=== PATIENT | male | born 1955 | race Caucasian/White ===

== ENCOUNTER 2017-10-19 22:30 | Inpatient (IN) | payer MEDICARE ==
[~2017-10-19] VITALS: Ht 170.2 cm; Wt 63.3 kg
[~2017-10-19 22:30] MED LIST: ACETAMINOPHEN 650 MG SUPP RECTAL PRN; DULO20 PO; FAMO1TAB37 PO; FOSA70TA PO; GABA100C4 PO; HYDR-2374 PO; LORTA5 PO; NALOXONE HCL 0.4 MG/ML AMP IV PUSH PRN; OMEP20TA OR; PREG25 PO; PROCHLORPERAZINE 25 MG SUPP RECTAL PRN; PROM25TA5 PO; SYMB80AE INH; WARF-60 PO; WARF4TAB52 PO; ZOFR4TAB3 SL
[2017-10-19 23:00] VITALS: BP 122/86; PULSE 100; RESP 20; TEMP 96.9; O2SAT 95
[2017-10-19] MEDS: SODIUM CHLOR 0.9% 1000 ML INJ 1,000 ML IV SCH (23:15)
[2017-10-19] MEDS: MORPHINE SULFATE 2 MG/ML SYRINGE IV PUSH PRN (23:24)
[2017-10-19] MEDS: SODIUM CHLORIDE 0.9% FLUSH 10 ML FLUSH IV FLUSH SCH (23:30)
[2017-10-20] MEDS: SODIUM CHLOR 0.9% 1000 ML INJ 1,000 ML IV SCH ×3 (07:00→19:46)
[2017-10-20] MEDS: MORPHINE SULFATE 2 MG/ML SYRINGE IV PUSH PRN ×4 (07:49→22:47)
[2017-10-20 08:00] VITALS: BP 142/61; PULSE 74; RESP 15; TEMP 97.8; O2SAT 93
[2017-10-20 08:52] LABS: AUTOMATED NEUTROPHIL # 2.8 TH/MM3 (1.8-7.7); BASOPHIL % 0.7 % (0.0-2.0); EOSINOPHIL # 0.3 TH/MM3 (0-0.4); EOSINOPHIL % 6.7 % (0.0-4.0); HEMATOCRIT 36.6 % (39.0-51.0); HEMOGLOBIN 11.7 GM/DL (13.0-17.0); LYMPH % 19.8 % (9.0-44.0); LYMPHOCYTE # 0.9 TH/MM3 (1.0-4.8); MEAN CELL VOLUME 92.6 FL (80.0-100.0); MEAN CORPUSCULAR HEMOGLOBIN 29.5 PG (27.0-34.0); MEAN CORPUSCULAR HGB CONC 31.9 % (32.0-36.0); MEAN PLATELET VOLUME 6.6 FL (7.0-11.0); MONO % 9.2 % (0.0-8.0); MONOCYTE # 0.4 TH/MM3 (0-0.9); NEUT % 63.6 % (16.0-70.0); PLATELET COUNT 179 TH/MM3 (150-450); RED BLOOD COUNT 3.95 MIL/MM3 (4.50-5.90); RED CELL DISTRIBUTION WIDTH 16.8 % (11.6-17.2); WHITE BLOOD COUNT 4.4 TH/MM3 (4.0-11.0)
[2017-10-20] MEDS: SODIUM CHLORIDE 0.9% FLUSH 10 ML FLUSH IV FLUSH SCH ×2 (09:00→22:45)
[2017-10-20 09:01] LABS: CHLORIDE 109 MEQ/L (98-107); SODIUM (NA) 139 MEQ/L (136-145)
[2017-10-20 09:04] LABS: CALCIUM 8.1 MG/DL (8.5-10.1); INTERNATIONAL NORMALIZED RATIO 4.6 RATIO; PROTHROMBIN TIME - PATIENT 45.8 SEC (9.8-11.6)
[2017-10-20 09:05] LABS: ALBUMIN 3.2 GM/DL (3.4-5.0); BICARBONATE 21.4 MEQ/L (21.0-32.0); BLOOD UREA NITROGEN 10 MG/DL (7-18); GLUCOSE,RANDOM 84 MG/DL (74-106)
[2017-10-20 09:08] LABS: ALT (GPT) 28 U/L (12-78); AST (GOT) 36 U/L (15-37); CREATININE 0.53 MG/DL (0.60-1.30); GLOMERULAR FILTRATION RATE 157 ML/MIN (>89)
[2017-10-20 09:10] LABS: TOTAL BILIRUBIN ADULT 0.6 MG/DL (0.2-1.0); TOTAL PROTEIN 6.4 GM/DL (6.4-8.2)
[2017-10-20 09:11] LABS: ALKALINE PHOSPHATASE 65 U/L (45-117)
[2017-10-20] MEDS ORDERED: POTASSIUM CHLORIDE 25 MEQ EFFERVESCENT TAB PO ONE (10:00)
[2017-10-20] MEDS ORDERED: PHYTONADIONE 5 MG TAB PO ONE (10:00)
--- NOTE | 2017-10-20 10:05 | PD.CONS ---
HPI History of Present Illness This is a 62 year old admitted on 10/19/17. Patient was in his usual state of health up until 1-2 weeks ago when he noted dysphagia complete with nausea and vomiting. Patient states that he cut his food up into very small pieces and chew a lot but would have some projectile vomiting of food and liquid while trying to eat. Patient is currently on warfarin therapy secondary to aortic valve replacement surgery and is monitored very closely per his PCP. He had a normal INR but when was rechecked in 1 month INR was 8. Patient was being treated per his PCP but was advised to come to the emergency room for further treatment regimen. Patient's last hemoglobin was noted to be 10.9 hematocrit 32.3 on outpatient basis now hemoglobin is 11.7. Previous recent labs show AST at 46 ALT at 34, today on 10/20/17 bilirubin and LFTs are normal. Patient notes alcohol usage approximately 20 years ago now a rare occasional 1 drink on a monthly basis. Patient does note increased Tylenol usage throughout his years. Patient currently denies any diarrhea or constipation, and no rectal bleeding. Patient denies any abdominal pain. Patient has significant history of osteoporosis, degenerative disc disease, COPD , falls, and aortic valvular replacement. Patient does note some mild cuts , with some mild bleeding over the past few days. (Charlotte Sawyer) PFSH Past Medical History DD D Osteoporosis Falls COPD Aortic valve disease Right brain, probable CVA Right groin bleed Inguinal hernias X 2. Currently on long-term Coumadin therapy Past Surgical History Aortic valve replacement Hernias 2 (Charlotte Sawyer) Coded Allergies: No Known Allergies (Unverified Allergy, Unknown, 10/19/17) Medications Administered Medications Medications (Trade) Dose Ordered Sig/Denae Route PRN Reason Start Time Stop Time Status Last Admin Dose Admin Sodium Chloride 1,000 ml @ 100 mls/hr Q10H IV 10/19/17 21:00 10/20/17 07:00 Sodium Chloride (NS Flush) 2 ml BID IV FLUSH 10/19/17 21:00 10/19/17 23:30 Morphine Sulfate (Morphine Inj) 2 mg Q3H PRN IV PUSH pain > 4 10/19/17 23:30 10/20/17 07:49 Family History Valvular heart disease Social History Nonsmoker, non-alcohol for 20 years, no illicit drugs (Charlotte Sawyer) Review of Systems Gastrointestinal: COMPLAINS OF: Difficulty Swallowing Hematologic/lymphatic: COMPLAINS OF: Bruising (Charlotte Sawyer) GI Exam Vitals I&O Vital Signs Date Time Temp Pulse Resp B/P (MAP) Pulse Ox O2 Delivery O2 Flow Rate FiO2 10/19/17 23:00 96.9 100 20 122/86 (98) 95 I/O 10/19/17 10/19/17 10/19/17 10/20/17 10/20/17 10/20/17 07:00 15:00 23:00 07:00 15:00 23:00 Intake Total 0 ml Balance 0 ml Intake Oral 0 ml # Voids 2 # Bowel Movements 0 Laboratory Test 10/20/17 08:44 White Blood Count 4.4 TH/MM3 Red Blood Count 3.95 MIL/MM3 Hemoglobin 11.7 GM/DL Hematocrit 36.6 % Mean Corpuscular Volume 92.6 FL Mean Corpuscular Hemoglobin 29.5 PG Mean Corpuscular Hemoglobin Concent 31.9 % Red Cell Distribution Width 16.8 % Platelet Count 179 TH/MM3 Mean Platelet Volume 6.6 FL Neutrophils (%) (Auto) 63.6 % Lymphocytes (%) (Auto) 19.8 % Monocytes (%) (Auto) 9.2 % Eosinophils (%) (Auto) 6.7 % Basophils (%) (Auto) 0.7 % Neutrophils # (Auto) 2.8 TH/MM3 Lymphocytes # (Auto) 0.9 TH/MM3 Monocytes # (Auto) 0.4 TH/MM3 Eosinophils # (Auto) 0.3 TH/MM3 Basophils # (Auto) 0.0 TH/MM3 CBC Comment DIFF FINAL Differential Comment Prothrombin Time 45.8 SEC Prothromb Time International Ratio 4.6 RATIO Blood Urea Nitrogen 10 MG/DL Creatinine 0.53 MG/DL Random Glucose 84 MG/DL Total Protein 6.4 GM/DL Albumin 3.2 GM/DL Calcium Level 8.1 MG/DL Alkaline Phosphatase 65 U/L Aspartate Amino Transf (AST/SGOT) 36 U/L Alanine Aminotransferase (ALT/SGPT) 28 U/L Total Bilirubin 0.6 MG/DL Sodium Level 139 MEQ/L Potassium Level 3.4 MEQ/L Chloride Level 109 MEQ/L Carbon Dioxide Level 21.4 MEQ/L Anion Gap 9 MEQ/L Estimat Glomerular Filtration Rate 157 ML/MIN Physical Examination HEENT: Pupils round and reactive to light; normocephalic; atraumatic, taking few ice chip without cough NECK: Neck is supple, no JVD CHEST: Mild diminished BS CARDIAC: Regular rate and rhythm ABDOMEN: Soft, flat,nondistended, nontender; no hepatosplenomegaly; bowel sounds are present in all four quadrants. EXTREMITIES: No LE edema. SKIN: Normal; no rash; no jaundice. LIEN SEARCHER: No focal deficits; alert and oriented times three. (Charlotte Sawyer) Assessment and Plan Plan Dysphasia with nausea and vomiting and intolerance of food for the past 1-[address] GI [address] Benjamin and [place] Anemia probable secondary to his chronic disease, current hemoglobin today 11.7 Coagulopathy, patient has been on Coumadin up until yesterday PT INR is now 4.6. Recent AST level noted to be 46 now normalized during this hospital stay Plan Consent for EGD hopefully tomorrow as long as patient's INR is 1.5 or less. Discussed plan of care with patient's attending, receiving vitamin K Nothing by mouth at midnight until PT/INR is evaluated IV hydration continue IV fluids at 100 cc an hour Monitor labs, monitor for any acute bleeding and transfuse as needed IV PPI Anti-emetics Supportive care Patient has been evaluated per myself and Dr. Main, note was done on his behalf (Charlotte Sawyer) Physician Comments Patient seen and examined Agree with above Continue with current supportive care Monitor labs We will need to correct his coagulopathy we will be proceeding with an upper endoscopy with possible dilation tomorrow (Peter Main MD) Charlotte Sawyer Oct 20, 2017 10:05 Peter Main MD Oct 20, 2017 20:23
[2017-10-20] MEDS: GABAPENTIN 100 MG CAP PO SCH ×2 (10:06→22:46)
[2017-10-20] MEDS: DULoxetine HCl DR 20 MG CAP PO SCH (10:06)
[2017-10-20] MEDS: BUDESONIDE-FORMOTEROL 80/4.5 MCG INHALER INH SCH ×2 (10:06→22:48)
[2017-10-20] MEDS: PREGABALIN 25 MG CAP PO SCH ×2 (10:07→22:46)
[2017-10-20] MEDS ORDERED: PANTOPRAZOLE SODIUM 40 MG VIAL IV PUSH SCH (11:00)
--- NOTE | 2017-10-20 11:20 | HHI.HP ---
[facility] Regan Rogers MD Admission Diagnosis Diagnoses: Chief Complaint: Trouble swallowing Travel History International Travel<30 Days: No Contact w/Intl Traveler <30 Da: No Traveled to Known Affected Are: No History of Present Illness This patient is a 62-year-old gentleman with a history of COPD and mechanical aortic valve replacement who came to the emergency room because of progressive dysphagia over the last 2 weeks. He had associated nausea and vomiting and noted some increased vomiting to the point of projectile vomiting of food and liquid. He normally takes warfarin because of an aortic valve replacement which was done in 2012. He had noticed increased bleeding in the gums and the bruising in the skin and had some bleeding on his pillow. He called his primary care doctor and was found to have elevated INR over 8. He still had some bleeding and was not able to take the vitamin K that was prescribed because was unavailable at the pharmacy. His primary care provider urged to come to the hospital for further evaluation. Here his INR is 4.6. Patient's bleeding has subsided somewhat. He has trouble clearing his own secretions and trouble swallowing even now. He notes no chest pain or shortness of breath. He is quite frail and notes that he has lost quite a bit of weight over the last several months. His baseline weight was 172 and he had gotten down to 114 with some improvement of recent weight of 125. Patient is admitted to observation unit for further evaluation. There is no intestinal bleeding and the patient does not endorse any diarrhea or constipation. His pain is minimal at this point. Review of Systems Constitutional: COMPLAINS OF: Fatigue, Weight loss, DENIES: Diaphoretic episodes, Fever, Weight gain, Chills, Dizziness, Change in appetite, Night Sweats Endocrine: DENIES: Heat/cold intolerance, Polydipsia, Polyuria, Polyphagia Eyes: DENIES: Blurred vision, Diplopia, Eye inflammation, Eye pain, Vision loss , Photosensitivity, Double Vision Ears, nose, mouth, throat: COMPLAINS OF: Epistaxis, DENIES: Tinnitus, Hearing loss, Vertigo, Nasal discharge, Oral lesions, Throat pain, Hoarseness, Ear Pain , Running Nose, Sinus Pain, Toothache, Odynophagia Respiratory: DENIES: Apneas, Cough, Snoring, Wheezing, Hemoptysis, Sputum production, Shortness of breath Cardiovascular: DENIES: Chest pain, Palpitations, Syncope, Dyspnea on Exertion , PND, Lower Extremity Edema, Orthopnea, Claudication Gastrointestinal: DENIES: Abdominal pain, Black stools, Bloody stools, Constipation, Diarrhea, Nausea, Vomiting, Difficulty Swallowing, Anorexia Genitourinary: DENIES: Sexual dysfunction, Urinary frequency, Urinary incontinence, Urgency, Hematuria, Dysuria, Nocturia, Penile Discharge, Testicular Pain, Testicular Swelling Musculoskeletal: COMPLAINS OF: Joint pain, Back pain, DENIES: Muscle aches, Stiffness, Joint Swelling, Neck pain Integumentary: DENIES: Abnormal pigmentation, Nail changes, Pruritus, Rash Hematologic/lymphatic: COMPLAINS OF: Bruising, DENIES: Lymphadenopathy Immunologic/allergic: DENIES: Eczema, Urticaria Neurologic: DENIES: Abnormal gait, Headache, Localized weakness, Paresthesias, Seizures, Speech Problems, Tremor, Poor Balance Psychiatric: DENIES: Anxiety, Confusion, Mood changes, Depression, Hallucinations, Agitation, Suicidal Ideation, Homicidal Ideation, Delusions Except as stated in HPI: all other systems reviewed are Neg Past Family Social History Past Medical History COPD Back pain Mechanical aortic valve replaced 2012 History of intracranial bleed in 2014 while on Coumadin Chronic numbness of the left side Osteoporosis and neuropathy Past Surgical History Aortic valve replacement Hernias 2 Reported Medications Reviewed in the EMR Allergies: Coded Allergies: No Known Allergies (Unverified Allergy, Unknown, 10/19/17) Active Ordered Medications Reviewed in the EMR Family History mother had diabetes and from coronary disease at 84, father from cardiac issues at a 3 needed cardiac valve replacement Social History No tobacco or alcohol dependency Lives with his Physical Exam Vital Signs Vital Signs Date Time Temp Pulse Resp B/P (MAP) Pulse Ox O2 Delivery O2 Flow Rate FiO2 10/20/17 08:00 97.8 74 15 142/61 (88) 93 10/19/17 23:00 96.9 100 20 122/86 (98) 95 Physical Exam GENERAL: This is a well-nourished, well-developed patient, in no apparent distress. SKIN: No rashes, ecchymoses or lesions. Cool and dry. HEAD: Atraumatic. Normocephalic. No temporal or scalp tenderness. EYES: Pupils equal round and reactive. Extraocular motions intact. No scleral icterus. No injection or drainage. ENT: Nose without bleeding, purulent drainage or septal hematoma. Throat without erythema, tonsillar hypertrophy or exudate. Uvula midline. Airway patent. NECK: Trachea midline. No JVD or lymphadenopathy. Supple, nontender, no meningeal signs. CARDIOVASCULAR: Regular rate and rhythm without murmurs, gallops, or rubs. RESPIRATORY: Clear to auscultation. Breath sounds equal bilaterally. No wheezes , rales, or rhonchi. GASTROINTESTINAL: Abdomen soft, non-tender, nondistended. No hepato-splenomegaly , or palpable masses. No guarding. MUSCULOSKELETAL: Extremities without clubbing, cyanosis, or edema. No joint tenderness, effusion, or edema noted. No calf tenderness. Negative Homans sign bilaterally. NEUROLOGICAL: Awake and alert. Cranial nerves II through XII intact. Motor and sensory grossly within normal limits. Five out of 5 muscle strength in all muscle groups. Normal speech. Laboratory Laboratory Tests Test 10/20/17 08:44 White Blood Count 4.4 Red Blood Count 3.95 Hemoglobin 11.7 Hematocrit 36.6 Mean Corpuscular Volume 92.6 Mean Corpuscular Hemoglobin 29.5 Mean Corpuscular Hemoglobin Concent 31.9 Red Cell Distribution Width 16.8 Platelet Count 179 Mean Platelet Volume 6.6 Neutrophils (%) (Auto) 63.6 Lymphocytes (%) (Auto) 19.8 Monocytes (%) (Auto) 9.2 Eosinophils (%) (Auto) 6.7 Basophils (%) (Auto) 0.7 Neutrophils # (Auto) 2.8 Lymphocytes # (Auto) 0.9 Monocytes # (Auto) 0.4 Eosinophils # (Auto) 0.3 Basophils # (Auto) 0.0 CBC Comment DIFF FINAL Differential Comment Prothrombin Time 45.8 Prothromb Time International Ratio 4.6 Blood Urea Nitrogen 10 Creatinine 0.53 Random Glucose 84 Total Protein 6.4 Albumin 3.2 Calcium Level 8.1 Alkaline Phosphatase 65 Aspartate Amino Transf (AST/SGOT) 36 Alanine Aminotransferase (ALT/SGPT) 28 Total Bilirubin 0.6 Sodium Level 139 Potassium Level 3.4 Chloride Level 109 Carbon Dioxide Level 21.4 Anion Gap 9 Estimat Glomerular Filtration Rate 157 Result Diagram: 10/20/1744 10/20/1744 Caprini VTE Risk Assessment Caprini VTE Risk Assessment: Mod/High Risk (score >= 2) VTE Pharm Contraindication: Coagulopathy,INR elevated Caprini Risk Assessment Model Point Value = 1 Point Value = 2 Point Value = 3 Point Value = 5 Age 41-60 Minor surgery BMI > 25 kg/m2 Swollen legs Varicose veins or History of unexplained or recurrent spontaneous Oral contraceptives or hormone replacement Sepsis (< 1 month) Serious lung disease, including pneumonia (< 1 month) Abnormal pulmonary function Acute myocardial infarction Congestive heart failure (< 1 month) History of inflammatory bowel disease Medical patient at bed rest Age 61-74 Arthroscopic surgery Major open surgery (> 45 min) Laparoscopic surgery (> 45 min) Malignancy Confined to bed (> 72 hours) Immobilizing plaster cast Central venous access Age >= 75 History of VTE Family history of VTE Factor V Leiden Prothrombin [id number] Lupus anticoagulant Anticardiolipin antibodies Elevated serum homocysteine Heparin-induced thrombocytopenia Other congenital or acquired thrombophilia Stroke (< 1 month) Elective arthroplasty Hip, pelvis, or leg fracture Acute spinal cord injury (< 1 month) Prophylaxis Regimen Total Risk Factor Score Risk Level Prophylaxis Regimen 0-1 Low Early ambulation 2 Moderate Order ONE of the following: *Sequential Compression Device (SCD) *Heparin 5000 units SQ BID 3-4 Higher Order ONE of the following medications: *Heparin 5000 units SQ TID *Enoxaparin/Lovenox 40 mg SQ daily (WT < 150 kg, CrCl > 30 mL/min) *Enoxaparin/Lovenox 30 mg SQ daily (WT < 150 kg, CrCl > 10-29 mL/min) *Enoxaparin/Lovenox 30 mg SQ BID (WT < 150 kg, CrCl > 30 mL/min) AND/OR *Sequential Compression Device (SCD) 5 or more Highest Order ONE of the following medications: *Heparin 5000 units SQ TID (Preferred with Epidurals) *Enoxaparin/Lovenox 40 mg SQ daily (WT < 150 kg, CrCl > 30 mL/min) *Enoxaparin/Lovenox 30 mg SQ daily (WT < 150 kg, CrCl > 10-29 mL/min) *Enoxaparin/Lovenox 30 mg SQ BID (WT < 150 kg, CrCl > 30 mL/min) AND *Sequential Compression Device (SCD) Assessment and Plan Problem List: (1) Dysphagia ICD Code: R13.10 - Dysphagia, unspecified Plan: Gastroenterology workup pending for endoscopy Continue Protonix Follow-up CT chest/abdomen (2) Weight loss ICD Code: R63.4 - Abnormal weight loss Plan: Likely due to poor oral intake rule out malignancy (3) Aortic valve replaced ICD Code: Z95.2 - Presence of prosthetic heart valve Plan: We will add p.o. vitamin K and follow closely We will use heparin as needed for this patient with mechanical valve (4) Warfarin toxicity ICD Code: T45.511A - Poisoning by anticoagulants, accidental (unintentional), initial encounter Plan: With bleeding in the skin, nose and gums INR 4.6 We will follow after vitamin K and use heparin as needed (5) Hypokalemia ICD Code: E87.6 - Hypokalemia Plan: Replace and follow trend Code Status full code Discussed Condition With Patient, GI team Kiana Patel RN, MD Oct 20, 2017 11:20
[2017-10-20] MEDS ORDERED: DIATRIZOATE MEGLUM/DIATRIZOATE SOD 9 ML CUP PO ONE (11:45)
[2017-10-20] MEDS ORDERED: IOHEXOL 350 MG/ML 10 ML VIAL (for RAD DIAG) IVCONTRAST ONE (13:01)
--- NOTE | 2017-10-20 14:31 | RADRPT ---
EXAM DATE/TIME: 10/20/2017 12:48 [facility] COMPARISON: No previous studies available for comparison. INDICATIONS : Possible mass, Dysphagia with nausea and vomiting for 2 weeks IV CONTRAST: 9 cc Omnipaque 350 (iohexol) IV ORAL CONTRAST: Prescribed oral contrast ingested. RADIATION DOSE: 10.91 CTDIvol (mGy) ; Combined studies - Thorax/Abdomen/Pelvis MEDICAL HISTORY : Chronic obstructive pulmonary disease. Hepatitis C. SURGICAL HISTORY : CABG Aortic valve replacement, inguinal hernial ENCOUNTER: Subsequent ACUITY: 2 weeks PAIN SCALE: 0/10 LOCATION: Abdominal TECHNIQUE: Volumetric scanning of the chest was performed. Using automated exposure control and adjustment of t he mA and/or kV according to patient size, radiation dose was kept as low as reasonably achievable to obtain optimal diagnostic quality images. DICOM format image data is available electronically for review and comparison. Follow-up recommendations for detected pulmonary nodules are based at a minimum on nodule size and pa tient risk factors according to Fleischner Society Guidelines. FINDINGS: LUNGS: The lungs are symmetrically aerated. There are bilateral linear areas of infiltrate or scarring in t he costophrenic angles bilaterally which contains some air bronchograms. The mid and upper lungs are clear. PLEURA: There is no pleural thickening or pleural effusion. MEDIASTINUM: The heart and great vessels demonstrate no acute abnormality. There is no mediastinal or hilar lymph adenopathy. AXILLAE: Within normal limits. No lymphadenopathy. SKELETAL: Mild curvature of the thoracic spine towards the right and multiple diffuse compression deformities t hroughout the thoracic spine. MISCELLANEOUS: Evidence of medial sternotomy and aortic valve surgery. CONCLUSION: 1. No evidence of mediastinal adenopathy. 2. Mild upper right thoracic curvature and multiple compression deformities throughout the thoracic s pine. 3. Bilateral lower lung linear areas of infiltrate or atelectasis. Isidro Mcclure MD on October 20, 2017 at 14:26 Board Certified Radiologist. This report was verified electronically.
[2017-10-20 16:00] VITALS: BP 133/60; PULSE 92; RESP 18; TEMP 98.1; O2SAT 94
--- NOTE | 2017-10-20 16:39 | RADRPT ---
EXAM DATE/TIME: 10/20/2017 12:48 [facility] COMPARISON: CT THORAX W CONTRAST, October 20, 2017, 12:48. CT ABDOMEN & PELVIS W CONTRAST, February 13, 2014, 0:06. INDICATIONS : Possible mass, Dysphagia with nausea and vomitng for 2 weeks IV CONTRAST: 90 cc Omnipaque 350 (iohexol) IV ; Cumulative dose for multiple exams. ORAL CONTRAST: Prescribed oral contrast ingested. RADIATION DOSE: 10.91 CTDIvol (mGy) ; Combined studies - Thorax/Abdomen/Pelvis MEDICAL HISTORY : Chronic obstructive pulmonary disease. Hepatitis C. SURGICAL HISTORY : CABG Aortic valve replacement. Inguinal hernia repair. ENCOUNTER: Initial ACUITY: 2 weeks PAIN SCALE: 5/10 LOCATION: Abdomen. TECHNIQUE: Volumetric scanning of the abdomen and pelvis was performed. Using automated exposure control and ad justment of the mA and/or kV according to patient size, radiation dose was kept as low as reasonably achievable to obtain optimal diagnostic quality images. DICOM format image data is available electro nically for review and comparison. FINDINGS: LIVER: Homogeneous density without lesion. There is no dilation of the biliary tree. A gallbladder is prom inently distended. No calcified gallstones. SPLEEN: Normal size without lesion. PANCREAS: Of the pancreas is prominent with normal dimension of the pancreatic duct. There are several hemocli ps present superior to the head of the pancreas which are from an unknown surgical procedure. There appears to be some narrowing of the duodenal C-loop as it courses about the pancreas and the lumen of the C-loop is not well seen. The stomach is not distended. There is a cystic structure which the l ateral and posterior to the duodenal C-loop measuring 3.5 cm which could possibly arise from the head of the pancreas. The margins are smooth and mean CT density is 38 Hounsfield units. KIDNEYS: Normal in size and shape. There is no mass, stone or hydronephrosis. The 3 cm simple cyst exophytic from the midpole of the right kidney is stable from prior. ADRENAL GLANDS: Within normal limits. VASCULAR: There is no aortic aneurysm. BOWEL/MESENTERY: Oral contrast passes through to the distal small bowel. No dilated loops of jejunum or ileum. Moder ate amount of stool throughout the colon and there appears to be a redundant loop of sigmoid colon in the presacral region. ABDOMINAL WALL: Within normal limits. RETROPERITONEUM: There is no lymphadenopathy. BLADDER: No wall thickening or mass. REPRODUCTIVE: Within normal limits. INGUINAL: There is no lymphadenopathy or hernia. MUSCULOSKELETAL: Diffuse osteopenia. Advanced degenerative changes in the posterior elements of the lower lumbar spin e. CONCLUSION: 1. There is hemoclips in the periportal region from unknown surgical procedure. The head of the panc reas appears enlarged and there is a cystic structure posterior to the head of the pancreas which is of uncertain significance and organ of origin. The duodenal C-loop is not well seen as it courses ab out the pancreas and cannot clear the duodenal C-loop on the basis of CT. 2. The gallbladder is distended, but no gallstones are seen. The visualized portion of the common bi le duct is normal dimension. 3. Constipation. No dilated loops of jejunum or ileum. Oral contrast does pass through two th[address] o [address] through the small bowel. Isidro Mcclure MD on October 20, 2017 at 16:26 Board Certified Radiologist. This report was verified electronically.
[2017-10-20 20:00] VITALS: BP 111/59; PULSE 69; RESP 20; TEMP 96.7; O2SAT 95
[2017-10-21] VITALS (10 sets, daily range): BP systolic 111–154; BP diastolic 59–82; PULSE 56–86; RESP 14–18; TEMP 95.3–99.2; O2SAT 76–97
[2017-10-21] MEDS: MORPHINE SULFATE 2 MG/ML SYRINGE IV PUSH PRN ×5 (02:21→20:44)
[2017-10-21] MEDS: SODIUM CHLOR 0.9% 1000 ML INJ 1,000 ML IV SCH (06:51)
[2017-10-21 07:13] LABS: INTERNATIONAL NORMALIZED RATIO 1.3 RATIO; PROTHROMBIN TIME - PATIENT 12.7 SEC (9.8-11.6)
[2017-10-21] MEDS ORDERED: PROMETHAZINE HCL 25 MG TAB PO PRN (08:15)
--- NOTE | 2017-10-21 08:16 | PD.PROCEDR ---
GI Procedure PROCEDURE PERFORMED EGD with biopsy INDICATION FOR PROCEDURE Dysphagia, nausea and vomiting PROCEDURE: The procedure, risks and benefits were discussed with Patient/POA and informed consent was obtained. Anesthesia sedated Patient with Diprivan. Patient was placed in the left lateral decubitus position. EGD: The Pentax videoscope was introduced through the oropharynx and advanced to the second portion of the duodenum under direct visualization. Retroflexion was performed in the stomach. FINDINGS: The esophagus this appeared to be unremarkable and within normal limits biopsies were taken for further evaluation The stomach this to appear to be unremarkable and within normal limits The duodenum this to appear to be unremarkable with normal limits ESTIMATED BLOOD LOSS: None SPECIMENS REMOVED: Esophageal biopsy COMPLICATIONS: None IMPRESSION: Normal EGD PLAN: Await biopsies Anti-emetics Regarding his pancreatic abnormality noted on CT and the possible pancreatic head cyst the patient will require endoscopic ultrasound this can be done on outpatient basis Patient may resume his anticoagulation We will check barium swallow to further evaluate dysphagia/nausea and vomiting Peter Main MD Oct 21, 2017 08:16
[2017-10-21] MEDS: BUDESONIDE-FORMOTEROL 80/4.5 MCG INHALER INH SCH ×2 (09:00→20:08)
[2017-10-21] MEDS: PREGABALIN 25 MG CAP PO SCH ×2 (09:06→20:09)
[2017-10-21] MEDS: DULoxetine HCl DR 20 MG CAP PO SCH (09:06)
[2017-10-21] MEDS: SODIUM CHLORIDE 0.9% FLUSH 10 ML FLUSH IV FLUSH SCH ×2 (09:06→20:09)
[2017-10-21] MEDS: GABAPENTIN 100 MG CAP PO SCH ×2 (09:06→20:09)
[2017-10-21] MEDS ORDERED: HEPARIN-D5W 25,000 U/250 ML 250 ML IV SCH (10:00)
[2017-10-21 10:11] LABS: HEMATOCRIT 32.3 % (39.0-51.0); MEAN CELL VOLUME 92.3 FL (80.0-100.0); MEAN CORPUSCULAR HEMOGLOBIN 31.5 PG (27.0-34.0); MEAN CORPUSCULAR HGB CONC 34.2 % (32.0-36.0); MEAN PLATELET VOLUME 6.9 FL (7.0-11.0); PLATELET COUNT 172 TH/MM3 (150-450); RED BLOOD COUNT 3.51 MIL/MM3 (4.50-5.90); RED CELL DISTRIBUTION WIDTH 17.3 % (11.6-17.2); WHITE BLOOD COUNT 4.2 TH/MM3 (4.0-11.0)
[2017-10-21 10:23] LABS: INTERNATIONAL NORMALIZED RATIO 1.2 RATIO; PROTHROMBIN TIME - PATIENT 12.2 SEC (9.8-11.6)
--- NOTE | 2017-10-21 11:00 | RADRPT ---
EXAM DATE/TIME: 10/21/2017 08:18 [facility] COMPARISON: No previous studies available for comparison. INDICATIONS : Dysphagia. FLUORO TIME: 1.0 minutes IMAGE COUNT: 18 CONTRAST: 1. E-Z HD Barium Sulfate (98% w/w) 2. Liquid E-Z Paque Barium Sulfate (60% w/v, 41% w.w) MEDICAL HISTORY : Chronic obstructive pulmonary disease. Hepatitis C. SURGICAL HISTORY : CABG Aortic valve replacement, inguinal hernial ENCOUNTER: Subsequent ACUITY: 2 weeks PAIN SCORE: 0/10 LOCATION: esophagus FINDINGS: There is a moderate nonspecific esophageal motility disorder. Mild stricture noted in the distal esop hagus. No definite ulceration. Previous sternotomy and valve replacement. CONCLUSION: 1. Mild stricture of the distal esophagus of unknown etiology. 2. Moderate nonspecific esophageal motility disorder. Clifton Bacon MD on October 21, 2017 at 10:57 Board Certified Radiologist. This report was verified electronically.
--- NOTE | 2017-10-21 11:05 | HHI.PR ---
Subjective Remarks Patient seen and evaluated today for severe malnourishment and dysphasia. No findings on endoscopy CT of the abdomen and chest are within normal limits. Barium swallow pending. Patient has an INR 1.3 today and heparin has been started. Objective Vitals Vital Signs Date Time Temp Pulse Resp B/P (MAP) Pulse Ox O2 Delivery O2 Flow Rate FiO2 10/21/17 10:20 18 10/21/17 08:51 63 16 134/66 (88) 94 Room Air 10/21/17 08:38 72 16 135/75 (95) 94 10/21/17 08:23 99.1 83 16 146/82 (103) 94 Room Air 10/21/17 08:00 96.2 56 18 153/68 (96) 96 10/21/17 05:30 96.8 62 16 116/63 96 10/21/17 05:11 97.7 70 17 116/59 97 10/21/17 04:45 96.8 66 16 111/62 96 10/21/17 04:13 96.2 65 17 124/67 97 10/21/17 03:57 97.2 66 117/64 94 10/21/17 00:00 96.1 73 18 124/62 (82) 95 10/20/17 20:00 96.7 69 20 111/59 (76) 95 10/20/17 16:00 98.1 92 18 133/60 (84) 94 I/O 10/20/17 10/20/17 10/20/17 10/21/17 10/21/17 10/21/17 07:00 15:00 23:00 07:00 15:00 23:00 Intake Total 0 ml 1000 ml 2204 ml 300 ml Output Total 450 ml Balance 0 ml 550 ml 2204 ml 300 ml Intake Oral 0 ml IV Total 1000 ml 1000 ml FFP 1164 ml Blood Product IV Normal Saline Flush 40 ml Other 300 ml Output Urine Total 450 ml # Voids 2 # Bowel Movements 0 0 Result Diagram: 10/21/17 0945 10/20/17 0844 Imaging Last Impressions Chest CT 10/20/17 0000 Signed Impressions: Service Date/Time: October 12:48 - CONCLUSION: 1. No evidence of mediastinal adenopathy. 2. Mild upper right thoracic curvature and multiple compression deformities throughout the thoracic spine. 3. Bilateral lower lung linear areas of infiltrate or atelectasis. Isidro Mcclure MD Abdomen/Pelvis CT 10/20/17 0000 Signed Impressions: Service Date/Time: October 12:48 - CONCLUSION: 1. There is hemoclips in the periportal region from unknown surgical procedure. The head of the pancreas appears enlarged and there is a cystic structure posterior to the head of the pancreas which is of uncertain significance and organ of origin. The duodenal C-loop is not well seen as it courses about the pancreas and cannot clear the duodenal C-loop on the basis of CT. 2. The gallbladder is distended, but no gallstones are seen. The visualized portion of the common bile duct is normal dimension. 3. Constipation. No dilated loops of jejunum or ileum. Oral contrast does pass through two thirds of the way through the small bowel. Isidro Mcclure MD Objective Remarks GENERAL: This is a well-developed patient, very wasted and cachectic male CARDIOVASCULAR: Regular rate and rhythm without gallops, or rubs. There is a midsystolic click RESPIRATORY: Clear to auscultation. Breath sounds equal bilaterally. No wheezes , rales, or rhonchi. GASTROINTESTINAL: Abdomen soft, non-tender, nondistended. Normal active bowel sounds MUSCULOSKELETAL: Extremities without clubbing, cyanosis, or edema. NEURO: Alert & Oriented x4 to person, place, time, situation. Moves all ext x4 Procedures Upper and lower endoscopy: Normal A/P Problem List: (1) Dysphagia ICD Code: R13.10 - Dysphagia, unspecified Plan: Etiology unclear Follow-up barium swallow DC proton pump inhibitor (2) Weight loss ICD Code: R63.4 - Abnormal weight loss Plan: No evidence of malignancy at this time Follow-up as an outpatient for pancreatic abnormalities per GI team We will consult dietitian for severe malnourishment (3) Aortic valve replaced ICD Code: Z95.2 - Presence of prosthetic heart valve (4) Warfarin toxicity ICD Code: T45.511A - Poisoning by anticoagulants, accidental (unintentional), initial encounter Plan: Appears resolved after correction INR 1.3 today Heparin drip plus warfarin (5) Hypokalemia ICD Code: E87.6 - Hypokalemia Plan: Replace and follow trend Discharge Planning dc home 1-2 days Kiana Ashley MD Oct 21, 2017 11:05
[2017-10-21 11:56] LABS: BICARBONATE 28.6 MEQ/L (21.0-32.0); CALCIUM 8.6 MG/DL (8.5-10.1)
[2017-10-21 12:00] LABS: CREATININE 0.55 MG/DL (0.60-1.30)
[2017-10-21] MEDS ORDERED: HEPARIN SODIUM - IV 10,000 UNITS/10 ML VIAL IV PRN ×2 (15:15)
--- NOTE | 2017-10-21 16:09 | EKG ---
Date Performed: 10/21/2017 Time Performed: 07:55:49 PTAGE: 62 years EKG: Sinus rhythm WITH FREQUENT SUPRAVENTRICULAR PREMATURE COMPLEXES SEPTAL MYOCARDIAL INFARCTION ABNORMAL ECG PREVIOUS TRACING : 02/04/2015 11.27 No significant change from previous tracing noted. DOCTOR: Jonatan Simpson Interpretating Date/Time 10/21/2017 16:08:42
[2017-10-21] MEDS: WARFARIN SOD 2 MG TAB PO SCH (16:29)
[2017-10-21] MEDS: SODIUM CHLORIDE 0.9% FLUSH 10 ML FLUSH IV FLUSH PRN (20:44)
[2017-10-22 00:31] VITALS: BP 118/64; PULSE 75; RESP 16; TEMP 97.8; O2SAT 92
[2017-10-22] MEDS: MORPHINE SULFATE 2 MG/ML SYRINGE IV PUSH PRN ×6 (02:03→21:37)
[2017-10-22] MEDS: SODIUM CHLORIDE 0.9% FLUSH 10 ML FLUSH IV FLUSH PRN (06:11)
[2017-10-22 06:53] LABS: HEMATOCRIT 32.3 % (39.0-51.0); HEMOGLOBIN 10.7 GM/DL (13.0-17.0); MEAN CORPUSCULAR HEMOGLOBIN 30.7 PG (27.0-34.0); MEAN PLATELET VOLUME 7.5 FL (7.0-11.0); PLATELET COUNT 170 TH/MM3 (150-450); RED BLOOD COUNT 3.47 MIL/MM3 (4.50-5.90); WHITE BLOOD COUNT 5.2 TH/MM3 (4.0-11.0)
[2017-10-22 07:50] VITALS: BP 122/70; PULSE 68; RESP 20; TEMP 96.2; O2SAT 92
[2017-10-22] MEDS: SODIUM CHLORIDE 0.9% FLUSH 10 ML FLUSH IV FLUSH SCH ×2 (09:53→20:05)
[2017-10-22] MEDS: DULoxetine HCl DR 20 MG CAP PO SCH (09:53)
[2017-10-22] MEDS: BUDESONIDE-FORMOTEROL 80/4.5 MCG INHALER INH SCH ×2 (09:53→20:04)
[2017-10-22] MEDS: GABAPENTIN 100 MG CAP PO SCH ×2 (09:53→20:05)
[2017-10-22] MEDS: PREGABALIN 25 MG CAP PO SCH ×2 (09:53→20:05)
--- NOTE | 2017-10-22 10:08 | HHI.GIFU ---
Subjective Remarks Pt is resting in bed, doing good today denies dysphagia, nausea, vomiting or abd pain this morning. (Kathe Ahn) Objective Vitals I&O Vital Signs Date Time Temp Pulse Resp B/P (MAP) Pulse Ox O2 Delivery O2 Flow Rate FiO2 10/22/17 07:11 20 10/22/17 04:11 10/22/17 00:31 97.8 75 16 118/64 (82) 92 10/21/17 21:09 18 10/21/17 20:30 98.1 84 18 116/69 (85) 95 10/21/17 16:52 95.3 76 14 154/73 (100) 76 10/21/17 12:00 99.2 86 14 152/82 (105) 95 I/O 10/21/17 10/21/17 10/21/17 10/22/17 10/22/17 10/22/17 07:00 15:00 23:00 07:00 15:00 23:00 Intake Total 2204 ml 600 ml 717 ml Balance 2204 ml 600 ml 717 ml Intake Oral 300 ml 717 ml IV Total 1000 ml FFP 1164 ml Blood Product IV Normal Saline Flush 40 ml Other 300 ml # Voids 10 2 # Bowel Movements 1 Laboratory Laboratory Tests Test 10/21/17 17:48 10/21/17 23:30 10/22/17 05:25 Activated Partial Thromboplast Time 46.5 44.6 48.3 White Blood Count 5.2 Red Blood Count 3.47 Hemoglobin 10.7 Hematocrit 32.3 Mean Corpuscular Volume 93.0 Mean Corpuscular Hemoglobin 30.7 Mean Corpuscular Hemoglobin Concent 33.0 Red Cell Distribution Width 17.0 Platelet Count 170 Mean Platelet Volume 7.5 Imaging Last Impressions Barium Swallow X-Ray 10/21/17 0000 Signed Impressions: Service Date/Time: Saturday, October 21, 2017 08:18 - CONCLUSION: 1. Mild stricture of the distal esophagus of unknown etiology. 2. Moderate nonspecific esophageal motility disorder. Clifton Bacon MD Chest CT 10/20/17 0000 Signed Impressions: Service Date/Time: October 12:48 - CONCLUSION: 1. No evidence of mediastinal adenopathy. 2. Mild upper right thoracic curvature and multiple compression deformities throughout the thoracic spine. 3. Bilateral lower lung linear areas of infiltrate or atelectasis. Isidro Mcclure MD Abdomen/Pelvis CT 10/20/17 0000 Signed Impressions: Service Date/Time: October 12:48 - CONCLUSION: 1. There is hemoclips in the periportal region from unknown surgical procedure. The head of the pancreas appears enlarged and there is a cystic structure posterior to the head of the pancreas which is of uncertain significance and organ of origin. The duodenal C-loop is not well seen as it courses about the pancreas and cannot clear the duodenal C-loop on the basis of CT. 2. The gallbladder is distended, but no gallstones are seen. The visualized portion of the common bile duct is normal dimension. 3. Constipation. No dilated loops of jejunum or ileum. Oral contrast does pass through two thirds of the way through the small bowel. Isidro Mcclure MD Physical Exam HEENT: Pupils round and reactive to light; normocephalic; atraumatic; CHEST: Chest is clear to auscultation and percussion. CARDIAC: Regular rate and rhythm with no murmur gallop or rubs. ABDOMEN: Soft, nondistended, nontender; no hepatosplenomegaly; bowel sounds are present in all four quadrants. EXTREMITIES: No clubbing, cyanosis, or edema. SKIN: Normal; no rash; no jaundice. ARMATURE BALANCER: No focal deficits; alert and oriented times three. (Kathe Ahn) Assessment and Plan Plan Dysphasia with nausea and vomiting and intolerance of food for the past 1-[address] GI doctor [address]. Benjamin and [place] Anemia probable secondary to his chronic disease, current hemoglobin today 11.7 Coagulopathy, patient has been on Coumadin up until yesterday PT INR is now 4.6. Recent AST level noted to be 46 now normalized during this hospital stay 10/22/17 S/p Normal EGD on 10/21/17, bx pending , BS 10/21/17 showed mild stricture of the distal esophagus of unknown etiology, moderate nonspecific esophageal dysmotility disorder Seen by ST who recommended [facility] soft and thin liquids CT on 10/20/17 abnormal finding in the head of the pancreas. Plan Diet per ST recommendations Await bx Will need EUS as an OP Gi will sign off Patient has been evaluated per myself and note was done on his behalf (Kathe Ahn) Physician Comments Seen and examined with ANDRES, doing well. Advised to fu with GI for pancreatic EUS. Given pt. number to call. Will sign off, fu as outpt. Thank you (Mason Rondon MD) Kathe Ahn Oct 22, 2017 10:08 Mason Rondon MD Oct 22, 2017 17:44
[2017-10-22 10:33] LABS: INTERNATIONAL NORMALIZED RATIO 1.2 RATIO; PROTHROMBIN TIME - PATIENT 12.1 SEC (9.8-11.6)
--- NOTE | 2017-10-22 11:12 | HHI.PR ---
Subjective Remarks Patient seen and evaluated in follow-up for dysphasia and weight loss with malnutrition. Doing well. Discussed with GI team who recommended continued medical management. INR still subtherapeutic. Patient will do well with Lovenox and Coumadin Objective Vitals Vital Signs Date Time Temp Pulse Resp B/P (MAP) Pulse Ox O2 Delivery O2 Flow Rate FiO2 10/22/17 07:50 96.2 68 20 122/70 (87) 92 10/22/17 07:11 20 10/22/17 04:11 10/22/17 00:31 97.8 75 16 118/64 (82) 92 10/21/17 21:09 18 10/21/17 20:30 98.1 84 18 116/69 (85) 95 10/21/17 16:52 95.3 76 14 154/73 (100) 76 10/21/17 12:00 99.2 86 14 152/82 (105) 95 I/O 10/21/17 10/21/17 10/21/17 10/22/17 10/22/17 10/22/17 07:00 15:00 23:00 07:00 15:00 23:00 Intake Total 2204 ml 600 ml 717 ml Balance 2204 ml 600 ml 717 ml Intake Oral 300 ml 717 ml IV Total 1000 ml FFP 1164 ml Blood Product IV Normal Saline Flush 40 ml Other 300 ml # Voids 10 2 # Bowel Movements 1 Result Diagram: 10/22/17 0525 10/21/17 0945 Objective Remarks GENERAL: This is a well-developed patient, very wasted and cachectic male CARDIOVASCULAR: Regular rate and rhythm without gallops, or rubs. There is a midsystolic click RESPIRATORY: Clear to auscultation. Breath sounds equal bilaterally. No wheezes , rales, or rhonchi. GASTROINTESTINAL: Abdomen soft, non-tender, nondistended. Normal active bowel sounds MUSCULOSKELETAL: Extremities without clubbing, cyanosis, or edema. NEURO: Alert & Oriented x4 to person, place, time, situation. Moves all ext x4 Procedures Upper and lower endoscopy: Normal A/P Problem List: (1) Dysphagia ICD Code: R13.10 - Dysphagia, unspecified Plan: Barium swallow does show some stricture Mechanical diet tolerated Supplementation appreciated and nutritional consult obtained (2) Weight loss ICD Code: R63.4 - Abnormal weight loss Plan: No evidence of malignancy at this time Follow-up as an outpatient for pancreatic abnormalities per GI team Dietitian consult appreciated (3) Aortic valve replaced ICD Code: Z95.2 - Presence of prosthetic heart valve Plan: Continue with Lovenox/warfarin goal INR greater than 2-1/2 (4) Warfarin toxicity ICD Code: T45.511A - Poisoning by anticoagulants, accidental (unintentional), initial encounter Plan: Appears resolved after correction INR 1.2 Discharge Planning DC home when INR therapeutic for mechanical aortic valve Kiana Ashley MD Oct 22, 2017 11:12
[2017-10-22 11:50] VITALS: BP 104/64; PULSE 76; RESP 20; TEMP 96.6; O2SAT 94
[2017-10-22] MEDS: ENOXAPARIN SODIUM 60 MG/0.6 ML SYRINGE SQ SCH ×2 (12:10→23:47)
[2017-10-22 15:50] VITALS: BP 107/67; PULSE 67; RESP 20; TEMP 96.5; O2SAT 94
[2017-10-22] MEDS: WARFARIN SOD 2 MG TAB PO SCH (16:40)
[2017-10-22 21:11] VITALS: BP 114/62; PULSE 69; RESP 16; TEMP 97.8; O2SAT 94
[2017-10-23] MEDS: MORPHINE SULFATE 2 MG/ML SYRINGE IV PUSH PRN ×7 (00:30→22:01)
[2017-10-23 00:57] VITALS: BP 120/57; PULSE 55; RESP 18; TEMP 97.9; O2SAT 94
[2017-10-23 07:50] VITALS: BP 102/64; PULSE 71; RESP 20; TEMP 96; O2SAT 92
[2017-10-23 08:09] LABS: INTERNATIONAL NORMALIZED RATIO 1.1 RATIO; PROTHROMBIN TIME - PATIENT 10.9 SEC (9.8-11.6)
[2017-10-23] MEDS: PREGABALIN 25 MG CAP PO SCH ×2 (08:57→22:02)
[2017-10-23] MEDS: DULoxetine HCl DR 20 MG CAP PO SCH (08:57)
[2017-10-23] MEDS: GABAPENTIN 100 MG CAP PO SCH ×2 (08:57→22:02)
[2017-10-23] MEDS: SODIUM CHLORIDE 0.9% FLUSH 10 ML FLUSH IV FLUSH SCH ×2 (08:58→22:02)
[2017-10-23] MEDS: BUDESONIDE-FORMOTEROL 80/4.5 MCG INHALER INH SCH ×2 (08:58→22:02)
[2017-10-23 11:50] VITALS: BP 135/83; PULSE 80; RESP 20; TEMP 97.3; O2SAT 94
[2017-10-23] MEDS: ENOXAPARIN SODIUM 60 MG/0.6 ML SYRINGE SQ SCH (12:15)
--- NOTE | 2017-10-23 12:44 | HHI.PR ---
Subjective Remarks Patient states he has a little bit of pain where he got the Lovenox injection. He also complains of his chronic back pain. Otherwise he feels okay. Able to tolerate p.o. He states that he sees Dr. Rogers at [facility] in [place]. He will try to call them early tomorrow morning to find out if they can monitor his INR while he is transitioning with the Lovenox/Coumadin. He denies any nausea or vomiting. Otherwise he feels okay. Objective Vitals Vital Signs Date Time Temp Pulse Resp B/P (MAP) Pulse Ox O2 Delivery O2 Flow Rate FiO2 10/23/17 07:50 96.0 71 20 102/64 (77) 92 10/23/17 04:00 10/23/17 00:57 97.9 55 18 120/57 (78) 94 10/22/17 21:11 97.8 69 16 114/62 (79) 94 10/22/17 15:50 96.5 67 20 107/67 (80) 94 I/O 10/22/17 10/22/17 10/22/17 10/23/17 10/23/17 10/23/17 07:00 15:00 23:00 07:00 15:00 23:00 Intake Total 38.5 ml 919 ml Balance 38.5 ml 919 ml Intake Oral 919 ml IV Total 38.5 ml # Voids 2 3 2 # Bowel Movements 1 0 Result Diagram: 10/22/17 0525 10/21/17 0945 Imaging Last Impressions Barium Swallow X-Ray 10/21/17 0000 Signed Impressions: Service Date/Time: Saturday, October 21, 2017 08:18 - CONCLUSION: 1. Mild stricture of the distal esophagus of unknown etiology. 2. Moderate nonspecific esophageal motility disorder. Clifton Bacon MD Chest CT 10/20/17 0000 Signed Impressions: Service Date/Time: October 12:48 - CONCLUSION: 1. No evidence of mediastinal adenopathy. 2. Mild upper right thoracic curvature and multiple compression deformities throughout the thoracic spine. 3. Bilateral lower lung linear areas of infiltrate or atelectasis. Isidro Mcclure MD Abdomen/Pelvis CT 10/20/17 0000 Signed Impressions: Service Date/Time: October 12:48 - CONCLUSION: 1. There is hemoclips in the periportal region from unknown surgical procedure. The head of the pancreas appears enlarged and there is a cystic structure posterior to the head of the pancreas which is of uncertain significance and organ of origin. The duodenal C-loop is not well seen as it courses about the pancreas and cannot clear the duodenal C-loop on the basis of CT. 2. The gallbladder is distended, but no gallstones are seen. The visualized portion of the common bile duct is normal dimension. 3. Constipation. No dilated loops of jejunum or ileum. Oral contrast does pass through two thirds of the way through the small bowel. Isidro Mcclure MD Objective Remarks GENERAL: This is a well-developed patient, very wasted and cachectic male CARDIOVASCULAR: Regular rate and rhythm RESPIRATORY: Clear to auscultation. Breath sounds equal bilaterally. No wheezes GASTROINTESTINAL: Abdomen soft, non-tender, nondistended. Normal active bowel sounds MUSCULOSKELETAL: Extremities without edema. NEURO: Alert & Oriented. Normal speech Procedures Upper and lower endoscopy: Normal A/P Problem List: (1) Dysphagia ICD Code: R13.10 - Dysphagia, unspecified (2) Weight loss ICD Code: R63.4 - Abnormal weight loss (3) Aortic valve replaced ICD Code: Z95.2 - Presence of prosthetic heart valve (4) Warfarin toxicity ICD Code: T45.511A - Poisoning by anticoagulants, accidental (unintentional), initial encounter Assessment and Plan (1) Dysphagia Barium swallow does show some stricture Mechanical diet tolerated Supplementation appreciated and nutritional consult obtained GI did sign off and recommends outpatient f/u for pancreatic EUS (2) Weight loss No evidence of malignancy at this time Follow-up as an outpatient per GI team Dietitian consult appreciated (3) Aortic valve replaced Continue with Lovenox/warfarin goal INR greater than 2.5. I did discuss this pt , he states that he can call his PCP tomorrow morning and see if they can have him come in daily for INR check. Continue bridge for now. Have RN show pt how to give himself Lovenox. If PCP is able to monitor pt closely during the week then will consider d/c pt tomorrow morning w daily INR and script for lovenox/ coumadin. If not, then pt will have to remain in hospital until therapeutic. I have increased coumadin to 4mg po daily. check INR in AM. pharmacy consult Pt tells me that he was on 6mg po daily. (4) Warfarin toxicity Appears resolved after correction INR 1.1 Discharge Planning Pt to call his PCP tomorrow morning and see if they can have him come in daily for INR check. Continue bridge for now. Have RN show pt how to give himself Lovenox. If PCP is able to monitor pt closely during the week then will consider d/c pt tomorrow morning w daily INR and script for lovenox/coumadin. If not, then pt will have to remain in hospital until therapeutic. Miranda Carpio MD Oct 23, 2017 12:44
[2017-10-23 15:50] VITALS: BP 122/71; PULSE 67; RESP 20; TEMP 96.2; O2SAT 92
[2017-10-23] MEDS ORDERED: WARFARIN SOD 4 MG TAB PO SCH (16:00)
[2017-10-23 20:00] VITALS: BP 143/76; PULSE 64; RESP 16; TEMP 96.7; O2SAT 94
[2017-10-24] VITALS: BP 141/73; PULSE 71; RESP 18; TEMP 96.6; O2SAT 96
[2017-10-24] MEDS: ENOXAPARIN SODIUM 60 MG/0.6 ML SYRINGE SQ SCH ×2 (00:19→12:11)
[2017-10-24] MEDS: MORPHINE SULFATE 2 MG/ML SYRINGE IV PUSH PRN ×4 (01:20→12:13)
[2017-10-24 07:16] LABS: INTERNATIONAL NORMALIZED RATIO 1.1 RATIO; PROTHROMBIN TIME - PATIENT 11.4 SEC (9.8-11.6)
[2017-10-24 08:00] VITALS: BP 108/70; PULSE 79; RESP 15; TEMP 97.6; O2SAT 79
[2017-10-24] MEDS: PREGABALIN 25 MG CAP PO SCH (08:50)
[2017-10-24] MEDS: DULoxetine HCl DR 20 MG CAP PO SCH (08:50)
[2017-10-24] MEDS: SODIUM CHLORIDE 0.9% FLUSH 10 ML FLUSH IV FLUSH SCH (08:50)
[2017-10-24] MEDS: GABAPENTIN 100 MG CAP PO SCH (08:50)
[2017-10-24] MEDS: BUDESONIDE-FORMOTEROL 80/4.5 MCG INHALER INH SCH (08:50)
[2017-10-24 12:53] VITALS: BP 105/62; PULSE 67; RESP 18; TEMP 96.6; O2SAT 94
[2017-10-24] MEDS ORDERED: COUM4TAB PO (14:05)
[2017-10-24] MEDS ORDERED: ENOX60P SQ (14:05)
--- NOTE | 2017-10-24 14:08 | HHI.DS ---
Discharge Summary Admission Date Oct 20, 2017 at 11:21 Discharge Date: Oct 24, 2017 Admitting Diagnosis (1) Dysphagia ICD Code: R13.10 - Dysphagia, unspecified (2) Weight loss ICD Code: R63.4 - Abnormal weight loss (3) Aortic valve replaced ICD Code: Z95.2 - Presence of prosthetic heart valve (4) Warfarin toxicity ICD Code: T45.511A - Poisoning by anticoagulants, accidental (unintentional), initial encounter Procedures Upper and lower endoscopy: Normal Brief History - From Admission This patient is a 62-year-old gentleman with a history of COPD and mechanical aortic valve replacement who came to the emergency room because of progressive dysphagia over the last 2 weeks. He had associated nausea and vomiting and noted some increased vomiting to the point of projectile vomiting of food and liquid. He normally takes warfarin because of an aortic valve replacement which was done in 2012. He had noticed increased bleeding in the gums and the bruising in the skin and had some bleeding on his pillow. He called his primary care doctor and was found to have elevated INR over 8. He still had some bleeding and was not able to take the vitamin K that was prescribed because was unavailable at the pharmacy. His primary care provider urged to come to the hospital for further evaluation. Here his INR is 4.6. Patient's bleeding has subsided somewhat. He has trouble clearing his own secretions and trouble swallowing even now. He notes no chest pain or shortness of breath. He is quite frail and notes that he has lost quite a bit of weight over the last several months. His baseline weight was 172 and he had gotten down to 114 with some improvement of recent weight of 125. Patient is admitted to observation unit for further evaluation. There is no intestinal bleeding and the patient does not endorse any diarrhea or constipation. His pain is minimal at this point. CBC/BMP: 10/22/17 0525 10/21/17 0945 Significant Findings Laboratory Tests Test 10/21/17 17:48 10/21/17 23:30 10/22/17 05:25 10/23/17 06:50 Activated Partial Thromboplast Time 46.5 SEC (24.3-30.1) 44.6 SEC (24.3-30.1) 48.3 SEC (24.3-30.1) Red Blood Count 3.47 MIL/MM3 (4.50-5.90) Hemoglobin 10.7 GM/DL (13.0-17.0) Hematocrit 32.3 % (39.0-51.0) Prothrombin Time 12.1 SEC (9.8-11.6) Test 10/24/17 05:12 Activated Partial Thromboplast Time 37.5 SEC (24.3-30.1) Imaging Last Impressions Barium Swallow X-Ray 10/21/17 0000 Signed Impressions: Service Date/Time: Saturday, October 21, 2017 08:18 - CONCLUSION: 1. Mild stricture of the distal esophagus of unknown etiology. 2. Moderate nonspecific esophageal motility disorder. Clifton Bacon MD Chest CT 10/20/17 0000 Signed Impressions: Service Date/Time: October 12:48 - CONCLUSION: 1. No evidence of mediastinal adenopathy. 2. Mild upper right thoracic curvature and multiple compression deformities throughout the thoracic spine. 3. Bilateral lower lung linear areas of infiltrate or atelectasis. Isidro Mcclure MD Abdomen/Pelvis CT 10/20/17 0000 Signed Impressions: Service Date/Time: October 12:48 - CONCLUSION: 1. There is hemoclips in the periportal region from unknown surgical procedure. The head of the pancreas appears enlarged and there is a cystic structure posterior to the head of the pancreas which is of uncertain significance and organ of origin. The duodenal C-loop is not well seen as it courses about the pancreas and cannot clear the duodenal C-loop on the basis of CT. 2. The gallbladder is distended, but no gallstones are seen. The visualized portion of the common bile duct is normal dimension. 3. Constipation. No dilated loops of jejunum or ileum. Oral contrast does pass through two thirds of the way through the small bowel. Isidro Mcclure MD PE at Discharge GENERAL: This is a well-developed patient, very wasted and cachectic male CARDIOVASCULAR: Regular rate and rhythm RESPIRATORY: Clear to auscultation. Breath sounds equal bilaterally. No wheezes GASTROINTESTINAL: Abdomen soft, non-tender, nondistended. Normal active bowel sounds MUSCULOSKELETAL: Extremities without edema. NEURO: Alert & Oriented. Normal speech Pt update on day of discharge Pt feeling much better. Denies any CP/SOB/N/V Confirmed that PCP can see him tomorrow for INR monitoring and management. called office while I was in the room. Hospital Course (1) Dysphagia Barium swallow does show some stricture Mechanical diet tolerated Supplementation appreciated and nutritional consult obtained GI did sign off and recommends outpatient f/u for pancreatic EUS (2) Weight loss No evidence of malignancy at this time Follow-up as an outpatient per GI team Dietitian consult appreciated (3) Aortic valve replaced Continue with Lovenox/warfarin goal INR greater than 2.5. I did discuss this w pt, his called PCP office and confirmed that he is able to go in tomorrow for INR monitoring on a daily basis. Continue bridge for now. Have RN show pt how to give himself Lovenox. I have increased coumadin to 4mg po daily. check INR in AM. Pt tells me that he was on 6mg po daily, dose to be adjusted by pt's PCP. (4) Warfarin toxicity resolved post treatment, now pt is subtherapeutic INR 1.1 Pt Condition on Discharge: Stable Discharge Disposition: Discharge Home Discharge Time: > 30 minutes Discharge Instructions DIET: Follow Instructions for: Heart Healthy Diet Activities you can perform: Regular-No Restrictions Follow up Referrals: Gastroenterology - 2 Weeks PCP Follow-up - Daily New Orders: PT/INR - Daily New Medications: Enoxaparin Inj (Lovenox Inj) 60 Mg/0.6 Ml Syr 60 MG SQ Q12H, #6 ML Warfarin (Coumadin) 4 Mg Tab 4 MG PO DAILY@16, #30 TAB Continued Medications: Alendronate (Fosamax) 70 Mg Tab 70 MG PO Q7D for Osteoporosis Treatment, #4 TAB 0 Refills Budesonide-Formoterol Inh (Symbicort Inh) 80-4.5 Mcg/Act Aero 1 PUFF INH Q12HR for Asthma Management, #1 INHALER [address] (Cymbalta DR) 20 Mg Capdr 20 MG PO DAILY, #30 CAP 0 Refills Gabapentin (Gabapentin) 100 Mg Cap 100 MG PO BID, #60 CAP 0 Refills Hydrocodone-Acetaminophen (Hydrocodone-Acetaminophen) 10-300 Tab 1 TAB PO Q4H PRN for PAIN, TAB 0 Refills Pregabalin (Lyrica) 25 Mg Cap 25 MG PO BID, #60 CAP 0 Refills Miranda Carpio MD Oct 24, 2017 14:08
[2017-10-24] MEDS ORDERED: WARFARIN SOD 2 MG TAB PO ONE (16:00)
== END 2017-10-24 15:12 | disposition home or self-care (01) | DRG 392 ==
LOC: PHEDDLT 22:30 → PH3A 22:31 → OBSVTOIN 10-20 11:21
PROVIDERS: ADMIT Hospitalist; ATTEND Hospitalist
PROC: 30233K1 Transfusion of Nonautologous Frozen Plasma into Peripheral Vein, Percutaneous Approach (ICD-10-PCS; 2017-10-20)
PROC: 0DB58ZX Excision of Esophagus, Via Natural or Artificial Opening Endoscopic, Diagnostic (ICD-10-PCS; principal; 2017-10-21 08:00)
DX: K22.2 Esophageal obstruction (principal); E46 Unspecified protein-calorie malnutrition; R13.10 Dysphagia, unspecified; G62.9 Polyneuropathy, unspecified; J44.9 Chronic obstructive pulmonary disease, unspecified; R11.2 Nausea with vomiting, unspecified; R11.12 Projectile vomiting; M54.9 Dorsalgia, unspecified; M81.0 Age-related osteoporosis without current pathological fracture; D63.8 Anemia in other chronic diseases classified elsewhere; Z83.3 Family history of diabetes mellitus; Z82.49 Family history of ischemic heart disease and other diseases of the circulatory system; E87.6 Hypokalemia; Z86.73 Personal history of transient ischemic attack (TIA), and cerebral infarction without residual deficits; Z95.2 Presence of prosthetic heart valve; Z79.01 Long term (current) use of anticoagulants; G89.29 Other chronic pain
CPT/HCPCS: 36430; 71260; 74177; 74230; 80048; 80053; 83735; 84443; 85025; 85027; 85610; 85730; 86927; 88305; 93005; 96361; 96374; C9113; G0378; J1644; J1650; J2270; J7030; J7040; P9017; Q9963; Q9967

== ENCOUNTER 2018-01-23 01:02 | Inpatient (IN) ==
[2018-01-23] MEDS ORDERED: Dextrose 50% in Water 50 ML Vial IV.PUSH PRN ×2 (02:48→03:10)
[2018-01-23] MEDS ORDERED: Bisacodyl 10 MG Supp RECTAL PRN ×2 (04:35→04:36)
[2018-01-23] MEDS ORDERED: Warfarin Consult Pharmacy 1 EACH OTHER SCH (04:42)
[2018-01-23] MEDS: Acetaminophen 325 MG Tablet PO PRN ×2 (05:04→14:47)
[2018-01-23 05:58] LABS: Baso % (Auto) 0.1 % (0.0-2.0); Eos % (Auto) 0.1 % (0.0-4.0); Hematocrit 37.9 % (39.0-51.0); Hemoglobin 12.6 gm/dL (13.0-17.0); Lymph # (Auto) 0.4 th/mm3 (1.0-4.8); Lymph % (Auto) 3.3 % (9.0-44.0); Mean Corpuscular HGB Conc 33.3 % (32.0-36.0); Mean Corpuscular Hemoglobin 31.7 pg (27.0-34.0); Mean Corpuscular Volume 95.2 fL (80.0-100.0); Mean Platelet Volume 7.7 fL (7.0-11.0); Mono % (Auto) 8.8 % (0.0-8.0); Neut # (Auto) 10.5 th/mm3 (1.8-7.7); Neut % (Auto) 87.7 % (16.0-70.0); Platelet Count 120 th/mm3 (150-450); Red Blood Count 3.98 mil/mm3 (4.50-5.90); Red Cell Distribution Width 14.7 % (11.6-17.2); White Blood Count 11.9 th/mm3 (4.0-11.0)
[2018-01-23] MEDS: Piperacil/Tazo 3.375 GM Premix 50 ML IV.SIG SCH ×3 (06:11→18:42)
[2018-01-23 06:13] LABS: Alanine Aminotransferase 43 U/L (12-78); Alkaline Phosphatase 47 U/L (45-117); Anion Gap 11 meq/L (5-15); Aspartate Aminotransferase 90 U/L (15-37); Blood Urea Nitrogen 22 mg/dL (7-18); Calcium 7.5 mg/dL (8.5-10.1); Carbon Dioxide 20.2 meq/L (21.0-32.0); Chloride 112 meq/L (98-107); Glomerular Filtration Rate 67 mL/min (>89); Glucose,Random 85 mg/dL (74-106); Sodium 143 meq/L (136-145); Total Protein 6.5 g/dL (6.4-8.2)
[2018-01-23 06:15] LABS: Potassium 2.7 meq/L (3.5-5.1)
--- NOTE | 2018-01-23 07:03 | P.HPCC ---
History of Present Illness Primary Care Physician: Regan Rogers History of Present Illness: HPI Narrative: Patient is a 62-year-old male who presented to [facility] ER stating that about 5 and a half hours ago he noticed that his left arm and left foot were weak. He also had slurred speech. Patient statesd he does not feel well. Patient has previous history of a hemorrhagic stroke on 2014. This left him with some mild residual sensory deficits in his left hand. Patient also has mechanical heart valve and is on Coumadin. His stated his INR has been elevated in the 4 range for the past week and his Coumadin has been held. 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 After patient arrived in the emergency department he began complaining of severe lower abdominal pain. His mental status appears to be diminishing as well. Last Observed Normal: 15:00 Timing confirmed by: spouse Location: speech, dysarthria, left arm and left leg History of same: Yes Severity: moderate Quality: weak and tingling Relieving factors: none Exacerbating factors: none On Anticoagulants: Yes Associated symptoms: chest pain CT head and CTA neck were normal. Dr. Person neurology was contacted by ER physician and as patient was not felt to be a candidate for thrombolysis due to the fact that he was on Coumadin with an elevated INR stroke alert was not called. Patient was accepted for admission by hospitalist service to [place]. Subsequently patient developed a fever with hypotension. He received 3 L normal saline bolus and was started on Levophed for pressor support and empiric antibiotic coverage at the [facility]. Patient had started complaining of abdominal pain in the ER and a UA suggested UTI. CT of the abdomen and pelvis revealed the following:Abdomen/Pelvis CT 01/22/18 20:36 CONCLUSION: 1. Overall no significant change compared with October. 2. There is periportal edema in the liver. Stable cystic lesion in right upper quadrant as above. Mild ileus. Mild constipation. Numerous compression deformities in the lower thoracic and lumbar spine, stable with extensive osteopenia. Patient was transferred to the ICU at [place] under the hospitalist service initially however subsequently critical care consult was requested following his arrival to the ICU due to hypotension requiring pressors. Critical care was not contacted by [facility] after initiation of pressors for hypotension. Patient remained with an altered mental status. When I evaluated the patient he was laying in the ICU bed on Levophed 6 mics per minute with systolic blood pressure 110 with a map of 75. Levophed was decreased to 2 mics per minute with which she was maintaining a map of 71. Patient was drowsy though arousable. He was disoriented and not following commands. Not following commands. He was moving both upper and lower extremities with painful stimuli. He was on 2 L nasal cannula and maintaining his O2 sats. History was obtained by reviewing records and discussion with nursing staff. Inpatient Certification: I certify that the inpatient services were ordered in accordance with Medicare regulations governing the order. This includes certification that hospital inpatient services are reasonable and necessary and in the case of services not specified as inpatient-only under 42 CFR 419.22(n), that they are appropriately provided as inpatient services in accordance to with the 2-midnight benchmark under 43 CFR 412.3(e) Estimated Total Length of Stay (Days): 5 Plans for Post Hospital Care: Home Review of Systems unobtainable due to mental status PMFSH - History History Provided By: Patient, Family Member - Medical History Medical History: Medical History (Last Updated 01/22/18 @ 20:29 by Queenie Alfonso) COPD (chronic obstructive pulmonary disease) CVA (cerebral vascular accident) Neuropathy Osteoporosis - Surgical History Surgical History: Surgical History (Last Updated 01/22/18 @ 20:29 by Queenie Alfonso) Heart valve replaced by other means - Tobacco History Smoking Status: Cognitive impairment - Alcohol History How Often Do You Have a Drink Containing Alcohol: Unable to Obtain - Substance Use History Substance History: Unable to Obtain Medications and Allergies Active Medications: Active Medications Acetaminophen (Tylenol) 650 mg PO Q6H PRN PRN Reason: PAIN 1-10 AND/OR FEVER >101F Last Admin: 01/23/18 05:04 Dose: 650 mg Al Hydroxide/Mg Hydroxide (Milk Of Magnesia Liq) 30 ml PO Q12H PRN PRN Reason: Mild Constipation Albuterol (Albuterol Neb (Prn)) 2.5 mg NEB Q2HR NEB PRN PRN Reason: SHORTNESS OF BREATH/WHEEZING Aspirin (Aspirin) 325 mg PO DAILY ADRIEN Bisacodyl (Dulcolax Supp) 10 mg RECTAL DAILY PRN PRN Reason: SEVERE CONSITIPATION Chlorhexidine Gluconate (Chlorhexidine 2% Cloth) 3 pack TOPICAL DAILY@0400 [facility] Stop: 01/29/18 03:59 Chlorhexidine Gluconate (Chlorhexidine 2% Cloth) 3 pack TOPICAL DAILY@0400 PRN PRN Reason: Extra cloth needed Stop: 01/29/18 03:59 Dextrose (D50w Vial) 50 ml IV.PUSH UNSCH PRN PRN Reason: PER HYPOGLYCEMIA PROTOCOL Famotidine (Pepcid Pf Inj) 20 mg IV.PUSH Q12HR ADRIEN Famotidine (Pepcid) 20 mg PO BID ADRIEN Glucagon (Glucagon Inj) 1 mg OTHER UNSCH PRN PRN Reason: per Hypoglycemic Protocol Potassium Chloride/Sodium Chloride (Ns + Kcl 20 Meq Inj) 1,000 mls @ 120 mls/ hr IV.CONT .Q8H20M [facility] Last Admin: 01/23/18 05:04 Dose: 120 mls/hr Pharmacy Profile Note (Coumadin Consult Pharmacy) 0 mls @ 0 mls/hr OTHER UNSCH [facility] Piperacillin/Tazobactam/Dextrose (Zosyn 3.375 Gm Premix) 50 mls @ 100 mls/hr IV.SIG Q6H [facility] Last Admin: 01/23/18 06:11 Dose: 100 mls/hr Insulin Aspart (Novolog Insulin Suppl Scale Inj) 0 unit SQ ACHS [facility]; Protocol Lactulose (Lactulose Liq) 30 ml PO DAILY PRN PRN Reason: SEVERE CONSITIPATION Senna/Docusate Sodium (Linda-Colace) 1 tab PO BID [facility] Senna/Docusate Sodium (Linda-Colace) 1 tab PO BID [facility] Sennosides (Senokot) 17.2 mg PO Q12H PRN PRN Reason: Moderate Constipation Sodium Chloride (Ns Flush) 2 ml IV.FLUSH BID [facility] Sodium Chloride (Ns Flush) 2 ml IV.FLUSH PRN PRN PRN Reason: FLUSH AFTER USING IV ACCESS Allergies Allergy/AdvReac Type Severity Reaction Status Date / Time No Known Allergies Allergy Unverified 01/22/18 20:19 Home Medications Medication Instructions Recorded Confirmed Type Iron (ferrous sulfate) 01/22/18 History ascorbic acid (vitamin C) [Vitamin 01/22/18 History C] duloxetine [Cymbalta] 90 mg PO DAILY 01/22/18 01/22/18 History hydrocodone-acetaminophen 1 tab PO Q6H 01/22/18 01/22/18 History multivitamin 01/22/18 History pregabalin [Lyrica] 200 mg PO BID 01/22/18 01/22/18 History tamsulosin HS 01/22/18 History warfarin 6 mg PO DAILY 01/22/18 01/22/18 History Results - Labs CBC & Chem 7: 01/23/18 05:26 01/23/18 05:26 Labs: Short CBC 01/23/18 Range/Units 05:26 WBC 11.9 H D (4.0-11.0) th/mm3 Hgb 12.6 L (13.0-17.0) gm/dL Hct 37.9 L (39.0-51.0) % Plt Count 120 L (150-450) th/mm3 BMP 01/23/18 05:26 Sodium 143 Potassium 2.7 L* Chloride 112 H Carbon Dioxide 20.2 L BUN 22 H Creatinine 1.10 Calcium 7.5 L D Liver Function 01/23/18 Range/Units 05:26 Total Bilirubin 0.7 (0.2-1.0) mg/dL AST 90 H (15-37) U/L ALT 43 (12-78) U/L Alkaline Phosphatase 47 (45-117) U/L Albumin 3.0 L D (3.4-5.0) g/dL - Imaging 01/[address] negative for bleed 01/22 CTA head and neck unremarkable 01/22 CT abdomen pelvis Chest x-ray done on 01/22: Bibasilar airspace disease. Exam Vital signs: Vital Signs 01/23/18 04:06 01/23/18 04:11 01/23/18 04:30 Temperature 100.0 F H Pulse Rate 90 88 88 Respiratory Rate 18 20 26 H Blood Pressure 87/52 L 99/60 L 108/61 Pulse Oximetry 96 96 94 L Intake & Output 01/22/18 01/23/18 01/23/18 18:59 06:59 18:59 Weight 56 kg Other: Weight On Admission 56 kg Narrative: HEENT/Neuro: No pallor or icterus, tongue moist, PETER, drowsy, arousable, not following commands., nonfocal grossly, localizing/moving all 4 extremities with painful stimuli Neck: No JVD Chest/pulmonary: CTA bilaterally Cardiovascular: S1-S2 regular no gallop or murmur GI/abdomen: Soft, nontender, bowel sounds present Extremities: Warm bilaterally, no edema Caprini VTE Risk Assessment Caprini VTE Risk Assessment: Moderate/High Risk (score >= 2) Caprini Risk Assessment Model: Point Value = 1 Point Value = 2 Point Value = 3 Point Value = 5 Age 41-60 Minor surgery BMI > 25 kg/m2 Swollen legs Varicose veins or History of unexplained or recurrent spontaneous Oral contraceptives or hormone replacement Sepsis (< 1 month) Serious lung disease, including pneumonia (< 1 month) Abnormal pulmonary function Acute myocardial infarction Congestive heart failure (< 1 month) History of inflammatory bowel disease Medical patient at bed rest Age 61-74 Arthroscopic surgery Major open surgery (> 45 min) Laparoscopic surgery (> 45 min) Malignancy Confined to bed (> 72 hours) Immobilizing plaster cast Central venous access Age >= 75 History of VTE Family history of VTE Factor V Leiden Prothrombin [id number] Lupus anticoagulant Anticardiolipin antibodies Elevated serum homocysteine Heparin-induced thrombocytopenia Other congenital or acquired thrombophilia Stroke (< 1 month) Elective arthroplasty Hip, pelvis, or leg fracture Acute spinal cord injury (< 1 month) Prophylaxis Regimen: Total Risk Factor Score Risk Level Prophylaxis Regimen 0-1 Low Early ambulation 2 Moderate Order ONE of the following: *Sequential Compression Device (SCD) *Heparin 5000 units SQ BID 3-4 Higher Order ONE of the following medications: *Heparin 5000 units SQ TID *Enoxaparin/Lovenox 40 mg SQ daily (WT < 150 kg, CrCl > 30 mL/min) *Enoxaparin/Lovenox 30 mg SQ daily (WT < 150 kg, CrCl > 10-29 mL/min) *Enoxaparin/Lovenox 30 mg SQ BID (WT < 150 kg, CrCl > 30 mL/min) AND/OR *Sequential Compression Device (SCD) 5 or more Highest Order ONE of the following medications: *Heparin 5000 units SQ TID (Preferred with Epidurals) *Enoxaparin/Lovenox 40 mg SQ daily (WT < 150 kg, CrCl > 30 mL/min) *Enoxaparin/Lovenox 30 mg SQ daily (WT < 150 kg, CrCl > 10-29 mL/min) *Enoxaparin/Lovenox 30 mg SQ BID (WT < 150 kg, CrCl > 30 mL/min) AND *Sequential Compression Device (SCD) Assessment and Plan - Assessment and Plan Plan: 62-year-old male with: Encephalopathy Transient left-sided weakness which is now resolved: Suspect TIA Possible delirium Septic shock UTI History of mechanical heart valve Hypokalemia Plan: Neuro: Follow neuro status. Neurology consult with Dr. Person for further evaluation of transient left-sided weakness. Patient is on Coumadin. Follow INR. Was initiated on aspirin. Further stroke workup per neurology Cardiovascular: Status post 3 L normal saline bolus. Continue IV fluids. Levophed for pressor support. Will add low-dose vasopressin 0.04 U/min to attempt to titrate off levo fed. Albumin 5% every 6 hourly 24 hours. Pulmonary: Continue supplemental O2, bronchodilators as needed. GI/liver: N.p.o. for now till improvement in neurologic status. Will obtain speech swallow eval once neurologic status improves. Renal/: IV hydration, strict intake output, monitor and replete electrodes, follow BUN/creatinine. Cano catheterization. ID: Continue empiric antibiotic coverage with IV Zosyn. Suspected UTI. Abnormal UA done at [facility] ER. Follow-up cultures. Will obtain ID consult for further evaluation. Follow-up transthoracic echo to evaluate heart valves. Endocrine: Watch for hyperglycemia, SSI for glycemic control if needed. Heme: On anticoagulation with Coumadin for mechanical heart valve. Continue Coumadin with pharmacy consult to adjust Coumadin dosing. Prophylaxis: Pepcid/SCDs. On full anticoagulation with Coumadin. Further recommendations per neurology/ID. Condition critical Time spent on critical care excluding procedures 60 minutes: H&P: Quality - VTE Deep Vein Thrombosis/Pulmonary Embolism Present on Admission: No
[2018-01-23] MEDS ORDERED: Magnesium Sulfate Inj 2 GM in Sodium Chlor 0.9% Inj 96 ML IV.SIG PRN (07:36)
[2018-01-23] MEDS ORDERED: Magnesium Oxide 400 MG Tablet PO PRN (07:36)
[2018-01-23] MEDS ORDERED: Sodium Phosphate Inj 30 MMOL in Sodium Chlor 0.9% Inj 250 ML IV.SIG PRN (07:36)
[2018-01-23] MEDS ORDERED: Potassium Chlor 20 mEq Premix 20 MEQ/100 ML PIGGYBACK IV.SIG PRN (07:36)
[2018-01-23] MEDS ORDERED: Magnesium Sulfate Inj 4 GM in Sodium Chlor 0.9% Inj 92 ML IV.SIG PRN (07:36)
[2018-01-23] MEDS ORDERED: Potassium Phosphate Inj 30 MMOL in Sodium Chlor 0.9% Inj 250 ML IV.SIG PRN (07:36)
[2018-01-23] MEDS ORDERED: Potassium Chloride 25 MEQ Effervescent Tablet PO PRN (07:36)
[2018-01-23] MEDS ORDERED: Potassium Phosphate 500 MG Soluble Tablet PO PRN ×2 (07:36)
[2018-01-23] MEDS ORDERED: Potassium Chlor 40 mEq Premix 40 MEQ/100 ML PIGGYBACK IV.SIG PRN ×2 (07:36)
[2018-01-23] MEDS ORDERED: Vasopressin Inj 40 UNIT in Dextrose 5% in Water Inj 98 ML IV.CONT SCH ×2 (08:00)
[2018-01-23] MEDS: Potassium Chlor 20 mEq Premix 20 MEQ/100 ML PIGGYBACK IV.SIG PRN ×4 (08:00→15:20)
[2018-01-23] MEDS ORDERED: Senna/Docusate Sodium 8.6/50 MG Tablet PO SCH (09:00)
[2018-01-23] MEDS ORDERED: Calcium Gluconate Inj 2 GM in Sodium Chlor 0.9% Inj 100 ML IV.SIG ONE (09:00)
[2018-01-23] MEDS ORDERED: Famotidine 20 MG Tablet PO SCH (09:00)
--- NOTE | 2018-01-23 09:00 | MB ---
cc: Ajay Person MD, PhD DATE: 01/23/2018 REASON FOR CONSULTATION: Stroke. HISTORY OF PRESENT ILLNESS: Mr. Tolentino is a 62-year-old man who states he had a hemorrhagic stroke in 2014, resulting in left-sided weakness from which he recovered for the most part with some residual numbness on that side. He also has a mechanical aortic valve, he states and is on Coumadin because of that. Yesterday, he presented to the emergency room in [place] after experiencing acute onset of left-sided weakness involving the arm and leg. He presented to the ER about 5-1/2 hours after the onset of the symptoms. He states that his INR was elevated a week or so ago about 8.1 and his Coumadin was on hold. I spoke with the physician in the ER last night. The patient was not a candidate for TPA for a number of reasons, namely the fact that he was out of the 4-1/2 hour window upon presentation, but also with a history of hemorrhagic stroke in the past and also his INR was greater than 2. We elected to proceed with a CT angiogram to see if there is any evidence of large vessel occlusion, although he was at the outer limits of that window, but the CTA was negative with no sign of large vessel occlusion. CTA of the neck was also negative. The CT of the brain was also unremarkable. He is transferred here for further evaluation. In the interim, he notices improvement in his left-sided symptoms, although not completely back to his baseline. He still has some residual weakness in the left arm and the left leg. He had no headache, no speech difficulties at the time. PAST MEDICAL HISTORY: He has a history of a prosthetic aortic valve. He has a history of lumbar spondylosis. History of COPD. CURRENT MEDICATIONS: 1. Aspirin 325 mg daily. 2. Tylenol p.r.n. 3. Albuterol p.r.n. 4. Pepcid 20 mg IV b.i.d. 5. Potassium chloride supplement. 6. Piperacillin. 7. Lactulose as needed. NEUROLOGICAL EXAMINATION: VITAL SIGNS: His blood pressure is 99/60, pulse is 88, regular. He is in normal sinus rhythm, respirations are 20, temperature 100 degrees axillary. HIGHER CORTICAL FUNCTION: He is alert. He is oriented x3. His speech is normal. No sign of aphasia or dysarthria. There is no neglect. Cranial nerves 2-12 are normal. There is no facial asymmetry. The pupils are measuring about 2 mm, symmetric, reactive to light. The extraocular movements are intact. Visual crews are normal to confrontation. Tongue protrudes midline. Palate elevates symmetrically. Sternocleidomastoid strength is normal. On motor: He has got trace weakness in the left arm, rated at about 4+/5 proximally and distally. Left leg is stronger 5-/5 proximal and distal. He has got normal strength in the right arm and right leg, rated at 5/5. He has got slightly diminished fine motor skills in the left hand. There is a slight left upper extremity pronator drift. Sensory exam is diminished to soft touch left arm and left leg. Deep tendon reflexes are 1+, biceps symmetric 2+, brachioradialis symmetric 2+, triceps symmetric 2+, patella symmetric. Ankle reflexes are absent. Babinski's are absent bilaterally. LABORATORY DATA: White count is 11,900, hemoglobin 12.6, hematocrit 37.9%, platelets 120,000. Sodium 143, potassium 2.7, chloride 112, CO2 is 20. The BUN is 22, creatinine 1.1, GFR 67, AST 90, ALT is 43, total bilirubin 0.7, calcium 7.5, total protein 6.5, albumin is 3.0, alkaline phosphatase 47. Lipid panel is pending. His INR yesterday in the emergency room was 2.6 with a PT of 26.9, APTT 36.1. His EKG is normal sinus rhythm. IMPRESSION: Probable recurrent right hemisphere stroke versus transient ischemic attack. His symptoms are improving. RECOMMENDATIONS: As noted above, the patient was not a candidate for IV TPA. There was no evidence of large vessel occlusion to warrant endovascular therapy either. At the present time, would continue the patient on his Coumadin to maintain an INR between 2 and 3. We would like to obtain further evaluation with an echocardiogram. I asked the patient to bring in literature regarding his aortic valve, as to whether or not we could proceed with an MRI of the brain. I will followup the lipid panel as well. I would like to obtain an EEG, as well, to be sure this was not a focal seizure with a resultant Tu's paralysis. Thank you for asking me to see this patient in consult. Ajay Person MD, PhD MICHAEL/THERESA , 08:37 AM , 08:59 AM
[2018-01-23] MEDS: Insulin NovoLOG Aspart Correctional Sugar Inj SQ SCH ×4 (09:13→21:36)
[2018-01-23] MEDS: Potassium Chlor 10 mEq Premix 10 MEQ/100 ML PIGGYBACK IV.SIG SCH ×4 (09:15→14:40)
[2018-01-23] MEDS: Senna/Docusate Sodium 8.6/50 MG Tablet PO SCH ×2 (09:19→20:06)
[2018-01-23] MEDS: Aspirin 325 MG Tablet PO SCH (09:30)
[2018-01-23] MEDS: Famotidine PF Inj 20 MG/2 ML Vial IV.PUSH SCH ×2 (09:30→20:06)
[2018-01-23] MEDS: Famotidine 20 MG Tablet PO SCH ×2 (10:31→20:06)
[2018-01-23] MEDS: Albumin Human 5% Inj 250 ML IV.SIG SCH ×3 (10:43→19:22)
[2018-01-23 11:02] LABS: INR 2.2 Ratio; Prothrombin Time 22.4 sec (9.8-11.6)
[2018-01-23 11:06] LABS: Chol/HDL Ratio 1.57 Ratio; HDL Cholesterol 43.7 mg/dL (40.0-60.0)
[2018-01-23 15:15] LABS: Albumin 2.9 g/dL (3.4-5.0); Anion Gap 9 meq/L (5-15); Calcium 7.9 mg/dL (8.5-10.1); Carbon Dioxide 19.9 meq/L (21.0-32.0); Chloride 115 meq/L (98-107); Glucose,Random 104 mg/dL (74-106); Potassium 3.9 meq/L (3.5-5.1); Sodium 144 meq/L (136-145)
[2018-01-23 15:16] LABS: Alanine Aminotransferase 47 U/L (12-78); Aspartate Aminotransferase 106 U/L (15-37); Blood Urea Nitrogen 22 mg/dL (7-18); Glomerular Filtration Rate 88 mL/min (>89)
[2018-01-23 15:21] LABS: Alkaline Phosphatase 45 U/L (45-117); Total Protein 6.1 g/dL (6.4-8.2)
[2018-01-23 17:26] LABS: Hemoglobin A1c 5.3 % (4.3-6.0)
--- NOTE | 2018-01-23 18:31 | ECHRPT ---
Indication: CVA CONCLUSIONS The left ventricular systolic function is ihrowzyd-yr-ipkggyh reduced with an estimated ejection fra ction in the range of 35-40%. There is global left ventricular dysfunction. Yhjj-of-xmcoacks mitral valve regurgitation. Aortic valve prosthesis, probably mechanical, with normal gradients (peak 13, mean 6, CHASE 1.54). There is mild tricuspid valve regurgitation. Trivial pulmonary valve regurgitation. BP: / HR: Rhythm: Sinus MEASUREMENTS (Male / Female) Normal Values Technical Quality:Fair 2D ECHO LV Diastolic Diameter PLAX 4.9 cm 4.2 - 5.9 / 3.9 - 5.3 cm LV Systolic Diameter PLAX 3.4 cm IVS Diastolic Thickness 0.7 cm 0.6 - 1.0 / 0.6 - 0.9 cm LVPW Diastolic Thickness 0.7 cm 0.6 - 1.0 / 0.6 - 0.9 cm LV Relative Wall Thickness 0.3 RV Internal Dim ED PLAX 2.8 cm LVOT Diameter 2.7 cm Aortic Root Diameter 3.8 cm LA Systolic Diameter LX 4.2 cm 3.0 - 4.0 / 2.7 - 3.8 cm DOPPLER AV Peak Velocity 189.0 cm/s AV Peak Gradient 14.3 mmHg AV Mean Gradient 8.0 mmHg AV Velocity Time Integral 35.4 cm LVOT Peak Velocity 48.9 cm/s LVOT Peak Gradient 1.0 mmHg LVOT Velocity Time Integral 9.3 cm AV Area Cont Eq vti 1.5 cm AV Area Cont Eq pk 1.5 cm Mitral E Point Velocity 78.5 cm/s Mitral A Point Velocity 68.6 cm/s Mitral E to A Ratio 1.1 LV E' Lateral Velocity 14.8 cm/s Mitral E to LV E' Lateral Ratio 5.3 LV E' Septal Velocity 7.3 cm/s Mitral E to LV E' Septal Ratio 10.7 TR Peak Velocity 214.0 cm/s TR Peak Gradient 18.3 mmHg Right Atrial Pressure 10.0 mmHg Pulmonary Artery Systolic Pressu 28.3 mmHg Right Ventricular Systolic Press 28.3 mmHg PV Peak Velocity 58.7 cm/s PV Peak Gradient 1.4 mmHg FINDINGS LEFT VENTRICLE Normal left ventricular size. Wall thickness is normal. The left ventricular systolic function is cevtschp-xr-xaquttj reduced with an estimated ejection fra ction in the range of 35-40%. There is global left ventricular dysfunction. RIGHT VENTRICLE Grossly normal LEFT ATRIUM The left atrial size is heyt-wj-smisxruepv dilated. RIGHT ATRIUM The right atrial size is inof-lo-lngvjtmzgk dilated. ATRIAL SEPTUM No atrial level shunt is demonstrated by color flow Doppler interrogation. AORTA The aortic root and proximal ascending aorta are normal in size on limited imaging. MITRAL VALVE Structurally normal mitral valve. Pdvr-gr-pgdhrpat mitral valve regurgitation. No mitral valve stenosis. AORTIC VALVE Aortic valve prosthesis, probably mechanical, with normal gradients (peak 13, mean 6, CHASE 1.54) TRICUSPID VALVE There is mild tricuspid valve regurgitation. The estimated pulmonary arterial pressure is 28.3 mmHg. PULMONARY VALVE Trivial pulmonary valve regurgitation. VESSELS There is less than 50% respiratory change in dimension of the inferior vena cava (abnormal). PERICARDIUM No pericardial effusion. Manohar Johnson DO (Electronically Signed) Final Date:23 January 2018 18:30
[2018-01-23] MEDS ORDERED: Gadodiamide PF Inj 287 MG/ML 5 ML Syringe (for RAD MRI) IV.PUSH ONE (19:23)
--- NOTE | 2018-01-23 20:59 | MR ---
EXAM DATE: 01/23/2018 6:40 PM EDT AGE/SEX: 62 years / Male INDICATIONS: Altered mental status. Slurred speech. CLINICAL DATA: This is the patient's initial encounter. Patient reports that signs and symptoms have been present for 2 days and indicates a pain score of 0/10. MEDICAL/SURGICAL HISTORY: Stroke. Inguinal hernia repair. Aortic valve replacement. COMPARISON: [facility], CTA HEAD W CONTRAST W 3D, 01/22/2018. [facility], CT HEAD W/O CONTRAST, 01/22/2018. . TECHNIQUE: Multiplanar, multisequence examination of the brain was performed without and with 13 ml O mniscan (gadodiamide) contrast as a single exam dose. FINDINGS: Cerebrum: The ventricles are normal for age. There is an area of increased signal seen adjacent to the posterior horn of the right lateral ventricle likely related to encephalomalacia and the sequela of prior infarct. On the gradient echo sequences, there appears to be low signal in the medial right temporal region extending to the area adjacent to the posterior aspect of the right lateral ventricle likely from prior hemorrhage. An acute hemorrhage is not seen. There is a similar linear area of low signal seen on the gradient sequences in the medial left temporal region in the posterior external c apsule region likely from prior hemorrhage. No evidence of midline shift, mass lesion, hemorrhage or acute infarction. No extraaxial fluid collections are seen. The pituitary gland and suprasellar cis tern are normal in configuration. White Matter: No significant signal abnormalities are seen in the white matter. Posterior Fossa: The cerebellum and brainstem are intact. The 4th ventricle is midline. The cerebel lopontine angle is unremarkable. The cerebellar tonsils are normal in position. Diffusion Imaging: No focal areas of restricted diffusion are seen. No evidence of acute infarction . Extracranial: The visualized portions of the orbits and paranasal sinuses are unremarkable. Post Contrast: No abnormal areas of parenchymal or dural enhancement. No evidence of blood-brain ba rrier breakdown. CONCLUSION: 1. No acute intracranial abnormality is seen. 2. Suspected prior hemorrhage and an area of encephalomalacia at the medial right temporal region ex tending to the white matter adjacent to the posterior horn of the right lateral ventricle. 3. Focal linear low signal seen in the posterior external capsule region on the left likely from marsha or hemorrhage. Electronically signed by: Regan Chang MD 01/23/2018 8:58 PM EDT
[2018-01-24] MEDS: Albumin Human 5% Inj 250 ML IV.SIG SCH ×5 (00:21→23:10)
[2018-01-24] MEDS: Piperacil/Tazo 3.375 GM Premix 50 ML IV.SIG SCH ×5 (00:22→23:10)
[2018-01-24] MEDS ORDERED: Chlorhexidine Gluconate 2% 1 Pack (2 Cloths) TOPICAL SCH (04:00)
[2018-01-24] MEDS ORDERED: Chlorhexidine Gluconate 2% 1 Pack (2 Cloths) TOPICAL PRN ×2 (04:00)
[2018-01-24 05:00] LABS: Baso % (Auto) 0.3 % (0.0-2.0); Eos # (Auto) 0.1 th/mm3 (0.0-0.4); Hemoglobin 10.3 gm/dL (13.0-17.0); Lymph # (Auto) 0.5 th/mm3 (1.0-4.8); Lymph % (Auto) 9.9 % (9.0-44.0); Mean Corpuscular HGB Conc 32.1 % (32.0-36.0); Mean Corpuscular Hemoglobin 31.5 pg (27.0-34.0); Mean Corpuscular Volume 98.2 fL (80.0-100.0); Mean Platelet Volume 7.9 fL (7.0-11.0); Mono # (Auto) 0.5 th/mm3 (0.0-0.9); Mono % (Auto) 8.9 % (0.0-8.0); Neut # (Auto) 4.3 th/mm3 (1.8-7.7); Neut % (Auto) 79.9 % (16.0-70.0); Platelet Count 73 th/mm3 (150-450); Red Blood Count 3.26 mil/mm3 (4.50-5.90); White Blood Count 5.4 th/mm3 (4.0-11.0)
[2018-01-24 05:09] LABS: Chloride 117 meq/L (98-107); Potassium 3.5 meq/L (3.5-5.1); Sodium 144 meq/L (136-145)
[2018-01-24 05:10] LABS: INR 2.1 Ratio; Prothrombin Time 21.6 sec (9.8-11.6)
[2018-01-24 05:13] LABS: Albumin 2.8 g/dL (3.4-5.0); Anion Gap 11 meq/L (5-15); Blood Urea Nitrogen 18 mg/dL (7-18); Calcium 7.7 mg/dL (8.5-10.1); Glucose,Random 120 mg/dL (74-106)
[2018-01-24 05:16] LABS: Alanine Aminotransferase 43 U/L (12-78); Aspartate Aminotransferase 82 U/L (15-37)
[2018-01-24 05:17] LABS: Glomerular Filtration Rate Greater Than 89 mL/min (>89)
[2018-01-24 05:18] LABS: Total Protein 5.7 g/dL (6.4-8.2)
[2018-01-24 05:19] LABS: Alkaline Phosphatase 33 U/L (45-117); Creatine Kinase 641 U/L (39-308)
[2018-01-24 05:35] LABS: CKMB Percent 1.2 % (0.0-4.0); Creatine Kinase MB 7.8 ng/mL (0.5-3.6)
--- NOTE | 2018-01-24 06:28 | XR ---
EXAM DATE: 01/24/2018 6:14 AM EDT AGE/SEX: 62 years / Male INDICATIONS: Shortness of breath. CLINICAL DATA: This is the patient's subsequent encounter. Patient reports that signs and symptoms h ave been present for 3 days and indicates a pain score of Nonresponsive. MEDICAL/SURGICAL HISTORY: Hypertension. . Heart valve replacement. COMPARISON: [facility], CHEST 1V SINGLE AP, 01/22/2018. . FINDINGS: Mild diffuse interstitial prominence. Minimal bibasilar, right greater than left, airspace disease un changed from prior exam. Cardiomegaly mediastinal contours are stable. Remainder of the exam is uncha nged. CONCLUSION: 1. No significant interval change. 2. Minimal bibasilar, right greater than left, airspace disease. Electronically signed by: Danilo Perry MD 01/24/2018 6:26 AM EDT
--- NOTE | 2018-01-24 07:44 | P.PNCC ---
Subjective Subjective Remarks/Hospital Course: 01/23: HPI Narrative: Patient is a 62-year-old male who presented to [facility] ER stating that about 5 and a half hours ago he noticed that his left arm and left foot were weak. He also had slurred speech. Patient statesd he does not feel well. Patient has previous history of a hemorrhagic stroke on 2014. This left him with some mild residual sensory deficits in his left hand. Patient also has mechanical heart valve and is on Coumadin. His stated his INR has been elevated in the 4 range for the past week and his Coumadin has been held. 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 After patient arrived in the emergency department he began complaining of severe lower abdominal pain. His mental status appears to be diminishing as well. Last Observed Normal: 15:00 Timing confirmed by: spouse Location: speech, dysarthria, left arm and left leg History of same: Yes Severity: moderate Quality: weak and tingling Relieving factors: none Exacerbating factors: none On Anticoagulants: Yes Associated symptoms: chest pain CT head and CTA neck were normal. Dr. Person neurology was contacted by ER physician and as patient was not felt to be a candidate for thrombolysis due to the fact that he was on Coumadin with an elevated INR stroke alert was not called. Patient was accepted for admission by hospitalist service to [facility]. Subsequently patient developed a fever with hypotension. He received 3 L normal saline bolus and was started on Levophed for pressor support and empiric antibiotic coverage at the [facility]. Patient had started complaining of abdominal pain in the ER and a UA suggested UTI. CT of the abdomen and pelvis revealed the following:Abdomen/Pelvis CT 01/22/18 20:36 CONCLUSION: 1. Overall no significant change compared with October. 2. There is periportal edema in the liver. Stable cystic lesion in right upper quadrant as above. Mild ileus. Mild constipation. Numerous compression deformities in the lower thoracic and lumbar spine, stable with extensive osteopenia. Patient was transferred to the ICU at [facility] under the hospitalist service initially however subsequently critical care consult was requested following his arrival to the ICU due to hypotension requiring pressors. Critical care was not contacted by [facility] after initiation of pressors for hypotension. Patient remained with an altered mental status. When I evaluated the patient he was laying in the ICU bed on Levophed 6 mics per minute with systolic blood pressure 110 with a map of 75. Levophed was decreased to 2 mics per minute with which she was maintaining a map of 71. Patient was drowsy though arousable. He was disoriented and not following commands. Not following commands. He was moving both upper and lower extremities with painful stimuli. He was on 2 L nasal cannula and maintaining his O2 sats. History was obtained by reviewing records and discussion with nursing staff. 01/24: Off pressors. Has been having diarrhea since yesterday. Much more awake and alert. Moving all 4 extremities. Denies any chest pain or shortness of breath. Objective Vital Signs / I&O: Vital Signs 01/23/18 07:45 01/23/18 08:00 01/23/18 08:15 Temperature Pulse Rate 80 76 72 Respiratory Rate 19 18 18 Blood Pressure 102/65 102/66 98/64 L Pulse Oximetry 98 98 98 01/23/18 08:30 01/23/18 08:45 01/23/18 09:00 Temperature 97.4 F L Pulse Rate 72 68 74 Respiratory Rate 19 18 18 Blood Pressure 106/70 117/70 110/69 Pulse Oximetry 99 100 99 01/23/18 09:10 01/23/18 09:15 01/23/18 09:20 Temperature Pulse Rate 74 72 72 Respiratory Rate 20 18 18 Blood Pressure 117/72 117/71 116/66 Pulse Oximetry 99 98 98 01/23/18 09:25 01/23/18 09:30 01/23/18 09:35 Temperature Pulse Rate 72 74 72 Respiratory Rate 19 19 20 Blood Pressure 116/67 122/75 120/69 Pulse Oximetry 98 96 99 01/23/18 09:40 01/23/18 10:25 01/23/18 10:30 Temperature Pulse Rate 76 68 72 Respiratory Rate 21 21 26 H Blood Pressure 129/69 132/80 Pulse Oximetry 95 01/23/18 11:00 01/23/18 12:00 01/23/18 13:00 Temperature Pulse Rate 66 70 78 Respiratory Rate 19 17 26 H Blood Pressure Pulse Oximetry 99 98 98 01/23/18 14:00 01/23/18 14:38 01/23/18 15:00 Temperature Pulse Rate 76 76 74 Respiratory Rate 20 22 21 Blood Pressure 134/74 Pulse Oximetry 98 98 98 01/23/18 15:45 01/23/18 16:00 01/23/18 17:00 Temperature 97.9 F Pulse Rate 72 68 72 Respiratory Rate 22 21 23 Blood Pressure 135/69 Pulse Oximetry 98 98 97 01/23/18 17:42 01/23/18 18:29 01/23/18 18:37 Temperature Pulse Rate 70 80 Respiratory Rate 21 22 Blood Pressure 120/64 103/62 126/64 Pulse Oximetry 97 98 01/23/18 18:49 01/23/18 20:00 01/23/18 20:04 Temperature Pulse Rate 74 Respiratory Rate 18 20 Blood Pressure Pulse Oximetry 01/23/18 20:08 01/23/18 21:30 01/23/18 21:36 Temperature 98.9 F Pulse Rate 72 70 Respiratory Rate 26 H 20 14 Blood Pressure 112/57 L 118/58 L Pulse Oximetry 98 98 01/23/18 22:00 01/23/18 22:30 01/23/18 23:30 Temperature Pulse Rate 70 74 74 Respiratory Rate 22 23 23 Blood Pressure 117/64 110/57 L 111/61 Pulse Oximetry 97 98 98 01/24/18 00:00 01/24/18 00:30 01/24/18 01:30 Temperature 98.3 F Pulse Rate 70 76 72 Respiratory Rate 29 H 23 25 H Blood Pressure 113/62 107/64 114/77 Pulse Oximetry 97 97 97 01/24/18 02:56 01/24/18 05:00 01/24/18 06:00 Temperature Pulse Rate 62 50 L Respiratory Rate 22 20 17 Blood Pressure 113/68 118/67 Pulse Oximetry 97 97 Intake & Output 01/23/18 01/24/18 01/24/18 18:59 06:59 18:59 Intake Total 2370 / 2370 1850 / 1850 Balance 2370 / 2370 1850 / 1850 Intake: IV 1650 / 1650 1850 / 1850 NS + KCl 20 mEq Inj 1,000 ML @ 1000 / 1000 1000 / 1000 120 mls/hr IV.CONT .Q8H20M [facility] Rx#:[id number] Buminate 5% Inj 250 ML @ 250 250 / 250 750 / 750 mls/hr IV.SIG Q6HR [facility] Rx#: [id number] Zosyn 3.375 GM Premix 50 ML @ 100 / 100 100 / 100 100 mls/hr IV.SIG Q6H [facility] Rx#: [id number] KCl 20 mEq Premix Inj 20 meq In 300 / 300 100 ml @ 50 mls/hr IV.SIG Q2H PRN Rx#:[id number] Oral 720 / 720 Other: Bladder Irrigation Fluid - Amount Instilled Indwelling Urethral Catheter 2,000 Date of Last Bowel Movement 01/23/18 01/23/18 # Bowel Movements 4 # Incontinent Bowel Movements 3 Result Diagrams: 01/24/18 04:15 01/24/18 04:15 Objective Remarks: HEENT/Neuro: No pallor or icterus, tongue moist, PETER, drowsy, arousable, not following commands., nonfocal grossly, localizing/moving all 4 extremities with painful stimuli Neck: No JVD Chest/pulmonary: CTA bilaterally Cardiovascular: S1-S2 regular no gallop or murmur GI/abdomen: Soft, nontender, bowel sounds present Extremities: Warm bilaterally, no edema Assessment and Plan - Assessment and Plan Plan: 62-year-old male with: Encephalopathy (resolved) Transient left-sided weakness which is now resolved: Suspect TIA Possible delirium Septic shock UTI Diarrhea History of mechanical aortic valve Hypokalemia Plan: Neuro: Follow neuro status. Neurology consult with Dr. Person for further evaluation of transient left-sided weakness. Patient is on Coumadin. Follow INR. Was initiated on aspirin. Further stroke workup per neurology. MRI brain did not show any acute CVA. Cardiovascular: Status post 3 L normal saline bolus. Continue IV fluids. Off levo fed and vasopressin gtt. this morning. Albumin 5% every 6 hourly 24 hours. Pulmonary: Continue supplemental O2, bronchodilators as needed. GI/liver: N.p.o. for now till improvement in neurologic status. Will obtain speech swallow eval once neurologic status improves. Renal/: IV hydration, strict intake output, monitor and replete electrodes, follow BUN/creatinine. Cano catheterization. Changed IV fluid to D5 LR in view of hyperchloremia. ID: Continue empiric antibiotic coverage with IV Zosyn. Suspected UTI. Abnormal UA done at [facility]. Follow-up cultures. Will obtain ID consult for further evaluation. Follow-up transthoracic echo to evaluate heart valves. Endocrine: Watch for hyperglycemia, SSI for glycemic control if needed. Heme: On anticoagulation with Coumadin for mechanical heart valve. Continue Coumadin with pharmacy consult to adjust Coumadin dosing. Prophylaxis: Pepcid/SCDs. On full anticoagulation with Coumadin. Further recommendations per neurology/ID. Consult and transfer to hospitalist service for further medical management as patient is off pressors now. Critical care will be signing off, please reconsult if needed.
[2018-01-24] MEDS: Dextrose 5%/Lactated Ringer's 1,000 ML IV.CONT SCH (08:39)
[2018-01-24] MEDS: Insulin NovoLOG Aspart Correctional Sugar Inj SQ SCH ×5 (10:36→20:49)
[2018-01-24] MEDS: Aspirin 325 MG Tablet PO SCH (10:40)
[2018-01-24] MEDS: Famotidine 20 MG Tablet PO SCH ×2 (10:42→20:42)
[2018-01-24] MEDS: Famotidine PF Inj 20 MG/2 ML Vial IV.PUSH SCH ×2 (10:42→20:43)
[2018-01-24] MEDS: Senna/Docusate Sodium 8.6/50 MG Tablet PO SCH ×2 (10:42→20:43)
[2018-01-24] MEDS: Chlorhexidine Gluconate 2% 1 Pack (2 Cloths) TOPICAL SCH (12:38)
--- NOTE | 2018-01-24 20:22 | P.CON ---
History of Present Illness Service: INFECTIOUS DISEASE DR MARI Consult date: 01/24/18 Requesting Physician: Eder Brock Reason for Consult: BACTEREMIA Primary Care Provider: Regan Rogers Family Provider: eRgan Rogers Chief Complaint: AMS FEVER History of Present Illness: 62 YR OLD MALE ADMITTED TUESDAY WITH ADVISEMENT OF HIS UROLOGIST FOR AMS , FEVER , CHILLS. HE HAS A HISTORY OF UTIS , 4 THIS YEAR. HE DENIES ANY DYSURIA, FREQUENCY. HE HAS A HISTORY OF RIGHT ICH IN 2015 AND CAUSED NEUROPATHY AND LEFT SIDED WEAKNESS. 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 PT WAS HAVING FEVER 104 ON TUESDAY WITH AMS. HE IS FEELING BETTER. BLOOD CULTURES ARE GROWING STAPH AUREUS IN ALL 4 BOTTLES. 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 HE DENIES ANY SOB OR COUGH , NO N/V HE IS HAVING A LOT OF DIARRHEA. Review of Systems Constitutional: Reports body ache(s), Reports chills, Reports fever(s), Reports headache(s), Reports weakness Eyes: Reports double vision, Denies bulging eyes Ears, Nose, Mouth, and Throat: Denies bleeding gums, Denies bad breath, Denies hearing loss, Denies nasal congestion, Denies neck lump, Denies post nasal drip Cardiovascular: Denies chest pain at rest Respiratory: Denies change in phlegm color Gastrointestinal: Denies belching Genitourinary: Denies blood in urine, Denies side pain, Denies scrotal swelling , Denies urinary hesitancy Musculoskeletal: Reports back pain (CHRONIC) Skin/Breast: Denies boil, Denies change in breast shape, Denies changing lesions , Denies nail changes, Denies sensitivity to light Neurologic: Reports confusion, Reports loss of vision, Reports numbness, Denies abnormal speech, Denies abnormal walking, Denies headache(s), Denies memory loss Psychiatric: Denies abnormal sleep pattern, Denies hopelessness, Denies panic attacks, Denies sensing things others do not sense Endocrine: Reports excessive sweating Hematologic/Lymphatic: Denies easy bruising PMFSH - History History Provided By: Patient - Medical History Medical History: Medical History (Last Reviewed 01/24/18 @ 07:57 by Geno Costa) COPD (chronic obstructive pulmonary disease) CVA (cerebral vascular accident) Neuropathy Osteoporosis - Surgical History Surgical History: Surgical History (Last Reviewed 01/23/18 @ 09:37 by Zaira Rolon) Heart valve replaced by other means - Tobacco History Second Hand Smoke Exposure: No Tobacco Use In Past 30 Days: No Smoking Status: Former smoker Tobacco Type: Cigarettes - Alcohol History How Often Do You Have a Drink Containing Alcohol: Never - Substance Use History Substance History: No History of Abuse - Immunization History Tetanus Immunization: Unsure Hx Influenza Vaccine This Season: No Medications and Allergies Allergies Allergy/AdvReac Type Severity Reaction Status Date / Time No Known Allergies Allergy Unverified 01/22/18 20:19 Home Medications Medication Instructions Recorded Confirmed Type ascorbic acid (vitamin C) [Vitamin See Label Instructions .ROUTE 01/22/18 History C] .COMPLEX duloxetine [Cymbalta] 90 mg PO DAILY 01/22/18 01/24/18 History ferrous sulfate [Iron (ferrous See Label Instructions .ROUTE 01/22/18 01/24/18 History sulfate)] .COMPLEX hydrocodone-acetaminophen 1 tab PO Q6H 01/22/18 01/24/18 History multivitamin 1 cap PO QAM 01/22/18 01/24/18 History pregabalin [Lyrica] 200 mg PO BID 01/22/18 01/24/18 History tamsulosin 0.4 mg PO DAILY 01/22/18 01/24/18 History warfarin 6 mg PO DAILY 01/22/18 01/24/18 History Active Medications: Active Medications Acetaminophen (Tylenol) 650 mg PO Q6H PRN PRN Reason: PAIN 1-10 AND/OR FEVER >101F Last Admin: 01/23/18 14:47 Dose: 650 mg Hydrocodone Bitart/Acetaminophen (Union 10/325) 1 tab PO Q4H PRN PRN Reason: PAIN SCALE 1 TO 5 OR COUGHING Last Admin: 01/24/18 16:22 Dose: 1 tab Hydrocodone Bitart/Acetaminophen (Union 5/325) 1 tab PO Q4H PRN PRN Reason: PAIN SCALE 6 TO 10 OR COUGHING Al Hydroxide/Mg Hydroxide (Milk Of Magnesia Liq) 30 ml PO Q12H PRN PRN Reason: Mild Constipation Albuterol (Albuterol Neb (Prn)) 2.5 mg NEB Q2HR NEB PRN PRN Reason: SHORTNESS OF BREATH/WHEEZING Aspirin (Aspirin) 325 mg PO DAILY [facility] [place] Last Admin: 01/24/18 10:40 Dose: 325 mg Bisacodyl (Dulcolax Supp) 10 mg RECTAL DAILY PRN PRN Reason: SEVERE CONSITIPATION Chlorhexidine Gluconate (Chlorhexidine 2% Cloth) 3 pack TOPICAL DAILY@0400 [facility] [place] Stop: 01/29/18 03:59 Last Admin: 01/24/18 12:38 Dose: Not Given Chlorhexidine Gluconate (Chlorhexidine 2% Cloth) 3 pack TOPICAL DAILY@0400 PRN PRN Reason: Extra cloth needed Stop: 01/29/18 03:59 Dextrose (D50w Vial) 50 ml IV.PUSH UNSCH PRN PRN Reason: PER HYPOGLYCEMIA PROTOCOL Famotidine (Pepcid Pf Inj) 20 mg IV.PUSH Q12HR [facility] [place] Last Admin: 01/24/18 10:42 Dose: Not Given Famotidine (Pepcid) 20 mg PO BID [facility] [place] Last Admin: 01/24/18 10:42 Dose: 20 mg Glucagon (Glucagon Inj) 1 mg OTHER UNSCH PRN PRN Reason: per Hypoglycemic Protocol Pharmacy Profile Note (Coumadin Consult Pharmacy) 0 mls @ 0 mls/hr OTHER UNSCH [facility] [place] Piperacillin/Tazobactam/Dextrose (Zosyn 3.375 Gm Premix) 50 mls @ 100 mls/hr IV.SIG Q6H [facility] [place] Last Admin: 01/24/18 17:55 Dose: 100 mls/hr Magnesium Sulfate Inj 4 gm/ (Sodium Chloride) 100 mls @ 50 mls/hr IV.SIG UNSCH PRN PRN Reason: For Magnesium 0.9 - 1.1 mg/dL Magnesium Sulfate Inj 2 gm/ (Sodium Chloride) 100 mls @ 50 mls/hr IV.SIG UNSCH PRN PRN Reason: For Magnesium 1.2 - 1.6 mg/dL Potassium Chloride (Kcl 40 Meq Premix Inj) 40 meq in 100 mls @ 25 mls/hr IV.SIG Q2H PRN PRN Reason: For Potassium 2.8 - 3.2 mEq/L Potassium Chloride (Kcl 20 Meq Premix Inj) 20 meq in 100 mls @ 50 mls/hr IV.SIG Q2H PRN PRN Reason: For Potassium 3.3 - 3.5 mEq/L Potassium Chloride (Kcl 40 Meq Premix Inj) 40 meq in 100 mls @ 25 mls/hr IV.SIG UNSCH PRN PRN Reason: For Potassium 3.3 - 3.5 mEq/L Potassium Phosphate 30 mmol/ (Sodium Chloride) 260 mls @ 42 mls/hr IV.SIG UNSCH PRN PRN Reason: SEE LABEL COMMENTS Sodium Phosphate 30 mmol/ (Sodium Chloride) 260 mls @ 42 mls/hr IV.SIG UNSCH PRN PRN Reason: For Phosphorus < 2.5 mg/dL Vasopressin 40 unit/ Dextrose 100 mls @ 6 mls/hr IV.CONT CONT [facility] [place]; Protocol Last Admin: 01/23/18 08:47 Dose: 0.04 units/min, 6 mls/hr Albumin Human (Buminate 5% Inj) 250 mls @ 250 mls/hr IV.SIG Q6HR [facility] Last Admin: 01/24/18 17:59 Dose: 250 mls/hr Dextrose/Lactated Ringer's (D5w/Lr Inj) 1,000 mls @ 125 mls/hr IV.CONT .Q8H [facility] [place] Last Infusion: 01/24/18 17:54 Dose: Infused Insulin Aspart (Novolog Insulin Suppl Scale Inj) 0 unit SQ ACHS [facility] [place]; Protocol Last Admin: 01/24/18 18:00 Dose: Not Given Lactulose (Lactulose Liq) 30 ml PO DAILY PRN PRN Reason: SEVERE CONSITIPATION Magnesium Oxide (Mag-Ox) 800 mg PO UNSCH PRN PRN Reason: For Magnesium 1.2 - 1.6 mg/dL Potassium Bicarb/Potassium Chloride (K-Lyte Cl Eff) 50 meq PO UNSCH PRN PRN Reason: For Potassium 3.3 - 3.5 mEq/L Potassium Phosphate (K-Phos Original) 2,000 mg PO Q4H PRN PRN Reason: Phosphorus Less Than 2.5 mg/dL Potassium Phosphate (K-Phos Original) 2,000 mg PO UNSCH PRN PRN Reason: SEE LABEL COMMENTS Senna/Docusate Sodium (Linda-Colace) 1 tab PO BID [facility] [place] Last Admin: 01/24/18 10:42 Dose: Not Given Sennosides (Senokot) 17.2 mg PO Q12H PRN PRN Reason: Moderate Constipation Sodium Chloride (Ns Flush) 2 ml IV.FLUSH BID [facility] [place] Last Admin: 01/24/18 10:41 Dose: 2 ml Sodium Chloride (Ns Flush) 2 ml IV.FLUSH PRN PRN PRN Reason: FLUSH AFTER USING IV ACCESS Warfarin Sodium (Coumadin) 5 mg PO DAILY@1600 [facility] Last Admin: 01/24/18 16:22 Dose: 5 mg Physical Exam Vital signs: Vital Signs 01/23/18 21:30 01/23/18 21:36 01/23/18 22:00 Temperature Pulse Rate 70 70 Respiratory Rate 20 14 22 Blood Pressure 118/58 L 117/64 Pulse Oximetry 98 97 01/23/18 22:30 01/23/18 23:30 01/24/18 00:00 Temperature 98.3 F Pulse Rate 74 74 70 Respiratory Rate 23 23 29 H Blood Pressure 110/57 L 111/61 113/62 Pulse Oximetry 98 98 97 01/24/18 00:30 01/24/18 01:30 01/24/18 02:56 Temperature Pulse Rate 76 72 Respiratory Rate 23 25 H 22 Blood Pressure 107/64 114/77 Pulse Oximetry 97 97 01/24/18 05:00 01/24/18 06:00 01/24/18 07:00 Temperature Pulse Rate 62 50 L 48 L Respiratory Rate 20 17 20 Blood Pressure 113/68 118/67 107/57 L Pulse Oximetry 97 97 01/24/18 07:30 01/24/18 08:00 01/24/18 08:01 Temperature 97.6 F Pulse Rate 56 L 50 L 58 L Respiratory Rate 19 14 24 Blood Pressure 107/62 119/72 Pulse Oximetry 01/24/18 08:30 01/24/18 09:00 01/24/18 09:30 Temperature Pulse Rate 60 52 L 60 Respiratory Rate 20 14 13 Blood Pressure 108/59 L 131/71 138/84 Pulse Oximetry 01/24/18 10:00 01/24/18 10:30 01/24/18 11:00 Temperature Pulse Rate 70 56 L 54 L Respiratory Rate 21 18 18 Blood Pressure 138/80 143/75 H 119/76 Pulse Oximetry 01/24/18 11:30 01/24/18 12:00 01/24/18 12:30 Temperature 98.1 F Pulse Rate 70 70 68 Respiratory Rate 20 22 19 Blood Pressure 140/80 140/86 117/70 Pulse Oximetry 01/24/18 13:00 01/24/18 13:30 01/24/18 14:00 Temperature Pulse Rate 74 66 64 Respiratory Rate 14 18 26 H Blood Pressure 118/76 120/74 Pulse Oximetry 01/24/18 14:15 01/24/18 15:00 01/24/18 16:00 Temperature 98.4 F Pulse Rate 66 68 70 Respiratory Rate 18 22 18 Blood Pressure 126/77 Pulse Oximetry 01/24/18 16:21 01/24/18 16:22 01/24/18 17:00 Temperature Pulse Rate 70 72 Respiratory Rate 20 27 H 25 H Blood Pressure 116/78 115/68 Pulse Oximetry 01/24/18 18:00 01/24/18 19:00 01/24/18 20:00 Temperature Pulse Rate 88 82 70 Respiratory Rate 21 23 20 Blood Pressure 96/66 L 101/57 L 100/70 Pulse Oximetry Intake & Output 01/24/18 01/24/18 01/25/18 06:59 18:59 06:59 Intake Total 2150 / 2150 1300 / 1300 Balance 2150 / 2150 1300 / 1300 Intake: IV 2150 / 2150 1300 / 1300 D5W/LR Inj 1,000 ML @ 125 mls/ 1000 / 1000 hr IV.CONT .Q8H [facility] Rx#: [id number] NS + KCl 20 mEq Inj 1,000 ML @ 1000 / 1000 120 mls/hr IV.CONT .Q8H20M [facility] Rx#:[id number] Buminate 5% Inj 250 ML @ 250 1000 / 1000 250 / 250 mls/hr IV.SIG Q6HR [facility] Rx#: [id number] Zosyn 3.375 GM Premix 50 ML @ 150 / 150 50 / 50 100 mls/hr IV.SIG Q6H [facility] Rx#: [id number] Other: Date of Last Bowel Movement 01/23/18 01/23/18 - Constitutional no acute distress - Routine HEENT Exam Head: Present: normocephalic Eye: Present: PERRL ENT: Present: mucous membranes dry - Routine Respiratory Exam Absent: accessory muscle use, patient mechanically ventilated - Routine Cardiovascular Exam Present: RRR, S1, S2, murmur - Routine Abdominal Exam Present: soft, normoactive bowel sounds - Routine Extremities Exam Absent: cyanosis, clubbing, edema, full ROM, pallor (LOTS OF CUTS AND BRUISES ) - Routine Skin Exam Present: intact - Routine Neurological Exam Present: alert, oriented X3, normal reflexes - Routine Psychiatric Exam Present: normal affect, normal thought process - Urinary Catheter Management Indwelling Urethral Catheter Cath placed during this visit: yes Reason for continuing: Hourly intake/output Insertion date: 01/23/18 Insertion time: 06:30 Assessment and Plan - Assessment (1) Staph aureus infection Code(s): A49.01 - Methicillin susceptible Staphylococcus aureus infection, unspecified site Status: Acute (2) H/O aortic valve replacement Code(s): Z95.2 - Presence of prosthetic heart valve Status: Acute (3) Bacteremia Code(s): R78.81 - Bacteremia Status: Acute - Plan PT WILL NEED CAMERON DOUBT THIS BACTERIA IS FROM A UTI HIS ECHO WAS NEGATIVE FOR ENDOCARDITIS BUT WITH H/O VALVE HE NEEDS A CAMERON TO ASSURE WILL STOP CLECIN WITH ZOSYN START ANCEF WITH VANCOMYCIN ADD PROBIOTIC WILL CONSULT CARDIOLOGY FOR CAMERON PTS CUT OUT AND 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 ASSESSMENT/PLAN: 1 . Sepsis 2. Staph aureus bacteremia 3. h/o Aortic valve replacement Plan: 1. Follow blood cultures 2. IV Vancomycin 3. IV Cefazolin 4. Patient will need a CAMERON
[2018-01-25 05:05] LABS: Baso % (Auto) 0.4 % (0.0-2.0); Eos % (Auto) 0.6 % (0.0-4.0); Hematocrit 34.7 % (39.0-51.0); Hemoglobin 11.2 gm/dL (13.0-17.0); Lymph # (Auto) 0.9 th/mm3 (1.0-4.8); Lymph % (Auto) 15.5 % (9.0-44.0); Mean Corpuscular HGB Conc 32.3 % (32.0-36.0); Mean Corpuscular Hemoglobin 31.4 pg (27.0-34.0); Mean Corpuscular Volume 97.2 fL (80.0-100.0); Mean Platelet Volume 8.5 fL (7.0-11.0); Mono # (Auto) 0.5 th/mm3 (0.0-0.9); Mono % (Auto) 8.2 % (0.0-8.0); Neut # (Auto) 4.6 th/mm3 (1.8-7.7); Neut % (Auto) 75.3 % (16.0-70.0); Platelet Count 78 th/mm3 (150-450); Red Blood Count 3.57 mil/mm3 (4.50-5.90); Red Cell Distribution Width 14.9 % (11.6-17.2)
[2018-01-25 05:14] LABS: Chloride 113 meq/L (98-107); Potassium 3.4 meq/L (3.5-5.1); Sodium 143 meq/L (136-145)
[2018-01-25] MEDS: Dextrose 5%/Lactated Ringer's 1,000 ML IV.CONT SCH ×2 (05:15→13:45)
[2018-01-25] MEDS: Piperacil/Tazo 3.375 GM Premix 50 ML IV.SIG SCH (05:15)
[2018-01-25] MEDS: Albumin Human 5% Inj 250 ML IV.SIG SCH (05:16)
[2018-01-25 05:19] LABS: Albumin 2.9 g/dL (3.4-5.0); Anion Gap 8 meq/L (5-15); Calcium 7.5 mg/dL (8.5-10.1); Carbon Dioxide 21.7 meq/L (21.0-32.0); Glucose,Random 142 mg/dL (74-106)
[2018-01-25 05:20] LABS: Blood Urea Nitrogen 10 mg/dL (7-18)
[2018-01-25 05:22] LABS: Alanine Aminotransferase 38 U/L (12-78)
[2018-01-25 05:23] LABS: Aspartate Aminotransferase 49 U/L (15-37); Glomerular Filtration Rate Greater Than 89 mL/min (>89)
[2018-01-25 05:24] LABS: Total Protein 5.8 g/dL (6.4-8.2)
[2018-01-25 05:25] LABS: Alkaline Phosphatase 30 U/L (45-117)
[2018-01-25 05:27] LABS: Platelet Morphology Normal (Normal)
[2018-01-25] MEDS ORDERED: ceFAZolin Inj 2,000 MG in Sodium Chlor 0.9% Inj 80 ML IV.SIG SCH (06:10)
[2018-01-25] MEDS: ceFAZolin 2 GM Premix Inj 2 GM/50 ML PIGGYBACK IV.SIG SCH ×2 (08:45→16:55)
[2018-01-25] MEDS: Famotidine 20 MG Tablet PO SCH (08:53)
[2018-01-25] MEDS: Aspirin 325 MG Tablet PO SCH (08:53)
[2018-01-25] MEDS: Senna/Docusate Sodium 8.6/50 MG Tablet PO SCH (08:54)
--- NOTE | 2018-01-25 10:32 | P.PN ---
Subjective Interval history: in no acute distress. complaining of generalized body ache. diarrhea seems to be improving. afebrile. at the bedside. Physical Exam Vital signs: Vital Signs 01/24/18 10:30 01/24/18 11:00 01/24/18 11:30 Temperature Pulse Rate 56 L 54 L 70 Respiratory Rate 18 18 20 Blood Pressure 143/75 H 119/76 140/80 01/24/18 12:00 01/24/18 12:30 01/24/18 13:00 Temperature 98.1 F Pulse Rate 70 68 74 Respiratory Rate 22 19 14 Blood Pressure 140/86 117/70 118/76 01/24/18 13:30 01/24/18 14:00 01/24/18 14:15 Temperature Pulse Rate 66 64 66 Respiratory Rate 18 26 H 18 Blood Pressure 120/74 126/77 01/24/18 15:00 01/24/18 16:00 01/24/18 16:21 Temperature 98.4 F Pulse Rate 68 70 70 Respiratory Rate 22 18 20 Blood Pressure 116/78 01/24/18 16:22 01/24/18 17:00 01/24/18 18:00 Temperature Pulse Rate 72 88 Respiratory Rate 27 H 25 H 21 Blood Pressure 115/68 96/66 L 01/24/18 19:00 01/24/18 20:00 01/25/18 00:00 Temperature 98.3 F Pulse Rate 82 70 84 Respiratory Rate 23 20 20 Blood Pressure 101/57 L 100/70 98/59 L 01/25/18 04:00 01/25/18 04:22 01/25/18 07:00 Temperature 98.0 F Pulse Rate 56 L 68 Respiratory Rate 20 14 27 H Blood Pressure 93/63 L 120/67 01/25/18 08:00 01/25/18 09:00 01/25/18 10:00 Temperature Pulse Rate 66 62 64 Respiratory Rate 15 14 18 Blood Pressure 113/65 120/69 103/66 01/25/18 10:13 Temperature 98.4 F Pulse Rate Respiratory Rate Blood Pressure Intake & Output 01/24/18 01/25/18 01/25/18 18:59 06:59 18:59 Intake Total 2200 / 2200 660 / 660 Output Total 1200 / 1200 800 / 800 Balance 1000 / 1000 -140 / -140 Weight 62.5 kg Intake: IV 1600 / 1600 300 / 300 D5W/LR Inj 1,000 ML @ 125 mls/ 1000 / 1000 hr IV.CONT .Q8H [facility] Rx#: [id number] Buminate 5% Inj 250 ML @ 250 500 / 500 250 / 250 mls/hr IV.SIG Q6HR [facility] Rx#: [id number] Zosyn 3.375 GM Premix 50 ML @ 100 / 100 50 / 50 100 mls/hr IV.SIG Q6H [facility] Rx#: [id number] Oral 600 / 600 360 / 360 Output: Stool 1200 / 1200 200 / 200 Urine Amount (Catheter) 600 / 600 Indwelling Urethral Catheter 600 / 600 Other: Bladder Irrigation Fluid - Amount Instilled Indwelling Urethral Catheter 1,000 Date of Last Bowel Movement 01/23/18 01/25/18 01/25/18 - Constitutional no acute distress - Routine Respiratory Exam Present: CTA bilaterally - Routine Cardiovascular Exam Present: RRR - Routine Abdominal Exam Present: soft - Routine Neurological Exam Present: alert - Urinary Catheter Management Indwelling Urethral Catheter Cath placed during this visit: yes Reason for continuing: Hourly intake/output Insertion date: 01/23/18 Insertion time: 06:30 Results - Labs CBC & Chem 7: 01/25/18 04:40 01/25/18 04:40 Laboratory Results - last 24 hr 01/24/18 01/24/18 01/24/18 12:21 17:06 20:23 CBC w Diff WBC RBC Hgb Hct MCV MCH MCHC RDW Plt Count MPV Neut % (Auto) Lymph % (Auto) [place] % (Auto) Eos % (Auto) Baso % (Auto) Neut # (Auto) Lymph # (Auto) [place] # (Auto) Eos # (Auto) Baso # (Auto) WBC Differential Diff Scan Differential Comment Platelet Estimate Platelet Morphology Sodium Potassium Chloride Carbon Dioxide Anion Gap BUN Creatinine Estimated GFR POC Glucose 181 H 114 H 97 Random Glucose Calcium Total Bilirubin AST ALT Alkaline Phosphatase Total Protein Albumin 01/25/18 01/25/18 01/25/18 04:40 04:40 08:05 CBC w Diff Slide review pending WBC 6.0 RBC 3.57 L Hgb 11.2 L Hct 34.7 L MCV 97.2 MCH 31.4 MCHC 32.3 RDW 14.9 Plt Count 78 L MPV 8.5 Neut % (Auto) 75.3 H Lymph % (Auto) 15.5 [place] % (Auto) 8.2 H Eos % (Auto) 0.6 Baso % (Auto) 0.4 Neut # (Auto) 4.6 Lymph # (Auto) 0.9 L [place] # (Auto) 0.5 Eos # (Auto) 0.0 Baso # (Auto) 0.0 WBC Differential . Diff Scan Auto diff confirmed Differential Comment . Platelet Estimate Low L Platelet Morphology Normal Sodium 143 Potassium 3.4 L Chloride 113 H Carbon Dioxide 21.7 Anion Gap 8 BUN 10 Creatinine 0.69 Estimated GFR Greater than 89 POC Glucose 122 H Random Glucose 142 H Calcium 7.5 L Total Bilirubin 0.6 AST 49 H ALT 38 Alkaline Phosphatase 30 L Total Protein 5.8 L Albumin 2.9 L Microbiology 01/24/18 08:52 Stool Stool for WBCs - Final No WBC's seen 01/24/18 08:52 Stool Enteric Pathogens (PCR) - Final No enteric pathogens detected by PCR (No Salmonella sp., Shigella sp., Campylobacter sp., Yersinia enterocolitica, Vibrio sp., Norovirus, or EHEC (Shiga Toxin 1 or Shiga Toxin 2) detected. 01/23/18 05:26 Blood - Peripheral Aerobic Blood Culture - Preliminary Staphylococcus aureus 01/23/18 05:26 Blood - Peripheral Anaerobic Blood Culture - Preliminary gram positive cocci 01/23/18 05:41 Blood - Peripheral Aerobic Blood Culture - Preliminary gram positive cocci 01/23/18 05:41 Blood - Peripheral Anaerobic Blood Culture - Preliminary gram positive cocci Assessment and Plan - Assessment (1) Bacteremia Code(s): R78.81 - Bacteremia Status: Acute Plan: with Staph Aureus/ history of aortic valve replacement.- TTE with no vegetation - continue Ancef- cardiology consult for CAMERON. ID following. (2) Septic shock Code(s): A41.9 - Sepsis, unspecified organism; R65.21 - Severe sepsis with septic shock Status: Acute Plan: resolved- off the pressors- continue antibiotic and w/u per ID. (3) TIA (transient ischemic attack) Code(s): G45.9 - Transient cerebral ischemic attack, unspecified Status: Acute Plan: with left sided weakness-with history of cerebral bleed- MRI brain as noted above- on aspirin and Coumadin- will consult neurology- PT/ST following. - Plan Discharge Planning: patient will be transferred to the main campus for CAMERON.
[2018-01-25] MEDS: Insulin NovoLOG Aspart Correctional Sugar Inj SQ SCH (11:10)
--- NOTE | 2018-01-25 12:31 | P.DIET ---
Nutritional Evaluation Type of nutrition evaluation: initial Nutrition screening: Poor PO Intake Subjective Subjective Comments: Pt visited family member at bedside. Pt waiting to be transferred to the Main hospital for CAMERON. Pt had his first "real" meal here, per Nursing, last night for dinner, after ST Rec Mech Soft. Pt receptive to receiving Ensure supplement when diet is re-started. Objective - Diagnosis UTI, AMS, Rhabdomyolysis - Objective % IBW: 77 Body Weight Used for Calculations: IBW Energy Needs - Lower Range (kCal/kg): 35 Energy Needs - Upper Range (kCal/kg): 40 Lower Limit kCal/kg (kCals): 1,960 Upper Limit kCal/kg (kCals): 2,240 Lower Limit Protein Factor (Grams per Kg): 1.3 Upper Limit Protein Factor (Grams per Kg): 1.6 Lower Protein Needs (Protein): 73 Upper Protein Needs (Protein): 90 Fluid Factor (ml/kg): 35 Estimated Fluid Needs (ml): 1,960 Dietitian Reviewed in Medical Record: Current diet, Curent medications, Intake & Output, Labs, Medical history Diet Order: NPO Speech Therapy Recommendations: Yes (Mech Soft) Objective Comments: PMH: COPD, CVA s/o hemorrhagic stroke 2015, mechanical heart valve, neuropathy, osteoarthritis Accucheck 122 Diarhhea; c-diff negative Assessment Assessment: Pt is at nutritional risk r/t diagnosis, poor po intake and low BMI. Monitor NPO status. Send Ensure Enlive supplement tid(350 kcal and 20g Protein per serving), when diet has been advanced full liquid or greater. Dietitian following. Recommendations: 1.Monitor NPO status 2.Send Ensure Enlive supplement tid when diet has been advanced full liquid or greater 3.Dietitian following Dietitian to Monitor: Lab values, Intake & Output, Diet advancement, Medical course
--- NOTE | 2018-01-25 15:15 | P.PNNEU ---
Subjective Subjective Comments: No acute events reported left sided strength improved Active Medications: Active Medications Acetaminophen (Tylenol) 650 mg PO Q6H PRN PRN Reason: PAIN 1-10 AND/OR FEVER >101F Last Admin: 01/23/18 14:47 Dose: 650 mg Hydrocodone Bitart/Acetaminophen ([place] 10/325) 1 tab PO Q4H PRN PRN Reason: PAIN SCALE 1 TO 5 OR COUGHING Last Admin: 01/25/18 13:40 Dose: 1 tab Hydrocodone Bitart/Acetaminophen ([place] 5/325) 1 tab PO Q4H PRN PRN Reason: PAIN SCALE 6 TO 10 OR COUGHING Al Hydroxide/Mg Hydroxide (Milk Of Magnesia Liq) 30 ml PO Q12H PRN PRN Reason: Mild Constipation Albuterol (Albuterol Neb (Prn)) 2.5 mg NEB Q2HR NEB PRN PRN Reason: SHORTNESS OF BREATH/WHEEZING Aspirin (Aspirin) 325 mg PO DAILY [facility] Last Admin: 01/25/18 08:53 Dose: 325 mg Bisacodyl (Dulcolax Supp) 10 mg RECTAL DAILY PRN PRN Reason: SEVERE CONSITIPATION Chlorhexidine Gluconate (Chlorhexidine 2% Cloth) 3 pack TOPICAL DAILY@0400 [facility] Stop: 01/29/18 03:59 Last Admin: 01/24/18 12:38 Dose: Not Given Chlorhexidine Gluconate (Chlorhexidine 2% Cloth) 3 pack TOPICAL DAILY@0400 PRN PRN Reason: Extra cloth needed Stop: 01/29/18 03:59 Dextrose (D50w Vial) 50 ml IV.PUSH UNSCH PRN PRN Reason: PER HYPOGLYCEMIA PROTOCOL Famotidine (Pepcid Pf Inj) 20 mg IV.PUSH Q12HR [facility] Last Admin: 01/24/18 20:43 Dose: Not Given Famotidine (Pepcid) 20 mg PO BID [facility] Last Admin: 01/25/18 08:53 Dose: 20 mg Glucagon (Glucagon Inj) 1 mg OTHER UNSCH PRN PRN Reason: per Hypoglycemic Protocol Pharmacy Profile Note (Coumadin Consult Pharmacy) 0 mls @ 0 mls/hr OTHER UNSCH [facility] Magnesium Sulfate Inj 4 gm/ (Sodium Chloride) 100 mls @ 50 mls/hr IV.SIG UNSCH PRN PRN Reason: For Magnesium 0.9 - 1.1 mg/dL Magnesium Sulfate Inj 2 gm/ (Sodium Chloride) 100 mls @ 50 mls/hr IV.SIG UNSCH PRN PRN Reason: For Magnesium 1.2 - 1.6 mg/dL Potassium Chloride (Kcl 40 Meq Premix Inj) 40 meq in 100 mls @ 25 mls/hr IV.SIG Q2H PRN PRN Reason: For Potassium 2.8 - 3.2 mEq/L Potassium Chloride (Kcl 20 Meq Premix Inj) 20 meq in 100 mls @ 50 mls/hr IV.SIG Q2H PRN PRN Reason: For Potassium 3.3 - 3.5 mEq/L Potassium Chloride (Kcl 40 Meq Premix Inj) 40 meq in 100 mls @ 25 mls/hr IV.SIG UNSCH PRN PRN Reason: For Potassium 3.3 - 3.5 mEq/L Potassium Phosphate 30 mmol/ (Sodium Chloride) 260 mls @ 42 mls/hr IV.SIG UNSCH PRN PRN Reason: SEE LABEL COMMENTS Sodium Phosphate 30 mmol/ (Sodium Chloride) 260 mls @ 42 mls/hr IV.SIG UNSCH PRN PRN Reason: For Phosphorus < 2.5 mg/dL Vasopressin 40 unit/ Dextrose 100 mls @ 6 mls/hr IV.CONT CONT [facility]; Protocol Last Admin: 01/23/18 08:47 Dose: 0.04 units/min, 6 mls/hr Dextrose/Lactated Ringer's (D5w/Lr Inj) 1,000 mls @ 125 mls/hr IV.CONT .Q8H [facility] Last Admin: 01/25/18 13:45 Dose: 125 mls/hr Cefazolin Sodium/Dextrose (Ancef 2 Gm Premix Inj) 2 gm in 50 mls @ 100 mls/hr IV.SIG Q8H [facility] Last Admin: 01/25/18 08:45 Dose: 100 mls/hr Insulin Aspart (Novolog Insulin Suppl Scale Inj) 0 unit SQ ACHS [facility]; Protocol Last Admin: 01/25/18 11:10 Dose: Not Given Lactulose (Lactulose Liq) 30 ml PO DAILY PRN PRN Reason: SEVERE CONSITIPATION Magnesium Oxide (Mag-Ox) 800 mg PO UNSCH PRN PRN Reason: For Magnesium 1.2 - 1.6 mg/dL Potassium Bicarb/Potassium Chloride (K-Lyte Cl Eff) 50 meq PO UNSCH PRN PRN Reason: For Potassium 3.3 - 3.5 mEq/L Potassium Phosphate (K-Phos Original) 2,000 mg PO Q4H PRN PRN Reason: Phosphorus Less Than 2.5 mg/dL Potassium Phosphate (K-Phos Original) 2,000 mg PO UNSCH PRN PRN Reason: SEE LABEL COMMENTS Senna/Docusate Sodium (Linda-Colace) 1 tab PO BID [facility] Last Admin: 01/25/18 08:54 Dose: Not Given Sennosides (Senokot) 17.2 mg PO Q12H PRN PRN Reason: Moderate Constipation Sodium Chloride (Ns Flush) 2 ml IV.FLUSH BID [facility] Last Admin: 01/24/18 20:43 Dose: 2 ml Sodium Chloride (Ns Flush) 2 ml IV.FLUSH PRN PRN PRN Reason: FLUSH AFTER USING IV ACCESS Warfarin Sodium (Coumadin) 5 mg PO DAILY@1600 [facility] Last Admin: 01/24/18 16:22 Dose: 5 mg Allergies/Adverse Reactions: Allergies Allergy/AdvReac Type Severity Reaction Status Date / Time No Known Allergies Allergy Unverified 01/22/18 20:19 Physical Exam Vital signs: Vital Signs 01/24/18 16:00 01/24/18 16:21 01/24/18 16:22 Temperature 98.4 F Pulse Rate 70 70 Respiratory Rate 18 20 27 H Blood Pressure 116/78 Pulse Oximetry 01/24/18 17:00 01/24/18 18:00 01/24/18 19:00 Temperature Pulse Rate 72 88 82 Respiratory Rate 25 H 21 23 Blood Pressure 115/68 96/66 L 101/57 L Pulse Oximetry 01/24/18 20:00 01/25/18 00:00 01/25/18 04:00 Temperature 98.3 F 98.0 F Pulse Rate 70 84 56 L Respiratory Rate 20 20 20 Blood Pressure 100/70 98/59 L 93/63 L Pulse Oximetry 01/25/18 04:22 01/25/18 07:00 01/25/18 08:00 Temperature Pulse Rate 68 66 Respiratory Rate 14 27 H 15 Blood Pressure 120/67 113/65 Pulse Oximetry 01/25/18 09:00 01/25/18 10:00 01/25/18 10:13 Temperature 98.4 F Pulse Rate 62 64 Respiratory Rate 14 18 Blood Pressure 120/69 103/66 Pulse Oximetry 01/25/18 11:00 01/25/18 12:00 01/25/18 12:02 Temperature 98.5 F Pulse Rate 70 74 64 Respiratory Rate 18 26 H 18 Blood Pressure 100/63 123/69 Pulse Oximetry 01/25/18 13:00 01/25/18 13:06 01/25/18 13:40 Temperature Pulse Rate 68 Respiratory Rate 22 27 H Blood Pressure Pulse Oximetry 98 01/25/18 14:00 Temperature Pulse Rate 76 Respiratory Rate 18 Blood Pressure 118/70 Pulse Oximetry 98 Intake & Output 01/24/18 01/25/18 01/25/18 18:59 06:59 18:59 Intake Total 2200 / 2200 660 / 660 1000 / 1000 Output Total 1200 / 1200 800 / 800 400 / 400 Balance 1000 / 1000 -140 / -140 600 / 600 Weight 62.5 kg Intake: IV 1600 / 1600 300 / 300 1000 / 1000 D5W/LR Inj 1,000 ML @ 125 mls/ 1000 / 1000 1000 / 1000 hr IV.CONT .Q8H [facility] Rx#: [id number] Buminate 5% Inj 250 ML @ 250 500 / 500 250 / 250 mls/hr IV.SIG Q6HR [facility] Rx#: [id number] Zosyn 3.375 GM Premix 50 ML @ 100 / 100 50 / 50 100 mls/hr IV.SIG Q6H [facility] Rx#: [id number] Oral 600 / 600 360 / 360 Output: Stool 1200 / 1200 200 / 200 Urine Amount (Catheter) 600 / 600 400 / 400 Indwelling Urethral Catheter 600 / 600 400 / 400 Other: Bladder Irrigation Fluid - Amount Instilled Indwelling Urethral Catheter 1,000 Date of Last Bowel Movement 01/23/18 01/25/18 01/25/18 - Routine Neurological Exam alert, speech normal CN intact MOTOR--5/5 BUE and BLE - Urinary Catheter Management Indwelling Urethral Catheter Cath placed during this visit: yes Reason for continuing: Hourly intake/output Insertion date: 01/23/18 Insertion time: 06:30 Objective Radiology Results: MRI brain--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 No acute change Laboratory Results - last 24 hr 01/24/18 01/24/18 01/25/18 17:06 20:23 04:40 CBC w Diff Slide review pending WBC 6.0 RBC 3.57 L Hgb 11.2 L Hct 34.7 L MCV 97.2 MCH 31.4 MCHC 32.3 RDW 14.9 Plt Count 78 L MPV 8.5 Neut % (Auto) 75.3 H Lymph % (Auto) 15.5 [place] % (Auto) 8.2 H Eos % (Auto) 0.6 Baso % (Auto) 0.4 Neut # (Auto) 4.6 Lymph # (Auto) 0.9 L [place] # (Auto) 0.5 Eos # (Auto) 0.0 Baso # (Auto) 0.0 WBC Differential . Diff Scan Auto diff confirmed Differential Comment . Platelet Estimate Low L Platelet Morphology Normal Sodium Potassium Chloride Carbon Dioxide Anion Gap BUN Creatinine Estimated GFR POC Glucose 114 H 97 Random Glucose Calcium Total Bilirubin AST ALT Alkaline Phosphatase Total Protein Albumin 01/25/18 01/25/18 01/25/18 04:40 08:05 13:03 CBC w Diff WBC RBC Hgb Hct MCV MCH MCHC RDW Plt Count MPV Neut % (Auto) Lymph % (Auto) [place] % (Auto) Eos % (Auto) Baso % (Auto) Neut # (Auto) Lymph # (Auto) [place] # (Auto) Eos # (Auto) Baso # (Auto) WBC Differential Diff Scan Differential Comment Platelet Estimate Platelet Morphology Sodium 143 Potassium 3.4 L Chloride 113 H Carbon Dioxide 21.7 Anion Gap 8 BUN 10 Creatinine 0.69 Estimated GFR Greater than 89 POC Glucose 122 H 106 Random Glucose 142 H Calcium 7.5 L Total Bilirubin 0.6 AST 49 H ALT 38 Alkaline Phosphatase 30 L Total Protein 5.8 L Albumin 2.9 L Microbiology 01/23/18 05:41 Aerobic Blood Culture - Preliminary Blood - Peripheral Staphylococcus aureus Anaerobic Blood Culture - Preliminary Staphylococcus aureus 01/23/18 05:26 Aerobic Blood Culture - Preliminary Blood - Peripheral Staphylococcus aureus Anaerobic Blood Culture - Preliminary Staphylococcus aureus 01/24/18 08:52 Stool for WBCs - Final Stool No WBC's seen 01/24/18 08:52 Enteric Pathogens (PCR) - Final Stool No enteric pathogens detected by PCR (No Salmonella sp., Shigella sp., Campylobacter sp., Yersinia enterocolitica, Vibrio sp., Norovirus, or EHEC (Shiga Toxin 1 or Shiga Toxin 2) detected. Diagnostic Tests: ECHo--mechanical Aortiv valve. no vegetation seen on transthoracic echo Review/Management - Diagnosis (1) TIA (transient ischemic attack) Code(s): G45.9 - Transient cerebral ischemic attack, unspecified Status: Acute Current Visit: Yes - Review/Management Plan: agree with CAMERON to r/o valve vegetation given positive blood cultures
--- NOTE | 2018-01-25 15:49 | MB ---
cc: Florian Escalante MD DATE: 01/25/2018 REASON FOR CARDIOLOGY CONSULTATION: Bacteremia in a patient with aortic prosthetic valve. HISTORY OF PRESENT ILLNESS: This is a middle-aged white male who had change of mental status 4 days prior to admission after cutting the lawn. He went back to the truck and became disoriented. He fell asleep. When he woke up, he drove to another subdivision and later on he drove home. Upon arrival, the found him disoriented and he was admitted to rule out CVA. On admission, his temperature was markedly elevated. Blood culture grew out Staph aureus. He has been started on IV antibiotic. Dr. Londono from infectious disease has seen the patient and recommended a CAMERON. On 01/23/2018, patient had a transthoracic echo, which showed ejection fraction between 35% and 40%. There was global left ventricular hypokinesis. The aortic valve seems to be functioning normally with normal gradient. There was no mentioning of endocarditis. The patient had the aortic valve replacement using mechanical valve in 2012. Two years later, the patient had right temporal hemorrhage, extending into the right lateral horn. Since then, the patient has had a difficult time walking with weakness of the left side, as well as numbness of the left hand and left leg. He quit smoking in 2012. He used to be a moderate drinker of beer. Now, he drinks occasionally. At the moment, the patient is completely lucid. He denies any chest pain or shortness of breath. CT scan of the head showed no acute disease. MEDICATIONS: At the moment: Potassium chloride supplement, hydrocodone p.r.n. for chronic back pain, albuterol inhaler, 5 grains of aspirin a day, cefazolin 2 grams IV every 8 hours. REVIEW OF SYSTEMS: As stated in the chart. PAST MEDICAL HISTORY: CVA 03/06/2015, neuropathy, chronic obstructive pulmonary disease, aortic valve replacement in 2012 with tricuspid valvuloplasty. FAMILY HISTORY: Noncontributory. SOCIAL HISTORY: , disabled. PHYSICAL EXAMINATION: VITAL SIGNS: On the day of consultation showed blood pressure 118/70, pulse is 76 per minute, afebrile. HEAD AND NECK: Showed normal oral exam. NECK: Supple. LUNGS: Decreased air entry with no bronchospasm. CARDIOVASCULAR: Showed normal neck vein. HEART: S1, S2 decreased with clean click. No gross murmur. ABDOMEN: Revealed liver and spleen are not palpable. Bowel sounds normal and nontender abdomen. CENTRAL NERVOUS SYSTEM: Showed the patient is oriented to time, place, and person, moving all 4 limbs. ASSESSMENT: 1. Bacteremia with Staphylococcus aureus sensitive to cefazolin. 2. Aortic valve replacement in 2012 with tricuspid valvuloplasty and no bypass. 3. Chronic obstructive pulmonary disease. 4. Cerebrovascular accident in 2014. PLAN: I would agree with transesophageal echocardiography. The risks and benefits of the procedure have been explained to the patient. Risks include, but are not limited to esophageal rupture, aspiration pneumonia, cardiac arrest and sore throat, as well as arrhythmia, the patient was given the consent. The patient will be transferred back to the main campus, and we will do it tomorrow. MD REJI Merrill/THERESA , 03:05 PM , 03:48 PM JINA
[2018-01-25 18:10] LABS: INR 3.1 Ratio; Prothrombin Time 30.9 sec (9.8-11.6)
--- NOTE | 2018-01-25 18:59 | P.PNID ---
Subjective Remarks: Feels better Being transferred to Main for CAMERON Antibiotics: Cefazolin Lines: Peripheral IV Line Past Medical History: AVR Chronic back pain CVA Allergies/Adverse Reactions: Allergies No Known Allergies Allergy (Unverified 01/22/18 20:19) Objective Vital Signs 01/24/18 19:00 01/24/18 20:00 01/25/18 00:00 Temperature 98.3 F Pulse Rate 82 70 84 Respiratory Rate 23 20 20 Blood Pressure 101/57 L 100/70 98/59 L Pulse Oximetry 01/25/18 04:00 01/25/18 04:22 01/25/18 07:00 Temperature 98.0 F Pulse Rate 56 L 68 Respiratory Rate 20 14 27 H Blood Pressure 93/63 L 120/67 Pulse Oximetry 01/25/18 08:00 01/25/18 09:00 01/25/18 10:00 Temperature Pulse Rate 66 62 64 Respiratory Rate 15 14 18 Blood Pressure 113/65 120/69 103/66 Pulse Oximetry 01/25/18 10:13 01/25/18 11:00 01/25/18 12:00 Temperature 98.4 F 98.5 F Pulse Rate 70 74 Respiratory Rate 18 26 H Blood Pressure 100/63 Pulse Oximetry 01/25/18 12:02 01/25/18 13:00 01/25/18 13:06 Temperature Pulse Rate 64 68 Respiratory Rate 18 22 Blood Pressure 123/69 Pulse Oximetry 98 01/25/18 13:40 01/25/18 14:00 01/25/18 15:00 Temperature 98.6 F Pulse Rate 76 74 Respiratory Rate 27 H 18 18 Blood Pressure 118/70 100/68 Pulse Oximetry 98 19 L 01/25/18 15:41 01/25/18 16:00 01/25/18 17:00 Temperature Pulse Rate 78 78 76 Respiratory Rate 20 20 23 Blood Pressure 100/68 Pulse Oximetry 01/25/18 17:34 01/25/18 17:40 01/25/18 18:48 Temperature 98.2 F Pulse Rate Respiratory Rate 22 Blood Pressure 106/71 Pulse Oximetry Intake & Output 01/24/18 01/25/18 01/25/18 18:59 06:59 18:59 Intake Total 2200 / 2200 660 / 660 1410 / 1410 Output Total 1200 / 1200 800 / 800 1000 / 1000 Balance 1000 / 1000 -140 / -140 410 / 410 Weight 62.5 kg Intake: IV 1600 / 1600 300 / 300 1050 / 1050 D5W/LR Inj 1,000 ML @ 125 mls/ 1000 / 1000 1000 / 1000 hr IV.CONT .Q8H [facility] Rx#: [id number] Buminate 5% Inj 250 ML @ 250 500 / 500 250 / 250 mls/hr IV.SIG Q6HR [facility] Rx#: [id number] Zosyn 3.375 GM Premix 50 ML @ 100 / 100 50 / 50 100 mls/hr IV.SIG Q6H [facility] Rx#: [id number] Ancef 2 GM Premix Inj 2 gm In 50 / 50 50 ml @ 100 mls/hr IV.SIG Q8H [facility] Rx#:[id number] Oral 600 / 600 360 / 360 360 / 360 Output: Stool 1200 / 1200 200 / 200 200 / 200 Urine Amount (Catheter) 600 / 600 800 / 800 Indwelling Urethral Catheter 600 / 600 800 / 800 Other: Bladder Irrigation Fluid - Amount Instilled Indwelling Urethral Catheter 1,000 Date of Last Bowel Movement 01/23/18 01/25/18 01/25/18 # Bowel Movements 4 # Incontinent Bowel Movements 3 01/23/18 05:41 Blood - Peripheral Aerobic Blood Culture - Preliminary Staphylococcus aureus 01/23/18 05:41 Blood - Peripheral Anaerobic Blood Culture - Preliminary Staphylococcus aureus 01/23/18 05:26 Blood - Peripheral Aerobic Blood Culture - Preliminary Staphylococcus aureus 01/23/18 05:26 Blood - Peripheral Anaerobic Blood Culture - Preliminary Staphylococcus aureus 01/24/18 08:52 Stool Stool for WBCs - Final No WBC's seen 01/24/18 08:52 Stool Enteric Pathogens (PCR) - Final No enteric pathogens detected by PCR (No Salmonella sp., Shigella sp., Campylobacter sp., Yersinia enterocolitica, Vibrio sp., Norovirus, or EHEC (Shiga Toxin 1 or Shiga Toxin 2) detected. Lab - Hematology Results 01/24/18 01/25/18 04:15 04:40 CBC w Diff Slide review pending Slide review pending WBC 5.4 D 6.0 RBC 3.26 L 3.57 L Hgb 10.3 L D 11.2 L Hct 32.0 L 34.7 L MCV 98.2 97.2 MCH 31.5 31.4 MCHC 32.1 32.3 RDW 15.0 14.9 Plt Count 73 L D 78 L MPV 7.9 8.5 Neut % (Auto) 79.9 H 75.3 H Lymph % (Auto) 9.[address] [facility] % (Auto) 8.9 H 8.2 H Eos % (Auto) 1.0 0.6 Baso % (Auto) 0.3 0.4 Neut # (Auto) 4.3 4.6 Lymph # (Auto) 0.[address] [facility] # (Auto) 0.5 0.5 Eos # (Auto) 0.1 0.0 Baso # (Auto) 0.0 0.0 WBC Differential . . Diff Scan Auto diff confirmed Auto diff confirmed Differential Comment . . Platelet Estimate Low L Platelet Morphology Normal Lab - Chemistry Results 01/23/18 01/23/18 01/23/18 05:26 19:20 20:10 Sodium Potassium 3.8 Chloride Carbon Dioxide Anion Gap BUN Creatinine Estimated GFR POC Glucose 215 H Random Glucose Hemoglobin A1c 5.3 Calcium Total Bilirubin AST ALT Alkaline Phosphatase Total Creatine Kinase CK-MB (CK-2) CK-MB (CK-2) % Total Protein Albumin 01/24/18 01/24/18 01/24/18 04:15 08:31 12:21 Sodium 144 Potassium 3.5 Chloride 117 H Carbon Dioxide 16.0 L Anion Gap 11 BUN 18 Creatinine 0.72 Estimated GFR Greater than 89 POC Glucose 112 H 181 H Random Glucose 120 H Hemoglobin A1c Calcium 7.7 L Total Bilirubin 0.6 AST 82 H ALT 43 Alkaline Phosphatase 33 L Total Creatine Kinase 641 H CK-MB (CK-2) 7.8 H CK-MB (CK-2) % 1.2 Total Protein 5.7 L Albumin 2.8 L 01/24/18 01/24/18 01/25/18 17:06 20:23 04:40 Sodium 143 Potassium 3.4 L Chloride 113 H Carbon Dioxide 21.7 Anion Gap 8 BUN 10 Creatinine 0.69 Estimated GFR Greater than 89 POC Glucose 114 H 97 Random Glucose 142 H Hemoglobin A1c Calcium 7.5 L Total Bilirubin 0.6 AST 49 H ALT 38 Alkaline Phosphatase 30 L Total Creatine Kinase CK-MB (CK-2) CK-MB (CK-2) % Total Protein 5.8 L Albumin 2.9 L 01/25/18 01/25/18 01/25/18 08:05 13:03 17:04 Sodium Potassium Chloride Carbon Dioxide Anion Gap BUN Creatinine Estimated GFR POC Glucose 122 H 106 92 Random Glucose Hemoglobin A1c Calcium Total Bilirubin AST ALT Alkaline Phosphatase Total Creatine Kinase CK-MB (CK-2) CK-MB (CK-2) % Total Protein Albumin Imaging: ITS Impressions Head MRI 01/23/18 00:00 CONCLUSION: 1. No acute intracranial abnormality is seen. 2. Suspected prior hemorrhage and an area of encephalomalacia at the medial right temporal region extending to the white matter adjacent to the posterior horn of the right lateral ventricle. 3. Focal linear low signal seen in the posterior external capsule region on the left likely from prior hemorrhage. Chest X-Ray 01/24/18 05:00 CONCLUSION: 1. No significant interval change. 2. Minimal bibasilar, right greater than left, airspace disease. Physical Exam: Alert , Oriented x 3 Pallor No icterus Chest : Clear Heart SM Abdomen: Soft non tender bowel sounds present Left sided weakness Assessment and Plan (1) Staph aureus infection Status: Acute Code(s): A49.01 - Methicillin susceptible Staphylococcus aureus infection, unspecified site (2) H/O aortic valve replacement Status: Acute Code(s): Z95.2 - Presence of prosthetic heart valve (3) Bacteremia Status: Acute Code(s): R78.81 - Bacteremia - Plan 1. Blood cultures with 4/4 with Staph aureus- MSSA 2. Continue Cefazolin 3. Patient to have CAMERON
[2018-01-25] MEDS: Famotidine PF Inj 20 MG/2 ML Vial IV.PUSH SCH (22:31)
[2018-01-26] MEDS: Chlorhexidine Gluconate 2% 1 Pack (2 Cloths) TOPICAL SCH (04:08)
[2018-01-26] MEDS ORDERED: Gentamicin Consult Pharmacy 1 EACH OTHER SCH (08:00)
[2018-01-26] MEDS: ceFAZolin 2 GM Premix Inj 2 GM/50 ML PIGGYBACK IV.SIG SCH ×2 (08:00→15:22)
--- NOTE | 2018-01-26 08:07 | P.PN ---
Subjective Interval history: in no acute distress. no new complaints. T max 100. awaiting CAMERON. Physical Exam Vital signs: Vital Signs 01/25/18 09:00 01/25/18 10:00 01/25/18 10:13 Temperature 98.4 F Pulse Rate 62 64 Respiratory Rate 14 18 Blood Pressure 120/69 103/66 Pulse Oximetry 01/25/18 11:00 01/25/18 12:00 01/25/18 12:02 Temperature 98.5 F Pulse Rate 70 74 64 Respiratory Rate 18 26 H 18 Blood Pressure 100/63 123/69 Pulse Oximetry 01/25/18 13:00 01/25/18 13:06 01/25/18 13:40 Temperature Pulse Rate 68 Respiratory Rate 22 27 H Blood Pressure Pulse Oximetry 98 01/25/18 14:00 01/25/18 15:00 01/25/18 15:41 Temperature 98.6 F Pulse Rate 76 74 78 Respiratory Rate 18 18 20 Blood Pressure 118/70 100/68 100/68 Pulse Oximetry 98 19 L 01/25/18 16:00 01/25/18 17:00 01/25/18 17:34 Temperature 98.2 F Pulse Rate 78 76 Respiratory Rate 20 23 Blood Pressure Pulse Oximetry 01/25/18 17:40 01/25/18 18:48 01/25/18 19:00 Temperature Pulse Rate 84 Respiratory Rate 22 Blood Pressure 106/71 94/60 L Pulse Oximetry 96 01/25/18 20:00 01/25/18 21:15 01/25/18 21:25 Temperature 100.0 F H 98.3 F 98.2 F Pulse Rate 88 97 H 97 H Respiratory Rate 22 20 20 Blood Pressure 84/64 L 118/73 118/73 Pulse Oximetry 98 95 97 01/25/18 22:00 01/25/18 22:30 01/26/18 00:00 Temperature 98.2 F Pulse Rate 88 91 H Respiratory Rate 20 20 Blood Pressure 147/80 H Pulse Oximetry 96 01/26/18 04:00 Temperature Pulse Rate 63 Respiratory Rate Blood Pressure Pulse Oximetry Intake & Output 01/25/18 01/26/18 01/26/18 18:59 06:59 18:59 Intake Total 1410 / 1410 240 / 240 Output Total 1000 / 1000 1999 / 1999 Balance 410 / 410 -1760 / -1760 Weight 67.7 kg Intake: IV 1050 / 1050 D5W/LR Inj 1,000 ML @ 125 mls/ 1000 / 1000 hr IV.CONT .Q8H [facility] Rx#: [id number] Ancef 2 GM Premix Inj 2 gm In 50 / 50 50 ml @ 100 mls/hr IV.SIG Q8H [facility] Rx#:[id number] Oral 360 / 360 240 / 240 Output: Stool 200 / 200 1000 / 1000 Urine Amount (Catheter) 800 / 800 1000 / 1000 Indwelling Urethral Catheter 800 / 800 1000 / 1000 Other: Date of Last Bowel Movement 01/25/18 01/25/18 # Bowel Movements 4 # Incontinent Bowel Movements 3 - Constitutional no acute distress - Routine Respiratory Exam Present: CTA bilaterally - Routine Cardiovascular Exam Present: RRR - Routine Abdominal Exam Present: soft - Routine Extremities Exam Comments: no pedal edema. - Routine Neurological Exam Present: alert - Urinary Catheter Management Indwelling Urethral Catheter Cath placed during this visit: yes Reason for continuing: Hourly intake/output Insertion date: 01/23/18 Insertion time: 06:30 Results - Labs CBC & Chem 7: 01/25/18 04:40 01/25/18 04:40 Laboratory Results - last 24 hr 01/25/18 01/25/18 01/25/18 08:05 13:03 17:04 PT INR POC Glucose 122 H 106 92 01/25/18 01/25/18 17:25 20:32 PT 30.9 H INR 3.1 POC Glucose 122 H Microbiology 01/23/18 05:41 Blood - Peripheral Aerobic Blood Culture - Preliminary Staphylococcus aureus 01/23/18 05:41 Blood - Peripheral Anaerobic Blood Culture - Preliminary Staphylococcus aureus 01/23/18 05:26 Blood - Peripheral Aerobic Blood Culture - Preliminary Staphylococcus aureus 01/23/18 05:26 Blood - Peripheral Anaerobic Blood Culture - Preliminary Staphylococcus aureus 01/24/18 08:52 Stool Stool for WBCs - Final No WBC's seen Assessment and Plan - Assessment (1) Bacteremia Code(s): R78.81 - Bacteremia Status: Acute Plan: with MSSA/ history of aortic valve replacement.- TTE with no vegetation- continue Ancef- cardiology consulted for CAMERON. will repeat the blood cultures today-ID following. (2) Septic shock Code(s): A41.9 - Sepsis, unspecified organism; R65.21 - Severe sepsis with septic shock Status: Acute Plan: resolved- continue antibiotic and w/u per ID. (3) TIA (transient ischemic attack) Code(s): G45.9 - Transient cerebral ischemic attack, unspecified Status: Acute Plan: with left sided weakness-with history of cerebral bleed- MRI brain as noted above- on aspirin and Coumadin- neurology following- PT/ST following. - Plan Discharge Planning: patient with bacteremia- w/u in progress per ID- awaiting CAMERON.
[2018-01-26] MEDS: Gentamicin Inj 70 MG in Sodium Chlor 0.9% Inj 100 ML IV.SIG SCH ×2 (09:52→16:49)
[2018-01-26] MEDS: Aspirin 325 MG Tablet PO SCH (09:53)
[2018-01-26] MEDS: Famotidine PF Inj 20 MG/2 ML Vial IV.PUSH SCH ×2 (09:53→21:48)
[2018-01-26] MEDS: Dextrose 5%/Lactated Ringer's 1,000 ML IV.CONT SCH ×3 (09:54→16:54)
[2018-01-26] MEDS: Insulin NovoLOG Aspart Correctional Sugar Inj SQ SCH ×3 (09:55→17:00)
[2018-01-26] MEDS: Senna/Docusate Sodium 8.6/50 MG Tablet PO SCH ×2 (09:55→21:49)
[2018-01-26] MEDS: Famotidine 20 MG Tablet PO SCH ×2 (09:55→21:49)
--- NOTE | 2018-01-26 13:58 | P.PCNCA ---
- Cardiology Procedure Note Procedure: Transesophageal echocardiography [employer] Agent: Florian Escalante MD Indication: Bacteremia and the patient with mechanical aortic valve Procedures in detail: Patient was sedated by anesthesiologist using moderate sedation. The 5 MHz probe passed down the distal esophagus with no difficulty. The aortic, tricuspid, mitral and pulmonic valves were interrogated as well as the atrial septum. Patient tolerated procedure well. Left ventricle: Mild degree of generalized hypokineses Left atrium: Moderately dilated. Left atrial appendage was ligated Right atrium: Normal Right ventricle: Normal Atrial septum: Intact by color flow interrogation and bubble study Ventricular septum: Intact by color flow interrogation and bubble study Aortic valve: Mechanical aortic valve was seen. No obvious vegetation seen. There was trivial aortic insufficiency. Mitral valve: Mild to moderate mitral regurgitation seen. Central jet. Tricuspid valve: Tricuspid annuloplasty ring present with no tricuspid insufficiency Pulmonic valve, normal Aorta: Ascending aorta was normal, aortic root was normal, upper thoracic aorta was normal Conclusion: 1. No evidence of intracardiac vegetation or thrombus 2. Normal functioning aortic mechanical valve with trivial aortic insufficiency 3. Tricuspid annuloplasty with no significant tricuspid regurgitation seen 4. Mild to moderate degree of generalized hypokinesis of the left ventricle 5. Atrial septum was intact by color flow interrogation and bubble study
--- NOTE | 2018-01-26 14:02 | P.PNCA ---
Subjective Interval history: Subjective: This is a 62-year-old white male was admitted for change of mental status and found to have fever and bacteremia. CAMERON was performed and showed no evidence of intracardiac thrombus or endocarditis. Patient tolerated the procedure well. Objective: Chest exam: Clear Cardiovascular exam: S1 and S2 showed clean clinic no gross murmur Abdomen examination: Soft and nontender Assessment: 1. Normal functioning aortic prosthetic valve with no evidence of valvular dysfunction or any evidence of endocarditis 2. Mild to moderate degree of generalized hypokinesis of the left ventricle Plan: No recommendation from cardiac standpoint Physical Exam Vital signs: Vital Signs 01/25/18 14:00 01/25/18 15:00 01/25/18 15:41 Temperature 98.6 F Pulse Rate 76 74 78 Respiratory Rate 18 18 20 Blood Pressure 118/70 100/68 100/68 Pulse Oximetry 98 19 L 01/25/18 16:00 01/25/18 17:00 01/25/18 17:34 Temperature 98.2 F Pulse Rate 78 76 Respiratory Rate 20 23 Blood Pressure Pulse Oximetry 01/25/18 17:40 01/25/18 18:48 01/25/18 19:00 Temperature Pulse Rate 84 Respiratory Rate 22 Blood Pressure 106/71 94/60 L Pulse Oximetry 96 01/25/18 20:00 01/25/18 21:15 01/25/18 21:25 Temperature 100.0 F H 98.3 F 98.2 F Pulse Rate 88 97 H 97 H Respiratory Rate 22 20 20 Blood Pressure 84/64 L 118/73 118/73 Pulse Oximetry 98 95 97 01/25/18 22:00 01/25/18 22:30 01/26/18 00:00 Temperature 98.2 F Pulse Rate 88 91 H Respiratory Rate 20 20 Blood Pressure 147/80 H Pulse Oximetry 96 01/26/18 04:00 01/26/18 07:00 01/26/18 09:50 Temperature 98.1 F 100.2 F H Pulse Rate 88 77 Respiratory Rate 18 20 20 Blood Pressure 140/76 131/77 Pulse Oximetry 97 96 Intake & Output 01/25/18 01/26/18 01/26/18 18:59 06:59 18:59 Intake Total 1460 / 1460 1240 / 1240 Output Total 1000 / 1000 1999 / 1999 Balance 460 / 460 -760 / -760 Weight 67.7 kg Intake: IV 1100 / 1100 1000 / 1000 D5W/LR Inj 1,000 ML @ 125 mls/ 1000 / 1000 1000 / 1000 hr IV.CONT .Q8H [facility] Rx#: [id number] Ancef 2 GM Premix Inj 2 gm In 100 / 100 50 ml @ 100 mls/hr IV.SIG Q8H [facility] Rx#:[id number] Oral 360 / 360 240 / 240 Output: Stool 200 / 200 1000 / 1000 Urine Amount (Catheter) 800 / 800 1000 / 1000 Indwelling Urethral Catheter 800 / 800 1000 / 1000 Other: Date of Last Bowel Movement 01/25/18 01/25/18 # Bowel Movements 4 # Incontinent Bowel Movements 3 - Urinary Catheter Management Indwelling Urethral Catheter Cath placed during this visit: yes Reason for continuing: Hourly intake/output Insertion date: 01/23/18 Insertion time: 06:30
[2018-01-26 21:01] LABS: Baso % (Auto) 0.2 % (0.0-2.0); Eos # (Auto) 0.1 th/mm3 (0.0-0.4); Hematocrit 36.9 % (39.0-51.0); Hemoglobin 12.3 gm/dL (13.0-17.0); Lymph % (Auto) 15.1 % (9.0-44.0); Mean Corpuscular HGB Conc 33.3 % (32.0-36.0); Mean Corpuscular Hemoglobin 31.4 pg (27.0-34.0); Mean Corpuscular Volume 94.3 fL (80.0-100.0); Mean Platelet Volume 9.6 fL (7.0-11.0); Mono # (Auto) 0.8 th/mm3 (0.0-0.9); Mono % (Auto) 12.7 % (0.0-8.0); Neut # (Auto) 4.5 th/mm3 (1.8-7.7); Platelet Count 91 th/mm3 (150-450); Red Blood Count 3.92 mil/mm3 (4.50-5.90); Red Cell Distribution Width 15.1 % (11.6-17.2); White Blood Count 6.3 th/mm3 (4.0-11.0)
[2018-01-26 21:17] LABS: INR 2.8 Ratio; Prothrombin Time 28.4 sec (9.8-11.6)
[2018-01-26 21:26] LABS: Alanine Aminotransferase 27 U/L (12-78); Albumin 2.7 g/dL (3.4-5.0); Alkaline Phosphatase 42 U/L (45-117); Anion Gap 11 meq/L (5-15); Aspartate Aminotransferase 33 U/L (15-37); Blood Urea Nitrogen 5 mg/dL (7-18); Calcium 8.5 mg/dL (8.5-10.1); Carbon Dioxide 25.9 meq/L (21.0-32.0); Chloride 107 meq/L (98-107); Glomerular Filtration Rate Greater Than 89 mL/min (>89); Glucose,Random 96 mg/dL (74-106); Sodium 144 meq/L (136-145); Total Protein 6.1 g/dL (6.4-8.2)
[2018-01-26 22:05] LABS: Potassium 2.7 meq/L (3.5-5.1)
[2018-01-26 22:08] LABS: Platelet Morphology Normal (Normal)
[2018-01-27] MEDS: ceFAZolin 2 GM Premix Inj 2 GM/50 ML PIGGYBACK IV.SIG SCH ×4 (00:20→15:37)
[2018-01-27] MEDS: Gentamicin Inj 70 MG in Sodium Chlor 0.9% Inj 100 ML IV.SIG SCH ×3 (00:21→17:11)
[2018-01-27 05:29] LABS: Hematocrit 30.8 % (39.0-51.0); Hemoglobin 10.6 gm/dL (13.0-17.0); Mean Corpuscular HGB Conc 34.5 % (32.0-36.0); Mean Corpuscular Hemoglobin 32.1 pg (27.0-34.0); Mean Corpuscular Volume 93.2 fL (80.0-100.0); Mean Platelet Volume 9.2 fL (7.0-11.0); Platelet Count 88 th/mm3 (150-450); Red Cell Distribution Width 14.8 % (11.6-17.2); White Blood Count 7.2 th/mm3 (4.0-11.0)
[2018-01-27 05:43] LABS: Albumin 2.3 g/dL (3.4-5.0); Anion Gap 9 meq/L (5-15); Aspartate Aminotransferase 28 U/L (15-37); Blood Urea Nitrogen 6 mg/dL (7-18); Calcium 7.9 mg/dL (8.5-10.1); Carbon Dioxide 25.2 meq/L (21.0-32.0); Chloride 108 meq/L (98-107); Glomerular Filtration Rate Greater Than 89 mL/min (>89); Glucose,Random 112 mg/dL (74-106); Sodium 142 meq/L (136-145)
[2018-01-27 05:49] LABS: Alanine Aminotransferase 21 U/L (12-78); Alkaline Phosphatase 39 U/L (45-117); Total Protein 5.4 g/dL (6.4-8.2)
[2018-01-27 05:55] LABS: INR 2.2 Ratio; Prothrombin Time 22.2 sec (9.8-11.6)
[2018-01-27] MEDS: Insulin NovoLOG Aspart Correctional Sugar Inj SQ SCH ×5 (07:47→21:11)
--- NOTE | 2018-01-27 08:02 | P.PNIM ---
Subjective Interval history: f/u; MSSA bacteremia in no acute distress. afebrile this morning- complaining of back pain. d/w the RN and no acute issues over night. Physical Exam Vital signs: Vital Signs 01/26/18 08:00 01/26/18 09:00 01/26/18 09:50 Temperature 100.2 F H Pulse Rate 77 82 Respiratory Rate 20 20 Blood Pressure 131/77 Pulse Oximetry 96 01/26/18 10:00 01/26/18 11:00 01/26/18 15:00 Temperature 99.2 F Pulse Rate 80 82 76 Respiratory Rate 18 Blood Pressure 112/66 Pulse Oximetry 98 01/26/18 15:21 01/26/18 15:24 01/26/18 16:00 Temperature Pulse Rate 80 Respiratory Rate 22 20 Blood Pressure Pulse Oximetry 01/26/18 16:09 01/26/18 17:00 01/26/18 18:00 Temperature Pulse Rate 72 76 Respiratory Rate 20 Blood Pressure Pulse Oximetry 01/26/18 19:00 01/26/18 19:50 01/26/18 20:00 Temperature 98.1 F Pulse Rate 84 84 84 Respiratory Rate 16 Blood Pressure 112/67 Pulse Oximetry 97 01/26/18 21:49 01/26/18 23:00 01/27/18 00:00 Temperature 98.1 F Pulse Rate 93 H 93 H Respiratory Rate 16 16 18 Blood Pressure 89/61 L Pulse Oximetry 92 L 01/27/18 02:00 01/27/18 03:00 01/27/18 04:00 Temperature 98.1 F Pulse Rate 74 76 76 Respiratory Rate 16 16 Blood Pressure 95/66 L Pulse Oximetry 93 L 01/27/18 05:00 01/27/18 07:35 Temperature Pulse Rate 80 Respiratory Rate 14 Blood Pressure Pulse Oximetry Intake & Output 01/26/18 01/27/18 01/27/18 18:59 06:59 18:59 Intake Total 3103.50 / 3103.50 Output Total 2475 / 2475 Balance 628.50 / 628.50 Intake: IV 2303.50 / 2303.50 D5W/LR Inj 1,000 ML @ 125 mls/ 2000 / 2000 hr IV.CONT .Q8H [facility] Rx#: [id number] Gentamicin Inj 70 MG In NS Inj 203.50 / 203.50 100 ML @ 203.5 mls/hr IV.SIG Q8H [facility] Rx#:[id number] Ancef 2 GM Premix Inj 2 gm In 100 / 100 50 ml @ 100 mls/hr IV.SIG Q8H [facility] Rx#:[id number] Oral 800 / 800 Output: Stool 75 / 75 Urine Amount (Catheter) 2400 / 2400 Indwelling Urethral Catheter 2400 / 2400 Other: Date of Last Bowel Movement 01/26/18 01/26/18 - Constitutional no acute distress - Routine Respiratory Exam Present: CTA bilaterally - Routine Cardiovascular Exam Present: RRR - Routine Abdominal Exam Present: soft - Routine Extremities Exam Comments: no pedal edema. - Routine Neurological Exam Present: alert, oriented X3 - Urinary Catheter Management Indwelling Urethral Catheter Cath placed during this visit: yes Reason for continuing: Hourly intake/output Insertion date: 01/23/18 Insertion time: 06:30 Results - Labs CBC & Chem 7: 01/27/18 03:23 01/27/18 03:23 Laboratory Results - last 24 hr 01/26/18 01/26/18 01/26/18 09:03 14:40 16:59 WBC RBC Hgb Hct MCV MCH MCHC RDW Plt Count MPV Prelim Diff (Auto) Neut % (Auto) Lymph % (Auto) [place] % (Auto) Eos % (Auto) Baso % (Auto) Neut # (Auto) Lymph # (Auto) [place] # (Auto) Eos # (Auto) Baso # (Auto) WBC Differential Diff Scan Differential Comment Platelet Estimate Platelet Morphology PT INR Sodium Potassium Chloride Carbon Dioxide Anion Gap BUN Creatinine Estimated GFR POC Glucose 95 72 105 Random Glucose Calcium Total Bilirubin AST ALT Alkaline Phosphatase Total Protein Albumin 01/26/18 01/26/18 01/26/18 19:58 20:25 20:25 WBC 6.3 RBC 3.92 L Hgb 12.3 L Hct 36.9 L MCV 94.3 MCH 31.4 MCHC 33.3 RDW 15.1 Plt Count 91 L MPV 9.6 Prelim Diff (Auto) Slide review pending Neut % (Auto) 71.0 H Lymph % (Auto) 15.1 [place] % (Auto) 12.7 H Eos % (Auto) 1.0 Baso % (Auto) 0.2 Neut # (Auto) 4.5 Lymph # (Auto) 1.0 [place] # (Auto) 0.8 Eos # (Auto) 0.1 Baso # (Auto) 0.0 WBC Differential . Diff Scan Auto diff confirmed Differential Comment . Platelet Estimate Low L Platelet Morphology Normal PT INR Sodium 144 Potassium 2.7 L* Chloride 107 Carbon Dioxide 25.9 Anion Gap 11 BUN 5 L Creatinine 0.76 Estimated GFR Greater than 89 POC Glucose 101 Random Glucose 96 Calcium 8.5 D Total Bilirubin 0.6 AST 33 ALT 27 Alkaline Phosphatase 42 L Total Protein 6.1 L Albumin 2.7 L 01/26/18 01/27/18 01/27/18 20:25 03:23 03:23 WBC RBC Hgb Hct MCV MCH MCHC RDW Plt Count MPV Prelim Diff (Auto) Neut % (Auto) Lymph % (Auto) [place] % (Auto) Eos % (Auto) Baso % (Auto) Neut # (Auto) Lymph # (Auto) [place] # (Auto) Eos # (Auto) Baso # (Auto) WBC Differential Diff Scan Differential Comment Platelet Estimate Platelet Morphology PT 28.4 H 22.2 H INR 2.8 2.2 Sodium 142 Potassium 3.0 L Chloride 108 H Carbon Dioxide 25.2 Anion Gap 9 BUN 6 L Creatinine 0.75 Estimated GFR Greater than 89 POC Glucose Random Glucose 112 H Calcium 7.9 L Total Bilirubin 0.5 AST 28 ALT 21 Alkaline Phosphatase 39 L Total Protein 5.4 L D Albumin 2.3 L 01/27/18 03:23 WBC 7.2 RBC 3.30 L Hgb 10.6 L Hct 30.8 L MCV 93.2 MCH 32.1 MCHC 34.5 RDW 14.8 Plt Count 88 L MPV 9.2 Prelim Diff (Auto) Neut % (Auto) Lymph % (Auto) [place] % (Auto) Eos % (Auto) Baso % (Auto) Neut # (Auto) Lymph # (Auto) [place] # (Auto) Eos # (Auto) Baso # (Auto) WBC Differential Diff Scan Differential Comment Platelet Estimate Platelet Morphology PT INR Sodium Potassium Chloride Carbon Dioxide Anion Gap BUN Creatinine Estimated GFR POC Glucose Random Glucose Calcium Total Bilirubin AST ALT Alkaline Phosphatase Total Protein Albumin Microbiology 01/23/18 05:41 Blood - Peripheral Aerobic Blood Culture - Final Staphylococcus aureus 01/23/18 05:41 Blood - Peripheral Anaerobic Blood Culture - Final Staphylococcus aureus 01/23/18 05:26 Blood - Peripheral Aerobic Blood Culture - Final Staphylococcus aureus 01/23/18 05:26 Blood - Peripheral Anaerobic Blood Culture - Final Staphylococcus aureus Assessment and Plan - Assessment (1) Bacteremia Code(s): R78.81 - Bacteremia Status: Acute Plan: with MSSA/ history of aortic valve replacement.- TTE and CAMERON with no vegetation - continue Ancef- will follow the repeated blood cultures- ID following. (2) Septic shock Code(s): A41.9 - Sepsis, unspecified organism; R65.21 - Severe sepsis with septic shock Status: Acute Plan: resolved- continue antibiotic and w/u per ID. (3) TIA (transient ischemic attack) Code(s): G45.9 - Transient cerebral ischemic attack, unspecified Status: Acute Plan: with left sided weakness-with history of cerebral bleed- MRI brain as noted above- on aspirin and Coumadin- neurology following- PT/ST following. (4) Hypokalemia Code(s): E87.6 - Hypokalemia Status: Acute Plan: will replace and monitor. - Plan Discharge Planning: patient with bacteremia- repeated blood cultures pending-awaiting ID f/u and recommendations.
[2018-01-27] MEDS: Chlorhexidine Gluconate 2% 1 Pack (2 Cloths) TOPICAL SCH ×2 (09:50→09:56)
[2018-01-27] MEDS: Dextrose 5%/Lactated Ringer's 1,000 ML IV.CONT SCH ×5 (09:51→15:39)
[2018-01-27] MEDS: Pregabalin 75 MG Capsule PO SCH ×2 (09:53→21:10)
[2018-01-27] MEDS: Aspirin 325 MG Tablet PO SCH (09:53)
[2018-01-27] MEDS: Famotidine 20 MG Tablet PO SCH ×3 (09:54→21:10)
[2018-01-27] MEDS: Senna/Docusate Sodium 8.6/50 MG Tablet PO SCH ×3 (09:54→21:10)
[2018-01-27] MEDS: Famotidine PF Inj 20 MG/2 ML Vial IV.PUSH SCH ×2 (09:54→09:57)
--- NOTE | 2018-01-27 16:52 | P.PNID ---
Subjective Remarks: EMMIE Brandt for Dr.Reba Londono. Patient is a 62-year-old male who presented to [facility] ER stating that about 5 and a half hours ago he noticed that his left arm and left foot were weak. He also had slurred speech. Patient stated he does not feel well. Patient has previous history of a hemorrhagic stroke on 2014. This left him with some mild residual sensory deficits in his left hand. Patient also has mechanical heart valve and is on Coumadin. His stated his INR has been elevated in the 4 range for the past week and his Coumadin has been held. 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 After patient arrived in the emergency department he began complaining of severe lower abdominal pain. His mental status appears to be diminishing as well. CT head and CTA neck were normal.Dr. Person neurology was contacted by ER physician and as patient was not felt to be a candidate for thrombolysis due to the fact that he was on Coumadin with an elevated INR stroke alert was not called. Patient was accepted for admission by hospitalist service to [place]. Subsequently patient developed a fever with hypotension. He received 3 L normal saline bolus and was started on Levophed for pressor support and empiric antibiotic coverage at the [place] ER. CT of the abdomen and pelvis revealed the following:Abdomen/Pelvis CT 01/22/18 20:36 CONCLUSION: 1. Overall no significant change compared with October. 2. There is periportal edema in the liver. Stable cystic lesion in right upper quadrant as above. Mild ileus. Mild constipation. Numerous compression deformities in the lower thoracic and lumbar spine, stable with extensive osteopenia. Patient was transferred to the ICU at [facility] for severe sepsis. Patient was then transferred to [facility] for CAMERON as patient was found to have MSSA bacteremia and there was concern for endocarditis given patient has a mechanical prosthetic aortic valve. Overnight events reviewed No fevers No rash No diarrhea CAMERON negative. No CP. Antibiotics: Cefazolin Genta IV Lines: Peripheral IV Line Past Medical History: AVR Chronic back pain CVA Allergies/Adverse Reactions: Allergies No Known Allergies Allergy (Unverified 01/22/18 20:19) Objective Vital Signs 01/26/18 17:00 01/26/18 18:00 01/26/18 19:00 Temperature 98.1 F Pulse Rate 72 76 84 Respiratory Rate 16 Blood Pressure 112/67 Pulse Oximetry 97 01/26/18 19:50 01/26/18 20:00 01/26/18 21:49 Temperature Pulse Rate 84 84 Respiratory Rate 16 Blood Pressure Pulse Oximetry 01/26/18 23:00 01/27/18 00:00 01/27/18 02:00 Temperature 98.1 F Pulse Rate 93 H 93 H 74 Respiratory Rate 16 18 Blood Pressure 89/61 L Pulse Oximetry 92 L 01/27/18 03:00 01/27/18 04:00 01/27/18 05:00 Temperature 98.1 F Pulse Rate 76 76 80 Respiratory Rate 16 16 Blood Pressure 95/66 L Pulse Oximetry 93 L 01/27/18 07:00 01/27/18 07:35 01/27/18 08:00 Temperature Pulse Rate 86 92 H Respiratory Rate 14 Blood Pressure Pulse Oximetry 01/27/18 09:00 01/27/18 10:00 01/27/18 11:00 Temperature Pulse Rate 86 92 H 87 Respiratory Rate Blood Pressure Pulse Oximetry 01/27/18 11:52 01/27/18 12:00 01/27/18 13:00 Temperature 98.6 F Pulse Rate 87 84 Respiratory Rate 16 19 Blood Pressure 103/61 Pulse Oximetry 92 L 01/27/18 14:00 01/27/18 15:00 01/27/18 15:37 Temperature Pulse Rate 87 83 Respiratory Rate 20 Blood Pressure Pulse Oximetry 01/27/18 16:00 Temperature 98.2 F Pulse Rate 80 Respiratory Rate 18 Blood Pressure 131/71 Pulse Oximetry 95 Intake & Output 01/26/18 01/27/18 01/27/18 18:59 06:59 18:59 Intake Total 3103.50 / 3103.50 1050 / 1050 4697.75 / 4697.75 Output Total 2475 / 2475 Balance 628.50 / 628.50 1050 / 1050 4697.75 / 4697.75 Weight 56 kg Intake: IV 2303.50 / 2303.50 1050 / 1050 4697.75 / 4697.75 D5W/LR Inj 1,000 ML @ 125 mls/ 2000 / 2000 1000 / 1000 4000 / 4000 hr IV.CONT .Q8H [facility] Rx#: [id number] Pitressin Inj 40 UNIT In D5W 196 / 196 Inj 98 ML @ 0.04 UNITS/MIN 6 mls/hr IV.CONT CONT [facility] Rx#: [id number] Gentamicin Inj 70 MG In NS Inj 203.50 / 203.50 301.75 / 301.75 100 ML @ 203.5 mls/hr IV.SIG Q8H [facility] Rx#:[id number] KCl 20 mEq Premix Inj 20 meq In 100 / 100 100 ml @ 50 mls/hr IV.SIG Q2H PRN Rx#:[id number] Ancef 2 GM Premix Inj 2 gm In 100 / 100 50 / 50 100 / 100 50 ml @ 100 mls/hr IV.SIG Q8H [facility] Rx#:[id number] Oral 800 / 800 Output: Stool 75 / 75 Urine Amount (Catheter) 2400 / 2400 Indwelling Urethral Catheter 2400 / 2400 Other: Date of Last Bowel Movement 01/26/18 01/26/18 01/27/18 01/26/18 20:20 Blood - Peripheral Aerobic Blood Culture - Preliminary No growth in 1 day 01/26/18 20:20 Blood - Peripheral Anaerobic Blood Culture - Preliminary No growth in 1 day 01/26/18 20:25 Blood - Peripheral Aerobic Blood Culture - Preliminary No growth in 1 day 01/26/18 20:25 Blood - Peripheral Anaerobic Blood Culture - Preliminary No growth in 1 day 01/23/18 05:41 Blood - Peripheral Aerobic Blood Culture - Final Staphylococcus aureus 01/23/18 05:41 Blood - Peripheral Anaerobic Blood Culture - Final Staphylococcus aureus 01/23/18 05:26 Blood - Peripheral Aerobic Blood Culture - Final Staphylococcus aureus 01/23/18 05:26 Blood - Peripheral Anaerobic Blood Culture - Final Staphylococcus aureus 01/24/18 08:52 Stool Stool for WBCs - Final No WBC's seen 01/24/18 08:52 Stool Enteric Pathogens (PCR) - Final No enteric pathogens detected by PCR (No Salmonella sp., Shigella sp., Campylobacter sp., Yersinia enterocolitica, Vibrio sp., Norovirus, or EHEC (Shiga Toxin 1 or Shiga Toxin 2) detected. Lab - Hematology Results 01/26/18 01/27/18 20:25 03:23 WBC 6.3 7.2 RBC 3.92 L 3.30 L Hgb 12.3 L 10.6 L Hct 36.9 L 30.8 L MCV 94.3 93.2 MCH 31.4 32.1 MCHC 33.3 34.5 RDW 15.1 14.8 Plt Count 91 L 88 L MPV 9.6 9.2 Prelim Diff (Auto) Slide review pending Neut % (Auto) 71.0 H Lymph % (Auto) 15.1 [place] % (Auto) 12.7 H Eos % (Auto) 1.0 Baso % (Auto) 0.2 Neut # (Auto) 4.5 Lymph # (Auto) 1.0 [place] # (Auto) 0.8 Eos # (Auto) 0.1 Baso # (Auto) 0.0 WBC Differential . Diff Scan Auto diff confirmed Differential Comment . Platelet Estimate Low L Platelet Morphology Normal Lab - Chemistry Results 01/25/18 01/25/18 01/26/18 17:04 20:32 09:03 Sodium Potassium Chloride Carbon Dioxide Anion Gap BUN Creatinine Estimated GFR POC Glucose 92 122 H 95 Random Glucose Calcium Total Bilirubin AST ALT Alkaline Phosphatase Total Protein Albumin 01/26/18 01/26/18 01/26/18 14:40 16:59 19:58 Sodium Potassium Chloride Carbon Dioxide Anion Gap BUN Creatinine Estimated GFR POC Glucose 72 105 101 Random Glucose Calcium Total Bilirubin AST ALT Alkaline Phosphatase Total Protein Albumin 01/26/18 01/27/18 01/27/18 20:25 03:23 09:39 Sodium 144 142 Potassium 2.7 L* 3.0 L Chloride 107 108 H Carbon Dioxide 25.9 25.2 Anion Gap 11 9 BUN 5 L 6 L Creatinine 0.76 0.75 Estimated GFR Greater than 89 Greater than 89 POC Glucose 137 H Random Glucose 96 112 H Calcium 8.5 D 7.9 L Total Bilirubin 0.6 0.5 AST 33 28 ALT 27 21 Alkaline Phosphatase 42 L 39 L Total Protein 6.1 L 5.4 L D Albumin 2.7 L 2.3 L 01/27/18 01/27/18 11:50 16:09 Sodium Potassium Chloride Carbon Dioxide Anion Gap BUN Creatinine Estimated GFR POC Glucose 112 H 121 H Random Glucose Calcium Total Bilirubin AST ALT Alkaline Phosphatase Total Protein Albumin Imaging: ITS Impressions Head MRI 01/23/18 00:00 CONCLUSION: 1. No acute intracranial abnormality is seen. 2. Suspected prior hemorrhage and an area of encephalomalacia at the medial right temporal region extending to the white matter adjacent to the posterior horn of the right lateral ventricle. 3. Focal linear low signal seen in the posterior external capsule region on the left likely from prior hemorrhage. Chest X-Ray 01/24/18 05:00 CONCLUSION: 1. No significant interval change. 2. Minimal bibasilar, right greater than left, airspace disease. Physical Exam: Alert , Oriented x 3 Pallor No icterus Chest : Clear Heart SM Abdomen: Soft non tender bowel sounds present Left sided weakness Assessment and Plan (1) Staph aureus infection Status: Acute Code(s): A49.01 - Methicillin susceptible Staphylococcus aureus infection, unspecified site (2) H/O aortic valve replacement Status: Acute Code(s): Z95.2 - Presence of prosthetic heart valve (3) Bacteremia Status: Acute Code(s): R78.81 - Bacteremia - Plan Severe Sepsis MSSA bacteremia in setting of AVR mechanical. CAMERON negative but would still treat as MSSA endocarditis. Recs: Continue Cefazolin IV DC Genta IV Rifampin and Warfarin drug interaction will hold off on starting for now. Will check with Pharmacist and decide. dw Dr.Reba Londono agrees to be treated as endocarditis in view of prosthetic valve. Follow cultures Follow clinically. CT Chest abd pelvis to look for evidence of dissemination. Please call with CT C/A/P results if any abnormal findings s/o infectious process like septic emboli or abscesses etc. I will be OOT from 01/28/2018. Other ID MDs to cover for .
--- NOTE | 2018-01-27 17:23 | P.PNNEU ---
Subjective Subjective Comments: No acute events reported No headache states left sided strength normal Active Medications: Active Medications Acetaminophen (Tylenol) 650 mg PO Q6H PRN PRN Reason: PAIN 1-10 AND/OR FEVER >101F Last Admin: 01/23/18 14:47 Dose: 650 mg Hydrocodone Bitart/Acetaminophen ([place] 10/325) 1 tab PO Q4H PRN PRN Reason: PAIN SCALE 1 TO 5 OR COUGHING Last Admin: 01/27/18 15:37 Dose: 1 tab Hydrocodone Bitart/Acetaminophen ([place] 5/325) 1 tab PO Q4H PRN PRN Reason: PAIN SCALE 6 TO 10 OR COUGHING Al Hydroxide/Mg Hydroxide (Milk Of Magnesia Liq) 30 ml PO Q12H PRN PRN Reason: Mild Constipation Albuterol (Albuterol Neb (Prn)) 2.5 mg NEB Q2HR NEB PRN PRN Reason: SHORTNESS OF BREATH/WHEEZING Aspirin (Aspirin Chew) 81 mg PO DAILY [facility] Bisacodyl (Dulcolax Supp) 10 mg RECTAL DAILY PRN PRN Reason: SEVERE CONSITIPATION Chlorhexidine Gluconate (Chlorhexidine 2% Cloth) 3 pack TOPICAL DAILY@0400 [facility] Stop: 01/29/18 03:59 Last Admin: 01/27/18 09:56 Dose: Not Given Chlorhexidine Gluconate (Chlorhexidine 2% Cloth) 3 pack TOPICAL DAILY@0400 PRN PRN Reason: Extra cloth needed Stop: 01/29/18 03:59 Dextrose (D50w Vial) 50 ml IV.PUSH UNSCH PRN PRN Reason: PER HYPOGLYCEMIA PROTOCOL Duloxetine HCl (Cymbalta) 90 mg PO DAILY [facility] Last Admin: 01/27/18 09:54 Dose: 90 mg Famotidine (Pepcid) 20 mg PO BID [facility] Last Admin: 01/27/18 09:56 Dose: Not Given Glucagon (Glucagon Inj) 1 mg OTHER UNSCH PRN PRN Reason: per Hypoglycemic Protocol Pharmacy Profile Note (Coumadin Consult Pharmacy) 0 mls @ 0 mls/hr OTHER UNSCH [facility] Vasopressin 40 unit/ Dextrose 100 mls @ 6 mls/hr IV.CONT CONT [facility]; Protocol Last Infusion: 01/27/18 14:35 Dose: Infused Dextrose/Lactated Ringer's (D5w/Lr Inj) 1,000 mls @ 125 mls/hr IV.CONT .Q8H [facility] Last Infusion: 01/27/18 15:39 Dose: Infused Cefazolin Sodium/Dextrose (Ancef 2 Gm Premix Inj) 2 gm in 50 mls @ 100 mls/hr IV.SIG Q8H [facility] Last Admin: 01/27/18 15:37 Dose: 50 mls/hr Gentamicin Sulfate 70 mg/ (Sodium Chloride) 101.75 mls @ 203.5 mls/hr IV.SIG Q8H [facility] Last Admin: 01/27/18 17:11 Dose: 200 mls/hr Pharmacy Profile Note (Gentamicin Consult Pharmacy) 0 mls @ 0 mls/hr OTHER UNSCH [facility] Insulin Aspart (Novolog Insulin Suppl Scale Inj) 0 unit SQ ACHS [facility]; Protocol Last Admin: 01/27/18 11:51 Dose: Not Given Lactulose (Lactulose Liq) 30 ml PO DAILY PRN PRN Reason: SEVERE CONSITIPATION Pregabalin (Lyrica) 75 mg PO BID [facility] Last Admin: 01/27/18 09:53 Dose: 75 mg Senna/Docusate Sodium (Linda-Colace) 1 tab PO BID [facility] Last Admin: 01/27/18 09:54 Dose: 1 tab Sennosides (Senokot) 17.2 mg PO Q12H PRN PRN Reason: Moderate Constipation Sodium Chloride (Ns Flush) 2 ml IV.FLUSH BID [facility] Last Admin: 01/27/18 09:56 Dose: Not Given Sodium Chloride (Ns Flush) 2 ml IV.FLUSH PRN PRN PRN Reason: FLUSH AFTER USING IV ACCESS Last Admin: 01/25/18 22:31 Dose: 2 ml Warfarin Sodium (Coumadin) 4 mg PO DAILY@1600 [facility] Last Admin: 01/27/18 15:37 Dose: 4 mg Allergies/Adverse Reactions: Allergies Allergy/AdvReac Type Severity Reaction Status Date / Time No Known Allergies Allergy Unverified 01/22/18 20:19 Physical Exam Vital signs: Vital Signs 01/26/18 18:00 01/26/18 19:00 01/26/18 19:50 Temperature 98.1 F Pulse Rate 76 84 84 Respiratory Rate 16 Blood Pressure 112/67 Pulse Oximetry 97 01/26/18 20:00 01/26/18 21:49 01/26/18 23:00 Temperature 98.1 F Pulse Rate 84 93 H Respiratory Rate 16 16 Blood Pressure 89/61 L Pulse Oximetry 92 L 01/27/18 00:00 01/27/18 02:00 01/27/18 03:00 Temperature 98.1 F Pulse Rate 93 H 74 76 Respiratory Rate 18 16 Blood Pressure 95/66 L Pulse Oximetry 93 L 01/27/18 04:00 01/27/18 05:00 01/27/18 07:00 Temperature Pulse Rate 76 80 86 Respiratory Rate 16 Blood Pressure Pulse Oximetry 01/27/18 07:35 01/27/18 08:00 01/27/18 09:00 Temperature Pulse Rate 92 H 86 Respiratory Rate 14 Blood Pressure Pulse Oximetry 01/27/18 10:00 01/27/18 11:00 01/27/18 11:52 Temperature Pulse Rate 92 H 87 Respiratory Rate 16 Blood Pressure Pulse Oximetry 01/27/18 12:00 01/27/18 13:00 01/27/18 14:00 Temperature 98.6 F Pulse Rate 87 84 87 Respiratory Rate 19 Blood Pressure 103/61 Pulse Oximetry 92 L 01/27/18 15:00 01/27/18 15:37 01/27/18 16:00 Temperature 98.2 F Pulse Rate 83 80 Respiratory Rate 20 18 Blood Pressure 131/71 Pulse Oximetry 95 Intake & Output 01/26/18 01/27/18 01/27/18 18:59 06:59 18:59 Intake Total 3103.50 / 3103.50 1050 / 1050 4697.75 / 4697.75 Output Total 2475 / 2475 Balance 628.50 / 628.50 1050 / 1050 4697.75 / 4697.75 Weight 56 kg Intake: IV 2303.50 / 2303.50 1050 / 1050 4697.75 / 4697.75 D5W/LR Inj 1,000 ML @ 125 mls/ 2000 / 2000 1000 / 1000 4000 / 4000 hr IV.CONT .Q8H [facility] Rx#: [id number] Pitressin Inj 40 UNIT In D5W 196 / 196 Inj 98 ML @ 0.04 UNITS/MIN 6 mls/hr IV.CONT CONT [facility] Rx#: [id number] Gentamicin Inj 70 MG In NS Inj 203.50 / 203.50 301.75 / 301.75 100 ML @ 203.5 mls/hr IV.SIG Q8H [facility] Rx#:[id number] KCl 20 mEq Premix Inj 20 meq In 100 / 100 100 ml @ 50 mls/hr IV.SIG Q2H PRN Rx#:[id number] Ancef 2 GM Premix Inj 2 gm In 100 / 100 50 / 50 100 / 100 50 ml @ 100 mls/hr IV.SIG Q8H [facility] Rx#:[id number] Oral 800 / 800 Output: Stool 75 / 75 Urine Amount (Catheter) 2400 / 2400 Indwelling Urethral Catheter 2400 / 2400 Other: Date of Last Bowel Movement 01/26/18 01/26/18 01/27/18 - Routine Neurological Exam alert, speech normal CN intact MOTOR- 5/5 BUE and BLE - Urinary Catheter Management Indwelling Urethral Catheter Cath placed during this visit: yes Reason for continuing: Hourly intake/output Insertion date: 01/23/18 Insertion time: 06:30 Objective Laboratory Results - last 24 hr 01/26/18 01/26/18 01/26/18 16:59 19:58 20:25 WBC 6.3 RBC 3.92 L Hgb 12.3 L Hct 36.9 L MCV 94.3 MCH 31.4 MCHC 33.3 RDW 15.1 Plt Count 91 L MPV 9.6 Prelim Diff (Auto) Slide review pending Neut % (Auto) 71.0 H Lymph % (Auto) 15.1 [place] % (Auto) 12.7 H Eos % (Auto) 1.0 Baso % (Auto) 0.2 Neut # (Auto) 4.5 Lymph # (Auto) 1.0 [place] # (Auto) 0.8 Eos # (Auto) 0.1 Baso # (Auto) 0.0 WBC Differential . Diff Scan Auto diff confirmed Differential Comment . Platelet Estimate Low L Platelet Morphology Normal PT INR Sodium Potassium Chloride Carbon Dioxide Anion Gap BUN Creatinine Estimated GFR POC Glucose 105 101 Random Glucose Calcium Total Bilirubin AST ALT Alkaline Phosphatase Total Protein Albumin 01/26/18 01/26/18 01/27/18 20:25 20:25 03:23 WBC RBC Hgb Hct MCV MCH MCHC RDW Plt Count MPV Prelim Diff (Auto) Neut % (Auto) Lymph % (Auto) [place] % (Auto) Eos % (Auto) Baso % (Auto) Neut # (Auto) Lymph # (Auto) [place] # (Auto) Eos # (Auto) Baso # (Auto) WBC Differential Diff Scan Differential Comment Platelet Estimate Platelet Morphology PT 28.4 H 22.2 H INR 2.8 2.2 Sodium 144 Potassium 2.7 L* Chloride 107 Carbon Dioxide 25.9 Anion Gap 11 BUN 5 L Creatinine 0.76 Estimated GFR Greater than 89 POC Glucose Random Glucose 96 Calcium 8.5 D Total Bilirubin 0.6 AST 33 ALT 27 Alkaline Phosphatase 42 L Total Protein 6.1 L Albumin 2.7 L 01/27/18 01/27/18 01/27/18 03:23 03:23 09:39 WBC 7.2 RBC 3.30 L Hgb 10.6 L Hct 30.8 L MCV 93.2 MCH 32.1 MCHC 34.5 RDW 14.8 Plt Count 88 L MPV 9.2 Prelim Diff (Auto) Neut % (Auto) Lymph % (Auto) [place] % (Auto) Eos % (Auto) Baso % (Auto) Neut # (Auto) Lymph # (Auto) [place] # (Auto) Eos # (Auto) Baso # (Auto) WBC Differential Diff Scan Differential Comment Platelet Estimate Platelet Morphology PT INR Sodium 142 Potassium 3.0 L Chloride 108 H Carbon Dioxide 25.2 Anion Gap 9 BUN 6 L Creatinine 0.75 Estimated GFR Greater than 89 POC Glucose 137 H Random Glucose 112 H Calcium 7.9 L Total Bilirubin 0.5 AST 28 ALT 21 Alkaline Phosphatase 39 L Total Protein 5.4 L D Albumin 2.3 L 01/27/18 01/27/18 11:50 16:09 WBC RBC Hgb Hct MCV MCH MCHC RDW Plt Count MPV Prelim Diff (Auto) Neut % (Auto) Lymph % (Auto) [place] % (Auto) Eos % (Auto) Baso % (Auto) Neut # (Auto) Lymph # (Auto) [place] # (Auto) Eos # (Auto) Baso # (Auto) WBC Differential Diff Scan Differential Comment Platelet Estimate Platelet Morphology PT INR Sodium Potassium Chloride Carbon Dioxide Anion Gap BUN Creatinine Estimated GFR POC Glucose 112 H 121 H Random Glucose Calcium Total Bilirubin AST ALT Alkaline Phosphatase Total Protein Albumin Microbiology 01/26/18 20:20 Aerobic Blood Culture - Preliminary Blood - Peripheral No growth in 1 day Anaerobic Blood Culture - Preliminary No growth in 1 day 01/26/18 20:25 Aerobic Blood Culture - Preliminary Blood - Peripheral No growth in 1 day Anaerobic Blood Culture - Preliminary No growth in 1 day Review/Management - Diagnosis (1) TIA (transient ischemic attack) Code(s): G45.9 - Transient cerebral ischemic attack, unspecified Status: Acute Current Visit: Yes - Review/Management Plan: Continue coumadin and asa Ok from neurology standpoint to dc when ok with infectious disease.
[2018-01-28] MEDS: ceFAZolin 2 GM Premix Inj 2 GM/50 ML PIGGYBACK IV.SIG SCH ×3 (00:49→15:19)
[2018-01-28] MEDS: Dextrose 5%/Lactated Ringer's 1,000 ML IV.CONT SCH ×3 (01:23→15:20)
[2018-01-28] MEDS: Chlorhexidine Gluconate 2% 1 Pack (2 Cloths) TOPICAL SCH (04:48)
[2018-01-28 06:46] LABS: INR 1.4 Ratio
[2018-01-28] MEDS: Insulin NovoLOG Aspart Correctional Sugar Inj SQ SCH ×4 (07:55→16:48)
[2018-01-28 08:17] LABS: Alanine Aminotransferase 20 U/L (12-78); Albumin 2.6 g/dL (3.4-5.0); Anion Gap 12 meq/L (5-15); Aspartate Aminotransferase 24 U/L (15-37); Blood Urea Nitrogen 5 mg/dL (7-18); Calcium 8.4 mg/dL (8.5-10.1); Carbon Dioxide 25.1 meq/L (21.0-32.0); Chloride 103 meq/L (98-107); Glomerular Filtration Rate Greater Than 89 mL/min (>89); Glucose,Random 108 mg/dL (74-106); Potassium 3.2 meq/L (3.5-5.1); Sodium 140 meq/L (136-145)
[2018-01-28 08:18] LABS: Alkaline Phosphatase 48 U/L (45-117); Total Protein 6.1 g/dL (6.4-8.2)
[2018-01-28] MEDS: Famotidine 20 MG Tablet PO SCH ×2 (08:18→21:48)
[2018-01-28] MEDS: Pregabalin 75 MG Capsule PO SCH ×2 (08:18→21:49)
[2018-01-28] MEDS: Senna/Docusate Sodium 8.6/50 MG Tablet PO SCH ×2 (08:19→21:49)
--- NOTE | 2018-01-28 12:16 | CT ---
EXAM DATE: 01/28/2018 12:02 PM EDT AGE/SEX: 62 years / Male INDICATIONS: Left sided chest pain and diffuse abdomen pain. CLINICAL DATA: This is the patient's initial encounter. Patient reports that signs and symptoms have been present for 2 days and indicates a pain score of 5/10. MEDICAL/SURGICAL HISTORY: Chronic obstructive pulmonary disease. Stroke. rhabdomyolysis None. RADIATION DOSE: 5.13 CTDI (mGy) ; Combined studies COMPARISON: [facility], CHEST 1V SINGLE AP, 01/24/2018. [facility], CHEST 1V SINGLE AP, 01/22/2018. [facility], CT T HORAX W CONTRAST, 10/20/2017. . TECHNIQUE: Multiple contiguous axial images were obtained through the chest during bolus infusion of 96 ml Omnipaque 350 (iohexol) nonionic water-soluble contrast as a cumulative dose for multiple exa ms. Images were obtained in suspended respiration using multiple row detector helical technique. U sing automated exposure control and adjustment of the mA and/or kV according to patient size, radiati on dose was kept as low as reasonably achievable to obtain optimal diagnostic quality images. DICOM format image data is available electronically for review and comparison. FINDINGS: Lungs: The lungs are significant for new areas of groundglass opacity with adjacent interstitial thi ckening identified throughout the right upper and left upper lobes with relative sparing of the right middle lobe and bilateral lower lobes. There is new bilateral small pleural effusions with adjacent compressive atelectasis. Mediastinum: There is good visualization of the great vessels of the middle mediastinum. No evidenc e of mediastinal or hilar adenopathy/mass. Pleurae: Bilateral pleural effusions, small. Axillae: Unremarkable. Bony Structures: Extensive degenerative changes. No lytic or blastic lesion seen. Miscellaneous: The examination was extended to include the upper abdomen, and both adrenal glands ar e normal in size and configuration. CONCLUSION: 1. New bilateral small pleural effusions with adjacent compressive atelectasis. New areas of groundg lass opacity with adjacent interstitial thickening. Given the interval development from the prior exa m this likely reflects an infectious process. Electronically signed by: Jeannette Ricci MD 01/28/2018 12:15 PM EDT
--- NOTE | 2018-01-28 12:17 | CT ---
EXAM DATE: 01/28/2018 12:02 PM EDT AGE/SEX: 62 years / Male INDICATIONS: Left sided chest pain and diffuse abdomen pain. CLINICAL DATA: This is the patient's initial encounter. Patient reports that signs and symptoms have been present for 2 days and indicates a pain score of 5/10. MEDICAL/SURGICAL HISTORY: Chronic obstructive pulmonary disease. Stroke. rhabdomyolysis None. ORAL CONTRAST: No oral contrast ingested. RADIATION DOSE: 5.13 CTDI (mGy) COMPARISON: [facility], CT ABDOMEN & PELVIS W CONTRAST, 01/22/2018. . TECHNIQUE: Multiple contiguous axial images were obtained through the abdomen and pelvis following b olus infusion of 96 ml Omnipaque 350 (iohexol) nonionic water-soluble contrast as a cumulative dose for multiple exams. No oral contrast ingested. Using automated exposure control and adjustment of t he mA and/or kV according to patient size, radiation dose was kept as low as reasonably achievable to obtain optimal diagnostic quality images. DICOM format image data is available electronically for r eview and comparison. FINDINGS: Moderate size bilateral pleural effusions are identified. There is subsegmental atelectasis in the jimmie th bases. Coronary artery calcifications are present. There is decreased density of the liver with re spect to the spleen compatible with fatty infiltration. The spleen is unremarkable. There continues t o be periportal edema with a small contracted gallbladder and a small amount of fluid. There is previ ous embolization of the gastroduodenal artery. The pancreas demonstrates no evidence of mass and ther e is no dilatation of the pancreatic duct. The adrenal glands are unremarkable. There is a single si mple cyst in the right kidney measuring 3 cm. There is no evidence of abscess. There is diffuse edema in the subcutaneous tissues consistent with anasarca. Examination of the pelvis demonstrates no evidence of free fluid or pelvic mass. No abnormally enlarg ed inguinal or retroperitoneal lymph nodes are present. A Cano catheter is present within the bladde r which does not allow for evaluation. A rectal tube is present small amount of free fluid is presen t within the pelvis. CONCLUSION: No evidence of acute abdominal or pelvic process. No masses are identified. Bilateral effusions and bibasilar atelectasis Anasarca Electronically signed by: Dejon Mcclure MD 01/28/2018 12:16 PM EDT
--- NOTE | 2018-01-28 17:37 | P.PNFP ---
Subjective Interval history: LATE ENTRY NOTE, PATIENT SEEN EARLIER TODAY Pt seen and examined for f/u of staph bacteremia. AFVSS. No acute events overnight. 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 Denies CP, SOB, abdominal pain, N/V, cough. Results - Labs Result diagrams: 01/27/18 03:23 01/28/18 04:58 Abnormal lab results 01/27/18 01/28/18 01/28/18 Range/Units 20:34 04:58 04:58 PT 14.0 H (9.8-11.6) sec Potassium 3.2 L (3.5-5.1) meq/L BUN 5 L (7-18) mg/dL Creatinine 0.55 L (0.60-1.30) mg/dL POC Glucose 162 H (68-110) mg/dl Random Glucose 108 H (74-106) mg/dL Calcium 8.4 L (8.5-10.1) mg/dL Total Protein 6.1 L D (6.4-8.2) g/dL Albumin 2.6 L (3.4-5.0) g/dL 01/28/18 Range/Units 11:23 PT (9.8-11.6) sec Potassium (3.5-5.1) meq/L BUN (7-18) mg/dL Creatinine (0.60-1.30) mg/dL POC Glucose 140 H (68-110) mg/dl Random Glucose (74-106) mg/dL Calcium (8.5-10.1) mg/dL Total Protein (6.4-8.2) g/dL Albumin (3.4-5.0) g/dL BMP 01/28/18 04:58 Sodium 140 Potassium 3.2 L Chloride 103 Carbon Dioxide 25.1 BUN 5 L Creatinine 0.55 L Calcium 8.4 L Liver Function 01/28/18 Range/Units 04:58 Total Bilirubin 0.6 (0.2-1.0) mg/dL AST 24 (15-37) U/L ALT 20 (12-78) U/L Alkaline Phosphatase 48 (45-117) U/L Albumin 2.6 L (3.4-5.0) g/dL - Imaging Impressions Abdomen/Pelvis CT 01/28/18 00:00 CONCLUSION: No evidence of acute abdominal or pelvic process. No masses are identified. Bilateral effusions and bibasilar atelectasis Anasarca Chest CT 01/28/18 00:00 CONCLUSION: 1. New bilateral small pleural effusions with adjacent compressive atelectasis. New areas of groundglass opacity with adjacent interstitial thickening. Given the interval development from the prior exam this likely reflects an infectious process. Physical Exam Vital signs: Vital Signs 01/27/18 18:00 01/27/18 19:00 01/27/18 20:00 Temperature 98 F Pulse Rate 92 H 94 H 88 Respiratory Rate 16 Blood Pressure 117/84 Pulse Oximetry 92 L 01/27/18 21:00 01/27/18 21:10 01/27/18 22:00 Temperature Pulse Rate 88 86 Respiratory Rate 16 Blood Pressure Pulse Oximetry 01/27/18 23:00 01/28/18 00:00 01/28/18 01:00 Temperature 98 F Pulse Rate 97 H 86 90 Respiratory Rate 16 Blood Pressure 116/66 Pulse Oximetry 92 L 01/28/18 01:22 01/28/18 02:00 01/28/18 03:00 Temperature Pulse Rate 82 83 Respiratory Rate 16 Blood Pressure Pulse Oximetry 01/28/18 04:00 01/28/18 05:00 01/28/18 06:00 Temperature 98 F Pulse Rate 77 73 78 Respiratory Rate 16 Blood Pressure 123/68 Pulse Oximetry 96 01/28/18 07:00 01/28/18 07:54 01/28/18 08:00 Temperature 98.2 F Pulse Rate 86 88 Respiratory Rate 20 18 Blood Pressure 125/73 Pulse Oximetry 95 01/28/18 09:00 01/28/18 10:00 01/28/18 11:00 Temperature Pulse Rate 82 104 H 82 Respiratory Rate Blood Pressure Pulse Oximetry 01/28/18 11:28 01/28/18 12:00 01/28/18 13:00 Temperature 98.0 F Pulse Rate 84 82 Respiratory Rate 20 18 Blood Pressure 111/70 Pulse Oximetry 95 01/28/18 14:00 01/28/18 15:00 01/28/18 15:19 Temperature Pulse Rate 95 H 86 Respiratory Rate 20 Blood Pressure Pulse Oximetry 01/28/18 16:00 01/28/18 17:00 Temperature 98.9 F Pulse Rate 91 H 98 H Respiratory Rate 19 Blood Pressure 124/73 Pulse Oximetry 94 L Intake & Output 01/27/18 01/28/18 01/28/18 18:59 06:59 18:59 Intake Total 6047.75 / 6047.75 580 / 580 2170 / 2170 Output Total 4200 / 4200 1650 / 1650 2049 / 2049 Balance 1847.75 / 1847.75 -1070 / -1070 120 / 120 Weight 66 kg Intake: IV 4847.75 / 4847.75 100 / 100 1150 / 1150 D5W/LR Inj 1,000 ML @ 125 mls/ 4000 / 4000 100 / 100 1000 / 1000 hr IV.CONT .Q8H [facility] Rx#: [id number] Pitressin Inj 40 UNIT In D5W 196 / 196 Inj 98 ML @ 0.04 UNITS/MIN 6 mls/hr IV.CONT CONT [facility] Rx#: [id number] Gentamicin Inj 70 MG In NS Inj 401.75 / 401.75 100 ML @ 203.5 mls/hr IV.SIG Q8H [facility] Rx#:[id number] KCl 20 mEq Premix Inj 20 meq In 100 / 100 100 ml @ 50 mls/hr IV.SIG Q2H PRN Rx#:[id number] Ancef 2 GM Premix Inj 2 gm In 150 / 150 150 / 150 50 ml @ 100 mls/hr IV.SIG Q8H [facility] Rx#:[id number] Oral 1200 / 1200 480 / 480 1020 / 1020 Output: Urine 1750 / 1750 Stool 300 / 300 Urine Amount (Catheter) 4200 / 4200 1650 / 1650 Indwelling Urethral Catheter 4200 / 4200 1650 / 1650 Other: Date of Last Bowel Movement 01/27/18 01/28/18 01/28/18 Narrative: GENERAL: WN, WD male resting in bed in [place]. SKIN: Warm and dry. HEENT: AT/NC. Pupils equal and round. MMM. NECK: Supple no tender LAD or JVD. HEART: RRR no m/r/g. LUNGS: Diffuse inspiratory wheezing. ABDOMEN: +BS, soft, NT, ND. EXTREMITIES: No LE edema. NEURO: Awake and alert. Nonfocal. PSYCH: Appropriate mood and affect. Hyperverbal. - Urinary Catheter Management Indwelling Urethral Catheter Cath placed during this visit: yes Reason for continuing: Hourly intake/output Insertion date: 01/23/18 Insertion time: 06:30 Assessment and Plan - Assessment (1) Bacteremia Code(s): R78.81 - Bacteremia Status: Acute (2) Septic shock Code(s): A41.9 - Sepsis, unspecified organism; R65.21 - Severe sepsis with septic shock Status: Resolved (3) TIA (transient ischemic attack) Code(s): G45.9 - Transient cerebral ischemic attack, unspecified Status: Acute (4) Hypokalemia Code(s): E87.6 - Hypokalemia Status: Acute - Assessment and Plan 62 YOWM with history of aortic valve replacement, prior CVA, COPD, chronic pain , and BPH admitted on 01/23 for left sided weakness, slurred speech, and confusion and found to be in septic shock with staph aureus bacteremia. 1. Staph aureus bacteremia/sepsis - WBC 11.9 on admission, now normalized - Afebrile overnight - All vials growing Staph aureus from 01/23 - Repeat blood cultures 01/26 NG x 2 days - ID following, TTE done given history of aortic valve but no vegetation seen. However, in the clinical setting with bacteremia he is being treated for suspected endocarditis - Continue cefazolin - CT chest shows new bilateral small pleural effusions with adjacent compressive atelectasis as well as new areas of ground glass opacity with adjacent interstitial thickening likely reflecting an infectious process. ? septic emboli 2. TIA - Pt presented with transient left-sided weakness, slurred speech, and confusion - Symptoms have resolved - MRI brain with suspected prior hemorrhage in an area of encephalomalacia at the medial right temporal region but otherwise no acute intracranial abnormality - Neuro following, no further neurologic work-up 3. COPD - Supplemental O2 - Bronchodilators PRN 4. Aortic valve replacement - Continue Coumadin - INR subtherapeutic at 1.4 - Pharmacy consult to dose DVT prophylaxis: On Coumadin
[2018-01-29] MEDS: Dextrose 5%/Lactated Ringer's 1,000 ML IV.CONT SCH ×3 (00:05→15:39)
[2018-01-29] MEDS: Insulin NovoLOG Aspart Correctional Sugar Inj SQ SCH ×5 (00:56→21:15)
[2018-01-29] MEDS: ceFAZolin 2 GM Premix Inj 2 GM/50 ML PIGGYBACK IV.SIG SCH ×3 (00:58→15:42)
[2018-01-29 05:26] LABS: Hematocrit 30.8 % (39.0-51.0); Hemoglobin 10.4 gm/dL (13.0-17.0); Mean Corpuscular HGB Conc 33.8 % (32.0-36.0); Mean Corpuscular Hemoglobin 31.5 pg (27.0-34.0); Mean Corpuscular Volume 93.4 fL (80.0-100.0); Mean Platelet Volume 9.4 fL (7.0-11.0); Platelet Count 160 th/mm3 (150-450); White Blood Count 6.1 th/mm3 (4.0-11.0)
[2018-01-29 05:38] LABS: INR 1.5 Ratio; Prothrombin Time 15.4 sec (9.8-11.6)
[2018-01-29 05:52] LABS: Alanine Aminotransferase 19 U/L (12-78); Albumin 2.5 g/dL (3.4-5.0); Anion Gap 11 meq/L (5-15); Aspartate Aminotransferase 29 U/L (15-37); Blood Urea Nitrogen 6 mg/dL (7-18); Calcium 8.5 mg/dL (8.5-10.1); Carbon Dioxide 26.3 meq/L (21.0-32.0); Chloride 98 meq/L (98-107); Glomerular Filtration Rate Greater Than 89 mL/min (>89); Glucose,Random 115 mg/dL (74-106); Potassium 3.3 meq/L (3.5-5.1); Sodium 135 meq/L (136-145)
[2018-01-29 05:54] LABS: Alkaline Phosphatase 62 U/L (45-117); Total Protein 6.3 g/dL (6.4-8.2)
[2018-01-29] MEDS: Famotidine 20 MG Tablet PO SCH ×2 (08:09→21:15)
[2018-01-29] MEDS: Pregabalin 75 MG Capsule PO SCH ×2 (08:09→21:14)
[2018-01-29] MEDS: Senna/Docusate Sodium 8.6/50 MG Tablet PO SCH ×2 (08:11→21:15)
--- NOTE | 2018-01-29 12:09 | P.PNFP ---
Subjective Interval history: Pt seen and examined for f/u of Staph bacteremia and presumed endocarditis. In good spirits. Reports he is feeling well. Hopes to be able to go home with oxygen as he states it makes his breathing better. Denies CP, SOB, abdominal pain, N/V. Endorses a dry cough. Results - Labs Result diagrams: 01/29/18 04:49 01/29/18 04:49 Abnormal lab results 01/28/18 01/29/18 01/29/18 Range/Units 23:10 04:49 04:49 RBC (4.50-5.90) mil/mm3 Hgb (13.0-17.0) gm/dL Hct (39.0-51.0) % PT 15.4 H (9.8-11.6) sec Sodium 135 L (136-145) meq/L Potassium 3.3 L (3.5-5.1) meq/L BUN 6 L (7-18) mg/dL POC Glucose 129 H (68-110) mg/dl Random Glucose 115 H (74-106) mg/dL Total Protein 6.3 L (6.4-8.2) g/dL Albumin 2.5 L (3.4-5.0) g/dL 01/29/18 Range/Units 04:49 RBC 3.30 L (4.50-5.90) mil/mm3 Hgb 10.4 L (13.0-17.0) gm/dL Hct 30.8 L (39.0-51.0) % PT (9.8-11.6) sec Sodium (136-145) meq/L Potassium (3.5-5.1) meq/L BUN (7-18) mg/dL POC Glucose (68-110) mg/dl Random Glucose (74-106) mg/dL Total Protein (6.4-8.2) g/dL Albumin (3.4-5.0) g/dL Short CBC 01/29/18 Range/Units 04:49 WBC 6.1 (4.0-11.0) th/mm3 Hgb 10.4 L (13.0-17.0) gm/dL Hct 30.8 L (39.0-51.0) % Plt Count 160 D (150-450) th/mm3 BMP 01/29/18 04:49 Sodium 135 L Potassium 3.3 L Chloride 98 Carbon Dioxide 26.3 BUN 6 L Creatinine 0.67 Calcium 8.5 Liver Function 01/29/18 Range/Units 04:49 Total Bilirubin 0.7 (0.2-1.0) mg/dL AST 29 (15-37) U/L ALT 19 (12-78) U/L Alkaline Phosphatase 62 (45-117) U/L Albumin 2.5 L (3.4-5.0) g/dL - Imaging Impressions Abdomen/Pelvis CT 01/28/18 00:00 CONCLUSION: No evidence of acute abdominal or pelvic process. No masses are identified. Bilateral effusions and bibasilar atelectasis Anasarca Chest CT 01/28/18 00:00 CONCLUSION: 1. New bilateral small pleural effusions with adjacent compressive atelectasis. New areas of groundglass opacity with adjacent interstitial thickening. Given the interval development from the prior exam this likely reflects an infectious process. Physical Exam Vital signs: Vital Signs 01/28/18 13:00 01/28/18 14:00 01/28/18 15:00 Temperature Pulse Rate 82 95 H 86 Respiratory Rate Blood Pressure Pulse Oximetry 01/28/18 15:19 01/28/18 16:00 01/28/18 17:00 Temperature 98.9 F Pulse Rate 91 H 98 H Respiratory Rate 20 19 Blood Pressure 124/73 Pulse Oximetry 94 L 01/28/18 18:00 01/28/18 19:00 01/28/18 20:00 Temperature 98.7 F Pulse Rate 100 H 90 72 Respiratory Rate 16 Blood Pressure 114/73 Pulse Oximetry 90 L 01/28/18 21:00 01/28/18 21:48 01/28/18 22:00 Temperature Pulse Rate 78 82 Respiratory Rate 16 Blood Pressure Pulse Oximetry 01/28/18 23:00 01/29/18 00:00 01/29/18 00:57 Temperature 98.2 F Pulse Rate 90 100 H Respiratory Rate 16 16 Blood Pressure 134/83 Pulse Oximetry 95 01/29/18 01:00 01/29/18 02:00 01/29/18 03:00 Temperature Pulse Rate 98 H 96 H 92 H Respiratory Rate Blood Pressure Pulse Oximetry 01/29/18 04:00 01/29/18 05:00 01/29/18 06:00 Temperature 99.4 F Pulse Rate 92 H 88 84 Respiratory Rate 16 Blood Pressure 107/65 Pulse Oximetry 90 L 01/29/18 07:00 01/29/18 08:00 01/29/18 08:10 Temperature 97.7 F Pulse Rate 78 87 Respiratory Rate 16 20 Blood Pressure 112/69 Pulse Oximetry 93 L 01/29/18 08:59 01/29/18 09:00 01/29/18 10:00 Temperature Pulse Rate 84 89 Respiratory Rate 20 Blood Pressure Pulse Oximetry 01/29/18 11:00 01/29/18 11:40 Temperature Pulse Rate 78 Respiratory Rate 16 Blood Pressure Pulse Oximetry Intake & Output 01/28/18 01/29/18 01/29/18 18:59 06:59 18:59 Intake Total 2170 / 2170 3010 / 3010 50 / 50 Output Total 2049 825 / 825 Balance 120 / 120 2185 / 2185 50 / 50 Weight 66 kg Intake: IV 1150 / 1150 2049 50 / 50 D5W/LR Inj 1,000 ML @ 125 mls/ 1000 / 1000 2000 / 2000 hr IV.CONT .Q8H [facility] Rx#: [id number] Ancef 2 GM Premix Inj 2 gm In 150 / 150 50 / 50 50 / 50 50 ml @ 100 mls/hr IV.SIG Q8H [facility] Rx#:[id number] Oral 1020 / 1020 960 / 960 Output: Urine 1750 / 1750 825 / 825 Stool 300 / 300 Other: # Voids 2 Date of Last Bowel Movement 01/28/18 01/28/18 01/28/18 # Bowel Movements 2 Narrative: GENERAL: WN, WD male resting in bed in [facility]. SKIN: Warm and dry. HEENT: AT/NC. Pupils equal and round. MMM. NECK: Supple no tender LAD or JVD. HEART: RRR no m/r/g. LUNGS: Diminished breath sounds but otherwise CTAB and improved aeration from yesterday's exam. ABDOMEN: +BS, soft, NT, ND. EXTREMITIES: No LE edema. NEURO: Awake and alert. Nonfocal. PSYCH: Appropriate mood and affect. Hyperverbal. - Urinary Catheter Management Indwelling Urethral Catheter Cath placed during this visit: yes Reason for continuing: Hourly intake/output Insertion date: 01/23/18 Insertion time: 06:30 Assessment and Plan - Assessment (1) Bacteremia Code(s): R78.81 - Bacteremia Status: Acute (2) Septic shock Code(s): A41.9 - Sepsis, unspecified organism; R65.21 - Severe sepsis with septic shock Status: Resolved (3) TIA (transient ischemic attack) Code(s): G45.9 - Transient cerebral ischemic attack, unspecified Status: Acute (4) Hypokalemia Code(s): E87.6 - Hypokalemia Status: Acute - Assessment and Plan 62 YOWM with history of aortic valve replacement, prior CVA, COPD, chronic pain , and BPH admitted on 01/23 for left sided weakness, slurred speech, and confusion and found to be in septic shock with staph aureus bacteremia. 1. Staph aureus bacteremia/sepsis - WBC 11.9 on admission, now normalized - Afebrile overnight - All vials growing Staph aureus from 01/23 - Repeat blood cultures 01/26 NG x 3 days - ID following, TTE done given history of aortic valve but no vegetation seen. However, in the clinical setting with bacteremia he is being treated for suspected endocarditis - Continue cefazolin - CT chest shows new bilateral small pleural effusions with adjacent compressive atelectasis as well as new areas of ground glass opacity with adjacent interstitial thickening likely reflecting an infectious process. ? septic emboli 2. TIA - Pt presented with transient left-sided weakness, slurred speech, and confusion - Symptoms have resolved - MRI brain with suspected prior hemorrhage in an area of encephalomalacia at the medial right temporal region but otherwise no acute intracranial abnormality - Neuro following, no further neurologic work-up 3. COPD - Supplemental O2 - Bronchodilators PRN - O2 walk test prior to discharge 4. Aortic valve replacement - Continue Coumadin - INR subtherapeutic at 1.5 - Pharmacy consult to dose - Increased Coumadin to 5 mg 5. Hypokalemia - Potassium mildly low at 3.3 - Repleted with PO DVT prophylaxis: On Coumadin Discharge Planning: Anticipate D/C tomorrow if outpatient IV antibiotics can be arranged
[2018-01-30] MEDS: Dextrose 5%/Lactated Ringer's 1,000 ML IV.CONT SCH ×4 (00:46→22:46)
[2018-01-30 06:37] LABS: INR 1.5 Ratio; Prothrombin Time 14.9 sec (9.8-11.6)
[2018-01-30] MEDS: Famotidine 20 MG Tablet PO SCH ×2 (09:14→20:16)
[2018-01-30] MEDS: Senna/Docusate Sodium 8.6/50 MG Tablet PO SCH ×2 (09:14→20:15)
[2018-01-30] MEDS: Pregabalin 75 MG Capsule PO SCH ×2 (09:15→20:16)
[2018-01-30] MEDS: ceFAZolin 2 GM Premix Inj 2 GM/50 ML PIGGYBACK IV.SIG SCH ×3 (09:16→16:25)
--- NOTE | 2018-01-30 10:16 | P.PNFP ---
Subjective Interval history: Pt seen and examined for f/u of staph bacteremia and presumed endocarditis given artificial aortic valve. Denies any acute concerns other than chronic back pain. Denies CP, SOB, abdominal pain, N/V. Tolerating PO. Hoping to be discharged today. Results - Labs Result diagrams: 01/29/18 04:49 01/29/18 04:49 Abnormal lab results 01/29/18 01/30/18 Range/Units 21:14 05:05 PT 14.9 H (9.8-11.6) sec POC Glucose 131 H (68-110) mg/dl Physical Exam Vital signs: Vital Signs 01/29/18 11:00 01/29/18 11:40 01/29/18 12:00 Temperature 98.4 F Pulse Rate 78 89 Respiratory Rate 16 14 Blood Pressure 92/51 L Pulse Oximetry 91 L 01/29/18 13:00 01/29/18 14:00 01/29/18 15:00 Temperature Pulse Rate 90 98 H 97 H Respiratory Rate Blood Pressure Pulse Oximetry 01/29/18 15:41 01/29/18 16:00 01/29/18 17:00 Temperature 99.0 F Pulse Rate 97 H 93 H Respiratory Rate 24 18 Blood Pressure 117/72 Pulse Oximetry 93 L 01/29/18 18:00 01/29/18 19:00 01/29/18 20:00 Temperature 97.6 F Pulse Rate 101 H 90 86 Respiratory Rate 20 Blood Pressure 85/69 L Pulse Oximetry 92 L 01/29/18 21:00 01/29/18 21:14 01/29/18 22:00 Temperature Pulse Rate 90 84 Respiratory Rate 16 Blood Pressure Pulse Oximetry 01/29/18 23:00 01/30/18 00:00 01/30/18 00:47 Temperature 98.5 F Pulse Rate 79 80 Respiratory Rate 20 18 Blood Pressure 95/50 L Pulse Oximetry 92 L 01/30/18 01:00 01/30/18 02:00 01/30/18 03:00 Temperature Pulse Rate 76 74 79 Respiratory Rate 22 Blood Pressure Pulse Oximetry 01/30/18 04:00 01/30/18 04:18 01/30/18 05:00 Temperature 98.9 F Pulse Rate 76 88 Respiratory Rate 22 20 Blood Pressure 107/74 Pulse Oximetry 90 L 01/30/18 06:00 01/30/18 07:00 01/30/18 08:00 Temperature 98.4 F Pulse Rate 90 82 78 Respiratory Rate 18 Blood Pressure 97/67 L Pulse Oximetry 92 L 01/30/18 09:00 01/30/18 09:14 01/30/18 09:27 Temperature Pulse Rate 88 88 Respiratory Rate 18 Blood Pressure Pulse Oximetry Intake & Output 01/29/18 01/30/18 01/30/18 18:59 06:59 18:59 Intake Total 2120 / 2120 2009 Output Total 1350 / 1350 1225 / 1225 Balance 770 / 770 785 / 785 Weight 66.2 kg Intake: IV 1100 / 1100 1050 / 1050 D5W/LR Inj 1,000 ML @ 125 mls/ 1000 / 1000 1000 / 1000 hr IV.CONT .Q8H [facility] Rx#: [id number] Ancef 2 GM Premix Inj 2 gm In 100 / 100 50 / 50 50 ml @ 100 mls/hr IV.SIG Q8H [facility]RIEN Rx#:[id number] Oral 1020 / 1020 960 / 960 Output: Urine 1350 / 1350 1225 / 1225 Other: # Urine Diapers 2 Date of Last Bowel Movement 01/29/18 01/29/18 # Bowel Movements 1 Narrative: GENERAL: WN, WD male resting in bed in [facility]. SKIN: Warm and dry. HEENT: AT/NC. Pupils equal and round. MMM. NECK: Supple no tender LAD or JVD. HEART: RRR no m/r/g. LUNGS: Diminished breath sounds but otherwise CTAB. ABDOMEN: +BS, soft, NT, ND. EXTREMITIES: No LE edema. NEURO: Awake and alert. Nonfocal. PSYCH: Appropriate mood and affect. Hyperverbal. - Urinary Catheter Management Indwelling Urethral Catheter Cath placed during this visit: yes Reason for continuing: Hourly intake/output Insertion date: 01/23/18 Insertion time: 06:30 Assessment and Plan - Assessment (1) Bacteremia Code(s): R78.81 - Bacteremia Status: Acute (2) Septic shock Code(s): A41.9 - Sepsis, unspecified organism; R65.21 - Severe sepsis with septic shock Status: Resolved (3) TIA (transient ischemic attack) Code(s): G45.9 - Transient cerebral ischemic attack, unspecified Status: Resolved - Assessment and Plan 62 YOWM with history of aortic valve replacement, prior CVA, COPD, chronic pain , and BPH admitted on 01/23 for left sided weakness, slurred speech, and confusion and found to be in septic shock with staph aureus bacteremia. 1. Staph aureus bacteremia/sepsis - WBC 11.9 on admission, now normalized - Afebrile overnight - All vials growing Staph aureus from 01/23 - Repeat blood cultures 01/26 NG - ID following, TTE done given history of aortic valve but no vegetation seen. However, in the clinical setting with bacteremia he is being treated for suspected endocarditis - Continue cefazolin - CT chest shows new bilateral small pleural effusions with adjacent compressive atelectasis as well as new areas of ground glass opacity with adjacent interstitial thickening likely reflecting an infectious process. ? septic emboli 2. TIA - Pt presented with transient left-sided weakness, slurred speech, and confusion - Symptoms have resolved - MRI brain with suspected prior hemorrhage in an area of encephalomalacia at the medial right temporal region but otherwise no acute intracranial abnormality - Neuro following, no further neurologic work-up 3. COPD - Supplemental O2 - Bronchodilators PRN - O2 walk test prior to discharge 4. Aortic valve replacement - Continue Coumadin - INR subtherapeutic at 1.5 - Pharmacy consult to dose DVT prophylaxis: On Coumadin Discharge Planning: D/C once cleared by ID and IV abx arranged, hopefully today
[2018-01-30] MEDS: Insulin NovoLOG Aspart Correctional Sugar Inj SQ SCH ×4 (12:48→22:48)
--- NOTE | 2018-01-30 15:42 | P.PNID ---
Subjective Remarks: ID [id number] for Background info: Patient is a 62-year-old male who presented to [facility] stating that about 5 and a half hours ago he noticed that his left arm and left foot were weak. He also had slurred speech. Patient stated he does not feel well. Patient has previous history of a hemorrhagic stroke on 2014. This left him with some mild residual sensory deficits in his left hand. Patient also has mechanical heart valve and is on Coumadin. His stated his INR has been elevated in the 4 range for the past week and his Coumadin has been held. 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 After patient arrived in the emergency department he began complaining of severe lower abdominal pain. His mental status appears to be diminishing as well. CT head and CTA neck were normal.Dr. Person neurology was contacted by ER physician and as patient was not felt to be a candidate for thrombolysis due to the fact that he was on Coumadin with an elevated INR stroke alert was not called. Patient was accepted for admission by hospitalist service to [place]. Subsequently patient developed a fever with hypotension. He received 3 L normal saline bolus and was started on Levophed for pressor support and empiric antibiotic coverage at the [facility]. CT of the abdomen and pelvis revealed the following:Abdomen/Pelvis CT 01/22/18 20:36 CONCLUSION: 1. Overall no significant change compared with October. 2. There is periportal edema in the liver. Stable cystic lesion in right upper quadrant as above. Mild ileus. Mild constipation. Numerous compression deformities in the lower thoracic and lumbar spine, stable with extensive osteopenia. Patient was transferred to the ICU at [facility] for severe sepsis. Patient was then transferred to [facility] for CAMERON as patient was found to have MSSA bacteremia and there was concern for endocarditis given patient has a mechanical prosthetic aortic valve. Patient is awake and alert. No complaints. No fevers. No shortness of breath. Currently wearing oxygen via nasal cannula. No rash No diarrhea CAMERON negative. Antibiotics: Cefazolin Lines: Peripheral IV Line Past Medical History: AVR Chronic back pain CVA Allergies/Adverse Reactions: Allergies No Known Allergies Allergy (Unverified 01/22/18 20:19) Objective Vital Signs 01/29/18 15:41 01/29/18 16:00 01/29/18 17:00 Temperature 99.0 F Pulse Rate 97 H 93 H Respiratory Rate 24 18 Blood Pressure 117/72 Pulse Oximetry 93 L 01/29/18 18:00 01/29/18 19:00 01/29/18 20:00 Temperature 97.6 F Pulse Rate 101 H 90 86 Respiratory Rate 20 Blood Pressure 85/69 L Pulse Oximetry 92 L 01/29/18 21:00 01/29/18 21:14 01/29/18 22:00 Temperature Pulse Rate 90 84 Respiratory Rate 16 Blood Pressure Pulse Oximetry 01/29/18 23:00 01/30/18 00:00 01/30/18 00:47 Temperature 98.5 F Pulse Rate 79 80 Respiratory Rate 20 18 Blood Pressure 95/50 L Pulse Oximetry 92 L 01/30/18 01:00 01/30/18 02:00 01/30/18 03:00 Temperature Pulse Rate 76 74 79 Respiratory Rate 22 Blood Pressure Pulse Oximetry 01/30/18 04:00 01/30/18 04:18 01/30/18 05:00 Temperature 98.9 F Pulse Rate 76 88 Respiratory Rate 22 20 Blood Pressure 107/74 Pulse Oximetry 90 L 01/30/18 06:00 01/30/18 07:00 01/30/18 08:00 Temperature 98.4 F Pulse Rate 90 82 78 Respiratory Rate 18 Blood Pressure 97/67 L Pulse Oximetry 92 L 01/30/18 09:00 01/30/18 09:14 01/30/18 09:27 Temperature Pulse Rate 88 88 Respiratory Rate 18 Blood Pressure Pulse Oximetry 01/30/18 10:00 01/30/18 11:00 01/30/18 12:00 Temperature 98.6 F Pulse Rate 96 H 87 89 Respiratory Rate 20 Blood Pressure 102/67 Pulse Oximetry 01/30/18 12:46 01/30/18 13:00 01/30/18 14:00 Temperature Pulse Rate 85 86 Respiratory Rate 18 Blood Pressure Pulse Oximetry 01/30/18 14:47 Temperature Pulse Rate Respiratory Rate 16 Blood Pressure Pulse Oximetry Intake & Output 01/29/18 01/30/18 01/30/18 18:59 06:59 18:59 Intake Total 2120 / 2120 2009 50 / 50 Output Total 1350 / 1350 1225 / 1225 Balance 770 / 770 785 / 785 50 / 50 Weight 66.2 kg Intake: IV 1100 / 1100 1050 / 1050 50 / 50 D5W/LR Inj 1,000 ML @ 125 mls/ 1000 / 1000 1000 / 1000 hr IV.CONT .Q8H ADRIEN Rx#: [id number] Ancef 2 GM Premix Inj 2 gm In 100 / 100 50 / 50 50 / 50 50 ml @ 100 mls/hr IV.SIG Q8H ADRIEN Rx#:[id number] Oral 1020 / 1020 960 / 960 Output: Urine 1350 / 1350 1225 / 1225 Other: # Urine Diapers 2 Date of Last Bowel Movement 01/29/18 01/29/18 # Bowel Movements 1 01/26/18 20:20 Blood - Peripheral Aerobic Blood Culture - Preliminary No growth in 4 days 01/26/18 20:20 Blood - Peripheral Anaerobic Blood Culture - Preliminary No growth in 4 days 01/26/18 20:25 Blood - Peripheral Aerobic Blood Culture - Preliminary No growth in 4 days 01/26/18 20:25 Blood - Peripheral Anaerobic Blood Culture - Preliminary No growth in 4 days Lab - Hematology Results 01/29/18 04:49 WBC 6.1 RBC 3.30 L Hgb 10.4 L Hct 30.8 L MCV 93.4 MCH 31.5 MCHC 33.8 RDW 15.0 Plt Count 160 D MPV 9.4 Lab - Chemistry Results 01/28/18 01/28/18 01/29/18 16:47 23:10 04:49 Sodium 135 L Potassium 3.3 L Chloride 98 Carbon Dioxide 26.3 Anion Gap 11 BUN 6 L Creatinine 0.67 Estimated GFR Greater than 89 POC Glucose 108 129 H Random Glucose 115 H Calcium 8.5 Total Bilirubin 0.7 AST 29 ALT 19 Alkaline Phosphatase 62 Total Protein 6.3 L Albumin 2.5 L 01/29/18 01/30/18 01/30/18 21:14 08:32 11:58 Sodium Potassium Chloride Carbon Dioxide Anion Gap BUN Creatinine Estimated GFR POC Glucose 131 H 101 120 H Random Glucose Calcium Total Bilirubin AST ALT Alkaline Phosphatase Total Protein Albumin Imaging: ITS Impressions Head MRI 01/23/18 00:00 CONCLUSION: 1. No acute intracranial abnormality is seen. 2. Suspected prior hemorrhage and an area of encephalomalacia at the medial right temporal region extending to the white matter adjacent to the posterior horn of the right lateral ventricle. 3. Focal linear low signal seen in the posterior external capsule region on the left likely from prior hemorrhage. Chest X-Ray 01/24/18 05:00 CONCLUSION: 1. No significant interval change. 2. Minimal bibasilar, right greater than left, airspace disease. Abdomen/Pelvis CT 01/28/18 00:00 CONCLUSION: No evidence of acute abdominal or pelvic process. No masses are identified. Bilateral effusions and bibasilar atelectasis Anasarca Chest CT 01/28/18 00:00 CONCLUSION: 1. New bilateral small pleural effusions with adjacent compressive atelectasis. New areas of groundglass opacity with adjacent interstitial thickening. Given the interval development from the prior exam this likely reflects an infectious process. Physical Exam: GENERAL: Alert and oriented, no acute distress. HEENT: Pupils reactive to light. Extraocular movements intact. No icterus. No conjunctival erythema. Moist mucosa. NECK: Supple without adenopathy. No swelling. LUNGS: Clear to auscultation. HEART: Irregular S1 and S2. No murmurs heard. ABDOMEN: Positive bowel sounds, soft, nontender. EXTREMITIES: No clubbing cyanosis or edema. SKIN: No diffuse rash. NEUROLOGIC: Awake and alert and oriented. Nonfocal. PSYCH: Calm and cooperative. Assessment and Plan (1) Staph aureus infection Status: Acute Code(s): A49.01 - Methicillin susceptible Staphylococcus aureus infection, unspecified site (2) H/O aortic valve replacement Status: Acute Code(s): Z95.2 - Presence of prosthetic heart valve (3) Bacteremia Status: Acute Code(s): R78.81 - Bacteremia - Plan Severe Sepsis MSSA bacteremia in setting of AVR mechanical. CAMERON negative but would still treat as MSSA endocarditis. CT Chest has ground glass opacities and interstitial infiltrates. ? septic emboli. Repeat blood cultures negative. Recs: Continue Cefazolin 2grams Q8H IV x 6 weeks in light of prosthetic valve. Gentamycin 70 mg IV Q8H x 2 weeks. PICC placement. Follow clinically. Follow up with Dr. Londono on discharge. Case management to arrange antibiotics.
--- NOTE | 2018-01-30 15:52 | P.DCO ---
Post Hospital Infusion Therapy Location of Infusion Therapy: Home Health Care IV Infusion Order Patient Weight: 66.2 kg - Diagnosis (1) Aortic valve defect Code(s): I35.9 - Nonrheumatic aortic valve disorder, unspecified (2) Bacteremia Code(s): R78.81 - Bacteremia (3) H/O aortic valve replacement Code(s): Z95.2 - Presence of prosthetic heart valve (4) Staph aureus infection Code(s): A49.01 - Methicillin susceptible Staphylococcus aureus infection, unspecified site - Administer Medication Cefazolin Dose: 2 grams IV Directions: q 8 hours Stop Treatment: 03/06/18 Gentamicin Additional Dosing Instructions: 210mg IV Q24 hours Stop Treatment: 02/08/18 - Additional Information Venous Access: PICC Line Additional Instructions: [x] Peripheral flush and dressing changes per protocol [x] 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 [] May leave port accessed during therapy. [] May leave peripheral site accessed for duration of therapy. [x] If patient has SOB or respiratory distress, check oxygen saturation. If less than 90% or clinical signs of respiratory distress, administer oxygen at 2 L/min. via nasal cannula and notify physician. [x] Anaphylaxis/Reaction orders: * Stop infusion. * Keep IV line open with saline flush. * Notify physician. * Monitor vital signs every 15 minutes until symptoms resolve. * Check Oxygen saturation; Oxygen at 2 L/min. via nasal cannula if less than 90% or clinical signs of respiratory distress. * Administer diphenhydramine (Benadryl) 25 mg IV STAT, (unless patient has received as pre-med). May repeat once, if necessary. * Solu-Cortef 250 mg IVP over 30-60 seconds, use 100 mg vials for each dissolution. * Epinephrine (1mg/1 ml) 0.3 mg subcutaneously or IVP now with any signs of respiratory distress. * Check with physician for new additional pre-med orders if patient is re- challenged or re-treated. [x] May remove PICC line when treatment complete, after confirming with Physician. [x] If the patient is admitted to the hospital, the ED, or transferred via [facility] , complete transfer form including medication reconciliation order sheet. Weekly Labs: BMP, CBC w/diff Case Management Consult: Yes Additional Information: Follow up with DR. Augustine Londono 1 week after discharge. BMP every 2 days while on Gentamycin. Call with creatinine greater than 2.0 Hold Gentamycin if creatinine greater than 1.6. Phone number Dr. Vargas . Fax number [phone]. Allergies No Known Allergies Allergy (Unverified 01/22/18 20:19)
[2018-01-30] MEDS ORDERED: Gentamicin Consult Pharmacy 1 EACH OTHER SCH (16:00)
--- NOTE | 2018-01-30 16:29 | P.DCO ---
- Physical Therapy Order: Evaluate and treat, Improve ambulation, Strength and gait training - Home Health Nursing Order: Signs/symptoms of disease process, Nursing assessment with vital signs, IV medication administration - Certification I have seen patient Adam Tolentino on 01/30/18. My clinical findings support the need for the requested home health care services because: Deconditioned with increased weakness, High risk of falls, Injectable medication education/administration I certify that my clinical findings support that this patient is homebound because: Unsteady gait/balance
[2018-01-30] MEDS: Gentamicin Inj 70 MG in Sodium Chlor 0.9% Inj 100 ML IV.SIG SCH (17:02)
[2018-01-31] MEDS: Dextrose 5%/Lactated Ringer's 1,000 ML IV.CONT SCH (00:25)
[2018-01-31] MEDS: Gentamicin Inj 70 MG in Sodium Chlor 0.9% Inj 100 ML IV.SIG SCH ×3 (01:31→14:16)
[2018-01-31] MEDS: ceFAZolin 2 GM Premix Inj 2 GM/50 ML PIGGYBACK IV.SIG SCH ×3 (01:35→15:13)
[2018-01-31 06:30] LABS: INR 1.6 Ratio
--- NOTE | 2018-01-31 08:12 | P.DCO ---
- Physical Therapy Order: Evaluate and treat - Occupational Therapy Order: Evaluate and treat - Home Health Nursing Order: Medical education, Signs/symptoms of disease process, Oxygen administration education, Medication education-adverse effect, Nursing assessment with vital signs - Certification I have seen patient Adam Tolentino on 01/31/18. My clinical findings support the need for the requested home health care services because: Limited mobility due to disease progression, Patient has SOB, Deconditioned with increased weakness I certify that my clinical findings support that this patient is homebound because: Post-op weakness, Hx COPD - exertion dyspnea/weakness
--- NOTE | 2018-01-31 08:12 | P.DS ---
Date of admission: 01/23/18 01:32 Primary care physician: Regan Rogers Brief History from admission: [facility] Narrative: Patient is a 62-year-old male who presented to [facility] stating that about 5 and a half hours ago he noticed that his left arm and left foot were weak. He also had slurred speech. Patient statesd he does not feel well. Patient has previous history of a hemorrhagic stroke on 2014. This left him with some mild residual sensory deficits in his left hand. Patient also has mechanical heart valve and is on Coumadin. His stated his INR has been elevated in the 4 range for the past week and his Coumadin has been held. 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 After patient arrived in the emergency department he began complaining of severe lower abdominal pain. His mental status appears to be diminishing as well. Last Observed Normal: 15:00 Timing confirmed by: spouse Location: speech, dysarthria, left arm and left leg History of same: Yes Severity: moderate Quality: weak and tingling Relieving factors: none Exacerbating factors: none On Anticoagulants: Yes Associated symptoms: chest pain CT head and CTA neck were normal. Dr. Person neurology was contacted by ER physician and as patient was not felt to be a candidate for thrombolysis due to the fact that he was on Coumadin with an elevated INR stroke alert was not called. Patient was accepted for admission by hospitalist service to [facility]. Subsequently patient developed a fever with hypotension. He received 3 L normal saline bolus and was started on Levophed for pressor support and empiric antibiotic coverage at the [facility]. Patient had started complaining of abdominal pain in the ER and a UA suggested UTI. CT of the abdomen and pelvis revealed the following:Abdomen/Pelvis CT 01/22/18 20:36 CONCLUSION: 1. Overall no significant change compared with October. 2. There is periportal edema in the liver. Stable cystic lesion in right upper quadrant as above. Mild ileus. Mild constipation. Numerous compression deformities in the lower thoracic and lumbar spine, stable with extensive osteopenia. Patient was transferred to the ICU at [facility] under the hospitalist service initially however subsequently critical care consult was requested following his arrival to the ICU due to hypotension requiring pressors. Critical care was not contacted by [facility] after initiation of pressors for hypotension. Patient remained with an altered mental status. When I evaluated the patient he was laying in the ICU bed on Levophed 6 mics per minute with systolic blood pressure 110 with a map of 75. Levophed was decreased to 2 mics per minute with which she was maintaining a map of 71. Patient was drowsy though arousable. He was disoriented and not following commands. Not following commands. He was moving both upper and lower extremities with painful stimuli. He was on 2 L nasal cannula and maintaining his O2 sats. History was obtained by reviewing records and discussion with nursing staff. DS: Diagnosis - Discharge Diagnosis (1) Aortic valve defect Status: Acute (2) Bacteremia Status: Acute (3) Chronic back pain Status: Acute (4) H/O aortic valve replacement Status: Acute (5) Hypokalemia Status: Acute (6) Physical deconditioning Status: Acute (7) Staph aureus infection Status: Acute DS: Medications - Discharge Medications Prescriptions: cefazolin 2 g IV Q8H 35 Days each gentamicin in NaCl (iso-osm) 210 mg IV DAILY #7 ml DS: Summary Hospital Course: Clinical update at DC: Pt seen and examined for f/u of staph bacteremia and presumed endocarditis given artificial aortic valve. NO fever or chills. Eating well. NO n/v/d/c. Feels better awaiting arrangements to go home. 62 YOWM with history of aortic valve replacement, prior CVA, COPD, chronic pain , and BPH admitted on 01/23 for left sided weakness, slurred speech, and confusion and found to be in septic shock with staph aureus bacteremia. 1. Staph aureus bacteremia/sepsis - WBC 11.9 on admission, now normalized - Afebrile overnight - All vials growing Staph aureus from 01/23 - Repeat blood cultures 01/26 NG - ID following, TTE done given history of aortic valve but no vegetation seen. However, in the clinical setting with bacteremia he is being treated for suspected endocarditis - Continue cefazolin - CT chest shows new bilateral small pleural effusions with adjacent compressive atelectasis as well as new areas of ground glass opacity with adjacent interstitial thickening likely reflecting an infectious process. ? septic emboli 2. TIA - Pt presented with transient left-sided weakness, slurred speech, and confusion - Symptoms have resolved - MRI brain with suspected prior hemorrhage in an area of encephalomalacia at the medial right temporal region but otherwise no acute intracranial abnormality - Neuro following, no further neurologic work-up 3. COPD - Supplemental O2 - Bronchodilators PRN - O2 walk test prior to discharge 4. Aortic valve replacement - Continue Coumadin - INR subtherapeutic at 1.5 - Pharmacy consult to dose DVT prophylaxis: On Coumadin Discharge Planning: Cleared by ID, antibiotics per ID infusion IV abx arranged. DC home with home health to follow up as oP with pCP and constants - Time Spent with Patient Total time spent providing and/or coordinating discharge services: Greater than 30 minutes - Quality: VTE Deep Vein Thrombosis/Pulmonary Embolism Present on Admission: No Exam Vital signs: Vital Signs 01/30/18 09:00 01/30/18 09:14 01/30/18 09:27 Temperature Pulse Rate 88 88 Respiratory Rate 18 Blood Pressure Pulse Oximetry Pulse Oximetry [Resting on Room Air] Pulse Oximetry [Resting with Oxygen] 01/30/18 10:00 01/30/18 11:00 01/30/18 12:00 Temperature 98.6 F Pulse Rate 96 H 87 89 Respiratory Rate 20 Blood Pressure 102/67 Pulse Oximetry Pulse Oximetry [Resting on Room Air] Pulse Oximetry [Resting with Oxygen] 01/30/18 12:46 01/30/18 13:00 01/30/18 14:00 Temperature Pulse Rate 85 86 Respiratory Rate 18 Blood Pressure Pulse Oximetry Pulse Oximetry [Resting on Room Air] Pulse Oximetry [Resting with Oxygen] 01/30/18 14:47 01/30/18 15:00 01/30/18 16:00 Temperature 98.7 F Pulse Rate 85 88 Respiratory Rate 16 18 Blood Pressure Pulse Oximetry 91 L Pulse Oximetry [Resting on Room Air] Pulse Oximetry [Resting with Oxygen] 01/30/18 16:07 01/30/18 16:16 01/30/18 17:00 Temperature Pulse Rate 101 H Respiratory Rate 16 Blood Pressure Pulse Oximetry Pulse Oximetry [Resting on Room Air] 86 L Pulse Oximetry [Resting with Oxygen] 96 01/30/18 18:00 01/30/18 19:00 01/30/18 20:00 Temperature Pulse Rate 88 104 H 97 H Respiratory Rate 18 Blood Pressure 136/73 Pulse Oximetry 90 L Pulse Oximetry [Resting on Room Air] Pulse Oximetry [Resting with Oxygen] 01/30/18 20:13 07/16/18 21:00 01/30/18 22:00 Temperature Pulse Rate 98 H 96 H Respiratory Rate 16 Blood Pressure Pulse Oximetry Pulse Oximetry [Resting on Room Air] Pulse Oximetry [Resting with Oxygen] 01/30/18 22:39 01/30/18 23:00 01/31/18 00:00 Temperature 98.0 F Pulse Rate 104 H 91 H Respiratory Rate 16 16 Blood Pressure 127/69 Pulse Oximetry 93 L Pulse Oximetry [Resting on Room Air] Pulse Oximetry [Resting with Oxygen] 01/31/18 01:00 01/31/18 01:33 01/31/18 02:00 Temperature Pulse Rate 94 H 96 H Respiratory Rate 16 Blood Pressure Pulse Oximetry Pulse Oximetry [Resting on Room Air] Pulse Oximetry [Resting with Oxygen] 01/31/18 03:00 01/31/18 04:00 01/31/18 05:00 Temperature Pulse Rate 96 H 59 L 106 H Respiratory Rate 18 Blood Pressure 119/76 Pulse Oximetry 96 Pulse Oximetry [Resting on Room Air] Pulse Oximetry [Resting with Oxygen] 01/31/18 06:00 01/31/18 06:44 01/31/18 07:00 Temperature Pulse Rate 104 H 88 Respiratory Rate 18 Blood Pressure Pulse Oximetry Pulse Oximetry [Resting on Room Air] Pulse Oximetry [Resting with Oxygen] Intake & Output 01/30/18 01/31/18 01/31/18 18:59 06:59 18:59 Intake Total 2402 / 2402 692 / 692 Output Total 1600 / 1600 3875 / 3875 Balance 802 / 802 -3183 / -3183 Weight 66.2 kg 62.9 kg Intake: IV 1202 / 1202 452 / 452 D5W/LR Inj 1,000 ML @ 125 mls/ 1000 / 1000 300 / 300 hr IV.CONT .Q8H ADRIEN Rx#: [id number] Gentamicin Inj 70 MG In NS Inj 102 / 102 102 / 102 100 ML @ 203.5 mls/hr IV.SIG Q8H ADRIEN Rx#:[id number] Ancef 2 GM Premix Inj 2 gm In 100 / 100 50 / 50 50 ml @ 100 mls/hr IV.SIG Q8H ADRIEN Rx#:[id number] Oral 1200 / 1200 240 / 240 Output: Urine 1600 / 1600 3875 / 3875 Other: Date of Last Bowel Movement 01/29/18 01/29/18 Narrative: GENERAL: WN, WD male resting in bed in NAD. HEART: RRR no m/r/g. LUNGS: Diminished breath sounds but otherwise CTAB. ABDOMEN: +BS, soft, NT, ND. EXTREMITIES: No LE edema. NEURO: Awake and alert. Nonfocal. Results Procedures completed during hospitalization: none Labs on day of discharge: Labs from last 24 hours 01/31/18 01/30/18 01/30/18 04:45 20:09 16:37 PT 16.0 H INR 1.6 POC Glucose 119 H 110 01/30/18 01/30/18 11:58 08:32 PT INR POC Glucose 120 H 101 Preliminary micro results at discharge 01/26/18 20:20 Aerobic Blood Culture - Preliminary Blood - Peripheral No growth in 4 days Anaerobic Blood Culture - Preliminary No growth in 4 days 01/26/18 20:25 Aerobic Blood Culture - Preliminary Blood - Peripheral No growth in 4 days Anaerobic Blood Culture - Preliminary No growth in 4 days - Impressions ITS Impressions Head MRI 01/23/18 00:00 CONCLUSION: 1. No acute intracranial abnormality is seen. 2. Suspected prior hemorrhage and an area of encephalomalacia at the medial right temporal region extending to the white matter adjacent to the posterior horn of the right lateral ventricle. 3. Focal linear low signal seen in the posterior external capsule region on the left likely from prior hemorrhage. Chest X-Ray 01/24/18 05:00 CONCLUSION: 1. No significant interval change. 2. Minimal bibasilar, right greater than left, airspace disease. Abdomen/Pelvis CT 01/28/18 00:00 CONCLUSION: No evidence of acute abdominal or pelvic process. No masses are identified. Bilateral effusions and bibasilar atelectasis Anasarca Chest CT 01/28/18 00:00 CONCLUSION: 1. New bilateral small pleural effusions with adjacent compressive atelectasis. New areas of groundglass opacity with adjacent interstitial thickening. Given the interval development from the prior exam this likely reflects an infectious process. Discharge Plan - Discharge Disposition Patient Disposition: W/Home Health Service - Discharge Condition Condition: Stable - Discharge Order Discharge Orders: Discharge Order (Routine); Ordered 01/31/18 Ordered By: Mercedes Holt - Discharge Details Anticipated Discharge Date: 01/31/18 - Physicians Team Primary Care Provider: Regan Rogers Attending Provider: Mercedes Holt Other Providers: Janelle Londono MD ; Camacho Ambriz MD ; Ajay Person MD, PhD ; Geeta Brock MD - Rxs /Orders / Referrals /Forms Prescriptions: New cefazolin 1 gram Recon Soln 2 g IV Q8H 35 Days RF: 0 gentamicin in NaCl (iso-osm) 70 mg/50 mL Piggyback 210 mg IV DAILY Qty: 7 RF: 0 Continue ascorbic acid (vitamin C) [Vitamin C] 500 mg Tablet See Label Instructions .ROUTE .COMPLEX duloxetine [Cymbalta] 60 mg Capsule,Delayed Release(Dr/Ec) 90 mg PO DAILY ferrous sulfate [Iron (ferrous sulfate)] 325 mg (65 mg iron) Tablet See Label Instructions .ROUTE .COMPLEX hydrocodone-acetaminophen 10-325 mg Tablet 1 tab PO Q6H multivitamin Capsule 1 cap PO QAM pregabalin [Lyrica] 200 mg Capsule 200 mg PO BID tamsulosin 0.4 mg Capsule,Extended Release 24hr 0.4 mg PO DAILY warfarin 6 mg Tablet 6 mg PO DAILY Ambulatory Orders / Order Sets / DME: Oxygen Tank (2 liter) (Routine) Location: Determined by Patient Ordered By: Mercedes Holt Walker With Front Wheels (1 each) (Routine) Location: Determined by Patient Ordered By: Janice Morillo Prothrombin Time INR (Routine) Location: Determined by Patient Ordered By: Janice Morillo Referrals: Regan Rogers MD [Primary Care Provider] - See Instructions (Follow-up in 1 week) Janelle Londono MD [Physician] - See Instructions (Follow-up in 1 week) - Discharge Instructions Additional Instructions: Follow up with DR. Augustine Londono 1 week after discharge. BMP every 2 days while on Gentamycin. Call with creatinine greater than 2.0 Hold Gentamycin if creatinine greater than 1.6. Phone number Dr[address] Vargas . Fax number [phone].
[2018-01-31] MEDS: Senna/Docusate Sodium 8.6/50 MG Tablet PO SCH (08:43)
[2018-01-31] MEDS: Pregabalin 75 MG Capsule PO SCH (08:44)
[2018-01-31] MEDS: Famotidine 20 MG Tablet PO SCH (08:44)
[2018-01-31] MEDS: Insulin NovoLOG Aspart Correctional Sugar Inj SQ SCH ×2 (08:46→14:17)
[2018-01-31] MEDS ORDERED: Heparin Central Flush 100 UNIT/ML 5 ML Vial IV.FLUSH PRN (12:35)
[2018-01-31] MEDS ORDERED: Heparin Central Flush 100 UNIT/ML 5 ML Vial IV.FLUSH SCH (12:45)
[2018-01-31] MEDS ORDERED: Pharmacy Ordered Lab Info OTHER ONE ×2 (15:30→17:00)
== END 2018-01-31 15:59 | disposition home health service (06) ==
LOC: PHEDDLT 01:02 → PHEDA 01:32 → PHICU 03:46 → HCIS 01-25 21:27
PROVIDERS: ADMIT Hospitalist; ATTEND Hospitalist

== ENCOUNTER 2018-02-04 17:43 | Inpatient (IN) ==
--- NOTE | 2018-02-04 22:52 | P.HPCC ---
History of Present Illness Service: Critical care medicine Primary Care Physician: Regan Rogers Chief Complaint: Fever, septic shock History of Present Illness: 62-year-old male with past medical history of [place] mechanical aortic valve (09/21/12 Dr. Gonzalez), on chronic anticoagulation with warfarin, atrial fibrillation postop from AVR , COPD on 2.5 L home O2, stroke in 2014 resulting in left-sided sensory deficits and neuropathy, osteoporosis with chronic low back pain. He was recently admitted to [facility] from 01/23 through 01/31/18 for MSSA bacteremia. It is believed that the original source of infection was a wound on his right index finger when electric drill slipped and created a puncture wound. He was discharged with right upper extremity PICC line receiving cefazolin 2 g IV every 8 hours and gentamicin 210 mg IV daily. He states that home health administered antibiotics at 17:00 and shortly thereafter he began having chills and rigors and sought medical attention at [facility]. He had no rash. Upon arrival, he was hypotensive in the low 80s. He was given 2 L S bolus but remained hypotensive so was started on Levophed. He then developed heart rate in the 140s, reportedly atrial flutter so he was started on Amiodarone drip in [place] and converted to sinus rhythm. He was transfused 2 units PRBC due to Hgb 9.3. His stool was nonbloody nonmelena but was Hemoccult positive. He was given zosyn and vancomycin. Critical care medicine was then contacted and accepted patient for transfer to [facility]. He denies tenderness/redness/drainage at PICC site. Aside from mechanical aortic valve, he has no other hardware or indwelling devices. He denies headache, cough, dysuria. He has had a few loose stools at home, but stools have sometimes been formed. He denies chest pain, does report some SOB. EKG at [place] had marked inferolateral ischemic changes. Obtained EKG upon arrival to [facility] which is improved. - Diagnosis (1) Septic shock (2) Staph aureus infection (3) NSTEMI (non-ST elevated myocardial infarction) (4) Status post mechanical aortic valve replacement (5) Chronic anticoagulation (6) Chronic back pain (7) H/O aortic valve replacement (8) Physical deconditioning (9) BPH (benign prostatic hyperplasia) (10) COPD with hypoxia Inpatient Certification: I certify that the inpatient services were ordered in accordance with Medicare regulations governing the order. This includes certification that hospital inpatient services are reasonable and necessary and in the case of services not specified as inpatient-only under 42 CFR 419.22(n), that they are appropriately provided as inpatient services in accordance to with the 2-midnight benchmark under 43 CFR 412.3(e) PMF - History History Provided By: Patient - Medical History Medical History: Medical History (Last Updated 02/05/18 @ 08:13 by Lori Aldridge MD) HLD (hyperlipidemia) MSSA bacteremia Normal endoscopy COPD (chronic obstructive pulmonary disease) CVA (cerebral vascular accident) Neuropathy Osteoporosis - Surgical History Surgical History: Surgical History (Last Updated 02/05/18 @ 08:14 by Lori Aldridge MD) H/O mechanical aortic valve replacement History of inguinal hernia repair, bilateral - Family History Family History: Family History (Last Updated 02/05/18 @ 08:15 by Lori Aldridge MD) Mother CAD (coronary artery disease) Father Valvular heart disease - Tobacco History Second Hand Smoke Exposure: No (On disability. 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 ) Smoking Status: Former smoker Tobacco Type: Cigarettes - Alcohol History How Often Do You Have a Drink Containing Alcohol: Monthly or less - Substance Use History Substance History: No History of Abuse Medications and Allergies Allergies Allergy/AdvReac Type Severity Reaction Status Date / Time No Known Allergies Allergy Verified 02/04/18 18:10 Home Medications Medication Instructions Recorded Confirmed Type ascorbic acid (vitamin C) [Vitamin See Label Instructions .ROUTE 01/22/18 History C] .COMPLEX duloxetine [Cymbalta] 90 mg PO DAILY 01/22/18 01/24/18 History ferrous sulfate [Iron (ferrous See Label Instructions .ROUTE 01/22/18 01/24/18 History sulfate)] .COMPLEX hydrocodone-acetaminophen 1 tab PO Q6H 01/22/18 01/24/18 History multivitamin 1 cap PO QAM 01/22/18 01/24/18 History pregabalin [Lyrica] 200 mg PO BID 01/22/18 01/24/18 History tamsulosin 0.4 mg PO DAILY 07/08/18 07/10/18 History warfarin 6 mg PO DAILY 01/22/18 01/24/18 History Results - Labs CBC & Chem 7: 02/05/18 06:27 Exam Narrative: GENERAL: Ill-appearing thin male with temporal wasting who is sitting up in ISC bed. SKIN: Warm and dry. HEAD: Atraumatic. Normocephalic. EYES: Pupils equal and round, 2 mm and reactive. No scleral icterus. No injection or drainage. ENT: No nasal bleeding or discharge. Mucous membranes pink and moist. NECK: Trachea midline. No JVD. CARDIOVASCULAR: Regular rate and rhythm, currently sinus rhythm on the monitor with rate in the 80s. No murmurs rubs or gallops. RESPIRATORY: Mildly tachypneic with no accessory muscle use. Clear to auscultation bilaterally, prolonged expiratory phase. No wheezes rales or rhonchi. GASTROINTESTINAL: Abdomen soft, non-tender, nondistended. Bowel sounds present VASC: Right radial art line in place with distal perfusion intact. There is a PICC in place right upper extremity. Dressing is intact. There is no erythema , tenderness, drainage. MUSCULOSKELETAL: Extremities without clubbing, cyanosis, or edema. No obvious deformities. NEUROLOGICAL: Awake and alert oriented 3 but at times seems a little confused. No obvious cranial nerve deficits. Strength is 5 out of 5 in all extremities. He reports decreased sensation in the left arm and left leg (chronic). Septic Shock Reassessment Septic shock perfusion: reassessment completed Caprini VTE Risk Assessment Caprini VTE Risk Assessment: Moderate/High Risk (score >= 2) Caprini Risk Assessment Model: Point Value = 1 Point Value = 2 Point Value = 3 Point Value = 5 Age 41-60 Minor surgery BMI > 25 kg/m2 Swollen legs Varicose veins or History of unexplained or recurrent spontaneous Oral contraceptives or hormone replacement Sepsis (< 1 month) Serious lung disease, including pneumonia (< 1 month) Abnormal pulmonary function Acute myocardial infarction Congestive heart failure (< 1 month) History of inflammatory bowel disease Medical patient at bed rest Age 61-74 Arthroscopic surgery Major open surgery (> 45 min) Laparoscopic surgery (> 45 min) Malignancy Confined to bed (> 72 hours) Immobilizing plaster cast Central venous access Age >= 75 History of VTE Family history of VTE Factor V Leiden Prothrombin [id number] Lupus anticoagulant Anticardiolipin antibodies Elevated serum homocysteine Heparin-induced thrombocytopenia Other congenital or acquired thrombophilia Stroke (< 1 month) Elective arthroplasty Hip, pelvis, or leg fracture Acute spinal cord injury (< 1 month) Prophylaxis Regimen: Total Risk Factor Score Risk Level Prophylaxis Regimen 0-1 Low Early ambulation 2 Moderate Order ONE of the following: *Sequential Compression Device (SCD) *Heparin 5000 units SQ BID 3-4 Higher Order ONE of the following medications: *Heparin 5000 units SQ TID *Enoxaparin/Lovenox 40 mg SQ daily (WT < 150 kg, CrCl > 30 mL/min) *Enoxaparin/Lovenox 30 mg SQ daily (WT < 150 kg, CrCl > 10-29 mL/min) *Enoxaparin/Lovenox 30 mg SQ BID (WT < 150 kg, CrCl > 30 mL/min) AND/OR *Sequential Compression Device (SCD) 5 or more Highest Order ONE of the following medications: *Heparin 5000 units SQ TID (Preferred with Epidurals) *Enoxaparin/Lovenox 40 mg SQ daily (WT < 150 kg, CrCl > 30 mL/min) *Enoxaparin/Lovenox 30 mg SQ daily (WT < 150 kg, CrCl > 10-29 mL/min) *Enoxaparin/Lovenox 30 mg SQ BID (WT < 150 kg, CrCl > 30 mL/min) AND *Sequential Compression Device (SCD) Assessment and Plan - Problem List (1) Septic shock Code(s): A41.9 - Sepsis, unspecified organism; R65.21 - Severe sepsis with septic shock Status: Acute (2) Staph aureus infection Code(s): A49.01 - Methicillin susceptible Staphylococcus aureus infection, unspecified site Status: Acute (3) NSTEMI (non-ST elevated myocardial infarction) Code(s): I21.4 - Non-ST elevation (NSTEMI) myocardial infarction Status: Acute (4) Status post mechanical aortic valve replacement Code(s): Z95.2 - Presence of prosthetic heart valve Status: Chronic (5) Chronic anticoagulation Code(s): Z79.01 - longterm (current) use of anticoagulants Status: Chronic (6) Chronic back pain Code(s): M54.9 - Dorsalgia, unspecified; G89.29 - Other chronic pain Status: Chronic (7) H/O aortic valve replacement Code(s): Z95.2 - Presence of prosthetic heart valve Status: Acute (8) Physical deconditioning Code(s): R53.81 - Other malaise Status: Chronic (9) BPH (benign prostatic hyperplasia) Code(s): N40.0 - Benign prostatic hyperplasia without lower urinary tract symptoms Status: Chronic (10) COPD with hypoxia Code(s): J44.9 - Chronic obstructive pulmonary disease, unspecified; R09.02 - Hypoxemia Status: Chronic - Assessment and Plan Plan: NEURO: History of stroke in 2015 Neuropathy left upper and lower extremity Chronic low back pain Osteopenia Lortab 10/325 every 4 hours as needed for pain Morphine as needed for breakthrough pain Continue Lyrica 150 mg p.o. twice daily (patient states this is the correct dose ) Cymbalta 90 mg p.o. daily RESP: COPD on 2.5 L home O2 Prior tobacco abuse Albuterol every 2 hours as needed for wheezing Continue nasal cannula and titrate as needed to maintain sats greater than 92% CV: NSTEMI Septic shock [place] mechanical aortic valve (09/21/12 Lisa) s/p Tricuspid annuloplasty EKG from emergency department demonstrated atrial flutter with rate in the 130s with ST depression in II/III/ F, V4 through V6 Troponin up trending to 10.9 Given aspirin. Started heparin drip. INR is 1.5 Not a candidate for beta-rasheed or ARETHA inhibitor due to hypotension Will continue amiodarone for now for rhythm maintenance as AF-RVR contributing to ischemia, further management per cardiology. Obtain 2D echo Cardiology consult [place] 01/23/18no evidence of vegetation or thrombus. Normal functioning aortic mechanical valve with trivial aortic insufficiency. Tricuspid annuloplasty. Mild to moderate LV generalized hypokinesis Lactic acid normal. Continue Levophed to maintain map greater than 65. LR 100 ml/hr. Had recent LDLs and cholesterol checked in January which were very low His chief radiologic technologist is Romana Bartlett in [place]. Patient denies any recent ischemic workup GI: NPO Protonix for stress ulcer prophylactic Had normal EGD on 10/21/17 FEN/RENAL: BPH Normal renal function. Check magnesium and phosphorus. Renal ultrasound to evaluate for evidence of obstruction given ?UTI Hold tamsulosin for now Continue multivitamin. ID: MSSA bacteremia ?UTI PICC in place Has been on Ancef but was given Zosyn in the emergency department. We will continue Zosyn for now to provide some gram-negative coverage in view of possible UTI. Continue vancomycin. Gentamicin trough is 1. Will continue gentamicin for synergy. Infectious disease consult and will defer further antibiotic management to them. Follow-up urine and blood cultures. The 2 sets of blood cultures that were obtained in [place] were reportedly drawn from the PICC line. Two peripheral blood cultures were drawn at [facility]. (one I puja myself during CVL placement). HEME: Chronic anemia Iron deficiency Continue ferrous sulfate 325 mill grams p.o. daily Received 2 units packed red cells in [place] ER due to anemia and shock. Hgb increased from 9.3 to 12. He does not appear to be actively bleeding, will monitor hgb and consult GI if showing signs of blood loss. ENDO: Euglycemic. Check TSH. PROPH: Heparin drip will afford DVT prophylaxis. Protonix for stress ulcer prophylaxis ACCESS: Right radial art line placed in the emergency department 02/04 #2. Left IJ central line placed 02/05/18 #1. Removed right upper extremity PICC. FULL CODE Patient is critically ill with fever, septic shock, NSTEMI all life threatening without treatment. Discussed with Dr. Cormier, bedside RN. Discussed with charge nurse to facilitate transfer CCT 60 minutes exclusive of separately billable procedures.
[2018-02-04] MEDS ORDERED: fentaNYL Citrate Inj 100 MCG/2 ML Ampul IV.PUSH ONE (23:42)
[2018-02-05] MEDS ORDERED: Acetaminophen 325 MG Tablet PO PRN
[2018-02-05] MEDS ORDERED: Bisacodyl 10 MG Supp RECTAL PRN
[2018-02-05] MEDS ORDERED: Sodium Phosphate Inj 30 MMOL in Sodium Chlor 0.9% Inj 250 ML IV.SIG PRN (00:19)
[2018-02-05] MEDS ORDERED: Potassium Chlor 40 mEq Premix 40 MEQ/100 ML PIGGYBACK IV.SIG PRN (00:19)
[2018-02-05] MEDS ORDERED: Potassium Phosphate 500 MG Soluble Tablet PO PRN ×2 (00:19)
[2018-02-05] MEDS ORDERED: Potassium Phosphate Inj 30 MMOL in Sodium Chlor 0.9% Inj 250 ML IV.SIG PRN (00:19)
[2018-02-05] MEDS ORDERED: Magnesium Sulfate Inj 2 GM in Sodium Chlor 0.9% Inj 96 ML IV.SIG PRN (00:19)
[2018-02-05] MEDS ORDERED: Magnesium Sulfate Inj 4 GM in Sodium Chlor 0.9% Inj 92 ML IV.SIG PRN (00:19)
[2018-02-05] MEDS ORDERED: Magnesium Oxide 400 MG Tablet PO PRN (00:19)
[2018-02-05] MEDS: Pregabalin 75 MG Capsule PO SCH ×2 (00:30→08:34)
[2018-02-05 01:10] LABS: Magnesium 2.1 mg/dL (1.5-2.5); Phosphorus 3.2 mg/dL (2.5-4.9)
--- NOTE | 2018-02-05 01:23 | P.PCN ---
Date of procedure: 02/05/18 Procedure: DATE: 02/05/18 CENTRAL LINE PLACEMENT: Left internal jugular vein. Ultrasound-guided INDICATION: Central venous access CONSENT Informed consent for procedure was obtained from patient after discussion of risks, benefits, alternatives. DESCRIPTION OF THE PROCEDURE The patient was placed in supine position, mild Trendelenburg. The skin was cleansed with Chloraprep 4. Additional barrier precautions included large sterile drape, sterile gloves, sterile gown, face mask, and hat. 1 % lidocaine was used for local anesthesia. Under direct ultrasound guidance and on single attempt, the vein was accessed with an introducer needle. The guide wire was advanced and the tract was dilated. Using Seldinger technique a 7 Egyptian 20 cm antimicrobial coated triple-lumen catheter was advanced to a depth of 19.5 centimeters. The guide wire was removed. All ports had good return of dark venous blood and flushed easily with saline. The central line was secured with 2.0 silk after failure of StatLock to adhere x2 attempts. A sterile dressing with antibiotic disc was applied. ESTIMATED BLOOD LOSS: Minimal COMPLICATIONS: No apparent complications. STAT chest x-ray demonstrated satisfactory central venous line position without apparent complication. No pneumothorax.
[2018-02-05 01:35] LABS: Hematocrit 34.8 % (39.0-51.0); Mean Corpuscular HGB Conc 34.3 % (32.0-36.0); Mean Corpuscular Hemoglobin 30.4 pg (27.0-34.0); Mean Corpuscular Volume 88.7 fL (80.0-100.0); Mean Platelet Volume 8.4 fL (7.0-11.0); Platelet Count 463 th/mm3 (150-450); Red Blood Count 3.93 mil/mm3 (4.50-5.90); Red Cell Distribution Width 16.7 % (11.6-17.2); White Blood Count 15.8 th/mm3 (4.0-11.0)
[2018-02-05] MEDS: Piperacil/Tazo 3.375 GM Premix 50 ML IV.SIG SCH ×4 (01:50→23:59)
--- NOTE | 2018-02-05 01:51 | XR ---
EXAM DATE: 02/05/2018 1:47 AM EDT AGE/SEX: 62 years / Male INDICATIONS: Central line placement. CLINICAL DATA: This is the patient's initial encounter. Patient reports that signs and symptoms have been present for 1 day and indicates a pain score of 0/10. MEDICAL/SURGICAL HISTORY: . Chronic obstructive pulmonary disease. Cerebrovascular disease. C ABG. COMPARISON: [facility], CHEST 1V SINGLE AP, 02/04/2018. . FINDINGS: Single AP view of the chest. Right-sided PICC line remains in place. Left IJ central venous catheter is now in place with the tip at the cavoatrial junction. No evidence of pneumothorax. Mild bilateral interstitial opacity more prominent than on the comparison study. No evidence of pleural effusion. Ca rdiomediastinal silhouette within normal limits. Median sternotomy wires are noted. CONCLUSION: 1. Left IJ central venous catheter now in place with tip at the cavoatrial junction. No evidence of pneumothorax. 2. Mild bilateral interstitial pulmonary opacity. Electronically signed by: Fabiano Boggs MD 02/05/2018 1:50 AM EDT
[2018-02-05] MEDS ORDERED: Vancomycin Consult Pharmacy 1 EACH OTHER SCH (02:00)
[2018-02-05] MEDS ORDERED: Heparin Drip 25,000 UNIT/250 ML BAG IV.CONT PRN (02:35)
[2018-02-05 02:57] LABS: Activated Partial Thrombo Time 39.6 sec (24.3-30.1); INR 1.5 Ratio; Prothrombin Time 14.8 sec (9.8-11.6)
[2018-02-05] MEDS: Chlorhexidine Gluconate 2% 1 Pack (2 Cloths) TOPICAL SCH (03:21)
[2018-02-05] MEDS ORDERED: Chlorhexidine Gluconate 2% 1 Pack (2 Cloths) TOPICAL PRN (04:00)
[2018-02-05] MEDS ORDERED: Vancomycin Inj 1,250 MG in Sodium Chlor 0.9% Inj 250 ML IV.SIG ONE (04:00)
[2018-02-05] MEDS: Morphine Inj 4 MG/ML Vial IV.PUSH PRN ×5 (06:19→13:56)
[2018-02-05 06:35] LABS: Hematocrit 36.9 % (39.0-51.0); Hemoglobin 12.4 gm/dL (13.0-17.0); Mean Corpuscular HGB Conc 33.4 % (32.0-36.0); Mean Corpuscular Hemoglobin 29.9 pg (27.0-34.0); Mean Corpuscular Volume 89.3 fL (80.0-100.0); Platelet Count 494 th/mm3 (150-450); Red Blood Count 4.14 mil/mm3 (4.50-5.90); Red Cell Distribution Width 16.7 % (11.6-17.2); White Blood Count 16.2 th/mm3 (4.0-11.0)
[2018-02-05] MEDS: Senna/Docusate Sodium 8.6/50 MG Tablet PO SCH (08:34)
[2018-02-05] MEDS: Ferrous Sulfate 325 MG Tablet PO SCH (08:34)
--- NOTE | 2018-02-05 08:58 | US ---
EXAM DATE: 02/05/2018 8:51 AM EDT AGE/SEX: 62 years / Male INDICATIONS: Abnormal renal function. CLINICAL DATA: This is the patient's initial encounter. Patient reports that signs and symptoms have been present for 2 days and indicates a pain score of 9/10. MEDICAL/SURGICAL HISTORY: Chronic obstructive pulmonary disease. Osteoporosis. CVA. Neuropathy . . Heart valve replacement. COMPARISON: [facility] [place], CT ABDOMEN & PELVIS W CONTRAST, 01/28/2018. . MEASUREMENTS: Right Kidney:__11.2 x 6.2 x 5.2 cm Left Kidney:__9.6 x 4.8 x 4.5 cm FINDINGS: Mildly suboptimal study secondary to the patient's body habitus with suboptimal visualizati on of the left kidney. Right Kidney: Normal in size and shape. The echogenicity is equal to that of adjacent liver. There is no solid mass or hydronephrosis. There is a simple cyst in the upper pole measuring 3.5 x 3.1 x 3.2 cm. Left Kidney: Visualization was suboptimal. The echogenicity is mildly increased. No mass or hydroneph rosis. Bladder: Within normal limits given the degree of distension. Other: A small amount of free fluid is noted along the spleen. CONCLUSION: 1. No evidence of hydronephrosis. 2. The echogenicity of the kidneys is equal to that of the liver which can be seen with medical taryn l disease. 3. Simple cyst in right kidney. 4. Suboptimal visualization of the left kidney. 5. Small amount of free fluid along the spleen. This could represent an adjacent pleural effusion. Electronically signed by: Charles Chun MD 02/05/2018 8:57 AM EDT
[2018-02-05] MEDS ORDERED: GENTAMICIN IV.SIG SCH (09:00)
[2018-02-05] MEDS ORDERED: Famotidine 20 MG Tablet PO SCH (09:00)
[2018-02-05] MEDS ORDERED: SODIUM CHLOR 0.9% IV.SIG SCH (09:00)
[2018-02-05] MEDS ORDERED: Iohexol 350 MG/ML 50 ML Vial (for Cath Lab) IVCONTRAST ONE (10:19)
[2018-02-05] MEDS ORDERED: Iohexol 350 MG/ML 100 ML Vial (for Cath Lab) IVCONTRAST ONE (10:19)
--- NOTE | 2018-02-05 12:19 | P.PNCC ---
Subjective Subjective Remarks/Hospital Course: 62-year-old male with past medical history of [place] mechanical aortic valve (09/21/12 Dr. Gonzalez), on chronic anticoagulation with warfarin, atrial fibrillation postop from AVR , COPD on 2.5 L home O2, stroke in 2015 resulting in left-sided sensory deficits and neuropathy, osteoporosis with chronic low back pain. He was recently admitted to [facility] from 01/23 through 01/31/18 for MSSA bacteremia. It is believed that the original source of infection was a wound on his right index finger when electric drill slipped and created a puncture wound. He was discharged with right upper extremity PICC line receiving cefazolin 2 g IV every 8 hours and gentamicin 210 mg IV daily. He states that home health administered antibiotics at 17:00 and shortly thereafter he began having chills and rigors and sought medical attention at [facility]. He had no rash. Upon arrival, he was hypotensive in the low 80s. He was given 2 L S bolus but remained hypotensive so was started on Levophed. He then developed heart rate in the 140s, reportedly atrial flutter so he was started on Amiodarone drip in [place] and converted to sinus rhythm. He was transfused 2 units PRBC due to Hgb 9.3. His stool was nonbloody nonmelena but was Hemoccult positive. He was given zosyn and vancomycin. Critical care medicine was then contacted and accepted patient for transfer to [facility]. He denies tenderness/redness/drainage at PICC site. Aside from mechanical aortic valve, he has no other hardware or indwelling devices. He denies headache, cough, dysuria. He has had a few loose stools at home, but stools have sometimes been formed. He denies chest pain, does report some SOB. EKG at [place] had marked inferolateral ischemic changes. Obtained EKG upon arrival to [facility] which is improved. SUBJ 02/05: Patient remains critical ill appearing, complaints of chest tightness but denies pain. Remains on 8 mcg/min of Levophed to maintain map about 65. However increasing shortness of breath. Chest x-ray shows increasing pulmonary edema. Troponin was 27.5 currently on IV heparin therapeutic. Cardiology consult is pending at this time. I will stop on maintenance fluids give 40 mg IV Lasix and IV albumin 25 g 1. Patient is very critical patient and updated at the bedside Objective Vital Signs / I&O: Vital Signs 02/04/18 23:00 02/05/18 00:00 02/05/18 01:00 Temperature 98.7 F 98.7 F 98.7 F Pulse Rate 88 82 140 H Respiratory Rate 21 24 20 Blood Pressure 110/48 L 110/44 L 120/52 L Pulse Oximetry 97 97 97 02/05/18 02:00 02/05/18 03:00 02/05/18 04:00 Temperature 98.7 F 98.4 F Pulse Rate 92 H 100 H 102 H Respiratory Rate 22 30 H 31 H Blood Pressure 116/54 L 104/48 L 102/48 L Pulse Oximetry 97 92 L 91 L 02/05/18 04:12 02/05/18 04:41 02/05/18 04:46 Temperature Pulse Rate 91 H Respiratory Rate 25 H Blood Pressure Pulse Oximetry 92 L 95 02/05/18 05:00 02/05/18 05:56 02/05/18 06:00 Temperature Pulse Rate 102 H 106 H Respiratory Rate 24 31 H 27 H Blood Pressure 110/50 L 116/52 L Pulse Oximetry 97 89 L 02/05/18 06:39 02/05/18 08:00 02/05/18 08:39 Temperature 99.1 F Pulse Rate 111 H Respiratory Rate 28 H 16 Blood Pressure 110/65 Pulse Oximetry 94 L 92 L 02/05/18 10:22 02/05/18 12:00 Temperature 98.9 F Pulse Rate 111 H Respiratory Rate 28 H 20 Blood Pressure 106/56 L Pulse Oximetry 100 Intake & Output 02/04/18 02/05/18 02/05/18 18:59 06:59 18:59 Intake Total 750 / 750 Output Total 600 / 600 Balance 150 / 150 Weight 59.6 kg Intake: IV 550 / 550 Cordarone Inj 450 MG In D5W Inj 250 / 250 241 ML @ 1 MG/MIN 33.33 mls/hr IV.CONT TITRATE PRN Rx#: [id number] Levophed-Dextrose 4 mg/250 ml 250 / 250 Drip 4 mg In 250 ml @ 2 MCG/MIN 7.5 mls/hr IV.SIG TITRATE PRN Rx#:[id number] Zosyn 3.375 GM Premix 50 ML @ 50 / 50 100 mls/hr IV.SIG Q6H ADRIEN Rx#: [id number] Oral 200 / 200 Output: Urine 600 / 600 Other: # Voids 3 Date of Last Bowel Movement 02/04/18 02/04/18 # Bowel Movements 0 Result Diagrams: 02/05/18 06:27 Imaging: Chest x-ray shows bilateral infiltrates/pulmonary edema Objective Remarks: GENERAL: Ill-appearing thin male with temporal wasting who is sitting up in ISC bed, appears critically ill short of breath. SKIN: Warm and dry. HEAD: Atraumatic. Normocephalic. EYES: Pupils equal and round, 2 mm and reactive. No scleral icterus. No injection or drainage. ENT: No nasal bleeding or discharge. Mucous membranes pink and moist. NECK: Trachea midline. +ve JVD. CARDIOVASCULAR: Regular rate and rhythm, currently sinus rhythm on the monitor with rate in the 80s. No murmurs rubs or gallops. Remains on 8 mcg/min of Levophed RESPIRATORY: Tachypneic using some accessory muscles, prolonged expiratory phase , few basilar wheezes and crackles posteriorly. GASTROINTESTINAL: Abdomen soft, non-tender, nondistended. Bowel sounds present VASC: Right radial art line in place with distal perfusion intact. MUSCULOSKELETAL: Extremities without clubbing, cyanosis, or edema. No obvious deformities. NEUROLOGICAL: Awake and alert oriented 3. No obvious cranial nerve deficits. Strength is 5 out of 5 in right side, 4 out of 5 in the left Assessment and Plan - Problem List (1) Septic shock Code(s): A41.9 - Sepsis, unspecified organism; R65.21 - Severe sepsis with septic shock Status: Acute (2) Staph aureus infection Code(s): A49.01 - Methicillin susceptible Staphylococcus aureus infection, unspecified site Status: Acute (3) NSTEMI (non-ST elevated myocardial infarction) Code(s): I21.4 - Non-ST elevation (NSTEMI) myocardial infarction Status: Acute (4) Status post mechanical aortic valve replacement Code(s): Z95.2 - Presence of prosthetic heart valve Status: Chronic (5) Chronic anticoagulation Code(s): Z79.01 - alf (current) use of anticoagulants Status: Chronic (6) Chronic back pain Code(s): M54.9 - Dorsalgia, unspecified; G89.29 - Other chronic pain Status: Chronic (7) H/O aortic valve replacement Code(s): Z95.2 - Presence of prosthetic heart valve Status: Acute (8) Physical deconditioning Code(s): R53.81 - Other malaise Status: Chronic (9) BPH (benign prostatic hyperplasia) Code(s): N40.0 - Benign prostatic hyperplasia without lower urinary tract symptoms Status: Chronic (10) COPD with hypoxia Code(s): J44.9 - Chronic obstructive pulmonary disease, unspecified; R09.02 - Hypoxemia Status: Chronic - Assessment and Plan Plan: NEURO: History of stroke in 2015 Neuropathy left upper and lower extremity Chronic low back pain Osteopenia Lortab 10/325 every 4 hours as needed for pain Morphine as needed for breakthrough pain Continue Lyrica 150 mg p.o. twice daily Cymbalta 90 mg p.o. daily RESP: Pulmonary edema Respiratory insufficiency COPD on 2.5 L home O2 Prior tobacco abuse Albuterol every 2 hours as needed for wheezing Continue nasal cannula and titrate as needed to maintain sats greater than 92% CV: NSTEMI Septic shock Pulmonary edema [place] mechanical aortic valve (09/21/12 Dr. Gonzalez) s/p Tricuspid annuloplasty Continue Levophed to maintain map greater than 65, currently on 8 mcg/min. DC LR 100 ml/hr. IV Lasix 40 mg 1 with IV albumin 25 g due to increasing pulmonary EKG from emergency department demonstrated atrial flutter with rate in the 130s with ST depression in II/III/ F, V4 through V6 Troponin up trending to 10.9, now 27,5 Continue aspirin, heparin drip. PTT therapeutic Not a candidate for beta-rasheed or ARETHA inhibitor due to hypotension Will continue amiodarone for now for rhythm maintenance as AF-RVR contributing to ischemia, further management per cardiology. Obtain 2D echo, Cardiology consult [place] 01/23/18no evidence of vegetation or thrombus. Normal functioning aortic mechanical valve with trivial aortic insufficiency. Tricuspid annuloplasty. Mild to moderate LV generalized hypokinesis Had recent LDLs and cholesterol checked in January which were very low, still indicated to be on statins. Start Lipitor 40 mg nightly His knot bumper is Romana Bartlett in [place]. Patient denies any recent ischemic workup GI: NPO until clinically more improved Protonix for stress ulcer prophylactic Had normal EGD on 10/21/17 FEN/RENAL: BPH Normal renal function. Renal ultrasound to evaluate for evidence of obstruction -did not show any obstruction Hold tamsulosin for now Continue multivitamin. ID: MSSA bacteremia ?UTI PICC removed Has been on Ancef but was given Zosyn in the emergency department. Continue Zosyn and vancomycin, continue gentamicin for synergy Infectious disease consult and will defer further antibiotic management to them. Follow-up urine and blood cultures. The 2 sets of blood cultures that were obtained in [place] were reportedly drawn from the PICC line. Two peripheral blood cultures were drawn at [facility] . HEME: Chronic anemia Iron deficiency Continue ferrous sulfate 325 mill grams p.o. daily Received 2 units packed red cells in [place] ER due to anemia and shock. Hgb increased from 9.3 to 12. He does not appear to be actively bleeding, will monitor hgb and consult GI if showing signs of blood loss. ENDO: Euglycemic. PROPH: Heparin drip. Protonix for stress ulcer prophylaxis ACCESS: Right radial art line placed in the emergency department 02/04 #2. Left IJ central line placed 02/05/18 #1. Removed right upper extremity PICC. FULL CODE Patient is critically ill with fever, septic shock, NSTEMI all life threatening without treatment. Discussed with Dr. Cormier, bedside RN. Discussed with charge nurse to facilitate transfer CCT 40 minutes exclusive of separately billable procedures. Code Status: Full
--- NOTE | 2018-02-05 13:10 | XR ---
EXAM DATE: 02/05/2018 1:00 PM EDT AGE/SEX: 62 years / Male INDICATIONS: Shortness of breath. CLINICAL DATA: This is the patient's subsequent encounter. Patient reports that signs and symptoms h ave been present for 2 days and indicates a pain score of 0/10. MEDICAL/SURGICAL HISTORY: . Suspected pulmonary edema, COPD . 2013 bypass COMPARISON: [facility], CHEST 1V SINGLE AP, 02/05/2018. . FINDINGS: A single AP erect portable view of the chest was obtained and again demonstrates bilateral alveolar o pacities. This appears mildly increased especially in the right lung base. The patient is again noted be status post median sternotomy and there is mild cardiomegaly. The left-sided central venous line remains in place. Atherosclerotic changes are present in the aorta. The costophrenic angles appear sl ightly blunted. An artificial valve prosthesis is again noted. CONCLUSION: 1. Mild apparent increase in bilateral pulmonary infiltrates most characteristic of pulmonary edema. 2. Mild blunting of the costophrenic angles which could indicate small effusions. There is mild card iomegaly again noted. Electronically signed by: Charles Chun MD 02/05/2018 1:09 PM EDT
[2018-02-05] MEDS ORDERED: Albumin Human 25% Inj 100 ML IV.SIG ONE (13:20)
[2018-02-05 14:11] LABS: Albumin 2.4 g/dL (3.4-5.0); Anion Gap 14 meq/L (5-15); Aspartate Aminotransferase 475 U/L (15-37); Blood Urea Nitrogen 17 mg/dL (7-18); Carbon Dioxide 16.4 meq/L (21.0-32.0); Chloride 105 meq/L (98-107); Glomerular Filtration Rate 80 mL/min (>89); Glucose,Random 181 mg/dL (74-106); Potassium 4.3 meq/L (3.5-5.1); Sodium 135 meq/L (136-145)
[2018-02-05 14:12] LABS: Alanine Aminotransferase 107 U/L (12-78)
[2018-02-05 14:16] LABS: Alkaline Phosphatase 74 U/L (45-117)
--- NOTE | 2018-02-05 15:01 | ECG ---
Date Performed: 02/05/2018 Time Performed: 00:22:18 PTAGE: 62 years EKG: Sinus rhythm . Possible septal infarct - age undetermined Inferior/lateral ST-T changes are nonspecific Abnormal E CG Compared to PREVIOUS TRACING , rhythm has changed from atrial fibrillation to sinus rhythm. The marke d ST-T changes seen on prior tracings has for the most part resolved. PREVIOUS TRACIN02/04/2018 19. 39.04 DOCTOR: Luis Todd Interpretating Date/Time 02/05/2018 14:59:36
[2018-02-05 15:16] LABS: ABG Base Excess -7.5 mmol/L (-2-2); ABG PCO2 24 mmHg (38-42); ABG PO2 52 mmHg (61-120)
--- NOTE | 2018-02-05 15:47 | ECHRPT ---
Indication: SHORTNESS OF BREATH CONCLUSIONS The left ventricular systolic function is severely reduced with an estimated ejection fraction less than 20%. Only the basal inferior wall moves Normal left ventricular size. Wall thickness is normal. There is diffuse global hypokinesis with distinct regional wall motion abnormalities. The left atrial size is [id number] dilated. The right atrial size is mildly dilated. No atrial level shunt is demonstrated by color flow Doppler interrogation. [id number]-[id number] mitral valve regurgitation. No aortic valve stenosis. Bioprosthesis present There is mild tricuspid valve regurgitation. The estimated pulmonary arterial pressure is 42.7 mmHg. Trivial pulmonary valve regurgitation. The right ventricular systoilc function is moderately decreased. BP: / HR: Rhythm: Sinus MEASUREMENTS (Male / Female) Normal Values Technical Quality:Fair 2D ECHO LV Diastolic Diameter PLAX 5.0 cm 4.2 - 5.9 / 3.9 - 5.3 cm LV Systolic Diameter PLAX 3.8 cm IVS Diastolic Thickness 0.9 cm 0.6 - 1.0 / 0.6 - 0.9 cm LVPW Diastolic Thickness 0.7 cm 0.6 - 1.0 / 0.6 - 0.9 cm LV Relative Wall Thickness 0.3 RV Internal Dim ED PLAX 3.8 cm LVOT Diameter 2.3 cm Aortic Root Diameter 3.3 cm LA Systolic Diameter LX 4.5 cm 3.0 - 4.0 / 2.7 - 3.8 cm DOPPLER AV Peak Velocity 138.0 cm/s AV Peak Gradient 7.6 mmHg AV Mean Gradient 5.0 mmHg AV Velocity Time Integral 14.7 cm LVOT Peak Velocity 55.6 cm/s LVOT Peak Gradient 1.2 mmHg LVOT Velocity Time Integral 6.7 cm AV Area Cont Eq vti 1.9 cm AV Area Cont Eq pk 1.7 cm Mitral E Point Velocity 69.1 cm/s Mitral A Point Velocity 75.5 cm/s Mitral E to A Ratio 0.9 LV E' Lateral Velocity 9.0 cm/s Mitral E to LV E' Lateral Ratio 7.7 LV E' Septal Velocity 4.7 cm/s Mitral E to LV E' Septal Ratio 14.8 TR Peak Velocity 286.0 cm/s TR Peak Gradient 32.7 mmHg Right Atrial Pressure 10.0 mmHg Pulmonary Artery Systolic Pressu 42.7 mmHg Right Ventricular Systolic Press 42.7 mmHg PV Peak Velocity 44.4 cm/s PV Peak Gradient 0.8 mmHg FINDINGS LEFT VENTRICLE Normal left ventricular size. Wall thickness is normal. There is diffuse global hypokinesis with distinct regional wall motion abnormalities. The left ventricular systolic function is severely reduced with an estimated ejection fraction less than 20%. Only the basal inferior wall moves RIGHT VENTRICLE The right ventricular systoilc function is moderately decreased. LEFT ATRIUM The left atrial size is [id number] dilated. RIGHT ATRIUM The right atrial size is mildly dilated. ATRIAL SEPTUM No atrial level shunt is demonstrated by color flow Doppler interrogation. AORTA The aortic root and proximal ascending aorta are normal in size on limited imaging. MITRAL VALVE Fggr-oy-iarbyinm mitral valve regurgitation. AORTIC VALVE Aortic valve appears prosthetic No aortic valve stenosis. TRICUSPID VALVE There is mild tricuspid valve regurgitation. The estimated pulmonary arterial pressure is 42.7 mmHg. PULMONARY VALVE Trivial pulmonary valve regurgitation. VESSELS The inferior vena cava is normal in size. PERICARDIUM No pericardial effusion. Ernst Shankar MD (Electronically Signed) Final Date:05 February 2018 15:45
[2018-02-05] MEDS ORDERED: Sodium Bicarbonate 8.4% Inj 50 MEQ/50 ML Syringe IV.PUSH ONE (16:00)
[2018-02-05] MEDS ORDERED: Sodium Bicarbonate 8.4% Inj 50 MEQ/50 ML Syringe ONE (16:09)
[2018-02-05 16:51] LABS: VBG Base Excess 0.7 mmol/L (-2-2); VBG Blood Gas Oxygen Content 7.3 Vol % (9.0-17.0); VBG PCO2 34 mmHG (44-48); VBG PH 7.46 (7.360-7.400); VBG PO2 28 mmHG (35-40)
[2018-02-05] MEDS: Vancomycin Inj 1,250 MG in Sodium Chlor 0.9% Inj 250 ML IV.SIG SCH (16:54)
[2018-02-05] MEDS: Milrinone Inj 20 MG in Sodium Chlor 0.9% Inj 80 ML IV.CONT SCH (17:11)
--- NOTE | 2018-02-05 17:57 | P.CONID ---
History of Present Illness Service: ID Consult date: 02/05/18 Requesting Physician: Annika Spears Reason for Consult: sepsis Primary Care Provider: Regan Rogers Family Provider: Regan Rogers Chief Complaint: Fever, septic shock History of Present Illness: 62 yo male with muultiple med problems and sp AVR was recentluy admitted gor MSSA sepsis and discharged on IV abx with PICC he presented with 1 day of high spiking fevers and chills denies urinary smptoms; UA with borderline elevated WBC, negative urine clx @ 1 day Reports 4 UTIs Blood cultures negative @ 1 day Line was removed + progressive SOB Not expectorating not much cough either Pt was started on zosyn, gentamycin and vanco On low dose of pressors Review of Systems All other systems reviewed negative except as stated in HPI Ears, Nose, Mouth, and Throat: Reports abnormal hearing PMFSH - History History Provided By: Patient - Medical History Medical History: Medical History (Last Reviewed 04/04/18 @ 10:06 by Criselda Gaspar MD) COPD (chronic obstructive pulmonary disease) CVA (cerebral vascular accident) HLD (hyperlipidemia) MSSA bacteremia Neuropathy Normal endoscopy Osteoporosis - Surgical History Surgical History: Surgical History (Last Reviewed 04/04/18 @ 10:06 by Criselda Gaspar MD) H/O mechanical aortic valve replacement History of inguinal hernia repair, bilateral - Family History Family History: Family History (Last Reviewed 04/04/18 @ 10:06 by Criselda Gaspar MD) Mother CAD (coronary artery disease) Father Valvular heart disease Brother Lung cancer - Social History I have reviewed the patient's Social History: Yes - Tobacco History Second Hand Smoke Exposure: No (On disability. 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 ) Smoking Status: Former smoker Tobacco Type: Cigarettes - Alcohol History How Often Do You Have a Drink Containing Alcohol: Monthly or less - Substance Use History Substance History: No History of Abuse Medications and Allergies Active Medications: Active Medications Acetaminophen (Tylenol) 650 mg PO Q6H PRN PRN Reason: fever >101 Hydrocodone Bitart/Acetaminophen (Acme 10/325) 1 tab PO Q4H PRN PRN Reason: PAIN 1-10 Last Admin: 02/05/18 13:56 Dose: 1 tab Al Hydroxide/Mg Hydroxide (Milk Of [place] Liq) 30 ml PO Q12H PRN PRN Reason: Mild Constipation Albuterol (Albuterol Neb (Prn)) 2.5 mg NEB Q2HR NEB PRN PRN Reason: SHORTNESS OF BREATH/WHEEZING Last Admin: 02/05/18 04:41 Dose: 2.5 mg Aspirin (Aspirin Chew) 81 mg PO DAILY [facility] Atorvastatin Calcium (Lipitor) 40 mg PO HS [facility] Bisacodyl (Dulcolax Supp) 10 mg RECTAL DAILY PRN PRN Reason: SEVERE CONSITIPATION Chlorhexidine Gluconate (Chlorhexidine 2% Cloth) 3 pack TOPICAL DAILY@0400 ADRIEN Stop: 02/10/18 03:59 Last Admin: 02/05/18 03:21 Dose: 3 pack Chlorhexidine Gluconate (Chlorhexidine 2% Cloth) 3 pack TOPICAL DAILY@0400 PRN PRN Reason: Extra cloth needed Stop: 02/10/18 03:59 Duloxetine HCl (Cymbalta) 90 mg PO DAILY [facility] Last Admin: 02/05/18 08:49 Dose: 90 mg Ferrous Sulfate (Ferosul) 325 mg PO DAILY [facility] Last Admin: 02/05/18 08:34 Dose: 325 mg Furosemide (Lasix Inj) 40 mg IV.PUSH BID@0900,1800 [facility] Norepinephrine Bitartrate (Levophed-Dextrose 4 Mg/250 Ml Drip) 4 mg in 250 mls @ 7.5 mls/hr IV.SIG TITRATE PRN; Protocol PRN Reason: Per Protocol Last Admin: 02/05/18 13:10 Dose: 8 mcg/min, 30 mls/hr Amiodarone HCl 450 mg/ (Dextrose) 250 mls @ 33.33 mls/hr IV.CONT TITRATE PRN; Protocol PRN Reason: Per Protocol Last Admin: 02/05/18 12:29 Dose: 1 mg/min, 33.33 mls/hr Magnesium Sulfate Inj 4 gm/ (Sodium Chloride) 100 mls @ 50 mls/hr IV.SIG UNSCH PRN PRN Reason: For Magnesium 0.9 - 1.1 mg/dL Magnesium Sulfate Inj 2 gm/ (Sodium Chloride) 100 mls @ 50 mls/hr IV.SIG UNSCH PRN PRN Reason: For Magnesium 1.2 - 1.6 mg/dL Potassium Chloride (Kcl 40 Meq Premix Inj) 40 meq in 100 mls @ 25 mls/hr IV.SIG Q2H PRN PRN Reason: For Potassium 2.8 - 3.2 mEq/L Potassium Chloride (Kcl 20 Meq Premix Inj) 20 meq in 100 mls @ 50 mls/hr IV.SIG Q2H PRN PRN Reason: For Potassium 3.3 - 3.5 mEq/L Potassium Chloride (Kcl 40 Meq Premix Inj) 40 meq in 100 mls @ 25 mls/hr IV.SIG UNSCH PRN PRN Reason: For Potassium 3.3 - 3.5 mEq/L Potassium Chloride (Kcl 20 Meq Premix Inj) 20 meq in 100 mls @ 50 mls/hr IV.SIG Q2H PRN PRN Reason: For Potassium 2.8 - 3.2 mEq/L Potassium Phosphate 30 mmol/ (Sodium Chloride) 260 mls @ 42 mls/hr IV.SIG UNSCH PRN PRN Reason: SEE LABEL COMMENTS Sodium Phosphate 30 mmol/ (Sodium Chloride) 260 mls @ 42 mls/hr IV.SIG UNSCH PRN PRN Reason: For Phosphorus < 2.5 mg/dL Piperacillin/Tazobactam/Dextrose (Zosyn 3.375 Gm Premix) 50 mls @ 100 mls/hr IV.SIG Q6H [facility] Last Infusion: 02/05/18 15:12 Dose: Infused Pharmacy Profile Note (Vancomycin Consult Pharmacy) 0 mls @ 0 mls/hr OTHER UNSCH [facility] Heparin Sodium/Dextrose (Heparin/D5w 25,000 U/250 Ml) 25,000 unit in 250 mls @ 0 mls/hr IV.CONT TITRATE PRN; Protocol PRN Reason: Per Protocol Last Titration: 02/05/18 16:52 Dose: 1,000 units/hr, 10 mls/hr Gentamicin Sulfate 210 mg/ (Sodium Chloride) 105.25 mls @ 100 mls/hr IV.SIG Q24H [facility] Last Admin: 02/05/18 08:49 Dose: 100 mls/hr Vancomycin HCl 1,250 mg/ (Sodium Chloride) 262.5 mls @ 250 mls/hr IV.SIG Q12H [facility] Last Admin: 02/05/18 16:54 Dose: 250 mls/hr Milrinone Lactate 20 mg/ (Sodium Chloride) 100 mls @ 0 mls/hr IV.CONT .Q0M ADRIEN ; Protocol Last Admin: 02/05/18 17:11 Dose: 0.375 mcg/kg/min, 6.7 mls/hr Lactulose (Lactulose Liq) 30 ml PO DAILY PRN PRN Reason: SEVERE CONSITIPATION Last Admin: 02/05/18 08:38 Dose: 30 ml Magnesium Oxide (Mag-Ox) 800 mg PO UNSCH PRN PRN Reason: For Magnesium 1.2 - 1.6 mg/dL Miscellaneous Information ([facility] [place] [facility] Ordered Lab Info) 0 each OTHER ONCE ONE Stop: 02/06/18 14:46 Morphine Sulfate (Morphine Inj) 2 mg IV.PUSH Q3H PRN PRN Reason: breakthrough pain 1-5 Last Admin: 02/05/18 12:00 Dose: 2 mg Morphine Sulfate (Morphine Inj) 4 mg IV.PUSH Q4H PRN PRN Reason: breakthrough pain 6-10 Last Admin: 02/05/18 13:56 Dose: 4 mg Multivitamins (Theragran) 1 tab PO DAILY [facility] Last Admin: 02/05/18 08:34 Dose: 1 tab Pantoprazole Sodium (Protonix) 40 mg PO DAILY [facility] Last Admin: 02/05/18 08:34 Dose: 40 mg Potassium Bicarb/Potassium Chloride (K-Lyte Cl Eff) 50 meq PO UNSCH PRN PRN Reason: For Potassium 3.3 - 3.5 mEq/L Potassium Phosphate (K-Phos Original) 2,000 mg PO Q4H PRN PRN Reason: Phosphorus Less Than 2.5 mg/dL Potassium Phosphate (K-Phos Original) 2,000 mg PO UNSCH PRN PRN Reason: SEE LABEL COMMENTS Pregabalin (Lyrica) 150 mg PO BID [facility] Last Admin: 02/05/18 08:34 Dose: 150 mg Senna/Docusate Sodium (Linda-Colace) 1 tab PO BID [facility] Last Admin: 02/05/18 08:34 Dose: 1 tab Sennosides (Senokot) 17.2 mg PO Q12H PRN PRN Reason: Moderate Constipation Sodium Chloride (Ns Flush) 2 ml IV.FLUSH BID [facility] Last Admin: 02/05/18 08:35 Dose: 2 ml Sodium Chloride (Ns Flush) 2 ml IV.FLUSH PRN PRN PRN Reason: FLUSH AFTER USING IV ACCESS Terbutaline Sulfate (Brethine Inj) 1 mg SQ UNSCH PRN PRN Reason: For Extravasation Allergies Allergy/AdvReac Type Severity Reaction Status Date / Time No Known Allergies Allergy Verified 02/04/18 18:10 Home Medications Medication Instructions Recorded Confirmed Type ascorbic acid (vitamin C) [Vitamin See Label Instructions .ROUTE 01/22/18 History C] .COMPLEX duloxetine [Cymbalta] 90 mg PO DAILY 01/22/18 02/06/18 History ferrous sulfate [Iron (ferrous 1 tab PO DAILY 01/22/18 02/06/18 History sulfate)] hydrocodone-acetaminophen [Acme] 1 tab PO Q6H 01/22/18 02/06/18 History multivitamin 1 cap PO QAM 01/22/18 02/06/18 History pregabalin [Lyrica] 200 mg PO BID 01/22/18 02/06/18 History tamsulosin [Flomax] 0.4 mg PO DAILY 01/22/18 02/06/18 History warfarin [Coumadin] 6 mg PO DAILY 01/22/18 02/06/18 History Exam Vital signs: Vital Signs 02/04/18 23:00 02/05/18 00:00 02/05/18 01:00 Temperature 98.7 F 98.7 F 98.7 F Pulse Rate 88 82 140 H Respiratory Rate 21 24 20 Blood Pressure 110/48 L 110/44 L 120/52 L Pulse Oximetry 97 97 97 02/05/18 02:00 02/05/18 03:00 02/05/18 04:00 Temperature 98.7 F 98.4 F Pulse Rate 92 H 100 H 102 H Respiratory Rate 22 30 H 31 H Blood Pressure 116/54 L 104/48 L 102/48 L Pulse Oximetry 97 92 L 91 L 02/05/18 04:12 02/05/18 04:41 02/05/18 04:46 Temperature Pulse Rate 91 H Respiratory Rate 25 H Blood Pressure Pulse Oximetry 92 L 95 02/05/18 05:00 02/05/18 05:56 02/05/18 06:00 Temperature Pulse Rate 102 H 106 H Respiratory Rate 24 31 H 27 H Blood Pressure 110/50 L 116/52 L Pulse Oximetry 97 89 L 02/05/18 06:39 02/05/18 08:00 02/05/18 08:39 Temperature 99.1 F Pulse Rate 111 H Respiratory Rate 28 H 16 Blood Pressure 110/65 Pulse Oximetry 94 L 92 L 02/05/18 10:22 02/05/18 12:00 02/05/18 14:05 Temperature 98.9 F Pulse Rate 111 H Respiratory Rate 28 H 20 25 H Blood Pressure 106/56 L Pulse Oximetry 100 02/05/18 14:26 Temperature Pulse Rate Respiratory Rate 25 H Blood Pressure Pulse Oximetry Intake & Output 02/04/18 02/05/18 02/05/18 18:59 06:59 18:59 Intake Total 750 / 750 700 / 700 Output Total 600 / 600 Balance 150 / 150 700 / 700 Weight 59.6 kg Intake: IV 550 / 550 700 / 700 Cordarone Inj 450 MG In D5W Inj 250 / 250 250 / 250 241 ML @ 1 MG/MIN 33.33 mls/hr IV.CONT TITRATE PRN Rx#: [id number] Flexbumin 25% Inj 100 ML @ 60 100 / 100 mls/hr IV.SIG ONCE ONE Rx#: [id number] Levophed-Dextrose 4 mg/250 ml 250 / 250 250 / 250 Drip 4 mg In 250 ml @ 2 MCG/MIN 7.5 mls/hr IV.SIG TITRATE PRN Rx#:[id number] Zosyn 3.375 GM Premix 50 ML @ 50 / 50 100 / 100 100 mls/hr IV.SIG Q6H ADRIEN Rx#: [id number] Oral 200 / 200 Output: Urine 600 / 600 Other: # Voids 3 Date of Last Bowel Movement 02/04/18 02/04/18 # Bowel Movements 0 - Constitutional moderate distress (resp ) - Routine HEENT Exam Head: Present: normocephalic, atraumatic Eye: Present: EOMI, PERRL, conjunctivae pink ENT: Present: mucous membranes moist, oropharynx clear - Routine Neck Exam Present: supple, full ROM - Routine Respiratory Exam Present: accessory muscle use, decreased breath sounds, crackles (R side, extensive, L side some @ base ) - Routine Cardiovascular Exam Present: RRR, S1, S2 Comments: well healed median sternotomy scar cw PMH - Routine Abdominal Exam Present: soft, normoactive bowel sounds Comments: no organomegaly, no masses - Routine Extremities Exam Comments: no cyanosis clubbing edema loss of skin appendages - Routine Skin Exam Present: intact, dry, cracked - Routine Neurological Exam Present: alert, oriented X3, CN II-XII intact (ecept for VIII - decreased hearing), normal speech decreased hearing - Routine Psychiatric Exam Present: normal affect, normal thought process, cooperative Results - Labs CBC & Chem 7: 03/16/18 03:42 03/17/18 09:33 Labs: Laboratory Results - last 24 hr 02/04/18 02/04/18 02/04/18 23:00 23:45 23:45 WBC RBC Hgb Hct MCV MCH MCHC RDW Plt Count MPV PT INR APTT Puncture Site Patient Temperature O2 Saturation ABG pH ABG pCO2 ABG pO2 ABG HCO3 ABG O2 Content ABG Base Excess ABG Methemoglobin VBG pH VBG pCO2 VBG pO2 VBG HCO3 VBG O2 Saturation VBG O2 Content VBG Base Excess VBG Carboxyhemoglobin VBG Methemoglobin Hemoglobin Carboxyhemoglobin O2 Delivery Device Liter Flow Inspired O2 Critical Value Sodium Potassium Chloride Carbon Dioxide Anion Gap BUN Creatinine Estimated GFR Random Glucose Lactic Acid Calcium Phosphorus 3.2 Magnesium 2.1 Total Bilirubin AST ALT Alkaline Phosphatase Troponin I 10.90 H* Total Protein Albumin TSH Nasal Screen MRSA (PCR) Not detected Gentamicin Trough 02/05/18 02/05/18 02/05/18 01:15 01:28 01:28 WBC 15.8 H RBC 3.93 L Hgb 12.0 L D Hct 34.8 L MCV 88.7 MCH 30.4 MCHC 34.3 RDW 16.7 Plt Count 463 H MPV 8.4 PT 14.8 H INR 1.5 APTT 39.6 H Puncture Site Patient Temperature O2 Saturation ABG pH ABG pCO2 ABG pO2 ABG HCO3 ABG O2 Content ABG Base Excess ABG Methemoglobin VBG pH VBG pCO2 VBG pO2 VBG HCO3 VBG O2 Saturation VBG O2 Content VBG Base Excess VBG Carboxyhemoglobin VBG Methemoglobin Hemoglobin Carboxyhemoglobin O2 Delivery Device Liter Flow Inspired O2 Critical Value Sodium Potassium Chloride Carbon Dioxide Anion Gap BUN Creatinine Estimated GFR Random Glucose Lactic Acid Calcium Phosphorus Magnesium Total Bilirubin AST ALT Alkaline Phosphatase Troponin I Total Protein Albumin TSH Nasal Screen MRSA (PCR) Gentamicin Trough 1.0 02/05/18 02/05/18 02/05/18 06:27 06:27 06:27 WBC 16.2 H RBC 4.14 L Hgb 12.4 L Hct 36.9 L MCV 89.3 MCH 29.9 MCHC 33.4 RDW 16.7 Plt Count 494 H MPV 8.0 PT INR APTT Puncture Site Patient Temperature O2 Saturation ABG pH ABG pCO2 ABG pO2 ABG HCO3 ABG O2 Content ABG Base Excess ABG Methemoglobin VBG pH VBG pCO2 VBG pO2 VBG HCO3 VBG O2 Saturation VBG O2 Content VBG Base Excess VBG Carboxyhemoglobin VBG Methemoglobin Hemoglobin Carboxyhemoglobin O2 Delivery Device Liter Flow Inspired O2 Critical Value Sodium Potassium Chloride Carbon Dioxide Anion Gap BUN Creatinine Estimated GFR Random Glucose Lactic Acid Calcium Phosphorus Magnesium Total Bilirubin AST ALT Alkaline Phosphatase Troponin I 27.50 H* Total Protein Albumin TSH 3.470 Nasal Screen MRSA (PCR) Gentamicin Trough 02/05/18 02/05/18 02/05/18 08:47 13:32 13:32 WBC RBC Hgb Hct MCV MCH MCHC RDW Plt Count MPV PT INR APTT 70.6 H D Puncture Site Patient Temperature O2 Saturation ABG pH ABG pCO2 ABG pO2 ABG HCO3 ABG O2 Content ABG Base Excess ABG Methemoglobin VBG pH VBG pCO2 VBG pO2 VBG HCO3 VBG O2 Saturation VBG O2 Content VBG Base Excess VBG Carboxyhemoglobin VBG Methemoglobin Hemoglobin Carboxyhemoglobin O2 Delivery Device Liter Flow Inspired O2 Critical Value Sodium 135 L Potassium 4.3 Chloride 105 Carbon Dioxide 16.4 L Anion Gap 14 BUN 17 Creatinine 0.95 Estimated GFR 80 L Random Glucose 181 H Lactic Acid Calcium 8.0 L Phosphorus Magnesium Total Bilirubin 1.0 AST 475 H ALT 107 H Alkaline Phosphatase 74 Troponin I Cancelled 32.90 H* Total Protein 7.0 Albumin 2.4 L TSH Nasal Screen MRSA (PCR) Gentamicin Trough 02/05/18 02/05/18 02/05/18 15:01 15:05 16:30 WBC RBC Hgb Hct MCV MCH MCHC RDW Plt Count MPV PT INR APTT 81.2 H Puncture Site Art line Patient Temperature 98.6 O2 Saturation 82 L* ABG pH 7.43 H ABG pCO2 24 L* ABG pO2 52 L* ABG HCO3 16 L* ABG O2 Content 12.8 ABG Base Excess -7.5 L ABG Methemoglobin 0.9 VBG pH VBG pCO2 VBG pO2 VBG HCO3 VBG O2 Saturation VBG O2 Content VBG Base Excess VBG Carboxyhemoglobin VBG Methemoglobin Hemoglobin 11.1 L Carboxyhemoglobin 1.3 O2 Delivery Device Nasal cannula Liter Flow 4.00 Inspired O2 21 Critical Value Yes Sodium Potassium Chloride Carbon Dioxide Anion Gap BUN Creatinine Estimated GFR Random Glucose Lactic Acid 3.7 H Calcium Phosphorus Magnesium Total Bilirubin AST ALT Alkaline Phosphatase Troponin I Total Protein Albumin TSH Nasal Screen MRSA (PCR) Gentamicin Trough 02/05/18 16:38 WBC RBC Hgb Hct MCV MCH MCHC RDW Plt Count MPV PT INR APTT Puncture Site Line Patient Temperature 98.6 O2 Saturation ABG pH ABG pCO2 ABG pO2 ABG HCO3 ABG O2 Content ABG Base Excess ABG Methemoglobin VBG pH 7.46 H VBG pCO2 34 L VBG pO2 28 L* VBG HCO3 24 VBG O2 Saturation 45 L VBG O2 Content 7.3 L VBG Base Excess 0.7 VBG Carboxyhemoglobin 1.2 VBG Methemoglobin 1.1 Hemoglobin 11.5 L Carboxyhemoglobin O2 Delivery Device Nasal cannula Liter Flow 4.00 Inspired O2 21 Critical Value Yes Sodium Potassium Chloride Carbon Dioxide Anion Gap BUN Creatinine Estimated GFR Random Glucose Lactic Acid Calcium Phosphorus Magnesium Total Bilirubin AST ALT Alkaline Phosphatase Troponin I Total Protein Albumin TSH Nasal Screen MRSA (PCR) Gentamicin Trough - Imaging Impressions Abdomen/Bladder Ultrasound 02/05/18 00:00 CONCLUSION: 1. No evidence of hydronephrosis. 2. The echogenicity of the kidneys is equal to that of the liver which can be seen with medical renal disease. 3. Simple cyst in right kidney. 4. Suboptimal visualization of the left kidney. 5. Small amount of free fluid along the spleen. This could represent an adjacent pleural effusion. Chest X-Ray 02/05/18 01:14 CONCLUSION: 1. Left IJ central venous catheter now in place with tip at the cavoatrial junction. No evidence of pneumothorax. 2. Mild bilateral interstitial pulmonary opacity. Chest X-Ray 02/05/18 12:32 CONCLUSION: 1. Mild apparent increase in bilateral pulmonary infiltrates most characteristic of pulmonary edema. 2. Mild blunting of the costophrenic angles which could indicate small effusions. There is mild cardiomegaly again noted. Assessment and Plan - Plan Sepsis ? PICC line - removed Previous MSSA sepsis DOubt UTI Resp insufficiency, PNA vs failure cont vanco cont zosyn hold gentamycin' azithro monitor blood clx monitor urine clx obtain sputum clx
--- NOTE | 2018-02-05 18:32 | P.CONCA ---
History of Present Illness Service: Cardiology Consult date: 02/05/18 Reason for Consult: NSTEMI Primary Care Provider: Regan Rogres [facility] Provider: Regan Rogers Chief Complaint: Fever, septic shock History of Present Illness: 62-year-old man, known to me, was transferred from [place] to [place] due to sepsis. He was recently admitted to [facility] from 01/23 through 01/31/18 for MSSA bacteremia. It is believed that the original source of infection was a wound on his right index finger when electric drill slipped and created a puncture wound. He was discharged with right upper extremity PICC line receiving cefazolin 2 g IV every 8 hours and gentamicin 210 mg IV daily. He states that home health administered antibiotics at 17:00 and shortly thereafter he began having chills and rigors and sought medical attention at [facility]. He had no rash. Upon arrival, he was hypotensive in the low 80s. He was given 2 L S bolus but remained hypotensive so was started on Levophed. He then developed heart rate in the 140s, reportedly atrial flutter so he was started on Amiodarone drip in [place] and converted to sinus rhythm. He was transfused 2 units PRBC due to Hgb 9.3. His stool was nonbloody nonmelena but was Hemoccult positive. He was given zosyn and vancomycin. Critical care medicine was then contacted and accepted patient for transfer to [facility]. He denies chest pain, does report some SOB. EKG at [place] had marked inferolateral ischemic changes. Obtained EKG upon arrival to [facility] which is improved. Troponin was initially elevated, and continue to trend up. Echo today showed LVEF 20% which was significantly declined as compared to prior study. He has no hx of CAD. He has hx of AVR with [facility] [place] mechanical aortic valve (09/21 Dr. Gonzalez), on chronic anticoagulation with warfarin, atrial fibrillation postop from AVR , COPD on 2.5 L home O2, stroke in 2014 resulting in left-sided sensory deficits and neuropathy, osteoporosis with chronic low back pain. Today, his condition declined, required IV Levophed and Milrinone. Review of Systems Constitutional: Reports chills, Reports excessive sweating, Reports fatigue, Reports fever(s), Reports headache(s), Reports lack of energy, Reports malaise, Reports weakness Eyes: Denies blurry vision, Denies dry eyes, Denies pain Cardiovascular: Reports fast heart rate, Denies chest pain, Denies fainting, Denies leg swelling Respiratory: Reports cough, Reports shortness of breath with activity, Denies pain on inspiration Gastrointestinal: Denies abdominal pain, Denies bright, red blood in stools, Denies change in bowel habits Musculoskeletal: Reports back pain, Reports joint pain, Reports muscle weakness Neurologic: Reports dizziness, Denies abnormal hearing Psychiatric: Reports anxiety Endocrine: Denies cold intolerance, Denies excessive sweating Hematologic/Lymphatic: Denies easy bleeding PMFSH - History History Provided By: Patient - Medical History Medical History: Medical History (Last Updated 02/05/18 @ 08:13 by Lori Aldridge MD) HLD (hyperlipidemia) MSSA bacteremia Normal endoscopy COPD (chronic obstructive pulmonary disease) CVA (cerebral vascular accident) Neuropathy Osteoporosis - Surgical History Surgical History: Surgical History (Last Updated 02/05/18 @ 08:14 by Lori Aldridge MD) H/O mechanical aortic valve replacement History of inguinal hernia repair, bilateral - Family History Family History: Family History (Last Updated 02/05/18 @ 08:15 by Lori Aldridge MD) Mother CAD (coronary artery disease) Father Valvular heart disease - Tobacco History Second Hand Smoke Exposure: No (On disability. 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 ) Smoking Status: Former smoker Tobacco Type: Cigarettes - Alcohol History How Often Do You Have a Drink Containing Alcohol: Monthly or less - Substance Use History Substance History: No History of Abuse Medications and Allergies Active Medications: Active Medications Acetaminophen (Tylenol) 650 mg PO Q6H PRN PRN Reason: fever >101 Hydrocodone Bitart/Acetaminophen ([place] 10/325) 1 tab PO Q4H PRN PRN Reason: PAIN 1-10 Last Admin: 02/05/18 13:56 Dose: 1 tab Al Hydroxide/Mg Hydroxide (Milk Of [place] Liq) 30 ml PO Q12H PRN PRN Reason: Mild Constipation Albuterol (Albuterol Neb (Prn)) 2.5 mg NEB Q2HR NEB PRN PRN Reason: SHORTNESS OF BREATH/WHEEZING Last Admin: 02/05/18 04:41 Dose: 2.5 mg Aspirin (Aspirin Chew) 81 mg PO DAILY [facility] Atorvastatin Calcium (Lipitor) [address] [facility] Bisacodyl (Dulcolax Supp) 10 mg RECTAL DAILY PRN PRN Reason: SEVERE CONSITIPATION Chlorhexidine Gluconate (Chlorhexidine 2% Cloth) 3 pack TOPICAL DAILY@0400 [facility] Stop: 02/10/18 03:59 Last Admin: 02/05/18 03:21 Dose: 3 pack Chlorhexidine Gluconate (Chlorhexidine 2% Cloth) 3 pack TOPICAL DAILY@0400 PRN PRN Reason: Extra cloth needed Stop: 02/10/18 03:59 Duloxetine HCl (Cymbalta) [address] [facility] Last Admin: 02/05/18 08:49 Dose: 90 mg Ferrous Sulfate (Ferosul) [address] [facility] Last Admin: 02/05/18 08:34 Dose: 325 mg Furosemide (Lasix Inj) 40 mg IV.PUSH BID@0900,1800 [facility] Norepinephrine Bitartrate (Levophed-Dextrose 4 Mg/250 Ml Drip) 4 mg in 250 mls @ 7.5 mls/hr IV.SIG TITRATE PRN; Protocol PRN Reason: Per Protocol Last Admin: 02/05/18 13:10 Dose: 8 mcg/min, 30 mls/hr Amiodarone HCl 450 mg/ (Dextrose) 250 mls @ 33.33 mls/hr IV.CONT TITRATE PRN; Protocol PRN Reason: Per Protocol Last Admin: 02/05/18 12:29 Dose: 1 mg/min, 33.33 mls/hr Magnesium Sulfate Inj 4 gm/ (Sodium Chloride) 100 mls @ 50 mls/hr IV.SIG UNSCH PRN PRN Reason: For Magnesium 0.9 - 1.1 mg/dL Magnesium Sulfate Inj 2 gm/ (Sodium Chloride) 100 mls @ 50 mls/hr IV.SIG UNSCH PRN PRN Reason: For Magnesium 1.2 - 1.6 mg/dL Potassium Chloride (Kcl 40 Meq Premix Inj) 40 meq in 100 mls @ 25 mls/hr IV.SIG Q2H PRN PRN Reason: For Potassium 2.8 - 3.2 mEq/L Potassium Chloride (Kcl 20 Meq Premix Inj) 20 meq in 100 mls @ 50 mls/hr IV.SIG Q2H PRN PRN Reason: For Potassium 3.3 - 3.5 mEq/L Potassium Chloride (Kcl 40 Meq Premix Inj) 40 meq in 100 mls @ 25 mls/hr IV.SIG UNSCH PRN PRN Reason: For Potassium 3.3 - 3.5 mEq/L Potassium Chloride (Kcl 20 Meq Premix Inj) 20 meq in 100 mls @ 50 mls/hr IV.SIG Q2H PRN PRN Reason: For Potassium 2.8 - 3.2 mEq/L Potassium Phosphate 30 mmol/ (Sodium Chloride) 260 mls @ 42 mls/hr IV.SIG UNSCH PRN PRN Reason: SEE LABEL COMMENTS Sodium Phosphate 30 mmol/ (Sodium Chloride) 260 mls @ 42 mls/hr IV.SIG UNSCH PRN PRN Reason: For Phosphorus < 2.5 mg/dL Piperacillin/Tazobactam/Dextrose (Zosyn 3.375 Gm Premix) 50 mls @ 100 mls/hr IV.SIG Q6H [facility] Last Infusion: 02/05/18 15:12 Dose: Infused Pharmacy Profile Note (Vancomycin Consult Pharmacy) 0 mls @ 0 mls/hr OTHER UNSCH [facility] Heparin Sodium/Dextrose (Heparin/D5w 25,000 U/250 Ml) 25,000 unit in 250 mls @ 0 mls/hr IV.CONT TITRATE PRN; Protocol PRN Reason: Per Protocol Last Titration: 02/05/18 16:52 Dose: 1,000 units/hr, 10 mls/hr Vancomycin HCl 1,250 mg/ (Sodium Chloride) 262.5 mls @ 250 mls/hr IV.SIG Q12H [facility] Last Admin: 02/05/18 16:54 Dose: 250 mls/hr Milrinone Lactate 20 mg/ (Sodium Chloride) 100 mls @ 0 mls/hr IV.CONT .Q0M [facility] ; Protocol Last Admin: 02/05/18 17:11 Dose: 0.375 mcg/kg/min, 6.7 mls/hr Azithromycin 500 mg/ Sodium (Chloride) 250 mls @ 250 mls/hr IV.SIG Q24H [facility] Lactulose (Lactulose Liq) 30 ml PO DAILY PRN PRN Reason: SEVERE CONSITIPATION Last Admin: 02/05/18 08:38 Dose: 30 ml Magnesium Oxide (Mag-Ox) 800 mg PO UNSCH PRN PRN Reason: For Magnesium 1.2 - 1.6 mg/dL Miscellaneous Information ([facility] Ordered Lab Info) 0 each OTHER ONCE ONE Stop: 02/06/18 14:46 Morphine Sulfate (Morphine Inj) 2 mg IV.PUSH Q3H PRN PRN Reason: breakthrough pain 1-5 Last Admin: 02/05/18 12:00 Dose: 2 mg Morphine Sulfate (Morphine Inj) 4 mg IV.PUSH Q4H PRN PRN Reason: breakthrough pain 6-10 Last Admin: 02/05/18 13:56 Dose: 4 mg Multivitamins (Theragran) [address] [facility] Last Admin: 02/05/18 08:34 Dose: 1 tab Pantoprazole Sodium (Protonix) [address] [facility] Last Admin: 02/05/18 08:34 Dose: 40 mg Potassium Bicarb/Potassium Chloride (K-Lyte Cl Eff) 50 meq PO UNSCH PRN PRN Reason: For Potassium 3.3 - 3.5 mEq/L Potassium Phosphate (K-Phos Original) 2,000 mg PO Q4H PRN PRN Reason: Phosphorus Less Than 2.5 mg/dL Potassium Phosphate (K-Phos Original) 2,000 mg PO UNSCH PRN PRN Reason: SEE LABEL COMMENTS Pregabalin (Lyrica) [address] [facility] Last Admin: 02/05/18 08:34 Dose: 150 mg Senna/Docusate Sodium (Linda-Colace) [address] [facility] Last Admin: 02/05/18 08:34 Dose: 1 tab Sennosides (Senokot) 17.2 mg PO Q12H PRN PRN Reason: Moderate Constipation Sodium Chloride (Ns Flush) [address] [facility] Last Admin: 02/05/18 08:35 Dose: 2 ml Sodium Chloride (Ns Flush) 2 ml IV.FLUSH PRN PRN PRN Reason: FLUSH AFTER USING IV ACCESS Terbutaline Sulfate (Brethine Inj) 1 mg SQ UNSCH PRN PRN Reason: For Extravasation Allergies Allergy/AdvReac Type Severity Reaction Status Date / Time No Known Allergies Allergy Verified 02/04/18 18:10 Home Medications Medication Instructions Recorded Confirmed Type ascorbic acid (vitamin C) [Vitamin See Label Instructions .ROUTE 01/22/18 History C] .COMPLEX duloxetine [Cymbalta] 90 mg PO DAILY 01/22/18 01/24/18 History ferrous sulfate [Iron (ferrous See Label Instructions .ROUTE 01/22/18 01/24/18 History sulfate)] .COMPLEX hydrocodone-acetaminophen 1 tab PO Q6H 01/22/18 01/24/18 History multivitamin 1 cap PO QAM 01/22/18 01/24/18 History pregabalin [Lyrica] 200 mg PO BID 01/22/18 01/24/18 History tamsulosin 0.4 mg PO DAILY 01/22/18 01/24/18 History warfarin 6 mg PO DAILY 01/22/18 01/24/18 History Exam Vital signs: Vital Signs 02/04/18 23:00 02/05/18 00:00 02/05/18 01:00 Temperature 98.7 F 98.7 F 98.7 F Pulse Rate 88 82 140 H Respiratory Rate 21 24 20 Blood Pressure 110/48 L 110/44 L 120/52 L Pulse Oximetry 97 97 97 02/05/18 02:00 02/05/18 03:00 02/05/18 04:00 Temperature 98.7 F 98.4 F Pulse Rate 92 H 100 H 102 H Respiratory Rate 22 30 H 31 H Blood Pressure 116/54 L 104/48 L 102/48 L Pulse Oximetry 97 92 L 91 L 02/05/18 04:12 02/05/18 04:41 02/05/18 04:46 Temperature Pulse Rate 91 H Respiratory Rate 25 H Blood Pressure Pulse Oximetry 92 L 95 02/05/18 05:00 02/05/18 05:56 02/05/18 06:00 Temperature Pulse Rate 102 H 106 H Respiratory Rate 24 31 H 27 H Blood Pressure 110/50 L 116/52 L Pulse Oximetry 97 89 L 02/05/18 06:39 02/05/18 08:00 02/05/18 08:39 Temperature 99.1 F Pulse Rate 111 H Respiratory Rate 28 H 16 Blood Pressure 110/65 Pulse Oximetry 94 L 92 L 02/05/18 10:22 02/05/18 12:00 02/05/18 14:05 Temperature 98.9 F Pulse Rate 111 H Respiratory Rate 28 H 20 25 H Blood Pressure 106/56 L Pulse Oximetry 100 02/05/18 14:26 02/05/18 15:30 02/05/18 16:00 Temperature 99.1 F Pulse Rate 103 H Respiratory Rate 25 H 19 Blood Pressure 108/61 Pulse Oximetry 94 L 100 Intake & Output 02/04/18 02/05/18 02/05/18 18:59 06:59 18:59 Intake Total 750 / 750 700 / 700 Output Total 600 / 600 Balance 150 / 150 700 / 700 Weight 59.6 kg Intake: IV 550 / 550 700 / 700 Cordarone Inj 450 MG In D5W Inj 250 / 250 250 / 250 241 ML @ 1 MG/MIN 33.33 mls/hr IV.CONT TITRATE PRN Rx#: [id number] Flexbumin 25% Inj 100 ML @ 60 100 / 100 mls/hr IV.SIG ONCE ONE Rx#: [id number] Levophed-Dextrose 4 mg/250 ml 250 / 250 250 / 250 Drip 4 mg In 250 ml @ 2 MCG/MIN 7.5 mls/hr IV.SIG TITRATE PRN Rx#:[id number] Zosyn 3.375 GM Premix 50 ML @ 50 / 50 100 / 100 100 mls/hr IV.SIG Q6H [facility] Rx#: [id number] Oral 200 / 200 Output: Urine 600 / 600 Other: # Voids 3 Date of Last Bowel Movement 02/04/18 02/04/18 # Bowel Movements 0 - Constitutional moderate distress - Routine HEENT Exam Head: Present: normocephalic, atraumatic - Routine Neck Exam Present: supple, full ROM, JVD - Routine Chest/Breast/Axilla Exam Chest wall: Absent: tenderness, mass - Routine Respiratory Exam Present: accessory muscle use, decreased breath sounds, rales, respiratory distress - Routine Cardiovascular Exam Present: S1, S2, tachycardia, irregular rhythm - Routine Abdominal Exam Present: soft, normoactive bowel sounds. Absent: tenderness - Routine Extremities Exam Present: full ROM. Absent: edema - Routine Skin Exam Present: intact - Routine Neurological Exam Present: alert, oriented X3, CN II-XII intact Results 02/05/18 06:27 02/05/18 13:32 Cardiac Enzymes 02/04/18 02/05/18 02/05/18 Range/Units 23:45 06:27 13:32 AST (15-37) U/L Troponin I 10.90 H* 27.50 H* Cancelled (0.02-0.05) ng/mL 02/05/18 Range/Units 13:32 AST 475 H (15-37) U/L Troponin I 32.90 H* (0.02-0.05) ng/mL Coagulation 02/05/18 02/05/18 02/05/18 Range/Units 01:28 08:47 15:05 PT 14.8 H (9.8-11.6) sec APTT 39.6 H 70.6 H D 81.2 H (24.3-30.1) sec CBC 02/05/18 02/05/18 Range/Units 01:15 06:27 WBC 15.8 H 16.2 H (4.0-11.0) th/mm3 RBC 3.93 L 4.14 L (4.50-5.90) mil/mm3 Hgb 12.0 L D 12.4 L (13.0-17.0) gm/dL Hct 34.8 L 36.9 L (39.0-51.0) % Plt Count 463 H 494 H (150-450) th/mm3 Comprehensive Metabolic Panel 02/05/18 Range/Units 13:32 Sodium 135 L (136-145) meq/L Potassium 4.3 (3.5-5.1) meq/L Chloride 105 (98-107) meq/L Carbon Dioxide 16.4 L (21.0-32.0) meq/L BUN 17 (7-18) mg/dL Creatinine 0.95 (0.60-1.30) mg/dL Calcium 8.0 L (8.5-10.1) mg/dL AST 475 H (15-37) U/L ALT 107 H (12-78) U/L Alkaline Phosphatase 74 (45-117) U/L Total Protein 7.0 (6.4-8.2) g/dL Albumin 2.4 L (3.4-5.0) g/dL Intake and Output 02/05/18 02/05/18 02/05/18 06:59 14:59 22:59 Intake Total 750 / 750 550 / 550 150 / 150 Output Total 600 / 600 Balance 150 / 150 550 / 550 150 / 150 Intake: IV 550 / 550 550 / 550 150 / 150 Cordarone Inj 450 MG In D5W Inj 250 / 250 250 / 250 241 ML @ 1 MG/MIN 33.33 mls/hr IV.CONT TITRATE PRN Rx#: [id number] Flexbumin 25% Inj 100 ML @ 60 100 / 100 mls/hr IV.SIG ONCE ONE Rx#: [id number] Levophed-Dextrose 4 mg/250 ml 250 / 250 250 / 250 Drip 4 mg In 250 ml @ 2 MCG/MIN 7.5 mls/hr IV.SIG TITRATE PRN Rx#:[id number] Zosyn 3.375 GM Premix 50 ML @ 50 / 50 50 / 50 50 / 50 100 mls/hr IV.SIG Q6H [facility] Rx#: [id number] Oral 200 / 200 Output: Urine 600 / 600 Other: # Voids 3 Date of Last Bowel Movement 02/04/18 02/04/18 02/04/18 # Bowel Movements 0 Weight 59.6 kg - Imaging and Cardiology Echo: report reviewed EKG interpretations - Blocks, axis, hypertrophy, ST abn Repolarization changes or abnormalities: ST or T wave suggestive of ischemia Assessment and Plan - Assessment (1) Cardiogenic shock Code(s): R57.0 - Cardiogenic shock Status: Acute (2) Bacteremia Code(s): R78.81 - Bacteremia Status: Acute (3) NSTEMI (non-ST elevated myocardial infarction) Code(s): I21.4 - Non-ST elevation (NSTEMI) myocardial infarction Status: Acute (4) Status post mechanical aortic valve replacement Code(s): Z95.2 - Presence of prosthetic heart valve Status: Chronic (5) COPD with hypoxia Code(s): J44.9 - Chronic obstructive pulmonary disease, unspecified; R09.02 - Hypoxemia Status: Chronic - Plan 1. Cardiogenic shock, NSTEMI, abnormal ECG. LVEF 20% by today Echo. IV Heparin initiated. Condition deteriorated in spite of support with pressor and Milrinone. Hypoxia, tachycardia, Troponin continue to trend up I think he needs urgent coronary angiogram, possible IABP for hemodynamic support. 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 2. Anemia, stable after transfusion 3. Sepsis, on Abx 4. hx of AVR on AC. CAMERON last week showed normal prosthesis function, trace AR. 5.
[2018-02-05] MEDS ORDERED: Heparin/NS PF Inj 1,000 ML ONE (19:33)
[2018-02-05] MEDS ORDERED: fentaNYL Citrate Inj 100 MCG/2 ML Ampul ONE (19:33)
[2018-02-05] MEDS ORDERED: Heparin 10,000 UNITS/10 ML Vial (for IV use) ONE (19:33)
--- NOTE | 2018-02-05 21:33 | P.PCNCA ---
- Post Op Diagnosis (1) CAD (coronary artery disease) - Required Elements Procedure Date: 02/05/18 Procedure: Retrograde Left Heart Cath, Stent, IABP Procedure:: 1. Coronary angiogram 2. Proximal LAD stenting with a BMS 3x30 mm which extend to proximal Diagonal 3. Proximal diagonal Stenting with BMS 2.75x15, overlap with LAD stent 4. IABP placement. Description:: to CVICU Cardiac Cath Procedure Type: Urgent CAD Presentation: N STEMI Anginal Classification (2 weeks): CCS II Stress Test Performed: No Risk: Intermediate Heart Failure within 2 weeks: Yes - Class IV Cardiomyopathy: Yes LV Systolic Dysfunction: Yes Dominance: Right EF %: 20 Warehouse Manager: Wing Altagracia Bartlett MD - Coronary Anatomy L Main %: 0 Prox LAD %: 90 Mid LAD %: 50 Distal LAD %: 0 Diag %: 90 CX %: 10 OM %: 10 RCA %: 40 - PCI PCI #1 Vessel: Proximal LAD and Diagonal Pre Toan: 2 Post Toan: 3 Post Stenosis: 0 - Additional Information Additional Information:: Mid LAD spasm or plaque shift post stenting. We were able to wire mid LAD via stent strut, but not able to cross with a small balloon 1.5x12, even with support by guideliner support catheter. No flow limit of LAD noted. Will continue monitor. IABP placed for cardiogenic shock and enhance coronary flow. - Optional Items Anesthesia: Conscious Sedation (total time 90 minutes.) Drain(s): None Patient to: Other (CVICU) Patient condition: Critical (1) CAD (coronary artery disease) Qualifiers: Coronary Disease-Associated Artery/Lesion type: [place] artery Associated angina: with unstable angina Qualified Code(s): I25.110 - Atherosclerotic heart disease of [place] coronary artery with unstable angina pectoris
--- NOTE | 2018-02-05 21:52 | CATHPROC ---
[facility] HIS Report Study Information Study Number Admission Scheduled Start Study Start [id number] Feb 04 2018 10:35PM 02/05/2018 Feb 05 2018 7:04PM [place] [facility] Cardiac Catheterization Admit Source Facility Department Emergency department [facility] - Video News Editor Physician and Clinical Staff Initial Wing Shahana Dash Metal Fabricator Mohit Ray RN Metal Fabricator Génesis Daniels,RT(R) Recorder Raquel Hanson BSN Scrub Bree Engel ,RT(R) Procedures Performed Procedure Location (Site) Vessel Name Coronary Angiograms LCA Left Coronary Coronary Angiograms RCA Right Coronary IABP Fem Art (right) Femoral Art L Heart Cath PTCA DIAG1 Prox Left Coronary PTCA LAD Prox Left Coronary Stent DIAG1 Prox Left Coronary Stent LAD Prox Left Coronary Wire insertion Fem Art (right) Femoral Art Equipment Time Animal Stunner Description Size Mfg Part Number Used/Scraped COPILOT VALVE, BLEEDBACK [id number] 19:57 [employer] Used CONTROL *[id number] 19:55 [employer] WIRE, ASAHI PROWATER 180CM 180CM Used *[id number] WIRE, WHISPER W/HYDROCOAT [id number] 20:19 [employer] 190CM Used 190CM *[id number] TRANSDUCER, TRUWAVE [id number] 19:43 [employer] * Used W/STOCKCOCK *[id number] INTRODUCER SET, 19:43 [employer] FR 5 [id number] *[id number] Used MICROPUNCTURE STIFF [phone] *[id number] [id number] *[id number] [phone] *[id number] BALLOON, FR7.5 40CC [id number] 21:01 MAQUET FR 7.5 40CC Used SENSATION PLUS 01U *[id number] 19:43 [employer] BLANKET,WARM AIR CCL * Used *[id number] 19:43 [employer] PACK, CCL CUSTOM * Used *[id number] BALLOON, 1.25 X 12MM [id number] 20:39 [employer] 12MM Used SPRINTER LEGEND RX *[id number] BALLOON, 1.25 X 15MM [id number] 20:39 [employer] 15MM Used SPRINTER LEGEND OTW *[id number] [id number] 20:33 [employer] BALLOON, 1.5 X 12MM EUPHORA 12MM Used *[id number] 20:31 [employer] BALLOON, 2.0 X 12MM EUPHORA 12MM Used *[id number] [id number] 20:28 [employer] BALLOON, 2.5 X 12MM EUPHORA 12MM Used *[id number] 20:25 [employer] BALLOON, 2.5 X 15MM EUPHORA 15MM Used *8019415 [id number] 20:09 [employer] BALLOON, 2.5 X 15MM EUPHORA 15MM Used *2677090 [id number] 20:00 [employer] BALLOON, 2.5 X 20MM EUPHORA 20MM Used *6942527 [id number] 20:10 [employer] STENT, 2.75 14 INTEGRITY 2.75 14 Used *8139107 [id number] 20:05 [employer] STENT, 3.0 30 INTEGRITY 3.0 30 Used *[id number] [id number] 19:54 [employer] MEDICAL 30 RASHAD INDEFLATOR Used *9894482 [id number] 19:45 [employer] MEDICAL SHEATH, FR6.5 PRELUDE 11CM FR 6.5 038ACT Used *[id number] [id number] 19:43 [employer] MEDICAL WIRE, 3MMJ .035 180CM 180CM Used *[id number] [id number] 19:43 NAMIC MANIFOLD, 4 PORT * Used *[id number] 19:43 [employer] OMNIPAQUE, 350 MG, 150ML 150ML [id number] Used 19:55 [employer] OMNIPAQUE, 350 MG, 50ML 50ML [id number] Used 20:48 [employer] CATHETER, FR6 GUIDELINER FR 6 5598 *[id number] Used Equipment Model, Serial, Lot Number and Expiration Data Description Model Number Serial Number Lot Number Expiration Date BALLOON, 2.5 X 20MM EUPHORA [id number] 04-14-2019 STENT, 2.75 14 INTEGRITY [id number] 11-03-2019 STENT, 3.0 30 INTEGRITY [id number] 11-10-2019 History: Current Medications Medication Dosage/Unit Route Frequency Last Date/Time Taken ASA Statins (any) LASIX History: Allergies Allergy Reaction No Known Allergies History: Risk Factors Family History of Hypertension Dyslipidemia Previous MO Previous Heart Failure Premature CAD No No Yes No No Prior Valve Prior PCI Prior CABG Surgery No No No Cerebrovascular Peripheral Artery Chronic Lung On Dialysis Diabetes Disease Disease Disease No Yes No Yes No History: Symptoms/Diagnosis Selection Items Chest pain History: Stress Tests Stress or Imaging Studies Performed No History: Other Current Smoker No Labs Hgb (g/dl) Hct (%) WBC (l/cumm) Platelets (thousands) 11.60-17.00 35.00-51.00 4.00-11.00 150.00-450.00 12.4 36.9 16.2 491 Glucose (mg/dl) BUN (mg/dl) Creatinine (mg/dl) BUN:Creatinine (1:x) 74.00-106.00 7.00-18.00 0.50-1.30 10.00-20.00 181 17 0.9 18.9 Na (meq/l) K (meq/l) 136.00-145.00 3.50-5.10 135 4.3 INR (PTT:PT) 0.90-1.10 1.5 Troponin I (ng/ml) CPK-MB (ng/ML) 0.02-0.05 0.50-3.60 32.9 Not Drawn Medication Medication Total Dose (Bolus/Oral) Medication Total Dosage/Unit 1% XYLOCAINE 20 mL ANGIOMAX BOLUS 9 mL FENTANYL 50 mcg LASIX 20 mg NTG (IC) 100 mcg PLAVIX 600 mg VERSED 2 mg Medications (Bolus/Oral) Medication Time Given Dosage/Unit Administered By Reason VERSED 02/05/2018 7:40:04 PM 1 mg Cory, Mohit 1 mg VERSED given in lab by Mohit Ray RN via Peripheral IV. Ordered by Wing Shahana Bartlett. 1% XYLOCAINE 02/05/2018 7:40:42 PM 20 mL Cory, Mohit 20 mL 1% XYLOCAINE given in lab by Mohit Ray RN in Right Groin via Subcutaneous. Ordered by Wing Shahana Bartlett. ANGIOMAX BOLUS 02/05/2018 7:55:55 PM 9 mL Cory, Mohit 9 mL ANGIOMAX BOLUS given by Mohit Ray RN via Peripheral IV. Ordered by Wing Shahana Bartlett. VERSED 02/05/2018 8:09:51 PM 1 mg Cory, Mohit 1 mg VERSED given by Mohit Ray RN via Peripheral IV. Ordered by Wing Shahana Bartlett. NTG (IC) 02/05/2018 8:21:09 PM 100 mcg Mohit Ray 100 mcg NTG (IC) given by Mohit Ray RN via Intra-coronary. Ordered by Wing Shahana Bartlett. FENTANYL 02/05/2018 8:28:45 PM 50 mcg Cory, Mohit 50 mcg FENTANYL given in lab by Mohit Ray RN via Peripheral IV. Ordered by Wing Shahana Bartlett. LASIX 02/05/2018 8:37:00 PM 20 mg Cory, Mohit 20 mg LASIX given in lab by Mohit Ray RN via Peripheral IV. Ordered by Wing Shahana Bartlett. PLAVIX 02/05/2018 9:31:15 PM 600 mg Cory, Mohit 600 mg PLAVIX given in lab by Mohit Ray RN via Oral. Ordered by Wing Shahana Bartlett. Medication (Drip) Medication Time Given Dosage/Unit Concentration/Unit Diluent (ml) Solution Amiodarone Drip 02/05/2018 7:28:32 PM 1 mg/min 450 mg 250 D5W Patient arrived on 1 mg/min Amiodarone Drip. Pump/Drip Flow = 33.33 ml/hr using D5W with a concentrat ion of 450 mg in 250 ml. ANGIOMAX DRIP 02/05/2018 7:58:32 PM 1.745 mg/kg/hr 250 mg 50 NaCl .9 1.745 mg/kg/hr ANGIOMAX DRIP given by Mohit Ray RN via Peripheral IV. Pump/Drip Flow = 20.8 ml/hr using NaCl .9 with a concentration of 250 mg in 50 ml. Ordered by Wing Shahana Bartlett. IV Solutions 02/05/2018 7:37:46 PM 50 mL (IV) NaCl .9 IV Solutions given in lab by Mohit Ray RN via Peripheral IV. Pump/Drip Flow using NaCl .9. Ordere d by Wing Shahana Bartlett. at [facility] LEVOPHED 02/05/2018 7:28:31 PM 7 mcg/min 4 mg 250 D5W Patient arrived on 7 mcg/min LEVOPHED via Central IV. Pump/Drip Flow = 26.25 ml/hr using D5W with a c oncentration of 4 mg in 250 ml. Initial Case Assessment Cardiovascular HR Rhythm NIBP Chest Pain 109 st 97/68 6 Edema Present Skin color Skin None Normal Warm Dry Circulatory - Right Pulses Dorsalis Pedis Femoral 2 2 Scale (0,1,2,3,4,d) Circulatory - Left Pulses Dorsalis Pedis Femoral 2 2 Scale (0,1,2,3,4,d) Circulatory - Lower Extremities Color Lower Right Color Lower Left Normal Normal Respiration - General Respiration Rate SpO2 (%) O2 (lpm) (B/min) 24 94 15 Chronological Log Time Study Chronological Log 19::35 Patient arrived via Bed. 19::36 Patient Name, D.O.B, / Armband Verified By R.N. Vitals capture started with the following parameters, Patient=Adult, Interval=5 min, Initial Kmcuexag=929 mmHg, 19:26:32 Deflation Rate=5 mmHg, Cuff placed on Left Arm 19::44 Pre-op and post- op instructions given; patient acknowledges understanding of instruction s. 19:26:45 Consent signed by the physician and the patient and verified by the Video News Editor staff. 19:27:15 MT=450 bpm, NIBP=90/33 mmhg, SpO2=68.0 %, Resp=24 B/min, Pain=6, Dany=10, Fisher=2 19:28:19 Patient arrived on Milrinone infusion 19:28:27 Patient has been NPO for More than 6Hrs. 19:28:27 Skin Breakdown- none per patient 19:28:28 Patient Warmer Placed on the Table. 19:28:29 Disposable Defibrillator Pads Placed On Patient. 19:28:30 Jaron Prominences Protected 19:28:30 A CVL IV was noted in the Jugular Vein (left). Patient arrived on 7 mcg/min LEVOPHED via Central IV. Pump/Drip Flow = 26.25 ml/hr using D5W wi th a concentration 19:28:31 of 4 mg in 250 ml. Patient arrived on 1 mg/min Amiodarone Drip. Pump/Drip Flow = 33.33 ml/hr using D5W with a conc entration of 450 19:28:32 mg in 250 ml. 19:28:33 History and physical on the chart or being dictated. Assessment: Initial Case, QI=987 BPM, Rhythm=st, NIBP=97/68 mmhg, Chest Pain=6, Edema=None, Col or=Normal, Skin = Warm, Dry Right Pulses: Jose Ped=2, Femoral=2 19:28:34 Left Pulses: Jose Ped=2, Femoral=2 Lower Right Extremities: Color=Normal Lower Left Extremities: Color=Normal Respiration: Resp=24 B/min, SpO2=94 %, O2=15 lpm 19:31:58 KM=215 bpm, NIBP=94/68 mmhg, SpO2=93 %, Resp=23 B/min, Pain=6, Dany=10, Fisher=2 19:36:59 QS=693 bpm, NIBP=97/68 mmhg, SpO2=93.0 %, Resp=23 B/min IV Solutions given in lab by Mohit Ray RN via Peripheral IV. Pump/Drip Flow using NaCl .9. Ordered by Wing Shahana Bartlett. 19:37:46 at [facility] Time Out. Correct patient, correct procedure, correct physician, labs, allergies, and equipment verified with tender labor 19:38:32 team present. Fire risk assesment completed (see hard stop sheet for coding). Time Out Conc urred by MD and individual staff in procedure. 19:39:12 Pressure channel 1 zeroed. 19:39:36 Case Start 19:40:04 1 mg VERSED given in lab by Mohit Ray RN via Peripheral IV. Ordered by Wing Shahana Bartlett. 19:40:32 A # 20 IV was noted in the Forearm (left). Grade = 0 19:40:42 20 mL 1% XYLOCAINE given in lab by Mohit Ray RN in Right Groin via Subcutaneous. Ordere d by Wing Shahana Bartlett. 19:42:00 NN=160 bpm, JCSX=764/72 mmhg, SpO2=93.0 %, Resp=26 B/min, Pain=6, Dany=10, Fisher=2 19:44:35 Access site was Right Femoral Artery via ultrasound A INTRODUCER SET, MICROPUNCTURE STIFF FR 5 was advanced into the Fem Art (right) using the Perc utaneous 19:44:47 technique. A SHEATH, FR6.5 PRELUDE 11CM FR 6.5 was exchanged in the Fem Art (right). This was necessary in order to 19:45:13 accomodate a larger catheter. A JL 4.0 INFINITI CATHETER FR 6 was advanced over a wire. OMNIPAQUE, 350 MG, 150ML 150ML was us ed for 19:45:39 injections. 19:47:21 Reference ECG taken 19:47:30 YD=257 bpm, NIBP=91/78 mmhg, SpO2=95 %, Resp=21 B/min Recorded Pressure: Ao, PV=690, Condition=Condition 1 19:48:25 (Aorta) Ao 97/66/78 19:48:47 The LCA was injected and visualized at various angles. OMNIPAQUE, 350 MG, 150ML 150ML used . After removing the current catheter a 3DRC INFINITI CATHETER FR 6 was advanced over a WIRE, 3MM J .035 180CM 19:49:55 180CM. 19:51:58 LH=355 bpm, NIBP=94/70 mmhg, SpO2=94.0 %, Resp=31 B/min 19:52:33 The RCA was injected and visualized at various angles. OMNIPAQUE, 350 MG, 150ML 150ML used . 19:54:19 Catheter was removed 19:55:55 9 mL ANGIOMAX BOLUS given by Mohit Ray RN via Peripheral IV. Ordered by Wing Shahana Bartlett. 19:57:01 PO=384 bpm, NIBP=87/69 mmhg, Resp=24 B/min A XBLAD 3.5 GUIDE CATHETER FR 6 was advanced over a wire. OMNIPAQUE, 350 MG, 150ML 150ML was us ed for 19:57:45 injections. 1.745 mg/kg/hr ANGIOMAX DRIP given by Mohit Ray RN via Peripheral IV. Pump/Drip Flow = 20.8 ml/hr using NaCl 19:58:32 .9 with a concentration of 250 mg in 50 ml. Ordered by Wing Shahana Bartlett. 20:00:27 A WIRE, ASAHI PROWATER 180CM 180CM was inserted via Fem Art (right). 20:01:35 Interventional wire has crossed the lesion 20:02:00 MS=998 bpm, NIBP=95/66 mmhg, SpO2=91.0 %, Resp=25 B/min A BALLOON, 2.5 X 20MM EUPHORA 20MM was inserted over WIRE, ASAHI PROWATER 180CM 180CM via the F em Art 20:02:29 (right). A BALLOON, 2.5 X 20MM EUPHORA 20MM over a WIRE, ASAHI PROWATER 180CM 180CM in the DIAG1 Prox wa s 20:03:28 inflated using a 30 RASHAD INDEFLATOR at 5 rashad for 8 sec. A BALLOON, 2.5 X 20MM EUPHORA 20MM over a WIRE, ASAHI PROWATER 180CM 180CM in the LAD Prox was inflated 20:04:04 using a 30 RASHAD INDEFLATOR at 10 rashad for 10 sec. 20:06:06 Balloon Removed. 20:07:01 ET=270 bpm, NIBP=99/72 mmhg, SpO2=93.0 %, Resp=26 B/min An STENT, 3.0 30 INTEGRITY 3.0 30 Bare Metal Stent was inserted through a XBLAD 3.[address] FR 6 over 20:07:07 a WIRE, ASAHI PROWATER 180CM 180CM. 20:07:26 Stent not deployed. Stent removed and intact. A BALLOON, 2.5 X 15MM EUPHORA 15MM was inserted over WIRE, ASAHI PROWATER 180CM 180CM via the F em Art 20:09:05 (right). A BALLOON, 2.5 X 15MM EUPHORA 15MM over a WIRE, ASAHI PROWATER 180CM 180CM in the DIAG1 Prox wa s 20:09:29 inflated using a 30 RASHAD INDEFLATOR at 10 rashad for 8 sec. 20:09:51 1 mg VERSED given by Mohit Ray RN via Peripheral IV. Ordered by Wing Shahana Bartlett. 20:10:16 Balloon Removed. An STENT, 2.75 14 INTEGRITY 2.75 14 Bare Metal Stent was inserted through a XBLAD 3.5 GUIDE CAT HETER FR 6 20:11:31 over a WIRE, ASAHI PROWATER 180CM 180CM. 20:12:07 XM=492 bpm, NIBP=96/61 mmhg, SpO2=92.0 %, Resp=23 B/min A STENT, 2.75 14 INTEGRITY 2.75 14 was deployed using a 30 RASHAD INDEFLATOR at 8 atmospheres for 8 seconds in 20:12:30 the DIAG1 Prox. 20:13:24 Re-inflated the stent balloon in the DIAG1 Prox to 8 RASHAD for 10 seconds. 20:14:45 Delivery device removed An STENT, 3.0 30 INTEGRITY 3.0 30 Bare Metal Stent was inserted through a XBLAD 3.[address] FR 6 over 20:15:44 a WIRE, ASAHI PROWATER 180CM 180CM. A STENT, 3.0 30 INTEGRITY 3.0 30 was deployed using a 30 RASHAD INDEFLATOR at 10 atmospheres for 1 1 seconds in 20:16:53 the LAD Prox. 20:17:08 ZS=080 bpm, NIBP=95/53 mmhg, SpO2=95.0 %, Resp=41 B/min 20:17:41 Delivery device removed 20:21:09 100 mcg NTG (IC) given by Mohit Ray RN via Intra-coronary. Ordered by Wing Shahana Bartlett. 20:22:05 BV=297 bpm, NIBP=85/59 mmhg, SpO2=97 %, Resp=34 B/min 20:23:20 A WIRE, WHISPER W/HYDROCOAT 190CM 190CM was inserted via Fem Art (right). 20:23:50 Interventional wire has crossed the lesion A BALLOON, 2.5 X 15MM EUPHORA 15MM was inserted over WIRE, WHISPER W/HYDROCOAT 190CM 190CM via the 20:25:36 Fem Art (right). 20:26:34 NIBP STAT measurement started. 20:27:06 JP=037 bpm, NIBP=96/46 mmhg, SpO2=97 %, Resp=29 B/min 20:28:04 Balloon Removed. 20:28:45 50 mcg FENTANYL given in lab by Mohit Ray RN via Peripheral IV. Ordered by Wing Shahana Bartlett . A BALLOON, 2.0 X 12MM EUPHORA 12MM was inserted over WIRE, WHISPER W/HYDROCOAT 190CM 190CM via the 20:30:46 Fem Art (right). 20:32:07 PV=831 bpm, NIBP=96/59 mmhg, SpO2=88.0 %, Resp=46 B/min The previous balloon catheter was replaced by a BALLOON, 1.5 X 12MM EUPHORA 12MM over a WIRE, W HISPER 20:32:25 W/HYDROCOAT 190CM 190CM. 20:34:40 Balloon Removed. 20:37:00 20 mg LASIX given in lab by Mohit Ray RN via Peripheral IV. Ordered by Wing Shahana Bartlett. 20:37:06 UK=436 bpm, NIBP=95/67 mmhg, SpO2=92.0 %, Resp=34 B/min 20:40:22 Whisper Wire removed 20:41:25 Prowater redirected into LAD 20:42:07 KD=687 bpm, NIBP=85/65 mmhg, SpO2=94.0 %, Resp=28 B/min A BALLOON, 1.5 X 12MM EUPHORA 12MM was inserted over WIRE, ASAHI PROWATER 180CM 180CM via the F em Art 20:45:15 (right). 20:46:51 Balloon Removed. 20:47:04 IN=579 bpm, NIBP=87/63 mmhg, SpO2=90.0 %, Resp=35 B/min A CATHETER, FR6 GUIDELINER FR 6 was advanced over a wire. OMNIPAQUE, 350 MG, 150ML 150ML was us ed for 20:48:02 injections. 20:48:35 Levophed increased to 8 mcg/min A BALLOON, 1.5 X 12MM EUPHORA 12MM was inserted over WIRE, ASAHI PROWATER 180CM 180CM via the F em Art 20:49:19 (right). 20:50:11 Balloon Removed. 20:50:28 Guideliner removed 20:52:05 YP=919 bpm, NIBP=87/69 mmhg, SpO2=90.0 %, Resp=32 B/min 20:54:10 Wire and catheter removed 20:56:16 Sheath exchanged for intra-aortic balloon insertion. 20:57:08 MN=377 bpm, NIBP=85/65 mmhg, SpO2=86.0 %, Resp=28 B/min An BALLOON, FR7.5 40CC SENSATION PLUS FR 7.5 40CC was advanced to the descending aorta. Proper placement 20:57:11 was confired under fluoroscopy and the balloon was sutured in place. Ratio = 1. Augmented BP 21:02:46 XV=774 bpm, WBYH=588/63 mmhg, SpO2=91 %, Resp=31 B/min 21:07:16 TM=944 bpm, FYGN=497/60 mmhg, SpO2=84.0 %, Resp=34 B/min 21:10:41 Case End (Physician broke scrub) 21:10:49 Statlock and sterile dressing applied to site 21:10:50 No case complications noted. 21:10:52 Cine recording checked. 21:11:23 Bedside Report will be given. 21:11:26 Implantable Device card placed in patient's chart. 21:11:34 A Left Heart Cath was performed. 21:12:56 LN=162 bpm, VQOC=238/60 mmhg, SpO2=74.0 %, Resp=33 B/min 21:17:10 VU=604 bpm, ZVZE=369/98 mmhg, SpO2=85 %, Resp=29 B/min 21:22:17 ZZ=085 bpm, LBGE=224/67 mmhg, SpO2=90.0 %, Resp=26 B/min 21:25:58 Vitals capture stopped. 21:26:07 Patient moved to [facility] 21:31:15 600 mg PLAVIX given in lab by Mohit Ray RN via Oral. Ordered by Wing Shahana Bartlett. End Study - Contrast Media Used In Study Contrast Total Opened (mL) Total Used (mL) Total Wasted (mL) Omnipaque 130 130 0 End Study - Maximum Contrast Load Max Contrast Load (mL) 331.1 End Study - Radiation Exposure Fluoro Time (minutes) 22.7 End Study - Patient Disposition Complications Transferred To Interventional Outcome No Critical Care Bed successful
--- NOTE | 2018-02-05 22:56 | XR ---
EXAM DATE: 02/05/2018 10:52 PM EDT AGE/SEX: 62 years / Male INDICATIONS: Respiratory distress CLINICAL DATA: This is the patient's subsequent encounter. Patient reports that signs and symptoms h ave been present for 4 - 6 days and indicates a pain score of Nonresponsive. MEDICAL/SURGICAL HISTORY: . Suspected pulmonary edema, COPD . COPD [place] [facility] [place]. . FINDINGS: There is increasing mixed interstitial airspace opacity in the central lungs now extending to the per ipheral one third. There is also increasing consolidation in the left lower lung, now with complete l oss of delineation of the left hemidiaphragm. The heart is enlarged. Left central line catheter tip a t the cavoatrial junction. No evidence of pneumothorax. Prior median sternotomy and valve replacement . CONCLUSION: Increasing bilateral pulmonary infiltrates characteristic of pulmonary edema and increasing consolida tion in the left lower lobe. Electronically signed by: Isidro Mcclure MD 02/05/2018 10:55 PM EDT
[2018-02-05] MEDS: Azithromycin Inj 500 MG in Sodium Chlor 0.9% Inj 250 ML IV.SIG SCH (23:00)
[2018-02-05] MEDS ORDERED: Etomidate Inj 20 MG/10 ML Ampul IV.PUSH ONE (23:01)
[2018-02-05] MEDS ORDERED: Etomidate Inj 40 MG/20 ML Vial IV.PUSH ONE (23:05)
[2018-02-05 23:15] LABS: Hematocrit 32.5 % (39.0-51.0); Hemoglobin 11.2 gm/dL (13.0-17.0); Mean Corpuscular HGB Conc 34.5 % (32.0-36.0); Mean Corpuscular Hemoglobin 30.7 pg (27.0-34.0); Mean Corpuscular Volume 88.9 fL (80.0-100.0); Mean Platelet Volume 8.7 fL (7.0-11.0); Platelet Count 419 th/mm3 (150-450); Red Blood Count 3.66 mil/mm3 (4.50-5.90); Red Cell Distribution Width 16.3 % (11.6-17.2); White Blood Count 13.4 th/mm3 (4.0-11.0)
[2018-02-05 23:26] LABS: Calcium 7.8 mg/dL (8.5-10.1); Carbon Dioxide 21.5 meq/L (21.0-32.0); Potassium 3.8 meq/L (3.5-5.1)
--- NOTE | 2018-02-05 23:50 | P.PCN ---
Date of procedure: 02/05/18 Procedure: PROCEDURE NOTE PROCEDURE: Endotracheal intubation INDICATION: Acute hypoxemic respiratory failure, cardiogenic shock DETAILS OF PROCEDURE: The patient was placed in optimal position and preoxygenated with 100% FiO2 via [id number]. Oximeter oxygen saturation of 98% was obtained prior to direct laryngoscopy. The patient was administered etomidate 20 mg IV for sedation, Rocuronium 50 mg IV. Direct laryngoscopy was performed with a 2 Calzada laryngoscope blade and a grade 1 Cormack-Lehane view was obtained. On single attempt a size 8.0 endotracheal tube was visualized passing through the cords. Correct placement was confirmed with colorimetric CO2 detector. Breath sounds were equal bilaterally. No sounds auscultated over the stomach. The endotracheal tube was secured with a commercial tube parikh at a depth of 24 cm at the lips. The patient was connected to the ventilator. The patient tolerated the procedure well without any apparent complication. Oxygen saturations were maintained greater than 94 at all times. Stat chest x-ray was ordered and demonstrates satisfactory endotracheal tube position.
[2018-02-06 00:34] LABS: ABG Base Excess -3.2 mmol/L (-2-2); ABG PCO2 44 mmHg (38-42); ABG PO2 91 mmHg (61-120)
--- NOTE | 2018-02-06 01:44 | XR ---
EXAM DATE: 02/06/2018 12:37 AM EDT AGE/SEX: 62 years / Male INDICATIONS: Shortness of breath. CLINICAL DATA: This is the patient's subsequent encounter. Patient reports that signs and symptoms h ave been present for 4 - 6 days and indicates a pain score of Nonresponsive. MEDICAL/SURGICAL HISTORY: Chronic obstructive pulmonary disease. Sepsis. CABG. COMPARISON: [facility], CHEST 1V SINGLE AP, 02/05/2018. . FINDINGS: A single AP view of the chest demonstrates persistent increased perihilar densities characteristic of some degree of pulmonary edema. Persistent consolidation/effusion in the left base. Interval placeme nt of an endotracheal tube which is appropriately positioned above the renny. Left IJ central venous catheter projects over the central venous system. Heart size is borderline prominent. Findings of ao rtic valvular replacement. Dextroscoliosis of the dorsal spine with associated degenerative changes. CONCLUSION: 1. Persistent bihilar mixed interstitial and airspace process suggesting some degree of vascular con gestion or volume overload. No change. 2. Persistent left basilar consolidation/effusion. No change. 3. Interval placement of an endotracheal tube with the tip appropriately positioned above the renny Electronically signed by: Raza Ty MD 02/06/2018 1:43 AM EDT
[2018-02-06] MEDS: Bumetanide Inj 25 MG/100 ML BAG IV.CONT SCH (02:15)
[2018-02-06] MEDS: Piperacil/Tazo 3.375 GM Premix 50 ML IV.SIG SCH ×4 (02:50→22:34)
[2018-02-06] MEDS: Vancomycin Inj 1,250 MG in Sodium Chlor 0.9% Inj 250 ML IV.SIG SCH ×2 (03:15→15:00)
[2018-02-06] MEDS: Oral Hygiene Kit OROPHARYNG SCH ×4 (03:53→16:23)
[2018-02-06 04:24] LABS: Baso # (Auto) 0.1 th/mm3 (0.0-0.2); Baso % (Auto) 0.6 % (0.0-2.0); Hematocrit 33.3 % (39.0-51.0); Hemoglobin 11.1 gm/dL (13.0-17.0); Lymph % (Auto) 7.4 % (9.0-44.0); Mean Corpuscular HGB Conc 33.3 % (32.0-36.0); Mean Corpuscular Hemoglobin 30.2 pg (27.0-34.0); Mean Corpuscular Volume 90.6 fL (80.0-100.0); Mean Platelet Volume 8.4 fL (7.0-11.0); Mono % (Auto) 8.1 % (0.0-8.0); Neut # (Auto) 10.9 th/mm3 (1.8-7.7); Neut % (Auto) 83.9 % (16.0-70.0); Platelet Count 439 th/mm3 (150-450); Red Blood Count 3.67 mil/mm3 (4.50-5.90); Red Cell Distribution Width 16.7 % (11.6-17.2)
[2018-02-06 04:42] LABS: Calcium 7.8 mg/dL (8.5-10.1); Carbon Dioxide 24.7 meq/L (21.0-32.0); Potassium 3.9 meq/L (3.5-5.1)
[2018-02-06 04:46] LABS: INR 1.9 Ratio; Prothrombin Time 19.7 sec (9.8-11.6)
[2018-02-06] MEDS: Chlorhexidine Gluconate 2% 1 Pack (2 Cloths) TOPICAL SCH (05:05)
[2018-02-06] MEDS ORDERED: Digoxin Inj 500 MCG/2 ML Ampul IV.PUSH ONE ×2 (05:15→22:15)
--- NOTE | 2018-02-06 06:54 | XR ---
EXAM DATE: 02/06/2018 5:31 AM EDT AGE/SEX: 62 years / Male INDICATIONS: Shortness of breath, possible pulmonary disease. CLINICAL DATA: This is the patient's subsequent encounter. Patient reports that signs and symptoms h ave been present for 4 - 6 days and indicates a pain score of Nonresponsive. MEDICAL/SURGICAL HISTORY: Chronic obstructive pulmonary disease. Sepsis. CABG. COMPARISON: [facility], CHEST 1V SINGLE AP, 02/06/2018. . FINDINGS: A single AP view of the chest demonstrates persistent bilateral/ perihilar airspace disease suggestin g some degree of vascular congestion or volume overload. Persistent left basilar consolidation/effusi on. Possible small right-sided effusion. Life-support tubes including the endotracheal tube are stable in position. Heart size is borderline p rominent with findings of a prior valvular prosthesis CONCLUSION: 1. Persistent bilateral, predominantly perihilar mixed interstitial and airspace process suggesting some degree of vascular congestion or volume overload. 2. Persistent left basilar consolidation/effusion. 3. Stable position of life-support tubes. Electronically signed by: Raza Ty MD 02/06/2018 6:53 AM EDT
[2018-02-06] MEDS: Chlorhexidine 0.12% Oral Kit 15 ML UDC OROPHARYNG SCH ×2 (08:28→22:36)
[2018-02-06] MEDS: Ferrous Sulfate 325 MG Tablet PO SCH (09:21)
[2018-02-06] MEDS: Senna/Docusate Sodium 8.6/50 MG Tablet PO SCH ×3 (09:21→22:34)
[2018-02-06] MEDS: Pregabalin 75 MG Capsule PO SCH ×3 (09:23→22:34)
[2018-02-06 10:20] LABS: Calcium 7.8 mg/dL (8.5-10.1); Carbon Dioxide 25.5 meq/L (21.0-32.0); Potassium 3.7 meq/L (3.5-5.1)
[2018-02-06] MEDS: fentaNYL 10 mcg/mL Premix Drip 2,500 MCG/250 ML BAG IV.SIG PRN ×2 (10:41→20:37)
--- NOTE | 2018-02-06 13:38 | P.PNID ---
Subjective Remarks: events noted overnight intubated, placed on baloone pump + fever overnight no fever today Antibiotics: azithro zosyn vanco Allergies/Adverse Reactions: Allergies No Known Allergies Allergy (Verified 02/04/18 18:10) Objective Vital Signs 02/05/18 14:05 02/05/18 14:26 02/05/18 15:30 Temperature Pulse Rate Respiratory Rate 25 H 25 H Blood Pressure Pulse Oximetry 94 L 02/05/18 16:00 02/05/18 21:50 02/05/18 21:55 Temperature 99.1 F 100 F H Pulse Rate 103 H 109 H Respiratory Rate 19 22 Blood Pressure 108/61 111/80 Pulse Oximetry 100 82 L 97 02/05/18 23:00 02/05/18 23:20 02/06/18 00:00 Temperature 100.2 F H Pulse Rate 110 H Respiratory Rate 24 16 16 Blood Pressure 105/63 Pulse Oximetry 90 L 95 02/06/18 03:00 02/06/18 04:00 02/06/18 04:02 Temperature 98.6 F Pulse Rate 136 H 136 H Respiratory Rate 16 16 Blood Pressure 96/72 L Pulse Oximetry 96 99 02/06/18 04:42 02/06/18 07:00 02/06/18 07:59 Temperature 98.6 F 97.5 F L Pulse Rate 86 89 Respiratory Rate 16 Blood Pressure 108/80 128/60 Pulse Oximetry 99 02/06/18 08:04 02/06/18 08:41 02/06/18 11:00 Temperature 98.4 F Pulse Rate 84 Respiratory Rate 16 16 Blood Pressure 93/54 L Pulse Oximetry 99 99 99 02/06/18 11:38 Temperature Pulse Rate Respiratory Rate 16 Blood Pressure Pulse Oximetry Intake & Output 02/05/18 02/06/18 02/06/18 18:59 06:59 18:59 Intake Total 1542.5 / 1542.5 50 / 50 920.45 / 920.45 Output Total 850 / 850 1700 / 1700 Balance 692.5 / 692.5 -1650 / -1650 920.45 / 920.45 Weight 64 kg Intake: IV 962.5 / 962.5 50 / 50 920.45 / 920.45 Cordarone Inj 450 MG In D5W Inj 250 / 250 241 ML @ 1 MG/MIN 33.33 mls/hr IV.CONT TITRATE PRN Rx#: [id number] Heparin/D5W 25,000 U/250 mL 25, 250 / 250 000 unit In 250 ml @ Per Protocol IV.CONT TITRATE PRN Rx #:[id number] Flexbumin 25% Inj 100 ML @ 60 100 / 100 mls/hr IV.SIG ONCE ONE Rx#: [id number] Azithromycin Inj 500 MG In NS 250 / 250 Inj 250 ML @ 250 mls/hr IV.SIG Q24H [facility] Rx#:[id number] Levophed-Dextrose 4 mg/250 ml 250 / 250 Drip 4 mg In 250 ml @ 2 MCG/MIN 7.5 mls/hr IV.SIG TITRATE PRN Rx#:[id number] Zosyn 3.375 GM Premix 50 ML @ 100 / 100 50 / 50 50 / 50 100 mls/hr IV.SIG Q6H [facility] Rx#: [id number] Vancomycin Inj 1,250 MG In NS 262.5 / 262.5 265.2 / 265.2 Inj 250 ML @ 250 mls/hr IV.SIG Q12H [facility] Rx#:[id number] Oral 580 / 580 Output: Stool 0 / 0 Urine Amount (Catheter) 850 / 850 1700 / 1700 Indwelling Temp Sensing 850 / 850 1700 / 1700 Catheter Other: Date of Last Bowel Movement 02/04/18 02/04/18 02/05/18 00:42 Blood - Peripheral Aerobic Blood Culture - Preliminary No growth in 1 day 02/05/18 00:42 Blood - Peripheral Anaerobic Blood Culture - Preliminary No growth in 1 day 02/05/18 00:12 Blood - Peripheral Aerobic Blood Culture - Preliminary No growth in 1 day 02/05/18 00:12 Blood - Peripheral Anaerobic Blood Culture - Preliminary No growth in 1 day Lab - Hematology Results 02/05/18 02/05/18 02/05/18 01:15 06:27 22:45 WBC 15.8 H 16.2 H 13.4 H RBC 3.93 L 4.14 L 3.66 L Hgb 12.0 L D 12.4 L 11.2 L Hct 34.8 L 36.9 L 32.5 L MCV 88.7 89.3 88.9 MCH 30.4 29.9 30.7 MCHC 34.3 33.4 34.5 RDW 16.7 16.7 16.3 Plt Count 463 H 494 H 419 MPV 8.4 8.0 8.7 Neut % (Auto) Lymph % (Auto) Nye % (Auto) Eos % (Auto) Baso % (Auto) Neut # (Auto) Lymph # (Auto) Nye # (Auto) Eos # (Auto) Baso # (Auto) WBC Differential Differential Comment 02/06/18 03:30 WBC 13.0 H RBC 3.67 L Hgb 11.1 L Hct 33.3 L MCV 90.6 MCH 30.2 MCHC 33.3 RDW 16.7 Plt Count 439 MPV 8.4 Neut % (Auto) 83.9 H Lymph % (Auto) 7.4 L Nye % (Auto) 8.1 H Eos % (Auto) 0.0 Baso % (Auto) 0.6 Neut # (Auto) 10.9 H Lymph # (Auto) 1.0 Nye # (Auto) 1.0 H Eos # (Auto) 0.0 Baso # (Auto) 0.1 WBC Differential . Differential Comment Auto diff final Lab - Chemistry Results 02/04/18 02/04/18 02/05/18 23:45 23:45 06:27 Sodium Potassium Chloride Carbon Dioxide Anion Gap BUN Creatinine Estimated GFR POC Glucose Random Glucose Lactic Acid Calcium Phosphorus 3.2 Magnesium 2.1 Total Bilirubin AST ALT Alkaline Phosphatase Troponin I 10.90 H* 27.50 H* Total Protein Albumin [facility] 02/05/18 02/05/18 02/05/18 06:27 13:32 13:32 Sodium 135 L Potassium 4.3 Chloride 105 Carbon Dioxide 16.4 L Anion Gap 14 BUN 17 Creatinine 0.95 Estimated GFR 80 L POC Glucose Random Glucose 181 H Lactic Acid Calcium 8.0 L Phosphorus Magnesium Total Bilirubin 1.0 AST 475 H ALT 107 H Alkaline Phosphatase 74 Troponin I Cancelled 32.90 H* Total Protein 7.0 Albumin 2.4 L TSH 3.470 02/05/18 02/05/18 02/05/18 16:30 22:45 22:45 Sodium 136 Potassium 3.8 Chloride 102 Carbon Dioxide 21.5 Anion Gap 13 BUN 19 H Creatinine 1.21 Estimated GFR 60 L POC Glucose Random Glucose 153 H Lactic Acid 3.7 H 2.8 H Calcium 7.8 L Phosphorus Magnesium Total Bilirubin AST ALT Alkaline Phosphatase Troponin I Total Protein Albumin TSH 02/06/18 02/06/18 02/06/18 01:18 02:10 03:30 Sodium 138 Potassium 3.9 Chloride 104 Carbon Dioxide 24.7 Anion Gap 9 BUN 23 H Creatinine 1.41 H Estimated GFR 51 L POC Glucose 183 H Random Glucose 193 H Lactic Acid 2.8 H Calcium 7.8 L Phosphorus Magnesium 2.0 Total Bilirubin AST ALT Alkaline Phosphatase Troponin I Total Protein Albumin TSH 02/06/18 02/06/18 02/06/18 03:30 09:44 09:44 Sodium 139 Potassium 3.7 Chloride 106 Carbon Dioxide 25.5 Anion Gap 8 BUN 23 H Creatinine 1.36 H Estimated GFR 53 L POC Glucose Random Glucose 144 H Lactic Acid 2.2 H 1.3 Calcium 7.8 L Phosphorus Magnesium Total Bilirubin AST ALT Alkaline Phosphatase Troponin I Total Protein Albumin TSH Imaging: ITS Impressions Abdomen/Bladder Ultrasound 02/05/18 00:00 CONCLUSION: 1. No evidence of hydronephrosis. 2. The echogenicity of the kidneys is equal to that of the liver which can be seen with medical renal disease. 3. Simple cyst in right kidney. 4. Suboptimal visualization of the left kidney. 5. Small amount of free fluid along the spleen. This could represent an adjacent pleural effusion. Chest X-Ray 02/06/18 06:00 CONCLUSION: 1. Persistent bilateral, predominantly perihilar mixed interstitial and airspace process suggesting some degree of vascular congestion or volume overload. 2. Persistent left basilar consolidation/effusion. 3. Stable position of life-support tubes. Physical Exam: GENERAL: sedated intubasted on vent and baloon pump SKIN: Warm and dry. HEAD: Atraumatic. Normocephalic. EYES: Pupils equal and round. No scleral icterus. No injection or drainage. ENT: No nasal bleeding or discharge. Mucous membranes pink and moist. NECK: Trachea midline. No JVD. CARDIOVASCULAR: Regular rate and rhythm. Mecahnical ballon pump sounds RESPIRATORY: No accessory muscle use. b/l rales to auscultation. Breath sounds equal bilaterally. GASTROINTESTINAL: Abdomen soft, non-tender, nondistended. Hepatic and splenic margins not palpable. MUSCULOSKELETAL: Extremities without clubbing, cyanosis, or edema. No obvious deformities. cool to cold to touch feet NEUROLOGICAL: sedated, but arousable easily and moves around eyes closed not following commands PSYCHIATRIC:unable to assess Assessment and Plan - Plan Sepsis ? PICC line - removed Previous MSSA sepsis with presumed PVE of aortic valve prosthesis, on treatment - tx included vanco+ gent w/o rifampin DOubt UTI Resp insufficiency, CHF EF < 20 % sp WI troponin peaked @ 32 cont vanco cont zosyn resume gentamycin' add rifampin despite warfarin interactions INR can be closelty monitored during and after tx to ensure values stay within therapeutic targets however will dw olive knocker regarding interaction with amiodarone cont azithro monitor blood clx monitor urine clx obtain sputum clx pat RN
[2018-02-06] MEDS ORDERED: Gentamicin Consult Pharmacy 1 EACH OTHER SCH (14:00)
[2018-02-06] MEDS ORDERED: Pharmacy Ordered Lab Info OTHER ONE (14:45)
[2018-02-06 16:32] LABS: Calcium 7.7 mg/dL (8.5-10.1); Carbon Dioxide 25.1 meq/L (21.0-32.0); Potassium 3.6 meq/L (3.5-5.1)
[2018-02-06] MEDS: SODIUM CHLOR 0.9% IV.SIG SCH (18:18)
[2018-02-06] MEDS: GENTAMICIN IV.SIG SCH (18:18)
--- NOTE | 2018-02-06 18:44 | P.PNCC ---
Subjective Subjective Remarks/Hospital Course: 62-year-old male with past medical history of [place] mechanical aortic valve (09/21/12 Dr. Gonzalez), on chronic anticoagulation with warfarin, atrial fibrillation postop from AVR , COPD on 2.5 L home O2, stroke in 2015 resulting in left-sided sensory deficits and neuropathy, osteoporosis with chronic low back pain. He was recently admitted to [facility] from 01/23 through 01/31/18 for MSSA bacteremia. It is believed that the original source of infection was a wound on his right index finger when electric drill slipped and created a puncture wound. He was discharged with right upper extremity PICC line receiving cefazolin 2 g IV every 8 hours and gentamicin 210 mg IV daily. He states that home health administered antibiotics at 17:00 and shortly thereafter he began having chills and rigors and sought medical attention at [facility]. He had no rash. Upon arrival, he was hypotensive in the low 80s. He was given 2 L S bolus but remained hypotensive so was started on Levophed. He then developed heart rate in the 140s, reportedly atrial flutter so he was started on Amiodarone drip in [place] and converted to sinus rhythm. He was transfused 2 units PRBC due to Hgb 9.3. His stool was nonbloody nonmelena but was Hemoccult positive. He was given zosyn and vancomycin. Critical care medicine was then contacted and accepted patient for transfer to [facility]. He denies tenderness/redness/drainage at PICC site. Aside from mechanical aortic valve, he has no other hardware or indwelling devices. He denies headache, cough, dysuria. He has had a few loose stools at home, but stools have sometimes been formed. He denies chest pain, does report some SOB. EKG at [place] had marked inferolateral ischemic changes. Obtained EKG upon arrival to [facility] which is improved. SUBJ 02/05: Patient remains critical ill appearing, complaints of chest tightness but denies pain. Remains on 8 mcg/min of Levophed to maintain map about 65. However increasing shortness of breath. Chest x-ray shows increasing pulmonary edema. Troponin was 27.5 currently on IV heparin therapeutic. Cardiology consult is pending at this time. I will stop on maintenance fluids give 40 mg IV Lasix and IV albumin 25 g 1. Patient is very critical patient and updated at the bedside 02/06: to label maker last night for [facility] with LAD stent complicated by vasospasm of the LAD. IABP placed. patient emergently intubated for acute hypoxic respiratory failure secondary to cardiogenic shock and pulmonary edema. started on milrinone at 0.375 mcg/kg/min and levophed. bumex drip started. remains critically ill. Objective Vital Signs / I&O: Vital Signs 02/05/18 21:50 02/05/18 21:55 02/05/18 23:00 Temperature 37.7 C H 37.9 C H Pulse Rate 109 H 110 H Respiratory Rate 22 24 Blood Pressure 111/80 105/63 Pulse Oximetry 82 L 97 90 L 02/05/18 23:20 02/06/18 00:00 02/06/18 03:00 Temperature 37.0 C Pulse Rate 136 H Respiratory Rate 16 16 16 Blood Pressure 96/72 L Pulse Oximetry 95 96 02/06/18 04:00 02/06/18 04:02 02/06/18 04:42 Temperature 37.0 C Pulse Rate 136 H Respiratory Rate 16 Blood Pressure Pulse Oximetry 99 02/06/18 07:00 02/06/18 07:59 02/06/18 08:04 Temperature 36.4 C L Pulse Rate 86 89 Respiratory Rate 16 16 Blood Pressure 108/80 128/60 Pulse Oximetry 99 99 02/06/18 08:41 02/06/18 11:00 02/06/18 11:28 Temperature 36.9 C Pulse Rate 84 Respiratory Rate 16 16 Blood Pressure 93/54 L Pulse Oximetry 99 99 99 02/06/18 11:38 02/06/18 14:04 02/06/18 15:18 Temperature 38.6 C H Pulse Rate 84 Respiratory Rate 16 17 21 Blood Pressure 93/54 L Pulse Oximetry 99 98 Intake & Output 02/05/18 02/06/18 02/06/18 18:59 06:59 18:59 Intake Total 1542.5 / 1542.5 50 / 50 1953.95 / 195.95 Output Total 850 / 850 1700 / 1700 1900 / 1900 Balance 692.5 / 692.5 -1650 / -1650 53.95 / 53.95 Weight 64 kg Intake: IV 962.5 / 962.5 50 / 50 1953.95 / 1953.95 Cordarone Inj 450 MG In D5W Inj 250 / 250 29 / 29 241 ML @ 1 MG/MIN 33.33 mls/hr IV.CONT TITRATE PRN Rx#: [id number] Bumex Inj 25 mg In 100 ml @ 0.5 20 / 20 MG/HR 2 mls/hr IV.CONT .Q24H [facility] Rx#:[id number] Heparin/D5W 25,000 U/250 mL 25, 250 / 250 000 unit In 250 ml @ Per Protocol IV.CONT TITRATE PRN Rx #:[id number] Primacor Inj 20 MG In NS Inj 80 66 / 66 ML @ Per Protocol IV.CONT .Q0M [facility] Rx#:[id number] Flexbumin 25% Inj 100 ML @ 60 100 / 100 mls/hr IV.SIG ONCE ONE Rx#: [id number] Azithromycin Inj 500 MG In NS 250 / 250 Inj 250 ML @ 250 mls/hr IV.SIG Q24H [facility] Rx#:[id number] Levophed-Dextrose 4 mg/250 ml 250 / 250 360 / 360 Drip 4 mg In 250 ml @ 2 MCG/MIN 7.5 mls/hr IV.SIG TITRATE PRN Rx#:[id number] Zosyn 3.375 GM Premix 50 ML @ 100 / 100 50 / 50 100 / 100 100 mls/hr IV.SIG Q6H [facility] Rx#: [id number] Vancomycin Inj 1,250 MG In NS 262.5 / 262.5 265.2 / 265.2 Inj 250 ML @ 250 mls/hr IV.SIG Q12H [facility] Rx#:[id number] fentaNYL 10 mcg/mL Premix Drip 246 / 246 2,500 mcg In 250 ml @ 50 MCG/HR 5 mls/hr IV.SIG TITRATE PRN Rx #:[id number] Oral 580 / 580 Output: Stool 0 / 0 Urine Amount (Catheter) 850 / 850 1700 / 1700 1700 / 1700 Indwelling Temp Sensing 850 / 850 1700 / 1700 1700 / 1700 Catheter Gastric Drainage 200 / 200 Oral 200 / 200 Other: Date of Last Bowel Movement 02/04/18 02/04/18 # Bowel Movements 0 Result Diagrams: 02/06/18 03:30 02/06/18 16:01 Objective Remarks: GENERAL: Ill-appearing thin male with temporal wasting, lying in bed, intubated, sedated. SKIN: cool and poorly perfused. HEAD: Atraumatic. Normocephalic. EYES: Pupils equal and round, 2 mm and reactive. No scleral icterus. No injection or drainage. ENT: No nasal bleeding or discharge. Mucous membranes pink and moist. NECK: Trachea midline. +ve JVD. left SC TLC clean dry and dressing intact. CARDIOVASCULAR: Regular rate and rhythm, currently sinus rhythm on the monitor with rate in the 80s. No murmurs rubs or gallops. on milrinone and dobutamine. IABP 1:[address] augmented mean 91 mmHg. RESPIRATORY: intubated. fio2 50%. equal chest rise. GASTROINTESTINAL: Abdomen soft, non-tender, nondistended. no guarding. VASC: Right radial art line in place with distal perfusion intact. right femoral IABP in place, site c/d/i. no evidence of hematoma. distal pulses dopplerable. MUSCULOSKELETAL: Extremities without clubbing, cyanosis, or edema. No obvious deformities. NEUROLOGICAL: RASS -2. moves all extremities. no focal deficits. Assessment and Plan - Problem List (1) Septic shock Code(s): A41.9 - Sepsis, unspecified organism; R65.21 - Severe sepsis with septic shock Status: Acute (2) Staph aureus infection Code(s): A49.01 - Methicillin susceptible Staphylococcus aureus infection, unspecified site Status: Acute (3) NSTEMI (non-ST elevated myocardial infarction) Code(s): I21.4 - Non-ST elevation (NSTEMI) myocardial infarction Status: Acute (4) Status post mechanical aortic valve replacement Code(s): Z95.2 - Presence of prosthetic heart valve Status: Chronic (5) Chronic anticoagulation Code(s): Z79.01 - skilled nursing (current) use of anticoagulants Status: Chronic (6) Chronic back pain Code(s): M54.9 - Dorsalgia, unspecified; G89.29 - Other chronic pain Status: Chronic (7) H/O aortic valve replacement Code(s): Z95.2 - Presence of prosthetic heart valve Status: Acute (8) Physical deconditioning Code(s): R53.81 - Other malaise Status: Chronic (9) BPH (benign prostatic hyperplasia) Code(s): N40.0 - Benign prostatic hyperplasia without lower urinary tract symptoms Status: Chronic (10) COPD with hypoxia Code(s): J44.9 - Chronic obstructive pulmonary disease, unspecified; R09.02 - Hypoxemia Status: Chronic - Assessment and Plan Plan: NEURO: History of stroke in 2015 Neuropathy left upper and lower extremity Chronic low back pain Osteopenia Lortab 10/325 every 4 hours as needed for pain Morphine as needed for breakthrough pain Continue Lyrica 150 mg p.o. twice daily Cymbalta 90 mg p.o. daily goal RASS -2. RESP: Acute severe Pulmonary edema Acute hypoxic respiratory failure COPD on 2.5 L home O2 Prior tobacco abuse Albuterol every 2 hours as needed for wheezing wean fio2 for goal spo2 > 90% bumex drip vent bundle, hob elevated. no SBT while in shock. CV: NSTEMI Cardiogenic shock Septic shock Pulmonary edema [place] mechanical aortic valve (09/21/12 Dr. Gonzalez) s/p Tricuspid annuloplasty Continue Levophed to maintain map greater than 65 bumex drip EKG from emergency department demonstrated atrial flutter with rate in the 130s with ST depression in II/III/ F, V4 through V6 Troponin up trending Continue aspirin, heparin drip. PTT therapeutic Not a candidate for beta-rasheed or ARETHA inhibitor due to hypotension Will continue amiodarone for now for rhythm maintenance as AF-RVR contributing to ischemia, further management per cardiology. Obtain 2D echo, Cardiology consult CAMERON 01/23/18no evidence of vegetation or thrombus. Normal functioning aortic mechanical valve with trivial aortic insufficiency. Tricuspid annuloplasty. Mild to moderate LV generalized hypokinesis Had recent LDLs and cholesterol checked in January which were very low, still indicated to be on statins. Start Lipitor 40 mg nightly His day light relief operator is Romana Bartlett in [place]. Patient denies any recent ischemic workup [facility] 02/06 with PCI to LAD complicated by cardiogenic shock requiring IABP placement continue milrinone at 0.375 mcg/kg/min trend lactates:downtrending continue levophed watch uop closely trend CVP GI: NPO until clinically more improved. still in shock. Protonix for stress ulcer prophylactic Had normal EGD on 10/21/17 FEN/RENAL: BPH Acute kidney injury roberson close monitoring of uop SHARON likely secondary to cardiogenic shock Renal ultrasound to evaluate for evidence of obstruction -did not show any obstruction Hold tamsulosin for now Continue multivitamin. ID: MSSA bacteremia ?UTI PICC removed Has been on Ancef but was given Zosyn in the emergency department. Continue Zosyn and vancomycin, continue gentamicin for synergy Infectious disease consult and will defer further antibiotic management to them. Follow-up urine and blood cultures. The 2 sets of blood cultures that were obtained in [place] were reportedly drawn from the PICC line. Two peripheral blood cultures were drawn at [facility]. . HEME: Chronic anemia Iron deficiency Continue ferrous sulfate 325 mill grams p.o. daily Received 2 units packed red cells in [place] ER due to anemia and shock. Hgb increased from 9.3 to 12. He does not appear to be actively bleeding, will monitor hgb and consult GI if showing signs of blood loss. ENDO: Euglycemic. PROPH: Heparin drip. Protonix for stress ulcer prophylaxis ACCESS: Right radial art line placed in the emergency department 02/04 #3. Left IJ central line placed 02/05/18 #2. Removed right upper extremity PICC. FULL CODE Patient is critically ill with fever, septic shock, NSTEMI, cardiogenic shock all life threatening without treatment. CCT 39 minutes exclusive of separately billable procedures.
[2018-02-06] MEDS: Azithromycin Inj 500 MG in Sodium Chlor 0.9% Inj 250 ML IV.SIG SCH (20:42)
[2018-02-06] MEDS: Milrinone Inj 20 MG in Sodium Chlor 0.9% Inj 80 ML IV.CONT SCH (21:03)
--- NOTE | 2018-02-06 21:25 | P.PNCA ---
Subjective Interval history: patient emergently intubated 02/05/18 for acute hypoxic respiratory failure secondary to cardiogenic shock and pulmonary edema. started on milrinone at 0.375 mcg/kg/min and Levophed. Bumex drip started. remains critically ill. Physical Exam Vital signs: Vital Signs 02/05/18 21:50 02/05/18 21:55 02/05/18 23:00 Temperature 100 F H 100.2 F H Pulse Rate 109 H 110 H Respiratory Rate 22 24 Blood Pressure 111/80 105/63 Pulse Oximetry 82 L 97 90 L 02/05/18 23:20 02/06/18 00:00 02/06/18 03:00 Temperature 98.6 F Pulse Rate 136 H Respiratory Rate 16 16 16 Blood Pressure 96/72 L Pulse Oximetry 95 96 02/06/18 04:00 02/06/18 04:02 02/06/18 04:42 Temperature 98.6 F Pulse Rate 136 H Respiratory Rate 16 Blood Pressure Pulse Oximetry 99 02/06/18 07:00 02/06/18 07:59 02/06/18 08:04 Temperature 97.5 F L Pulse Rate 86 89 Respiratory Rate 16 16 Blood Pressure 108/80 128/60 Pulse Oximetry 99 99 02/06/18 08:41 02/06/18 11:00 02/06/18 11:28 Temperature 98.4 F Pulse Rate 84 Respiratory Rate 16 16 Blood Pressure 93/54 L Pulse Oximetry 99 99 99 02/06/18 11:38 02/06/18 14:04 02/06/18 15:18 Temperature 101.4 F H Pulse Rate 84 Respiratory Rate 16 17 21 Blood Pressure 93/54 L Pulse Oximetry 99 98 Intake & Output 02/06/18 02/06/18 02/07/18 06:59 18:59 06:59 Intake Total 50 / 50 2305.575 / 2305.575 284 / 284 Output Total 1700 / 1700 1900 / 1900 Balance -1650 / -1650 405.575 / 405.575 284 / 284 Weight 64 kg Intake: IV 50 / 50 2305.575 / 2305.575 284 / 284 Cordarone Inj 450 MG In D5W Inj 241 ML @ 1 MG/MIN 33.33 mls/hr IV.CONT TITRATE PRN Rx#: [id number] Bumex Inj 25 mg In 100 ml @ 0.5 20 / 20 MG/HR 2 mls/hr IV.CONT .Q24H [facility] Rx#:[id number] Heparin/D5W 25,000 U/250 mL 25, 250 / 250 000 unit In 250 ml @ Per Protocol IV.CONT TITRATE PRN Rx #:[id number] Primacor Inj 20 MG In NS Inj 80 66 / 66 34 / 34 ML @ Per Protocol IV.CONT .Q0M [facility] Rx#:[id number] Azithromycin Inj 500 MG In NS 250 / 250 Inj 250 ML @ 250 mls/hr IV.SIG Q24H [facility] Rx#:[id number] Gentamicin Inj 65 MG In NS Inj 101.625 / 101.625 100 ML @ 203 mls/hr IV.SIG Q12H [facility] Rx#:[id number] Levophed-Dextrose 4 mg/250 ml 360 / 360 250 / 250 Drip 4 mg In 250 ml @ 2 MCG/MIN 7.5 mls/hr IV.SIG TITRATE PRN Rx#:[id number] Zosyn 3.375 GM Premix 50 ML @ 50 / 50 100 / 100 100 mls/hr IV.SIG Q6H [facility] Rx#: [id number] Vancomycin Inj 1,250 MG In NS 265.2 / 265.2 Inj 250 ML @ 250 mls/hr IV.SIG Q12H [facility] Rx#:[id number] fentaNYL 10 mcg/mL Premix Drip 496 / 496 2,500 mcg In 250 ml @ 50 MCG/HR 5 mls/hr IV.SIG TITRATE PRN Rx #:[id number] Output: Urine Amount (Catheter) 1700 / 1700 1700 / 1700 Indwelling Temp Sensing 1700 / 1700 1700 / 1700 Catheter Gastric Drainage 200 / 200 Oral 200 / 200 Other: Date of Last Bowel Movement 02/04/18 # Bowel Movements 0 - Constitutional Comments: Sedated on ventilator - Routine Cardiovascular Exam Present: tachycardia, irregular rhythm - Routine Abdominal Exam Present: soft - Routine Extremities Exam Absent: edema - Routine Neurological Exam sedated - Urinary Catheter Management Indwelling Temp Sensing Catheter Cath placed during this visit: yes Reason for continuing: Hourly intake/output Insertion date: 02/05/18 Insertion time: 17:35 Assessment and Plan - Assessment (1) Cardiogenic shock Code(s): R57.0 - Cardiogenic shock Status: Acute (2) Bacteremia Code(s): R78.81 - Bacteremia Status: Acute (3) NSTEMI (non-ST elevated myocardial infarction) Code(s): I21.4 - Non-ST elevation (NSTEMI) myocardial infarction Status: Acute (4) Status post mechanical aortic valve replacement Code(s): Z95.2 - Presence of prosthetic heart valve Status: Chronic (5) COPD with hypoxia Code(s): J44.9 - Chronic obstructive pulmonary disease, unspecified; R09.02 - Hypoxemia Status: Chronic - Plan 1. Cardiogenic shock, LVEF 20% by 02/05/18 Echo. IABP placed 02/05/18, on Milrinone drip. Bumix drip. 2. CAD. NSTEMI, Proximal LAD and large diagonal 90% stenosis, stented with 2 BMS stent 02/05/18, mid LAD vasospasm post PCI 3. Respiratory failure due to pulmonary edema, intubated 02/05/18 4. Afib RVR, ON IV amiodarone. will add Digoxin. 5. Anemia, stable after transfusion 7. Sepsis, on Abx 8. hx of AVR on AC. CAMERON last week showed normal prosthesis function, trace AR. IV Heparin. Family was updated of his critical condition.
--- NOTE | 2018-02-06 22:29 | XR ---
EXAM DATE: 02/06/2018 10:11 PM EDT AGE/SEX: 62 years / Male INDICATIONS: Septic Shock. Ballonpump placement. CLINICAL DATA: This is the patient's subsequent encounter. Patient reports that signs and symptoms h ave been present for 4 - 6 days and indicates a pain score of Nonresponsive. MEDICAL/SURGICAL HISTORY: . Chronic obstructive pulmonary disease. Sepsis CABG. COMPARISON: C, CHEST 1V SINGLE AP, 02/06/2018. . FINDINGS: There is a small metallic density projecting over the proximal descending thoracic aorta/aortic arch region thought to represent the aortic balloon pump marker. The patient is status post sternotomy. Th ere is a prosthetic aortic valve present. The ET tube tip is approximately 3 cm from the renny. The NG tube tip is directed into the stomach. There is a left internal jugular central line in place with the tip overlying the superior cavoatrial junction. There is diffuse mixed interstitial and alveolar consolidation. There is silhouetting of the hemidiaphragms. CONCLUSION: 1. Tip of balloon pump projecting over the junction of the aortic arch and the descending thoracic a regina. This is in good position. 2. Diffuse mixed interstitial and alveolar consolidation likely related to edema. 3. Suspected bilateral effusions. Electronically signed by: Regan Chang MD 02/06/2018 10:28 PM EDT
[2018-02-06 23:17] LABS: Carbon Dioxide 22.8 meq/L (21.0-32.0); Potassium 3.8 meq/L (3.5-5.1)
[2018-02-06] MEDS: Midazolam 50 MG/50 ML Inj 50 MG/50 ML BAG IV.CONT PRN (23:19)
--- NOTE | 2018-02-07 00:26 | ECG ---
Date Performed: 02/05/2018 Time Performed: 14:31:30 PTAGE: 62 years EKG: Sinus tachycardia with PVC(s). Indeterminate axis Possible anterior infarct - age undetermi bert Inferior/lateral ST-T changes may be due to myocardial ischemia Abnormal ECG PREVIOUS TRACING : 02/05/2018 07.15 Since the previous tracing, no significant change noted DOCTOR: Manohar Johnson Interpretating Date/Time 02/07/2018 00:25:58
--- NOTE | 2018-02-07 00:33 | ECG ---
Date Performed: 02/05/2018 Time Performed: 07:15:40 PTAGE: 62 years EKG: Sinus tachycardia. Indeterminate axis Possible anteroseptal infarct - age undetermined Infe rior T wave changes are nonspecific Abnormal ECG Since the PREVIOUS TRACING , no significant change noted DOCTOR: Manohar Johnson Interpretating Date/Time 02/07/2018 00:31:35
[2018-02-07] MEDS: Oral Hygiene Kit OROPHARYNG SCH ×4 (01:27→15:49)
[2018-02-07 04:15] LABS: Baso # (Auto) 0.1 th/mm3 (0.0-0.2); Baso % (Auto) 0.8 % (0.0-2.0); Eos # (Auto) 0.1 th/mm3 (0.0-0.4); Eos % (Auto) 0.6 % (0.0-4.0); Hematocrit 31.2 % (39.0-51.0); Hemoglobin 10.4 gm/dL (13.0-17.0); Lymph # (Auto) 0.6 th/mm3 (1.0-4.8); Lymph % (Auto) 5.5 % (9.0-44.0); Mean Corpuscular HGB Conc 33.3 % (32.0-36.0); Mean Corpuscular Volume 90.2 fL (80.0-100.0); Mean Platelet Volume 8.3 fL (7.0-11.0); Mono # (Auto) 0.9 th/mm3 (0.0-0.9); Mono % (Auto) 8.3 % (0.0-8.0); Neut # (Auto) 9.1 th/mm3 (1.8-7.7); Neut % (Auto) 84.8 % (16.0-70.0); Platelet Count 378 th/mm3 (150-450); Red Blood Count 3.46 mil/mm3 (4.50-5.90); Red Cell Distribution Width 17.2 % (11.6-17.2); White Blood Count 10.7 th/mm3 (4.0-11.0)
[2018-02-07 04:39] LABS: Calcium 7.9 mg/dL (8.5-10.1); Carbon Dioxide 27.4 meq/L (21.0-32.0); Potassium 3.3 meq/L (3.5-5.1)
[2018-02-07 04:40] LABS: Activated Partial Thrombo Time 42.6 sec (24.3-30.1); INR 1.8 Ratio; Prothrombin Time 18.7 sec (9.8-11.6); Vancomycin,Random 27.2 Comment
[2018-02-07] MEDS: Piperacil/Tazo 3.375 GM Premix 50 ML IV.SIG SCH ×4 (04:52→20:11)
[2018-02-07] MEDS: Heparin Drip 25,000 UNIT/250 ML BAG IV.CONT PRN (04:59)
[2018-02-07] MEDS: SODIUM CHLOR 0.9% IV.SIG SCH ×2 (05:50→17:25)
[2018-02-07] MEDS: GENTAMICIN IV.SIG SCH ×2 (05:50→17:25)
[2018-02-07] MEDS: Chlorhexidine Gluconate 2% 1 Pack (2 Cloths) TOPICAL SCH (05:51)
[2018-02-07] MEDS: fentaNYL 10 mcg/mL Premix Drip 2,500 MCG/250 ML BAG IV.SIG PRN ×2 (06:42→18:40)
[2018-02-07] MEDS: Potassium Chlor 20 mEq Premix 20 MEQ/100 ML PIGGYBACK IV.SIG PRN ×2 (07:12→11:58)
[2018-02-07] MEDS: Chlorhexidine 0.12% Oral Kit 15 ML UDC OROPHARYNG SCH ×2 (07:17→20:13)
[2018-02-07] MEDS ORDERED: Heparin 10,000 UNITS/10 ML Vial (for IV use) IV.PUSH PRN ×2 (08:23→08:25)
[2018-02-07] MEDS: Pregabalin 75 MG Capsule PO SCH ×2 (08:25→20:11)
[2018-02-07] MEDS: Ferrous Sulfate 325 MG Tablet PO SCH (08:25)
[2018-02-07] MEDS: Senna/Docusate Sodium 8.6/50 MG Tablet PO SCH ×2 (08:26→20:12)
[2018-02-07] MEDS: Digoxin Inj 500 MCG/2 ML Ampul IV.PUSH SCH (08:26)
[2018-02-07 11:02] LABS: Carbon Dioxide 29.1 meq/L (21.0-32.0); Potassium 3.3 meq/L (3.5-5.1)
[2018-02-07 11:03] LABS: Calcium 8.2 mg/dL (8.5-10.1)
--- NOTE | 2018-02-07 12:29 | P.PNID ---
Subjective Remarks: events noted remains intubated and on baloone pump no fever + good UOP secretions are moderate Antibiotics: azithro zosyn vanco gent Allergies/Adverse Reactions: Allergies No Known Allergies Allergy (Verified 02/04/18 18:10) Objective Vital Signs 02/06/18 14:04 02/06/18 15:18 02/06/18 19:00 Temperature 101.4 F H 100.5 F H Pulse Rate 84 120 H Respiratory Rate 17 21 19 Blood Pressure 93/54 L 95/59 L Pulse Oximetry 99 98 95 02/06/18 20:00 02/06/18 21:15 02/06/18 22:35 Temperature Pulse Rate Respiratory Rate 17 16 Blood Pressure Pulse Oximetry 95 98 02/06/18 23:00 02/07/18 01:22 02/07/18 03:00 Temperature 99.6 F 99.5 F Pulse Rate 93 H 84 Respiratory Rate 16 16 16 Blood Pressure 114/48 L 114/57 L Pulse Oximetry 97 99 99 02/07/18 03:10 02/07/18 07:26 02/07/18 07:32 Temperature 98.8 F Pulse Rate 71 71 Respiratory Rate 16 16 Blood Pressure 131/55 L Pulse Oximetry 99 98 02/07/18 07:33 02/07/18 08:08 02/07/18 08:11 Temperature Pulse Rate Respiratory Rate 16 16 Blood Pressure Pulse Oximetry 98 98 02/07/18 11:01 02/07/18 11:03 Temperature 99.3 F Pulse Rate 77 77 Respiratory Rate 16 Blood Pressure 114/38 L Pulse Oximetry 97 Intake & Output 02/06/18 02/07/18 02/07/18 18:59 06:59 18:59 Intake Total 2305.575 / 2305.575 1184 / 1184 251.625 / 251.625 Output Total 1900 / 1900 3815 / 3815 Balance 405.575 / 405.575 -2631 / -2631 251.625 / 251.625 Weight 60.5 kg Intake: IV 2305.575 / 2305.575 1134 / 1134 251.625 / 251.625 Cordarone Inj 450 MG In D5W Inj 241 ML @ 1 MG/MIN 33.33 mls/hr IV.CONT TITRATE PRN Rx#: [id number] Bumex Inj 25 mg In 100 ml @ 0.5 20 / 20 MG/HR 2 mls/hr IV.CONT .Q24H [facility] Rx#:[id number] Heparin/D5W 25,000 U/250 mL 25, 250 / 250 000 unit In 250 ml @ Per Protocol IV.CONT TITRATE PRN Rx #:[id number] Primacor Inj 20 MG In NS Inj 80 66 / 66 34 / 34 ML @ Per Protocol IV.CONT .Q0M [facility] Rx#:[id number] Azithromycin Inj 500 MG In NS 250 / 250 Inj 250 ML @ 250 mls/hr IV.SIG Q24H [facility] Rx#:[id number] Gentamicin Inj 65 MG In NS Inj 101.625 / 101.625 101.625 / 101.625 100 ML @ 203 mls/hr IV.SIG Q12H [facility] Rx#:[id number] Levophed-Dextrose 4 mg/250 ml 360 / 360 750 / 750 Drip 4 mg In 250 ml @ 2 MCG/MIN 7.5 mls/hr IV.SIG TITRATE PRN Rx#:[id number] Zosyn 3.375 GM Premix 50 ML @ 100 / 100 100 / 100 50 / 50 100 mls/hr IV.SIG Q6H [facility] Rx#: [id number] KCl 20 mEq Premix Inj 20 meq In 100 / 100 100 ml @ 50 mls/hr IV.SIG Q2H [facility] Rx#:[id number] Vancomycin Inj 1,250 MG In NS 265.2 / 265.2 Inj 250 ML @ 250 mls/hr IV.SIG Q12H [facility] Rx#:[id number] fentaNYL 10 mcg/mL Premix Drip 496 / 496 250 / 250 2,500 mcg In 250 ml @ 50 MCG/HR 5 mls/hr IV.SIG TITRATE PRN Rx #:[id number] Water Bolus Amount 50 / 50 Output: Urine Amount (Catheter) 1700 / 1700 3765 / 3765 Indwelling Temp Sensing 1700 / 1700 3765 / 3765 Catheter Gastric Drainage 200 / 200 50 / 50 Oral 200 / 200 50 / 50 Other: Date of Last Bowel Movement 02/04/18 02/04/18 # Bowel Movements 0 02/05/18 00:42 Blood - Peripheral Aerobic Blood Culture - Preliminary No growth in 2 days 02/05/18 00:42 Blood - Peripheral Anaerobic Blood Culture - Preliminary No growth in 2 days 02/05/18 00:12 Blood - Peripheral Aerobic Blood Culture - Preliminary No growth in 2 days 02/05/18 00:12 Blood - Peripheral Anaerobic Blood Culture - Preliminary No growth in 2 days 02/06/18 14:00 Sputum - Endotracheal Gram Stain - Final 02/06/18 14:00 Sputum - Endotracheal Sputum Culture - Pending Lab - Hematology Results 02/05/18 02/06/18 02/07/18 22:45 03:30 03:55 WBC 13.4 H 13.0 H 10.7 RBC 3.66 L 3.67 L 3.46 L Hgb 11.2 L 11.1 L 10.4 L Hct 32.5 L 33.3 L 31.2 L MCV 88.9 90.6 90.2 MCH 30.7 30.2 30.0 MCHC 34.5 33.3 33.3 RDW 16.3 16.7 17.2 Plt Count 419 439 378 MPV 8.7 8.4 8.3 Neut % (Auto) 83.9 H 84.8 H Lymph % (Auto) 7.4 L 5.5 L [place] % (Auto) 8.1 H 8.3 H Eos % (Auto) 0.0 0.6 Baso % (Auto) 0.6 0.8 Neut # (Auto) 10.9 H 9.1 H Lymph # (Auto) 1.0 0.6 L [place] # (Auto) 1.0 H 0.9 Eos # (Auto) 0.0 0.1 Baso # (Auto) 0.1 0.1 WBC Differential . . Differential Comment Auto diff final Auto diff final Lab - Chemistry Results 02/05/18 02/05/18 02/05/18 13:32 13:32 16:30 Sodium 135 L Potassium 4.3 Chloride 105 Carbon Dioxide 16.4 L Anion Gap 14 BUN 17 Creatinine 0.95 Estimated GFR 80 L POC Glucose Random Glucose 181 H Lactic Acid 3.7 H Calcium 8.0 L Magnesium Total Bilirubin 1.0 AST 475 H ALT 107 H Alkaline Phosphatase 74 Troponin I Cancelled 32.90 H* Total Protein 7.0 Albumin 2.4 L 02/05/18 02/05/18 02/06/18 22:45 22:45 01:18 Sodium 136 Potassium 3.8 Chloride 102 Carbon Dioxide 21.5 Anion Gap 13 BUN 19 H Creatinine 1.21 Estimated GFR 60 L POC Glucose 183 H Random Glucose 153 H Lactic Acid 2.8 H Calcium 7.8 L Magnesium Total Bilirubin AST ALT Alkaline Phosphatase Troponin I Total Protein Albumin 02/06/18 02/06/18 02/06/18 02:10 03:30 03:30 Sodium 138 Potassium 3.9 Chloride 104 Carbon Dioxide 24.7 Anion Gap 9 BUN 23 H Creatinine 1.41 H Estimated GFR 51 L POC Glucose Random Glucose 193 H Lactic Acid 2.8 H 2.2 H Calcium 7.8 L Magnesium 2.0 Total Bilirubin AST ALT Alkaline Phosphatase Troponin I Total Protein Albumin 02/06/18 02/06/18 02/06/18 09:44 09:44 16:01 Sodium 139 140 Potassium 3.7 3.6 Chloride 106 106 Carbon Dioxide 25.5 25.1 Anion Gap 8 9 BUN 23 H 24 H Creatinine 1.36 H 1.46 H Estimated GFR 53 L 49 L POC Glucose Random Glucose 144 H 133 H Lactic Acid 1.3 Calcium 7.8 L 7.7 L Magnesium Total Bilirubin AST ALT Alkaline Phosphatase Troponin I Total Protein Albumin 02/06/18 02/06/18 02/06/18 16:01 22:15 22:15 Sodium 139 Potassium 3.8 Chloride 105 Carbon Dioxide 22.8 Anion Gap 11 BUN 24 H Creatinine 1.64 H Estimated GFR 43 L POC Glucose Random Glucose 185 H Lactic Acid 1.3 3.6 H Calcium 8.0 L Magnesium Total Bilirubin AST ALT Alkaline Phosphatase Troponin I Total Protein Albumin 02/07/18 02/07/18 02/07/18 03:55 03:55 10:00 Sodium 141 139 Potassium 3.3 L 3.3 L Chloride 106 102 Carbon Dioxide 27.4 29.1 Anion Gap 8 8 BUN 22 H 20 H Creatinine 1.46 H 1.40 H Estimated GFR 49 L 51 L POC Glucose Random Glucose 156 H 135 H Lactic Acid 1.0 Calcium 7.9 L 8.2 L Magnesium Total Bilirubin AST ALT Alkaline Phosphatase Troponin I Total Protein Albumin 02/07/18 10:00 Sodium Potassium Chloride Carbon Dioxide Anion Gap BUN Creatinine Estimated GFR POC Glucose Random Glucose Lactic Acid 1.1 Calcium Magnesium Total Bilirubin AST ALT Alkaline Phosphatase Troponin I Total Protein Albumin Imaging: ITS Impressions Abdomen/Bladder Ultrasound 02/05/18 00:00 CONCLUSION: 1. No evidence of hydronephrosis. 2. The echogenicity of the kidneys is equal to that of the liver which can be seen with medical renal disease. 3. Simple cyst in right kidney. 4. Suboptimal visualization of the left kidney. 5. Small amount of free fluid along the spleen. This could represent an adjacent pleural effusion. Chest X-Ray 02/06/18 21:40 CONCLUSION: 1. Tip of balloon pump projecting over the junction of the aortic arch and the descending thoracic aorta. This is in good position. 2. Diffuse mixed interstitial and alveolar consolidation likely related to edema. 3. Suspected bilateral effusions. Physical Exam: GENERAL: sedated intubasted on vent and baloon pump SKIN: Warm and dry. HEAD: Atraumatic. Normocephalic. EYES: Pupils equal and round. No scleral icterus. No injection or drainage. ENT: No nasal bleeding or discharge. Mucous membranes pink and moist. NECK: Trachea midline. No JVD. CARDIOVASCULAR: Regular rate and rhythm. Mecahnical ballon pump sounds + diastolic blowing murmur on aortic valve point RESPIRATORY: No accessory muscle use. b/l rales to auscultation. Breath sounds equal bilaterally. GASTROINTESTINAL: Abdomen soft, non-tender, nondistended. Hepatic and splenic margins not palpable. : roberson in place with good amount of urine MUSCULOSKELETAL: Extremities without clubbing, cyanosis, or edema. No obvious deformities. cool to cold to touch feet NEUROLOGICAL: sedated, but arousable easily and moves around eyes closed not following commands PSYCHIATRIC:unable to assess Assessment and Plan - Plan Sepsis ? PICC line - removed Previous MSSA sepsis with presumed PVE of aortic valve prosthesis, on treatment - tx included vanco+ gent w/o rifampin DOubt UTI Resp insufficiency, CHF EF < 20 % sp DC troponin peaked @ 32 change vanco to cefaZOline as a part of PVE Rx dc vanco cont zosyn cont gentamycin' add rifampin despite warfarin interactions INR can be closelty monitored during and after tx to ensure values stay within therapeutic targets however will dw front desk monitor regarding interaction with amiodarone cont azithro for now monitor blood clx monitor urine clx obtain sputum clx will dc zosyn if cultures remain negative pat Spears
--- NOTE | 2018-02-07 12:35 | P.PNCC ---
Subjective Subjective Remarks/Hospital Course: 62-year-old male with past medical history of [place] mechanical aortic valve (09/21/12 Dr. Gonzalez), on chronic anticoagulation with warfarin, atrial fibrillation postop from AVR , COPD on 2.5 L home O2, stroke in 2015 resulting in left-sided sensory deficits and neuropathy, osteoporosis with chronic low back pain. He was recently admitted to [facility] from 01/23 through 01/31/18 for MSSA bacteremia. It is believed that the original source of infection was a wound on his right index finger when electric drill slipped and created a puncture wound. He was discharged with right upper extremity PICC line receiving cefazolin 2 g IV every 8 hours and gentamicin 210 mg IV daily. He states that home health administered antibiotics at 17:00 and shortly thereafter he began having chills and rigors and sought medical attention at [facility]. He had no rash. Upon arrival, he was hypotensive in the low 80s. He was given 2 L S bolus but remained hypotensive so was started on Levophed. He then developed heart rate in the 140s, reportedly atrial flutter so he was started on Amiodarone drip in [place] and converted to sinus rhythm. He was transfused 2 units PRBC due to Hgb 9.3. His stool was nonbloody nonmelena but was Hemoccult positive. He was given zosyn and vancomycin. Critical care medicine was then contacted and accepted patient for transfer to [facility]. He denies tenderness/redness/drainage at PICC site. Aside from mechanical aortic valve, he has no other hardware or indwelling devices. He denies headache, cough, dysuria. He has had a few loose stools at home, but stools have sometimes been formed. He denies chest pain, does report some SOB. EKG at [place] had marked inferolateral ischemic changes. Obtained EKG upon arrival to [facility] which is improved. SUBJ 02/05: Patient remains critical ill appearing, complaints of chest tightness but denies pain. Remains on 8 mcg/min of Levophed to maintain map about 65. However increasing shortness of breath. Chest x-ray shows increasing pulmonary edema. Troponin was 27.5 currently on IV heparin therapeutic. Cardiology consult is pending at this time. I will stop on maintenance fluids give 40 mg IV Lasix and IV albumin 25 g 1. Patient is very critical patient and updated at the bedside 02/06: to clinical laboratory scientist last night for [facility] with LAD stent complicated by vasospasm of the LAD. IABP placed. patient emergently intubated for acute hypoxic respiratory failure secondary to cardiogenic shock and pulmonary edema. started on milrinone at 0.375 mcg/kg/min and levophed. bumex drip started. remains critically ill. 02/07: Remains critically ill remains on Levophed and milrinone. Currently diuresing well with Bumex drip. IABP in place management per cardiology-good waveform and augmentation. Chest x-ray shows adequate positioning of IABP, diffuse bilateral pulmonary edema Objective Vital Signs / I&O: Vital Signs 02/06/18 14:04 02/06/18 15:18 02/06/18 19:00 Temperature 101.4 F H 100.5 F H Pulse Rate 84 120 H Respiratory Rate 17 21 19 Blood Pressure 93/54 L 95/59 L Pulse Oximetry 99 98 95 02/06/18 20:00 02/06/18 21:15 02/06/18 22:35 Temperature Pulse Rate Respiratory Rate 17 16 Blood Pressure Pulse Oximetry 95 98 02/06/18 23:00 02/07/18 01:22 02/07/18 03:00 Temperature 99.6 F 99.5 F Pulse Rate 93 H 84 Respiratory Rate 16 16 16 Blood Pressure 114/48 L 114/57 L Pulse Oximetry 97 99 99 02/07/18 03:10 02/07/18 07:26 02/07/18 07:32 Temperature 98.8 F Pulse Rate 71 71 Respiratory Rate 16 16 Blood Pressure 131/55 L Pulse Oximetry 99 98 02/07/18 07:33 02/07/18 08:08 02/07/18 08:11 Temperature Pulse Rate Respiratory Rate 16 16 Blood Pressure Pulse Oximetry 98 98 02/07/18 11:01 02/07/18 11:03 Temperature 99.3 F Pulse Rate 77 77 Respiratory Rate 16 Blood Pressure 114/38 L Pulse Oximetry 97 Intake & Output 02/06/18 02/07/18 02/07/18 18:59 06:59 18:59 Intake Total 2305.575 / 2305.575 1184 / 1184 251.625 / 251.625 Output Total 1900 / 1900 3815 / 3815 Balance 405.575 / 405.575 -2631 / -2631 251.625 / 251.625 Weight 60.5 kg Intake: IV 2305.575 / 2305.575 1134 / 1134 251.625 / 251.625 Cordarone Inj 450 MG In D5W Inj / 241 ML @ 1 MG/MIN 33.33 mls/hr IV.CONT TITRATE PRN Rx#: [id number] Bumex Inj 25 mg In 100 ml @ 0.5 20 / 20 MG/HR 2 mls/hr IV.CONT .Q24H [facility] Rx#:[id number] Heparin/D5W 25,000 U/250 mL 25, 250 / 250 000 unit In 250 ml @ Per Protocol IV.CONT TITRATE PRN Rx #:[id number] Primacor Inj 20 MG In NS Inj 80 66 / 66 34 / 34 ML @ Per Protocol IV.CONT .Q0M [facility] Rx#:[id number] Azithromycin Inj 500 MG In NS 250 / 250 Inj 250 ML @ 250 mls/hr IV.SIG Q24H [facility] Rx#:[id number] Gentamicin Inj 65 MG In NS Inj 101.625 / 101.625 101.625 / 101.625 100 ML @ 203 mls/hr IV.SIG Q12H [facility] Rx#:[id number] Levophed-Dextrose 4 mg/250 ml 360 / 360 750 / 750 Drip 4 mg In 250 ml @ 2 MCG/MIN 7.5 mls/hr IV.SIG TITRATE PRN Rx#:[id number] Zosyn 3.375 GM Premix 50 ML @ 100 / 100 100 / 100 50 / 50 100 mls/hr IV.SIG Q6H [facility] Rx#: [id number] KCl 20 mEq Premix Inj 20 meq In 100 / 100 100 ml @ 50 mls/hr IV.SIG Q2H [facility] Rx#:[id number] Vancomycin Inj 1,250 MG In NS 265.2 / 265.2 Inj 250 ML @ 250 mls/hr IV.SIG Q12H [facility] Rx#:[id number] fentaNYL 10 mcg/mL Premix Drip 496 / 496 250 / 250 2,500 mcg In 250 ml @ 50 MCG/HR 5 mls/hr IV.SIG TITRATE PRN Rx #:[id number] Water Bolus Amount 50 / 50 Output: Urine Amount (Catheter) 1700 / 1700 3765 / 3765 Indwelling Temp Sensing 1700 / 1700 3765 / 3765 Catheter Gastric Drainage 200 / 200 50 / 50 Oral 200 / 200 50 / 50 Other: Date of Last Bowel Movement 02/04/18 02/04/18 # Bowel Movements 0 Result Diagrams: 02/07/18 03:55 02/07/18 10:00 Objective Remarks: GENERAL: Ill-appearing thin male with temporal wasting, lying in bed, intubated, sedated. SKIN: cool and poorly perfused. HEAD: Atraumatic. Normocephalic. EYES: Pupils equal and round, 2 mm and reactive. No scleral icterus. No injection or drainage. ENT: No nasal bleeding or discharge. Mucous membranes pink and moist. NECK: Trachea midline. +ve JVD. left SC TLC clean dry and dressing intact. CARDIOVASCULAR: Regular rate and rhythm, currently sinus rhythm on the monitor with rate in the 80s. No murmurs rubs or gallops. on milrinone and dobutamine. IABP 1:[address] augmented mean 90 mmHg. RESPIRATORY: intubated. fio2 50%. equal chest rise. Bilateral coarse rhonchi and and rails GASTROINTESTINAL: Abdomen soft, non-tender, nondistended. no guarding. VASC: Right radial art line in place with distal perfusion intact. right femoral IABP in place, site c/d/i. no evidence of hematoma. distal pulses dopplerable. MUSCULOSKELETAL: Extremities without clubbing, cyanosis, or edema. No obvious deformities. NEUROLOGICAL: RASS -2. moves all extremities. no focal deficits. On sedation hold follows commands Assessment and Plan - Problem List (1) Septic shock Code(s): A41.9 - Sepsis, unspecified organism; R65.21 - Severe sepsis with septic shock Status: Acute (2) Staph aureus infection Code(s): A49.01 - Methicillin susceptible Staphylococcus aureus infection, unspecified site Status: Acute (3) NSTEMI (non-ST elevated myocardial infarction) Code(s): I21.4 - Non-ST elevation (NSTEMI) myocardial infarction Status: Acute (4) Status post mechanical aortic valve replacement Code(s): Z95.2 - Presence of prosthetic heart valve Status: Chronic (5) Chronic anticoagulation Code(s): Z79.01 - penitentiary (current) use of anticoagulants Status: Chronic (6) Chronic back pain Code(s): M54.9 - Dorsalgia, unspecified; G89.29 - Other chronic pain Status: Chronic (7) H/O aortic valve replacement Code(s): Z95.2 - Presence of prosthetic heart valve Status: Acute (8) Physical deconditioning Code(s): R53.81 - Other malaise Status: Chronic (9) BPH (benign prostatic hyperplasia) Code(s): N40.0 - Benign prostatic hyperplasia without lower urinary tract symptoms Status: Chronic (10) COPD with hypoxia Code(s): J44.9 - Chronic obstructive pulmonary disease, unspecified; R09.02 - Hypoxemia Status: Chronic - Assessment and Plan Plan: NEURO: History of stroke in 2015 Neuropathy left upper and lower extremity Chronic low back pain Osteopenia Keep heavily sedated for ventilator synchrony and patient comfort Lortab 10/325 every 4 hours as needed for pain Morphine as needed for breakthrough pain Continue Lyrica 150 mg p.o. twice daily Hold Cymbalta 90 mg p.o. daily goal RASS -2. RESP: Acute severe Pulmonary edema Acute hypoxic respiratory failure COPD on 2.5 L home O2 Prior tobacco abuse Albuterol every 2 hours as needed for wheezing. DuoNeb scheduled every 4-6 hours wean fio2 for goal spo2 > 90% bumex drip vent bundle, hob elevated. no SBT while in shock. CV: NSTEMI Cardiogenic shock Atrial fibrillation with RVR Septic and cardiogenic shock Pulmonary edema [facility] [place] mechanical aortic valve (09/21/12 Dr. Gonzalez) s/p Tricuspid annuloplasty Continue Levophed to maintain map greater than 65 bumex drip, continue milrinone infusion EKG from emergency department demonstrated atrial flutter with rate in the 130s with ST depression in II/III/ F, V4 through V6 s/p cath And PCI -proximal LAD and large diagonal 90% stenosis, 2 BMS stent 02/05, mid LAD vasospasm post PCI Continue aspirin, heparin drip. PTT therapeutic Not a candidate for beta-rasheed or ARETHA inhibitor due to hypotension Will continue amiodarone for now for rhythm maintenance as AF-RVR contributing to ischemia, further management per cardiology. CAMERON 01/23/18no evidence of vegetation or thrombus. Normal functioning aortic mechanical valve with trivial aortic insufficiency. Tricuspid annuloplasty. Mild to moderate LV generalized hypokinesis Lipitor 40 mg nightly His bpm analyst is Romana Bartlett in [place]. Patient denies any recent ischemic workup GI: NPO until clinically more improved. still in shock. Protonix for stress ulcer prophylactic Had normal EGD on 10/21/17 FEN/RENAL: BPH Acute kidney injury roberson close monitoring of uop SHARON likely secondary to cardiogenic shock Renal ultrasound to evaluate for evidence of obstruction -did not show any obstruction Hold tamsulosin for now Continue multivitamin. Continue Bumex drip ID: [id number] bacteremia ?UTI PICC removed Has been on Ancef but was given Zosyn in the emergency department. Continue Zosyn and vancomycin, continue gentamicin for synergy Infectious disease following and will defer further antibiotic management to them. Follow-up urine and blood cultures The 2 sets of blood cultures that were obtained in [place] were reportedly drawn from the PICC line. Two peripheral blood cultures were drawn at [facility]. . HEME: Chronic anemia Iron deficiency Continue ferrous sulfate 325 mill grams p.o. daily Received 2 units packed red cells in [place] ER due to anemia and shock. Hgb increased from 9.3 to 12. He does not appear to be actively bleeding, will monitor hgb and consult GI if showing signs of blood loss. ENDO: Euglycemic. PROPH: Heparin drip. Protonix for stress ulcer prophylaxis ACCESS: Right radial art line placed in the emergency department 02/04 #4. Left IJ central line placed 02/05/18 #3. Removed right upper extremity PICC. FULL CODE Patient is critically ill with fever, septic shock, NSTEMI, cardiogenic shock all life threatening without treatment. CCT 35 minutes exclusive of separately billable procedures.
[2018-02-07] MEDS: Midazolam 50 MG/50 ML Inj 50 MG/50 ML BAG IV.CONT PRN (12:46)
[2018-02-07] MEDS ORDERED: ceFAZolin Inj 2,000 MG in Sodium Chlor 0.9% Inj 80 ML IV.SIG SCH (12:52)
[2018-02-07] MEDS: Bumetanide Inj 25 MG/100 ML BAG IV.CONT SCH (14:00)
[2018-02-07] MEDS: Milrinone Inj 20 MG in Sodium Chlor 0.9% Inj 80 ML IV.CONT SCH (14:01)
[2018-02-07] MEDS: ceFAZolin 2 GM Premix Inj 2 GM/50 ML PIGGYBACK IV.SIG SCH ×2 (14:28→22:15)
[2018-02-07 16:35] LABS: Calcium 8.2 mg/dL (8.5-10.1); Carbon Dioxide 31.8 meq/L (21.0-32.0); Potassium 3.3 meq/L (3.5-5.1)
[2018-02-07] MEDS: Azithromycin Inj 500 MG in Sodium Chlor 0.9% Inj 250 ML IV.SIG SCH (20:11)
--- NOTE | 2018-02-07 21:24 | P.PNCA ---
Subjective Interval history: Remains critically ill remains sedated on ventilator, IV Amiodarone, Bumex drip , and IV milrinone. Currently diuresing well with Bumex drip. IABP in place management-good waveform and augmentation. Chest x-ray shows diffuse bilateral pulmonary edema Physical Exam Vital signs: Vital Signs 02/06/18 22:35 02/06/18 23:00 02/07/18 01:22 Temperature 99.6 F Pulse Rate 93 H Respiratory Rate 16 16 16 Blood Pressure 114/48 L Pulse Oximetry 97 99 02/07/18 03:00 02/07/18 03:10 02/07/18 07:26 Temperature 99.5 F Pulse Rate 84 71 Respiratory Rate 16 16 Blood Pressure 114/57 L Pulse Oximetry 99 99 02/07/18 07:32 02/07/18 07:33 02/07/18 08:08 Temperature 98.8 F Pulse Rate 71 Respiratory Rate 16 16 Blood Pressure 131/55 L Pulse Oximetry 98 98 02/07/18 08:11 02/07/18 11:01 02/07/18 11:03 Temperature 99.3 F Pulse Rate 77 77 Respiratory Rate 16 16 Blood Pressure 114/38 L Pulse Oximetry 98 97 02/07/18 11:32 02/07/18 14:21 02/07/18 14:59 Temperature Pulse Rate 83 Respiratory Rate 16 16 Blood Pressure Pulse Oximetry 97 97 02/07/18 15:00 02/07/18 15:01 02/07/18 19:00 Temperature 99.6 F Pulse Rate 83 83 Respiratory Rate 16 16 Blood Pressure 110/47 L Pulse Oximetry 97 97 02/07/18 19:15 Temperature Pulse Rate Respiratory Rate 16 Blood Pressure Pulse Oximetry Intake & Output 02/07/18 02/07/18 02/08/18 06:59 18:59 06:59 Intake Total 1434 / 1434 853.250 / 853.250 Output Total 3815 / 3815 4250 / 4250 Balance -2381 / -2381 -3396.750 / -3396.750 Weight 60.5 kg Intake: IV 1384 / 1384 853.250 / 853.250 Versed Inj 50 mg In 50 ml @ 2 50 / 50 MG/HR 2 mls/hr IV.CONT TITRATE PRN Rx#:[id number] Primacor Inj 20 MG In NS Inj 80 34 / 34 100 / 100 ML @ Per Protocol IV.CONT .Q0M ADRIEN Rx#:[id number] Azithromycin Inj 500 MG In NS 250 / 250 Inj 250 ML @ 250 mls/hr IV.SIG Q24H ADRIEN Rx#:[id number] Gentamicin Inj 65 MG In NS Inj 203.250 / 203.250 100 ML @ 203 mls/hr IV.SIG Q12H ADRIEN Rx#:[id number] Levophed-Dextrose 4 mg/250 ml 750 / 750 250 / 250 Drip 4 mg In 250 ml @ 2 MCG/MIN 7.5 mls/hr IV.SIG TITRATE PRN Rx#:[id number] Zosyn 3.375 GM Premix 50 ML @ 100 / 100 100 / 100 100 mls/hr IV.SIG Q6H ADRIEN Rx#: [id number] KCl 20 mEq Premix Inj 20 meq In 100 / 100 100 ml @ 50 mls/hr IV.SIG Q2H PRN Rx#:[id number] Ancef 2 GM Premix Inj 2 gm In 50 / 50 50 ml @ 100 mls/hr IV.SIG Q8H ADRIEN Rx#:[id number] fentaNYL 10 mcg/mL Premix Drip 250 / 250 2,500 mcg In 250 ml @ 50 MCG/HR 5 mls/hr IV.SIG TITRATE PRN Rx #:[id number] Water Bolus Amount 50 / 50 Output: Urine Amount (Catheter) 3765 / 3765 4150 / 4150 Indwelling Temp Sensing 3765 / 3765 4150 / 4150 Catheter Gastric Drainage 50 / 50 100 / 100 Oral 50 / 50 100 / 100 Other: Date of Last Bowel Movement 02/04/18 # Bowel Movements 0 - Constitutional chronically ill appearing (sedated on ventilator) - Routine Neck Exam Present: JVD - Routine Respiratory Exam Present: patient mechanically ventilated, decreased breath sounds - Routine Cardiovascular Exam Present: RRR, S1, S2 - Routine Abdominal Exam Present: soft - Routine Skin Exam Present: intact - Urinary Catheter Management Indwelling Temp Sensing Catheter Cath placed during this visit: yes Reason for continuing: Hourly intake/output Insertion date: 02/05/18 Insertion time: 17:35 Assessment and Plan - Assessment (1) Cardiogenic shock Code(s): R57.0 - Cardiogenic shock Status: Acute (2) Bacteremia Code(s): R78.81 - Bacteremia Status: Acute (3) NSTEMI (non-ST elevated myocardial infarction) Code(s): I21.4 - Non-ST elevation (NSTEMI) myocardial infarction Status: Acute (4) Status post mechanical aortic valve replacement Code(s): Z95.2 - Presence of prosthetic heart valve Status: Chronic (5) COPD with hypoxia Code(s): J44.9 - Chronic obstructive pulmonary disease, unspecified; R09.02 - Hypoxemia Status: Chronic - Plan 1. Cardiogenic shock, LVEF 20% by 02/05/18 Echo. IABP placed 02/05/18, on Milrinone drip. Bumix drip. 2. CAD. NSTEMI, Proximal LAD and large diagonal 90% stenosis, stented with 2 BMS stent 02/05/18, mid LAD vasospasm post PCI 3. Respiratory failure due to pulmonary edema, intubated 02/05/18 4. Afib RVR, ON IV amiodarone. ON IV Digoxin. HR in 80s. 5. Anemia, stable after transfusion 7. Sepsis, on Abx 8. hx of AVR on AC. CAMERON last week showed normal prosthesis function, trace AR. IV Heparin. Family was updated of his critical condition. I did talk to his on phone, updated current condition to her.
[2018-02-08 00:18] LABS: Carbon Dioxide 30.5 meq/L (21.0-32.0)
[2018-02-08 00:19] LABS: Calcium 8.2 mg/dL (8.5-10.1)
[2018-02-08 00:22] LABS: Potassium 2.9 meq/L (3.5-5.1)
[2018-02-08] MEDS: Potassium Chlor 20 mEq Premix 20 MEQ/100 ML PIGGYBACK IV.SIG PRN ×4 (00:35→06:24)
[2018-02-08] MEDS: Oral Hygiene Kit OROPHARYNG SCH ×4 (00:50→16:24)
[2018-02-08] MEDS: Piperacil/Tazo 3.375 GM Premix 50 ML IV.SIG SCH ×4 (01:56→19:51)
[2018-02-08] MEDS: Bumetanide Inj 25 MG/100 ML BAG IV.CONT SCH (02:27)
[2018-02-08] MEDS: Chlorhexidine Gluconate 2% 1 Pack (2 Cloths) TOPICAL SCH (04:31)
[2018-02-08 04:58] LABS: INR 1.8 Ratio
[2018-02-08 05:20] LABS: Albumin 2.4 g/dL (3.4-5.0); Anion Gap 10 meq/L (5-15); Aspartate Aminotransferase 317 U/L (15-37); Blood Urea Nitrogen 16 mg/dL (7-18); Calcium 8.7 mg/dL (8.5-10.1); Carbon Dioxide 31.2 meq/L (21.0-32.0); Chloride 96 meq/L (98-107); Glomerular Filtration Rate 53 mL/min (>89); Glucose,Random 131 mg/dL (74-106); Potassium 3.6 meq/L (3.5-5.1); Sodium 137 meq/L (136-145)
[2018-02-08 05:21] LABS: Baso # (Auto) 0.1 th/mm3 (0.0-0.2); Eos # (Auto) 0.2 th/mm3 (0.0-0.4); Eos % (Auto) 1.6 % (0.0-4.0); Hematocrit 34.2 % (39.0-51.0); Hemoglobin 11.3 gm/dL (13.0-17.0); Lymph # (Auto) 0.7 th/mm3 (1.0-4.8); Lymph % (Auto) 7.1 % (9.0-44.0); Mean Corpuscular HGB Conc 33.1 % (32.0-36.0); Mean Corpuscular Hemoglobin 29.9 pg (27.0-34.0); Mean Corpuscular Volume 90.4 fL (80.0-100.0); Mean Platelet Volume 8.6 fL (7.0-11.0); Mono % (Auto) 9.4 % (0.0-8.0); Neut # (Auto) 8.2 th/mm3 (1.8-7.7); Neut % (Auto) 80.9 % (16.0-70.0); Platelet Count 414 th/mm3 (150-450); Red Blood Count 3.79 mil/mm3 (4.50-5.90); Red Cell Distribution Width 16.8 % (11.6-17.2); White Blood Count 10.2 th/mm3 (4.0-11.0)
[2018-02-08 05:28] LABS: Alanine Aminotransferase 187 U/L (12-78); Alkaline Phosphatase 131 U/L (45-117); Total Protein 7.5 g/dL (6.4-8.2); Vancomycin,Random 17.3 Comment
[2018-02-08] MEDS ORDERED: Pharmacy Ordered Lab Info OTHER ONE ×2 (05:30→06:30)
[2018-02-08] MEDS: ceFAZolin 2 GM Premix Inj 2 GM/50 ML PIGGYBACK IV.SIG SCH ×3 (06:15→22:01)
[2018-02-08] MEDS: GENTAMICIN IV.SIG SCH ×2 (06:15→19:55)
[2018-02-08] MEDS: Milrinone Inj 20 MG in Sodium Chlor 0.9% Inj 80 ML IV.CONT SCH ×2 (06:15→22:02)
[2018-02-08] MEDS: SODIUM CHLOR 0.9% IV.SIG SCH ×2 (06:15→19:55)
--- NOTE | 2018-02-08 06:48 | XR ---
EXAM DATE: 02/08/2018 6:39 AM EDT AGE/SEX: 62 years / Male INDICATIONS: Shortness of breath. CLINICAL DATA: This is the patient's subsequent encounter. Patient reports that signs and symptoms h ave been present for 3 days and indicates a pain score of Nonresponsive. MEDICAL/SURGICAL HISTORY: Non-responsive. Non-responsive. COMPARISON: [facility], CHEST 1V SINGLE AP, 02/06/2018. . FINDINGS: A single AP view of the chest demonstrates stable position of life-support tubes. Improving pulmonary edema but there are still bibasilar areas of consolidation with probable associated left-sided effus ion. Heart size is normal. Findings of prior aortic valvular replacement. Intact median sternotomy wi res CONCLUSION: 1. Improving radiographic appearance of the chest with resolving pulmonary edema. 2. Persistent bibasilar airspace disease with probable associated left-sided effusion. 3. Stable position of life-support tubes. Electronically signed by: Raza Ty MD 02/08/2018 6:47 AM EDT
[2018-02-08] MEDS: fentaNYL 10 mcg/mL Premix Drip 2,500 MCG/250 ML BAG IV.SIG PRN (07:40)
[2018-02-08] MEDS: Midazolam 50 MG/50 ML Inj 50 MG/50 ML BAG IV.CONT PRN (07:43)
--- NOTE | 2018-02-08 08:33 | P.PNCC ---
Subjective Subjective Remarks/Hospital Course: 62-year-old male with past medical history of [place] mechanical aortic valve (09/21/12 Dr. Gonzalez), on chronic anticoagulation with warfarin, atrial fibrillation postop from AVR , COPD on 2.5 L home O2, stroke in 2015 resulting in left-sided sensory deficits and neuropathy, osteoporosis with chronic low back pain. He was recently admitted to [facility] from 01/23 through 01/31/18 for MSSA bacteremia. It is believed that the original source of infection was a wound on his right index finger when electric drill slipped and created a puncture wound. He was discharged with right upper extremity PICC line receiving cefazolin 2 g IV every 8 hours and gentamicin 210 mg IV daily. He states that home health administered antibiotics at 17:00 and shortly thereafter he began having chills and rigors and sought medical attention at [facility]. He had no rash. Upon arrival, he was hypotensive in the low 80s. He was given 2 L S bolus but remained hypotensive so was started on Levophed. He then developed heart rate in the 140s, reportedly atrial flutter so he was started on Amiodarone drip in [place] and converted to sinus rhythm. He was transfused 2 units PRBC due to Hgb 9.3. His stool was nonbloody nonmelena but was Hemoccult positive. He was given zosyn and vancomycin. Critical care medicine was then contacted and accepted patient for transfer to [facility]. He denies tenderness/redness/drainage at PICC site. Aside from mechanical aortic valve, he has no other hardware or indwelling devices. He denies headache, cough, dysuria. He has had a few loose stools at home, but stools have sometimes been formed. He denies chest pain, does report some SOB. EKG at [place] had marked inferolateral ischemic changes. Obtained EKG upon arrival to [facility] which is improved. SUBJ 02/05: Patient remains critical ill appearing, complaints of chest tightness but denies pain. Remains on 8 mcg/min of Levophed to maintain map about 65. However increasing shortness of breath. Chest x-ray shows increasing pulmonary edema. Troponin was 27.5 currently on IV heparin therapeutic. Cardiology consult is pending at this time. I will stop on maintenance fluids give 40 mg IV Lasix and IV albumin 25 g 1. Patient is very critical patient and updated at the bedside 02/06: [facility] [employer] last night for [facility] with LAD stent complicated by vasospasm of the LAD. IABP placed. patient emergently intubated for acute hypoxic respiratory failure secondary to cardiogenic shock and pulmonary edema. started on milrinone at 0.375 mcg/kg/min and levophed. bumex drip started. remains critically ill. 02/07: Remains critically ill remains on Levophed and milrinone. Currently diuresing well with Bumex drip. IABP in place management per cardiology-good waveform and augmentation. Chest x-ray shows adequate positioning of IABP, diffuse bilateral pulmonary edema 02/08: Remains critical but showing some signs of improvement. Diuresing very well on Bumex infusion. Remains on Levophed and milrinone. IABP one-to-one with good augmentation management per cardiology. Chest x-ray shows improving edema but with persistent bilateral effusions. Will initiate weaning trials if tolerated Objective Vital Signs / I&O: Vital Signs 02/07/18 11:01 02/07/18 11:03 02/07/18 11:32 Temperature 99.3 F Pulse Rate 77 77 Respiratory Rate 16 16 Blood Pressure 114/38 L Pulse Oximetry 97 97 02/07/18 14:21 02/07/18 14:59 02/07/18 15:00 Temperature Pulse Rate 83 83 Respiratory Rate 16 Blood Pressure Pulse Oximetry 97 02/07/18 15:01 02/07/18 19:00 02/07/18 19:15 Temperature 99.6 F Pulse Rate 83 84 Respiratory Rate 16 16 16 Blood Pressure 110/47 L Pulse Oximetry 97 97 02/07/18 19:30 02/07/18 20:00 02/07/18 23:00 Temperature 99.7 F H 99.2 F Pulse Rate 84 84 Respiratory Rate 16 16 Blood Pressure 109/40 L 116/35 L Pulse Oximetry 97 98 98 02/07/18 23:03 02/08/18 00:46 02/08/18 03:00 Temperature 99.1 F Pulse Rate 88 Respiratory Rate 17 16 16 Blood Pressure 133/37 L Pulse Oximetry 98 98 02/08/18 03:37 Temperature Pulse Rate Respiratory Rate 16 Blood Pressure Pulse Oximetry 97 Intake & Output 02/07/18 02/08/1802/08/18 18:59 06:59 18:59 Intake Total 853.250 / 074.294 6647.9 / 1026.9 300 / 300 Output Total 4250 / 4250 4330 / 4330 Balance -3396.750 / -3396.750 -3303.1 / -3303.1 300 / 300 Weight 59 kg Intake: IV 853.250 / 490.684 9331.9 / 1026.9 300 / 300 Cordarone Inj 450 MG In D5W Inj 271 / 271 241 ML @ 1 MG/MIN 33.33 mls/hr IV.CONT TITRATE PRN Rx#: [id number] Versed Inj 50 mg In 50 ml @ 2 50 / 50 50 / 50 MG/HR 2 mls/hr IV.CONT TITRATE PRN Rx#:[id number] Primacor Inj 20 MG In NS Inj 80 100 / 100 100 / 100 ML @ Per Protocol IV.CONT .Q0M ADRIEN Rx#:[id number] Azithromycin Inj 500 MG In NS 244 / 244 Inj 250 ML @ 250 mls/hr IV.SIG Q24H ADRIEN Rx#:[id number] Gentamicin Inj 65 MG In NS Inj 203.250 / 203.250 100 ML @ 203 mls/hr IV.SIG Q12H ADRIEN Rx#:[id number] Levophed-Dextrose 4 mg/250 ml 250 / 250 Drip 4 mg In 250 ml @ 2 MCG/MIN 7.5 mls/hr IV.SIG TITRATE PRN Rx#:[id number] Zosyn 3.375 GM Premix 50 ML @ 100 / 100 84.8 / 84.8 100 mls/hr IV.SIG Q6H ADRIEN Rx#: [id number] KCl 20 mEq Premix Inj 20 meq In 100 / 100 287.1 / 287.1 100 ml @ 50 mls/hr IV.SIG Q2H PRN Rx#:[id number] Ancef 2 GM Premix Inj 2 gm In 50 / 50 40 / 40 50 ml @ 100 mls/hr IV.SIG Q8H ADRIEN Rx#:[id number] fentaNYL 10 mcg/mL Premix Drip 250 / 250 2,500 mcg In 250 ml @ 50 MCG/HR 5 mls/hr IV.SIG TITRATE PRN Rx #:[id number] Output: Urine Amount (Catheter) 4150 / 4150 4305 / 4305 Indwelling Temp Sensing 4150 / 4150 4305 / 4305 Catheter Gastric Drainage 100 / 100 / Oral 100 / 100 Other: Date of Last Bowel Movement 02/04/18 # Bowel Movements 0 0 Result Diagrams: 02/08/18 04:12 02/08/18 04:12 Objective Remarks: GENERAL: Ill-appearing thin male with temporal wasting, lying in bed, intubated, sedated. SKIN: cool and poorly perfused. HEAD: Atraumatic. Normocephalic. EYES: Pupils equal and round, 2 mm and reactive. No scleral icterus. No injection or drainage. ENT: No nasal bleeding or discharge. Mucous membranes pink and moist. NECK: Trachea midline. +ve JVD. left SC TLC clean dry and dressing intact. CARDIOVASCULAR: Regular rate and rhythm, currently sinus rhythm on the monitor with rate in the 80s. No murmurs rubs or gallops. on milrinone and dobutamine. IABP 1:[address] augmented mean 90-92 mmHg. RESPIRATORY: intubated. fio2 50%. equal chest rise. Bilateral coarse rhonchi and and rails GASTROINTESTINAL: Abdomen soft, non-tender, nondistended. no guarding. VASC: Right radial art line in place with distal perfusion intact. right femoral IABP in place, site c/d/i. no evidence of hematoma. distal pulses dopplerable. MUSCULOSKELETAL: Extremities without clubbing, cyanosis, or edema. No obvious deformities. NEUROLOGICAL: RASS -2. moves all extremities. no focal deficits. On sedation hold follows commands Assessment and Plan - Problem List (1) Septic shock Code(s): A41.9 - Sepsis, unspecified organism; R65.21 - Severe sepsis with septic shock Status: Acute (2) Staph aureus infection Code(s): A49.01 - Methicillin susceptible Staphylococcus aureus infection, unspecified site Status: Acute (3) NSTEMI (non-ST elevated myocardial infarction) Code(s): I21.4 - Non-ST elevation (NSTEMI) myocardial infarction Status: Acute (4) Status post mechanical aortic valve replacement Code(s): Z95.2 - Presence of prosthetic heart valve Status: Chronic (5) Chronic anticoagulation 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 Status: Chronic (6) Chronic back pain Code(s): M54.9 - Dorsalgia, unspecified; G89.29 - Other chronic pain Status: Chronic (7) H/O aortic valve replacement Code(s): Z95.2 - Presence of prosthetic heart valve Status: Acute (8) Physical deconditioning Code(s): R53.81 - Other malaise Status: Chronic (9) BPH (benign prostatic hyperplasia) Code(s): N40.0 - Benign prostatic hyperplasia without lower urinary tract symptoms Status: Chronic (10) COPD with hypoxia Code(s): J44.9 - Chronic obstructive pulmonary disease, unspecified; R09.02 - Hypoxemia Status: Chronic - Assessment and Plan Plan: NEURO: History of stroke in 2015 Neuropathy left upper and lower extremity Chronic low back pain Osteopenia Keep heavily sedated for ventilator synchrony and patient comfort, continue Versed gtt, Fentanyl gtt Goal RASS -2. Start daily sedation medication Lortab 10/325 every 4 hours as needed for pain, Morphine as needed for breakthrough pain Continue Lyrica 150 mg p.o. twice daily Hold Cymbalta 90 mg p.o. daily RESP: Acute severe Pulmonary edema Acute hypoxic respiratory failure COPD on 2.5 L home O2 Prior tobacco abuse Albuterol every 2 hours as needed for wheezing. DuoNeb scheduled every 4 hours wean fio2 for goal spo2 > 90% bumex drip vent bundle, hob elevated. no SBT while in shock. CV: NSTEMI Cardiogenic shock Atrial fibrillation with RVR Pulmonary edema Acute systolic heart failure [place] mechanical aortic valve (09/21/12 Dr. Gonzalez) s/p Tricuspid annuloplasty Continue Levophed to maintain map greater than 65. bumex drip, continue milrinone infusion s/p cath And PCI -proximal LAD and large diagonal 90% stenosis, 2 BMS stent 02/05, mid LAD vasospasm post PCI Continue aspirin, heparin drip. PTT therapeutic. Continue Lipitor 40 mg nightly Not a candidate for beta-rasheed or ARETHA inhibitor due to hypotension Will continue amiodarone for now for rhythm maintenance as AF-RVR contributing to ischemia, further management per cardiology. Wean to DC IABP hopefully today, deferred to cardiology CAMERON 01/23/18no evidence of vegetation or thrombus. Normal functioning aortic mechanical valve with trivial aortic insufficiency. Tricuspid annuloplasty. Mild to moderate LV generalized hypokinesis EKG from emergency department demonstrated atrial flutter with rate in the 130s with ST depression in II/III/ F, V4 through V6 His tow feeder is Romana Bartlett in [place]. GI: NPO. Start trickle feeds with Jevity Protonix for stress ulcer prophylactic Had normal EGD on 10/21/17 FEN/RENAL: BPH Acute kidney injury roberson close monitoring of uop SHARON likely secondary to cardiogenic shock Renal ultrasound to evaluate for evidence of obstruction -did not show any obstruction Hold tamsulosin for now Continue multivitamin. 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 Rifampin added 02/07/2018 by ID after cleared by cardiology Infectious disease following and will defer further antibiotic management to them. Follow-up urine and blood cultures The 2 sets of blood cultures that were obtained in [place] were reportedly drawn from the PICC line. Two peripheral blood cultures were drawn at [facility]. . HEME: Chronic anemia Iron deficiency Continue ferrous sulfate 325 mill grams p.o. daily Received 2 units packed red cells in [place] ER due to anemia and shock. Hgb increased from 9.3 to 12. He does not appear to be actively bleeding, will monitor hgb and consult GI if showing signs of blood loss. ENDO: Euglycemic. PROPH: Heparin drip. Protonix for stress ulcer prophylaxis ACCESS: Right radial art line placed in the emergency department 02/04 #5. Left IJ central line placed 02/05/18 #4. Removed right upper extremity PICC. FULL CODE Patient is critically ill with fever, septic shock, NSTEMI, cardiogenic shock all life threatening without treatment. CCT 35 minutes exclusive of separately billable procedures. Code Status: Full
[2018-02-08] MEDS: Digoxin Inj 500 MCG/2 ML Ampul IV.PUSH SCH (09:00)
[2018-02-08] MEDS: Ferrous Sulfate 325 MG Tablet PO SCH (09:24)
[2018-02-08] MEDS: Pregabalin 75 MG Capsule PO SCH (09:24)
[2018-02-08] MEDS: Senna/Docusate Sodium 8.6/50 MG Tablet PO SCH (09:24)
[2018-02-08] MEDS: Chlorhexidine 0.12% Oral Kit 15 ML UDC OROPHARYNG SCH ×2 (09:32→19:50)
[2018-02-08] MEDS: Heparin Drip 25,000 UNIT/250 ML BAG IV.CONT PRN (09:58)
--- NOTE | 2018-02-08 13:20 | P.DIET ---
Nutritional Evaluation Type of nutrition evaluation: initial Nutrition consult regarding: Tube Feeding Subjective Subjective Comments: Recent admission from 01/23-01/31 for MSSA bacteremia. Objective - Diagnosis Septic Shock - Objective % IBW: 88 (IBW = 148#) Body Weight Used for Calculations: Actual (59 kg) Energy Needs - Lower Range (kCal/kg): 28 Energy Needs - Upper Range (kCal/kg): 32 Lower Limit kCal/kg (kCals): 1,652 Upper Limit kCal/kg (kCals): 1,888 Lower Limit Protein Factor (Grams per Kg): 1.2 Upper Limit Protein Factor (Grams per Kg): 1.6 Lower Protein Needs (Protein): 71 Upper Protein Needs (Protein): 94 Dietitian Reviewed in Medical Record: Curent medications, Intake & Output, Labs , Medical history, Tube feeding Objective Comments: LBM 02/04 Assessment Assessment: Pt was emergently intubated for acute hypoxic respiratory failure 2' to cardiogenic shock. TFing of Jevity 1.5 @ 20 mls/hr with Beneprotein 1 pack tid ordered. To meet needs with Jevity 1.5, recommend goal rate of 50 mls/hr to provide 1800 kcals, 77 gms protein and 912 mls of free water. Beneprotein as ordered will provide an additional 75 kcals and 18 gms of protein. Recommendations: Jevity 1.5 @ 50 mls/hr goal as tolerated Beneprotein as ordered
--- NOTE | 2018-02-08 16:25 | P.PNID ---
Subjective Remarks: events noted remains intubated and on baloone pump no fever + good UOP secretions are moderate Antibiotics: zosyn cefazolin gent Allergies/Adverse Reactions: Allergies No Known Allergies Allergy (Verified 02/04/18 18:10) Objective Vital Signs 02/07/18 19:00 02/07/18 19:15 02/07/18 19:30 Temperature 99.7 F H Pulse Rate 84 84 Respiratory Rate 16 16 16 Blood Pressure 109/40 L Pulse Oximetry 97 97 02/07/18 20:00 02/07/18 23:00 02/07/18 23:03 Temperature 99.2 F Pulse Rate 84 Respiratory Rate 16 17 Blood Pressure 116/35 L Pulse Oximetry 98 98 98 02/08/18 00:46 02/08/18 03:00 02/08/18 03:37 Temperature 99.1 F Pulse Rate 88 Respiratory Rate 16 16 16 Blood Pressure 133/37 L Pulse Oximetry 98 97 02/08/18 07:00 02/08/18 08:00 02/08/18 09:45 Temperature 98.4 F Pulse Rate 85 Respiratory Rate 16 16 Blood Pressure 131/36 L Pulse Oximetry 98 99 99 02/08/18 11:00 02/08/18 12:41 02/08/18 15:00 Temperature 98.7 F 98.6 F Pulse Rate 88 85 Respiratory Rate 17 16 16 Blood Pressure 113/31 L 110/40 L Pulse Oximetry 96 97 94 L 02/08/18 15:36 Temperature Pulse Rate Respiratory Rate 16 Blood Pressure Pulse Oximetry 94 L Intake & Output 02/07/18 02/08/18 02/08/18 18:59 06:59 18:59 Intake Total 853.250 / 280.826 9452.9 / 1076.9 350 / 350 Output Total 4250 / 4250 4330 / 4330 Balance -3396.750 / -3396.750 -3253.1 / -3253.1 350 / 350 Weight 59 kg Intake: IV 853.250 / 576.507 7746.9 / 1076.9 350 / 350 Cordarone Inj 450 MG In D5W Inj 271 / 271 241 ML @ 1 MG/MIN 33.33 mls/hr IV.CONT TITRATE PRN Rx#: [id number] Versed Inj 50 mg In 50 ml @ 2 50 / 50 50 / 50 MG/HR 2 mls/hr IV.CONT TITRATE PRN Rx#:[id number] Primacor Inj 20 MG In NS Inj 80 100 / 100 100 / 100 ML @ Per Protocol IV.CONT .Q0M [facility] Rx#:[id number] Azithromycin Inj 500 MG In NS 244 / 244 Inj 250 ML @ 250 mls/hr IV.SIG Q24H [facility] Rx#:[id number] Gentamicin Inj 65 MG In NS Inj 203.250 / 203.250 100 ML @ 203 mls/hr IV.SIG Q12H [facility] Rx#:[id number] Levophed-Dextrose 4 mg/250 ml 250 / 250 Drip 4 mg In 250 ml @ 2 MCG/MIN 7.5 mls/hr IV.SIG TITRATE PRN Rx#:[id number] Zosyn 3.375 GM Premix 50 ML @ 100 / 100 84.8 / 84.8 50 / 50 100 mls/hr IV.SIG Q6H [facility] Rx#: [id number] KCl 20 mEq Premix Inj 20 meq In 100 / 100 287.1 / 287.1 100 ml @ 50 mls/hr IV.SIG Q2H [facility]N Rx#:[id number] Ancef 2 GM Premix Inj 2 gm In 50 / 50 90 / 90 50 ml @ 100 mls/hr IV.SIG Q8H [facility] Rx#:[id number] fentaNYL 10 mcg/mL Premix Drip 250 / 250 2,500 mcg In 250 ml @ 50 MCG/HR 5 mls/hr IV.SIG TITRATE PRN Rx #:[id number] Output: Urine Amount (Catheter) 4150 / 4150 4305 / 4305 Indwelling Temp Sensing 4150 / 4150 4305 / 4305 Catheter Gastric Drainage 100 / 100 25 / 25 Oral 100 / 100 25 / 25 Other: Date of Last Bowel Movement 02/04/18 02/04/18 # Bowel Movements 0 0 02/05/18 00:42 Blood - Peripheral Aerobic Blood Culture - Preliminary No growth in 3 days 02/05/18 00:42 Blood - Peripheral Anaerobic Blood Culture - Preliminary No growth in 3 days 02/05/18 00:12 Blood - Peripheral Aerobic Blood Culture - Preliminary No growth in 3 days 02/05/18 00:12 Blood - Peripheral Anaerobic Blood Culture - Preliminary No growth in 3 days 02/06/18 14:00 Sputum - Endotracheal Gram Stain - Final 02/06/18 14:00 Sputum - Endotracheal Sputum Culture - Final Moderate growth normal respiratory ursula Lab - Hematology Results 02/07/18 02/08/18 03:55 04:12 WBC 10.7 10.2 RBC 3.46 L 3.79 L Hgb 10.4 L 11.3 L Hct 31.2 L 34.2 L MCV 90.2 90.4 MCH 30.0 29.9 MCHC 33.3 33.1 RDW 17.2 16.8 Plt Count 378 414 MPV 8.3 8.6 Neut % (Auto) 84.8 H 80.9 H Lymph % (Auto) 5.5 L 7.1 L Bell % (Auto) 8.3 H 9.4 H Eos % (Auto) 0.6 1.6 Baso % (Auto) 0.8 1.0 Neut # (Auto) 9.1 H 8.2 H Lymph # (Auto) 0.6 L 0.7 L Bell # (Auto) 0.9 1.0 H Eos # (Auto) 0.1 0.2 Baso # (Auto) 0.1 0.1 WBC Differential . . Differential Comment Auto diff final Auto diff final Lab - Chemistry Results 02/06/18 02/06/18 02/06/18 16:01 16:01 22:15 Sodium 140 139 Potassium 3.6 3.8 Chloride 106 105 Carbon Dioxide 25.1 22.8 Anion Gap 9 11 BUN 24 H 24 H Creatinine 1.46 H 1.64 H Estimated GFR 49 L 43 L Random Glucose 133 H 185 H Lactic Acid 1.3 Calcium 7.7 L 8.0 L Total Bilirubin AST ALT Alkaline Phosphatase Total Protein Albumin 02/06/18 02/07/18 02/07/18 22:15 03:55 03:55 Sodium 141 Potassium 3.3 L Chloride 106 Carbon Dioxide 27.4 Anion Gap 8 BUN 22 H Creatinine 1.46 H Estimated GFR 49 L Random Glucose 156 H Lactic Acid 3.6 H 1.0 Calcium 7.9 L Total Bilirubin AST ALT Alkaline Phosphatase Total Protein Albumin 02/07/18 02/07/18 02/07/18 10:00 10:00 15:59 Sodium 139 140 Potassium 3.3 L 3.3 L Chloride 102 101 Carbon Dioxide 29.1 31.8 Anion Gap 8 7 BUN 20 H 19 H Creatinine 1.40 H 1.43 H Estimated GFR 51 L 50 L Random Glucose 135 H 140 H Lactic Acid 1.1 Calcium 8.2 L 8.2 L Total Bilirubin AST ALT Alkaline Phosphatase Total Protein Albumin 02/07/18 02/08/18 23:32 04:12 Sodium 138 137 Potassium 2.9 L* 3.6 Chloride 97 L 96 L Carbon Dioxide 30.5 31.2 Anion Gap 11 10 BUN 16 16 Creatinine 1.37 H 1.35 H Estimated GFR 52 L 53 L Random Glucose 142 H 131 H Lactic Acid Calcium 8.2 L 8.7 Total Bilirubin 0.9 AST 317 H ALT 187 H Alkaline Phosphatase 131 H Total Protein 7.5 Albumin 2.4 L Imaging: ITS Impressions Abdomen/Bladder Ultrasound 02/05/18 00:00 CONCLUSION: 1. No evidence of hydronephrosis. 2. The echogenicity of the kidneys is equal to that of the liver which can be seen with medical renal disease. 3. Simple cyst in right kidney. 4. Suboptimal visualization of the left kidney. 5. Small amount of free fluid along the spleen. This could represent an adjacent pleural effusion. Chest X-Ray 02/08/18 06:00 CONCLUSION: 1. Improving radiographic appearance of the chest with resolving pulmonary edema. 2. Persistent bibasilar airspace disease with probable associated left-sided effusion. 3. Stable position of life-support tubes. Physical Exam: GENERAL: sedated intubasted on vent and baloon pump SKIN: Warm and dry. HEAD: Atraumatic. Normocephalic. EYES: Pupils equal and round. No scleral icterus. No injection or drainage. ENT: No nasal bleeding or discharge. Mucous membranes pink and moist. NECK: Trachea midline. No JVD. CARDIOVASCULAR: Regular rate and rhythm. Mecahnical ballon pump sounds + diastolic blowing murmur on aortic valve point 1-2/6 today RESPIRATORY: No accessory muscle use. b/l rales to auscultation. Breath sounds equal bilaterally. GASTROINTESTINAL: Abdomen soft, non-tender, nondistended. Hepatic and splenic margins not palpable. : roberson in place with good amount of urine MUSCULOSKELETAL: Extremities without clubbing, cyanosis, or edema. No obvious deformities. warmt o cool to touch feet NEUROLOGICAL: sedated, eyes closed not following commands PSYCHIATRIC:unable to assess Assessment and Plan - Plan Sepsis ? PICC line - removed Previous MSSA sepsis with presumed PVE of aortic valve prosthesis, on treatment - tx included vanco+ gent w/o rifampin DOubt UTI Resp insufficiency, CHF EF < 20 % sp GA troponin peaked @ 32 change vanco to cefaZOline as a part of PVE Rx dc vanco cont zosyn cont gentamycin' add rifampin despite warfarin interactions INR can be closelty monitored during and after tx to ensure values stay within therapeutic targets however will pat salon/spa manager regarding interaction with amiodarone dc azithro after tomorrow dose monitor blood clx monitor urine clx obtain sputum clx will dc zosyn if cultures remain negative pat Spears
--- NOTE | 2018-02-08 19:21 | P.PNCA ---
Subjective Interval history: Still critically ill, but improving. Cxr showed improvement. BP stable with IABP 1:2 augmentation. Physical Exam Vital signs: Vital Signs 02/07/18 19:30 02/07/18 20:00 02/07/18 23:00 Temperature 99.7 F H 99.2 F Pulse Rate 84 84 Respiratory Rate 16 16 Blood Pressure 109/40 L 116/35 L Pulse Oximetry 97 98 98 02/07/18 23:03 02/08/18 00:46 02/08/18 03:00 Temperature 99.1 F Pulse Rate 88 Respiratory Rate 17 16 16 Blood Pressure 133/37 L Pulse Oximetry 98 98 02/08/18 03:37 02/08/18 07:00 02/08/18 08:00 Temperature 98.4 F Pulse Rate 85 Respiratory Rate 16 16 Blood Pressure 131/36 L Pulse Oximetry 97 98 99 02/08/18 09:45 02/08/18 11:00 02/08/18 12:41 Temperature 98.7 F Pulse Rate 88 Respiratory Rate 16 17 16 Blood Pressure 113/31 L Pulse Oximetry 99 96 97 02/08/18 15:00 02/08/18 15:36 Temperature 98.6 F Pulse Rate 85 Respiratory Rate 16 16 Blood Pressure 110/40 L Pulse Oximetry 94 L 94 L Intake & Output 02/08/18 02/08/18 02/09/18 06:59 18:59 06:59 Intake Total 1326.9 / 1326.9 600 / 600 Output Total 4330 / 4330 Balance -3003.1 / -3003.1 600 / 600 Weight 59 kg Intake: IV 1326.9 / 1326.9 600 / 600 Cordarone Inj 450 MG In D5W Inj 271 / 271 250 / 250 241 ML @ 1 MG/MIN 33.33 mls/hr IV.CONT TITRATE PRN Rx#: [id number] Versed Inj 50 mg In 50 ml @ 2 50 / 50 MG/HR 2 mls/hr IV.CONT TITRATE PRN Rx#:[id number] Primacor Inj 20 MG In NS Inj 80 100 / 100 ML @ Per Protocol IV.CONT .Q0M [facility] Rx#:[id number] Azithromycin Inj 500 MG In NS 244 / 244 Inj 250 ML @ 250 mls/hr IV.SIG Q24H [facility] Rx#:[id number] Levophed-Dextrose 4 mg/250 ml 250 / 250 Drip 4 mg In 250 ml @ 2 MCG/MIN 7.5 mls/hr IV.SIG TITRATE PRN Rx#:[id number] Zosyn 3.375 GM Premix 50 ML @ 84.8 / 84.8 50 / 50 100 mls/hr IV.SIG Q6H [facility] Rx#: [id number] KCl 20 mEq Premix Inj 20 meq In 287.1 / 287.1 100 ml @ 50 mls/hr IV.SIG Q2H [facility] Rx#:[id number] Ancef 2 GM Premix Inj 2 gm In 90 / 90 50 ml @ 100 mls/hr IV.SIG Q8H [facility] Rx#:[id number] fentaNYL 10 mcg/mL Premix Drip 250 / 250 2,500 mcg In 250 ml @ 50 MCG/HR 5 mls/hr IV.SIG TITRATE PRN Rx #:[id number] Output: Urine Amount (Catheter) 4305 / 4305 Indwelling Temp Sensing 4305 / 4305 Catheter Gastric Drainage / Oral Other: Date of Last Bowel Movement 02/04/18 # Bowel Movements 0 - Constitutional Comments: sedated on ventilator - Routine Neck Exam Absent: carotid bruit - Routine Respiratory Exam Present: patient mechanically ventilated - Routine Cardiovascular Exam Present: RRR, S1, S2. Absent: rubs - Routine Abdominal Exam Present: soft, normoactive bowel sounds - Routine Skin Exam Present: intact - Routine Neurological Exam sedated on ventilator - Routine Psychiatric Exam Present: unable to assess - Urinary Catheter Management Indwelling Temp Sensing Catheter Cath placed during this visit: yes Reason for continuing: Hourly intake/output Insertion date: 02/05/18 Insertion time: 17:35 Assessment and Plan - Assessment (1) Cardiogenic shock Code(s): R57.0 - Cardiogenic shock Status: Acute (2) Bacteremia Code(s): R78.81 - Bacteremia Status: Acute (3) NSTEMI (non-ST elevated myocardial infarction) Code(s): I21.4 - Non-ST elevation (NSTEMI) myocardial infarction Status: Acute (4) Status post mechanical aortic valve replacement Code(s): Z95.2 - Presence of prosthetic heart valve Status: Chronic (5) COPD with hypoxia Code(s): J44.9 - Chronic obstructive pulmonary disease, unspecified; R09.02 - Hypoxemia Status: Chronic - Plan 1. Cardiogenic shock, LVEF 20% by 02/05/18 Echo. IABP placed 02/05/18, on Milrinone drip. Bumix drip. Clinically improving. IABP removed today. 2. CAD. NSTEMI, Proximal LAD and large diagonal 90% stenosis, stented with 2 BMS stent 02/05/18. 3. Respiratory failure due to pulmonary edema, intubated 02/05/18 4. Afib RVR, ON IV amiodarone. ON IV Digoxin. HR in 80s. 5. Anemia, stable after transfusion 7. Sepsis, on Abx 8. hx of AVR on AC. CAMERON last week showed normal prosthesis function, trace AR. IV Heparin. Family was updated of his critical condition. I did talk to his on phone, updated current condition to her.
[2018-02-08] MEDS: Azithromycin Inj 500 MG in Sodium Chlor 0.9% Inj 250 ML IV.SIG SCH (19:49)
[2018-02-08] MEDS: Beneprotein Powder Packet G-TUBE SCH (19:50)
[2018-02-09] MEDS: Pregabalin 75 MG Capsule PO SCH ×3 (01:22→22:00)
[2018-02-09] MEDS: Senna/Docusate Sodium 8.6/50 MG Tablet PO SCH ×3 (01:23→21:55)
[2018-02-09] MEDS: Oral Hygiene Kit OROPHARYNG SCH ×4 (01:23→16:56)
[2018-02-09] MEDS: Piperacil/Tazo 3.375 GM Premix 50 ML IV.SIG SCH ×2 (01:23→08:17)
[2018-02-09 05:30] LABS: Baso # (Auto) 0.1 th/mm3 (0.0-0.2); Baso % (Auto) 0.9 % (0.0-2.0); Eos # (Auto) 0.1 th/mm3 (0.0-0.4); Eos % (Auto) 1.3 % (0.0-4.0); Hematocrit 34.3 % (39.0-51.0); Hemoglobin 11.4 gm/dL (13.0-17.0); Lymph # (Auto) 0.6 th/mm3 (1.0-4.8); Lymph % (Auto) 6.6 % (9.0-44.0); Mean Corpuscular HGB Conc 33.2 % (32.0-36.0); Mean Corpuscular Volume 90.2 fL (80.0-100.0); Mean Platelet Volume 8.1 fL (7.0-11.0); Mono % (Auto) 10.7 % (0.0-8.0); Neut # (Auto) 7.6 th/mm3 (1.8-7.7); Neut % (Auto) 80.5 % (16.0-70.0); Platelet Count 366 th/mm3 (150-450); Red Cell Distribution Width 16.3 % (11.6-17.2); White Blood Count 9.4 th/mm3 (4.0-11.0)
[2018-02-09] MEDS: GENTAMICIN IV.SIG SCH ×2 (05:33→17:16)
[2018-02-09] MEDS: SODIUM CHLOR 0.9% IV.SIG SCH ×2 (05:33→17:16)
[2018-02-09] MEDS: Chlorhexidine Gluconate 2% 1 Pack (2 Cloths) TOPICAL SCH (05:34)
[2018-02-09] MEDS: ceFAZolin 2 GM Premix Inj 2 GM/50 ML PIGGYBACK IV.SIG SCH ×3 (05:34→21:55)
[2018-02-09 05:41] LABS: Activated Partial Thrombo Time 47.8 sec (24.3-30.1); INR 1.5 Ratio; Prothrombin Time 14.7 sec (9.8-11.6)
--- NOTE | 2018-02-09 07:16 | P.PNCC ---
Subjective Subjective Remarks/Hospital Course: 62-year-old male with past medical history of [place] mechanical aortic valve (09/21/12 Dr. Gonzalez), on chronic anticoagulation with warfarin, atrial fibrillation postop from AVR , COPD on 2.5 L home O2, stroke in 2015 resulting in left-sided sensory deficits and neuropathy, osteoporosis with chronic low back pain. He was recently admitted to [facility] from 01/23 through 01/31/18 for MSSA bacteremia. It is believed that the original source of infection was a wound on his right index finger when electric drill slipped and created a puncture wound. He was discharged with right upper extremity PICC line receiving cefazolin 2 g IV every 8 hours and gentamicin 210 mg IV daily. He states that home health administered antibiotics at 17:00 and shortly thereafter he began having chills and rigors and sought medical attention at [facility]. He had no rash. Upon arrival, he was hypotensive in the low 80s. He was given 2 L S bolus but remained hypotensive so was started on Levophed. He then developed heart rate in the 140s, reportedly atrial flutter so he was started on Amiodarone drip in [place] and converted to sinus rhythm. He was transfused 2 units PRBC due to Hgb 9.3. His stool was nonbloody nonmelena but was Hemoccult positive. He was given zosyn and vancomycin. Critical care medicine was then contacted and accepted patient for transfer to [facility]. He denies tenderness/redness/drainage at PICC site. Aside from mechanical aortic valve, he has no other hardware or indwelling devices. He denies headache, cough, dysuria. He has had a few loose stools at home, but stools have sometimes been formed. He denies chest pain, does report some SOB. EKG at [place] had marked inferolateral ischemic changes. Obtained EKG upon arrival to [facility] which is improved. SUBJ 02/05: Patient remains critical ill appearing, complaints of chest tightness but denies pain. Remains on 8 mcg/min of Levophed to maintain map about 65. However increasing shortness of breath. Chest x-ray shows increasing pulmonary edema. Troponin was 27.5 currently on IV heparin therapeutic. Cardiology consult is pending at this time. I will stop on maintenance fluids give 40 mg IV Lasix and IV albumin 25 g 1. Patient is very critical patient and updated at the bedside 02/06: to blood and plasma laboratory assistant last night for [facility] with LAD stent complicated by vasospasm of the LAD. IABP placed. patient emergently intubated for acute hypoxic respiratory failure secondary to cardiogenic shock and pulmonary edema. started on milrinone at 0.375 mcg/kg/min and levophed. bumex drip started. remains critically ill. 02/07: Remains critically ill remains on Levophed and milrinone. Currently diuresing well with Bumex drip. IABP in place management per cardiology-good waveform and augmentation. Chest x-ray shows adequate positioning of IABP, diffuse bilateral pulmonary edema 02/08: Remains critical but showing some signs of improvement. Diuresing very well on Bumex infusion. Remains on Levophed and milrinone. IABP one-to-one with good augmentation management per cardiology. Chest x-ray shows improving edema but with persistent bilateral effusions. Will initiate weaning trials if tolerated 02/09: Still remains on pressors, unable to wean Levophed below 2 mcg/min. Milrinone currently on 0.375 mcg/kg/min. IABP removed yesterday. On sedation hold patient wakes up but remains lethargic. Weakly squeezes hand. Urine output excellent on Bumex, 4 L output in 24 hours. Will attempt CPAP today Objective Vital Signs / I&O: Vital Signs 02/08/18 08:00 02/08/18 09:45 02/08/18 11:00 Temperature 98.7 F Pulse Rate 88 Respiratory Rate 16 17 Blood Pressure 113/31 L Pulse Oximetry 99 99 96 02/08/18 12:41 02/08/18 15:00 02/08/18 15:36 Temperature 98.6 F Pulse Rate 85 Respiratory Rate 16 16 16 Blood Pressure 110/40 L Pulse Oximetry 97 94 L 94 L 02/08/18 19:00 02/08/18 19:46 02/08/18 20:00 Temperature 98.1 F Pulse Rate 82 Respiratory Rate 16 16 Blood Pressure 109/60 Pulse Oximetry 99 95 99 02/08/18 23:00 02/09/18 00:27 02/09/18 03:00 Temperature 99 F 100 F H Pulse Rate 77 93 H Respiratory Rate 16 16 16 Blood Pressure 130/59 L 97/56 L Pulse Oximetry 99 96 02/09/18 04:20 Temperature Pulse Rate Respiratory Rate 16 Blood Pressure Pulse Oximetry 97 Intake & Output 02/08/18 02/09/18 02/09/18 18:59 06:59 18:59 Intake Total 700 / 700 2910.625 / 2910.625 Output Total 1999 Balance -1300 / -1300 810.625 / 810.625 Weight 55.5 kg Intake: IV 700 / 700 301.625 / 301.625 Cordarone Inj 450 MG In D5W Inj 250 / 250 241 ML @ 1 MG/MIN 33.33 mls/hr IV.CONT TITRATE PRN Rx#: [id number] Versed Inj 50 mg In 50 ml @ 2 50 / 50 MG/HR 2 mls/hr IV.CONT TITRATE PRN Rx#:[id number] Primacor Inj 20 MG In NS Inj 80 100 / 100 ML @ Per Protocol IV.CONT .Q0M [facility] Rx#:[id number] Gentamicin Inj 65 MG In NS Inj 101.625 / 101.625 100 ML @ 203 mls/hr IV.SIG Q12H [facility] Rx#:[id number] Zosyn 3.375 GM Premix 50 ML @ 100 / 100 50 / 50 100 mls/hr IV.SIG Q6H [facility] Rx#: [id number] Ancef 2 GM Premix Inj 2 gm In 50 / 50 50 / 50 50 ml @ 100 mls/hr IV.SIG Q8H [facility] Rx#:[id number] fentaNYL 10 mcg/mL Premix Drip 250 / 250 2,500 mcg In 250 ml @ 50 MCG/HR 5 mls/hr IV.SIG TITRATE PRN Rx #:[id number] Tube Feeding 136 / 136 Tube Irrigant 120 / 120 Other 2353 / 2353 Output: Urine Amount (Catheter) 1999 Indwelling Temp Sensing 1999 Catheter Other: Date of Last Bowel Movement 02/04/18 02/09/18 # Bowel Movements 2 Result Diagrams: 02/09/18 05:00 02/08/18 04:12 Objective Remarks: GENERAL: Ill-appearing thin male with temporal wasting, lying in bed, intubated, sedation is held SKIN: cool and poorly perfused. HEAD: Atraumatic. Normocephalic. EYES: Pupils equal and round, 2 mm and reactive. No scleral icterus. No injection or drainage. ENT: No nasal bleeding or discharge. Mucous membranes pink and moist. NECK: Trachea midline. +ve JVD. left SC TLC clean dry and dressing intact. CARDIOVASCULAR: Regular rate and rhythm, currently sinus rhythm on the monitor with rate in the 80s. No murmurs rubs or gallops. on milrinone and Levophed. RESPIRATORY: intubated. fio2 45%. equal chest rise. Bilateral coarse rhonchi and and rales, improved GASTROINTESTINAL: Abdomen soft, non-tender, nondistended. no guarding. VASC: Right radial art line in place with distal perfusion intact. right femoral IABP removed. no evidence of hematoma. distal pulses dopplerable. MUSCULOSKELETAL: Extremities without clubbing, cyanosis. No obvious deformities. NEUROLOGICAL: RASS -2. moves all extremities. no focal deficits. On sedation hold follows commands but weakly Assessment and Plan - Problem List (1) Septic shock Code(s): A41.9 - Sepsis, unspecified organism; R65.21 - Severe sepsis with septic shock Status: Acute (2) Staph aureus infection Code(s): A49.01 - Methicillin susceptible Staphylococcus aureus infection, unspecified site Status: Acute (3) NSTEMI (non-ST elevated myocardial infarction) Code(s): I21.4 - Non-ST elevation (NSTEMI) myocardial infarction Status: Acute (4) Status post mechanical aortic valve replacement Code(s): Z95.2 - Presence of prosthetic heart valve Status: Chronic (5) Chronic anticoagulation Code(s): Z79.01 - roasterman (current) use of anticoagulants Status: Chronic (6) Chronic back pain Code(s): M54.9 - Dorsalgia, unspecified; G89.29 - Other chronic pain Status: Chronic (7) H/O aortic valve replacement Code(s): Z95.2 - Presence of prosthetic heart valve Status: Acute (8) Physical deconditioning Code(s): R53.81 - Other malaise Status: Chronic (9) BPH (benign prostatic hyperplasia) Code(s): N40.0 - Benign prostatic hyperplasia without lower urinary tract symptoms Status: Chronic (10) COPD with hypoxia Code(s): J44.9 - Chronic obstructive pulmonary disease, unspecified; R09.02 - Hypoxemia Status: Chronic - Assessment and Plan Plan: NEURO: History of stroke in 2015 Neuropathy left upper and lower extremity Chronic low back pain Osteopenia Hold all sedation to initiate weaning trials Goal RASS -1 Lortab 10/325 every 4 hours as needed for pain, Morphine as needed for breakthrough pain Continue Lyrica 150 mg p.o. twice daily Hold Cymbalta 90 mg p.o. daily RESP: Acute severe Pulmonary edema Acute hypoxic respiratory failure COPD on 2.5 L home O2 Prior tobacco abuse Albuterol every 2 hours as needed for wheezing. DuoNeb scheduled every 4 hours wean fio2 for goal spo2 > 90% bumex drip, oxygenation slowly improved vent bundle, hob elevated. Start daily spontaneous breathing trials CV: NSTEMI Cardiogenic shock Atrial fibrillation with RVR Acute systolic heart failure [place] mechanical aortic valve (09/21/12 Dr. Gonzalez) s/p Tricuspid annuloplasty Continue Levophed to maintain map greater than 65. bumex drip, continue milrinone infusion 0.375 mcg/kg/min s/p cath And PCI -proximal LAD and large diagonal 90% stenosis, 2 BMS stent 02/05, mid LAD vasospasm post PCI Continue aspirin, heparin drip. PTT therapeutic. Continue Lipitor 40 mg nightly Not a candidate for beta-rasheed or ARETHA inhibitor due to shock Will continue amiodarone for now for rhythm maintenance as AF-RVR contributing to ischemia, further management per cardiology. D/C d IABP 02/08/18 by cardiology CAMERON 01/23/18no evidence of vegetation or thrombus. Normal functioning aortic mechanical valve with trivial aortic insufficiency. Tricuspid annuloplasty. Mild to moderate LV generalized hypokinesis EKG from emergency department demonstrated atrial flutter with rate in the 130s with ST depression in II/III/ F, V4 through V6 Direct Support Professional Home Health is Romana Bartlett in [place]. GI: Trickle feeds with Jevity, hold for weaning trials Protonix for stress ulcer prophylactic Had normal EGD on 10/21/17 FEN/RENAL: BPH Acute kidney injury roberson due to aggressive diuresis. 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 Rifampin added 02/07/2018 by ID after cleared by cardiology Infectious disease following and will defer further antibiotic management to them. Follow-up urine and blood cultures The 2 sets of blood cultures that were obtained in [place] were reportedly drawn from the PICC line. Two peripheral blood cultures were drawn at [facility]-remains negative HEME: Chronic anemia Iron deficiency Continue ferrous sulfate 325 mill grams p.o. daily Received 2 units packed red cells in [place] ER due to anemia and shock. Hgb increased from 9.3 to 12. He does not appear to be actively bleeding, will monitor hgb and consult GI if showing signs of blood loss. ENDO: Euglycemic. PROPH: Heparin drip. Protonix for stress ulcer prophylaxis ACCESS: Right radial art line placed in the emergency department 02/04. Left IJ central line placed 02/05/18. Removed right upper extremity PICC. FULL CODE Patient is critically ill with fever, septic shock, NSTEMI, cardiogenic shock all life threatening without treatment. CCT 35 minutes exclusive of separately billable procedures.
--- NOTE | 2018-02-09 07:28 | XR ---
EXAM DATE: 02/09/2018 7:25 AM EDT AGE/SEX: 62 years / Male INDICATIONS: Respiratory disease CLINICAL DATA: This is the patient's subsequent encounter. Patient reports that signs and symptoms h ave been present for 4 - 6 days and indicates a pain score of Nonresponsive. MEDICAL/SURGICAL HISTORY: Chronic obstructive pulmonary disease. None. COMPARISON: [facility], CHEST 1V SINGLE AP, 02/08/2018. . FINDINGS: Left lung base opacity is present may be due to a combination of consolidation and or pleural effusio n. ET tube is present with tip overlapping approximately 2-3 above the renny. NG tube is present wit h tip in the distal esophagus. Slight right perihilar atelectasis is seen. CONCLUSION: 1. Left lung base opacity is present may be due to a combination of consolidation and or pleural eff usion. 2. The tip of the NG tube is in distal esophagus and is to be advanced. Electronically signed by: Sumit Paniagua MD 02/09/2018 7:27 AM EDT
[2018-02-09 08:08] LABS: Alanine Aminotransferase 64 U/L (12-78); Albumin 2.7 g/dL (3.4-5.0); Anion Gap 10 meq/L (5-15); Aspartate Aminotransferase 279 U/L (15-37); Blood Urea Nitrogen 18 mg/dL (7-18); Calcium 8.4 mg/dL (8.5-10.1); Carbon Dioxide 32.9 meq/L (21.0-32.0); Chloride 93 meq/L (98-107); Glomerular Filtration Rate 40 mL/min (>89); Glucose,Random 109 mg/dL (74-106); Potassium 3.2 meq/L (3.5-5.1); Sodium 136 meq/L (136-145)
[2018-02-09 08:10] LABS: Alkaline Phosphatase 149 U/L (45-117); Total Protein 7.7 g/dL (6.4-8.2)
[2018-02-09] MEDS: Digoxin Inj 500 MCG/2 ML Ampul IV.PUSH SCH (08:16)
[2018-02-09] MEDS: Ferrous Sulfate 325 MG Tablet PO SCH (08:18)
[2018-02-09] MEDS: Chlorhexidine 0.12% Oral Kit 15 ML UDC OROPHARYNG SCH ×2 (08:19→21:59)
[2018-02-09] MEDS: Beneprotein Powder Packet G-TUBE SCH ×3 (09:09→18:25)
[2018-02-09] MEDS: Potassium Chlor 20 mEq Premix 20 MEQ/100 ML PIGGYBACK IV.SIG PRN ×4 (09:41→16:56)
[2018-02-09] MEDS ORDERED: Midazolam Inj 5 MG/ML 1 ML Vial ONE ×2 (11:14→11:33)
[2018-02-09 11:25] LABS: ABG Base Excess 9.3 mmol/L (-2-2); ABG PCO2 49 mmHg (38-42); ABG PO2 150 mmHG (61-120)
--- NOTE | 2018-02-09 11:52 | P.PCN ---
Date of procedure: 02/09/18 Pre-op diagnosis: Cardiac arrest/ Vifb Post-op diagnosis: same Procedure: CPR Note: I responded to code blue or V Fib arrest. Chest compressions started, patient shocked with 200 J DCCV. There was ROSC, amiodarone 150 mg IV bolus given and gtt was continued. Patient developed VTAC with loss of pulse appeared Torsade, 2 GM of IV Magnesium given followed another 150 mg IV Amiodarone and amiodarone increased to 1mg/min. Milrinone reduced to 0.25 mcg/kg/min, Levophed increased to 3 mcg/min to maintain MAP>65. There was ROSC, but had to be shocked a third time for V TAC. Patient also received 0.5 mg Epi IV, 1 amp of bicarb. Placed back on PRVC after ROSC. Became hypoxemic. Vent adjustments made, CXR pending. Prognosis poor. Surgeon: Annika Spears Estimated blood loss (mL): 0 Pathology: none sent Condition: critical Disposition: ICU
--- NOTE | 2018-02-09 12:24 | XR ---
EXAM DATE: 02/09/2018 12:09 PM EDT AGE/SEX: 62 years / Male INDICATIONS: Shortness of breath. CLINICAL DATA: This is the patient's subsequent encounter. Patient reports that signs and symptoms h ave been present for 4 - 6 days and indicates a pain score of Nonresponsive. MEDICAL/SURGICAL HISTORY: . Chronic obstructive pulmonary disease. CABG. COMPARISON: [facility] [place], CHEST 1V SINGLE AP, 02/09/2018. . FINDINGS: Mild but fairly diffuse patchy parenchymal opacities seen of both lungs and with small bilateral pleu ral effusions, all not significantly changed. Don't see a pneumothorax. Heart size stable, within normal limits. Median sternotomy and valve replacement changes are again no adelaida. Endotracheal tube tip is approximately 4 cm above the renny. Nasogastric tube has been advanced, now in the stomach. There is a left internal jugular central venous catheter with tip in the atriocaval junction again seen. CONCLUSION: Nasogastric tube has been advanced into the stomach. Otherwise no significant change; bilateral airsp venu opacities and small effusions persist. Electronically signed by: Regan Hill MD 02/09/2018 12:23 PM EDT
--- NOTE | 2018-02-09 12:43 | P.PNID ---
Subjective Remarks: coded today Runs of Vtach, followed by Vfib No fever NO secretions Weaned down to 1.5 mcgs of Levaphed Antibiotics: zosyn cefazolin gent Allergies/Adverse Reactions: Allergies No Known Allergies Allergy (Verified 02/04/18 18:10) Objective Vital Signs 02/08/18 12:41 02/08/18 15:00 02/08/18 15:36 Temperature 98.6 F Pulse Rate 85 Respiratory Rate 16 16 16 Blood Pressure 110/40 L Pulse Oximetry 97 94 L 94 L 02/08/18 19:00 02/08/18 19:46 02/08/18 20:00 Temperature 98.1 F Pulse Rate 82 Respiratory Rate 16 16 Blood Pressure 109/60 Pulse Oximetry 99 95 99 02/08/18 23:00 02/09/18 00:27 02/09/18 03:00 Temperature 99 F 100 F H Pulse Rate 77 93 H Respiratory Rate 16 16 16 Blood Pressure 130/59 L 97/56 L Pulse Oximetry 99 96 02/09/18 04:20 02/09/18 08:39 02/09/18 09:30 Temperature Pulse Rate Respiratory Rate 16 10 L 9 L Blood Pressure Pulse Oximetry 97 92 L 96 02/09/18 11:15 02/09/18 11:50 02/09/18 11:56 Temperature Pulse Rate 105 H Respiratory Rate 18 14 14 Blood Pressure Pulse Oximetry 100 88 L Intake & Output 02/08/18 02/09/18 02/09/18 18:59 06:59 18:59 Intake Total 800 / 800 3100.625 / 3100.625 250 / 250 Output Total 1999 / 1999 2100 / 2100 Balance -1200 / -1200 1000.625 / 1000.625 250 / 250 Weight 55.5 kg Intake: IV 800 / 800 491.625 / 491.625 250 / 250 Cordarone Inj 450 MG In D5W Inj 250 / 250 250 / 250 241 ML @ 1 MG/MIN 33.33 mls/hr IV.CONT TITRATE PRN Rx#: [id number] Versed Inj 50 mg In 50 ml @ 2 50 / 50 MG/HR 2 mls/hr IV.CONT TITRATE PRN Rx#:[id number] Primacor Inj 20 MG In NS Inj 80 100 / 100 ML @ Per Protocol IV.CONT .Q0M COUNTS INCLUDE 234 BEDS AT THE [facility] Rx#:[id number] Gentamicin Inj 65 MG In NS Inj 101.625 / 101.625 100 ML @ 203 mls/hr IV.SIG Q12H COUNTS INCLUDE 234 BEDS AT THE [facility] Rx#:[id number] Levophed-Dextrose 4 mg/250 ml 140 / 140 Drip 4 mg In 250 ml @ 2 MCG/MIN 7.5 mls/hr IV.SIG TITRATE PRN Rx#:[id number] Zosyn 3.375 GM Premix 50 ML @ 100 / 100 100 / 100 100 mls/hr IV.SIG Q6H COUNTS INCLUDE 234 BEDS AT THE [facility] Rx#: [id number] KCl 20 mEq Premix Inj 20 meq In 100 / 100 100 ml @ 50 mls/hr IV.SIG Q2H PRN Rx#:[id number] Ancef 2 GM Premix Inj 2 gm In 50 / 50 50 / 50 50 ml @ 100 mls/hr IV.SIG Q8H COUNTS INCLUDE 234 BEDS AT THE [facility] Rx#:[id number] fentaNYL 10 mcg/mL Premix Drip 250 / 250 2,500 mcg In 250 ml @ 50 MCG/HR 5 mls/hr IV.SIG TITRATE PRN Rx #:[id number] Tube Feeding 136 / 136 Tube Irrigant 120 / 120 Other 2353 / 2353 Output: Urine Amount (Catheter) 1999 Indwelling Temp Sensing 1999 Catheter Other: Date of Last Bowel Movement 02/04/18 02/09/18 # Bowel Movements 2 02/05/18 00:42 Blood - Peripheral Aerobic Blood Culture - Preliminary No growth in 4 days 02/05/18 00:42 Blood - Peripheral Anaerobic Blood Culture - Preliminary No growth in 4 days 02/05/18 00:12 Blood - Peripheral Aerobic Blood Culture - Preliminary No growth in 4 days 02/05/18 00:12 Blood - Peripheral Anaerobic Blood Culture - Preliminary No growth in 4 days 02/06/18 14:00 Sputum - Endotracheal Gram Stain - Final 02/06/18 14:00 Sputum - Endotracheal Sputum Culture - Final Moderate growth normal respiratory ursula Lab - Hematology Results 02/08/18 02/09/18 04:12 05:00 WBC 10.2 9.4 RBC 3.79 L 3.80 L Hgb 11.3 L 11.4 L Hct 34.2 L 34.3 L MCV 90.4 90.2 MCH 29.9 30.0 MCHC 33.1 33.2 RDW 16.8 16.3 Plt Count 414 366 MPV 8.6 8.1 Neut % (Auto) 80.9 H 80.5 H Lymph % (Auto) 7.1 L 6.6 L [place] % (Auto) 9.4 H 10.7 H Eos % (Auto) 1.6 1.3 Baso % (Auto) 1.0 0.9 Neut # (Auto) 8.2 H 7.6 Lymph # (Auto) 0.7 L 0.6 L [place] # (Auto) 1.0 H 1.0 H Eos # (Auto) 0.2 0.1 Baso # (Auto) 0.1 0.1 WBC Differential . . Differential Comment Auto diff final Auto diff final Lab - Chemistry Results 02/07/18 02/07/18 02/08/18 15:59 23:32 04:12 Sodium 140 138 137 Potassium 3.3 L 2.9 L* 3.6 Chloride 101 97 L 96 L Carbon Dioxide 31.8 30.5 31.2 Anion Gap 7 11 10 BUN 19 H 16 16 Creatinine 1.43 H 1.37 H 1.35 H Estimated GFR 50 L 52 L 53 L Random Glucose 140 H 142 H 131 H Calcium 8.2 L 8.2 L 8.7 Total Bilirubin 0.9 AST 317 H ALT 187 H Alkaline Phosphatase 131 H Total Protein 7.5 Albumin 2.4 L 02/09/18 07:37 Sodium 136 Potassium 3.2 L Chloride 93 L Carbon Dioxide 32.9 H Anion Gap 10 BUN 18 Creatinine 1.72 H Estimated GFR 40 L Random Glucose 109 H Calcium 8.4 L Total Bilirubin 0.7 AST 279 H ALT 64 Alkaline Phosphatase 149 H Total Protein 7.7 Albumin 2.7 L Imaging: ITS Impressions Abdomen/Bladder Ultrasound 02/05/18 00:00 CONCLUSION: 1. No evidence of hydronephrosis. 2. The echogenicity of the kidneys is equal to that of the liver which can be seen with medical renal disease. 3. Simple cyst in right kidney. 4. Suboptimal visualization of the left kidney. 5. Small amount of free fluid along the spleen. This could represent an adjacent pleural effusion. Chest X-Ray 02/09/18 07:06 CONCLUSION: Physical Exam: GENERAL: sedated intubated on vent and baloon pump; seen tight after the code SKIN: Warm and dry. HEAD: Atraumatic. Normocephalic. EYES: Pupils equal and round. No scleral icterus. No injection or drainage. ENT: No nasal bleeding or discharge. Mucous membranes pink and moist. NECK: Trachea midline. No JVD. CARDIOVASCULAR: Regular rate and rhythm. Mecahnical ballon pump sounds + diastolic blowing murmur on aortic valve point 1-2/6 today RESPIRATORY: No accessory muscle use. b/l rales to auscultation. Breath sounds equal bilaterally. GASTROINTESTINAL: Abdomen soft, non-tender, nondistended. Hepatic and splenic margins not palpable. : roberson in place with good amount of urine MUSCULOSKELETAL: Extremities without clubbing, cyanosis, or edema. No obvious deformities. warmt o cool to touch feet NEUROLOGICAL: sedated, eyes closed not following commands PSYCHIATRIC:unable to assess Assessment and Plan - Plan Sepsis ? PICC line - removed Previous MSSA sepsis with presumed PVE of aortic valve prosthesis, on treatment - tx included vanco+ gent w/o rifampin DOubt UTI Resp insufficiency, CHF EF < 20 % sp MN troponin peaked @ 32 change vanco to cefaZOline as a part of PVE Rx dc vanco cont zosyn cont gentamycin' will not add rifampin while on amio 2/2 interaction with amiodarone dc azithro monitor blood clx monitor urine clx obtain sputum clx dc zosyzahida stewart RN pat Spears
[2018-02-09] MEDS: Midazolam 50 MG/50 ML Inj 50 MG/50 ML BAG IV.CONT PRN ×2 (12:51→21:56)
[2018-02-09] MEDS: Milrinone Inj 20 MG in Sodium Chlor 0.9% Inj 80 ML IV.CONT SCH (13:51)
--- NOTE | 2018-02-09 16:03 | XR ---
EXAM DATE: 02/09/2018 3:59 PM EDT AGE/SEX: 62 years / Male INDICATIONS: F/u shadow in the left lung. CLINICAL DATA: This is the patient's initial encounter. Patient reports that signs and symptoms have been present for 2 days and indicates a pain score of Nonresponsive. MEDICAL/SURGICAL HISTORY: Chronic obstructive pulmonary disease. CABG. COMPARISON: [facility], CHEST 1V SINGLE AP, 02/09/2018. . FINDINGS: Support lines and tubes are in satisfactory position. There is elevation of the right hemidiaphragm. There is bilateral lower lobe atelectasis versus pneumonia. There has been no significant change whe n compared to the prior exam. CONCLUSION: Bilateral lower lobe atelectasis versus pneumonia. There has been no significant change when compared to the prior exam. Electronically signed by: Dejon Mcclure MD 02/09/2018 4:02 PM EDT
[2018-02-09 16:58] LABS: Alanine Aminotransferase 48 U/L (12-78); Albumin 2.4 g/dL (3.4-5.0); Anion Gap 9 meq/L (5-15); Aspartate Aminotransferase 281 U/L (15-37); Blood Urea Nitrogen 21 mg/dL (7-18); Calcium 8.1 mg/dL (8.5-10.1); Chloride 92 meq/L (98-107); Glomerular Filtration Rate 36 mL/min (>89); Glucose,Random 153 mg/dL (74-106); Magnesium 1.7 mg/dL (1.5-2.5); Potassium 4.1 meq/L (3.5-5.1); Sodium 135 meq/L (136-145)
[2018-02-09 17:00] LABS: Alkaline Phosphatase 149 U/L (45-117); Total Protein 7.6 g/dL (6.4-8.2)
[2018-02-09] MEDS: fentaNYL 10 mcg/mL Premix Drip 2,500 MCG/250 ML BAG IV.SIG PRN (17:17)
[2018-02-09] MEDS ORDERED: Magnesium Sulfate Inj 4 GM in Sodium Chlor 0.9% Inj 92 ML IV.SIG ONE ×2 (18:01→19:00)
--- NOTE | 2018-02-09 21:37 | P.PNCA ---
Subjective Interval history: Vfib arrest this morning, K level 2.9 prior. Successful resuscitated, back to sinus rhythm. NO further event since Physical Exam Vital signs: Vital Signs 02/08/18 23:00 02/09/18 00:27 02/09/18 03:00 Temperature 99 F 100 F H Pulse Rate 77 93 H Respiratory Rate 16 16 16 Blood Pressure 130/59 L 97/56 L Pulse Oximetry 99 96 02/09/18 04:20 02/09/18 07:00 02/09/18 08:39 Temperature 98.5 F Pulse Rate 89 Respiratory Rate 16 16 10 L Blood Pressure 98/51 L Pulse Oximetry 97 96 92 L 02/09/18 09:30 02/09/18 11:00 02/09/18 11:15 Temperature 98.4 F Pulse Rate 70 Respiratory Rate 9 L 12 18 Blood Pressure 110/50 L Pulse Oximetry 96 95 100 02/09/18 11:50 02/09/18 11:56 02/09/18 15:00 Temperature 98.9 F Pulse Rate 105 H 70 Respiratory Rate 14 14 14 Blood Pressure 108/55 L Pulse Oximetry 88 L 97 02/09/18 18:25 02/09/18 21:20 Temperature Pulse Rate 76 Respiratory Rate 14 15 Blood Pressure Pulse Oximetry 97 Intake & Output 02/09/18 02/09/18 02/10/18 06:59 18:59 06:59 Intake Total 3500.625 / 3500.625 700 / 700 Output Total 2100 / 2100 850 / 850 Balance 1400.625 / 1400.625 -150 / -150 Weight 55.5 kg Intake: IV 891.625 / 891.625 700 / 700 Cordarone Inj 450 MG In D5W Inj 250 / 250 241 ML @ 1 MG/MIN 33.33 mls/hr IV.CONT TITRATE PRN Rx#: [id number] Versed Inj 50 mg In 50 ml @ 2 50 / 50 MG/HR 2 mls/hr IV.CONT TITRATE PRN Rx#:[id number] Primacor Inj 20 MG In NS Inj 80 100 / 100 100 / 100 ML @ Per Protocol IV.CONT .Q0M [facility] Rx#:[id number] Gentamicin Inj 65 MG In NS Inj 201.625 / 201.625 100 ML @ 203 mls/hr IV.SIG Q12H [facility] Rx#:[id number] Levophed-Dextrose 4 mg/250 ml 140 / 140 Drip 4 mg In 250 ml @ 2 MCG/MIN 7.5 mls/hr IV.SIG TITRATE PRN Rx#:[id number] Zosyn 3.375 GM Premix 50 ML @ 100 / 100 100 mls/hr IV.SIG Q6H [facility] Rx#: [id number] KCl 20 mEq Premix Inj 20 meq In 300 / 300 100 ml @ 50 mls/hr IV.SIG Q2H PRN Rx#:[id number] Ancef 2 GM Premix Inj 2 gm In 100 / 100 50 ml @ 100 mls/hr IV.SIG Q8H [facility] Rx#:[id number] fentaNYL 10 mcg/mL Premix Drip 250 / 250 2,500 mcg In 250 ml @ 50 MCG/HR 5 mls/hr IV.SIG TITRATE PRN Rx #:[id number] Tube Feeding 136 / 136 Tube Irrigant 120 / 120 Other 2353 / 2353 Output: Urine Amount (Catheter) 2099 650 / 650 Indwelling Temp Sensing 2099 / 2099 650 / 650 Catheter Gastric Drainage 200 / 200 Oral 200 / 200 Other: Date of Last Bowel Movement 02/09/18 02/09/18 # Bowel Movements 2 - Constitutional Comments: Sedated on ventilator - Routine Neck Exam Present: JVD - Routine Respiratory Exam Present: patient mechanically ventilated - Routine Cardiovascular Exam Present: RRR, S1, S2 - Routine Abdominal Exam Present: soft, normoactive bowel sounds Comments: OGT feeding - Routine Extremities Exam Absent: edema Comments: right groin soft, no hematoma - Routine Skin Exam Present: intact - Routine Neurological Exam sedated on ventilator - Urinary Catheter Management Indwelling Temp Sensing Catheter Cath placed during this visit: yes Reason for continuing: Hourly intake/output Insertion date: 02/05/18 Insertion time: 17:35 Assessment and Plan - Assessment (1) Cardiogenic shock Code(s): R57.0 - Cardiogenic shock Status: Acute (2) Bacteremia Code(s): R78.81 - Bacteremia Status: Acute (3) NSTEMI (non-ST elevated myocardial infarction) Code(s): I21.4 - Non-ST elevation (NSTEMI) myocardial infarction Status: Acute (4) Status post mechanical aortic valve replacement Code(s): Z95.2 - Presence of prosthetic heart valve Status: Chronic (5) COPD with hypoxia Code(s): J44.9 - Chronic obstructive pulmonary disease, unspecified; R09.02 - Hypoxemia Status: Chronic (6) Ventricular fibrillation Code(s): I49.01 - Ventricular fibrillation Status: Acute - Plan 1. Cardiogenic shock, LVEF 20% by 02/05/18 Echo. IABP placed 02/05/18, removed . on Milrinone drip. Bumix drip. Clinically improving. CxR showed improving pulmonary edema Vfib Arrest 02/09/2018, likely due to severe CMP and severe hypokalemia. daily mg and K level. Keep K level >4 and Mg level > 2 if possible. Initiate BBK if BP can tolerate. Continue Amiodarone. 2. CAD. NSTEMI, Proximal LAD and large diagonal 90% stenosis, stented with 2 BMS stent 02/05/18. 3. Respiratory failure due to pulmonary edema, intubated 02/05/18 4. Afib RVR, ON IV amiodarone. ON IV Digoxin. HR in 80s. 5. Anemia, stable after transfusion 7. Sepsis, on Abx 8. hx of AVR on AC. CAMERON last week showed normal prosthesis function, trace AR. IV Heparin. I did talk to his on phone, updated current condition to her.
[2018-02-09 23:59] LABS: Calcium 8.4 mg/dL (8.5-10.1); Carbon Dioxide 30.7 meq/L (21.0-32.0); Potassium 3.7 meq/L (3.5-5.1)
[2018-02-10 00:47] LABS: ABG Base Excess 10.5 mmol/L (-2-2); ABG PCO2 37 mmHg (38-42); ABG PO2 54 mmHg (61-120)
[2018-02-10] MEDS: Midazolam 50 MG/50 ML Inj 50 MG/50 ML BAG IV.CONT PRN ×3 (03:25→22:07)
[2018-02-10] MEDS: Oral Hygiene Kit OROPHARYNG SCH ×4 (03:27→18:29)
[2018-02-10] MEDS: Milrinone Inj 20 MG in Sodium Chlor 0.9% Inj 80 ML IV.CONT SCH ×2 (04:43→17:54)
[2018-02-10] MEDS ORDERED: Magnesium Sulfate Inj 40 MEQ/10 ML Vial IV.SIG ONE (05:00)
[2018-02-10] MEDS ORDERED: Sodium Bicarbonate 8.4% Inj 50 MEQ/50 ML Syringe IV.CONT ONE (05:00)
[2018-02-10] MEDS ORDERED: Pharmacy Ordered Lab Info OTHER ONE (05:45)
[2018-02-10] MEDS: GENTAMICIN IV.SIG SCH (05:47)
[2018-02-10] MEDS: SODIUM CHLOR 0.9% IV.SIG SCH (05:47)
[2018-02-10] MEDS: ceFAZolin 2 GM Premix Inj 2 GM/50 ML PIGGYBACK IV.SIG SCH ×2 (05:48→14:31)
[2018-02-10] MEDS: Heparin Drip 25,000 UNIT/250 ML BAG IV.CONT PRN (05:49)
--- NOTE | 2018-02-10 05:58 | XR ---
EXAM DATE: 02/10/2018 5:54 AM EDT AGE/SEX: 62 years / Male INDICATIONS: Shortness of breath. Possible pulmonary disease. CLINICAL DATA: This is the patient's subsequent encounter. Patient reports that signs and symptoms h ave been present for 4 - 6 days and indicates a pain score of Nonresponsive. MEDICAL/SURGICAL HISTORY: Chronic obstructive pulmonary disease. CABG. COMPARISON: [facility], CHEST 1V SINGLE AP, 02/09/2018. . FINDINGS: Stable ETT and NGT coursing beyond the GE junction with tip omitted from the image. Persistent bilate ral lower lobe airspace disease and likely trace pleural fluid. Cardiomediastinal contours are stable . Remainder of the exam is unchanged. CONCLUSION: 1. No significant interval change. 2. Stable bilateral lower lobe airspace disease with trace pleural effusions. Electronically signed by: Danilo Perry MD 02/10/2018 5:56 AM EDT
[2018-02-10 06:13] LABS: Activated Partial Thrombo Time 49.2 sec (24.3-30.1); INR 1.4 Ratio; Prothrombin Time 13.8 sec (9.8-11.6)
[2018-02-10 06:18] LABS: Baso % (Auto) 0.3 % (0.0-2.0); Eos % (Auto) 0.2 % (0.0-4.0); Hematocrit 33.2 % (39.0-51.0); Hemoglobin 11.2 gm/dL (13.0-17.0); Lymph # (Auto) 0.7 th/mm3 (1.0-4.8); Lymph % (Auto) 6.6 % (9.0-44.0); Mean Corpuscular HGB Conc 33.8 % (32.0-36.0); Mean Corpuscular Hemoglobin 30.4 pg (27.0-34.0); Mean Corpuscular Volume 89.9 fL (80.0-100.0); Mean Platelet Volume 8.5 fL (7.0-11.0); Mono # (Auto) 1.1 th/mm3 (0.0-0.9); Mono % (Auto) 10.7 % (0.0-8.0); Neut # (Auto) 8.6 th/mm3 (1.8-7.7); Neut % (Auto) 82.2 % (16.0-70.0); Platelet Count 341 th/mm3 (150-450); Red Cell Distribution Width 16.2 % (11.6-17.2); White Blood Count 10.5 th/mm3 (4.0-11.0)
[2018-02-10 06:31] LABS: Albumin 2.2 g/dL (3.4-5.0); Anion Gap 12 meq/L (5-15); Aspartate Aminotransferase 157 U/L (15-37); Blood Urea Nitrogen 23 mg/dL (7-18); Calcium 8.3 mg/dL (8.5-10.1); Carbon Dioxide 31.2 meq/L (21.0-32.0); Chloride 92 meq/L (98-107); Glomerular Filtration Rate 36 mL/min (>89); Glucose,Random 128 mg/dL (74-106); Magnesium 2.7 mg/dL (1.5-2.5); Potassium 3.3 meq/L (3.5-5.1); Sodium 135 meq/L (136-145)
[2018-02-10 06:32] LABS: Alanine Aminotransferase 24 U/L (12-78)
[2018-02-10 06:35] LABS: Alkaline Phosphatase 126 U/L (45-117); Gentamicin,Trough 2.1 mcg/mL (0.0-2.0); Total Protein 7.6 g/dL (6.4-8.2)
--- NOTE | 2018-02-10 08:00 | P.PNCC ---
Subjective Subjective Remarks/Hospital Course: 62-year-old male with past medical history of [place] mechanical aortic valve (09/21/12 Dr. Gonzalez), on chronic anticoagulation with warfarin, atrial fibrillation postop from AVR , COPD on 2.5 L home O2, stroke in 2015 resulting in left-sided sensory deficits and neuropathy, osteoporosis with chronic low back pain. He was recently admitted to [facility] from 01/23 through 01/31/18 for MSSA bacteremia. It is believed that the original source of infection was a wound on his right index finger when electric drill slipped and created a puncture wound. He was discharged with right upper extremity PICC line receiving cefazolin 2 g IV every 8 hours and gentamicin 210 mg IV daily. He states that home health administered antibiotics at 17:00 and shortly thereafter he began having chills and rigors and sought medical attention at [facility]. He had no rash. Upon arrival, he was hypotensive in the low 80s. He was given 2 L S bolus but remained hypotensive so was started on Levophed. He then developed heart rate in the 140s, reportedly atrial flutter so he was started on Amiodarone drip in [place] and converted to sinus rhythm. He was transfused 2 units PRBC due to Hgb 9.3. His stool was nonbloody nonmelena but was Hemoccult positive. He was given zosyn and vancomycin. Critical care medicine was then contacted and accepted patient for transfer to [facility]. He denies tenderness/redness/drainage at PICC site. Aside from mechanical aortic valve, he has no other hardware or indwelling devices. He denies headache, cough, dysuria. He has had a few loose stools at home, but stools have sometimes been formed. He denies chest pain, does report some SOB. EKG at [place] had marked inferolateral ischemic changes. Obtained EKG upon arrival to [facility] which is improved. SUBJ 02/05: Patient remains critical ill appearing, complaints of chest tightness but denies pain. Remains on 8 mcg/min of Levophed to maintain map about 65. However increasing shortness of breath. Chest x-ray shows increasing pulmonary edema. Troponin was 27.5 currently on IV heparin therapeutic. Cardiology consult is pending at this time. I will stop on maintenance fluids give 40 mg IV Lasix and IV albumin 25 g 1. 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 IABP placed. patient emergently intubated for acute hypoxic respiratory failure secondary to cardiogenic shock and pulmonary edema. started on milrinone at 0.375 mcg/kg/min and levophed. bumex drip started. remains critically ill. 02/07: Remains critically ill remains on Levophed and milrinone. Currently diuresing well with Bumex drip. IABP in place management per cardiology-good waveform and augmentation. Chest x-ray shows adequate positioning of IABP, diffuse bilateral pulmonary edema 02/08: Remains critical but showing some signs of improvement. Diuresing very well on Bumex infusion. Remains on Levophed and milrinone. IABP one-to-one with good augmentation management per cardiology. Chest x-ray shows improving edema but with persistent bilateral effusions. Will initiate weaning trials if tolerated 02/09: Still remains on pressors, unable to wean Levophed below 2 mcg/min. Milrinone currently on 0.375 mcg/kg/min. IABP removed yesterday. On sedation hold patient wakes up but remains lethargic. Weakly squeezes hand. Urine output excellent on Bumex, 4 L output in 24 hours. Will attempt CPAP today 02/10: Multiple episodes of V. fib V. tach arrest yesterday morning. Successfully resuscitated. Yesterday night had two-minute V. fib arrest return of spontaneous circulation in sinus rhythm after DC cardioversion 1. Currently remains on milrinone and low-dose Levophed. I will try to wean off Levophed introduce low-dose beta-rasheed due to recurrent arrhythmia. Keep potassium more than 4 magnesium more than 2 Objective Vital Signs / I&O: Vital Signs 02/09/18 08:39 02/09/18 09:30 02/09/18 11:00 Temperature 98.4 F Pulse Rate 70 Respiratory Rate 10 L 9 L 12 Blood Pressure 110/50 L Pulse Oximetry 92 L 96 95 02/09/18 11:15 02/09/18 11:50 02/09/18 11:56 Temperature Pulse Rate 105 H Respiratory Rate 18 14 14 Blood Pressure Pulse Oximetry 100 88 L 02/09/18 15:00 02/09/18 18:25 02/09/18 19:00 Temperature 98.9 F 99.8 F H Pulse Rate 70 82 Respiratory Rate 14 14 14 Blood Pressure 108/55 L 126/60 Pulse Oximetry 97 93 L 02/09/18 21:20 02/09/18 23:00 02/09/18 23:50 Temperature 98.5 F Pulse Rate 76 75 74 Respiratory Rate 15 14 Blood Pressure 137/51 L Pulse Oximetry 97 91 L 02/10/18 00:10 02/10/18 00:57 02/10/18 03:00 Temperature 99.3 F Pulse Rate 75 Respiratory Rate 14 14 Blood Pressure 136/55 L Pulse Oximetry 89 L 92 L 92 L 02/10/18 03:45 02/10/18 03:50 02/10/18 05:05 Temperature Pulse Rate 73 74 Respiratory Rate 18 Blood Pressure Pulse Oximetry 94 L Intake & Output 02/09/18 02/10/18 02/10/18 18:59 06:59 18:59 Intake Total 1000 / 1000 800 / 800 Output Total 850 / 850 Balance 150 / 150 800 / 800 Weight 55.5 kg Intake: IV 1000 / 1000 800 / 800 Cordarone Inj 450 MG In D5W Inj 250 / 250 500 / 500 241 ML @ 1 MG/MIN 33.33 mls/hr IV.CONT TITRATE PRN Rx#: [id number] Heparin/D5W 25,000 U/250 mL 25, 250 / 250 000 unit In 250 ml @ 800 UNITS/ HR 8 mls/hr IV.CONT TITRATE PRN Rx#:[id number] Versed Inj 50 mg In 50 ml @ 2 50 / 50 100 / 100 MG/HR 2 mls/hr IV.CONT TITRATE PRN Rx#:[id number] Primacor Inj 20 MG In NS Inj 80 100 / 100 100 / 100 ML @ Per Protocol IV.CONT .Q0M ADRIEN Rx#:[id number] Gentamicin Inj 65 MG In NS Inj 100 / 100 100 ML @ 203 mls/hr IV.SIG Q12H ADRIEN Rx#:[id number] KCl 20 mEq Premix Inj 20 meq In 300 / 300 100 ml @ 50 mls/hr IV.SIG Q2H PRN Rx#:[id number] Ancef 2 GM Premix Inj 2 gm In 50 / 50 0 / 0 50 ml @ 100 mls/hr IV.SIG Q8H ADRIEN Rx#:[id number] Output: Urine Amount (Catheter) 650 / 650 Indwelling Temp Sensing 650 / 650 Catheter Gastric Drainage 200 / 200 Oral 200 / 200 Other: Date of Last Bowel Movement 02/09/18 02/09/18 Result Diagrams: 02/10/18 05:35 02/10/18 05:35 Objective Remarks: GENERAL: Ill-appearing thin male with temporal wasting, lying in bed, intubated, sedated with Versed SKIN: cool and poorly perfused. HEAD: Atraumatic. Normocephalic. EYES: Pupils equal and round, 2 mm and reactive. No scleral icterus. No injection or drainage. ENT: No nasal bleeding or discharge. Mucous membranes pink and moist. NECK: Trachea midline. +ve JVD. left SC TLC clean dry and dressing intact. CARDIOVASCULAR: Regular rate and rhythm, currently sinus rhythm on the monitor with rate in the 80s. No murmurs rubs or gallops. on milrinone and Levophed. RESPIRATORY: intubated. fio2 100%. equal chest rise. Bilateral coarse rhonchi and and rales, at bases GASTROINTESTINAL: Abdomen soft, non-tender, nondistended. no guarding. VASC: Right radial art line in place with distal perfusion intact. right femoral IABP removed. no evidence of hematoma. distal pulses dopplerable. MUSCULOSKELETAL: Extremities without clubbing, cyanosis. No obvious deformities. NEUROLOGICAL: RASS -2. moves all extremities. no focal deficits. Heavy sedation limits exam Assessment and Plan - Problem List (1) Septic shock Code(s): A41.9 - Sepsis, unspecified organism; R65.21 - Severe sepsis with septic shock Status: Acute (2) Staph aureus infection Code(s): A49.01 - Methicillin susceptible Staphylococcus aureus infection, unspecified site Status: Acute (3) NSTEMI (non-ST elevated myocardial infarction) Code(s): I21.4 - Non-ST elevation (NSTEMI) myocardial infarction Status: Acute (4) Status post mechanical aortic valve replacement Code(s): Z95.2 - Presence of prosthetic heart valve Status: Chronic (5) Chronic anticoagulation Code(s): Z79.01 - detention (current) use of anticoagulants Status: Chronic (6) Chronic back pain Code(s): M54.9 - Dorsalgia, unspecified; G89.29 - Other chronic pain Status: Chronic (7) H/O aortic valve replacement Code(s): Z95.2 - Presence of prosthetic heart valve Status: Acute (8) Physical deconditioning Code(s): R53.81 - Other malaise Status: Chronic (9) BPH (benign prostatic hyperplasia) Code(s): N40.0 - Benign prostatic hyperplasia without lower urinary tract symptoms Status: Chronic (10) COPD with hypoxia Code(s): J44.9 - Chronic obstructive pulmonary disease, unspecified; R09.02 - Hypoxemia Status: Chronic - Assessment and Plan Plan: NEURO: History of stroke in 2015 Neuropathy left upper and lower extremity Chronic low back pain Osteopenia Keep heavily sedated with Versed and fentanyl for vent synchrony due to severe hypoxemia Goal RASS -3 Lortab 10/325 every 4 hours as needed for pain, Morphine as needed for breakthrough pain Continue Lyrica 150 mg p.o. twice daily. Hold Cymbalta 90 mg p.o. daily RESP: Acute severe Pulmonary edema Acute hypoxic respiratory failure COPD on 2.5 L home O2 Prior tobacco abuse Severely hypoxemic now with 100% FiO2 PEEP of [address] of the chest Albuterol every 2 hours as needed for wheezing. DuoNeb scheduled every 4 hours Add steroids for probable COPD exacerbation wean fio2 for goal spo2 > 90% vent bundle, hob elevated. No spontaneous breathing trials due to severe hypoxemia CV: V. tach/V. fib arrest NSTEMI Cardiogenic shock Atrial fibrillation with RVR Acute systolic heart failure [facility] [place] mechanical aortic valve (09/21/12 Dr. Gonzalez) s/p Tricuspid annuloplasty Continue Levophed to maintain map greater than 65. continue milrinone infusion 0.25 mcg/kg/min Continue amiodarone infusion, and low-dose beta blockers for antiarrhythmic effect despite being on pressors, attempt wean to DC Levophed s/p cath And PCI -proximal LAD and large diagonal 90% stenosis, 2 BMS stent 02/05, mid LAD vasospasm post PCI Continue aspirin, heparin drip. PTT therapeutic. Continue Lipitor 40 mg nightly D/Cd IABP 02/08/18 by cardiology [place] 01/23/18no vegetation. Normal aortic mechanical valve with trivial aortic insufficiency. Tricuspid annuloplasty. Mild to moderate LV generalized hypokinesis EKG from emergency department demonstrated atrial flutter with rate in the 130s with ST depression in II/III/ F, V4 through V6 Regulatory Compliance Officer is Romana Bartlett in [facility]. Continue Bumex 1 mg every 8 hours GI: Trickle feeds with Jevity, hold for weaning trials Protonix for stress ulcer prophylactic Had normal EGD on 10/21/17 FEN/RENAL: BPH Acute kidney injury roberson due to aggressive diuresis. 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 Infectious disease following and will defer further antibiotic management to them. Follow-up urine and blood cultures The 2 sets of blood cultures that were obtained in [place] were reportedly drawn from the PICC line. Two peripheral blood cultures were drawn at [facility]-remains negative HEME: Chronic anemia Iron deficiency Continue ferrous sulfate 325 mill grams p.o. daily Received 2 units packed red cells in [place] ER due to anemia and shock. He does not appear to be actively bleeding, will monitor hgb and consult GI if showing signs of blood loss. ENDO: Euglycemic. PROPH: Heparin drip. Protonix for stress ulcer prophylaxis ACCESS: Right radial art line placed in the emergency department 02/04. Left IJ central line placed 02/05/18. Removed right upper extremity PICC. FULL CODE Patient is critically ill with fever, septic shock, NSTEMI, cardiogenic shock all life threatening without treatment. Now he is having recurrent V. fib/V. tach cardiac arrest. 4 times ventricular arrhythmia and cardiac arrest the last 24 hours. Prognosis appears very poor. I have updated yesterday about high risk of mortality. Will consult palliative care CCT 45 minutes exclusive of separately billable procedures.
[2018-02-10] MEDS: Potassium Chlor 20 mEq Premix 20 MEQ/100 ML PIGGYBACK IV.SIG PRN ×2 (08:10→13:06)
[2018-02-10] MEDS: Digoxin Inj 500 MCG/2 ML Ampul IV.PUSH SCH (08:15)
[2018-02-10] MEDS: Ferrous Sulfate 325 MG Tablet PO SCH (08:16)
[2018-02-10] MEDS: Pregabalin 75 MG Capsule PO SCH ×2 (08:17→21:18)
[2018-02-10] MEDS: Senna/Docusate Sodium 8.6/50 MG Tablet PO SCH (08:18)
[2018-02-10] MEDS: MethylPREDNISolone Sod Succinate Inj 125 MG/2 ML Vial IV.PUSH SCH ×2 (09:09→17:53)
[2018-02-10] MEDS: Chlorhexidine 0.12% Oral Kit 15 ML UDC OROPHARYNG SCH ×2 (09:09→20:37)
--- NOTE | 2018-02-10 11:13 | P.CONPAL ---
Consult Service: Palliative Care Requesting Physician: Annika Spears Reason for Consult: a. To assist with evaluation and management of symptoms including: pain, dyspnea b. To assist medical decision maker(s) with: better understanding of current medical conditions; weighing benefits/burdens of medical treatment options; making medical treatment decisions. Primary Care Provider: Regan Rogers History of Present Illness History of Present Illness: This is a 62 yo male with PMH chronic back pain, COPD on 2L O2 at home, OA, aortic valve replacement 2012 on warfarin, AF, hemorrhagic stroke 2014 with left side deficit, who presented to [facility] ER with AMS on 02/04. He was transferred to [facility]. On presentation to [facility] he was hypotensive with temp 102. Hgb was 9.2 and 2 x PRBC transfused. He was given fluid and levophed and then developed A Flutter, was started on amiodarone and then converted to sinus rhythm. He was found to have NSTEMI, sepsis, shock. In the last month he has been needing his inhaler more. For the last year he has had to take frequent breaks while mowing lawns. * Echo 02/05 indicated EF < 20%, diffuse global hypokinesis, mild to moderate MV regurg, pulmonary artery pressure 42.7, moderately decreased right bentricular systolic function; elevated troponins 10.9 to 27.5 * CXR showing mild increasing bilat pulmonary infiltrates suggestive pulmonary edema, poss small effusions * ID consulted 02/05, poss PNA; cardiology consulted * 02/05 retrograde left heart cath, stent placement, IABP placement; had vasospasm during procedure * 02/05 intubated for hypoxic respiratory failure 2/2 cardiogenic shock, pulmonary edema * 02/06 CXR showing pulmonary edema, suspect bilat effusions * 02/08 CXR shows improving pulmonary edema; IABP removed * 02/09 multiple episodes v fib and v tach arrest, successfully resuscitated; episode 2 minute v fib arrest at night successfully cardioverted; hypokalemic This is his 3rd hospital admission this year. He had recent admission for MSSA sepsis & TIA from 01/23 to 01/31 after which he was d/c with PICC line for continued abx. During that admission CAMERON was negative, questionable septic emboli lungs, CXR with ground glass appearance. He was treated for suspected endocarditis. He was admitted 4 - 10/24 for dysphagia, weight loss, supratherapeutic INR. Ba swallow showed a stricture, he had a normal EGD, GI recommended outpt EUS. reports he has been in pain management for low back pain. He takes hydrocodone PRN and has taken the same amount for 6 years. Dual visit with ANDRES Bell. Pt appears frail, cachectic. On 100% FiO2. On milrinone, levophed. Function/Cognitive Trajectory: Was living at home with spouse and independent with ADLs. Ambulating with cane. reports in the last year he had to take more breaks to rest in the car while mowing lawns. In the last month he has been using his inhaler more frequently. Review of Systems unobtainable due to endotracheal tube (completed to best of my ability from chart, family, RN) Constitutional: Reports fever(s), Reports malaise, Reports weight loss Ears, Nose, Mouth, and Throat: Reports difficulty swallowing Cardiovascular: Reports chest pain, Reports shortness of breath with activity Respiratory: Reports shortness of breath Gastrointestinal: Reports difficulty swallowing Musculoskeletal: Reports back pain, Reports joint pain, Reports neck pain Neurologic: Reports abnormal walking, Reports tingling/numbness/burning sensations, Reports weakness Hematologic/Lymphatic: Reports easy bleeding, Reports easy bruising PMFSH - History History Provided By: Patient - Medical History Medical History: Medical History (Last Reviewed 02/07/18 @ 08:35 by Kiana Walton) HLD (hyperlipidemia) MSSA bacteremia Normal endoscopy COPD (chronic obstructive pulmonary disease) CVA (cerebral vascular accident) Neuropathy Osteoporosis - Surgical History Surgical History: Surgical History (Last Reviewed 02/07/18 @ 08:35 by Kiana Walton) H/O mechanical aortic valve replacement History of inguinal hernia repair, bilateral - Family History Family History: Family History (Last Updated 02/10/18 @ 15:05 by ANDRES Clement) Mother CAD (coronary artery disease) Father Valvular heart disease Brother Lung cancer - Tobacco History Second Hand Smoke Exposure: No (On disability. 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 ) Smoking Status: Former smoker Tobacco Type: Cigarettes - Alcohol History How Often Do You Have a Drink Containing Alcohol: Monthly or less - Substance Use History Substance History: No History of Abuse Medications and Allergies Active Medications: Active Medications Acetaminophen (Tylenol) 650 mg PO Q6H PRN PRN Reason: fever >101 Hydrocodone Bitart/Acetaminophen ([place] 10/325) 1 tab PO Q4H PRN PRN Reason: PAIN 1-10 Last Admin: 02/05/18 13:56 Dose: 1 tab Al Hydroxide/Mg Hydroxide (Milk Of [place] Liq) 30 ml PO Q12H PRN PRN Reason: Mild Constipation Albuterol (Albuterol Neb (Prn)) 2.5 mg NEB Q2HR NEB PRN PRN Reason: SHORTNESS OF BREATH/WHEEZING Last Admin: 02/09/18 21:20 Dose: 2.5 mg Aspirin (Aspirin Chew) 81 mg PO DAILY [facility] Last Admin: 02/10/18 08:16 Dose: 81 mg Atorvastatin Calcium (Lipitor) 40 mg PO HS [facility] Last Admin: 02/09/18 21:54 Dose: 40 mg Bisacodyl (Dulcolax Supp) 10 mg RECTAL DAILY PRN PRN Reason: SEVERE CONSITIPATION Bumetanide (Bumex Inj) 1 mg IV.PUSH BID@0900,1800 [facility] Last Admin: 02/09/18 18:31 Dose: 1 mg Carvedilol (Coreg) 3.125 mg PO BID [facility] Chlorhexidine Gluconate (Peridex 0.12% Oral Kit) 15 ml OROPHARYNG BID@0800, 2000 [facility] Last Admin: 02/10/18 09:09 Dose: 15 ml Clopidogrel Bisulfate (Plavix) 75 mg PO DAILY [facility] Last Admin: 02/10/18 08:17 Dose: 75 mg Digoxin (Lanoxin Inj) 250 mcg IV.PUSH DAILY [facility] Last Admin: 02/10/18 08:15 Dose: 250 mcg Duloxetine HCl (Cymbalta) 90 mg PO DAILY [facility] Last Admin: 02/10/18 08:17 Dose: 30 mg Ferrous Sulfate (Ferosul) 325 mg PO DAILY [facility] Last Admin: 02/10/18 08:16 Dose: 325 mg Heparin Sodium (Porcine) (Heparin Inj) 2,500 units IV.PUSH UNSCH PRN PRN Reason: aPTT 25-39 Heparin Sodium (Porcine) (Heparin Inj) 5,000 units IV.PUSH UNSCH PRN PRN Reason: aPTT < 25 Pharmacy Profile Note (Gentamicin Consult Pharmacy) 0 mls @ 0 mls/hr OTHER UNSCH [facility] Gentamicin Sulfate 65 mg/ (Sodium Chloride) 101.625 mls @ 203 mls/hr IV.SIG Q12H [facility] Last Admin: 02/10/18 05:47 Dose: 203 mls/hr Midazolam HCl (Versed Inj) 50 mg in 50 mls @ 2 mls/hr IV.CONT TITRATE PRN; Protocol PRN Reason: Per Protocol Last Admin: 02/10/18 09:05 Dose: 8 mg/hr, 8 mls/hr Heparin Sodium/Dextrose (Heparin/D5w 25,000 U/250 Ml) 25,000 unit in 250 mls @ 8 mls/hr IV.CONT TITRATE PRN; Protocol PRN Reason: Per Protocol Last Admin: 02/10/18 05:49 Dose: 800 units/hr, 8 mls/hr Cefazolin Sodium/Dextrose (Ancef 2 Gm Premix Inj) 2 gm in 50 mls @ 100 mls/hr IV.SIG Q8H [facility] Last Admin: 02/10/18 05:48 Dose: 100 mls/hr Epinephrine HCl 2 mg/ Dextrose 250 mls @ 22.5 mls/hr IV.CONT TITRATE PRN; Protocol PRN Reason: Per Protocol Last Admin: 02/09/18 11:43 Dose: 1 mcg/min, 7.5 mls/hr Norepinephrine Bitartrate (Levophed-Dextrose 4 Mg/250 Ml Drip) 4 mg in 250 mls @ 7.5 mls/hr IV.SIG TITRATE PRN; Protocol PRN Reason: Per Protocol Last Admin: 02/09/18 08:17 Dose: 5 mcg/min, 18.75 mls/hr Amiodarone HCl 450 mg/ (Dextrose) 250 mls @ 33.33 mls/hr IV.CONT TITRATE PRN; Protocol PRN Reason: Per Protocol Last Admin: 02/10/18 05:46 Dose: 0.5 mg/min, 16.66 mls/hr Magnesium Sulfate Inj 4 gm/ (Sodium Chloride) 100 mls @ 50 mls/hr IV.SIG UNSCH PRN PRN Reason: For Magnesium 0.9 - 1.1 mg/dL Magnesium Sulfate Inj 2 gm/ (Sodium Chloride) 100 mls @ 50 mls/hr IV.SIG UNSCH PRN PRN Reason: For Magnesium 1.2 - 1.6 mg/dL Potassium Chloride (Kcl 40 Meq Premix Inj) 40 meq in 100 mls @ 25 mls/hr IV.SIG Q2H PRN PRN Reason: For Potassium 2.8 - 3.2 mEq/L Potassium Chloride (Kcl 20 Meq Premix Inj) 20 meq in 100 mls @ 50 mls/hr IV.SIG Q2H PRN PRN Reason: For Potassium 3.3 - 3.5 mEq/L Last Admin: 02/10/18 08:10 Dose: 50 mls/hr Potassium Chloride (Kcl 40 Meq Premix Inj) 40 meq in 100 mls @ 25 mls/hr IV.SIG UNSCH PRN PRN Reason: For Potassium 3.3 - 3.5 mEq/L Potassium Chloride (Kcl 20 Meq Premix Inj) 20 meq in 100 mls @ 50 mls/hr IV.SIG Q2H PRN PRN Reason: For Potassium 2.8 - 3.2 mEq/L Last Admin: 02/09/18 16:56 Dose: 50 mls/hr Potassium Phosphate 30 mmol/ (Sodium Chloride) 260 mls @ 42 mls/hr IV.SIG UNSCH PRN PRN Reason: SEE LABEL COMMENTS Sodium Phosphate 30 mmol/ (Sodium Chloride) 260 mls @ 42 mls/hr IV.SIG UNSCH PRN PRN Reason: For Phosphorus < 2.5 mg/dL Milrinone Lactate 20 mg/ (Sodium Chloride) 100 mls @ 0 mls/hr IV.CONT .Q0M [facility] ; Protocol Last Admin: 02/10/18 04:43 Dose: 0.5 mcg/kg/min, 8.94 mls/hr Fentanyl (Fentanyl 10 Mcg/Ml Premix Drip) 2,500 mcg in 250 mls @ 5 mls/hr IV.SIG TITRATE PRN; Protocol PRN Reason: Per Protocol Last Admin: 02/09/18 17:17 Dose: 50 mcg/hr, 5 mls/hr Lactulose (Lactulose Liq) 30 ml PO DAILY PRN PRN Reason: SEVERE CONSITIPATION Last Admin: 02/05/18 08:38 Dose: 30 ml Magnesium Oxide (Mag-Ox) 800 mg PO UNSCH PRN PRN Reason: For Magnesium 1.2 - 1.6 mg/dL Methylprednisolone Sodium Succinate (Solumedrol Inj) 60 mg IV.PUSH Q8H [facility] Last Admin: 02/10/18 09:09 Dose: 60 mg Morphine Sulfate (Morphine Inj) 2 mg IV.PUSH Q3H PRN PRN Reason: breakthrough pain 1-5 Last Admin: 02/05/18 12:00 Dose: 2 mg Morphine Sulfate (Morphine Inj) 4 mg IV.PUSH Q4H PRN PRN Reason: breakthrough pain 6-10 Last Admin: 02/05/18 13:56 Dose: 4 mg Multivitamins (Theragran) 1 tab PO DAILY [facility] Last Admin: 02/10/18 08:16 Dose: 1 tab Pantoprazole Sodium (Protonix) 40 mg PO DAILY [facility] Last Admin: 02/10/18 08:16 Dose: 40 mg Potassium Bicarb/Potassium Chloride (K-Lyte Cl Eff) 50 meq PO UNSCH PRN PRN Reason: For Potassium 3.3 - 3.5 mEq/L Potassium Phosphate (K-Phos Original) 2,000 mg PO Q4H PRN PRN Reason: Phosphorus Less Than 2.5 mg/dL Potassium Phosphate (K-Phos Original) 2,000 mg PO UNSCH PRN PRN Reason: SEE LABEL COMMENTS Pregabalin (Lyrica) 150 mg PO BID [facility] Last Admin: 02/10/18 08:17 Dose: 150 mg Senna/Docusate Sodium (Linda-Colace) 1 tab PO BID [facility] Last Admin: 02/10/18 08:18 Dose: Not Given Sennosides (Senokot) 17.2 mg PO Q12H PRN PRN Reason: Moderate Constipation Sodium Chloride (Ns Flush) 2 ml IV.FLUSH BID [facility] Last Admin: 02/10/18 08:17 Dose: 2 ml Sodium Chloride (Ns Flush) 2 ml IV.FLUSH PRN PRN PRN Reason: FLUSH AFTER USING IV ACCESS Terbutaline Sulfate (Brethine Inj) 1 mg SQ UNSCH PRN PRN Reason: For Extravasation Whey (Beneprotein Powder) 1 packet G-TUBE TID [facility] Last Admin: 02/09/18 18:25 Dose: Not Given Allergies Allergy/AdvReac Type Severity Reaction Status Date / Time No Known Allergies Allergy Verified 02/04/18 18:10 Home Medications Medication Instructions Recorded Confirmed Type ascorbic acid (vitamin C) [Vitamin See Label Instructions .ROUTE 01/22/18 History C] .COMPLEX duloxetine [Cymbalta] 90 mg PO DAILY 01/22/18 02/06/18 History ferrous sulfate [Iron (ferrous 1 tab PO DAILY 01/22/18 02/06/18 History sulfate)] hydrocodone-acetaminophen [[place]] 1 tab PO Q6H 01/22/18 02/06/18 History multivitamin 1 cap PO QAM 01/22/18 02/06/18 History pregabalin [Lyrica] 200 mg PO BID 01/22/18 02/06/18 History tamsulosin [Flomax] 0.4 mg PO DAILY 01/22/18 02/06/18 History warfarin [Coumadin] 6 mg PO DAILY 01/22/18 02/06/18 History Advance Directives Living Will: No Healthcare Surrogate: No Power of Contact Centre Supervisor: No Ethical and Legal Issues: Pt not capacitated to make medical decisions. Unclear if he will regain capacity. Per [place] statutes decision making would fall to as proxy. Physical Exam Vital Signs: Vital Signs - 24 hr 02/09/18 11:00 02/09/18 11:15 02/09/18 11:50 Temperature 98.4 F Pulse Rate 70 Respiratory Rate 12 18 14 Blood Pressure 110/50 L Pulse Oximetry 95 100 88 L 02/09/18 11:56 02/09/18 15:00 02/09/18 18:25 Temperature 98.9 F Pulse Rate 105 H 70 Respiratory Rate 14 14 14 Blood Pressure 108/55 L Pulse Oximetry 97 02/09/18 19:00 02/09/18 21:20 02/09/18 23:00 Temperature 99.8 F H 98.5 F Pulse Rate 82 76 75 Respiratory Rate 14 15 14 Blood Pressure 126/60 137/51 L Pulse Oximetry 93 L 97 91 L 02/09/18 23:50 02/10/18 00:10 02/10/18 00:57 Temperature Pulse Rate 74 Respiratory Rate 14 Blood Pressure Pulse Oximetry 89 L 92 L 02/10/18 03:00 02/10/18 03:45 02/10/18 03:50 Temperature 99.3 F Pulse Rate 75 73 74 Respiratory Rate 14 Blood Pressure 136/55 L Pulse Oximetry 92 L 02/10/18 05:05 02/10/18 08:05 02/10/18 08:36 Temperature Pulse Rate 73 Respiratory Rate 18 Blood Pressure Pulse Oximetry 94 L 95 02/10/18 08:45 02/10/18 08:54 02/10/18 08:58 Temperature 98.0 F 98.0 F Pulse Rate Respiratory Rate 18 18 Blood Pressure 132/50 L Pulse Oximetry 96 96 I&O: Intake & Output 02/08/18 02/09/18 02/10/18 02/11/18 06:59 06:59 06:59 06:59 Intake Total 2381.775 / 2381.775 4300.625 / 4300.625 1800 / 1800 50 / 50 Output Total 8580 / 8580 4100 / 4100 850 / 850 875 / 875 Balance -6198.225 / -6198.225 200.625 / 200.625 950 / 950 -825 / -825 Weight 59 kg 55.5 kg 55.5 kg Physical Exam: CONSTITUTIONAL/GENERAL: frail appearing, cachectic male TUBES/LINES/DRAINS: roberson, ET tube, OGT, Left IJ, right arterial line SKIN: No jaundice, rashes, or lesions. No wounds seen anteriorly. Skin temperature appropriate. Not diaphoretic. HEAD: Atraumatic. Normocephalic. + temporal wasting EYES: pupils constricted. No scleral icterus. No injection or drainage. Fundi not examined. ENT: Hearing grossly normal. Nose without bleeding or purulent drainage. Throat exam inhibited by presence ET tube NECK: Trachea midline. Supple, nontender. No palpable thyroid enlargement or nodularity. CARDIOVASCULAR: RRR without murmurs, gallops, or rubs. + click. No JVD. Peripheral pulses symmetric. RESPIRATORY/CHEST: Symmetric, unlabored respirations. Clear to auscultation. Breath sounds equal bilaterally. No wheezes, rales, or rhonchi. diminished bases. GASTROINTESTINAL: Abdomen soft, nondistended. No hepato-splenomegaly, or palpable masses. Bowel sounds present. GENITOURINARY: Without palpable bladder distension. Roberson catheter in place. MUSCULOSKELETAL: Extremities without clubbing, cyanosis, or edema. No joint tenderness or effusion noted. No calf tenderness. No mottling or clubbing. LYMPHATICS: No palpable cervical or supraclavicular adenopathy. NEUROLOGICAL: sedated on vent PSYCHIATRIC: unable to assess 2/2 sedated on vent Diagnostic Tests Laboratory: Laboratory Results - last 72 hr 02/07/18 02/07/18 02/07/18 10:00 10:00 10:00 WBC RBC Hgb Hct MCV MCH MCHC RDW Plt Count MPV Neut % (Auto) Lymph % (Auto) [place] % (Auto) Eos % (Auto) Baso % (Auto) Neut # (Auto) Lymph # (Auto) [place] # (Auto) Eos # (Auto) Baso # (Auto) WBC Differential Differential Comment PT INR APTT 54.1 H D Puncture Site Patient Temperature O2 Saturation ABG pH ABG pCO2 ABG pO2 ABG HCO3 ABG O2 Content ABG Base Excess ABG Methemoglobin Hemoglobin Carboxyhemoglobin O2 Delivery Device Vent Setting Inspired O2 Critical Value Sodium 139 Potassium 3.3 L Chloride 102 Carbon Dioxide 29.1 Anion Gap 8 BUN 20 H Creatinine 1.40 H Estimated GFR 51 L Random Glucose 135 H Lactic Acid 1.1 Calcium 8.2 L Magnesium Total Bilirubin AST ALT Alkaline Phosphatase Troponin I Total Protein Albumin Gentamicin Peak Gentamicin Trough Random Vancomycin 02/07/18 02/07/18 02/07/18 15:59 20:04 23:32 WBC RBC Hgb Hct MCV MCH MCHC RDW Plt Count MPV Neut % (Auto) Lymph % (Auto) [place] % (Auto) Eos % (Auto) Baso % (Auto) Neut # (Auto) Lymph # (Auto) [place] # (Auto) Eos # (Auto) Baso # (Auto) WBC Differential Differential Comment PT INR APTT 52.0 H Puncture Site Patient Temperature O2 Saturation ABG pH ABG pCO2 ABG pO2 ABG HCO3 ABG O2 Content ABG Base Excess ABG Methemoglobin Hemoglobin Carboxyhemoglobin O2 Delivery Device Vent Setting Inspired O2 Critical Value Sodium 140 138 Potassium 3.3 L 2.9 L* Chloride 101 97 L Carbon Dioxide 31.8 30.5 Anion Gap 7 11 BUN 19 H 16 Creatinine 1.43 H 1.37 H Estimated GFR 50 L 52 L Random Glucose 140 H 142 H Lactic Acid Calcium 8.2 L 8.2 L Magnesium Total Bilirubin AST ALT Alkaline Phosphatase Troponin I Total Protein Albumin Gentamicin Peak Gentamicin Trough Random Vancomycin 02/08/18 02/08/18 02/08/18 04:12 04:12 04:12 WBC 10.2 RBC 3.79 L Hgb 11.3 L Hct 34.2 L MCV 90.4 MCH 29.9 MCHC 33.1 RDW 16.8 Plt Count 414 MPV 8.6 Neut % (Auto) 80.9 H Lymph % (Auto) 7.1 L Stan[place] % (Auto) 9.4 H Eos % (Auto) 1.6 Baso % (Auto) 1.0 Neut # (Auto) 8.2 H Lymph # (Auto) 0.7 L [place] # (Auto) 1.0 H Eos # (Auto) 0.2 Baso # (Auto) 0.1 WBC Differential . Differential Comment Auto diff final PT 18.0 H INR 1.8 APTT Puncture Site Patient Temperature O2 Saturation ABG pH ABG pCO2 ABG pO2 ABG HCO3 ABG O2 Content ABG Base Excess ABG Methemoglobin Hemoglobin Carboxyhemoglobin O2 Delivery Device Vent Setting Inspired O2 Critical Value Sodium 137 Potassium 3.6 Chloride 96 L Carbon Dioxide 31.2 Anion Gap 10 BUN 16 Creatinine 1.35 H Estimated GFR 53 L Random Glucose 131 H Lactic Acid Calcium 8.7 Magnesium Total Bilirubin 0.9 AST 317 H ALT 187 H Alkaline Phosphatase 131 H Troponin I Total Protein 7.5 Albumin 2.4 L Gentamicin Peak Gentamicin Trough Random Vancomycin 17.3 02/08/18 02/08/18 02/08/18 04:12 06:00 07:11 WBC RBC Hgb Hct MCV MCH MCHC RDW Plt Count MPV Neut % (Auto) Lymph % (Auto) [place] % (Auto) Eos % (Auto) Baso % (Auto) Neut # (Auto) Lymph # (Auto) [place] # (Auto) Eos # (Auto) Baso # (Auto) WBC Differential Differential Comment PT INR APTT 44.3 H Puncture Site Patient Temperature O2 Saturation ABG pH ABG pCO2 ABG pO2 ABG HCO3 ABG O2 Content ABG Base Excess ABG Methemoglobin Hemoglobin Carboxyhemoglobin O2 Delivery Device Vent Setting Inspired O2 Critical Value Sodium Potassium Chloride Carbon Dioxide Anion Gap BUN Creatinine Estimated GFR Random Glucose Lactic Acid Calcium Magnesium Total Bilirubin AST ALT Alkaline Phosphatase Troponin I Total Protein Albumin Gentamicin Peak 5.3 Gentamicin Trough 0.9 Random Vancomycin 02/09/18 02/09/18 02/09/18 05:00 05:00 07:37 WBC 9.4 RBC 3.80 L Hgb 11.4 L Hct 34.3 L MCV 90.2 MCH 30.0 MCHC 33.2 RDW 16.3 Plt Count 366 MPV 8.1 Neut % (Auto) 80.5 H Lymph % (Auto) 6.6 L Stan[place] % (Auto) 10.7 H Eos % (Auto) 1.3 Baso % (Auto) 0.9 Neut # (Auto) 7.6 Lymph # (Auto) 0.6 L Stan[place] # (Auto) 1.0 H Eos # (Auto) 0.1 Baso # (Auto) 0.1 WBC Differential . Differential Comment Auto diff final PT 14.7 H INR 1.5 APTT 47.8 H Puncture Site Patient Temperature O2 Saturation ABG pH ABG pCO2 ABG pO2 ABG HCO3 ABG O2 Content ABG Base Excess ABG Methemoglobin Hemoglobin Carboxyhemoglobin O2 Delivery Device Vent Setting Inspired O2 Critical Value Sodium 136 Potassium 3.2 L Chloride 93 L Carbon Dioxide 32.9 H Anion Gap 10 BUN 18 Creatinine 1.72 H Estimated GFR 40 L Random Glucose 109 H Lactic Acid Calcium 8.4 L Magnesium Total Bilirubin 0.7 AST 279 H ALT 64 Alkaline Phosphatase 149 H Troponin I Total Protein 7.7 Albumin 2.7 L Gentamicin Peak Gentamicin Trough Random Vancomycin 02/09/18 02/09/18 02/09/18 11:15 14:00 15:52 WBC RBC Hgb Hct MCV MCH MCHC RDW Plt Count MPV Neut % (Auto) Lymph % (Auto) [place] % (Auto) Eos % (Auto) Baso % (Auto) Neut # (Auto) Lymph # (Auto) [place] # (Auto) Eos # (Auto) Baso # (Auto) WBC Differential Differential Comment PT INR APTT 45.4 H Puncture Site Art line Patient Temperature 98.6 O2 Saturation 97 ABG pH 7.45 H ABG pCO2 49 H ABG pO2 150 H ABG HCO3 34 H ABG O2 Content 16.4 ABG Base Excess 9.3 H ABG Methemoglobin 1.4 Hemoglobin 11.9 L Carboxyhemoglobin 0.7 O2 Delivery Device Ventilator Vent Setting [id number] Inspired O2 100 Critical Value No Sodium 135 L Potassium 4.1 D Chloride 92 L Carbon Dioxide 34.0 H Anion Gap 9 BUN 21 H Creatinine 1.88 H Estimated GFR 36 L Random Glucose 153 H Lactic Acid Calcium 8.1 L Magnesium 1.7 Total Bilirubin 0.7 AST 281 H ALT 48 Alkaline Phosphatase 149 H Troponin I Total Protein 7.6 Albumin 2.4 L Gentamicin Peak Gentamicin Trough Random Vancomycin 02/09/18 02/09/18 02/09/18 15:52 23:00 23:00 WBC RBC Hgb Hct MCV MCH MCHC RDW Plt Count MPV Neut % (Auto) Lymph % (Auto) [place] % (Auto) Eos % (Auto) Baso % (Auto) Neut # (Auto) Lymph # (Auto) [place] # (Auto) Eos # (Auto) Baso # (Auto) WBC Differential Differential Comment PT INR APTT Puncture Site Patient Temperature O2 Saturation ABG pH ABG pCO2 ABG pO2 ABG HCO3 ABG O2 Content ABG Base Excess ABG Methemoglobin Hemoglobin Carboxyhemoglobin O2 Delivery Device Vent Setting Inspired O2 Critical Value Sodium 135 L Potassium 3.7 Cancelled Chloride 92 L Carbon Dioxide 30.7 Anion Gap 12 BUN 22 H Creatinine 1.90 H Estimated GFR 36 L Random Glucose 141 H Lactic Acid Calcium 8.4 L Magnesium 3.0 H D Total Bilirubin AST ALT Alkaline Phosphatase Troponin I 6.74 H* Total Protein Albumin Gentamicin Peak Gentamicin Trough Random Vancomycin 02/10/18 02/10/18 02/10/18 00:25 05:35 05:35 WBC 10.5 RBC 3.70 L Hgb 11.2 L Hct 33.2 L MCV 89.9 MCH 30.4 MCHC 33.8 RDW 16.2 Plt Count 341 MPV 8.5 Neut % (Auto) 82.2 H Lymph % (Auto) 6.6 L [place] % (Auto) 10.7 H Eos % (Auto) 0.2 Baso % (Auto) 0.3 Neut # (Auto) 8.6 H Lymph # (Auto) 0.7 L [place] # (Auto) 1.1 H Eos # (Auto) 0.0 Baso # (Auto) 0.0 WBC Differential . Differential Comment Auto diff final PT 13.8 H INR 1.4 APTT 49.2 H Puncture Site Art line Patient Temperature 98.6 O2 Saturation 87 L* ABG pH 7.56 H* ABG pCO2 37 L ABG pO2 54 L* ABG HCO3 34 H ABG O2 Content 14.2 ABG Base Excess 10.5 H ABG Methemoglobin 0.5 Hemoglobin 11.6 L Carboxyhemoglobin 1.0 O2 Delivery Device Ventilator Vent Setting Prvc/ac Inspired O2 100 Critical Value Yes Sodium Potassium Chloride Carbon Dioxide Anion Gap BUN Creatinine Estimated GFR Random Glucose Lactic Acid Calcium Magnesium Total Bilirubin AST ALT Alkaline Phosphatase Troponin I Total Protein Albumin Gentamicin Peak Gentamicin Trough Random Vancomycin 02/10/18 05:35 WBC RBC Hgb Hct MCV MCH MCHC RDW Plt Count MPV Neut % (Auto) Lymph % (Auto) [place] % (Auto) Eos % (Auto) Baso % (Auto) Neut # (Auto) Lymph # (Auto) [place] # (Auto) Eos # (Auto) Baso # (Auto) WBC Differential Differential Comment PT INR APTT Puncture Site Patient Temperature O2 Saturation ABG pH ABG pCO2 ABG pO2 ABG HCO3 ABG O2 Content ABG Base Excess ABG Methemoglobin Hemoglobin Carboxyhemoglobin O2 Delivery Device Vent Setting Inspired O2 Critical Value Sodium 135 L Potassium 3.3 L Chloride 92 L Carbon Dioxide 31.2 Anion Gap 12 BUN 23 H Creatinine 1.89 H Estimated GFR 36 L Random Glucose 128 H Lactic Acid Calcium 8.3 L Magnesium 2.7 H Total Bilirubin 0.6 AST 157 H ALT 24 Alkaline Phosphatase 126 H Troponin I Total Protein 7.6 Albumin 2.2 L Gentamicin Peak Gentamicin Trough 2.1 H Random Vancomycin Result Diagrams: 02/10/18 05:35 02/10/18 13:10 Microbiology: Microbiology 02/05/18 00:42 Aerobic Blood Culture - Preliminary Blood - Peripheral No growth in 4 days Anaerobic Blood Culture - Preliminary No growth in 4 days 02/05/18 00:12 Aerobic Blood Culture - Preliminary Blood - Peripheral No growth in 4 days Anaerobic Blood Culture - Preliminary No growth in 4 days 02/06/18 14:00 Gram Stain - Final Sputum - Endotracheal Sputum Culture - Final Moderate growth normal respiratory ursula Imaging: ITS Impressions Abdomen/Bladder Ultrasound 02/05/18 00:00 CONCLUSION: 1. No evidence of hydronephrosis. 2. The echogenicity of the kidneys is equal to that of the liver which can be seen with medical renal disease. 3. Simple cyst in right kidney. 4. Suboptimal visualization of the left kidney. 5. Small amount of free fluid along the spleen. This could represent an adjacent pleural effusion. Chest X-Ray 02/10/18 06:00 CONCLUSION: 1. No significant interval change. 2. Stable bilateral lower lobe airspace disease with trace pleural effusions. Procedures: 02/05 left IJ placement 02/05 retrograde left heart cath, stent placement, IABP placement 02/05 intubated Patient/Family Conference Present at Family Conference: pt's sister Yvonne, Pt's Maria Isabel, 's sister Lima (who is a critical care nurse) Family Conference Location: Consult Room Issues Discussed: * Palliative care role, purpose, approach * Additional medical, psychosocial, and spiritual history * Patients general health, functional status, and cognitive changes in the months leading up to the current hospitalization * family understanding of the current medical problems - they seem to have good insight, understand it could take 6wks to 3 months to see if cardiac status improves, asking about rehab * family understanding of prognosis * Patients goals of care as best understood conversation - said she had brought it up in the past but he did not offer guidance * Current medical treatment options and benefits/burdens of those options - discussed tracheostomy, feeding tube, continued CPR and shocks * Likely scenarios comparing ongoing aggressive care * discussed code status - they would like to wait before making a decision * Questions answered to the best of my ability * Palliative care contact information provided Family working together to make decisions, seem to have reasonable insight. They want to "wait and see." Proxy initially says she is "willing to wait " and "hoping for God to heal him and I know it will be a long recovery" yet alluded to not wanting him to be "stuck on machines for a long time." For the time being goals are aggressive. They are receptive to palliative care visits. Assessment and Plan - Disease Oriented Problem List (1) Cardiogenic shock (2) Septic shock (3) Ventricular fibrillation (4) Hypokalemia (5) COPD with hypoxia (6) CAD (coronary artery disease) (7) Chronic back pain (8) Chronic anticoagulation (9) Status post mechanical aortic valve replacement - Symptom Scale (1) Dyspnea 0-10 Scale: Unable to quantify (2) Pain 0-10 Scale: Unable to quantify Pertinent Non-Medical Issues: Psychosocial: On disability. 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 Spiritual: Christianity, non-church. Employment Evaluator/Case Manager has visited, they also have nondenominational psychodramatist visiting. Legal: Pt not capacitated to make medical decisions. Unclear if he will regain capacity. Per [place] statutes decision making would fall to as proxy. Ethical issues impacting care: none identified Important Contacts: Maria Isabel Tolentino [phone] sister Yvonne Shea [phone] Prognosis: 62 yo male s/p aortic valve replacement 2012 who suffered significant NSTEMI, EF <20% on presentation, troponins up to 32. Echo also showed global hypokinesis. Not clear how much of heart failure was present prior to NSTEMI. s /p heart cath, LAD stenting complicated by vasospasm, placement and subsequent removal of IABP. 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 He has had several runs of v fib and v tach requiring chest compressions, shocks. He has underlying COPD and was having activity intolerance prior to this event. His prognosis for recovery is poor; chances of returning to baseline quite poor. He is at serious risk for continued complications including but not limited to recurrent arrhythmias, multi-organ injury; and at risk for further decline. Code Status: Full Code Plan: - LEGAL DECISON MAKER - Pt not capacitated to make medical decisions. [place] statutes decision making would fall to as proxy. Family working together to make decisions - , wifes RN sister, and pt's sister. - CODE STATUS- full code - GOALS - Family working together to make decisions, seem to have reasonable insight. They want to "wait and see." Proxy initially says she is "willing to wait," "hoping for God to heal him and I know it will be a long recovery," and asking about rehab, yet alluded to not wanting him to be "stuck on machines for a long time." For the time being goals are aggressive. They are receptive to palliative care visits. - SYMPTOMS - * dyspnea - multifactorial - pulmonary edema on CXR(possibly improving), hx COPD , EF < 20%, class 4 heart failure. now on vent. PT noted after admission that pt desatted with activity, had increasing SOB. FiO2 100%, sat 92%, blood o2 sat 87%. Has PRN duonebs, bumex 1mg BID, versed 8ml/hr. * pain - multifactorial, lines, ET tube, catheters, hx chronic back pain 2/2 "chronic fractures." sees pain mgmt, been on hydrocodone 10/, reportedly same dosage and frequency for 6 years. Also on duloxetine at home. currently on fentanyl gtt 5ml/hr. - eforsce verified - Palliative care will continue to follow during hospital course as condition evolves, to assist patient/decision-maker with understanding of medical conditions, weighing benefits/burdens of treatment options, for clarification of goals of treatment. Additionally will assist with any symptoms of palliative concern Appreciation Thank you for the opportunity to participate in the care of Adam Tolentino. Attestation Attestation: To help prompt me to consider important information that might be impacting today's encounter and assessment, information from prior notes written by myself or my colleagues may have been "brought forward" into today's note. My signature on this note, however, is an attestation that I personally performed the exam, history, and/or decision-making noted today, and, unless otherwise indicated, the interactions with patient, family, and staff as well as the review of records all occurred today. I also attest that the listed assessment and stated plan reflect my best clinical judgment today based on the combination of historical information, prior notes, and today's exam/ interactions. When time spent is documented, it refers only to time spent today by the signer, or if indicated, combined time spent today by collaborating physician/nurse practitioner.
[2018-02-10] MEDS: Beneprotein Powder Packet G-TUBE SCH ×2 (11:34→18:45)
[2018-02-10 14:03] LABS: Albumin 2.2 g/dL (3.4-5.0); Anion Gap 11 meq/L (5-15); Aspartate Aminotransferase 118 U/L (15-37); Blood Urea Nitrogen 25 mg/dL (7-18); Calcium 8.3 mg/dL (8.5-10.1); Carbon Dioxide 32.3 meq/L (21.0-32.0); Chloride 92 meq/L (98-107); Glomerular Filtration Rate 37 mL/min (>89); Glucose,Random 131 mg/dL (74-106); Sodium 135 meq/L (136-145)
[2018-02-10 14:04] LABS: Alanine Aminotransferase 20 U/L (12-78)
[2018-02-10 14:06] LABS: Alkaline Phosphatase 119 U/L (45-117); Total Protein 7.4 g/dL (6.4-8.2)
[2018-02-10] MEDS ORDERED: Vancomycin Consult Pharmacy 1 EACH OTHER SCH (19:00)
[2018-02-10] MEDS ORDERED: Vancomycin Inj 1,500 MG in Sodium Chlor 0.9% Inj 500 ML IV.SIG ONE (20:00)
[2018-02-10] MEDS: Potassium Chlor 10 mEq Premix 10 MEQ/100 ML PIGGYBACK IV.SIG SCH ×2 (21:17→22:07)
[2018-02-11] MEDS: Oral Hygiene Kit OROPHARYNG SCH ×5 (01:58→23:13)
[2018-02-11] MEDS: MethylPREDNISolone Sod Succinate Inj 125 MG/2 ML Vial IV.PUSH SCH ×4 (01:59→23:11)
[2018-02-11 04:15] LABS: Hematocrit 33.2 % (39.0-51.0); Hemoglobin 11.1 gm/dL (13.0-17.0); Mean Corpuscular HGB Conc 33.6 % (32.0-36.0); Mean Corpuscular Hemoglobin 30.2 pg (27.0-34.0); Platelet Count 305 th/mm3 (150-450); Red Blood Count 3.68 mil/mm3 (4.50-5.90); Red Cell Distribution Width 16.3 % (11.6-17.2)
[2018-02-11 04:22] LABS: INR 1.3 Ratio; Prothrombin Time 13.4 sec (9.8-11.6)
[2018-02-11] MEDS: Senna/Docusate Sodium 8.6/50 MG Tablet PO SCH ×3 (04:37→20:38)
[2018-02-11] MEDS: Midazolam 50 MG/50 ML Inj 50 MG/50 ML BAG IV.CONT PRN ×4 (04:38→18:19)
[2018-02-11 04:45] LABS: Albumin 2.4 g/dL (3.4-5.0); Anion Gap 9 meq/L (5-15); Aspartate Aminotransferase 74 U/L (15-37); Blood Urea Nitrogen 33 mg/dL (7-18); Calcium 8.3 mg/dL (8.5-10.1); Carbon Dioxide 32.6 meq/L (21.0-32.0); Chloride 94 meq/L (98-107); Glomerular Filtration Rate 36 mL/min (>89); Glucose,Random 151 mg/dL (74-106); Magnesium 2.3 mg/dL (1.5-2.5); Potassium 3.3 meq/L (3.5-5.1); Sodium 136 meq/L (136-145)
[2018-02-11 04:49] LABS: Alanine Aminotransferase 20 U/L (12-78); Alkaline Phosphatase 110 U/L (45-117); Gentamicin,Random 1.2 mcg/mL; Total Protein 7.5 g/dL (6.4-8.2)
--- NOTE | 2018-02-11 06:12 | XR ---
EXAM DATE: 02/11/2018 5:38 AM EDT AGE/SEX: 62 years / Male INDICATIONS: Shortness of breath, possible pulmonary disease. CLINICAL DATA: This is the patient's subsequent encounter. Patient reports that signs and symptoms h ave been present for 1 week and indicates a pain score of Nonresponsive. MEDICAL/SURGICAL HISTORY: Chronic obstructive pulmonary disease. CABG. COMPARISON: [facility], CHEST 1V SINGLE AP, 02/10/2018. . FINDINGS: Stable ETT, NGT and left IJ central line. Improved aeration in the right lower lung zone. Persistent left lower lung zone airspace disease and likely trace pleural fluid. Cardiomediastinal contours are stable. Remainder of the exam is unchanged. CONCLUSION: 1. Stable tubes and lines. 2. Improved aeration in the right lower lung zone. 3. Persistent left lower lung zone airspace disease and likely trace pleural effusion. Electronically signed by: Danilo Perry MD 02/11/2018 6:10 AM EDT
--- NOTE | 2018-02-11 07:22 | P.PNCC ---
Subjective Subjective Remarks/Hospital Course: 62-year-old male with past medical history of [facility] mechanical aortic valve (09/21/12 Dr. Gonzalez), on chronic anticoagulation with warfarin, atrial fibrillation postop from AVR , COPD on 2.5 L home O2, stroke in 2015 resulting in left-sided sensory deficits and neuropathy, osteoporosis with chronic low back pain. He was recently admitted to [facility] from 01/23 through 01/31/18 for MSSA bacteremia. It is believed that the original source of infection was a wound on his right index finger when electric drill slipped and created a puncture wound. He was discharged with right upper extremity PICC line receiving cefazolin 2 g IV every 8 hours and gentamicin 210 mg IV daily. He states that home health administered antibiotics at 17:00 and shortly thereafter he began having chills and rigors and sought medical attention at [facility]. He had no rash. Upon arrival, he was hypotensive in the low 80s. He was given 2 L S bolus but remained hypotensive so was started on Levophed. He then developed heart rate in the 140s, reportedly atrial flutter so he was started on Amiodarone drip in [facility] and converted to sinus rhythm. He was transfused 2 units PRBC due to Hgb 9.3. His stool was nonbloody nonmelena but was Hemoccult positive. He was given zosyn and vancomycin. Critical care medicine was then contacted and accepted patient for transfer to [facility]. He denies tenderness/redness/drainage at PICC site. Aside from mechanical aortic valve, he has no other hardware or indwelling devices. He denies headache, cough, dysuria. He has had a few loose stools at home, but stools have sometimes been formed. He denies chest pain, does report some SOB. EKG at [facility] had marked inferolateral ischemic changes. Obtained EKG upon arrival to [facility] which is improved. SUBJ 02/05: Patient remains critical ill appearing, complaints of chest tightness but denies pain. Remains on 8 mcg/min of Levophed to maintain map about 65. However increasing shortness of breath. Chest x-ray shows increasing pulmonary edema. Troponin was 27.5 currently on IV heparin therapeutic. Cardiology consult is pending at this time. I will stop on maintenance fluids give 40 mg IV Lasix and IV albumin 25 g 1. Patient is very critical patient and updated at the bedside 02/06: to pathology laboratory aides teacher last night for [facility] with LAD stent complicated by vasospasm of the LAD. IABP placed. patient emergently intubated for acute hypoxic respiratory failure secondary to cardiogenic shock and pulmonary edema. started on milrinone at 0.375 mcg/kg/min and levophed. bumex drip started. remains critically ill. 02/07: Remains critically ill remains on Levophed and milrinone. Currently diuresing well with Bumex drip. IABP in place management per cardiology-good waveform and augmentation. Chest x-ray shows adequate positioning of IABP, diffuse bilateral pulmonary edema 02/08: Remains critical but showing some signs of improvement. Diuresing very well on Bumex infusion. Remains on Levophed and milrinone. IABP one-to-one with good augmentation management per cardiology. Chest x-ray shows improving edema but with persistent bilateral effusions. Will initiate weaning trials if tolerated 02/09: Still remains on pressors, unable to wean Levophed below 2 mcg/min. Milrinone currently on 0.375 mcg/kg/min. IABP removed yesterday. On sedation hold patient wakes up but remains lethargic. Weakly squeezes hand. Urine output excellent on Bumex, 4 L output in 24 hours. Will attempt CPAP today 02/10: Multiple episodes of V. fib V. tach arrest yesterday morning. Successfully resuscitated. Yesterday night had two-minute V. fib arrest return of spontaneous circulation in sinus rhythm after DC cardioversion 1. Currently remains on milrinone and low-dose Levophed. I will try to wean off Levophed introduce low-dose beta-rasheed due to recurrent arrhythmia. Keep potassium more than 4 magnesium more than 2 02/11: Patient still critical and cardiogenic shock requiring Levophed and milrinone. Urine output improved with adding Diamox. Approximately 2 L urine output in 24 hours, creatinine remained stable. Oxygenation slightly improved FiO2 reduced to 70% now. Overall prognosis remains poor family wants to continue aggressive care Objective Vital Signs / I&O: Vital Signs 02/10/18 08:05 02/10/18 08:36 02/10/18 08:45 Temperature Pulse Rate 73 Respiratory Rate 18 Blood Pressure Pulse Oximetry 95 96 02/10/18 08:54 02/10/18 08:58 02/10/18 11:00 Temperature 98.0 F 98.0 F 98.4 F Pulse Rate 69 Respiratory Rate 18 17 Blood Pressure 132/50 L 113/49 L Pulse Oximetry 96 93 L 02/10/18 13:16 02/10/18 13:45 02/10/18 13:54 Temperature 97.6 F Pulse Rate Respiratory Rate 17 18 Blood Pressure Pulse Oximetry 95 92 L 02/10/18 15:00 02/10/18 18:25 02/10/18 19:00 Temperature 97.1 F L 98.1 F Pulse Rate 63 64 62 Respiratory Rate 16 16 Blood Pressure 108/47 L 132/51 L Pulse Oximetry 91 L 02/10/18 20:00 02/10/18 21:04 02/10/18 23:00 Temperature 98.4 F Pulse Rate 64 Respiratory Rate 18 21 17 Blood Pressure 126/56 L Pulse Oximetry 93 L 97 02/11/18 00:00 02/11/18 00:55 02/11/18 03:00 Temperature 97.9 F Pulse Rate 62 Respiratory Rate 17 16 14 Blood Pressure 122/51 L Pulse Oximetry 95 97 02/11/18 03:57 02/11/18 04:00 Temperature Pulse Rate Respiratory Rate 17 14 Blood Pressure Pulse Oximetry 99 Intake & Output 02/10/18 02/11/18 02/11/18 18:59 06:59 18:59 Intake Total 1178 / 1178 2853 / 2853 Output Total 1374 / 1374 1500 / 1500 Balance -196 / -196 1353 / 1353 Weight 55 kg Intake: IV 1178 / 1178 50 / 50 Cordarone Inj 450 MG In D5W Inj 214 / 214 241 ML @ 1 MG/MIN 33.33 mls/hr IV.CONT TITRATE PRN Rx#: [id number] Heparin/D5W 25,000 U/250 mL 25, 182 / 182 000 unit In 250 ml @ 800 UNITS/ HR 8 mls/hr IV.CONT TITRATE PRN Rx#:[id number] Versed Inj 50 mg In 50 ml @ 2 231 / 231 50 / 50 MG/HR 2 mls/hr IV.CONT TITRATE PRN Rx#:[id number] Primacor Inj 20 MG In NS Inj 80 204 / 204 ML @ Per Protocol IV.CONT .Q0M [facility] Rx#:[id number] Levophed-Dextrose 4 mg/250 ml 133 / 133 Drip 4 mg In 250 ml @ 2 MCG/MIN 7.5 mls/hr IV.SIG TITRATE PRN Rx#:[id number] KCl 10 mEq Premix Inj 10 meq In 0 / 0 100 ml @ 100 mls/hr IV.SIG Q1H [facility] Rx#:[id number] KCl 20 mEq Premix Inj 20 meq In 100 / 100 100 ml @ 50 mls/hr IV.SIG Q2H PRN Rx#:[id number] fentaNYL 10 mcg/mL Premix Drip 114 / 114 2,500 mcg In 250 ml @ 50 MCG/HR 5 mls/hr IV.SIG TITRATE PRN Rx #:[id number] Oral 220 / 220 Tube Feeding 170 / 170 Tube Irrigant 60 / 60 Other 2353 / 2353 Output: Urine 600 / 600 Stool 100 / 100 Urine Amount (Catheter) 1174 / 1174 800 / 800 Indwelling Temp Sensing 1174 / 1174 800 / 800 Catheter Gastric Drainage 100 / 100 100 / 100 Oral 100 / 100 100 / 100 Other: # Voids 3 Date of Last Bowel Movement 02/10/18 02/11/18 # Bowel Movements 1 1 Result Diagrams: 02/11/18 03:45 02/11/18 03:45 Objective Remarks: GENERAL: Ill-appearing thin male with temporal wasting, lying in bed, intubated, sedated with Versed, fentanyl SKIN: cool and poorly perfused. HEAD: Atraumatic. Normocephalic. EYES: Pupils equal and round, 2 mm and reactive. No scleral icterus. No injection or drainage. ENT: No nasal bleeding or discharge. Orotracheally intubated NECK: Trachea midline. +ve JVD. left SC TLC clean dry and dressing intact. CARDIOVASCULAR: Regular rate and rhythm, currently sinus rhythm on the monitor with rate in the 80s. No murmurs rubs or gallops. on milrinone and Levophed. RESPIRATORY: intubated. fio2 80%, now reduce to 70%, PEEP 10. equal chest rise. Bilateral coarse rhonchi and and rales, at bases GASTROINTESTINAL: Abdomen soft, non-tender, nondistended. no guarding. VASC: Right radial art line in place with distal perfusion intact. right femoral IABP removed. no evidence of hematoma. distal pulses dopplerable. MUSCULOSKELETAL: Extremities without clubbing, cyanosis. No obvious deformities. NEUROLOGICAL: RASS -2. moves all extremities. no focal deficits. Heavy sedation limits exam Assessment and Plan - Problem List (1) Septic shock Code(s): A41.9 - Sepsis, unspecified organism; R65.21 - Severe sepsis with septic shock Status: Acute (2) Staph aureus infection Code(s): A49.01 - Methicillin susceptible Staphylococcus aureus infection, unspecified site Status: Acute (3) NSTEMI (non-ST elevated myocardial infarction) Code(s): I21.4 - Non-ST elevation (NSTEMI) myocardial infarction Status: Acute (4) Status post mechanical aortic valve replacement Code(s): Z95.2 - Presence of prosthetic heart valve Status: Chronic (5) Chronic anticoagulation Code(s): Z79.01 - websphere commerce architect (current) use of anticoagulants Status: Chronic (6) Chronic back pain Code(s): M54.9 - Dorsalgia, unspecified; G89.29 - Other chronic pain Status: Chronic (7) H/O aortic valve replacement Code(s): Z95.2 - Presence of prosthetic heart valve Status: Acute (8) Physical deconditioning Code(s): R53.81 - Other malaise Status: Chronic (9) BPH (benign prostatic hyperplasia) Code(s): N40.0 - Benign prostatic hyperplasia without lower urinary tract symptoms Status: Chronic (10) COPD with hypoxia Code(s): J44.9 - Chronic obstructive pulmonary disease, unspecified; R09.02 - Hypoxemia Status: Chronic - Assessment and Plan Plan: NEURO: History of stroke in 2015 Neuropathy left upper and lower extremity Chronic low back pain Keep heavily sedated with Versed and fentanyl for vent synchrony due to severe hypoxemia Goal RASS -3 until clinically improved Lortab 10/325 every 4 hours as needed for pain, Morphine as needed for breakthrough pain Continue Lyrica 150 mg p.o. twice daily. Hold Cymbalta 90 mg p.o. daily RESP: Severe Pulmonary edema Acute hypoxic respiratory failure COPD on 2.5 L home O2 Prior tobacco abuse Severely hypoxemic now with 70% FiO2 PEEP of [address] of the chest Albuterol every 2 hours as needed for wheezing. DuoNeb scheduled every 4 hours IV Steroids for COPD exacerbation wean fio2 for goal spo2 > 90% vent bundle, hob elevated. No spontaneous breathing trials due to severe hypoxemia CV: V. tach/V. fib arrest NSTEMI Cardiogenic shock Atrial fibrillation with RVR Acute systolic heart failure [facility] mechanical aortic valve (09/21/12 Dr. Gonzalez) s/p Tricuspid annuloplasty Continue Levophed to maintain map greater than 65-attempt wean to DC. continue milrinone infusion 0.25 mcg/kg/min Continue amiodarone infusion, and low-dose beta blockers for antiarrhythmic effect despite being on pressors s/p cath And PCI -proximal LAD and large diagonal 90% stenosis, 2 BMS stent 02/05, mid LAD vasospasm post PCI Continue aspirin, heparin drip. PTT therapeutic. Continue Lipitor 40 mg nightly Off IABP 02/08/18 by cardiology CAMERON 01/23/18no vegetation. Normal aortic mechanical valve with trivial aortic insufficiency. Tricuspid annuloplasty. Mild to moderate LV generalized hypokinesis EKG from emergency department demonstrated atrial flutter with rate in the 130s with ST depression in II/III/ F, V4 through V6 Gas Leak Inspector Helper is Romana Bartlett in NSB. Continue Bumex 1 mg every 8 hours, Diamox 500 mg IV for 3 days starting 2017 GI: Trickle feeds with Jevity Protonix for stress ulcer prophylactic Had normal EGD on 10/21/17 FEN/RENAL: BPH Acute kidney injury roberson due to aggressive diuresis. 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 Infectious disease following and will defer further antibiotic management to them. Follow-up urine and blood cultures The 2 sets of blood cultures that were obtained in [place] [facility] were reportedly drawn from the PICC line. Two peripheral blood cultures were drawn at [facility]-remains negative HEME: Chronic anemia Iron deficiency Continue ferrous sulfate 325 mill grams p.o. daily Received 2 units packed red cells in [place] [facility] ER due to anemia and shock. He does not appear to be actively bleeding, will monitor hgb and consult GI if showing signs of blood loss. ENDO: Euglycemic. PROPH: Heparin drip. Protonix for stress ulcer prophylaxis ACCESS: Right radial art line placed in the emergency department 02/04. Left IJ central line placed 02/05/18. Removed right upper extremity PICC. FULL CODE Patient is critically ill with fever, septic shock, NSTEMI, cardiogenic shock all life threatening without treatment. Now he is having recurrent V. fib/V. tach cardiac arrest. 4 times ventricular arrhythmia and cardiac arrest. Prognosis appears very poor. I have updated yesterday about high risk of mortality. Palliative care following, full code at this time CCT 45 minutes exclusive of separately billable procedures. Code Status: Full
[2018-02-11] MEDS: Milrinone Inj 20 MG in Sodium Chlor 0.9% Inj 80 ML IV.CONT SCH (08:42)
[2018-02-11] MEDS: Ferrous Sulfate 325 MG Tablet PO SCH (08:45)
[2018-02-11] MEDS: Pregabalin 75 MG Capsule PO SCH ×2 (08:45→20:38)
[2018-02-11] MEDS: Beneprotein Powder Packet G-TUBE SCH ×3 (08:48→17:29)
[2018-02-11] MEDS: Chlorhexidine 0.12% Oral Kit 15 ML UDC OROPHARYNG SCH ×2 (08:48→20:39)
[2018-02-11] MEDS: Potassium Chloride 25 MEQ Effervescent Tablet PO PRN (08:53)
[2018-02-11] MEDS: Digoxin Inj 500 MCG/2 ML Ampul IV.PUSH SCH ×2 (10:26→15:41)
--- NOTE | 2018-02-11 10:52 | P.PNADD ---
Addendum to Inpatient Note Additional information: Pt was seen and examined Full note to follow
[2018-02-11] MEDS: Amiodarone 200 MG Tablet G-TUBE SCH ×2 (12:02→20:38)
[2018-02-11] MEDS: Pantoprazole Inj 40 MG Vial IV.PUSH SCH (12:02)
[2018-02-11] MEDS: Heparin Drip 25,000 UNIT/250 ML BAG IV.CONT PRN (13:30)
[2018-02-11] MEDS: GENTAMICIN IV.SIG SCH (14:51)
[2018-02-11] MEDS: SODIUM CHLOR 0.9% IV.SIG SCH (14:51)
--- NOTE | 2018-02-11 16:47 | P.PNID ---
Subjective Remarks: off baloon pump, on pressors , doses increasing stool positive for C.diff Also heavy secretions yday. I started him on Meropenm Y sp Vfib codes Antibiotics: vanco gent meropenem Allergies/Adverse Reactions: Allergies No Known Allergies Allergy (Verified 02/04/18 18:10) Objective Vital Signs 02/10/18 18:25 02/10/18 19:00 02/10/18 20:00 Temperature 98.1 F Pulse Rate 64 62 Respiratory Rate 16 18 Blood Pressure 132/51 L Pulse Oximetry 91 L 02/10/18 21:04 02/10/18 23:00 02/11/18 00:00 Temperature 98.4 F Pulse Rate 64 Respiratory Rate 21 17 17 Blood Pressure 126/56 L Pulse Oximetry 93 L 97 02/11/18 00:55 02/11/18 03:00 02/11/18 03:57 Temperature 97.9 F Pulse Rate 62 Respiratory Rate 16 14 17 Blood Pressure 122/51 L Pulse Oximetry 95 97 99 02/11/18 04:00 02/11/18 07:00 02/11/18 07:30 Temperature 96.9 F L Pulse Rate 59 L Respiratory Rate 14 16 17 Blood Pressure 127/55 L Pulse Oximetry 95 97 02/11/18 10:00 02/11/18 11:00 02/11/18 13:11 Temperature 96.9 F L Pulse Rate 61 Respiratory Rate 18 15 14 Blood Pressure 109/68 Pulse Oximetry 98 99 99 02/11/18 15:00 Temperature 97.6 F Pulse Rate 62 Respiratory Rate 15 Blood Pressure 126/48 L Pulse Oximetry 95 Intake & Output 02/10/18 02/11/18 02/11/18 18:59 06:59 18:59 Intake Total 1178 / 1178 3153 / 3153 340 / 340 Output Total 1374 / 1374 1500 / 1500 Balance -196 / -196 1653 / 1653 340 / 340 Weight 55 kg Intake: IV 1178 / 1178 350 / 350 340 / 340 Cordarone Inj 450 MG In D5W Inj 214 / 214 241 ML @ 1 MG/MIN 33.33 mls/hr IV.CONT TITRATE PRN Rx#: [id number] Heparin/D5W 25,000 U/250 mL 25, 182 / 182 68 / 68 000 unit In 250 ml @ 800 UNITS/ HR 8 mls/hr IV.CONT TITRATE PRN Rx#:[id number] Versed Inj 50 mg In 50 ml @ 2 231 / 231 50 / 50 166 / 166 MG/HR 2 mls/hr IV.CONT TITRATE PRN Rx#:[id number] Primacor Inj 20 MG In NS Inj 80 204 / 204 132 / 132 ML @ Per Protocol IV.CONT .Q0M [facility] Rx#:[id number] Merrem Inj 2,000 MG In NS Inj 100 / 100 100 / 100 100 ML @ 200 mls/hr IV.SIG Q12H [facility] Rx#:[id number] Levophed-Dextrose 4 mg/250 ml 133 / 133 74 / 74 Drip 4 mg In 250 ml @ 2 MCG/MIN 7.5 mls/hr IV.SIG TITRATE PRN Rx#:[id number] KCl 10 mEq Premix Inj 10 meq In 0 / 0 100 ml @ 100 mls/hr IV.SIG Q1H [facility] Rx#:[id number] KCl 20 mEq Premix Inj 20 meq In 100 / 100 100 ml @ 50 mls/hr IV.SIG Q2H PRN Rx#:[id number] fentaNYL 10 mcg/mL Premix Drip 114 / 114 2,500 mcg In 250 ml @ 50 MCG/HR 5 mls/hr IV.SIG TITRATE PRN Rx #:[id number] Oral 220 / 220 Tube Feeding 170 / 170 Tube Irrigant 60 / 60 Other 2353 / 2353 Output: Urine 600 / 600 Stool 100 / 100 Urine Amount (Catheter) 1174 / 1174 800 / 800 Indwelling Temp Sensing 1174 / 1174 800 / 800 Catheter Gastric Drainage 100 / 100 100 / 100 Oral 100 / 100 100 / 100 Other: # Voids 3 Date of Last Bowel Movement 02/10/18 02/11/18 02/11/18 # Bowel Movements 1 1 02/11/18 03:40 Sputum - Endotracheal Gram Stain - Final 02/11/18 03:40 Sputum - Endotracheal Sputum Culture - Pending 02/11/18 03:54 Blood - Peripheral Aerobic Blood Culture - Pending 02/11/18 03:54 Blood - Peripheral Anaerobic Blood Culture - Pending 02/11/18 03:49 Blood - Peripheral Aerobic Blood Culture - Pending 02/11/18 03:49 Blood - Peripheral Anaerobic Blood Culture - Pending 02/05/18 00:42 Blood - Peripheral Aerobic Blood Culture - Final No growth in 5 days 02/05/18 00:42 Blood - Peripheral Anaerobic Blood Culture - Final No growth in 5 days 02/05/18 00:12 Blood - Peripheral Aerobic Blood Culture - Final No growth in 5 days 02/05/18 00:12 Blood - Peripheral Anaerobic Blood Culture - Final No growth in 5 days Lab - Hematology Results 02/10/18 02/11/18 05:35 03:45 WBC 10.5 9.0 RBC 3.70 L 3.68 L Hgb 11.2 L 11.1 L Hct 33.2 L 33.2 L MCV 89.9 90.0 MCH 30.4 30.2 MCHC 33.8 33.6 RDW 16.2 16.3 Plt Count 341 305 MPV 8.5 9.0 Neut % (Auto) 82.2 H Lymph % (Auto) 6.6 L [place] % (Auto) 10.7 H Eos % (Auto) 0.2 Baso % (Auto) 0.3 Neut # (Auto) 8.6 H Lymph # (Auto) 0.7 L [place] # (Auto) 1.1 H Eos # (Auto) 0.0 Baso # (Auto) 0.0 WBC Differential . Differential Comment Auto diff final Lab - Chemistry Results 02/09/18 02/09/18 02/09/18 15:52 15:52 23:00 Sodium 135 L 135 L Potassium 4.1 D 3.7 Chloride 92 L 92 L Carbon Dioxide 34.0 H 30.7 Anion Gap 9 12 BUN 21 H 22 H Creatinine 1.88 H 1.90 H Estimated GFR 36 L 36 L Random Glucose 153 H 141 H Calcium 8.1 L 8.4 L Magnesium 1.7 3.0 H D Total Bilirubin 0.7 AST 281 H ALT 48 Alkaline Phosphatase 149 H Troponin I 6.74 H* Total Protein 7.6 Albumin 2.4 L 02/09/18 02/10/18 02/10/18 23:00 05:35 13:10 Sodium 135 L 135 L Potassium Cancelled 3.3 L 4.0 Chloride 92 L 92 L Carbon Dioxide 31.2 32.3 H Anion Gap 12 11 BUN 23 H 25 H Creatinine 1.89 H 1.84 H Estimated GFR 36 L 37 L Random Glucose 128 H 131 H Calcium 8.3 L 8.3 L Magnesium 2.7 H Total Bilirubin 0.6 0.6 AST 157 H 118 H ALT 24 20 Alkaline Phosphatase 126 H 119 H Troponin I Total Protein 7.6 7.4 Albumin 2.2 L 2.2 L 02/11/18 03:45 Sodium 136 Potassium 3.3 L Chloride 94 L Carbon Dioxide 32.6 H Anion Gap 9 BUN 33 H Creatinine 1.89 H Estimated GFR 36 L Random Glucose 151 H Calcium 8.3 L Magnesium 2.3 Total Bilirubin 0.5 AST 74 H ALT 20 Alkaline Phosphatase 110 Troponin I Total Protein 7.5 Albumin 2.4 L Imaging: ITS Impressions Abdomen/Bladder Ultrasound 02/05/18 00:00 CONCLUSION: 1. No evidence of hydronephrosis. 2. The echogenicity of the kidneys is equal to that of the liver which can be seen with medical renal disease. 3. Simple cyst in right kidney. 4. Suboptimal visualization of the left kidney. 5. Small amount of free fluid along the spleen. This could represent an adjacent pleural effusion. Chest X-Ray 02/11/18 06:00 CONCLUSION: 1. Stable tubes and lines. 2. Improved aeration in the right lower lung zone. 3. Persistent left lower lung zone airspace disease and likely trace pleural effusion. Physical Exam: GENERAL: sedated intubated on vent and baloon pump; seen tight after the code SKIN: Warm and dry. HEAD: Atraumatic. Normocephalic. EYES: Pupils equal and round. No scleral icterus. No injection or drainage. ENT: No nasal bleeding or discharge. Mucous membranes pink and moist. NECK: Trachea midline. No JVD. CARDIOVASCULAR: Regular rate and rhythm. Mecahnical ballon pump sounds + diastolic blowing murmur on aortic valve point 1-2/6 today RESPIRATORY: No accessory muscle use. b/l rales to auscultation. Breath sounds equal bilaterally. GASTROINTESTINAL: Abdomen soft, non-tender, distended. Hepatic and splenic margins not palpable. : roberson in place with good amount of urine MUSCULOSKELETAL: Extremities without clubbing, cyanosis, or edema. No obvious deformities. warmt o cool to touch feet NEUROLOGICAL: sedated, eyes closed not following commands PSYCHIATRIC:unable to assess Assessment and Plan - Plan Sepsis C.diff ? VAP Previous MSSA sepsis with presumed PVE of aortic valve prosthesis, on treatment - tx included vanco+ gent w/o rifampin DOubt UTI Resp insufficiency, CHF EF < 20 % sp W[place] troponin peaked @ 32 cont vanco + gent as a part of PVE Rx will not add rifampin while on amio 2/2 interaction with amiodarone cont meropnem start C.diff tx: po vanco + IV flagyl pat Spears
--- NOTE | 2018-02-11 16:53 | ECG ---
Date Performed: 02/09/2018 Time Performed: 11:24:44 PTAGE: 62 years EKG: Sinus rhythm Indeterminate axis Possible septal infarct - age undetermined Inferior/lateral ST-T changes are nons pecific Consider inferior ischemia Abnormal ECG PREVIOUS TRACING : 02/05/2018 14.31 DOCTOR: Raudel Gaspar Interpretating Date/Time 02/11/2018 16:51:39
[2018-02-11 17:00] LABS: ABG Base Excess 4.8 mmol/L (-2-2); ABG PCO2 45 mmHg (38-42); ABG PO2 91 mmHG (61-120)
[2018-02-11] MEDS: fentaNYL 10 mcg/mL Premix Drip 2,500 MCG/250 ML BAG IV.SIG PRN (17:26)
[2018-02-11] MEDS: Potassium Chloride 20 MEQ Pwd Pkt G-TUBE SCH (20:39)
[2018-02-12] MEDS: Midazolam 50 MG/50 ML Inj 50 MG/50 ML BAG IV.CONT PRN ×4 (00:57→21:06)
[2018-02-12] MEDS: SODIUM CHLOR 0.9% IV.SIG SCH ×2 (02:11→15:04)
[2018-02-12] MEDS: GENTAMICIN IV.SIG SCH ×2 (02:11→15:04)
[2018-02-12] MEDS: Oral Hygiene Kit OROPHARYNG SCH ×4 (04:45→23:20)
[2018-02-12 04:48] LABS: Hematocrit 29.5 % (39.0-51.0); Hemoglobin 9.8 gm/dL (13.0-17.0); Mean Corpuscular HGB Conc 33.2 % (32.0-36.0); Mean Corpuscular Hemoglobin 30.1 pg (27.0-34.0); Mean Corpuscular Volume 90.8 fL (80.0-100.0); Mean Platelet Volume 9.1 fL (7.0-11.0); Platelet Count 345 th/mm3 (150-450); Red Blood Count 3.25 mil/mm3 (4.50-5.90); Red Cell Distribution Width 16.4 % (11.6-17.2); White Blood Count 11.3 th/mm3 (4.0-11.0)
--- NOTE | 2018-02-12 04:53 | XR ---
EXAM DATE: 02/12/2018 4:34 AM EDT AGE/SEX: 62 years / Male INDICATIONS: Shortness of breath, possible pulmonary disease. CLINICAL DATA: This is the patient's subsequent encounter. Patient reports that signs and symptoms h ave been present for 1 week and indicates a pain score of Nonresponsive. MEDICAL/SURGICAL HISTORY: Chronic obstructive pulmonary disease. CABG. COMPARISON: [facility], CHEST 1V SINGLE AP, 02/11/2018. . FINDINGS: Stable ETT and NGT. Persistent mild airspace disease and likely trace left pleural effusion. Cardiac mediastinal contours are stable. Remainder of the exam is unchanged. CONCLUSION: 1. No significant interval change. 2. Stable ETT and NGT. 3. Stable mild left lower lung zone airspace disease and likely trace pleural effusion. Electronically signed by: Danilo Perry MD 02/12/2018 4:52 AM EDT
[2018-02-12 04:57] LABS: Activated Partial Thrombo Time 45.2 sec (24.3-30.1); INR 1.4 Ratio; Prothrombin Time 13.7 sec (9.8-11.6)
[2018-02-12 05:18] LABS: Alanine Aminotransferase 16 U/L (12-78); Albumin 2.3 g/dL (3.4-5.0); Alkaline Phosphatase 87 U/L (45-117); Anion Gap 8 meq/L (5-15); Aspartate Aminotransferase 39 U/L (15-37); Blood Urea Nitrogen 47 mg/dL (7-18); Chloride 100 meq/L (98-107); Glomerular Filtration Rate 42 mL/min (>89); Glucose,Random 134 mg/dL (74-106); Magnesium 2.2 mg/dL (1.5-2.5); Sodium 138 meq/L (136-145); Vancomycin,Random 20.9 Comment
[2018-02-12] MEDS: Milrinone Inj 20 MG in Sodium Chlor 0.9% Inj 80 ML IV.CONT SCH ×2 (05:31→16:50)
[2018-02-12 05:37] LABS: Potassium 2.9 meq/L (3.5-5.1)
[2018-02-12] MEDS: Potassium Chloride 25 MEQ Effervescent Tablet PO PRN ×2 (05:44→22:15)
[2018-02-12] MEDS: Potassium Chlor 20 mEq Premix 20 MEQ/100 ML PIGGYBACK IV.SIG PRN ×2 (05:45→08:29)
--- NOTE | 2018-02-12 07:26 | P.PNCC ---
Subjective Subjective Remarks/Hospital Course: 62-year-old male with past medical history of [place] mechanical aortic valve (09/21/12 Dr. Gonzalez), on chronic anticoagulation with warfarin, atrial fibrillation postop from AVR , COPD on 2.5 L home O2, stroke in 2015 resulting in left-sided sensory deficits and neuropathy, osteoporosis with chronic low back pain. He was recently admitted to [facility] from 01/23 through 01/31/18 for MSSA bacteremia. It is believed that the original source of infection was a wound on his right index finger when electric drill slipped and created a puncture wound. He was discharged with right upper extremity PICC line receiving cefazolin 2 g IV every 8 hours and gentamicin 210 mg IV daily. He states that home health administered antibiotics at 17:00 and shortly thereafter he began having chills and rigors and sought medical attention at [facility]. He had no rash. Upon arrival, he was hypotensive in the low 80s. He was given 2 L S bolus but remained hypotensive so was started on Levophed. He then developed heart rate in the 140s, reportedly atrial flutter so he was started on Amiodarone drip in [place] and converted to sinus rhythm. He was transfused 2 units PRBC due to Hgb 9.3. His stool was nonbloody nonmelena but was Hemoccult positive. He was given zosyn and vancomycin. Critical care medicine was then contacted and accepted patient for transfer to [facility]. He denies tenderness/redness/drainage at PICC site. Aside from mechanical aortic valve, he has no other hardware or indwelling devices. He denies headache, cough, dysuria. He has had a few loose stools at home, but stools have sometimes been formed. He denies chest pain, does report some SOB. EKG at [place] had marked inferolateral ischemic changes. Obtained EKG upon arrival to [facility] which is improved. SUBJ 02/05: Patient remains critical ill appearing, complaints of chest tightness but denies pain. Remains on 8 mcg/min of Levophed to maintain map about 65. However increasing shortness of breath. Chest x-ray shows increasing pulmonary edema. Troponin was 27.5 currently on IV heparin therapeutic. Cardiology consult is pending at this time. I will stop on maintenance fluids give 40 mg IV Lasix and IV albumin 25 g 1. Patient is very critical patient and updated at the bedside 02/06: to optical lab technician last night for [facility] [place] with LAD stent complicated by vasospasm of the LAD. IABP placed. patient emergently intubated for acute hypoxic respiratory failure secondary to cardiogenic shock and pulmonary edema. started on milrinone at 0.375 mcg/kg/min and levophed. bumex drip started. remains critically ill. 02/07: Remains critically ill remains on Levophed and milrinone. Currently diuresing well with Bumex drip. IABP in place management per cardiology-good waveform and augmentation. Chest x-ray shows adequate positioning of IABP, diffuse bilateral pulmonary edema 02/08: Remains critical but showing some signs of improvement. Diuresing very well on Bumex infusion. Remains on Levophed and milrinone. IABP one-to-one with good augmentation management per cardiology. Chest x-ray shows improving edema but with persistent bilateral effusions. Will initiate weaning trials if tolerated 02/09: Still remains on pressors, unable to wean Levophed below 2 mcg/min. Milrinone currently on 0.375 mcg/kg/min. IABP removed yesterday. On sedation hold patient wakes up but remains lethargic. Weakly squeezes hand. Urine output excellent on Bumex, 4 L output in 24 hours. Will attempt CPAP today 02/10: Multiple episodes of V. fib V. tach arrest yesterday morning. Successfully resuscitated. Yesterday night had two-minute V. fib arrest return of spontaneous circulation in sinus rhythm after DC cardioversion 1. Currently remains on milrinone and low-dose Levophed. I will try to wean off Levophed introduce low-dose beta-rasheed due to recurrent arrhythmia. Keep potassium more than 4 magnesium more than 2 02/11: Patient still critical and cardiogenic shock requiring Levophed and milrinone. Urine output improved with adding Diamox. Approximately 2 L urine output in 24 hours, creatinine remained stable. Oxygenation slightly improved FiO2 reduced to 70% now. Overall prognosis remains poor family wants to continue aggressive care 02/12: Remains critical but slight improvement in oxygenation. But continues to require Levophed and milrinone the low-dose. Urine output remains adequate. Chest x-ray shows interval improvement. Creatinine remains stable to slightly improved. Add IV albumin to improve blood pressure and to promote diuresis. Objective Vital Signs / I&O: Vital Signs 02/11/18 07:30 02/11/18 10:00 02/11/18 11:00 Temperature 96.9 F L Pulse Rate 61 Respiratory Rate 17 18 15 Blood Pressure 109/68 Pulse Oximetry 97 98 99 02/11/18 13:11 02/11/18 15:00 02/11/18 16:40 Temperature 97.6 F Pulse Rate 62 Respiratory Rate 14 15 15 Blood Pressure 126/48 L Pulse Oximetry 99 95 97 02/11/18 18:43 02/11/18 19:00 02/11/18 20:00 Temperature 97.4 F L Pulse Rate 61 64 Respiratory Rate 16 16 Blood Pressure 112/66 Pulse Oximetry 94 L 02/11/18 20:45 02/11/18 22:35 02/11/18 23:00 Temperature 97.6 F Pulse Rate 63 Respiratory Rate 16 15 14 Blood Pressure 95/57 L Pulse Oximetry 95 95 94 L 02/11/18 23:52 02/12/18 03:00 02/12/18 03:12 Temperature 97.7 F Pulse Rate 62 63 63 Respiratory Rate 15 Blood Pressure 109/62 Pulse Oximetry 96 02/12/18 03:40 Temperature Pulse Rate Respiratory Rate 15 Blood Pressure Pulse Oximetry 96 Intake & Output 02/11/18 02/12/18 02/12/18 18:59 06:59 18:59 Intake Total 1026.375 / 1026.375 410 / 410 Output Total 480 / 480 1010 / 1010 Balance 546.375 / 546.375 -600 / -600 Weight 55.5 kg Intake: IV 751.375 / 751.375 300 / 300 Versed Inj 50 mg In 50 ml @ 2 256 / 256 100 / 100 MG/HR 2 mls/hr IV.CONT TITRATE PRN Rx#:[id number] Primacor Inj 20 MG In NS Inj 80 100 / 100 ML @ Per Protocol IV.CONT .Q0M [facility] Rx#:[id number] Gentamicin Inj 55 MG In NS Inj 101.375 / 101.375 100 ML @ 203 mls/hr IV.SIG Q12H [facility] Rx#:[id number] Merrem Inj 2,000 MG In NS Inj 100 / 100 100 ML @ 200 mls/hr IV.SIG Q12H [facility] Rx#:[id number] Levophed-Dextrose 4 mg/250 ml 74 / 74 Drip 4 mg In 250 ml @ 2 MCG/MIN 7.5 mls/hr IV.SIG TITRATE PRN Rx#:[id number] fentaNYL 10 mcg/mL Premix Drip 120 / 120 2,500 mcg In 250 ml @ 50 MCG/HR 5 mls/hr IV.SIG TITRATE PRN Rx #:[id number] Flagyl 500 MG Inj 100 ML @ 100 100 / 100 100 / 100 mls/hr IV.SIG Q8H [facility] Rx#: [id number] Oral Supplement 170 / 170 Tube Feeding 105 / 105 10 / 10 Tube Irrigant 100 / 100 Output: Urine 480 / 480 Urine Amount (Catheter) 1010 / 1010 Indwelling Temp Sensing 1010 / 1010 Catheter Other: Date of Last Bowel Movement 02/11/18 02/10/18 Result Diagrams: 02/12/18 03:55 02/12/18 03:55 Objective Remarks: GENERAL: Ill-appearing thin male with temporal wasting, intubated, sedated with Versed, fentanyl SKIN: cool and poorly perfused. HEAD: Atraumatic. Normocephalic. EYES: Pupils equal and round, 2 mm and reactive. No scleral icterus. No injection or drainage. ENT: No nasal bleeding or discharge. Orotracheally intubated NECK: Trachea midline. +ve JVD. left IJ TLC clean dry and dressing intact. CARDIOVASCULAR: Regular rate and rhythm, currently sinus rhythm. No murmurs rubs or gallops. on milrinone and Levophed. RESPIRATORY: intubated. fio2 55%, now reduce to 45%, PEEP 10. equal chest rise. Bilateral coarse rhonchi and and rales, at bases improved GASTROINTESTINAL: Abdomen soft, non-tender, nondistended. no guarding. VASC: Right radial art line in place with distal perfusion intact. right femoral IABP removed. no evidence of hematoma. distal pulses dopplerable. MUSCULOSKELETAL: Extremities without clubbing, cyanosis. No obvious deformities. NEUROLOGICAL: RASS -2. moves all extremities. no focal deficits. Heavy sedation limits neuro exam Assessment and Plan - Problem List (1) Septic shock Code(s): A41.9 - Sepsis, unspecified organism; R65.21 - Severe sepsis with septic shock Status: Acute (2) Staph aureus infection Code(s): A49.01 - Methicillin susceptible Staphylococcus aureus infection, unspecified site Status: Acute (3) NSTEMI (non-ST elevated myocardial infarction) Code(s): I21.4 - Non-ST elevation (NSTEMI) myocardial infarction Status: Acute (4) Status post mechanical aortic valve replacement Code(s): Z95.2 - Presence of prosthetic heart valve Status: Chronic (5) Chronic anticoagulation Code(s): Z79.01 - penitentiary (current) use of anticoagulants Status: Chronic (6) Chronic back pain Code(s): M54.9 - Dorsalgia, unspecified; G89.29 - Other chronic pain Status: Chronic (7) H/O aortic valve replacement Code(s): Z95.2 - Presence of prosthetic heart valve Status: Acute (8) Physical deconditioning Code(s): R53.81 - Other malaise Status: Chronic (9) BPH (benign prostatic hyperplasia) Code(s): N40.0 - Benign prostatic hyperplasia without lower urinary tract symptoms Status: Chronic (10) COPD with hypoxia Code(s): J44.9 - Chronic obstructive pulmonary disease, unspecified; R09.02 - Hypoxemia Status: Chronic - Assessment and Plan Plan: NEURO: History of stroke in 2015 Neuropathy left upper and lower extremity Chronic low back pain Keep heavily sedated with Versed and fentanyl for vent synchrony due to severe hypoxemia Goal RASS -2 until clinically improved Lortab 10/325 every 4 hours as needed for pain, Morphine as needed for breakthrough pain Continue Lyrica 150 mg p.o. twice daily. Hold Cymbalta 90 mg p.o. daily RESP: Severe Pulmonary edema Acute hypoxic respiratory failure COPD on 2.5 L home O2 Prior tobacco abuse Severely hypoxemic now showing some signs of improvement with 55% FiO2 PEEP of 10 Chest x-ray today shows interval improvement Albuterol every 2 hours as needed for wheezing. DuoNeb scheduled every 4 hours IV Steroids for COPD exacerbation wean fio2 for goal spo2 > 88% vent bundle, hob elevated. Start spontaneous breathing trials if PEEP can be reduced to less than 8 CV: V. tach/V. fib arrest NSTEMI Cardiogenic shock Acute systolic heart failure Atrial fibrillation with RVR [place] mechanical aortic valve (09/21/12 Dr. Gonzalez) s/p Tricuspid annuloplasty Continue Levophed to maintain map greater than 65, continue milrinone infusion 0.25 mcg/kg/min Continue amiodarone infusion, and low-dose beta blockers for antiarrhythmic effect despite being on pressors s/p cath And PCI -proximal LAD and large diagonal 90% stenosis, 2 BMS stent 02/05, mid LAD vasospasm post PCI Continue aspirin, heparin drip. PTT therapeutic. Continue Lipitor 40 mg nightly. Off IABP 02/08/18 [place] 01/23/18no vegetation. Normal aortic mechanical valve with trivial aortic insufficiency. Tricuspid annuloplasty. Mild to moderate LV generalized hypokinesis EKG from emergency department demonstrated atrial flutter with rate in the 130s with ST depression in II/III/ F, V4 through V6 Quarter Inspector is Romana Bartlett in [facility]. Continue Bumex 1 mg every 8 hours, Diamox 500 mg IV for 3 days starting 2017 GI: Trickle feeds with Jevity, not tolerating. Protonix for stress ulcer prophylactic Had normal EGD on 10/21/17 FEN/RENAL: BPH Acute kidney injury roberson due to aggressive diuresis. 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 difficile colitis PICC removed Continue cont vanco, gent and meropenem started C.diff tx: po vanco + IV flagyl 02/11/18 Infectious disease following and will defer further antibiotic management to them. The 2 sets of blood cultures that were obtained in [place] were reportedly drawn from the PICC line. Two peripheral blood cultures were drawn at [facility]-remains negative HEME: Chronic anemia Iron deficiency Continue ferrous sulfate 325 mill grams p.o. daily Received 2 units packed red cells in [place] ER due to anemia and shock. He does not appear to be actively bleeding, will monitor hgb and consult GI if showing signs of blood loss. ENDO: Euglycemic. PROPH: Heparin drip. Protonix for stress ulcer prophylaxis ACCESS: Right radial art line placed in the emergency department 02/04. Left IJ central line placed 02/05/18. Removed right upper extremity PICC. FULL CODE Patient is critically ill with fever, septic shock, NSTEMI, cardiogenic shock all life threatening without treatment. Now he is having recurrent V. fib/V. tach cardiac arrest. 4 times ventricular arrhythmia and cardiac arrest. Prognosis appears very poor. I have updated yesterday about high risk of mortality. Palliative care following, full code at this time CCT 35 minutes exclusive of separately billable procedures. Code Status: Full
[2018-02-12] MEDS: Pregabalin 75 MG Capsule PO SCH ×2 (08:25→20:21)
[2018-02-12] MEDS: Amiodarone 200 MG Tablet G-TUBE SCH ×2 (08:25→20:21)
[2018-02-12] MEDS: Spironolactone 50 MG Tablet PO SCH ×2 (08:26→17:07)
[2018-02-12] MEDS: Ferrous Sulfate 325 MG Tablet PO SCH (08:26)
[2018-02-12] MEDS: Senna/Docusate Sodium 8.6/50 MG Tablet PO SCH ×2 (08:26→20:21)
[2018-02-12] MEDS: Beneprotein Powder Packet G-TUBE SCH ×3 (08:26→17:07)
[2018-02-12] MEDS: MethylPREDNISolone Sod Succinate Inj 125 MG/2 ML Vial IV.PUSH SCH ×3 (08:27→23:19)
[2018-02-12] MEDS: Chlorhexidine 0.12% Oral Kit 15 ML UDC OROPHARYNG SCH ×2 (08:27→20:22)
[2018-02-12] MEDS: Albumin Human 25% Inj 100 ML IV.SIG SCH ×2 (08:27→20:20)
[2018-02-12] MEDS: Pantoprazole Inj 40 MG Vial IV.PUSH SCH (08:29)
[2018-02-12] MEDS: Potassium Chloride 20 MEQ Pwd Pkt G-TUBE SCH ×2 (09:56→23:19)
[2018-02-12] MEDS: Potassium Chlor 40 mEq Premix 40 MEQ/100 ML PIGGYBACK IV.SIG PRN ×2 (10:50→22:14)
[2018-02-12] MEDS ORDERED: Metoclopramide Inj 10 MG in Sodium Chlor 0.9% Inj 50 ML IV.SIG ONE (13:49)
[2018-02-12] MEDS ORDERED: Pharmacy Ordered Lab Info OTHER ONE (14:45)
[2018-02-12] MEDS ORDERED: Vancomycin Inj 1,000 MG in Sodium Chlor 0.9% Inj 250 ML IV.SIG ONE (16:00)
[2018-02-12] MEDS: Heparin Drip 25,000 UNIT/250 ML BAG IV.CONT PRN (23:20)
[2018-02-13] MEDS: Potassium Chlor 40 mEq Premix 40 MEQ/100 ML PIGGYBACK IV.SIG PRN (02:02)
[2018-02-13] MEDS: SODIUM CHLOR 0.9% IV.SIG SCH ×2 (02:03→14:58)
[2018-02-13] MEDS: GENTAMICIN IV.SIG SCH ×2 (02:03→14:58)
[2018-02-13] MEDS: Milrinone Inj 20 MG in Sodium Chlor 0.9% Inj 80 ML IV.CONT SCH ×2 (02:29→16:19)
[2018-02-13] MEDS: Midazolam 50 MG/50 ML Inj 50 MG/50 ML BAG IV.CONT PRN ×2 (04:27→22:33)
[2018-02-13] MEDS: Oral Hygiene Kit OROPHARYNG SCH ×3 (04:27→16:19)
[2018-02-13 04:33] LABS: Hematocrit 27.1 % (39.0-51.0); Hemoglobin 8.9 gm/dL (13.0-17.0); Mean Corpuscular HGB Conc 32.9 % (32.0-36.0); Mean Corpuscular Hemoglobin 29.8 pg (27.0-34.0); Mean Corpuscular Volume 90.6 fL (80.0-100.0); Mean Platelet Volume 8.9 fL (7.0-11.0); Platelet Count 271 th/mm3 (150-450); Red Blood Count 2.99 mil/mm3 (4.50-5.90); Red Cell Distribution Width 16.6 % (11.6-17.2); White Blood Count 7.2 th/mm3 (4.0-11.0)
[2018-02-13 04:41] LABS: Activated Partial Thrombo Time 67.9 sec (24.3-30.1); INR 1.3 Ratio; Prothrombin Time 13.4 sec (9.8-11.6)
--- NOTE | 2018-02-13 05:14 | XR ---
EXAM DATE: 02/13/2018 4:49 AM EDT AGE/SEX: 62 years / Male INDICATIONS: Respiratory disease. CLINICAL DATA: This is the patient's subsequent encounter. Patient reports that signs and symptoms h ave been present for 1 week and indicates a pain score of Nonresponsive. MEDICAL/SURGICAL HISTORY: Chronic obstructive pulmonary disease. CABG. COMPARISON: [facility], CHEST 1V SINGLE AP, 02/12/2018. . FINDINGS: 2 AP semierect portable views of the chest were obtained and again demonstrate that the patient is st atus post median sternotomy. An artificial heart valve is again noted. The endotracheal tube remains in place with the tip 3 cm above the renny. The nasogastric tube is again seen coursing through the esophagus and into the stomach. There is increased opacity now noted at the left lung base with parti al obscuration of the hemidiaphragm. The heart size remains at the upper limits of normal. The right lung is clear. CONCLUSION: Increased opacification now noted in the left lung base which could indicate infiltrate and/or effusi on. Electronically signed by: Charles Chun MD 02/13/2018 5:12 AM EDT
[2018-02-13 05:19] LABS: Alanine Aminotransferase 15 U/L (12-78); Albumin 2.8 g/dL (3.4-5.0); Alkaline Phosphatase 67 U/L (45-117); Anion Gap 7 meq/L (5-15); Aspartate Aminotransferase 26 U/L (15-37); Blood Urea Nitrogen 49 mg/dL (7-18); Calcium 8.2 mg/dL (8.5-10.1); Carbon Dioxide 27.2 meq/L (21.0-32.0); Chloride 110 meq/L (98-107); Glomerular Filtration Rate 54 mL/min (>89); Glucose,Random 122 mg/dL (74-106); Potassium 3.8 meq/L (3.5-5.1); Sodium 144 meq/L (136-145); Total Protein 6.7 g/dL (6.4-8.2)
[2018-02-13] MEDS: Albumin Human 25% Inj 100 ML IV.SIG SCH ×2 (09:25→22:28)
[2018-02-13] MEDS: Pregabalin 75 MG Capsule PO SCH ×2 (09:26→22:31)
[2018-02-13] MEDS: Ferrous Sulfate 325 MG Tablet PO SCH (09:26)
[2018-02-13] MEDS: Pantoprazole Inj 40 MG Vial IV.PUSH SCH (09:26)
[2018-02-13] MEDS: MethylPREDNISolone Sod Succinate Inj 125 MG/2 ML Vial IV.PUSH SCH ×2 (09:26→16:20)
[2018-02-13] MEDS ORDERED: Dextrose 50% in Water 50 ML Vial IV.PUSH PRN (09:27)
[2018-02-13] MEDS: Amiodarone 200 MG Tablet G-TUBE SCH ×2 (09:27→22:29)
[2018-02-13] MEDS: Potassium Chloride 25 MEQ Effervescent Tablet PO PRN (09:27)
--- NOTE | 2018-02-13 09:27 | P.PNCC ---
Subjective Subjective Remarks/Hospital Course: 62-year-old male with past medical history of [place] mechanical aortic valve (09/21/12 Dr. Gonzalez), on chronic anticoagulation with warfarin, atrial fibrillation postop from AVR , COPD on 2.5 L home O2, stroke in 2015 resulting in left-sided sensory deficits and neuropathy, osteoporosis with chronic low back pain. He was recently admitted to [facility] from 01/23 through 01/31/18 for MSSA bacteremia. It is believed that the original source of infection was a wound on his right index finger when electric drill slipped and created a puncture wound. He was discharged with right upper extremity PICC line receiving cefazolin 2 g IV every 8 hours and gentamicin 210 mg IV daily. He states that home health administered antibiotics at 17:00 and shortly thereafter he began having chills and rigors and sought medical attention at [facility]. He had no rash. Upon arrival, he was hypotensive in the low 80s. He was given 2 L S bolus but remained hypotensive so was started on Levophed. He then developed heart rate in the 140s, reportedly atrial flutter so he was started on Amiodarone drip in [place] and converted to sinus rhythm. He was transfused 2 units PRBC due to Hgb 9.3. His stool was nonbloody nonmelena but was Hemoccult positive. He was given zosyn and vancomycin. Critical care medicine was then contacted and accepted patient for transfer to [facility]. He denies tenderness/redness/drainage at PICC site. Aside from mechanical aortic valve, he has no other hardware or indwelling devices. He denies headache, cough, dysuria. He has had a few loose stools at home, but stools have sometimes been formed. He denies chest pain, does report some SOB. EKG at [place] had marked inferolateral ischemic changes. Obtained EKG upon arrival to [facility] which is improved. SUBJ 02/05: Patient remains critical ill appearing, complaints of chest tightness but denies pain. Remains on 8 mcg/min of Levophed to maintain map about 65. However increasing shortness of breath. Chest x-ray shows increasing pulmonary edema. Troponin was 27.5 currently on IV heparin therapeutic. Cardiology consult is pending at this time. I will stop on maintenance fluids give 40 mg IV Lasix and IV albumin 25 g 1. Patient is very critical patient and updated at the bedside 02/06: to clinical laboratory scientist last night for [facility] with LAD stent complicated by vasospasm of the LAD. IABP placed. patient emergently intubated for acute hypoxic respiratory failure secondary to cardiogenic shock and pulmonary edema. started on milrinone at 0.375 mcg/kg/min and levophed. bumex drip started. remains critically ill. 02/07: Remains critically ill remains on Levophed and milrinone. Currently diuresing well with Bumex drip. IABP in place management per cardiology-good waveform and augmentation. Chest x-ray shows adequate positioning of IABP, diffuse bilateral pulmonary edema 02/08: Remains critical but showing some signs of improvement. Diuresing very well on Bumex infusion. Remains on Levophed and milrinone. IABP one-to-one with good augmentation management per cardiology. Chest x-ray shows improving edema but with persistent bilateral effusions. Will initiate weaning trials if tolerated 02/09: Still remains on pressors, unable to wean Levophed below 2 mcg/min. Milrinone currently on 0.375 mcg/kg/min. IABP removed yesterday. On sedation hold patient wakes up but remains lethargic. Weakly squeezes hand. Urine output excellent on Bumex, 4 L output in 24 hours. Will attempt CPAP today 02/10: Multiple episodes of V. fib V. tach arrest yesterday morning. Successfully resuscitated. Yesterday night had two-minute V. fib arrest return of spontaneous circulation in sinus rhythm after DC cardioversion 1. Currently remains on milrinone and low-dose Levophed. I will try to wean off Levophed introduce low-dose beta-rasheed due to recurrent arrhythmia. Keep potassium more than 4 magnesium more than 2 02/11: Patient still critical and cardiogenic shock requiring Levophed and milrinone. Urine output improved with adding Diamox. Approximately 2 L urine output in 24 hours, creatinine remained stable. Oxygenation slightly improved FiO2 reduced to 70% now. Overall prognosis remains poor family wants to continue aggressive care 02/12: Remains critical but slight improvement in oxygenation. But continues to require Levophed and milrinone the low-dose. Urine output remains adequate. Chest x-ray shows interval improvement. Creatinine remains stable to slightly improved. Add IV albumin to improve blood pressure and to promote diuresis. 02/13 Patient remains intubated and sedated with Versed and fentanyl. Afebrile, off Levophed remains on Milrinone and Heparin drip. Objective Vital Signs / I&O: Vital Signs 02/12/18 09:30 02/12/18 09:50 02/12/18 11:00 Temperature 97.9 F Pulse Rate 58 L Respiratory Rate 18 16 18 Blood Pressure 122/55 L Pulse Oximetry 97 95 02/12/18 12:00 02/12/18 13:30 02/12/18 15:00 Temperature 97.4 F L Pulse Rate 60 Respiratory Rate 18 15 18 Blood Pressure 133/58 L Pulse Oximetry 94 L 94 L 02/12/18 17:15 02/12/18 19:00 02/12/18 20:45 Temperature 96.7 F L Pulse Rate 59 L Respiratory Rate 18 16 19 Blood Pressure 110/64 Pulse Oximetry 93 L 94 L 92 L 02/12/18 22:50 02/12/18 23:00 02/13/18 03:00 Temperature 96.9 F L 97.3 F L Pulse Rate 58 L 54 L Respiratory Rate 18 14 18 Blood Pressure 118/69 94/54 L Pulse Oximetry 97 97 02/13/18 03:12 02/13/18 07:00 Temperature 97.8 F Pulse Rate 56 L Respiratory Rate 17 18 Blood Pressure 105/59 L Pulse Oximetry 95 98 Intake & Output 02/12/18 02/13/18 02/13/18 18:59 06:59 18:59 Intake Total 1234.375 / 1234.375 668 / 668 Output Total 1000 / 1000 1220 / 1220 Balance 234.375 / 234.375 -552 / -552 Weight 56 kg Intake: IV 1201.375 / 1201.375 468 / 468 Heparin/D5W 25,000 U/250 mL 25, 68 / 68 000 unit In 250 ml @ 800 UNITS/ HR 8 mls/hr IV.CONT TITRATE PRN Rx#:[id number] Versed Inj 50 mg In 50 ml @ 2 50 / 50 100 / 100 MG/HR 2 mls/hr IV.CONT TITRATE PRN Rx#:[id number] Primacor Inj 20 MG In NS Inj 80 100 / 100 100 / 100 ML @ Per Protocol IV.CONT .Q0M [facility] Rx#:[id number] Flexbumin 25% Inj 100 ML @ 60 100 / 100 mls/hr IV.SIG Q12H [facility] Rx#: [id number] Gentamicin Inj 55 MG In NS Inj 101.375 / 101.375 100 ML @ 203 mls/hr IV.SIG Q12H [facility] Rx#:[id number] Merrem Inj 2,000 MG In NS Inj 100 / 100 100 ML @ 200 mls/hr IV.SIG Q12H [facility] Rx#:[id number] KCl 20 mEq Premix Inj 20 meq In 200 / 200 100 ml @ 50 mls/hr IV.SIG Q2H [facility] Rx#:[id number] KCl 40 mEq Premix Inj 40 meq In 100 / 100 100 / 100 100 ml @ 25 mls/hr IV.SIG Q2H [facility] Rx#:[id number] Vancomycin Inj 1,000 MG In NS 250 / 250 Inj 250 ML @ 250 mls/hr IV.SIG ONCE ONE Rx#:[id number] Flagyl 500 MG Inj 100 ML @ 100 200 / 200 100 / 100 mls/hr IV.SIG Q8H [facility] Rx#: [id number] Tube Feeding 33 / 33 50 / 50 Tube Irrigant 150 / 150 Output: Urine 1000 / 1000 Urine Amount (Catheter) 1220 / 1220 Indwelling Temp Sensing 1220 / 1220 Catheter Other: Date of Last Bowel Movement 02/12/18 02/12/18 # Bowel Movements 1 Result Diagrams: 02/13/18 03:45 02/13/18 03:45 Other Results: Laboratory Results - last 12 hr 02/10/18 02/12/18 02/13/18 16:40 20:35 03:45 WBC RBC Hgb Hct MCV MCH MCHC RDW Plt Count MPV PT 13.4 H INR 1.3 APTT 67.9 H D Puncture Site Cancelled Patient Temperature Cancelled O2 Saturation Cancelled ABG pH Cancelled ABG pCO2 Cancelled ABG pO2 Cancelled ABG HCO3 Cancelled ABG O2 Content Cancelled ABG Base Excess Cancelled ABG Methemoglobin Cancelled Frankie Test Cancelled Hemoglobin Cancelled Carboxyhemoglobin Cancelled O2 Delivery Device Cancelled Liter Flow Cancelled Vent Setting Cancelled Inspired O2 Cancelled Critical Value Cancelled Sodium Potassium 2.8 L* Chloride Carbon Dioxide Anion Gap BUN Creatinine Estimated GFR Random Glucose Calcium Magnesium Total Bilirubin AST ALT Alkaline Phosphatase Total Protein Albumin 02/13/18 02/13/18 03:45 03:45 WBC 7.2 RBC 2.99 L Hgb 8.9 L Hct 27.1 L MCV 90.6 MCH 29.8 MCHC 32.9 RDW 16.6 Plt Count 271 MPV 8.9 PT INR APTT Puncture Site Patient Temperature O2 Saturation ABG pH ABG pCO2 ABG pO2 ABG HCO3 ABG O2 Content ABG Base Excess ABG Methemoglobin Frankie Test Hemoglobin Carboxyhemoglobin O2 Delivery Device Liter Flow Vent Setting Inspired O2 Critical Value Sodium 144 Potassium 3.8 D Chloride 110 H D Carbon Dioxide 27.2 Anion Gap 7 BUN 49 H Creatinine 1.34 H Estimated GFR 54 L Random Glucose 122 H Calcium 8.2 L Magnesium 2.0 Total Bilirubin 0.4 AST 26 ALT 15 Alkaline Phosphatase 67 Total Protein 6.7 Albumin 2.8 L Imaging: Abdomen/Bladder Ultrasound 02/05/18 00:00 CONCLUSION: 1. No evidence of hydronephrosis. 2. The echogenicity of the kidneys is equal to that of the liver which can be seen with medical renal disease. 3. Simple cyst in right kidney. 4. Suboptimal visualization of the left kidney. 5. Small amount of free fluid along the spleen. This could represent an adjacent pleural effusion. Chest X-Ray 02/13/18 06:00 CONCLUSION: Increased opacification now noted in the left lung base which could indicate infiltrate and/or effusion. Objective Remarks: GENERAL: Ill-appearing thin male with temporal wasting, intubated, sedated with Versed, fentanyl SKIN: cool and poorly perfused. HEAD: Atraumatic. Normocephalic. EYES: Pupils equal and round, 2 mm and reactive. No scleral icterus. No injection or drainage. ENT: No nasal bleeding or discharge. Orotracheally intubated NECK: Trachea midline. +ve JVD. left IJ TLC clean dry and dressing intact. CARDIOVASCULAR: Regular rate and rhythm, currently sinus rhythm. No murmurs rubs or gallops. on milrinone and Levophed. RESPIRATORY: intubated. fio2 55%, now reduce to 45%, PEEP 10. equal chest rise. Bilateral coarse rhonchi and and rales, at bases improved GASTROINTESTINAL: Abdomen soft, non-tender, nondistended. no guarding. VASC: Right radial art line in place with distal perfusion intact. right femoral IABP removed. no evidence of hematoma. distal pulses dopplerable. MUSCULOSKELETAL: Extremities without clubbing, cyanosis. No obvious deformities. NEUROLOGICAL: RASS -2. moves all extremities. no focal deficits. Heavy sedation limits neuro exam Assessment and Plan - Problem List (1) Septic shock Code(s): A41.9 - Sepsis, unspecified organism; R65.21 - Severe sepsis with septic shock Status: Acute (2) Staph aureus infection Code(s): A49.01 - Methicillin susceptible Staphylococcus aureus infection, unspecified site Status: Acute (3) NSTEMI (non-ST elevated myocardial infarction) Code(s): I21.4 - Non-ST elevation (NSTEMI) myocardial infarction Status: Acute (4) Status post mechanical aortic valve replacement Code(s): Z95.2 - Presence of prosthetic heart valve Status: Chronic (5) Chronic anticoagulation Code(s): Z79.01 - exterminator (current) use of anticoagulants Status: Chronic (6) Chronic back pain Code(s): M54.9 - Dorsalgia, unspecified; G89.29 - Other chronic pain Status: Chronic (7) H/O aortic valve replacement Code(s): Z95.2 - Presence of prosthetic heart valve Status: Acute (8) Physical deconditioning Code(s): R53.81 - Other malaise Status: Chronic (9) BPH (benign prostatic hyperplasia) Code(s): N40.0 - Benign prostatic hyperplasia without lower urinary tract symptoms Status: Chronic (10) COPD with hypoxia Code(s): J44.9 - Chronic obstructive pulmonary disease, unspecified; R09.02 - Hypoxemia Status: Chronic - Assessment and Plan Plan: NEURO: History of stroke in 2015 Neuropathy left upper and lower extremity Chronic low back pain On Fentanyl and Versed infusion for sedation. Daily sedation vacation. Monitor neuro status Lortab 10/325 every 4 hours as needed for pain, Morphine as needed for breakthrough pain Continue Lyrica 150 mg p.o. twice daily. Hold Cymbalta 90 mg p.o. daily RESP: Severe Pulmonary edema Acute hypoxic respiratory failure COPD on 2.5 L home O2 Prior tobacco abuse Continue with vent support keep sats >92% On PRVC RR 10, TV 400, IT: 1.0, PEEP:10 FIO2: 45%. Decrease PEEP:5 SBT daily as garrett Albuterol every 2 hours as needed for wheezing. DuoNeb scheduled every 4 hours vent bundle, hob elevated. On Solumederol 60mg IV Q8 CV: V. tach/V. fib arrest NSTEMI Cardiogenic shock Acute systolic heart failure Atrial fibrillation with RVR [place] mechanical aortic valve (09/21/12 Dr. Gonzalez) s/p Tricuspid annuloplasty Off Levophed, continue milrinone infusion 0.25 mcg/kg/min Monitor HR and BP keep MAP>65mmHg s/p cath And PCI -proximal LAD and large diagonal 90% stenosis, 2 BMS stent 02/05, mid LAD vasospasm post PCI Continue aspirin,Plavix Amiodarone 400mg BID, Coreg 3.125mg BID, Bumex 1mg BID heparin drip. PTT therapeutic. Continue Lipitor 40 mg nightly. Off IABP [place] 01/23/18no vegetation. Normal aortic mechanical valve with trivial aortic insufficiency. Tricuspid annuloplasty. Mild to moderate LV generalized hypokinesis EKG from emergency department demonstrated atrial flutter with rate in the 130s with ST depression in II/III/ F, V4 through V6 Internet Marketing Intern is Romana Bartlett Continue Bumex 1 mg every 8 hours, Diamox 500 mg IV for 3 days starting 2017 GI: Trickle feeds with Jevity, not tolerating. Protonix for stress ulcer prophylactic Had normal EGD on 10/21/17 FEN/RENAL: BPH Acute kidney injury-improving roberson due to aggressive diuresis. 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 difficile colitis PICC removed Continue vanco, gent and meropenem C.diff tx: po vanco + IV flagyl 02/11/18 Infectious disease following 02/11 Sputum cx: Pseudomonas, GNR BC 02/11, 02/06: NGTD HEME: Chronic anemia Iron deficiency Continue ferrous sulfate 325 mill grams p.o. daily Received 2 units packed red cells in [place] ER due to anemia and shock. Monitor CBC ENDO: Euglycemic. PROPH: Heparin drip. Protonix for stress ulcer prophylaxis ACCESS: Right radial art line placed in the emergency department 02/04. Left IJ central line placed 02/05/18. Removed right upper extremity PICC. FULL CODE Patient is critically ill with fever, septic shock, NSTEMI, cardiogenic shock all life threatening without treatment. Now he is having recurrent V. fib/V. tach cardiac arrest. 4 times ventricular arrhythmia and cardiac arrest. Prognosis appears very poor. Palliative care following, full code at this time CCT 30 minutes exclusive of separately billable procedures.
[2018-02-13] MEDS: Chlorhexidine 0.12% Oral Kit 15 ML UDC OROPHARYNG SCH ×2 (10:12→22:29)
[2018-02-13] MEDS: Beneprotein Powder Packet G-TUBE SCH ×3 (10:12→17:37)
[2018-02-13] MEDS: Spironolactone 50 MG Tablet PO SCH ×2 (10:12→17:37)
[2018-02-13] MEDS: Potassium Chloride 20 MEQ Pwd Pkt G-TUBE SCH (10:13)
[2018-02-13] MEDS: Senna/Docusate Sodium 8.6/50 MG Tablet PO SCH ×2 (10:13→22:31)
--- NOTE | 2018-02-13 10:39 | P.PNADD ---
Addendum to Inpatient Note Additional information: Pt seen and examined Full note to follow
[2018-02-13] MEDS: Insulin NovoLOG Aspart Correctional Sugar Inj SQ SCH ×2 (12:04→17:04)
--- NOTE | 2018-02-13 14:13 | P.PNID ---
Subjective Remarks: improved clincally and tolerates CPAP cont to have large amounts of liquid stool afebrile Improved clinically sputum positive for Kleb and PSAE Antibiotics: vanco gent meropenem oral vanco iv flagyl Allergies/Adverse Reactions: Allergies No Known Allergies Allergy (Verified 02/04/18 18:10) Objective Vital Signs 02/12/18 15:00 02/12/18 17:15 02/12/18 19:00 Temperature 97.4 F L 96.7 F L Pulse Rate 60 59 L Respiratory Rate 18 18 16 Blood Pressure 133/58 L 110/64 Pulse Oximetry 94 L 93 L 94 L 02/12/18 20:45 02/12/18 22:50 02/12/18 23:00 Temperature 96.9 F L Pulse Rate 58 L Respiratory Rate 19 18 14 Blood Pressure 118/69 Pulse Oximetry 92 L 97 02/13/18 03:00 02/13/18 03:12 02/13/18 07:00 Temperature 97.3 F L 97.8 F Pulse Rate 54 L 56 L Respiratory Rate 18 17 18 Blood Pressure 94/54 L 105/59 L Pulse Oximetry 97 95 98 02/13/18 11:00 02/13/18 13:16 Temperature 97.9 F Pulse Rate 64 Respiratory Rate 18 19 Blood Pressure 122/62 Pulse Oximetry 96 99 Intake & Output 02/12/18 02/13/18 02/13/18 18:59 06:59 18:59 Intake Total 1234.375 / 1234.375 868 / 868 Output Total 1000 / 1000 1220 / 1220 Balance 234.375 / 234.375 -352 / -352 Weight 56 kg Intake: IV 1201.375 / 1201.375 668 / 668 Heparin/D5W 25,000 U/250 mL 25, 68 / 68 000 unit In 250 ml @ 800 UNITS/ HR 8 mls/hr IV.CONT TITRATE PRN Rx#:[id number] Versed Inj 50 mg In 50 ml @ 2 50 / 50 100 / 100 MG/HR 2 mls/hr IV.CONT TITRATE PRN Rx#:[id number] Primacor Inj 20 MG In NS Inj 80 100 / 100 100 / 100 ML @ Per Protocol IV.CONT .Q0M [facility] Rx#:[id number] Flexbumin 25% Inj 100 ML @ 60 100 / 100 100 / 100 mls/hr IV.SIG Q12H [facility] Rx#: [id number] Gentamicin Inj 55 MG In NS Inj 101.375 / 101.375 100 ML @ 203 mls/hr IV.SIG Q12H [facility] Rx#:[id number] Merrem Inj 2,000 MG In NS Inj 100 / 100 100 / 100 100 ML @ 200 mls/hr IV.SIG Q12H [facility] Rx#:[id number] KCl 20 mEq Premix Inj 20 meq In 200 / 200 100 ml @ 50 mls/hr IV.SIG Q2H [facility]N Rx#:[id number] KCl 40 mEq Premix Inj 40 meq In 100 / 100 100 / 100 100 ml @ 25 mls/hr IV.SIG Q2H [facility] Rx#:[id number] Vancomycin Inj 1,000 MG In NS 250 / 250 Inj 250 ML @ 250 mls/hr IV.SIG ONCE ONE Rx#:[id number] Flagyl 500 MG Inj 100 ML @ 100 200 / 200 100 / 100 mls/hr IV.SIG Q8H [facility] Rx#: [id number] Tube Feeding 33 / 33 50 / 50 Tube Irrigant 150 / 150 Output: Urine 1000 / 1000 Urine Amount (Catheter) 1220 / 1220 Indwelling Temp Sensing 1220 / 1220 Catheter Other: Date of Last Bowel Movement 02/12/18 02/12/18 # Bowel Movements 1 02/11/18 03:40 Sputum - Endotracheal Gram Stain - Final 02/11/18 03:40 Sputum - Endotracheal Sputum Culture - Preliminary Pseudomonas aeruginosa Klebsiella pneumoniae 02/11/18 03:54 Blood - Peripheral Aerobic Blood Culture - Preliminary No growth in 2 days 02/11/18 03:54 Blood - Peripheral Anaerobic Blood Culture - Preliminary No growth in 2 days 02/11/18 03:49 Blood - Peripheral Aerobic Blood Culture - Preliminary No growth in 2 days 02/11/18 03:49 Blood - Peripheral Anaerobic Blood Culture - Preliminary No growth in 2 days 02/05/18 00:42 Blood - Peripheral Aerobic Blood Culture - Final No growth in 5 days 02/05/18 00:42 Blood - Peripheral Anaerobic Blood Culture - Final No growth in 5 days 02/05/18 00:12 Blood - Peripheral Aerobic Blood Culture - Final No growth in 5 days 02/05/18 00:12 Blood - Peripheral Anaerobic Blood Culture - Final No growth in 5 days Lab - Hematology Results 02/12/18 02/13/18 03:55 03:45 WBC 11.3 H 7.2 RBC 3.25 L 2.99 L Hgb 9.8 L 8.9 L Hct 29.5 L 27.1 L MCV 90.8 90.6 MCH 30.1 29.8 MCHC 33.2 32.9 RDW 16.4 16.6 Plt Count 345 271 MPV 9.1 8.9 Lab - Chemistry Results 02/12/18 02/12/18 02/13/18 03:55 20:35 03:45 Sodium 138 144 Potassium 2.9 L* 2.8 L* 3.8 D Chloride 100 110 H D Carbon Dioxide 30.0 27.2 Anion Gap 8 7 BUN 47 H 49 H Creatinine 1.65 H 1.34 H Estimated GFR 42 L 54 L POC Glucose Random Glucose 134 H 122 H Calcium 8.0 L 8.2 L Magnesium 2.2 2.0 Total Bilirubin 0.4 0.4 AST 39 H 26 ALT 16 15 Alkaline Phosphatase 87 67 Total Protein 7.0 6.7 Albumin 2.3 L 2.8 L 02/13/18 12:03 Sodium Potassium Chloride Carbon Dioxide Anion Gap BUN Creatinine Estimated GFR POC Glucose 117 H Random Glucose Calcium Magnesium Total Bilirubin AST ALT Alkaline Phosphatase Total Protein Albumin Imaging: ITS Impressions Abdomen/Bladder Ultrasound 02/05/18 00:00 CONCLUSION: 1. No evidence of hydronephrosis. 2. The echogenicity of the kidneys is equal to that of the liver which can be seen with medical renal disease. 3. Simple cyst in right kidney. 4. Suboptimal visualization of the left kidney. 5. Small amount of free fluid along the spleen. This could represent an adjacent pleural effusion. Chest X-Ray 02/13/18 06:00 CONCLUSION: Increased opacification now noted in the left lung base which could indicate infiltrate and/or effusion. Physical Exam: GENERAL: sedated intubated on vent and baloon pump; seen tight after the code SKIN: Warm and dry. HEAD: Atraumatic. Normocephalic. EYES: Pupils equal and round. No scleral icterus. No injection or drainage. ENT: No nasal bleeding or discharge. Mucous membranes pink and moist. NECK: Trachea midline. No JVD. CARDIOVASCULAR: Regular rate and rhythm. Mecahnical ballon pump sounds + diastolic blowing murmur on aortic valve point 1-2/6 today RESPIRATORY: No accessory muscle use. b/l rales to auscultation. Breath sounds equal bilaterally. GASTROINTESTINAL: Abdomen soft, non-tender, not distended. Hepatic and splenic margins not palpable. : roberson in place with good amount of urine MUSCULOSKELETAL: Extremities without clubbing, cyanosis, or edema. No obvious deformities. warmt o cool to touch feet NEUROLOGICAL: sedated, eyes closed follows commands PSYCHIATRIC:unable to assess Assessment and Plan - Plan Sepsis C.diff ? VAP Previous MSSA sepsis with presumed PVE of aortic valve prosthesis, on treatment - tx included vanco+ gent w/o rifampin DOubt UTI Resp insufficiency, CHF EF < 20 % sp MD troponin peaked @ 32 cont vanco + gent as a part of PVE Rx will not add rifampin while on amio 2/2 interaction with amiodarone Rifampin can be added if amiodarone is discontinued change meropnem to cefepime and complete 7-14 days of PNA treatment will switch to cefazoline + gent + rif (if no amio) once complleted tx cont C.diff tx: po vanco + IV flagfroy stewart RN
[2018-02-14] MEDS: MethylPREDNISolone Sod Succinate Inj 125 MG/2 ML Vial IV.PUSH SCH ×4 (00:13→23:43)
[2018-02-14] MEDS: Insulin NovoLOG Aspart Correctional Sugar Inj SQ SCH ×5 (00:13→23:44)
[2018-02-14] MEDS: Oral Hygiene Kit OROPHARYNG SCH ×5 (00:13→23:44)
[2018-02-14] MEDS: SODIUM CHLOR 0.9% IV.SIG SCH ×2 (03:32→14:24)
[2018-02-14] MEDS: Chlorhexidine Gluconate 2% 1 Pack (2 Cloths) TOPICAL SCH (03:32)
[2018-02-14] MEDS: GENTAMICIN IV.SIG SCH ×2 (03:32→14:24)
[2018-02-14] MEDS ORDERED: Chlorhexidine Gluconate 2% 1 Pack (2 Cloths) TOPICAL PRN (04:00)
[2018-02-14] MEDS: Milrinone Inj 20 MG in Sodium Chlor 0.9% Inj 80 ML IV.CONT SCH (04:52)
[2018-02-14] MEDS: Midazolam 50 MG/50 ML Inj 50 MG/50 ML BAG IV.CONT PRN ×3 (04:53→19:10)
[2018-02-14] MEDS: Heparin Drip 25,000 UNIT/250 ML BAG IV.CONT PRN (07:02)
[2018-02-14 08:09] LABS: Baso % (Auto) 0.1 % (0.0-2.0); Hematocrit 25.7 % (39.0-51.0); Hemoglobin 8.5 gm/dL (13.0-17.0); Lymph # (Auto) 0.3 th/mm3 (1.0-4.8); Mean Corpuscular HGB Conc 32.9 % (32.0-36.0); Mean Corpuscular Hemoglobin 30.1 pg (27.0-34.0); Mean Corpuscular Volume 91.5 fL (80.0-100.0); Mono # (Auto) 0.3 th/mm3 (0.0-0.9); Mono % (Auto) 5.4 % (0.0-8.0); Neut # (Auto) 5.3 th/mm3 (1.8-7.7); Neut % (Auto) 89.5 % (16.0-70.0); Platelet Count 261 th/mm3 (150-450); Red Blood Count 2.81 mil/mm3 (4.50-5.90); Red Cell Distribution Width 16.8 % (11.6-17.2); White Blood Count 5.9 th/mm3 (4.0-11.0)
[2018-02-14 08:35] LABS: Albumin 3.1 g/dL (3.4-5.0); Anion Gap 8 meq/L (5-15); Aspartate Aminotransferase 25 U/L (15-37); Blood Urea Nitrogen 48 mg/dL (7-18); Calcium 8.6 mg/dL (8.5-10.1); Carbon Dioxide 25.8 meq/L (21.0-32.0); Chloride 112 meq/L (98-107); Glomerular Filtration Rate 59 mL/min (>89); Glucose,Random 141 mg/dL (74-106); Magnesium 2.2 mg/dL (1.5-2.5); Potassium 3.2 meq/L (3.5-5.1); Sodium 146 meq/L (136-145)
[2018-02-14 08:39] LABS: Alanine Aminotransferase 33 U/L (12-78); Alkaline Phosphatase 56 U/L (45-117); Phosphorus 2.7 mg/dL (2.5-4.9); Total Protein 6.7 g/dL (6.4-8.2); Vancomycin,Random 15.3 Comment
[2018-02-14 08:56] LABS: Lymphocytes 8 % (9-44); Metamyelocytes 1 % (0-1); Monocytes 4 % (0-8)
[2018-02-14 08:57] LABS: Platelet Estimate Normal (Normal); Platelet Morphology Normal (Normal)
[2018-02-14] MEDS: Albumin Human 25% Inj 100 ML IV.SIG SCH (09:14)
[2018-02-14] MEDS: Pregabalin 75 MG Capsule PO SCH ×2 (09:15→20:32)
[2018-02-14] MEDS: Amiodarone 200 MG Tablet G-TUBE SCH ×2 (09:15→23:37)
[2018-02-14] MEDS: Pantoprazole Inj 40 MG Vial IV.PUSH SCH (09:15)
[2018-02-14] MEDS: Senna/Docusate Sodium 8.6/50 MG Tablet PO SCH ×2 (09:15→20:30)
[2018-02-14] MEDS: Beneprotein Powder Packet G-TUBE SCH ×3 (09:16→17:44)
[2018-02-14] MEDS: Chlorhexidine 0.12% Oral Kit 15 ML UDC OROPHARYNG SCH ×2 (09:16→20:32)
[2018-02-14 09:32] LABS: ABG Base Excess 0.2 mmol/L (-2-2); ABG PCO2 36 mmHg (38-42); ABG PO2 75 mmHG (61-120)
--- NOTE | 2018-02-14 09:37 | P.PNCC ---
Subjective Subjective Remarks/Hospital Course: 62-year-old male with past medical history of [place] mechanical aortic valve (09/21/12 Dr. Gonzalez), on chronic anticoagulation with warfarin, atrial fibrillation postop from AVR , COPD on 2.5 L home O2, stroke in 2015 resulting in left-sided sensory deficits and neuropathy, osteoporosis with chronic low back pain. He was recently admitted to [facility] from 01/23 through 01/31/18 for MSSA bacteremia. It is believed that the original source of infection was a wound on his right index finger when electric drill slipped and created a puncture wound. He was discharged with right upper extremity PICC line receiving cefazolin 2 g IV every 8 hours and gentamicin 210 mg IV daily. He states that home health administered antibiotics at 17:00 and shortly thereafter he began having chills and rigors and sought medical attention at [facility]. He had no rash. Upon arrival, he was hypotensive in the low 80s. He was given 2 L S bolus but remained hypotensive so was started on Levophed. He then developed heart rate in the 140s, reportedly atrial flutter so he was started on Amiodarone drip in [place] and converted to sinus rhythm. He was transfused 2 units PRBC due to Hgb 9.3. His stool was nonbloody nonmelena but was Hemoccult positive. He was given zosyn and vancomycin. Critical care medicine was then contacted and accepted patient for transfer to [facility]. He denies tenderness/redness/drainage at PICC site. Aside from mechanical aortic valve, he has no other hardware or indwelling devices. He denies headache, cough, dysuria. He has had a few loose stools at home, but stools have sometimes been formed. He denies chest pain, does report some SOB. EKG at [place] had marked inferolateral ischemic changes. Obtained EKG upon arrival to [facility] which is improved. SUBJ 02/05: Patient remains critical ill appearing, complaints of chest tightness but denies pain. Remains on 8 mcg/min of Levophed to maintain map about 65. However increasing shortness of breath. Chest x-ray shows increasing pulmonary edema. Troponin was 27.5 currently on IV heparin therapeutic. Cardiology consult is pending at this time. I will stop on maintenance fluids give 40 mg IV Lasix and IV albumin 25 g 1. 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 IABP placed. patient emergently intubated for acute hypoxic respiratory failure secondary to cardiogenic shock and pulmonary edema. started on milrinone at 0.375 mcg/kg/min and levophed. bumex drip started. remains critically ill. 02/07: Remains critically ill remains on Levophed and milrinone. Currently diuresing well with Bumex drip. IABP in place management per cardiology-good waveform and augmentation. Chest x-ray shows adequate positioning of IABP, diffuse bilateral pulmonary edema 02/08: Remains critical but showing some signs of improvement. Diuresing very well on Bumex infusion. Remains on Levophed and milrinone. IABP one-to-one with good augmentation management per cardiology. Chest x-ray shows improving edema but with persistent bilateral effusions. Will initiate weaning trials if tolerated 02/09: Still remains on pressors, unable to wean Levophed below 2 mcg/min. Milrinone currently on 0.375 mcg/kg/min. IABP removed yesterday. On sedation hold patient wakes up but remains lethargic. Weakly squeezes hand. Urine output excellent on Bumex, 4 L output in 24 hours. Will attempt CPAP today 02/10: Multiple episodes of V. fib V. tach arrest yesterday morning. Successfully resuscitated. Yesterday night had two-minute V. fib arrest return of spontaneous circulation in sinus rhythm after DC cardioversion 1. Currently remains on milrinone and low-dose Levophed. I will try to wean off Levophed introduce low-dose beta-rasheed due to recurrent arrhythmia. Keep potassium more than 4 magnesium more than 2 02/11: Patient still critical and cardiogenic shock requiring Levophed and milrinone. Urine output improved with adding Diamox. Approximately 2 L urine output in 24 hours, creatinine remained stable. Oxygenation slightly improved FiO2 reduced to 70% now. Overall prognosis remains poor family wants to continue aggressive care 02/12: Remains critical but slight improvement in oxygenation. But continues to require Levophed and milrinone the low-dose. Urine output remains adequate. Chest x-ray shows interval improvement. Creatinine remains stable to slightly improved. Add IV albumin to improve blood pressure and to promote diuresis. 02/13 Patient remains intubated and sedated with Versed and fentanyl. Afebrile, off Levophed remains on Milrinone and Heparin drip. SUBJECTIVE: 02/14: Hypothermic overnight. Remains on milrinone and heparin drips. Tolerating tube feeds at 20 cc now. Positive BM. No changes neurologically Objective Vital Signs / I&O: Vital Signs 02/13/18 11:00 02/13/18 11:05 02/13/18 13:16 Temperature 97.9 F Pulse Rate 64 Respiratory Rate 18 22 19 Blood Pressure 122/62 Pulse Oximetry 96 98 99 02/13/18 15:00 02/13/18 18:29 02/13/18 20:15 Temperature 98.0 F Pulse Rate 77 Respiratory Rate 18 20 Blood Pressure 116/52 L Pulse Oximetry 92 L 92 L 90 L 02/13/18 20:30 02/13/18 23:00 02/14/18 01:32 Temperature 96.4 F L Pulse Rate 60 Respiratory Rate 14 14 Blood Pressure 107/62 Pulse Oximetry 95 92 L 97 02/14/18 03:00 02/14/18 04:12 02/14/18 07:50 Temperature 97.5 F L Pulse Rate 55 L Respiratory Rate 15 14 14 Blood Pressure 107/62 Pulse Oximetry 93 L 93 L 98 Intake & Output 02/13/18 02/14/18 02/14/18 18:59 06:59 18:59 Intake Total 871.375 / 871.375 834 / 834 Output Total 940 / 940 2100 / 2100 Balance -68.625 / -68.625 -1266 / -1266 Weight 59 kg Intake: IV 651.375 / 651.375 600 / 600 Heparin/D5W 25,000 U/250 mL 25, 250 / 250 000 unit In 250 ml @ 800 UNITS/ HR 8 mls/hr IV.CONT TITRATE PRN Rx#:[id number] Versed Inj 50 mg In 50 ml @ 2 50 / 50 50 / 50 MG/HR 2 mls/hr IV.CONT TITRATE PRN Rx#:[id number] Primacor Inj 20 MG In NS Inj 80 100 / 100 100 / 100 ML @ Per Protocol IV.CONT .Q0M [facility] Rx#:[id number] Flexbumin 25% Inj 100 ML @ 60 100 / 100 100 / 100 mls/hr IV.SIG Q12H [facility] Rx#: [id number] Maxipime Inj 2,000 MG In NS Inj 100 / 100 100 ML @ 200 mls/hr IV.SIG Q12H [facility] Rx#:[id number] Gentamicin Inj 55 MG In NS Inj 101.375 / 101.375 100 ML @ 203 mls/hr IV.SIG Q12H [facility] Rx#:[id number] Flagyl 500 MG Inj 100 ML @ 100 200 / 200 100 / 100 mls/hr IV.SIG Q8H [facility] Rx#: [id number] Tube Feeding 120 / 120 114 / 114 Tube Irrigant 100 / 100 Water Bolus Amount 120 / 120 Output: Urine 940 / 940 Stool 200 / 200 Urine Amount (Catheter) 1900 / 1900 Indwelling Temp Sensing 1900 / 1900 Catheter Other: Date of Last Bowel Movement 02/14/18 Result Diagrams: 02/14/18 05:17 02/14/18 05:17 Other Results: Microbiology 02/11/18 03:40 Sputum - Endotracheal Gram Stain - Final 02/11/18 03:40 Sputum - Endotracheal Sputum Culture - Preliminary Pseudomonas aeruginosa Klebsiella pneumoniae 02/11/18 03:54 Blood - Peripheral Aerobic Blood Culture - Preliminary No growth in 2 days 02/11/18 03:54 Blood - Peripheral Anaerobic Blood Culture - Preliminary No growth in 2 days 02/11/18 03:49 Blood - Peripheral Aerobic Blood Culture - Preliminary No growth in 2 days 02/11/18 03:49 Blood - Peripheral Anaerobic Blood Culture - Preliminary No growth in 2 days 02/05/18 00:42 Blood - Peripheral Aerobic Blood Culture - Final No growth in 5 days 02/05/18 00:42 Blood - Peripheral Anaerobic Blood Culture - Final No growth in 5 days 02/05/18 00:12 Blood - Peripheral Aerobic Blood Culture - Final No growth in 5 days 02/05/18 00:12 Blood - Peripheral Anaerobic Blood Culture - Final No growth in 5 days 02/06/18 14:00 Sputum - Endotracheal Gram Stain - Final 02/06/18 14:00 Sputum - Endotracheal Sputum Culture - Final Moderate growth normal respiratory ursula Imaging: Abdomen/Bladder Ultrasound 02/05/18 00:00 CONCLUSION: 1. No evidence of hydronephrosis. 2. The echogenicity of the kidneys is equal to that of the liver which can be seen with medical renal disease. 3. Simple cyst in right kidney. 4. Suboptimal visualization of the left kidney. 5. Small amount of free fluid along the spleen. This could represent an adjacent pleural effusion. Chest X-Ray 02/05/18 01:14 CONCLUSION: 1. Left IJ central venous catheter now in place with tip at the cavoatrial junction. No evidence of pneumothorax. 2. Mild bilateral interstitial pulmonary opacity. Chest X-Ray 02/05/18 12:32 CONCLUSION: 1. Mild apparent increase in bilateral pulmonary infiltrates most characteristic of pulmonary edema. 2. Mild blunting of the costophrenic angles which could indicate small effusions. There is mild cardiomegaly again noted. Chest X-Ray 02/05/18 22:35 CONCLUSION: Increasing bilateral pulmonary infiltrates characteristic of pulmonary edema and increasing consolidation in the left lower lobe. Chest X-Ray 02/05/18 23:48 CONCLUSION: 1. Persistent bihilar mixed interstitial and airspace process suggesting some degree of vascular congestion or volume overload. No change. 2. Persistent left basilar consolidation/effusion. No change. 3. Interval placement of an endotracheal tube with the tip appropriately positioned above the renny Chest X-Ray 02/06/18 06:00 CONCLUSION: 1. Persistent bilateral, predominantly perihilar mixed interstitial and airspace process suggesting some degree of vascular congestion or volume overload. 2. Persistent left basilar consolidation/effusion. 3. Stable position of life-support tubes. Chest X-Ray 02/06/18 21:40 CONCLUSION: 1. Tip of balloon pump projecting over the junction of the aortic arch and the descending thoracic aorta. This is in good position. 2. Diffuse mixed interstitial and alveolar consolidation likely related to edema. 3. Suspected bilateral effusions. Chest X-Ray 02/08/18 06:00 CONCLUSION: 1. Improving radiographic appearance of the chest with resolving pulmonary edema. 2. Persistent bibasilar airspace disease with probable associated left-sided effusion. 3. Stable position of life-support tubes. Chest X-Ray 02/09/18 00:00 CONCLUSION: Nasogastric tube has been advanced into the stomach. Otherwise no significant change; bilateral airspace opacities and small effusions persist. Chest X-Ray 02/09/18 07:06 CONCLUSION: 1. Left lung base opacity is present may be due to a combination of consolidation and or pleural effusion. 2. The tip of the NG tube is in distal esophagus and is to be advanced. Chest X-Ray 02/09/18 15:00 CONCLUSION: Bilateral lower lobe atelectasis versus pneumonia. There has been no significant change when compared to the prior exam. Chest X-Ray 02/10/18 06:00 CONCLUSION: 1. No significant interval change. 2. Stable bilateral lower lobe airspace disease with trace pleural effusions. Chest X-Ray 02/11/18 06:00 CONCLUSION: 1. Stable tubes and lines. 2. Improved aeration in the right lower lung zone. 3. Persistent left lower lung zone airspace disease and likely trace pleural effusion. Chest X-Ray 02/12/18 06:00 CONCLUSION: 1. No significant interval change. 2. Stable ETT and NGT. 3. Stable mild left lower lung zone airspace disease and likely trace pleural effusion. Chest X-Ray 02/13/18 06:00 CONCLUSION: Increased opacification now noted in the left lung base which could indicate infiltrate and/or effusion. Objective Remarks: GENERAL: 62-year-old male currently orotracheally intubated SKIN: cool and poorly perfused. No rash or skin breakdown HEAD: Atraumatic. Normocephalic. EYES: Pupils equal and round, 2 mm and reactive. No scleral icterus. No injection or drainage. ENT: No nasal bleeding or discharge. Orotracheally intubated NECK: Trachea midline. + JVD. left IJ TLC clean dry and dressing intact. CARDIOVASCULAR: RRR. S1, S2. No S4. No murmurs rubs or gallops. RESPIRATORY: Bilateral coarse rhonchi and and rales, at bases improved GASTROINTESTINAL: Abdomen soft, non-tender, nondistended. no guarding. VASC: Right radial art line in place with distal perfusion intact. right femoral IABP removed. no evidence of hematoma. distal pulses dopplerable. MUSCULOSKELETAL: Extremities with trace bilateral lower extremity edema NEUROLOGICAL: RASS -2. moves all extremities. no focal deficits. Heavy sedation limits neuro exam Assessment and Plan - Assessment and Plan Plan: NEURO/PSYCH: History of stroke in 2015 Neuropathy left upper and lower extremity Chronic low back pain On Fentanyl drip at 150 micrograms per hour and midazolam drip at 9 mg an hour for sedation/analgesia while intubated Goal of RA SS -2 Daily sedation vacation Monitor neuro status Continue pregabalin 150 mg p.o. twice daily. Hold duloxetine 90 mg p.o. daily RESP: Acute hypoxic respiratory failure COPD on 2.5 L home O2 Prior tobacco abuse Continue with vent support keep sats >92% On PRVC RR 10, TV 400, IT: 1.0, PEEP:5 FIO2: 45%. Albuterol/ipratropium aerosols every 4 hours with albuterol aerosols every 2 hours as needed for dyspnea SBT daily as garrett vent bundle, hob elevated. On methylprednisolone succinate 60mg IV Q8 CV: V. tach/V. fib arrest NSTEMI Cardiogenic shock Acute systolic heart failure Atrial fibrillation with RVR [place] mechanical aortic valve (09/21/12 Dr. Gonzalez) s/p Tricuspid annuloplasty Off Levophed, continue milrinone infusion 0.5 mcg/kg/min Monitor HR and BP keep MAP>65mmHg s/p cath And PCI -proximal LAD and large diagonal 90% stenosis, 2 BMS stent 02/05, mid LAD vasospasm post PCI Continue aspirin 81 mg daily, clopidogrel 75 mg daily, amiodarone 400mg TID, carvedilol 3.125mg BID, Bumetanide 1mg IV BID and Spironolactone 50 mg twice daily heparin drip currently at 800 units an hour. PTT therapeutic. Continue atorvastatin 40 mg nightly. Off IABP 02/08/18 [place] 01/23/18no vegetation. Normal aortic mechanical valve with trivial aortic insufficiency. Tricuspid annuloplasty. Mild to moderate LV generalized hypokinesis EKG from emergency department demonstrated atrial flutter with rate in the 130s with ST depression in II/III/ F, V4 through V6 Conical Mixer is Romana Bartlett GI: Trickle feeds with Jevity 1.5 currently at 20 cc an hour. Advance to 50 cc an hour per nutrition recommendation. Lansoprazole for stress ulcer prophylactic Had normal EGD on 10/21/17 FEN/RENAL: BPH Acute kidney injury-improving roberson due to aggressive diuresis. close monitoring of uop Monitor renal function, I/O's Creatinine slowly normalizing. Recheck BMP in a.m. 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 difficile colitis PICC removed Continue IV vancomycin, IV gentamicin and IV cefepime C.diff tx: po vanco + IV flagyl 02/11/18 Infectious disease following 02/11 Sputum cx: Pseudomonas, GNR BC 02/11, 02/06: NGTD HEME: Chronic anemia Iron deficiency Continue ferrous sulfate 300 milligrams liquid daily. Received 2 units packed red cells in [place] ER due to anemia and shock. Monitor CBC ENDO: Pain scale insulin to maintain euglycemia PROPH: Heparin drip. Protonix for stress ulcer prophylaxis ACCESS: Right radial art line placed in the emergency department 02/04. Left IJ central line placed 02/05/18. Removed right upper extremity PICC. CCT 30 minutes exclusive of separately billable procedures.
[2018-02-14] MEDS: Potassium Chloride 10 MEQ ER Capsule G-TUBE SCH ×2 (09:45→20:31)
[2018-02-14] MEDS: Spironolactone 50 MG Tablet PO SCH ×2 (10:35→17:44)
[2018-02-14] MEDS: Potassium Chlor 40 mEq Premix 40 MEQ/100 ML PIGGYBACK IV.SIG PRN (10:35)
--- NOTE | 2018-02-14 12:27 | P.PNID ---
Subjective Remarks: failed CPAP afebrile off pressors + moderate amount of stool remains on vent , large amount of secrteitons Antibiotics: vanco gent cefepime oral vanco iv flagyl Allergies/Adverse Reactions: Allergies No Known Allergies Allergy (Verified 02/04/18 18:10) Objective Vital Signs 02/13/18 13:16 02/13/18 15:00 02/13/18 18:29 Temperature 98.0 F Pulse Rate 77 Respiratory Rate 19 18 Blood Pressure 116/52 L Pulse Oximetry 99 92 L 92 L 02/13/18 20:15 02/13/18 20:30 02/13/18 23:00 Temperature 96.4 F L Pulse Rate 60 Respiratory Rate 20 14 Blood Pressure 107/62 Pulse Oximetry 90 L 95 92 L 02/14/18 01:32 02/14/18 03:00 02/14/18 04:12 Temperature 97.5 F L Pulse Rate 55 L Respiratory Rate 14 15 14 Blood Pressure 107/62 Pulse Oximetry 97 93 L 93 L 02/14/18 07:00 02/14/18 07:50 02/14/18 11:32 Temperature 97.9 F Pulse Rate 72 62 Respiratory Rate 21 14 14 Blood Pressure 121/63 Pulse Oximetry 98 100 Intake & Output 02/13/18 02/14/18 02/14/18 18:59 06:59 18:59 Intake Total 871.375 / 871.375 834 / 834 Output Total 940 / 940 2100 / 2100 Balance -68.625 / -68.625 -1266 / -1266 Weight 59 kg Intake: IV 651.375 / 651.375 600 / 600 Heparin/D5W 25,000 U/250 mL 25, 250 / 250 000 unit In 250 ml @ 800 UNITS/ HR 8 mls/hr IV.CONT TITRATE PRN Rx#:[id number] Versed Inj 50 mg In 50 ml @ 2 50 / 50 50 / 50 MG/HR 2 mls/hr IV.CONT TITRATE PRN Rx#:[id number] Primacor Inj 20 MG In NS Inj 80 100 / 100 100 / 100 ML @ Per Protocol IV.CONT .Q0M [facility] Rx#:[id number] Flexbumin 25% Inj 100 ML @ 60 100 / 100 100 / 100 mls/hr IV.SIG Q12H [facility] Rx#: [id number] Maxipime Inj 2,000 MG In NS Inj 100 / 100 100 ML @ 200 mls/hr IV.SIG Q12H [facility] Rx#:[id number] Gentamicin Inj 55 MG In NS Inj 101.375 / 101.375 100 ML @ 203 mls/hr IV.SIG Q12H [facility] Rx#:[id number] Flagyl 500 MG Inj 100 ML @ 100 200 / 200 100 / 100 mls/hr IV.SIG Q8H [facility] Rx#: [id number] Tube Feeding 120 / 120 114 / 114 Tube Irrigant 100 / 100 Water Bolus Amount 120 / 120 Output: Urine 940 / 940 Stool 200 / 200 Urine Amount (Catheter) 1900 / 1900 Indwelling Temp Sensing 1900 / 1900 Catheter Other: Date of Last Bowel Movement 02/14/18 02/11/18 03:54 Blood - Peripheral Aerobic Blood Culture - Preliminary No growth in 3 days 02/11/18 03:54 Blood - Peripheral Anaerobic Blood Culture - Preliminary No growth in 3 days 02/11/18 03:49 Blood - Peripheral Aerobic Blood Culture - Preliminary No growth in 3 days 02/11/18 03:49 Blood - Peripheral Anaerobic Blood Culture - Preliminary No growth in 3 days 02/11/18 03:40 Sputum - Endotracheal Gram Stain - Final 02/11/18 03:40 Sputum - Endotracheal Sputum Culture - Preliminary Pseudomonas aeruginosa Klebsiella pneumoniae Lab - Hematology Results 02/13/18 02/14/18 03:45 05:17 WBC 7.2 5.9 RBC 2.99 L 2.81 L Hgb 8.9 L 8.5 L Hct 27.1 L 25.7 L MCV 90.6 91.5 MCH 29.8 30.1 MCHC 32.9 32.9 RDW 16.6 16.8 Plt Count 271 261 MPV 8.9 9.0 Prelim Diff (Auto) Slide review pending Neut % (Auto) 89.5 H Lymph % (Auto) 5.0 L Morris % (Auto) 5.4 Eos % (Auto) 0.0 Baso % (Auto) 0.1 Neut # (Auto) 5.3 Lymph # (Auto) 0.3 L Morris # (Auto) 0.3 Eos # (Auto) 0.0 Baso # (Auto) 0.0 WBC Differential Manual diff final Seg Neuts % (Manual) 86 H Band Neuts % (Manual) 1 Lymphocytes % (Manual) 8 L Monocytes % (Manual) 4 Metamyelocytes % (Man) 1 Abs Neuts (Manual) 5.2 Differential Comment . Platelet Estimate Normal Platelet Morphology Normal Lab - Chemistry Results 02/12/18 02/13/18 02/13/18 20:35 03:45 12:03 Sodium 144 Potassium 2.8 L* 3.8 D Chloride 110 H D Carbon Dioxide 27.2 Anion Gap 7 BUN 49 H Creatinine 1.34 H Estimated GFR 54 L POC Glucose 117 H Random Glucose 122 H Calcium 8.2 L Phosphorus Magnesium 2.0 Total Bilirubin 0.4 AST 26 ALT 15 Alkaline Phosphatase 67 Total Protein 6.7 Albumin 2.8 L 02/13/18 02/13/18 02/14/18 16:56 23:49 05:13 Sodium Potassium Chloride Carbon Dioxide Anion Gap BUN Creatinine Estimated GFR POC Glucose 133 H 152 H 156 H Random Glucose Calcium Phosphorus Magnesium Total Bilirubin AST ALT Alkaline Phosphatase Total Protein Albumin 02/14/18 05:17 Sodium 146 H Potassium 3.2 L Chloride 112 H Carbon Dioxide 25.8 Anion Gap 8 BUN 48 H Creatinine 1.23 Estimated GFR 59 L POC Glucose Random Glucose 141 H Calcium 8.6 Phosphorus 2.7 Magnesium 2.2 Total Bilirubin 0.4 AST 25 ALT 33 Alkaline Phosphatase 56 Total Protein 6.7 Albumin 3.1 L Imaging: ITS Impressions Abdomen/Bladder Ultrasound 02/05/18 00:00 CONCLUSION: 1. No evidence of hydronephrosis. 2. The echogenicity of the kidneys is equal to that of the liver which can be seen with medical renal disease. 3. Simple cyst in right kidney. 4. Suboptimal visualization of the left kidney. 5. Small amount of free fluid along the spleen. This could represent an adjacent pleural effusion. Chest X-Ray 02/13/18 06:00 CONCLUSION: Increased opacification now noted in the left lung base which could indicate infiltrate and/or effusion. Physical Exam: GENERAL: sedated intubated on vent SKIN: Warm and dry. HEAD: Atraumatic. Normocephalic. EYES: Pupils equal and round. No scleral icterus. No injection or drainage. ENT: No nasal bleeding or discharge. Mucous membranes pink and moist. NECK: Trachea midline. No JVD. CARDIOVASCULAR: Regular rate and rhythm. Mecahnical ballon pump sounds + diastolic blowing murmur on aortic valve point 1-2/6 today RESPIRATORY: No accessory muscle use. b/l rales to auscultation. Breath sounds equal bilaterally. GASTROINTESTINAL: Abdomen soft, non-tender, not distended. Hepatic and splenic margins not palpable. : roberson in place with good amount of urine MUSCULOSKELETAL: Extremities without clubbing, cyanosis, or edema. No obvious deformities. warmt o cool to touch feet NEUROLOGICAL: sedated, eyes closed PSYCHIATRIC:unable to assess Assessment and Plan - Plan Sepsis C.diff ? VAP ; PSAE, KLEb - new infiltrates and difficultynweaninfg Previous MSSA sepsis with presumed PVE of aortic valve prosthesis, on treatment - tx included vanco+ gent w/o rifampin DOubt UTI Resp insufficiency, CHF EF < 20 % sp LA troponin peaked @ 32 cont vanco + gent as a part of PVE Rx will not add rifampin while on amio 2/2 interaction with amiodarone Rifampin can be added if amiodarone is discontinued ccont cefepime and complete 7-14 days of PNA treatment will chk sputum clx will switch to cefazoline + gent + rif (if no amio) once complleted tx cont C.diff tx: po vanco + IV hugo stewart RN
--- NOTE | 2018-02-14 12:42 | P.PNPAL ---
Reason for Visit Reason for visit: a. To assist with evaluation and management of symptoms including: pain, dyspnea, weakness b. To assist medical decision maker(s) with: better understanding of current medical conditions; weighing benefits/burdens of medical treatment options; making medical treatment decisions. Subjective Subjective/Interval History: Pt lying in bed, intubated on vent. RN has held fentanyl, versed for neuro exam. On my exam he is minimally responsive. He did turn head and open eyes to name being called initially but this could not be repeated. RN reported foot drop on her exam. PT has evaluated, pt does nto follow commands, restless without sedation. Does not appear to be painful. Has fentanyl 10ml/hr, versed 9 ml /hr. Per RN HR and BP dropping. On milrinone 8.94ml/hr. Failing CPAP trials. Pt with hypothermia intermittently. Temp last night 96.4, 97.9 currently. CXR showed worsening left lobe infiltrate and/or effusion. Sputum + klebsiella, pseudomonas. 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 -Likely scenarios comparing ongoing aggressive care - he will soon need trach & PEG -Questions answered to the best of my ability - Palliative care contact information provided Proxy decision maker Maria Isabel wants to discuss topic of trach & PEG and likely need for retirement mech ventilation with her sister and her 's sister. Maria Isabel said "I know it doesn't look good but I don't want hope to be taken away." Sister Yvonne seems more inclined toward comfort oriented goals. Maria Isabel requests a meeting with palliative 02/16. Objective Vital Signs: Vital Signs 02/13/18 13:16 02/13/18 15:00 02/13/18 18:29 Temperature 98.0 F Pulse Rate 77 Respiratory Rate 19 18 Blood Pressure 116/52 L Pulse Oximetry 99 92 L 92 L 02/13/18 20:15 02/13/18 20:30 02/13/18 23:00 Temperature 96.4 F L Pulse Rate 60 Respiratory Rate 20 14 Blood Pressure 107/62 Pulse Oximetry 90 L 95 92 L 02/14/18 01:32 02/14/18 03:00 02/14/18 04:12 Temperature 97.5 F L Pulse Rate 55 L Respiratory Rate 14 15 14 Blood Pressure 107/62 Pulse Oximetry 97 93 L 93 L 02/14/18 07:00 02/14/18 07:50 02/14/18 11:32 Temperature 97.9 F Pulse Rate 72 62 Respiratory Rate 21 14 14 Blood Pressure 121/63 Pulse Oximetry 98 100 Intake & Output 02/13/18 02/14/18 02/14/18 18:59 06:59 18:59 Intake Total 871.375 / 871.375 834 / 834 Output Total 940 / 940 2100 / 2100 Balance -68.625 / -68.625 -1266 / -1266 Weight 59 kg Intake: IV 651.375 / 651.375 600 / 600 Heparin/D5W 25,000 U/250 mL 25, 250 / 250 000 unit In 250 ml @ 800 UNITS/ HR 8 mls/hr IV.CONT TITRATE PRN Rx#:[id number] Versed Inj 50 mg In 50 ml @ 2 50 / 50 50 / 50 MG/HR 2 mls/hr IV.CONT TITRATE PRN Rx#:[id number] Primacor Inj 20 MG In NS Inj 80 100 / 100 100 / 100 ML @ Per Protocol IV.CONT .Q0M ADRIEN Rx#:[id number] Flexbumin 25% Inj 100 ML @ 60 100 / 100 100 / 100 mls/hr IV.SIG Q12H ADRIEN Rx#: [id number] Maxipime Inj 2,000 MG In NS Inj 100 / 100 100 ML @ 200 mls/hr IV.SIG Q12H ADRIEN Rx#:[id number] Gentamicin Inj 55 MG In NS Inj 101.375 / 101.375 100 ML @ 203 mls/hr IV.SIG Q12H ADRIEN Rx#:[id number] Flagyl 500 MG Inj 100 ML @ 100 200 / 200 100 / 100 mls/hr IV.SIG Q8H ADRIEN Rx#: [id number] Tube Feeding 120 / 120 114 / 114 Tube Irrigant 100 / 100 Water Bolus Amount 120 / 120 Output: Urine 940 / 940 Stool 200 / 200 Urine Amount (Catheter) 1900 / 1900 Indwelling Temp Sensing 1900 / 1900 Catheter Other: Date of Last Bowel Movement 02/14/18 Physical Exam: CONSTITUTIONAL/GENERAL: frail and cachectic male TUBES/LINES/DRAINS: roberson, ET tube, OGT, Left IJ, right arterial line, rectal bag SKIN: Sallow. No jaundice, rashes, or lesions. No wounds seen anteriorly. Not diaphoretic. HEAD: Atraumatic. Normocephalic. + temporal wasting EYES: pupils constricted. No scleral icterus. No injection or drainage. Fundi not examined. ENT: Hearing grossly normal. Nose without bleeding or purulent drainage. Throat exam inhibited by presence ET tube CARDIOVASCULAR: RRR without murmurs, gallops, or rubs. + click. No JVD. Peripheral radial and pedal pulses symmetric. RESPIRATORY/CHEST: Symmetric, unlabored respirations. Clear to auscultation. Breath sounds equal bilaterally. No wheezes, rales, or rhonchi. diminished bases. GASTROINTESTINAL: Abdomen soft, nondistended. No hepato-splenomegaly, or palpable masses. Bowel sounds present. +rectal bag with liquid blackish green stool GENITOURINARY: Without palpable bladder distension. Roberson catheter in place. MUSCULOSKELETAL: Trace BUE and BLE edema. Extremities without clubbing, cyanosis. No joint tenderness or effusion noted. No calf tenderness. No mottling or clubbing. NEUROLOGICAL: sedation briefly held, minimally responsive Diagnostic Tests Laboratory: Laboratory Results - last 72 hr 02/10/18 02/11/18 02/11/18 16:40 09:00 11:00 WBC RBC Hgb Hct MCV MCH MCHC RDW Plt Count MPV Prelim Diff (Auto) Neut % (Auto) Lymph % (Auto) Motley % (Auto) Eos % (Auto) Baso % (Auto) Neut # (Auto) Lymph # (Auto) Motley # (Auto) Eos # (Auto) Baso # (Auto) WBC Differential Seg Neuts % (Manual) Band Neuts % (Manual) Lymphocytes % (Manual) Monocytes % (Manual) Metamyelocytes % (Man) Abs Neuts (Manual) Differential Comment Platelet Estimate Platelet Morphology PT INR APTT Puncture Site Cancelled Patient Temperature Cancelled O2 Saturation Cancelled ABG pH Cancelled ABG pCO2 Cancelled ABG pO2 Cancelled ABG HCO3 Cancelled ABG O2 Content Cancelled ABG Base Excess Cancelled ABG Methemoglobin Cancelled Frankie Test Cancelled Hemoglobin Cancelled Carboxyhemoglobin Cancelled O2 Delivery Device Cancelled Liter Flow Cancelled Vent Setting Cancelled Inspired O2 Cancelled Critical Value Cancelled Sodium Potassium Chloride Carbon Dioxide Anion Gap BUN Creatinine Estimated GFR POC Glucose Random Glucose Calcium Phosphorus Magnesium Total Bilirubin AST ALT Alkaline Phosphatase Total Protein Albumin Nasal Screen MRSA (PCR) Stl C.difficile Tox PCR Positive H St C. diff Tox Epid 027 Negative Gentamicin Trough Random Vancomycin Digoxin 2.4 H 02/11/18 02/12/18 02/12/18 16:40 03:55 03:55 WBC 11.3 H RBC 3.25 L Hgb 9.8 L Hct 29.5 L MCV 90.8 MCH 30.1 MCHC 33.2 RDW 16.4 Plt Count 345 MPV 9.1 Prelim Diff (Auto) Neut % (Auto) Lymph % (Auto) Motley % (Auto) Eos % (Auto) Baso % (Auto) Neut # (Auto) Lymph # (Auto) Motley # (Auto) Eos # (Auto) Baso # (Auto) WBC Differential Seg Neuts % (Manual) Band Neuts % (Manual) Lymphocytes % (Manual) Monocytes % (Manual) Metamyelocytes % (Man) Abs Neuts (Manual) Differential Comment Platelet Estimate Platelet Morphology PT INR APTT Puncture Site Art line Patient Temperature 98.6 O2 Saturation 94 ABG pH 7.43 H ABG pCO2 45 H ABG pO2 91 ABG HCO3 29 H ABG O2 Content 13.4 ABG Base Excess 4.8 H ABG Methemoglobin 1.4 Frankie Test Hemoglobin 10.0 L Carboxyhemoglobin 0.7 O2 Delivery Device Ventilator Liter Flow Vent Setting Comment Inspired O2 60 Critical Value No Sodium 138 Potassium 2.9 L* Chloride 100 Carbon Dioxide 30.0 Anion Gap 8 BUN 47 H Creatinine 1.65 H Estimated GFR 42 L POC Glucose Random Glucose 134 H Calcium 8.0 L Phosphorus Magnesium 2.2 Total Bilirubin 0.4 AST 39 H ALT 16 Alkaline Phosphatase 87 Total Protein 7.0 Albumin 2.3 L Nasal Screen MRSA (PCR) Stl C.difficile Tox PCR St C. diff Tox Epid 027 Gentamicin Trough Random Vancomycin 20.9 Digoxin 02/12/18 02/12/18 02/12/18 03:55 03:55 14:55 WBC RBC Hgb Hct MCV MCH MCHC RDW Plt Count MPV Prelim Diff (Auto) Neut % (Auto) Lymph % (Auto) Motley % (Auto) Eos % (Auto) Baso % (Auto) Neut # (Auto) Lymph # (Auto) Motley # (Auto) Eos # (Auto) Baso # (Auto) WBC Differential Seg Neuts % (Manual) Band Neuts % (Manual) Lymphocytes % (Manual) Monocytes % (Manual) Metamyelocytes % (Man) Abs Neuts (Manual) Differential Comment Platelet Estimate Platelet Morphology PT 13.7 H INR 1.4 APTT 45.2 H Puncture Site Patient Temperature O2 Saturation ABG pH ABG pCO2 ABG pO2 ABG HCO3 ABG O2 Content ABG Base Excess ABG Methemoglobin Frankie Test Hemoglobin Carboxyhemoglobin O2 Delivery Device Liter Flow Vent Setting Inspired O2 Critical Value Sodium Potassium Chloride Carbon Dioxide Anion Gap BUN Creatinine Estimated GFR POC Glucose Random Glucose Calcium Phosphorus Magnesium Total Bilirubin AST ALT Alkaline Phosphatase Total Protein Albumin Nasal Screen MRSA (PCR) Stl C.difficile Tox PCR St C. diff Tox Epid 027 Gentamicin Trough 1.4 Random Vancomycin Digoxin 1.9 02/12/18 02/13/18 02/13/18 20:35 03:45 03:45 WBC 7.2 RBC 2.99 L Hgb 8.9 L Hct 27.1 L MCV 90.6 MCH 29.8 MCHC 32.9 RDW 16.6 Plt Count 271 MPV 8.9 Prelim Diff (Auto) Neut % (Auto) Lymph % (Auto) Motley % (Auto) Eos % (Auto) Baso % (Auto) Neut # (Auto) Lymph # (Auto) Motley # (Auto) Eos # (Auto) Baso # (Auto) WBC Differential Seg Neuts % (Manual) Band Neuts % (Manual) Lymphocytes % (Manual) Monocytes % (Manual) Metamyelocytes % (Man) Abs Neuts (Manual) Differential Comment Platelet Estimate Platelet Morphology PT 13.4 H INR 1.3 APTT 67.9 H D Puncture Site Patient Temperature O2 Saturation ABG pH ABG pCO2 ABG pO2 ABG HCO3 ABG O2 Content ABG Base Excess ABG Methemoglobin Frankie Test Hemoglobin Carboxyhemoglobin O2 Delivery Device Liter Flow Vent Setting Inspired O2 Critical Value Sodium Potassium 2.8 L* Chloride Carbon Dioxide Anion Gap BUN Creatinine Estimated GFR POC Glucose Random Glucose Calcium Phosphorus Magnesium Total Bilirubin AST ALT Alkaline Phosphatase Total Protein Albumin Nasal Screen MRSA (PCR) Stl C.difficile Tox PCR St C. diff Tox Epid 027 Gentamicin Trough Random Vancomycin Digoxin 02/13/18 02/13/18 02/13/18 03:45 12:03 16:56 WBC RBC Hgb Hct MCV MCH MCHC RDW Plt Count MPV Prelim Diff (Auto) Neut % (Auto) Lymph % (Auto) Motley % (Auto) Eos % (Auto) Baso % (Auto) Neut # (Auto) Lymph # (Auto) Motley # (Auto) Eos # (Auto) Baso # (Auto) WBC Differential Seg Neuts % (Manual) Band Neuts % (Manual) Lymphocytes % (Manual) Monocytes % (Manual) Metamyelocytes % (Man) Abs Neuts (Manual) Differential Comment Platelet Estimate Platelet Morphology PT INR APTT Puncture Site Patient Temperature O2 Saturation ABG pH ABG pCO2 ABG pO2 ABG HCO3 ABG O2 Content ABG Base Excess ABG Methemoglobin Frankie Test Hemoglobin Carboxyhemoglobin O2 Delivery Device Liter Flow Vent Setting Inspired O2 Critical Value Sodium 144 Potassium 3.8 D Chloride 110 H D Carbon Dioxide 27.2 Anion Gap 7 BUN 49 H Creatinine 1.34 H Estimated GFR 54 L POC Glucose 117 H 133 H Random Glucose 122 H Calcium 8.2 L Phosphorus Magnesium 2.0 Total Bilirubin 0.4 AST 26 ALT 15 Alkaline Phosphatase 67 Total Protein 6.7 Albumin 2.8 L Nasal Screen MRSA (PCR) Stl C.difficile Tox PCR St C. diff Tox Epid 027 Gentamicin Trough Random Vancomycin Digoxin 02/13/18 02/13/18 02/14/18 21:00 23:49 05:13 WBC RBC Hgb Hct MCV MCH MCHC RDW Plt Count MPV Prelim Diff (Auto) Neut % (Auto) Lymph % (Auto) Motley % (Auto) Eos % (Auto) Baso % (Auto) Neut # (Auto) Lymph # (Auto) Motley # (Auto) Eos # (Auto) Baso # (Auto) WBC Differential Seg Neuts % (Manual) Band Neuts % (Manual) Lymphocytes % (Manual) Monocytes % (Manual) Metamyelocytes % (Man) Abs Neuts (Manual) Differential Comment Platelet Estimate Platelet Morphology PT INR APTT Puncture Site Patient Temperature O2 Saturation ABG pH ABG pCO2 ABG pO2 ABG HCO3 ABG O2 Content ABG Base Excess ABG Methemoglobin Frankie Test Hemoglobin Carboxyhemoglobin O2 Delivery Device Liter Flow Vent Setting Inspired O2 Critical Value Sodium Potassium Chloride Carbon Dioxide Anion Gap BUN Creatinine Estimated GFR POC Glucose 152 H 156 H Random Glucose Calcium Phosphorus Magnesium Total Bilirubin AST ALT Alkaline Phosphatase Total Protein Albumin Nasal Screen MRSA (PCR) Not detected Stl C.difficile Tox PCR St C. diff Tox Epid 027 Gentamicin Trough Random Vancomycin Digoxin 02/14/18 02/14/18 02/14/18 05:17 05:17 05:17 WBC 5.9 RBC 2.81 L Hgb 8.5 L Hct 25.7 L MCV 91.5 MCH 30.1 MCHC 32.9 RDW 16.8 Plt Count 261 MPV 9.0 Prelim Diff (Auto) Slide review pending Neut % (Auto) 89.5 H Lymph % (Auto) 5.0 L Motley % (Auto) 5.4 Eos % (Auto) 0.0 Baso % (Auto) 0.1 Neut # (Auto) 5.3 Lymph # (Auto) 0.3 L Motley # (Auto) 0.3 Eos # (Auto) 0.0 Baso # (Auto) 0.0 WBC Differential Manual diff final Seg Neuts % (Manual) 86 H Band Neuts % (Manual) 1 Lymphocytes % (Manual) 8 L Monocytes % (Manual) 4 Metamyelocytes % (Man) 1 Abs Neuts (Manual) 5.2 Differential Comment . Platelet Estimate Normal Platelet Morphology Normal PT INR APTT 70.3 H Puncture Site Patient Temperature O2 Saturation ABG pH ABG pCO2 ABG pO2 ABG HCO3 ABG O2 Content ABG Base Excess ABG Methemoglobin Frankie Test Hemoglobin Carboxyhemoglobin O2 Delivery Device Liter Flow Vent Setting Inspired O2 Critical Value Sodium 146 H Potassium 3.2 L Chloride 112 H Carbon Dioxide 25.8 Anion Gap 8 BUN 48 H Creatinine 1.23 Estimated GFR 59 L POC Glucose Random Glucose 141 H Calcium 8.6 Phosphorus 2.7 Magnesium 2.2 Total Bilirubin 0.4 AST 25 ALT 33 Alkaline Phosphatase 56 Total Protein 6.7 Albumin 3.1 L Nasal Screen MRSA (PCR) Stl C.difficile Tox PCR St C. diff Tox Epid 027 Gentamicin Trough Random Vancomycin 15.3 Digoxin 02/14/18 09:20 WBC RBC Hgb Hct MCV MCH MCHC RDW Plt Count MPV Prelim Diff (Auto) Neut % (Auto) Lymph % (Auto) Motley % (Auto) Eos % (Auto) Baso % (Auto) Neut # (Auto) Lymph # (Auto) Motley # (Auto) Eos # (Auto) Baso # (Auto) WBC Differential Seg Neuts % (Manual) Band Neuts % (Manual) Lymphocytes % (Manual) Monocytes % (Manual) Metamyelocytes % (Man) Abs Neuts (Manual) Differential Comment Platelet Estimate Platelet Morphology PT INR APTT Puncture Site Art line Patient Temperature 98.6 O2 Saturation 93 ABG pH 7.44 H ABG pCO2 36 L ABG pO2 75 ABG HCO3 24 ABG O2 Content 12.8 ABG Base Excess 0.2 ABG Methemoglobin 1.2 Frankie Test Hemoglobin 9.7 L Carboxyhemoglobin 0.9 O2 Delivery Device Ventilator Liter Flow Vent Setting Prvc 10/400/1.0/+5 Inspired O2 45 Critical Value No Sodium Potassium Chloride Carbon Dioxide Anion Gap BUN Creatinine Estimated GFR POC Glucose Random Glucose Calcium Phosphorus Magnesium Total Bilirubin AST ALT Alkaline Phosphatase Total Protein Albumin Nasal Screen MRSA (PCR) Stl C.difficile Tox PCR St C. diff Tox Epid 027 Gentamicin Trough Random Vancomycin Digoxin Result Diagrams: 02/14/18 05:17 02/14/18 05:17 Microbiology: Microbiology 02/11/18 03:54 Aerobic Blood Culture - Preliminary Blood - Peripheral No growth in 3 days Anaerobic Blood Culture - Preliminary No growth in 3 days 02/11/18 03:49 Aerobic Blood Culture - Preliminary Blood - Peripheral No growth in 3 days Anaerobic Blood Culture - Preliminary No growth in 3 days 02/11/18 03:40 Gram Stain - Final Sputum - Endotracheal Sputum Culture - Preliminary Pseudomonas aeruginosa Klebsiella pneumoniae Procedures: 02/05 left IJ placement 02/05 retrograde left heart cath, stent placement, IABP placement 02/05 intubated Assessment and Plan - Disease Oriented Problem List (1) Cardiogenic shock (2) Ventricular fibrillation (3) Hypokalemia (4) CAD (coronary artery disease) Pertinent Non-Medical Issues: Psychosocial: On disability. 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 Spiritual: Hindu, non-worship. [employer] has visited, they also have [employer] imaging services director visiting. Legal: Pt not capacitated to make medical decisions. Unclear if he will regain capacity. Per [place] statutes decision making would fall to as proxy. Ethical issues impacting care: none identified Important Contacts: Maria Isabel Tolentino [phone] sister Yvonne Valdivia [phone] Prognosis: 62 yo male s/p aortic valve replacement 2012 who suffered significant NSTEMI, EF <20% on presentation, troponins up to 32. Echo also showed global hypokinesis. Not clear how much of heart failure was present prior to NSTEMI. s /p heart cath, LAD stenting complicated by vasospasm, placement and subsequent removal of IABP. 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 He has had several runs of v fib and v tach requiring chest compressions, shocks. He has underlying COPD and was having activity intolerance prior to this event. His prognosis for recovery is poor; chances of returning to baseline quite poor. He is at serious risk for continued complications including but not limited to recurrent arrhythmias, multi-organ injury; and at risk for further decline. Code Status: Full Code Plan: - LEGAL DECISON MAKER - Pt not capacitated to make medical decisions. Per [place] statutes decision making would fall to as proxy. Family working together to make decisions - , wifes RN sister, and pt's sister. 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 Maria Isabel said "I know it doesn't look good but I don't want hope to be taken away." Sister Yvonne seems more inclined toward comfort oriented goals. Maria Isabel requests a meeting with palliative 02/16. - SYMPTOMS - * dyspnea - multifactorial - CXR 02/13 worsening left lobe effusion and/or infiltrate. hx COPD, EF < 20%, class 4 heart failure. Failing CPAP trials. FiO2 45%. requiring more versed. Has PRN duonebs, scheduled duonebs, bumex 1mg BID, versed 9ml/hr. * pain - multifactorial, lines, ET tube, catheters, hx chronic back pain / "chronic fractures." sees pain mgmt, been on hydrocodone 10/, reportedly same dosage and frequency for 6 years. Also on duloxetine at home, now held. currently on fentanyl gtt 10ml/hr. * debility/weakness - multifactorial. poor neuro exams on sedation vacation, partly d/t sepsis. PT evaluated, noted w/o sedation pt was agitated, not following commands, did passive ROM. RN reports foot drop. Minimally responsive on my exam, cachectic. TF infusing 20ml/hr. - eforsce verified - d/w RN, d/w CCM - Meeting with Maria Isabel 02/16 - Palliative care will continue to follow during hospital course as condition evolves, to assist patient/decision-maker with understanding of medical conditions, weighing benefits/burdens of treatment options, for clarification of goals of treatment. Additionally will assist with any symptoms of palliative concern
[2018-02-14] MEDS: Vancomycin Inj 1,500 MG in Sodium Chlor 0.9% Inj 500 ML IV.SIG SCH (13:35)
[2018-02-14] MEDS ORDERED: Pharmacy Ordered Lab Info OTHER ONE ×2 (14:45→15:30)
[2018-02-14] MEDS: fentaNYL 10 mcg/mL Premix Drip 2,500 MCG/250 ML BAG IV.SIG PRN (17:33)
[2018-02-15] MEDS: Midazolam 50 MG/50 ML Inj 50 MG/50 ML BAG IV.CONT PRN ×3 (00:44→16:17)
[2018-02-15] MEDS: SODIUM CHLOR 0.9% IV.SIG SCH ×2 (03:09→14:59)
[2018-02-15] MEDS: GENTAMICIN IV.SIG SCH ×2 (03:09→14:59)
[2018-02-15] MEDS: Chlorhexidine Gluconate 2% 1 Pack (2 Cloths) TOPICAL SCH (03:10)
[2018-02-15] MEDS: Oral Hygiene Kit OROPHARYNG SCH ×4 (03:10→23:55)
[2018-02-15] MEDS: Hypromellose 0.3% Opth Gel 10 GM Bottle EACH EYE SCH ×3 (03:11→20:22)
[2018-02-15 04:59] LABS: Hematocrit 26.2 % (39.0-51.0); Hemoglobin 8.7 gm/dL (13.0-17.0); Lymph # (Auto) 0.3 th/mm3 (1.0-4.8); Lymph % (Auto) 4.3 % (9.0-44.0); Mean Corpuscular HGB Conc 33.3 % (32.0-36.0); Mean Corpuscular Hemoglobin 30.7 pg (27.0-34.0); Mean Corpuscular Volume 92.1 fL (80.0-100.0); Mean Platelet Volume 8.9 fL (7.0-11.0); Mono # (Auto) 0.5 th/mm3 (0.0-0.9); Neut # (Auto) 5.7 th/mm3 (1.8-7.7); Neut % (Auto) 88.7 % (16.0-70.0); Platelet Count 267 th/mm3 (150-450); Red Blood Count 2.85 mil/mm3 (4.50-5.90); Red Cell Distribution Width 17.1 % (11.6-17.2); White Blood Count 6.5 th/mm3 (4.0-11.0)
[2018-02-15 05:24] LABS: Alanine Aminotransferase 16 U/L (12-78); Albumin 3.2 g/dL (3.4-5.0); Anion Gap 7 meq/L (5-15); Aspartate Aminotransferase 23 U/L (15-37); Blood Urea Nitrogen 47 mg/dL (7-18); Calcium 8.5 mg/dL (8.5-10.1); Carbon Dioxide 28.3 meq/L (21.0-32.0); Chloride 114 meq/L (98-107); Glomerular Filtration Rate 57 mL/min (>89); Glucose,Random 175 mg/dL (74-106); Phosphorus 2.5 mg/dL (2.5-4.9); Potassium 3.3 meq/L (3.5-5.1); Sodium 149 meq/L (136-145)
[2018-02-15 05:40] LABS: Alkaline Phosphatase 56 U/L (45-117); Digoxin 0.9 ng/mL (0.8-2.0); Total Protein 6.6 g/dL (6.4-8.2)
[2018-02-15 05:51] LABS: Lymphocytes 10 % (9-44); Metamyelocytes 1 % (0-1); Monocytes 7 % (0-8); Myelocytes 1 % (0-0); Platelet Estimate Normal (Normal); Platelet Morphology Normal (Normal); Promyelocyte 1 % (0-0)
[2018-02-15 05:54] LABS: Ovalocytes 1+
--- NOTE | 2018-02-15 06:42 | XR ---
EXAM DATE: 02/15/2018 6:30 AM EDT AGE/SEX: 62 years / Male INDICATIONS: Shortness of breath. CLINICAL DATA: This is the patient's subsequent encounter. Patient reports that signs and symptoms h ave been present for 3 days and indicates a pain score of Nonresponsive. MEDICAL/SURGICAL HISTORY: Chronic obstructive pulmonary disease. CABG. COMPARISON: [facility], CHEST 1V SINGLE AP, 02/13/2018. . FINDINGS: A single portable AP semierect view of the chest was obtained and demonstrates the endotracheal tube in place with tip 2 cm above the renny. The nasogastric tube remains in place. Mild hazy perihilar a nd bibasilar opacities are again noted. The patient is status post median sternotomy and is not offic ial heart valve in place. The left hemidiaphragm is obscured. Left costophrenic angle is blunted. The re are multiple overlying electrocardiogram leads. CONCLUSION: Hazy opacity is now noted in the perihilar regions and both lung bases as well as a smal l left effusion. The findings are most characteristic of congestive heart failure. Electronically signed by: Charles Chun MD 02/15/2018 6:41 AM EDT
[2018-02-15] MEDS: Pregabalin 75 MG Capsule PO SCH ×2 (08:13→20:20)
[2018-02-15] MEDS: Potassium Chloride 10 MEQ ER Capsule G-TUBE SCH ×2 (08:13→21:27)
[2018-02-15] MEDS: Senna/Docusate Sodium 8.6/50 MG Tablet PO SCH ×2 (08:14→20:22)
[2018-02-15] MEDS: Ascorbic Acid 500 MG Tablet NG/OG SCH (08:14)
[2018-02-15] MEDS: Potassium Chloride 25 MEQ Effervescent Tablet PO PRN (08:14)
[2018-02-15] MEDS: Ferrrous Sulfate 300 MG/5 ML UDC PO SCH (08:14)
[2018-02-15] MEDS: Chlorhexidine 0.12% Oral Kit 15 ML UDC OROPHARYNG SCH ×2 (08:15→20:21)
[2018-02-15] MEDS: Beneprotein Powder Packet G-TUBE SCH ×3 (08:15→17:19)
[2018-02-15] MEDS: MethylPREDNISolone Sod Succinate Inj 125 MG/2 ML Vial IV.PUSH SCH (08:15)
[2018-02-15] MEDS: Amiodarone 200 MG Tablet G-TUBE SCH ×2 (08:15→20:20)
[2018-02-15] MEDS: Spironolactone 50 MG Tablet PO SCH ×2 (08:21→17:19)
--- NOTE | 2018-02-15 08:50 | P.PNCC ---
Subjective Subjective Remarks/Hospital Course: 62-year-old male with past medical history of [place] mechanical aortic valve (09/21/12 Dr. Gonzalez), on chronic anticoagulation with warfarin, atrial fibrillation postop from AVR , COPD on 2.5 L home O2, stroke in 2015 resulting in left-sided sensory deficits and neuropathy, osteoporosis with chronic low back pain. He was recently admitted to [facility] from 01/23 through 01/31/18 for MSSA bacteremia. It is believed that the original source of infection was a wound on his right index finger when electric drill slipped and created a puncture wound. He was discharged with right upper extremity PICC line receiving cefazolin 2 g IV every 8 hours and gentamicin 210 mg IV daily. He states that home health administered antibiotics at 17:00 and shortly thereafter he began having chills and rigors and sought medical attention at [facility]. He had no rash. Upon arrival, he was hypotensive in the low 80s. He was given 2 L S bolus but remained hypotensive so was started on Levophed. He then developed heart rate in the 140s, reportedly atrial flutter so he was started on Amiodarone drip in [place] and converted to sinus rhythm. He was transfused 2 units PRBC due to Hgb 9.3. His stool was nonbloody nonmelena but was Hemoccult positive. He was given zosyn and vancomycin. Critical care medicine was then contacted and accepted patient for transfer to [facility]. He denies tenderness/redness/drainage at PICC site. Aside from mechanical aortic valve, he has no other hardware or indwelling devices. He denies headache, cough, dysuria. He has had a few loose stools at home, but stools have sometimes been formed. He denies chest pain, does report some SOB. EKG at [place] had marked inferolateral ischemic changes. Obtained EKG upon arrival to [facility] which is improved. SUBJ 02/05: Patient remains critical ill appearing, complaints of chest tightness but denies pain. Remains on 8 mcg/min of Levophed to maintain map about 65. However increasing shortness of breath. Chest x-ray shows increasing pulmonary edema. Troponin was 27.5 currently on IV heparin therapeutic. Cardiology consult is pending at this time. I will stop on maintenance fluids give 40 mg IV Lasix and IV albumin 25 g 1. Patient is very critical patient and updated at the bedside 02/06: to electronic lab technician last night for [facility] with LAD stent complicated by vasospasm of the LAD. IABP placed. patient emergently intubated for acute hypoxic respiratory failure secondary to cardiogenic shock and pulmonary edema. started on milrinone at 0.375 mcg/kg/min and levophed. bumex drip started. remains critically ill. 02/07: Remains critically ill remains on Levophed and milrinone. Currently diuresing well with Bumex drip. IABP in place management per cardiology-good waveform and augmentation. Chest x-ray shows adequate positioning of IABP, diffuse bilateral pulmonary edema 02/08: Remains critical but showing some signs of improvement. Diuresing very well on Bumex infusion. Remains on Levophed and milrinone. IABP one-to-one with good augmentation management per cardiology. Chest x-ray shows improving edema but with persistent bilateral effusions. Will initiate weaning trials if tolerated 02/09: Still remains on pressors, unable to wean Levophed below 2 mcg/min. Milrinone currently on 0.375 mcg/kg/min. IABP removed yesterday. On sedation hold patient wakes up but remains lethargic. Weakly squeezes hand. Urine output excellent on Bumex, 4 L output in 24 hours. Will attempt CPAP today 02/10: Multiple episodes of V. fib V. tach arrest yesterday morning. Successfully resuscitated. Yesterday night had two-minute V. fib arrest return of spontaneous circulation in sinus rhythm after DC cardioversion 1. Currently remains on milrinone and low-dose Levophed. I will try to wean off Levophed introduce low-dose beta-rasheed due to recurrent arrhythmia. Keep potassium more than 4 magnesium more than 2 02/11: Patient still critical and cardiogenic shock requiring Levophed and milrinone. Urine output improved with adding Diamox. Approximately 2 L urine output in 24 hours, creatinine remained stable. Oxygenation slightly improved FiO2 reduced to 70% now. Overall prognosis remains poor family wants to continue aggressive care 02/12: Remains critical but slight improvement in oxygenation. But continues to require Levophed and milrinone the low-dose. Urine output remains adequate. Chest x-ray shows interval improvement. Creatinine remains stable to slightly improved. Add IV albumin to improve blood pressure and to promote diuresis. 02/13 Patient remains intubated and sedated with Versed and fentanyl. Afebrile, off Levophed remains on Milrinone and Heparin drip. SUBJECTIVE: 02/14: Hypothermic overnight. Remains on milrinone and heparin drips. Tolerating tube feeds at 20 cc now. Positive BM. No changes neurologically 02/15 Patient remains sedated with Versed and Fentanyl drips, on Milrinone 0.5. Objective Vital Signs / I&O: Vital Signs 02/14/18 10:02 02/14/18 11:00 02/14/18 11:32 Temperature Pulse Rate 73 63 62 Respiratory Rate 18 23 14 Blood Pressure 114/63 Pulse Oximetry 98 96 100 02/14/18 12:00 02/14/18 13:00 02/14/18 14:00 Temperature Pulse Rate 61 75 Respiratory Rate 16 27 H Blood Pressure 111/62 137/78 111/64 Pulse Oximetry 97 93 L 95 02/14/18 14:11 02/14/18 14:12 02/14/18 14:13 Temperature Pulse Rate 60 59 L 60 Respiratory Rate 61 H 54 H 59 H Blood Pressure 111/60 109/61 110/58 L Pulse Oximetry 96 97 02/14/18 14:14 02/14/18 14:15 02/14/18 14:30 Temperature Pulse Rate 58 L 58 L 56 L Respiratory Rate 53 H 53 H 54 H Blood Pressure 104/58 L 108/57 L 104/57 L Pulse Oximetry 97 97 100 02/14/18 15:00 02/14/18 15:30 02/14/18 16:00 Temperature Pulse Rate 56 L 56 L 54 L Respiratory Rate 48 H 56 H 47 H Blood Pressure 103/60 108/62 120/66 Pulse Oximetry 96 94 L 98 02/14/18 16:01 02/14/18 16:30 02/14/18 19:00 Temperature 96.6 F L Pulse Rate 55 L 56 L 53 L Respiratory Rate 17 51 H 12 Blood Pressure 125/68 116/68 Pulse Oximetry 100 97 95 02/14/18 19:57 02/14/18 23:00 02/15/18 00:04 Temperature 97.2 F L Pulse Rate 54 L 58 L Respiratory Rate 14 14 16 Blood Pressure 116/65 Pulse Oximetry 96 99 96 02/15/18 03:00 02/15/18 04:02 02/15/18 08:03 Temperature 96.4 F L Pulse Rate 63 66 Respiratory Rate 13 13 16 Blood Pressure 120/68 Pulse Oximetry 100 100 94 L 02/15/18 08:06 Temperature Pulse Rate 59 L Respiratory Rate 16 Blood Pressure Pulse Oximetry Intake & Output 02/14/18 02/15/18 02/15/18 18:59 06:59 18:59 Intake Total 3881.375 / 3881.375 425 / 425 Output Total 3140 / 3140 2200 / 2200 Balance 741.375 / 741.375 -1775 / -1775 Intake: IV 451.375 / 451.375 300 / 300 Versed Inj 50 mg In 50 ml @ 2 50 / 50 100 / 100 MG/HR 2 mls/hr IV.CONT TITRATE PRN Rx#:[id number] Maxipime Inj 2,000 MG In NS Inj 100 / 100 100 ML @ 200 mls/hr IV.SIG Q12H ADRIEN Rx#:[id number] Gentamicin Inj 55 MG In NS Inj 101.375 / 101.375 100 ML @ 203 mls/hr IV.SIG Q12H ADRIEN Rx#:[id number] KCl 40 mEq Premix Inj 40 meq In 100 / 100 100 ml @ 25 mls/hr IV.SIG Q2H PRN Rx#:[id number] Flagyl 500 MG Inj 100 ML @ 100 200 / 200 100 / 100 mls/hr IV.SIG Q8H ADRIEN Rx#: [id number] Oral 220 / 220 Oral Supplement 170 / 170 Tube Feeding 347 / 347 125 / 125 Tube Irrigant 100 / 100 Water Bolus Amount 240 / 240 Other 2353 / 2353 Output: Urine 940 / 940 Stool 200 / 200 50 / 50 Urine Amount (Catheter) 1900 / 1900 2150 / 2150 Indwelling Temp Sensing 1900 / 1900 2150 / 2150 Catheter Gastric Drainage 100 / 100 Oral 100 / 100 Other: # Voids 3 Date of Last Bowel Movement 02/14/18 02/15/18 # Bowel Movements 1 Result Diagrams: 02/15/18 04:30 02/15/18 04:30 Other Results: Laboratory Results - last 12 hr 02/14/18 02/15/18 02/15/18 23:35 01:00 04:30 WBC RBC Hgb Hct MCV MCH MCHC RDW Plt Count MPV Prelim Diff (Auto) Neut % (Auto) Lymph % (Auto) [place] % (Auto) Eos % (Auto) Baso % (Auto) Neut # (Auto) Lymph # (Auto) [place] # (Auto) Eos # (Auto) Baso # (Auto) WBC Differential Seg Neuts % (Manual) Lymphocytes % (Manual) Monocytes % (Manual) Metamyelocytes % (Man) Myelocytes % (Man) Promyelocytes % (Man) Abs Neuts (Manual) Differential Comment Platelet Estimate Platelet Morphology Ovalocytes Keratocytes Sodium 149 H Potassium 3.2 L 3.3 L Chloride 114 H Carbon Dioxide 28.3 Anion Gap 7 BUN 47 H Creatinine 1.28 Estimated GFR 57 L POC Glucose 200 H Random Glucose 175 H Calcium 8.5 Phosphorus 2.5 Magnesium 2.0 Total Bilirubin 0.5 AST 23 ALT 16 Alkaline Phosphatase 56 Total Protein 6.6 Albumin 3.2 L Digoxin 0.9 02/15/18 04:30 WBC 6.5 RBC 2.85 L Hgb 8.7 L Hct 26.2 L MCV 92.1 MCH 30.7 MCHC 33.3 RDW 17.1 Plt Count 267 MPV 8.9 Prelim Diff (Auto) Slide review pending Neut % (Auto) 88.7 H Lymph % (Auto) 4.3 L [place] % (Auto) 7.0 Eos % (Auto) 0.0 Baso % (Auto) 0.0 Neut # (Auto) 5.7 Lymph # (Auto) 0.3 L [place] # (Auto) 0.5 Eos # (Auto) 0.0 Baso # (Auto) 0.0 WBC Differential Manual diff final Seg Neuts % (Manual) 80 H Lymphocytes % (Manual) 10 Monocytes % (Manual) 7 Metamyelocytes % (Man) 1 Myelocytes % (Man) 1 H Promyelocytes % (Man) 1 H Abs Neuts (Manual) 5.4 Differential Comment . Platelet Estimate Normal Platelet Morphology Normal Ovalocytes 1+ H Keratocytes Occ H Sodium Potassium Chloride Carbon Dioxide Anion Gap BUN Creatinine Estimated GFR POC Glucose Random Glucose Calcium Phosphorus Magnesium Total Bilirubin AST ALT Alkaline Phosphatase Total Protein Albumin Digoxin Imaging: Abdomen/Bladder Ultrasound 02/05/18 00:00 CONCLUSION: 1. No evidence of hydronephrosis. 2. The echogenicity of the kidneys is equal to that of the liver which can be seen with medical renal disease. 3. Simple cyst in right kidney. 4. Suboptimal visualization of the left kidney. 5. Small amount of free fluid along the spleen. This could represent an adjacent pleural effusion. Chest X-Ray 02/15/18 06:00 CONCLUSION: Hazy opacity is now noted in the perihilar regions and both lung bases as well as a small left effusion. The findings are most characteristic of congestive heart failure. Objective Remarks: GENERAL: 62-year-old male currently orotracheally intubated SKIN: cool and poorly perfused. No rash or skin breakdown HEAD: Atraumatic. Normocephalic. EYES: Pupils equal and round, 2 mm and reactive. No scleral icterus. No injection or drainage. ENT: No nasal bleeding or discharge. Orotracheally intubated NECK: Trachea midline. + JVD. left IJ TLC clean dry and dressing intact. CARDIOVASCULAR: RRR. S1, S2. No S4. No murmurs rubs or gallops. RESPIRATORY: Bilateral coarse rhonchi and and rales, at bases improved GASTROINTESTINAL: Abdomen soft, non-tender, nondistended. no guarding. VASC: Right radial art line in place with distal perfusion intact. right femoral IABP removed. no evidence of hematoma. distal pulses dopplerable. MUSCULOSKELETAL: Extremities with trace bilateral lower extremity edema NEUROLOGICAL: RASS -2. moves all extremities. no focal deficits. Heavy sedation limits neuro exam Assessment and Plan - Assessment and Plan Plan: NEURO/PSYCH: History of stroke in 2015 Neuropathy left upper and lower extremity Chronic low back pain On Fentanyl drip at 150 micrograms per hour and midazolam drip at 9 mg an hour for sedation/analgesia while intubated Goal of RA SS -2 Daily sedation vacation Monitor neuro status Check CT brain and EEG Continue pregabalin 150 mg p.o. twice daily. Hold duloxetine 90 mg p.o. daily RESP: Acute hypoxic respiratory failure COPD on 2.5 L home O2 Prior tobacco abuse Continue with vent support keep sats >92% On PRVC RR 10, TV 400, IT: 1.0, PEEP:5 FIO2: 45%. Albuterol/ipratropium aerosols every 4 hours with albuterol aerosols every 2 hours as needed for dyspnea SBT daily as garrett vent bundle, hob elevated. Decrease methylprednisolone succinate 40mg IV Q12 CV: V. tach/V. fib arrest NSTEMI Cardiogenic shock Acute systolic heart failure Atrial fibrillation with RVR [place] mechanical aortic valve (09/21/12 Dr. Gonzalez) s/p Tricuspid annuloplasty Continue milrinone infusion 0.5 mcg/kg/min Monitor HR and BP keep MAP>65mmHg s/p cath And PCI -proximal LAD and large diagonal 90% stenosis, 2 BMS stent 02/05, mid LAD vasospasm post PCI Continue aspirin 81 mg daily, clopidogrel 75 mg daily, amiodarone 400mg TID, carvedilol 3.125mg BID, Bumetanide 1mg IV BID and Spironolactone 50 mg twice daily heparin drip currently at 800 units an hour. PTT therapeutic. Continue atorvastatin 40 mg nightly. Off IABP 02/08/18 [place] 01/23/18no vegetation. Normal aortic mechanical valve with trivial aortic insufficiency. Tricuspid annuloplasty. Mild to moderate LV generalized hypokinesis EKG from emergency department demonstrated atrial flutter with rate in the 130s with ST depression in II/III/ F, V4 through V6 [employer] is Romana Bartlett GI: Trickle feeds with Jevity 1.5 currently at 20 cc an hour. Advance to 50 cc an hour per nutrition recommendation. Lansoprazole for stress ulcer prophylactic Had normal EGD on 10/21/17 FEN/RENAL: BPH Acute kidney injury-improving Cano due to aggressive diuresis. 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 difficile colitis PICC removed Continue IV vancomycin, IV gentamicin and IV cefepime C.diff tx: po vanco + IV flagyl 02/11/18 Infectious disease following 02/11 Sputum cx: Pseudomonas, GNR BC 02/11, 02/06: NGTD HEME: Chronic anemia Iron deficiency Continue ferrous sulfate 300 milligrams liquid daily. Received 2 units packed red cells in [place] ER due to anemia and shock. Monitor CBC ENDO: SSI to maintain euglycemia PROPH: Heparin drip. Protonix for stress ulcer prophylaxis ACCESS: Right radial art line placed in the emergency department 02/04. Left IJ central line placed 02/05/18. Removed right upper extremity PICC. Palliative care is following CCT 30 minutes exclusive of separately billable procedures.`
[2018-02-15] MEDS: fentaNYL 10 mcg/mL Premix Drip 2,500 MCG/250 ML BAG IV.SIG PRN (10:54)
[2018-02-15] MEDS: Insulin NovoLOG Aspart Correctional Sugar Inj SQ SCH ×4 (12:43→23:55)
[2018-02-15] MEDS: Vancomycin Inj 1,500 MG in Sodium Chlor 0.9% Inj 500 ML IV.SIG SCH (12:45)
[2018-02-15] MEDS: Milrinone Inj 20 MG in Sodium Chlor 0.9% Inj 80 ML IV.CONT SCH (12:45)
--- NOTE | 2018-02-15 13:56 | CT ---
EXAM DATE: 02/15/2018 1:52 PM EDT AGE/SEX: 62 years / Male INDICATIONS: Altered mental status CLINICAL DATA: This is the patient's initial encounter. Patient reports that signs and symptoms have been present for 1 day and indicates a pain score of Nonresponsive. MEDICAL/SURGICAL HISTORY: Cerebrovascular disease. Chronic obstructive pulmonary disease. . aortic valve RADIATION DOSE: 67.23 CTDI (mGy) COMPARISON: [facility], MR HEAD W & W/O CONTRAST, 01/23/2018. . TECHNIQUE: CT of the head without contrast. Using automated exposure control and adjustment of the mA and/or kV according to patient size, radiation dose was kept as low as reasonably achievable to ob tain optimal diagnostic quality images. DICOM format image data is available electronically for revi ew and comparison. FINDINGS: Cerebrum: The ventricles are normal for age. No evidence of midline shift, mass lesion, hemorrhage or acute infarction. No extraaxial fluid collections are seen. Posterior Fossa: The cerebellum and brainstem are intact. The 4th ventricle is midline. The cerebe llopontine angle is unremarkable. Extracranial: The visualized portion of the orbits is intact. Skull: The calvaria is intact. No evidence of skull fracture. CONCLUSION: 1. Negative CT Head non contrast. . Electronically signed by: Timo Caballero MD 02/15/2018 1:55 PM EDT
--- NOTE | 2018-02-15 14:22 | P.PNADD ---
Addendum to Inpatient Note Additional information: pt seen today around 1 pm full note to follow
[2018-02-15] MEDS ORDERED: Pharmacy Ordered Lab Info OTHER ONE ×2 (14:45→15:30)
[2018-02-15] MEDS: Heparin Drip 25,000 UNIT/250 ML BAG IV.CONT PRN (16:20)
--- NOTE | 2018-02-15 18:56 | MG ---
cc: Amada Brooks MD, Dalia MD EEG NUMBER [id number] Patel[address] With photic done, 4 mg per hour of Versed and 100 mcg per hour of fentanyl on board. Intubated and admitted with epigastric discomfort, hematemesis, history of COPD, stroke, mechanical valve replacement. MEDICATIONS: In addition to what was listed are 1. Gentamicin 2. Vancomycin. 3. Metronidazole. DESCRIPTION OF RECORD: Quite a bit of muscle artifact throughout the recording, but overall about 3-4 Hz background is seen. Some issue I guess the patient, looks like constant head and eye movement. The EKG looks sinus; but overall, there looks like what appears to be theta frequency. Slowing, no epileptiform features. Photic stimulation without any significant driving response. IMPRESSION: Overall, what appears to be a moderate slowing of background can be seen in the encephalopathic process, may be due to the medicine the patient is still on sedation espinal with his intubation, but no evidence of epileptiform features in this recording. Clinical correlation. MD CLEMENT Mcfadden/ , 06:40 PM , 06:46 PM
[2018-02-15] MEDS: MethylPREDNISolone Sod Succinate Inj 40 MG/ML Vial IV.PUSH SCH (20:21)
--- NOTE | 2018-02-15 23:40 | P.PNID ---
Subjective Remarks: delayed entry pt was seen earlier today remains on vent afebrile more awake and responsive Antibiotics: vanco gent cefepime oral vanco iv flagyl Allergies/Adverse Reactions: Allergies No Known Allergies Allergy (Verified 02/04/18 18:10) Objective Vital Signs 02/15/18 00:04 02/15/18 03:00 02/15/18 04:02 Temperature 96.4 F L Pulse Rate 63 66 Respiratory Rate 16 13 13 Blood Pressure 120/68 Pulse Oximetry 96 100 100 02/15/18 07:00 02/15/18 08:00 02/15/18 08:03 Temperature 95.5 F L Pulse Rate 60 60 Respiratory Rate 18 16 Blood Pressure 116/70 Pulse Oximetry 98 98 94 L 02/15/18 08:06 02/15/18 08:30 02/15/18 09:00 Temperature Pulse Rate 59 L 55 L 58 L Respiratory Rate 16 17 17 Blood Pressure 116/70 118/70 Pulse Oximetry 96 96 02/15/18 09:30 02/15/18 10:00 02/15/18 10:30 Temperature Pulse Rate 59 L 56 L 56 L Respiratory Rate 16 18 Blood Pressure 113/70 114/68 Pulse Oximetry 94 L 98 97 02/15/18 11:00 02/15/18 11:21 02/15/18 11:23 Temperature Pulse Rate 57 L 62 Respiratory Rate 17 15 14 Blood Pressure 111/64 Pulse Oximetry 100 98 02/15/18 11:30 02/15/18 12:00 02/15/18 12:30 Temperature 99.1 F Pulse Rate 60 60 66 Respiratory Rate 16 17 23 Blood Pressure 111/63 108/62 120/71 Pulse Oximetry 98 98 100 02/15/18 12:43 02/15/18 13:00 02/15/18 13:28 Temperature Pulse Rate 70 70 Respiratory Rate 14 21 Blood Pressure 130/77 137/77 Pulse Oximetry 100 100 02/15/18 13:30 02/15/18 13:56 02/15/18 14:00 Temperature Pulse Rate 71 71 65 Respiratory Rate Blood Pressure 129/76 117/67 129/72 Pulse Oximetry 100 100 100 02/15/18 14:30 02/15/18 15:00 02/15/18 15:30 Temperature Pulse Rate 80 68 68 Respiratory Rate Blood Pressure 140/78 134/80 127/76 Pulse Oximetry 100 100 100 02/15/18 16:00 02/15/18 16:09 02/15/18 16:10 Temperature 99 F Pulse Rate 76 71 Respiratory Rate 14 15 15 Blood Pressure 148/87 H Pulse Oximetry 98 100 02/15/18 16:30 02/15/18 19:00 02/15/18 20:27 Temperature 96 F L Pulse Rate 59 L 57 L 80 Respiratory Rate 10 L 13 Blood Pressure 127/74 118/66 Pulse Oximetry 100 100 100 02/15/18 23:00 Temperature Pulse Rate 66 Respiratory Rate Blood Pressure Pulse Oximetry Intake & Output 02/15/18 02/15/18 02/16/18 06:59 18:59 06:59 Intake Total 575 / 575 1531.375 / 1531.375 Output Total 2200 / 2200 1400 / 1400 Balance -1625 / -1625 131.375 / 131.375 Intake: IV 450 / 450 1531.375 / 1531.375 Heparin/D5W 25,000 U/250 mL 25, 250 / 250 000 unit In 250 ml @ 800 UNITS/ HR 8 mls/hr IV.CONT TITRATE PRN Rx#:[id number] Versed Inj 50 mg In 50 ml @ 2 150 / 150 MG/HR 2 mls/hr IV.CONT TITRATE PRN Rx#:[id number] Maxipime Inj 2,000 MG In NS Inj 100 / 100 100 ML @ 200 mls/hr IV.SIG Q12H ADRIEN Rx#:[id number] Gentamicin Inj 55 MG In NS Inj 100 / 100 101.375 / 101.375 100 ML @ 203 mls/hr IV.SIG Q12H ADRIEN Rx#:[id number] KCl 40 mEq Premix Inj 40 meq In 100 / 100 100 / 100 100 ml @ 25 mls/hr IV.SIG UNSCH PRN Rx#:[id number] Vancomycin Inj 1,500 MG In NS 530 / 530 Inj 500 ML @ 250 mls/hr IV.SIG Q24H ADRIEN Rx#:[id number] fentaNYL 10 mcg/mL Premix Drip 250 / 250 2,500 mcg In 250 ml @ 50 MCG/HR 5 mls/hr IV.SIG TITRATE PRN Rx #:[id number] Flagyl 500 MG Inj 100 ML @ 100 100 / 100 200 / 200 mls/hr IV.SIG Q8H ADRIEN Rx#: [id number] Tube Feeding 125 / 125 Output: Stool 50 / 50 100 / 100 Urine Amount (Catheter) 2149 1000 / 1000 Indwelling Temp Sensing 2149 1000 / 1000 Catheter Gastric Drainage 300 / 300 Oral 300 / 300 Other: Date of Last Bowel Movement 02/15/18 02/14/18 02/14/18 02/14/18 16:00 Sputum - Tracheal Aspirate Gram Stain - Final 02/14/18 16:00 Sputum - Tracheal Aspirate Sputum Culture - Preliminary No growth in 24 hours 02/11/18 03:54 Blood - Peripheral Aerobic Blood Culture - Preliminary No growth in 4 days 02/11/18 03:54 Blood - Peripheral Anaerobic Blood Culture - Preliminary No growth in 4 days 02/11/18 03:49 Blood - Peripheral Aerobic Blood Culture - Preliminary No growth in 4 days 02/11/18 03:49 Blood - Peripheral Anaerobic Blood Culture - Preliminary No growth in 4 days 02/11/18 03:40 Sputum - Endotracheal Gram Stain - Final 02/11/18 03:40 Sputum - Endotracheal Sputum Culture - Final Pseudomonas aeruginosa Klebsiella pneumoniae Lab - Hematology Results 02/14/18 02/15/18 05:17 04:30 WBC 5.9 6.5 RBC 2.81 L 2.85 L Hgb 8.5 L 8.7 L Hct 25.7 L 26.2 L MCV 91.5 92.1 MCH 30.1 30.7 MCHC 32.9 33.3 RDW 16.8 17.1 Plt Count 261 267 MPV 9.0 8.9 Prelim Diff (Auto) Slide review pending Slide review pending Neut % (Auto) 89.5 H 88.7 H Lymph % (Auto) 5.0 L 4.3 L Gilliam % (Auto) 5.4 7.0 Eos % (Auto) 0.0 0.0 Baso % (Auto) 0.1 0.0 Neut # (Auto) 5.3 5.7 Lymph # (Auto) 0.3 L 0.3 L Gilliam # (Auto) 0.3 0.5 Eos # (Auto) 0.0 0.0 Baso # (Auto) 0.0 0.0 WBC Differential Manual diff final Manual diff final Seg Neuts % (Manual) 86 H 80 H Band Neuts % (Manual) 1 Lymphocytes % (Manual) 8 L 10 Monocytes % (Manual) 4 7 Metamyelocytes % (Man) 1 1 Myelocytes % (Man) 1 H Promyelocytes % (Man) 1 H Abs Neuts (Manual) 5.2 5.4 Differential Comment . . Platelet Estimate Normal Normal Platelet Morphology Normal Normal Ovalocytes 1+ H Keratocytes Occ H Lab - Chemistry Results 02/13/18 02/14/18 02/14/18 23:49 05:13 05:17 Sodium 146 H Potassium 3.2 L Chloride 112 H Carbon Dioxide 25.8 Anion Gap 8 BUN 48 H Creatinine 1.23 Estimated GFR 59 L POC Glucose 152 H 156 H Random Glucose 141 H Calcium 8.6 Phosphorus 2.7 Magnesium 2.2 Total Bilirubin 0.4 AST 25 ALT 33 Alkaline Phosphatase 56 Total Protein 6.7 Albumin 3.1 L 02/14/18 02/14/18 02/14/18 13:33 17:10 23:35 Sodium Potassium Chloride Carbon Dioxide Anion Gap BUN Creatinine Estimated GFR POC Glucose 161 H 138 H 200 H Random Glucose Calcium Phosphorus Magnesium Total Bilirubin AST ALT Alkaline Phosphatase Total Protein Albumin 02/15/18 02/15/18 02/15/18 01:00 04:30 20:30 Sodium 149 H Potassium 3.2 L 3.3 L 3.5 Chloride 114 H Carbon Dioxide 28.3 Anion Gap 7 BUN 47 H Creatinine 1.28 Estimated GFR 57 L POC Glucose Random Glucose 175 H Calcium 8.5 Phosphorus 2.5 Magnesium 2.0 Total Bilirubin 0.5 AST 23 ALT 16 Alkaline Phosphatase 56 Total Protein 6.6 Albumin 3.2 L 02/15/18 23:18 Sodium Potassium Chloride Carbon Dioxide Anion Gap BUN Creatinine Estimated GFR POC Glucose 138 H Random Glucose Calcium Phosphorus Magnesium Total Bilirubin AST ALT Alkaline Phosphatase Total Protein Albumin Imaging: ITS Impressions Abdomen/Bladder Ultrasound 02/05/18 00:00 CONCLUSION: 1. No evidence of hydronephrosis. 2. The echogenicity of the kidneys is equal to that of the liver which can be seen with medical renal disease. 3. Simple cyst in right kidney. 4. Suboptimal visualization of the left kidney. 5. Small amount of free fluid along the spleen. This could represent an adjacent pleural effusion. Chest X-Ray 02/15/18 06:00 CONCLUSION: Hazy opacity is now noted in the perihilar regions and both lung bases as well as a small left effusion. The findings are most characteristic of congestive heart failure. Head CT 02/15/18 12:23 CONCLUSION: 1. Negative CT Head non contrast. . Physical Exam: GENERAL: intubated on vent SKIN: Warm and dry. HEAD: Atraumatic. Normocephalic. EYES: Pupils equal and round. No scleral icterus. No injection or drainage. ENT: No nasal bleeding or discharge. Mucous membranes pink and moist. NECK: Trachea midline. No JVD. CARDIOVASCULAR: Regular rate and rhythm. + diastolic blowing murmur on aortic valve point 1-/6 today RESPIRATORY: No accessory muscle use. b/l rales to auscultation. Breath sounds equal bilaterally. GASTROINTESTINAL: Abdomen soft, non-tender, not distended. Hepatic and splenic margins not palpable. : roberson in place with good amount of urine MUSCULOSKELETAL: Extremities without clubbing, cyanosis, or edema. No obvious deformities. warmt o cool to touch feet NEUROLOGICAL: moves around, eyes closed, moves all extremeties, not following commands PSYCHIATRIC:unable to assess Assessment and Plan - Plan Sepsis C.diff ? 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
[2018-02-16] MEDS: Milrinone Inj 20 MG in Sodium Chlor 0.9% Inj 80 ML IV.CONT SCH ×3 (01:14→21:39)
[2018-02-16] MEDS: Midazolam 50 MG/50 ML Inj 50 MG/50 ML BAG IV.CONT PRN ×3 (01:14→23:39)
[2018-02-16] MEDS: SODIUM CHLOR 0.9% IV.SIG SCH ×2 (02:51→14:37)
[2018-02-16] MEDS: GENTAMICIN IV.SIG SCH ×2 (02:51→14:37)
[2018-02-16] MEDS: Oral Hygiene Kit OROPHARYNG SCH ×4 (03:52→23:38)
[2018-02-16] MEDS: Chlorhexidine Gluconate 2% 1 Pack (2 Cloths) TOPICAL SCH (03:52)
[2018-02-16 04:18] LABS: Hematocrit 26.2 % (39.0-51.0); Hemoglobin 8.7 gm/dL (13.0-17.0); Lymph # (Auto) 0.4 th/mm3 (1.0-4.8); Lymph % (Auto) 3.2 % (9.0-44.0); Mean Corpuscular HGB Conc 33.1 % (32.0-36.0); Mean Corpuscular Hemoglobin 30.7 pg (27.0-34.0); Mean Corpuscular Volume 92.6 fL (80.0-100.0); Mean Platelet Volume 8.9 fL (7.0-11.0); Mono # (Auto) 0.8 th/mm3 (0.0-0.9); Mono % (Auto) 6.5 % (0.0-8.0); Neut # (Auto) 11.4 th/mm3 (1.8-7.7); Neut % (Auto) 90.3 % (16.0-70.0); Platelet Count 260 th/mm3 (150-450); Red Blood Count 2.83 mil/mm3 (4.50-5.90); Red Cell Distribution Width 17.2 % (11.6-17.2); White Blood Count 12.6 th/mm3 (4.0-11.0)
[2018-02-16 04:29] LABS: Alanine Aminotransferase 16 U/L (12-78); Albumin 3.1 g/dL (3.4-5.0); Anion Gap 7 meq/L (5-15); Aspartate Aminotransferase 27 U/L (15-37); Blood Urea Nitrogen 43 mg/dL (7-18); Calcium 8.6 mg/dL (8.5-10.1); Carbon Dioxide 30.5 meq/L (21.0-32.0); Chloride 114 meq/L (98-107); Glomerular Filtration Rate 64 mL/min (>89); Glucose,Random 138 mg/dL (74-106); Phosphorus 2.9 mg/dL (2.5-4.9); Potassium 3.7 meq/L (3.5-5.1); Sodium 151 meq/L (136-145)
[2018-02-16 04:31] LABS: Alkaline Phosphatase 55 U/L (45-117); Total Protein 6.6 g/dL (6.4-8.2)
[2018-02-16] MEDS: Insulin NovoLOG Aspart Correctional Sugar Inj SQ SCH ×4 (05:34→23:37)
[2018-02-16] MEDS: fentaNYL 10 mcg/mL Premix Drip 2,500 MCG/250 ML BAG IV.SIG PRN ×2 (05:43→20:18)
[2018-02-16] MEDS: MethylPREDNISolone Sod Succinate Inj 40 MG/ML Vial IV.PUSH SCH ×2 (08:38→20:18)
[2018-02-16] MEDS: Amiodarone 200 MG Tablet G-TUBE SCH ×2 (08:39→20:17)
[2018-02-16] MEDS: Senna/Docusate Sodium 8.6/50 MG Tablet PO SCH ×2 (08:39→20:20)
[2018-02-16] MEDS: Pregabalin 75 MG Capsule PO SCH ×2 (08:39→20:18)
[2018-02-16] MEDS: Potassium Chloride 10 MEQ ER Capsule G-TUBE SCH ×2 (08:39→20:17)
[2018-02-16] MEDS: Ascorbic Acid 500 MG Tablet NG/OG SCH (08:39)
--- NOTE | 2018-02-16 08:39 | P.PNCC ---
Subjective Subjective Remarks/Hospital Course: 62-year-old male with past medical history of [place] mechanical aortic valve (09/21/12 Dr. Gonzalez), on chronic anticoagulation with warfarin, atrial fibrillation postop from AVR , COPD on 2.5 L home O2, stroke in 2015 resulting in left-sided sensory deficits and neuropathy, osteoporosis with chronic low back pain. He was recently admitted to [facility] from 01/23 through 01/31/18 for MSSA bacteremia. It is believed that the original source of infection was a wound on his right index finger when electric drill slipped and created a puncture wound. He was discharged with right upper extremity PICC line receiving cefazolin 2 g IV every 8 hours and gentamicin 210 mg IV daily. He states that home health administered antibiotics at 17:00 and shortly thereafter he began having chills and rigors and sought medical attention at [facility]. He had no rash. Upon arrival, he was hypotensive in the low 80s. He was given 2 L S bolus but remained hypotensive so was started on Levophed. He then developed heart rate in the 140s, reportedly atrial flutter so he was started on Amiodarone drip in [place] and converted to sinus rhythm. He was transfused 2 units PRBC due to Hgb 9.3. His stool was nonbloody nonmelena but was Hemoccult positive. He was given zosyn and vancomycin. Critical care medicine was then contacted and accepted patient for transfer to [facility]. He denies tenderness/redness/drainage at PICC site. Aside from mechanical aortic valve, he has no other hardware or indwelling devices. He denies headache, cough, dysuria. He has had a few loose stools at home, but stools have sometimes been formed. He denies chest pain, does report some SOB. EKG at [place] had marked inferolateral ischemic changes. Obtained EKG upon arrival to [facility] which is improved. SUBJ 02/05: Patient remains critical ill appearing, complaints of chest tightness but denies pain. Remains on 8 mcg/min of Levophed to maintain map about 65. However increasing shortness of breath. Chest x-ray shows increasing pulmonary edema. Troponin was 27.5 currently on IV heparin therapeutic. Cardiology consult is pending at this time. I will stop on maintenance fluids give 40 mg IV Lasix and IV albumin 25 g 1. 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 IABP placed. patient emergently intubated for acute hypoxic respiratory failure secondary to cardiogenic shock and pulmonary edema. started on milrinone at 0.375 mcg/kg/min and levophed. bumex drip started. remains critically ill. 02/07: Remains critically ill remains on Levophed and milrinone. Currently diuresing well with Bumex drip. IABP in place management per cardiology-good waveform and augmentation. Chest x-ray shows adequate positioning of IABP, diffuse bilateral pulmonary edema 02/08: Remains critical but showing some signs of improvement. Diuresing very well on Bumex infusion. Remains on Levophed and milrinone. IABP one-to-one with good augmentation management per cardiology. Chest x-ray shows improving edema but with persistent bilateral effusions. Will initiate weaning trials if tolerated 02/09: Still remains on pressors, unable to wean Levophed below 2 mcg/min. Milrinone currently on 0.375 mcg/kg/min. IABP removed yesterday. On sedation hold patient wakes up but remains lethargic. Weakly squeezes hand. Urine output excellent on Bumex, 4 L output in 24 hours. Will attempt CPAP today 02/10: Multiple episodes of V. fib V. tach arrest yesterday morning. Successfully resuscitated. Yesterday night had two-minute V. fib arrest return of spontaneous circulation in sinus rhythm after DC cardioversion 1. Currently remains on milrinone and low-dose Levophed. I will try to wean off Levophed introduce low-dose beta-rasheed due to recurrent arrhythmia. Keep potassium more than 4 magnesium more than 2 02/11: Patient still critical and cardiogenic shock requiring Levophed and milrinone. Urine output improved with adding Diamox. Approximately 2 L urine output in 24 hours, creatinine remained stable. Oxygenation slightly improved FiO2 reduced to 70% now. Overall prognosis remains poor family wants to continue aggressive care 02/12: Remains critical but slight improvement in oxygenation. But continues to require Levophed and milrinone the low-dose. Urine output remains adequate. Chest x-ray shows interval improvement. Creatinine remains stable to slightly improved. Add IV albumin to improve blood pressure and to promote diuresis. 02/13 Patient remains intubated and sedated with Versed and fentanyl. Afebrile, off Levophed remains on Milrinone and Heparin drip. SUBJECTIVE: 02/14: Hypothermic overnight. Remains on milrinone and heparin drips. Tolerating tube feeds at 20 cc now. Positive BM. No changes neurologically 02/15 Patient remains sedated with Versed and Fentanyl drips, on Milrinone 0.5. 02/16 Patient remains intubated sedated with Versed and Fentanyl infusion. On Milrinone and Heparin drips. CT brain yesterday showed no acute findings. Afebrile. Objective Vital Signs / I&O: Vital Signs 02/15/18 09:00 02/15/18 09:30 02/15/18 10:00 Temperature Pulse Rate 58 L 59 L 56 L Respiratory Rate 17 16 Blood Pressure 118/70 113/70 Pulse Oximetry 96 94 L 98 02/15/18 10:30 02/15/18 11:00 02/15/18 11:21 Temperature Pulse Rate 56 L 57 L Respiratory Rate 18 17 15 Blood Pressure 114/68 111/64 Pulse Oximetry 97 100 98 02/15/18 11:23 02/15/18 11:30 02/15/18 12:00 Temperature 99.1 F Pulse Rate 62 60 60 Respiratory Rate 14 16 17 Blood Pressure 111/63 108/62 Pulse Oximetry 98 98 02/15/18 12:30 02/15/18 12:43 02/15/18 13:00 Temperature Pulse Rate 66 70 Respiratory Rate 23 14 21 Blood Pressure 120/71 130/77 Pulse Oximetry 100 100 02/15/18 13:28 02/15/18 13:30 02/15/18 13:56 Temperature Pulse Rate 70 71 71 Respiratory Rate Blood Pressure 137/77 129/76 117/67 Pulse Oximetry 100 100 100 02/15/18 14:00 02/15/18 14:30 02/15/18 15:00 Temperature Pulse Rate 65 80 68 Respiratory Rate Blood Pressure 129/72 140/78 134/80 Pulse Oximetry 100 100 100 02/15/18 15:30 02/15/18 16:00 02/15/18 16:09 Temperature 99 F Pulse Rate 68 76 Respiratory Rate 14 15 Blood Pressure 127/76 148/87 H Pulse Oximetry 100 98 100 02/15/18 16:10 02/15/18 16:30 02/15/18 19:00 Temperature 96 F L Pulse Rate 71 59 L 57 L Respiratory Rate 15 10 L Blood Pressure 127/74 118/66 Pulse Oximetry 100 100 02/15/18 20:27 02/15/18 23:00 02/16/18 00:00 Temperature 99.1 F Pulse Rate 80 66 66 Respiratory Rate 13 10 L Blood Pressure 121/69 Pulse Oximetry 100 99 02/16/18 03:00 02/16/18 04:00 02/16/18 04:14 Temperature 97.1 F L Pulse Rate 53 L 54 L 53 L Respiratory Rate 16 14 Blood Pressure 110/62 Pulse Oximetry 100 100 02/16/18 07:41 Temperature Pulse Rate 67 Respiratory Rate 12 Blood Pressure Pulse Oximetry 100 Intake & Output 02/15/18 02/16/18 02/16/18 18:59 06:59 18:59 Intake Total 1631.375 / 1631.375 586.95 / 586.95 Output Total 1400 / 1400 3300 / 3300 Balance 231.375 / 231.375 -2713.05 / -2713.05 Weight 58 kg Intake: IV 1631.375 / 1631.375 586.95 / 586.95 Heparin/D5W 25,000 U/250 mL 25, 250 / 250 000 unit In 250 ml @ 800 UNITS/ HR 8 mls/hr IV.CONT TITRATE PRN Rx#:[id number] Versed Inj 50 mg In 50 ml @ 2 50 / 50 MG/HR 2 mls/hr IV.CONT TITRATE PRN Rx#:[id number] Primacor Inj 20 MG In NS Inj 80 100 / 100 ML @ Per Protocol IV.CONT .Q0M ADRIEN Rx#:[id number] Maxipime Inj 2,000 MG In NS Inj 200 / 200 100 / 100 100 ML @ 200 mls/hr IV.SIG Q12H [facility] Rx#:[id number] Gentamicin Inj 38 MG In NS Inj 101.375 / 101.375 100.95 / 100.95 100 ML @ 201.9 mls/hr IV.SIG Q12H [facility] Rx#:[id number] KCl 40 mEq Premix Inj 40 meq In 100 / 100 100 ml @ 25 mls/hr IV.SIG UNSCH PRN Rx#:[id number] Vancomycin Inj 1,500 MG In NS 530 / 530 Inj 500 ML @ 250 mls/hr IV.SIG Q24H [facility] Rx#:[id number] fentaNYL 10 mcg/mL Premix Drip 250 / 250 136 / 136 2,500 mcg In 250 ml @ 50 MCG/HR 5 mls/hr IV.SIG TITRATE PRN Rx #:[id number] Flagyl 500 MG Inj 100 ML @ 100 200 / 200 100 / 100 mls/hr IV.SIG Q8H [facility] Rx#: [id number] Output: Stool 100 / 100 500 / 500 Urine Amount (Catheter) 1000 / 1000 2800 / 2800 Indwelling Temp Sensing 1000 / 1000 2800 / 2800 Catheter Gastric Drainage 300 / 300 0 / 0 Oral 300 / 300 0 / 0 Other: Date of Last Bowel Movement 02/14/18 02/16/18 Result Diagrams: 02/16/18 03:48 02/16/18 03:48 Other Results: Laboratory Results - last 12 hr 02/15/18 02/15/18 02/16/18 20:30 23:18 03:48 WBC 12.6 H D RBC 2.83 L Hgb 8.7 L Hct 26.2 L MCV 92.6 MCH 30.7 MCHC 33.1 RDW 17.2 Plt Count 260 MPV 8.9 Neut % (Auto) 90.3 H Lymph % (Auto) 3.2 L [place] % (Auto) 6.5 Eos % (Auto) 0.0 Baso % (Auto) 0.0 Neut # (Auto) 11.4 H Lymph # (Auto) 0.4 L [place] # (Auto) 0.8 Eos # (Auto) 0.0 Baso # (Auto) 0.0 WBC Differential . Differential Comment Auto diff final APTT Sodium Potassium 3.5 Chloride Carbon Dioxide Anion Gap BUN Creatinine Estimated GFR POC Glucose 138 H Random Glucose Calcium Phosphorus Magnesium Total Bilirubin AST ALT Alkaline Phosphatase Total Protein Albumin 02/16/18 02/16/18 02/16/18 03:48 03:48 04:48 WBC RBC Hgb Hct MCV MCH MCHC RDW Plt Count MPV Neut % (Auto) Lymph % (Auto) [place] % (Auto) Eos % (Auto) Baso % (Auto) Neut # (Auto) Lymph # (Auto) [place] # (Auto) Eos # (Auto) Baso # (Auto) WBC Differential Differential Comment APTT 105.2 H* D 104.6 H* Sodium 151 H Potassium 3.7 Chloride 114 H Carbon Dioxide 30.5 Anion Gap 7 BUN 43 H Creatinine 1.15 Estimated GFR 64 L POC Glucose Random Glucose 138 H Calcium 8.6 Phosphorus 2.9 Magnesium 2.0 Total Bilirubin 0.6 AST 27 ALT 16 Alkaline Phosphatase 55 Total Protein 6.6 Albumin 3.1 L 02/16/18 02/16/18 05:24 05:45 WBC RBC Hgb Hct MCV MCH MCHC RDW Plt Count MPV Neut % (Auto) Lymph % (Auto) [place] % (Auto) Eos % (Auto) Baso % (Auto) Neut # (Auto) Lymph # (Auto) [place] # (Auto) Eos # (Auto) Baso # (Auto) WBC Differential Differential Comment APTT 59.0 H D Sodium Potassium Chloride Carbon Dioxide Anion Gap BUN Creatinine Estimated GFR POC Glucose 139 H Random Glucose Calcium Phosphorus Magnesium Total Bilirubin AST ALT Alkaline Phosphatase Total Protein Albumin Imaging: Abdomen/Bladder Ultrasound 02/05/18 00:00 CONCLUSION: 1. No evidence of hydronephrosis. 2. The echogenicity of the kidneys is equal to that of the liver which can be seen with medical renal disease. 3. Simple cyst in right kidney. 4. Suboptimal visualization of the left kidney. 5. Small amount of free fluid along the spleen. This could represent an adjacent pleural effusion. Chest X-Ray 02/15/18 06:00 CONCLUSION: Hazy opacity is now noted in the perihilar regions and both lung bases as well as a small left effusion. The findings are most characteristic of congestive heart failure. Head CT 02/15/18 12:23 CONCLUSION: 1. Negative CT Head non contrast. . Head MRI 02/16/18 08:28 CONCLUSION: 1. New focus of restricted diffusion high along the right cerebral vertex measuring 8 mm consistent with a new small focal acute infarction. 2. There is a new 5 mm area restricted diffusion high along the left cerebral vertex consistent with a new small focal acute infarction. 3. 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 This area is stable compared to the prior examination. 4. Stable bilateral cortical atrophy and mild chronic white matter changes. 5. Chronic bilateral mastoiditis. . Objective Remarks: GENERAL: 62-year-old male currently orotracheally intubated SKIN: cool and poorly perfused. No rash or skin breakdown HEAD: Atraumatic. Normocephalic. EYES: Pupils equal and round, 2 mm and reactive. No scleral icterus. No injection or drainage. ENT: No nasal bleeding or discharge. Orotracheally intubated NECK: Trachea midline. + JVD. left IJ TLC clean dry and dressing intact. CARDIOVASCULAR: RRR. S1, S2. No S4. No murmurs rubs or gallops. RESPIRATORY: Bilateral coarse rhonchi and and rales, at bases improved GASTROINTESTINAL: Abdomen soft, non-tender, nondistended. no guarding. VASC: Right radial art line in place with distal perfusion intact. right femoral IABP removed. no evidence of hematoma. distal pulses dopplerable. MUSCULOSKELETAL: Extremities with trace bilateral lower extremity edema NEUROLOGICAL: Sedated, intubated, doesn't follow commands off sedation Assessment and Plan - Assessment and Plan Plan: NEURO/PSYCH: History of stroke in 2015 Neuropathy left upper and lower extremity Chronic low back pain On Fentanyl drip at 200 micrograms per hour and midazolam drip at 8 mg an hour for sedation/analgesia while intubated Goal of RA SS -2 Daily sedation vacation Monitor neuro status 02/15 CT brain: No acute findings 02/15 EEG : Encephalopathy, no epileptiform activity MRI brain today: New focus of restricted diffusion high along the right cerebral vertex measuring 8 mm consistent with a new small focal acute infarction. There is a new 5 mm area restricted diffusion high along the left cerebral vertex consistent with a new small focal acute infarction Neuro eval Continue pregabalin 150 mg p.o. twice daily. Hold duloxetine 90 mg p.o. daily RESP: Acute hypoxic respiratory failure COPD on 2.5 L home O2 Prior tobacco abuse Continue with vent support keep sats >92% On PRVC RR 10, TV 400, IT: 1.0, PEEP:5 FIO2: 45%. Albuterol/ipratropium aerosols every 4 hours with albuterol aerosols every 2 hours as needed for dyspnea SBT daily as garrett vent bundle, hob elevated. Decrease methylprednisolone succinate 40mg IV Q12 CV: V. tach/V. fib arrest NSTEMI Cardiogenic shock Acute systolic heart failure Atrial fibrillation with RVR [place] mechanical aortic valve (09/21/12 Dr. Gonzalez) s/p Tricuspid annuloplasty Wean off milrinone infusion 0.5 mcg/kg/min Monitor HR and BP keep MAP>65mmHg s/p cath And PCI -proximal LAD and large diagonal 90% stenosis, 2 BMS stent 02/05, mid LAD vasospasm post PCI Continue aspirin 81 mg daily, clopidogrel 75 mg daily, amiodarone 400mg TID, carvedilol 3.125mg BID, Bumetanide 1mg IV BID and Spironolactone 50 mg twice daily heparin drip currently at 800 units an hour. PTT therapeutic. Continue atorvastatin 40 mg nightly. Off IABP 02/08/18 [place] 01/23/18no vegetation. Normal aortic mechanical valve with trivial aortic insufficiency. Tricuspid annuloplasty. Mild to moderate LV generalized hypokinesis Echo from 02/05: EF <20%, diffuse hypokinesis, bioprosthetic valve [employer] is Romana Bartlett GI: Resume tube feeds- On Jevity 1.5 Lansoprazole for stress ulcer prophylactic Had normal EGD on 10/21/17 FEN/RENAL: BPH Acute kidney injury-improving Cano due to aggressive diuresis. 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 difficile colitis PICC removed Continue IV vancomycin, IV gentamicin and IV cefepime C.diff tx: po vanco + IV flagyl 02/11/18 Infectious disease following 02/11 Sputum cx: Pseudomonas, GNR BC 02/11, 02/06: NGTD HEME: Chronic anemia Iron deficiency Continue ferrous sulfate 300 milligrams liquid daily. Received 2 units packed red cells in [place] ER due to anemia and shock. Monitor CBC ENDO: SSI to maintain euglycemia PROPH: Heparin drip. Protonix for stress ulcer prophylaxis ACCESS: Right radial art line placed in the emergency department 02/04. Left IJ central line placed 02/05/18. Removed right upper extremity PICC. Palliative care is following CCT 30 minutes exclusive of separately billable procedures.`
[2018-02-16] MEDS: Hypromellose 0.3% Opth Gel 10 GM Bottle EACH EYE SCH ×2 (08:40→23:28)
[2018-02-16] MEDS: Ferrrous Sulfate 300 MG/5 ML UDC PO SCH (08:40)
[2018-02-16] MEDS: Beneprotein Powder Packet G-TUBE SCH ×3 (08:41→17:21)
[2018-02-16] MEDS: Chlorhexidine 0.12% Oral Kit 15 ML UDC OROPHARYNG SCH ×2 (08:41→20:19)
[2018-02-16] MEDS: Spironolactone 50 MG Tablet PO SCH ×2 (08:44→17:20)
--- NOTE | 2018-02-16 11:35 | MR ---
EXAM DATE: 02/16/2018 11:06 AM EDT AGE/SEX: 62 years / Male INDICATIONS: Altered mental status. CLINICAL DATA: This is the patient's subsequent encounter. Patient reports that signs and symptoms h ave been present for 2 weeks and indicates a pain score of Nonresponsive. MEDICAL/SURGICAL HISTORY: Chronic obstructive pulmonary disease. Stroke. CHF, BPH, Afib CABG. COMPARISON: [facility], MR HEAD W & W/O CONTRAST, 01/23/2018. . TECHNIQUE: Multiplanar, multisequence examination of the brain was performed without contrast. FINDINGS: Cerebrum: The ventricles are normal for age. No evidence of midline shift, mass lesion, acute hemor rhage.. No extraaxial fluid collections are seen. The pituitary gland and suprasellar cistern are n ormal in configuration. There is stable encephalomalacia involving the medial right temporal lobe wit h evidence of previous chronic hemorrhage. This finding is stable compared to the prior examination. White Matter: No significant signal abnormalities are seen in the white matter. There are some mild chronic white matter changes bilaterally consistent with patient's age. Posterior Fossa: The cerebellum and brainstem are intact. The 4th ventricle is midline. The cerebel lopontine angle is unremarkable. The cerebellar tonsils are normal in position. Diffusion Imaging: There is a new 8 mm focus of restricted diffusion high along the right cerebral v ertex consistent with a small focal acute infarction. There is also a tiny 5 mm area of restricted di ffusion along the high left cerebral vertex. These findings are new compared to the prior study. Extracranial: The visualized portions of the orbits and paranasal sinuses are unremarkable. There is evidence of chronic bilateral mastoiditis. CONCLUSION: 1. New focus of restricted diffusion high along the right cerebral vertex measuring 8 mm consistent with a new small focal acute infarction. 2. There is a new 5 mm area restricted diffusion high along the left cerebral vertex consistent with a new small focal acute infarction. 3. Stable encephalomalacia most likely from a previous hemorrhagic infarct involving the medial righ t temporal lobe. This area is stable compared to the prior examination. 4. Stable bilateral cortical atrophy and mild chronic white matter changes. 5. Chronic bilateral mastoiditis. Electronically signed by: Mark Magaña MD 02/16/2018 11:34 AM EDT
[2018-02-16] MEDS: Vancomycin Inj 1,500 MG in Sodium Chlor 0.9% Inj 500 ML IV.SIG SCH (12:28)
--- NOTE | 2018-02-16 14:45 | P.DIET ---
Nutritional Evaluation Type of nutrition evaluation: follow-up Nutrition consult regarding: Tube Feeding Objective - Diagnosis Septic Shock - Objective % IBW: 88 (IBW = 148#) Body Weight Used for Calculations: Actual (59 kg) Energy Needs - Lower Range (kCal/kg): 28 Energy Needs - Upper Range (kCal/kg): 32 Lower Limit kCal/kg (kCals): 1,652 Upper Limit kCal/kg (kCals): 1,888 Lower Limit Protein Factor (Grams per Kg): 1.2 Upper Limit Protein Factor (Grams per Kg): 1.6 Lower Protein Needs (Protein): 71 Upper Protein Needs (Protein): 94 Dietitian Reviewed in Medical Record: Curent medications, Intake & Output, Labs , Medical history, Tube feeding Diet Order: TF only Objective Comments: PMH: HLD, MSSA Bacteremia, COPD, CVA, Osteoporosis, Neuropathy Meds include: Fentanyl, Versed, Vit C, Lipitor, Ferrous Sulfate, Solumedrol, Theragran, Beneprotein Labs include: WBC 12.6, Hgb 8.7, Hct 26.2, Na 151, Glu 138 Last BM 02/16 Assessment Assessment: Pt remains intubated and sedated on fentanyl and versed. TF Jevity 1.5 has been only running at 20 ml/hr, was on hold but restarted today. To meet needs with Jevity 1.5, recommend goal rate of 50 mls/hr to provide 1800 kcals, 77 gms protein and 912 mls of free water. Beneprotein as ordered will provide an additional 75 kcals and 18 gms of protein. Will continue to monitor TF tolerance , clinical course Recommendations: Jevity 1.5 with goal rate of 50 mls/hr Beneprotein as ordered Dietitian to Monitor: Lab values, Intake & Output, Tube feeding tolerance, Weight change, Medical course
--- NOTE | 2018-02-16 15:28 | P.PNPAL ---
Reason for Visit Reason for visit: a. To assist with evaluation and management of symptoms including: pain, dyspnea, weakness b. To assist medical decision maker(s) with: better understanding of current medical conditions; weighing benefits/burdens of medical treatment options; making medical treatment decisions. Subjective Subjective/Interval History: Pt lying in bed, intubated on vent. Sedated on vent. Fentanyl 20ml/hr, versed 4ml/hr. Failing spontaneous breathing trials d/t agitation. MRI showed 2 new infarcts- 8mm right cerebral vertex, 5mm left cerebral vertex. EEG showed moderate slowing, cou ld be d/t sedation. Not responsive on my eval, +left foot drop. CXR 02/15 showed CHF. On milrinone still. Sputum with gram neg rods. Will need trach and PEG Tuesday 02/20 if aggressive measures to continue, per CCM. to pray on this. Family/Friend Interactions: at bedside: -briefly reviewed Palliative care role, purpose, approach -Additional psychosocial history -family understanding of the current medical problems -family understanding of prognosis -Current medical treatment options and their benefits/burdens -Likely scenarios with aggressive care -Questions answered to the best of my ability - Palliative care contact information provided Goals aggressive thus far. Pt's says she is going to pray before making trach and PEG decision, says she spoke with youth ministry director who said he would "wait as long as he could." She feels that pt is "exactly where he is supposed to be " and she knows "this will be a long recovery" but has "jimmie he will come home. " Objective Vital Signs: Vital Signs 02/15/18 15:30 02/15/18 16:00 02/15/18 16:09 Temperature 99 F Pulse Rate 68 76 Respiratory Rate 14 15 Blood Pressure 127/76 148/87 H Pulse Oximetry 100 98 100 02/15/18 16:10 02/15/18 16:30 02/15/18 19:00 Temperature 96 F L Pulse Rate 71 59 L 57 L Respiratory Rate 15 10 L Blood Pressure 127/74 118/66 Pulse Oximetry 100 100 02/15/18 20:27 02/15/18 23:00 02/16/18 00:00 Temperature 99.1 F Pulse Rate 80 66 66 Respiratory Rate 13 10 L Blood Pressure 121/69 Pulse Oximetry 100 99 02/16/18 03:00 02/16/18 04:00 02/16/18 04:14 Temperature 97.1 F L Pulse Rate 53 L 54 L 53 L Respiratory Rate 16 14 Blood Pressure 110/62 Pulse Oximetry 100 100 02/16/18 07:00 02/16/18 07:41 02/16/18 10:08 Temperature Pulse Rate 65 67 Respiratory Rate 12 17 Blood Pressure Pulse Oximetry 100 100 02/16/18 10:46 02/16/18 11:15 02/16/18 13:27 Temperature Pulse Rate 61 60 Respiratory Rate 14 15 Blood Pressure Pulse Oximetry 100 02/16/18 15:00 Temperature Pulse Rate 63 Respiratory Rate Blood Pressure Pulse Oximetry Intake & Output 02/15/18 02/16/18 02/16/18 18:59 06:59 18:59 Intake Total 2161.375 / 2161.375 586.95 / 586.95 250 / 250 Output Total 1400 / 1400 3300 / 3300 1800 / 1800 Balance 761.375 / 761.375 -2713.05 / -2713.05 -1550 / -1550 Weight 58 kg Intake: IV 2161.375 / 2161.375 586.95 / 586.95 250 / 250 Heparin/D5W 25,000 U/250 mL 25, 250 / 250 000 unit In 250 ml @ 800 UNITS/ HR 8 mls/hr IV.CONT TITRATE PRN Rx#:[id number] Versed Inj 50 mg In 50 ml @ 2 50 / 50 50 / 50 MG/HR 2 mls/hr IV.CONT TITRATE PRN Rx#:[id number] Primacor Inj 20 MG In NS Inj 80 100 / 100 100 / 100 ML @ Per Protocol IV.CONT .Q0M [facility] Rx#:[id number] Maxipime Inj 2,000 MG In NS Inj 200 / 200 100 / 100 100 ML @ 200 mls/hr IV.SIG Q12H [facility] Rx#:[id number] Gentamicin Inj 38 MG In NS Inj 101.375 / 101.375 100.95 / 100.95 100 ML @ 201.9 mls/hr IV.SIG Q12H [facility] Rx#:[id number] KCl 40 mEq Premix Inj 40 meq In 100 / 100 100 ml @ 25 mls/hr IV.SIG UNSCH PRN Rx#:[id number] Vancomycin Inj 1,500 MG In NS 1060 / 1060 Inj 500 ML @ 250 mls/hr IV.SIG Q24H [facility] Rx#:[id number] fentaNYL 10 mcg/mL Premix Drip 250 / 250 136 / 136 2,500 mcg In 250 ml @ 50 MCG/HR 5 mls/hr IV.SIG TITRATE PRN Rx #:[id number] Flagyl 500 MG Inj 100 ML @ 100 200 / 200 100 / 100 100 / 100 mls/hr IV.SIG Q8H [facility] Rx#: [id number] Output: Stool 100 / 100 500 / 500 Urine Amount (Catheter) 1000 / 1000 2800 / 2800 1800 / 1800 Indwelling Temp Sensing 1000 / 1000 2800 / 2800 1800 / 1800 Catheter Gastric Drainage 300 / 300 0 / 0 Oral 300 / 300 0 / 0 Other: Date of Last Bowel Movement 02/14/18 02/16/18 02/16/18 Physical Exam: CONSTITUTIONAL/GENERAL: frail and cachectic male TUBES/LINES/DRAINS: roberson, ET tube, OGT, Left IJ, right arterial line, rectal bag SKIN: Sallow. No jaundice, rashes, or lesions. No wounds seen anteriorly. Not diaphoretic. HEAD: Atraumatic. Normocephalic. + temporal wasting EYES: pupils constricted. eyes glassy. No scleral icterus. No injection or drainage. Fundi not examined. ENT: Nose without bleeding or purulent drainage. Throat exam inhibited by presence ET tube CARDIOVASCULAR: RRR without murmurs, gallops, or rubs. + click. + bounding radial pulses RESPIRATORY/CHEST: Symmetric, unlabored respirations. CTA. Breath sounds equal bilaterally. No wheezes, rales, or rhonchi. diminished bases. GASTROINTESTINAL: Abdomen soft, nondistended. No hepato-splenomegaly, or palpable masses. Bowel sounds present. +rectal bag with liquid blackish green stool GENITOURINARY: Without palpable bladder distension. Roberson catheter in place. MUSCULOSKELETAL: Trace BUE edema. Extremities without clubbing, cyanosis. No mottling or clubbing. +left foot drop NEUROLOGICAL: sedated on vent, unresponsive Diagnostic Tests Laboratory: Laboratory Results - last 72 hr 02/13/18 02/13/18 02/13/18 16:56 21:00 23:49 WBC RBC Hgb Hct MCV MCH MCHC RDW Plt Count MPV Prelim Diff (Auto) Neut % (Auto) Lymph % (Auto) Mellette % (Auto) Eos % (Auto) Baso % (Auto) Neut # (Auto) Lymph # (Auto) Mellette # (Auto) Eos # (Auto) Baso # (Auto) WBC Differential Seg Neuts % (Manual) Band Neuts % (Manual) Lymphocytes % (Manual) Monocytes % (Manual) Metamyelocytes % (Man) Myelocytes % (Man) Promyelocytes % (Man) Abs Neuts (Manual) Differential Comment Platelet Estimate Platelet Morphology Ovalocytes Keratocytes APTT Puncture Site Patient Temperature O2 Saturation ABG pH ABG pCO2 ABG pO2 ABG HCO3 ABG O2 Content ABG Base Excess ABG Methemoglobin Hemoglobin Carboxyhemoglobin O2 Delivery Device Vent Setting Inspired O2 Critical Value Sodium Potassium Chloride Carbon Dioxide Anion Gap BUN Creatinine Estimated GFR POC Glucose 133 H 152 H Random Glucose Calcium Phosphorus Magnesium Total Bilirubin AST ALT Alkaline Phosphatase Total Protein Albumin Nasal Screen MRSA (PCR) Not detected Gentamicin Peak Gentamicin Trough Random Vancomycin Digoxin 02/14/18 02/14/18 02/14/18 05:13 05:17 05:17 WBC 5.9 RBC 2.81 L Hgb 8.5 L Hct 25.7 L MCV 91.5 MCH 30.1 MCHC 32.9 RDW 16.8 Plt Count 261 MPV 9.0 Prelim Diff (Auto) Slide review pending Neut % (Auto) 89.5 H Lymph % (Auto) 5.0 L Mellette % (Auto) 5.4 Eos % (Auto) 0.0 Baso % (Auto) 0.1 Neut # (Auto) 5.3 Lymph # (Auto) 0.3 L Mellette # (Auto) 0.3 Eos # (Auto) 0.0 Baso # (Auto) 0.0 WBC Differential Manual diff final Seg Neuts % (Manual) 86 H Band Neuts % (Manual) 1 Lymphocytes % (Manual) 8 L Monocytes % (Manual) 4 Metamyelocytes % (Man) 1 Myelocytes % (Man) Promyelocytes % (Man) Abs Neuts (Manual) 5.2 Differential Comment . Platelet Estimate Normal Platelet Morphology Normal Ovalocytes Keratocytes APTT 70.3 H Puncture Site Patient Temperature O2 Saturation ABG pH ABG pCO2 ABG pO2 ABG HCO3 ABG O2 Content ABG Base Excess ABG Methemoglobin Hemoglobin Carboxyhemoglobin O2 Delivery Device Vent Setting Inspired O2 Critical Value Sodium Potassium Chloride Carbon Dioxide Anion Gap BUN Creatinine Estimated GFR POC Glucose 156 H Random Glucose Calcium Phosphorus Magnesium Total Bilirubin AST ALT Alkaline Phosphatase Total Protein Albumin Nasal Screen MRSA (PCR) Gentamicin Peak Gentamicin Trough Random Vancomycin Digoxin 02/14/18 02/14/18 02/14/18 05:17 09:20 13:33 WBC RBC Hgb Hct MCV MCH MCHC RDW Plt Count MPV Prelim Diff (Auto) Neut % (Auto) Lymph % (Auto) Mellette % (Auto) Eos % (Auto) Baso % (Auto) Neut # (Auto) Lymph # (Auto) Mellette # (Auto) Eos # (Auto) Baso # (Auto) WBC Differential Seg Neuts % (Manual) Band Neuts % (Manual) Lymphocytes % (Manual) Monocytes % (Manual) Metamyelocytes % (Man) Myelocytes % (Man) Promyelocytes % (Man) Abs Neuts (Manual) Differential Comment Platelet Estimate Platelet Morphology Ovalocytes Keratocytes APTT Puncture Site Art line Patient Temperature 98.6 O2 Saturation 93 ABG pH 7.44 H ABG pCO2 36 L ABG pO2 75 ABG HCO3 24 ABG O2 Content 12.8 ABG Base Excess 0.2 ABG Methemoglobin 1.2 Hemoglobin 9.7 L Carboxyhemoglobin 0.9 O2 Delivery Device Ventilator Vent Setting Prvc 10/400/1.0/+5 Inspired O2 45 Critical Value No Sodium 146 H Potassium 3.2 L Chloride 112 H Carbon Dioxide 25.8 Anion Gap 8 BUN 48 H Creatinine 1.23 Estimated GFR 59 L POC Glucose 161 H Random Glucose 141 H Calcium 8.6 Phosphorus 2.7 Magnesium 2.2 Total Bilirubin 0.4 AST 25 ALT 33 Alkaline Phosphatase 56 Total Protein 6.7 Albumin 3.1 L Nasal Screen MRSA (PCR) Gentamicin Peak Gentamicin Trough Random Vancomycin 15.3 Digoxin 02/14/18 02/14/18 02/14/18 15:30 17:10 23:35 WBC RBC Hgb Hct MCV MCH MCHC RDW Plt Count MPV Prelim Diff (Auto) Neut % (Auto) Lymph % (Auto) Mellette % (Auto) Eos % (Auto) Baso % (Auto) Neut # (Auto) Lymph # (Auto) Mellette # (Auto) Eos # (Auto) Baso # (Auto) WBC Differential Seg Neuts % (Manual) Band Neuts % (Manual) Lymphocytes % (Manual) Monocytes % (Manual) Metamyelocytes % (Man) Myelocytes % (Man) Promyelocytes % (Man) Abs Neuts (Manual) Differential Comment Platelet Estimate Platelet Morphology Ovalocytes Keratocytes APTT Puncture Site Patient Temperature O2 Saturation ABG pH ABG pCO2 ABG pO2 ABG HCO3 ABG O2 Content ABG Base Excess ABG Methemoglobin Hemoglobin Carboxyhemoglobin O2 Delivery Device Vent Setting Inspired O2 Critical Value Sodium Potassium Chloride Carbon Dioxide Anion Gap BUN Creatinine Estimated GFR POC Glucose 138 H 200 H Random Glucose Calcium Phosphorus Magnesium Total Bilirubin AST ALT Alkaline Phosphatase Total Protein Albumin Nasal Screen MRSA (PCR) Gentamicin Peak Gentamicin Trough 4.2 H Random Vancomycin Digoxin 02/15/18 02/15/18 02/15/18 01:00 04:30 04:30 WBC 6.5 RBC 2.85 L Hgb 8.7 L Hct 26.2 L MCV 92.1 MCH 30.7 MCHC 33.3 RDW 17.1 Plt Count 267 MPV 8.9 Prelim Diff (Auto) Slide review pending Neut % (Auto) 88.7 H Lymph % (Auto) 4.3 L Mellette % (Auto) 7.0 Eos % (Auto) 0.0 Baso % (Auto) 0.0 Neut # (Auto) 5.7 Lymph # (Auto) 0.3 L Mellette # (Auto) 0.5 Eos # (Auto) 0.0 Baso # (Auto) 0.0 WBC Differential Manual diff final Seg Neuts % (Manual) 80 H Band Neuts % (Manual) Lymphocytes % (Manual) 10 Monocytes % (Manual) 7 Metamyelocytes % (Man) 1 Myelocytes % (Man) 1 H Promyelocytes % (Man) 1 H Abs Neuts (Manual) 5.4 Differential Comment . Platelet Estimate Normal Platelet Morphology Normal Ovalocytes 1+ H Keratocytes Occ H APTT Puncture Site Patient Temperature O2 Saturation ABG pH ABG pCO2 ABG pO2 ABG HCO3 ABG O2 Content ABG Base Excess ABG Methemoglobin Hemoglobin Carboxyhemoglobin O2 Delivery Device Vent Setting Inspired O2 Critical Value Sodium 149 H Potassium 3.2 L 3.3 L Chloride 114 H Carbon Dioxide 28.3 Anion Gap 7 BUN 47 H Creatinine 1.28 Estimated GFR 57 L POC Glucose Random Glucose 175 H Calcium 8.5 Phosphorus 2.5 Magnesium 2.0 Total Bilirubin 0.5 AST 23 ALT 16 Alkaline Phosphatase 56 Total Protein 6.6 Albumin 3.2 L Nasal Screen MRSA (PCR) Gentamicin Peak Gentamicin Trough Random Vancomycin Digoxin 0.9 02/15/18 02/15/18 02/15/18 13:30 15:36 20:30 WBC RBC Hgb Hct MCV MCH MCHC RDW Plt Count MPV Prelim Diff (Auto) Neut % (Auto) Lymph % (Auto) Mellette % (Auto) Eos % (Auto) Baso % (Auto) Neut # (Auto) Lymph # (Auto) Mellette # (Auto) Eos # (Auto) Baso # (Auto) WBC Differential Seg Neuts % (Manual) Band Neuts % (Manual) Lymphocytes % (Manual) Monocytes % (Manual) Metamyelocytes % (Man) Myelocytes % (Man) Promyelocytes % (Man) Abs Neuts (Manual) Differential Comment Platelet Estimate Platelet Morphology Ovalocytes Keratocytes APTT Puncture Site Patient Temperature O2 Saturation ABG pH ABG pCO2 ABG pO2 ABG HCO3 ABG O2 Content ABG Base Excess ABG Methemoglobin Hemoglobin Carboxyhemoglobin O2 Delivery Device Vent Setting Inspired O2 Critical Value Sodium Potassium 3.5 Chloride Carbon Dioxide Anion Gap BUN Creatinine Estimated GFR POC Glucose Random Glucose Calcium Phosphorus Magnesium Total Bilirubin AST ALT Alkaline Phosphatase Total Protein Albumin Nasal Screen MRSA (PCR) Gentamicin Peak 5.2 Gentamicin Trough 1.7 Random Vancomycin Digoxin 02/15/18 02/16/18 02/16/18 23:18 03:48 03:48 WBC 12.6 H D RBC 2.83 L Hgb 8.7 L Hct 26.2 L MCV 92.6 MCH 30.7 MCHC 33.1 RDW 17.2 Plt Count 260 MPV 8.9 Prelim Diff (Auto) Neut % (Auto) 90.3 H Lymph % (Auto) 3.2 L Mellette % (Auto) 6.5 Eos % (Auto) 0.0 Baso % (Auto) 0.0 Neut # (Auto) 11.4 H Lymph # (Auto) 0.4 L Mellette # (Auto) 0.8 Eos # (Auto) 0.0 Baso # (Auto) 0.0 WBC Differential . Seg Neuts % (Manual) Band Neuts % (Manual) Lymphocytes % (Manual) Monocytes % (Manual) Metamyelocytes % (Man) Myelocytes % (Man) Promyelocytes % (Man) Abs Neuts (Manual) Differential Comment Auto diff final Platelet Estimate Platelet Morphology Ovalocytes Keratocytes APTT Puncture Site Patient Temperature O2 Saturation ABG pH ABG pCO2 ABG pO2 ABG HCO3 ABG O2 Content ABG Base Excess ABG Methemoglobin Hemoglobin Carboxyhemoglobin O2 Delivery Device Vent Setting Inspired O2 Critical Value Sodium 151 H Potassium 3.7 Chloride 114 H Carbon Dioxide 30.5 Anion Gap 7 BUN 43 H Creatinine 1.15 Estimated GFR 64 L POC Glucose 138 H Random Glucose 138 H Calcium 8.6 Phosphorus 2.9 Magnesium 2.0 Total Bilirubin 0.6 AST 27 ALT 16 Alkaline Phosphatase 55 Total Protein 6.6 Albumin 3.1 L Nasal Screen MRSA (PCR) Gentamicin Peak Gentamicin Trough Random Vancomycin Digoxin 02/16/18 02/16/18 02/16/18 03:48 04:48 05:24 WBC RBC Hgb Hct MCV MCH MCHC RDW Plt Count MPV Prelim Diff (Auto) Neut % (Auto) Lymph % (Auto) Mellette % (Auto) Eos % (Auto) Baso % (Auto) Neut # (Auto) Lymph # (Auto) Mellette # (Auto) Eos # (Auto) Baso # (Auto) WBC Differential Seg Neuts % (Manual) Band Neuts % (Manual) Lymphocytes % (Manual) Monocytes % (Manual) Metamyelocytes % (Man) Myelocytes % (Man) Promyelocytes % (Man) Abs Neuts (Manual) Differential Comment Platelet Estimate Platelet Morphology Ovalocytes Keratocytes APTT 105.2 H* D 104.6 H* Puncture Site Patient Temperature O2 Saturation ABG pH ABG pCO2 ABG pO2 ABG HCO3 ABG O2 Content ABG Base Excess ABG Methemoglobin Hemoglobin Carboxyhemoglobin O2 Delivery Device Vent Setting Inspired O2 Critical Value Sodium Potassium Chloride Carbon Dioxide Anion Gap BUN Creatinine Estimated GFR POC Glucose 139 H Random Glucose Calcium Phosphorus Magnesium Total Bilirubin AST ALT Alkaline Phosphatase Total Protein Albumin Nasal Screen MRSA (PCR) Gentamicin Peak Gentamicin Trough Random Vancomycin Digoxin 02/16/18 02/16/18 02/16/18 05:45 11:54 12:20 WBC RBC Hgb Hct MCV MCH MCHC RDW Plt Count MPV Prelim Diff (Auto) Neut % (Auto) Lymph % (Auto) Mellette % (Auto) Eos % (Auto) Baso % (Auto) Neut # (Auto) Lymph # (Auto) Mellette # (Auto) Eos # (Auto) Baso # (Auto) WBC Differential Seg Neuts % (Manual) Band Neuts % (Manual) Lymphocytes % (Manual) Monocytes % (Manual) Metamyelocytes % (Man) Myelocytes % (Man) Promyelocytes % (Man) Abs Neuts (Manual) Differential Comment Platelet Estimate Platelet Morphology Ovalocytes Keratocytes APTT 59.0 H D 41.1 H D Puncture Site Patient Temperature O2 Saturation ABG pH ABG pCO2 ABG pO2 ABG HCO3 ABG O2 Content ABG Base Excess ABG Methemoglobin Hemoglobin Carboxyhemoglobin O2 Delivery Device Vent Setting Inspired O2 Critical Value Sodium Potassium Chloride Carbon Dioxide Anion Gap BUN Creatinine Estimated GFR POC Glucose 125 H Random Glucose Calcium Phosphorus Magnesium Total Bilirubin AST ALT Alkaline Phosphatase Total Protein Albumin Nasal Screen MRSA (PCR) Gentamicin Peak Gentamicin Trough Random Vancomycin Digoxin Result Diagrams: 02/16/18 03:48 02/16/18 03:48 Microbiology: Microbiology 02/11/18 03:54 Aerobic Blood Culture - Final Blood - Peripheral No growth in 5 days Anaerobic Blood Culture - Final No growth in 5 days 02/11/18 03:49 Aerobic Blood Culture - Final Blood - Peripheral No growth in 5 days Anaerobic Blood Culture - Final No growth in 5 days 02/14/18 16:00 Gram Stain - Final Sputum - Tracheal Aspirate Sputum Culture - Preliminary gram negative rods 02/11/18 03:40 Gram Stain - Final Sputum - Endotracheal Sputum Culture - Final Pseudomonas aeruginosa Klebsiella pneumoniae Imaging: ITS Impressions Abdomen/Bladder Ultrasound 02/05/18 00:00 CONCLUSION: 1. No evidence of hydronephrosis. 2. The echogenicity of the kidneys is equal to that of the liver which can be seen with medical renal disease. 3. Simple cyst in right kidney. 4. Suboptimal visualization of the left kidney. 5. Small amount of free fluid along the spleen. This could represent an adjacent pleural effusion. Chest X-Ray 02/15/18 06:00 CONCLUSION: Hazy opacity is now noted in the perihilar regions and both lung bases as well as a small left effusion. The findings are most characteristic of congestive heart failure. Head CT 02/15/18 12:23 CONCLUSION: 1. Negative CT Head non contrast. . Head MRI 02/16/18 08:28 CONCLUSION: 1. New focus of restricted diffusion high along the right cerebral vertex measuring 8 mm consistent with a new small focal acute infarction. 2. There is a new 5 mm area restricted diffusion high along the left cerebral vertex consistent with a new small focal acute infarction. 3. 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 This area is stable compared to the prior examination. 4. Stable bilateral cortical atrophy and mild chronic white matter changes. 5. Chronic bilateral mastoiditis. Procedures: 02/05 left IJ placement 02/05 retrograde left heart cath, stent placement, IABP placement 02/05 intubated Assessment and Plan - Disease Oriented Problem List (1) Cardiogenic shock (2) Ventricular fibrillation (3) Hypokalemia (4) CAD (coronary artery disease) Pertinent Non-Medical Issues: Psychosocial: On disability. 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 Spiritual: Zoroastrianism, non-judaism. Propulsion Generator Repairer has visited, they also have latter-day fiber picker visiting. Legal: Pt not capacitated to make medical decisions. Unclear if he will regain capacity. Per [place] statutes decision making would fall to as proxy. Ethical issues impacting care: none identified Important Contacts: Maria Isabel Tolentino [phone] sister Yvonne Valdivia [phone] Prognosis: 62 yo male s/p aortic valve replacement 2012 who suffered significant NSTEMI, EF <20% on presentation, troponins up to 32. Echo also showed global hypokinesis. Not clear how much of heart failure was present prior to NSTEMI. s /p heart cath, LAD stenting complicated by vasospasm, placement and subsequent removal of IABP. 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 He has had several runs of v fib and v tach requiring chest compressions, shocks. He has underlying COPD and was having activity intolerance prior to this event. His prognosis for recovery is poor; chances of returning to baseline quite poor. He is at serious risk for continued complications including but not limited to recurrent arrhythmias, multi-organ injury; and at risk for further decline. Code Status: Full Code Plan: - LEGAL DECISON MAKER - Pt not capacitated to make medical decisions. Per [place] statutes decision making would fall to as proxy. Family working together to make decisions - , wifes RN sister, and pt's sister. - CODE STATUS- full code - GOALS - Goals aggressive thus far. Pt's says she is going to pray before making trach and PEG decision, says she spoke with youth ministry director who said he would "wait as long as he could." She feels that pt is "exactly where he is supposed to be" and she knows "this will be a long recovery" but has "jimmie he will come home." - Per CCM will need trach/PEG decision by Monday 02/19 - SYMPTOMS - * dyspnea - multifactorial - hx COPD, EF < 20%, class 4 heart failure. CXR 02/15 indicates CHF. Failing CPAP trials 2/2 agitation. FiO2 45%. now on 4ml versed. Has PRN duonebs, scheduled duonebs, bumex 1mg BID, fentanyl 20ml/hr. * pain - multifactorial, lines, ET tube, catheters, hx chronic back pain 2/2 "chronic fractures." sees pain mgmt, been on hydrocodone , reportedly same dosage and frequency for 6 years. Also on duloxetine at home, now held. currently on fentanyl gtt 10ml/hr. * debility/weakness - multifactorial. poor neuro exams on sedation vacation, partly d/t sepsis. neg head CT. +left foot drop. unresponsive. neurology consult pending. - eforsce verified - d/w MIKEY Junior, d/w Dr Cordova - Palliative care will continue to follow during hospital course as condition evolves, to assist patient/decision-maker with understanding of medical conditions, weighing benefits/burdens of treatment options, for clarification of goals of treatment. Additionally will assist with any symptoms of palliative concern Attestation Attestation: To help prompt me to consider important information that might be impacting today's encounter and assessment, information from prior notes written by myself or my colleagues may have been "brought forward" into today's note. My signature on this note, however, is an attestation that I personally performed the exam, history, and/or decision-making noted today, and, unless otherwise indicated, the interactions with patient, family, and staff as well as the review of records all occurred today. I also attest that the listed assessment and stated plan reflect my best clinical judgment today based on the combination of historical information, prior notes, and today's exam/ interactions. When time spent is documented, it refers only to time spent today by the signer, or if indicated, combined time spent today by collaborating physician/nurse practitioner.
[2018-02-17] MEDS: SODIUM CHLOR 0.9% IV.SIG SCH ×2 (02:49→14:35)
[2018-02-17] MEDS: GENTAMICIN IV.SIG SCH ×2 (02:49→14:35)
[2018-02-17] MEDS: Heparin Drip 25,000 UNIT/250 ML BAG IV.CONT PRN ×2 (03:15→09:43)
[2018-02-17] MEDS: Chlorhexidine Gluconate 2% 1 Pack (2 Cloths) TOPICAL SCH (03:29)
[2018-02-17] MEDS: Oral Hygiene Kit OROPHARYNG SCH ×4 (03:30→23:11)
[2018-02-17 03:59] LABS: Baso % (Auto) 0.1 % (0.0-2.0); Hematocrit 28.4 % (39.0-51.0); Hemoglobin 9.2 gm/dL (13.0-17.0); Lymph # (Auto) 0.3 th/mm3 (1.0-4.8); Lymph % (Auto) 1.7 % (9.0-44.0); Mean Corpuscular HGB Conc 32.6 % (32.0-36.0); Mean Corpuscular Hemoglobin 30.2 pg (27.0-34.0); Mean Corpuscular Volume 92.7 fL (80.0-100.0); Mono # (Auto) 0.7 th/mm3 (0.0-0.9); Mono % (Auto) 4.1 % (0.0-8.0); Neut # (Auto) 16.4 th/mm3 (1.8-7.7); Neut % (Auto) 94.1 % (16.0-70.0); Platelet Count 245 th/mm3 (150-450); Red Blood Count 3.06 mil/mm3 (4.50-5.90); Red Cell Distribution Width 17.5 % (11.6-17.2); White Blood Count 17.4 th/mm3 (4.0-11.0)
[2018-02-17] MEDS ORDERED: Pharmacy Ordered Lab Info OTHER ONE ×3 (04:00→14:45)
[2018-02-17 04:12] LABS: Calcium 8.7 mg/dL (8.5-10.1); Potassium 3.7 meq/L (3.5-5.1)
[2018-02-17 04:13] LABS: Gentamicin,Peak 3.5 mcg/mL (4.0-8.0)
[2018-02-17] MEDS: Insulin NovoLOG Aspart Correctional Sugar Inj SQ SCH ×4 (06:03→23:58)
[2018-02-17] MEDS: fentaNYL 10 mcg/mL Premix Drip 2,500 MCG/250 ML BAG IV.SIG PRN ×2 (06:40→22:04)
--- NOTE | 2018-02-17 07:26 | P.PNCC ---
Subjective Subjective Remarks/Hospital Course: 62-year-old male with past medical history of [place] mechanical aortic valve (09/21/12 Dr. Gonzalez), on chronic anticoagulation with warfarin, atrial fibrillation postop from AVR , COPD on 2.5 L home O2, stroke in 2015 resulting in left-sided sensory deficits and neuropathy, osteoporosis with chronic low back pain. He was recently admitted to [facility] from 01/23 through 01/31/18 for MSSA bacteremia. It is believed that the original source of infection was a wound on his right index finger when electric drill slipped and created a puncture wound. He was discharged with right upper extremity PICC line receiving cefazolin 2 g IV every 8 hours and gentamicin 210 mg IV daily. He states that home health administered antibiotics at 17:00 and shortly thereafter he began having chills and rigors and sought medical attention at [facility]. He had no rash. Upon arrival, he was hypotensive in the low 80s. He was given 2 L S bolus but remained hypotensive so was started on Levophed. He then developed heart rate in the 140s, reportedly atrial flutter so he was started on Amiodarone drip in [place] and converted to sinus rhythm. He was transfused 2 units PRBC due to Hgb 9.3. His stool was nonbloody nonmelena but was Hemoccult positive. He was given zosyn and vancomycin. Critical care medicine was then contacted and accepted patient for transfer to [facility]. He denies tenderness/redness/drainage at PICC site. Aside from mechanical aortic valve, he has no other hardware or indwelling devices. He denies headache, cough, dysuria. He has had a few loose stools at home, but stools have sometimes been formed. He denies chest pain, does report some SOB. EKG at [place] had marked inferolateral ischemic changes. Obtained EKG upon arrival to [facility] which is improved. SUBJ 02/05: Patient remains critical ill appearing, complaints of chest tightness but denies pain. Remains on 8 mcg/min of Levophed to maintain map about 65. However increasing shortness of breath. Chest x-ray shows increasing pulmonary edema. Troponin was 27.5 currently on IV heparin therapeutic. Cardiology consult is pending at this time. I will stop on maintenance fluids give 40 mg IV Lasix and IV albumin 25 g 1. Patient is very critical patient and updated at the bedside 02/06: to lab director last night for [facility] with LAD stent complicated by vasospasm of the LAD. IABP placed. patient emergently intubated for acute hypoxic respiratory failure secondary to cardiogenic shock and pulmonary edema. started on milrinone at 0.375 mcg/kg/min and levophed. bumex drip started. remains critically ill. 02/07: Remains critically ill remains on Levophed and milrinone. Currently diuresing well with Bumex drip. IABP in place management per cardiology-good waveform and augmentation. Chest x-ray shows adequate positioning of IABP, diffuse bilateral pulmonary edema 02/08: Remains critical but showing some signs of improvement. Diuresing very well on Bumex infusion. Remains on Levophed and milrinone. IABP one-to-one with good augmentation management per cardiology. Chest x-ray shows improving edema but with persistent bilateral effusions. Will initiate weaning trials if tolerated 02/09: Still remains on pressors, unable to wean Levophed below 2 mcg/min. Milrinone currently on 0.375 mcg/kg/min. IABP removed yesterday. On sedation hold patient wakes up but remains lethargic. Weakly squeezes hand. Urine output excellent on Bumex, 4 L output in 24 hours. Will attempt CPAP today 02/10: Multiple episodes of V. fib V. tach arrest yesterday morning. Successfully resuscitated. Yesterday night had two-minute V. fib arrest return of spontaneous circulation in sinus rhythm after DC cardioversion 1. Currently remains on milrinone and low-dose Levophed. I will try to wean off Levophed introduce low-dose beta-rasheed due to recurrent arrhythmia. Keep potassium more than 4 magnesium more than 2 02/11: Patient still critical and cardiogenic shock requiring Levophed and milrinone. Urine output improved with adding Diamox. Approximately 2 L urine output in 24 hours, creatinine remained stable. Oxygenation slightly improved FiO2 reduced to 70% now. Overall prognosis remains poor family wants to continue aggressive care 02/12: Remains critical but slight improvement in oxygenation. But continues to require Levophed and milrinone the low-dose. Urine output remains adequate. Chest x-ray shows interval improvement. Creatinine remains stable to slightly improved. Add IV albumin to improve blood pressure and to promote diuresis. 02/13 Patient remains intubated and sedated with Versed and fentanyl. Afebrile, off Levophed remains on Milrinone and Heparin drip. SUBJECTIVE: 02/14: Hypothermic overnight. Remains on milrinone and heparin drips. Tolerating tube feeds at 20 cc now. Positive BM. No changes neurologically 02/15 Patient remains sedated with Versed and Fentanyl drips, on Milrinone 0.5. 02/16 Patient remains intubated sedated with Versed and Fentanyl infusion. On Milrinone and Heparin drips. CT brain yesterday showed no acute findings. Afebrile. 02/17 Patient remains sedated and intubated. Afebrile, On Milrinone and Heparin drip. Objective Vital Signs / I&O: Vital Signs 02/16/18 07:41 02/16/18 08:00 02/16/18 08:30 Temperature Pulse Rate 67 67 62 Respiratory Rate 12 17 17 Blood Pressure 103/62 109/65 Pulse Oximetry 100 100 100 02/16/18 09:00 02/16/18 09:30 02/16/18 10:00 Temperature Pulse Rate 61 60 60 Respiratory Rate Blood Pressure 114/70 124/71 124/72 Pulse Oximetry 100 100 100 02/16/18 10:08 02/16/18 10:14 02/16/18 10:46 Temperature Pulse Rate 67 61 Respiratory Rate 17 21 Blood Pressure 126/87 Pulse Oximetry 100 100 02/16/18 11:15 02/16/18 11:58 02/16/18 12:00 Temperature Pulse Rate 60 65 63 Respiratory Rate 14 17 12 Blood Pressure 100/60 100/59 L Pulse Oximetry 96 100 02/16/18 12:30 02/16/18 13:00 02/16/18 13:27 Temperature Pulse Rate 73 66 Respiratory Rate 15 Blood Pressure 96/55 L 98/55 L Pulse Oximetry 100 100 100 02/16/18 13:30 02/16/18 14:00 02/16/18 14:30 Temperature Pulse Rate 64 64 66 Respiratory Rate Blood Pressure 95/55 L 99/58 L 103/62 Pulse Oximetry 100 100 100 02/16/18 15:00 02/16/18 15:16 08/02/18 15:30 Temperature Pulse Rate 63 66 68 Respiratory Rate 12 21 Blood Pressure 106/62 113/67 Pulse Oximetry 100 96 02/16/18 16:00 02/16/18 16:30 02/16/18 17:00 Temperature Pulse Rate 74 74 99 H Respiratory Rate 14 17 20 Blood Pressure 113/69 118/67 119/71 Pulse Oximetry 97 97 93 L 02/16/18 17:11 02/16/18 17:30 02/16/18 18:00 Temperature Pulse Rate 87 86 Respiratory Rate 14 14 27 H Blood Pressure 104/63 86/56 L Pulse Oximetry 92 L 97 100 02/16/18 18:15 02/16/18 18:16 02/16/18 18:18 Temperature Pulse Rate 92 H 102 H 107 H Respiratory Rate 34 H 30 H 25 H Blood Pressure 80/51 L 85/54 L 88/55 L Pulse Oximetry 100 99 99 02/16/18 18:24 02/16/18 18:26 02/16/18 18:30 Temperature Pulse Rate 101 H 112 H 109 H Respiratory Rate 24 22 Blood Pressure 93/65 L 104/66 Pulse Oximetry 99 98 02/16/18 20:00 02/16/18 21:00 02/16/18 21:03 Temperature 99.5 F Pulse Rate 103 H 93 H 104 H Respiratory Rate 15 17 Blood Pressure 124/72 Pulse Oximetry 98 98 02/16/18 23:00 02/16/18 23:46 02/17/18 00:00 Temperature 98.9 F Pulse Rate 88 72 80 Respiratory Rate 14 16 Blood Pressure 100/61 Pulse Oximetry 97 98 02/17/18 03:00 02/17/18 03:21 02/17/18 04:00 Temperature 98.1 F Pulse Rate 66 73 79 Respiratory Rate 14 14 Blood Pressure 116/74 Pulse Oximetry 100 94 L Intake & Output 02/16/18 02/17/18 02/17/18 18:59 06:59 18:59 Intake Total 710.95 / 710.95 1370 / 1370 Output Total 1850 / 1850 1400 / 1400 Balance -1139.05 / -1139.05 -30 / -30 Weight 59 kg Intake: IV 686.95 / 686.95 750 / 750 Heparin/D5W 25,000 U/250 mL 25, 250 / 250 000 unit In 250 ml @ 800 UNITS/ HR 8 mls/hr IV.CONT TITRATE PRN Rx#:[id number] Versed Inj 50 mg In 50 ml @ 2 50 / 50 50 / 50 MG/HR 2 mls/hr IV.CONT TITRATE PRN Rx#:[id number] Primacor Inj 20 MG In NS Inj 80 100 / 100 100 / 100 ML @ Per Protocol IV.CONT .Q0M ADRIEN Rx#:[id number] Maxipime Inj 2,000 MG In NS Inj 100 / 100 100 ML @ 200 mls/hr IV.SIG Q12H [facility]RI[facility] Rx#:[id number] Gentamicin Inj 38 MG In NS Inj 100.95 / 100.95 100 ML @ 201.9 mls/hr IV.SIG Q12H [facility] Rx#:[id number] fentaNYL 10 mcg/mL Premix Drip 136 / 136 250 / 250 2,500 mcg In 250 ml @ 50 MCG/HR 5 mls/hr IV.SIG TITRATE PRN Rx #:[id number] Flagyl 500 MG Inj 100 ML @ 100 200 / 200 100 / 100 mls/hr IV.SIG Q8H [facility] Rx#: [id number] Tube Feeding 24 / 24 120 / 120 Water Bolus Amount 500 / 500 Output: Stool 50 / 50 Urine Amount (Catheter) 1800 / 1800 1400 / 1400 Indwelling Temp Sensing 1800 / 1800 1400 / 1400 Catheter Other: Date of Last Bowel Movement 02/16/18 02/16/18 Result Diagrams: 02/17/18 03:30 02/17/18 03:30 Other Results: Laboratory Results - last 12 hr 02/16/18 02/17/18 02/17/18 23:31 03:30 03:30 WBC RBC Hgb Hct MCV MCH MCHC RDW Plt Count MPV Neut % (Auto) Lymph % (Auto) Wharton % (Auto) Eos % (Auto) Baso % (Auto) Neut # (Auto) Lymph # (Auto) Wharton # (Auto) Eos # (Auto) Baso # (Auto) WBC Differential Differential Comment APTT 80.9 H D Sodium 148 H Potassium 3.7 Chloride 110 H Carbon Dioxide 31.0 Anion Gap 7 BUN 40 H Creatinine 1.22 Estimated GFR 60 L POC Glucose 165 H Random Glucose 152 H Calcium 8.7 Gentamicin Peak 3.5 L 02/17/18 02/17/18 03:30 05:18 WBC 17.4 H RBC 3.06 L Hgb 9.2 L Hct 28.4 L MCV 92.7 MCH 30.2 MCHC 32.6 RDW 17.5 H Plt Count 245 MPV 9.0 Neut % (Auto) 94.1 H Lymph % (Auto) 1.7 L Wharton % (Auto) 4.1 Eos % (Auto) 0.0 Baso % (Auto) 0.1 Neut # (Auto) 16.4 H Lymph # (Auto) 0.3 L Wharton # (Auto) 0.7 Eos # (Auto) 0.0 Baso # (Auto) 0.0 WBC Differential . Differential Comment Auto diff final APTT Sodium Potassium Chloride Carbon Dioxide Anion Gap BUN Creatinine Estimated GFR POC Glucose 169 H Random Glucose Calcium Gentamicin Peak Imaging: Abdomen/Bladder Ultrasound 02/05/18 00:00 CONCLUSION: 1. No evidence of hydronephrosis. 2. The echogenicity of the kidneys is equal to that of the liver which can be seen with medical renal disease. 3. Simple cyst in right kidney. 4. Suboptimal visualization of the left kidney. 5. Small amount of free fluid along the spleen. This could represent an adjacent pleural effusion. Chest X-Ray 02/15/18 06:00 CONCLUSION: Hazy opacity is now noted in the perihilar regions and both lung bases as well as a small left effusion. The findings are most characteristic of congestive heart failure. Head CT 02/15/18 12:23 CONCLUSION: 1. Negative CT Head non contrast. . Head MRI 02/16/18 08:28 CONCLUSION: 1. New focus of restricted diffusion high along the right cerebral vertex measuring 8 mm consistent with a new small focal acute infarction. 2. There is a new 5 mm area restricted diffusion high along the left cerebral vertex consistent with a new small focal acute infarction. 3. 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 This area is stable compared to the prior examination. 4. Stable bilateral cortical atrophy and mild chronic white matter changes. 5. Chronic bilateral mastoiditis. Objective Remarks: GENERAL: 62-year-old male currently orotracheally intubated SKIN: cool and poorly perfused. No rash or skin breakdown HEAD: Atraumatic. Normocephalic. EYES: Pupils equal and round, 2 mm and reactive. No scleral icterus. No injection or drainage. ENT: No nasal bleeding or discharge. Orotracheally intubated NECK: Trachea midline. + JVD. left IJ TLC clean dry and dressing intact. CARDIOVASCULAR: RRR. S1, S2. No S4. No murmurs rubs or gallops. RESPIRATORY: Bilateral coarse rhonchi and and rales, at bases improved GASTROINTESTINAL: Abdomen soft, non-tender, nondistended. no guarding. VASC: Right radial art line in place with distal perfusion intact. right femoral IABP removed. no evidence of hematoma. distal pulses dopplerable. MUSCULOSKELETAL: Extremities with trace bilateral lower extremity edema NEUROLOGICAL: Sedated, intubated, doesn't follow commands off sedation Assessment and Plan - Assessment and Plan Plan: NEURO/PSYCH: History of stroke in 2015 Neuropathy left upper and lower extremity Chronic low back pain On Fentanyl drip at 150 micrograms per hour and midazolam drip at 4 mg an hour for sedation/analgesia while intubated Goal of RA SS -2 Daily sedation vacation Monitor neuro status 02/15 CT brain: No acute findings 02/15 EEG : Encephalopathy, no epileptiform activity MRI brain 02/16 New focus of restricted diffusion high along the right cerebral vertex measuring 8 mm consistent with a new small focal acute infarction. There is a new 5 mm area restricted diffusion high along the left cerebral vertex consistent with a new small focal acute infarction Neuro consulted. Continue ASA. Continue pregabalin 150 mg p.o. twice daily. Hold duloxetine 90 mg p.o. daily. RESP: Acute hypoxic respiratory failure COPD on 2.5 L home O2 Prior tobacco abuse Continue with vent support keep sats >92% On PRVC RR 10, TV 400, IT: 1.0, PEEP:5 FIO2: 45%. Albuterol/ipratropium aerosols every 4 hours with albuterol aerosols every 2 hours as needed for dyspnea SBT daily as garrett vent bundle, hob elevated. methylprednisolone succinate 40mg IV Q12 CV: V. tach/V. fib arrest NSTEMI Cardiogenic shock Acute systolic heart failure Atrial fibrillation with RVR [place] mechanical aortic valve (09/21/12 Dr. Gonzalez) s/p Tricuspid annuloplasty Wean off milrinone infusion 0.5 mcg/kg/min Monitor HR and BP keep MAP>65mmHg s/p cath And PCI -proximal LAD and large diagonal 90% stenosis, 2 BMS stent 02/05, mid LAD vasospasm post PCI Continue aspirin 81 mg daily, clopidogrel 75 mg daily, amiodarone 400mg TID, carvedilol 3.125mg BID, Bumetanide 1mg IV BID and Spironolactone 50 mg twice daily heparin drip currently at 800 units an hour. PTT therapeutic. Continue atorvastatin 40 mg nightly. Off IABP 02/08/18 [place] 01/23/18no vegetation. Normal aortic mechanical valve with trivial aortic insufficiency. Tricuspid annuloplasty. Mild to moderate LV generalized hypokinesis Echo from 02/05: EF <20%, diffuse hypokinesis, bioprosthetic valve [employer] Host is Romana Bartlett GI: Continue tube feeds- On Jevity 1.5 advance to goal rate Lansoprazole for stress ulcer prophylactic Had normal EGD on 10/21/17 FEN/RENAL: BPH Acute kidney injury-improving Cano due to aggressive diuresis. 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 difficile colitis PICC removed Continue IV vancomycin, IV gentamicin and IV cefepime C.diff tx: po vanco + IV flagyl 02/11/18 Infectious disease following 02/14 Sputum: GNR 02/11 Sputum cx: Pseudomonas, Kleb pneumonia BC 02/11, 02/06: NGTD HEME: Chronic anemia Iron deficiency Continue ferrous sulfate 300 milligrams liquid daily. Received 2 units packed red cells in [place] ER due to anemia and shock. Monitor CBC ENDO: SSI to maintain euglycemia PROPH: Heparin drip. Protonix for stress ulcer prophylaxis ACCESS: Right radial art line placed in the emergency department 02/04. Left IJ central line placed 02/05/18. Removed right upper extremity PICC. Palliative care is following CCT 30 minutes exclusive of separately billable procedures.`
[2018-02-17] MEDS: Potassium Chloride 10 MEQ ER Capsule G-TUBE SCH ×2 (09:11→21:05)
[2018-02-17] MEDS: Senna/Docusate Sodium 8.6/50 MG Tablet PO SCH ×2 (09:11→21:06)
[2018-02-17] MEDS: Ferrrous Sulfate 300 MG/5 ML UDC PO SCH (09:12)
[2018-02-17] MEDS: Pregabalin 75 MG Capsule PO SCH ×2 (09:12→21:06)
[2018-02-17] MEDS: Ascorbic Acid 500 MG Tablet NG/OG SCH (09:12)
[2018-02-17] MEDS: Amiodarone 200 MG Tablet G-TUBE SCH ×2 (09:12→21:04)
[2018-02-17] MEDS: Beneprotein Powder Packet G-TUBE SCH ×3 (09:12→18:11)
[2018-02-17] MEDS: MethylPREDNISolone Sod Succinate Inj 40 MG/ML Vial IV.PUSH SCH ×2 (09:13→21:04)
[2018-02-17] MEDS: Chlorhexidine 0.12% Oral Kit 15 ML UDC OROPHARYNG SCH ×2 (09:13→21:04)
[2018-02-17] MEDS: Hypromellose 0.3% Opth Gel 10 GM Bottle EACH EYE SCH ×2 (09:15→21:05)
[2018-02-17] MEDS: Spironolactone 50 MG Tablet PO SCH ×2 (09:19→18:11)
[2018-02-17] MEDS: Milrinone Inj 20 MG in Sodium Chlor 0.9% Inj 80 ML IV.CONT SCH ×2 (10:11→19:49)
[2018-02-17] MEDS: Midazolam 50 MG/50 ML Inj 50 MG/50 ML BAG IV.CONT PRN ×4 (10:12→22:03)
[2018-02-17] MEDS: Vancomycin Inj 1,500 MG in Sodium Chlor 0.9% Inj 500 ML IV.SIG SCH (12:55)
--- NOTE | 2018-02-17 13:18 | P.PNPAL ---
Reason for Visit Reason for visit: a. To assist with evaluation and management of symptoms including: pain, dyspnea, weakness b. To assist medical decision maker(s) with: better understanding of current medical conditions; weighing benefits/burdens of medical treatment options; making medical treatment decisions. Subjective Subjective/Interval History: Pt lying in bed, intubated on vent. Undergoing CPAP trial, tolerated < 45 minutes, just failed as he was apneic. Also appears restless/agitated but movements not purposeful and he does not follow commands. On milrinone. Versed was down to 4ml yesterday but back up today 2/2 restlessness. Respiratory therapist, RN, at bedside. RT explained that he failed cpap b/ c he did not breathe on his own without the ventilator. feels her is "doing better" and responding to her presence. "You have to lie still honey if you want God to heal you." Pending trach and peg decision Monday 02/19. Family/Friend Interactions: as above Objective Vital Signs: Vital Signs 02/16/18 13:27 02/16/18 13:30 02/16/18 14:00 Temperature Pulse Rate 64 64 Respiratory Rate 15 Blood Pressure 95/55 L 99/58 L Pulse Oximetry 100 100 100 02/16/18 14:30 02/16/18 15:00 02/16/18 15:16 Temperature Pulse Rate 66 63 66 Respiratory Rate 12 Blood Pressure 103/62 106/62 Pulse Oximetry 100 100 02/16/18 15:30 02/16/18 16:00 02/16/18 16:30 Temperature Pulse Rate 68 74 74 Respiratory Rate 21 14 17 Blood Pressure 113/67 113/69 118/67 Pulse Oximetry 96 97 97 02/16/18 17:00 02/16/18 17:11 02/16/18 17:30 Temperature Pulse Rate 99 H 87 Respiratory Rate 20 14 14 Blood Pressure 119/71 104/63 Pulse Oximetry 93 L 92 L 97 02/16/18 18:00 02/16/18 18:15 02/16/18 18:16 Temperature Pulse Rate 86 92 H 102 H Respiratory Rate 27 H 34 H 30 H Blood Pressure 86/56 L 80/51 L 85/54 L Pulse Oximetry 100 100 99 02/16/18 18:18 02/16/18 18:24 02/16/18 18:26 Temperature Pulse Rate 107 H 101 H 112 H Respiratory Rate 25 H 24 Blood Pressure 88/55 L 93/65 L Pulse Oximetry 99 99 02/16/18 18:30 02/16/18 20:00 02/16/18 21:00 Temperature 99.5 F Pulse Rate 109 H 103 H 93 H Respiratory Rate 22 15 Blood Pressure 104/66 124/72 Pulse Oximetry 98 98 02/16/18 21:03 02/16/18 23:00 02/16/18 23:46 Temperature Pulse Rate 104 H 88 72 Respiratory Rate 17 14 Blood Pressure Pulse Oximetry 98 97 02/17/18 00:00 02/17/18 03:00 02/17/18 03:21 Temperature 98.9 F Pulse Rate 80 66 73 Respiratory Rate 16 14 Blood Pressure 100/61 Pulse Oximetry 98 100 02/17/18 04:00 02/17/18 07:00 02/17/18 07:48 Temperature 98.1 F Pulse Rate 79 65 64 Respiratory Rate 14 11 L Blood Pressure 116/74 Pulse Oximetry 94 L 100 02/17/18 08:00 02/17/18 10:17 02/17/18 11:00 Temperature 97.9 F Pulse Rate 65 64 Respiratory Rate 13 11 L Blood Pressure 101/63 Pulse Oximetry 100 100 02/17/18 11:44 02/17/18 11:50 02/17/18 12:31 Temperature Pulse Rate 62 Respiratory Rate 12 10 L 12 Blood Pressure Pulse Oximetry 97 98 Intake & Output 02/16/18 02/17/18 02/17/18 18:59 06:59 18:59 Intake Total 710.95 / 710.95 1370 / 1370 1048.95 / 1048.95 Output Total 1850 / 1850 1400 / 1400 Balance -1139.05 / -1139.05 -30 / -30 1048.95 / 1048.95 Weight 59 kg Intake: IV 686.95 / 686.95 750 / 750 1048.95 / 1048.95 Heparin/D5W 25,000 U/250 mL 25, 250 / 250 68 / 68 000 unit In 250 ml @ 800 UNITS/ HR 8 mls/hr IV.CONT TITRATE PRN Rx#:[id number] Versed Inj 50 mg In 50 ml @ 2 50 / 50 50 / 50 50 / 50 MG/HR 2 mls/hr IV.CONT TITRATE PRN Rx#:[id number] Primacor Inj 20 MG In NS Inj 80 100 / 100 100 / 100 100 / 100 ML @ Per Protocol IV.CONT .Q0M ADRIEN Rx#:[id number] Maxipime Inj 2,000 MG In NS Inj 100 / 100 100 / 100 100 ML @ 200 mls/hr IV.SIG Q12H ADRIEN Rx#:[id number] Gentamicin Inj 38 MG In NS Inj 100.95 / 100.95 100.95 / 100.95 100 ML @ 201.9 mls/hr IV.SIG Q12H ADRIEN Rx#:[id number] Vancomycin Inj 1,500 MG In NS 530 / 530 Inj 500 ML @ 250 mls/hr IV.SIG Q24H ADRIEN Rx#:[id number] fentaNYL 10 mcg/mL Premix Drip 136 / 136 250 / 250 2,500 mcg In 250 ml @ 50 MCG/HR 5 mls/hr IV.SIG TITRATE PRN Rx #:[id number] Flagyl 500 MG Inj 100 ML @ 100 200 / 200 100 / 100 100 / 100 mls/hr IV.SIG Q8H ADRIEN Rx#: [id number] Tube Feeding 24 / 24 120 / 120 Water Bolus Amount 500 / 500 Output: Stool 50 / 50 Urine Amount (Catheter) 1800 / 1800 1400 / 1400 Indwelling Temp Sensing 1800 / 1800 1400 / 1400 Catheter Other: Date of Last Bowel Movement 02/16/18 02/16/18 02/16/18 Physical Exam: CONSTITUTIONAL/GENERAL: frail and cachectic male TUBES/LINES/DRAINS: roberson, ET tube, OGT, Left IJ, right arterial line, rectal bag SKIN: Sallow. No jaundice, rashes, or lesions. No wounds seen anteriorly. Not diaphoretic. HEAD: Atraumatic. Normocephalic. + temporal wasting EYES: PERRL. eyes glassy. No scleral icterus. No injection or drainage. Fundi not examined. ENT: Nose without bleeding or purulent drainage. Throat exam inhibited by presence ET tube CARDIOVASCULAR: tachycardic without murmurs, gallops, or rubs. + click. + bounding radial pulses RESPIRATORY/CHEST: Symmetric, unlabored respirations. Breath sounds coarse, right > left. diminished bases. GASTROINTESTINAL: Abdomen soft, nondistended. No hepato-splenomegaly, or palpable masses. Bowel sounds present, hypoactive. +rectal bag with stool GENITOURINARY: Without palpable bladder distension. Roberson catheter in place. MUSCULOSKELETAL: Trace BUE edema. Extremities without clubbing, cyanosis. No mottling or clubbing. NEUROLOGICAL: agitated/restless, no purposeful movement, does not follow commands. Diagnostic Tests Laboratory: Laboratory Results - last 72 hr 02/14/18 02/14/18 02/14/18 13:33 15:30 17:10 WBC RBC Hgb Hct MCV MCH MCHC RDW Plt Count MPV Prelim Diff (Auto) Neut % (Auto) Lymph % (Auto) [place] % (Auto) Eos % (Auto) Baso % (Auto) Neut # (Auto) Lymph # (Auto) [place] # (Auto) Eos # (Auto) Baso # (Auto) WBC Differential Seg Neuts % (Manual) Lymphocytes % (Manual) Monocytes % (Manual) Metamyelocytes % (Man) Myelocytes % (Man) Promyelocytes % (Man) Abs Neuts (Manual) Differential Comment Platelet Estimate Platelet Morphology Ovalocytes Keratocytes APTT Sodium Potassium Chloride Carbon Dioxide Anion Gap BUN Creatinine Estimated GFR POC Glucose 161 H 138 H Random Glucose Calcium Phosphorus Magnesium Total Bilirubin AST ALT Alkaline Phosphatase Total Protein Albumin Gentamicin Peak Gentamicin Trough 4.2 H Digoxin 02/14/18 02/15/18 02/15/18 23:35 01:00 04:30 WBC RBC Hgb Hct MCV MCH MCHC RDW Plt Count MPV Prelim Diff (Auto) Neut % (Auto) Lymph % (Auto) [place] % (Auto) Eos % (Auto) Baso % (Auto) Neut # (Auto) Lymph # (Auto) [place] # (Auto) Eos # (Auto) Baso # (Auto) WBC Differential Seg Neuts % (Manual) Lymphocytes % (Manual) Monocytes % (Manual) Metamyelocytes % (Man) Myelocytes % (Man) Promyelocytes % (Man) Abs Neuts (Manual) Differential Comment Platelet Estimate Platelet Morphology Ovalocytes Keratocytes APTT Sodium 149 H Potassium 3.2 L 3.3 L Chloride 114 H Carbon Dioxide 28.3 Anion Gap 7 BUN 47 H Creatinine 1.28 Estimated GFR 57 L POC Glucose 200 H Random Glucose 175 H Calcium 8.5 Phosphorus 2.5 Magnesium 2.0 Total Bilirubin 0.5 AST 23 ALT 16 Alkaline Phosphatase 56 Total Protein 6.6 Albumin 3.2 L Gentamicin Peak Gentamicin Trough Digoxin 0.9 02/15/18 02/15/18 02/15/18 04:30 13:30 15:36 WBC 6.5 RBC 2.85 L Hgb 8.7 L Hct 26.2 L MCV 92.1 MCH 30.7 MCHC 33.3 RDW 17.1 Plt Count 267 MPV 8.9 Prelim Diff (Auto) Slide review pending Neut % (Auto) 88.7 H Lymph % (Auto) 4.3 L [place] % (Auto) 7.0 Eos % (Auto) 0.0 Baso % (Auto) 0.0 Neut # (Auto) 5.7 Lymph # (Auto) 0.3 L [place] # (Auto) 0.5 Eos # (Auto) 0.0 Baso # (Auto) 0.0 WBC Differential Manual diff final Seg Neuts % (Manual) 80 H Lymphocytes % (Manual) 10 Monocytes % (Manual) 7 Metamyelocytes % (Man) 1 Myelocytes % (Man) 1 H Promyelocytes % (Man) 1 H Abs Neuts (Manual) 5.4 Differential Comment . Platelet Estimate Normal Platelet Morphology Normal Ovalocytes 1+ H Keratocytes Occ H APTT Sodium Potassium Chloride Carbon Dioxide Anion Gap BUN Creatinine Estimated GFR POC Glucose Random Glucose Calcium Phosphorus Magnesium Total Bilirubin AST ALT Alkaline Phosphatase Total Protein Albumin Gentamicin Peak 5.2 Gentamicin Trough 1.7 Digoxin 02/15/18 02/15/18 02/16/18 20:30 23:18 03:48 WBC 12.6 H D RBC 2.83 L Hgb 8.7 L Hct 26.2 L MCV 92.6 MCH 30.7 MCHC 33.1 RDW 17.2 Plt Count 260 MPV 8.9 Prelim Diff (Auto) Neut % (Auto) 90.3 H Lymph % (Auto) 3.2 L [place] % (Auto) 6.5 Eos % (Auto) 0.0 Baso % (Auto) 0.0 Neut # (Auto) 11.4 H Lymph # (Auto) 0.4 L [place] # (Auto) 0.8 Eos # (Auto) 0.0 Baso # (Auto) 0.0 WBC Differential . Seg Neuts % (Manual) Lymphocytes % (Manual) Monocytes % (Manual) Metamyelocytes % (Man) Myelocytes % (Man) Promyelocytes % (Man) Abs Neuts (Manual) Differential Comment Auto diff final Platelet Estimate Platelet Morphology Ovalocytes Keratocytes APTT Sodium Potassium 3.5 Chloride Carbon Dioxide Anion Gap BUN Creatinine Estimated GFR POC Glucose 138 H Random Glucose Calcium Phosphorus Magnesium Total Bilirubin AST ALT Alkaline Phosphatase Total Protein Albumin Gentamicin Peak Gentamicin Trough Digoxin 02/16/18 02/16/18 02/16/18 03:48 03:48 04:48 WBC RBC Hgb Hct MCV MCH MCHC RDW Plt Count MPV Prelim Diff (Auto) Neut % (Auto) Lymph % (Auto) [place] % (Auto) Eos % (Auto) Baso % (Auto) Neut # (Auto) Lymph # (Auto) [place] # (Auto) Eos # (Auto) Baso # (Auto) WBC Differential Seg Neuts % (Manual) Lymphocytes % (Manual) Monocytes % (Manual) Metamyelocytes % (Man) Myelocytes % (Man) Promyelocytes % (Man) Abs Neuts (Manual) Differential Comment Platelet Estimate Platelet Morphology Ovalocytes Keratocytes APTT 105.2 H* D 104.6 H* Sodium 151 H Potassium 3.7 Chloride 114 H Carbon Dioxide 30.5 Anion Gap 7 BUN 43 H Creatinine 1.15 Estimated GFR 64 L POC Glucose Random Glucose 138 H Calcium 8.6 Phosphorus 2.9 Magnesium 2.0 Total Bilirubin 0.6 AST 27 ALT 16 Alkaline Phosphatase 55 Total Protein 6.6 Albumin 3.1 L Gentamicin Peak Gentamicin Trough Digoxin 02/16/18 02/16/18 02/16/18 05:24 05:45 11:54 WBC RBC Hgb Hct MCV MCH MCHC RDW Plt Count MPV Prelim Diff (Auto) Neut % (Auto) Lymph % (Auto) [place] % (Auto) Eos % (Auto) Baso % (Auto) Neut # (Auto) Lymph # (Auto) [place] # (Auto) Eos # (Auto) Baso # (Auto) WBC Differential Seg Neuts % (Manual) Lymphocytes % (Manual) Monocytes % (Manual) Metamyelocytes % (Man) Myelocytes % (Man) Promyelocytes % (Man) Abs Neuts (Manual) Differential Comment Platelet Estimate Platelet Morphology Ovalocytes Keratocytes APTT 59.0 H D Sodium Potassium Chloride Carbon Dioxide Anion Gap BUN Creatinine Estimated GFR POC Glucose 139 H 125 H Random Glucose Calcium Phosphorus Magnesium Total Bilirubin AST ALT Alkaline Phosphatase Total Protein Albumin Gentamicin Peak Gentamicin Trough Digoxin 02/16/18 02/16/18 02/17/18 12:20 23:31 03:30 WBC RBC Hgb Hct MCV MCH MCHC RDW Plt Count MPV Prelim Diff (Auto) Neut % (Auto) Lymph % (Auto) [place] % (Auto) Eos % (Auto) Baso % (Auto) Neut # (Auto) Lymph # (Auto) [place] # (Auto) Eos # (Auto) Baso # (Auto) WBC Differential Seg Neuts % (Manual) Lymphocytes % (Manual) Monocytes % (Manual) Metamyelocytes % (Man) Myelocytes % (Man) Promyelocytes % (Man) Abs Neuts (Manual) Differential Comment Platelet Estimate Platelet Morphology Ovalocytes Keratocytes APTT 41.1 H D 80.9 H D Sodium Potassium Chloride Carbon Dioxide Anion Gap BUN Creatinine Estimated GFR POC Glucose 165 H Random Glucose Calcium Phosphorus Magnesium Total Bilirubin AST ALT Alkaline Phosphatase Total Protein Albumin Gentamicin Peak Gentamicin Trough Digoxin 02/17/18 02/17/18 02/17/18 03:30 03:30 05:18 WBC 17.4 H RBC 3.06 L Hgb 9.2 L Hct 28.4 L MCV 92.7 MCH 30.2 MCHC 32.6 RDW 17.5 H Plt Count 245 MPV 9.0 Prelim Diff (Auto) Neut % (Auto) 94.1 H Lymph % (Auto) 1.7 L [place] % (Auto) 4.1 Eos % (Auto) 0.0 Baso % (Auto) 0.1 Neut # (Auto) 16.4 H Lymph # (Auto) 0.3 L [place] # (Auto) 0.7 Eos # (Auto) 0.0 Baso # (Auto) 0.0 WBC Differential . Seg Neuts % (Manual) Lymphocytes % (Manual) Monocytes % (Manual) Metamyelocytes % (Man) Myelocytes % (Man) Promyelocytes % (Man) Abs Neuts (Manual) Differential Comment Auto diff final Platelet Estimate Platelet Morphology Ovalocytes Keratocytes APTT Sodium 148 H Potassium 3.7 Chloride 110 H Carbon Dioxide 31.0 Anion Gap 7 BUN 40 H Creatinine 1.22 Estimated GFR 60 L POC Glucose 169 H Random Glucose 152 H Calcium 8.7 Phosphorus Magnesium Total Bilirubin AST ALT Alkaline Phosphatase Total Protein Albumin Gentamicin Peak 3.5 L Gentamicin Trough Digoxin 02/17/18 12:03 WBC RBC Hgb Hct MCV MCH MCHC RDW Plt Count MPV Prelim Diff (Auto) Neut % (Auto) Lymph % (Auto) [place] % (Auto) Eos % (Auto) Baso % (Auto) Neut # (Auto) Lymph # (Auto) [place] # (Auto) Eos # (Auto) Baso # (Auto) WBC Differential Seg Neuts % (Manual) Lymphocytes % (Manual) Monocytes % (Manual) Metamyelocytes % (Man) Myelocytes % (Man) Promyelocytes % (Man) Abs Neuts (Manual) Differential Comment Platelet Estimate Platelet Morphology Ovalocytes Keratocytes APTT Sodium Potassium Chloride Carbon Dioxide Anion Gap BUN Creatinine Estimated GFR POC Glucose 185 H Random Glucose Calcium Phosphorus Magnesium Total Bilirubin AST ALT Alkaline Phosphatase Total Protein Albumin Gentamicin Peak Gentamicin Trough Digoxin Result Diagrams: 02/17/18 03:30 02/17/18 03:30 Microbiology: Microbiology 02/11/18 03:54 Aerobic Blood Culture - Final Blood - Peripheral No growth in 5 days Anaerobic Blood Culture - Final No growth in 5 days 02/11/18 03:49 Aerobic Blood Culture - Final Blood - Peripheral No growth in 5 days Anaerobic Blood Culture - Final No growth in 5 days 02/14/18 16:00 Gram Stain - Final Sputum - Tracheal Aspirate Sputum Culture - Preliminary gram negative rods 02/11/18 03:40 Gram Stain - Final Sputum - Endotracheal Sputum Culture - Final Pseudomonas aeruginosa Klebsiella pneumoniae Procedures: 02/05 left IJ placement 02/05 retrograde left heart cath, stent placement, IABP placement 02/05 intubated Assessment and Plan - Disease Oriented Problem List (1) Cardiogenic shock (2) Ventricular fibrillation (3) Hypokalemia (4) CAD (coronary artery disease) Pertinent Non-Medical Issues: Psychosocial: On disability. 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 Spiritual: Restorationism, non-jehovah's witness. Communications Professional has visited, they also have catholic emergency worker visiting. Legal: Pt not capacitated to make medical decisions. Unclear if he will regain capacity. Per [place] statutes decision making would fall to as proxy. Ethical issues impacting care: none identified Important Contacts: Maria Isabel Tolentino [phone] sister Yvonne Valdivia [phone] Prognosis: 62 yo male s/p aortic valve replacement 2012 who suffered significant NSTEMI, EF <20% on presentation, troponins up to 32. Echo also showed global hypokinesis. Not clear how much of heart failure was present prior to NSTEMI. s /p heart cath, LAD stenting complicated by vasospasm, placement and subsequent removal of IABP. 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 He has had several runs of v fib and v tach requiring chest compressions, shocks. He has underlying COPD and was having activity intolerance prior to this event. His prognosis for recovery is poor; chances of returning to baseline quite poor. He is at serious risk for continued complications including but not limited to recurrent arrhythmias, multi-organ injury; and at risk for further decline. Code Status: Full Code Plan: - LEGAL DECISON MAKER - Pt not capacitated to make medical decisions. Per [place] statutes decision making would fall to as proxy. Family working together to make decisions - , wifes RN sister, and pt's sister. - CODE STATUS- full code - GOALS - verbalizes aggressive goals. Pt's says she is going to pray before making trach and PEG decision. She feels God will heal her . - Per CCM will need trach/PEG decision by Monday 02/19 - SYMPTOMS - * dyspnea - multifactorial - hx COPD, EF < 20%, class 4 heart failure. CXR 02/15 indicates CHF. Failed CPAP trial today 2/2 apnea. Has RN currently uptitrating versed d/t agitation. PRN duonebs, scheduled duonebs, bumex 1mg BID , fentanyl 20ml/hr. * pain - multifactorial, lines, ET tube, catheters, hx chronic back pain 2/2 "chronic fractures." sees pain mgmt, been on hydrocodone 10/325, reportedly same dosage and frequency for 6 years. Also on duloxetine at home, now held. currently on fentanyl gtt 20ml/hr. * debility/weakness - multifactorial. poor neuro exams on sedation vacation, partly d/t sepsis. neg head CT. agitated today, not purposeful, not following commands.. neurology consult still pending. - eforsce verified - d/w RN Carly, RT - Palliative care will continue to follow during hospital course as condition evolves, to assist patient/decision-maker with understanding of medical conditions, weighing benefits/burdens of treatment options, for clarification of goals of treatment. Additionally will assist with any symptoms of palliative concern Attestation Attestation: To help prompt me to consider important information that might be impacting today's encounter and assessment, information from prior notes written by myself or my colleagues may have been "brought forward" into today's note. My signature on this note, however, is an attestation that I personally performed the exam, history, and/or decision-making noted today, and, unless otherwise indicated, the interactions with patient, family, and staff as well as the review of records all occurred today. I also attest that the listed assessment and stated plan reflect my best clinical judgment today based on the combination of historical information, prior notes, and today's exam/ interactions. When time spent is documented, it refers only to time spent today by the signer, or if indicated, combined time spent today by collaborating physician/nurse practitioner.
--- NOTE | 2018-02-17 15:06 | P.PNID ---
Subjective Remarks: not tolerating tube feeds not following commands failed CPAP not mcuh secretions afebrile off pressors Antibiotics: vanco gent cefepime oral vanco iv flagyl Allergies/Adverse Reactions: Allergies No Known Allergies Allergy (Verified 18 18:10) Objective Vital Signs 18 15:16 18 15:30 02/16/18 16:00 Temperature Pulse Rate 66 68 74 Respiratory Rate 12 21 14 Blood Pressure 113/67 113/69 Pulse Oximetry 96 97 02/16/18 16:30 02/16/18 17:00 02/16/18 17:11 Temperature Pulse Rate 74 99 H Respiratory Rate 17 20 14 Blood Pressure 118/67 119/71 Pulse Oximetry 97 93 L 92 L 02/16/18 17:30 02/16/18 18:00 02/16/18 18:15 Temperature Pulse Rate 87 86 92 H Respiratory Rate 14 27 H 34 H Blood Pressure 104/63 86/56 L 80/51 L Pulse Oximetry 97 100 100 02/16/18 18:16 02/16/18 18:18 02/16/18 18:24 Temperature Pulse Rate 102 H 107 H 101 H Respiratory Rate 30 H 25 H 24 Blood Pressure 85/54 L 88/55 L 93/65 L Pulse Oximetry 99 99 99 02/16/18 18:26 18 18:30 02/16/18 20:00 Temperature 99.5 F Pulse Rate 112 H 109 H 103 H Respiratory Rate 22 15 Blood Pressure 104/66 124/72 Pulse Oximetry 98 98 02/16/18 21:00 02/16/18 21:03 02/16/18 23:00 Temperature Pulse Rate 93 H 104 H 88 Respiratory Rate 17 Blood Pressure Pulse Oximetry 98 02/16/18 23:46 02/17/18 00:00 02/17/18 03:00 Temperature 98.9 F Pulse Rate 72 80 66 Respiratory Rate 14 16 Blood Pressure 100/61 Pulse Oximetry 97 98 02/17/18 03:21 18 04:00 02/17/18 07:00 Temperature 98.1 F Pulse Rate 73 79 65 Respiratory Rate 14 14 Blood Pressure 116/74 Pulse Oximetry 100 94 L 02/17/18 07:48 02/17/18 08:00 02/17/18 10:17 Temperature 97.9 F Pulse Rate 64 65 Respiratory Rate 11 L 13 11 L Blood Pressure 101/63 Pulse Oximetry 100 100 100 02/17/18 11:00 02/17/18 11:44 02/17/18 11:50 Temperature Pulse Rate 64 62 Respiratory Rate 12 10 L Blood Pressure Pulse Oximetry 97 02/17/18 12:00 02/17/18 12:31 Temperature 97.9 F Pulse Rate 63 Respiratory Rate 11 L 12 Blood Pressure 82/53 L Pulse Oximetry 100 98 Intake & Output 02/16/18 02/17/18 02/17/18 18:59 06:59 18:59 Intake Total 710.95 / 710.95 1370 / 1370 1098.95 / 1098.95 Output Total 1850 / 1850 1400 / 1400 Balance -1139.05 / -1139.05 -30 / -30 1098.95 / 1098.95 Weight 59 kg Intake: IV 686.95 / 686.95 750 / 750 1098.95 / 1098.95 Heparin/D5W 25,000 U/250 mL 25, 250 / 250 68 / 68 000 unit In 250 ml @ 800 UNITS/ HR 8 mls/hr IV.CONT TITRATE PRN Rx#:[id number] Versed Inj 50 mg In 50 ml @ 2 50 / 50 50 / 50 100 / 100 MG/HR 2 mls/hr IV.CONT TITRATE PRN Rx#:[id number] Primacor Inj 20 MG In NS Inj 80 100 / 100 100 / 100 100 / 100 ML @ Per Protocol IV.CONT .Q0M [facility] Rx#:[id number] Maxipime Inj 2,000 MG In NS Inj 100 / 100 100 / 100 100 ML @ 200 mls/hr IV.SIG Q12H [facility] Rx#:[id number] Gentamicin Inj 38 MG In NS Inj 100.95 / 100.95 100.95 / 100.95 100 ML @ 201.9 mls/hr IV.SIG Q12H [facility] Rx#:[id number] Vancomycin Inj 1,500 MG In NS 530 / 530 Inj 500 ML @ 250 mls/hr IV.SIG Q24H [facility] Rx#:[id number] fentaNYL 10 mcg/mL Premix Drip 136 / 136 250 / 250 2,500 mcg In 250 ml @ 50 MCG/HR 5 mls/hr IV.SIG TITRATE PRN Rx #:[id number] Flagyl 500 MG Inj 100 ML @ 100 200 / 200 100 / 100 100 / 100 mls/hr IV.SIG Q8H [facility] Rx#: [id number] Tube Feeding 120 / 120 Water Bolus Amount 500 / 500 Output: Stool 50 / 50 Urine Amount (Catheter) 1800 / 1800 1400 / 1400 Indwelling Temp Sensing 1800 / 1800 1400 / 1400 Catheter Other: Date of Last Bowel Movement 02/16/18 02/16/18 02/16/18 02/14/18 16:00 Sputum - Tracheal Aspirate Gram Stain - Final 02/14/18 16:00 Sputum - Tracheal Aspirate Sputum Culture - Preliminary Pseudomonas aeruginosa 02/11/18 03:54 Blood - Peripheral Aerobic Blood Culture - Final No growth in 5 days 02/11/18 03:54 Blood - Peripheral Anaerobic Blood Culture - Final No growth in 5 days 02/11/18 03:49 Blood - Peripheral Aerobic Blood Culture - Final No growth in 5 days 02/11/18 03:49 Blood - Peripheral Anaerobic Blood Culture - Final No growth in 5 days 02/11/18 03:40 Sputum - Endotracheal Gram Stain - Final 02/11/18 03:40 Sputum - Endotracheal Sputum Culture - Final Pseudomonas aeruginosa Klebsiella pneumoniae Lab - Hematology Results 02/16/18 02/17/18 03:48 03:30 WBC 12.6 H D 17.4 H RBC 2.83 L 3.06 L Hgb 8.7 L 9.2 L Hct 26.2 L 28.4 L MCV 92.6 92.7 MCH 30.7 30.2 MCHC 33.1 32.6 RDW 17.2 17.5 H Plt Count 260 245 MPV 8.9 9.0 Neut % (Auto) 90.3 H 94.1 H Lymph % (Auto) 3.2 L 1.7 L [place] % (Auto) 6.5 4.1 Eos % (Auto) 0.0 0.0 Baso % (Auto) 0.0 0.1 Neut # (Auto) 11.4 H 16.4 H Lymph # (Auto) 0.4 L 0.3 L [place] # (Auto) 0.8 0.7 Eos # (Auto) 0.0 0.0 Baso # (Auto) 0.0 0.0 WBC Differential . . Differential Comment Auto diff final Auto diff final Lab - Chemistry Results 02/15/18 02/15/1818 20:30 23:18 03:48 Sodium 151 H Potassium 3.5 3.7 Chloride 114 H Carbon Dioxide 30.5 Anion Gap 7 BUN 43 H Creatinine 1.15 Estimated GFR 64 L POC Glucose 138 H Random Glucose 138 H Calcium 8.6 Phosphorus 2.9 Magnesium 2.0 Total Bilirubin 0.6 AST 27 ALT 16 Alkaline Phosphatase 55 Total Protein 6.6 Albumin 3.1 L 02/16/18 02/16/18 02/16/18 05:24 11:54 23:31 Sodium Potassium Chloride Carbon Dioxide Anion Gap BUN Creatinine Estimated GFR POC Glucose 139 H 125 H 165 H Random Glucose Calcium Phosphorus Magnesium Total Bilirubin AST ALT Alkaline Phosphatase Total Protein Albumin 02/17/18 02/17/18 02/17/18 03:30 05:18 12:03 Sodium 148 H Potassium 3.7 Chloride 110 H Carbon Dioxide 31.0 Anion Gap 7 BUN 40 H Creatinine 1.22 Estimated GFR 60 L POC Glucose 169 H 185 H Random Glucose 152 H Calcium 8.7 Phosphorus Magnesium Total Bilirubin AST ALT Alkaline Phosphatase Total Protein Albumin Imaging: ITS Impressions Abdomen/Bladder Ultrasound 02/05/18 00:00 CONCLUSION: 1. No evidence of hydronephrosis. 2. The echogenicity of the kidneys is equal to that of the liver which can be seen with medical renal disease. 3. Simple cyst in right kidney. 4. Suboptimal visualization of the left kidney. 5. Small amount of free fluid along the spleen. This could represent an adjacent pleural effusion. Chest X-Ray 02/15/18 06:00 CONCLUSION: Hazy opacity is now noted in the perihilar regions and both lung bases as well as a small left effusion. The findings are most characteristic of congestive heart failure. Head CT 02/15/18 12:23 CONCLUSION: 1. Negative CT Head non contrast. . Head MRI 02/16/18 08:28 CONCLUSION: 1. New focus of restricted diffusion high along the right cerebral vertex measuring 8 mm consistent with a new small focal acute infarction. 2. There is a new 5 mm area restricted diffusion high along the left cerebral vertex consistent with a new small focal acute infarction. 3. 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 This area is stable compared to the prior examination. 4. Stable bilateral cortical atrophy and mild chronic white matter changes. 5. Chronic bilateral mastoiditis. Physical Exam: GENERAL: intubated on vent SKIN: Warm and dry. HEAD: Atraumatic. Normocephalic. EYES: Pupils equal and round. No scleral icterus. No injection or drainage. ENT: No nasal bleeding or discharge. Mucous membranes pink and moist. NECK: Trachea midline. No JVD. CARDIOVASCULAR: Regular rate and rhythm. + diastolic blowing murmur on aortic valve point 1-2/6 today RESPIRATORY: No accessory muscle use. b/l rales to auscultation. Breath sounds equal bilaterally. GASTROINTESTINAL: Abdomen soft, tight, distended. Hepatic and splenic margins not palpable. : roberson in place with good amount of urine MUSCULOSKELETAL: Extremities without clubbing, cyanosis, or edema. No obvious deformities. warmt o cool to touch feet NEUROLOGICAL: moves around, eyes remain closed, moves all extremeties, not following commands PSYCHIATRIC:unable to assess Assessment and Plan - Plan Sepsis C.diff ? VAP ; PSAE, KLEb - new infiltrates and difficultynweaninfg Previous MSSA sepsis with presumed PVE of aortic valve prosthesis, on treatment - tx included vanco+ gent w/o rifampin Acute renal insufficiency, improving slowly GFR CHF EF < 20 % sp AK troponin peaked @ 32 cont vanco + gent as a part of PVE Rx will not add rifampin while on amio 2/2 interaction with amiodarone Rifampin can be added if amiodarone is discontinued ccont cefepime and complete 7-14 days of PNA treatment Worsening leukocytosis Ileus New stroke KUB CXR in am will switch to cefazoline + gent + rif (if no amio) once complleted tx cont C.diff tx: po vanco + IV flagyl dw @ b/s
--- NOTE | 2018-02-17 19:17 | XR ---
EXAM DATE: 02/17/2018 4:31 PM EDT AGE/SEX: 62 years / Male INDICATIONS: Distention. CLINICAL DATA: This is the patient's initial encounter. Patient reports that signs and symptoms have been present for 3 days and indicates a pain score of Nonresponsive. MEDICAL/SURGICAL HISTORY: Chronic obstructive pulmonary disease. CABG. COMPARISON: No prior exams available for comparison. FINDINGS: Single AP supine view of the abdomen. Nasogastric tube in place with the tip and side-port in the re gion of the proximal stomach. Multiple air-filled loops of nondilated small bowel. Mildly distended a ir-filled proximal cecum. Nondistended air-filled stomach. Metallic coils are seen in the left upper quadrant of the abdomen. Degenerative findings of lumbar spine. CONCLUSION: Nonspecific bowel gas pattern. Electronically signed by: Fabiano Boggs MD 02/17/2018 4:36 PM EDT
[2018-02-18] MEDS: SODIUM CHLOR 0.9% IV.SIG SCH ×2 (04:17→15:07)
[2018-02-18] MEDS: Chlorhexidine Gluconate 2% 1 Pack (2 Cloths) TOPICAL SCH (04:17)
[2018-02-18] MEDS: GENTAMICIN IV.SIG SCH ×2 (04:17→15:07)
[2018-02-18] MEDS: Oral Hygiene Kit OROPHARYNG SCH ×4 (04:18→23:56)
[2018-02-18 05:07] LABS: Baso % (Auto) 0.1 % (0.0-2.0); Hematocrit 28.5 % (39.0-51.0); Hemoglobin 9.2 gm/dL (13.0-17.0); Lymph # (Auto) 0.3 th/mm3 (1.0-4.8); Lymph % (Auto) 1.7 % (9.0-44.0); Mean Corpuscular HGB Conc 32.4 % (32.0-36.0); Mean Corpuscular Hemoglobin 30.1 pg (27.0-34.0); Mean Corpuscular Volume 93.2 fL (80.0-100.0); Mean Platelet Volume 9.6 fL (7.0-11.0); Mono # (Auto) 0.5 th/mm3 (0.0-0.9); Mono % (Auto) 3.2 % (0.0-8.0); Neut # (Auto) 16.1 th/mm3 (1.8-7.7); Platelet Count 221 th/mm3 (150-450); Red Blood Count 3.05 mil/mm3 (4.50-5.90); Red Cell Distribution Width 17.9 % (11.6-17.2)
[2018-02-18] MEDS: Midazolam 50 MG/50 ML Inj 50 MG/50 ML BAG IV.CONT PRN ×3 (05:18→18:27)
[2018-02-18 05:27] LABS: Alanine Aminotransferase 16 U/L (12-78); Albumin 2.7 g/dL (3.4-5.0); Alkaline Phosphatase 53 U/L (45-117); Anion Gap 10 meq/L (5-15); Aspartate Aminotransferase 102 U/L (15-37); Blood Urea Nitrogen 48 mg/dL (7-18); Carbon Dioxide 28.1 meq/L (21.0-32.0); Chloride 108 meq/L (98-107); Glomerular Filtration Rate 59 mL/min (>89); Glucose,Random 153 mg/dL (74-106); Magnesium 1.8 mg/dL (1.5-2.5); Phosphorus 2.5 mg/dL (2.5-4.9); Potassium 3.5 meq/L (3.5-5.1); Sodium 146 meq/L (136-145); Total Protein 6.6 g/dL (6.4-8.2); Vancomycin,Random 36.3 Comment
[2018-02-18] MEDS: Milrinone Inj 20 MG in Sodium Chlor 0.9% Inj 80 ML IV.CONT SCH ×2 (06:02→17:22)
[2018-02-18] MEDS: Insulin NovoLOG Aspart Correctional Sugar Inj SQ SCH ×4 (06:02→23:57)
[2018-02-18] MEDS: Chlorhexidine 0.12% Oral Kit 15 ML UDC OROPHARYNG SCH ×2 (08:45→20:50)
[2018-02-18] MEDS: Senna/Docusate Sodium 8.6/50 MG Tablet PO SCH ×2 (08:46→20:48)
[2018-02-18] MEDS: Amiodarone 200 MG Tablet G-TUBE SCH ×2 (08:46→20:48)
[2018-02-18] MEDS: Ferrrous Sulfate 300 MG/5 ML UDC PO SCH (08:47)
[2018-02-18] MEDS: Spironolactone 50 MG Tablet PO SCH ×2 (08:47→18:00)
[2018-02-18] MEDS: Pregabalin 75 MG Capsule PO SCH ×2 (08:47→20:48)
[2018-02-18] MEDS: Beneprotein Powder Packet G-TUBE SCH ×3 (08:47→18:01)
[2018-02-18] MEDS: MethylPREDNISolone Sod Succinate Inj 40 MG/ML Vial IV.PUSH SCH ×2 (08:47→20:49)
[2018-02-18] MEDS: Potassium Chloride 10 MEQ ER Capsule G-TUBE SCH ×2 (08:47→20:48)
[2018-02-18] MEDS: Hypromellose 0.3% Opth Gel 10 GM Bottle EACH EYE SCH ×2 (08:48→20:49)
[2018-02-18] MEDS: Ascorbic Acid 500 MG Tablet NG/OG SCH (08:48)
--- NOTE | 2018-02-18 09:18 | P.PNCC ---
Subjective Subjective Remarks/Hospital Course: 62-year-old male with past medical history of [place] mechanical aortic valve (09/21/12 Dr. Gonzalez), on chronic anticoagulation with warfarin, atrial fibrillation postop from AVR , COPD on 2.5 L home O2, stroke in 2015 resulting in left-sided sensory deficits and neuropathy, osteoporosis with chronic low back pain. He was recently admitted to [facility] from 01/23 through 01/31/18 for MSSA bacteremia. It is believed that the original source of infection was a wound on his right index finger when electric drill slipped and created a puncture wound. He was discharged with right upper extremity PICC line receiving cefazolin 2 g IV every 8 hours and gentamicin 210 mg IV daily. He states that home health administered antibiotics at 17:00 and shortly thereafter he began having chills and rigors and sought medical attention at [facility]. He had no rash. Upon arrival, he was hypotensive in the low 80s. He was given 2 L S bolus but remained hypotensive so was started on Levophed. He then developed heart rate in the 140s, reportedly atrial flutter so he was started on Amiodarone drip in [place] and converted to sinus rhythm. He was transfused 2 units PRBC due to Hgb 9.3. His stool was nonbloody nonmelena but was Hemoccult positive. He was given zosyn and vancomycin. Critical care medicine was then contacted and accepted patient for transfer to [facility]. He denies tenderness/redness/drainage at PICC site. Aside from mechanical aortic valve, he has no other hardware or indwelling devices. He denies headache, cough, dysuria. He has had a few loose stools at home, but stools have sometimes been formed. He denies chest pain, does report some SOB. EKG at [place] had marked inferolateral ischemic changes. Obtained EKG upon arrival to [facility] which is improved. SUBJ 02/05: Patient remains critical ill appearing, complaints of chest tightness but denies pain. Remains on 8 mcg/min of Levophed to maintain map about 65. However increasing shortness of breath. Chest x-ray shows increasing pulmonary edema. Troponin was 27.5 currently on IV heparin therapeutic. Cardiology consult is pending at this time. I will stop on maintenance fluids give 40 mg IV Lasix and IV albumin 25 g 1. 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 IABP placed. patient emergently intubated for acute hypoxic respiratory failure secondary to cardiogenic shock and pulmonary edema. started on milrinone at 0.375 mcg/kg/min and levophed. bumex drip started. remains critically ill. 02/07: Remains critically ill remains on Levophed and milrinone. Currently diuresing well with Bumex drip. IABP in place management per cardiology-good waveform and augmentation. Chest x-ray shows adequate positioning of IABP, diffuse bilateral pulmonary edema 02/08: Remains critical but showing some signs of improvement. Diuresing very well on Bumex infusion. Remains on Levophed and milrinone. IABP one-to-one with good augmentation management per cardiology. Chest x-ray shows improving edema but with persistent bilateral effusions. Will initiate weaning trials if tolerated 02/09: Still remains on pressors, unable to wean Levophed below 2 mcg/min. Milrinone currently on 0.375 mcg/kg/min. IABP removed yesterday. On sedation hold patient wakes up but remains lethargic. Weakly squeezes hand. Urine output excellent on Bumex, 4 L output in 24 hours. Will attempt CPAP today 02/10: Multiple episodes of V. fib V. tach arrest yesterday morning. Successfully resuscitated. Yesterday night had two-minute V. fib arrest return of spontaneous circulation in sinus rhythm after DC cardioversion 1. Currently remains on milrinone and low-dose Levophed. I will try to wean off Levophed introduce low-dose beta-rasheed due to recurrent arrhythmia. Keep potassium more than 4 magnesium more than 2 02/11: Patient still critical and cardiogenic shock requiring Levophed and milrinone. Urine output improved with adding Diamox. Approximately 2 L urine output in 24 hours, creatinine remained stable. Oxygenation slightly improved FiO2 reduced to 70% now. Overall prognosis remains poor family wants to continue aggressive care 02/12: Remains critical but slight improvement in oxygenation. But continues to require Levophed and milrinone the low-dose. Urine output remains adequate. Chest x-ray shows interval improvement. Creatinine remains stable to slightly improved. Add IV albumin to improve blood pressure and to promote diuresis. 02/13 Patient remains intubated and sedated with Versed and fentanyl. Afebrile, off Levophed remains on Milrinone and Heparin drip. SUBJECTIVE: 02/14: Hypothermic overnight. Remains on milrinone and heparin drips. Tolerating tube feeds at 20 cc now. Positive BM. No changes neurologically 02/15 Patient remains sedated with Versed and Fentanyl drips, on Milrinone 0.5. 02/16 Patient remains intubated sedated with Versed and Fentanyl infusion. On Milrinone and Heparin drips. CT brain yesterday showed no acute findings. Afebrile. 02/17 Patient remains sedated and intubated. Afebrile, On Milrinone and Heparin drip. 02/18: Remains critical continues to require milrinone. Urine output adequate. Chest x-ray shows bilateral infiltrate effusion. CT chest to better define effusions and infiltrate. Increase Bumex to 1 mg every 8 hours. Patient is persistently weak, will attempt SBT unlikely to be successfully extubated at this time. Most likely will need tracheostomy if family desires aggressive care Objective Vital Signs / I&O: Vital Signs 02/17/18 10:17 02/17/18 11:00 02/17/18 11:44 Temperature Pulse Rate 64 62 Respiratory Rate 11 L 12 Blood Pressure Pulse Oximetry 100 02/17/18 11:50 02/17/18 12:00 02/17/18 12:31 Temperature 97.9 F Pulse Rate 63 Respiratory Rate 10 L 11 L 12 Blood Pressure 82/53 L Pulse Oximetry 97 100 98 02/17/18 15:00 02/17/18 15:49 02/17/18 16:00 Temperature 98.4 F Pulse Rate 60 64 64 Respiratory Rate 14 25 H Blood Pressure 99/64 L Pulse Oximetry 100 02/17/18 16:24 02/17/18 19:00 02/17/18 19:38 Temperature Pulse Rate 62 63 Respiratory Rate 13 12 Blood Pressure Pulse Oximetry 91 L 99 02/17/18 20:00 02/17/18 23:00 02/18/18 00:00 Temperature 98.2 F 98.6 F Pulse Rate 62 72 63 Respiratory Rate 10 L 11 L Blood Pressure 95/59 L 96/59 L Pulse Oximetry 99 97 08/04/18 00:15 02/18/18 03:00 02/18/18 04:00 Temperature 98.4 F Pulse Rate 62 73 69 Respiratory Rate 12 21 Blood Pressure 110/68 Pulse Oximetry 95 95 02/18/18 04:07 02/18/18 06:59 02/18/18 07:00 Temperature Pulse Rate 65 64 70 Respiratory Rate 12 12 Blood Pressure Pulse Oximetry 98 Intake & Output 02/17/18 02/18/18 02/18/18 18:59 06:59 18:59 Intake Total 2579.90 / 2579.90 1395.95 / 1395.95 100 / 100 Output Total 1750 / 1750 1050 / 1050 Balance 829.90 / 829.90 345.95 / 345.95 100 / 100 Weight 57.5 kg Intake: IV 1978.90 / 1978.90 784.95 / 784.95 100 / 100 Heparin/D5W 25,000 U/250 mL 25, 68 / 68 000 unit In 250 ml @ 800 UNITS/ HR 8 mls/hr IV.CONT TITRATE PRN Rx#:[id number] Versed Inj 50 mg In 50 ml @ 2 150 / 150 100 / 100 MG/HR 2 mls/hr IV.CONT TITRATE PRN Rx#:[id number] Primacor Inj 20 MG In NS Inj 80 100 / 100 134 / 134 ML @ Per Protocol IV.CONT .Q0M [facility] Rx#:[id number] Maxipime Inj 2,000 MG In NS Inj 200 / 200 100 / 100 100 ML @ 200 mls/hr IV.SIG Q12H [facility] Rx#:[id number] Gentamicin Inj 38 MG In NS Inj 201.90 / 201.90 100.95 / 100.95 100 ML @ 201.9 mls/hr IV.SIG Q12H [facility] Rx#:[id number] Vancomycin Inj 1,500 MG In NS 1060 / 1060 Inj 500 ML @ 250 mls/hr IV.SIG Q24H [facility] Rx#:[id number] fentaNYL 10 mcg/mL Premix Drip 250 / 250 2,500 mcg In 250 ml @ 50 MCG/HR 5 mls/hr IV.SIG TITRATE PRN Rx #:[id number] Flagyl 500 MG Inj 100 ML @ 100 200 / 200 100 / 100 100 / 100 mls/hr IV.SIG Q8H [facility] Rx#: [id number] Tube Feeding 100 / 100 111 / 111 Water Bolus Amount 500 / 500 500 / 500 Output: Stool 100 / 100 200 / 200 Urine Amount (Catheter) 1650 / 1650 850 / 850 Indwelling Temp Sensing 1650 / 1650 850 / 850 Catheter Other: Date of Last Bowel Movement 02/16/18 02/18/18 Result Diagrams: 02/18/18 04:10 02/18/18 04:10 Objective Remarks: GENERAL: 62-year-old male currently orotracheally intubated SKIN: cool and poorly perfused. HEAD: Atraumatic. Normocephalic. EYES: Pupils equal and round, 2 mm and reactive. No injection or drainage. ENT: No nasal bleeding or discharge. Orotracheally intubated NECK: Trachea midline. + JVD. left IJ TLC clean dry and dressing intact. CARDIOVASCULAR: RRR. S1, S2. No S4. No murmurs rubs or gallops. Remains on milrinone RESPIRATORY: Bilateral coarse rhonchi and and rales, no wheezes GASTROINTESTINAL: Abdomen soft, non-tender, nondistended. no guarding. VASC: Right radial art line in place with distal perfusion intact. right femoral IABP removed. no evidence of hematoma. distal pulses dopplerable. MUSCULOSKELETAL: Extremities with trace bilateral lower extremity edema NEUROLOGICAL: Sedated, intubated, doesn't follow commands off sedation. Opens eyes appears to track Assessment and Plan - Assessment and Plan Plan: NEURO/PSYCH: History of stroke in 2015 Neuropathy left upper and lower extremity Chronic low back pain On Fentanyl drip and midazolam for sedation/analgesia while intubated Goal of RA SS -1. Start Precedex to facilitate ventilator weaning, daily sedation vacation Monitor neuro status 02/15 CT brain: No acute findings 02/15 EEG : Encephalopathy, no epileptiform activity MRI brain 02/16: New focus of restricted diffusion high along the right cerebral vertex measuring 8 mm consistent with a new small focal acute infarction. There is a new 5 mm area restricted diffusion high along the left cerebral vertex consistent with a new small focal acute infarction Neuro consulted. Continue ASA. Continue pregabalin 150 mg p.o. twice daily. Hold duloxetine 90 mg p.o. daily. RESP: Acute hypoxic respiratory failure COPD on 2.5 L home O2 Prior tobacco abuse Bilateral pleural effusions Continue with vent support keep sats >92% On PRVC RR 10, TV 400, IT: 1.0, PEEP:5 FIO2: 45%. Albuterol/ipratropium aerosols every 6 hours with albuterol aerosols every 2 hours as needed for dyspnea SBT daily as garrett, but mental status unlikely to permit extubation vent bundle, hob elevated. methylprednisolone succinate 40mg IV Q12 CT of the chest today to evaluate effusions infiltrate CV: V. tach/V. fib arrest NSTEMI Cardiogenic shock Acute systolic heart failure Atrial fibrillation with RVR [place] mechanical aortic valve (09/21/12 Dr. Gonzalez) s/p Tricuspid annuloplasty Continue milrinone infusion 0.5 mcg/kg/min Monitor HR and BP keep MAP>65mmHg s/p cath And PCI -proximal LAD and large diagonal 90% stenosis, 2 BMS stent 02/05, mid LAD vasospasm post PCI Continue aspirin 81 mg daily, clopidogrel 75 mg daily, amiodarone 400mg TID, carvedilol 3.125mg BID, Bumetanide 1mg IV BID -increase to q8h 02/18/18 and Spironolactone 50 mg twice daily Heparin drip currently at 800 units an hour. PTT therapeutic. Continue atorvastatin 40 mg nightly. Off IABP 02/08/18 [place] 01/23/18no vegetation. Normal aortic mechanical valve with trivial aortic insufficiency. Tricuspid annuloplasty. Mild to moderate LV generalized hypokinesis Echo from 02/05: EF <20%, diffuse hypokinesis, bioprosthetic valve [employer] is Romana Bartlett GI: Continue tube feeds- On Jevity 1.5 advance to goal rate Lansoprazole for stress ulcer prophylactic Had normal EGD on 10/21/17 FEN/RENAL: BPH Acute kidney injury-improving Cano due to aggressive diuresis. close monitoring of uop Monitor renal function, I/O's, electrolytes replacement per protocol Renal ultrasound to evaluate for evidence of obstruction -did not show any obstruction On Bumex 1mg BID, Aldactone 50 mg BID. 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 difficile colitis PICC removed Continue IV vancomycin, IV gentamicin and IV cefepime C.diff tx: po vanco + IV flagyl 02/11/18 Infectious disease following 02/14 Sputum: Pseudomonas 02/11 Sputum cx: Pseudomonas, Kleb pneumonia BC 02/11, 02/06: NGTD HEME: Chronic anemia Iron deficiency Continue ferrous sulfate 300 milligrams liquid daily. Received 2 units packed red cells in [place] ER due to anemia and shock. Monitor CBC ENDO: SSI to maintain euglycemia PROPH: Heparin drip. Protonix for stress ulcer prophylaxis ACCESS: Right radial art line placed in the emergency department 02/04. Left IJ central line placed 02/05/18. Removed right upper extremity PICC. Palliative care is following CCT 32 minutes exclusive of separately billable procedures.` Patient remains very critical despite being close to 2 weeks on vent support. He is quite weak and debilitated unlikely to be successfully extubated. Recommend tracheostomy and PEG tube placement if he continues to fail weaning trial.
[2018-02-18 09:29] LABS: ABG Base Excess 3.1 mmol/L (-2-2); ABG PCO2 39 mmHg (38-42); ABG PO2 62 mmHG (61-120)
--- NOTE | 2018-02-18 10:25 | XR ---
EXAM DATE: 02/18/2018 4:41 AM EDT AGE/SEX: 62 years / Male INDICATIONS: Respiratory failure. CLINICAL DATA: This is the patient's subsequent encounter. Patient reports that signs and symptoms h ave been present for 3 days and indicates a pain score of Nonresponsive. MEDICAL/SURGICAL HISTORY: None. None. COMPARISON: [facility], CHEST 1V SINGLE AP, 02/15/2018. . FINDINGS: ET tube tip 2.5 cm above the renny. Gastric tube tip and side-port project within the stomach. Left central line tip projects over the cavoatrial junction. There is persistent consolidation in the left lower lung with loss of delineation of the entire left hemidiaphragm. Increasing hazy opacity in the right lower lung with loss of delineation of the right hemidiaphragm. The heart is stable in size. CONCLUSION: 1. Persistent left lower lobe consolidation and increasing partially consolidative opacities in the right lower lung. Electronically signed by: Isidro Mcclure MD 02/18/2018 6:09 AM EDT
--- NOTE | 2018-02-18 14:24 | P.PNID ---
Subjective Remarks: afebrile On vent stool 300 leukocytosis still 16 K Antibiotics: vanco gent cefepime oral vanco iv flagyl Allergies/Adverse Reactions: Allergies No Known Allergies Allergy (Verified 02/04/18 18:10) Objective Vital Signs 02/17/18 15:00 02/17/18 15:49 02/17/18 16:00 Temperature 98.4 F Pulse Rate 60 64 64 Respiratory Rate 14 25 H Blood Pressure 99/64 L Pulse Oximetry 100 02/17/18 16:24 02/17/18 19:00 02/17/18 19:38 Temperature Pulse Rate 62 63 Respiratory Rate 13 12 Blood Pressure Pulse Oximetry 91 L 99 02/17/18 20:00 02/17/18 23:00 02/18/18 00:00 Temperature 98.2 F 98.6 F Pulse Rate 62 72 63 Respiratory Rate 10 L 11 L Blood Pressure 95/59 L 96/59 L Pulse Oximetry 99 97 02/18/18 00:15 02/18/18 03:00 02/18/18 04:00 Temperature 98.4 F Pulse Rate 62 73 69 Respiratory Rate 12 21 Blood Pressure 110/68 Pulse Oximetry 95 95 02/18/18 04:07 02/18/18 06:59 02/18/18 07:00 Temperature Pulse Rate 65 64 70 Respiratory Rate 12 12 Blood Pressure Pulse Oximetry 98 02/18/18 08:00 02/18/18 09:03 02/18/18 11:00 Temperature 98.4 F Pulse Rate 70 74 Respiratory Rate 14 16 Blood Pressure 111/69 Pulse Oximetry 95 96 02/18/18 12:00 Temperature 98.6 F Pulse Rate 80 Respiratory Rate 32 H Blood Pressure 134/80 Pulse Oximetry 96 Intake & Output 02/17/18 02/18/18 02/18/18 18:59 06:59 18:59 Intake Total 2579.90 / 2579.90 1395.95 / 1395.95 150 / 150 Output Total 1750 / 1750 1050 / 1050 Balance 829.90 / 829.90 345.95 / 345.95 150 / 150 Weight 57.5 kg Intake: IV 1978.90 / 1978.90 784.95 / 784.95 150 / 150 Heparin/D5W 25,000 U/250 mL 25, 68 / 68 000 unit In 250 ml @ 800 UNITS/ HR 8 mls/hr IV.CONT TITRATE PRN Rx#:[id number] Versed Inj 50 mg In 50 ml @ 2 150 / 150 100 / 100 50 / 50 MG/HR 2 mls/hr IV.CONT TITRATE PRN Rx#:[id number] Primacor Inj 20 MG In NS Inj 80 100 / 100 134 / 134 ML @ Per Protocol IV.CONT .Q0M [facility] Rx#:[id number] Maxipime Inj 2,000 MG In NS Inj 200 / 200 100 / 100 100 ML @ 200 mls/hr IV.SIG Q12H [facility] Rx#:[id number] Gentamicin Inj 38 MG In NS Inj 201.90 / 201.90 100.95 / 100.95 100 ML @ 201.9 mls/hr IV.SIG Q12H [facility] Rx#:[id number] Vancomycin Inj 1,500 MG In NS 1060 / 1060 Inj 500 ML @ 250 mls/hr IV.SIG Q24H [facility] Rx#:[id number] fentaNYL 10 mcg/mL Premix Drip 250 / 250 2,500 mcg In 250 ml @ 50 MCG/HR 5 mls/hr IV.SIG TITRATE PRN Rx #:[id number] Flagyl 500 MG Inj 100 ML @ 100 200 / 200 100 / 100 100 / 100 mls/hr IV.SIG Q8H [facility] Rx#: [id number] Tube Feeding 100 / 100 111 / 111 Water Bolus Amount 500 / 500 500 / 500 Output: Stool 100 / 100 200 / 200 Urine Amount (Catheter) 1650 / 1650 850 / 850 Indwelling Temp Sensing 1650 / 1650 850 / 850 Catheter Other: Date of Last Bowel Movement 02/16/18 02/18/18 02/18/18 02/14/18 16:00 Sputum - Tracheal Aspirate Gram Stain - Final 02/14/18 16:00 Sputum - Tracheal Aspirate Sputum Culture - Final Pseudomonas aeruginosa 02/11/18 03:54 Blood - Peripheral Aerobic Blood Culture - Final No growth in 5 days 02/11/18 03:54 Blood - Peripheral Anaerobic Blood Culture - Final No growth in 5 days 02/11/18 03:49 Blood - Peripheral Aerobic Blood Culture - Final No growth in 5 days 02/11/18 03:49 Blood - Peripheral Anaerobic Blood Culture - Final No growth in 5 days Lab - Hematology Results 02/17/18 02/18/18 03:30 04:10 WBC 17.4 H 17.0 H RBC 3.06 L 3.05 L Hgb 9.2 L 9.2 L Hct 28.4 L 28.5 L MCV 92.7 93.2 MCH 30.2 30.1 MCHC 32.6 32.4 RDW 17.5 H 17.9 H Plt Count 245 221 MPV 9.0 9.6 Neut % (Auto) 94.1 H 95.0 H Lymph % (Auto) 1.7 L 1.7 L Candler % (Auto) 4.1 3.2 Eos % (Auto) 0.0 0.0 Baso % (Auto) 0.1 0.1 Neut # (Auto) 16.4 H 16.1 H Lymph # (Auto) 0.3 L 0.3 L Candler # (Auto) 0.7 0.5 Eos # (Auto) 0.0 0.0 Baso # (Auto) 0.0 0.0 WBC Differential . . Differential Comment Auto diff final Auto diff final Lab - Chemistry Results 02/16/18 02/17/18 02/17/18 23:31 03:30 05:18 Sodium 148 H Potassium 3.7 Chloride 110 H Carbon Dioxide 31.0 Anion Gap 7 BUN 40 H Creatinine 1.22 Estimated GFR 60 L POC Glucose 165 H 169 H Random Glucose 152 H Calcium 8.7 Phosphorus Magnesium Total Bilirubin AST ALT Alkaline Phosphatase Total Protein Albumin 02/17/18 02/17/18 02/17/18 12:03 17:45 23:37 Sodium Potassium Chloride Carbon Dioxide Anion Gap BUN Creatinine Estimated GFR POC Glucose 185 H 184 H 160 H Random Glucose Calcium Phosphorus Magnesium Total Bilirubin AST ALT Alkaline Phosphatase Total Protein Albumin 02/18/18 02/18/18 02/18/18 04:10 05:48 12:08 Sodium 146 H Potassium 3.5 Chloride 108 H Carbon Dioxide 28.1 Anion Gap 10 BUN 48 H Creatinine 1.24 Estimated GFR 59 L POC Glucose 168 H 157 H Random Glucose 153 H Calcium 9.0 Phosphorus 2.5 Magnesium 1.8 Total Bilirubin 0.7 AST 102 H ALT 16 Alkaline Phosphatase 53 Total Protein 6.6 Albumin 2.7 L Imaging: ITS Impressions Abdomen/Bladder Ultrasound 02/05/18 00:00 CONCLUSION: 1. No evidence of hydronephrosis. 2. The echogenicity of the kidneys is equal to that of the liver which can be seen with medical renal disease. 3. Simple cyst in right kidney. 4. Suboptimal visualization of the left kidney. 5. Small amount of free fluid along the spleen. This could represent an adjacent pleural effusion. Head CT 02/15/18 12:23 CONCLUSION: 1. Negative CT Head non contrast. . Head MRI 02/16/18 08:28 CONCLUSION: 1. New focus of restricted diffusion high along the right cerebral vertex measuring 8 mm consistent with a new small focal acute infarction. 2. There is a new 5 mm area restricted diffusion high along the left cerebral vertex consistent with a new small focal acute infarction. 3. 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 This area is stable compared to the prior examination. 4. Stable bilateral cortical atrophy and mild chronic white matter changes. 5. Chronic bilateral mastoiditis. Abdomen X-Ray 02/17/18 00:00 CONCLUSION: Nonspecific bowel gas pattern. Chest X-Ray 02/18/18 00:00 CONCLUSION: 1. Persistent left lower lobe consolidation and increasing partially consolidative opacities in the right lower lung. Physical Exam: GENERAL: intubated on vent SKIN: Warm and dry. HEAD: Atraumatic. Normocephalic. EYES: Pupils equal and round. No scleral icterus. No injection or drainage. ENT: No nasal bleeding or discharge. Mucous membranes pink and moist. NECK: Trachea midline. No JVD. CARDIOVASCULAR: Regular rate and rhythm. + diastolic blowing murmur on aortic valve point 1-2/6 today RESPIRATORY: No accessory muscle use. b/l rales to auscultation. Breath sounds equal bilaterally. GASTROINTESTINAL: Abdomen soft, tight, distended. Hepatic and splenic margins not palpable. : roberson in place with good amount of urine MUSCULOSKELETAL: Extremities without clubbing, cyanosis, or edema. No obvious deformities. warmt o cool to touch feet NEUROLOGICAL: moves around, eyes remain closed, moves all extremeties, not following commands, minimally reactive PSYCHIATRIC:unable to assess Assessment and Plan - Plan Sepsis C.diff ? VAP ; PSAE, KLEb - new infiltrates and difficultynweaninfg Previous MSSA sepsis with presumed PVE of aortic valve prosthesis, on treatment - tx included vanco+ gent w/o rifampin Acute renal insufficiency, improving slowly GFR CHF EF < 20 % sp PA troponin peaked @ 32 cont vanco + gent as a part of PVE Rx will not add rifampin while on amio 2/2 interaction with amiodarone Rifampin can be added if amiodarone is discontinued ccont cefepime and complete 7-14 days of PNA treatment Worsening leukocytosis Ileus New stroke repaet sputum clx will switch to cefazoline + gent + rif (if no amio) once complleted tx cont C.diff tx: po vanco dc IV flagyl dw @ b/s
--- NOTE | 2018-02-18 16:11 | CT ---
EXAM DATE: 02/18/2018 12:53 PM EDT AGE/SEX: 62 years / Male INDICATIONS: Respiratory distress. CLINICAL DATA: This is the patient's initial encounter. Patient reports that signs and symptoms have been present for 1 day and indicates a pain score of Nonresponsive. MEDICAL/SURGICAL HISTORY: Chronic obstructive pulmonary disease. Stroke. Cardiovascular disease. . Heart valve replacement RADIATION DOSE: 5.64 CTDI (mGy) COMPARISON: [facility] [place], CT CHEST W CONTRAST, 01/28/2018. . TECHNIQUE: Multiple contiguous axial images were obtained through the chest without contrast. Image s were obtained in suspended respiration using multiple row detector helical technique. Using automa adelaida exposure control and adjustment of the mA and/or kV according to patient size, radiation dose was kept as low as reasonably achievable to obtain optimal diagnostic quality images. DICOM format imag e data is available electronically for review and comparison. FINDINGS: Comparison is January 28. Previous bilateral pleural effusions have nearly completely resolved. However, there is worsening dense consolidation in the posterior aspect of both lungs predominantly near the bases. Previous groundglass opacity in the upper lungs and perihilar regions has resolved. This previous sternotomy with aortic valve replacement and right central line in superior vena cava. Endotracheal tube and nasogastric tube in good position. CONCLUSION: 1. Increasing basilar and dependent consolidation in both lungs most characteristic of pneumonia or aspiration. 2. Near complete resolution of previous small effusions. 3. Osteopenia with stable compression deformities in the spine. 4. Previous sternotomy with aortic valve replacement. 5. Right-sided central line, ET tube and NG tube in good position. Electronically signed by: Clifton Bacon MD 02/18/2018 2:37 PM EDT
[2018-02-19] MEDS: SODIUM CHLOR 0.9% IV.SIG SCH ×2 (02:08→14:44)
[2018-02-19] MEDS: GENTAMICIN IV.SIG SCH ×2 (02:08→14:44)
[2018-02-19] MEDS: Midazolam 50 MG/50 ML Inj 50 MG/50 ML BAG IV.CONT PRN (02:09)
[2018-02-19] MEDS: fentaNYL 10 mcg/mL Premix Drip 2,500 MCG/250 ML BAG IV.SIG PRN (02:10)
[2018-02-19] MEDS: Milrinone Inj 20 MG in Sodium Chlor 0.9% Inj 80 ML IV.CONT SCH ×2 (03:42→23:38)
[2018-02-19] MEDS: Oral Hygiene Kit OROPHARYNG SCH ×3 (05:13→16:20)
[2018-02-19] MEDS: Insulin NovoLOG Aspart Correctional Sugar Inj SQ SCH ×3 (05:13→17:48)
[2018-02-19 05:20] LABS: Hemoglobin 9.3 gm/dL (13.0-17.0); Mean Corpuscular HGB Conc 33.4 % (32.0-36.0); Mean Corpuscular Hemoglobin 30.7 pg (27.0-34.0); Mean Corpuscular Volume 91.9 fL (80.0-100.0); Mean Platelet Volume 10.3 fL (7.0-11.0); Platelet Count 213 th/mm3 (150-450); Red Blood Count 3.04 mil/mm3 (4.50-5.90); Red Cell Distribution Width 18.2 % (11.6-17.2); White Blood Count 15.3 th/mm3 (4.0-11.0)
[2018-02-19 05:32] LABS: Albumin 2.7 g/dL (3.4-5.0); Anion Gap 11 meq/L (5-15); Aspartate Aminotransferase 57 U/L (15-37); Blood Urea Nitrogen 56 mg/dL (7-18); Calcium 8.8 mg/dL (8.5-10.1); Carbon Dioxide 27.9 meq/L (21.0-32.0); Chloride 104 meq/L (98-107); Glomerular Filtration Rate 49 mL/min (>89); Glucose,Random 146 mg/dL (74-106); Magnesium 1.7 mg/dL (1.5-2.5); Potassium 3.7 meq/L (3.5-5.1); Sodium 143 meq/L (136-145)
[2018-02-19 05:33] LABS: Alanine Aminotransferase 17 U/L (12-78)
[2018-02-19 05:35] LABS: Alkaline Phosphatase 53 U/L (45-117); Total Protein 6.8 g/dL (6.4-8.2)
[2018-02-19] MEDS: Heparin Drip 25,000 UNIT/250 ML BAG IV.CONT PRN (08:24)
[2018-02-19] MEDS: Chlorhexidine 0.12% Oral Kit 15 ML UDC OROPHARYNG SCH ×2 (08:25→20:29)
[2018-02-19] MEDS: Ferrrous Sulfate 300 MG/5 ML UDC PO SCH (08:26)
[2018-02-19] MEDS: Potassium Chloride 10 MEQ ER Capsule G-TUBE SCH ×2 (08:26→20:28)
[2018-02-19] MEDS: Amiodarone 200 MG Tablet G-TUBE SCH ×2 (08:26→20:29)
[2018-02-19] MEDS: Senna/Docusate Sodium 8.6/50 MG Tablet PO SCH ×2 (08:26→20:28)
[2018-02-19] MEDS: Pregabalin 75 MG Capsule PO SCH ×2 (08:26→20:28)
[2018-02-19] MEDS: MethylPREDNISolone Sod Succinate Inj 40 MG/ML Vial IV.PUSH SCH ×2 (08:26→20:28)
[2018-02-19] MEDS: Hypromellose 0.3% Opth Gel 10 GM Bottle EACH EYE SCH ×2 (08:27→20:29)
[2018-02-19] MEDS: Spironolactone 50 MG Tablet PO SCH ×2 (08:27→17:29)
[2018-02-19] MEDS: Ascorbic Acid 500 MG Tablet NG/OG SCH (08:27)
[2018-02-19] MEDS: Beneprotein Powder Packet G-TUBE SCH ×3 (08:27→17:29)
--- NOTE | 2018-02-19 09:32 | P.PNCC ---
Subjective Subjective Remarks/Hospital Course: 62-year-old male with past medical history of [place] mechanical aortic valve (09/21/12 Dr. Gonzalez), on chronic anticoagulation with warfarin, atrial fibrillation postop from AVR , COPD on 2.5 L home O2, stroke in 2015 resulting in left-sided sensory deficits and neuropathy, osteoporosis with chronic low back pain. He was recently admitted to [facility] from 01/23 through 01/31/18 for MSSA bacteremia. It is believed that the original source of infection was a wound on his right index finger when electric drill slipped and created a puncture wound. He was discharged with right upper extremity PICC line receiving cefazolin 2 g IV every 8 hours and gentamicin 210 mg IV daily. He states that home health administered antibiotics at 17:00 and shortly thereafter he began having chills and rigors and sought medical attention at [facility]. He had no rash. Upon arrival, he was hypotensive in the low 80s. He was given 2 L S bolus but remained hypotensive so was started on Levophed. He then developed heart rate in the 140s, reportedly atrial flutter so he was started on Amiodarone drip in [place] and converted to sinus rhythm. He was transfused 2 units PRBC due to Hgb 9.3. His stool was nonbloody nonmelena but was Hemoccult positive. He was given zosyn and vancomycin. Critical care medicine was then contacted and accepted patient for transfer to [facility]. He denies tenderness/redness/drainage at PICC site. Aside from mechanical aortic valve, he has no other hardware or indwelling devices. He denies headache, cough, dysuria. He has had a few loose stools at home, but stools have sometimes been formed. He denies chest pain, does report some SOB. EKG at [place] had marked inferolateral ischemic changes. Obtained EKG upon arrival to [facility] which is improved. SUBJ 02/05: Patient remains critical ill appearing, complaints of chest tightness but denies pain. Remains on 8 mcg/min of Levophed to maintain map about 65. However increasing shortness of breath. Chest x-ray shows increasing pulmonary edema. Troponin was 27.5 currently on IV heparin therapeutic. Cardiology consult is pending at this time. I will stop on maintenance fluids give 40 mg IV Lasix and IV albumin 25 g 1. Patient is very critical patient and updated at the bedside 02/06: to cardiac catheterization technologist last night for [facility] with LAD stent complicated by vasospasm of the LAD. IABP placed. patient emergently intubated for acute hypoxic respiratory failure secondary to cardiogenic shock and pulmonary edema. started on milrinone at 0.375 mcg/kg/min and levophed. bumex drip started. remains critically ill. 02/07: Remains critically ill remains on Levophed and milrinone. Currently diuresing well with Bumex drip. IABP in place management per cardiology-good waveform and augmentation. Chest x-ray shows adequate positioning of IABP, diffuse bilateral pulmonary edema 02/08: Remains critical but showing some signs of improvement. Diuresing very well on Bumex infusion. Remains on Levophed and milrinone. IABP one-to-one with good augmentation management per cardiology. Chest x-ray shows improving edema but with persistent bilateral effusions. Will initiate weaning trials if tolerated 02/09: Still remains on pressors, unable to wean Levophed below 2 mcg/min. Milrinone currently on 0.375 mcg/kg/min. IABP removed yesterday. On sedation hold patient wakes up but remains lethargic. Weakly squeezes hand. Urine output excellent on Bumex, 4 L output in 24 hours. Will attempt CPAP today 02/10: Multiple episodes of V. fib V. tach arrest yesterday morning. Successfully resuscitated. Yesterday night had two-minute V. fib arrest return of spontaneous circulation in sinus rhythm after DC cardioversion 1. Currently remains on milrinone and low-dose Levophed. I will try to wean off Levophed introduce low-dose beta-rasheed due to recurrent arrhythmia. Keep potassium more than 4 magnesium more than 2 02/11: Patient still critical and cardiogenic shock requiring Levophed and milrinone. Urine output improved with adding Diamox. Approximately 2 L urine output in 24 hours, creatinine remained stable. Oxygenation slightly improved FiO2 reduced to 70% now. Overall prognosis remains poor family wants to continue aggressive care 02/12: Remains critical but slight improvement in oxygenation. But continues to require Levophed and milrinone the low-dose. Urine output remains adequate. Chest x-ray shows interval improvement. Creatinine remains stable to slightly improved. Add IV albumin to improve blood pressure and to promote diuresis. 02/13 Patient remains intubated and sedated with Versed and fentanyl. Afebrile, off Levophed remains on Milrinone and Heparin drip. SUBJECTIVE: 02/14: Hypothermic overnight. Remains on milrinone and heparin drips. Tolerating tube feeds at 20 cc now. Positive BM. No changes neurologically 02/15 Patient remains sedated with Versed and Fentanyl drips, on Milrinone 0.5. 02/16 Patient remains intubated sedated with Versed and Fentanyl infusion. On Milrinone and Heparin drips. CT brain yesterday showed no acute findings. Afebrile. 02/17 Patient remains sedated and intubated. Afebrile, On Milrinone and Heparin drip. 02/18: Remains critical continues to require milrinone. Urine output adequate. Chest x-ray shows bilateral infiltrate effusion. CT chest to better define effusions and infiltrate. Increase Bumex to 1 mg every 8 hours. Patient is persistently weak, will attempt SBT unlikely to be successfully extubated at this time. Most likely will need tracheostomy if family desires aggressive care 02/19: Remains intubated sedated with Versed and fentanyl. Transition to Precedex to facilitate weaning trials. Patient responding slightly more to verbal command, appears to track even though not following commands. Creatinine slightly increased with increased diuresis. Chest x-ray shows improved pleural effusions. CT chest yesterday did not show significant effusion but basilar consolidation. Objective Vital Signs / I&O: Vital Signs 02/18/18 11:00 02/18/18 12:00 02/18/18 15:00 Temperature 98.6 F Pulse Rate 74 80 80 Respiratory Rate 32 H 14 Blood Pressure 134/80 Pulse Oximetry 96 02/18/18 16:00 02/18/18 16:32 02/18/18 19:00 Temperature 98.2 F Pulse Rate 80 117 H Respiratory Rate 16 14 Blood Pressure 120/71 Pulse Oximetry 96 96 02/18/18 20:00 02/18/18 20:10 02/19/18 00:00 Temperature 99.3 F 98.8 F Pulse Rate 86 81 68 Respiratory Rate 16 12 12 Blood Pressure 107/69 100/62 Pulse Oximetry 97 99 96 02/19/18 01:13 02/19/18 04:00 02/19/18 04:09 Temperature 98.6 F Pulse Rate 79 79 Respiratory Rate 14 18 15 Blood Pressure 112/68 Pulse Oximetry 95 96 97 02/19/18 07:00 02/19/18 08:00 Temperature 99.0 F Pulse Rate 74 69 Respiratory Rate 10 L 13 Blood Pressure 91/56 L Pulse Oximetry 92 L Intake & Output 02/18/18 02/19/18 02/19/18 18:59 06:59 18:59 Intake Total 1003.95 / 1003.95 1306.95 / 1306.95 250 / 250 Output Total 2300 / 2300 2500 / 2500 Balance -1296.05 / -1296.05 -1193.05 / -1193.05 250 / 250 Weight 57.5 kg Intake: IV 400.95 / 400.95 586.95 / 586.95 250 / 250 Heparin/D5W 25,000 U/250 mL 25, 250 / 250 000 unit In 250 ml @ 800 UNITS/ HR 8 mls/hr IV.CONT TITRATE PRN Rx#:[id number] Versed Inj 50 mg In 50 ml @ 2 100 / 100 50 / 50 MG/HR 2 mls/hr IV.CONT TITRATE PRN Rx#:[id number] Primacor Inj 20 MG In NS Inj 80 100 / 100 100 / 100 ML @ Per Protocol IV.CONT .Q0M [facility] Rx#:[id number] Maxipime Inj 2,000 MG In NS Inj 200 / 200 100 ML @ 200 mls/hr IV.SIG Q12H [facility] Rx#:[id number] Gentamicin Inj 38 MG In NS Inj 100.95 / 100.95 100.95 / 100.95 100 ML @ 201.9 mls/hr IV.SIG Q12H [facility] Rx#:[id number] KCl 40 mEq Premix Inj 40 meq In 0 / 0 100 ml @ 25 mls/hr IV.SIG UNSCH PRN Rx#:[id number] fentaNYL 10 mcg/mL Premix Drip 136 / 136 2,500 mcg In 250 ml @ 50 MCG/HR 5 mls/hr IV.SIG TITRATE PRN Rx #:[id number] Flagyl 500 MG Inj 100 ML @ 100 100 / 100 mls/hr IV.SIG Q8H [facility] Rx#: [id number] Tube Feeding 53 / 53 120 / 120 Water Bolus Amount 550 / 550 600 / 600 Output: Stool 300 / 300 400 / 400 Urine Amount (Catheter) 1999 Indwelling Temp Sensing 1999 Catheter Other: Date of Last Bowel Movement 02/18/18 02/19/18 02/19/18 Result Diagrams: 02/19/18 03:50 02/19/18 03:50 Objective Remarks: GENERAL: 62-year-old male currently orotracheally intubated SKIN: cool and poorly perfused. HEAD: Atraumatic. Normocephalic. EYES: Pupils equal and round, 2 mm and reactive. No injection or drainage. ENT: No nasal bleeding or discharge. Orotracheally intubated NECK: Trachea midline. + JVD. left IJ TLC clean dry and dressing intact. CARDIOVASCULAR: RRR. S1, S2. No S4. No murmurs rubs or gallops. Remains on milrinone, dose reduced to 0.25 mcg/kg/min RESPIRATORY: Bilateral coarse rhonchi and and rales, no wheezes GASTROINTESTINAL: Abdomen soft, non-tender, nondistended. no guarding. VASC: Right radial art line in place with distal perfusion intact. right femoral IABP removed. no evidence of hematoma. distal pulses dopplerable. MUSCULOSKELETAL: Extremities with trace bilateral lower extremity edema NEUROLOGICAL: Sedated, intubated, opens eyes to command appears to track. Moves extremities do not follow commands Assessment and Plan - Assessment and Plan Plan: NEURO/PSYCH: History of stroke in 2015 Neuropathy left upper and lower extremity Chronic low back pain On Fentanyl drip and midazolam for sedation/analgesia while intubated Discontinue Versed start Precedex to facilitate weaning trial Goal of RA SS -1. Monitor neuro status 02/15 CT brain: No acute findings. 02/15 EEG : Encephalopathy, no epileptiform activity MRI brain 02/16: New small focal acute infarction right cerebral vertex and also left cerebral vertex. Neuro has followed. Continue ASA. Continue pregabalin 150 mg p.o. twice daily. Hold duloxetine 90 mg p.o. daily. RESP: Acute hypoxic respiratory failure COPD on 2.5 L home O2 Prior tobacco abuse Bilateral pleural effusions Continue with vent support keep sats >92% On PRVC RR 10, TV 400, IT: 1.0, PEEP:5 FIO2: 45%. Albuterol/ipratropium aerosols every 6 hours with albuterol aerosols every 2 hours as needed for dyspnea SBT daily as garrett. vent bundle, hob elevated. methylprednisolone succinate 40mg IV Q12, reduce [address] of the chest -bibasilar infiltrate CV: V. tach/V. fib arrest NSTEMI Cardiogenic shock Acute systolic heart failure Atrial fibrillation with RVR [place] mechanical aortic valve (09/21/12 Dr. Gonzalez) s/p Tricuspid annuloplasty Continue milrinone infusion 0.5 mcg/kg/min, reduce to 0.25 mgc/kg/min, wean as tolerated to DC Monitor HR and BP keep MAP>65mmHg s/p cath And PCI -proximal LAD and large diagonal 90% stenosis, 2 BMS stent 02/05, mid LAD vasospasm post PCI Continue aspirin 81 mg daily, clopidogrel 75 mg daily, amiodarone 400mg TID, carvedilol 3.125mg BID Bumetanide 1mg IV q8h, reduce to 1 mg IV q12. Spironolactone 50 mg twice daily Heparin drip currently at 800 units an hour. PTT therapeutic. Continue atorvastatin 40 mg nightly. Off IABP 02/08/18 [place] 01/23/18no vegetation. Normal aortic mechanical valve with trivial aortic insufficiency. Tricuspid annuloplasty. Mild to moderate LV generalized hypokinesis Echo from 02/05: EF <20%, diffuse hypokinesis, bioprosthetic valve Lead Architect is Romana Bartlett GI: Continue tube feeds- On Jevity 1.5 Lansoprazole for stress ulcer prophylactic Had normal EGD on 10/21/17 FEN/RENAL: BPH Acute kidney injury-improving Cano due to aggressive diuresis. close monitoring of uop Monitor renal function, I/O's, electrolytes replacement per protocol Renal ultrasound to evaluate for evidence of obstruction -did not show any obstruction On Bumex 1mg q12, Aldactone 50 mg BID. 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 difficile colitis PICC removed Continue IV vancomycin, IV gentamicin and IV cefepime C.diff tx: po vanco + IV flagyl 02/11/18 Infectious disease following 02/14 Sputum: Pseudomonas 02/11 Sputum cx: Pseudomonas, Kleb pneumonia BC 02/11, 02/06: NGTD HEME: Chronic anemia Iron deficiency Continue ferrous sulfate 300 milligrams liquid daily. Received 2 units packed red cells in [place] ER due to anemia and shock. Monitor CBC ENDO: SSI to maintain euglycemia PROPH: Heparin drip. Protonix for stress ulcer prophylaxis ACCESS: Right radial art line placed in the emergency department 02/04. Left IJ central line placed 02/05/18. Removed right upper extremity PICC. Palliative care is following Level 3 Code Status: Full
--- NOTE | 2018-02-19 11:07 | XR ---
EXAM DATE: 02/19/2018 5:26 AM EDT AGE/SEX: 62 years / Male INDICATIONS: Shortness of breath. Possible respiratory disease. CLINICAL DATA: This is the patient's subsequent encounter. Patient reports that signs and symptoms h ave been present for 1 week and indicates a pain score of Nonresponsive. MEDICAL/SURGICAL HISTORY: Chronic obstructive pulmonary disease. CABG. COMPARISON: [facility], CHEST 1V SINGLE AP, 02/18/2018. . FINDINGS: ET tube tip well above the renny. Gastric tube tip and side-port project within the stomach. Left in ternal jugular catheter tip at the cavoatrial junction. There is persisting consolidation left lower lung with loss of delineation of the left hemidiaphragm. Partially consolidated infiltrate in the rig ht lower lung is slightly smaller than on prior exam and portions of the right hemidiaphragm are now discernible. The heart is stable in size. CONCLUSION: 1. Persistent left lower lobe consolidation. 2. Improving right lower lung infiltrate. Electronically signed by: Isidro Mcclure MD 02/19/2018 6:13 AM EDT
[2018-02-19] MEDS: Dexmedetomidine Inj 200 MCG in Sodium Chlor 0.9% Inj 48 ML IV.CONT PRN ×2 (12:40→16:21)
[2018-02-20] MEDS: Insulin NovoLOG Aspart Correctional Sugar Inj SQ SCH ×5 (00:33→23:40)
[2018-02-20] MEDS: Oral Hygiene Kit OROPHARYNG SCH ×5 (00:36→23:40)
[2018-02-20] MEDS: SODIUM CHLOR 0.9% IV.SIG SCH (03:00)
[2018-02-20] MEDS: GENTAMICIN IV.SIG SCH (03:00)
[2018-02-20] MEDS: Dexmedetomidine Inj 200 MCG in Sodium Chlor 0.9% Inj 48 ML IV.CONT PRN ×4 (03:48→15:22)
[2018-02-20 05:27] LABS: Hematocrit 29.1 % (39.0-51.0); Hemoglobin 9.6 gm/dL (13.0-17.0); Mean Corpuscular Hemoglobin 30.2 pg (27.0-34.0); Mean Corpuscular Volume 91.6 fL (80.0-100.0); Mean Platelet Volume 9.9 fL (7.0-11.0); Platelet Count 202 th/mm3 (150-450); Red Blood Count 3.18 mil/mm3 (4.50-5.90); Red Cell Distribution Width 17.5 % (11.6-17.2); White Blood Count 12.9 th/mm3 (4.0-11.0)
--- NOTE | 2018-02-20 05:34 | XR ---
EXAM DATE: 02/20/2018 5:22 AM EDT AGE/SEX: 62 years / Male INDICATIONS: Shortness of breath. Possible respiratory disease. CLINICAL DATA: This is the patient's subsequent encounter. Patient reports that signs and symptoms h ave been present for 1 week and indicates a pain score of Nonresponsive. MEDICAL/SURGICAL HISTORY: . Chronic obstructive pulmonary disease. CABG. COMPARISON: [facility], CHEST 1V SINGLE AP, 02/19/2018. . FINDINGS: Mild interstitial infiltrate and patchy bilateral airspace disease greatest in the left lower lobe no adelaida. Small left effusion suspected. Cardiomegaly. Enteric tube side-port at the esophagogastric junct ion. Sternotomy wires are seen, and a left jugular line tip overlies the expected location of the SVC . CONCLUSION: Bilateral infiltrates are noted as above. Electronically signed by: Timo Caballero MD 02/20/2018 5:33 AM EDT
[2018-02-20 05:51] LABS: Alanine Aminotransferase 20 U/L (12-78); Anion Gap 13 meq/L (5-15); Aspartate Aminotransferase 43 U/L (15-37); Blood Urea Nitrogen 60 mg/dL (7-18); Carbon Dioxide 26.2 meq/L (21.0-32.0); Chloride 101 meq/L (98-107); Glomerular Filtration Rate 38 mL/min (>89); Glucose,Random 133 mg/dL (74-106); Potassium 3.3 meq/L (3.5-5.1); Sodium 140 meq/L (136-145)
[2018-02-20 05:54] LABS: Alkaline Phosphatase 58 U/L (45-117); Total Protein 7.5 g/dL (6.4-8.2); Vancomycin,Random 19.5 Comment
--- NOTE | 2018-02-20 07:18 | P.PNCC ---
Subjective Subjective Remarks/Hospital Course: 62-year-old male with past medical history of [place] mechanical aortic valve (09/21/12 Dr. Gonzalez), on chronic anticoagulation with warfarin, atrial fibrillation postop from AVR , COPD on 2.5 L home O2, stroke in 2015 resulting in left-sided sensory deficits and neuropathy, osteoporosis with chronic low back pain. He was recently admitted to [facility] from 01/23 through 01/31/18 for MSSA bacteremia. It is believed that the original source of infection was a wound on his right index finger when electric drill slipped and created a puncture wound. He was discharged with right upper extremity PICC line receiving cefazolin 2 g IV every 8 hours and gentamicin 210 mg IV daily. He states that home health administered antibiotics at 17:00 and shortly thereafter he began having chills and rigors and sought medical attention at [facility]. He had no rash. Upon arrival, he was hypotensive in the low 80s. He was given 2 L S bolus but remained hypotensive so was started on Levophed. He then developed heart rate in the 140s, reportedly atrial flutter so he was started on Amiodarone drip in [place] and converted to sinus rhythm. He was transfused 2 units PRBC due to Hgb 9.3. His stool was nonbloody nonmelena but was Hemoccult positive. He was given zosyn and vancomycin. Critical care medicine was then contacted and accepted patient for transfer to [facility]. He denies tenderness/redness/drainage at PICC site. Aside from mechanical aortic valve, he has no other hardware or indwelling devices. He denies headache, cough, dysuria. He has had a few loose stools at home, but stools have sometimes been formed. He denies chest pain, does report some SOB. EKG at [place] had marked inferolateral ischemic changes. Obtained EKG upon arrival to [facility] which is improved. SUBJ 02/05: Patient remains critical ill appearing, complaints of chest tightness but denies pain. Remains on 8 mcg/min of Levophed to maintain map about 65. However increasing shortness of breath. Chest x-ray shows increasing pulmonary edema. Troponin was 27.5 currently on IV heparin therapeutic. Cardiology consult is pending at this time. I will stop on maintenance fluids give 40 mg IV Lasix and IV albumin 25 g 1. 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 IABP placed. patient emergently intubated for acute hypoxic respiratory failure secondary to cardiogenic shock and pulmonary edema. started on milrinone at 0.375 mcg/kg/min and levophed. bumex drip started. remains critically ill. 02/07: Remains critically ill remains on Levophed and milrinone. Currently diuresing well with Bumex drip. IABP in place management per cardiology-good waveform and augmentation. Chest x-ray shows adequate positioning of IABP, diffuse bilateral pulmonary edema 02/08: Remains critical but showing some signs of improvement. Diuresing very well on Bumex infusion. Remains on Levophed and milrinone. IABP one-to-one with good augmentation management per cardiology. Chest x-ray shows improving edema but with persistent bilateral effusions. Will initiate weaning trials if tolerated 02/09: Still remains on pressors, unable to wean Levophed below 2 mcg/min. Milrinone currently on 0.375 mcg/kg/min. IABP removed yesterday. On sedation hold patient wakes up but remains lethargic. Weakly squeezes hand. Urine output excellent on Bumex, 4 L output in 24 hours. Will attempt CPAP today 02/10: Multiple episodes of V. fib V. tach arrest yesterday morning. Successfully resuscitated. Yesterday night had two-minute V. fib arrest return of spontaneous circulation in sinus rhythm after DC cardioversion 1. Currently remains on milrinone and low-dose Levophed. I will try to wean off Levophed introduce low-dose beta-rasheed due to recurrent arrhythmia. Keep potassium more than 4 magnesium more than 2 02/11: Patient still critical and cardiogenic shock requiring Levophed and milrinone. Urine output improved with adding Diamox. Approximately 2 L urine output in 24 hours, creatinine remained stable. Oxygenation slightly improved FiO2 reduced to 70% now. Overall prognosis remains poor family wants to continue aggressive care 02/12: Remains critical but slight improvement in oxygenation. But continues to require Levophed and milrinone the low-dose. Urine output remains adequate. Chest x-ray shows interval improvement. Creatinine remains stable to slightly improved. Add IV albumin to improve blood pressure and to promote diuresis. 02/13 Patient remains intubated and sedated with Versed and fentanyl. Afebrile, off Levophed remains on Milrinone and Heparin drip. SUBJECTIVE: 02/14: Hypothermic overnight. Remains on milrinone and heparin drips. Tolerating tube feeds at 20 cc now. Positive BM. No changes neurologically 02/15 Patient remains sedated with Versed and Fentanyl drips, on Milrinone 0.5. 02/16 Patient remains intubated sedated with Versed and Fentanyl infusion. On Milrinone and Heparin drips. CT brain yesterday showed no acute findings. Afebrile. 02/17 Patient remains sedated and intubated. Afebrile, On Milrinone and Heparin drip. 02/18: Remains critical continues to require milrinone. Urine output adequate. Chest x-ray shows bilateral infiltrate effusion. CT chest to better define effusions and infiltrate. Increase Bumex to 1 mg every 8 hours. Patient is persistently weak, will attempt SBT unlikely to be successfully extubated at this time. Most likely will need tracheostomy if family desires aggressive care 02/19: Remains intubated sedated with Versed and fentanyl. Transition to Precedex to facilitate weaning trials. Patient responding slightly more to verbal command, appears to track even though not following commands. Creatinine slightly increased with increased diuresis. Chest x-ray shows improved pleural effusions. CT chest yesterday did not show significant effusion but basilar consolidation. 02/20 Patient was extubated yesterday on 10L simple mask, on Precdex, Heparin and Milrinone drips. Tmax 101.1 yesterday Objective Vital Signs / I&O: Vital Signs 02/19/18 08:00 02/19/18 11:00 02/19/18 12:00 Temperature 99.0 F 101.1 F H Pulse Rate 69 95 H 99 H Respiratory Rate 13 27 H Blood Pressure 91/56 L 119/70 Pulse Oximetry 92 L 92 L 02/19/18 13:52 02/19/18 15:00 02/19/18 16:00 Temperature 100.4 F H Pulse Rate 81 85 79 Respiratory Rate 18 17 Blood Pressure 79/58 L Pulse Oximetry 91 L 02/19/18 19:00 02/19/18 20:00 02/19/18 20:06 Temperature 96.8 F L Pulse Rate 58 L 60 60 Respiratory Rate 16 18 Blood Pressure 88/53 L Pulse Oximetry 93 L 02/19/18 20:08 02/19/18 23:00 02/20/18 00:00 Temperature 98.6 F Pulse Rate 74 74 Respiratory Rate 20 Blood Pressure 100/59 L Pulse Oximetry 92 L 98 02/20/18 03:00 02/20/18 04:00 02/20/18 04:22 Temperature 98.1 F Pulse Rate 82 74 75 Respiratory Rate 26 H 18 Blood Pressure 131/61 Pulse Oximetry 94 L Intake & Output 02/19/18 02/20/18 02/20/18 18:59 06:59 18:59 Intake Total 880 / 880 531.90 / 531.90 50 / 50 Output Total 2300 / 2300 1350 / 1350 Balance -1420 / -1420 -818.10 / -818.10 50 / 50 Weight 57.5 kg Intake: IV 300 / 300 531.90 / 531.90 50 / 50 Precedex Inj 200 MCG In NS Inj 50 / 50 50 / 50 50 / 50 48 ML @ 0.2 MCG/KG/HR 2.95 mls/ hr IV.CONT TITRATE PRN Rx#: [id number] Heparin/D5W 25,000 U/250 mL 25, 250 / 250 000 unit In 250 ml @ 800 UNITS/ HR 8 mls/hr IV.CONT TITRATE PRN Rx#:[id number] Primacor Inj 20 MG In NS Inj 80 80 / 80 ML @ Per Protocol IV.CONT .Q0M [facility] Rx#:[id number] Maxipime Inj 2,000 MG In NS Inj 200 / 200 100 ML @ 200 mls/hr IV.SIG Q12H [facility] Rx#:[id number] Gentamicin Inj 38 MG In NS Inj 201.90 / 201.90 100 ML @ 201.9 mls/hr IV.SIG Q12H [facility] Rx#:[id number] Tube Feeding 30 / 30 Water Bolus Amount 550 / 550 Output: Stool 300 / 300 400 / 400 Urine Amount (Catheter) 1999 750 / 750 Indwelling Temp Sensing 1999 750 / 750 Catheter Gastric Drainage 200 / 200 Right Nare Nasogastric Tube 200 / 200 Other: Date of Last Bowel Movement 02/19/18 02/20/18 Result Diagrams: 02/20/18 04:35 02/20/18 04:35 Other Results: Laboratory Results - last 12 hr 02/19/18 02/20/18 02/20/18 23:21 04:35 04:35 WBC 12.9 H RBC 3.18 L Hgb 9.6 L Hct 29.1 L MCV 91.6 MCH 30.2 MCHC 33.0 RDW 17.5 H Plt Count 202 MPV 9.9 Sodium 140 Potassium 3.3 L Chloride 101 Carbon Dioxide 26.2 Anion Gap 13 BUN 60 H Creatinine 1.80 H Estimated GFR 38 L POC Glucose 127 H Random Glucose 133 H Calcium 9.0 Total Bilirubin 1.1 H AST 43 H ALT 20 Alkaline Phosphatase 58 Total Protein 7.5 D Albumin 3.0 L Random Vancomycin 19.5 02/20/18 05:16 WBC RBC Hgb Hct MCV MCH MCHC RDW Plt Count MPV Sodium Potassium Chloride Carbon Dioxide Anion Gap BUN Creatinine Estimated GFR POC Glucose 163 H Random Glucose Calcium Total Bilirubin AST ALT Alkaline Phosphatase Total Protein Albumin Random Vancomycin Imaging: Abdomen/Bladder Ultrasound 02/05/18 00:00 CONCLUSION: 1. No evidence of hydronephrosis. 2. The echogenicity of the kidneys is equal to that of the liver which can be seen with medical renal disease. 3. Simple cyst in right kidney. 4. Suboptimal visualization of the left kidney. 5. Small amount of free fluid along the spleen. This could represent an adjacent pleural effusion. Head CT 02/15/18 12:23 CONCLUSION: 1. Negative CT Head non contrast. . Head MRI 02/16/18 08:28 CONCLUSION: 1. New focus of restricted diffusion high along the right cerebral vertex measuring 8 mm consistent with a new small focal acute infarction. 2. There is a new 5 mm area restricted diffusion high along the left cerebral vertex consistent with a new small focal acute infarction. 3. 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 This area is stable compared to the prior examination. 4. Stable bilateral cortical atrophy and mild chronic white matter changes. 5. Chronic bilateral mastoiditis. Abdomen X-Ray 02/17/18 00:00 CONCLUSION: Nonspecific bowel gas pattern. Chest CT 02/18/18 00:00 CONCLUSION: 1. Increasing basilar and dependent consolidation in both lungs most characteristic of pneumonia or aspiration. 2. Near complete resolution of previous small effusions. 3. Osteopenia with stable compression deformities in the spine. 4. Previous sternotomy with aortic valve replacement. 5. Right-sided central line, ET tube and NG tube in good position. Chest X-Ray 02/20/18 06:00 CONCLUSION: Bilateral infiltrates are noted as above. Objective Remarks: GENERAL: 62-year-old male lying in bed in NAD SKIN: cool and poorly perfused. HEAD: Atraumatic. Normocephalic. EYES: Pupils equal and round, 2 mm and reactive. No injection or drainage. ENT: No nasal bleeding or discharge. Orotracheally intubated NECK: Trachea midline. Supple, no JVD, no adenopathy/thyromegaly CARDIOVASCULAR: RRR. S1, S2. No S4. No murmurs rubs or gallops. Remains on milrinone 0.25 mcg/kg/min RESPIRATORY: B/L equal air entry GASTROINTESTINAL: Abdomen soft, non-tender, nondistended. no guarding. MUSCULOSKELETAL: Extremities with trace bilateral lower extremity edema NEUROLOGICAL: Restless, no focal sensory deficits Assessment and Plan - Assessment and Plan Plan: NEURO/PSYCH: History of stroke in 2015 Neuropathy left upper and lower extremity Chronic low back pain Wean off Precedex drip Goal of RA SS -1. Monitor neuro status 02/15 CT brain: No acute findings. 02/15 EEG : Encephalopathy, no epileptiform activity MRI brain 02/16: New small focal acute infarction right cerebral vertex and also left cerebral vertex. Neuro has followed. Continue ASA. Continue pregabalin 150 mg p.o. twice daily. Hold duloxetine 90 mg p.o. daily. RESP: Acute hypoxic respiratory failure COPD on 2.5 L home O2 Prior tobacco abuse Bilateral pleural effusions Wean down oxygen as garrett keep sats >92% Albuterol/ipratropium aerosols every 6 hours with albuterol aerosols every 2 hours as needed for dyspnea methylprednisolone succinate 40mg IV daily CT of the chest -bibasilar infiltrate CV: V. tach/V. fib arrest NSTEMI Cardiogenic shock Acute systolic heart failure Atrial fibrillation with RVR [place] mechanical aortic valve (09/21/12 Dr. Gonzalez) s/p Tricuspid annuloplasty Wean off milrinone 0.25 mgc/kg/min as tolerated to DC Monitor HR and BP keep MAP>65mmHg s/p cath And PCI -proximal LAD and large diagonal 90% stenosis, 2 BMS stent 02/05, mid LAD vasospasm post PCI Continue aspirin 81 mg daily, clopidogrel 75 mg daily, amiodarone 400mg TID, carvedilol 3.125mg BID Bumetanide 1mg IV q8h, reduce to 1 mg IV q12. Spironolactone 50 mg twice daily Heparin drip currently at 800 units an hour. PTT therapeutic. Continue atorvastatin 40 mg nightly. Off IABP 02/08/18 [place] 01/23/18no vegetation. Normal aortic mechanical valve with trivial aortic insufficiency. Tricuspid annuloplasty. Mild to moderate LV generalized hypokinesis Echo from 02/05: EF <20%, diffuse hypokinesis, bioprosthetic valve Receiving Coordinator is Romana Bartlett GI: Speech eval, diet per speech, if fails will restart tube feeds-Jevity 1.5 Lansoprazole for stress ulcer prophylactic Had normal EGD on 10/21/17 FEN/RENAL: BPH Acute kidney injury-improving Cano due to aggressive diuresis. close monitoring of uop Monitor renal function, I/O's, electrolytes replacement per protocol Renal ultrasound to evaluate for evidence of obstruction -did not show any obstruction Cr increased 1.80 from 1.46 Decrease Bumex 1mg IV daily , Aldactone 50 mg BID. 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 difficile colitis PICC removed Continue IV vancomycin, IV gentamicin and IV cefepime C.diff tx: po vanco + IV flagyl 02/11/18 Infectious disease following 02/18 Sputum: GNR 02/14 Sputum: Pseudomonas 02/11 Sputum cx: Pseudomonas, Kleb pneumonia BC 02/11, 02/06: NGTD HEME: Chronic anemia Iron deficiency Continue ferrous sulfate 300 milligrams liquid daily. Received 2 units packed red cells in [place] ER due to anemia and shock. Monitor CBC ENDO: SSI to maintain euglycemia PROPH: Heparin drip. Protonix for stress ulcer prophylaxis ACCESS: Right radial art line placed in the emergency department 02/04. Left IJ central line placed 02/05/18. d/c Art line. Palliative care is following Level 3
[2018-02-20] MEDS: Chlorhexidine 0.12% Oral Kit 15 ML UDC OROPHARYNG SCH ×2 (08:29→20:51)
[2018-02-20] MEDS: Potassium Chloride 10 MEQ ER Capsule G-TUBE SCH ×2 (08:30→20:50)
[2018-02-20] MEDS: Ferrrous Sulfate 300 MG/5 ML UDC PO SCH (08:30)
[2018-02-20] MEDS: Pregabalin 75 MG Capsule PO SCH ×2 (08:30→20:51)
[2018-02-20] MEDS: Ascorbic Acid 500 MG Tablet NG/OG SCH (08:30)
[2018-02-20] MEDS: Amiodarone 200 MG Tablet G-TUBE SCH ×2 (08:31→20:51)
[2018-02-20] MEDS: Beneprotein Powder Packet G-TUBE SCH ×3 (08:31→17:32)
[2018-02-20] MEDS: MethylPREDNISolone Sod Succinate Inj 40 MG/ML Vial IV.PUSH SCH (08:31)
[2018-02-20] MEDS: Spironolactone 50 MG Tablet PO SCH ×2 (08:31→17:32)
[2018-02-20] MEDS: Hypromellose 0.3% Opth Gel 10 GM Bottle EACH EYE SCH ×2 (08:32→20:53)
[2018-02-20] MEDS: Senna/Docusate Sodium 8.6/50 MG Tablet PO SCH ×2 (08:32→20:51)
--- NOTE | 2018-02-20 12:39 | P.PNID ---
Subjective Remarks: extubated stool up to 700 afebrile BP stable sputum grew PSAE with the same sensitivities Antibiotics: vanco gent cefepime oral vanco iv flagyl Allergies/Adverse Reactions: Allergies No Known Allergies Allergy (Verified 02/04/18 18:10) Objective Vital Signs 02/19/18 13:52 02/19/18 15:00 02/19/18 16:00 Temperature 100.4 F H Pulse Rate 81 85 79 Respiratory Rate 18 17 Blood Pressure 79/58 L Pulse Oximetry 91 L 02/19/18 19:00 02/19/18 20:00 02/19/18 20:06 Temperature 96.8 F L Pulse Rate 58 L 60 60 Respiratory Rate 16 18 Blood Pressure 88/53 L Pulse Oximetry 93 L 02/19/18 20:08 02/19/18 23:00 02/20/18 00:00 Temperature 98.6 F Pulse Rate 74 74 Respiratory Rate 20 Blood Pressure 100/59 L Pulse Oximetry 92 L 98 02/20/18 03:00 02/20/18 04:00 02/20/18 04:22 Temperature 98.1 F Pulse Rate 82 74 75 Respiratory Rate 26 H 18 Blood Pressure 131/61 Pulse Oximetry 94 L 02/20/18 07:00 02/20/18 07:57 02/20/18 08:00 Temperature 98.8 F Pulse Rate 71 98 H Respiratory Rate 26 H Blood Pressure 92/60 L Pulse Oximetry 92 L 92 L 02/20/18 09:02 02/20/18 11:00 02/20/18 12:00 Temperature 98.6 F Pulse Rate 74 75 69 Respiratory Rate 17 21 Blood Pressure 106/66 Pulse Oximetry 98 Intake & Output 02/19/18 02/20/18 02/20/18 18:59 06:59 18:59 Intake Total 880 / 880 531.90 / 531.90 100 / 100 Output Total 2300 / 2300 1350 / 1350 Balance -1420 / -1420 -818.10 / -818.10 100 / 100 Weight 57.5 kg Intake: IV 300 / 300 531.90 / 531.90 100 / 100 Precedex Inj 200 MCG In NS Inj 50 / 50 50 / 50 100 / 100 48 ML @ 0.2 MCG/KG/HR 2.95 mls/ hr IV.CONT TITRATE PRN Rx#: [id number] Heparin/D5W 25,000 U/250 mL 25, 250 / 250 000 unit In 250 ml @ 800 UNITS/ HR 8 mls/hr IV.CONT TITRATE PRN Rx#:[id number] Primacor Inj 20 MG In NS Inj 80 80 / 80 ML @ Per Protocol IV.CONT .Q0M [facility] Rx#:[id number] Maxipime Inj 2,000 MG In NS Inj 200 / 200 100 ML @ 200 mls/hr IV.SIG Q12H [facility] Rx#:[id number] Gentamicin Inj 38 MG In NS Inj 201.90 / 201.90 100 ML @ 201.9 mls/hr IV.SIG Q12H [facility] Rx#:[id number] Tube Feeding 30 / 30 Water Bolus Amount 550 / 550 Output: Stool 300 / 300 400 / 400 Urine Amount (Catheter) 1999 750 / 750 Indwelling Temp Sensing 1999 750 / 750 Catheter Gastric Drainage 200 / 200 Right Nare Nasogastric Tube 200 / 200 Other: Date of Last Bowel Movement 02/19/18 02/20/18 02/20/18 02/18/18 14:44 Sputum - Endotracheal Gram Stain - Final 02/18/18 14:44 Sputum - Endotracheal Sputum Culture - Final Pseudomonas aeruginosa 02/14/18 16:00 Sputum - Tracheal Aspirate Gram Stain - Final 02/14/18 16:00 Sputum - Tracheal Aspirate Sputum Culture - Final Pseudomonas aeruginosa Lab - Hematology Results 02/19/18 02/20/18 03:50 04:35 WBC 15.3 H 12.9 H RBC 3.04 L 3.18 L Hgb 9.3 L 9.6 L Hct 28.0 L 29.1 L MCV 91.9 91.6 MCH 30.7 30.2 MCHC 33.4 33.0 RDW 18.2 H 17.5 H Plt Count 213 202 MPV 10.3 9.9 Lab - Chemistry Results 02/18/18 02/18/18 02/19/18 17:59 23:55 03:50 Sodium 143 Potassium 3.7 Chloride 104 Carbon Dioxide 27.9 Anion Gap 11 BUN 56 H Creatinine 1.46 H Estimated GFR 49 L POC Glucose 147 H 165 H Random Glucose 146 H Calcium 8.8 Magnesium 1.7 Total Bilirubin 0.7 AST 57 H ALT 17 Alkaline Phosphatase 53 Total Protein 6.8 Albumin 2.7 L 02/19/18 02/19/18 02/19/18 05:12 11:27 17:45 Sodium Potassium Chloride Carbon Dioxide Anion Gap BUN Creatinine Estimated GFR POC Glucose 171 H 146 H 156 H Random Glucose Calcium Magnesium Total Bilirubin AST ALT Alkaline Phosphatase Total Protein Albumin 02/19/18 02/20/18 02/20/18 23:21 04:35 05:16 Sodium 140 Potassium 3.3 L Chloride 101 Carbon Dioxide 26.2 Anion Gap 13 BUN 60 H Creatinine 1.80 H Estimated GFR 38 L POC Glucose 127 H 163 H Random Glucose 133 H Calcium 9.0 Magnesium Total Bilirubin 1.1 H AST 43 H ALT 20 Alkaline Phosphatase 58 Total Protein 7.5 D Albumin 3.0 L 02/20/18 11:53 Sodium Potassium Chloride Carbon Dioxide Anion Gap BUN Creatinine Estimated GFR POC Glucose 137 H Random Glucose Calcium Magnesium Total Bilirubin AST ALT Alkaline Phosphatase Total Protein Albumin Imaging: ITS Impressions Abdomen/Bladder Ultrasound 02/05/18 00:00 CONCLUSION: 1. No evidence of hydronephrosis. 2. The echogenicity of the kidneys is equal to that of the liver which can be seen with medical renal disease. 3. Simple cyst in right kidney. 4. Suboptimal visualization of the left kidney. 5. Small amount of free fluid along the spleen. This could represent an adjacent pleural effusion. Head CT 02/15/18 12:23 CONCLUSION: 1. Negative CT Head non contrast. . Head MRI 02/16/18 08:28 CONCLUSION: 1. New focus of restricted diffusion high along the right cerebral vertex measuring 8 mm consistent with a new small focal acute infarction. 2. There is a new 5 mm area restricted diffusion high along the left cerebral vertex consistent with a new small focal acute infarction. 3. 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 This area is stable compared to the prior examination. 4. Stable bilateral cortical atrophy and mild chronic white matter changes. 5. Chronic bilateral mastoiditis. Abdomen X-Ray 02/17/18 00:00 CONCLUSION: Nonspecific bowel gas pattern. Chest CT 02/18/18 00:00 CONCLUSION: 1. Increasing basilar and dependent consolidation in both lungs most characteristic of pneumonia or aspiration. 2. Near complete resolution of previous small effusions. 3. Osteopenia with stable compression deformities in the spine. 4. Previous sternotomy with aortic valve replacement. 5. Right-sided central line, ET tube and NG tube in good position. Chest X-Ray 02/20/18 06:00 CONCLUSION: Bilateral infiltrates are noted as above. Physical Exam: GENERAL: extubated. On NC O2 Confused SKIN: Warm and dry. HEAD: Atraumatic. Normocephalic. EYES: Pupils equal and round. No scleral icterus. No injection or drainage. ENT: No nasal bleeding or discharge. Mucous membranes pale NECK: Trachea midline. No JVD. CARDIOVASCULAR: Regular rate and rhythm. + diastolic blowing murmur on aortic valve point 1-2/6 today RESPIRATORY: No accessory muscle use. b/l rales to auscultation. Breath sounds equal bilaterally. GASTROINTESTINAL: Abdomen soft, tight, distended and tender . Hepatic and splenic margins not palpable. liquid brown stool in the dignishield bag : roberson in place with good amount of urine MUSCULOSKELETAL: Extremities without clubbing, cyanosis, or edema. No obvious deformities. warmt o cool to touch feet NEUROLOGICAL: moves around, eyes opens MOves all 4 extremeties to command but is quite confused PSYCHIATRIC:unable to assess Assessment and Plan - Plan Sepsis C.diff ? VAP ; PSAE, KLEb - new infiltrates and difficulty weaning - CT and CXR look worse, though resp status improved with Previous MSSA sepsis with presumed PVE of aortic valve prosthesis, on treatment - tx included vanco+ gent w/o rifampin Acute renal insufficiency, improving slowly GFR CHF EF < 20 % sp OR troponin peaked @ 32 cont vanco + gent as a part of PVE Rx will not add rifampin while on amio 2/2 interaction with amiodarone Rifampin can be added if amiodarone is discontinued ccont cefepime and complete 7-14 days of PNA treatment Worsening leukocytosis, C.diff is likely the source Ileus New stroke worsening renal status dc gentamicin, vanco FU renal fnx will switch to cefazoline + gent + rif (if no amio) once complleted tx cont C.diff tx: po vanco resume IV flagyl rechk C.diff dw @ b/s
[2018-02-20] MEDS ORDERED: Vancomycin Inj 750 MG in Sodium Chlor 0.9% Inj 250 ML IV.SIG ONE (14:00)
--- NOTE | 2018-02-20 15:00 | P.PNPAL ---
Reason for Visit Reason for visit: a. To assist with evaluation and management of symptoms including: pain, dyspnea, weakness b. To assist medical decision maker(s) with: better understanding of current medical conditions; weighing benefits/burdens of medical treatment options; making medical treatment decisions. Subjective Subjective/Interval History: Pt was extubated 02/19. Now on 10L simple mask. sat 98%. Failed swallow eval. Not able to participate in PT, too confused and agitated. Still on milrinone gtt, increased bumex. CXR today showing mild interstitial infilrate, suspected small left effusion. CT chest 02/18 showed consolidation bilat lungs. Pt lying in bed, at bedside. On my eval he does respond to verbal stimulation but not meaningfully - appears to become agitated. Seems agitated during abd palpation. Still with copious liquid stool. abd mildly distended. TF running 10ml/hr. WBC 12.9. Family/Friend Interactions: at bedside. Discussed: - update on medical status - possible scenarios with ongoing aggressive care including need for PEG if no improvement in swallowing, poss need for reintubation and tracheostomy - goals of care - "he always does everything twice" and "one day at a time" - she voiced no concerns or questions - palliative care info provided optimistic and expressing continued aggressive goals. Objective Vital Signs: Vital Signs 02/19/18 15:00 02/19/18 16:00 02/19/18 19:00 Temperature 100.4 F H Pulse Rate 85 79 58 L Respiratory Rate 17 Blood Pressure 79/58 L Pulse Oximetry 91 L 02/19/18 20:00 02/19/18 20:06 02/19/18 20:08 Temperature 96.8 F L Pulse Rate 60 60 Respiratory Rate 16 18 Blood Pressure 88/53 L Pulse Oximetry 93 L 92 L 02/19/18 23:00 02/20/18 00:00 02/20/18 03:00 Temperature 98.6 F Pulse Rate 74 74 82 Respiratory Rate 20 Blood Pressure 100/59 L Pulse Oximetry 98 02/20/18 04:00 02/20/18 04:22 02/20/18 07:00 Temperature 98.1 F Pulse Rate 74 75 71 Respiratory Rate 26 H 18 Blood Pressure 131/61 Pulse Oximetry 94 L 02/20/18 07:57 02/20/18 08:00 02/20/18 09:02 Temperature 98.8 F Pulse Rate 98 H 74 Respiratory Rate 26 H 17 Blood Pressure 92/60 L Pulse Oximetry 92 L 92 L 02/20/18 11:00 02/20/18 12:00 Temperature 98.6 F Pulse Rate 75 69 Respiratory Rate 21 Blood Pressure 106/66 Pulse Oximetry 98 Intake & Output 02/19/18 02/20/18 02/20/18 18:59 06:59 18:59 Intake Total 880 / 880 531.90 / 531.90 100 / 100 Output Total 2300 / 2300 1350 / 1350 Balance -1420 / -1420 -818.10 / -818.10 100 / 100 Weight 57.5 kg Intake: IV 300 / 300 531.90 / 531.90 100 / 100 Precedex Inj 200 MCG In NS Inj 50 / 50 50 / 50 100 / 100 48 ML @ 0.2 MCG/KG/HR 2.95 mls/ hr IV.CONT TITRATE PRN Rx#: [id number] Heparin/D5W 25,000 U/250 mL 25, 250 / 250 000 unit In 250 ml @ 800 UNITS/ HR 8 mls/hr IV.CONT TITRATE PRN Rx#:[id number] Primacor Inj 20 MG In NS Inj 80 80 / 80 ML @ Per Protocol IV.CONT .Q0M ADRIEN Rx#:[id number] Maxipime Inj 2,000 MG In NS Inj 200 / 200 100 ML @ 200 mls/hr IV.SIG Q12H ADRIEN Rx#:[id number] Gentamicin Inj 38 MG In NS Inj 201.90 / 201.90 100 ML @ 201.9 mls/hr IV.SIG Q12H ADRIEN Rx#:[id number] Tube Feeding 30 / 30 Water Bolus Amount 550 / 550 Output: Stool 300 / 300 400 / 400 Urine Amount (Catheter) 1999 750 / 750 Indwelling Temp Sensing 1999 750 / 750 Catheter Gastric Drainage 200 / 200 Right Nare Nasogastric Tube 200 / 200 Other: Date of Last Bowel Movement 02/19/18 02/20/18 02/20/18 Physical Exam: CONSTITUTIONAL/GENERAL: ill appearing and cachectic male TUBES/LINES/DRAINS: roberson, simple mask, OGT, Left IJ, right arterial line, rectal bag SKIN: Sallow. No jaundice, rashes, or lesions. No wounds seen anteriorly. Not diaphoretic. HEAD: Atraumatic. Normocephalic. + temporal wasting EYES: PERRL. eyes glassy. No scleral icterus. No injection or drainage. Fundi not examined. ENT: Nose without bleeding or purulent drainage. dark spots ?blood in pharynx and hard palate CARDIOVASCULAR: tachycardic without murmurs, gallops, or rubs. + click. RESPIRATORY/CHEST: Symmetric, unlabored respirations. lung sounds diminished GASTROINTESTINAL: Abdomen soft, mildly distended, TTP. No hepato-splenomegaly, or palpable masses. Bowel sounds faint. +rectal bag with stool GENITOURINARY: Without palpable bladder distension. Roberson catheter in place. MUSCULOSKELETAL: Trace BUE edema. + BUE restraints. Extremities without clubbing, cyanosis. No mottling or clubbing. NEUROLOGICAL: agitated/restless when awoken, no purposeful movement, does not follow commands. Diagnostic Tests Laboratory: Laboratory Results - last 72 hr 02/17/18 02/17/18 02/17/18 12:44 14:43 17:45 WBC RBC Hgb Hct MCV MCH MCHC RDW Plt Count MPV Neut % (Auto) Lymph % (Auto) [place] % (Auto) Eos % (Auto) Baso % (Auto) Neut # (Auto) Lymph # (Auto) [place] # (Auto) Eos # (Auto) Baso # (Auto) WBC Differential Differential Comment APTT Puncture Site Patient Temperature O2 Saturation ABG pH ABG pCO2 ABG pO2 ABG HCO3 ABG O2 Content ABG Base Excess ABG Methemoglobin Frankie Test Hemoglobin Carboxyhemoglobin O2 Delivery Device Vent Setting Inspired O2 Critical Value Sodium Potassium Chloride Carbon Dioxide Anion Gap BUN Creatinine Estimated GFR POC Glucose 184 H Random Glucose Calcium Phosphorus Magnesium Total Bilirubin AST ALT Alkaline Phosphatase Total Protein Albumin Gentamicin Trough 1.1 Vancomycin Trough 27.4 H Random Vancomycin 02/17/18 02/18/18 02/18/18 23:37 04:10 04:10 WBC 17.0 H RBC 3.05 L Hgb 9.2 L Hct 28.5 L MCV 93.2 MCH 30.1 MCHC 32.4 RDW 17.9 H Plt Count 221 MPV 9.6 Neut % (Auto) 95.0 H Lymph % (Auto) 1.7 L [place] % (Auto) 3.2 Eos % (Auto) 0.0 Baso % (Auto) 0.1 Neut # (Auto) 16.1 H Lymph # (Auto) 0.3 L [place] # (Auto) 0.5 Eos # (Auto) 0.0 Baso # (Auto) 0.0 WBC Differential . Differential Comment Auto diff final APTT 48.5 H D Puncture Site Patient Temperature O2 Saturation ABG pH ABG pCO2 ABG pO2 ABG HCO3 ABG O2 Content ABG Base Excess ABG Methemoglobin Frankie Test Hemoglobin Carboxyhemoglobin O2 Delivery Device Vent Setting Inspired O2 Critical Value Sodium Potassium Chloride Carbon Dioxide Anion Gap BUN Creatinine Estimated GFR POC Glucose 160 H Random Glucose Calcium Phosphorus Magnesium Total Bilirubin AST ALT Alkaline Phosphatase Total Protein Albumin Gentamicin Trough Vancomycin Trough Random Vancomycin 02/18/18 02/18/18 02/18/18 04:10 05:48 09:15 WBC RBC Hgb Hct MCV MCH MCHC RDW Plt Count MPV Neut % (Auto) Lymph % (Auto) [place] % (Auto) Eos % (Auto) Baso % (Auto) Neut # (Auto) Lymph # (Auto) [place] # (Auto) Eos # (Auto) Baso # (Auto) WBC Differential Differential Comment APTT Puncture Site Right radial Patient Temperature 98.6 O2 Saturation 89 L* ABG pH 7.46 H ABG pCO2 39 ABG pO2 62 ABG HCO3 27 H ABG O2 Content 11.3 L ABG Base Excess 3.1 H ABG Methemoglobin 1.6 Frankie Test Present Hemoglobin 9.0 L Carboxyhemoglobin 1.3 O2 Delivery Device Ventilator Vent Setting Inspired O2 40 Critical Value Yes Sodium 146 H Potassium 3.5 Chloride 108 H Carbon Dioxide 28.1 Anion Gap 10 BUN 48 H Creatinine 1.24 Estimated GFR 59 L POC Glucose 168 H Random Glucose 153 H Calcium 9.0 Phosphorus 2.5 Magnesium 1.8 Total Bilirubin 0.7 AST 102 H ALT 16 Alkaline Phosphatase 53 Total Protein 6.6 Albumin 2.7 L Gentamicin Trough Vancomycin Trough Random Vancomycin 36.3 02/18/18 02/18/18 02/18/18 12:08 17:59 23:55 WBC RBC Hgb Hct MCV MCH MCHC RDW Plt Count MPV Neut % (Auto) Lymph % (Auto) [place] % (Auto) Eos % (Auto) Baso % (Auto) Neut # (Auto) Lymph # (Auto) [place] # (Auto) Eos # (Auto) Baso # (Auto) WBC Differential Differential Comment APTT Puncture Site Patient Temperature O2 Saturation ABG pH ABG pCO2 ABG pO2 ABG HCO3 ABG O2 Content ABG Base Excess ABG Methemoglobin Frankie Test Hemoglobin Carboxyhemoglobin O2 Delivery Device Vent Setting Inspired O2 Critical Value Sodium Potassium Chloride Carbon Dioxide Anion Gap BUN Creatinine Estimated GFR POC Glucose 157 H 147 H 165 H Random Glucose Calcium Phosphorus Magnesium Total Bilirubin AST ALT Alkaline Phosphatase Total Protein Albumin Gentamicin Trough Vancomycin Trough Random Vancomycin 02/19/18 02/19/18 02/19/18 03:50 03:50 05:12 WBC 15.3 H RBC 3.04 L Hgb 9.3 L Hct 28.0 L MCV 91.9 MCH 30.7 MCHC 33.4 RDW 18.2 H Plt Count 213 MPV 10.3 Neut % (Auto) Lymph % (Auto) [place] % (Auto) Eos % (Auto) Baso % (Auto) Neut # (Auto) Lymph # (Auto) [place] # (Auto) Eos # (Auto) Baso # (Auto) WBC Differential Differential Comment APTT Puncture Site Patient Temperature O2 Saturation ABG pH ABG pCO2 ABG pO2 ABG HCO3 ABG O2 Content ABG Base Excess ABG Methemoglobin Frankie Test Hemoglobin Carboxyhemoglobin O2 Delivery Device Vent Setting Inspired O2 Critical Value Sodium 143 Potassium 3.7 Chloride 104 Carbon Dioxide 27.9 Anion Gap 11 BUN 56 H Creatinine 1.46 H Estimated GFR 49 L POC Glucose 171 H Random Glucose 146 H Calcium 8.8 Phosphorus Magnesium 1.7 Total Bilirubin 0.7 AST 57 H ALT 17 Alkaline Phosphatase 53 Total Protein 6.8 Albumin 2.7 L Gentamicin Trough Vancomycin Trough Random Vancomycin 02/19/18 02/19/18 02/19/18 06:15 11:27 17:45 WBC RBC Hgb Hct MCV MCH MCHC RDW Plt Count MPV Neut % (Auto) Lymph % (Auto) [place] % (Auto) Eos % (Auto) Baso % (Auto) Neut # (Auto) Lymph # (Auto) [place] # (Auto) Eos # (Auto) Baso # (Auto) WBC Differential Differential Comment APTT 45.5 H Puncture Site Patient Temperature O2 Saturation ABG pH ABG pCO2 ABG pO2 ABG HCO3 ABG O2 Content ABG Base Excess ABG Methemoglobin Frankie Test Hemoglobin Carboxyhemoglobin O2 Delivery Device Vent Setting Inspired O2 Critical Value Sodium Potassium Chloride Carbon Dioxide Anion Gap BUN Creatinine Estimated GFR POC Glucose 146 H 156 H Random Glucose Calcium Phosphorus Magnesium Total Bilirubin AST ALT Alkaline Phosphatase Total Protein Albumin Gentamicin Trough Vancomycin Trough Random Vancomycin 02/19/18 02/20/18 02/20/18 23:21 04:35 04:35 WBC 12.9 H RBC 3.18 L Hgb 9.6 L Hct 29.1 L MCV 91.6 MCH 30.2 MCHC 33.0 RDW 17.5 H Plt Count 202 MPV 9.9 Neut % (Auto) Lymph % (Auto) [place] % (Auto) Eos % (Auto) Baso % (Auto) Neut # (Auto) Lymph # (Auto) [place] # (Auto) Eos # (Auto) Baso # (Auto) WBC Differential Differential Comment APTT Puncture Site Patient Temperature O2 Saturation ABG pH ABG pCO2 ABG pO2 ABG HCO3 ABG O2 Content ABG Base Excess ABG Methemoglobin Frankie Test Hemoglobin Carboxyhemoglobin O2 Delivery Device Vent Setting Inspired O2 Critical Value Sodium 140 Potassium 3.3 L Chloride 101 Carbon Dioxide 26.2 Anion Gap 13 BUN 60 H Creatinine 1.80 H Estimated GFR 38 L POC Glucose 127 H Random Glucose 133 H Calcium 9.0 Phosphorus Magnesium Total Bilirubin 1.1 H AST 43 H ALT 20 Alkaline Phosphatase 58 Total Protein 7.5 D Albumin 3.0 L Gentamicin Trough Vancomycin Trough Random Vancomycin 19.5 02/20/18 02/20/18 02/20/18 05:16 11:47 11:53 WBC RBC Hgb Hct MCV MCH MCHC RDW Plt Count MPV Neut % (Auto) Lymph % (Auto) [place] % (Auto) Eos % (Auto) Baso % (Auto) Neut # (Auto) Lymph # (Auto) [place] # (Auto) Eos # (Auto) Baso # (Auto) WBC Differential Differential Comment APTT 43.7 H Puncture Site Patient Temperature O2 Saturation ABG pH ABG pCO2 ABG pO2 ABG HCO3 ABG O2 Content ABG Base Excess ABG Methemoglobin Frankie Test Hemoglobin Carboxyhemoglobin O2 Delivery Device Vent Setting Inspired O2 Critical Value Sodium Potassium Chloride Carbon Dioxide Anion Gap BUN Creatinine Estimated GFR POC Glucose 163 H 137 H Random Glucose Calcium Phosphorus Magnesium Total Bilirubin AST ALT Alkaline Phosphatase Total Protein Albumin Gentamicin Trough Vancomycin Trough Random Vancomycin Result Diagrams: 02/27/18 02:28 02/27/18 02:28 Microbiology: Microbiology 02/18/18 14:44 Gram Stain - Final Sputum - Endotracheal Sputum Culture - Final Pseudomonas aeruginosa 02/14/18 16:00 Gram Stain - Final Sputum - Tracheal Aspirate Sputum Culture - Final Pseudomonas aeruginosa Imaging: ITS Impressions Abdomen/Bladder Ultrasound 02/05/18 00:00 CONCLUSION: 1. No evidence of hydronephrosis. 2. The echogenicity of the kidneys is equal to that of the liver which can be seen with medical renal disease. 3. Simple cyst in right kidney. 4. Suboptimal visualization of the left kidney. 5. Small amount of free fluid along the spleen. This could represent an adjacent pleural effusion. Head CT 02/15/18 12:23 CONCLUSION: 1. Negative CT Head non contrast. . Head MRI 02/16/18 08:28 CONCLUSION: 1. New focus of restricted diffusion high along the right cerebral vertex measuring 8 mm consistent with a new small focal acute infarction. 2. There is a new 5 mm area restricted diffusion high along the left cerebral vertex consistent with a new small focal acute infarction. 3. 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 This area is stable compared to the prior examination. 4. Stable bilateral cortical atrophy and mild chronic white matter changes. 5. Chronic bilateral mastoiditis. Abdomen X-Ray 02/17/18 00:00 CONCLUSION: Nonspecific bowel gas pattern. Chest CT 02/18/18 00:00 CONCLUSION: 1. Increasing basilar and dependent consolidation in both lungs most characteristic of pneumonia or aspiration. 2. Near complete resolution of previous small effusions. 3. Osteopenia with stable compression deformities in the spine. 4. Previous sternotomy with aortic valve replacement. 5. Right-sided central line, ET tube and NG tube in good position. Chest X-Ray 02/20/18 06:00 CONCLUSION: Bilateral infiltrates are noted as above. Procedures: 02/05 left IJ placement 02/05 retrograde left heart cath, stent placement, IABP placement 02/05 intubated 02/19 extubated Assessment and Plan - Disease Oriented Problem List (1) Hypokalemia (2) Cardiogenic shock (3) CAD (coronary artery disease) (4) Ventricular fibrillation - Symptom Scale (3) Debility 0-10 Scale: Unable to quantify Pertinent Non-Medical Issues: Psychosocial: On disability. 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 Spiritual: Worship, non-baptism. [facility] has visited, they also have alevism pcts visiting. Legal: Pt not capacitated to make medical decisions. Unclear if he will regain capacity. Per [place] statutes decision making would fall to as proxy. Ethical issues impacting care: none identified Important Contacts: Maria Isabel Tolentino [phone] sister Yvonne Valdivia [phone] Prognosis: 62 yo male s/p aortic valve replacement 2012 who suffered significant NSTEMI, EF <20% on presentation, troponins up to 32. Echo also showed global hypokinesis. Not clear how much of heart failure was present prior to NSTEMI. s /p heart cath, LAD stenting complicated by vasospasm, placement and subsequent removal of IABP. 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 He has had several runs of v fib and v tach requiring chest compressions, shocks. He has underlying COPD and was having activity intolerance prior to this event. he has been extubated but has not passed swallow eval. His prognosis for recovery is poor; chances of returning to baseline extremely poor. Unlikely he would tolerate rehab. He remains at high risk for continued complications including but not limited to recurrent arrhythmias, multi-organ injury; and at risk for further decline. He is hospice appropriate should goals be in line with comfort. Code Status: Full Code Plan: - LEGAL DECISON MAKER - Pt not capacitated to make medical decisions, unclear if he will regain this capacity. [place] statutes decision making would fall to as proxy. Family working together to make decisions - , wifes RN sister, and pt's sister. - CODE STATUS- full code - GOALS - verbalizes aggressive goals. She is optimistic feels God will heal her . - SYMPTOMS - * dyspnea - multifactorial - hx COPD, EF < 20%, class 4 heart failure. extubated 02/19, on 10L simple mask. CXR 02/20 shows bilat infiltrates.still on milrinone gtt. he is at risk for reintubation. switched to precedex gtt. PRN duonebs, scheduled duonebs, bumex 1mg q8h * pain - multifactorial, lines, ET tube, catheters, hx chronic back pain 2/2 "chronic fractures." sees pain mgmt, been on hydrocodone , reportedly same dosage and frequency for 6 years. on lyrica * debility/weakness - multifactorial. profoundly emaciated and ill appearing, per this is his usual appearance. NPO per MANAGER SOLUTION, if no improvement he will need PEG. unable to participate in PT. cardiac function prob would not allow aggressive rehab. - eforsce verified - d/w MIKEY Carroll - Palliative care will continue to follow during hospital course as condition evolves, to assist patient/decision-maker with understanding of medical conditions, weighing benefits/burdens of treatment options, for clarification of goals of treatment. Additionally will assist with any symptoms of palliative concern Attestation Collaborating MD Comments: Chart reviewed. Case discussed with palliative care MANAGER UROLOGY. Above note reviewed and I concur. . Attestation: To help prompt me to consider important information that might be impacting today's encounter and assessment, information from prior notes written by myself or my colleagues may have been "brought forward" into today's note. My signature on this note, however, is an attestation that I personally performed the exam, history, and/or decision-making noted today, and, unless otherwise indicated, the interactions with patient, family, and staff as well as the review of records all occurred today. I also attest that the listed assessment and stated plan reflect my best clinical judgment today based on the combination of historical information, prior notes, and today's exam/ interactions. When time spent is documented, it refers only to time spent today by the signer, or if indicated, combined time spent today by collaborating physician/nurse practitioner.
[2018-02-20] MEDS: Milrinone Inj 20 MG in Sodium Chlor 0.9% Inj 80 ML IV.CONT SCH (23:41)
[2018-02-21 04:27] LABS: Baso % (Auto) 0.1 % (0.0-2.0); Hematocrit 30.1 % (39.0-51.0); Lymph # (Auto) 0.7 th/mm3 (1.0-4.8); Lymph % (Auto) 4.1 % (9.0-44.0); Mean Corpuscular HGB Conc 33.1 % (32.0-36.0); Mean Corpuscular Hemoglobin 29.9 pg (27.0-34.0); Mean Corpuscular Volume 90.3 fL (80.0-100.0); Mono # (Auto) 1.3 th/mm3 (0.0-0.9); Neut # (Auto) 14.2 th/mm3 (1.8-7.7); Neut % (Auto) 87.8 % (16.0-70.0); Platelet Count 193 th/mm3 (150-450); Red Blood Count 3.33 mil/mm3 (4.50-5.90); Red Cell Distribution Width 17.9 % (11.6-17.2); White Blood Count 16.2 th/mm3 (4.0-11.0)
[2018-02-21] MEDS: Oral Hygiene Kit OROPHARYNG SCH ×3 (04:56→15:25)
[2018-02-21 04:58] LABS: Alanine Aminotransferase 20 U/L (12-78); Albumin 2.8 g/dL (3.4-5.0); Alkaline Phosphatase 55 U/L (45-117); Anion Gap 10 meq/L (5-15); Aspartate Aminotransferase 28 U/L (15-37); Blood Urea Nitrogen 66 mg/dL (7-18); Carbon Dioxide 26.8 meq/L (21.0-32.0); Chloride 107 meq/L (98-107); Glomerular Filtration Rate 33 mL/min (>89); Glucose,Random 109 mg/dL (74-106); Magnesium 2.1 mg/dL (1.5-2.5); Phosphorus 2.5 mg/dL (2.5-4.9); Sodium 144 meq/L (136-145); Total Protein 6.9 g/dL (6.4-8.2)
[2018-02-21 05:07] LABS: Potassium 2.9 meq/L (3.5-5.1)
[2018-02-21] MEDS: Potassium Chlor 40 mEq Premix 40 MEQ/100 ML PIGGYBACK IV.SIG PRN ×2 (05:36→09:54)
[2018-02-21] MEDS: Insulin NovoLOG Aspart Correctional Sugar Inj SQ SCH ×3 (05:44→17:55)
[2018-02-21] MEDS: MethylPREDNISolone Sod Succinate Inj 40 MG/ML Vial IV.PUSH SCH (09:16)
[2018-02-21] MEDS: Pregabalin 75 MG Capsule PO SCH ×2 (09:16→22:20)
[2018-02-21] MEDS: Senna/Docusate Sodium 8.6/50 MG Tablet PO SCH ×2 (09:16→22:19)
[2018-02-21] MEDS: Ferrrous Sulfate 300 MG/5 ML UDC PO SCH (09:16)
[2018-02-21] MEDS: Ascorbic Acid 500 MG Tablet NG/OG SCH (09:17)
[2018-02-21] MEDS: Amiodarone 200 MG Tablet G-TUBE SCH ×2 (09:17→22:18)
[2018-02-21] MEDS: Hypromellose 0.3% Opth Gel 10 GM Bottle EACH EYE SCH ×2 (09:23→22:18)
[2018-02-21] MEDS: Beneprotein Powder Packet G-TUBE SCH ×3 (09:23→17:50)
[2018-02-21] MEDS: Spironolactone 50 MG Tablet PO SCH ×2 (09:24→17:52)
[2018-02-21] MEDS: Potassium Chloride 10 MEQ ER Capsule G-TUBE SCH ×2 (09:24→22:23)
[2018-02-21] MEDS: Chlorhexidine 0.12% Oral Kit 15 ML UDC OROPHARYNG SCH ×2 (09:24→20:11)
--- NOTE | 2018-02-21 13:20 | P.PNCC ---
Subjective Subjective Remarks/Hospital Course: 62-year-old male with past medical history of [place] mechanical aortic valve (09/21/12 Dr. Gonzalez), on chronic anticoagulation with warfarin, atrial fibrillation postop from AVR , COPD on 2.5 L home O2, stroke in 2015 resulting in left-sided sensory deficits and neuropathy, osteoporosis with chronic low back pain. He was recently admitted to [facility] from 01/23 through 01/31/18 for MSSA bacteremia. It is believed that the original source of infection was a wound on his right index finger when electric drill slipped and created a puncture wound. He was discharged with right upper extremity PICC line receiving cefazolin 2 g IV every 8 hours and gentamicin 210 mg IV daily. He states that home health administered antibiotics at 17:00 and shortly thereafter he began having chills and rigors and sought medical attention at [facility]. He had no rash. Upon arrival, he was hypotensive in the low 80s. He was given 2 L S bolus but remained hypotensive so was started on Levophed. He then developed heart rate in the 140s, reportedly atrial flutter so he was started on Amiodarone drip in [place] and converted to sinus rhythm. He was transfused 2 units PRBC due to Hgb 9.3. His stool was nonbloody nonmelena but was Hemoccult positive. He was given zosyn and vancomycin. Critical care medicine was then contacted and accepted patient for transfer to [facility]. He denies tenderness/redness/drainage at PICC site. Aside from mechanical aortic valve, he has no other hardware or indwelling devices. He denies headache, cough, dysuria. He has had a few loose stools at home, but stools have sometimes been formed. He denies chest pain, does report some SOB. EKG at [place] had marked inferolateral ischemic changes. Obtained EKG upon arrival to [facility] which is improved. SUBJ 02/05: Patient remains critical ill appearing, complaints of chest tightness but denies pain. Remains on 8 mcg/min of Levophed to maintain map about 65. However increasing shortness of breath. Chest x-ray shows increasing pulmonary edema. Troponin was 27.5 currently on IV heparin therapeutic. Cardiology consult is pending at this time. I will stop on maintenance fluids give 40 mg IV Lasix and IV albumin 25 g 1. Patient is very critical patient and updated at the bedside 02/06: to denture laboratory technician last night for [facility] with LAD stent complicated by vasospasm of the LAD. IABP placed. patient emergently intubated for acute hypoxic respiratory failure secondary to cardiogenic shock and pulmonary edema. started on milrinone at 0.375 mcg/kg/min and levophed. bumex drip started. remains critically ill. 02/07: Remains critically ill remains on Levophed and milrinone. Currently diuresing well with Bumex drip. IABP in place management per cardiology-good waveform and augmentation. Chest x-ray shows adequate positioning of IABP, diffuse bilateral pulmonary edema 02/08: Remains critical but showing some signs of improvement. Diuresing very well on Bumex infusion. Remains on Levophed and milrinone. IABP one-to-one with good augmentation management per cardiology. Chest x-ray shows improving edema but with persistent bilateral effusions. Will initiate weaning trials if tolerated 02/09: Still remains on pressors, unable to wean Levophed below 2 mcg/min. Milrinone currently on 0.375 mcg/kg/min. IABP removed yesterday. On sedation hold patient wakes up but remains lethargic. Weakly squeezes hand. Urine output excellent on Bumex, 4 L output in 24 hours. Will attempt CPAP today 02/10: Multiple episodes of V. fib V. tach arrest yesterday morning. Successfully resuscitated. Yesterday night had two-minute V. fib arrest return of spontaneous circulation in sinus rhythm after DC cardioversion 1. Currently remains on milrinone and low-dose Levophed. I will try to wean off Levophed introduce low-dose beta-rasheed due to recurrent arrhythmia. Keep potassium more than 4 magnesium more than 2 02/11: Patient still critical and cardiogenic shock requiring Levophed and milrinone. Urine output improved with adding Diamox. Approximately 2 L urine output in 24 hours, creatinine remained stable. Oxygenation slightly improved FiO2 reduced to 70% now. Overall prognosis remains poor family wants to continue aggressive care 02/12: Remains critical but slight improvement in oxygenation. But continues to require Levophed and milrinone the low-dose. Urine output remains adequate. Chest x-ray shows interval improvement. Creatinine remains stable to slightly improved. Add IV albumin to improve blood pressure and to promote diuresis. 02/13 Patient remains intubated and sedated with Versed and fentanyl. Afebrile, off Levophed remains on Milrinone and Heparin drip. 02/14: Hypothermic overnight. Remains on milrinone and heparin drips. Tolerating tube feeds at 20 cc now. Positive BM. No changes neurologically 02/15 Patient remains sedated with Versed and Fentanyl drips, on Milrinone 0.5. 02/16 Patient remains intubated sedated with Versed and Fentanyl infusion. On Milrinone and Heparin drips. CT brain yesterday showed no acute findings. Afebrile. 02/17 Patient remains sedated and intubated. Afebrile, On Milrinone and Heparin drip. 02/18: Remains critical continues to require milrinone. Urine output adequate. Chest x-ray shows bilateral infiltrate effusion. CT chest to better define effusions and infiltrate. Increase Bumex to 1 mg every 8 hours. Patient is persistently weak, will attempt SBT unlikely to be successfully extubated at this time. Most likely will need tracheostomy if family desires aggressive care 02/19: Remains intubated sedated with Versed and fentanyl. Transition to Precedex to facilitate weaning trials. Patient responding slightly more to verbal command, appears to track even though not following commands. Creatinine slightly increased with increased diuresis. Chest x-ray shows improved pleural effusions. CT chest yesterday did not show significant effusion but basilar consolidation. 02/20 Patient was extubated yesterday on 10L simple mask, on Precdex, Heparin and Milrinone drips. Tmax 101.1 yesterday SUBJECTIVE: 02/21: Febrile. Currently on 5 L nasal cannula. Continues on heparin drip with 500 units an hour. Received bumetanide 1 mg 1 today. Positive BM Objective Vital Signs / I&O: Vital Signs 02/20/18 15:00 02/20/18 15:28 02/20/18 15:30 Temperature Pulse Rate 62 62 60 Respiratory Rate 26 H 16 27 H Blood Pressure 97/67 L 101/66 Pulse Oximetry 97 99 02/20/18 16:00 02/20/18 16:31 02/20/18 16:35 Temperature 97.5 F L Pulse Rate 65 59 L 61 Respiratory Rate 13 23 35 H Blood Pressure 104/63 69/45 L 93/52 L Pulse Oximetry 96 78 L 85 L 02/20/18 17:00 02/20/18 17:30 02/20/18 18:00 Temperature Pulse Rate 59 L 63 64 Respiratory Rate 26 H 27 H 37 H Blood Pressure 85/51 L 97/61 L 81/53 L Pulse Oximetry 100 96 99 02/20/18 18:20 02/20/18 18:21 02/20/18 18:23 Temperature Pulse Rate 64 65 64 Respiratory Rate 38 H 29 H 28 H Blood Pressure 84/52 L 79/53 L 89/55 L Pulse Oximetry 100 98 91 L 02/20/18 18:30 02/20/18 18:45 02/20/18 19:00 Temperature Pulse Rate 65 67 72 Respiratory Rate 24 24 23 Blood Pressure 92/56 L 88/53 L 91/57 L Pulse Oximetry 98 98 96 02/20/18 19:15 02/20/18 19:30 02/20/18 19:45 Temperature Pulse Rate 79 78 79 Respiratory Rate 21 27 H 27 H Blood Pressure 90/57 L 97/61 L 96/61 L Pulse Oximetry 96 97 92 L 02/20/18 20:00 02/20/18 20:15 02/20/18 20:16 Temperature Pulse Rate 78 75 89 Respiratory Rate 32 H 30 H 22 Blood Pressure 97/60 L 94/54 L Pulse Oximetry 99 02/20/18 20:19 02/20/18 20:30 02/20/18 20:45 Temperature Pulse Rate 79 77 Respiratory Rate 32 H 34 H Blood Pressure 96/61 L 88/51 L Pulse Oximetry 99 99 88 L 02/20/18 21:00 02/20/18 21:15 02/20/18 21:30 Temperature 98.7 F Pulse Rate 80 78 83 Respiratory Rate 26 H 25 H 23 Blood Pressure 96/60 L 98/60 L 100/60 Pulse Oximetry 88 L 96 99 02/20/18 21:45 02/20/18 22:00 02/20/18 22:15 Temperature Pulse Rate 82 84 83 Respiratory Rate 25 H 32 H 31 H Blood Pressure 100/64 100/64 89/57 L Pulse Oximetry 97 99 89 L 02/20/18 22:30 02/20/18 22:45 08/06/18 23:00 Temperature Pulse Rate 85 83 82 Respiratory Rate 23 24 22 Blood Pressure 101/63 97/64 L 99/64 L Pulse Oximetry 100 93 L 100 02/20/18 23:15 02/20/18 23:30 02/20/18 23:45 Temperature Pulse Rate 82 83 83 Respiratory Rate 28 H 24 23 Blood Pressure 99/62 L 100/62 103/64 Pulse Oximetry 97 96 97 02/21/18 00:00 02/21/18 00:07 02/21/18 00:15 Temperature Pulse Rate 88 86 Respiratory Rate 25 H 25 H Blood Pressure 99/63 L 99/62 L Pulse Oximetry 96 99 97 02/21/18 00:30 02/21/18 00:45 02/21/18 01:00 Temperature Pulse Rate 87 86 90 Respiratory Rate 25 H 26 H 29 H Blood Pressure 100/62 104/64 104/63 Pulse Oximetry 97 96 95 02/21/18 01:15 02/21/18 01:30 02/21/18 01:45 Temperature Pulse Rate 87 87 88 Respiratory Rate 31 H 30 H 26 H Blood Pressure 109/65 106/63 108/66 Pulse Oximetry 95 95 96 02/21/18 02:00 02/21/18 02:15 02/21/18 02:30 Temperature Pulse Rate 90 88 92 H Respiratory Rate 27 H 26 H 26 H Blood Pressure 109/67 103/62 111/67 Pulse Oximetry 96 96 97 02/21/18 02:41 02/21/18 02:45 02/21/18 03:00 Temperature Pulse Rate 93 H 91 H 93 H Respiratory Rate 25 H 30 H Blood Pressure 111/67 109/67 Pulse Oximetry 96 96 02/21/18 03:15 02/21/18 03:30 02/21/18 03:45 Temperature Pulse Rate 93 H 93 H 88 Respiratory Rate 34 H 42 H 39 H Blood Pressure 115/72 117/71 105/63 Pulse Oximetry 95 95 95 02/21/18 04:00 02/21/18 04:15 02/21/18 04:22 Temperature 98.8 F Pulse Rate 82 93 H 80 Respiratory Rate 66 H 43 H 21 Blood Pressure 101/60 112/67 Pulse Oximetry 94 L 96 98 02/21/18 04:30 02/21/18 07:00 02/21/18 08:00 Temperature 98.4 F Pulse Rate 84 90 95 H Respiratory Rate 34 H 16 Blood Pressure 117/68 118/74 Pulse Oximetry 100 02/21/18 09:40 02/21/18 09:41 02/21/18 11:00 Temperature Pulse Rate 91 H 96 H Respiratory Rate 24 Blood Pressure Pulse Oximetry 96 Intake & Output 02/20/18 02/21/18 02/21/18 18:59 06:59 18:59 Intake Total 520 / 520 843 / 843 100 / 100 Output Total 1350 / 1350 1800 / 1800 Balance -830 / -830 -957 / -957 100 / 100 Weight 56 kg Intake: IV 350 / 350 400 / 400 100 / 100 Precedex Inj 200 MCG In NS Inj 150 / 150 48 ML @ 0.2 MCG/KG/HR 2.95 mls/ hr IV.CONT TITRATE PRN Rx#: [id number] Primacor Inj 20 MG In NS Inj 80 100 / 100 ML @ Per Protocol IV.CONT .Q0M ADRIEN Rx#:[id number] Maxipime Inj 2,000 MG In NS Inj 100 / 100 100 / 100 100 ML @ 200 mls/hr IV.SIG Q12H ADRIEN Rx#:[id number] KCl 40 mEq Premix Inj 40 meq In 100 / 100 100 ml @ 25 mls/hr IV.SIG Q2H PRN Rx#:[id number] Flagyl 500 MG Inj 100 ML @ 100 100 / 100 200 / 200 mls/hr IV.SIG Q8H ADRIEN Rx#: [id number] Tube Feeding 70 / 70 143 / 143 Water Bolus Amount 100 / 100 300 / 300 Output: Urine 1600 / 1600 Stool 150 / 150 200 / 200 Urine Amount (Catheter) 1200 / 1200 Condom 300 / 300 Indwelling Temp Sensing 900 / 900 Catheter Other: Date of Last Bowel Movement 02/19/18 02/21/18 02/21/18 Result Diagrams: 02/21/18 03:50 02/21/18 03:50 Other Results: Microbiology 02/18/18 14:44 Sputum - Endotracheal Gram Stain - Final 02/18/18 14:44 Sputum - Endotracheal Sputum Culture - Final Pseudomonas aeruginosa 02/14/18 16:00 Sputum - Tracheal Aspirate Gram Stain - Final 02/14/18 16:00 Sputum - Tracheal Aspirate Sputum Culture - Final Pseudomonas aeruginosa 02/11/18 03:54 Blood - Peripheral Aerobic Blood Culture - Final No growth in 5 days 02/11/18 03:54 Blood - Peripheral Anaerobic Blood Culture - Final No growth in 5 days 02/11/18 03:49 Blood - Peripheral Aerobic Blood Culture - Final No growth in 5 days 02/11/18 03:49 Blood - Peripheral Anaerobic Blood Culture - Final No growth in 5 days 02/11/18 03:40 Sputum - Endotracheal Gram Stain - Final 02/11/18 03:40 Sputum - Endotracheal Sputum Culture - Final Pseudomonas aeruginosa Klebsiella pneumoniae 02/05/18 00:42 Blood - Peripheral Aerobic Blood Culture - Final No growth in 5 days 02/05/18 00:42 Blood - Peripheral Anaerobic Blood Culture - Final No growth in 5 days 02/05/18 00:12 Blood - Peripheral Aerobic Blood Culture - Final No growth in 5 days 02/05/18 00:12 Blood - Peripheral Anaerobic Blood Culture - Final No growth in 5 days 02/06/18 14:00 Sputum - Endotracheal Gram Stain - Final 02/06/18 14:00 Sputum - Endotracheal Sputum Culture - Final Moderate growth normal respiratory ursula Imaging: Abdomen/Bladder Ultrasound 02/05/18 00:00 CONCLUSION: 1. No evidence of hydronephrosis. 2. The echogenicity of the kidneys is equal to that of the liver which can be seen with medical renal disease. 3. Simple cyst in right kidney. 4. Suboptimal visualization of the left kidney. 5. Small amount of free fluid along the spleen. This could represent an adjacent pleural effusion. Chest X-Ray 02/05/18 01:14 CONCLUSION: 1. Left IJ central venous catheter now in place with tip at the cavoatrial junction. No evidence of pneumothorax. 2. Mild bilateral interstitial pulmonary opacity. Chest X-Ray 02/05/18 12:32 CONCLUSION: 1. Mild apparent increase in bilateral pulmonary infiltrates most characteristic of pulmonary edema. 2. Mild blunting of the costophrenic angles which could indicate small effusions. There is mild cardiomegaly again noted. Chest X-Ray 02/05/18 22:35 CONCLUSION: Increasing bilateral pulmonary infiltrates characteristic of pulmonary edema and increasing consolidation in the left lower lobe. Chest X-Ray 02/05/18 23:48 CONCLUSION: 1. Persistent bihilar mixed interstitial and airspace process suggesting some degree of vascular congestion or volume overload. No change. 2. Persistent left basilar consolidation/effusion. No change. 3. Interval placement of an endotracheal tube with the tip appropriately positioned above the renny Chest X-Ray 02/06/18 06:00 CONCLUSION: 1. Persistent bilateral, predominantly perihilar mixed interstitial and airspace process suggesting some degree of vascular congestion or volume overload. 2. Persistent left basilar consolidation/effusion. 3. Stable position of life-support tubes. Chest X-Ray 02/06/18 21:40 CONCLUSION: 1. Tip of balloon pump projecting over the junction of the aortic arch and the descending thoracic aorta. This is in good position. 2. Diffuse mixed interstitial and alveolar consolidation likely related to edema. 3. Suspected bilateral effusions. Chest X-Ray 02/08/18 06:00 CONCLUSION: 1. Improving radiographic appearance of the chest with resolving pulmonary edema. 2. Persistent bibasilar airspace disease with probable associated left-sided effusion. 3. Stable position of life-support tubes. Chest X-Ray 02/09/18 00:00 CONCLUSION: Nasogastric tube has been advanced into the stomach. Otherwise no significant change; bilateral airspace opacities and small effusions persist. Chest X-Ray 02/09/18 07:06 CONCLUSION: 1. Left lung base opacity is present may be due to a combination of consolidation and or pleural effusion. 2. The tip of the NG tube is in distal esophagus and is to be advanced. Chest X-Ray 02/09/18 15:00 CONCLUSION: Bilateral lower lobe atelectasis versus pneumonia. There has been no significant change when compared to the prior exam. Chest X-Ray 02/10/18 06:00 CONCLUSION: 1. No significant interval change. 2. Stable bilateral lower lobe airspace disease with trace pleural effusions. Chest X-Ray 02/11/18 06:00 CONCLUSION: 1. Stable tubes and lines. 2. Improved aeration in the right lower lung zone. 3. Persistent left lower lung zone airspace disease and likely trace pleural effusion. Chest X-Ray 02/12/18 06:00 CONCLUSION: 1. No significant interval change. 2. Stable ETT and NGT. 3. Stable mild left lower lung zone airspace disease and likely trace pleural effusion. Chest X-Ray 02/13/18 06:00 CONCLUSION: Increased opacification now noted in the left lung base which could indicate infiltrate and/or effusion. Chest X-Ray 02/15/18 06:00 CONCLUSION: Hazy opacity is now noted in the perihilar regions and both lung bases as well as a small left effusion. The findings are most characteristic of congestive heart failure. Head CT 02/15/18 12:23 CONCLUSION: 1. Negative CT Head non contrast. . Head MRI 02/16/18 08:28 CONCLUSION: 1. New focus of restricted diffusion high along the right cerebral vertex measuring 8 mm consistent with a new small focal acute infarction. 2. There is a new 5 mm area restricted diffusion high along the left cerebral vertex consistent with a new small focal acute infarction. 3. 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 This area is stable compared to the prior examination. 4. Stable bilateral cortical atrophy and mild chronic white matter changes. 5. Chronic bilateral mastoiditis. Abdomen X-Ray 02/17/18 00:00 CONCLUSION: Nonspecific bowel gas pattern. Chest CT 02/18/18 00:00 CONCLUSION: 1. Increasing basilar and dependent consolidation in both lungs most characteristic of pneumonia or aspiration. 2. Near complete resolution of previous small effusions. 3. Osteopenia with stable compression deformities in the spine. 4. Previous sternotomy with aortic valve replacement. 5. Right-sided central line, ET tube and NG tube in good position. Chest X-Ray 02/18/18 00:00 CONCLUSION: 1. Persistent left lower lobe consolidation and increasing partially consolidative opacities in the right lower lung. Chest X-Ray 02/19/18 06:00 CONCLUSION: 1. Persistent left lower lobe consolidation. 2. Improving right lower lung infiltrate. Chest X-Ray 02/20/18 06:00 CONCLUSION: Bilateral infiltrates are noted as above. Objective Remarks: GENERAL: 62-year-old male lying in bed in NAD on nasal cannula SKIN: cool and poorly perfused. HEAD: Atraumatic. Normocephalic. EYES: Pupils equal and round, 2 mm and reactive. No injection or drainage. ENT: No nasal bleeding or discharge. Orotracheally intubated NECK: Trachea midline. Supple, no JVD, no adenopathy/thyromegaly. Left IJ is clean dry and intact CARDIOVASCULAR: RRR. S1, S2. No S4. No murmurs rubs or gallops. RESPIRATORY: B/L equal air entry. Bilateral rhonchorous breath sounds. GASTROINTESTINAL: Abdomen soft, non-tender, nondistended. no guarding. MUSCULOSKELETAL: Extremities with trace bilateral lower extremity edema NEUROLOGICAL: Restless, no focal sensory deficits Assessment and Plan - Assessment and Plan Plan: NEURO/PSYCH: History of stroke in 2015 Neuropathy left upper and lower extremity Chronic low back pain Acetaminophen 650 every 6 hours as needed fever 02/15 CT brain: No acute findings. 02/15 EEG : Encephalopathy, no epileptiform activity MRI brain 02/16: New small focal acute infarction right cerebral vertex and also left cerebral vertex. Neuro has followed. Continue ASA 81 mg daily. Continue pregabalin 150 mg p.o. twice daily. Hold duloxetine 90 mg p.o. daily. RESP: Acute hypoxic respiratory failure COPD on 2.5 L home O2 currently on 5 L Prior tobacco abuse Bilateral pleural effusions Wean down oxygen as garrett keep sats >92%. Currently on 5 L Albuterol/ipratropium aerosols every 4 hours with albuterol aerosols every 2 hours as needed for dyspnea methylprednisolone succinate 40mg IV daily CT of the chest -bibasilar infiltrate CV: V. tach/V. fib arrest NSTEMI Cardiogenic shock Acute systolic heart failure Atrial fibrillation with RVR [place] mechanical aortic valve (09/21/12 Dr. Gonzalez) s/p Tricuspid annuloplasty Wean off milrinone 0.25 mgc/kg/min as tolerated to DC today 02/21 Monitor HR and BP keep MAP>65mmHg s/p cath And PCI -proximal LAD and large diagonal 90% stenosis, 2 BMS stent 02/05, mid LAD vasospasm post PCI Continue aspirin 81 mg daily, clopidogrel 75 mg daily, amiodarone 400mg TID, carvedilol 3.125mg BID Bumetanide 1mg IV q8h, reduce to 1 mg IV q24. discontinued today 02/21. Spironolactone 50 mg twice daily Heparin drip currently at 500 units an hour. PTT therapeutic. Continue atorvastatin 40 mg nightly. Off IABP 02/08/18 [place] 01/23/18no vegetation. Normal aortic mechanical valve with trivial aortic insufficiency. Tricuspid annuloplasty. Mild to moderate LV generalized hypokinesis Echo from 02/05: EF <20%, diffuse hypokinesis, bioprosthetic valve Digital Performance Analyst is Rom[facility]: Speech eval, diet per speech, if fails will restart tube feeds-Jevity 1.5 currently at 15 cc an hour. Goal 50 cc an hour Lansoprazole for stress ulcer prophylactic Had normal EGD on 10/21/17 FEN/RENAL: BPH Acute kidney injury-worsening Cano due to aggressive diuresis. close monitoring of uop Monitor renal function, I/O's, electrolytes replacement per protocol Renal ultrasound to evaluate for evidence of obstruction -did not show any obstruction Cr increased 1.80 from 1.46 Discontinued bumetanide 1mg IV daily , Aldactone 50 mg BID. 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 difficile colitis PICC removed Continue IV cefepime. Discontinue IV vancomycin and gentamicin 02/20 C.diff tx: po vanco + IV flagyl 02/11/18 Infectious disease following 02/18 Sputum: Pseudomonas 02/14 Sputum: Pseudomonas 02/11 Sputum cx: Pseudomonas, Kleb pneumonia BC 02/11, 02/06: NGTD HEME: Chronic anemia Iron deficiency Continue ferrous sulfate 300 milligrams liquid daily. Received 2 units packed red cells in [place] ER due to anemia and shock. Monitor CBC ENDO: SSI to maintain euglycemia PROPH: Heparin drip. Protonix for stress ulcer prophylaxis ACCESS: Right radial art line placed in the emergency department 02/04. Left IJ central line placed 02/05/18. Will attempt to discontinue 02/22 d/c Art line. Palliative care is following Level 3
--- NOTE | 2018-02-21 14:36 | P.PNPAL ---
Reason for Visit Reason for visit: a. To assist with evaluation and management of symptoms including: pain, dyspnea, weakness b. To assist medical decision maker(s) with: better understanding of current medical conditions; weighing benefits/burdens of medical treatment options; making medical treatment decisions. Subjective Subjective/Interval History: Pt was extubated 02/19. Now on 5L NC. sat 96%. Still failing swallow evals. Severe dysphagia per HEAVY REPAIRER. Asking me for water. WBC trending up, 16.2. Creatinine, BUN trending up. Potassium 2.9. Admits pain, indicates abdomen hurts. Still with liquid stool. Discussed code status with him. He is slow to process but oriented. He said that if he had trouble breathing again, he would want to be intubated and put back on vent. Objective Vital Signs: Vital Signs 02/20/18 15:00 02/20/18 15:28 02/20/18 15:30 Temperature Pulse Rate 62 62 60 Respiratory Rate 26 H 16 27 H Blood Pressure 97/67 L 101/66 Pulse Oximetry 97 99 02/20/18 16:00 02/20/18 16:31 02/20/18 16:35 Temperature 97.5 F L Pulse Rate 65 59 L 61 Respiratory Rate 13 23 35 H Blood Pressure 104/63 69/45 L 93/52 L Pulse Oximetry 96 78 L 85 L 02/20/18 17:00 02/20/18 17:30 02/20/18 18:00 Temperature Pulse Rate 59 L 63 64 Respiratory Rate 26 H 27 H 37 H Blood Pressure 85/51 L 97/61 L 81/53 L Pulse Oximetry 100 96 99 02/20/18 18:20 02/20/18 18:21 02/20/18 18:23 Temperature Pulse Rate 64 65 64 Respiratory Rate 38 H 29 H 28 H Blood Pressure 84/52 L 79/53 L 89/55 L Pulse Oximetry 100 98 91 L 02/20/18 18:30 02/20/18 18:45 02/20/18 19:00 Temperature Pulse Rate 65 67 72 Respiratory Rate 24 24 23 Blood Pressure 92/56 L 88/53 L 91/57 L Pulse Oximetry 98 98 96 02/20/18 19:15 02/20/18 19:30 02/20/18 19:45 Temperature Pulse Rate 79 78 79 Respiratory Rate 21 27 H 27 H Blood Pressure 90/57 L 97/61 L 96/61 L Pulse Oximetry 96 97 92 L 02/20/18 20:00 02/20/18 20:15 02/20/18 20:16 Temperature Pulse Rate 78 75 89 Respiratory Rate 32 H 30 H 22 Blood Pressure 97/60 L 94/54 L Pulse Oximetry 99 02/20/18 20:19 02/20/18 20:30 02/20/18 20:45 Temperature Pulse Rate 79 77 Respiratory Rate 32 H 34 H Blood Pressure 96/61 L 88/51 L Pulse Oximetry 99 99 88 L 02/20/18 21:00 02/20/18 21:15 02/20/18 21:30 Temperature 98.7 F Pulse Rate 80 78 83 Respiratory Rate 26 H 25 H 23 Blood Pressure 96/60 L 98/60 L 100/60 Pulse Oximetry 88 L 96 99 02/20/18 21:45 02/20/18 22:00 02/20/18 22:15 Temperature Pulse Rate 82 84 83 Respiratory Rate 25 H 32 H 31 H Blood Pressure 100/64 100/64 89/57 L Pulse Oximetry 97 99 89 L 02/20/18 22:30 02/20/18 22:45 02/20/18 23:00 Temperature Pulse Rate 85 83 82 Respiratory Rate 23 24 22 Blood Pressure 101/63 97/64 L 99/64 L Pulse Oximetry 100 93 L 100 02/20/18 23:15 02/20/18 23:30 02/20/18 23:45 Temperature Pulse Rate 82 83 83 Respiratory Rate 28 H 24 23 Blood Pressure 99/62 L 100/62 103/64 Pulse Oximetry 97 96 97 02/21/18 00:00 02/21/18 00:07 02/21/18 00:15 Temperature Pulse Rate 88 86 Respiratory Rate 25 H 25 H Blood Pressure 99/63 L 99/62 L Pulse Oximetry 96 99 97 02/21/18 00:30 02/21/18 00:45 02/21/18 01:00 Temperature Pulse Rate 87 86 90 Respiratory Rate 25 H 26 H 29 H Blood Pressure 100/62 104/64 104/63 Pulse Oximetry 97 96 95 02/21/18 01:15 02/21/18 01:30 02/21/18 01:45 Temperature Pulse Rate 87 87 88 Respiratory Rate 31 H 30 H 26 H Blood Pressure 109/65 106/63 108/66 Pulse Oximetry 95 95 96 02/21/18 02:00 02/21/18 02:15 02/21/18 02:30 Temperature Pulse Rate 90 88 92 H Respiratory Rate 27 H 26 H 26 H Blood Pressure 109/67 103/62 111/67 Pulse Oximetry 96 96 97 02/21/18 02:41 02/21/18 02:45 02/21/18 03:00 Temperature Pulse Rate 93 H 91 H 93 H Respiratory Rate 25 H 30 H Blood Pressure 111/67 109/67 Pulse Oximetry 96 96 02/21/18 03:15 02/21/18 03:30 02/21/18 03:45 Temperature Pulse Rate 93 H 93 H 88 Respiratory Rate 34 H 42 H 39 H Blood Pressure 115/72 117/71 105/63 Pulse Oximetry 95 95 95 02/21/18 04:00 02/21/18 04:15 02/21/18 04:22 Temperature 98.8 F Pulse Rate 82 93 H 80 Respiratory Rate 66 H 43 H 21 Blood Pressure 101/60 112/67 Pulse Oximetry 94 L 96 98 02/21/18 04:30 02/21/18 07:00 02/21/18 08:00 Temperature 98.4 F Pulse Rate 84 90 95 H Respiratory Rate 34 H 16 Blood Pressure 117/68 118/74 Pulse Oximetry 100 02/21/18 09:40 02/21/18 09:41 02/21/18 11:00 Temperature Pulse Rate 91 H 96 H Respiratory Rate 24 Blood Pressure Pulse Oximetry 96 Intake & Output 02/20/18 02/21/18 02/21/18 18:59 06:59 18:59 Intake Total 520 / 520 843 / 843 100 / 100 Output Total 1350 / 1350 1800 / 1800 Balance -830 / -830 -957 / -957 100 / 100 Weight 56 kg Intake: IV 350 / 350 400 / 400 100 / 100 Precedex Inj 200 MCG In NS Inj 150 / 150 48 ML @ 0.2 MCG/KG/HR 2.95 mls/ hr IV.CONT TITRATE PRN Rx#: [id number] Primacor Inj 20 MG In NS Inj 80 100 / 100 ML @ Per Protocol IV.CONT .Q0M ADRIEN Rx#:[id number] Maxipime Inj 2,000 MG In NS Inj 100 / 100 100 / 100 100 ML @ 200 mls/hr IV.SIG Q12H ADRIEN Rx#:[id number] KCl 40 mEq Premix Inj 40 meq In 100 / 100 100 ml @ 25 mls/hr IV.SIG Q2H PRN Rx#:[id number] Flagyl 500 MG Inj 100 ML @ 100 100 / 100 200 / 200 mls/hr IV.SIG Q8H ADRIEN Rx#: [id number] Tube Feeding 70 / 70 143 / 143 Water Bolus Amount 100 / 100 300 / 300 Output: Urine 1600 / 1600 Stool 150 / 150 200 / 200 Urine Amount (Catheter) 1200 / 1200 Condom 300 / 300 Indwelling Temp Sensing 900 / 900 Catheter Other: Date of Last Bowel Movement 02/19/18 02/21/18 02/21/18 Physical Exam: CONSTITUTIONAL/GENERAL: ill appearing and cachectic male TUBES/LINES/DRAINS: roberson, NC, NGT, Left IJ, right arterial line, rectal bag SKIN: Sallow. No jaundice, rashes, or lesions. No wounds seen anteriorly. Not diaphoretic. HEAD: Atraumatic. Normocephalic. + temporal wasting EYES: eyes glassy. No scleral icterus. No injection or drainage. Fundi not examined. ENT: Nose without bleeding or purulent drainage. CARDIOVASCULAR: tachycardic without murmurs, gallops, or rubs. + click. RESPIRATORY/CHEST: Symmetric, unlabored respirations. lung sounds diminished GASTROINTESTINAL: Abdomen soft, mildly distended, mild TTP. No hepato- splenomegaly, or palpable masses. Bowel sounds pos, more active today. +rectal bag with stool GENITOURINARY: Without palpable bladder distension. Roberson catheter in place. MUSCULOSKELETAL: Trace BUE edema. + BUE restraints. Extremities without clubbing, cyanosis. No mottling or clubbing. NEUROLOGICAL: awake, slow to answer, oriented. BLE weak, L>R Diagnostic Tests Laboratory: Laboratory Results - last 72 hr 02/18/18 02/18/18 02/19/18 17:59 23:55 03:50 WBC 15.3 H RBC 3.04 L Hgb 9.3 L Hct 28.0 L MCV 91.9 MCH 30.7 MCHC 33.4 RDW 18.2 H Plt Count 213 MPV 10.3 Neut % (Auto) Lymph % (Auto) Grundy % (Auto) Eos % (Auto) Baso % (Auto) Neut # (Auto) Lymph # (Auto) [place]undy # (Auto) Eos # (Auto) Baso # (Auto) WBC Differential Differential Comment APTT Sodium Potassium Chloride Carbon Dioxide Anion Gap BUN Creatinine Estimated GFR POC Glucose 147 H 165 H Random Glucose Calcium Phosphorus Magnesium Total Bilirubin AST ALT Alkaline Phosphatase Total Protein Albumin Random Vancomycin 02/19/18 02/19/18 02/19/18 03:50 05:12 06:15 WBC RBC Hgb Hct MCV MCH MCHC RDW Plt Count MPV Neut % (Auto) Lymph % (Auto) [place]undy % (Auto) Eos % (Auto) Baso % (Auto) Neut # (Auto) Lymph # (Auto) Grundy # (Auto) Eos # (Auto) Baso # (Auto) WBC Differential Differential Comment APTT 45.5 H Sodium 143 Potassium 3.7 Chloride 104 Carbon Dioxide 27.9 Anion Gap 11 BUN 56 H Creatinine 1.46 H Estimated GFR 49 L POC Glucose 171 H Random Glucose 146 H Calcium 8.8 Phosphorus Magnesium 1.7 Total Bilirubin 0.7 AST 57 H ALT 17 Alkaline Phosphatase 53 Total Protein 6.8 Albumin 2.7 L Random Vancomycin 02/19/18 02/19/18 02/19/18 11:27 17:45 23:21 WBC RBC Hgb Hct MCV MCH MCHC RDW Plt Count MPV Neut % (Auto) Lymph % (Auto) [place]undy % (Auto) Eos % (Auto) Baso % (Auto) Neut # (Auto) Lymph # (Auto) [place]undy # (Auto) Eos # (Auto) Baso # (Auto) WBC Differential Differential Comment APTT Sodium Potassium Chloride Carbon Dioxide Anion Gap BUN Creatinine Estimated GFR POC Glucose 146 H 156 H 127 H Random Glucose Calcium Phosphorus Magnesium Total Bilirubin AST ALT Alkaline Phosphatase Total Protein Albumin Random Vancomycin 02/20/18 02/20/18 02/20/18 04:35 04:35 05:16 WBC 12.9 H RBC 3.18 L Hgb 9.6 L Hct 29.1 L MCV 91.6 MCH 30.2 MCHC 33.0 RDW 17.5 H Plt Count 202 MPV 9.9 Neut % (Auto) Lymph % (Auto) [place]undy % (Auto) Eos % (Auto) Baso % (Auto) Neut # (Auto) Lymph # (Auto) [place]undy # (Auto) Eos # (Auto) Baso # (Auto) WBC Differential Differential Comment APTT Sodium 140 Potassium 3.3 L Chloride 101 Carbon Dioxide 26.2 Anion Gap 13 BUN 60 H Creatinine 1.80 H Estimated GFR 38 L POC Glucose 163 H Random Glucose 133 H Calcium 9.0 Phosphorus Magnesium Total Bilirubin 1.1 H AST 43 H ALT 20 Alkaline Phosphatase 58 Total Protein 7.5 D Albumin 3.0 L Random Vancomycin 19.5 02/20/18 02/20/18 02/20/18 11:47 11:53 17:32 WBC RBC Hgb Hct MCV MCH MCHC RDW Plt Count MPV Neut % (Auto) Lymph % (Auto) [place]undy % (Auto) Eos % (Auto) Baso % (Auto) Neut # (Auto) Lymph # (Auto) [place]undy # (Auto) Eos # (Auto) Baso # (Auto) WBC Differential Differential Comment APTT 43.7 H Sodium Potassium Chloride Carbon Dioxide Anion Gap BUN Creatinine Estimated GFR POC Glucose 137 H 157 H Random Glucose Calcium Phosphorus Magnesium Total Bilirubin AST ALT Alkaline Phosphatase Total Protein Albumin Random Vancomycin 02/20/18 02/21/18 02/21/18 23:37 03:50 03:50 WBC 16.2 H RBC 3.33 L Hgb 10.0 L Hct 30.1 L MCV 90.3 MCH 29.9 MCHC 33.1 RDW 17.9 H Plt Count 193 MPV 10.0 Neut % (Auto) 87.8 H Lymph % (Auto) 4.1 L Grundy % (Auto) 8.0 Eos % (Auto) 0.0 Baso % (Auto) 0.1 Neut # (Auto) 14.2 H Lymph # (Auto) 0.7 L [place]undy # (Auto) 1.3 H Eos # (Auto) 0.0 Baso # (Auto) 0.0 WBC Differential . Differential Comment Auto diff final APTT Sodium 144 Potassium 2.9 L* Chloride 107 Carbon Dioxide 26.8 Anion Gap 10 BUN 66 H Creatinine 2.02 H Estimated GFR 33 L POC Glucose 118 H Random Glucose 109 H Calcium 9.0 Phosphorus 2.5 Magnesium 2.1 Total Bilirubin 0.9 AST 28 ALT 20 Alkaline Phosphatase 55 Total Protein 6.9 D Albumin 2.8 L Random Vancomycin 02/21/18 02/21/18 02/21/18 03:50 05:35 12:37 WBC RBC Hgb Hct MCV MCH MCHC RDW Plt Count MPV Neut % (Auto) Lymph % (Auto) [place]undy % (Auto) Eos % (Auto) Baso % (Auto) Neut # (Auto) Lymph # (Auto) [place] # (Auto) Eos # (Auto) Baso # (Auto) WBC Differential Differential Comment APTT 41.3 H Sodium Potassium Chloride Carbon Dioxide Anion Gap BUN Creatinine Estimated GFR POC Glucose 116 H 135 H Random Glucose Calcium Phosphorus Magnesium Total Bilirubin AST ALT Alkaline Phosphatase Total Protein Albumin Random Vancomycin Result Diagrams: 02/21/18 03:50 02/21/18 03:50 Microbiology: Microbiology 02/18/18 14:44 Gram Stain - Final Sputum - Endotracheal Sputum Culture - Final Pseudomonas aeruginosa 02/14/18 16:00 Gram Stain - Final Sputum - Tracheal Aspirate Sputum Culture - Final Pseudomonas aeruginosa Imaging: ITS Impressions Abdomen/Bladder Ultrasound 02/05/18 00:00 CONCLUSION: 1. No evidence of hydronephrosis. 2. The echogenicity of the kidneys is equal to that of the liver which can be seen with medical renal disease. 3. Simple cyst in right kidney. 4. Suboptimal visualization of the left kidney. 5. Small amount of free fluid along the spleen. This could represent an adjacent pleural effusion. Head CT 02/15/18 12:23 CONCLUSION: 1. Negative CT Head non contrast. . Head MRI 02/16/18 08:28 CONCLUSION: 1. New focus of restricted diffusion high along the right cerebral vertex measuring 8 mm consistent with a new small focal acute infarction. 2. There is a new 5 mm area restricted diffusion high along the left cerebral vertex consistent with a new small focal acute infarction. 3. 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 This area is stable compared to the prior examination. 4. Stable bilateral cortical atrophy and mild chronic white matter changes. 5. Chronic bilateral mastoiditis. Abdomen X-Ray 02/17/18 00:00 CONCLUSION: Nonspecific bowel gas pattern. Chest CT 02/18/18 00:00 CONCLUSION: 1. Increasing basilar and dependent consolidation in both lungs most characteristic of pneumonia or aspiration. 2. Near complete resolution of previous small effusions. 3. Osteopenia with stable compression deformities in the spine. 4. Previous sternotomy with aortic valve replacement. 5. Right-sided central line, ET tube and NG tube in good position. Chest X-Ray 02/20/18 06:00 CONCLUSION: Bilateral infiltrates are noted as above. Procedures: 02/05 left IJ placement 02/05 retrograde left heart cath, stent placement, IABP placement 02/05 intubated 02/19 extubated Assessment and Plan - Disease Oriented Problem List (1) Cardiogenic shock (2) Ventricular fibrillation (3) Hypokalemia (4) CAD (coronary artery disease) Pertinent Non-Medical Issues: Psychosocial: On disability. 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 Spiritual: Quaker, non-presybeterian. Firmware Engineer has visited, they also have hindu senior architect visiting. Legal: Pt not capacitated to make medical decisions. Unclear if he will regain capacity. Per [place] statutes decision making would fall to as proxy. Ethical issues impacting care: none identified Important Contacts: Maria Isabel Tolentino [phone] sister Yvonne Valdivia [phone] Prognosis: 62 yo male s/p aortic valve replacement 2012 who suffered significant NSTEMI, EF <20% on presentation, troponins up to 32. Echo also showed global hypokinesis. Not clear how much of heart failure was present prior to NSTEMI. s /p heart cath, LAD stenting complicated by vasospasm. 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 He has had several runs of v fib and v tach requiring chest compressions, shocks. He has underlying COPD and was having activity intolerance prior to this event. Extubated 02/19 and still failing swallow evals. His prognosis for complete recover to baseline is quite poor. Unlikely he would tolerate rehab if his EF remains < 20%. He remains at high risk for continued complications including but not limited to recurrent arrhythmias, multi-organ injury; and at risk for further decline. He is hospice appropriate should goals be in line with comfort. Code Status: Full Code Plan: - LEGAL DECISON MAKER - Pt not clearly capacitated to make medical decisions, but his mental status is improving. Per [place] statutes decision making would fall to as proxy. Family working together to make decisions - , wifes RN sister, and pt's sister. - CODE STATUS- full code - GOALS - verbalizes aggressive goals. She is optimistic feels God will heal her . Pt verbal today, indicates he would want to be intubated and put back on vent if he had trouble breathing, rather than made comfortable. - SYMPTOMS - * dyspnea - multifactorial - hx COPD, EF < 20%, class 4 heart failure. extubated 02/19, on 5L NC. CXR 02/20 shows bilat infiltrates. still on milrinone gtt. he is at risk for reintubation. PRN duonebs, scheduled duonebs, bumex * pain - multifactorial, lines, ET tube, catheters, hx chronic back pain 2/2 "chronic fractures," c diff infection. mild abd distention, TTP. On PO vanc, flagyl. sees pain mgmt, been on hydrocodone , reportedly same dosage and frequency for 6 years. on lyrica * debility/weakness - multifactorial. profoundly emaciated and ill appearing, per this is his usual appearance. still NPO per HEAVY REPAIRER, if no improvement he will need PEG. BLE weak, L>R. cardiac function prob would not allow aggressive rehab. - eforsce verified - Palliative care will continue to follow during hospital course as condition evolves, to assist patient/decision-maker with understanding of medical conditions, weighing benefits/burdens of treatment options, for clarification of goals of treatment. Additionally will assist with any symptoms of palliative concern Attestation Attestation: To help prompt me to consider important information that might be impacting today's encounter and assessment, information from prior notes written by myself or my colleagues may have been "brought forward" into today's note. My signature on this note, however, is an attestation that I personally performed the exam, history, and/or decision-making noted today, and, unless otherwise indicated, the interactions with patient, family, and staff as well as the review of records all occurred today. I also attest that the listed assessment and stated plan reflect my best clinical judgment today based on the combination of historical information, prior notes, and today's exam/ interactions. When time spent is documented, it refers only to time spent today by the signer, or if indicated, combined time spent today by collaborating physician/nurse practitioner.
[2018-02-21] MEDS: Heparin Drip 25,000 UNIT/250 ML BAG IV.CONT PRN (15:06)
[2018-02-22] MEDS: Oral Hygiene Kit OROPHARYNG SCH ×4 (04:50→16:23)
[2018-02-22 05:42] LABS: Baso % (Auto) 0.1 % (0.0-2.0); Hemoglobin 11.9 gm/dL (13.0-17.0); Lymph # (Auto) 0.7 th/mm3 (1.0-4.8); Lymph % (Auto) 3.8 % (9.0-44.0); Mean Corpuscular HGB Conc 33.1 % (32.0-36.0); Mean Corpuscular Hemoglobin 30.7 pg (27.0-34.0); Mean Corpuscular Volume 92.8 fL (80.0-100.0); Mean Platelet Volume 10.5 fL (7.0-11.0); Mono # (Auto) 1.2 th/mm3 (0.0-0.9); Mono % (Auto) 7.2 % (0.0-8.0); Neut # (Auto) 15.4 th/mm3 (1.8-7.7); Neut % (Auto) 88.9 % (16.0-70.0); Platelet Count 187 th/mm3 (150-450); Red Blood Count 3.87 mil/mm3 (4.50-5.90); Red Cell Distribution Width 18.1 % (11.6-17.2); White Blood Count 17.3 th/mm3 (4.0-11.0)
[2018-02-22 06:10] LABS: Albumin 2.9 g/dL (3.4-5.0); Anion Gap 14 meq/L (5-15); Aspartate Aminotransferase 26 U/L (15-37); Blood Urea Nitrogen 59 mg/dL (7-18); Calcium 9.2 mg/dL (8.5-10.1); Carbon Dioxide 24.4 meq/L (21.0-32.0); Chloride 111 meq/L (98-107); Glomerular Filtration Rate 42 mL/min (>89); Glucose,Random 151 mg/dL (74-106); Magnesium 2.2 mg/dL (1.5-2.5); Sodium 149 meq/L (136-145)
[2018-02-22 06:11] LABS: Alanine Aminotransferase 21 U/L (12-78)
[2018-02-22 06:14] LABS: Alkaline Phosphatase 66 U/L (45-117); Phosphorus 2.6 mg/dL (2.5-4.9); Total Protein 7.6 g/dL (6.4-8.2)
[2018-02-22] MEDS: Insulin NovoLOG Aspart Correctional Sugar Inj SQ SCH ×4 (06:56→17:16)
[2018-02-22] MEDS: Senna/Docusate Sodium 8.6/50 MG Tablet PO SCH ×2 (09:30→21:38)
[2018-02-22] MEDS: Ascorbic Acid 500 MG Tablet NG/OG SCH (09:30)
[2018-02-22] MEDS: Ferrrous Sulfate 300 MG/5 ML UDC PO SCH (09:30)
[2018-02-22] MEDS: Amiodarone 200 MG Tablet G-TUBE SCH ×2 (09:31→21:38)
[2018-02-22] MEDS: Pregabalin 75 MG Capsule PO SCH ×2 (09:31→21:37)
[2018-02-22] MEDS: Hypromellose 0.3% Opth Gel 10 GM Bottle EACH EYE SCH ×2 (09:32→21:38)
[2018-02-22] MEDS: MethylPREDNISolone Sod Succinate Inj 40 MG/ML Vial IV.PUSH SCH (09:33)
[2018-02-22] MEDS: Potassium Chlor 40 mEq Premix 40 MEQ/100 ML PIGGYBACK IV.SIG PRN ×2 (09:56→13:38)
[2018-02-22] MEDS: Spironolactone 50 MG Tablet PO SCH ×2 (09:59→17:16)
[2018-02-22] MEDS: Beneprotein Powder Packet G-TUBE SCH ×3 (09:59→17:16)
[2018-02-22] MEDS: Potassium Chloride 10 MEQ ER Capsule G-TUBE SCH ×2 (09:59→21:37)
[2018-02-22] MEDS: Chlorhexidine 0.12% Oral Kit 15 ML UDC OROPHARYNG SCH ×2 (10:00→21:37)
--- NOTE | 2018-02-22 12:53 | P.PNCC ---
Subjective Subjective Remarks/Hospital Course: 62-year-old male with past medical history of [place] mechanical aortic valve (09/21/12 Dr. Gonzalez), on chronic anticoagulation with warfarin, atrial fibrillation postop from AVR , COPD on 2.5 L home O2, stroke in 2015 resulting in left-sided sensory deficits and neuropathy, osteoporosis with chronic low back pain. He was recently admitted to [facility] from 01/23 through 01/31/18 for MSSA bacteremia. It is believed that the original source of infection was a wound on his right index finger when electric drill slipped and created a puncture wound. He was discharged with right upper extremity PICC line receiving cefazolin 2 g IV every 8 hours and gentamicin 210 mg IV daily. He states that home health administered antibiotics at 17:00 and shortly thereafter he began having chills and rigors and sought medical attention at [facility]. He had no rash. Upon arrival, he was hypotensive in the low 80s. He was given 2 L S bolus but remained hypotensive so was started on Levophed. He then developed heart rate in the 140s, reportedly atrial flutter so he was started on Amiodarone drip in [place] and converted to sinus rhythm. He was transfused 2 units PRBC due to Hgb 9.3. His stool was nonbloody nonmelena but was Hemoccult positive. He was given zosyn and vancomycin. Critical care medicine was then contacted and accepted patient for transfer to [facility]. He denies tenderness/redness/drainage at PICC site. Aside from mechanical aortic valve, he has no other hardware or indwelling devices. He denies headache, cough, dysuria. He has had a few loose stools at home, but stools have sometimes been formed. He denies chest pain, does report some SOB. EKG at [place] had marked inferolateral ischemic changes. Obtained EKG upon arrival to [facility] which is improved. SUBJ 02/05: Patient remains critical ill appearing, complaints of chest tightness but denies pain. Remains on 8 mcg/min of Levophed to maintain map about 65. However increasing shortness of breath. Chest x-ray shows increasing pulmonary edema. Troponin was 27.5 currently on IV heparin therapeutic. Cardiology consult is pending at this time. I will stop on maintenance fluids give 40 mg IV Lasix and IV albumin 25 g 1. Patient is very critical patient and updated at the bedside 02/06: to clinical laboratory technologist last night for [facility] with LAD stent complicated by vasospasm of the LAD. IABP placed. patient emergently intubated for acute hypoxic respiratory failure secondary to cardiogenic shock and pulmonary edema. started on milrinone at 0.375 mcg/kg/min and levophed. bumex drip started. remains critically ill. 02/07: Remains critically ill remains on Levophed and milrinone. Currently diuresing well with Bumex drip. IABP in place management per cardiology-good waveform and augmentation. Chest x-ray shows adequate positioning of IABP, diffuse bilateral pulmonary edema 02/08: Remains critical but showing some signs of improvement. Diuresing very well on Bumex infusion. Remains on Levophed and milrinone. IABP one-to-one with good augmentation management per cardiology. Chest x-ray shows improving edema but with persistent bilateral effusions. Will initiate weaning trials if tolerated 02/09: Still remains on pressors, unable to wean Levophed below 2 mcg/min. Milrinone currently on 0.375 mcg/kg/min. IABP removed yesterday. On sedation hold patient wakes up but remains lethargic. Weakly squeezes hand. Urine output excellent on Bumex, 4 L output in 24 hours. Will attempt CPAP today 02/10: Multiple episodes of V. fib V. tach arrest yesterday morning. Successfully resuscitated. Yesterday night had two-minute V. fib arrest return of spontaneous circulation in sinus rhythm after DC cardioversion 1. Currently remains on milrinone and low-dose Levophed. I will try to wean off Levophed introduce low-dose beta-rasheed due to recurrent arrhythmia. Keep potassium more than 4 magnesium more than 2 02/11: Patient still critical and cardiogenic shock requiring Levophed and milrinone. Urine output improved with adding Diamox. Approximately 2 L urine output in 24 hours, creatinine remained stable. Oxygenation slightly improved FiO2 reduced to 70% now. Overall prognosis remains poor family wants to continue aggressive care 02/12: Remains critical but slight improvement in oxygenation. But continues to require Levophed and milrinone the low-dose. Urine output remains adequate. Chest x-ray shows interval improvement. Creatinine remains stable to slightly improved. Add IV albumin to improve blood pressure and to promote diuresis. 02/13 Patient remains intubated and sedated with Versed and fentanyl. Afebrile, off Levophed remains on Milrinone and Heparin drip. 02/14: Hypothermic overnight. Remains on milrinone and heparin drips. Tolerating tube feeds at 20 cc now. Positive BM. No changes neurologically 02/15 Patient remains sedated with Versed and Fentanyl drips, on Milrinone 0.5. 02/16 Patient remains intubated sedated with Versed and Fentanyl infusion. On Milrinone and Heparin drips. CT brain yesterday showed no acute findings. Afebrile. 02/17 Patient remains sedated and intubated. Afebrile, On Milrinone and Heparin drip. 02/18: Remains critical continues to require milrinone. Urine output adequate. Chest x-ray shows bilateral infiltrate effusion. CT chest to better define effusions and infiltrate. Increase Bumex to 1 mg every 8 hours. Patient is persistently weak, will attempt SBT unlikely to be successfully extubated at this time. Most likely will need tracheostomy if family desires aggressive care 02/19: Remains intubated sedated with Versed and fentanyl. Transition to Precedex to facilitate weaning trials. Patient responding slightly more to verbal command, appears to track even though not following commands. Creatinine slightly increased with increased diuresis. Chest x-ray shows improved pleural effusions. CT chest yesterday did not show significant effusion but basilar consolidation. 02/20 Patient was extubated yesterday on 10L simple mask, on Precdex, Heparin and Milrinone drips. Tmax 101.1 yesterday 02/21: Febrile. Currently on 5 L nasal cannula. Continues on heparin drip with 500 units an hour. Received bumetanide 1 mg 1 today. Positive BM SUBJECTIVE: 02/22: Remains on 5 L nasal cannula. Remains on heparin drip. No changes neurologically remains medically stable. Planes. Objective Vital Signs / I&O: Vital Signs 02/21/18 15:00 02/21/18 16:00 02/21/18 16:28 Temperature 98.5 F Pulse Rate 86 84 87 Respiratory Rate 15 26 H Blood Pressure 129/81 Pulse Oximetry 98 02/21/18 20:00 02/21/18 20:37 02/22/18 00:00 Temperature 98.7 F 98.5 F Pulse Rate 83 85 87 Respiratory Rate 24 22 26 H Blood Pressure 123/77 119/73 Pulse Oximetry 97 95 91 L 02/22/18 00:31 02/22/18 03:52 02/22/18 04:00 Temperature 98.7 F Pulse Rate 79 81 82 Respiratory Rate 22 18 28 H Blood Pressure 124/78 Pulse Oximetry 89 L 02/22/18 07:00 02/22/18 08:00 02/22/18 11:00 Temperature 98.3 F Pulse Rate 85 87 85 Respiratory Rate 18 28 H 20 Blood Pressure 127/76 Pulse Oximetry 93 L Intake & Output 02/21/18 02/22/18 02/22/18 18:59 06:59 18:59 Intake Total 600 / 600 474 / 474 Output Total 350 / 350 800 / 800 Balance 250 / 250 -326 / -326 Weight 50.5 kg Intake: IV 400 / 400 200 / 200 Maxipime Inj 2,000 MG In NS Inj 100 / 100 100 ML @ 200 mls/hr IV.SIG Q12H ADRIEN Rx#:[id number] KCl 40 mEq Premix Inj 40 meq In 200 / 200 100 ml @ 25 mls/hr IV.SIG Q2H PRN Rx#:[id number] Flagyl 500 MG Inj 100 ML @ 100 100 / 100 200 / 200 mls/hr IV.SIG Q8H ADRIEN Rx#: [id number] Tube Feeding 200 / 200 274 / 274 Output: Stool 50 / 50 Urine Amount (Catheter) 350 / 350 750 / 750 Condom 350 / 350 750 / 750 Other: # Voids 3 Date of Last Bowel Movement 02/21/18 02/21/18 02/21/18 Result Diagrams: 02/22/18 05:00 02/22/18 05:00 Other Results: Microbiology 02/18/18 14:44 Sputum - Endotracheal Gram Stain - Final 02/18/18 14:44 Sputum - Endotracheal Sputum Culture - Final Pseudomonas aeruginosa 02/14/18 16:00 Sputum - Tracheal Aspirate Gram Stain - Final 02/14/18 16:00 Sputum - Tracheal Aspirate Sputum Culture - Final Pseudomonas aeruginosa 02/11/18 03:54 Blood - Peripheral Aerobic Blood Culture - Final No growth in 5 days 02/11/18 03:54 Blood - Peripheral Anaerobic Blood Culture - Final No growth in 5 days 02/11/18 03:49 Blood - Peripheral Aerobic Blood Culture - Final No growth in 5 days 02/11/18 03:49 Blood - Peripheral Anaerobic Blood Culture - Final No growth in 5 days 02/11/18 03:40 Sputum - Endotracheal Gram Stain - Final 02/11/18 03:40 Sputum - Endotracheal Sputum Culture - Final Pseudomonas aeruginosa Klebsiella pneumoniae 02/05/18 00:42 Blood - Peripheral Aerobic Blood Culture - Final No growth in 5 days 02/05/18 00:42 Blood - Peripheral Anaerobic Blood Culture - Final No growth in 5 days 02/05/18 00:12 Blood - Peripheral Aerobic Blood Culture - Final No growth in 5 days 02/05/18 00:12 Blood - Peripheral Anaerobic Blood Culture - Final No growth in 5 days 02/06/18 14:00 Sputum - Endotracheal Gram Stain - Final 02/06/18 14:00 Sputum - Endotracheal Sputum Culture - Final Moderate growth normal respiratory ursula Imaging: Abdomen/Bladder Ultrasound 02/05/18 00:00 CONCLUSION: 1. No evidence of hydronephrosis. 2. The echogenicity of the kidneys is equal to that of the liver which can be seen with medical renal disease. 3. Simple cyst in right kidney. 4. Suboptimal visualization of the left kidney. 5. Small amount of free fluid along the spleen. This could represent an adjacent pleural effusion. Chest X-Ray 02/05/18 01:14 CONCLUSION: 1. Left IJ central venous catheter now in place with tip at the cavoatrial junction. No evidence of pneumothorax. 2. Mild bilateral interstitial pulmonary opacity. Chest X-Ray 02/05/18 12:32 CONCLUSION: 1. Mild apparent increase in bilateral pulmonary infiltrates most characteristic of pulmonary edema. 2. Mild blunting of the costophrenic angles which could indicate small effusions. There is mild cardiomegaly again noted. Chest X-Ray 02/05/18 22:35 CONCLUSION: Increasing bilateral pulmonary infiltrates characteristic of pulmonary edema and increasing consolidation in the left lower lobe. Chest X-Ray 02/05/18 23:48 CONCLUSION: 1. Persistent bihilar mixed interstitial and airspace process suggesting some degree of vascular congestion or volume overload. No change. 2. Persistent left basilar consolidation/effusion. No change. 3. Interval placement of an endotracheal tube with the tip appropriately positioned above the renny Chest X-Ray 02/06/18 06:00 CONCLUSION: 1. Persistent bilateral, predominantly perihilar mixed interstitial and airspace process suggesting some degree of vascular congestion or volume overload. 2. Persistent left basilar consolidation/effusion. 3. Stable position of life-support tubes. Chest X-Ray 02/06/18 21:40 CONCLUSION: 1. Tip of balloon pump projecting over the junction of the aortic arch and the descending thoracic aorta. This is in good position. 2. Diffuse mixed interstitial and alveolar consolidation likely related to edema. 3. Suspected bilateral effusions. Chest X-Ray 02/08/18 06:00 CONCLUSION: 1. Improving radiographic appearance of the chest with resolving pulmonary edema. 2. Persistent bibasilar airspace disease with probable associated left-sided effusion. 3. Stable position of life-support tubes. Chest X-Ray 02/09/18 00:00 CONCLUSION: Nasogastric tube has been advanced into the stomach. Otherwise no significant change; bilateral airspace opacities and small effusions persist. Chest X-Ray 02/09/18 07:06 CONCLUSION: 1. Left lung base opacity is present may be due to a combination of consolidation and or pleural effusion. 2. The tip of the NG tube is in distal esophagus and is to be advanced. Chest X-Ray 02/09/18 15:00 CONCLUSION: Bilateral lower lobe atelectasis versus pneumonia. There has been no significant change when compared to the prior exam. Chest X-Ray 02/10/18 06:00 CONCLUSION: 1. No significant interval change. 2. Stable bilateral lower lobe airspace disease with trace pleural effusions. Chest X-Ray 02/11/18 06:00 CONCLUSION: 1. Stable tubes and lines. 2. Improved aeration in the right lower lung zone. 3. Persistent left lower lung zone airspace disease and likely trace pleural effusion. Chest X-Ray 02/12/18 06:00 CONCLUSION: 1. No significant interval change. 2. Stable ETT and NGT. 3. Stable mild left lower lung zone airspace disease and likely trace pleural effusion. Chest X-Ray 02/13/18 06:00 CONCLUSION: Increased opacification now noted in the left lung base which could indicate infiltrate and/or effusion. Chest X-Ray 02/15/18 06:00 CONCLUSION: Hazy opacity is now noted in the perihilar regions and both lung bases as well as a small left effusion. The findings are most characteristic of congestive heart failure. Head CT 02/15/18 12:23 CONCLUSION: 1. Negative CT Head non contrast. . Head MRI 02/16/18 08:28 CONCLUSION: 1. New focus of restricted diffusion high along the right cerebral vertex measuring 8 mm consistent with a new small focal acute infarction. 2. There is a new 5 mm area restricted diffusion high along the left cerebral vertex consistent with a new small focal acute infarction. 3. 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 This area is stable compared to the prior examination. 4. Stable bilateral cortical atrophy and mild chronic white matter changes. 5. Chronic bilateral mastoiditis. Abdomen X-Ray 02/17/18 00:00 CONCLUSION: Nonspecific bowel gas pattern. Chest CT 02/18/18 00:00 CONCLUSION: 1. Increasing basilar and dependent consolidation in both lungs most characteristic of pneumonia or aspiration. 2. Near complete resolution of previous small effusions. 3. Osteopenia with stable compression deformities in the spine. 4. Previous sternotomy with aortic valve replacement. 5. Right-sided central line, ET tube and NG tube in good position. Chest X-Ray 02/18/18 00:00 CONCLUSION: 1. Persistent left lower lobe consolidation and increasing partially consolidative opacities in the right lower lung. Chest X-Ray 02/19/18 06:00 CONCLUSION: 1. Persistent left lower lobe consolidation. 2. Improving right lower lung infiltrate. Chest X-Ray 02/20/18 06:00 CONCLUSION: Bilateral infiltrates are noted as above. Objective Remarks: GENERAL: 62-year-old male lying in bed in NAD on nasal cannula SKIN: cool and poorly perfused. HEAD: Atraumatic. Normocephalic. EYES: Pupils equal and round, 2 mm and reactive. No injection or drainage. ENT: No nasal bleeding or discharge. Orotracheally intubated NECK: Trachea midline. Supple, no JVD, no adenopathy/thyromegaly. Left IJ is clean dry and intact CARDIOVASCULAR: RRR. S1, S2. No S4. No murmurs rubs or gallops. RESPIRATORY: B/L equal air entry. Bilateral rhonchorous breath sounds. GASTROINTESTINAL: Abdomen soft, non-tender, nondistended. no guarding. MUSCULOSKELETAL: Extremities with trace bilateral lower extremity edema NEUROLOGICAL: Arousable and follows commands. Very vocal., no focal musculoskeletal or sensory deficits Assessment and Plan - Assessment and Plan Plan: NEURO/PSYCH: History of stroke in 2015 Neuropathy left upper and lower extremity Chronic low back pain Acetaminophen 650 every 6 hours as needed fever 02/15 CT brain: No acute findings. 02/15 EEG : Encephalopathy, no epileptiform activity MRI brain 02/16: New small focal acute infarction right cerebral vertex and also left cerebral vertex. Neuro has followed. Continue ASA 81 mg daily. Continue pregabalin 150 mg p.o. twice daily. Hold duloxetine 90 mg p.o. daily. RESP: Acute hypoxic respiratory failure COPD on 2.5 L home O2 currently on 5 L Prior tobacco abuse Bilateral pleural effusions Wean down oxygen as garrett keep sats >92%. Currently on 5 L Albuterol/ipratropium aerosols every 4 hours with albuterol aerosols every 2 hours as needed for dyspnea methylprednisolone succinate 40mg IV daily CT of the chest -bibasilar infiltrate CV: V. tach/V. fib arrest NSTEMI Cardiogenic shock Acute systolic heart failure Atrial fibrillation with RVR [place] mechanical aortic valve (09/21/12 Dr. Gonzalez) s/p Tricuspid annuloplasty Discontinue milrinone 0.25 mgc/kg/min 02/21 Monitor HR and BP keep MAP>65mmHg s/p cath And PCI -proximal LAD and large diagonal 90% stenosis, 2 BMS stent 02/05, mid LAD vasospasm post PCI Continue aspirin 81 mg daily, clopidogrel 75 mg daily, amiodarone 400mg TID, carvedilol 3.125mg BID Bumetanide 1mg IV q8h, reduce to 1 mg IV q24. discontinued today 02/21. Spironolactone 50 mg twice daily Heparin drip currently at 500 units an hour. PTT therapeutic. Continue atorvastatin 40 mg nightly. Off IABP 02/08/18 [place] 01/23/18no vegetation. Normal aortic mechanical valve with trivial aortic insufficiency. Tricuspid annuloplasty. Mild to moderate LV generalized hypokinesis Echo from 02/05: EF <20%, diffuse hypokinesis, bioprosthetic valve Assistant Tennis Professional is Romana Bartlett GI: Moderate protein calorie malnutrition with hypoalbuminemia Speech eval, diet per speech, if fails will restart tube feeds-Jevity 1.5 currently at 15 cc an hour. Goal 50 cc an hour Lansoprazole for stress ulcer prophylactic Had normal EGD on 10/21/17 FEN/RENAL: BPH Acute kidney injury-worsening Hypopotassemia Hypernatremia Cano due to aggressive diuresis. close monitoring of uop Monitor renal function, I/O's, electrolytes replacement per protocol Renal ultrasound to evaluate for evidence of obstruction -did not show any obstruction Cr increased 1.80 from 1.46 Discontinued bumetanide 1mg IV daily , Aldactone 50 mg BID. 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 difficile colitis PICC removed Continue IV cefepime. Discontinue IV vancomycin and gentamicin 02/20 C.diff tx: po vanco + IV flagyl 02/11/18 Infectious disease following 02/18 Sputum: Pseudomonas 02/14 Sputum: Pseudomonas 02/11 Sputum cx: Pseudomonas, Kleb pneumonia BC 02/11, 02/06: NGTD HEME: Chronic normocytic anemia Iron deficiency Leukocytosis Continue ferrous sulfate 300 milligrams liquid daily. Received 2 units packed red cells in [place] ER due to anemia and shock. Monitor CBC ENDO: SSI to maintain euglycemia PROPH: Heparin drip. Protonix for stress ulcer prophylaxis ACCESS: Right radial art line placed in the emergency department 02/04. Left IJ central line placed 02/05/18. Will attempt to discontinue 02/22 d/c Art line. Palliative care is following Level 3
--- NOTE | 2018-02-22 19:23 | P.PNID ---
Subjective Remarks: remains extubated stooling afebrile BP stable sputum grew PSAE with the same sensitivities Antibiotics: vanco gent cefepime oral vanco iv flagyl Allergies/Adverse Reactions: Allergies No Known Allergies Allergy (Verified 02/04/18 18:10) Objective Vital Signs 02/21/18 20:00 02/21/18 20:37 02/22/18 00:00 Temperature 98.7 F 98.5 F Pulse Rate 83 85 87 Respiratory Rate 24 22 26 H Blood Pressure 123/77 119/73 Pulse Oximetry 97 95 91 L 02/22/18 00:31 02/22/18 03:52 02/22/18 04:00 Temperature 98.7 F Pulse Rate 79 81 82 Respiratory Rate 22 18 28 H Blood Pressure 124/78 Pulse Oximetry 89 L 02/22/18 07:00 02/22/18 08:00 02/22/18 10:00 Temperature 98.3 F Pulse Rate 85 87 86 Respiratory Rate 18 28 H 27 H Blood Pressure 127/76 122/81 Pulse Oximetry 93 L 99 02/22/18 10:15 02/22/18 10:30 02/22/18 10:45 Temperature Pulse Rate 87 90 84 Respiratory Rate 27 H 26 H 28 H Blood Pressure 116/78 122/79 126/81 Pulse Oximetry 100 02/22/18 11:00 02/22/18 11:15 02/22/18 11:30 Temperature Pulse Rate 82 85 86 Respiratory Rate 28 H 29 H 28 H Blood Pressure 118/73 121/76 122/78 Pulse Oximetry 100 100 92 L 02/22/18 11:45 02/22/18 12:00 02/22/18 12:15 Temperature 97.5 F L Pulse Rate 85 85 86 Respiratory Rate 29 H 28 H 30 H Blood Pressure 122/75 119/78 112/72 Pulse Oximetry 80 L 95 93 L 02/22/18 12:30 02/22/18 12:45 02/22/18 13:00 Temperature Pulse Rate 86 86 87 Respiratory Rate 27 H 30 H 28 H Blood Pressure 119/80 118/75 111/71 Pulse Oximetry 93 L 92 L 91 L 02/22/18 13:15 02/22/18 13:30 02/22/18 13:45 Temperature Pulse Rate 90 85 86 Respiratory Rate 30 H 27 H 29 H Blood Pressure 120/75 117/76 123/77 Pulse Oximetry 94 L 95 92 L 02/22/18 14:00 02/22/18 14:15 02/22/18 14:30 Temperature Pulse Rate 86 89 89 Respiratory Rate 29 H 29 H 30 H Blood Pressure 116/76 117/78 118/80 Pulse Oximetry 95 95 97 02/22/18 14:45 02/22/18 14:46 02/22/18 15:00 Temperature Pulse Rate 90 91 H 93 H Respiratory Rate 30 H 18 30 H Blood Pressure 117/80 124/81 Pulse Oximetry 95 96 02/22/18 15:15 02/22/18 15:30 02/22/18 15:45 Temperature Pulse Rate 92 H 93 H 96 H Respiratory Rate 31 H 31 H 31 H Blood Pressure 122/81 118/77 123/79 Pulse Oximetry 94 L 94 L 91 L 02/22/18 16:00 Temperature 98.8 F Pulse Rate 93 H Respiratory Rate 29 H Blood Pressure 120/81 Pulse Oximetry 90 L Intake & Output 02/22/18 02/22/18 02/23/18 06:59 18:59 06:59 Intake Total 574 / 574 786 / 786 Output Total 800 / 800 850 / 850 Balance -226 / -226 -64 / -64 Weight 50.5 kg Intake: IV 300 / 300 100 / 100 Maxipime Inj 2,000 MG In NS Inj 100 / 100 100 ML @ 200 mls/hr IV.SIG Q12H ADRIEN Rx#:[id number] KCl 40 mEq Premix Inj 40 meq In 100 / 100 100 ml @ 25 mls/hr IV.SIG Q2H PRN Rx#:[id number] Flagyl 500 MG Inj 100 ML @ 100 200 / 200 mls/hr IV.SIG Q8H ADRIEN Rx#: [id number] Tube Feeding 274 / 274 296 / 296 Tube Irrigant 240 / 240 Water Bolus Amount 150 / 150 Output: Stool 50 / 50 50 / 50 Urine Amount (Catheter) 750 / 750 800 / 800 Condom 750 / 750 800 / 800 Other: # Incontinent Voids 2 Date of Last Bowel Movement 02/21/18 02/22/18 # Bowel Movements 1 02/18/18 14:44 Sputum - Endotracheal Gram Stain - Final 02/18/18 14:44 Sputum - Endotracheal Sputum Culture - Final Pseudomonas aeruginosa Lab - Hematology Results 02/21/18 02/22/18 03:50 05:00 WBC 16.2 H 17.3 H RBC 3.33 L 3.87 L Hgb 10.0 L 11.9 L Hct 30.1 L 36.0 L MCV 90.3 92.8 MCH 29.9 30.7 MCHC 33.1 33.1 RDW 17.9 H 18.1 H Plt Count 193 187 MPV 10.0 10.5 Neut % (Auto) 87.8 H 88.9 H Lymph % (Auto) 4.1 L 3.8 L [place] % (Auto) 8.0 7.2 Eos % (Auto) 0.0 0.0 Baso % (Auto) 0.1 0.1 Neut # (Auto) 14.2 H 15.4 H Lymph # (Auto) 0.7 L 0.7 L [place] # (Auto) 1.3 H 1.2 H Eos # (Auto) 0.0 0.0 Baso # (Auto) 0.0 0.0 WBC Differential . . Differential Comment Auto diff final Auto diff final Lab - Chemistry Results 02/20/18 02/21/18 02/21/18 23:37 03:50 05:35 Sodium 144 Potassium 2.9 L* Chloride 107 Carbon Dioxide 26.8 Anion Gap 10 BUN 66 H Creatinine 2.02 H Estimated GFR 33 L POC Glucose 118 H 116 H Random Glucose 109 H Calcium 9.0 Phosphorus 2.5 Magnesium 2.1 Total Bilirubin 0.9 AST 28 ALT 20 Alkaline Phosphatase 55 Total Protein 6.9 D Albumin 2.8 L 02/21/18 02/21/18 02/22/18 12:37 17:54 01:14 Sodium Potassium Chloride Carbon Dioxide Anion Gap BUN Creatinine Estimated GFR POC Glucose 135 H 161 H 154 H Random Glucose Calcium Phosphorus Magnesium Total Bilirubin AST ALT Alkaline Phosphatase Total Protein Albumin 02/22/18 02/22/18 02/22/18 05:00 12:15 17:04 Sodium 149 H Potassium 3.0 L Chloride 111 H Carbon Dioxide 24.4 Anion Gap 14 BUN 59 H Creatinine 1.67 H Estimated GFR 42 L POC Glucose 210 H 176 H Random Glucose 151 H Calcium 9.2 Phosphorus 2.6 Magnesium 2.2 Total Bilirubin 0.8 AST 26 ALT 21 Alkaline Phosphatase 66 Total Protein 7.6 D Albumin 2.9 L Imaging: ITS Impressions Abdomen/Bladder Ultrasound 02/05/18 00:00 CONCLUSION: 1. No evidence of hydronephrosis. 2. The echogenicity of the kidneys is equal to that of the liver which can be seen with medical renal disease. 3. Simple cyst in right kidney. 4. Suboptimal visualization of the left kidney. 5. Small amount of free fluid along the spleen. This could represent an adjacent pleural effusion. Head CT 02/15/18 12:23 CONCLUSION: 1. Negative CT Head non contrast. . Head MRI 02/16/18 08:28 CONCLUSION: 1. New focus of restricted diffusion high along the right cerebral vertex measuring 8 mm consistent with a new small focal acute infarction. 2. There is a new 5 mm area restricted diffusion high along the left cerebral vertex consistent with a new small focal acute infarction. 3. 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 This area is stable compared to the prior examination. 4. Stable bilateral cortical atrophy and mild chronic white matter changes. 5. Chronic bilateral mastoiditis. Abdomen X-Ray 02/17/18 00:00 CONCLUSION: Nonspecific bowel gas pattern. Chest CT 02/18/18 00:00 CONCLUSION: 1. Increasing basilar and dependent consolidation in both lungs most characteristic of pneumonia or aspiration. 2. Near complete resolution of previous small effusions. 3. Osteopenia with stable compression deformities in the spine. 4. Previous sternotomy with aortic valve replacement. 5. Right-sided central line, ET tube and NG tube in good position. Chest X-Ray 02/20/18 06:00 CONCLUSION: Bilateral infiltrates are noted as above. Physical Exam: GENERAL: extubated. On NC O2 Confused SKIN: Warm and dry. HEAD: Atraumatic. Normocephalic. EYES: Pupils equal and round. No scleral icterus. No injection or drainage. ENT: No nasal bleeding or discharge. Mucous membranes pale NECK: Trachea midline. No JVD. CARDIOVASCULAR: Regular rate and rhythm. + diastolic blowing murmur on aortic valve point 1-2/6 today RESPIRATORY: No accessory muscle use. b/l rales to auscultation. Breath sounds equal bilaterally. GASTROINTESTINAL: Abdomen soft, tight, distended and tender . Hepatic and splenic margins not palpable. liquid brown stool in the dignishield bag : roberson in place with good amount of urine MUSCULOSKELETAL: Extremities without clubbing, cyanosis, or edema. No obvious deformities. warmt o cool to touch feet NEUROLOGICAL: moves around, eyes opens MOves all 4 extremeties to command but is quite confused PSYCHIATRIC:unable to assess Assessment and Plan - Plan Sepsis C.diff ? VAP ; PSAE, KLEb - new infiltrates and difficulty weaning - CT and CXR look worse, though resp status improved with Previous MSSA sepsis with presumed PVE of aortic valve prosthesis, on treatment - tx included vanco+ gent w/o rifampin Acute renal insufficiency, improving slowly GFR CHF EF < 20 % sp MT troponin peaked @ 32 cont vanco + gent as a part of PVE Rx will not add rifampin while on amio 2/2 interaction with amiodarone Rifampin can be added if amiodarone is discontinued ccont cefepime and complete 7-14 days of PNA treatment Worsening leukocytosis, C.diff is likely the source Ileus New stroke worsening renal status: improved after vanco and gent stopped start cefazoline dc cefepime cont C.diff tx: po vanco resume IV flagyl rechk C.diff
[2018-02-22] MEDS: ceFAZolin 2 GM/NS 100 ML IV; Q8H IV.SIG SCH ×2 (23:38)
[2018-02-23] MEDS: Oral Hygiene Kit OROPHARYNG SCH ×4 (00:33→17:42)
[2018-02-23] MEDS: Insulin NovoLOG Aspart Correctional Sugar Inj SQ SCH ×4 (00:45→21:31)
--- NOTE | 2018-02-23 05:23 | XR ---
EXAM DATE: 02/23/2018 5:19 AM EDT AGE/SEX: 62 years / Male INDICATIONS: Shortness of breath, possible pulmonary disease. CLINICAL DATA: This is the patient's subsequent encounter. Patient reports that signs and symptoms h ave been present for 2 weeks and indicates a pain score of Nonresponsive. MEDICAL/SURGICAL HISTORY: Chronic obstructive pulmonary disease. CABG. COMPARISON: [facility], CHEST 1V SINGLE AP, 02/20/2018. . FINDINGS: There is patchy lower lobe consolidation greatest in the left lower lobe. This is stable. NG tube radha e port at the esophagogastric junction. CONCLUSION: Stable appearance of the chest. Electronically signed by: Timo Caballero MD 02/23/2018 5:21 AM EDT
[2018-02-23] MEDS ORDERED: Etomidate Inj 40 MG/20 ML Vial IV.PUSH ONE ×2 (05:41→08:00)
[2018-02-23] MEDS: Midazolam 50 MG/50 ML Inj 50 MG/50 ML BAG IV.CONT PRN ×2 (06:14→14:35)
--- NOTE | 2018-02-23 06:36 | XR ---
EXAM DATE: 02/23/2018 6:30 AM EDT AGE/SEX: 62 years / Male INDICATIONS: Post intubation CLINICAL DATA: This is the patient's initial encounter. Patient reports that signs and symptoms have been present for 1 day and indicates a pain score of Nonresponsive. MEDICAL/SURGICAL HISTORY: . Chronic obstructive pulmonary disease CABG. COMPARISON: [facility] [place], CHEST 1V SINGLE AP, 02/23/2018. . FINDINGS: The endotracheal tube tip at the inferior margin of the clavicles. NG tube courses beneath the diaphr agm. EKG leads overlie the chest. There is dense consolidation of the left lower lobe and area of ate lectasis and consolidation in the right middle lobe. Layering left effusion suspected. CONCLUSION: Hazy density overlies the left chest suspect for layering effusion with persistent consolidation of t he left lower lobe. Endotracheal tube placement as above. Electronically signed by: Timo Caballero MD 02/23/2018 6:35 AM EDT
[2018-02-23 06:38] LABS: ABG Base Excess -2.5 mmol/L (-2-2); ABG PCO2 42 mmHg (38-42); ABG PO2 90 mmHG (61-120)
--- NOTE | 2018-02-23 07:12 | P.PCN ---
Date of procedure: 02/23/18 Pre-op diagnosis: Acute respiratory failure Post-op diagnosis: same Procedure: Procedure: Endotracheal intubation Preop diagnosis: Acute respiratory failure Postop diagnosis: Same Sedation used: Etomidate 20 mg, rocuronium 50 mg IV Procedure: Patient was preoxygenated with 100% oxygen via Ambu bag with bag mask ventilation, following induction of sedation and neuromuscular blockade, direct laryngoscopy was performed using a Mac [] blade with good visualization of vocal cords. An 8 [place] ET tube was passed through the vocal cords under direct visualization up to the [] centimeter delbert and after inflating cuff of ET tube, correct placement was confirmed using bagging with good color change on CO2 detector, 5 point auscultation and chest rise with ventilation. Patient was connected to mechanical ventilation. Patient tolerated the procedure well with no immediate complications noted. Postprocedure chest x-ray was ordered.
[2018-02-23] MEDS: Amiodarone 200 MG Tablet G-TUBE SCH ×2 (09:45→22:15)
[2018-02-23] MEDS: MethylPREDNISolone Sod Succinate Inj 40 MG/ML Vial IV.PUSH SCH (09:46)
[2018-02-23] MEDS: Pregabalin 75 MG Capsule PO SCH ×2 (09:47→22:16)
[2018-02-23] MEDS: Ascorbic Acid 500 MG Tablet NG/OG SCH (09:47)
[2018-02-23] MEDS: Ferrrous Sulfate 300 MG/5 ML UDC PO SCH (09:48)
[2018-02-23] MEDS: Potassium Chloride 10 MEQ ER Capsule G-TUBE SCH ×2 (09:50→22:15)
[2018-02-23] MEDS: Senna/Docusate Sodium 8.6/50 MG Tablet PO SCH ×2 (09:50→22:16)
[2018-02-23] MEDS: Hypromellose 0.3% Opth Gel 10 GM Bottle EACH EYE SCH ×2 (09:51→22:16)
[2018-02-23 10:15] LABS: Baso # (Auto) 0.1 th/mm3 (0.0-0.2); Baso % (Auto) 0.4 % (0.0-2.0); Eos % (Auto) 0.1 % (0.0-4.0); Hematocrit 39.4 % (39.0-51.0); Hemoglobin 12.8 gm/dL (13.0-17.0); Lymph # (Auto) 0.8 th/mm3 (1.0-4.8); Lymph % (Auto) 3.1 % (9.0-44.0); Mean Corpuscular HGB Conc 32.3 % (32.0-36.0); Mean Corpuscular Hemoglobin 30.6 pg (27.0-34.0); Mean Corpuscular Volume 94.8 fL (80.0-100.0); Mean Platelet Volume 10.4 fL (7.0-11.0); Mono # (Auto) 1.5 th/mm3 (0.0-0.9); Mono % (Auto) 5.8 % (0.0-8.0); Neut % (Auto) 90.6 % (16.0-70.0); Platelet Count 184 th/mm3 (150-450); Red Blood Count 4.16 mil/mm3 (4.50-5.90); Red Cell Distribution Width 19.6 % (11.6-17.2); White Blood Count 25.3 th/mm3 (4.0-11.0)
[2018-02-23] MEDS: Chlorhexidine 0.12% Oral Kit 15 ML UDC OROPHARYNG SCH ×2 (10:15→21:27)
[2018-02-23] MEDS: Spironolactone 50 MG Tablet PO SCH (10:15)
[2018-02-23 10:43] LABS: Calcium 9.2 mg/dL (8.5-10.1); Carbon Dioxide 23.5 meq/L (21.0-32.0); Magnesium 2.5 mg/dL (1.5-2.5); Potassium 4.3 meq/L (3.5-5.1)
[2018-02-23] MEDS ORDERED: Albumin Human 5% Inj 500 ML IV.SIG ONE (12:13)
[2018-02-23] MEDS: fentaNYL 10 mcg/mL Premix Drip 2,500 MCG/250 ML BAG IV.SIG PRN (12:53)
--- NOTE | 2018-02-23 13:13 | P.PNCC ---
Subjective Subjective Remarks/Hospital Course: 62-year-old male with past medical history of [place] mechanical aortic valve (09/21/12 Dr. Gonzalez), on chronic anticoagulation with warfarin, atrial fibrillation postop from AVR , COPD on 2.5 L home O2, stroke in 2015 resulting in left-sided sensory deficits and neuropathy, osteoporosis with chronic low back pain. He was recently admitted to [facility] from 01/23 through 01/31/18 for MSSA bacteremia. It is believed that the original source of infection was a wound on his right index finger when electric drill slipped and created a puncture wound. He was discharged with right upper extremity PICC line receiving cefazolin 2 g IV every 8 hours and gentamicin 210 mg IV daily. He states that home health administered antibiotics at 17:00 and shortly thereafter he began having chills and rigors and sought medical attention at [facility]. He had no rash. Upon arrival, he was hypotensive in the low 80s. He was given 2 L S bolus but remained hypotensive so was started on Levophed. He then developed heart rate in the 140s, reportedly atrial flutter so he was started on Amiodarone drip in [place] and converted to sinus rhythm. He was transfused 2 units PRBC due to Hgb 9.3. His stool was nonbloody nonmelena but was Hemoccult positive. He was given zosyn and vancomycin. Critical care medicine was then contacted and accepted patient for transfer to [facility]. He denies tenderness/redness/drainage at PICC site. Aside from mechanical aortic valve, he has no other hardware or indwelling devices. He denies headache, cough, dysuria. He has had a few loose stools at home, but stools have sometimes been formed. He denies chest pain, does report some SOB. EKG at [place] had marked inferolateral ischemic changes. Obtained EKG upon arrival to [facility] which is improved. SUBJ 02/05: Patient remains critical ill appearing, complaints of chest tightness but denies pain. Remains on 8 mcg/min of Levophed to maintain map about 65. However increasing shortness of breath. Chest x-ray shows increasing pulmonary edema. Troponin was 27.5 currently on IV heparin therapeutic. Cardiology consult is pending at this time. I will stop on maintenance fluids give 40 mg IV Lasix and IV albumin 25 g 1. 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 IABP placed. patient emergently intubated for acute hypoxic respiratory failure secondary to cardiogenic shock and pulmonary edema. started on milrinone at 0.375 mcg/kg/min and levophed. bumex drip started. remains critically ill. 02/07: Remains critically ill remains on Levophed and milrinone. Currently diuresing well with Bumex drip. IABP in place management per cardiology-good waveform and augmentation. Chest x-ray shows adequate positioning of IABP, diffuse bilateral pulmonary edema 02/08: Remains critical but showing some signs of improvement. Diuresing very well on Bumex infusion. Remains on Levophed and milrinone. IABP one-to-one with good augmentation management per cardiology. Chest x-ray shows improving edema but with persistent bilateral effusions. Will initiate weaning trials if tolerated 02/09: Still remains on pressors, unable to wean Levophed below 2 mcg/min. Milrinone currently on 0.375 mcg/kg/min. IABP removed yesterday. On sedation hold patient wakes up but remains lethargic. Weakly squeezes hand. Urine output excellent on Bumex, 4 L output in 24 hours. Will attempt CPAP today 02/10: Multiple episodes of V. fib V. tach arrest yesterday morning. Successfully resuscitated. Yesterday night had two-minute V. fib arrest return of spontaneous circulation in sinus rhythm after DC cardioversion 1. Currently remains on milrinone and low-dose Levophed. I will try to wean off Levophed introduce low-dose beta-rasheed due to recurrent arrhythmia. Keep potassium more than 4 magnesium more than 2 02/11: Patient still critical and cardiogenic shock requiring Levophed and milrinone. Urine output improved with adding Diamox. Approximately 2 L urine output in 24 hours, creatinine remained stable. Oxygenation slightly improved FiO2 reduced to 70% now. Overall prognosis remains poor family wants to continue aggressive care 02/12: Remains critical but slight improvement in oxygenation. But continues to require Levophed and milrinone the low-dose. Urine output remains adequate. Chest x-ray shows interval improvement. Creatinine remains stable to slightly improved. Add IV albumin to improve blood pressure and to promote diuresis. 02/13 Patient remains intubated and sedated with Versed and fentanyl. Afebrile, off Levophed remains on Milrinone and Heparin drip. 02/14: Hypothermic overnight. Remains on milrinone and heparin drips. Tolerating tube feeds at 20 cc now. Positive BM. No changes neurologically 02/15 Patient remains sedated with Versed and Fentanyl drips, on Milrinone 0.5. 02/16 Patient remains intubated sedated with Versed and Fentanyl infusion. On Milrinone and Heparin drips. CT brain yesterday showed no acute findings. Afebrile. 02/17 Patient remains sedated and intubated. Afebrile, On Milrinone and Heparin drip. 02/18: Remains critical continues to require milrinone. Urine output adequate. Chest x-ray shows bilateral infiltrate effusion. CT chest to better define effusions and infiltrate. Increase Bumex to 1 mg every 8 hours. Patient is persistently weak, will attempt SBT unlikely to be successfully extubated at this time. Most likely will need tracheostomy if family desires aggressive care 02/19: Remains intubated sedated with Versed and fentanyl. Transition to Precedex to facilitate weaning trials. Patient responding slightly more to verbal command, appears to track even though not following commands. Creatinine slightly increased with increased diuresis. Chest x-ray shows improved pleural effusions. CT chest yesterday did not show significant effusion but basilar consolidation. 02/20 Patient was extubated yesterday on 10L simple mask, on Precdex, Heparin and Milrinone drips. Tmax 101.1 yesterday 02/21: Febrile. Currently on 5 L nasal cannula. Continues on heparin drip with 500 units an hour. Received bumetanide 1 mg 1 today. Positive BM 02/22: Remains on 5 L nasal cannula. Remains on heparin drip. No changes neurologically remains medically stable. SUBJECTIVE: 02/23: Intubated early this morning secondary to acute respiratory failure. Blood pressure marginal likely due to sedation. Ejection fraction less than 20% . Discussed with at bedside. She was to proceed with tracheostomy in PEG tube placement. We will plan for within the next few days. Objective Vital Signs / I&O: Vital Signs 02/22/18 13:15 02/22/18 13:30 02/22/18 13:45 Temperature Pulse Rate 90 85 86 Respiratory Rate 30 H 27 H 29 H Blood Pressure 120/75 117/76 123/77 Pulse Oximetry 94 L 95 92 L 02/22/18 14:00 02/22/18 14:15 02/22/18 14:30 Temperature Pulse Rate 86 89 89 Respiratory Rate 29 H 29 H 30 H Blood Pressure 116/76 117/78 118/80 Pulse Oximetry 95 95 97 02/22/18 14:45 02/22/18 14:46 02/22/18 15:00 Temperature Pulse Rate 90 91 H 93 H Respiratory Rate 30 H 18 30 H Blood Pressure 117/80 124/81 Pulse Oximetry 95 96 02/22/18 15:15 02/22/18 15:30 02/22/18 15:45 Temperature Pulse Rate 92 H 93 H 96 H Respiratory Rate 31 H 31 H 31 H Blood Pressure 122/81 118/77 123/79 Pulse Oximetry 94 L 94 L 91 L 02/22/18 16:00 02/22/18 20:00 02/22/18 20:31 Temperature 98.8 F 98.7 F Pulse Rate 93 H 103 H 97 H Respiratory Rate 29 H 32 H 32 H Blood Pressure 120/81 119/79 Pulse Oximetry 90 L 93 L 93 L 02/22/18 23:41 02/23/18 00:00 02/23/18 03:46 Temperature 98.8 F Pulse Rate 98 H 101 H 101 H Respiratory Rate 34 H 32 H 34 H Blood Pressure 127/79 Pulse Oximetry 96 02/23/18 04:00 02/23/18 04:27 02/23/18 05:50 Temperature 98.3 F Pulse Rate 99 H Respiratory Rate 34 H 18 Blood Pressure 128/83 Pulse Oximetry 97 93 L 96 02/23/18 08:00 02/23/18 08:30 02/23/18 08:31 Temperature 98.1 F Pulse Rate 109 H 112 H Respiratory Rate 40 H 26 H 28 H Blood Pressure 102/71 Pulse Oximetry 90 L 92 L Intake & Output 02/22/18 02/23/18 02/23/18 18:59 06:59 18:59 Intake Total 886 / 886 689 / 689 Output Total 850 / 850 800 / 800 Balance 36 / 36 -111 / -111 Weight 47.5 kg Intake: IV 200 / 200 200 / 200 KCl 40 mEq Premix Inj 40 meq In 100 / 100 100 ml @ 25 mls/hr IV.SIG Q2H PRN Rx#:[id number] Flagyl 500 MG Inj 100 ML @ 100 100 / 100 200 / 200 mls/hr IV.SIG Q8H ADRIEN Rx#: [id number] Tube Feeding 296 / 296 489 / 489 Tube Irrigant 240 / 240 Water Bolus Amount 150 / 150 Output: Stool 50 / 50 Urine Amount (Catheter) 800 / 800 800 / 800 Condom 800 / 800 800 / 800 Other: # Incontinent Voids 2 Date of Last Bowel Movement 02/22/18 02/21/18 02/23/18 # Bowel Movements 1 Result Diagrams: 02/23/18 09:57 02/23/18 09:57 Other Results: Microbiology 02/18/18 14:44 Sputum - Endotracheal Gram Stain - Final 02/18/18 14:44 Sputum - Endotracheal Sputum Culture - Final Pseudomonas aeruginosa 02/14/18 16:00 Sputum - Tracheal Aspirate Gram Stain - Final 02/14/18 16:00 Sputum - Tracheal Aspirate Sputum Culture - Final Pseudomonas aeruginosa 02/11/18 03:54 Blood - Peripheral Aerobic Blood Culture - Final No growth in 5 days 02/11/18 03:54 Blood - Peripheral Anaerobic Blood Culture - Final No growth in 5 days 02/11/18 03:49 Blood - Peripheral Aerobic Blood Culture - Final No growth in 5 days 02/11/18 03:49 Blood - Peripheral Anaerobic Blood Culture - Final No growth in 5 days 02/11/18 03:40 Sputum - Endotracheal Gram Stain - Final 02/11/18 03:40 Sputum - Endotracheal Sputum Culture - Final Pseudomonas aeruginosa Klebsiella pneumoniae 02/05/18 00:42 Blood - Peripheral Aerobic Blood Culture - Final No growth in 5 days 02/05/18 00:42 Blood - Peripheral Anaerobic Blood Culture - Final No growth in 5 days 02/05/18 00:12 Blood - Peripheral Aerobic Blood Culture - Final No growth in 5 days 02/05/18 00:12 Blood - Peripheral Anaerobic Blood Culture - Final No growth in 5 days 02/06/18 14:00 Sputum - Endotracheal Gram Stain - Final 02/06/18 14:00 Sputum - Endotracheal Sputum Culture - Final Moderate growth normal respiratory ursula Imaging: Abdomen/Bladder Ultrasound 02/05/18 00:00 CONCLUSION: 1. No evidence of hydronephrosis. 2. The echogenicity of the kidneys is equal to that of the liver which can be seen with medical renal disease. 3. Simple cyst in right kidney. 4. Suboptimal visualization of the left kidney. 5. Small amount of free fluid along the spleen. This could represent an adjacent pleural effusion. Chest X-Ray 02/05/18 01:14 CONCLUSION: 1. Left IJ central venous catheter now in place with tip at the cavoatrial junction. No evidence of pneumothorax. 2. Mild bilateral interstitial pulmonary opacity. Chest X-Ray 02/05/18 12:32 CONCLUSION: 1. Mild apparent increase in bilateral pulmonary infiltrates most characteristic of pulmonary edema. 2. Mild blunting of the costophrenic angles which could indicate small effusions. There is mild cardiomegaly again noted. Chest X-Ray 02/05/18 22:35 CONCLUSION: Increasing bilateral pulmonary infiltrates characteristic of pulmonary edema and increasing consolidation in the left lower lobe. Chest X-Ray 02/05/18 23:48 CONCLUSION: 1. Persistent bihilar mixed interstitial and airspace process suggesting some degree of vascular congestion or volume overload. No change. 2. Persistent left basilar consolidation/effusion. No change. 3. Interval placement of an endotracheal tube with the tip appropriately positioned above the renny Chest X-Ray 02/06/18 06:00 CONCLUSION: 1. Persistent bilateral, predominantly perihilar mixed interstitial and airspace process suggesting some degree of vascular congestion or volume overload. 2. Persistent left basilar consolidation/effusion. 3. Stable position of life-support tubes. Chest X-Ray 02/06/18 21:40 CONCLUSION: 1. Tip of balloon pump projecting over the junction of the aortic arch and the descending thoracic aorta. This is in good position. 2. Diffuse mixed interstitial and alveolar consolidation likely related to edema. 3. Suspected bilateral effusions. Chest X-Ray 02/08/18 06:00 CONCLUSION: 1. Improving radiographic appearance of the chest with resolving pulmonary edema. 2. Persistent bibasilar airspace disease with probable associated left-sided effusion. 3. Stable position of life-support tubes. Chest X-Ray 02/09/18 00:00 CONCLUSION: Nasogastric tube has been advanced into the stomach. Otherwise no significant change; bilateral airspace opacities and small effusions persist. Chest X-Ray 02/09/18 07:06 CONCLUSION: 1. Left lung base opacity is present may be due to a combination of consolidation and or pleural effusion. 2. The tip of the NG tube is in distal esophagus and is to be advanced. Chest X-Ray 02/09/18 15:00 CONCLUSION: Bilateral lower lobe atelectasis versus pneumonia. There has been no significant change when compared to the prior exam. Chest X-Ray 02/10/18 06:00 CONCLUSION: 1. No significant interval change. 2. Stable bilateral lower lobe airspace disease with trace pleural effusions. Chest X-Ray 02/11/18 06:00 CONCLUSION: 1. Stable tubes and lines. 2. Improved aeration in the right lower lung zone. 3. Persistent left lower lung zone airspace disease and likely trace pleural effusion. Chest X-Ray 02/12/18 06:00 CONCLUSION: 1. No significant interval change. 2. Stable ETT and NGT. 3. Stable mild left lower lung zone airspace disease and likely trace pleural effusion. Chest X-Ray 02/13/18 06:00 CONCLUSION: Increased opacification now noted in the left lung base which could indicate infiltrate and/or effusion. Chest X-Ray 02/15/18 06:00 CONCLUSION: Hazy opacity is now noted in the perihilar regions and both lung bases as well as a small left effusion. The findings are most characteristic of congestive heart failure. Head CT 02/15/18 12:23 CONCLUSION: 1. Negative CT Head non contrast. . Head MRI 02/16/18 08:28 CONCLUSION: 1. New focus of restricted diffusion high along the right cerebral vertex measuring 8 mm consistent with a new small focal acute infarction. 2. There is a new 5 mm area restricted diffusion high along the left cerebral vertex consistent with a new small focal acute infarction. 3. 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 This area is stable compared to the prior examination. 4. Stable bilateral cortical atrophy and mild chronic white matter changes. 5. Chronic bilateral mastoiditis. Abdomen X-Ray 02/17/18 00:00 CONCLUSION: Nonspecific bowel gas pattern. Chest CT 02/18/18 00:00 CONCLUSION: 1. Increasing basilar and dependent consolidation in both lungs most characteristic of pneumonia or aspiration. 2. Near complete resolution of previous small effusions. 3. Osteopenia with stable compression deformities in the spine. 4. Previous sternotomy with aortic valve replacement. 5. Right-sided central line, ET tube and NG tube in good position. Chest X-Ray 02/18/18 00:00 CONCLUSION: 1. Persistent left lower lobe consolidation and increasing partially consolidative opacities in the right lower lung. Chest X-Ray 02/19/18 06:00 CONCLUSION: 1. Persistent left lower lobe consolidation. 2. Improving right lower lung infiltrate. Chest X-Ray 02/20/18 06:00 CONCLUSION: Bilateral infiltrates are noted as above. Chest X-Ray 02/23/18 05:59 CONCLUSION: Hazy density overlies the left chest suspect for layering effusion with persistent consolidation of the left lower lobe. Endotracheal tube placement as above. Chest X-Ray 02/23/18 06:00 CONCLUSION: Stable appearance of the chest. Objective Remarks: GENERAL: 62-year-old male lying in bed in NAD orotracheally intubated SKIN: cool and poorly perfused. HEAD: Atraumatic. Normocephalic. EYES: Pupils equal and round, 2 mm and reactive. No injection or drainage. ENT: No nasal bleeding or discharge. Orotracheally intubated. NG tube in right nares NECK: Trachea midline. Supple, no JVD, no adenopathy/thyromegaly. Left IJ is clean dry and intact CARDIOVASCULAR: RRR. S1, S2. No S4. No murmurs rubs or gallops. RESPIRATORY: B/L equal air entry. Bilateral rhonchorous breath sounds. GASTROINTESTINAL: Abdomen soft, non-tender, nondistended. no guarding. MUSCULOSKELETAL: Extremities with trace bilateral lower extremity edema NEUROLOGICAL: Arousable and follows commands. Very vocal., no focal musculoskeletal or sensory deficits Assessment and Plan - Assessment and Plan Plan: NEURO/PSYCH: History of stroke in 2015 Neuropathy left upper and lower extremity Chronic low back pain Acetaminophen 650 every 6 hours as needed fever 02/15 CT brain: No acute findings. 02/15 EEG : Encephalopathy, no epileptiform activity MRI brain 02/16: New small focal acute infarction right cerebral vertex and also left cerebral vertex. Neuro has followed. Continue ASA 81 mg daily. Continue pregabalin 150 mg p.o. twice daily. Hold duloxetine 90 mg p.o. daily. RESP: Acute hypoxic respiratory failure COPD on 2.5 L home O2 currently on 5 L Prior tobacco abuse Bilateral pleural effusions PRVC 18/500/40 Albuterol/ipratropium aerosols every 4 hours with albuterol aerosols every 2 hours as needed for dyspnea methylprednisolone succinate 40mg IV daily [facility] [place]: V. [place]ach/V. fib arrest NSTEMI Cardiogenic shock Acute systolic heart failure Atrial fibrillation with RVR [place] mechanical aortic valve (09/21/12 Dr. Gonzalez) s/p Tricuspid annuloplasty Discontinue milrinone 0.25 mgc/kg/min 02/21 Monitor HR and BP keep MAP>65mmHg s/p cath And PCI -proximal LAD and large diagonal 90% stenosis, 2 BMS stent 02/05, mid LAD vasospasm post PCI Continue aspirin 81 mg daily, clopidogrel 75 mg daily, amiodarone 400mg TID, carvedilol 3.125mg BID Bumetanide 1mg IV q8h, reduce to 1 mg IV q24. discontinued today 02/21. Spironolactone 50 mg twice daily Heparin drip currently at 500 units an hour. PTT therapeutic. Continue atorvastatin 40 mg nightly. Off IABP 02/08/18 [place] 01/23/18no vegetation. Normal aortic mechanical valve with trivial aortic insufficiency. Tricuspid annuloplasty. Mild to moderate LV generalized hypokinesis Echo from 02/05: EF <20%, diffuse hypokinesis, bioprosthetic valve [employer] is Romana Bartlett GI: Moderate protein calorie malnutrition with hypoalbuminemia Speech eval, diet per speech, if fails will restart tube feeds-Jevity 1.5 currently at 15 cc an hour. Goal 50 cc an hour Lansoprazole for stress ulcer prophylactic Had normal EGD on 10/21/17 FEN/RENAL: BPH Acute kidney injury-worsening Hypopotassemia Hypernatremia Cano due to aggressive diuresis. close monitoring of uop Monitor renal function, I/O's, Renal ultrasound to evaluate for evidence of obstruction -did not show any obstruction Cr increased 1.67-2.14 Discontinued bumetanide 1mg IV daily , spironolactone 50 mg BID decreased to 25 mg twice daily. 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 difficile colitis PICC removed Continue IV cefepime. Discontinue IV vancomycin and gentamicin 02/20 C.diff tx: po vanco + IV flagyl 02/11/18 Infectious disease following 02/18 Sputum: Pseudomonas 02/14 Sputum: Pseudomonas 02/11 Sputum cx: Pseudomonas, Kleb pneumonia BC 02/11, 02/06: NGTD HEME: Chronic normocytic anemia Iron deficiency Leukocytosis Continue ferrous sulfate 300 milligrams liquid daily. Received 2 units packed red cells in [place] ER due to anemia and shock. Monitor CBC ENDO: SSI to maintain euglycemia PROPH: Heparin drip. Protonix for stress ulcer prophylaxis ACCESS: Right radial art line placed in the emergency department 02/04. Left IJ central line placed 02/05/18. Will attempt to discontinue 02/22 d/c Art line. Palliative care is following Level 3 Discussed with at bedside. Request continued aggressive care with tracheostomy and PEG tube placement.
[2018-02-23] MEDS: ceFAZolin 2 GM/NS 100 ML IV; Q8H IV.SIG SCH ×4 (15:49→22:18)
[2018-02-23] MEDS: Heparin Drip 25,000 UNIT/250 ML BAG IV.CONT PRN (16:10)
--- NOTE | 2018-02-23 16:55 | P.PNPAL ---
Reason for Visit Reason for visit: a. To assist with evaluation and management of symptoms including: pain, dyspnea, weakness b. To assist medical decision maker(s) with: better understanding of current medical conditions; weighing benefits/burdens of medical treatment options; making medical treatment decisions. Subjective Subjective/Interval History: Pt reintubated this morning 2/2 acute respiratory failure. FiO2 50%, sat 92%. On 3 ml/hr versed, 5ml/hr fentanyl. CXR shows layering effusion with persistent consolidation. Appears comfortable on my exam. Hypotensive 81/59. Per RN levophed to resume. Per [facility] plans for trach and PEG in next few days. Family/Friend Interactions: Brief phone discussion with . SHe acknowledges pt is critical. "the back and forth was anticipated on my end...he just wasn't ready to come off the vent. " SHe feels her needs more time and wants to proceed with trach and PEG. Provided emotional support. Objective Vital Signs: Vital Signs 02/22/18 20:00 02/22/18 20:31 02/22/18 23:41 Temperature 98.7 F Pulse Rate 103 H 97 H 98 H Respiratory Rate 32 H 32 H 34 H Blood Pressure 119/79 Pulse Oximetry 93 L 93 L 02/23/18 00:00 02/23/18 03:46 02/23/18 04:00 Temperature 98.8 F 98.3 F Pulse Rate 101 H 101 H 99 H Respiratory Rate 32 H 34 H 34 H Blood Pressure 127/79 128/83 Pulse Oximetry 96 97 02/23/18 04:27 02/23/18 05:50 02/23/18 08:00 Temperature 98.1 F Pulse Rate 109 H Respiratory Rate 18 40 H Blood Pressure 102/71 Pulse Oximetry 93 L 96 90 L 02/23/18 08:30 02/23/18 08:31 Temperature Pulse Rate 112 H Respiratory Rate 26 H 28 H Blood Pressure Pulse Oximetry 92 L Intake & Output 02/22/18 02/23/18 02/23/18 18:59 06:59 18:59 Intake Total 886 / 886 789 / 789 300 / 300 Output Total 850 / 850 800 / 800 Balance 36 / 36 -11 / -11 300 / 300 Weight 47.5 kg Intake: IV 200 / 200 300 / 300 300 / 300 Heparin/D5W 25,000 U/250 mL 25, 250 / 250 000 unit In 250 ml @ 800 UNITS/ HR 8 mls/hr IV.CONT TITRATE PRN Rx#:[id number] Versed Inj 50 mg In 50 ml @ 2 50 / 50 MG/HR 2 mls/hr IV.CONT TITRATE PRN Rx#:[id number] KCl 40 mEq Premix Inj 40 meq In 100 / 100 100 ml @ 25 mls/hr IV.SIG Q2H PRN Rx#:[id number] Ancef Inj 2,000 MG In NS Inj 80 100 / 100 ML @ 200 mls/hr IV.SIG Q12H ADRIEN Rx#:[id number] Flagyl 500 MG Inj 100 ML @ 100 100 / 100 200 / 200 mls/hr IV.SIG Q8H ADRIEN Rx#: [id number] Tube Feeding 296 / 296 489 / 489 Tube Irrigant 240 / 240 Water Bolus Amount 150 / 150 Output: Stool 50 / 50 Urine Amount (Catheter) 800 / 800 800 / 800 Condom 800 / 800 800 / 800 Other: # Incontinent Voids 2 Date of Last Bowel Movement 02/22/18 02/21/18 02/23/18 # Bowel Movements 1 Physical Exam: CONSTITUTIONAL/GENERAL: ill appearing and cachectic male, intubated TUBES/LINES/DRAINS: roberson, ET tube, NGT, Left IJ, right arterial line, rectal bag SKIN: Sallow. No jaundice, rashes, or lesions. No wounds seen anteriorly. Not diaphoretic. HEAD: Atraumatic. Normocephalic. + temporal wasting EYES: eyes glassy. No scleral icterus. No injection or drainage. Fundi not examined. ENT: Nose without bleeding or purulent drainage. CARDIOVASCULAR: RRR without murmurs, gallops, or rubs. RESPIRATORY/CHEST: Symmetric, unlabored respirations. lung sounds diminished GASTROINTESTINAL: Abdomen soft, NONdistended. No hepato-splenomegaly, or palpable masses. Bowel sounds pos. +rectal bag with stool GENITOURINARY: Without palpable bladder distension. Roberson catheter in place. MUSCULOSKELETAL: Extremities without clubbing, cyanosis. No mottling NEUROLOGICAL: sedated on vent Diagnostic Tests Laboratory: Laboratory Results - last 72 hr 02/20/18 02/20/18 02/21/18 17:32 23:37 03:50 WBC 16.2 H RBC 3.33 L Hgb 10.0 L Hct 30.1 L MCV 90.3 MCH 29.9 MCHC 33.1 RDW 17.9 H Plt Count 193 MPV 10.0 Neut % (Auto) 87.8 H Lymph % (Auto) 4.1 L [place] % (Auto) 8.0 Eos % (Auto) 0.0 Baso % (Auto) 0.1 Neut # (Auto) 14.2 H Lymph # (Auto) 0.7 L [place] # (Auto) 1.3 H Eos # (Auto) 0.0 Baso # (Auto) 0.0 WBC Differential . Differential Comment Auto diff final APTT Puncture Site Patient Temperature O2 Saturation ABG pH ABG pCO2 ABG pO2 ABG HCO3 ABG O2 Content ABG Base Excess ABG Methemoglobin Hemoglobin Carboxyhemoglobin O2 Delivery Device Vent Setting Inspired O2 Critical Value Sodium Potassium Chloride Carbon Dioxide Anion Gap BUN Creatinine Estimated GFR POC Glucose 157 H 118 H Random Glucose Calcium Phosphorus Magnesium Total Bilirubin AST ALT Alkaline Phosphatase Total Protein Albumin 02/21/18 02/21/18 02/21/18 03:50 03:50 05:35 WBC RBC Hgb Hct MCV MCH MCHC RDW Plt Count MPV Neut % (Auto) Lymph % (Auto) [place] % (Auto) Eos % (Auto) Baso % (Auto) Neut # (Auto) Lymph # (Auto) [place] # (Auto) Eos # (Auto) Baso # (Auto) WBC Differential Differential Comment APTT 41.3 H Puncture Site Patient Temperature O2 Saturation ABG pH ABG pCO2 ABG pO2 ABG HCO3 ABG O2 Content ABG Base Excess ABG Methemoglobin Hemoglobin Carboxyhemoglobin O2 Delivery Device Vent Setting Inspired O2 Critical Value Sodium 144 Potassium 2.9 L* Chloride 107 Carbon Dioxide 26.8 Anion Gap 10 BUN 66 H Creatinine 2.02 H Estimated GFR 33 L POC Glucose 116 H Random Glucose 109 H Calcium 9.0 Phosphorus 2.5 Magnesium 2.1 Total Bilirubin 0.9 AST 28 ALT 20 Alkaline Phosphatase 55 Total Protein 6.9 D Albumin 2.8 L 02/21/18 02/21/18 02/22/18 12:37 17:54 01:14 WBC RBC Hgb Hct MCV MCH MCHC RDW Plt Count MPV Neut % (Auto) Lymph % (Auto) [place] % (Auto) Eos % (Auto) Baso % (Auto) Neut # (Auto) Lymph # (Auto) [place] # (Auto) Eos # (Auto) Baso # (Auto) WBC Differential Differential Comment APTT Puncture Site Patient Temperature O2 Saturation ABG pH ABG pCO2 ABG pO2 ABG HCO3 ABG O2 Content ABG Base Excess ABG Methemoglobin Hemoglobin Carboxyhemoglobin O2 Delivery Device Vent Setting Inspired O2 Critical Value Sodium Potassium Chloride Carbon Dioxide Anion Gap BUN Creatinine Estimated GFR POC Glucose 135 H 161 H 154 H Random Glucose Calcium Phosphorus Magnesium Total Bilirubin AST ALT Alkaline Phosphatase Total Protein Albumin 02/22/18 02/22/18 02/22/18 05:00 05:00 05:00 WBC 17.3 H RBC 3.87 L Hgb 11.9 L Hct 36.0 L MCV 92.8 MCH 30.7 MCHC 33.1 RDW 18.1 H Plt Count 187 MPV 10.5 Neut % (Auto) 88.9 H Lymph % (Auto) 3.8 L [place] % (Auto) 7.2 Eos % (Auto) 0.0 Baso % (Auto) 0.1 Neut # (Auto) 15.4 H Lymph # (Auto) 0.7 L [place] # (Auto) 1.2 H Eos # (Auto) 0.0 Baso # (Auto) 0.0 WBC Differential . Differential Comment Auto diff final APTT 41.4 H Puncture Site Patient Temperature O2 Saturation ABG pH ABG pCO2 ABG pO2 ABG HCO3 ABG O2 Content ABG Base Excess ABG Methemoglobin Hemoglobin Carboxyhemoglobin O2 Delivery Device Vent Setting Inspired O2 Critical Value Sodium 149 H Potassium 3.0 L Chloride 111 H Carbon Dioxide 24.4 Anion Gap 14 BUN 59 H Creatinine 1.67 H Estimated GFR 42 L POC Glucose Random Glucose 151 H Calcium 9.2 Phosphorus 2.6 Magnesium 2.2 Total Bilirubin 0.8 AST 26 ALT 21 Alkaline Phosphatase 66 Total Protein 7.6 D Albumin 2.9 L 02/22/18 02/22/18 02/23/18 12:15 17:04 00:45 WBC RBC Hgb Hct MCV MCH MCHC RDW Plt Count MPV Neut % (Auto) Lymph % (Auto) [place] % (Auto) Eos % (Auto) Baso % (Auto) Neut # (Auto) Lymph # (Auto) [place] # (Auto) Eos # (Auto) Baso # (Auto) WBC Differential Differential Comment APTT Puncture Site Patient Temperature O2 Saturation ABG pH ABG pCO2 ABG pO2 ABG HCO3 ABG O2 Content ABG Base Excess ABG Methemoglobin Hemoglobin Carboxyhemoglobin O2 Delivery Device Vent Setting Inspired O2 Critical Value Sodium Potassium Chloride Carbon Dioxide Anion Gap BUN Creatinine Estimated GFR POC Glucose 210 H 176 H 189 H Random Glucose Calcium Phosphorus Magnesium Total Bilirubin AST ALT Alkaline Phosphatase Total Protein Albumin 02/23/18 02/23/18 02/23/18 00:47 06:30 06:32 WBC RBC Hgb Hct MCV MCH MCHC RDW Plt Count MPV Neut % (Auto) Lymph % (Auto) [place] % (Auto) Eos % (Auto) Baso % (Auto) Neut # (Auto) Lymph # (Auto) [place] # (Auto) Eos # (Auto) Baso # (Auto) WBC Differential Differential Comment APTT Puncture Site Left brachial Patient Temperature 98.6 O2 Saturation 93 ABG pH 7.35 L ABG pCO2 42 ABG pO2 90 ABG HCO3 22 ABG O2 Content 16.3 ABG Base Excess -2.5 L ABG Methemoglobin 1.4 Hemoglobin 12.4 Carboxyhemoglobin 0.8 O2 Delivery Device Ventilator Vent Setting 18/500/it1.0/5peep Inspired O2 50 Critical Value No Sodium Potassium 4.1 D Chloride Carbon Dioxide Anion Gap BUN Creatinine Estimated GFR POC Glucose 195 H Random Glucose Calcium Phosphorus Magnesium Total Bilirubin AST ALT Alkaline Phosphatase Total Protein Albumin 02/23/18 02/23/18 02/23/18 08:32 09:57 09:57 WBC RBC Hgb Hct MCV MCH MCHC RDW Plt Count MPV Neut % (Auto) Lymph % (Auto) [place] % (Auto) Eos % (Auto) Baso % (Auto) Neut # (Auto) Lymph # (Auto) [place] # (Auto) Eos # (Auto) Baso # (Auto) WBC Differential Differential Comment APTT 39.3 H Puncture Site Patient Temperature O2 Saturation ABG pH ABG pCO2 ABG pO2 ABG HCO3 ABG O2 Content ABG Base Excess ABG Methemoglobin Hemoglobin Carboxyhemoglobin O2 Delivery Device Vent Setting Inspired O2 Critical Value Sodium 153 H Potassium 4.3 Chloride 121 H D Carbon Dioxide 23.5 Anion Gap 9 BUN 82 H Creatinine 2.14 H Estimated GFR 31 L POC Glucose 144 H Random Glucose 156 H Calcium 9.2 Phosphorus 3.0 Magnesium 2.5 Total Bilirubin AST ALT Alkaline Phosphatase Total Protein Albumin 02/23/18 02/23/18 09:57 13:06 WBC 25.3 H RBC 4.16 L Hgb 12.8 L Hct 39.4 MCV 94.8 MCH 30.6 MCHC 32.3 RDW 19.6 H Plt Count 184 MPV 10.4 Neut % (Auto) 90.6 H Lymph % (Auto) 3.1 L [place] % (Auto) 5.8 Eos % (Auto) 0.1 Baso % (Auto) 0.4 Neut # (Auto) 23.0 H Lymph # (Auto) 0.8 L [place] # (Auto) 1.5 H Eos # (Auto) 0.0 Baso # (Auto) 0.1 WBC Differential . Differential Comment Auto diff final APTT Puncture Site Patient Temperature O2 Saturation ABG pH ABG pCO2 ABG pO2 ABG HCO3 ABG O2 Content ABG Base Excess ABG Methemoglobin Hemoglobin Carboxyhemoglobin O2 Delivery Device Vent Setting Inspired O2 Critical Value Sodium Potassium Chloride Carbon Dioxide Anion Gap BUN Creatinine Estimated GFR POC Glucose 148 H Random Glucose Calcium Phosphorus Magnesium Total Bilirubin AST ALT Alkaline Phosphatase Total Protein Albumin Result Diagrams: 02/23/18 09:57 02/23/18 09:57 Imaging: ITS Impressions Abdomen/Bladder Ultrasound 02/05/18 00:00 CONCLUSION: 1. No evidence of hydronephrosis. 2. The echogenicity of the kidneys is equal to that of the liver which can be seen with medical renal disease. 3. Simple cyst in right kidney. 4. Suboptimal visualization of the left kidney. 5. Small amount of free fluid along the spleen. This could represent an adjacent pleural effusion. Head CT 02/15/18 12:23 CONCLUSION: 1. Negative CT Head non contrast. . Head MRI 02/16/18 08:28 CONCLUSION: 1. New focus of restricted diffusion high along the right cerebral vertex measuring 8 mm consistent with a new small focal acute infarction. 2. There is a new 5 mm area restricted diffusion high along the left cerebral vertex consistent with a new small focal acute infarction. 3. 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 This area is stable compared to the prior examination. 4. Stable bilateral cortical atrophy and mild chronic white matter changes. 5. Chronic bilateral mastoiditis. Abdomen X-Ray 02/17/18 00:00 CONCLUSION: Nonspecific bowel gas pattern. Chest CT 02/18/18 00:00 CONCLUSION: 1. Increasing basilar and dependent consolidation in both lungs most characteristic of pneumonia or aspiration. 2. Near complete resolution of previous small effusions. 3. Osteopenia with stable compression deformities in the spine. 4. Previous sternotomy with aortic valve replacement. 5. Right-sided central line, ET tube and NG tube in good position. Chest X-Ray 02/23/18 06:00 CONCLUSION: Stable appearance of the chest. Procedures: 02/05 left IJ placement 02/05 retrograde left heart cath, stent placement, IABP placement 02/05 intubated 02/19 extubated 02/20 reintubated Assessment and Plan - Disease Oriented Problem List (1) Cardiogenic shock (2) Ventricular fibrillation (3) Hypokalemia (4) CAD (coronary artery disease) Pertinent Non-Medical Issues: Psychosocial: On disability. 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 Spiritual: Yazidi, non-christian. [employer] has visited, they also have religious rivet flunky visiting. Legal: Pt not capacitated to make medical decisions. Unclear if he will regain capacity. Per [place] statutes decision making would fall to as proxy. Ethical issues impacting care: none identified Important Contacts: Maria Isabel Tolentino [phone] sister Yvonne Valdivia [phone] Prognosis: 62 yo male s/p aortic valve replacement 2012 who suffered significant NSTEMI, EF <20% on presentation, troponins up to 32. Echo also showed global hypokinesis. Not clear how much of heart failure was present prior to NSTEMI. s /p heart cath, LAD stenting complicated by vasospasm. 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 He has had several runs of v fib and v tach requiring chest compressions, shocks. He has underlying COPD and was having activity intolerance prior to this event. Extubated 02/19 and still failing swallow evals. His prognosis for complete recover to baseline is quite poor. Unlikely he would tolerate rehab if his EF remains < 20%. He remains at high risk for continued complications including but not limited to recurrent arrhythmias, multi-organ injury; and at risk for further decline. He is hospice appropriate should goals be in line with comfort. Code Status: Full Code Plan: - LEGAL DECISON MAKER - Pt not clearly capacitated to make medical decisions, but his mental status is improving. Per [place] statutes decision making would fall to as proxy. Family working together to make decisions - , wifes RN sister, and pt's sister. - CODE STATUS- full code - GOALS - Aggressive. is optimistic feels God will heal her . SHe feels her needs more time and wants to proceed with trach and PEG. - SYMPTOMS - * dyspnea - multifactorial - hx COPD, EF < 20%, class 4 heart failure. extubated 02/19. Reintubated 02/23. CXR showing layering effusion with persistent consolidaiton left lung. fiO2 50%. hypotensive, levophed starting. PRN duonebs , scheduled duonebs, versed 3ml/hr * pain - multifactorial, lines, ET tube, catheters, hx chronic back pain 2/2 "chronic fractures," c diff infection. mild abd distention, TTP. On PO vanc, flagyl. sees pain mgmt, been on hydrocodone , reportedly same dosage and frequency for 6 years. now on fentanyl gtt 5ml/hr * debility/weakness - multifactorial. profoundly emaciated and ill appearing, per this is his usual appearance. PEG tube placement pending. BLE weak, L> R. cardiac function prob would not allow aggressive rehab. * - d/w RN Kippy - eforsce verified - Palliative care will continue to follow during hospital course as condition evolves, to assist patient/decision-maker with understanding of medical conditions, weighing benefits/burdens of treatment options, for clarification of goals of treatment. Additionally will assist with any symptoms of palliative concern Attestation Attestation: To help prompt me to consider important information that might be impacting today's encounter and assessment, information from prior notes written by myself or my colleagues may have been "brought forward" into today's note. My signature on this note, however, is an attestation that I personally performed the exam, history, and/or decision-making noted today, and, unless otherwise indicated, the interactions with patient, family, and staff as well as the review of records all occurred today. I also attest that the listed assessment and stated plan reflect my best clinical judgment today based on the combination of historical information, prior notes, and today's exam/ interactions. When time spent is documented, it refers only to time spent today by the signer, or if indicated, combined time spent today by collaborating physician/nurse practitioner.
[2018-02-23] MEDS: Spironolactone 25 MG Tablet PO SCH (17:42)
[2018-02-23] MEDS: Beneprotein Powder Packet G-TUBE SCH (21:30)
[2018-02-24] MEDS: Oral Hygiene Kit OROPHARYNG SCH ×5 (04:00→23:33)
[2018-02-24] MEDS: Insulin NovoLOG Aspart Correctional Sugar Inj SQ SCH ×4 (05:27→17:23)
[2018-02-24] MEDS: Midazolam 50 MG/50 ML Inj 50 MG/50 ML BAG IV.CONT PRN ×3 (05:40→17:49)
--- NOTE | 2018-02-24 06:22 | XR ---
EXAM DATE: 02/24/2018 5:58 AM EDT AGE/SEX: 62 years / Male INDICATIONS: Shortness of breath. CLINICAL DATA: This is the patient's subsequent encounter. Patient reports that signs and symptoms h ave been present for 2 weeks and indicates a pain score of Nonresponsive. MEDICAL/SURGICAL HISTORY: . Chronic obstructive pulmonary disease CABG. COMPARISON: [facility] [place], CHEST 1V SINGLE AP, 02/23/2018. . FINDINGS: Portable AP view of the chest demonstrates a normal-sized cardiac silhouette in this patient post med nichelle sternotomy and valve replacement. ETT and nasogastric tube remain present. EKG lines overlie the patient. Lungs are underinflated and there is atelectasis at the right lung base and stable left basi lar pleural-parenchymal opacity obscuring the hemidiaphragm. No pneumothorax is identified. CONCLUSION: Stable chest x-ray with atelectasis at the right lung base and volume loss versus consolidation in th e left lower lobe. Electronically signed by: Regan Bond MD 02/24/2018 6:20 AM EDT
[2018-02-24] MEDS ORDERED: Vancomycin Consult Pharmacy 1 EACH OTHER SCH (07:00)
[2018-02-24 07:59] LABS: Baso % (Auto) 0.2 % (0.0-2.0); Eos % (Auto) 0.1 % (0.0-4.0); Hematocrit 33.9 % (39.0-51.0); Hemoglobin 10.7 gm/dL (13.0-17.0); Lymph # (Auto) 0.9 th/mm3 (1.0-4.8); Lymph % (Auto) 4.5 % (9.0-44.0); Mean Corpuscular HGB Conc 31.6 % (32.0-36.0); Mean Corpuscular Hemoglobin 30.5 pg (27.0-34.0); Mean Corpuscular Volume 96.4 fL (80.0-100.0); Mean Platelet Volume 10.4 fL (7.0-11.0); Mono # (Auto) 0.9 th/mm3 (0.0-0.9); Mono % (Auto) 4.6 % (0.0-8.0); Neut # (Auto) 17.3 th/mm3 (1.8-7.7); Neut % (Auto) 90.6 % (16.0-70.0); Red Blood Count 3.52 mil/mm3 (4.50-5.90); Red Cell Distribution Width 19.8 % (11.6-17.2); White Blood Count 19.1 th/mm3 (4.0-11.0)
[2018-02-24] MEDS: Chlorhexidine 0.12% Oral Kit 15 ML UDC OROPHARYNG SCH ×2 (08:22→21:15)
[2018-02-24] MEDS: Ascorbic Acid 500 MG Tablet NG/OG SCH (08:24)
[2018-02-24] MEDS: Senna/Docusate Sodium 8.6/50 MG Tablet PO SCH ×2 (08:25→21:14)
[2018-02-24] MEDS: Amiodarone 200 MG Tablet G-TUBE SCH ×2 (08:25→21:14)
[2018-02-24] MEDS: Potassium Chloride 10 MEQ ER Capsule G-TUBE SCH ×2 (08:26→21:14)
[2018-02-24] MEDS: Pregabalin 75 MG Capsule PO SCH ×2 (08:26→21:14)
[2018-02-24] MEDS: Ferrrous Sulfate 300 MG/5 ML UDC PO SCH (08:27)
[2018-02-24] MEDS: MethylPREDNISolone Sod Succinate Inj 40 MG/ML Vial IV.PUSH SCH (08:27)
[2018-02-24 08:29] LABS: Alanine Aminotransferase 12 U/L (12-78); Albumin 2.9 g/dL (3.4-5.0); Alkaline Phosphatase 57 U/L (45-117); Anion Gap 11 meq/L (5-15); Aspartate Aminotransferase 33 U/L (15-37); Blood Urea Nitrogen 101 mg/dL (7-18); Calcium 8.7 mg/dL (8.5-10.1); Carbon Dioxide 21.2 meq/L (21.0-32.0); Chloride 121 meq/L (98-107); Glomerular Filtration Rate 22 mL/min (>89); Glucose,Random 202 mg/dL (74-106); Magnesium 2.6 mg/dL (1.5-2.5); Phosphorus 4.6 mg/dL (2.5-4.9); Potassium 4.8 meq/L (3.5-5.1); Sodium 153 meq/L (136-145); Total Protein 6.7 g/dL (6.4-8.2)
[2018-02-24] MEDS: Hypromellose 0.3% Opth Gel 10 GM Bottle EACH EYE SCH ×2 (08:39→21:15)
[2018-02-24 08:47] LABS: Ovalocytes 1+
[2018-02-24] MEDS: fentaNYL 10 mcg/mL Premix Drip 2,500 MCG/250 ML BAG IV.SIG PRN (08:47)
[2018-02-24 08:48] LABS: Acanthocytes Occ; Platelet Morphology Normal (Normal)
[2018-02-24] MEDS: Beneprotein Powder Packet G-TUBE SCH ×2 (09:46→12:38)
[2018-02-24] MEDS ORDERED: Vancomycin Inj 750 MG in Sodium Chlor 0.9% Inj 250 ML IV.SIG ONE (10:00)
[2018-02-24] MEDS: Spironolactone 25 MG Tablet PO SCH ×2 (11:33→17:22)
--- NOTE | 2018-02-24 12:47 | P.PNCC ---
Subjective Subjective Remarks/Hospital Course: 62-year-old male with past medical history of [place] mechanical aortic valve (09/21/12 Dr. Gonzalez), on chronic anticoagulation with warfarin, atrial fibrillation postop from AVR , COPD on 2.5 L home O2, stroke in 2015 resulting in left-sided sensory deficits and neuropathy, osteoporosis with chronic low back pain. He was recently admitted to [facility] from 01/23 through 01/31/18 for MSSA bacteremia. It is believed that the original source of infection was a wound on his right index finger when electric drill slipped and created a puncture wound. He was discharged with right upper extremity PICC line receiving cefazolin 2 g IV every 8 hours and gentamicin 210 mg IV daily. He states that home health administered antibiotics at 17:00 and shortly thereafter he began having chills and rigors and sought medical attention at [facility]. He had no rash. Upon arrival, he was hypotensive in the low 80s. He was given 2 L S bolus but remained hypotensive so was started on Levophed. He then developed heart rate in the 140s, reportedly atrial flutter so he was started on Amiodarone drip in [place] and converted to sinus rhythm. He was transfused 2 units PRBC due to Hgb 9.3. His stool was nonbloody nonmelena but was Hemoccult positive. He was given zosyn and vancomycin. Critical care medicine was then contacted and accepted patient for transfer to [facility]. He denies tenderness/redness/drainage at PICC site. Aside from mechanical aortic valve, he has no other hardware or indwelling devices. He denies headache, cough, dysuria. He has had a few loose stools at home, but stools have sometimes been formed. He denies chest pain, does report some SOB. EKG at [place] had marked inferolateral ischemic changes. Obtained EKG upon arrival to [facility] which is improved. SUBJ 02/05: Patient remains critical ill appearing, complaints of chest tightness but denies pain. Remains on 8 mcg/min of Levophed to maintain map about 65. However increasing shortness of breath. Chest x-ray shows increasing pulmonary edema. Troponin was 27.5 currently on IV heparin therapeutic. Cardiology consult is pending at this time. I will stop on maintenance fluids give 40 mg IV Lasix and IV albumin 25 g 1. 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 IABP placed. patient emergently intubated for acute hypoxic respiratory failure secondary to cardiogenic shock and pulmonary edema. started on milrinone at 0.375 mcg/kg/min and levophed. bumex drip started. remains critically ill. 02/07: Remains critically ill remains on Levophed and milrinone. Currently diuresing well with Bumex drip. IABP in place management per cardiology-good waveform and augmentation. Chest x-ray shows adequate positioning of IABP, diffuse bilateral pulmonary edema 02/08: Remains critical but showing some signs of improvement. Diuresing very well on Bumex infusion. Remains on Levophed and milrinone. IABP one-to-one with good augmentation management per cardiology. Chest x-ray shows improving edema but with persistent bilateral effusions. Will initiate weaning trials if tolerated 02/09: Still remains on pressors, unable to wean Levophed below 2 mcg/min. Milrinone currently on 0.375 mcg/kg/min. IABP removed yesterday. On sedation hold patient wakes up but remains lethargic. Weakly squeezes hand. Urine output excellent on Bumex, 4 L output in 24 hours. Will attempt CPAP today 02/10: Multiple episodes of V. fib V. tach arrest yesterday morning. Successfully resuscitated. Yesterday night had two-minute V. fib arrest return of spontaneous circulation in sinus rhythm after DC cardioversion 1. Currently remains on milrinone and low-dose Levophed. I will try to wean off Levophed introduce low-dose beta-rasheed due to recurrent arrhythmia. Keep potassium more than 4 magnesium more than 2 02/11: Patient still critical and cardiogenic shock requiring Levophed and milrinone. Urine output improved with adding Diamox. Approximately 2 L urine output in 24 hours, creatinine remained stable. Oxygenation slightly improved FiO2 reduced to 70% now. Overall prognosis remains poor family wants to continue aggressive care 02/12: Remains critical but slight improvement in oxygenation. But continues to require Levophed and milrinone the low-dose. Urine output remains adequate. Chest x-ray shows interval improvement. Creatinine remains stable to slightly improved. Add IV albumin to improve blood pressure and to promote diuresis. 02/13 Patient remains intubated and sedated with Versed and fentanyl. Afebrile, off Levophed remains on Milrinone and Heparin drip. 02/14: Hypothermic overnight. Remains on milrinone and heparin drips. Tolerating tube feeds at 20 cc now. Positive BM. No changes neurologically 02/15 Patient remains sedated with Versed and Fentanyl drips, on Milrinone 0.5. 02/16 Patient remains intubated sedated with Versed and Fentanyl infusion. On Milrinone and Heparin drips. CT brain yesterday showed no acute findings. Afebrile. 02/17 Patient remains sedated and intubated. Afebrile, On Milrinone and Heparin drip. 02/18: Remains critical continues to require milrinone. Urine output adequate. Chest x-ray shows bilateral infiltrate effusion. CT chest to better define effusions and infiltrate. Increase Bumex to 1 mg every 8 hours. Patient is persistently weak, will attempt SBT unlikely to be successfully extubated at this time. Most likely will need tracheostomy if family desires aggressive care 02/19: Remains intubated sedated with Versed and fentanyl. Transition to Precedex to facilitate weaning trials. Patient responding slightly more to verbal command, appears to track even though not following commands. Creatinine slightly increased with increased diuresis. Chest x-ray shows improved pleural effusions. CT chest yesterday did not show significant effusion but basilar consolidation. 02/20 Patient was extubated yesterday on 10L simple mask, on Precdex, Heparin and Milrinone drips. Tmax 101.1 yesterday 02/21: Febrile. Currently on 5 L nasal cannula. Continues on heparin drip with 500 units an hour. Received bumetanide 1 mg 1 today. Positive BM 02/22: Remains on 5 L nasal cannula. Remains on heparin drip. No changes neurologically remains medically stable. SUBJECTIVE: 02/23: Intubated early this morning secondary to acute respiratory failure. Blood pressure marginal likely due to sedation. Ejection fraction less than 20% . Discussed with at bedside. She was to proceed with tracheostomy in PEG tube placement. We will plan for within the next few days. 02/24: Remains sedated, orally intubated on mechanical ventilation. Objective Vital Signs / I&O: Vital Signs 02/23/18 16:00 02/23/18 17:05 02/23/18 17:06 Temperature 98.7 F Pulse Rate 84 77 Respiratory Rate 22 20 20 Blood Pressure 80/56 L Pulse Oximetry 99 95 02/23/18 20:00 02/23/18 20:50 02/24/18 00:00 Temperature 98.1 F 98.1 F Pulse Rate 75 75 72 Respiratory Rate 18 18 18 Blood Pressure 91/62 L 90/59 L Pulse Oximetry 99 100 100 02/24/18 04:00 02/24/18 04:09 02/24/18 07:00 Temperature 98.3 F Pulse Rate 72 71 76 Respiratory Rate 18 18 18 Blood Pressure 100/60 Pulse Oximetry 99 99 02/24/18 08:00 02/24/18 12:21 Temperature Pulse Rate 80 Respiratory Rate 18 18 Blood Pressure Pulse Oximetry 95 Intake & Output 02/23/18 02/24/18 02/24/18 18:59 06:59 18:59 Intake Total 940 / 940 593 / 593 300 / 300 Output Total 375 / 375 560 / 560 Balance 565 / 565 33 / 33 300 / 300 Weight 47.5 kg Intake: IV 500 / 500 150 / 150 300 / 300 Heparin/D5W 25,000 U/250 mL 25, 250 / 250 000 unit In 250 ml @ 800 UNITS/ HR 8 mls/hr IV.CONT TITRATE PRN Rx#:[id number] Versed Inj 50 mg In 50 ml @ 2 50 / 50 50 / 50 50 / 50 MG/HR 2 mls/hr IV.CONT TITRATE PRN Rx#:[id number] Ancef Inj 2,000 MG In NS Inj 80 100 / 100 ML @ 200 mls/hr IV.SIG Q12H ADRIEN Rx#:[id number] fentaNYL 10 mcg/mL Premix Drip 250 / 250 2,500 mcg In 250 ml @ 50 MCG/HR 5 mls/hr IV.SIG TITRATE PRN Rx #:[id number] Flagyl 500 MG Inj 100 ML @ 100 100 / 100 100 / 100 mls/hr IV.SIG Q8H ADRIEN Rx#: [id number] Tube Feeding 200 / 200 443 / 443 Tube Irrigant 240 / 240 Output: Stool 50 / 50 500 / 500 Urine Amount (Catheter) 325 / 325 60 / 60 Condom 325 / 325 60 / 60 Other: Date of Last Bowel Movement 02/23/18 02/21/18 Result Diagrams: 02/24/18 07:40 02/24/18 07:40 Objective Remarks: GENERAL: 62-year-old male lying in bed in NAD orotracheally intubated SKIN: cool and poorly perfused. HEAD: Atraumatic. Normocephalic. EYES: Pupils equal and round, 2 mm and reactive. No injection or drainage. ENT: No nasal bleeding or discharge. Orotracheally intubated. NG tube in right nares NECK: Trachea midline. Supple, no JVD, no adenopathy/thyromegaly. Left IJ is clean dry and intact CARDIOVASCULAR: RRR. S1, S2. No S4. No murmurs rubs or gallops. RESPIRATORY: B/L equal air entry. Bilateral rhonchorous breath sounds. GASTROINTESTINAL: Abdomen soft, non-tender, nondistended. no guarding. MUSCULOSKELETAL: Extremities with trace bilateral lower extremity edema NEUROLOGICAL: Arousable and follows commands. Very vocal., no focal musculoskeletal or sensory deficits Assessment and Plan - Assessment and Plan Plan: NEURO/PSYCH: History of stroke in 2015 Neuropathy left upper and lower extremity Chronic low back pain Acetaminophen 650 every 6 hours as needed fever 02/15 CT brain: No acute findings. 02/15 EEG : Encephalopathy, no epileptiform activity MRI brain 02/16: New small focal acute infarction right cerebral vertex and also left cerebral vertex. Neuro has followed. Continue ASA 81 mg daily. Continue pregabalin 150 mg p.o. twice daily. Hold duloxetine 90 mg p.o. daily. RESP: Acute hypoxic respiratory failure COPD on 2.5 L home O2 currently on 5 L Prior tobacco abuse Bilateral pleural effusions PRVC 18/500//40 Albuterol/ipratropium aerosols every 4 hours with albuterol aerosols every 2 hours as needed for dyspnea methylprednisolone succinate 40mg IV daily Follow-up on amchest x-ray CV: V. tach/V. fib arrest NSTEMI Cardiogenic shock Acute systolic heart failure Atrial fibrillation with RVR [place] mechanical aortic valve (09/21/12 Dr. Gonzalez) s/p Tricuspid annuloplasty Discontinue milrinone 0.25 mgc/kg/min 02/21 Monitor HR and BP keep MAP>65mmHg s/p cath And PCI -proximal LAD and large diagonal 90% stenosis, 2 BMS stent 02/05, mid LAD vasospasm post PCI Continue aspirin 81 mg daily, clopidogrel 75 mg daily, amiodarone 400mg TID, carvedilol 3.125mg BID Bumetanide 1mg IV q8h, reduce to 1 mg IV q24. discontinued today 02/21. Spironolactone 50 mg twice daily Heparin drip currently at 500 units an hour. PTT therapeutic. Continue atorvastatin 40 mg nightly. Off IABP 02/08/18 [place] 01/23/18no vegetation. Normal aortic mechanical valve with trivial aortic insufficiency. Tricuspid annuloplasty. Mild to moderate LV generalized hypokinesis Echo from 02/05: EF <20%, diffuse hypokinesis, bioprosthetic valve Mri Supervisor is Romana Bartlett GI: Moderate protein calorie malnutrition with hypoalbuminemia Speech eval, diet per speech, if fails will restart tube feeds-Jevity 1.5 currently at 15 cc an hour. Goal 50 cc an hour Lansoprazole for stress ulcer prophylactic Had normal EGD on 10/21/17 FEN/RENAL: BPH Acute kidney injury-worsening Hypopotassemia Hypernatremia Cano due to aggressive diuresis. close monitoring of uop Monitor renal function, I/O's, Renal ultrasound to evaluate for evidence of obstruction -did not show any obstruction Cr increased 1.67-2.14 Discontinued bumetanide 1mg IV daily , spironolactone 50 mg BID decreased to 25 mg twice daily. 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 difficile colitis PICC removed Continue IV cefepime. Discontinue IV vancomycin and gentamicin 02/20 C.diff tx: po vanco + IV flagyl 02/11/18 Infectious disease following 02/18 Sputum: Pseudomonas 02/14 Sputum: Pseudomonas 02/11 Sputum cx: Pseudomonas, Kleb pneumonia BC 02/11, 02/06: NGTD HEME: Chronic normocytic anemia Iron deficiency Leukocytosis Continue ferrous sulfate 300 milligrams liquid daily. Received 2 units packed red cells in [place] [facility] due to anemia and shock. Monitor CBC ENDO: SSI to maintain euglycemia PROPH: Heparin drip. Protonix for stress ulcer prophylaxis ACCESS: Right radial art line placed in the emergency department 02/04. Left IJ central line placed 02/05/18. Will attempt to discontinue 02/22 d/c Art line. Palliative care is following Level 3 Dr[address] Quintana discussed with at bedside on 02/23. Request continued aggressive care with tracheostomy and PEG tube placement.
--- NOTE | 2018-02-24 13:23 | P.DIET ---
Nutritional Evaluation Type of nutrition evaluation: follow-up Nutrition consult regarding: Tube Feeding Subjective Subjective Comments: Recent admission from 01/23-01/31 for MSSA bacteremia. Objective - Diagnosis Septic Shock - Objective [place] body weight: 67 kg % IBW: 88 Body Weight Used for Calculations: IBW Energy Needs - Lower Range (kCal/kg): 25 Energy Needs - Upper Range (kCal/kg): 30 Lower Limit kCal/kg (kCals): 1,675 Upper Limit kCal/kg (kCals): 2,016 Lower Limit Protein Factor (Grams per Kg): 1.2 Upper Limit Protein Factor (Grams per Kg): 1.4 Lower Protein Needs (Protein): 80 Upper Protein Needs (Protein): 94 Dietitian Reviewed in Medical Record: Curent medications, Intake & Output, Labs , Tube feeding Diet Order: TF only Objective Comments: PMH: HLD, MSSA Bacteremia, COPD, CVA, Osteoporosis, Neuropathy Meds include: Fentanyl, Versed, Vit C, Lipitor, Ferrous Sulfate, Solumedrol, Theragran, Beneprotein Labs include: Na 153, Glu 202, Cr 2.94, Mg 2.6 Assessment Assessment: Pt was extubated on 02/19 then re-intubated 02/23 and is sedated on fentanyl and versed. TF Jevity 1.5 now running at 40 ml/hr and is being tolerated by pt. To meet needs with Jevity 1.5, recommend goal rate of 50 mls/hr to provide 1800 kcals, 77 gms protein and 912 mls of free water. TF currently meets pt's protein needs, noted Cr elevation. Beneprotein is not necessary at this time. Noted wants to proceed with trach/PEG, pt's prognosis is poor. Will monitor renal labs, UOP and continue to monitor TF tolerance, clinical course Recommendations: Jevity 1.5 with goal rate of 50 mls/hr Cr elevated, hold Beneprotein Dietitian to Monitor: Lab values, Renal labs, Intake & Output, Tube feeding tolerance, Weight change, Medical course
[2018-02-25] MEDS: Insulin NovoLOG Aspart Correctional Sugar Inj SQ SCH ×3 (06:12→17:53)
[2018-02-25] MEDS: Oral Hygiene Kit OROPHARYNG SCH ×3 (06:12→16:38)
[2018-02-25 07:09] LABS: Vancomycin,Random 17.4 Comment
[2018-02-25 09:04] LABS: Baso % (Auto) 0.2 % (0.0-2.0); Hematocrit 28.8 % (39.0-51.0); Hemoglobin 9.2 gm/dL (13.0-17.0); Lymph # (Auto) 0.6 th/mm3 (1.0-4.8); Lymph % (Auto) 3.8 % (9.0-44.0); Mean Corpuscular HGB Conc 31.9 % (32.0-36.0); Mean Corpuscular Hemoglobin 30.7 pg (27.0-34.0); Mean Corpuscular Volume 96.3 fL (80.0-100.0); Mean Platelet Volume 10.9 fL (7.0-11.0); Mono # (Auto) 0.5 th/mm3 (0.0-0.9); Mono % (Auto) 3.4 % (0.0-8.0); Neut # (Auto) 14.7 th/mm3 (1.8-7.7); Neut % (Auto) 92.6 % (16.0-70.0); Red Cell Distribution Width 19.7 % (11.6-17.2); White Blood Count 15.9 th/mm3 (4.0-11.0)
[2018-02-25] MEDS: Ferrrous Sulfate 300 MG/5 ML UDC PO SCH (09:11)
[2018-02-25] MEDS: Beneprotein Powder Packet G-TUBE SCH ×4 (09:11→17:50)
[2018-02-25] MEDS: Potassium Chloride 10 MEQ ER Capsule G-TUBE SCH ×2 (09:11→20:39)
[2018-02-25] MEDS: Senna/Docusate Sodium 8.6/50 MG Tablet PO SCH ×2 (09:12→20:35)
[2018-02-25] MEDS: Amiodarone 200 MG Tablet G-TUBE SCH ×2 (09:13→20:35)
[2018-02-25] MEDS: MethylPREDNISolone Sod Succinate Inj 40 MG/ML Vial IV.PUSH SCH (09:13)
[2018-02-25] MEDS: Ascorbic Acid 500 MG Tablet NG/OG SCH (09:13)
[2018-02-25] MEDS: Pregabalin 75 MG Capsule PO SCH ×2 (09:13→20:35)
[2018-02-25] MEDS: Chlorhexidine 0.12% Oral Kit 15 ML UDC OROPHARYNG SCH ×2 (09:14→20:37)
[2018-02-25] MEDS: Hypromellose 0.3% Opth Gel 10 GM Bottle EACH EYE SCH ×2 (09:14→20:38)
[2018-02-25] MEDS: Spironolactone 25 MG Tablet PO SCH (09:21)
[2018-02-25] MEDS: Midazolam 50 MG/50 ML Inj 50 MG/50 ML BAG IV.CONT PRN (09:21)
[2018-02-25 09:27] LABS: Alanine Aminotransferase 8 U/L (12-78); Albumin 2.6 g/dL (3.4-5.0); Alkaline Phosphatase 52 U/L (45-117); Anion Gap 10 meq/L (5-15); Aspartate Aminotransferase 30 U/L (15-37); Blood Urea Nitrogen 123 mg/dL (7-18); Calcium 8.2 mg/dL (8.5-10.1); Chloride 120 meq/L (98-107); Glomerular Filtration Rate 17 mL/min (>89); Glucose,Random 173 mg/dL (74-106); Potassium 5.9 meq/L (3.5-5.1); Sodium 150 meq/L (136-145); Total Protein 6.3 g/dL (6.4-8.2)
[2018-02-25 11:21] LABS: Magnesium 2.5 mg/dL (1.5-2.5); Phosphorus 5.3 mg/dL (2.5-4.9)
[2018-02-25] MEDS ORDERED: Vancomycin Inj 750 MG in Sodium Chlor 0.9% Inj 250 ML IV.SIG ONE (12:00)
--- NOTE | 2018-02-25 12:34 | P.PNCC ---
Subjective Subjective Remarks/Hospital Course: 62-year-old male with past medical history of [place] mechanical aortic valve (09/21/12 Dr. Gonzalez), on chronic anticoagulation with warfarin, atrial fibrillation postop from AVR , COPD on 2.5 L home O2, stroke in 2015 resulting in left-sided sensory deficits and neuropathy, osteoporosis with chronic low back pain. He was recently admitted to [facility] from 01/23 through 01/31/18 for MSSA bacteremia. It is believed that the original source of infection was a wound on his right index finger when electric drill slipped and created a puncture wound. He was discharged with right upper extremity PICC line receiving cefazolin 2 g IV every 8 hours and gentamicin 210 mg IV daily. He states that home health administered antibiotics at 17:00 and shortly thereafter he began having chills and rigors and sought medical attention at [facility]. He had no rash. Upon arrival, he was hypotensive in the low 80s. He was given 2 L S bolus but remained hypotensive so was started on Levophed. He then developed heart rate in the 140s, reportedly atrial flutter so he was started on Amiodarone drip in [place] and converted to sinus rhythm. He was transfused 2 units PRBC due to Hgb 9.3. His stool was nonbloody nonmelena but was Hemoccult positive. He was given zosyn and vancomycin. Critical care medicine was then contacted and accepted patient for transfer to [facility]. He denies tenderness/redness/drainage at PICC site. Aside from mechanical aortic valve, he has no other hardware or indwelling devices. He denies headache, cough, dysuria. He has had a few loose stools at home, but stools have sometimes been formed. He denies chest pain, does report some SOB. EKG at [place] had marked inferolateral ischemic changes. Obtained EKG upon arrival to [facility] which is improved. SUBJ 02/05: Patient remains critical ill appearing, complaints of chest tightness but denies pain. Remains on 8 mcg/min of Levophed to maintain map about 65. However increasing shortness of breath. Chest x-ray shows increasing pulmonary edema. Troponin was 27.5 currently on IV heparin therapeutic. Cardiology consult is pending at this time. I will stop on maintenance fluids give 40 mg IV Lasix and IV albumin 25 g 1. Patient is very critical patient and updated at the bedside 02/06: to laboratory supervisor last night for [facility] with LAD stent complicated by vasospasm of the LAD. IABP placed. patient emergently intubated for acute hypoxic respiratory failure secondary to cardiogenic shock and pulmonary edema. started on milrinone at 0.375 mcg/kg/min and levophed. bumex drip started. remains critically ill. 02/07: Remains critically ill remains on Levophed and milrinone. Currently diuresing well with Bumex drip. IABP in place management per cardiology-good waveform and augmentation. Chest x-ray shows adequate positioning of IABP, diffuse bilateral pulmonary edema 02/08: Remains critical but showing some signs of improvement. Diuresing very well on Bumex infusion. Remains on Levophed and milrinone. IABP one-to-one with good augmentation management per cardiology. Chest x-ray shows improving edema but with persistent bilateral effusions. Will initiate weaning trials if tolerated 02/09: Still remains on pressors, unable to wean Levophed below 2 mcg/min. Milrinone currently on 0.375 mcg/kg/min. IABP removed yesterday. On sedation hold patient wakes up but remains lethargic. Weakly squeezes hand. Urine output excellent on Bumex, 4 L output in 24 hours. Will attempt CPAP today 02/10: Multiple episodes of V. fib V. tach arrest yesterday morning. Successfully resuscitated. Yesterday night had two-minute V. fib arrest return of spontaneous circulation in sinus rhythm after DC cardioversion 1. Currently remains on milrinone and low-dose Levophed. I will try to wean off Levophed introduce low-dose beta-rasheed due to recurrent arrhythmia. Keep potassium more than 4 magnesium more than 2 02/11: Patient still critical and cardiogenic shock requiring Levophed and milrinone. Urine output improved with adding Diamox. Approximately 2 L urine output in 24 hours, creatinine remained stable. Oxygenation slightly improved FiO2 reduced to 70% now. Overall prognosis remains poor family wants to continue aggressive care 02/12: Remains critical but slight improvement in oxygenation. But continues to require Levophed and milrinone the low-dose. Urine output remains adequate. Chest x-ray shows interval improvement. Creatinine remains stable to slightly improved. Add IV albumin to improve blood pressure and to promote diuresis. 02/13 Patient remains intubated and sedated with Versed and fentanyl. Afebrile, off Levophed remains on Milrinone and Heparin drip. 02/14: Hypothermic overnight. Remains on milrinone and heparin drips. Tolerating tube feeds at 20 cc now. Positive BM. No changes neurologically 02/15 Patient remains sedated with Versed and Fentanyl drips, on Milrinone 0.5. 02/16 Patient remains intubated sedated with Versed and Fentanyl infusion. On Milrinone and Heparin drips. CT brain yesterday showed no acute findings. Afebrile. 02/17 Patient remains sedated and intubated. Afebrile, On Milrinone and Heparin drip. 02/18: Remains critical continues to require milrinone. Urine output adequate. Chest x-ray shows bilateral infiltrate effusion. CT chest to better define effusions and infiltrate. Increase Bumex to 1 mg every 8 hours. Patient is persistently weak, will attempt SBT unlikely to be successfully extubated at this time. Most likely will need tracheostomy if family desires aggressive care 02/19: Remains intubated sedated with Versed and fentanyl. Transition to Precedex to facilitate weaning trials. Patient responding slightly more to verbal command, appears to track even though not following commands. Creatinine slightly increased with increased diuresis. Chest x-ray shows improved pleural effusions. CT chest yesterday did not show significant effusion but basilar consolidation. 02/20 Patient was extubated yesterday on 10L simple mask, on Precdex, Heparin and Milrinone drips. Tmax 101.1 yesterday 02/21: Febrile. Currently on 5 L nasal cannula. Continues on heparin drip with 500 units an hour. Received bumetanide 1 mg 1 today. Positive BM 02/22: Remains on 5 L nasal cannula. Remains on heparin drip. No changes neurologically remains medically stable. SUBJECTIVE: 02/23: Intubated early this morning secondary to acute respiratory failure. Blood pressure marginal likely due to sedation. Ejection fraction less than 20% . Discussed with at bedside. She was to proceed with tracheostomy in PEG tube placement. We will plan for within the next few days. 02/24: Remains sedated, orally intubated on mechanical ventilation. 02/25: Remains sedated, orally intubated on mechanical ventilation. Worsening renal function noted. Check UA, urine sodium and creatinine. Ordered Kayexalate for hyperkalemia and nephrology consulted. Objective Vital Signs / I&O: Vital Signs 02/24/18 15:10 02/24/18 15:13 02/24/18 16:00 Temperature 97.7 F Pulse Rate 82 83 Respiratory Rate 18 18 18 Blood Pressure 96/67 L Pulse Oximetry 99 98 02/24/18 20:00 02/24/18 21:46 02/25/18 00:00 Temperature 97.8 F 98 F Pulse Rate 79 81 81 Respiratory Rate 18 18 18 Blood Pressure 87/64 L 90/63 L Pulse Oximetry 98 98 100 02/25/18 00:27 02/25/18 04:00 02/25/18 04:38 Temperature 97.5 F L Pulse Rate 81 90 88 Respiratory Rate 18 18 18 Blood Pressure 91/63 L Pulse Oximetry 97 97 97 02/25/18 09:43 02/25/18 12:27 Temperature Pulse Rate 84 87 Respiratory Rate 19 20 Blood Pressure Pulse Oximetry 95 93 L Intake & Output 02/24/18 02/25/18 02/25/18 18:59 06:59 18:59 Intake Total 1366 / 1366 1161 / 1161 Output Total 1100 / 1100 600 / 600 Balance 266 / 266 561 / 561 Weight 54 kg Intake: IV 550 / 550 150 / 150 Versed Inj 50 mg In 50 ml @ 2 100 / 100 50 / 50 MG/HR 2 mls/hr IV.CONT TITRATE PRN Rx#:[id number] Maxipime Inj 2,000 MG In NS Inj 100 / 100 100 ML @ 200 mls/hr IV.SIG Q24H ADRIEN Rx#:[id number] fentaNYL 10 mcg/mL Premix Drip 250 / 250 2,500 mcg In 250 ml @ 50 MCG/HR 5 mls/hr IV.SIG TITRATE PRN Rx #:[id number] Flagyl 500 MG Inj 100 ML @ 100 100 / 100 100 / 100 mls/hr IV.SIG Q8H ADRIEN Rx#: [id number] Tube Feeding 366 / 366 1011 / 1011 Water Bolus Amount 450 / 450 0 / 0 Output: Stool 200 / 200 400 / 400 Urine Amount (Catheter) 900 / 900 200 / 200 Indwelling Urethral Catheter 900 / 900 200 / 200 Other: Date of Last Bowel Movement 02/25/18 Result Diagrams: 02/25/18 08:23 02/25/18 08:23 Imaging: Impressions Chest X-Ray 02/24/18 06:00 CONCLUSION: Stable chest x-ray with atelectasis at the right lung base and volume loss versus consolidation in the left lower lobe. Objective Remarks: GENERAL: 62-year-old male lying in bed in NAD orotracheally intubated SKIN: cool and poorly perfused. HEAD: Atraumatic. Normocephalic. EYES: Pupils equal and round, 2 mm and reactive. No injection or drainage. ENT: No nasal bleeding or discharge. Orotracheally intubated. NG tube in right nares NECK: Trachea midline. Supple, no JVD, no adenopathy/thyromegaly. Left IJ is clean dry and intact CARDIOVASCULAR: RRR. S1, S2. No S4. No murmurs rubs or gallops. RESPIRATORY: B/L equal air entry. Bilateral rhonchorous breath sounds. GASTROINTESTINAL: Abdomen soft, non-tender, nondistended. no guarding. MUSCULOSKELETAL: Extremities with trace bilateral lower extremity edema NEUROLOGICAL: Arousable and follows commands. Very vocal., no focal musculoskeletal or sensory deficits Assessment and Plan - Assessment and Plan Plan: NEURO/PSYCH: History of stroke in 2015 Neuropathy left upper and lower extremity Chronic low back pain Acetaminophen 650 every 6 hours as needed fever 02/15 CT brain: No acute findings. 02/15 EEG : Encephalopathy, no epileptiform activity MRI brain 02/16: New small focal acute infarction right cerebral vertex and also left cerebral vertex. Neuro has followed. Continue ASA 81 mg daily. Continue pregabalin 150 mg p.o. twice daily. Hold duloxetine 90 mg p.o. daily. RESP: Acute hypoxic respiratory failure COPD on 2.5 L home O2 currently on 5 L Prior tobacco abuse Bilateral pleural effusions PRVC 18/500/07/22/39 Albuterol/ipratropium aerosols every 4 hours with albuterol aerosols every 2 hours as needed for dyspnea methylprednisolone succinate 40mg IV daily Follow-up on amchest x-ray CV: V. tach/V. fib arrest NSTEMI Cardiogenic shock Acute systolic heart failure Atrial fibrillation with RVR [place] mechanical aortic valve (09/21/12 Dr. Gonzalez) s/p Tricuspid annuloplasty Discontinued milrinone 0.25 mgc/kg/min 02/21 Monitor HR and BP keep MAP>65mmHg s/p cath And PCI -proximal LAD and large diagonal 90% stenosis, 2 BMS stent 02/05, mid LAD vasospasm post PCI Continue aspirin 81 mg daily, clopidogrel 75 mg daily, amiodarone 400mg TID, carvedilol 3.125mg BID Bumetanide 1mg IV q8h, reduce to 1 mg IV q24. discontinued today 02/21. Stop Spironolactone in v/o hyperkalemia on 02/25 Heparin drip currently at 500 units an hour. PTT therapeutic. Continue atorvastatin 40 mg nightly. Off IABP 02/08/18 [place] 01/23/18no vegetation. Normal aortic mechanical valve with trivial aortic insufficiency. Tricuspid annuloplasty. Mild to moderate LV generalized hypokinesis Echo from 02/05: EF <20%, diffuse hypokinesis, bioprosthetic valve Pbx Wire Chief is Romana Bartlett GI: Moderate protein calorie malnutrition with hypoalbuminemia Speech eval, diet per speech, if fails will restart tube feeds-Jevity 1.5 currently at 15 cc an hour. Goal 50 cc an hour Lansoprazole for stress ulcer prophylactic Had normal EGD on 10/21/17 FEN/RENAL: BPH Acute kidney injury-worsening Hypopotassemia Hypernatremia Cano due to aggressive diuresis. close monitoring of uop Monitor renal function, I/O's, Renal ultrasound to evaluate for evidence of obstruction -did not show any obstruction Discontinued bumetanide 1mg IV daily , spironolactone 25 mg twice daily stopped on 02/25 due to hyperkalemia and worsening renal function.. Hold tamsulosin 0.4 mg daily for now Nephrology consult requested for a KI with worsening BUN/creatinine. 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 difficile colitis PICC removed Continue IV cefepime. Discontinue IV vancomycin and gentamicin 02/20 C.diff tx: po vanco + IV flagyl 02/11/18 Infectious disease following 02/18 Sputum: Pseudomonas 02/14 Sputum: Pseudomonas 02/11 Sputum cx: Pseudomonas, Kleb pneumonia BC 02/11, 02/06: NGTD HEME: Chronic normocytic anemia Iron deficiency Leukocytosis Continue ferrous sulfate 300 milligrams liquid daily. Received 2 units packed red cells in [place] ER due to anemia and shock. Monitor CBC ENDO: SSI to maintain euglycemia PROPH: Heparin drip. Protonix for stress ulcer prophylaxis ACCESS: Right radial art line placed in the emergency department 02/04. Left IJ central line placed 02/05/18. Will attempt to discontinue 02/22 d/c Art line. Palliative care is following Level 3 Dr[address] Quintana discussed with at bedside on 02/23. Request continued aggressive care with tracheostomy and PEG tube placement.
[2018-02-25] MEDS: Sodium Polystyrene Sulfonate/Sorbitol Liq 15 GM/60 ML UDC PO SCH ×3 (12:57→17:50)
[2018-02-25] MEDS: Heparin Drip 25,000 UNIT/250 ML BAG IV.CONT PRN (13:03)
--- NOTE | 2018-02-25 15:19 | P.CONNP ---
History of Present Illness Service: Nephrology Primary Care Provider: Regan Houston Provider: Regan Rogers Chief Complaint: Fever, septic shock History of Present Illness: This is a patient admitted on 02/04/18 to critical care service. Admission creatinine was 0.95, it has progressive increased to about 3.7, and he has become hyperkalemic. Patient is also hypernatremic. His EF is 20 %, has history of atrial fibrillation. Other medical problems include COPD, s/p [place] mechanical AVR, CVA with left sided deficits, atrial fibrillation. Patient was admitted in January earlier with MSSA bacteremia. He had a picc line placed for outpatient antibiotic which included Gentamicin and Cefazolin. Patient's condition has declined progressively. He is hypotensive, septic. Sputum culture is positive for both Klebsiella and Pseudomonas. He is on Vancomycin and Cefepime. Patient was diuresed aggressively, but now the diuretics have been held. He was hypokalemic, for which he was receiving potassium supplements. Leukocytosis is present. Patient is being treated for C.diff with enteral Vancomycin. His Vancomycin level was high on 02/18, but since then it is acceptable. Review of Systems unobtainable due to endotracheal tube PMFSH - History History Provided By: Patient - Medical History Medical History: Medical History (Last Reviewed 02/23/18 @ 08:03 by Danielle Sanchez [employer]visor [employer]) HLD (hyperlipidemia) MSSA bacteremia Normal endoscopy COPD (chronic obstructive pulmonary disease) CVA (cerebral vascular accident) Neuropathy Osteoporosis - Surgical History Surgical History: Surgical History (Last Reviewed 02/22/18 @ 09:35 by Justin Hankins) H/O mechanical aortic valve replacement History of inguinal hernia repair, bilateral - Family History Family History: Family History (Last Reviewed 02/16/18 @ 09:19 by Iman Ang) Mother CAD (coronary artery disease) Father Valvular heart disease Brother Lung cancer - Tobacco History Second Hand Smoke Exposure: No (On disability. 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 ) Smoking Status: Former smoker Tobacco Type: Cigarettes - Alcohol History How Often Do You Have a Drink Containing Alcohol: Monthly or less - Substance Use History Substance History: No History of Abuse Medications and Allergies Active Medications: Active Medications Acetaminophen (Tylenol Liq) 650 mg PO Q6H PRN PRN Reason: FEVER Last Admin: 02/19/18 15:18 Dose: 650 mg Al Hydroxide/Mg Hydroxide (Milk Of Magnesia Liq) 30 ml PO Q12H PRN PRN Reason: Mild Constipation Albuterol (Duoneb Neb (Denae)) 1 ampul NEB Q4HR NEB [facility] Last Admin: 02/25/18 12:27 Dose: 1 ampul Albuterol (Albuterol Neb (Prn)) 2.5 mg NEB Q2HR NEB PRN PRN Reason: SHORTNESS OF BREATH/WHEEZING Last Admin: 02/09/18 21:20 Dose: 2.5 mg Amiodarone HCl (Cordarone) 400 mg G-TUBE BID [facility] Last Admin: 02/25/18 09:13 Dose: 400 mg Artificial Tears (Genteal Severe Dry Eye Relief 0.3% Opth Gel) 1 drops EACH EYE BID [facility] Last Admin: 02/25/18 09:14 Dose: 1 drops Ascorbic Acid (Vitamin C) 500 mg NG/OG DAILY [facility] Last Admin: 02/25/18 09:13 Dose: 500 mg Aspirin (Aspirin Chew) 81 mg PO DAILY [facility] Last Admin: 02/25/18 09:12 Dose: 81 mg Atorvastatin Calcium (Lipitor) 40 mg PO HS [facility] Last Admin: 02/24/18 21:14 Dose: 40 mg Bisacodyl (Dulcolax Supp) 10 mg RECTAL DAILY PRN PRN Reason: SEVERE CONSITIPATION Chlorhexidine Gluconate (Peridex 0.12% Oral Kit) 15 ml OROPHARYNG BID@0800, 2000 [facility] Last Admin: 02/25/18 09:14 Dose: 15 ml Clopidogrel Bisulfate (Plavix) 75 mg PO DAILY [facility] Last Admin: 02/25/18 09:13 Dose: 75 mg Dextrose (D50w Vial) 50 ml IV.PUSH UNSCH PRN PRN Reason: PER HYPOGLYCEMIA PROTOCOL Digoxin (Lanoxin Inj) 250 mcg IV.PUSH DAILY [facility] Last Admin: 02/11/18 15:41 Dose: Not Given Duloxetine HCl (Cymbalta) 90 mg PO DAILY [facility] Last Admin: 02/11/18 11:18 Dose: Not Given Ferrous Sulfate (Ferrrous Sulfate Liq) 300 mg PO DAILY [facility] Last Admin: 02/25/18 09:11 Dose: 300 mg Glucagon (Glucagon Inj) 1 mg OTHER PRN PRN PRN Reason: for Hypoglycemia Protocol Heparin Sodium (Porcine) (Heparin Inj) 2,500 units IV.PUSH UNSCH PRN PRN Reason: aPTT 25-39 Heparin Sodium (Porcine) (Heparin Inj) 5,000 units IV.PUSH UNSCH PRN PRN Reason: aPTT < 25 Last Admin: 02/23/18 14:38 Dose: 2,500 units Heparin Sodium/Dextrose (Heparin/D5w 25,000 U/250 Ml) 25,000 unit in 250 mls @ 8 mls/hr IV.CONT TITRATE PRN; Protocol PRN Reason: Per Protocol Last Admin: 02/25/18 13:03 Dose: 600 units/hr, 6 mls/hr Metronidazole/Sodium Chloride (Flagyl 500 Mg Inj) 100 mls @ 100 mls/hr IV.SIG Q8H [facility] Last Admin: 02/25/18 12:55 Dose: 100 mls/hr Midazolam HCl (Versed Inj) 50 mg in 50 mls @ 2 mls/hr IV.CONT TITRATE PRN; Protocol PRN Reason: Per Protocol Last Admin: 02/25/18 09:21 Dose: 8 mg/hr, 8 mls/hr Fentanyl (Fentanyl 10 Mcg/Ml Premix Drip) 2,500 mcg in 250 mls @ 5 mls/hr IV.SIG TITRATE PRN; Protocol PRN Reason: Per Protocol Last Admin: 02/24/18 08:47 Dose: 150 mcg/hr, 15 mls/hr Norepinephrine Bitartrate 16 (mg/ Dextrose) 250 mls @ 1.87 mls/hr IV.CONT TITRATE PRN; Protocol PRN Reason: See Protocol Cefepime HCl 2,000 mg/ Sodium (Chloride) 100 mls @ 200 mls/hr IV.SIG Q24H [facility] Last Admin: 02/25/18 09:12 Dose: 200 mls/hr Pharmacy Profile Note (Vancomycin Consult Pharmacy) 0 mls @ 0 mls/hr OTHER UNSCH [facility] Insulin Aspart (Novolog Insulin Correctional Sugar Inj) 0 unit SQ Q6HR [facility]; Protocol Last Admin: 02/25/18 12:58 Dose: 1 unit Lactulose (Lactulose Liq) 30 ml PO DAILY PRN PRN Reason: SEVERE CONSITIPATION Last Admin: 02/05/18 08:38 Dose: 30 ml Lansoprazole (Prevacid Solutab) 30 mg NG/OG DAILY [facility] Last Admin: 02/25/18 09:13 Dose: 30 mg Methylprednisolone Sodium Succinate (Solumedrol Inj) 40 mg IV.PUSH DAILY [facility] Last Admin: 02/25/18 09:13 Dose: 40 mg Multivitamins (Theragran) 1 tab PO DAILY [facility] Last Admin: 02/25/18 09:12 Dose: 1 tab Potassium Chloride (Kcl) 20 meq G-TUBE BID [facility] Last Admin: 02/25/18 09:11 Dose: 20 meq Pregabalin (Lyrica) 150 mg PO BID [facility] Last Admin: 02/25/18 09:13 Dose: 150 mg Senna/Docusate Sodium (Linda-Colace) 1 tab PO BID [facility] Last Admin: 02/25/18 09:12 Dose: 1 tab Sennosides (Senokot) 17.2 mg PO Q12H PRN PRN Reason: Moderate Constipation Sodium Chloride (Ns Flush) 2 ml IV.FLUSH BID [facility] Last Admin: 02/25/18 09:14 Dose: 2 ml Sodium Chloride (Ns Flush) 2 ml IV.FLUSH PRN PRN PRN Reason: FLUSH AFTER USING IV ACCESS Sodium Polystyrene Sulfonate (Kayexalate Liq) 30 gm PO Q2H [facility] Stop: 02/25/18 16:31 Last Admin: 02/25/18 12:57 Dose: 30 gm Sterile Water (Free Water) 0 ml G-TUBE Q4HR [facility] Last Admin: 02/25/18 12:47 Dose: 200 ml Terbutaline Sulfate (Brethine Inj) 1 mg SQ UNSCH PRN PRN Reason: For Extravasation Vancomycin HCl (Vancomycin Po) 500 mg G-TUBE Q6HR [facility] Last Admin: 02/25/18 12:54 Dose: 500 mg Whey (Beneprotein Powder) 1 packet G-TUBE TID [facility] Last Admin: 02/25/18 12:55 Dose: 1 packet Allergies Allergy/AdvReac Type Severity Reaction Status Date / Time No Known Allergies Allergy Verified 02/04/18 18:10 Home Medications Medication Instructions Recorded Confirmed Type ascorbic acid (vitamin C) [Vitamin See Label Instructions .ROUTE 01/22/18 History C] .COMPLEX duloxetine [Cymbalta] 90 mg PO DAILY 01/22/18 02/06/18 History ferrous sulfate [Iron (ferrous 1 tab PO DAILY 01/22/18 02/06/18 History sulfate)] hydrocodone-acetaminophen [[place]] 1 tab PO Q6H 01/22/18 02/06/18 History multivitamin 1 cap PO QAM 01/22/18 02/06/18 History pregabalin [Lyrica] 200 mg PO BID 01/22/18 02/06/18 History tamsulosin [Flomax] 0.4 mg PO DAILY 01/22/18 02/06/18 History warfarin [Coumadin] 6 mg PO DAILY 01/22/18 02/06/18 History Exam Vital signs: Vital Signs 02/24/18 15:10 02/24/18 15:13 02/24/18 16:00 Temperature 97.7 F Pulse Rate 82 83 Respiratory Rate 18 18 18 Blood Pressure 96/67 L Pulse Oximetry 99 98 02/24/18 20:00 02/24/18 21:46 02/25/18 00:00 Temperature 97.8 F 98 F Pulse Rate 79 81 81 Respiratory Rate 18 18 18 Blood Pressure 87/64 L 90/63 L Pulse Oximetry 98 98 100 02/25/18 00:27 02/25/18 04:00 02/25/18 04:38 Temperature 97.5 F L Pulse Rate 81 90 88 Respiratory Rate 18 18 18 Blood Pressure 91/63 L Pulse Oximetry 97 97 97 02/25/18 09:43 02/25/18 12:27 Temperature Pulse Rate 84 87 Respiratory Rate 19 20 Blood Pressure Pulse Oximetry 95 93 L Intake & Output 02/24/18 02/25/18 02/25/18 18:59 06:59 18:59 Intake Total 1366 / 1366 1161 / 1161 350 / 350 Output Total 1100 / 1100 600 / 600 Balance 266 / 266 561 / 561 350 / 350 Weight 54 kg Intake: IV 550 / 550 150 / 150 350 / 350 Heparin/D5W 25,000 U/250 mL 25, 250 / 250 000 unit In 250 ml @ 800 UNITS/ HR 8 mls/hr IV.CONT TITRATE PRN Rx#:[id number] Versed Inj 50 mg In 50 ml @ 2 100 / 100 50 / 50 MG/HR 2 mls/hr IV.CONT TITRATE PRN Rx#:[id number] Maxipime Inj 2,000 MG In NS Inj 100 / 100 100 ML @ 200 mls/hr IV.SIG Q24H [facility] Rx#:[id number] fentaNYL 10 mcg/mL Premix Drip 250 / 250 2,500 mcg In 250 ml @ 50 MCG/HR 5 mls/hr IV.SIG TITRATE PRN Rx #:[id number] Flagyl 500 MG Inj 100 ML @ 100 100 / 100 100 / 100 100 / 100 mls/hr IV.SIG Q8H [facility] Rx#: [id number] Tube Feeding 366 / 366 1011 / 1011 Water Bolus Amount 450 / 450 0 / 0 Output: Stool 200 / 200 400 / 400 Urine Amount (Catheter) 900 / 900 200 / 200 Indwelling Urethral Catheter 900 / 900 200 / 200 Other: Date of Last Bowel Movement 02/25/18 - Constitutional thin, cachectic, chronically ill appearing - Routine HEENT Exam Head: Present: normocephalic, atraumatic Eye: Present: EOMI, PERRL - Routine Neck Exam Present: supple. Absent: JVD, carotid bruit - Routine Respiratory Exam Comments: vented breath sounds. - Routine Cardiovascular Exam Present: RRR, S1, S2 - Routine Abdominal Exam Present: soft, normoactive bowel sounds. Absent: distended, rebound - Routine Extremities Exam Absent: edema - Additional findings Additional findings: generalized muscle wasting. Skin tenting is present. Results - Lab Results 02/25/18 08:23 02/25/18 08:23 Most recent lab results ABG pH 7.35 (7.380-7.420) L 02/23/18 06:30 ABG pCO2 42 mmHg (38-42) 02/23/18 06:30 ABG pO2 90 mmHG (61-120) 02/23/18 06:30 ABG HCO3 22 mmol/L (22-26) 02/23/18 06:30 Calcium 8.2 mg/dL (8.5-10.1) L 02/25/18 08:23 Phosphorus 5.3 mg/dL (2.5-4.9) H 02/25/18 08:23 Magnesium 2.5 mg/dL (1.5-2.5) 02/25/18 08:23 Assessment and Plan - Assessment (1) Acute kidney injury Code(s): N17.9 - Acute kidney failure, unspecified Status: Acute Plan: Clinically he appears dehydrated. Agree with stopping diuretics. May have progressed to ATN due to sepsis and hypoperfusion injury. At this time, I will start 1/4NS. Avoid nephrotoxic agents. His prognosis is very poor. Severely malnourished, at risk for complications. If hyperkalemia does not improve, he will require renal replacement therapy. Discussed with Dr. Brock. Order renal US. (2) Hyperkalemia Code(s): E87.5 - Hyperkalemia Status: Acute Plan: Patient was on potassium replacement, and in addition was on Spironolactone. All of these have been stopped. He has been given Kayexalate. Repeat level is pending. Avoid Kayexalate if possible. See above. (3) Hyperosmolality and hypernatremia Code(s): E87.0 - Hyperosmolality and hypernatremia Status: Acute Plan: Iatrogenic, due to loop diuretic, excessive sensible and insensible water losses. On Free water flushes through feeding tube. I will start 1/4NS. Avoid loop diuretics for the time being. (4) Sepsis Code(s): A41.9 - Sepsis, unspecified organism Status: Acute Plan: He is on enteral Vancomycin for C.diff. On IV Vancomycin and Cefepime. Carefully monitor Vancomycin dosing and levels. (5) Heart valve replaced by other means Code(s): Z95.4 - Presence of other heart-valve replacement Status: Acute Plan: He is on Heparin drip. (6) Atrial fibrillation Code(s): I48.91 - Unspecified atrial fibrillation Status: Acute Plan: Rate control measures, but avoid Digoxin. - Attending Attestation Thanks for the consult.
[2018-02-25 16:04] LABS: Bacteria,Urine Moderate /hpf; Bilirubin,Urine Negative (Negative); Clarity,Urine Cloudy (Clear); Color,Urine Amber (Yellw/Straw); Glucose,Urine (UA) 50 mg/dL (Negative); Leukocyte Esterase,Urine Large (Negative); Mucus,Urine Few /lpf (Occasional); Nitrite,Urine Negative (Negative); Specific Gravity,Urine 1.017 (1.002-1.035); Squamous Epithelial Cell,Urine 1 /hpf (0-5)
[2018-02-25] MEDS: Sodium Chloride 23.4% Inj 38.5 MEQ in Water for Inj, Sterile 1,000 ML IV.CONT SCH (17:50)
[2018-02-25] MEDS: fentaNYL 10 mcg/mL Premix Drip 2,500 MCG/250 ML BAG IV.SIG PRN (20:57)
[2018-02-25 23:25] LABS: Carbon Dioxide 20.6 meq/L (21.0-32.0); Potassium 5.4 meq/L (3.5-5.1)
[2018-02-26] MEDS: Insulin NovoLOG Aspart Correctional Sugar Inj SQ SCH ×4 (00:23→17:24)
[2018-02-26] MEDS: Oral Hygiene Kit OROPHARYNG SCH ×4 (00:23→17:23)
[2018-02-26] MEDS: Sodium Chloride 23.4% Inj 38.5 MEQ in Water for Inj, Sterile 1,000 ML IV.CONT SCH ×2 (06:13→20:34)
[2018-02-26 06:35] LABS: Baso % (Auto) 0.2 % (0.0-2.0); Hematocrit 25.4 % (39.0-51.0); Hemoglobin 8.2 gm/dL (13.0-17.0); Lymph # (Auto) 0.5 th/mm3 (1.0-4.8); Lymph % (Auto) 4.4 % (9.0-44.0); Mean Corpuscular HGB Conc 32.1 % (32.0-36.0); Mean Corpuscular Hemoglobin 30.9 pg (27.0-34.0); Mean Corpuscular Volume 96.2 fL (80.0-100.0); Mono # (Auto) 0.4 th/mm3 (0.0-0.9); Mono % (Auto) 3.7 % (0.0-8.0); Neut # (Auto) 10.4 th/mm3 (1.8-7.7); Neut % (Auto) 91.7 % (16.0-70.0); Platelet Count 81 th/mm3 (150-450); Red Blood Count 2.64 mil/mm3 (4.50-5.90); Red Cell Distribution Width 20.2 % (11.6-17.2); White Blood Count 11.3 th/mm3 (4.0-11.0)
[2018-02-26 07:00] LABS: Albumin 2.4 g/dL (3.4-5.0); Anion Gap 11 meq/L (5-15); Aspartate Aminotransferase 23 U/L (15-37); Blood Urea Nitrogen 124 mg/dL (7-18); Calcium 7.9 mg/dL (8.5-10.1); Chloride 122 meq/L (98-107); Glomerular Filtration Rate 17 mL/min (>89); Glucose,Random 123 mg/dL (74-106); Sodium 154 meq/L (136-145)
[2018-02-26 07:01] LABS: Alanine Aminotransferase 6 U/L (12-78)
[2018-02-26 07:03] LABS: Alkaline Phosphatase 49 U/L (45-117); Total Protein 5.7 g/dL (6.4-8.2)
[2018-02-26] MEDS: Amiodarone 200 MG Tablet G-TUBE SCH ×2 (08:17→20:34)
[2018-02-26] MEDS: Senna/Docusate Sodium 8.6/50 MG Tablet PO SCH ×2 (08:20→20:34)
[2018-02-26] MEDS: MethylPREDNISolone Sod Succinate Inj 40 MG/ML Vial IV.PUSH SCH (08:20)
[2018-02-26] MEDS: Pregabalin 75 MG Capsule PO SCH ×2 (08:20→20:34)
[2018-02-26] MEDS: Ascorbic Acid 500 MG Tablet NG/OG SCH (08:20)
[2018-02-26] MEDS: Hypromellose 0.3% Opth Gel 10 GM Bottle EACH EYE SCH ×2 (08:21→20:34)
[2018-02-26] MEDS: Ferrrous Sulfate 300 MG/5 ML UDC PO SCH (08:21)
[2018-02-26] MEDS: Beneprotein Powder Packet G-TUBE SCH ×3 (08:21→17:23)
[2018-02-26] MEDS: Chlorhexidine 0.12% Oral Kit 15 ML UDC OROPHARYNG SCH ×2 (08:21→20:34)
--- NOTE | 2018-02-26 10:15 | P.PNCC ---
Subjective Subjective Remarks/Hospital Course: 62-year-old male with past medical history of [place] mechanical aortic valve (09/21/12 Dr. Gonzalez), on chronic anticoagulation with warfarin, atrial fibrillation postop from AVR , COPD on 2.5 L home O2, stroke in 2015 resulting in left-sided sensory deficits and neuropathy, osteoporosis with chronic low back pain. He was recently admitted to [facility] from 01/23 through 01/31/18 for MSSA bacteremia. It is believed that the original source of infection was a wound on his right index finger when electric drill slipped and created a puncture wound. He was discharged with right upper extremity PICC line receiving cefazolin 2 g IV every 8 hours and gentamicin 210 mg IV daily. He states that home health administered antibiotics at 17:00 and shortly thereafter he began having chills and rigors and sought medical attention at [facility]. He had no rash. Upon arrival, he was hypotensive in the low 80s. He was given 2 L S bolus but remained hypotensive so was started on Levophed. He then developed heart rate in the 140s, reportedly atrial flutter so he was started on Amiodarone drip in [place] and converted to sinus rhythm. He was transfused 2 units PRBC due to Hgb 9.3. His stool was nonbloody nonmelena but was Hemoccult positive. He was given zosyn and vancomycin. Critical care medicine was then contacted and accepted patient for transfer to [facility]. He denies tenderness/redness/drainage at PICC site. Aside from mechanical aortic valve, he has no other hardware or indwelling devices. He denies headache, cough, dysuria. He has had a few loose stools at home, but stools have sometimes been formed. He denies chest pain, does report some SOB. EKG at [place] had marked inferolateral ischemic changes. Obtained EKG upon arrival to [facility] which is improved. SUBJ 02/05: Patient remains critical ill appearing, complaints of chest tightness but denies pain. Remains on 8 mcg/min of Levophed to maintain map about 65. However increasing shortness of breath. Chest x-ray shows increasing pulmonary edema. Troponin was 27.5 currently on IV heparin therapeutic. Cardiology consult is pending at this time. I will stop on maintenance fluids give 40 mg IV Lasix and IV albumin 25 g 1. 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 IABP placed. patient emergently intubated for acute hypoxic respiratory failure secondary to cardiogenic shock and pulmonary edema. started on milrinone at 0.375 mcg/kg/min and levophed. bumex drip started. remains critically ill. 02/07: Remains critically ill remains on Levophed and milrinone. Currently diuresing well with Bumex drip. IABP in place management per cardiology-good waveform and augmentation. Chest x-ray shows adequate positioning of IABP, diffuse bilateral pulmonary edema 02/08: Remains critical but showing some signs of improvement. Diuresing very well on Bumex infusion. Remains on Levophed and milrinone. IABP one-to-one with good augmentation management per cardiology. Chest x-ray shows improving edema but with persistent bilateral effusions. Will initiate weaning trials if tolerated 02/09: Still remains on pressors, unable to wean Levophed below 2 mcg/min. Milrinone currently on 0.375 mcg/kg/min. IABP removed yesterday. On sedation hold patient wakes up but remains lethargic. Weakly squeezes hand. Urine output excellent on Bumex, 4 L output in 24 hours. Will attempt CPAP today 02/10: Multiple episodes of V. fib V. tach arrest yesterday morning. Successfully resuscitated. Yesterday night had two-minute V. fib arrest return of spontaneous circulation in sinus rhythm after DC cardioversion 1. Currently remains on milrinone and low-dose Levophed. I will try to wean off Levophed introduce low-dose beta-rasheed due to recurrent arrhythmia. Keep potassium more than 4 magnesium more than 2 02/11: Patient still critical and cardiogenic shock requiring Levophed and milrinone. Urine output improved with adding Diamox. Approximately 2 L urine output in 24 hours, creatinine remained stable. Oxygenation slightly improved FiO2 reduced to 70% now. Overall prognosis remains poor family wants to continue aggressive care 02/12: Remains critical but slight improvement in oxygenation. But continues to require Levophed and milrinone the low-dose. Urine output remains adequate. Chest x-ray shows interval improvement. Creatinine remains stable to slightly improved. Add IV albumin to improve blood pressure and to promote diuresis. 02/13 Patient remains intubated and sedated with Versed and fentanyl. Afebrile, off Levophed remains on Milrinone and Heparin drip. 02/14: Hypothermic overnight. Remains on milrinone and heparin drips. Tolerating tube feeds at 20 cc now. Positive BM. No changes neurologically 02/15 Patient remains sedated with Versed and Fentanyl drips, on Milrinone 0.5. 02/16 Patient remains intubated sedated with Versed and Fentanyl infusion. On Milrinone and Heparin drips. CT brain yesterday showed no acute findings. Afebrile. 02/17 Patient remains sedated and intubated. Afebrile, On Milrinone and Heparin drip. 02/18: Remains critical continues to require milrinone. Urine output adequate. Chest x-ray shows bilateral infiltrate effusion. CT chest to better define effusions and infiltrate. Increase Bumex to 1 mg every 8 hours. Patient is persistently weak, will attempt SBT unlikely to be successfully extubated at this time. Most likely will need tracheostomy if family desires aggressive care 02/19: Remains intubated sedated with Versed and fentanyl. Transition to Precedex to facilitate weaning trials. Patient responding slightly more to verbal command, appears to track even though not following commands. Creatinine slightly increased with increased diuresis. Chest x-ray shows improved pleural effusions. CT chest yesterday did not show significant effusion but basilar consolidation. 02/20 Patient was extubated yesterday on 10L simple mask, on Precdex, Heparin and Milrinone drips. Tmax 101.1 yesterday 02/21: Febrile. Currently on 5 L nasal cannula. Continues on heparin drip with 500 units an hour. Received bumetanide 1 mg 1 today. Positive BM 02/22: Remains on 5 L nasal cannula. Remains on heparin drip. No changes neurologically remains medically stable. SUBJECTIVE: 02/23: Intubated early this morning secondary to acute respiratory failure. Blood pressure marginal likely due to sedation. Ejection fraction less than 20% . Discussed with at bedside. She was to proceed with tracheostomy in PEG tube placement. We will plan for within the next few days. 02/24: Remains sedated, orally intubated on mechanical ventilation. 02/25: Remains sedated, orally intubated on mechanical ventilation. Worsening renal function noted. Check UA, urine sodium and creatinine. Ordered Kayexalate for hyperkalemia and nephrology consulted. 02/26: Sedated, arousable, orally intubated on mechanical ventilation. Will hold Plavix for planned tracheostomy and PEG tube placement. Remains on heparin for anticoagulation. Objective Vital Signs / I&O: Vital Signs 02/25/18 12:00 02/25/18 12:27 02/25/18 14:00 Temperature 98.9 F Pulse Rate 78 87 80 Respiratory Rate 19 20 Blood Pressure 95/61 L Pulse Oximetry 96 93 L 02/25/18 15:00 02/25/18 16:00 02/25/18 18:00 Temperature 98.8 F Pulse Rate 80 92 H Respiratory Rate 20 15 Blood Pressure 115/56 L Pulse Oximetry 96 97 02/25/18 18:43 02/25/18 19:50 02/25/18 20:00 Temperature 98.9 F Pulse Rate 81 Respiratory Rate 20 19 20 Blood Pressure 100/62 Pulse Oximetry 98 97 98 02/25/18 22:00 02/25/18 22:40 02/26/18 00:00 Temperature 99.1 F Pulse Rate 81 80 Respiratory Rate 18 20 Blood Pressure 87/56 L Pulse Oximetry 96 97 02/26/18 01:24 02/26/18 02:00 02/26/18 04:00 Temperature 98.9 F Pulse Rate 77 74 Respiratory Rate 18 18 Blood Pressure 90/56 L Pulse Oximetry 98 02/26/18 04:18 02/26/18 06:00 02/26/18 07:55 Temperature Pulse Rate 71 Respiratory Rate 18 18 Blood Pressure Pulse Oximetry 99 99 Intake & Output 02/25/18 02/26/18 02/26/18 18:59 06:59 18:59 Intake Total 1415 / 1415 2203.125 / 2203.125 Output Total 800 / 800 2525 / 2525 Balance 615 / 615 -321.875 / -321.875 Weight 58.5 kg Intake: IV 450 / 450 1467.125 / 1467.125 Heparin/D5W 25,000 U/250 mL 25, 250 / 250 000 unit In 250 ml @ 800 UNITS/ HR 8 mls/hr IV.CONT TITRATE PRN Rx#:[id number] Sodium Chloride 23.4% Inj 38.5 1009.625 / 1009.625 MEQ In Sterile Water for Inj 1, 000 ML @ 75 mls/hr IV.CONT . [id number] [facility] Rx#:[id number] Maxipime Inj 2,000 MG In NS Inj 100 / 100 100 ML @ 200 mls/hr IV.SIG Q24H [facility] Rx#:[id number] Flagyl 500 MG Inj 100 ML @ 100 200 / 200 100 / 100 mls/hr IV.SIG Q8H [facility] Rx#: [id number] Tube Feeding 505 / 505 736 / 736 Water Bolus Amount 460 / 460 Output: Stool 400 / 400 2000 / 1999 Urine Amount (Catheter) 400 / 400 525 / 525 Indwelling Urethral Catheter 400 / 400 525 / 525 Other: Date of Last Bowel Movement 02/25/18 02/26/18 Result Diagrams: 02/26/18 06:10 02/26/18 06:10 Objective Remarks: GENERAL: 62-year-old male lying in bed in NAD orotracheally intubated SKIN: cool and poorly perfused. HEAD: Atraumatic. Normocephalic. EYES: Pupils equal and round, 2 mm and reactive. No injection or drainage. ENT: No nasal bleeding or discharge. Orotracheally intubated. NG tube in right nares NECK: Trachea midline. Supple, no JVD, no adenopathy/thyromegaly. Left IJ is clean dry and intact CARDIOVASCULAR: RRR. S1, S2. No S4. No murmurs rubs or gallops. RESPIRATORY: Orally intubated on mechanical ventilation, b/L equal air entry. Bilateral rhonchorous breath sounds. GASTROINTESTINAL: Abdomen soft, non-tender, nondistended. no guarding. MUSCULOSKELETAL: Extremities with trace bilateral lower extremity edema NEUROLOGICAL: Sedated, arousable, orally intubated, no focal musculoskeletal or sensory deficits Assessment and Plan - Assessment and Plan Plan: NEURO/PSYCH: History of stroke in 2015 Neuropathy left upper and lower extremity Chronic low back pain Acetaminophen 650 every 6 hours as needed fever 02/15 CT brain: No acute findings. 02/15 EEG : Encephalopathy, no epileptiform activity MRI brain 02/16: New small focal acute infarction right cerebral vertex and also left cerebral vertex. Neuro has followed. Continue ASA 81 mg daily. Continue pregabalin 150 mg p.o. twice daily. Hold duloxetine 90 mg p.o. daily. RESP: Acute hypoxic respiratory failure COPD on 2.5 L home O2 currently on 5 L Prior tobacco abuse Bilateral pleural effusions PRVC 18/500/07/22/40 Albuterol/ipratropium aerosols every 4 hours with albuterol aerosols every 2 hours as needed for dyspnea methylprednisolone succinate 40mg IV daily Follow-up on [facility] x-ray CV: V. tach/V. fib arrest NSTEMI Cardiogenic shock Acute systolic heart failure Atrial fibrillation with RVR [place] mechanical aortic valve (09/21/12 Dr. Gonzalez) s/p Tricuspid annuloplasty Discontinued milrinone 0.25 mgc/kg/min 02/21 Monitor HR and BP keep MAP>65mmHg s/p cath And PCI -proximal LAD and large diagonal 90% stenosis, 2 BMS stent 02/05, mid LAD vasospasm post PCI Continue aspirin 81 mg daily, Hold clopidogrel starting 02/26 for trach/ PEG, amiodarone 400mg TID, carvedilol 3.125mg BID Bumetanide 1mg IV q8h, reduce to 1 mg IV q24. discontinued today 02/21. Stop Spironolactone in v/o hyperkalemia on 02/25 Heparin drip. PTT therapeutic. Continue atorvastatin 40 mg nightly. Off IABP [place] 01/23/18no vegetation. Normal aortic mechanical valve with trivial aortic insufficiency. Tricuspid annuloplasty. Mild to moderate LV generalized hypokinesis Echo from 02/05: EF <20%, diffuse hypokinesis, bioprosthetic valve National Sales Consultant is Romana Bartlett GI: Moderate protein calorie malnutrition with hypoalbuminemia Speech eval, diet per speech, if fails will restart tube feeds-Jevity 1.5 currently at 15 cc an hour. Goal 50 cc an hour Lansoprazole for stress ulcer prophylactic Had normal EGD on 10/21/17 FEN/RENAL: BPH Acute kidney injury-worsening Hypopotassemia Hypernatremia Cano due to aggressive diuresis. close monitoring of uop Monitor renal function, I/O's, Renal ultrasound to evaluate for evidence of obstruction -did not show any obstruction Discontinued bumetanide 1mg IV daily , spironolactone 25 mg twice daily stopped on 02/25 due to hyperkalemia and worsening renal function.. Hold tamsulosin 0.4 mg daily for now Nephrology consult requested for SHARON with worsening BUN/creatinine. 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 difficile colitis PICC removed Continue IV cefepime. Discontinue IV vancomycin and gentamicin 02/20 C.diff tx: po vanco + IV flagyl 02/11/18 Infectious disease following 02/18 Sputum: Pseudomonas 02/14 Sputum: Pseudomonas 02/11 Sputum cx: Pseudomonas, Kleb pneumonia BC 02/11, 02/06: NGTD HEME: Chronic normocytic anemia Iron deficiency Leukocytosis Continue ferrous sulfate 300 milligrams liquid daily. Received 2 units packed red cells in [place] [facility] due to anemia and shock. Monitor CBC ENDO: SSI to maintain euglycemia PROPH: Heparin drip. Protonix for stress ulcer prophylaxis ACCESS: Left IJ central line placed 02/05/18. Palliative care is following Level 3 Dr[address] Quintana discussed with at bedside on 02/23. Request continued aggressive care with tracheostomy and PEG tube placement.
--- NOTE | 2018-02-26 11:47 | P.PNNP ---
Subjective Interval history: On , heparin and Fentanyl drips. He is intubated, unresponsive. Very frail. Serum potassium has improved. Non oliguric. Physical Exam Vital signs: Vital Signs 02/25/18 12:00 02/25/18 12:27 02/25/18 14:00 Temperature 98.9 F Pulse Rate 78 87 80 Respiratory Rate 19 20 Blood Pressure 95/61 L Pulse Oximetry 96 93 L 02/25/18 15:00 02/25/18 16:00 02/25/18 18:00 Temperature 98.8 F Pulse Rate 80 92 H Respiratory Rate 20 15 Blood Pressure 115/56 L Pulse Oximetry 96 97 02/25/18 18:43 02/25/18 19:50 02/25/18 20:00 Temperature 98.9 F Pulse Rate 81 Respiratory Rate 20 19 20 Blood Pressure 100/62 Pulse Oximetry 98 97 98 02/25/18 22:00 02/25/18 22:40 02/26/18 00:00 Temperature 99.1 F Pulse Rate 81 80 Respiratory Rate 18 20 Blood Pressure 87/56 L Pulse Oximetry 96 97 02/26/18 01:24 02/26/18 02:00 02/26/18 04:00 Temperature 98.9 F Pulse Rate 77 74 Respiratory Rate 18 18 Blood Pressure 90/56 L Pulse Oximetry 98 02/26/18 04:18 02/26/18 06:00 02/26/18 07:55 Temperature Pulse Rate 71 Respiratory Rate 18 18 Blood Pressure Pulse Oximetry 99 99 02/26/18 08:00 02/26/18 10:00 Temperature 98.8 F Pulse Rate 69 75 Respiratory Rate 20 Blood Pressure 85/54 L Pulse Oximetry Intake & Output 02/25/18 02/26/18 02/26/18 18:59 06:59 18:59 Intake Total 1415 / 1415 2203.125 / 2203.125 Output Total 800 / 800 2525 / 2525 Balance 615 / 615 -321.875 / -321.875 Weight 58.5 kg Intake: IV 450 / 450 1467.125 / 1467.125 Heparin/D5W 25,000 U/250 mL 25, 250 / 250 000 unit In 250 ml @ 800 UNITS/ HR 8 mls/hr IV.CONT TITRATE PRN Rx#:[id number] Sodium Chloride 23.4% Inj 38.5 1009.625 / 1009.625 MEQ In Sterile Water for Inj 1, 000 ML @ 75 mls/hr IV.CONT . [id number] [facility] Rx#:[id number] Maxipime Inj 2,000 MG In NS Inj 100 / 100 100 ML @ 200 mls/hr IV.SIG Q24H [facility] Rx#:[id number] Flagyl 500 MG Inj 100 ML @ 100 200 / 200 100 / 100 mls/hr IV.SIG Q8H [facility] Rx#: [id number] Tube Feeding 505 / 505 736 / 736 Water Bolus Amount 460 / 460 Output: Stool 400 / 400 1999 / 1999 Urine Amount (Catheter) 400 / 400 525 / 525 Indwelling Urethral Catheter 400 / 400 525 / 525 Other: Date of Last Bowel Movement 02/25/18 02/26/18 - Constitutional thin, cachectic, obtunded - Routine HEENT Exam Head: Present: normocephalic, atraumatic Comments: orally intubated. - Routine Neck Exam Absent: JVD, lymphadenopathy, thyromegaly - Routine Respiratory Exam Comments: bilateral wheezing and rhonchi - Routine Cardiovascular Exam Present: RRR, S1, S2 Comments: prosthetic valve click - Routine Abdominal Exam Present: soft. Absent: distended, rebound - Routine Extremities Exam Absent: edema - Routine Neurological Exam unresponsive. - Urinary Catheter Management Condom Cath placed during this visit: yes Reason for continuing: Acute urinary retention Insertion date: 02/24/18 Indwelling Urethral Catheter Cath placed during this visit: yes Reason for continuing: Acute urinary retention Insertion date: 02/24/18 Indwelling Temp Sensing Catheter Cath placed during this visit: yes, but has since been removed by the nurse Reason for continuing: Acute urinary retention Insertion date: 02/12/18 Insertion time: 20:15 Removal date: 02/20/18 Removal time: 16:00 Assessment and Plan - Assessment (1) Acute kidney injury Code(s): N17.9 - Acute kidney failure, unspecified Status: Acute Plan: Clinically he appeared dehydrated. Diuretics stopped. 1/4NS initiated yesterday. Avoid nephrotoxic agents. His prognosis is very poor. Severely malnourished, at risk for complications. Monitor urine output and renal function. Slight improvement in creatinine. No immediate need for dialysis. (2) Hyperkalemia Code(s): E87.5 - Hyperkalemia Status: Acute Plan: Patient was on potassium replacement, and in addition was on Spironolactone. All of these have been stopped. Hyperkalemia has improved. (3) Hyperosmolality and hypernatremia Code(s): E87.0 - Hyperosmolality and hypernatremia Status: Acute Plan: Iatrogenic, due to loop diuretic, excessive sensible and insensible water losses. On Free water flushes through feeding tube. Increased to q 4 hours. Continue 1/4NS. Avoid hyperglycemia. (4) Sepsis Code(s): A41.9 - Sepsis, unspecified organism Status: Acute Plan: He is on enteral Vancomycin for C.diff. On IV Vancomycin and Cefepime. Carefully monitor Vancomycin dosing and levels. (5) Heart valve replaced by other means Code(s): Z95.4 - Presence of other heart-valve replacement Status: Acute Plan: He is on Heparin drip. (6) Atrial fibrillation Code(s): I48.91 - Unspecified atrial fibrillation Status: Acute Plan: Rate control measures, but avoid Digoxin.
--- NOTE | 2018-02-26 19:24 | P.PNADD ---
Addendum to Inpatient Note Additional information: Pt see jerome 4 pm full note to follow
[2018-02-26] MEDS: Midazolam 50 MG/50 ML Inj 50 MG/50 ML BAG IV.CONT PRN (22:28)
--- NOTE | 2018-02-26 23:45 | P.PNID ---
Subjective Remarks: reintubated, on vent not doing well Cretinine slightly down to 3.57 low grasde fever urine + for yeast Antibiotics: vanco cefepime oral vanco iv flagyl Allergies/Adverse Reactions: Allergies No Known Allergies Allergy (Verified 02/04/18 18:10) Objective Vital Signs 02/26/18 00:00 02/26/18 01:24 02/26/18 02:00 Temperature 99.1 F Pulse Rate 80 77 Respiratory Rate 20 18 Blood Pressure 87/56 L Pulse Oximetry 97 98 02/26/18 04:00 02/26/18 04:18 02/26/18 06:00 Temperature 98.9 F Pulse Rate 74 71 Respiratory Rate 18 18 Blood Pressure 90/56 L Pulse Oximetry 99 02/26/18 07:55 02/26/18 08:00 02/26/18 10:00 Temperature 98.8 F Pulse Rate 69 75 Respiratory Rate 18 20 Blood Pressure 85/54 L Pulse Oximetry 99 02/26/18 12:00 02/26/18 12:26 02/26/18 14:00 Temperature 98.9 F Pulse Rate 75 78 Respiratory Rate 12 8 L Blood Pressure 101/61 Pulse Oximetry 97 99 02/26/18 16:00 02/26/18 16:01 02/26/18 18:00 Temperature 99.5 F Pulse Rate 84 78 Respiratory Rate 61 H 20 Blood Pressure 102/59 L Pulse Oximetry 99 99 02/26/18 20:00 02/26/18 20:59 02/26/18 22:00 Temperature Pulse Rate 80 72 70 Respiratory Rate 40 H 18 Blood Pressure 110/67 Pulse Oximetry 100 100 Intake & Output 02/26/18 02/26/18 02/27/18 06:59 18:59 06:59 Intake Total 2353.125 / 2353.125 1050 / 1050 1009.625 / 1009.625 Output Total 2525 / 2525 1750 / 1750 Balance -171.875 / -171.875 -700 / -700 1009.625 / 1009.625 Weight 58.5 kg Intake: IV 1617.125 / 1617.125 200 / 200 1009.625 / 1009.625 Versed Inj 50 mg In 50 ml @ 2 50 / 50 MG/HR 2 mls/hr IV.CONT TITRATE PRN Rx#:[id number] Sodium Chloride 23.4% Inj 38.5 1009.625 / 3940.041 9345.625 / 1009.625 MEQ In Sterile Water for Inj 1, 000 ML @ 75 mls/hr IV.CONT . [id number] ADRIEN Rx#:[id number] Maxipime Inj 2,000 MG In NS Inj 100 / 100 100 / 100 100 ML @ 200 mls/hr IV.SIG Q24H ADRIEN Rx#:[id number] Flagyl 500 MG Inj 100 ML @ 100 200 / 200 100 / 100 mls/hr IV.SIG Q8H ADRIEN Rx#: [id number] Oral 0 / 0 Tube Feeding 736 / 736 330 / 330 Tube Irrigant 120 / 120 Water Bolus Amount 400 / 400 Output: Stool 2000 / 2000 1100 / 1100 Urine Amount (Catheter) 525 / 525 650 / 650 Indwelling Urethral Catheter 525 / 525 650 / 650 Other: Date of Last Bowel Movement 02/26/18 02/26/18 02/26/18 02/25/18 13:20 Catheterized Urine Urine Culture - Preliminary Yeast - ID to follow 02/24/18 22:26 Sputum - Endotracheal Gram Stain - Final 02/24/18 22:26 Sputum - Endotracheal Sputum Culture - Final Light growth normal respiratory ursula Lab - Hematology Results 02/25/18 02/26/18 08:23 06:10 WBC 15.9 H 11.3 H RBC 3.00 L 2.64 L Hgb 9.2 L 8.2 L Hct 28.8 L 25.4 L MCV 96.3 96.2 MCH 30.7 30.9 MCHC 31.9 L 32.1 RDW 19.7 H 20.2 H Plt Count 81 L D MPV 10.9 11.0 Prelim Diff (Auto) Slide review pending Slide review pending Neut % (Auto) 92.6 H 91.7 H Lymph % (Auto) 3.8 L 4.4 L [place] % (Auto) 3.4 3.7 Eos % (Auto) 0.0 0.0 Baso % (Auto) 0.2 0.2 Neut # (Auto) 14.7 H 10.4 H Lymph # (Auto) 0.6 L 0.5 L [place] # (Auto) 0.5 0.4 Eos # (Auto) 0.0 0.0 Baso # (Auto) 0.0 0.0 WBC Differential . . Diff Scan Auto diff confirmed Auto diff confirmed Differential Comment . . Platelet Estimate Low L Low L Platelet Morphology Enlarged H Enlarged H Lab - Chemistry Results 02/24/18 02/25/18 02/25/18 23:30 05:15 06:06 Sodium Potassium Chloride Carbon Dioxide Anion Gap BUN Creatinine 3.50 H Estimated GFR 18 L POC Glucose 189 H 161 H Random Glucose Calcium Phosphorus Magnesium Total Bilirubin AST ALT Alkaline Phosphatase Total Protein Albumin 02/25/18 02/25/18 02/25/18 08:23 08:23 12:04 Sodium 150 H Potassium 5.9 H D Chloride 120 H Carbon Dioxide 20.0 L Anion Gap 10 BUN 123 H Creatinine 3.57 H Estimated GFR 17 L POC Glucose 191 H Random Glucose 173 H Calcium 8.2 L Phosphorus 5.3 H Magnesium 2.5 Total Bilirubin 0.3 AST 30 ALT 8 L Alkaline Phosphatase 52 Total Protein 6.3 L Albumin 2.6 L 02/25/18 02/25/18 02/26/18 17:51 22:47 00:13 Sodium 152 H Potassium 5.4 H Chloride 123 H Carbon Dioxide 20.6 L Anion Gap 8 BUN 125 H Creatinine 3.73 H Estimated GFR 16 L POC Glucose 249 H 188 H Random Glucose 207 H Calcium 8.0 L Phosphorus Magnesium Total Bilirubin AST ALT Alkaline Phosphatase Total Protein Albumin 02/26/18 02/26/18 02/26/18 06:07 06:10 11:30 Sodium 154 H Potassium 5.0 Chloride 122 H Carbon Dioxide 21.0 Anion Gap 11 BUN 124 H Creatinine 3.57 H Estimated GFR 17 L POC Glucose 128 H 126 H Random Glucose 123 H Calcium 7.9 L Phosphorus Magnesium Total Bilirubin 0.3 AST 23 ALT 6 L Alkaline Phosphatase 49 Total Protein 5.7 L D Albumin 2.4 L 02/26/18 17:14 Sodium Potassium Chloride Carbon Dioxide Anion Gap BUN Creatinine Estimated GFR POC Glucose 224 H Random Glucose Calcium Phosphorus Magnesium Total Bilirubin AST ALT Alkaline Phosphatase Total Protein Albumin Imaging: ITS Impressions Abdomen/Bladder Ultrasound 02/05/18 00:00 CONCLUSION: 1. No evidence of hydronephrosis. 2. The echogenicity of the kidneys is equal to that of the liver which can be seen with medical renal disease. 3. Simple cyst in right kidney. 4. Suboptimal visualization of the left kidney. 5. Small amount of free fluid along the spleen. This could represent an adjacent pleural effusion. Head CT 02/15/18 12:23 CONCLUSION: 1. Negative CT Head non contrast. . Head MRI 02/16/18 08:28 CONCLUSION: 1. New focus of restricted diffusion high along the right cerebral vertex measuring 8 mm consistent with a new small focal acute infarction. 2. There is a new 5 mm area restricted diffusion high along the left cerebral vertex consistent with a new small focal acute infarction. 3. 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 This area is stable compared to the prior examination. 4. Stable bilateral cortical atrophy and mild chronic white matter changes. 5. Chronic bilateral mastoiditis. Abdomen X-Ray 02/17/18 00:00 CONCLUSION: Nonspecific bowel gas pattern. Chest CT 02/18/18 00:00 CONCLUSION: 1. Increasing basilar and dependent consolidation in both lungs most characteristic of pneumonia or aspiration. 2. Near complete resolution of previous small effusions. 3. Osteopenia with stable compression deformities in the spine. 4. Previous sternotomy with aortic valve replacement. 5. Right-sided central line, ET tube and NG tube in good position. Chest X-Ray 02/24/18 06:00 CONCLUSION: Stable chest x-ray with atelectasis at the right lung base and volume loss versus consolidation in the left lower lobe. Physical Exam: GENERAL: Intubated. On vent cachectic SKIN: Warm and dry. HEAD: Atraumatic. Normocephalic. EYES: Pupils equal and round. No scleral icterus. No injection or drainage. ENT: No nasal bleeding or discharge. Mucous membranes pale NECK: Trachea midline. No JVD. CARDIOVASCULAR: Regular rate and rhythm. + diastolic blowing murmur on aortic valve point 1-2/6 today RESPIRATORY: No accessory muscle use. b/l rales to auscultation. Breath sounds equal bilaterally. GASTROINTESTINAL: Abdomen soft, tight, distended and tender . Hepatic and splenic margins not palpable. liquid brown stool in the dign[place] bag : roberson in place with good amount of urine MUSCULOSKELETAL: Extremities without clubbing, cyanosis, or edema. No obvious deformities. warmt o cool to touch feet NEUROLOGICAL: Obtunded, unresponsive PSYCHIATRIC:unable to assess Assessment and Plan - Plan Sepsis C.diff ? VAP ; PSAE, KLEb - new infiltrates and difficulty weaning - CT and CXR look worse, though resp status improved with Previous MSSA sepsis with presumed PVE of aortic valve prosthesis, on treatment - tx included vanco+ gent w/o rifampin Acute renal insufficiency, improving slowly GFR CHF EF < 20 % sp MO troponin peaked @ 32 cont vanco + gent as a part of PVE Rx will not add rifampin while on amio 2/2 interaction with amiodarone Rifampin can be added if amiodarone is discontinued ccont cefepime and complete 7-14 days of PNA treatment Worsening leukocytosis, C.diff is likely the source Ileus New stroke worsening renal status: improved after vanco and gent stopped / new sepsis? Fungiuria cont cefepime, IV vanco cont C.diff tx: po vanco cont IV flagyl rechk C.diff rechk blood clx start [id number]
[2018-02-27] MEDS: Oral Hygiene Kit OROPHARYNG SCH ×5 (00:55→23:41)
[2018-02-27] MEDS: Insulin NovoLOG Aspart Correctional Sugar Inj SQ SCH ×5 (00:57→23:44)
[2018-02-27 02:37] LABS: Baso % (Auto) 0.2 % (0.0-2.0); Eos % (Auto) 0.1 % (0.0-4.0); Lymph # (Auto) 0.4 th/mm3 (1.0-4.8); Lymph % (Auto) 4.1 % (9.0-44.0); Mean Corpuscular HGB Conc 32.1 % (32.0-36.0); Mean Corpuscular Hemoglobin 31.3 pg (27.0-34.0); Mean Corpuscular Volume 97.5 fL (80.0-100.0); Mean Platelet Volume 11.1 fL (7.0-11.0); Mono # (Auto) 0.3 th/mm3 (0.0-0.9); Mono % (Auto) 3.5 % (0.0-8.0); Neut # (Auto) 8.9 th/mm3 (1.8-7.7); Neut % (Auto) 92.1 % (16.0-70.0); Red Blood Count 2.56 mil/mm3 (4.50-5.90); White Blood Count 9.6 th/mm3 (4.0-11.0)
[2018-02-27 02:59] LABS: Albumin 2.4 g/dL (3.4-5.0); Calcium 7.9 mg/dL (8.5-10.1); Carbon Dioxide 21.6 meq/L (21.0-32.0); Phosphorus 5.4 mg/dL (2.5-4.9); Potassium 4.3 meq/L (3.5-5.1)
[2018-02-27 03:00] LABS: Vancomycin,Random 17.3 Comment
[2018-02-27 03:17] LABS: Ovalocytes 1+
[2018-02-27] MEDS: fentaNYL 10 mcg/mL Premix Drip 2,500 MCG/250 ML BAG IV.SIG PRN ×2 (04:10→23:59)
[2018-02-27] MEDS: Ferrrous Sulfate 300 MG/5 ML UDC PO SCH (08:11)
[2018-02-27] MEDS: Pregabalin 75 MG Capsule PO SCH ×2 (08:11→21:24)
[2018-02-27] MEDS: Ascorbic Acid 500 MG Tablet NG/OG SCH (08:12)
[2018-02-27] MEDS: Beneprotein Powder Packet G-TUBE SCH ×3 (08:12→17:14)
[2018-02-27] MEDS: Amiodarone 200 MG Tablet G-TUBE SCH ×2 (08:12→21:23)
[2018-02-27] MEDS: Chlorhexidine 0.12% Oral Kit 15 ML UDC OROPHARYNG SCH ×2 (08:13→21:23)
[2018-02-27] MEDS: Senna/Docusate Sodium 8.6/50 MG Tablet PO SCH ×2 (08:13→21:24)
[2018-02-27] MEDS: MethylPREDNISolone Sod Succinate Inj 40 MG/ML Vial IV.PUSH SCH (08:14)
[2018-02-27] MEDS: Heparin Drip 25,000 UNIT/250 ML BAG IV.CONT PRN (08:15)
[2018-02-27] MEDS: Hypromellose 0.3% Opth Gel 10 GM Bottle EACH EYE SCH ×2 (09:15→21:25)
--- NOTE | 2018-02-27 09:33 | P.CONGI ---
History of Present Illness Consult date: 02/27/18 Consult reason: PEG tube Chief complaint: septic shock History of Present Illness: This is a 62 yo M who was initially brought to the hospital on February 04 for evaluation of chills, he developed atrial flutter with RVR and was admitted to ICU for management of this and septic shock. Pt had a V fib arrest on February 09 , ROSC was achieved. Pt has been extubated since this arrest but was unable to sustain this and was therefore reintubated on 02/23. Our service has been consulted for PEG tube placement. Currently patient is receiving nutrition through NG tube, nutrition recommends Jevity 1.5 at a goal rate of 50 mL/hr. Of note, pt underwent cardiac cath with stenting x 2 and IABP placement on 02/05 , was on Plavix, however this has been discontinued in anticipation of pt getting a tracheostomy and PEG tube. Pt remains on Heparin gtt. <Jennifer Roberts - Last Filed: 02/27/18 09:22> Review of Systems unobtainable due to endotracheal tube <Jennifer Roberts - Last Filed: 02/27/18 09:22> PMFSH - History History Provided By: Patient - Medical History Medical History: Medical History (Last Reviewed 02/23/18 @ 08:03 by Danielle Sanchez [employer], [employer]) HLD (hyperlipidemia) MSSA bacteremia Normal endoscopy COPD (chronic obstructive pulmonary disease) CVA (cerebral vascular accident) Neuropathy Osteoporosis - Surgical History Surgical History: Surgical History (Last Reviewed 02/22/18 @ 09:35 by Justin Hankins) H/O mechanical aortic valve replacement History of inguinal hernia repair, bilateral - Family History Family History: Family History (Last Reviewed 02/16/18 @ 09:19 by Iman Ang) Mother CAD (coronary artery disease) Father Valvular heart disease Brother Lung cancer - Tobacco History Second Hand Smoke Exposure: No (On disability. 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 ) Smoking Status: Former smoker Tobacco Type: Cigarettes - Alcohol History How Often Do You Have a Drink Containing Alcohol: Monthly or less - Substance Use History Substance History: No History of Abuse <Jennifer Roberts - Last Filed: 02/27/18 09:22> - Medical History Medical History: Medical History (Last Reviewed 02/23/18 @ 08:03 by Danielle Sanchez [employer]ist, [employer]) HLD (hyperlipidemia) MSSA bacteremia Normal endoscopy COPD (chronic obstructive pulmonary disease) CVA (cerebral vascular accident) Neuropathy Osteoporosis - Surgical History Surgical History: Surgical History (Last Reviewed 02/22/18 @ 09:35 by Justin Hankins) H/O mechanical aortic valve replacement History of inguinal hernia repair, bilateral - Family History Family History: Family History (Last Reviewed 02/16/18 @ 09:19 by Iman Ang) Mother CAD (coronary artery disease) Father Valvular heart disease Brother Lung cancer <Kelvin Valenzuela - Last Filed: 02/27/18 19:24> Medications and Allergies Active Medications: Active Medications Acetaminophen (Tylenol Liq) 650 mg PO Q6H PRN PRN Reason: FEVER Last Admin: 02/19/18 15:18 Dose: 650 mg Al Hydroxide/Mg Hydroxide (Milk Of Magnesia Liq) 30 ml PO Q12H PRN PRN Reason: Mild Constipation Albuterol (Duoneb Neb ([facility])) 1 ampul NEB Q6HR NEB [facility] Last Admin: 02/27/18 08:59 Dose: 1 ampul Albuterol (Albuterol Neb (Prn)) 2.5 mg NEB Q2HR NEB PRN PRN Reason: SHORTNESS OF BREATH/WHEEZING Last Admin: 02/09/18 21:20 Dose: 2.5 mg Amiodarone HCl (Cordarone) 400 mg G-TUBE BID [facility] Last Admin: 02/27/18 08:12 Dose: 400 mg Artificial Tears (Genteal Severe Dry Eye Relief 0.3% Opth Gel) 1 drops EACH EYE BID [facility] Last Admin: 02/26/18 20:34 Dose: 1 drops Ascorbic Acid (Vitamin C) 500 mg NG/OG DAILY [facility] Last Admin: 02/27/18 08:12 Dose: 500 mg Aspirin (Aspirin Chew) 81 mg PO DAILY [facility] Last Admin: 02/27/18 08:13 Dose: 81 mg Atorvastatin Calcium (Lipitor) 40 mg PO HS [facility] Last Admin: 02/26/18 20:34 Dose: 40 mg Bisacodyl (Dulcolax Supp) 10 mg RECTAL DAILY PRN PRN Reason: SEVERE CONSITIPATION Chlorhexidine Gluconate (Peridex 0.12% Oral Kit) 15 ml OROPHARYNG BID@0800, 2000 [facility] Last Admin: 08/13/18 08:13 Dose: 15 ml Clopidogrel Bisulfate (Plavix) 75 mg PO DAILY [facility] Last Admin: 02/25/18 09:13 Dose: 75 mg Dextrose (D50w Vial) 50 ml IV.PUSH UNSCH PRN PRN Reason: PER HYPOGLYCEMIA PROTOCOL Digoxin (Lanoxin Inj) 250 mcg IV.PUSH DAILY [facility] Last Admin: 02/11/18 15:41 Dose: Not Given Duloxetine HCl (Cymbalta) 90 mg PO DAILY [facility] Last Admin: 02/11/18 11:18 Dose: Not Given Ferrous Sulfate (Ferrrous Sulfate Liq) 300 mg PO DAILY [facility] Last Admin: 02/27/18 08:11 Dose: 300 mg Glucagon (Glucagon Inj) 1 mg OTHER PRN PRN PRN Reason: for Hypoglycemia Protocol Heparin Sodium (Porcine) (Heparin Inj) 2,500 units IV.PUSH UNSCH PRN PRN Reason: aPTT 25-39 Heparin Sodium (Porcine) (Heparin Inj) 5,000 units IV.PUSH UNSCH PRN PRN Reason: aPTT < 25 Last Admin: 02/23/18 14:38 Dose: 2,500 units Heparin Sodium/Dextrose (Heparin/D5w 25,000 U/250 Ml) 25,000 unit in 250 mls @ 8 mls/hr IV.CONT TITRATE PRN; Protocol PRN Reason: Per Protocol Last Admin: 02/27/18 08:15 Dose: 600 units/hr, 6 mls/hr Metronidazole/Sodium Chloride (Flagyl 500 Mg Inj) 100 mls @ 100 mls/hr IV.SIG Q8H [facility] Last Admin: 02/27/18 04:10 Dose: 100 mls/hr Midazolam HCl (Versed Inj) 50 mg in 50 mls @ 2 mls/hr IV.CONT TITRATE PRN; Protocol PRN Reason: Per Protocol Last Admin: 02/26/18 22:28 Dose: 8 mg/hr, 8 mls/hr Fentanyl (Fentanyl 10 Mcg/Ml Premix Drip) 2,500 mcg in 250 mls @ 5 mls/hr IV.SIG TITRATE PRN; Protocol PRN Reason: Per Protocol Last Admin: 02/27/18 04:10 Dose: 100 mcg/hr, 10 mls/hr Norepinephrine Bitartrate 16 (mg/ Dextrose) 250 mls @ 1.87 mls/hr IV.CONT TITRATE PRN; Protocol PRN Reason: See Protocol Cefepime HCl 2,000 mg/ Sodium (Chloride) 100 mls @ 200 mls/hr IV.SIG Q24H [facility] Last Admin: 02/27/18 08:11 Dose: 200 mls/hr Pharmacy Profile Note (Vancomycin Consult Pharmacy) 0 mls @ 0 mls/hr OTHER UNSCH [facility] Sodium Chloride 38.5 meq/ (Sterile Water) 1,009.625 mls @ 75 mls/hr IV.CONT .[id number] [facility] Last Admin: 02/26/18 20:34 Dose: 75 mls/hr Fluconazole (Diflucan 200 Mg Premix Bag) 100 mls @ 100 mls/hr IV.SIG Q24H [facility] Last Admin: 02/27/18 00:55 Dose: 100 mls/hr Insulin Aspart (Novolog Insulin Correctional Sugar Inj) 0 unit SQ Q6HR [facility]; Protocol Last Admin: 02/27/18 06:46 Dose: 1 unit Lactulose (Lactulose Liq) 30 ml PO DAILY PRN PRN Reason: SEVERE CONSITIPATION Last Admin: 02/05/18 08:38 Dose: 30 ml Lansoprazole (Prevacid Solutab) 30 mg NG/OG DAILY [facility] Last Admin: 02/27/18 08:11 Dose: 30 mg Methylprednisolone Sodium Succinate (Solumedrol Inj) 40 mg IV.PUSH DAILY [facility] Last Admin: 02/27/18 08:14 Dose: 40 mg Multivitamins (Theragran) 1 tab PO DAILY [facility] Last Admin: 02/27/18 08:11 Dose: 1 tab Potassium Chloride (Kcl) 20 meq G-TUBE BID [facility] Last Admin: 02/25/18 20:39 Dose: Not Given Pregabalin (Lyrica) 150 mg PO BID [facility] Last Admin: 02/27/18 08:11 Dose: 150 mg Senna/Docusate Sodium (Linda-Colace) 1 tab PO BID [facility] Last Admin: 02/27/18 08:13 Dose: 1 tab Sennosides (Senokot) 17.2 mg PO Q12H PRN PRN Reason: Moderate Constipation Sodium Chloride (Ns Flush) 2 ml IV.FLUSH BID [facility] Last Admin: 02/27/18 08:13 Dose: 2 ml Sodium Chloride (Ns Flush) 2 ml IV.FLUSH PRN PRN PRN Reason: FLUSH AFTER USING IV ACCESS Sterile Water (Free Water) 0 ml G-TUBE Q4HR [facility] Last Admin: 02/27/18 08:13 Dose: 200 ml Terbutaline Sulfate (Brethine Inj) 1 mg SQ UNSCH PRN PRN Reason: For Extravasation Vancomycin HCl (Vancomycin Po) 500 mg G-TUBE Q6HR [facility] Last Admin: 02/27/18 08:11 Dose: 500 mg Whey (Beneprotein Powder) 1 packet G-TUBE TID [facility] Last Admin: 02/27/18 08:12 Dose: 1 packet <Jennifer Roberts - Last Filed: 02/27/18 09:22> Active Medications: Active Medications Acetaminophen (Tylenol Liq) 650 mg PO Q6H PRN PRN Reason: FEVER Last Admin: 02/19/18 15:18 Dose: 650 mg Al Hydroxide/Mg Hydroxide (Milk Of Magnesia Liq) 30 ml PO Q12H PRN PRN Reason: Mild Constipation Albuterol (Duoneb Neb ([facility])) 1 ampul NEB Q6HR NEB [facility] Last Admin: 02/27/18 15:26 Dose: 1 ampul Albuterol (Albuterol Neb (Prn)) 2.5 mg NEB Q2HR NEB PRN PRN Reason: SHORTNESS OF BREATH/WHEEZING Last Admin: 02/09/18 21:20 Dose: 2.5 mg Amiodarone HCl (Cordarone) 400 mg G-TUBE BID [facility] Last Admin: 02/27/18 08:12 Dose: 400 mg Artificial Tears (Genteal Severe Dry Eye Relief 0.3% Opth Gel) 1 drops EACH EYE BID [facility] Last Admin: 02/27/18 09:15 Dose: 1 drops Ascorbic Acid (Vitamin C) 500 mg NG/OG DAILY [facility] Last Admin: 02/27/18 08:12 Dose: 500 mg Aspirin (Aspirin Chew) 81 mg PO DAILY [facility] Last Admin: 02/27/18 08:13 Dose: 81 mg Atorvastatin Calcium (Lipitor) 40 mg PO HS [facility] Last Admin: 02/26/18 20:34 Dose: 40 mg Bisacodyl (Dulcolax Supp) 10 mg RECTAL DAILY PRN PRN Reason: SEVERE CONSITIPATION Chlorhexidine Gluconate (Peridex 0.12% Oral Kit) 15 ml OROPHARYNG BID@0800, 1999 [facility] Last Admin: 02/27/18 08:13 Dose: 15 ml Clopidogrel Bisulfate (Plavix) 75 mg PO DAILY [facility] Last Admin: 02/25/18 09:13 Dose: 75 mg Dextrose (D50w Vial) 50 ml IV.PUSH UNSCH PRN PRN Reason: PER HYPOGLYCEMIA PROTOCOL Digoxin (Lanoxin Inj) 250 mcg IV.PUSH DAILY [facility] Last Admin: 02/11/18 15:41 Dose: Not Given Duloxetine HCl (Cymbalta) 90 mg PO DAILY [facility] Last Admin: 02/11/18 11:18 Dose: Not Given Ferrous Sulfate (Ferrrous Sulfate Liq) 300 mg PO DAILY [facility] Last Admin: 02/27/18 08:11 Dose: 300 mg Glucagon (Glucagon Inj) 1 mg OTHER PRN PRN PRN Reason: for Hypoglycemia Protocol Heparin Sodium (Porcine) (Heparin Inj) 2,500 units IV.PUSH UNSCH PRN PRN Reason: aPTT 25-39 Heparin Sodium (Porcine) (Heparin Inj) 5,000 units IV.PUSH UNSCH PRN PRN Reason: aPTT < 25 Last Admin: 02/23/18 14:38 Dose: 2,500 units Heparin Sodium/Dextrose (Heparin/D5w 25,000 U/250 Ml) 25,000 unit in 250 mls @ 8 mls/hr IV.CONT TITRATE PRN; Protocol PRN Reason: Per Protocol Last Admin: 02/27/18 08:15 Dose: 600 units/hr, 6 mls/hr Metronidazole/Sodium Chloride (Flagyl 500 Mg Inj) 100 mls @ 100 mls/hr IV.SIG Q8H [facility] Last Infusion: 02/27/18 13:15 Dose: Infused Midazolam HCl (Versed Inj) 50 mg in 50 mls @ 2 mls/hr IV.CONT TITRATE PRN; Protocol PRN Reason: Per Protocol Last Titration: 02/27/18 07:00 Dose: 0 mg/hr, 0 mls/hr Fentanyl (Fentanyl 10 Mcg/Ml Premix Drip) 2,500 mcg in 250 mls @ 5 mls/hr IV.SIG TITRATE PRN; Protocol PRN Reason: Per Protocol Last Admin: 02/27/18 04:10 Dose: 100 mcg/hr, 10 mls/hr Norepinephrine Bitartrate 16 (mg/ Dextrose) 250 mls @ 1.87 mls/hr IV.CONT TITRATE PRN; Protocol PRN Reason: See Protocol Cefepime HCl 2,000 mg/ Sodium (Chloride) 100 mls @ 200 mls/hr IV.SIG Q24H [facility] Last Infusion: 02/27/18 09:00 Dose: Infused Pharmacy Profile Note (Vancomycin Consult Pharmacy) 0 mls @ 0 mls/hr OTHER UNSCH [facility] Sodium Chloride 38.5 meq/ (Sterile Water) 1,009.625 mls @ 75 mls/hr IV.CONT .[id number] [facility] Last Admin: 02/27/18 12:15 Dose: 75 mls/hr Fluconazole (Diflucan 200 Mg Premix Bag) 100 mls @ 100 mls/hr IV.SIG Q24H [facility] Last Admin: 02/27/18 00:55 Dose: 100 mls/hr Insulin Aspart (Novolog Insulin Correctional Sugar Inj) 0 unit SQ Q6HR [facility]; Protocol Last Admin: 02/27/18 17:17 Dose: 1 unit Lactulose (Lactulose Liq) 30 ml PO DAILY PRN PRN Reason: SEVERE CONSITIPATION Last Admin: 02/05/18 08:38 Dose: 30 ml Lansoprazole (Prevacid Solutab) 30 mg NG/OG DAILY [facility] Last Admin: 02/27/18 08:11 Dose: 30 mg Methylprednisolone Sodium Succinate (Solumedrol Inj) 40 mg IV.PUSH DAILY [facility] Last Admin: 02/27/18 08:14 Dose: 40 mg Multivitamins (Theragran) 1 tab PO DAILY [facility] Last Admin: 02/27/18 08:11 Dose: 1 tab Potassium Chloride (Kcl) 20 meq G-TUBE BID [facility] Last Admin: 02/25/18 20:39 Dose: Not Given Pregabalin (Lyrica) 150 mg PO BID [facility] Last Admin: 02/27/18 08:11 Dose: 150 mg Senna/Docusate Sodium (Linda-Colace) 1 tab PO BID [facility] Last Admin: 02/27/18 08:13 Dose: 1 tab Sennosides (Senokot) 17.2 mg PO Q12H PRN PRN Reason: Moderate Constipation Sodium Chloride (Ns Flush) 2 ml IV.FLUSH BID [facility] Last Admin: 02/27/18 08:13 Dose: 2 ml Sodium Chloride (Ns Flush) 2 ml IV.FLUSH PRN PRN PRN Reason: FLUSH AFTER USING IV ACCESS Sterile Water (Free Water) 0 ml G-TUBE Q4HR [facility] Last Admin: 02/27/18 17:14 Dose: 200 ml Terbutaline Sulfate (Brethine Inj) 1 mg SQ UNSCH PRN PRN Reason: For Extravasation Vancomycin HCl (Vancomycin Po) 500 mg G-TUBE Q6HR [facility] Last Admin: 02/27/18 17:15 Dose: 500 mg Whey (Beneprotein Powder) 1 packet G-TUBE TID [facility] Last Admin: 02/27/18 17:14 Dose: 1 packet <Hemaidan,Ammar - Last Filed: 02/27/18 19:24> Allergies Allergy/AdvReac Type Severity Reaction Status Date / Time No Known Allergies Allergy Verified 02/04/18 18:10 Home Medications Medication Instructions Recorded Confirmed Type ascorbic acid (vitamin C) [Vitamin See Label Instructions .ROUTE 01/22/18 History C] .COMPLEX duloxetine [Cymbalta] 90 mg PO DAILY 01/22/18 02/06/18 History ferrous sulfate [Iron (ferrous 1 tab PO DAILY 01/22/18 02/06/18 History sulfate)] hydrocodone-acetaminophen [[place]] 1 tab PO Q6H 01/22/18 02/06/18 History multivitamin 1 cap PO QAM 01/22/18 02/06/18 History pregabalin [Lyrica] 200 mg PO BID 01/22/18 02/06/18 History tamsulosin [Flomax] 0.4 mg PO DAILY 01/22/18 02/06/18 History warfarin [Coumadin] 6 mg PO DAILY 01/22/18 02/06/18 History Exam Vital signs: Vital Signs 02/26/18 10:00 02/26/18 12:00 02/26/18 12:26 Temperature 98.9 F Pulse Rate 75 75 Respiratory Rate 12 8 L Blood Pressure 101/61 Pulse Oximetry 97 99 02/26/18 14:00 02/26/18 16:00 02/26/18 16:01 Temperature 99.5 F Pulse Rate 78 84 Respiratory Rate 61 H 20 Blood Pressure 102/59 L Pulse Oximetry 99 99 02/26/18 18:00 02/26/18 20:00 02/26/18 20:59 Temperature Pulse Rate 78 80 72 Respiratory Rate 40 H 18 Blood Pressure 110/67 Pulse Oximetry 100 100 02/26/18 22:00 02/27/18 00:00 02/27/18 00:31 Temperature 98.7 F Pulse Rate 70 67 Respiratory Rate 44 H 19 Blood Pressure 91/59 L Pulse Oximetry 100 94 L 02/27/18 02:00 02/27/18 04:00 02/27/18 04:49 Temperature 98.3 F Pulse Rate 64 61 62 Respiratory Rate 51 H 18 Blood Pressure 88/57 L Pulse Oximetry 100 100 02/27/18 06:00 02/27/18 07:00 02/27/18 08:50 Temperature Pulse Rate 61 67 Respiratory Rate 6 L 10 L Blood Pressure Pulse Oximetry Intake & Output 02/26/18 02/27/18 02/27/18 18:59 06:59 18:59 Intake Total 1050 / 1050 2701.625 / 2701.625 Output Total 1750 / 1750 900 / 900 Balance -700 / -700 1801.625 / 1801.625 Weight 58.5 kg Intake: IV 200 / 200 1359.625 / 1359.625 Heparin/D5W 25,000 U/250 mL 25, 250 / 250 000 unit In 250 ml @ 800 UNITS/ HR 8 mls/hr IV.CONT TITRATE PRN Rx#:[id number] Sodium Chloride 23.4% Inj 38.5 1009.625 / 1009.625 MEQ In Sterile Water for Inj 1, 000 ML @ 75 mls/hr IV.CONT . [id number] [facility] Rx#:[id number] Maxipime Inj 2,000 MG In NS Inj 100 / 100 100 ML @ 200 mls/hr IV.SIG Q24H [facility] Rx#:[id number] Flagyl 500 MG Inj 100 ML @ 100 100 / 100 100 / 100 mls/hr IV.SIG Q8H [facility] Rx#: [id number] Oral 0 / 0 Tube Feeding 330 / 330 742 / 742 Tube Irrigant 120 / 120 Water Bolus Amount 400 / 400 600 / 600 Output: Stool 1100 / 1100 50 / 50 Urine Amount (Catheter) 650 / 650 850 / 850 Indwelling Urethral Catheter 650 / 650 850 / 850 Other: Date of Last Bowel Movement 02/26/18 02/26/18 - Constitutional no acute distress - Routine HEENT Exam Head: Present: normocephalic, atraumatic - Routine Respiratory Exam Present: patient mechanically ventilated - Routine Abdominal Exam Present: soft, normoactive bowel sounds. Absent: distended - Routine Skin Exam Present: dry, warm - Routine Neurological Exam opens eyes spontaneously <JaydenJennifer alford - Last Filed: 02/27/18 09:22> Vital signs: Vital Signs 02/26/18 20:00 02/26/18 20:59 02/26/18 22:00 Temperature Pulse Rate 80 72 70 Respiratory Rate 40 H 18 Blood Pressure 110/67 Pulse Oximetry 100 100 02/27/18 00:00 02/27/18 00:31 02/27/18 02:00 Temperature 98.7 F Pulse Rate 67 64 Respiratory Rate 44 H 19 Blood Pressure 91/59 L Pulse Oximetry 100 94 L 02/27/18 04:00 02/27/18 04:49 02/27/18 06:00 Temperature 98.3 F Pulse Rate 61 62 61 Respiratory Rate 51 H 18 Blood Pressure 88/57 L Pulse Oximetry 100 100 02/27/18 07:00 02/27/18 08:00 02/27/18 08:50 Temperature 97.6 F Pulse Rate 67 63 Respiratory Rate 6 L 21 10 L Blood Pressure 108/67 Pulse Oximetry 99 02/27/18 10:00 02/27/18 11:55 02/27/18 12:00 Temperature 98.1 F Pulse Rate 65 74 Respiratory Rate 10 L 22 Blood Pressure 104/59 L Pulse Oximetry 99 02/27/18 14:00 02/27/18 15:26 02/27/18 15:27 Temperature Pulse Rate 66 72 Respiratory Rate 11 L 10 L Blood Pressure Pulse Oximetry 02/27/18 16:00 02/27/18 18:00 Temperature 98.3 F Pulse Rate 71 68 Respiratory Rate 20 Blood Pressure 104/61 Pulse Oximetry 99 Intake & Output 02/27/18 02/27/18 02/28/18 06:59 18:59 06:59 Intake Total 2701.625 / 2701.625 2692.125 / 2692.125 Output Total 900 / 900 850 / 850 Balance 1801.625 / 2009.396 2724.125 / 1842.125 Weight 58.5 kg Intake: IV 1359.625 / 6033.911 0965.125 / 1567.125 Heparin/D5W 25,000 U/250 mL 25, 250 / 250 000 unit In 250 ml @ 800 UNITS/ HR 8 mls/hr IV.CONT TITRATE PRN Rx#:[id number] Sodium Chloride 23.4% Inj 38.5 1009.625 / 0809.830 2730.625 / 1009.625 MEQ In Sterile Water for Inj 1, 000 ML @ 75 mls/hr IV.CONT . [id number] [facility] Rx#:[id number] Maxipime Inj 2,000 MG In NS Inj 100 / 100 100 ML @ 200 mls/hr IV.SIG Q24H [facility] Rx#:[id number] Vancomycin Inj 750 MG In NS Inj 257.5 / 257.5 250 ML @ 250 mls/hr IV.SIG ONCE ONE Rx#:[id number] Flagyl 500 MG Inj 100 ML @ 100 100 / 100 200 / 200 mls/hr IV.SIG Q8H [facility] Rx#: [id number] Tube Feeding 742 / 742 525 / 525 Water Bolus Amount 600 / 600 600 / 600 Output: Stool 50 / 50 300 / 300 Urine Amount (Catheter) 850 / 850 550 / 550 Indwelling Urethral Catheter 850 / 850 550 / 550 Other: Date of Last Bowel Movement 02/26/18 02/27/18 <MichaelKelvin mcclellan - Last Filed: 02/27/18 19:24> Results - Labs CBC & Chem 7: 02/27/18 02:28 02/27/18 02:28 Labs: Laboratory Results - last 24 hr 02/26/18 02/26/18 02/27/18 11:30 17:14 00:57 WBC RBC Hgb Hct MCV MCH MCHC RDW Plt Count MPV Prelim Diff (Auto) Neut % (Auto) Lymph % (Auto) [place] % (Auto) Eos % (Auto) Baso % (Auto) Neut # (Auto) Lymph # (Auto) [place] # (Auto) Eos # (Auto) Baso # (Auto) WBC Differential Diff Scan Differential Comment Platelet Estimate Platelet Morphology Ovalocytes Sodium Potassium Chloride Carbon Dioxide Anion Gap BUN Creatinine Estimated GFR POC Glucose 126 H 224 H 184 H Random Glucose Calcium Phosphorus Albumin Random Vancomycin 02/27/18 02/27/18 02/27/18 02:28 02:28 06:40 WBC 9.6 RBC 2.56 L Hgb 8.0 L Hct 25.0 L MCV 97.5 MCH 31.3 MCHC 32.1 RDW 20.0 H Plt Count MPV 11.1 H Prelim Diff (Auto) Slide review pending Neut % (Auto) 92.1 H Lymph % (Auto) 4.1 L [place] % (Auto) 3.5 Eos % (Auto) 0.1 Baso % (Auto) 0.2 Neut # (Auto) 8.9 H Lymph # (Auto) 0.4 L [place] # (Auto) 0.3 Eos # (Auto) 0.0 Baso # (Auto) 0.0 WBC Differential . Diff Scan Auto diff confirmed Differential Comment . Platelet Estimate Low L Platelet Morphology Enlarged H Ovalocytes 1+ H Sodium 152 H Potassium 4.3 Chloride 120 H Carbon Dioxide 21.6 Anion Gap 10 BUN 119 H Creatinine 3.40 H Estimated GFR 18 L POC Glucose 191 H Random Glucose 163 H Calcium 7.9 L Phosphorus 5.4 H Albumin 2.4 L Random Vancomycin 17.3 <Jennifer Roberts - Last Filed: 02/27/18 09:22> - Labs CBC & Chem 7: 02/27/18 02:28 02/27/18 02:28 Labs: Laboratory Results - last 24 hr 02/25/18 02/27/18 02/27/18 13:20 00:57 02:28 WBC RBC Hgb Hct MCV MCH MCHC RDW Plt Count MPV Prelim Diff (Auto) Neut % (Auto) Lymph % (Auto) [place] % (Auto) Eos % (Auto) Baso % (Auto) Neut # (Auto) Lymph # (Auto) [place] # (Auto) Eos # (Auto) Baso # (Auto) WBC Differential Diff Scan Differential Comment Platelet Estimate Platelet Morphology Ovalocytes Sodium 152 H Potassium 4.3 Chloride 120 H Carbon Dioxide 21.6 Anion Gap 10 BUN 119 H Creatinine 3.40 H Estimated GFR 18 L POC Glucose 184 H Random Glucose 163 H Calcium 7.9 L Phosphorus 5.4 H Albumin 2.4 L Urine Color [place] Urine Clarity Cloudy H Urine pH 5.0 Ur Specific [place] 1.017 Urine Protein 100 H Urine Glucose (UA) 50 Urine Ketones Negative Urine Occult Blood Large H Urine Nitrate Negative Urine Bilirubin Negative Urine Urobilinogen Less than 2 Ur Leukocyte Esterase Large H Urine RBC 161 H Urine WBC Ur Squamous Epith Cells 1 Urine Bacteria Moderate H Urine Mucus Few H Urine Yeast Many H Micro UA Comment Cath-culture ind Urine Culture Comments Cath-cult indicated Random Vancomycin 17.3 02/27/18 02/27/18 02/27/18 02:28 06:40 12:15 WBC 9.6 RBC 2.56 L Hgb 8.0 L Hct 25.0 L MCV 97.5 MCH 31.3 MCHC 32.1 RDW 20.0 H Plt Count MPV 11.1 H Prelim Diff (Auto) Slide review pending Neut % (Auto) 92.1 H Lymph % (Auto) 4.1 L [place] % (Auto) 3.5 Eos % (Auto) 0.1 Baso % (Auto) 0.2 Neut # (Auto) 8.9 H Lymph # (Auto) 0.4 L [place] # (Auto) 0.3 Eos # (Auto) 0.0 Baso # (Auto) 0.0 WBC Differential . Diff Scan Auto diff confirmed Differential Comment . Platelet Estimate Low L Platelet Morphology Enlarged H Ovalocytes 1+ H Sodium Potassium Chloride Carbon Dioxide Anion Gap BUN Creatinine Estimated GFR POC Glucose 191 H 130 H Random Glucose Calcium Phosphorus Albumin Urine Color Urine Clarity Urine pH Ur Specific [place] Urine Protein Urine Glucose (UA) Urine Ketones Urine Occult Blood Urine Nitrate Urine Bilirubin Urine Urobilinogen Ur Leukocyte Esterase Urine RBC Urine WBC Ur Squamous Epith Cells Urine Bacteria Urine Mucus Urine Yeast Micro UA Comment Urine Culture Comments Random Vancomycin 02/27/18 17:16 WBC RBC Hgb Hct MCV MCH MCHC RDW Plt Count MPV Prelim Diff (Auto) Neut % (Auto) Lymph % (Auto) [place] % (Auto) Eos % (Auto) Baso % (Auto) Neut # (Auto) Lymph # (Auto) [place] # (Auto) Eos # (Auto) Baso # (Auto) WBC Differential Diff Scan Differential Comment Platelet Estimate Platelet Morphology Ovalocytes Sodium Potassium Chloride Carbon Dioxide Anion Gap BUN Creatinine Estimated GFR POC Glucose 172 H Random Glucose Calcium Phosphorus Albumin Urine Color Urine Clarity Urine pH Ur Specific [place] Urine Protein Urine Glucose (UA) Urine Ketones Urine Occult Blood Urine Nitrate Urine Bilirubin Urine Urobilinogen Ur Leukocyte Esterase Urine RBC Urine WBC Ur Squamous Epith Cells Urine Bacteria Urine Mucus Urine Yeast Micro UA Comment Urine Culture Comments Random Vancomycin <Blaine Valenzuelasania - Last Filed: 02/27/18 19:24> Assessment and Plan - Plan Assessment: - PEG tube consult- Admitted on February 04 for evaluation of chills, he developed atrial flutter with RVR and was admitted to ICU for management of this and septic shock. Pt had a V fib arrest on February 09, ROSC was achieved. Pt has been extubated since this arrest but was unable to sustain this and was therefore reintubated on 02/23. Currently patient is receiving nutrition through NG tube, nutrition recommends Jevity 1.5 at a goal rate of 50 mL/hr. Of note, pt underwent cardiac cath with stenting x 2 and IABP placement on , was on Plavix, however this has been discontinued in anticipation of pt getting a tracheostomy and PEG tube. Pt remains on Heparin gtt. Plan: EGD with PEG tomorrow Obtain consent Hold TF After MN Hold Heparin gtt after MN Plavix already on hold- last dose morning of 02/25 Pt on Cefepime and Vancomycin- no further abx coverage needed Appreciate dietary recommendations- Jevity 1.5 @ 50 mL/hr Further recommendations to follow Pt has been seen and examined by myself and Dr. Valenzuela and this note is written on his behalf <Jennifer Roberts - Last Filed: 02/27/18 09:22> - Plan patient was seen and examined, agree with above note, EGD with PEG in am <Kelvin Valenzuela - Last Filed: 02/27/18 19:24>
--- NOTE | 2018-02-27 11:01 | P.PNCC ---
Subjective Subjective Remarks/Hospital Course: 62-year-old male with past medical history of [place] mechanical aortic valve (09/21/12 Dr. Gonzalez), on chronic anticoagulation with warfarin, atrial fibrillation postop from AVR , COPD on 2.5 L home O2, stroke in 2015 resulting in left-sided sensory deficits and neuropathy, osteoporosis with chronic low back pain. He was recently admitted to [facility] from 01/23 through 01/31/18 for MSSA bacteremia. It is believed that the original source of infection was a wound on his right index finger when electric drill slipped and created a puncture wound. He was discharged with right upper extremity PICC line receiving cefazolin 2 g IV every 8 hours and gentamicin 210 mg IV daily. He states that home health administered antibiotics at 17:00 and shortly thereafter he began having chills and rigors and sought medical attention at [facility]. He had no rash. Upon arrival, he was hypotensive in the low 80s. He was given 2 L S bolus but remained hypotensive so was started on Levophed. He then developed heart rate in the 140s, reportedly atrial flutter so he was started on Amiodarone drip in [place] and converted to sinus rhythm. He was transfused 2 units PRBC due to Hgb 9.3. His stool was nonbloody nonmelena but was Hemoccult positive. He was given zosyn and vancomycin. Critical care medicine was then contacted and accepted patient for transfer to [facility]. He denies tenderness/redness/drainage at PICC site. Aside from mechanical aortic valve, he has no other hardware or indwelling devices. He denies headache, cough, dysuria. He has had a few loose stools at home, but stools have sometimes been formed. He denies chest pain, does report some SOB. EKG at [place] had marked inferolateral ischemic changes. Obtained EKG upon arrival to [facility] which is improved. SUBJ 02/05: Patient remains critical ill appearing, complaints of chest tightness but denies pain. Remains on 8 mcg/min of Levophed to maintain map about 65. However increasing shortness of breath. Chest x-ray shows increasing pulmonary edema. Troponin was 27.5 currently on IV heparin therapeutic. Cardiology consult is pending at this time. I will stop on maintenance fluids give 40 mg IV Lasix and IV albumin 25 g 1. Patient is very critical patient and updated at the bedside 02/06: to dye lab technician last night for [facility] with LAD stent complicated by vasospasm of the LAD. IABP placed. patient emergently intubated for acute hypoxic respiratory failure secondary to cardiogenic shock and pulmonary edema. started on milrinone at 0.375 mcg/kg/min and levophed. bumex drip started. remains critically ill. 02/07: Remains critically ill remains on Levophed and milrinone. Currently diuresing well with Bumex drip. IABP in place management per cardiology-good waveform and augmentation. Chest x-ray shows adequate positioning of IABP, diffuse bilateral pulmonary edema 02/08: Remains critical but showing some signs of improvement. Diuresing very well on Bumex infusion. Remains on Levophed and milrinone. IABP one-to-one with good augmentation management per cardiology. Chest x-ray shows improving edema but with persistent bilateral effusions. Will initiate weaning trials if tolerated 02/09: Still remains on pressors, unable to wean Levophed below 2 mcg/min. Milrinone currently on 0.375 mcg/kg/min. IABP removed yesterday. On sedation hold patient wakes up but remains lethargic. Weakly squeezes hand. Urine output excellent on Bumex, 4 L output in 24 hours. Will attempt CPAP today 02/10: Multiple episodes of V. fib V. tach arrest yesterday morning. Successfully resuscitated. Yesterday night had two-minute V. fib arrest return of spontaneous circulation in sinus rhythm after DC cardioversion 1. Currently remains on milrinone and low-dose Levophed. I will try to wean off Levophed introduce low-dose beta-rasheed due to recurrent arrhythmia. Keep potassium more than 4 magnesium more than 2 02/11: Patient still critical and cardiogenic shock requiring Levophed and milrinone. Urine output improved with adding Diamox. Approximately 2 L urine output in 24 hours, creatinine remained stable. Oxygenation slightly improved FiO2 reduced to 70% now. Overall prognosis remains poor family wants to continue aggressive care 02/12: Remains critical but slight improvement in oxygenation. But continues to require Levophed and milrinone the low-dose. Urine output remains adequate. Chest x-ray shows interval improvement. Creatinine remains stable to slightly improved. Add IV albumin to improve blood pressure and to promote diuresis. 02/13 Patient remains intubated and sedated with Versed and fentanyl. Afebrile, off Levophed remains on Milrinone and Heparin drip. 02/14: Hypothermic overnight. Remains on milrinone and heparin drips. Tolerating tube feeds at 20 cc now. Positive BM. No changes neurologically 02/15 Patient remains sedated with Versed and Fentanyl drips, on Milrinone 0.5. 02/16 Patient remains intubated sedated with Versed and Fentanyl infusion. On Milrinone and Heparin drips. CT brain yesterday showed no acute findings. Afebrile. 02/17 Patient remains sedated and intubated. Afebrile, On Milrinone and Heparin drip. 02/18: Remains critical continues to require milrinone. Urine output adequate. Chest x-ray shows bilateral infiltrate effusion. CT chest to better define effusions and infiltrate. Increase Bumex to 1 mg every 8 hours. Patient is persistently weak, will attempt SBT unlikely to be successfully extubated at this time. Most likely will need tracheostomy if family desires aggressive care 02/19: Remains intubated sedated with Versed and fentanyl. Transition to Precedex to facilitate weaning trials. Patient responding slightly more to verbal command, appears to track even though not following commands. Creatinine slightly increased with increased diuresis. Chest x-ray shows improved pleural effusions. CT chest yesterday did not show significant effusion but basilar consolidation. 02/20 Patient was extubated yesterday on 10L simple mask, on Precdex, Heparin and Milrinone drips. Tmax 101.1 yesterday 02/21: Febrile. Currently on 5 L nasal cannula. Continues on heparin drip with 500 units an hour. Received bumetanide 1 mg 1 today. Positive BM 02/22: Remains on 5 L nasal cannula. Remains on heparin drip. No changes neurologically remains medically stable. SUBJECTIVE: 02/23: Intubated early this morning secondary to acute respiratory failure. Blood pressure marginal likely due to sedation. Ejection fraction less than 20% . Discussed with at bedside. She was to proceed with tracheostomy in PEG tube placement. We will plan for within the next few days. 02/24: Remains sedated, orally intubated on mechanical ventilation. 02/25: Remains sedated, orally intubated on mechanical ventilation. Worsening renal function noted. Check UA, urine sodium and creatinine. Ordered Kayexalate for hyperkalemia and nephrology consulted. 02/26: Sedated, arousable, orally intubated on mechanical ventilation. Will hold Plavix for planned tracheostomy and PEG tube placement. Remains on heparin for anticoagulation. 02/27: Drowsy, arousable, orally intubated on mechanical ventilation. Awaiting tracheostomy and PEG tube placement. Objective Vital Signs / I&O: Vital Signs 02/26/18 12:00 02/26/18 12:26 02/26/18 14:00 Temperature 98.9 F Pulse Rate 75 78 Respiratory Rate 12 8 L Blood Pressure 101/61 Pulse Oximetry 97 99 02/26/18 16:00 02/26/18 16:01 02/26/18 18:00 Temperature 99.5 F Pulse Rate 84 78 Respiratory Rate 61 H 20 Blood Pressure 102/59 L Pulse Oximetry 99 99 02/26/18 20:00 02/26/18 20:59 02/26/18 22:00 Temperature Pulse Rate 80 72 70 Respiratory Rate 40 H 18 Blood Pressure 110/67 Pulse Oximetry 100 100 02/27/18 00:00 02/27/18 00:31 02/27/18 02:00 Temperature 98.7 F Pulse Rate 67 64 Respiratory Rate 44 H 19 Blood Pressure 91/59 L Pulse Oximetry 100 94 L 02/27/18 04:00 02/27/18 04:49 02/27/18 06:00 Temperature 98.3 F Pulse Rate 61 62 61 Respiratory Rate 51 H 18 Blood Pressure 88/57 L Pulse Oximetry 100 100 02/27/18 07:00 02/27/18 08:50 Temperature Pulse Rate 67 Respiratory Rate 6 L 10 L Blood Pressure Pulse Oximetry Intake & Output 02/26/18 02/27/18 02/27/18 18:59 06:59 18:59 Intake Total 1050 / 1050 2701.625 / 2701.625 Output Total 1750 / 1750 900 / 900 Balance -700 / -700 1801.625 / 1801.625 Weight 58.5 kg Intake: IV 200 / 200 1359.625 / 1359.625 Heparin/D5W 25,000 U/250 mL 25, 250 / 250 000 unit In 250 ml @ 800 UNITS/ HR 8 mls/hr IV.CONT TITRATE PRN Rx#:[id number] Sodium Chloride 23.4% Inj 38.5 1009.625 / 1009.625 MEQ In Sterile Water for Inj 1, 000 ML @ 75 mls/hr IV.CONT . [id number] [facility] Rx#:[id number] Maxipime Inj 2,000 MG In NS Inj 100 / 100 100 ML @ 200 mls/hr IV.SIG Q24H [facility] Rx#:[id number] Flagyl 500 MG Inj 100 ML @ 100 100 / 100 100 / 100 mls/hr IV.SIG Q8H [facility] Rx#: [id number] Oral 0 / 0 Tube Feeding 330 / 330 742 / 742 Tube Irrigant 120 / 120 Water Bolus Amount 400 / 400 600 / 600 Output: Stool 1100 / 1100 50 / 50 Urine Amount (Catheter) 650 / 650 850 / 850 Indwelling Urethral Catheter 650 / 650 850 / 850 Other: Date of Last Bowel Movement 02/26/18 02/26/18 Result Diagrams: 02/27/18 02:28 02/27/18 02:28 Objective Remarks: GENERAL: 62-year-old male lying in bed in NAD orotracheally intubated SKIN: cool and poorly perfused. HEAD: Atraumatic. Normocephalic. EYES: Pupils equal and round, 2 mm and reactive. No injection or drainage. ENT: No nasal bleeding or discharge. Orotracheally intubated. NG tube in right nares NECK: Trachea midline. Supple, no JVD, no adenopathy/thyromegaly. Left IJ is clean dry and intact CARDIOVASCULAR: RRR. S1, S2. No S4. No murmurs rubs or gallops. RESPIRATORY: Orally intubated on mechanical ventilation, b/L equal air entry. Bilateral rhonchorous breath sounds. GASTROINTESTINAL: Abdomen soft, non-tender, nondistended. no guarding. MUSCULOSKELETAL: Extremities with trace bilateral lower extremity edema NEUROLOGICAL: Sedated, arousable, orally intubated, no focal musculoskeletal or sensory deficits Assessment and Plan - Assessment and Plan Plan: NEURO/PSYCH: History of stroke in 2015 Neuropathy left upper and lower extremity Chronic low back pain Acetaminophen 650 every 6 hours as needed fever 02/15 CT brain: No acute findings. 02/15 EEG : Encephalopathy, no epileptiform activity MRI brain 02/16: New small focal acute infarction right cerebral vertex and also left cerebral vertex. Neuro has followed. Continue ASA 81 mg daily. Continue pregabalin 150 mg p.o. twice daily. Hold duloxetine 90 mg p.o. daily. RESP: Acute hypoxic respiratory failure COPD on 2.5 L home O2 currently on 5 L Prior tobacco abuse Bilateral pleural effusions PRVC 18/500/07/22/40 Albuterol/ipratropium aerosols every 4 hours with albuterol aerosols every 2 hours as needed for dyspnea methylprednisolone succinate 40mg IV daily Follow-up on [facility] x-ray CV: V. tach/V. fib arrest NSTEMI Cardiogenic shock Acute systolic heart failure Atrial fibrillation with RVR [place] mechanical aortic valve (09/21/12 Dr. Gonzalez) s/p Tricuspid annuloplasty Discontinued milrinone 0.25 mgc/kg/min 02/21 Monitor HR and BP keep MAP>65mmHg s/p cath And PCI -proximal LAD and large diagonal 90% stenosis, 2 BMS stent 02/05, mid LAD vasospasm post PCI Continue aspirin 81 mg daily, Hold clopidogrel starting 02/26 for trach/ PEG, amiodarone 400mg TID, carvedilol 3.125mg BID Bumetanide 1mg IV q8h, reduce to 1 mg IV q24. discontinued today 02/21. Stop Spironolactone in v/o hyperkalemia on 02/25 Heparin drip. PTT therapeutic. Continue atorvastatin 40 mg nightly. Off IABP CAM[place] 01/23/18no vegetation. Normal aortic mechanical valve with trivial aortic insufficiency. Tricuspid annuloplasty. Mild to moderate LV generalized hypokinesis Echo from 02/05: EF <20%, diffuse hypokinesis, bioprosthetic valve Ship'S Officer is Romana Bartlett GI: Moderate protein calorie malnutrition with hypoalbuminemia Speech eval, diet per speech, if fails will restart tube feeds-Jevity 1.5 currently at 15 cc an hour. Goal 50 cc an hour Lansoprazole for stress ulcer prophylactic Had normal EGD on 10/21/17 FEN/RENAL: BPH Acute kidney injury-worsening Hypopotassemia Hypernatremia Cano due to aggressive diuresis. close monitoring of uop Monitor renal function, I/O's, Renal ultrasound to evaluate for evidence of obstruction -did not show any obstruction Discontinued bumetanide 1mg IV daily , spironolactone 25 mg twice daily stopped on 02/25 due to hyperkalemia and worsening renal function.. Hold tamsulosin 0.4 mg daily for now Nephrology consult requested for SHARON with worsening BUN/creatinine. 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 difficile colitis PICC removed Continue IV cefepime. Discontinue IV vancomycin and gentamicin 02/20 C.diff tx: po vanco + IV flagyl 02/11/18 Infectious disease following 02/18 Sputum: Pseudomonas 02/14 Sputum: Pseudomonas 02/11 Sputum cx: Pseudomonas, Kleb pneumonia BC 02/11, 02/06: NGTD HEME: Chronic normocytic anemia Iron deficiency Leukocytosis Continue ferrous sulfate 300 milligrams liquid daily. Received 2 units packed red cells in [place] [facility] due to anemia and shock. Monitor CBC ENDO: SSI to maintain euglycemia PROPH: Heparin drip. Protonix for stress ulcer prophylaxis ACCESS: Left IJ central line placed 02/05/18. Palliative care is following Level [address] Dr[address] Quintana discussed with at bedside on 02/23. Request continued aggressive care with tracheostomy and PEG tube placement.
--- NOTE | 2018-02-27 11:07 | P.PNWCN ---
Wound Care Nurse Consult Description: Consult for wound management of sacral per Nikki Haskins/Dr Brock Communicated with: MIKEY Blanton Recommendation: Please reposition patient from left to right sides only, limiting time spent on back for therapy only. Continue applying Calazime to sacral DTI opening up to partial thickness skin loss. Also apply Calazime to DTI on spine/lower back. Full thickness skin loss noted on mid spine should be cleansed Q3D with foam adhesive applied. *Recommend to obtain and place patient on low airloss alternating pressure reducing mattress which only ultrasorb underpads can be used. Additional information: Patient seen on [facility] for sacral and back wounds @0995 today with MIKEY Blanton Wound/Pressure Injury - Wound Sacrum Wound Staging: DTI Length: 8 (cm) Width: 7.5 (cm) Depth: 0.1 (cm) Wound Bed Appearance: Peeling Skin, Red (and purple non blanching) Wound Bed Appearance: dry Drainage Amount: None Dressing Status: Open to Air Topical: Calazime Lower back Wound Staging: DTI Length: 2 (cm) Width: 1 (cm) Depth: 0 Wound Bed Appearance: intact purple non blanching discoloration Topical: Calazime Mid spine Wound Staging: Stage III Length: 1 (cm) Width: 0.8 (cm) Depth: 0.1 (cm) Wound Bed Appearance: Yellow Wound Bed Appearance: dry Drainage Amount: None Primary Dressing: Foam Tape Type: Paper Wound Dressing Change Date: 02/27/18
--- NOTE | 2018-02-27 11:39 | P.PNNP ---
Subjective Interval history: He is on CPAP trial. Renal function and sodium level have improved. On heparin gtt. <Munira Finnegan - Last Filed: 02/27/18 11:46> Physical Exam Vital signs: Vital Signs 02/26/18 12:00 02/26/18 12:26 02/26/18 14:00 Temperature 98.9 F Pulse Rate 75 78 Respiratory Rate 12 8 L Blood Pressure 101/61 Pulse Oximetry 97 99 02/26/18 16:00 02/26/18 16:01 02/26/18 18:00 Temperature 99.5 F Pulse Rate 84 78 Respiratory Rate 61 H 20 Blood Pressure 102/59 L Pulse Oximetry 99 99 02/26/18 20:00 02/26/18 20:59 02/26/18 22:00 Temperature Pulse Rate 80 72 70 Respiratory Rate 40 H 18 Blood Pressure 110/67 Pulse Oximetry 100 100 02/27/18 00:00 02/27/18 00:31 02/27/18 02:00 Temperature 98.7 F Pulse Rate 67 64 Respiratory Rate 44 H 19 Blood Pressure 91/59 L Pulse Oximetry 100 94 L 02/27/18 04:00 02/27/18 04:49 02/27/18 06:00 Temperature 98.3 F Pulse Rate 61 62 61 Respiratory Rate 51 H 18 Blood Pressure 88/57 L Pulse Oximetry 100 100 02/27/18 07:00 02/27/18 08:50 Temperature Pulse Rate 67 Respiratory Rate 6 L 10 L Blood Pressure Pulse Oximetry Intake & Output 02/26/18 02/27/18 02/27/18 18:59 06:59 18:59 Intake Total 1050 / 1050 2701.625 / 2701.625 Output Total 1750 / 1750 900 / 900 Balance -700 / -700 1801.625 / 1801.625 Weight 58.5 kg Intake: IV 200 / 200 1359.625 / 1359.625 Heparin/D5W 25,000 U/250 mL 25, 250 / 250 000 unit In 250 ml @ 800 UNITS/ HR 8 mls/hr IV.CONT TITRATE PRN Rx#:[id number] Sodium Chloride 23.4% Inj 38.5 1009.625 / 1009.625 MEQ In Sterile Water for Inj 1, 000 ML @ 75 mls/hr IV.CONT . [id number] [facility] Rx#:[id number] Maxipime Inj 2,000 MG In NS Inj 100 / 100 100 ML @ 200 mls/hr IV.SIG Q24H [facility] Rx#:[id number] Flagyl 500 MG Inj 100 ML @ 100 100 / 100 100 / 100 mls/hr IV.SIG Q8H [facility] Rx#: [id number] Oral 0 / 0 Tube Feeding 330 / 330 742 / 742 Tube Irrigant 120 / 120 Water Bolus Amount 400 / 400 600 / 600 Output: Stool 1100 / 1100 50 / 50 Urine Amount (Catheter) 650 / 650 850 / 850 Indwelling Urethral Catheter 650 / 650 850 / 850 Other: Date of Last Bowel Movement 02/26/18 02/26/18 - Constitutional no acute distress, thin, cachectic, disheveled Comments: Intubated chronically ill. - Routine HEENT Exam Head: Present: normocephalic - Routine Neck Exam Present: supple, full ROM - Routine Respiratory Exam Present: accessory muscle use - Routine Cardiovascular Exam Present: S1, S2. Absent: murmur - Routine Abdominal Exam Present: soft, normoactive bowel sounds - Routine Extremities Exam Absent: edema - Routine Skin Exam Present: intact, dry, warm. Absent: normal turgor Comments: mild, improved skin tenting - Routine Neurological Exam Present: moving all extremities intubated, sedated - Detailed Neurological Exam: Coma Scale Eye Opening: To pressure Verbal Response: None Motor Response: Localizing [place] Coma Scale Total: 8 - Routine Psychiatric Exam Present: unable to assess - Urinary Catheter Management Condom Cath placed during this visit: yes Reason for continuing: Acute urinary retention Insertion date: 02/24/18 Indwelling Urethral Catheter Cath placed during this visit: yes Reason for continuing: Acute urinary retention Insertion date: 02/24/18 Indwelling Temp Sensing Catheter Cath placed during this visit: yes, but has since been removed by the nurse Reason for continuing: Acute urinary retention Insertion date: 02/12/18 Insertion time: 20:15 Removal date: 02/20/18 Removal time: 16:00 <Munira Finnegan - Last Filed: 02/27/18 11:46> Vital signs: Vital Signs 02/27/18 08:50 02/27/18 10:00 02/27/18 11:55 Temperature Pulse Rate 65 Respiratory Rate 10 L 10 L Blood Pressure Pulse Oximetry 02/27/18 12:00 02/27/18 14:00 02/27/18 15:26 Temperature 98.1 F Pulse Rate 74 66 72 Respiratory Rate 22 11 L Blood Pressure 104/59 L Pulse Oximetry 99 02/27/18 15:27 02/27/18 16:00 02/27/18 18:00 Temperature 98.3 F Pulse Rate 71 68 Respiratory Rate 10 L 20 Blood Pressure 104/61 Pulse Oximetry 99 02/27/18 20:00 02/27/18 21:57 02/27/18 22:00 Temperature 98.5 F Pulse Rate 74 80 77 Respiratory Rate 17 15 Blood Pressure 101/62 Pulse Oximetry 100 95 02/28/18 00:00 02/28/18 00:16 02/28/18 02:00 Temperature 98.5 F Pulse Rate 76 73 Respiratory Rate 17 14 Blood Pressure 101/62 Pulse Oximetry 100 90 L 02/28/18 04:00 02/28/18 04:24 02/28/18 06:00 Temperature 98.2 F Pulse Rate 71 74 76 Respiratory Rate 19 13 Blood Pressure 90/57 L Pulse Oximetry 100 100 Intake & Output 02/27/18 02/28/18 02/28/18 18:59 06:59 18:59 Intake Total 2692.125 / 2692.125 2402 / 2402 Output Total 850 / 850 1200 / 1200 Balance 1842.125 / 5749.021 2340 / 1202 Intake: IV 1567.125 / 1991.918 7495 / 1750 Heparin/D5W 25,000 U/250 mL 25, 100 / 100 000 unit In 250 ml @ 800 UNITS/ HR 8 mls/hr IV.CONT TITRATE PRN Rx#:[id number] Versed Inj 50 mg In 50 ml @ 2 100 / 100 MG/HR 2 mls/hr IV.CONT TITRATE PRN Rx#:[id number] Sodium Chloride 23.4% Inj 38.5 1009.625 / 0834.040 7615 / 1000 MEQ In Sterile Water for Inj 1, 000 ML @ 75 mls/hr IV.CONT . [id number] [facility] Rx#:[id number] Maxipime Inj 2,000 MG In NS Inj 100 / 100 100 ML @ 200 mls/hr IV.SIG Q24H [facility] Rx#:[id number] Diflucan 200 mg Premix Bag 100 200 / 200 ML @ 100 mls/hr IV.SIG Q24H [facility] Rx#:[id number] Vancomycin Inj 750 MG In NS Inj 257.5 / 257.5 250 ML @ 250 mls/hr IV.SIG ONCE ONE Rx#:[id number] fentaNYL 10 mcg/mL Premix Drip 250 / 250 2,500 mcg In 250 ml @ 50 MCG/HR 5 mls/hr IV.SIG TITRATE PRN Rx #:[id number] Flagyl 500 MG Inj 100 ML @ 100 200 / 200 100 / 100 mls/hr IV.SIG Q8H [facility] Rx#: [id number] Tube Feeding 525 / 525 252 / 252 Water Bolus Amount 600 / 600 400 / 400 Output: Stool 300 / 300 100 / 100 Urine Amount (Catheter) 550 / 550 1100 / 1100 Indwelling Urethral Catheter 550 / 550 1100 / 1100 Other: Date of Last Bowel Movement 02/27/18 02/27/18 - Urinary Catheter Management Condom Cath placed during this visit: no Indwelling Urethral Catheter Cath placed during this visit: no Indwelling Temp Sensing Catheter Cath placed during this visit: no <Evangelist Ashley - Last Filed: 02/28/18 08:11> Assessment and Plan - Assessment (1) Acute kidney injury Code(s): N17.9 - Acute kidney failure, unspecified Status: Acute Plan: Baseline 0.9-1.2. SHARON most likely due to overdiuresis and dehydration. Hypernatremia and renal function have improved. Continue 1/4 NS @ 75 cc/hr. Diuretics are held. Repeat labs daily. Avoid nephrotoxic agents. His prognosis is very poor. He is severely malnourished and at risk for complications. Monitor urine output and renal function. No immediate need for dialysis. Continue to monitor. (2) Hyperkalemia Code(s): E87.5 - Hyperkalemia Status: Acute Plan: Improved. He was on potassium replacement and taking Spironolactone. All of these have been stopped. (3) Hyperosmolality and hypernatremia Code(s): E87.0 - Hyperosmolality and hypernatremia Status: Acute Plan: Improved. Iatrogenic, due to loop diuretic, excessive sensible and insensible water losses. On Free water flushes with tube feeding and hypotonic fluids. Avoid hyperglycemia. (4) Sepsis Code(s): A41.9 - Sepsis, unspecified organism Status: Acute Plan: He is on PO Vancomycin for C.diff. On IV Vancomycin and Flagyl. Carefully monitor Vancomycin dosing and levels. 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 (6) Atrial fibrillation Code(s): I48.91 - Unspecified atrial fibrillation Status: Acute Plan: Rate control measures, but avoid Digoxin. <Munira Finnegan - Last Filed: 02/27/18 11:46> - Assessment (1) Acute kidney injury Code(s): N17.9 - Acute kidney failure, unspecified Status: Acute (2) Hyperkalemia Code(s): E87.5 - Hyperkalemia Status: Acute (3) Hyperosmolality and hypernatremia Code(s): E87.0 - Hyperosmolality and hypernatremia Status: Acute (4) Sepsis Code(s): A41.9 - Sepsis, unspecified organism Status: Acute (5) Heart valve replaced by other means Code(s): Z95.4 - Presence of other heart-valve replacement Status: Acute (6) Atrial fibrillation Code(s): I48.91 - Unspecified atrial fibrillation Status: Acute - Attending Attestation patient was seen and examined. Agree with above assessment and plan. Overall poor prognosis, slight improvement in renal parameters and hypernatremia. <Evangelist Ashley - Last Filed: 02/28/18 08:11>
[2018-02-27] MEDS: Sodium Chloride 23.4% Inj 38.5 MEQ in Water for Inj, Sterile 1,000 ML IV.CONT SCH ×2 (12:15→23:42)
[2018-02-27] MEDS ORDERED: Vancomycin Inj 750 MG in Sodium Chlor 0.9% Inj 250 ML IV.SIG ONE (13:00)
[2018-02-27] MEDS: Midazolam 50 MG/50 ML Inj 50 MG/50 ML BAG IV.CONT PRN (21:21)
[2018-02-28] MEDS: Oral Hygiene Kit OROPHARYNG SCH ×4 (03:45→23:52)
[2018-02-28] MEDS: Insulin NovoLOG Aspart Correctional Sugar Inj SQ SCH ×3 (06:20→17:41)
[2018-02-28 07:52] LABS: Baso % (Auto) 0.1 % (0.0-2.0); Eos % (Auto) 0.5 % (0.0-4.0); Hematocrit 21.1 % (39.0-51.0); Lymph # (Auto) 0.4 th/mm3 (1.0-4.8); Mean Corpuscular HGB Conc 33.2 % (32.0-36.0); Mean Corpuscular Hemoglobin 31.6 pg (27.0-34.0); Mean Corpuscular Volume 95.2 fL (80.0-100.0); Mean Platelet Volume 11.1 fL (7.0-11.0); Mono # (Auto) 0.3 th/mm3 (0.0-0.9); Mono % (Auto) 3.4 % (0.0-8.0); Neut # (Auto) 6.8 th/mm3 (1.8-7.7); Platelet Count 52 th/mm3 (150-450); Red Blood Count 2.22 mil/mm3 (4.50-5.90); Red Cell Distribution Width 19.7 % (11.6-17.2); White Blood Count 7.5 th/mm3 (4.0-11.0)
[2018-02-28] MEDS: Midazolam 50 MG/50 ML Inj 50 MG/50 ML BAG IV.CONT PRN ×2 (08:02→18:15)
[2018-02-28 08:39] LABS: Ovalocytes 1+
[2018-02-28 08:40] LABS: Platelet Morphology Normal (Normal)
[2018-02-28] MEDS: Chlorhexidine 0.12% Oral Kit 15 ML UDC OROPHARYNG SCH ×2 (09:19→20:25)
--- NOTE | 2018-02-28 10:39 | P.PNNP ---
Subjective Interval history: Pending labs from today. Still intubated, unresponsive. Due for trach/PEG today. D/W RN at bedside. <Munira Finnegan - Last Filed: 02/28/18 10:36> Physical Exam Vital signs: Vital Signs 02/27/18 11:55 02/27/18 12:00 02/27/18 14:00 Temperature 98.1 F Pulse Rate 74 66 Respiratory Rate 10 L 22 Blood Pressure 104/59 L Pulse Oximetry 99 02/27/18 15:26 02/27/18 15:27 02/27/18 16:00 Temperature 98.3 F Pulse Rate 72 71 Respiratory Rate 11 L 10 L 20 Blood Pressure 104/61 Pulse Oximetry 99 02/27/18 18:00 02/27/18 20:00 02/27/18 21:57 Temperature 98.5 F Pulse Rate 68 74 80 Respiratory Rate 17 15 Blood Pressure 101/62 Pulse Oximetry 100 95 02/27/18 22:00 02/28/18 00:00 02/28/18 00:16 Temperature 98.5 F Pulse Rate 77 76 Respiratory Rate 17 14 Blood Pressure 101/62 Pulse Oximetry 100 90 L 02/28/18 02:00 02/28/18 04:00 02/28/18 04:24 Temperature 98.2 F Pulse Rate 73 71 74 Respiratory Rate 19 13 Blood Pressure 90/57 L Pulse Oximetry 100 100 02/28/18 06:00 02/28/18 08:43 Temperature Pulse Rate 76 75 Respiratory Rate 14 Blood Pressure Pulse Oximetry 100 Intake & Output 02/27/18 02/28/18 02/28/18 18:59 06:59 18:59 Intake Total 2692.125 / 2692.125 2402 / 2402 Output Total 850 / 850 1200 / 1200 Balance 1842.125 / 7036.554 8220 / 1202 Intake: IV 1567.125 / 5930.264 2260 / 1750 Heparin/D5W 25,000 U/250 mL 25, 100 / 100 000 unit In 250 ml @ 800 UNITS/ HR 8 mls/hr IV.CONT TITRATE PRN Rx#:[id number] Versed Inj 50 mg In 50 ml @ 2 100 / 100 MG/HR 2 mls/hr IV.CONT TITRATE PRN Rx#:[id number] Sodium Chloride 23.4% Inj 38.5 1009.625 / 5138.254 7656 / 1000 MEQ In Sterile Water for Inj 1, 000 ML @ 75 mls/hr IV.CONT . [id number] [facility] Rx#:[id number] Maxipime Inj 2,000 MG In NS Inj 100 / 100 100 ML @ 200 mls/hr IV.SIG Q24H [facility] Rx#:[id number] Diflucan 200 mg Premix Bag 100 200 / 200 ML @ 100 mls/hr IV.SIG Q24H [facility] Rx#:[id number] Vancomycin Inj 750 MG In NS Inj 257.5 / 257.5 250 ML @ 250 mls/hr IV.SIG ONCE ONE Rx#:[id number] fentaNYL 10 mcg/mL Premix Drip 250 / 250 2,500 mcg In 250 ml @ 50 MCG/HR 5 mls/hr IV.SIG TITRATE PRN Rx #:[id number] Flagyl 500 MG Inj 100 ML @ 100 200 / 200 100 / 100 mls/hr IV.SIG Q8H [facility] Rx#: [id number] Tube Feeding 525 / 525 252 / 252 Water Bolus Amount 600 / 600 400 / 400 Output: Stool 300 / 300 100 / 100 Urine Amount (Catheter) 550 / 550 1100 / 1100 Indwelling Urethral Catheter 550 / 550 1100 / 1100 Other: Date of Last Bowel Movement 02/27/18 02/27/18 02/27/18 - Constitutional no acute distress, thin, cachectic, chronically ill appearing - Routine HEENT Exam Head: Present: normocephalic - Routine Neck Exam Present: supple, full ROM - Routine Respiratory Exam Present: patient mechanically ventilated, diminished air movement - Routine Cardiovascular Exam Present: S1, S2 - Routine Abdominal Exam Present: soft, normoactive bowel sounds - Routine Extremities Exam Present: pulses intact. Absent: edema - Routine Skin Exam Present: dry, warm - Routine Neurological Exam sedated on fentanyl and versed gtts - Detailed Neurological Exam: Coma Scale Eye Opening: To pressure Verbal Response: None Motor Response: Localizing Janee Coma Scale Total: 8 - Routine Psychiatric Exam Present: unable to assess - Urinary Catheter Management Condom Cath placed during this visit: yes Reason for continuing: Acute urinary retention Insertion date: 02/24/18 Indwelling Urethral Catheter Cath placed during this visit: yes Reason for continuing: Acute urinary retention Insertion date: 02/24/18 Indwelling Temp Sensing Catheter Cath placed during this visit: yes, but has since been removed by the nurse Reason for continuing: Acute urinary retention Insertion date: 02/12/18 Insertion time: 20:15 Removal date: 02/20/18 Removal time: 16:00 <Munira Finnegan - Last Filed: 02/28/18 10:36> Vital signs: Vital Signs 02/28/18 10:00 02/28/18 12:00 02/28/18 14:00 Temperature 97.8 F Pulse Rate 68 69 69 Respiratory Rate 14 Blood Pressure 91/55 L Pulse Oximetry 99 02/28/18 14:28 02/28/18 16:00 02/28/18 16:21 Temperature 98.2 F Pulse Rate 72 67 Respiratory Rate 12 21 14 Blood Pressure 101/60 Pulse Oximetry 93 L 97 95 02/28/18 18:00 02/28/18 20:00 02/28/18 20:30 Temperature 98.5 F Pulse Rate 71 66 68 Respiratory Rate 36 H 28 H Blood Pressure 92/56 L 94/60 L Pulse Oximetry 99 99 02/28/18 21:00 02/28/18 21:05 02/28/18 21:30 Temperature Pulse Rate 75 75 73 Respiratory Rate 43 H 15 27 H Blood Pressure 104/59 L 103/60 Pulse Oximetry 99 97 96 02/28/18 22:00 02/28/18 22:30 02/28/18 23:00 Temperature Pulse Rate 70 69 69 Respiratory Rate 40 H 44 H 21 Blood Pressure 98/61 L 97/60 L 93/56 L Pulse Oximetry 97 98 97 02/28/18 23:30 03/01/18 00:00 03/01/18 00:30 Temperature 98.6 F Pulse Rate 75 77 68 Respiratory Rate 21 41 H 46 H Blood Pressure 99/60 L 123/66 99/63 L Pulse Oximetry 99 99 99 03/01/18 00:32 03/01/18 01:00 03/01/18 01:30 Temperature Pulse Rate 74 68 Respiratory Rate 13 29 H 42 H Blood Pressure 103/63 95/58 L Pulse Oximetry 35 L 99 99 03/01/18 02:00 03/01/18 02:30 03/01/18 03:00 Temperature Pulse Rate 68 74 68 Respiratory Rate 33 H 29 H 35 H Blood Pressure 99/63 L 105/67 99/61 L Pulse Oximetry 100 100 99 03/01/18 03:30 03/01/18 04:00 03/01/18 04:20 Temperature 98.3 F Pulse Rate 67 73 67 Respiratory Rate 16 23 12 Blood Pressure 96/59 L 111/70 Pulse Oximetry 99 100 99 03/01/18 04:30 03/01/18 05:00 03/01/18 05:30 Temperature Pulse Rate 67 71 71 Respiratory Rate 23 38 H 26 H Blood Pressure 102/65 105/63 102/62 Pulse Oximetry 99 99 100 03/01/18 06:00 03/01/18 06:30 03/01/18 07:00 Temperature Pulse Rate 73 67 68 Respiratory Rate 40 H 45 H 50 H Blood Pressure 107/67 104/63 101/62 Pulse Oximetry 100 98 98 03/01/18 07:30 03/01/18 08:00 03/01/18 08:18 Temperature 97.8 F Pulse Rate 68 68 75 Respiratory Rate 51 H 17 14 Blood Pressure 100/62 103/62 Pulse Oximetry 97 98 100 Intake & Output 02/28/18 03/01/18 03/01/18 18:59 06:59 18:59 Intake Total 1550 / 1550 1000 / 1000 Output Total 1075 / 1075 850 / 850 Balance 475 / 475 150 / 150 Weight 61.5 kg Intake: IV 1350 / 1350 700 / 700 Versed Inj 50 mg In 50 ml @ 2 50 / 50 50 / 50 MG/HR 2 mls/hr IV.CONT TITRATE PRN Rx#:[id number] Sodium Chloride 23.4% Inj 38.5 1000 / 1000 MEQ In Sterile Water for Inj 1, 000 ML @ 75 mls/hr IV.CONT . [id number] [facility] Rx#:[id number] Azactam Inj 1,000 MG In NS Inj 200 / 200 100 ML @ 200 mls/hr IV.SIG Q6H [facility] Rx#:[id number] Maxipime Inj 2,000 MG In NS Inj 100 / 100 100 ML @ 200 mls/hr IV.SIG Q24H [facility] Rx#:[id number] Ancef Inj 1,000 MG In NS Inj 100 / 100 100 ML @ 200 mls/hr IV.SIG Q12H [facility] Rx#:[id number] fentaNYL 10 mcg/mL Premix Drip 250 / 250 2,500 mcg In 250 ml @ 50 MCG/HR 5 mls/hr IV.SIG TITRATE PRN Rx #:[id number] Flagyl 500 MG Inj 100 ML @ 100 200 / 200 100 / 100 mls/hr IV.SIG Q8H [facility] Rx#: [id number] Tube Feeding 0 / 0 Water Bolus Amount 200 / 200 300 / 300 Output: Stool 100 / 100 0 / 0 Urine Amount (Catheter) 975 / 975 850 / 850 Indwelling Urethral Catheter 975 / 975 850 / 850 Other: Date of Last Bowel Movement 02/28/18 02/27/18 - Urinary Catheter Management Condom Cath placed during this visit: no Indwelling Urethral Catheter Cath placed during this visit: no Indwelling Temp Sensing Catheter Cath placed during this visit: no <Evangelist Ashley - Last Filed: 03/01/18 09:14> Assessment and Plan - Assessment (1) Acute kidney injury Code(s): N17.9 - Acute kidney failure, unspecified Status: Acute Plan: Baseline 0.9-1.2. SHARON most likely due to overdiuresis and dehydration. Awaiting repeat labs from today. Continue 07/21 NS @ 75 cc/hr for now, monitor sodium level. Repeat labs daily. Avoid nephrotoxic agents. His prognosis is very poor. He is severely malnourished and at risk for complications. Monitor urine output and renal function. No immediate need for dialysis. Continue to monitor. (2) Hyperkalemia Code(s): E87.5 - Hyperkalemia Status: Acute Plan: Improved. He was on potassium replacement and taking Spironolactone. All of these have been stopped. (3) Hyperosmolality and hypernatremia Code(s): E87.0 - Hyperosmolality and hypernatremia Status: Acute Plan: Had improved. Iatrogenic, due to loop diuretic, excessive sensible and insensible water losses. On Free water flushes with tube feeding and hypotonic fluids. Avoid hyperglycemia. (4) Sepsis Code(s): A41.9 - Sepsis, unspecified organism Status: Acute Plan: He is on PO Vancomycin for C.diff. On IV Vancomycin and Flagyl. Carefully monitor Vancomycin dosing and levels. 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 (6) Atrial fibrillation Code(s): I48.91 - Unspecified atrial fibrillation Status: Acute Plan: Rate control measures, but avoid Digoxin. 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 Agree with above assessment and plan. Renal function has improved. Serum Na is pending. <Evangelist Ashley - Last Filed: 03/01/18 09:14>
[2018-02-28] MEDS: Beneprotein Powder Packet G-TUBE SCH ×3 (11:00→17:36)
[2018-02-28] MEDS: Ferrrous Sulfate 300 MG/5 ML UDC PO SCH (11:00)
[2018-02-28] MEDS: Ascorbic Acid 500 MG Tablet NG/OG SCH (11:00)
[2018-02-28] MEDS: Senna/Docusate Sodium 8.6/50 MG Tablet PO SCH ×2 (11:00→20:24)
[2018-02-28] MEDS: Amiodarone 200 MG Tablet G-TUBE SCH ×2 (11:01→20:25)
[2018-02-28] MEDS: Pregabalin 75 MG Capsule PO SCH ×2 (11:01→20:24)
[2018-02-28] MEDS: MethylPREDNISolone Sod Succinate Inj 40 MG/ML Vial IV.PUSH SCH (11:36)
[2018-02-28] MEDS: Hypromellose 0.3% Opth Gel 10 GM Bottle EACH EYE SCH ×2 (11:37→20:26)
[2018-02-28] MEDS ORDERED: Lidocaine PF 1% Inj 5 ML Syringe INFILTRATN ONE (12:00)
[2018-02-28] MEDS ORDERED: Phenylephrine/NS 1000 MCG/10ML Syringe IV.PUSH ONE (12:00)
[2018-02-28] MEDS ORDERED: Propofol Inj 500 MG/50 ML Vial ONE (12:22)
--- NOTE | 2018-02-28 12:35 | P.PNPAL ---
Reason for Visit Reason for visit: a. To assist with evaluation and management of symptoms including: pain, dyspnea, weakness b. To assist medical decision maker(s) with: better understanding of current medical conditions; weighing benefits/burdens of medical treatment options; making medical treatment decisions. Subjective Subjective/Interval History: Pt in bed, intubated on vent. PEG tube to be placed shortly. Per case mgmt pt referred to [facility]. Still with copious loose stool. Now with fungiuria. WBC trending down. CPAP trials 02/26 - pt failed d/t apnea. Hgb dropped to 7 today. PLT trending down, dropped to 57. Nephrology following now for worsening renal function. Appears comfortable. No sign agitation. Fentanyl 10 ml/hr. Family/Friend Interactions: called , no answer, left message with palliative care contact info. Objective Vital Signs: Vital Signs 02/27/18 14:00 02/27/18 15:26 02/27/18 15:27 Temperature Pulse Rate 66 72 Respiratory Rate 11 L 10 L Blood Pressure Pulse Oximetry 02/27/18 16:00 02/27/18 18:00 02/27/18 20:00 Temperature 98.3 F 98.5 F Pulse Rate 71 68 74 Respiratory Rate 20 17 Blood Pressure 104/61 101/62 Pulse Oximetry 99 100 02/27/18 21:57 02/27/18 22:00 02/28/18 00:00 Temperature 98.5 F Pulse Rate 80 77 76 Respiratory Rate 15 17 Blood Pressure 101/62 Pulse Oximetry 95 100 02/28/18 00:16 02/28/18 02:00 02/28/18 04:00 Temperature 98.2 F Pulse Rate 73 71 Respiratory Rate 14 19 Blood Pressure 90/57 L Pulse Oximetry 90 L 100 02/28/18 04:24 02/28/18 06:00 02/28/18 08:00 Temperature 98.7 F Pulse Rate 74 76 69 Respiratory Rate 13 24 Blood Pressure 88/53 L Pulse Oximetry 100 100 02/28/18 08:43 02/28/18 10:00 Temperature Pulse Rate 75 68 Respiratory Rate 14 Blood Pressure Pulse Oximetry 100 Intake & Output 02/27/18 02/28/18 02/28/18 18:59 06:59 18:59 Intake Total 2692.125 / 2692.125 2402 / 2402 100 / 100 Output Total 850 / 850 1200 / 1200 Balance 1842.125 / 9238.454 1912 / 1202 100 / 100 Intake: IV 1567.125 / 8876.377 7242 / 1750 100 / 100 Heparin/D5W 25,000 U/250 mL 25, 100 / 100 000 unit In 250 ml @ 800 UNITS/ HR 8 mls/hr IV.CONT TITRATE PRN Rx#:[id number] Versed Inj 50 mg In 50 ml @ 2 100 / 100 MG/HR 2 mls/hr IV.CONT TITRATE PRN Rx#:[id number] Sodium Chloride 23.4% Inj 38.5 1009.625 / 4026.214 0115 / 1000 MEQ In Sterile Water for Inj 1, 000 ML @ 75 mls/hr IV.CONT . [id number] [facility] Rx#:[id number] Maxipime Inj 2,000 MG In NS Inj 100 / 100 100 ML @ 200 mls/hr IV.SIG Q24H [facility] Rx#:[id number] Diflucan 200 mg Premix Bag 100 200 / 200 ML @ 100 mls/hr IV.SIG Q24H [facility] Rx#:[id number] Vancomycin Inj 750 MG In NS Inj 257.5 / 257.5 250 ML @ 250 mls/hr IV.SIG ONCE ONE Rx#:[id number] fentaNYL 10 mcg/mL Premix Drip 250 / 250 2,500 mcg In 250 ml @ 50 MCG/HR 5 mls/hr IV.SIG TITRATE PRN Rx #:[id number] Flagyl 500 MG Inj 100 ML @ 100 200 / 200 100 / 100 100 / 100 mls/hr IV.SIG Q8H [facility] Rx#: [id number] Tube Feeding 525 / 525 252 / 252 Water Bolus Amount 600 / 600 400 / 400 Output: Stool 300 / 300 100 / 100 Urine Amount (Catheter) 550 / 550 1100 / 1100 Indwelling Urethral Catheter 550 / 550 1100 / 1100 Other: Date of Last Bowel Movement 02/27/18 02/27/18 02/27/18 Physical Exam: CONSTITUTIONAL/GENERAL: ill appearing and cachectic male SKIN: Sallow. No jaundice, rashes, or lesions. No wounds seen anteriorly. Not diaphoretic. HEAD: Atraumatic. Normocephalic. + temporal wasting EYES: pupils constricted. No scleral icterus. Fundi not examined. ENT: Nose without bleeding or purulent drainage. dark spots CARDIOVASCULAR:RRR without murmurs, gallops, or rubs. + click. RESPIRATORY/CHEST: Symmetric, unlabored respirations. lung sounds diminished GASTROINTESTINAL: Abdomen soft, mildly distended, TTP. No hepato-splenomegaly, or palpable masses. Bowel sounds faint. +rectal bag with stool GENITOURINARY: Without palpable bladder distension. Cano catheter in place. MUSCULOSKELETAL: Extremities without clubbing, cyanosis. No mottling or clubbing. NEUROLOGICAL: sedated on vent Diagnostic Tests Laboratory: Laboratory Results - last 72 hr 02/25/18 02/25/18 02/25/18 13:20 13:20 13:20 WBC RBC Hgb Hct MCV MCH MCHC RDW Plt Count MPV Prelim Diff (Auto) Neut % (Auto) Lymph % (Auto) Kemper % (Auto) Eos % (Auto) Baso % (Auto) Neut # (Auto) Lymph # (Auto) Kemper # (Auto) Eos # (Auto) Baso # (Auto) WBC Differential Diff Scan Differential Comment Platelet Estimate Platelet Morphology Ovalocytes APTT Sodium Potassium Chloride Carbon Dioxide Anion Gap BUN Creatinine Estimated GFR POC Glucose Random Glucose Calcium Phosphorus Total Bilirubin AST ALT Alkaline Phosphatase Total Protein Albumin Urine Color Teresita Urine Clarity Cloudy H Urine pH 5.0 Ur Specific Ingalls 1.017 Urine Protein 100 H Urine Glucose (UA) 50 Urine Ketones Negative Urine Occult Blood Large H Urine Nitrate Negative Urine Bilirubin Negative Urine Urobilinogen Less than 2 Ur Leukocyte Esterase Large H Urine RBC 161 H Urine WBC Ur Squamous Epith Cells 1 Urine Bacteria Moderate H Urine Mucus Few H Urine Yeast Many H Micro UA Comment Cath-culture ind Urine Culture Comments Cath-cult indicated Ur Random Creatinine 58 Ur Random Sodium 32 Random Vancomycin 02/25/18 02/25/18 02/26/18 17:51 22:47 00:13 WBC RBC Hgb Hct MCV MCH MCHC RDW Plt Count MPV Prelim Diff (Auto) Neut % (Auto) Lymph % (Auto) Kemper % (Auto) Eos % (Auto) Baso % (Auto) Neut # (Auto) Lymph # (Auto) Kemper # (Auto) Eos # (Auto) Baso # (Auto) WBC Differential Diff Scan Differential Comment Platelet Estimate Platelet Morphology Ovalocytes APTT Sodium 152 H Potassium 5.4 H Chloride 123 H Carbon Dioxide 20.6 L Anion Gap 8 BUN 125 H Creatinine 3.73 H Estimated GFR 16 L POC Glucose 249 H 188 H Random Glucose 207 H Calcium 8.0 L Phosphorus Total Bilirubin AST ALT Alkaline Phosphatase Total Protein Albumin Urine Color Urine Clarity Urine pH Ur Specific Ingalls Urine Protein Urine Glucose (UA) Urine Ketones Urine Occult Blood Urine Nitrate Urine Bilirubin Urine Urobilinogen Ur Leukocyte Esterase Urine RBC Urine WBC Ur Squamous Epith Cells Urine Bacteria Urine Mucus Urine Yeast Micro UA Comment Urine Culture Comments Ur Random Creatinine Ur Random Sodium Random Vancomycin 02/26/18 02/26/18 02/26/18 06:07 06:10 06:10 WBC 11.3 H RBC 2.64 L Hgb 8.2 L Hct 25.4 L MCV 96.2 MCH 30.9 MCHC 32.1 RDW 20.2 H Plt Count 81 L D MPV 11.0 Prelim Diff (Auto) Slide review pending Neut % (Auto) 91.7 H Lymph % (Auto) 4.4 L Kemper % (Auto) 3.7 Eos % (Auto) 0.0 Baso % (Auto) 0.2 Neut # (Auto) 10.4 H Lymph # (Auto) 0.5 L Kemper # (Auto) 0.4 Eos # (Auto) 0.0 Baso # (Auto) 0.0 WBC Differential . Diff Scan Auto diff confirmed Differential Comment . Platelet Estimate Low L Platelet Morphology Enlarged H Ovalocytes APTT 70.9 H Sodium Potassium Chloride Carbon Dioxide Anion Gap BUN Creatinine Estimated GFR POC Glucose 128 H Random Glucose Calcium Phosphorus Total Bilirubin AST ALT Alkaline Phosphatase Total Protein Albumin Urine Color Urine Clarity Urine pH Ur Specific Ingalls Urine Protein Urine Glucose (UA) Urine Ketones Urine Occult Blood Urine Nitrate Urine Bilirubin Urine Urobilinogen Ur Leukocyte Esterase Urine RBC Urine WBC Ur Squamous Epith Cells Urine Bacteria Urine Mucus Urine Yeast Micro UA Comment Urine Culture Comments Ur Random Creatinine Ur Random Sodium Random Vancomycin 02/26/18 02/26/18 02/26/18 06:10 11:30 17:14 WBC RBC Hgb Hct MCV MCH MCHC RDW Plt Count MPV Prelim Diff (Auto) Neut % (Auto) Lymph % (Auto) Kemper % (Auto) Eos % (Auto) Baso % (Auto) Neut # (Auto) Lymph # (Auto) Kemper # (Auto) Eos # (Auto) Baso # (Auto) WBC Differential Diff Scan Differential Comment Platelet Estimate Platelet Morphology Ovalocytes APTT Sodium 154 H Potassium 5.0 Chloride 122 H Carbon Dioxide 21.0 Anion Gap 11 BUN 124 H Creatinine 3.57 H Estimated GFR 17 L POC Glucose 126 H 224 H Random Glucose 123 H Calcium 7.9 L Phosphorus Total Bilirubin 0.3 AST 23 ALT 6 L Alkaline Phosphatase 49 Total Protein 5.7 L D Albumin 2.4 L Urine Color Urine Clarity Urine pH Ur Specific Ing[place] Urine Protein Urine Glucose (UA) Urine Ketones Urine Occult Blood Urine Nitrate Urine Bilirubin Urine Urobilinogen Ur Leukocyte Esterase Urine RBC Urine WBC Ur Squamous Epith Cells Urine Bacteria Urine Mucus Urine Yeast Micro UA Comment Urine Culture Comments Ur Random Creatinine Ur Random Sodium Random Vancomycin 02/27/18 02/27/18 02/27/18 00:57 02:28 02:28 WBC 9.6 RBC 2.56 L Hgb 8.0 L Hct 25.0 L MCV 97.5 MCH 31.3 MCHC 32.1 RDW 20.0 H Plt Count MPV 11.1 H Prelim Diff (Auto) Slide review pending Neut % (Auto) 92.1 H Lymph % (Auto) 4.1 L Kemper % (Auto) 3.5 Eos % (Auto) 0.1 Baso % (Auto) 0.2 Neut # (Auto) 8.9 H Lymph # (Auto) 0.4 L Kemper # (Auto) 0.3 Eos # (Auto) 0.0 Baso # (Auto) 0.0 WBC Differential . Diff Scan Auto diff confirmed Differential Comment . Platelet Estimate Low L Platelet Morphology Enlarged H Ovalocytes 1+ H APTT Sodium 152 H Potassium 4.3 Chloride 120 H Carbon Dioxide 21.6 Anion Gap 10 BUN 119 H Creatinine 3.40 H Estimated GFR 18 L POC Glucose 184 H Random Glucose 163 H Calcium 7.9 L Phosphorus 5.4 H Total Bilirubin AST ALT Alkaline Phosphatase Total Protein Albumin 2.4 L Urine Color Urine Clarity Urine pH Ur Specific [place] Urine Protein Urine Glucose (UA) Urine Ketones Urine Occult Blood Urine Nitrate Urine Bilirubin Urine Urobilinogen Ur Leukocyte Esterase Urine RBC Urine WBC Ur Squamous Epith Cells Urine Bacteria Urine Mucus Urine Yeast Micro UA Comment Urine Culture Comments Ur Random Creatinine Ur Random Sodium Random Vancomycin 17.3 02/27/18 02/27/18 02/27/18 06:40 12:15 17:16 WBC RBC Hgb Hct MCV MCH MCHC RDW Plt Count MPV Prelim Diff (Auto) Neut % (Auto) Lymph % (Auto) Kemper % (Auto) Eos % (Auto) Baso % (Auto) Neut # (Auto) Lymph # (Auto) Kemper # (Auto) Eos # (Auto) Baso # (Auto) WBC Differential Diff Scan Differential Comment Platelet Estimate Platelet Morphology Ovalocytes APTT Sodium Potassium Chloride Carbon Dioxide Anion Gap BUN Creatinine Estimated GFR POC Glucose 191 H 130 H 172 H Random Glucose Calcium Phosphorus Total Bilirubin AST ALT Alkaline Phosphatase Total Protein Albumin Urine Color Urine Clarity Urine pH Ur Specific [place] Urine Protein Urine Glucose (UA) Urine Ketones Urine Occult Blood Urine Nitrate Urine Bilirubin Urine Urobilinogen Ur Leukocyte Esterase Urine RBC Urine WBC Ur Squamous Epith Cells Urine Bacteria Urine Mucus Urine Yeast Micro UA Comment Urine Culture Comments Ur Random Creatinine Ur Random Sodium Random Vancomycin 02/27/18 02/28/18 02/28/18 23:44 04:58 05:39 WBC 7.5 RBC 2.22 L Hgb 7.0 L Hct 21.1 L MCV 95.2 MCH 31.6 MCHC 33.2 RDW 19.7 H Plt Count 52 L D MPV 11.1 H Prelim Diff (Auto) Slide review pending Neut % (Auto) 91.0 H Lymph % (Auto) 5.0 L Kemper % (Auto) 3.4 Eos % (Auto) 0.5 Baso % (Auto) 0.1 Neut # (Auto) 6.8 Lymph # (Auto) 0.4 L Kemper # (Auto) 0.3 Eos # (Auto) 0.0 Baso # (Auto) 0.0 WBC Differential . Diff Scan Auto diff confirmed Differential Comment . Platelet Estimate Low L Platelet Morphology Normal Ovalocytes 1+ H APTT Sodium Potassium Chloride Carbon Dioxide Anion Gap BUN Creatinine Estimated GFR POC Glucose 193 H 139 H Random Glucose Calcium Phosphorus Total Bilirubin AST ALT Alkaline Phosphatase Total Protein Albumin Urine Color Urine Clarity Urine pH Ur Specific [place] Urine Protein Urine Glucose (UA) Urine Ketones Urine Occult Blood Urine Nitrate Urine Bilirubin Urine Urobilinogen Ur Leukocyte Esterase Urine RBC Urine WBC Ur Squamous Epith Cells Urine Bacteria Urine Mucus Urine Yeast Micro UA Comment Urine Culture Comments Ur Random Creatinine Ur Random Sodium Random Vancomycin 02/28/18 02/28/18 08:48 11:36 WBC RBC Hgb Hct MCV MCH MCHC RDW Plt Count MPV Prelim Diff (Auto) Neut % (Auto) Lymph % (Auto) Kemper % (Auto) Eos % (Auto) Baso % (Auto) Neut # (Auto) Lymph # (Auto) Kemper # (Auto) Eos # (Auto) Baso # (Auto) WBC Differential Diff Scan Differential Comment Platelet Estimate Platelet Morphology Ovalocytes APTT Sodium Potassium Chloride Carbon Dioxide Anion Gap BUN Creatinine Estimated GFR POC Glucose 103 87 Random Glucose Calcium Phosphorus Total Bilirubin AST ALT Alkaline Phosphatase Total Protein Albumin Urine Color Urine Clarity Urine pH Ur Specific [place] Urine Protein Urine Glucose (UA) Urine Ketones Urine Occult Blood Urine Nitrate Urine Bilirubin Urine Urobilinogen Ur Leukocyte Esterase Urine RBC Urine WBC Ur Squamous Epith Cells Urine Bacteria Urine Mucus Urine Yeast Micro UA Comment Urine Culture Comments Ur Random Creatinine Ur Random Sodium Random Vancomycin Result Diagrams: 02/28/18 04:58 02/27/18 02:28 Microbiology: Microbiology 02/27/18 02:28 Aerobic Blood Culture - Preliminary Blood - Peripheral No growth in 1 day Anaerobic Blood Culture - Preliminary No growth in 1 day 02/27/18 02:20 Aerobic Blood Culture - Preliminary Blood - Peripheral No growth in 1 day Anaerobic Blood Culture - Preliminary No growth in 1 day 02/25/18 13:20 Urine Culture - Final Catheterized Urine Kaylen tropicalis 02/24/18 22:26 Gram Stain - Final Sputum - Endotracheal Sputum Culture - Final Light growth normal respiratory ursula Imaging: ITS Impressions Abdomen/Bladder Ultrasound 02/05/18 00:00 CONCLUSION: 1. No evidence of hydronephrosis. 2. The echogenicity of the kidneys is equal to that of the liver which can be seen with medical renal disease. 3. Simple cyst in right kidney. 4. Suboptimal visualization of the left kidney. 5. Small amount of free fluid along the spleen. This could represent an adjacent pleural effusion. Head CT 02/15/18 12:23 CONCLUSION: 1. Negative CT Head non contrast. . Head MRI 02/16/18 08:28 CONCLUSION: 1. New focus of restricted diffusion high along the right cerebral vertex measuring 8 mm consistent with a new small focal acute infarction. 2. There is a new 5 mm area restricted diffusion high along the left cerebral vertex consistent with a new small focal acute infarction. 3. 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 This area is stable compared to the prior examination. 4. Stable bilateral cortical atrophy and mild chronic white matter changes. 5. Chronic bilateral mastoiditis. Abdomen X-Ray 02/17/18 00:00 CONCLUSION: Nonspecific bowel gas pattern. Chest CT 02/18/18 00:00 CONCLUSION: 1. Increasing basilar and dependent consolidation in both lungs most characteristic of pneumonia or aspiration. 2. Near complete resolution of previous small effusions. 3. Osteopenia with stable compression deformities in the spine. 4. Previous sternotomy with aortic valve replacement. 5. Right-sided central line, ET tube and NG tube in good position. Chest X-Ray 02/24/18 06:00 CONCLUSION: Stable chest x-ray with atelectasis at the right lung base and volume loss versus consolidation in the left lower lobe. Procedures: 02/05 left IJ placement 02/05 retrograde left heart cath, stent placement, IABP placement 02/05 intubated 02/19 extubated Assessment and Plan - Disease Oriented Problem List (1) Hypokalemia (2) Cardiogenic shock (3) CAD (coronary artery disease) (4) Ventricular fibrillation Pertinent Non-Medical Issues: Psychosocial: On disability. 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 Spiritual: Yazidi, non-orthodoxy. [employer] has visited, they also have restorationism public relations professional visiting. Legal: Pt not capacitated to make medical decisions. Unclear if he will regain capacity. Per [place] statutes decision making would fall to as proxy. Ethical issues impacting care: none identified Important Contacts: Maria Isabel Tolentino [phone] sister Yvonne Valdivia [phone] Prognosis: 62 yo male s/p aortic valve replacement 2012 who suffered significant NSTEMI, EF <20% on presentation, troponins up to 32. Echo also showed global hypokinesis. Not clear how much of heart failure was present prior to NSTEMI. s /p heart cath, LAD stenting complicated by vasospasm, placement and subsequent removal of IABP. 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 He has had several runs of v fib and v tach requiring chest compressions, shocks. He has underlying COPD and was having activity intolerance prior to this event. He was reintubated. Now with worsening kidney function. His prognosis for recovery is poor; chances of returning to baseline extremely poor. Unlikely he would tolerate rehab. He remains at high risk for continued complications including but not limited to recurrent arrhythmias, multi-organ injury; and at risk for further decline. He is hospice appropriate should goals be in line with comfort. Code Status: Full Code Plan: - LEGAL DECISON MAKER - Pt not capacitated to make medical decisions, unclear if he will regain this capacity. Per [place] statutes decision making would fall to as proxy. Family working together to make decisions - , wifes RN sister, and pt's sister. - CODE STATUS- full code - GOALS - verbalizes aggressive goals. She is optimistic feels God will heal her . - SYMPTOMS - * dyspnea - multifactorial - hx COPD, EF < 20%, class 4 heart failure. extubated 02/19, on 10L simple mask. reintubated 02/23. failed cpap trial 02/26 d/t apnea. PRN duonebs, scheduled duonebs * pain - multifactorial, lines, ET tube, catheters, hx chronic back pain 2/ "chronic fractures." sees pain mgmt, been on hydrocodone , reportedly same dosage and frequency for 6 years. on fentanyl 10ml/hr. per ccm. * debility/weakness - multifactorial. profoundly emaciated and ill appearing, per this is his usual appearance. reintubated, at risk for worsening debility. [facility]. for PEG tube placement today. cardiac function prob would not allow aggressive rehab. - d/w RN - Palliative care will continue to follow during hospital course as condition evolves, to assist patient/decision-maker with understanding of medical conditions, weighing benefits/burdens of treatment options, for clarification of goals of treatment. Additionally will assist with any symptoms of palliative concern Attestation Attestation: To help prompt me to consider important information that might be impacting today's encounter and assessment, information from prior notes written by myself or my colleagues may have been "brought forward" into today's note. My signature on this note, however, is an attestation that I personally performed the exam, history, and/or decision-making noted today, and, unless otherwise indicated, the interactions with patient, family, and staff as well as the review of records all occurred today. I also attest that the listed assessment and stated plan reflect my best clinical judgment today based on the combination of historical information, prior notes, and today's exam/ interactions. When time spent is documented, it refers only to time spent today by the signer, or if indicated, combined time spent today by collaborating physician/nurse practitioner.
--- NOTE | 2018-02-28 13:50 | P.PCN ---
Procedure: THANK YOU FOR THE REFERRAL Indication; dysphagia Procedure Performed; upper endoscopy with PEG tube After informing the patient about procedure and possible complications consent was signed. history and physical were updated. Patient was taken to the procedure room and placed in position. Time out was completed. Adequate sedation was performed by anesthesia provider. Upper Endoscopy, the scope was placed in the mouth advanced under video guide to the second portion of the duodenum, then the scope was withdrawal to the stomach and retro-flexion was performed, the area for the PEG tube was identified by illumination and indentation, sterilized with Betadine, injected with lidocaine, 20 Turkish PEG tube was placed with a pull technique without any immediate complication the scope was withdrawal to the esophagus then out of the mouth without any immediate complication after verification of the PEG tube placement Findings; Esophagus: Normal Stomach normal PEG tube was placed as above Duodenum normal Recommendations; 1- Supportive care 2-n.p.o. for 6 hours and may start PEG tube feeding
--- NOTE | 2018-02-28 15:22 | P.PNCC ---
Subjective Subjective Remarks/Hospital Course: 62-year-old male with past medical history of [place] mechanical aortic valve (09/21/12 Dr. Gonzalez), on chronic anticoagulation with warfarin, atrial fibrillation postop from AVR , COPD on 2.5 L home O2, stroke in 2015 resulting in left-sided sensory deficits and neuropathy, osteoporosis with chronic low back pain. He was recently admitted to [facility] from 01/23 through 01/31/18 for MSSA bacteremia. It is believed that the original source of infection was a wound on his right index finger when electric drill slipped and created a puncture wound. He was discharged with right upper extremity PICC line receiving cefazolin 2 g IV every 8 hours and gentamicin 210 mg IV daily. He states that home health administered antibiotics at 17:00 and shortly thereafter he began having chills and rigors and sought medical attention at [facility]. He had no rash. Upon arrival, he was hypotensive in the low 80s. He was given 2 L S bolus but remained hypotensive so was started on Levophed. He then developed heart rate in the 140s, reportedly atrial flutter so he was started on Amiodarone drip in [place] and converted to sinus rhythm. He was transfused 2 units PRBC due to Hgb 9.3. His stool was nonbloody nonmelena but was Hemoccult positive. He was given zosyn and vancomycin. Critical care medicine was then contacted and accepted patient for transfer to [facility]. He denies tenderness/redness/drainage at PICC site. Aside from mechanical aortic valve, he has no other hardware or indwelling devices. He denies headache, cough, dysuria. He has had a few loose stools at home, but stools have sometimes been formed. He denies chest pain, does report some SOB. EKG at [place] had marked inferolateral ischemic changes. Obtained EKG upon arrival to [facility] which is improved. SUBJ 02/05: Patient remains critical ill appearing, complaints of chest tightness but denies pain. Remains on 8 mcg/min of Levophed to maintain map about 65. However increasing shortness of breath. Chest x-ray shows increasing pulmonary edema. Troponin was 27.5 currently on IV heparin therapeutic. Cardiology consult is pending at this time. I will stop on maintenance fluids give 40 mg IV Lasix and IV albumin 25 g 1. Patient is very critical patient and updated at the bedside 02/06: to cathode builder last night for [facility] with LAD stent complicated by vasospasm of the LAD. IABP placed. patient emergently intubated for acute hypoxic respiratory failure secondary to cardiogenic shock and pulmonary edema. started on milrinone at 0.375 mcg/kg/min and levophed. bumex drip started. remains critically ill. 02/07: Remains critically ill remains on Levophed and milrinone. Currently diuresing well with Bumex drip. IABP in place management per cardiology-good waveform and augmentation. Chest x-ray shows adequate positioning of IABP, diffuse bilateral pulmonary edema 02/08: Remains critical but showing some signs of improvement. Diuresing very well on Bumex infusion. Remains on Levophed and milrinone. IABP one-to-one with good augmentation management per cardiology. Chest x-ray shows improving edema but with persistent bilateral effusions. Will initiate weaning trials if tolerated 02/09: Still remains on pressors, unable to wean Levophed below 2 mcg/min. Milrinone currently on 0.375 mcg/kg/min. IABP removed yesterday. On sedation hold patient wakes up but remains lethargic. Weakly squeezes hand. Urine output excellent on Bumex, 4 L output in 24 hours. Will attempt CPAP today 02/10: Multiple episodes of V. fib V. tach arrest yesterday morning. Successfully resuscitated. Yesterday night had two-minute V. fib arrest return of spontaneous circulation in sinus rhythm after DC cardioversion 1. Currently remains on milrinone and low-dose Levophed. I will try to wean off Levophed introduce low-dose beta-rasheed due to recurrent arrhythmia. Keep potassium more than 4 magnesium more than 2 02/11: Patient still critical and cardiogenic shock requiring Levophed and milrinone. Urine output improved with adding Diamox. Approximately 2 L urine output in 24 hours, creatinine remained stable. Oxygenation slightly improved FiO2 reduced to 70% now. Overall prognosis remains poor family wants to continue aggressive care 02/12: Remains critical but slight improvement in oxygenation. But continues to require Levophed and milrinone the low-dose. Urine output remains adequate. Chest x-ray shows interval improvement. Creatinine remains stable to slightly improved. Add IV albumin to improve blood pressure and to promote diuresis. 02/13 Patient remains intubated and sedated with Versed and fentanyl. Afebrile, off Levophed remains on Milrinone and Heparin drip. 02/14: Hypothermic overnight. Remains on milrinone and heparin drips. Tolerating tube feeds at 20 cc now. Positive BM. No changes neurologically 02/15 Patient remains sedated with Versed and Fentanyl drips, on Milrinone 0.5. 02/16 Patient remains intubated sedated with Versed and Fentanyl infusion. On Milrinone and Heparin drips. CT brain yesterday showed no acute findings. Afebrile. 02/17 Patient remains sedated and intubated. Afebrile, On Milrinone and Heparin drip. 02/18: Remains critical continues to require milrinone. Urine output adequate. Chest x-ray shows bilateral infiltrate effusion. CT chest to better define effusions and infiltrate. Increase Bumex to 1 mg every 8 hours. Patient is persistently weak, will attempt SBT unlikely to be successfully extubated at this time. Most likely will need tracheostomy if family desires aggressive care 02/19: Remains intubated sedated with Versed and fentanyl. Transition to Precedex to facilitate weaning trials. Patient responding slightly more to verbal command, appears to track even though not following commands. Creatinine slightly increased with increased diuresis. Chest x-ray shows improved pleural effusions. CT chest yesterday did not show significant effusion but basilar consolidation. 02/20 Patient was extubated yesterday on 10L simple mask, on Precdex, Heparin and Milrinone drips. Tmax 101.1 yesterday 02/21: Febrile. Currently on 5 L nasal cannula. Continues on heparin drip with 500 units an hour. Received bumetanide 1 mg 1 today. Positive BM 02/22: Remains on 5 L nasal cannula. Remains on heparin drip. No changes neurologically remains medically stable. SUBJECTIVE: 02/23: Intubated early this morning secondary to acute respiratory failure. Blood pressure marginal likely due to sedation. Ejection fraction less than 20% . Discussed with at bedside. She was to proceed with tracheostomy in PEG tube placement. We will plan for within the next few days. 02/24: Remains sedated, orally intubated on mechanical ventilation. 02/25: Remains sedated, orally intubated on mechanical ventilation. Worsening renal function noted. Check UA, urine sodium and creatinine. Ordered Kayexalate for hyperkalemia and nephrology consulted. 02/26: Sedated, arousable, orally intubated on mechanical ventilation. Will hold Plavix for planned tracheostomy and PEG tube placement. Remains on heparin for anticoagulation. 02/27: Drowsy, arousable, orally intubated on mechanical ventilation. Awaiting tracheostomy and PEG tube placement. 02/28: Drowsy, arousable, remains orally intubated on mechanical ventilation. PEG tube scheduled for today. Objective Vital Signs / I&O: Vital Signs 02/27/18 15:26 02/27/18 15:27 02/27/18 16:00 Temperature 98.3 F Pulse Rate 72 71 Respiratory Rate 11 L 10 L 20 Blood Pressure 104/61 Pulse Oximetry 99 02/27/18 18:00 02/27/18 20:00 02/27/18 21:57 Temperature 98.5 F Pulse Rate 68 74 80 Respiratory Rate 17 15 Blood Pressure 101/62 Pulse Oximetry 100 95 02/27/18 22:00 02/28/18 00:00 02/28/18 00:16 Temperature 98.5 F Pulse Rate 77 76 Respiratory Rate 17 14 Blood Pressure 101/62 Pulse Oximetry 100 90 L 02/28/18 02:00 02/28/18 04:00 02/28/18 04:24 Temperature 98.2 F Pulse Rate 73 71 74 Respiratory Rate 19 13 Blood Pressure 90/57 L Pulse Oximetry 100 100 02/28/18 06:00 02/28/18 08:00 02/28/18 08:43 Temperature 98.7 F Pulse Rate 76 69 75 Respiratory Rate 24 14 Blood Pressure 88/53 L Pulse Oximetry 100 100 02/28/18 10:00 02/28/18 12:00 02/28/18 14:00 Temperature 97.8 F Pulse Rate 68 69 69 Respiratory Rate 14 Blood Pressure 91/55 L Pulse Oximetry 99 02/28/18 14:28 Temperature Pulse Rate Respiratory Rate 12 Blood Pressure Pulse Oximetry 93 L Intake & Output 02/27/18 02/28/18 02/28/18 18:59 06:59 18:59 Intake Total 2692.125 / 2692.125 2402 / 2402 100 / 100 Output Total 850 / 850 1200 / 1200 Balance 1842.125 / 6383.384 1940 / 1202 100 / 100 Weight 60 kg Intake: IV 1567.125 / 4363.630 2266 / 1750 100 / 100 Heparin/D5W 25,000 U/250 mL 25, 100 / 100 000 unit In 250 ml @ 800 UNITS/ HR 8 mls/hr IV.CONT TITRATE PRN Rx#:[id number] Versed Inj 50 mg In 50 ml @ 2 100 / 100 MG/HR 2 mls/hr IV.CONT TITRATE PRN Rx#:[id number] Sodium Chloride 23.4% Inj 38.5 1009.625 / 5566.720 7302 / 1000 MEQ In Sterile Water for Inj 1, 000 ML @ 75 mls/hr IV.CONT . [id number] [facility] Rx#:[id number] Maxipime Inj 2,000 MG In NS Inj 100 / 100 100 ML @ 200 mls/hr IV.SIG Q24H [facility] Rx#:[id number] Diflucan 200 mg Premix Bag 100 200 / 200 ML @ 100 mls/hr IV.SIG Q24H [facility] Rx#:[id number] Vancomycin Inj 750 MG In NS Inj 257.5 / 257.5 250 ML @ 250 mls/hr IV.SIG ONCE ONE Rx#:[id number] fentaNYL 10 mcg/mL Premix Drip 250 / 250 2,500 mcg In 250 ml @ 50 MCG/HR 5 mls/hr IV.SIG TITRATE PRN Rx #:[id number] Flagyl 500 MG Inj 100 ML @ 100 200 / 200 100 / 100 100 / 100 mls/hr IV.SIG Q8H [facility] Rx#: [id number] Tube Feeding 525 / 525 252 / 252 Water Bolus Amount 600 / 600 400 / 400 Output: Stool 300 / 300 100 / 100 Urine Amount (Catheter) 550 / 550 1100 / 1100 Indwelling Urethral Catheter 550 / 550 1100 / 1100 Other: Date of Last Bowel Movement 02/27/18 02/27/18 02/27/18 Result Diagrams: 02/28/18 04:58 02/27/18 02:28 Objective Remarks: GENERAL: 62-year-old male lying in bed in NAD orotracheally intubated SKIN: cool and poorly perfused. HEAD: Atraumatic. Normocephalic. EYES: Pupils equal and round, 2 mm and reactive. No injection or drainage. ENT: No nasal bleeding or discharge. Orotracheally intubated. NG tube in right nares NECK: Trachea midline. Supple, no JVD, no adenopathy/thyromegaly. Left IJ is clean dry and intact CARDIOVASCULAR: RRR. S1, S2. No S4. No murmurs rubs or gallops. RESPIRATORY: Orally intubated on mechanical ventilation, b/L equal air entry. Bilateral rhonchorous breath sounds. GASTROINTESTINAL: Abdomen soft, non-tender, nondistended. no guarding. MUSCULOSKELETAL: Extremities with trace bilateral lower extremity edema NEUROLOGICAL: Sedated, arousable, orally intubated, no focal musculoskeletal or sensory deficits Assessment and Plan - Assessment and Plan Plan: NEURO/PSYCH: History of stroke in 2015 Neuropathy left upper and lower extremity Chronic low back pain Acetaminophen 650 every 6 hours as needed fever 02/15 CT brain: No acute findings. 02/15 EEG : Encephalopathy, no epileptiform activity MRI brain 02/16: New small focal acute infarction right cerebral vertex and also left cerebral vertex. Neuro has followed. Continue ASA 81 mg daily. Continue pregabalin 150 mg p.o. twice daily. Hold duloxetine 90 mg p.o. daily. RESP: Acute hypoxic respiratory failure COPD on 2.5 L home O2 currently on 5 L Prior tobacco abuse Bilateral pleural effusions PRVC 18/500/07/22/40 Albuterol/ipratropium aerosols every 4 hours with albuterol aerosols every 2 hours as needed for dyspnea methylprednisolone succinate 40mg IV daily [facility] CV: V. tach/V. fib arrest NSTEMI Cardiogenic shock Acute systolic heart failure Atrial fibrillation with RVR [place] mechanical aortic valve (09/21/12 Dr. Gonzalez) s/p Tricuspid annuloplasty Discontinued milrinone 0.25 mgc/kg/min 02/21 Monitor HR and BP keep MAP>65mmHg s/p cath And PCI -proximal LAD and large diagonal 90% stenosis, 2 BMS stent 02/05, mid LAD vasospasm post PCI Continue aspirin 81 mg daily, Hold clopidogrel starting 02/26 for trach/ PEG, amiodarone 400mg TID, carvedilol 3.125mg BID Bumetanide 1mg IV q8h, reduce to 1 mg IV q24. discontinued today 02/21. Stop Spironolactone in v/o hyperkalemia on 02/25 Heparin drip. PTT therapeutic. Continue atorvastatin 40 mg nightly. Off IABP [place] 01/23/18no vegetation. Normal aortic mechanical valve with trivial aortic insufficiency. Tricuspid annuloplasty. Mild to moderate LV generalized hypokinesis Echo from 02/05: EF <20%, diffuse hypokinesis, bioprosthetic valve [employer] Officer is Romana Bartlett GI: Moderate protein calorie malnutrition with hypoalbuminemia Speech eval, diet per speech, if fails will restart tube feeds-Jevity 1.5 currently at 15 cc an hour. Goal 50 cc an hour Lansoprazole for stress ulcer prophylactic Had normal EGD on 10/21/17 FEN/RENAL: BPH Acute kidney injury-worsening Hypopotassemia Hypernatremia Cano due to aggressive diuresis. close monitoring of uop Monitor renal function, I/O's, Renal ultrasound to evaluate for evidence of obstruction -did not show any obstruction Discontinued bumetanide 1mg IV daily , spironolactone 25 mg twice daily stopped on 02/25 due to hyperkalemia and worsening renal function.. Hold tamsulosin 0.4 mg daily for now Nephrology consult requested for SHARON with worsening BUN/creatinine. 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 difficile colitis PICC removed Continue IV cefepime. Discontinue IV vancomycin and gentamicin 02/20 C.diff tx: po vanco + IV flagyl 02/11/18 Infectious disease following 02/18 Sputum: Pseudomonas 02/14 Sputum: Pseudomonas 02/11 Sputum cx: Pseudomonas, Kleb pneumonia BC 02/11, 02/06: NGTD HEME: Chronic normocytic anemia Iron deficiency Leukocytosis Continue ferrous sulfate 300 milligrams liquid daily. Received 2 units packed red cells in [place] ER due to anemia and shock. Monitor CBC ENDO: SSI to maintain euglycemia PROPH: Heparin drip. Protonix for stress ulcer prophylaxis ACCESS: Left IJ central line placed 02/05/18. Palliative care is following Level [address] Dr[address] uQintana discussed with at bedside on 02/23. Request continued aggressive care with tracheostomy and PEG tube placement.
[2018-02-28] MEDS: Sodium Chloride 23.4% Inj 38.5 MEQ in Water for Inj, Sterile 1,000 ML IV.CONT SCH (17:37)
--- NOTE | 2018-02-28 18:33 | P.PNID ---
Subjective Remarks: remains on vent not doing well Cretinine slightly down to 3.57 low grasde fever Antibiotics: cefepime oral vanco iv flagyl Allergies/Adverse Reactions: Allergies No Known Allergies Allergy (Verified 02/04/18 18:10) Objective Vital Signs 02/27/18 20:00 02/27/18 21:57 02/27/18 22:00 Temperature 98.5 F Pulse Rate 74 80 77 Respiratory Rate 17 15 Blood Pressure 101/62 Pulse Oximetry 100 95 02/28/18 00:00 02/28/18 00:16 02/28/18 02:00 Temperature 98.5 F Pulse Rate 76 73 Respiratory Rate 17 14 Blood Pressure 101/62 Pulse Oximetry 100 90 L 02/28/18 04:00 02/28/18 04:24 02/28/18 06:00 Temperature 98.2 F Pulse Rate 71 74 76 Respiratory Rate 19 13 Blood Pressure 90/57 L Pulse Oximetry 100 100 02/28/18 08:00 02/28/18 08:43 02/28/18 10:00 Temperature 98.7 F Pulse Rate 69 75 68 Respiratory Rate 24 14 Blood Pressure 88/53 L Pulse Oximetry 100 100 02/28/18 12:00 02/28/18 14:00 02/28/18 14:28 Temperature 97.8 F Pulse Rate 69 69 Respiratory Rate 14 12 Blood Pressure 91/55 L Pulse Oximetry 99 93 L 02/28/18 16:00 02/28/18 16:21 02/28/18 18:00 Temperature Pulse Rate 67 67 71 Respiratory Rate 14 Blood Pressure Pulse Oximetry 95 Intake & Output 02/27/18 02/28/18 02/28/18 18:59 06:59 18:59 Intake Total 2692.125 / 2692.125 2402 / 2402 1550 / 1550 Output Total 850 / 850 1200 / 1200 975 / 975 Balance 1842.125 / 7515.583 2463 / 1202 575 / 575 Weight 60 kg Intake: IV 1567.125 / 6154.321 0549 / 1750 1350 / 1350 Heparin/D5W 25,000 U/250 mL 25, 100 / 100 000 unit In 250 ml @ 800 UNITS/ HR 8 mls/hr IV.CONT TITRATE PRN Rx#:[id number] Versed Inj 50 mg In 50 ml @ 2 100 / 100 50 / 50 MG/HR 2 mls/hr IV.CONT TITRATE PRN Rx#:[id number] Sodium Chloride 23.4% Inj 38.5 1009.625 / 1050.789 2484 / 1000 1000 / 1000 MEQ In Sterile Water for Inj 1, 000 ML @ 75 mls/hr IV.CONT . [id number] [facility] Rx#:[id number] Maxipime Inj 2,000 MG In NS Inj 100 / 100 100 / 100 100 ML @ 200 mls/hr IV.SIG Q24H [facility] Rx#:[id number] Diflucan 200 mg Premix Bag 100 200 / 200 ML @ 100 mls/hr IV.SIG Q24H [facility] Rx#:[id number] Vancomycin Inj 750 MG In NS Inj 257.5 / 257.5 250 ML @ 250 mls/hr IV.SIG ONCE ONE Rx#:[id number] fentaNYL 10 mcg/mL Premix Drip 250 / 250 2,500 mcg In 250 ml @ 50 MCG/HR 5 mls/hr IV.SIG TITRATE PRN Rx #:[id number] Flagyl 500 MG Inj 100 ML @ 100 200 / 200 100 / 100 200 / 200 mls/hr IV.SIG Q8H [facility] Rx#: [id number] Tube Feeding 525 / 525 252 / 252 Water Bolus Amount 600 / 600 400 / 400 200 / 200 Output: Stool 300 / 300 100 / 100 Urine Amount (Catheter) 550 / 550 1100 / 1100 975 / 975 Indwelling Urethral Catheter 550 / 550 1100 / 1100 975 / 975 Other: Date of Last Bowel Movement 02/27/18 02/27/18 02/27/18 02/27/18 02:28 Blood - Peripheral Aerobic Blood Culture - Preliminary No growth in 1 day 02/27/18 02:28 Blood - Peripheral Anaerobic Blood Culture - Preliminary No growth in 1 day 02/27/18 02:20 Blood - Peripheral Aerobic Blood Culture - Preliminary No growth in 1 day 02/27/18 02:20 Blood - Peripheral Anaerobic Blood Culture - Preliminary No growth in 1 day 02/25/18 13:20 Catheterized Urine Urine Culture - Final Kaylen tropicalis 02/24/18 22:26 Sputum - Endotracheal Gram Stain - Final 02/24/18 22:26 Sputum - Endotracheal Sputum Culture - Final Light growth normal respiratory ursula Lab - Hematology Results 02/27/18 02/28/18 02:28 04:58 WBC 9.6 7.5 RBC 2.56 L 2.22 L Hgb 8.0 L 7.0 L Hct 25.0 L 21.1 L MCV 97.5 95.2 MCH 31.3 31.6 MCHC 32.1 33.2 RDW 20.0 H 19.7 H Plt Count 52 L D MPV 11.1 H 11.1 H Prelim Diff (Auto) Slide review pending Slide review pending Neut % (Auto) 92.1 H 91.0 H Lymph % (Auto) 4.1 L 5.0 L [place] % (Auto) 3.5 3.4 Eos % (Auto) 0.1 0.5 Baso % (Auto) 0.2 0.1 Neut # (Auto) 8.9 H 6.8 Lymph # (Auto) 0.4 L 0.4 L [place] # (Auto) 0.3 0.3 Eos # (Auto) 0.0 0.0 Baso # (Auto) 0.0 0.0 WBC Differential . . Diff Scan Auto diff confirmed Auto diff confirmed Differential Comment . . Platelet Estimate Low L Low L Platelet Morphology Enlarged H Normal Ovalocytes 1+ H 1+ H Lab - Chemistry Results 02/27/18 02/27/18 02/27/18 00:57 02:28 06:40 Sodium 152 H Potassium 4.3 Chloride 120 H Carbon Dioxide 21.6 Anion Gap 10 BUN 119 H Creatinine 3.40 H Estimated GFR 18 L POC Glucose 184 H 191 H Random Glucose 163 H Calcium 7.9 L Phosphorus 5.4 H Albumin 2.4 L 02/27/18 02/27/18 02/27/18 12:15 17:16 23:44 Sodium Potassium Chloride Carbon Dioxide Anion Gap BUN Creatinine Estimated GFR POC Glucose 130 H 172 H 193 H Random Glucose Calcium Phosphorus Albumin 02/28/18 02/28/18 02/28/18 05:39 08:48 11:36 Sodium Potassium Chloride Carbon Dioxide Anion Gap BUN Creatinine Estimated GFR POC Glucose 139 H 103 87 Random Glucose Calcium Phosphorus Albumin 02/28/18 17:40 Sodium Potassium Chloride Carbon Dioxide Anion Gap BUN Creatinine Estimated GFR POC Glucose 110 Random Glucose Calcium Phosphorus Albumin Imaging: ITS Impressions Abdomen/Bladder Ultrasound 02/05/18 00:00 CONCLUSION: 1. No evidence of hydronephrosis. 2. The echogenicity of the kidneys is equal to that of the liver which can be seen with medical renal disease. 3. Simple cyst in right kidney. 4. Suboptimal visualization of the left kidney. 5. Small amount of free fluid along the spleen. This could represent an adjacent pleural effusion. Head CT 02/15/18 12:23 CONCLUSION: 1. Negative CT Head non contrast. . Head MRI 02/16/18 08:28 CONCLUSION: 1. New focus of restricted diffusion high along the right cerebral vertex measuring 8 mm consistent with a new small focal acute infarction. 2. There is a new 5 mm area restricted diffusion high along the left cerebral vertex consistent with a new small focal acute infarction. 3. 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 This area is stable compared to the prior examination. 4. Stable bilateral cortical atrophy and mild chronic white matter changes. 5. Chronic bilateral mastoiditis. Abdomen X-Ray 02/17/18 00:00 CONCLUSION: Nonspecific bowel gas pattern. Chest CT 02/18/18 00:00 CONCLUSION: 1. Increasing basilar and dependent consolidation in both lungs most characteristic of pneumonia or aspiration. 2. Near complete resolution of previous small effusions. 3. Osteopenia with stable compression deformities in the spine. 4. Previous sternotomy with aortic valve replacement. 5. Right-sided central line, ET tube and NG tube in good position. Chest X-Ray 02/24/18 06:00 CONCLUSION: Stable chest x-ray with atelectasis at the right lung base and volume loss versus consolidation in the left lower lobe. Physical Exam: GENERAL: Intubated. On vent cachectic SKIN: Warm and dry. HEAD: Atraumatic. Normocephalic. EYES: Pupils equal and round. No scleral icterus. No injection or drainage. ENT: No nasal bleeding or discharge. Mucous membranes pale NECK: Trachea midline. No JVD. CARDIOVASCULAR: Regular rate and rhythm. + diastolic blowing murmur on aortic valve point 1-2/6 today RESPIRATORY: No accessory muscle use. b/l rales to auscultation. Breath sounds equal bilaterally. GASTROINTESTINAL: Abdomen soft, tight, distended and tender . Hepatic and splenic margins not palpable. liquid brown stool in the dignishield bag : roberson in place with good amount of urine MUSCULOSKELETAL: Extremities without clubbing, cyanosis, or edema. No obvious deformities. warmt o cool to touch feet NEUROLOGICAL: Obtunded, unresponsive PSYCHIATRIC:unable to assess Assessment and Plan - Plan Sepsis C.diff ? VAP ; PSAE, KLEb - new infiltrates and difficulty weaning - CT and CXR look worse, though resp status improved with Previous MSSA sepsis with presumed PVE of aortic valve prosthesis, on treatment - tx included vanco+ gent w/o rifampin Acute renal insufficiency, improving slowly GFR CHF EF < 20 % sp [place] troponin peaked @ 32 cont vanco + gent as a part of PVE Rx will not add rifampin while on amio 2/2 interaction with amiodarone Rifampin can be added if amiodarone is discontinued ccont cefepime and complete 7-14 days of PNA treatment Worsening leukocytosis, C.diff is likely the source Ileus New stroke worsening renal status: improved after vanco and gent stopped / new sepsis? Fungiuria change cefepime, to azactam start ancef dc IV vanco cont C.diff tx: po vanco cont IV flagyl rechk C.diff rechk blood clx start [id number]
[2018-02-28] MEDS: fentaNYL 10 mcg/mL Premix Drip 2,500 MCG/250 ML BAG IV.SIG PRN (23:53)
[2018-03-01] MEDS: Insulin NovoLOG Aspart Correctional Sugar Inj SQ SCH ×4 (00:01→17:27)
[2018-03-01] MEDS: Oral Hygiene Kit OROPHARYNG SCH ×4 (05:18→23:42)
[2018-03-01] MEDS: Sodium Chloride 23.4% Inj 38.5 MEQ in Water for Inj, Sterile 1,000 ML IV.CONT SCH ×2 (05:54→17:26)
[2018-03-01] MEDS: Midazolam 50 MG/50 ML Inj 50 MG/50 ML BAG IV.CONT PRN (06:03)
[2018-03-01 07:53] LABS: Vancomycin,Random 17.9 Comment
--- NOTE | 2018-03-01 08:19 | P.PNGI ---
Subjective Interval history: Pt remains sedated with Fentanyl and Versed, orally intubated. PEG clamped, site covered with clean and dry gauze, removed to examine area around PEG bumper , no active drainage or redness. Physical Exam Vital signs: Vital Signs 02/28/18 08:43 02/28/18 10:00 02/28/18 12:00 Temperature 97.8 F Pulse Rate 75 68 69 Respiratory Rate 14 14 Blood Pressure 91/55 L Pulse Oximetry 100 99 02/28/18 14:00 02/28/18 14:28 02/28/18 16:00 Temperature 98.2 F Pulse Rate 69 72 Respiratory Rate 12 21 Blood Pressure 101/60 Pulse Oximetry 93 L 97 02/28/18 16:21 02/28/18 18:00 02/28/18 20:00 Temperature 98.5 F Pulse Rate 67 71 66 Respiratory Rate 14 20 Blood Pressure 92/56 L Pulse Oximetry 95 99 02/28/18 21:05 02/28/18 22:00 03/01/18 00:00 Temperature 98.6 F Pulse Rate 75 75 77 Respiratory Rate 15 21 Blood Pressure 123/66 Pulse Oximetry 97 99 03/01/18 00:32 03/01/18 02:00 03/01/18 04:00 Temperature 98.3 F Pulse Rate 68 73 Respiratory Rate 13 23 Blood Pressure 111/70 Pulse Oximetry 35 L 100 03/01/18 04:20 03/01/18 06:00 Temperature Pulse Rate 67 73 Respiratory Rate 12 Blood Pressure Pulse Oximetry 99 Intake & Output 02/28/18 03/01/18 03/01/18 18:59 06:59 18:59 Intake Total 1550 / 1550 1000 / 1000 Output Total 1075 / 1075 850 / 850 Balance 475 / 475 150 / 150 Weight 61.5 kg Intake: IV 1350 / 1350 700 / 700 Versed Inj 50 mg In 50 ml @ 2 50 / 50 50 / 50 MG/HR 2 mls/hr IV.CONT TITRATE PRN Rx#:[id number] Sodium Chloride 23.4% Inj 38.5 1000 / 1000 MEQ In Sterile Water for Inj 1, 000 ML @ 75 mls/hr IV.CONT . [id number] [facility] Rx#:[id number] Azactam Inj 1,000 MG In NS Inj 200 / 200 100 ML @ 200 mls/hr IV.SIG Q6H [facility] Rx#:[id number] Maxipime Inj 2,000 MG In NS Inj 100 / 100 100 ML @ 200 mls/hr IV.SIG Q24H [facility] Rx#:[id number] Ancef Inj 1,000 MG In NS Inj 100 / 100 100 ML @ 200 mls/hr IV.SIG Q12H [facility] Rx#:[id number] fentaNYL 10 mcg/mL Premix Drip 250 / 250 2,500 mcg In 250 ml @ 50 MCG/HR 5 mls/hr IV.SIG TITRATE PRN Rx #:[id number] Flagyl 500 MG Inj 100 ML @ 100 200 / 200 100 / 100 mls/hr IV.SIG Q8H [facility] Rx#: [id number] Tube Feeding 0 / 0 Water Bolus Amount 200 / 200 300 / 300 Output: Stool 100 / 100 0 / 0 Urine Amount (Catheter) 975 / 975 850 / 850 Indwelling Urethral Catheter 975 / 975 850 / 850 Other: Date of Last Bowel Movement 02/28/18 02/27/18 - Constitutional no acute distress - Routine HEENT Exam Head: Present: normocephalic, atraumatic - Routine Respiratory Exam Present: patient mechanically ventilated - Routine Abdominal Exam Present: soft, normoactive bowel sounds. Absent: distended Comments: PEG clamped - Routine Skin Exam Present: dry, warm - Urinary Catheter Management Condom Cath placed during this visit: yes Reason for continuing: Acute urinary retention Insertion date: 02/24/18 Indwelling Urethral Catheter Cath placed during this visit: yes Reason for continuing: Acute urinary retention Insertion date: 02/24/18 Indwelling Temp Sensing Catheter Cath placed during this visit: yes, but has since been removed by the nurse Reason for continuing: Acute urinary retention Insertion date: 02/12/18 Insertion time: 20:15 Removal date: 02/20/18 Removal time: 16:00 Results - Labs CBC & Chem 7: 02/28/18 04:58 03/01/18 10:00 Laboratory Results - last 24 hr 02/28/18 02/28/18 02/28/18 04:58 08:48 11:36 WBC 7.5 RBC 2.22 L Hgb 7.0 L Hct 21.1 L MCV 95.2 MCH 31.6 MCHC 33.2 RDW 19.7 H Plt Count 52 L D MPV 11.1 H Prelim Diff (Auto) Slide review pending Neut % (Auto) 91.0 H Lymph % (Auto) 5.0 L Bibb % (Auto) 3.4 Eos % (Auto) 0.5 Baso % (Auto) 0.1 Neut # (Auto) 6.8 Lymph # (Auto) 0.4 L Bibb # (Auto) 0.3 Eos # (Auto) 0.0 Baso # (Auto) 0.0 WBC Differential . Diff Scan Auto diff confirmed Differential Comment . Platelet Estimate Low L Platelet Morphology Normal Ovalocytes 1+ H Creatinine Estimated GFR POC Glucose 103 87 Random Vancomycin 02/28/18 03/01/18 03/01/18 17:40 00:00 05:24 WBC RBC Hgb Hct MCV MCH MCHC RDW Plt Count MPV Prelim Diff (Auto) Neut % (Auto) Lymph % (Auto) Bibb % (Auto) Eos % (Auto) Baso % (Auto) Neut # (Auto) Lymph # (Auto) Bibb # (Auto) Eos # (Auto) Baso # (Auto) WBC Differential Diff Scan Differential Comment Platelet Estimate Platelet Morphology Ovalocytes Creatinine Estimated GFR POC Glucose 110 126 H 70 Random Vancomycin 03/01/18 03/01/18 06:08 06:28 WBC RBC Hgb Hct MCV MCH MCHC RDW Plt Count MPV Prelim Diff (Auto) Neut % (Auto) Lymph % (Auto) Bibb % (Auto) Eos % (Auto) Baso % (Auto) Neut # (Auto) Lymph # (Auto) Bibb # (Auto) Eos # (Auto) Baso # (Auto) WBC Differential Diff Scan Differential Comment Platelet Estimate Platelet Morphology Ovalocytes Creatinine 2.61 H Estimated GFR 25 L POC Glucose 168 H Random Vancomycin 17.9 Microbiology 02/27/18 02:28 Blood - Peripheral Aerobic Blood Culture - Preliminary No growth in 1 day 02/27/18 02:28 Blood - Peripheral Anaerobic Blood Culture - Preliminary No growth in 1 day 02/27/18 02:20 Blood - Peripheral Aerobic Blood Culture - Preliminary No growth in 1 day 02/27/18 02:20 Blood - Peripheral Anaerobic Blood Culture - Preliminary No growth in 1 day Assessment and Plan - Plan Assessment: - PEG tube consult- Admitted on February 04 for evaluation of chills, he developed atrial flutter with RVR and was admitted to ICU for management of this and septic shock. Pt had a V fib arrest on February 09, ROSC was achieved. Pt has been extubated since this arrest but was unable to sustain this and was therefore reintubated on 02/23. Currently patient is receiving nutrition through NG tube, nutrition recommends Jevity 1.5 at a goal rate of 50 mL/hr. Of note, pt underwent cardiac cath with stenting x 2 and IABP placement on , was on Plavix, however this has been discontinued in anticipation of pt getting a tracheostomy and PEG tube. Pt remains on Heparin gtt. - C. Diff- on Flagyl and oral Vanco EGD with PEG (02/28) --> Esophagus: Normal. Stomach: normal PEG tube was placed per procedure report. Duodenum: normal (03/01) S/P PEG placement yesterday. PEG clamped, site is clean and dry no active drainage or redness. Discussed with RN, OK to start TF and OK to resume Heparin gtt from a GI standpoint, according to [facility] Heparin and plavix on hold because of worsening thrombocytopenia. Plan: OK for heparin from GI standpoint, this is on hold according to [facility] for worsening thrombocytopenia Appreciate dietary recommendations- Jevity 1.5 @ 50 mL/hr Flush PEG q6hrs and after every feeding and medication administration Continue treatment for C. Diff Our service will sign off, please reconsult as needed Have pt follow up with GI after DC Pt has been seen and examined by myself and Dr. Valenzuela and this note is written on his behalf
[2018-03-01] MEDS: Hypromellose 0.3% Opth Gel 10 GM Bottle EACH EYE SCH ×2 (08:25→20:47)
[2018-03-01] MEDS: Pregabalin 75 MG Capsule PO SCH ×2 (08:29→20:46)
[2018-03-01] MEDS: Beneprotein Powder Packet G-TUBE SCH ×3 (08:29→17:26)
[2018-03-01] MEDS: Ferrrous Sulfate 300 MG/5 ML UDC PO SCH (08:29)
[2018-03-01] MEDS: Chlorhexidine 0.12% Oral Kit 15 ML UDC OROPHARYNG SCH ×2 (08:29→20:48)
[2018-03-01] MEDS: Ascorbic Acid 500 MG Tablet NG/OG SCH (08:29)
[2018-03-01] MEDS: MethylPREDNISolone Sod Succinate Inj 40 MG/ML Vial IV.PUSH SCH (08:30)
[2018-03-01] MEDS: Amiodarone 200 MG Tablet G-TUBE SCH ×2 (08:30→20:47)
[2018-03-01] MEDS: Senna/Docusate Sodium 8.6/50 MG Tablet PO SCH ×2 (08:30→20:47)
[2018-03-01 11:15] LABS: Calcium 7.9 mg/dL (8.5-10.1); Carbon Dioxide 20.4 meq/L (21.0-32.0); Potassium 4.4 meq/L (3.5-5.1)
--- NOTE | 2018-03-01 12:30 | P.PNCC ---
Subjective Subjective Remarks/Hospital Course: 62-year-old male with past medical history of [place] mechanical aortic valve (09/21/12 Dr. Gonzalez), on chronic anticoagulation with warfarin, atrial fibrillation postop from AVR , COPD on 2.5 L home O2, stroke in 2015 resulting in left-sided sensory deficits and neuropathy, osteoporosis with chronic low back pain. He was recently admitted to [facility] from 01/23 through 01/31/18 for MSSA bacteremia. It is believed that the original source of infection was a wound on his right index finger when electric drill slipped and created a puncture wound. He was discharged with right upper extremity PICC line receiving cefazolin 2 g IV every 8 hours and gentamicin 210 mg IV daily. He states that home health administered antibiotics at 17:00 and shortly thereafter he began having chills and rigors and sought medical attention at [facility]. He had no rash. Upon arrival, he was hypotensive in the low 80s. He was given 2 L S bolus but remained hypotensive so was started on Levophed. He then developed heart rate in the 140s, reportedly atrial flutter so he was started on Amiodarone drip in [place] and converted to sinus rhythm. He was transfused 2 units PRBC due to Hgb 9.3. His stool was nonbloody nonmelena but was Hemoccult positive. He was given zosyn and vancomycin. Critical care medicine was then contacted and accepted patient for transfer to [facility]. He denies tenderness/redness/drainage at PICC site. Aside from mechanical aortic valve, he has no other hardware or indwelling devices. He denies headache, cough, dysuria. He has had a few loose stools at home, but stools have sometimes been formed. He denies chest pain, does report some SOB. EKG at [place] had marked inferolateral ischemic changes. Obtained EKG upon arrival to [facility] which is improved. SUBJ 02/05: Patient remains critical ill appearing, complaints of chest tightness but denies pain. Remains on 8 mcg/min of Levophed to maintain map about 65. However increasing shortness of breath. Chest x-ray shows increasing pulmonary edema. Troponin was 27.5 currently on IV heparin therapeutic. Cardiology consult is pending at this time. I will stop on maintenance fluids give 40 mg IV Lasix and IV albumin 25 g 1. Patient is very critical patient and updated at the bedside 02/06: to lab technician last night for [facility] with LAD stent complicated by vasospasm of the LAD. IABP placed. patient emergently intubated for acute hypoxic respiratory failure secondary to cardiogenic shock and pulmonary edema. started on milrinone at 0.375 mcg/kg/min and levophed. bumex drip started. remains critically ill. 02/07: Remains critically ill remains on Levophed and milrinone. Currently diuresing well with Bumex drip. IABP in place management per cardiology-good waveform and augmentation. Chest x-ray shows adequate positioning of IABP, diffuse bilateral pulmonary edema 02/08: Remains critical but showing some signs of improvement. Diuresing very well on Bumex infusion. Remains on Levophed and milrinone. IABP one-to-one with good augmentation management per cardiology. Chest x-ray shows improving edema but with persistent bilateral effusions. Will initiate weaning trials if tolerated 02/09: Still remains on pressors, unable to wean Levophed below 2 mcg/min. Milrinone currently on 0.375 mcg/kg/min. IABP removed yesterday. On sedation hold patient wakes up but remains lethargic. Weakly squeezes hand. Urine output excellent on Bumex, 4 L output in 24 hours. Will attempt CPAP today 02/10: Multiple episodes of V. fib V. tach arrest yesterday morning. Successfully resuscitated. Yesterday night had two-minute V. fib arrest return of spontaneous circulation in sinus rhythm after DC cardioversion 1. Currently remains on milrinone and low-dose Levophed. I will try to wean off Levophed introduce low-dose beta-rasheed due to recurrent arrhythmia. Keep potassium more than 4 magnesium more than 2 02/11: Patient still critical and cardiogenic shock requiring Levophed and milrinone. Urine output improved with adding Diamox. Approximately 2 L urine output in 24 hours, creatinine remained stable. Oxygenation slightly improved FiO2 reduced to 70% now. Overall prognosis remains poor family wants to continue aggressive care 02/12: Remains critical but slight improvement in oxygenation. But continues to require Levophed and milrinone the low-dose. Urine output remains adequate. Chest x-ray shows interval improvement. Creatinine remains stable to slightly improved. Add IV albumin to improve blood pressure and to promote diuresis. 02/13 Patient remains intubated and sedated with Versed and fentanyl. Afebrile, off Levophed remains on Milrinone and Heparin drip. 02/14: Hypothermic overnight. Remains on milrinone and heparin drips. Tolerating tube feeds at 20 cc now. Positive BM. No changes neurologically 02/15 Patient remains sedated with Versed and Fentanyl drips, on Milrinone 0.5. 02/16 Patient remains intubated sedated with Versed and Fentanyl infusion. On Milrinone and Heparin drips. CT brain yesterday showed no acute findings. Afebrile. 02/17 Patient remains sedated and intubated. Afebrile, On Milrinone and Heparin drip. 02/18: Remains critical continues to require milrinone. Urine output adequate. Chest x-ray shows bilateral infiltrate effusion. CT chest to better define effusions and infiltrate. Increase Bumex to 1 mg every 8 hours. Patient is persistently weak, will attempt SBT unlikely to be successfully extubated at this time. Most likely will need tracheostomy if family desires aggressive care 02/19: Remains intubated sedated with Versed and fentanyl. Transition to Precedex to facilitate weaning trials. Patient responding slightly more to verbal command, appears to track even though not following commands. Creatinine slightly increased with increased diuresis. Chest x-ray shows improved pleural effusions. CT chest yesterday did not show significant effusion but basilar consolidation. 02/20 Patient was extubated yesterday on 10L simple mask, on Precdex, Heparin and Milrinone drips. Tmax 101.1 yesterday 02/21: Febrile. Currently on 5 L nasal cannula. Continues on heparin drip with 500 units an hour. Received bumetanide 1 mg 1 today. Positive BM 02/22: Remains on 5 L nasal cannula. Remains on heparin drip. No changes neurologically remains medically stable. SUBJECTIVE: 02/23: Intubated early this morning secondary to acute respiratory failure. Blood pressure marginal likely due to sedation. Ejection fraction less than 20% . Discussed with at bedside. She was to proceed with tracheostomy in PEG tube placement. We will plan for within the next few days. 02/24: Remains sedated, orally intubated on mechanical ventilation. 02/25: Remains sedated, orally intubated on mechanical ventilation. Worsening renal function noted. Check UA, urine sodium and creatinine. Ordered Kayexalate for hyperkalemia and nephrology consulted. 02/26: Sedated, arousable, orally intubated on mechanical ventilation. Will hold Plavix for planned tracheostomy and PEG tube placement. Remains on heparin for anticoagulation. 02/27: Drowsy, arousable, orally intubated on mechanical ventilation. Awaiting tracheostomy and PEG tube placement. 02/28: Drowsy, arousable, remains orally intubated on mechanical ventilation. PEG tube scheduled for today. 03/01: Drowsy, arousable, remains orally intubated on mechanical ventilation. Underwent PEG tube placement on 02/28. Worsening thrombocytopenia noted and now down to 50,000. Will continue holding Plavix and heparin. Check HIT screen and consult hematology. Awaiting tracheostomy Objective Vital Signs / I&O: Vital Signs 02/28/18 14:00 02/28/18 14:28 02/28/18 16:00 Temperature 98.2 F Pulse Rate 69 72 Respiratory Rate 12 21 Blood Pressure 101/60 Pulse Oximetry 93 L 97 02/28/18 16:21 02/28/18 18:00 02/28/18 20:00 Temperature 98.5 F Pulse Rate 67 71 66 Respiratory Rate 14 36 H Blood Pressure 92/56 L Pulse Oximetry 95 99 02/28/18 20:30 02/28/18 21:00 02/28/18 21:05 Temperature Pulse Rate 68 75 75 Respiratory Rate 28 H 43 H 15 Blood Pressure 94/60 L 104/59 L Pulse Oximetry 99 99 97 02/28/18 21:30 02/28/18 22:00 02/28/18 22:30 Temperature Pulse Rate 73 70 69 Respiratory Rate 27 H 40 H 44 H Blood Pressure 103/60 98/61 L 97/60 L Pulse Oximetry 96 97 98 02/28/18 23:00 02/28/18 23:30 03/01/18 00:00 Temperature 98.6 F Pulse Rate 69 75 77 Respiratory Rate 21 21 41 H Blood Pressure 93/56 L 99/60 L 123/66 Pulse Oximetry 97 99 99 03/01/18 00:30 03/01/18 00:32 03/01/18 01:00 Temperature Pulse Rate 68 74 Respiratory Rate 46 H 13 29 H Blood Pressure 99/63 L 103/63 Pulse Oximetry 99 35 L 99 03/01/18 01:30 03/01/18 02:00 03/01/18 02:30 Temperature Pulse Rate 68 68 74 Respiratory Rate 42 H 33 H 29 H Blood Pressure 95/58 L 99/63 L 105/67 Pulse Oximetry 99 100 100 03/01/18 03:00 03/01/18 03:30 03/01/18 04:00 Temperature 98.3 F Pulse Rate 68 67 73 Respiratory Rate 35 H 16 23 Blood Pressure 99/61 L 96/59 L 111/70 Pulse Oximetry 99 99 100 03/01/18 04:20 03/01/18 04:30 03/01/18 05:00 Temperature Pulse Rate 67 67 71 Respiratory Rate 12 23 38 H Blood Pressure 102/65 105/63 Pulse Oximetry 99 99 99 03/01/18 05:30 03/01/18 06:00 03/01/18 06:30 Temperature Pulse Rate 71 73 67 Respiratory Rate 26 H 40 H 45 H Blood Pressure 102/62 107/67 104/63 Pulse Oximetry 100 100 98 03/01/18 07:00 03/01/18 07:30 03/01/18 08:00 Temperature 97.8 F Pulse Rate 68 68 68 Respiratory Rate 50 H 51 H 17 Blood Pressure 101/62 100/62 103/62 Pulse Oximetry 98 97 98 03/01/18 08:18 03/01/18 11:35 Temperature Pulse Rate 75 Respiratory Rate 14 7 L Blood Pressure Pulse Oximetry 100 99 Intake & Output 02/28/18 03/01/18 03/01/18 18:59 06:59 18:59 Intake Total 1550 / 1550 1100 / 1100 Output Total 1075 / 1075 850 / 850 Balance 475 / 475 250 / 250 Weight 61.5 kg Intake: IV 1350 / 1350 800 / 800 Versed Inj 50 mg In 50 ml @ 2 50 / 50 50 / 50 MG/HR 2 mls/hr IV.CONT TITRATE PRN Rx#:[id number] Sodium Chloride 23.4% Inj 38.5 1000 / 1000 MEQ In Sterile Water for Inj 1, 000 ML @ 75 mls/hr IV.CONT . [id number] [facility] Rx#:[id number] Azactam Inj 1,000 MG In NS Inj 200 / 200 100 ML @ 200 mls/hr IV.SIG Q6H [facility] Rx#:[id number] Maxipime Inj 2,000 MG In NS Inj 100 / 100 100 ML @ 200 mls/hr IV.SIG Q24H [facility] Rx#:[id number] Ancef Inj 1,000 MG In NS Inj 100 / 100 100 ML @ 200 mls/hr IV.SIG Q12H [facility] Rx#:[id number] fentaNYL 10 mcg/mL Premix Drip 250 / 250 2,500 mcg In 250 ml @ 50 MCG/HR 5 mls/hr IV.SIG TITRATE PRN Rx #:[id number] Flagyl 500 MG Inj 100 ML @ 100 200 / 200 200 / 200 mls/hr IV.SIG Q8H [facility] Rx#: [id number] Tube Feeding 0 / 0 Water Bolus Amount 200 / 200 300 / 300 Output: Stool 100 / 100 0 / 0 Urine Amount (Catheter) 975 / 975 850 / 850 Indwelling Urethral Catheter 975 / 975 850 / 850 Other: Date of Last Bowel Movement 02/28/18 02/27/18 03/01/18 Result Diagrams: 02/28/18 04:58 03/01/18 10:00 Objective Remarks: GENERAL: 62-year-old male lying in bed in NAD orotracheally intubated SKIN: cool and poorly perfused. HEAD: Atraumatic. Normocephalic. EYES: Pupils equal and round, 2 mm and reactive. No injection or drainage. ENT: No nasal bleeding or discharge. Orotracheally intubated. NG tube in right nares NECK: Trachea midline. Supple, no JVD, no adenopathy/thyromegaly. Left IJ is clean dry and intact CARDIOVASCULAR: RRR. S1, S2. No S4. No murmurs rubs or gallops. RESPIRATORY: Orally intubated on mechanical ventilation, b/L equal air entry. Bilateral rhonchorous breath sounds. GASTROINTESTINAL: Abdomen soft, non-tender, nondistended. no guarding. MUSCULOSKELETAL: Extremities with trace bilateral lower extremity edema NEUROLOGICAL: Sedated, arousable, orally intubated, no focal musculoskeletal or sensory deficits Assessment and Plan - Assessment and Plan Plan: NEURO/PSYCH: History of stroke in 2015 Neuropathy left upper and lower extremity Chronic low back pain Acetaminophen 650 every 6 hours as needed fever 02/15 CT brain: No acute findings. 02/15 EEG : Encephalopathy, no epileptiform activity MRI brain 02/16: New small focal acute infarction right cerebral vertex and also left cerebral vertex. Neuro has followed. Continue ASA 81 mg daily. Continue pregabalin 150 mg p.o. twice daily. Hold duloxetine 90 mg p.o. daily. RESP: Acute hypoxic respiratory failure COPD on 2.5 L home O2 currently on 5 L Prior tobacco abuse Bilateral pleural effusions PRVC 18/500/07/22/39 Albuterol/ipratropium aerosols every 4 hours with albuterol aerosols every 2 hours as needed for dyspnea methylprednisolone succinate 40mg IV daily CV: V. tach/V. fib arrest NSTEMI Cardiogenic shock Acute systolic heart failure Atrial fibrillation with RVR [place] mechanical aortic valve (09/21/12 Dr. Gonzalez) s/p Tricuspid annuloplasty Discontinued milrinone 0.25 mgc/kg/min 02/21 Monitor HR and BP keep MAP>65mmHg s/p cath And PCI -proximal LAD and large diagonal 90% stenosis, 2 BMS stent 02/05, mid LAD vasospasm post PCI Continue aspirin 81 mg daily, Hold clopidogrel starting 02/26 for trach/ PEG, amiodarone 400mg TID, carvedilol 3.125mg BID Bumetanide 1mg IV q8h, reduce to 1 mg IV q24. discontinued today 02/21. Stop Spironolactone in v/o hyperkalemia on 02/25 Heparin drip. PTT therapeutic. Continue atorvastatin 40 mg nightly. Off IABP CAM[place] 01/23/18no vegetation. Normal aortic mechanical valve with trivial aortic insufficiency. Tricuspid annuloplasty. Mild to moderate LV generalized hypokinesis Echo from 02/05: EF <20%, diffuse hypokinesis, bioprosthetic valve Uke Operator is Romana Bartlett GI: Moderate protein calorie malnutrition with hypoalbuminemia Speech eval, diet per speech, if fails will restart tube feeds-Jevity 1.5 currently at 15 cc an hour. Goal 50 cc an hour Lansoprazole for stress ulcer prophylactic Had normal EGD on 10/21/17 FEN/RENAL: BPH Acute kidney injury-worsening Hypopotassemia Hypernatremia Cano due to aggressive diuresis. close monitoring of uop Monitor renal function, I/O's, Renal ultrasound to evaluate for evidence of obstruction -did not show any obstruction Discontinued bumetanide 1mg IV daily , spironolactone 25 mg twice daily stopped on 02/25 due to hyperkalemia and worsening renal function.. Hold tamsulosin 0.4 mg daily for now Nephrology consult requested for SHARON with worsening BUN/creatinine. 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 difficile colitis PICC removed Continue IV cefepime. Discontinue IV vancomycin and gentamicin 02/20 C.diff tx: po vanco + IV flagyl 02/11/18 Infectious disease following 02/18 Sputum: Pseudomonas 02/14 Sputum: Pseudomonas 02/11 Sputum cx: Pseudomonas, Kleb pneumonia BC 02/11, 02/06: NGTD HEME: Chronic normocytic anemia Iron deficiency Leukocytosis Thrombocytopenia Continue ferrous sulfate 300 milligrams liquid daily. Received 2 units packed red cells in [place] ER due to anemia and shock. Monitor CBC. Continue holding Plavix and heparin. Hematology consulted for worsening thrombocytopenia. Awaiting HIT screen. ENDO: SSI to maintain euglycemia PROPH: Heparin drip held due to worsening thrombocytopenia awaiting hit screen. Protonix for stress ulcer prophylaxis ACCESS: Left IJ central line placed 02/05/18. Palliative care is following Level [address] Dr[address] Quintana discussed with at bedside on 02/23. Request continued aggressive care with tracheostomy and PEG tube placement.
--- NOTE | 2018-03-01 12:48 | P.PNNP ---
Subjective Interval history: S/P PEG placement yesterday. Renal function is slightly better. 1/4 NS continues. Intubated, unresponsive. <Munira Finnegan - Last Filed: 03/01/18 12:33> Physical Exam Vital signs: Vital Signs 02/28/18 14:00 02/28/18 14:28 02/28/18 16:00 Temperature 98.2 F Pulse Rate 69 72 Respiratory Rate 12 21 Blood Pressure 101/60 Pulse Oximetry 93 L 97 02/28/18 16:21 02/28/18 18:00 02/28/18 20:00 Temperature 98.5 F Pulse Rate 67 71 66 Respiratory Rate 14 36 H Blood Pressure 92/56 L Pulse Oximetry 95 99 02/28/18 20:30 02/28/18 21:00 02/28/18 21:05 Temperature Pulse Rate 68 75 75 Respiratory Rate 28 H 43 H 15 Blood Pressure 94/60 L 104/59 L Pulse Oximetry 99 99 97 02/28/18 21:30 02/28/18 22:00 02/28/18 22:30 Temperature Pulse Rate 73 70 69 Respiratory Rate 27 H 40 H 44 H Blood Pressure 103/60 98/61 L 97/60 L Pulse Oximetry 96 97 98 02/28/18 23:00 02/28/18 23:30 03/01/18 00:00 Temperature 98.6 F Pulse Rate 69 75 77 Respiratory Rate 21 21 41 H Blood Pressure 93/56 L 99/60 L 123/66 Pulse Oximetry 97 99 99 03/01/18 00:30 03/01/18 00:32 03/01/18 01:00 Temperature Pulse Rate 68 74 Respiratory Rate 46 H 13 29 H Blood Pressure 99/63 L 103/63 Pulse Oximetry 99 35 L 99 03/01/18 01:30 03/01/18 02:00 03/01/18 02:30 Temperature Pulse Rate 68 68 74 Respiratory Rate 42 H 33 H 29 H Blood Pressure 95/58 L 99/63 L 105/67 Pulse Oximetry 99 100 100 03/01/18 03:00 03/01/18 03:30 03/01/18 04:00 Temperature 98.3 F Pulse Rate 68 67 73 Respiratory Rate 35 H 16 23 Blood Pressure 99/61 L 96/59 L 111/70 Pulse Oximetry 99 99 100 03/01/18 04:20 03/01/18 04:30 03/01/18 05:00 Temperature Pulse Rate 67 67 71 Respiratory Rate 12 23 38 H Blood Pressure 102/65 105/63 Pulse Oximetry 99 99 99 03/01/18 05:30 03/01/18 06:00 03/01/18 06:30 Temperature Pulse Rate 71 73 67 Respiratory Rate 26 H 40 H 45 H Blood Pressure 102/62 107/67 104/63 Pulse Oximetry 100 100 98 03/01/18 07:00 03/01/18 07:30 03/01/18 08:00 Temperature 97.8 F Pulse Rate 68 68 68 Respiratory Rate 50 H 51 H 17 Blood Pressure 101/62 100/62 103/62 Pulse Oximetry 98 97 98 03/01/18 08:18 03/01/18 11:35 Temperature Pulse Rate 75 Respiratory Rate 14 7 L Blood Pressure Pulse Oximetry 100 99 Intake & Output 02/28/18 03/01/18 03/01/18 18:59 06:59 18:59 Intake Total 1550 / 1550 1100 / 1100 Output Total 1075 / 1075 850 / 850 Balance 475 / 475 250 / 250 Weight 61.5 kg Intake: IV 1350 / 1350 800 / 800 Versed Inj 50 mg In 50 ml @ 2 50 / 50 50 / 50 MG/HR 2 mls/hr IV.CONT TITRATE PRN Rx#:[id number] Sodium Chloride 23.4% Inj 38.5 1000 / 1000 MEQ In Sterile Water for Inj 1, 000 ML @ 75 mls/hr IV.CONT . [id number] [facility] Rx#:[id number] Azactam Inj 1,000 MG In NS Inj 200 / 200 100 ML @ 200 mls/hr IV.SIG Q6H [facility] Rx#:[id number] Maxipime Inj 2,000 MG In NS Inj 100 / 100 100 ML @ 200 mls/hr IV.SIG Q24H [facility] Rx#:[id number] Ancef Inj 1,000 MG In NS Inj 100 / 100 100 ML @ 200 mls/hr IV.SIG Q12H [facility] Rx#:[id number] fentaNYL 10 mcg/mL Premix Drip 250 / 250 2,500 mcg In 250 ml @ 50 MCG/HR 5 mls/hr IV.SIG TITRATE PRN Rx #:[id number] Flagyl 500 MG Inj 100 ML @ 100 200 / 200 200 / 200 mls/hr IV.SIG Q8H [facility] Rx#: [id number] Tube Feeding 0 / 0 Water Bolus Amount 200 / 200 300 / 300 Output: Stool 100 / 100 0 / 0 Urine Amount (Catheter) 975 / 975 850 / 850 Indwelling Urethral Catheter 975 / 975 850 / 850 Other: Date of Last Bowel Movement 02/28/18 02/27/18 03/01/18 - Constitutional thin, cachectic, chronically ill appearing - Routine HEENT Exam Head: Present: normocephalic - Routine Neck Exam Present: supple, full ROM - Routine Cardiovascular Exam Present: RRR, S1, S2 - Routine Abdominal Exam Present: soft, normoactive bowel sounds Comments: PEG tube - Routine Extremities Exam Present: pulses intact. Absent: edema - Routine Skin Exam Present: intact, dry, warm - Routine Neurological Exam sedated, unresponsive - Routine Psychiatric Exam Present: unable to assess - Urinary Catheter Management Condom Cath placed during this visit: yes Urethral indwelling: Yes Reason for continuing: Acute urinary retention Insertion date: 02/24/18 Indwelling Urethral Catheter Cath placed during this visit: yes Reason for continuing: Acute urinary retention Insertion date: 02/24/18 Indwelling Temp Sensing Catheter Cath placed during this visit: yes, but has since been removed by the nurse Reason for continuing: Acute urinary retention Insertion date: 02/12/18 Insertion time: 20:15 Removal date: 02/20/18 Removal time: 16:00 <Munira Finnegan - Last Filed: 03/01/18 12:33> Vital signs: Vital Signs 03/01/18 08:00 03/01/18 08:18 03/01/18 08:30 Temperature 97.8 F Pulse Rate 68 75 72 Respiratory Rate 17 14 70 H Blood Pressure 103/62 110/68 Pulse Oximetry 98 100 99 03/01/18 09:00 03/01/18 09:30 03/01/18 10:00 Temperature Pulse Rate 72 72 72 Respiratory Rate 72 H 72 H 54 H Blood Pressure 109/71 112/68 108/68 Pulse Oximetry 99 98 99 03/01/18 10:30 03/01/18 11:00 03/01/18 11:30 Temperature Pulse Rate 68 67 71 Respiratory Rate 54 H 33 H 38 H Blood Pressure 106/65 102/61 108/66 Pulse Oximetry 99 99 99 03/01/18 11:35 03/01/18 12:00 03/01/18 12:30 Temperature 97.6 F Pulse Rate 75 80 Respiratory Rate 7 L 51 H 52 H Blood Pressure 113/70 116/67 Pulse Oximetry 99 99 94 L 03/01/18 13:00 03/01/18 13:30 03/01/18 14:00 Temperature Pulse Rate 78 78 81 Respiratory Rate 52 H 67 H 65 H Blood Pressure 119/67 104/61 108/65 Pulse Oximetry 99 03/01/18 14:30 03/01/18 15:00 03/01/18 15:30 Temperature Pulse Rate 81 89 93 H Respiratory Rate 71 H 55 H 46 H Blood Pressure 108/64 111/72 115/68 Pulse Oximetry 99 98 03/01/18 16:00 03/01/18 16:04 03/01/18 16:06 Temperature Pulse Rate 107 H 90 Respiratory Rate 21 15 19 Blood Pressure 121/84 Pulse Oximetry 98 100 03/01/18 16:30 03/01/18 17:00 03/01/18 17:30 Temperature 97.9 F Pulse Rate 92 H 90 89 Respiratory Rate 40 H 58 H 50 H Blood Pressure 112/70 116/72 113/73 Pulse Oximetry 95 98 98 03/01/18 18:00 03/01/18 20:00 03/01/18 21:33 Temperature 97.9 F Pulse Rate 79 69 66 Respiratory Rate 41 H 31 H 15 Blood Pressure 113/68 102/64 Pulse Oximetry 97 99 96 03/01/18 22:00 03/02/18 00:00 03/02/18 02:00 Temperature 97.9 F Pulse Rate 65 66 67 Respiratory Rate 30 H Blood Pressure 100/61 Pulse Oximetry 100 03/02/18 04:00 03/02/18 04:22 03/02/18 06:00 Temperature 97.6 F Pulse Rate 69 98 H 68 Respiratory Rate 33 H 15 Blood Pressure 101/63 Pulse Oximetry 97 98 Intake & Output 03/01/18 03/02/18 03/02/18 18:59 06:59 18:59 Intake Total 2293.625 / 2293.625 1350 / 1350 Output Total 1050 / 1050 1050 / 1050 Balance 1243.625 / 1243.625 300 / 300 Weight 63 kg Intake: IV 1209.625 / 1209.625 700 / 700 Versed Inj 50 mg In 50 ml @ 2 50 / 50 MG/HR 2 mls/hr IV.CONT TITRATE PRN Rx#:[id number] Sodium Chloride 23.4% Inj 38.5 1009.625 / 1009.625 MEQ In Sterile Water for Inj 1, 000 ML @ 75 mls/hr IV.CONT . [id number] [facility] Rx#:[id number] Azactam Inj 1,000 MG In NS Inj 200 / 200 200 / 200 100 ML @ 200 mls/hr IV.SIG Q6H [facility] Rx#:[id number] Diflucan 200 mg Premix Bag 100 100 / 100 ML @ 100 mls/hr IV.SIG Q24H [facility] Rx#:[id number] Ancef Inj 1,000 MG In NS Inj 100 / 100 100 ML @ 200 mls/hr IV.SIG Q12H [facility] Rx#:[id number] fentaNYL 10 mcg/mL Premix Drip 250 / 250 2,500 mcg In 250 ml @ 50 MCG/HR 5 mls/hr IV.SIG TITRATE PRN Rx #:[id number] Tube Feeding 484 / 484 250 / 250 Water Bolus Amount 600 / 600 400 / 400 Output: Stool 50 / 50 200 / 200 Urine Amount (Catheter) 1000 / 1000 850 / 850 Indwelling Urethral Catheter 1000 / 1000 850 / 850 Other: Date of Last Bowel Movement 03/01/18 03/01/18 - Urinary Catheter Management Condom Cath placed during this visit: no Indwelling Urethral Catheter Cath placed during this visit: no Indwelling Temp Sensing Catheter Cath placed during this visit: no <Evangelist Ashley - Last Filed: 03/02/18 07:47> Assessment and Plan - Assessment (1) Acute kidney injury Code(s): N17.9 - Acute kidney failure, unspecified Status: Acute Plan: Baseline 0.9-1.2. SHARON most likely due to overdiuresis and dehydration. Renal function is improving. Continue 1/4 NS @ 75 cc/hr, still hypernatremic. Repeat labs daily. Avoid nephrotoxic agents. His prognosis is very poor. He is severely malnourished and at risk for complications. Monitor urine output and renal function. (2) Hyperosmolality and hypernatremia Code(s): E87.0 - Hyperosmolality and hypernatremia Status: Acute Plan: Somewhat improved. Iatrogenic, due to loop diuretic, excessive sensible and insensible water losses. On Free water flushes with tube feeding and hypotonic fluids. Avoid hyperglycemia. (3) Hyperkalemia Code(s): E87.5 - Hyperkalemia Status: Acute Plan: Improved. He was on potassium replacement and taking Spironolactone. All of these have been stopped. (4) Sepsis Code(s): A41.9 - Sepsis, unspecified organism Status: Acute Plan: He is on PO Vancomycin for C.diff. On IV Vancomycin and Flagyl. Carefully monitor Vancomycin dosing and levels. (5) Heart valve replaced by other means Code(s): Z95.4 - Presence of other heart-valve replacement Status: Acute Plan: Heparin drip per protocol, held currently for anemia and thrombocytopenia. (6) Atrial fibrillation Code(s): I48.91 - Unspecified atrial fibrillation Status: Acute Plan: Rate control measures. Anticoagulation. - Plan Pt is due for Trach placement . <Munira Finnegan - Last Filed: 03/01/18 12:33> - Assessment (1) Acute kidney injury Code(s): N17.9 - Acute kidney failure, unspecified Status: Acute (2) Hyperosmolality and hypernatremia Code(s): E87.0 - Hyperosmolality and hypernatremia Status: Acute (3) Hyperkalemia Code(s): E87.5 - Hyperkalemia Status: Acute (4) Sepsis Code(s): A41.9 - Sepsis, unspecified organism Status: Acute (5) Heart valve replaced by other means Code(s): Z95.4 - Presence of other heart-valve replacement Status: Acute (6) Atrial fibrillation Code(s): I48.91 - Unspecified atrial fibrillation Status: Acute - Attending Attestation patient was seen and examined. Agree with above assessment and plan. Renal function is improving. Hypernatremia is improving as well. <Evangelist Ashley - Last Filed: 03/02/18 07:47>
--- NOTE | 2018-03-01 18:12 | P.PNID ---
Subjective Remarks: remains on vent not doing well Cretinine improving Plts are dropping low grasde fever Antibiotics: azactam cefazolin oral vanco iv flagyl Allergies/Adverse Reactions: Allergies No Known Allergies Allergy (Verified 02/04/18 18:10) Objective Vital Signs 02/28/18 20:00 02/28/18 20:30 02/28/18 21:00 Temperature 98.5 F Pulse Rate 66 68 75 Respiratory Rate 36 H 28 H 43 H Blood Pressure 92/56 L 94/60 L 104/59 L Pulse Oximetry 99 99 99 02/28/18 21:05 02/28/18 21:30 02/28/18 22:00 Temperature Pulse Rate 75 73 70 Respiratory Rate 15 27 H 40 H Blood Pressure 103/60 98/61 L Pulse Oximetry 97 96 97 02/28/18 22:30 02/28/18 23:00 02/28/18 23:30 Temperature Pulse Rate 69 69 75 Respiratory Rate 44 H 21 21 Blood Pressure 97/60 L 93/56 L 99/60 L Pulse Oximetry 98 97 99 03/01/18 00:00 03/01/18 00:30 03/01/18 00:32 Temperature 98.6 F Pulse Rate 77 68 Respiratory Rate 41 H 46 H 13 Blood Pressure 123/66 99/63 L Pulse Oximetry 99 99 35 L 03/01/18 01:00 03/01/18 01:30 03/01/18 02:00 Temperature Pulse Rate 74 68 68 Respiratory Rate 29 H 42 H 33 H Blood Pressure 103/63 95/58 L 99/63 L Pulse Oximetry 99 99 100 03/01/18 02:30 03/01/18 03:00 03/01/18 03:30 Temperature Pulse Rate 74 68 67 Respiratory Rate 29 H 35 H 16 Blood Pressure 105/67 99/61 L 96/59 L Pulse Oximetry 100 99 99 03/01/18 04:00 03/01/18 04:20 03/01/18 04:30 Temperature 98.3 F Pulse Rate 73 67 67 Respiratory Rate 23 12 23 Blood Pressure 111/70 102/65 Pulse Oximetry 100 99 99 03/01/18 05:00 03/01/18 05:30 03/01/18 06:00 Temperature Pulse Rate 71 71 73 Respiratory Rate 38 H 26 H 40 H Blood Pressure 105/63 102/62 107/67 Pulse Oximetry 99 100 100 03/01/18 06:30 03/01/18 07:00 03/01/18 07:30 Temperature Pulse Rate 67 68 68 Respiratory Rate 45 H 50 H 51 H Blood Pressure 104/63 101/62 100/62 Pulse Oximetry 98 98 97 03/01/18 08:00 03/01/18 08:18 03/01/18 08:30 Temperature 97.8 F Pulse Rate 68 75 72 Respiratory Rate 17 14 70 H Blood Pressure 103/62 110/68 Pulse Oximetry 98 100 99 03/01/18 09:00 03/01/18 09:30 03/01/18 10:00 Temperature Pulse Rate 72 72 72 Respiratory Rate 72 H 72 H 54 H Blood Pressure 109/71 112/68 108/68 Pulse Oximetry 99 98 99 03/01/18 10:30 03/01/18 11:00 03/01/18 11:30 Temperature Pulse Rate 68 67 71 Respiratory Rate 54 H 33 H 38 H Blood Pressure 106/65 102/61 108/66 Pulse Oximetry 99 99 99 03/01/18 11:35 03/01/18 12:00 03/01/18 12:30 Temperature 97.6 F Pulse Rate 75 80 Respiratory Rate 7 L 51 H 52 H Blood Pressure 113/70 116/67 Pulse Oximetry 99 99 94 L 03/01/18 16:04 03/01/18 16:06 Temperature Pulse Rate 90 Respiratory Rate 15 19 Blood Pressure Pulse Oximetry 100 Intake & Output 02/28/18 03/01/18 03/01/18 18:59 06:59 18:59 Intake Total 1550 / 1550 1200 / 1200 1209.625 / 1209.625 Output Total 1075 / 1075 850 / 850 Balance 475 / 475 350 / 350 1209.625 / 1209.625 Weight 61.5 kg Intake: IV 1350 / 1350 900 / 900 1209.625 / 1209.625 Versed Inj 50 mg In 50 ml @ 2 50 / 50 50 / 50 MG/HR 2 mls/hr IV.CONT TITRATE PRN Rx#:[id number] Sodium Chloride 23.4% Inj 38.5 1000 / 1000 1009.625 / 1009.625 MEQ In Sterile Water for Inj 1, 000 ML @ 75 mls/hr IV.CONT . [id number] [facility] Rx#:[id number] Azactam Inj 1,000 MG In NS Inj 200 / 200 200 / 200 100 ML @ 200 mls/hr IV.SIG Q6H [facility] Rx#:[id number] Maxipime Inj 2,000 MG In NS Inj 100 / 100 100 ML @ 200 mls/hr IV.SIG Q24H [facility] Rx#:[id number] Ancef Inj 1,000 MG In NS Inj 200 / 200 100 ML @ 200 mls/hr IV.SIG Q12H [facility] Rx#:[id number] fentaNYL 10 mcg/mL Premix Drip 250 / 250 2,500 mcg In 250 ml @ 50 MCG/HR 5 mls/hr IV.SIG TITRATE PRN Rx #:[id number] Flagyl 500 MG Inj 100 ML @ 100 200 / 200 200 / 200 mls/hr IV.SIG Q8H [facility] Rx#: [id number] Tube Feeding 0 / 0 Water Bolus Amount 200 / 200 300 / 300 Output: Stool 100 / 100 0 / 0 Urine Amount (Catheter) 975 / 975 850 / 850 Indwelling Urethral Catheter 975 / 975 850 / 850 Other: Date of Last Bowel Movement 02/28/18 02/27/18 03/01/18 02/27/18 02:28 Blood - Peripheral Aerobic Blood Culture - Preliminary No growth in 2 days 02/27/18 02:28 Blood - Peripheral Anaerobic Blood Culture - Preliminary No growth in 2 days 02/27/18 02:20 Blood - Peripheral Aerobic Blood Culture - Preliminary No growth in 2 days 02/27/18 02:20 Blood - Peripheral Anaerobic Blood Culture - Preliminary No growth in 2 days 02/25/18 13:20 Catheterized Urine Urine Culture - Final [facility] - Hematology Results 02/28/18 04:58 WBC 7.5 RBC 2.22 L Hgb 7.0 L Hct 21.1 L MCV 95.2 MCH 31.6 MCHC 33.2 RDW 19.7 H Plt Count 52 L D MPV 11.1 H Prelim Diff (Auto) Slide review pending Neut % (Auto) 91.0 H Lymph % (Auto) 5.0 L [place] % (Auto) 3.4 Eos % (Auto) 0.5 Baso % (Auto) 0.1 Neut # (Auto) 6.8 Lymph # (Auto) 0.4 L [place] # (Auto) 0.3 Eos # (Auto) 0.0 Baso # (Auto) 0.0 WBC Differential . Diff Scan Auto diff confirmed Differential Comment . Platelet Estimate Low L Platelet Morphology Normal Ovalocytes 1+ H Lab - Chemistry Results 02/27/18 02/28/18 02/28/18 23:44 05:39 08:48 Sodium Potassium Chloride Carbon Dioxide Anion Gap BUN Creatinine Estimated GFR POC Glucose 193 H 139 H 103 Random Glucose Calcium 02/28/18 02/28/18 03/01/18 11:36 17:40 00:00 Sodium Potassium Chloride Carbon Dioxide Anion Gap BUN Creatinine Estimated GFR POC Glucose 87 110 126 H Random Glucose Calcium 03/01/18 03/01/18 03/01/18 05:24 06:08 06:28 Sodium Potassium Chloride Carbon Dioxide Anion Gap BUN Creatinine 2.61 H Estimated GFR 25 L POC Glucose 70 168 H Random Glucose Calcium 03/01/18 03/01/18 03/01/18 10:00 12:01 16:40 Sodium 146 H Potassium 4.4 Chloride 114 H Carbon Dioxide 20.4 L Anion Gap 12 BUN 88 H Creatinine 2.58 H Estimated GFR 25 L POC Glucose 94 225 H Random Glucose 107 H Calcium 7.9 L Imaging: ITS Impressions Abdomen/Bladder Ultrasound 02/05/18 00:00 CONCLUSION: 1. No evidence of hydronephrosis. 2. The echogenicity of the kidneys is equal to that of the liver which can be seen with medical renal disease. 3. Simple cyst in right kidney. 4. Suboptimal visualization of the left kidney. 5. Small amount of free fluid along the spleen. This could represent an adjacent pleural effusion. Head CT 02/15/18 12:23 CONCLUSION: 1. Negative CT Head non contrast. . Head MRI 02/16/18 08:28 CONCLUSION: 1. New focus of restricted diffusion high along the right cerebral vertex measuring 8 mm consistent with a new small focal acute infarction. 2. There is a new 5 mm area restricted diffusion high along the left cerebral vertex consistent with a new small focal acute infarction. 3. 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 This area is stable compared to the prior examination. 4. Stable bilateral cortical atrophy and mild chronic white matter changes. 5. Chronic bilateral mastoiditis. Abdomen X-Ray 02/17/18 00:00 CONCLUSION: Nonspecific bowel gas pattern. Chest CT 02/18/18 00:00 CONCLUSION: 1. Increasing basilar and dependent consolidation in both lungs most characteristic of pneumonia or aspiration. 2. Near complete resolution of previous small effusions. 3. Osteopenia with stable compression deformities in the spine. 4. Previous sternotomy with aortic valve replacement. 5. Right-sided central line, ET tube and NG tube in good position. Chest X-Ray 02/24/18 06:00 CONCLUSION: Stable chest x-ray with atelectasis at the right lung base and volume loss versus consolidation in the left lower lobe. Physical Exam: GENERAL: Intubated. On vent cachectic SKIN: Warm and dry. HEAD: Atraumatic. Normocephalic. EYES: Pupils equal and round. No scleral icterus. No injection or drainage. ENT: No nasal bleeding or discharge. Mucous membranes pale NECK: Trachea midline. No JVD. CARDIOVASCULAR: Regular rate and rhythm. + diastolic blowing murmur on aortic valve point 1-2/6 today RESPIRATORY: No accessory muscle use. b/l rales to auscultation. Breath sounds equal bilaterally. GASTROINTESTINAL: Abdomen soft, tight, distended and tender . Hepatic and splenic margins not palpable. liquid brown stool in the dignishield bag : roberson in place with good amount of urine MUSCULOSKELETAL: Extremities without clubbing, cyanosis, or edema. No obvious deformities. warmt o cool to touch feet NEUROLOGICAL: Obtunded, unresponsive PSYCHIATRIC:unable to assess Assessment and Plan - Plan Sepsis C.diff ? VAP ; PSAE, KLEb - new infiltrates and difficulty weaning - CT and CXR look worse, though resp status improved with Previous MSSA sepsis with presumed PVE of aortic valve prosthesis, on treatment - tx included vanco+ gent w/o rifampin Acute renal insufficiency, improving slowly GFR CHF EF < 20 % sp MN troponin peaked @ 32 cont vanco + gent as a part of PVE Rx will not add rifampin while on amio 2/2 interaction with amiodarone Rifampin can be added if amiodarone is discontinued ccont cefepime and complete 7-14 days of PNA treatment Worsening leukocytosis, C.diff is likely the source Ileus New stroke worsening renal status: improved after vanco and gent stopped / new sepsis? Fungiuria change cefepime, to azactam start ancef cont C.diff tx: po vanco dc IV flagyl cont flucona zol monitor plts agree with hem/onc consult
--- NOTE | 2018-03-01 19:33 | MB ---
cc: Robbie Rosas MD DATE: 03/01/2018 ATTENDING PHYSICIAN: Dr. Brock REASON FOR CONSULTATION: Hematology consult for opinion of a patient with thrombocytopenia. HISTORY OF PRESENT ILLNESS: The patient is a 62-year-old admitted to the hospital on 02/04/2018 for fever, hypotension. He was found to have septic shock. He was in atrial fibrillation. He is currently in the intensive care unit on the ventilator. His was at the bedside. History was obtained from the . On presentation, patient has a normal platelet count. Over the last few days, a platelet count has gradually trended down to 52,000. There was no report of bleeding. He also has a worsening anemia with hemoglobin trended down to 7. He had leukocytosis initially, but platelet count has trended down to normal initially, but white blood cell count has trended down to normal. During this hospital stay, he developed renal failure. He also has C difficile colitis. PAST MEDICAL HISTORY: 1. Chronic obstructive pulmonary disease. 2. Chronic back pain. 3. Atrial fibrillation 4. Hemorrhagic stroke. 5. Hyperlipidemia. 6. Methicillin-sensitive Staphylococcus aureus bacteremia. 7. Osteoporosis. 8. Neuropathy. PAST SURGICAL HISTORY: 1. Aortic valve replacement, [employer] mechanical valve. 2. Inguinal hernia repair. FAMILY HISTORY: Coronary artery disease. They have no children. SOCIAL HISTORY: Quit tobacco. Has occasional alcohol. ALLERGIES: NO KNOWN DRUG ALLERGIES. CURRENT MEDICATIONS: 1. DuoNebs. 2. Amiodarone. 3. Vitamin C. 4. Aspirin. 5. Lipitor. 6. Aztreonam. 7. Cefazolin. 8. Plavix. 9. Digoxin. 10. Cymbalta. 11. Ferrous sulfate. 12. Diflucan. 13. Insulin. 14. Lansoprazole. 15. Methylprednisolone. 16. Flagyl. 17. Lyrica. 18. Linda-Colace. 19. Potassium. 20. Vancomycin. REVIEW OF SYSTEMS: As above. PHYSICAL EXAMINATION: VITAL SIGNS: Temperature 97.6. GENERAL: He is on the ventilator, opens his eyes and follow commands. HEENT: Atraumatic, normocephalic. Pupil equal, round, reactive to light. Oropharynx: ET tube in place. No bleeding noted. NECK: No thyromegaly. No palpable mass. LYMPHATIC: No palpable clavicular, axillary or inguinal lymph nodes. CARDIOVASCULAR: Irregular, S1, S2. LUNGS: Clear to auscultation anteriorly. ABDOMEN: Soft. G-tube noted. I could not palpate the liver or spleen. EXTREMITIES: No edema. SKIN: No rash or petechiae. NEUROLOGIC: He is moving all 4 extremities. LABORATORY DATA: I reviewed his lab work for this admission. ASSESSMENT AND PLAN: 1. Thrombocytopenia, which appeared to be acute. He first presented with mild thrombocytosis due to the infection. His platelet count has gradually trended down over the last few days to 52,000. Clinically, he has no evidence of bleeding. He has been on heparin. Differential diagnosis includes heparin-induced thrombocytopenia antibody, DIC with consumptive process and vitamin deficiency. The heparin is on hold at this point. Heparin-induced thrombocytopenia rapid assay is pending. We will have pathology review the smear. We will check an iron study. If the heparin-induced thrombocytopenia is positive, we will start him on argatroban. The antibiotic could also possibly cause the thrombocytopenia. 2. Anemia, likely multifactorial due to renal failure, as well as chronic inflammatory process. Hemoglobin has gradually trended down to 7. No obvious bleeding noted. We will check his iron and vitamin study. Can consider giving him Epogen. 3. Respiratory failure, on ventilator, he is awaiting a tracheostomy placement. 4. Sepsis. He is on Flagyl, aztreonam, cefazolin and vancomycin. 5. Clostridium difficile colitis. 6. Chronic obstructive pulmonary disease. 7. History of hemorrhagic stroke. RECOMMENDATIONS: 1. Proceed with laboratory evaluation outlined as above. 2. Await HIT antibody assay. Would start him on argatroban if he has positive HIT antibody. 3. Review peripheral smear. 4. Check DIC panel. Thank you Dr. Brock, for asking me to see this patient. Robbie Rosas MD BYFloresita/ct , 05:24 PM , 05:41 PM JINA
[2018-03-01 21:48] LABS: Activated Partial Thrombo Time 31.7 sec (24.3-30.1); INR 1.4 Ratio; Prothrombin Time 14.2 sec (9.8-11.6)
[2018-03-01 22:17] LABS: Folate 19.4 ng/mL (3.1-17.5)
[2018-03-02] MEDS: Insulin NovoLOG Aspart Correctional Sugar Inj SQ SCH ×4 (00:18→17:43)
[2018-03-02] MEDS: Oral Hygiene Kit OROPHARYNG SCH ×3 (04:56→17:25)
[2018-03-02] MEDS: fentaNYL 10 mcg/mL Premix Drip 2,500 MCG/250 ML BAG IV.SIG PRN (04:57)
[2018-03-02] MEDS: Midazolam 50 MG/50 ML Inj 50 MG/50 ML BAG IV.CONT PRN (04:57)
[2018-03-02 05:53] LABS: Baso % (Auto) 0.1 % (0.0-2.0); Eos % (Auto) 0.2 % (0.0-4.0); Hemoglobin 7.9 gm/dL (13.0-17.0); Lymph # (Auto) 0.5 th/mm3 (1.0-4.8); Lymph % (Auto) 6.6 % (9.0-44.0); Mean Corpuscular HGB Conc 32.9 % (32.0-36.0); Mean Corpuscular Hemoglobin 31.9 pg (27.0-34.0); Mean Corpuscular Volume 96.9 fL (80.0-100.0); Mono # (Auto) 0.4 th/mm3 (0.0-0.9); Mono % (Auto) 4.6 % (0.0-8.0); Neut # (Auto) 6.8 th/mm3 (1.8-7.7); Neut % (Auto) 88.5 % (16.0-70.0); Platelet Count 43 th/mm3 (150-450); Red Blood Count 2.47 mil/mm3 (4.50-5.90); Red Cell Distribution Width 19.7 % (11.6-17.2); White Blood Count 7.7 th/mm3 (4.0-11.0)
[2018-03-02] MEDS: Sodium Chloride 23.4% Inj 38.5 MEQ in Water for Inj, Sterile 1,000 ML IV.CONT SCH ×2 (06:04→18:40)
[2018-03-02 06:21] LABS: Calcium 7.3 mg/dL (8.5-10.1); Carbon Dioxide 20.6 meq/L (21.0-32.0); Phosphorus 4.6 mg/dL (2.5-4.9); Potassium 3.9 meq/L (3.5-5.1)
[2018-03-02 06:34] LABS: Total Protein 5.4 g/dL (6.4-8.2)
[2018-03-02 08:22] LABS: Hypersegmented Neutrophils 1+
[2018-03-02 08:23] LABS: Ovalocytes 1+; Platelet Morphology Normal (Normal)
[2018-03-02] MEDS: Pregabalin 75 MG Capsule PO SCH ×2 (08:39→20:09)
[2018-03-02] MEDS: Ascorbic Acid 500 MG Tablet NG/OG SCH (08:39)
[2018-03-02] MEDS: Chlorhexidine 0.12% Oral Kit 15 ML UDC OROPHARYNG SCH ×2 (08:39→20:10)
[2018-03-02] MEDS: Hypromellose 0.3% Opth Gel 10 GM Bottle EACH EYE SCH ×2 (08:40→20:09)
[2018-03-02] MEDS: Amiodarone 200 MG Tablet G-TUBE SCH ×2 (08:40→20:09)
[2018-03-02] MEDS: Senna/Docusate Sodium 8.6/50 MG Tablet PO SCH ×2 (08:40→20:09)
[2018-03-02] MEDS: MethylPREDNISolone Sod Succinate Inj 40 MG/ML Vial IV.PUSH SCH (08:41)
[2018-03-02] MEDS: Beneprotein Powder Packet G-TUBE SCH ×3 (08:41→17:37)
[2018-03-02] MEDS: Ferrrous Sulfate 300 MG/5 ML UDC PO SCH (08:41)
--- NOTE | 2018-03-02 13:14 | P.PNCC ---
Subjective Subjective Remarks/Hospital Course: 62-year-old male with past medical history of [place] mechanical aortic valve (09/21/12 Dr. Gonzalez), on chronic anticoagulation with warfarin, atrial fibrillation postop from AVR , COPD on 2.5 L home O2, stroke in 2015 resulting in left-sided sensory deficits and neuropathy, osteoporosis with chronic low back pain. He was recently admitted to [facility] from 01/23 through 01/31/18 for MSSA bacteremia. It is believed that the original source of infection was a wound on his right index finger when electric drill slipped and created a puncture wound. He was discharged with right upper extremity PICC line receiving cefazolin 2 g IV every 8 hours and gentamicin 210 mg IV daily. He states that home health administered antibiotics at 17:00 and shortly thereafter he began having chills and rigors and sought medical attention at [facility]. He had no rash. Upon arrival, he was hypotensive in the low 80s. He was given 2 L S bolus but remained hypotensive so was started on Levophed. He then developed heart rate in the 140s, reportedly atrial flutter so he was started on Amiodarone drip in [place] and converted to sinus rhythm. He was transfused 2 units PRBC due to Hgb 9.3. His stool was nonbloody nonmelena but was Hemoccult positive. He was given zosyn and vancomycin. Critical care medicine was then contacted and accepted patient for transfer to [facility]. He denies tenderness/redness/drainage at PICC site. Aside from mechanical aortic valve, he has no other hardware or indwelling devices. He denies headache, cough, dysuria. He has had a few loose stools at home, but stools have sometimes been formed. He denies chest pain, does report some SOB. EKG at [place] had marked inferolateral ischemic changes. Obtained EKG upon arrival to [facility] which is improved. SUBJ 02/05: Patient remains critical ill appearing, complaints of chest tightness but denies pain. Remains on 8 mcg/min of Levophed to maintain map about 65. However increasing shortness of breath. Chest x-ray shows increasing pulmonary edema. Troponin was 27.5 currently on IV heparin therapeutic. Cardiology consult is pending at this time. I will stop on maintenance fluids give 40 mg IV Lasix and IV albumin 25 g 1. 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 with LAD stent complicated by vasospasm of the LAD. IABP placed. patient emergently intubated for acute hypoxic respiratory failure secondary to cardiogenic shock and pulmonary edema. started on milrinone at 0.375 mcg/kg/min and levophed. bumex drip started. remains critically ill. 02/07: Remains critically ill remains on Levophed and milrinone. Currently diuresing well with Bumex drip. IABP in place management per cardiology-good waveform and augmentation. Chest x-ray shows adequate positioning of IABP, diffuse bilateral pulmonary edema 02/08: Remains critical but showing some signs of improvement. Diuresing very well on Bumex infusion. Remains on Levophed and milrinone. IABP one-to-one with good augmentation management per cardiology. Chest x-ray shows improving edema but with persistent bilateral effusions. Will initiate weaning trials if tolerated 02/09: Still remains on pressors, unable to wean Levophed below 2 mcg/min. Milrinone currently on 0.375 mcg/kg/min. IABP removed yesterday. On sedation hold patient wakes up but remains lethargic. Weakly squeezes hand. Urine output excellent on Bumex, 4 L output in 24 hours. Will attempt CPAP today 02/10: Multiple episodes of V. fib V. tach arrest yesterday morning. Successfully resuscitated. Yesterday night had two-minute V. fib arrest return of spontaneous circulation in sinus rhythm after DC cardioversion 1. Currently remains on milrinone and low-dose Levophed. I will try to wean off Levophed introduce low-dose beta-rasheed due to recurrent arrhythmia. Keep potassium more than 4 magnesium more than 2 02/11: Patient still critical and cardiogenic shock requiring Levophed and milrinone. Urine output improved with adding Diamox. Approximately 2 L urine output in 24 hours, creatinine remained stable. Oxygenation slightly improved FiO2 reduced to 70% now. Overall prognosis remains poor family wants to continue aggressive care 02/12: Remains critical but slight improvement in oxygenation. But continues to require Levophed and milrinone the low-dose. Urine output remains adequate. Chest x-ray shows interval improvement. Creatinine remains stable to slightly improved. Add IV albumin to improve blood pressure and to promote diuresis. 02/13 Patient remains intubated and sedated with Versed and fentanyl. Afebrile, off Levophed remains on Milrinone and Heparin drip. 02/14: Hypothermic overnight. Remains on milrinone and heparin drips. Tolerating tube feeds at 20 cc now. Positive BM. No changes neurologically 02/15 Patient remains sedated with Versed and Fentanyl drips, on Milrinone 0.5. 02/16 Patient remains intubated sedated with Versed and Fentanyl infusion. On Milrinone and Heparin drips. CT brain yesterday showed no acute findings. Afebrile. 02/17 Patient remains sedated and intubated. Afebrile, On Milrinone and Heparin drip. 02/18: Remains critical continues to require milrinone. Urine output adequate. Chest x-ray shows bilateral infiltrate effusion. CT chest to better define effusions and infiltrate. Increase Bumex to 1 mg every 8 hours. Patient is persistently weak, will attempt SBT unlikely to be successfully extubated at this time. Most likely will need tracheostomy if family desires aggressive care 02/19: Remains intubated sedated with Versed and fentanyl. Transition to Precedex to facilitate weaning trials. Patient responding slightly more to verbal command, appears to track even though not following commands. Creatinine slightly increased with increased diuresis. Chest x-ray shows improved pleural effusions. CT chest yesterday did not show significant effusion but basilar consolidation. 02/20 Patient was extubated yesterday on 10L simple mask, on Precdex, Heparin and Milrinone drips. Tmax 101.1 yesterday 02/21: Febrile. Currently on 5 L nasal cannula. Continues on heparin drip with 500 units an hour. Received bumetanide 1 mg 1 today. Positive BM 02/22: Remains on 5 L nasal cannula. Remains on heparin drip. No changes neurologically remains medically stable. SUBJECTIVE: 02/23: Intubated early this morning secondary to acute respiratory failure. Blood pressure marginal likely due to sedation. Ejection fraction less than 20% . Discussed with at bedside. She was to proceed with tracheostomy in PEG tube placement. We will plan for within the next few days. 02/24: Remains sedated, orally intubated on mechanical ventilation. 02/25: Remains sedated, orally intubated on mechanical ventilation. Worsening renal function noted. Check UA, urine sodium and creatinine. Ordered Kayexalate for hyperkalemia and nephrology consulted. 02/26: Sedated, arousable, orally intubated on mechanical ventilation. Will hold Plavix for planned tracheostomy and PEG tube placement. Remains on heparin for anticoagulation. 02/27: Drowsy, arousable, orally intubated on mechanical ventilation. Awaiting tracheostomy and PEG tube placement. 02/28: Drowsy, arousable, remains orally intubated on mechanical ventilation. PEG tube scheduled for today. 03/01: Drowsy, arousable, remains orally intubated on mechanical ventilation. Underwent PEG tube placement on 02/28. Worsening thrombocytopenia noted and now down to 50,000. Will continue holding Plavix and heparin. Check HIT screen and consult hematology. Awaiting tracheostomy 03/02: Drowsy, arousable, remains orally intubated on mechanical vent relation. Hematology consult noted. 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 Objective Vital Signs / I&O: Vital Signs 03/01/18 13:00 03/01/18 13:30 03/01/18 14:00 Temperature Pulse Rate 78 78 81 Respiratory Rate 52 H 67 H 65 H Blood Pressure 119/67 104/61 108/65 Pulse Oximetry 99 03/01/18 14:30 03/01/18 15:00 03/01/18 15:30 Temperature Pulse Rate 81 89 93 H Respiratory Rate 71 H 55 H 46 H Blood Pressure 108/64 111/72 115/68 Pulse Oximetry 99 98 03/01/18 16:00 03/01/18 16:04 03/01/18 16:06 Temperature Pulse Rate 107 H 90 Respiratory Rate 21 15 19 Blood Pressure 121/84 Pulse Oximetry 98 100 03/01/18 16:30 03/01/18 17:00 03/01/18 17:30 Temperature 97.9 F Pulse Rate 92 H 90 89 Respiratory Rate 40 H 58 H 50 H Blood Pressure 112/70 116/72 113/73 Pulse Oximetry 95 98 98 03/01/18 18:00 03/01/18 20:00 03/01/18 21:33 Temperature 97.9 F Pulse Rate 79 69 66 Respiratory Rate 41 H 31 H 15 Blood Pressure 113/68 102/64 Pulse Oximetry 97 99 96 03/01/18 22:00 03/02/18 00:00 03/02/18 02:00 Temperature 97.9 F Pulse Rate 65 66 67 Respiratory Rate 30 H Blood Pressure 100/61 Pulse Oximetry 100 03/02/18 04:00 03/02/18 04:22 03/02/18 06:00 Temperature 97.6 F Pulse Rate 69 98 H 68 Respiratory Rate 33 H 15 Blood Pressure 101/63 Pulse Oximetry 97 98 03/02/18 07:00 03/02/18 08:00 03/02/18 08:48 Temperature Pulse Rate 69 Respiratory Rate 15 13 6 L Blood Pressure Pulse Oximetry 98 99 03/02/18 10:19 Temperature Pulse Rate Respiratory Rate 7 L Blood Pressure Pulse Oximetry 100 Intake & Output 03/01/18 03/02/18 03/02/18 18:59 06:59 18:59 Intake Total 2293.625 / 2293.625 1350 / 1350 Output Total 1050 / 1050 1050 / 1050 Balance 1243.625 / 1243.625 300 / 300 Weight 63 kg Intake: IV 1209.625 / 1209.625 700 / 700 Versed Inj 50 mg In 50 ml @ 2 50 / 50 MG/HR 2 mls/hr IV.CONT TITRATE PRN Rx#:[id number] Sodium Chloride 23.4% Inj 38.5 1009.625 / 1009.625 MEQ In Sterile Water for Inj 1, 000 ML @ 75 mls/hr IV.CONT . [id number] ADRIEN Rx#:[id number] Azactam Inj 1,000 MG In NS Inj 200 / 200 200 / 200 100 ML @ 200 mls/hr IV.SIG Q6H ADRIEN Rx#:[id number] Diflucan 200 mg Premix Bag 100 100 / 100 ML @ 100 mls/hr IV.SIG Q24H ADRIEN Rx#:[id number] Ancef Inj 1,000 MG In NS Inj 100 / 100 100 ML @ 200 mls/hr IV.SIG Q12H ADRIEN Rx#:[id number] fentaNYL 10 mcg/mL Premix Drip 250 / 250 2,500 mcg In 250 ml @ 50 MCG/HR 5 mls/hr IV.SIG TITRATE PRN Rx #:[id number] Tube Feeding 484 / 484 250 / 250 Water Bolus Amount 600 / 600 400 / 400 Output: Stool 50 / 50 200 / 200 Urine Amount (Catheter) 1000 / 1000 850 / 850 Indwelling Urethral Catheter 1000 / 1000 850 / 850 Other: Date of Last Bowel Movement 03/01/18 03/01/18 03/01/18 Result Diagrams: 03/02/18 05:00 03/02/18 05:00 Objective Remarks: GENERAL: 62-year-old male lying in bed in NAD orotracheally intubated SKIN: cool and poorly perfused. HEAD: Atraumatic. Normocephalic. EYES: Pupils equal and round, 2 mm and reactive. No injection or drainage. ENT: No nasal bleeding or discharge. Orotracheally intubated. NG tube in right nares NECK: Trachea midline. Supple, no JVD, no adenopathy/thyromegaly. Left IJ is clean dry and intact CARDIOVASCULAR: RRR. S1, S2. No S4. No murmurs rubs or gallops. RESPIRATORY: Orally intubated on mechanical ventilation, b/L equal air entry. Bilateral rhonchorous breath sounds. GASTROINTESTINAL: Abdomen soft, non-tender, nondistended. no guarding. MUSCULOSKELETAL: Extremities with trace bilateral lower extremity edema NEUROLOGICAL: Sedated, arousable, orally intubated, no focal musculoskeletal or sensory deficits Assessment and Plan - Assessment and Plan Plan: NEURO/PSYCH: History of stroke in 2015 Neuropathy left upper and lower extremity Chronic low back pain Acetaminophen 650 every 6 hours as needed fever 02/15 CT brain: No acute findings. 02/15 EEG : Encephalopathy, no epileptiform activity MRI brain 02/16: New small focal acute infarction right cerebral vertex and also left cerebral vertex. Neuro has followed. Continue ASA 81 mg daily. Continue pregabalin 150 mg p.o. twice daily. Hold duloxetine 90 mg p.o. daily. RESP: Acute hypoxic respiratory failure COPD on 2.5 L home O2 currently on 5 L Prior tobacco abuse Bilateral pleural effusions PRVC 18/500/07/22/39. Daily CPAP trials. Will attempt extubation today, otherwise he needs a tracheostomy due to multiple extubation failures. Albuterol/ipratropium aerosols every 4 hours with albuterol aerosols every 2 hours as needed for dyspnea methylprednisolone succinate 40mg IV daily CV: V. tach/V. fib arrest NSTEMI Cardiogenic shock Acute systolic heart failure Atrial fibrillation with RVR [place] mechanical aortic valve (09/21/12 Dr. Gonzalez) s/p Tricuspid annuloplasty Discontinued milrinone 0.25 mgc/kg/min 02/21 Monitor HR and BP keep MAP>65mmHg s/p cath And PCI -proximal LAD and large diagonal 90% stenosis, 2 BMS stent 02/05, mid LAD vasospasm post PCI Continue aspirin 81 mg daily, Hold clopidogrel starting 02/26 for trach/ PEG, amiodarone 400mg TID, carvedilol 3.125mg BID Bumetanide 1mg IV q8h, reduce to 1 mg IV q24. discontinued today 02/21. Stop Spironolactone in v/o hyperkalemia on 02/25 Heparin drip. PTT therapeutic. Continue atorvastatin 40 mg nightly. Off IABP CAMERON 01/23/18no vegetation. Normal aortic mechanical valve with trivial aortic insufficiency. Tricuspid annuloplasty. Mild to moderate LV generalized hypokinesis Echo from 02/05: EF <20%, diffuse hypokinesis, bioprosthetic valve Outside Sales is Romana Bartlett GI: Moderate protein calorie malnutrition with hypoalbuminemia Jevity 1.5, Goal 50 cc an hour Lansoprazole for stress ulcer prophylactic Had normal EGD on 10/21/17 FEN/RENAL: BPH Acute kidney injury-worsening Hypopotassemia Hypernatremia Cano due to aggressive diuresis. close monitoring of uop Monitor renal function, I/O's, Renal ultrasound to evaluate for evidence of obstruction -did not show any obstruction Discontinued bumetanide 1mg IV daily , spironolactone 25 mg twice daily stopped on 02/25 due to hyperkalemia and worsening renal function.. Hold tamsulosin 0.4 mg daily for now Nephrology eval for SHARON with worsening BUN/creatinine noted. 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 difficile colitis PICC removed Discontinue IV vancomycin and gentamicin 02/20. Cefepime IV discontinued on 03/01 and patient started on aztreonam and Ancef IV. C.diff tx: po vanco 02/11/18. 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 Received 2 units packed red cells in [place] [facility] due to anemia and shock. Monitor CBC. Continue holding Plavix and heparin. Hematology consulted for worsening thrombocytopenia. 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 Will be started on Argatroban drip per hematology. Protonix for stress ulcer prophylaxis ACCESS: Left IJ central line placed 02/05/18. Palliative care is following Level 3 Dr[address] Quintana discussed with at bedside on 02/23. Request continued aggressive care with tracheostomy if needed and PEG tube placement.
--- NOTE | 2018-03-02 13:17 | P.PNONC ---
Subjective Interval history: Afebrile Patient resting in bed on CPAP. 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 Reportedly having a trach placed tomorrow HIT panel came back positive Objective Vital Signs/Intake & Output: Vital Signs 03/01/18 13:30 03/01/18 14:00 03/01/18 14:30 Temperature Pulse Rate 78 81 81 Respiratory Rate 67 H 65 H 71 H Blood Pressure 104/61 108/65 108/64 Pulse Oximetry 99 03/01/18 15:00 03/01/18 15:30 03/01/18 16:00 Temperature Pulse Rate 89 93 H 107 H Respiratory Rate 55 H 46 H 21 Blood Pressure 111/72 115/68 121/84 Pulse Oximetry 98 98 03/01/18 16:04 03/01/18 16:06 03/01/18 16:30 Temperature 97.9 F Pulse Rate 90 92 H Respiratory Rate 15 19 40 H Blood Pressure 112/70 Pulse Oximetry 100 95 03/01/18 17:00 03/01/18 17:30 03/01/18 18:00 Temperature Pulse Rate 90 89 79 Respiratory Rate 58 H 50 H 41 H Blood Pressure 116/72 113/73 113/68 Pulse Oximetry 98 98 97 03/01/18 20:00 03/01/18 21:33 03/01/18 22:00 Temperature 97.9 F Pulse Rate 69 66 65 Respiratory Rate 31 H 15 Blood Pressure 102/64 Pulse Oximetry 99 96 03/02/18 00:00 03/02/18 02:00 03/02/18 04:00 Temperature 97.9 F 97.6 F Pulse Rate 66 67 69 Respiratory Rate 30 H 33 H Blood Pressure 100/61 101/63 Pulse Oximetry 100 97 03/02/18 04:22 03/02/18 06:00 03/02/18 07:00 Temperature Pulse Rate 98 H 68 69 Respiratory Rate 15 15 Blood Pressure Pulse Oximetry 98 03/02/18 08:00 03/02/18 08:48 03/02/18 10:19 Temperature Pulse Rate Respiratory Rate 13 6 L 7 L Blood Pressure Pulse Oximetry 98 99 100 Intake & Output 03/01/18 03/02/18 03/02/18 18:59 06:59 18:59 Intake Total 2293.625 / 2293.625 1350 / 1350 Output Total 1050 / 1050 1050 / 1050 Balance 1243.625 / 1243.625 300 / 300 Weight 138 lb 14.259 oz Intake: IV 1209.625 / 1209.625 700 / 700 Versed Inj 50 mg In 50 ml @ 2 50 / 50 MG/HR 2 mls/hr IV.CONT TITRATE PRN Rx#:[id number] Sodium Chloride 23.4% Inj 38.5 1009.625 / 1009.625 MEQ In Sterile Water for Inj 1, 000 ML @ 75 mls/hr IV.CONT . [id number] DENAE Rx#:[id number] Azactam Inj 1,000 MG In NS Inj 200 / 200 200 / 200 100 ML @ 200 mls/hr IV.SIG Q6H DENAE Rx#:[id number] Diflucan 200 mg Premix Bag 100 100 / 100 ML @ 100 mls/hr IV.SIG Q24H DENAE Rx#:[id number] Ancef Inj 1,000 MG In NS Inj 100 / 100 100 ML @ 200 mls/hr IV.SIG Q12H [facility] Rx#:[id number] fentaNYL 10 mcg/mL Premix Drip 250 / 250 2,500 mcg In 250 ml @ 50 MCG/HR 5 mls/hr IV.SIG TITRATE PRN Rx #:[id number] Tube Feeding 484 / 484 250 / 250 Water Bolus Amount 600 / 600 400 / 400 Output: Stool 50 / 50 200 / 200 Urine Amount (Catheter) 1000 / 1000 850 / 850 Indwelling Urethral Catheter 1000 / 1000 850 / 850 Other: Date of Last Bowel Movement 03/01/18 03/01/18 03/01/18 Result Diagrams: 03/02/18 05:00 03/02/18 05:00 Laboratory Results: Laboratory Results - last 24 hr 03/01/18 03/01/18 03/01/18 13:06 16:40 21:15 WBC RBC Hgb Hct MCV MCH MCHC RDW Plt Count MPV Prelim Diff (Auto) Neut % (Auto) Lymph % (Auto) [place] % (Auto) Eos % (Auto) Baso % (Auto) Neut # (Auto) Lymph # (Auto) [place] # (Auto) Eos # (Auto) Baso # (Auto) WBC Differential Diff Scan Differential Comment Hypersegmented Neuts Platelet Estimate Platelet Morphology Ovalocytes Keratocytes Smear Path Review PT INR APTT Fibrinogen Sodium Potassium Chloride Carbon Dioxide Anion Gap BUN Creatinine Estimated GFR POC Glucose 225 H Random Glucose Calcium Prot Corrected Calcium Phosphorus Iron TIBC % Saturation Ferritin Total Protein Albumin Vitamin B12 Folate Heparin Dep Plt Ab OD 1.646 H Hep-Induced Plt Ab [place] Positive H 03/01/18 03/01/18 03/02/18 21:15 21:15 00:16 WBC RBC Hgb Hct MCV MCH MCHC RDW Plt Count MPV Prelim Diff (Auto) Neut % (Auto) Lymph % (Auto) [place] % (Auto) Eos % (Auto) Baso % (Auto) Neut # (Auto) Lymph # (Auto) [place] # (Auto) Eos # (Auto) Baso # (Auto) WBC Differential Diff Scan Differential Comment Hypersegmented Neuts Platelet Estimate Platelet Morphology Ovalocytes Keratocytes Smear Path Review PT 14.2 H INR 1.4 APTT 31.7 H Fibrinogen 320 Sodium Potassium Chloride Carbon Dioxide Anion Gap BUN Creatinine Estimated GFR POC Glucose 201 H Random Glucose Calcium Prot Corrected Calcium Phosphorus Iron 29 L TIBC 126 L % Saturation 23.0 Ferritin 880 H Total Protein Albumin Vitamin B12 1277 H Folate 19.4 H Heparin Dep Plt Ab OD Hep-Induced Plt Ab [place] 03/02/18 03/02/18 03/02/18 05:00 05:00 05:25 WBC 7.7 RBC 2.47 L Hgb 7.9 L Hct 24.0 L MCV 96.9 MCH 31.9 MCHC 32.9 RDW 19.7 H Plt Count 43 L MPV 11.0 Prelim Diff (Auto) Slide review pending Neut % (Auto) 88.5 H Lymph % (Auto) 6.6 L [place] % (Auto) 4.6 Eos % (Auto) 0.2 Baso % (Auto) 0.1 Neut # (Auto) 6.8 Lymph # (Auto) 0.5 L [place] # (Auto) 0.4 Eos # (Auto) 0.0 Baso # (Auto) 0.0 WBC Differential . Diff Scan Auto diff confirmed Differential Comment . Hypersegmented Neuts 1+ H Platelet Estimate Low L Platelet Morphology Normal Ovalocytes 1+ H Keratocytes Occ H Smear Path Review PT INR APTT Fibrinogen Sodium 144 Potassium 3.9 Chloride 113 H Carbon Dioxide 20.6 L Anion Gap 10 BUN 79 H Creatinine 2.40 H Estimated GFR 27 L POC Glucose 137 H Random Glucose 146 H Calcium 7.3 L* Prot Corrected Calcium 8.2 L Phosphorus 4.6 Iron TIBC % Saturation Ferritin Total Protein 5.4 L Albumin 2.0 L Vitamin B12 Folate Heparin Dep Plt Ab OD Hep-Induced Plt Ab [place] 03/02/18 12:01 WBC RBC Hgb Hct MCV MCH MCHC RDW Plt Count MPV Prelim Diff (Auto) Neut % (Auto) Lymph % (Auto) [place] % (Auto) Eos % (Auto) Baso % (Auto) Neut # (Auto) Lymph # (Auto) [place] # (Auto) Eos # (Auto) Baso # (Auto) WBC Differential Diff Scan Differential Comment Hypersegmented Neuts Platelet Estimate Platelet Morphology Ovalocytes Keratocytes Smear Path Review PT INR APTT Fibrinogen Sodium Potassium Chloride Carbon Dioxide Anion Gap BUN Creatinine Estimated GFR POC Glucose 114 H Random Glucose Calcium Prot Corrected Calcium Phosphorus Iron TIBC % Saturation Ferritin Total Protein Albumin Vitamin B12 Folate Heparin Dep Plt Ab OD Hep-Induced Plt Ab [place] Culture Results: Microbiology 02/27/18 02:28 Aerobic Blood Culture - Preliminary Blood - Peripheral No growth in 3 days Anaerobic Blood Culture - Preliminary No growth in 3 days 02/27/18 02:20 Aerobic Blood Culture - Preliminary Blood - Peripheral No growth in 3 days Anaerobic Blood Culture - Preliminary No growth in 3 days 02/25/18 13:20 Urine Culture - Final Catheterized Urine Kaylen tropicalis Medications: Active Medications Generic Name Dose Route Start Last Admin Trade Name Freq PRN Reason Stop Dose Admin Acetaminophen 650 mg 02/14/18 09:23 02/19/18 15:18 Tylenol Liq PO 650 mg Q6H PRN Administration FEVER Albuterol 1 ampul 02/26/18 22:00 03/02/18 08:25 Duoneb Neb (Denae) NEB 1 ampul Q6HR NEB DENAE Administration Albuterol 2.5 mg 02/05/18 00:00 02/09/18 21:20 Albuterol Neb (Prn) NEB 2.5 mg Q2HR NEB PRN Administration SHORTNESS OF BREATH/WHEEZING Amiodarone HCl 400 mg 02/11/18 12:00 03/02/18 08:40 Cordarone G-TUBE 400 mg BID DENAE Administration Artificial Tears 1 drops 02/14/18 21:00 03/02/18 08:40 Genteal Severe Dry Eye Relief 0.3% Opth Gel EACH EYE 1 drops BID DENAE Administration Ascorbic Acid 500 mg 02/15/18 09:00 03/02/18 08:39 Vitamin C NG/OG 500 mg DAILY DENAE Administration Aspirin 81 mg 02/06/18 09:00 03/01/18 08:30 Aspirin Chew PO 81 mg DAILY DENAE Administration Atorvastatin Calcium 40 mg 02/05/18 21:00 03/01/18 20:47 Lipitor PO 40 mg HS DENAE Administration Chlorhexidine Gluconate 15 ml 02/06/18 08:00 03/02/18 08:39 Peridex 0.12% Oral Kit OROPHARYNG 15 ml BID@0800,2000 DENAE Administration Clopidogrel Bisulfate 75 mg 02/06/18 09:00 02/25/18 09:13 Plavix PO 75 mg DAILY DENAE Administration Dextrose 50 ml 02/13/18 09:27 03/01/18 06:02 D50w Vial IV.PUSH 50 ml UNSCH PRN Administration PER HYPOGLYCEMIA PROTOCOL Digoxin 250 mcg 02/07/18 09:00 02/11/18 15:41 Lanoxin Inj IV.PUSH Not Given DAILY [facility] Duloxetine HCl 90 mg 02/05/18 09:00 02/11/18 11:18 Cymbalta PO Not Given DAILY [facility] Ferrous Sulfate 300 mg 02/15/18 09:00 03/02/18 08:41 Ferrrous Sulfate Liq PO 300 mg DAILY DENAE Administration Midazolam HCl 50 mg in 50 mls @ 2 mls/hr 02/23/18 05:46 03/02/18 04:57 Versed Inj IV.CONT 5 mg/hr TITRATE PRN 5 mls/hr Per Protocol Administration Protocol 2 MG/HR Fentanyl 2,500 mcg in 250 mls @ 5 mls/hr 02/23/18 12:12 03/02/18 04:57 Fentanyl 10 Mcg/Ml Premix Drip IV.SIG 100 mcg/hr TITRATE PRN 10 mls/hr Per Protocol Administration Protocol 50 MCG/HR Sodium Chloride 38.5 meq/ 1,009.625 mls @ 75 mls/hr 02/25/18 17:00 03/02/18 06:04 Sterile Water IV.CONT Not Given .[id number] DENAE Fluconazole 100 mls @ 100 mls/hr 02/27/18 00:00 03/01/18 23:41 Diflucan 200 Mg Premix Bag IV.SIG 100 mls/hr Q24H DENAE Administration Aztreonam 1,000 mg/ Sodium 100 mls @ 200 mls/hr 02/28/18 20:00 03/02/18 08:39 Chloride IV.SIG 200 mls/hr Q6H DENAE Administration Cefazolin Sodium 1,000 mg/ 100 mls @ 200 mls/hr 02/28/18 19:00 03/02/18 06:03 Sodium Chloride IV.SIG 200 mls/hr Q12H DENAE Administration Insulin Aspart 0 unit 02/13/18 12:00 03/02/18 05:25 Novolog Insulin Correctional Sugar Inj SQ Not Given Q6HR [facility] Protocol Lactulose 30 ml 02/05/18 00:00 02/05/18 08:38 Lactulose Liq PO 30 ml DAILY PRN Administration [employer] Lansoprazole 30 mg 02/15/18 09:00 03/02/18 08:39 Prevacid Solutab NG/OG 30 mg DAILY DENAE Administration Methylprednisolone Sodium Succinate 40 mg 02/20/18 09:00 03/02/18 08:41 Solumedrol Inj IV.PUSH 40 mg DAILY DENAE Administration Multivitamins 1 tab 02/05/18 09:00 03/02/18 08:40 Theragran PO 1 tab DAILY DENAE Administration Potassium Chloride 20 meq 02/14/18 09:00 02/25/18 20:39 Kcl G-TUBE Not Given BID DENAE Pregabalin 150 mg 02/04/18 23:50 03/02/18 08:39 Lyrica PO 150 mg BID DENAE Administration Senna/Docusate Sodium 1 tab 02/05/18 09:00 03/02/18 08:40 Linda-Colace PO 1 tab BID DENAE Administration Sodium Chloride 2 ml 02/05/18 09:00 03/02/18 08:40 Ns Flush IV.FLUSH 2 ml BID DENAE Administration Sterile Water 0 ml 02/24/18 16:00 03/02/18 08:39 Free Water G-TUBE 200 ml Q4HR DENAE Administration Vancomycin HCl 500 mg 02/11/18 16:00 03/02/18 05:00 Vancomycin Po G-TUBE 500 mg Q6HR DENAE Administration Whey 1 packet 02/08/18 13:00 03/02/18 08:41 Beneprotein Powder G-TUBE 1 packet TID DENAE Administration Objective Remarks: GENERAL: Chronically ill-appearing older male resting in bed in no obvious distress SKIN: Warm and dry. HEAD: Normocephalic. EYES: No scleral icterus. No injection or drainage. NECK: Supple, trachea midline. No JVD or lymphadenopathy. CARDIOVASCULAR: Regular rate and rhythm without murmurs. RESPIRATORY: Clear anteriorly. Patient on 35% FiO2 CPAP trial. GASTROINTESTINAL: Abdomen soft, non-tender, nondistended. EXTREMITIES: No cyanosis MUSCULOSKELETAL: Generalized weakness NEUROLOGICAL: Intubated. Patient not interacting during exam. Assessment/Plan - Plan 62-year-old male admitted to the hospital in late January for fever and hypotension. He was found to have septic shock. He has C. difficile colitis. Hematology consulted for thrombocytopenia. 1. The patient's B12 and folate are elevated. Erythropoietin level is pending. His anemia studies are difficult to decipher however he does likely have some degree of deficiency. 2. Thrombocytopenia persists. He is not having any bleeding. 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 Closely monitor liver functions. Monitor APTT. 3. Recommend transfusing platelets prior to trach placement tomorrow. Continue to hold Plavix. 4. CBC, CMP and APTT in a.m. - Attending Statement The exam, history, and the medical decision-making described in the above note were completed with the assistance of the mid-level provider. I reviewed and agree with the findings presented. I attest that I had a [id number] encounter with the patient on the same day, and personally performed and documented my assessment and findings in the medical record. Pt is intubated and sedated. No report of bleeding. HIT ab positive. Platelet down to 43. Stop all heparin products and check RITA. Start argatroban and monitor for sign of bleeding. Await tracheostomy tomorrow and recommend platelet transfusion if platelet<70k. Continue to monitor CBC.
--- NOTE | 2018-03-02 14:13 | P.PNPAL ---
Reason for Visit Reason for visit: a. To assist with evaluation and management of symptoms including: pain, dyspnea, weakness b. To assist medical decision maker(s) with: better understanding of current medical conditions; weighing benefits/burdens of medical treatment options; making medical treatment decisions. Subjective Subjective/Interval History: Pt in bed, intubated on vent. s/p PEG tube placement. TF running. Still with loose stool. Now with fungiuria. WBC WNL. Hematology consulted for worsening thrombocytopenia, pt HIT positive, starting argatroban. PLT 43 today. tracheostomy on hold d/t low platelets. CPAP trials ongoing. Pt on CPAP currently. Tolerated yesterday for 9 h. Appears comfortable. No sign agitation or pain. does not follow commands. Eyes open but not tracking. Family/Friend Interactions: at bedside. Provided medical update, reviewed scenarios with ongoing aggressive care. She feels he is improving. She is frustrated that the tracheostomy was put off. Goals remain aggressive. Objective Vital Signs: Vital Signs 03/01/18 14:30 03/01/18 15:00 03/01/18 15:30 Temperature Pulse Rate 81 89 93 H Respiratory Rate 71 H 55 H 46 H Blood Pressure 108/64 111/72 115/68 Pulse Oximetry 99 98 03/01/18 16:00 03/01/18 16:04 03/01/18 16:06 Temperature Pulse Rate 107 H 90 Respiratory Rate 21 15 19 Blood Pressure 121/84 Pulse Oximetry 98 100 03/01/18 16:30 03/01/18 17:00 03/01/18 17:30 Temperature 97.9 F Pulse Rate 92 H 90 89 Respiratory Rate 40 H 58 H 50 H Blood Pressure 112/70 116/72 113/73 Pulse Oximetry 95 98 98 03/01/18 18:00 03/01/18 20:00 03/01/18 21:33 Temperature 97.9 F Pulse Rate 79 69 66 Respiratory Rate 41 H 31 H 15 Blood Pressure 113/68 102/64 Pulse Oximetry 97 99 96 03/01/18 22:00 03/02/18 00:00 03/02/18 02:00 Temperature 97.9 F Pulse Rate 65 66 67 Respiratory Rate 30 H Blood Pressure 100/61 Pulse Oximetry 100 03/02/18 04:00 03/02/18 04:22 03/02/18 06:00 Temperature 97.6 F Pulse Rate 69 98 H 68 Respiratory Rate 33 H 15 Blood Pressure 101/63 Pulse Oximetry 97 98 03/02/18 07:00 03/02/18 08:00 03/02/18 08:48 Temperature Pulse Rate 69 Respiratory Rate 15 13 6 L Blood Pressure Pulse Oximetry 98 99 03/02/18 10:19 03/02/18 13:25 03/02/18 13:56 Temperature Pulse Rate Respiratory Rate 7 L 16 17 Blood Pressure Pulse Oximetry 100 97 97 Intake & Output 03/01/18 03/02/18 03/02/18 18:59 06:59 18:59 Intake Total 2293.625 / 2293.625 1350 / 1350 Output Total 1050 / 1050 1050 / 1050 Balance 1243.625 / 1243.625 300 / 300 Weight 63 kg Intake: IV 1209.625 / 1209.625 700 / 700 Versed Inj 50 mg In 50 ml @ 2 50 / 50 MG/HR 2 mls/hr IV.CONT TITRATE PRN Rx#:[id number] Sodium Chloride 23.4% Inj 38.5 1009.625 / 1009.625 MEQ In Sterile Water for Inj 1, 000 ML @ 75 mls/hr IV.CONT . [id number] ADRIEN Rx#:[id number] Azactam Inj 1,000 MG In NS Inj 200 / 200 200 / 200 100 ML @ 200 mls/hr IV.SIG Q6H ADRIEN Rx#:[id number] Diflucan 200 mg Premix Bag 100 100 / 100 ML @ 100 mls/hr IV.SIG Q24H ADRIEN Rx#:[id number] Ancef Inj 1,000 MG In NS Inj 100 / 100 100 ML @ 200 mls/hr IV.SIG Q12H ADRIEN Rx#:[id number] fentaNYL 10 mcg/mL Premix Drip 250 / 250 2,500 mcg In 250 ml @ 50 MCG/HR 5 mls/hr IV.SIG TITRATE PRN Rx #:[id number] Tube Feeding 484 / 484 250 / 250 Water Bolus Amount 600 / 600 400 / 400 Output: Stool 50 / 50 200 / 200 Urine Amount (Catheter) 1000 / 1000 850 / 850 Indwelling Urethral Catheter 1000 / 1000 850 / 850 Other: Date of Last Bowel Movement 03/01/18 03/01/18 03/01/18 Physical Exam: CONSTITUTIONAL/GENERAL: ill appearing and cachectic male SKIN: Sallow. No jaundice, rashes, or lesions. No wounds seen anteriorly. Not diaphoretic. HEAD: Atraumatic. Normocephalic. + temporal wasting EYES: No scleral icterus. Fundi not examined. ENT: Nose without bleeding or purulent drainage. dark spots CARDIOVASCULAR:RRR without murmurs, gallops, or rubs. + click. RESPIRATORY/CHEST: Symmetric, unlabored respirations. lung sounds diminished. + rhonchi GASTROINTESTINAL: Abdomen soft, mildly distended, TTP. No hepato-splenomegaly, or palpable masses. Bowel sounds faint. +rectal bag with stool GENITOURINARY: Without palpable bladder distension. Cano catheter in place. MUSCULOSKELETAL: Extremities without clubbing, cyanosis. No mottling or clubbing. NEUROLOGICAL: sedated on vent Diagnostic Tests Laboratory: Laboratory Results - last 72 hr 02/25/18 02/27/18 02/27/18 13:20 17:16 23:44 WBC RBC Hgb Hct MCV MCH MCHC RDW Plt Count MPV Prelim Diff (Auto) Neut % (Auto) Lymph % (Auto) Stone % (Auto) Eos % (Auto) Baso % (Auto) Neut # (Auto) Lymph # (Auto) Stone # (Auto) Eos # (Auto) Baso # (Auto) WBC Differential Diff Scan Differential Comment Hypersegmented Neuts Platelet Estimate Platelet Morphology Ovalocytes Keratocytes Smear Path Review PT INR APTT Fibrinogen Sodium Potassium Chloride Carbon Dioxide Anion Gap BUN Creatinine Estimated GFR POC Glucose 172 H 193 H Random Glucose Calcium Prot Corrected Calcium Phosphorus Iron TIBC % Saturation Ferritin Total Protein Albumin Vitamin B12 Folate Urine Color [place] Urine Clarity Cloudy H Urine pH 5.0 Ur Specific [place] 1.017 Urine Protein 100 H Urine Glucose (UA) 50 Urine Ketones Negative Urine Occult Blood Large H Urine Nitrate Negative Urine Bilirubin Negative Urine Urobilinogen Less than 2 Ur Leukocyte Esterase Large H Urine RBC 161 H Urine WBC Ur Squamous Epith Cells 1 Urine Bacteria Moderate H Urine Mucus Few H Urine Yeast Many H Micro UA Comment Cath-culture ind Urine Culture Comments Cath-cult indicated Random Vancomycin Heparin Dep Plt Ab OD Hep-Induced Plt Ab [place] 02/28/18 02/28/18 02/28/18 04:58 05:39 08:48 WBC 7.5 RBC 2.22 L Hgb 7.0 L Hct 21.1 L MCV 95.2 MCH 31.6 MCHC 33.2 RDW 19.7 H Plt Count 52 L D MPV 11.1 H Prelim Diff (Auto) Slide review pending Neut % (Auto) 91.0 H Lymph % (Auto) 5.0 L Stone % (Auto) 3.4 Eos % (Auto) 0.5 Baso % (Auto) 0.1 Neut # (Auto) 6.8 Lymph # (Auto) 0.4 L Stone # (Auto) 0.3 Eos # (Auto) 0.0 Baso # (Auto) 0.0 WBC Differential . Diff Scan Auto diff confirmed Differential Comment . Hypersegmented Neuts Platelet Estimate Low L Platelet Morphology Normal Ovalocytes 1+ H Keratocytes Smear Path Review PT INR APTT Fibrinogen Sodium Potassium Chloride Carbon Dioxide Anion Gap BUN Creatinine Estimated GFR POC Glucose 139 H 103 Random Glucose Calcium Prot Corrected Calcium Phosphorus Iron TIBC % Saturation Ferritin Total Protein Albumin Vitamin B12 Folate Urine Color Urine Clarity Urine pH Ur Specific [place] Urine Protein Urine Glucose (UA) Urine Ketones Urine Occult Blood Urine Nitrate Urine Bilirubin Urine Urobilinogen Ur Leukocyte Esterase Urine RBC Urine WBC Ur Squamous Epith Cells Urine Bacteria Urine Mucus Urine Yeast Micro UA Comment Urine Culture Comments Random Vancomycin Heparin Dep Plt Ab OD Hep-Induced Plt Ab [place] 02/28/18 02/28/18 03/01/18 11:36 17:40 00:00 WBC RBC Hgb Hct MCV MCH MCHC RDW Plt Count MPV Prelim Diff (Auto) Neut % (Auto) Lymph % (Auto) Stone % (Auto) Eos % (Auto) Baso % (Auto) Neut # (Auto) Lymph # (Auto) Stone # (Auto) Eos # (Auto) Baso # (Auto) WBC Differential Diff Scan Differential Comment Hypersegmented Neuts Platelet Estimate Platelet Morphology Ovalocytes Keratocytes Smear Path Review PT INR APTT Fibrinogen Sodium Potassium Chloride Carbon Dioxide Anion Gap BUN Creatinine Estimated GFR POC Glucose 87 110 126 H Random Glucose Calcium Prot Corrected Calcium Phosphorus Iron TIBC % Saturation Ferritin Total Protein Albumin Vitamin B12 Folate Urine Color Urine Clarity Urine pH Ur Specific [place] Urine Protein Urine Glucose (UA) Urine Ketones Urine Occult Blood Urine Nitrate Urine Bilirubin Urine Urobilinogen Ur Leukocyte Esterase Urine RBC Urine WBC Ur Squamous Epith Cells Urine Bacteria Urine Mucus Urine Yeast Micro UA Comment Urine Culture Comments Random Vancomycin Heparin Dep Plt Ab OD Hep-Induced Plt Ab [place] 03/01/18 03/01/1818 05:24 06:08 06:28 WBC RBC Hgb Hct MCV MCH MCHC RDW Plt Count MPV Prelim Diff (Auto) Neut % (Auto) Lymph % (Auto) Stone % (Auto) Eos % (Auto) Baso % (Auto) Neut # (Auto) Lymph # (Auto) Stone # (Auto) Eos # (Auto) Baso # (Auto) WBC Differential Diff Scan Differential Comment Hypersegmented Neuts Platelet Estimate Platelet Morphology Ovalocytes Keratocytes Smear Path Review PT INR APTT Fibrinogen Sodium Potassium Chloride Carbon Dioxide Anion Gap BUN Creatinine 2.61 H Estimated GFR 25 L POC Glucose 70 168 H Random Glucose Calcium Prot Corrected Calcium Phosphorus Iron TIBC % Saturation Ferritin Total Protein Albumin Vitamin B12 Folate Urine Color Urine Clarity Urine pH Ur Specific [place] Urine Protein Urine Glucose (UA) Urine Ketones Urine Occult Blood Urine Nitrate Urine Bilirubin Urine Urobilinogen Ur Leukocyte Esterase Urine RBC Urine WBC Ur Squamous Epith Cells Urine Bacteria Urine Mucus Urine Yeast Micro UA Comment Urine Culture Comments Random Vancomycin 17.9 Heparin Dep Plt Ab OD Hep-Induced Plt Ab [place] 03/01/18 03/01/18 03/01/18 10:00 12:01 13:06 WBC RBC Hgb Hct MCV MCH MCHC RDW Plt Count MPV Prelim Diff (Auto) Neut % (Auto) Lymph % (Auto) Stone % (Auto) Eos % (Auto) Baso % (Auto) Neut # (Auto) Lymph # (Auto) Stone # (Auto) Eos # (Auto) Baso # (Auto) WBC Differential Diff Scan Differential Comment Hypersegmented Neuts Platelet Estimate Platelet Morphology Ovalocytes Keratocytes Smear Path Review PT INR APTT Fibrinogen Sodium 146 H Potassium 4.4 Chloride 114 H Carbon Dioxide 20.4 L Anion Gap 12 BUN 88 H Creatinine 2.58 H Estimated GFR 25 L POC Glucose 94 Random Glucose 107 H Calcium 7.9 L Prot Corrected Calcium Phosphorus Iron TIBC % Saturation Ferritin Total Protein Albumin Vitamin B12 Folate Urine Color Urine Clarity Urine pH Ur Specific [place] Urine Protein Urine Glucose (UA) Urine Ketones Urine Occult Blood Urine Nitrate Urine Bilirubin Urine Urobilinogen Ur Leukocyte Esterase Urine RBC Urine WBC Ur Squamous Epith Cells Urine Bacteria Urine Mucus Urine Yeast Micro UA Comment Urine Culture Comments Random Vancomycin Heparin Dep Plt Ab OD 1.646 H Hep-Induced Plt Ab [place] Positive H 08/15/18 08/15/18 08/15/18 16:40 21:15 21:15 WBC RBC Hgb Hct MCV MCH MCHC RDW Plt Count MPV Prelim Diff (Auto) Neut % (Auto) Lymph % (Auto) Stone % (Auto) Eos % (Auto) Baso % (Auto) Neut # (Auto) Lymph # (Auto) Stone # (Auto) Eos # (Auto) Baso # (Auto) WBC Differential Diff Scan Differential Comment Hypersegmented Neuts Platelet Estimate Platelet Morphology Ovalocytes Keratocytes Smear Path Review PT 14.2 H INR 1.4 APTT 31.7 H Fibrinogen 320 Sodium Potassium Chloride Carbon Dioxide Anion Gap BUN Creatinine Estimated GFR POC Glucose 225 H Random Glucose Calcium Prot Corrected Calcium Phosphorus Iron TIBC % Saturation Ferritin Total Protein Albumin Vitamin B12 Folate Urine Color Urine Clarity Urine pH Ur Specific [place] Urine Protein Urine Glucose (UA) Urine Ketones Urine Occult Blood Urine Nitrate Urine Bilirubin Urine Urobilinogen Ur Leukocyte Esterase Urine RBC Urine WBC Ur Squamous Epith Cells Urine Bacteria Urine Mucus Urine Yeast Micro UA Comment Urine Culture Comments Random Vancomycin Heparin Dep Plt Ab OD Hep-Induced Plt Ab [place] 03/01/18 03/02/18 03/02/18 21:15 00:16 05:00 WBC RBC Hgb Hct MCV MCH MCHC RDW Plt Count MPV Prelim Diff (Auto) Neut % (Auto) Lymph % (Auto) Stone % (Auto) Eos % (Auto) Baso % (Auto) Neut # (Auto) Lymph # (Auto) Stone # (Auto) Eos # (Auto) Baso # (Auto) WBC Differential Diff Scan Differential Comment Hypersegmented Neuts Platelet Estimate Platelet Morphology Ovalocytes Keratocytes Smear Path Review PT INR APTT Fibrinogen Sodium 144 Potassium 3.9 Chloride 113 H Carbon Dioxide 20.6 L Anion Gap 10 BUN 79 H Creatinine 2.40 H Estimated GFR 27 L POC Glucose 201 H Random Glucose 146 H Calcium 7.3 L* Prot Corrected Calcium 8.2 L Phosphorus 4.6 Iron 29 L TIBC 126 L % Saturation 23.0 Ferritin 880 H Total Protein 5.4 L Albumin 2.0 L Vitamin B12 1277 H Folate 19.4 H Urine Color Urine Clarity Urine pH Ur Specific [place] Urine Protein Urine Glucose (UA) Urine Ketones Urine Occult Blood Urine Nitrate Urine Bilirubin Urine Urobilinogen Ur Leukocyte Esterase Urine RBC Urine WBC Ur Squamous Epith Cells Urine Bacteria Urine Mucus Urine Yeast Micro UA Comment Urine Culture Comments Random Vancomycin Heparin Dep Plt Ab OD Hep-Induced Plt Ab [place] 03/02/18 03/02/18 03/02/18 05:00 05:25 12:01 WBC 7.7 RBC 2.47 L Hgb 7.9 L Hct 24.0 L MCV 96.9 MCH 31.9 MCHC 32.9 RDW 19.7 H Plt Count 43 L MPV 11.0 Prelim Diff (Auto) Slide review pending Neut % (Auto) 88.5 H Lymph % (Auto) 6.6 L Stone % (Auto) 4.6 Eos % (Auto) 0.2 Baso % (Auto) 0.1 Neut # (Auto) 6.8 Lymph # (Auto) 0.5 L Stone # (Auto) 0.4 Eos # (Auto) 0.0 Baso # (Auto) 0.0 WBC Differential . Diff Scan Auto diff confirmed Differential Comment . Hypersegmented Neuts 1+ H Platelet Estimate Low L Platelet Morphology Normal Ovalocytes 1+ H Keratocytes Occ H Smear Path Review PT INR APTT Fibrinogen Sodium Potassium Chloride Carbon Dioxide Anion Gap BUN Creatinine Estimated GFR POC Glucose 137 H 114 H Random Glucose Calcium Prot Corrected Calcium Phosphorus Iron TIBC % Saturation Ferritin Total Protein Albumin Vitamin B12 Folate Urine Color Urine Clarity Urine pH Ur Specific [place] Urine Protein Urine Glucose (UA) Urine Ketones Urine Occult Blood Urine Nitrate Urine Bilirubin Urine Urobilinogen Ur Leukocyte Esterase Urine RBC Urine WBC Ur Squamous Epith Cells Urine Bacteria Urine Mucus Urine Yeast Micro UA Comment Urine Culture Comments Random Vancomycin Heparin Dep Plt Ab OD Hep-Induced Plt Ab [place] Result Diagrams: 03/02/18 05:00 03/02/18 05:00 Microbiology: Microbiology 02/27/18 02:28 Aerobic Blood Culture - Preliminary Blood - Peripheral No growth in 3 days Anaerobic Blood Culture - Preliminary No growth in 3 days 02/27/18 02:20 Aerobic Blood Culture - Preliminary Blood - Peripheral No growth in 3 days Anaerobic Blood Culture - Preliminary No growth in 3 days 02/25/18 13:20 Urine Culture - Final Catheterized Urine Kaylen tropicalis Imaging: ITS Impressions Abdomen/Bladder Ultrasound 02/05/18 00:00 CONCLUSION: 1. No evidence of hydronephrosis. 2. The echogenicity of the kidneys is equal to that of the liver which can be seen with medical renal disease. 3. Simple cyst in right kidney. 4. Suboptimal visualization of the left kidney. 5. Small amount of free fluid along the spleen. This could represent an adjacent pleural effusion. Head CT 02/15/18 12:23 CONCLUSION: 1. Negative CT Head non contrast. . Head MRI 02/16/18 08:28 CONCLUSION: 1. New focus of restricted diffusion high along the right cerebral vertex measuring 8 mm consistent with a new small focal acute infarction. 2. There is a new 5 mm area restricted diffusion high along the left cerebral vertex consistent with a new small focal acute infarction. 3. 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 This area is stable compared to the prior examination. 4. Stable bilateral cortical atrophy and mild chronic white matter changes. 5. Chronic bilateral mastoiditis. Abdomen X-Ray 02/17/18 00:00 CONCLUSION: Nonspecific bowel gas pattern. Chest CT 02/18/18 00:00 CONCLUSION: 1. Increasing basilar and dependent consolidation in both lungs most characteristic of pneumonia or aspiration. 2. Near complete resolution of previous small effusions. 3. Osteopenia with stable compression deformities in the spine. 4. Previous sternotomy with aortic valve replacement. 5. Right-sided central line, ET tube and NG tube in good position. Chest X-Ray 02/24/18 06:00 CONCLUSION: Stable chest x-ray with atelectasis at the right lung base and volume loss versus consolidation in the left lower lobe. Procedures: 02/05 left IJ placement 02/05 retrograde left heart cath, stent placement, IABP placement 02/05 intubated 02/19 extubated 02/23 reintubated 02/28 PEG tube placed Assessment and Plan - Disease Oriented Problem List (1) Hypokalemia (2) Cardiogenic shock (3) CAD (coronary artery disease) (4) Ventricular fibrillation Pertinent Non-Medical Issues: Psychosocial: On disability. 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 Spiritual: Shinto, non-latter-day. Examiner Of Currency has visited, they also have hoahaoism manager billing visiting. Legal: Pt not capacitated to make medical decisions. Unclear if he will regain capacity. Per [place] statutes decision making would fall to as proxy. Ethical issues impacting care: none identified Important Contacts: Maria Isabel Tolentino [phone] sister Yvonne Valdivia [phone] Prognosis: 62 yo male s/p aortic valve replacement 2012 who suffered significant NSTEMI, EF <20% on presentation, troponins up to 32. Echo also showed global hypokinesis. Not clear how much of heart failure was present prior to NSTEMI. s /p heart cath, LAD stenting complicated by vasospasm, placement and subsequent removal of IABP. 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 He has had several runs of v fib and v tach requiring chest compressions, shocks. He has underlying COPD and was having activity intolerance prior to this event. He was reintubated. His prognosis for recovery is poor; chances of returning to baseline extremely poor. Unlikely he would tolerate rehab. He remains at high risk for continued complications including but not limited to recurrent arrhythmias, multi-organ injury; and at risk for further decline. He is hospice appropriate should goals be in line with comfort. Code Status: Full Code Plan: - LEGAL DECISON MAKER - Pt not capacitated to make medical decisions, unclear if he will regain this capacity. Per [place] statutes decision making would fall to as proxy. - CODE STATUS- full code - GOALS - verbalizes aggressive goals. She is optimistic feels God will heal her . - SYMPTOMS - * dyspnea - multifactorial - hx COPD, EF < 20%, class 4 heart failure. extubated 02/19, on 10L simple mask. reintubated 02/23. CPAP trials ongoing. trach postponed d/t low PLT. PRN duonebs, scheduled duonebs * pain - multifactorial, lines, ET tube, catheters, hx chronic back pain 2/2 "chronic fractures." sees pain mgmt, been on hydrocodone 10/325, reportedly same dosage and frequency for 6 years. appears comfortable on my exam. on fentanyl 10ml/hr. per ccm. * debility/weakness - multifactorial. profoundly emaciated and ill appearing, per this is his usual appearance. reintubated, at risk for worsening debility. referral to [facility] pending. s/p PEG tube placement 02/28. cardiac function prob would not allow aggressive rehab. - Palliative care will continue to follow during hospital course as condition evolves, to assist patient/decision-maker with understanding of medical conditions, weighing benefits/burdens of treatment options, for clarification of goals of treatment. Additionally will assist with any symptoms of palliative concern Attestation Attestation: To help prompt me to consider important information that might be impacting today's encounter and assessment, information from prior notes written by myself or my colleagues may have been "brought forward" into today's note. My signature on this note, however, is an attestation that I personally performed the exam, history, and/or decision-making noted today, and, unless otherwise indicated, the interactions with patient, family, and staff as well as the review of records all occurred today. I also attest that the listed assessment and stated plan reflect my best clinical judgment today based on the combination of historical information, prior notes, and today's exam/ interactions. When time spent is documented, it refers only to time spent today by the signer, or if indicated, combined time spent today by collaborating physician/nurse practitioner.
[2018-03-02] MEDS ORDERED: Sodium Chlor 0.9% Inj 250 ML IV.SIG SCH (17:00)
[2018-03-02] MEDS: Iron Sucrose Inj 200 MG in Sodium Chlor 0.9% Inj 100 ML IV.SIG SCH (17:34)
[2018-03-02] MEDS: Argatroban Inj 250 MG in Sodium Chlor 0.9% Inj 247.5 ML IV.CONT PRN (17:38)
--- NOTE | 2018-03-02 17:41 | P.PNNP ---
Subjective Interval history: Remains intubated, sedated. Renal function and sodium improved. 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 <Munira Finnegan - Last Filed: 03/02/18 17:37> Physical Exam Vital signs: Vital Signs 03/01/18 18:00 03/01/18 20:00 03/01/18 21:33 Temperature 97.9 F Pulse Rate 79 69 66 Respiratory Rate 41 H 31 H 15 Blood Pressure 113/68 102/64 Pulse Oximetry 97 99 96 03/01/18 22:00 03/02/18 00:00 03/02/18 02:00 Temperature 97.9 F Pulse Rate 65 66 67 Respiratory Rate 30 H Blood Pressure 100/61 Pulse Oximetry 100 03/02/18 04:00 03/02/18 04:22 03/02/18 06:00 Temperature 97.6 F Pulse Rate 69 98 H 68 Respiratory Rate 33 H 15 Blood Pressure 101/63 Pulse Oximetry 97 98 03/02/18 07:00 03/02/18 08:00 03/02/18 08:48 Temperature Pulse Rate 69 Respiratory Rate 15 13 6 L Blood Pressure Pulse Oximetry 98 99 03/02/18 10:19 03/02/18 13:25 03/02/18 13:56 Temperature Pulse Rate Respiratory Rate 7 L 16 17 Blood Pressure Pulse Oximetry 100 97 97 03/02/18 15:47 03/02/18 17:13 Temperature Pulse Rate 72 Respiratory Rate 14 15 Blood Pressure Pulse Oximetry 96 Intake & Output 03/01/18 03/02/18 03/02/18 18:59 06:59 18:59 Intake Total 2293.625 / 2293.625 1350 / 1350 Output Total 1050 / 1050 1050 / 1050 Balance 1243.625 / 1243.625 300 / 300 Weight 63 kg Intake: IV 1209.625 / 1209.625 700 / 700 Versed Inj 50 mg In 50 ml @ 2 50 / 50 MG/HR 2 mls/hr IV.CONT TITRATE PRN Rx#:[id number] Sodium Chloride 23.4% Inj 38.5 1009.625 / 1009.625 MEQ In Sterile Water for Inj 1, 000 ML @ 75 mls/hr IV.CONT . [id number] [facility] Rx#:[id number] Azactam Inj 1,000 MG In NS Inj 200 / 200 200 / 200 100 ML @ 200 mls/hr IV.SIG Q6H [facility] Rx#:[id number] Diflucan 200 mg Premix Bag 100 100 / 100 ML @ 100 mls/hr IV.SIG Q24H [facility] Rx#:[id number] Ancef Inj 1,000 MG In NS Inj 100 / 100 100 ML @ 200 mls/hr IV.SIG Q12H [facility] Rx#:[id number] fentaNYL 10 mcg/mL Premix Drip 250 / 250 2,500 mcg In 250 ml @ 50 MCG/HR 5 mls/hr IV.SIG TITRATE PRN Rx #:[id number] Tube Feeding 484 / 484 250 / 250 Water Bolus Amount 600 / 600 400 / 400 Output: Stool 50 / 50 200 / 200 Urine Amount (Catheter) 1000 / 1000 850 / 850 Indwelling Urethral Catheter 1000 / 1000 850 / 850 Other: Date of Last Bowel Movement 03/01/18 03/01/18 03/01/18 - Constitutional no acute distress, thin, cachectic Comments: intubated, unresponsive. - Routine HEENT Exam Head: Present: normocephalic - Routine Neck Exam Present: supple, full ROM - Routine Respiratory Exam Present: patient mechanically ventilated - Routine Cardiovascular Exam Present: RRR, S1, S2 - Routine Abdominal Exam Present: soft, normoactive bowel sounds Comments: PEG - Routine Extremities Exam Present: pulses intact, normal capillary refill. Absent: edema - Routine Skin Exam Present: intact, dry, warm - Routine Neurological Exam Present: moving all extremities - Detailed Neurological Exam: Coma Scale Eye Opening: None Verbal Response: None Motor Response: None Janee Coma Scale Total: 3 - Routine Psychiatric Exam Present: unable to assess - Urinary Catheter Management Condom Cath placed during this visit: yes Urethral indwelling: Yes Reason for continuing: Acute urinary retention Insertion date: 02/24/18 Indwelling Urethral Catheter Cath placed during this visit: yes Reason for continuing: Acute urinary retention Insertion date: 02/24/18 Indwelling Temp Sensing Catheter Cath placed during this visit: yes, but has since been removed by the nurse Reason for continuing: Acute urinary retention Insertion date: 02/12/18 Insertion time: 20:15 Removal date: 02/20/18 Removal time: 16:00 <Munira Finnegan - Last Filed: 03/02/18 17:37> Vital signs: Vital Signs 03/02/18 15:47 03/02/18 16:00 03/02/18 17:13 Temperature 97.7 F Pulse Rate 72 72 Respiratory Rate 14 16 15 Blood Pressure 93/58 L Pulse Oximetry 96 03/02/18 18:00 03/02/18 20:00 03/02/18 21:00 Temperature 98.5 F Pulse Rate 66 68 69 Respiratory Rate 15 17 Blood Pressure 97/63 L 111/69 Pulse Oximetry 99 97 03/02/18 21:24 03/02/18 22:00 03/02/18 23:00 Temperature Pulse Rate 66 71 68 Respiratory Rate 15 15 16 Blood Pressure 115/73 102/65 Pulse Oximetry 96 97 97 03/02/18 23:57 03/03/18 00:00 03/03/18 01:00 Temperature 97.9 F Pulse Rate 74 70 Respiratory Rate 15 15 15 Blood Pressure 106/69 104/67 Pulse Oximetry 97 96 97 03/03/18 02:00 03/03/18 04:00 03/03/18 04:04 Temperature 97.5 F L Pulse Rate 70 72 Respiratory Rate 17 15 Blood Pressure 107/63 Pulse Oximetry 97 97 03/03/18 06:00 03/03/18 08:00 03/03/18 09:13 Temperature Pulse Rate 71 66 Respiratory Rate 17 Blood Pressure Pulse Oximetry 100 03/03/18 10:00 03/03/18 10:09 03/03/18 10:26 Temperature 98.4 F 98.5 F Pulse Rate 65 76 74 Respiratory Rate 16 15 Blood Pressure 99/63 L 102/69 Pulse Oximetry 99 100 03/03/18 11:00 03/03/18 12:00 03/03/18 12:23 Temperature Pulse Rate 73 Respiratory Rate 18 Blood Pressure Pulse Oximetry 100 100 03/03/18 12:52 03/03/18 13:04 03/03/18 13:06 Temperature Pulse Rate 70 72 Respiratory Rate 15 18 18 Blood Pressure 105/59 L 105/56 L Pulse Oximetry 100 100 03/03/18 13:08 03/03/18 13:10 03/03/18 13:12 Temperature Pulse Rate 71 69 70 Respiratory Rate 18 18 18 Blood Pressure 105/56 L 103/55 L 99/55 L Pulse Oximetry 100 100 100 03/03/18 13:14 03/03/18 13:16 03/03/18 13:18 Temperature Pulse Rate 70 71 71 Respiratory Rate 18 18 18 Blood Pressure 96/51 L 94/51 L 93/51 L Pulse Oximetry 100 100 100 03/03/18 13:19 03/03/18 13:20 03/03/18 13:22 Temperature Pulse Rate 71 70 69 Respiratory Rate 18 18 18 Blood Pressure 93/52 L 94/52 L 93/52 L Pulse Oximetry 100 100 100 03/03/18 13:24 03/03/18 13:26 03/03/18 13:28 Temperature Pulse Rate 68 68 67 Respiratory Rate 18 18 18 Blood Pressure 95/53 L 96/52 L 96/52 L Pulse Oximetry 100 100 100 03/03/18 13:30 03/03/18 13:32 03/03/18 13:34 Temperature Pulse Rate 67 67 67 Respiratory Rate 18 18 18 Blood Pressure 97/52 L 99/58 L 96/57 L Pulse Oximetry 100 100 100 03/03/18 13:36 03/03/18 13:38 03/03/18 13:40 Temperature Pulse Rate 66 66 66 Respiratory Rate 18 18 18 Blood Pressure 96/55 L 96/55 L 95/54 L Pulse Oximetry 100 100 100 03/03/18 13:42 03/03/18 13:44 03/03/18 13:46 Temperature Pulse Rate 66 65 65 Respiratory Rate 18 18 18 Blood Pressure 95/53 L 95/50 L 93/52 L Pulse Oximetry 98 98 98 03/03/18 13:48 03/03/18 13:50 Temperature Pulse Rate 66 67 Respiratory Rate 18 18 Blood Pressure 90/52 L 90/55 L Pulse Oximetry 97 97 Intake & Output 03/02/18 03/03/18 03/03/18 18:59 06:59 18:59 Intake Total 1082 / 1082 1135 / 1135 400 / 400 Output Total 1000 / 1000 1050 / 1050 Balance 82 / 82 85 / 85 400 / 400 Weight 62.7 kg Intake: IV 100 / 100 510 / 510 400 / 400 Versed Inj 50 mg In 50 ml @ 2 50 / 50 MG/HR 2 mls/hr IV.CONT TITRATE PRN Rx#:[id number] Azactam Inj 1,000 MG In NS Inj 100 / 100 200 / 200 100 / 100 100 ML @ 200 mls/hr IV.SIG Q6H [facility] Rx#:[id number] Diflucan 200 mg Premix Bag 100 100 / 100 ML @ 100 mls/hr IV.SIG Q24H [facility] Rx#:[id number] Venofer Inj 200 MG In NS Inj 110 / 110 100 ML @ 110 mls/hr IV.SIG Q24H [facility] Rx#:[id number] Ancef Inj 1,000 MG In NS Inj 100 / 100 100 ML @ 200 mls/hr IV.SIG Q12H [facility] Rx#:[id number] fentaNYL 10 mcg/mL Premix Drip 250 / 250 2,500 mcg In 250 ml @ 50 MCG/HR 5 mls/hr IV.SIG TITRATE PRN Rx #:[id number] Tube Feeding 82 / 82 325 / 325 Water Bolus Amount 900 / 900 300 / 300 Intake (Blood Product) Amt 0 / 0 Plt Pheresis A Leukoreduced 0 / 0 Unit [id number] Plt Pheresis A Leukoreduced 0 / 0 Unit [id number] Plt Pheresis B Leukoreduced 0 / 0 Unit [id number] Output: Urine 1000 / 1000 Stool 50 / 50 Urine Amount (Catheter) 1000 / 1000 Indwelling Urethral Catheter 1000 / 1000 Other: Date of Last Bowel Movement 03/01/18 03/01/18 03/03/18 - Urinary Catheter Management Condom Cath placed during this visit: no Indwelling Urethral Catheter Cath placed during this visit: no Indwelling Temp Sensing Catheter Cath placed during this visit: no <Evangelist Ashley - Last Filed: 03/03/18 14:52> Assessment and Plan - Assessment (1) Acute kidney injury Code(s): N17.9 - Acute kidney failure, unspecified Status: Acute Plan: Baseline 0.9-1.2. SHARON most likely due to overdiuresis and dehydration. Renal function is improving. Continue IVF. Repeat labs daily. He has excellent urine output. Avoid nephrotoxic agents. His prognosis is very poor. He is severely malnourished and at risk for complications. Monitor urine output and renal function. (2) Hyperosmolality and hypernatremia Code(s): E87.0 - Hyperosmolality and hypernatremia Status: Acute Plan: Improved. Reduce 1/4 NS to 40cc/hr 300 ml Q6H free water with tube feeding Follow labs. (3) Hyperkalemia Code(s): E87.5 - Hyperkalemia Status: Acute Plan: Improved. He was on potassium replacement and taking Spironolactone. All of these have been stopped. (4) Sepsis Code(s): A41.9 - Sepsis, unspecified organism Status: Acute Plan: He is on PO Vancomycin for C.diff. On IV Vancomycin and Flagyl. Carefully monitor Vancomycin dosing and levels. 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 - Plan Pt is due for Trach placement Tuesday. 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 Agree with above assessment and plan. <Evangelist Ashley - Last Filed: 03/03/18 14:52>
[2018-03-03] MEDS: Insulin NovoLOG Aspart Correctional Sugar Inj SQ SCH ×5 (00:04→23:56)
[2018-03-03] MEDS: Oral Hygiene Kit OROPHARYNG SCH ×5 (00:04→23:56)
[2018-03-03 08:03] LABS: Eos % (Auto) 0.2 % (0.0-4.0); Hematocrit 23.2 % (39.0-51.0); Hemoglobin 7.6 gm/dL (13.0-17.0); Lymph # (Auto) 0.4 th/mm3 (1.0-4.8); Lymph % (Auto) 6.5 % (9.0-44.0); Mean Corpuscular HGB Conc 32.7 % (32.0-36.0); Mean Corpuscular Hemoglobin 31.5 pg (27.0-34.0); Mean Corpuscular Volume 96.2 fL (80.0-100.0); Mean Platelet Volume 11.2 fL (7.0-11.0); Mono # (Auto) 0.2 th/mm3 (0.0-0.9); Neut # (Auto) 6.2 th/mm3 (1.8-7.7); Neut % (Auto) 90.3 % (16.0-70.0); Platelet Count 49 th/mm3 (150-450); Red Blood Count 2.42 mil/mm3 (4.50-5.90); Red Cell Distribution Width 19.6 % (11.6-17.2); White Blood Count 6.9 th/mm3 (4.0-11.0)
[2018-03-03] MEDS: Ferrrous Sulfate 300 MG/5 ML UDC PO SCH (08:10)
[2018-03-03] MEDS: Amiodarone 200 MG Tablet G-TUBE SCH ×2 (08:10→20:21)
[2018-03-03] MEDS: MethylPREDNISolone Sod Succinate Inj 40 MG/ML Vial IV.PUSH SCH (08:11)
[2018-03-03] MEDS: Pregabalin 75 MG Capsule PO SCH ×2 (08:11→20:22)
[2018-03-03] MEDS: Ascorbic Acid 500 MG Tablet NG/OG SCH (08:11)
[2018-03-03] MEDS: Hypromellose 0.3% Opth Gel 10 GM Bottle EACH EYE SCH ×2 (08:11→20:28)
[2018-03-03] MEDS: Beneprotein Powder Packet G-TUBE SCH ×3 (08:12→16:59)
[2018-03-03] MEDS: Chlorhexidine 0.12% Oral Kit 15 ML UDC OROPHARYNG SCH ×2 (08:12→20:28)
[2018-03-03] MEDS: Senna/Docusate Sodium 8.6/50 MG Tablet PO SCH ×2 (08:13→20:22)
[2018-03-03 08:18] LABS: Activated Partial Thrombo Time 36.4 sec (24.3-30.1); INR 1.4 Ratio; Prothrombin Time 14.5 sec (9.8-11.6)
[2018-03-03] MEDS: Midazolam 50 MG/50 ML Inj 50 MG/50 ML BAG IV.CONT PRN (08:26)
[2018-03-03] MEDS: fentaNYL 10 mcg/mL Premix Drip 2,500 MCG/250 ML BAG IV.SIG PRN (08:27)
[2018-03-03 08:32] LABS: Albumin 1.9 g/dL (3.4-5.0); Calcium 7.4 mg/dL (8.5-10.1); Carbon Dioxide 20.6 meq/L (21.0-32.0); Potassium 3.8 meq/L (3.5-5.1); Total Protein 5.1 g/dL (6.4-8.2)
[2018-03-03 09:29] LABS: Ovalocytes 1+; Platelet Morphology Normal (Normal)
[2018-03-03] MEDS ORDERED: fentaNYL Citrate Inj 250 MCG/5 ML Ampul IV.PUSH ONE (09:33)
--- NOTE | 2018-03-03 09:43 | P.PNCC ---
Subjective Subjective Remarks/Hospital Course: 62-year-old male with past medical history of [place] mechanical aortic valve (09/21/12 Dr. Gonzalez), on chronic anticoagulation with warfarin, atrial fibrillation postop from AVR , COPD on 2.5 L home O2, stroke in 2015 resulting in left-sided sensory deficits and neuropathy, osteoporosis with chronic low back pain. He was recently admitted to [facility] from 01/23 through 01/31/18 for MSSA bacteremia. It is believed that the original source of infection was a wound on his right index finger when electric drill slipped and created a puncture wound. He was discharged with right upper extremity PICC line receiving cefazolin 2 g IV every 8 hours and gentamicin 210 mg IV daily. He states that home health administered antibiotics at 17:00 and shortly thereafter he began having chills and rigors and sought medical attention at [facility]. He had no rash. Upon arrival, he was hypotensive in the low 80s. He was given 2 L S bolus but remained hypotensive so was started on Levophed. He then developed heart rate in the 140s, reportedly atrial flutter so he was started on Amiodarone drip in [place] and converted to sinus rhythm. He was transfused 2 units PRBC due to Hgb 9.3. His stool was nonbloody nonmelena but was Hemoccult positive. He was given zosyn and vancomycin. Critical care medicine was then contacted and accepted patient for transfer to [facility]. He denies tenderness/redness/drainage at PICC site. Aside from mechanical aortic valve, he has no other hardware or indwelling devices. He denies headache, cough, dysuria. He has had a few loose stools at home, but stools have sometimes been formed. He denies chest pain, does report some SOB. EKG at [place] had marked inferolateral ischemic changes. Obtained EKG upon arrival to [facility] which is improved. SUBJ 02/05: Patient remains critical ill appearing, complaints of chest tightness but denies pain. Remains on 8 mcg/min of Levophed to maintain map about 65. However increasing shortness of breath. Chest x-ray shows increasing pulmonary edema. Troponin was 27.5 currently on IV heparin therapeutic. Cardiology consult is pending at this time. I will stop on maintenance fluids give 40 mg IV Lasix and IV albumin 25 g 1. Patient is very critical patient and updated at the bedside 02/06: to [employer] last night for [facility] with LAD stent complicated by vasospasm of the LAD. IABP placed. patient emergently intubated for acute hypoxic respiratory failure secondary to cardiogenic shock and pulmonary edema. started on milrinone at 0.375 mcg/kg/min and levophed. bumex drip started. remains critically ill. 02/07: Remains critically ill remains on Levophed and milrinone. Currently diuresing well with Bumex drip. IABP in place management per cardiology-good waveform and augmentation. Chest x-ray shows adequate positioning of IABP, diffuse bilateral pulmonary edema 02/08: Remains critical but showing some signs of improvement. Diuresing very well on Bumex infusion. Remains on Levophed and milrinone. IABP one-to-one with good augmentation management per cardiology. Chest x-ray shows improving edema but with persistent bilateral effusions. Will initiate weaning trials if tolerated 02/09: Still remains on pressors, unable to wean Levophed below 2 mcg/min. Milrinone currently on 0.375 mcg/kg/min. IABP removed yesterday. On sedation hold patient wakes up but remains lethargic. Weakly squeezes hand. Urine output excellent on Bumex, 4 L output in 24 hours. Will attempt CPAP today 02/10: Multiple episodes of V. fib V. tach arrest yesterday morning. Successfully resuscitated. Yesterday night had two-minute V. fib arrest return of spontaneous circulation in sinus rhythm after DC cardioversion 1. Currently remains on milrinone and low-dose Levophed. I will try to wean off Levophed introduce low-dose beta-rasheed due to recurrent arrhythmia. Keep potassium more than 4 magnesium more than 2 02/11: Patient still critical and cardiogenic shock requiring Levophed and milrinone. Urine output improved with adding Diamox. Approximately 2 L urine output in 24 hours, creatinine remained stable. Oxygenation slightly improved FiO2 reduced to 70% now. Overall prognosis remains poor family wants to continue aggressive care 02/12: Remains critical but slight improvement in oxygenation. But continues to require Levophed and milrinone the low-dose. Urine output remains adequate. Chest x-ray shows interval improvement. Creatinine remains stable to slightly improved. Add IV albumin to improve blood pressure and to promote diuresis. 02/13 Patient remains intubated and sedated with Versed and fentanyl. Afebrile, off Levophed remains on Milrinone and Heparin drip. 02/14: Hypothermic overnight. Remains on milrinone and heparin drips. Tolerating tube feeds at 20 cc now. Positive BM. No changes neurologically 02/15 Patient remains sedated with Versed and Fentanyl drips, on Milrinone 0.5. 02/16 Patient remains intubated sedated with Versed and Fentanyl infusion. On Milrinone and Heparin drips. CT brain yesterday showed no acute findings. Afebrile. 02/17 Patient remains sedated and intubated. Afebrile, On Milrinone and Heparin drip. 02/18: Remains critical continues to require milrinone. Urine output adequate. Chest x-ray shows bilateral infiltrate effusion. CT chest to better define effusions and infiltrate. Increase Bumex to 1 mg every 8 hours. Patient is persistently weak, will attempt SBT unlikely to be successfully extubated at this time. Most likely will need tracheostomy if family desires aggressive care 02/19: Remains intubated sedated with Versed and fentanyl. Transition to Precedex to facilitate weaning trials. Patient responding slightly more to verbal command, appears to track even though not following commands. Creatinine slightly increased with increased diuresis. Chest x-ray shows improved pleural effusions. CT chest yesterday did not show significant effusion but basilar consolidation. 02/20 Patient was extubated yesterday on 10L simple mask, on Precdex, Heparin and Milrinone drips. Tmax 101.1 yesterday 02/21: Febrile. Currently on 5 L nasal cannula. Continues on heparin drip with 500 units an hour. Received bumetanide 1 mg 1 today. Positive BM 02/22: Remains on 5 L nasal cannula. Remains on heparin drip. No changes neurologically remains medically stable. SUBJECTIVE: 02/23: Intubated early this morning secondary to acute respiratory failure. Blood pressure marginal likely due to sedation. Ejection fraction less than 20% . Discussed with at bedside. She was to proceed with tracheostomy in PEG tube placement. We will plan for within the next few days. 02/24: Remains sedated, orally intubated on mechanical ventilation. 02/25: Remains sedated, orally intubated on mechanical ventilation. Worsening renal function noted. Check UA, urine sodium and creatinine. Ordered Kayexalate for hyperkalemia and nephrology consulted. 02/26: Sedated, arousable, orally intubated on mechanical ventilation. Will hold Plavix for planned tracheostomy and PEG tube placement. Remains on heparin for anticoagulation. 02/27: Drowsy, arousable, orally intubated on mechanical ventilation. Awaiting tracheostomy and PEG tube placement. 02/28: Drowsy, arousable, remains orally intubated on mechanical ventilation. PEG tube scheduled for today. 03/01: Drowsy, arousable, remains orally intubated on mechanical ventilation. Underwent PEG tube placement on 02/28. Worsening thrombocytopenia noted and now down to 50,000. Will continue holding Plavix and heparin. Check HIT screen and consult hematology. Awaiting tracheostomy 03/02: Drowsy, arousable, remains orally intubated on mechanical vent relation. Hematology consult noted. 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 03/03: Intubated remains heavily sedated. Was unable to wean off the ventilator , became hypoxemic on CPAP yesterday. 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 Will transfuse 3 packed units of platelets prior to tracheostomy planned for 11 AM today. Platelet count 49,000 Objective Vital Signs / I&O: Vital Signs 03/02/18 10:00 03/02/18 10:19 03/02/18 12:00 Temperature 97.8 F Pulse Rate 68 79 Respiratory Rate 7 L 22 Blood Pressure 108/65 Pulse Oximetry 100 03/02/18 13:25 03/02/18 13:56 03/02/18 14:00 Temperature Pulse Rate 96 H Respiratory Rate 16 17 Blood Pressure Pulse Oximetry 97 97 03/02/18 15:47 03/02/18 16:00 03/02/18 17:13 Temperature 97.7 F Pulse Rate 72 72 Respiratory Rate 14 16 15 Blood Pressure 93/58 L Pulse Oximetry 96 03/02/18 18:00 03/02/18 20:00 03/02/18 21:00 Temperature 98.5 F Pulse Rate 66 68 69 Respiratory Rate 15 17 Blood Pressure 97/63 L 111/69 Pulse Oximetry 99 97 03/02/18 21:24 03/02/18 22:00 03/02/18 23:00 Temperature Pulse Rate 66 71 68 Respiratory Rate 15 15 16 Blood Pressure 115/73 102/65 Pulse Oximetry 96 97 97 03/02/18 23:57 03/03/18 00:00 03/03/18 01:00 Temperature 97.9 F Pulse Rate 74 70 Respiratory Rate 15 15 15 Blood Pressure 106/69 104/67 Pulse Oximetry 97 96 97 03/03/18 02:00 03/03/18 04:00 03/03/18 04:04 Temperature 97.5 F L Pulse Rate 70 72 Respiratory Rate 17 15 Blood Pressure 107/63 Pulse Oximetry 97 97 03/03/18 06:00 Temperature Pulse Rate 71 Respiratory Rate Blood Pressure Pulse Oximetry Intake & Output 03/02/18 03/03/18 03/03/18 18:59 06:59 18:59 Intake Total 1082 / 1082 1135 / 1135 300 / 300 Output Total 1000 / 1000 1050 / 1050 Balance 82 / 82 85 / 85 300 / 300 Weight 62.7 kg Intake: IV 100 / 100 510 / 510 300 / 300 Versed Inj 50 mg In 50 ml @ 2 50 / 50 MG/HR 2 mls/hr IV.CONT TITRATE PRN Rx#:[id number] Azactam Inj 1,000 MG In NS Inj 100 / 100 200 / 200 100 ML @ 200 mls/hr IV.SIG Q6H ADRIEN Rx#:[id number] Diflucan 200 mg Premix Bag 100 100 / 100 ML @ 100 mls/hr IV.SIG Q24H ADRIEN Rx#:[id number] Venofer Inj 200 MG In NS Inj 110 / 110 100 ML @ 110 mls/hr IV.SIG Q24H ADRIEN Rx#:[id number] Ancef Inj 1,000 MG In NS Inj 100 / 100 100 ML @ 200 mls/hr IV.SIG Q12H ADRIEN Rx#:[id number] fentaNYL 10 mcg/mL Premix Drip 250 / 250 2,500 mcg In 250 ml @ 50 MCG/HR 5 mls/hr IV.SIG TITRATE PRN Rx #:[id number] Tube Feeding 82 / 82 325 / 325 Water Bolus Amount 900 / 900 300 / 300 Output: Urine 1000 / 1000 Stool 50 / 50 Urine Amount (Catheter) 1000 / 1000 Indwelling Urethral Catheter 1000 / 1000 Other: Date of Last Bowel Movement 03/01/18 03/01/18 Result Diagrams: 03/03/18 07:55 03/03/18 07:55 Objective Remarks: GENERAL: 62-year-old male lying in bed, orotracheally intubated SKIN: cool and poorly perfused. HEAD: Atraumatic. Normocephalic. EYES: Pupils equal and round, 2 mm and reactive. ENT: No nasal bleeding or discharge. Orotracheally intubated. NECK: Trachea midline. Supple, no JVD, no adenopathy/thyromegaly. Left IJ is clean dry and intact CARDIOVASCULAR: RRR. S1, S2. No S4. No murmurs rubs or gallops. RESPIRATORY: Orally intubated on mechanical ventilation, b/L equal air entry. Bilateral rhonchorous breath sounds. GASTROINTESTINAL: Abdomen soft, non-tender, nondistended. no guarding. PEG in place MUSCULOSKELETAL: Extremities with trace bilateral lower extremity edema NEURO: Sedated, arousable, orally intubated, no focal motor deficits Assessment and Plan - Assessment and Plan Plan: NEURO/PSYCH: History of stroke in 2015 Neuropathy left upper and lower extremity Chronic low back pain Acetaminophen 650 every 6 hours as needed fever. 02/15 CT brain: No acute findings. 02/15 EEG : Encephalopathy, no epileptiform activity MRI brain 02/16: New small focal acute infarction right cerebral vertex and also left cerebral vertex. Neuro has followed. Continue ASA 81 mg daily. Continue pregabalin 150 mg p.o. twice daily. Holding duloxetine 90 mg p.o. daily. RESP: Acute hypoxic respiratory failure COPD on 2.5 L home O2 currently on 5 L Prior tobacco abuse Bilateral pleural effusions PRVC 18/500/07/22/39. Continues to fail daily CPAP trials, proceed with tracheostomy today due to multiple extubation failures. Albuterol/ipratropium aerosols every 4 hours with albuterol aerosols every 2 hours as needed for dyspnea methylprednisolone succinate 40mg IV daily CV: V. tach/V. fib arrest NSTEMI Cardiogenic shock Acute systolic heart failure Atrial fibrillation with RVR [place] mechanical aortic valve (09/21/12 Dr. Gonzalez) s/p Tricuspid annuloplasty Monitor HR and BP keep MAP>65mmHg. Discontinued milrinone 0.25 mgc/kg/min 02/21 s/p cath And PCI -proximal LAD and large diagonal 90% stenosis, 2 BMS stent 02/05, mid LAD vasospasm post PCI Continue aspirin 81 mg daily, Hold clopidogrel starting 02/26 for trach/ PEG. amiodarone 400mg TID, carvedilol 3.125mg BID Bumetanide 1mg IV q8h, reduce to 1 mg IV q24. discontinued 02/21. Stop Spironolactone in v/o hyperkalemia on 02/25 Heparin drip. PTT therapeutic. Continue atorvastatin 40 mg nightly. Off IABP [place] 01/23/18no vegetation. Normal aortic mechanical valve with trivial aortic insufficiency. Tricuspid annuloplasty. Mild to moderate LV generalized hypokinesis Echo from 02/05: EF <20%, diffuse hypokinesis, bioprosthetic valve Guide Excursion is Romana Bartlett GI: Moderate protein calorie malnutrition with hypoalbuminemia Jevity 1.5, Goal 50 cc an hour-on hold for tracheostomy Status post PEG tube placement Lansoprazole for stress ulcer prophylactic Had normal EGD on 10/21/17 FEN/RENAL: Acute kidney injury Hypopotassemia Hypernatremia BPH Cano due to aggressive diuresis. close monitoring of uop Monitor renal function, I/O's, creatinine slowly improving Renal ultrasound to evaluate for evidence of obstruction -did not show any obstruction Discontinued bumetanide 1mg IV daily , spironolactone 25 mg twice daily stopped on 02/25 due to hyperkalemia and worsening renal function.. 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 difficile colitis PICC removed Discontinued IV vancomycin and gentamicin 02/20. Cefepime IV discontinued on and patient started on aztreonam and Ancef IV. C.diff tx: po vanco 02/11/18. 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 Received 2 units packed red cells in [place] [facility] due to anemia and shock. Monitor CBC. Continue holding Plavix and heparin. Hematology consulted for worsening thrombocytopenia. 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 On Argatroban drip per hematology, holding for trach. Protonix for stress ulcer prophylaxis ACCESS: Left IJ central line placed 02/05/18. Palliative care is following Level [address] Dr[address] Quintana discussed with at bedside on 02/23. Request continued aggressive care with tracheostomy if needed and PEG tube placement.
[2018-03-03] MEDS ORDERED: Midazolam Inj 5 MG/ML 1 ML Vial ONE (09:57)
--- NOTE | 2018-03-03 11:50 | P.PCN ---
Date of procedure: 03/03/18 Pre-op diagnosis: Resp failure, unable to wean Post-op diagnosis: same Procedure: Percutaneous tracheostomy Procedure: After ensuring adequate sedation/analgesia neuromuscular blockade, patient was positioned appropriately. After sterile prepping and draping, 1% lidocaine was used for local infiltration anesthesia. Dr. Tran proceeded bronchoscopy and withdrawing ET tube. Introducer needle was inserted into the trachea under bronchoscopic guidance and guidewire was advanced into the trachea and was visualized passing down into the trachea following which needle was removed. Punch dilator was used to dilate the tracheal ring following which tracheostomy dilator assembly was mounted over the guidewire and advanced to dilate the trachea. The dilator was visualized via bronchoscopic guidance entering the trachea without injuring the posterior tracheal wall. Following this dilator assembly was removed and percutaneous tracheostomy mounted over dilator was advanced over the guidewire into the trachea under direct visualization following which guidewire/dilator were removed. Bronchoscope was inserted at this point by Dr. Tran via newly inserted tracheostomy and appropriate placement was confirmed by visualizing tracheal rings. After this bronchoscope was withdrawn and inner cannula was placed via tracheostomy. After inflating cuff patient was connected to mechanical ventilation via tracheostomy. 4 interrupted sutures were used to secure tracheostomy to neck. Patient tolerated the procedure well with no immediate complications noted. Good hemostasis was achieved at the end of procedure. Postprocedure chest x- ray was ordered and was pending at the time of this dictation and will be reviewed when available. Anesthesia: GETA Surgeon: Annika Spears Estimated blood loss (mL): 2 Pathology: none sent Condition: critical Disposition: ICU
--- NOTE | 2018-03-03 12:58 | P.DIET ---
Nutritional Evaluation Type of nutrition evaluation: follow-up Nutrition consult regarding: Tube Feeding Subjective Subjective Comments: Recent admission from 01/23-01/31 for MSSA bacteremia. Objective - Diagnosis Septic Shock - Objective Sprakers body weight: 67 kg % IBW: 88 Body Weight Used for Calculations: IBW Energy Needs - Lower Range (kCal/kg): 25 Energy Needs - Upper Range (kCal/kg): 30 Lower Limit kCal/kg (kCals): 1,675 Upper Limit kCal/kg (kCals): 2,016 Lower Limit Protein Factor (Grams per Kg): 1.2 Upper Limit Protein Factor (Grams per Kg): 1.4 Lower Protein Needs (Protein): 80 Upper Protein Needs (Protein): 94 Dietitian Reviewed in Medical Record: Curent medications, Intake & Output, Labs , Tube feeding Diet Order: TF only Objective Comments: PMH: HLD, MSSA Bacteremia, COPD, CVA, Osteoporosis, Neuropathy Nursing wound assessment : Pressure Injury mid spine, lower back and sacrum Meds include: Fentanyl, Versed, Vit C, Lipitor, Ferrous Sulfate, Solumedrol, Theragran, Beneprotein Labs include: Creatinine 2.14, estGFR 31, Random Glucose 111 +stool Assessment Assessment: Pt continues at nutritional risk r/t need for TF'ing. Peg tube placement 02/28; TF'ing on-hold for Trach placement today. When able to resume TF'ing, Rec Jevity 1.5 @ goal rate of 50 mls/hr to provide 1800 kcals, 77 gms protein and 912 mls of free water. Assessed protein needs will be met w/TF'ing @ goal rate; therefore, Beneprotein is not necessary at this time. Noted pt w/elevated renal labs-Nephrology following. Wt changes noted. Free water flushes as ordered. Additional Recs r/t clinical course. Recommendations: 1. When able to resume TF'ing, Rec Jevity 1.5 @ goal rate of 50 mls/hr 2. Assessed protein needs will be met w/TF'ing @ goal rate; therefore, Beneprotein is not necessary at this time 3. Free water flushes as ordered 4. Additional Recs r/t clinical course Dietitian to Monitor: Lab values, Renal labs, Intake & Output, Tube feeding tolerance, Weight change, Wound/skin status, Medical course
--- NOTE | 2018-03-03 13:14 | XR ---
EXAM DATE: 03/03/2018 1:08 PM EDT AGE/SEX: 62 years / Male INDICATIONS: Post ET tube placement CLINICAL DATA: This is the patient's initial encounter. Patient reports that signs and symptoms have been present for 1 day and indicates a pain score of Nonresponsive. MEDICAL/SURGICAL HISTORY: Cardiovascular disease. septic shock CABG. COMPARISON: [facility], CHEST 1V SINGLE AP, 02/24/2018. . FINDINGS: Tracheostomy in good position. Postoperative sternotomy and aortic valve replacement. Basilar airspac e disease and effusions slightly increased from February 24. No pneumothorax. CONCLUSION: Increase in basilar airspace disease and pleural effusions since February 24. Tracheostomy in good posi tion. Previous sternotomy with aortic valve replacement. Electronically signed by: Clifton Bacon MD 03/03/2018 1:13 PM EDT
--- NOTE | 2018-03-03 14:00 | P.PNNP ---
Subjective Interval history: Failed CPAP yesterday. S/P trach placement today. Remains sedated on vent. Hypotensive, Levophed on hold, receiving 0.9% NS bolus. Renal function better. <Munira Finnegan - Last Filed: 03/03/18 13:49> Physical Exam Vital signs: Vital Signs 03/02/18 13:56 03/02/18 14:00 03/02/18 15:47 Temperature Pulse Rate 96 H 72 Respiratory Rate 17 14 Blood Pressure Pulse Oximetry 97 03/02/18 16:00 03/02/18 17:13 03/02/18 18:00 Temperature 97.7 F Pulse Rate 72 66 Respiratory Rate 16 15 Blood Pressure 93/58 L Pulse Oximetry 96 03/02/18 20:00 03/02/18 21:00 03/02/18 21:24 Temperature 98.5 F Pulse Rate 68 69 66 Respiratory Rate 15 17 15 Blood Pressure 97/63 L 111/69 Pulse Oximetry 99 97 96 03/02/18 22:00 03/02/18 23:00 03/02/18 23:57 Temperature Pulse Rate 71 68 Respiratory Rate 15 16 15 Blood Pressure 115/73 102/65 Pulse Oximetry 97 97 97 03/03/18 00:00 03/03/18 01:00 03/03/18 02:00 Temperature 97.9 F Pulse Rate 74 70 70 Respiratory Rate 15 15 Blood Pressure 106/69 104/67 Pulse Oximetry 96 97 03/03/18 04:00 03/03/18 04:04 03/03/18 06:00 Temperature 97.5 F L Pulse Rate 72 71 Respiratory Rate 17 15 Blood Pressure 107/63 Pulse Oximetry 97 97 03/03/18 08:00 03/03/18 09:13 03/03/18 10:00 Temperature Pulse Rate 66 65 Respiratory Rate 17 Blood Pressure Pulse Oximetry 100 03/03/18 10:09 03/03/18 10:26 03/03/18 11:00 Temperature 98.4 F 98.5 F Pulse Rate 76 74 Respiratory Rate 16 15 Blood Pressure 99/63 L 102/69 Pulse Oximetry 99 100 100 03/03/18 12:00 03/03/18 12:23 03/03/18 12:52 Temperature Pulse Rate 73 Respiratory Rate 18 15 Blood Pressure Pulse Oximetry 100 03/03/18 13:48 Temperature Pulse Rate 65 Respiratory Rate Blood Pressure Pulse Oximetry Intake & Output 03/02/18 03/03/18 03/03/18 18:59 06:59 18:59 Intake Total 1082 / 1082 1135 / 1135 400 / 400 Output Total 1000 / 1000 1050 / 1050 Balance 82 / 82 85 / 85 400 / 400 Weight 62.7 kg Intake: IV 100 / 100 510 / 510 400 / 400 Versed Inj 50 mg In 50 ml @ 2 50 / 50 MG/HR 2 mls/hr IV.CONT TITRATE PRN Rx#:[id number] Azactam Inj 1,000 MG In NS Inj 100 / 100 200 / 200 100 / 100 100 ML @ 200 mls/hr IV.SIG Q6H ADRIEN Rx#:[id number] Diflucan 200 mg Premix Bag 100 100 / 100 ML @ 100 mls/hr IV.SIG Q24H ADRIEN Rx#:[id number] Venofer Inj 200 MG In NS Inj 110 / 110 100 ML @ 110 mls/hr IV.SIG Q24H ADRIEN Rx#:[id number] Ancef Inj 1,000 MG In NS Inj 100 / 100 100 ML @ 200 mls/hr IV.SIG Q12H ADRIEN Rx#:[id number] fentaNYL 10 mcg/mL Premix Drip 250 / 250 2,500 mcg In 250 ml @ 50 MCG/HR 5 mls/hr IV.SIG TITRATE PRN Rx #:[id number] Tube Feeding 82 / 82 325 / 325 Water Bolus Amount 900 / 900 300 / 300 Intake (Blood Product) Amt 0 / 0 Plt Pheresis A Leukoreduced 0 / 0 Unit [id number] Plt Pheresis A Leukoreduced 0 / 0 Unit [id number] Plt Pheresis B Leukoreduced 0 / 0 Unit [id number] Output: Urine 1000 / 1000 Stool 50 / 50 Urine Amount (Catheter) 1000 / 1000 Indwelling Urethral Catheter 1000 / 1000 Other: Date of Last Bowel Movement 03/01/18 03/01/18 03/03/18 - Constitutional thin, cachectic, chronically ill appearing Comments: sedated and unresponsive on vent - Routine HEENT Exam Head: Present: normocephalic - Routine Neck Exam Present: supple, full ROM - Routine Respiratory Exam Present: patient mechanically ventilated - Routine Cardiovascular Exam Present: RRR, S1, S2 - Routine Abdominal Exam Present: soft, normoactive bowel sounds - Routine Extremities Exam Present: pulses intact. Absent: edema - Routine Skin Exam Present: intact, dry, warm - Routine Neurological Exam sedated and unresponsive - Urinary Catheter Management Condom Cath placed during this visit: yes Urethral indwelling: Yes Reason for continuing: Acute urinary retention Insertion date: 02/24/18 Indwelling Urethral Catheter Cath placed during this visit: yes Reason for continuing: Acute urinary retention Insertion date: 02/24/18 Indwelling Temp Sensing Catheter Cath placed during this visit: yes, but has since been removed by the nurse Reason for continuing: Acute urinary retention Insertion date: 02/12/18 Insertion time: 20:15 Removal date: 02/20/18 Removal time: 16:00 <Munira Finnegan - Last Filed: 03/03/18 13:49> Vital signs: Vital Signs 03/02/18 15:47 03/02/18 16:00 03/02/18 17:13 Temperature 97.7 F Pulse Rate 72 72 Respiratory Rate 14 16 15 Blood Pressure 93/58 L Pulse Oximetry 96 03/02/18 18:00 03/02/18 20:00 03/02/18 21:00 Temperature 98.5 F Pulse Rate 66 68 69 Respiratory Rate 15 17 Blood Pressure 97/63 L 111/69 Pulse Oximetry 99 97 03/02/18 21:24 03/02/18 22:00 03/02/18 23:00 Temperature Pulse Rate 66 71 68 Respiratory Rate 15 15 16 Blood Pressure 115/73 102/65 Pulse Oximetry 96 97 97 03/02/18 23:57 03/03/18 00:00 03/03/18 01:00 Temperature 97.9 F Pulse Rate 74 70 Respiratory Rate 15 15 15 Blood Pressure 106/69 104/67 Pulse Oximetry 97 96 97 03/03/18 02:00 03/03/18 04:00 03/03/18 04:04 Temperature 97.5 F L Pulse Rate 70 72 Respiratory Rate 17 15 Blood Pressure 107/63 Pulse Oximetry 97 97 03/03/18 06:00 03/03/18 08:00 03/03/18 09:13 Temperature Pulse Rate 71 66 Respiratory Rate 17 Blood Pressure Pulse Oximetry 100 03/03/18 10:00 03/03/18 10:09 03/03/18 10:26 Temperature 98.4 F 98.5 F Pulse Rate 65 76 74 Respiratory Rate 16 15 Blood Pressure 99/63 L 102/69 Pulse Oximetry 99 100 03/03/18 11:00 03/03/18 12:00 03/03/18 12:23 Temperature Pulse Rate 73 Respiratory Rate 18 Blood Pressure Pulse Oximetry 100 100 03/03/18 12:52 03/03/18 13:04 03/03/18 13:06 Temperature Pulse Rate 70 72 Respiratory Rate 15 18 18 Blood Pressure 105/59 L 105/56 L Pulse Oximetry 100 100 03/03/18 13:08 03/03/18 13:10 03/03/18 13:12 Temperature Pulse Rate 71 69 70 Respiratory Rate 18 18 18 Blood Pressure 105/56 L 103/55 L 99/55 L Pulse Oximetry 100 100 100 03/03/18 13:14 03/03/18 13:16 03/03/18 13:18 Temperature Pulse Rate 70 71 71 Respiratory Rate 18 18 18 Blood Pressure 96/51 L 94/51 L 93/51 L Pulse Oximetry 100 100 100 03/03/18 13:19 03/03/18 13:20 03/03/18 13:22 Temperature Pulse Rate 71 70 69 Respiratory Rate 18 18 18 Blood Pressure 93/52 L 94/52 L 93/52 L Pulse Oximetry 100 100 100 03/03/18 13:24 03/03/18 13:26 03/03/18 13:28 Temperature Pulse Rate 68 68 67 Respiratory Rate 18 18 18 Blood Pressure 95/53 L 96/52 L 96/52 L Pulse Oximetry 100 100 100 03/03/18 13:30 03/03/18 13:32 03/03/18 13:34 Temperature Pulse Rate 67 67 67 Respiratory Rate 18 18 18 Blood Pressure 97/52 L 99/58 L 96/57 L Pulse Oximetry 100 100 100 03/03/18 13:36 03/03/18 13:38 03/03/18 13:40 Temperature Pulse Rate 66 66 66 Respiratory Rate 18 18 18 Blood Pressure 96/55 L 96/55 L 95/54 L Pulse Oximetry 100 100 100 03/03/18 13:42 03/03/18 13:44 03/03/18 13:46 Temperature Pulse Rate 66 65 65 Respiratory Rate 18 18 18 Blood Pressure 95/53 L 95/50 L 93/52 L Pulse Oximetry 98 98 98 03/03/18 13:48 03/03/18 13:50 Temperature Pulse Rate 66 67 Respiratory Rate 18 18 Blood Pressure 90/52 L 90/55 L Pulse Oximetry 97 97 Intake & Output 03/02/18 03/03/18 03/03/18 18:59 06:59 18:59 Intake Total 1082 / 1082 1135 / 1135 400 / 400 Output Total 1000 / 1000 1050 / 1050 Balance 82 / 82 85 / 85 400 / 400 Weight 62.7 kg Intake: IV 100 / 100 510 / 510 400 / 400 Versed Inj 50 mg In 50 ml @ 2 50 / 50 MG/HR 2 mls/hr IV.CONT TITRATE PRN Rx#:[id number] Azactam Inj 1,000 MG In NS Inj 100 / 100 200 / 200 100 / 100 100 ML @ 200 mls/hr IV.SIG Q6H ADRIEN Rx#:[id number] Diflucan 200 mg Premix Bag 100 100 / 100 ML @ 100 mls/hr IV.SIG Q24H ADRIEN Rx#:[id number] Venofer Inj 200 MG In NS Inj 110 / 110 100 ML @ 110 mls/hr IV.SIG Q24H ADRIEN Rx#:[id number] Ancef Inj 1,000 MG In NS Inj 100 / 100 100 ML @ 200 mls/hr IV.SIG Q12H ADRIEN Rx#:[id number] fentaNYL 10 mcg/mL Premix Drip 250 / 250 2,500 mcg In 250 ml @ 50 MCG/HR 5 mls/hr IV.SIG TITRATE PRN Rx #:[id number] Tube Feeding 82 / 82 325 / 325 Water Bolus Amount 900 / 900 300 / 300 Intake (Blood Product) Amt 0 / 0 Plt Pheresis A Leukoreduced 0 / 0 Unit [id number] Plt Pheresis A Leukoreduced 0 / 0 Unit [id number] Plt Pheresis B Leukoreduced 0 / 0 Unit [id number] Output: Urine 1000 / 1000 Stool 50 / 50 Urine Amount (Catheter) 1000 / 1000 Indwelling Urethral Catheter 1000 / 1000 Other: Date of Last Bowel Movement 03/01/18 03/01/18 03/03/18 - Urinary Catheter Management Condom Cath placed during this visit: no Indwelling Urethral Catheter Cath placed during this visit: no Indwelling Temp Sensing Catheter Cath placed during this visit: no <Evangelist Ashley - Last Filed: 03/03/18 15:02> Assessment and Plan - Assessment (1) Acute kidney injury Code(s): N17.9 - Acute kidney failure, unspecified Status: Acute Plan: Baseline 0.9-1.2. SHARON was due to overdiuresis and dehydration, possibly infection. Renal function is improving. Continue IVF. Changed to 1/2 NS @ 75 cc/hr. Repeat labs daily. Mild acidosis, monitor for now. He is non oliguric, monitor urine output. Avoid nephrotoxic agents. His prognosis is very poor. He is severely malnourished and at risk for complications. Monitor urine output and renal function. (2) Hyperosmolality and hypernatremia Code(s): E87.0 - Hyperosmolality and hypernatremia Status: Acute Plan: Improved. Change to 1/2 NS 300 ml Q6H free water with tube feeding Follow labs. (3) Hyperkalemia Code(s): E87.5 - Hyperkalemia Status: Acute Plan: Improved. Monitor for recurrence. (4) Sepsis Code(s): A41.9 - Sepsis, unspecified organism Status: Acute Plan: He is on IV Aztreonam, cefazolin, and fluconazole. Blood cultures negative Urine cultures positive. Continue supportive care. 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 Agree with above assessment and plan. IVF changed Hypernatremia has resolved. Renal function has improved. <Evangelist Ashley - Last Filed: 03/03/18 15:02>
[2018-03-03] MEDS: Sodium Chloride 0.45 % Inj 1,000 ML IV.CONT SCH (14:24)
--- NOTE | 2018-03-03 16:41 | P.PNONC ---
Subjective Interval history: Afebrile Patient had trach placement at approximately 11 AM today No bleeding Per [employer] PROF[employer]OR the argatroban is turned off and will be restarted tomorrow morning per manager [employer] Objective Vital Signs/Intake & Output: Vital Signs 03/02/18 17:13 03/02/18 18:00 03/02/18 20:00 Temperature 98.5 F Pulse Rate 66 68 Respiratory Rate 15 15 Blood Pressure 97/63 L Pulse Oximetry 96 99 03/02/18 21:00 03/02/18 21:24 03/02/18 22:00 Temperature Pulse Rate 69 66 71 Respiratory Rate 17 15 15 Blood Pressure 111/69 115/73 Pulse Oximetry 97 96 97 03/02/18 23:00 03/02/18 23:57 03/03/18 00:00 Temperature 97.9 F Pulse Rate 68 74 Respiratory Rate 16 15 15 Blood Pressure 102/65 106/69 Pulse Oximetry 97 97 96 03/03/18 01:00 03/03/18 02:00 03/03/18 04:00 Temperature 97.5 F L Pulse Rate 70 70 72 Respiratory Rate 15 17 Blood Pressure 104/67 107/63 Pulse Oximetry 97 97 03/03/18 04:04 03/03/18 06:00 03/03/18 08:00 Temperature Pulse Rate 71 66 Respiratory Rate 15 Blood Pressure Pulse Oximetry 97 03/03/18 09:13 03/03/18 10:00 03/03/18 10:09 Temperature 98.4 F Pulse Rate 65 76 Respiratory Rate 17 16 Blood Pressure 99/63 L Pulse Oximetry 100 99 03/03/18 10:26 03/03/18 11:00 03/03/18 12:00 Temperature 98.5 F Pulse Rate 74 73 Respiratory Rate 15 Blood Pressure 102/69 Pulse Oximetry 100 100 03/03/18 12:23 03/03/18 12:52 03/03/18 13:04 Temperature Pulse Rate 70 Respiratory Rate 18 15 18 Blood Pressure 105/59 L Pulse Oximetry 100 100 03/03/18 13:06 03/03/18 13:08 03/03/18 13:10 Temperature Pulse Rate 72 71 69 Respiratory Rate 18 18 18 Blood Pressure 105/56 L 105/56 L 103/55 L Pulse Oximetry 100 100 100 03/03/18 13:12 03/03/18 13:14 03/03/18 13:16 Temperature Pulse Rate 70 70 71 Respiratory Rate 18 18 18 Blood Pressure 99/55 L 96/51 L 94/51 L Pulse Oximetry 100 100 100 03/03/18 13:18 03/03/18 13:19 03/03/18 13:20 Temperature Pulse Rate 71 71 70 Respiratory Rate 18 18 18 Blood Pressure 93/51 L 93/52 L 94/52 L Pulse Oximetry 100 100 100 03/03/18 13:22 03/03/18 13:24 03/03/18 13:26 Temperature Pulse Rate 69 68 68 Respiratory Rate 18 18 18 Blood Pressure 93/52 L 95/53 L 96/52 L Pulse Oximetry 100 100 100 03/03/18 13:28 03/03/18 13:30 03/03/18 13:32 Temperature Pulse Rate 67 67 67 Respiratory Rate 18 18 18 Blood Pressure 96/52 L 97/52 L 99/58 L Pulse Oximetry 100 100 100 03/03/18 13:34 03/03/18 13:36 03/03/18 13:38 Temperature Pulse Rate 67 66 66 Respiratory Rate 18 18 18 Blood Pressure 96/57 L 96/55 L 96/55 L Pulse Oximetry 100 100 100 03/03/18 13:40 03/03/18 13:42 03/03/18 13:44 Temperature Pulse Rate 66 66 65 Respiratory Rate 18 18 18 Blood Pressure 95/54 L 95/53 L 95/50 L Pulse Oximetry 100 98 98 03/03/18 13:46 03/03/18 13:48 03/03/18 13:50 Temperature Pulse Rate 65 66 67 Respiratory Rate 18 18 18 Blood Pressure 93/52 L 90/52 L 90/55 L Pulse Oximetry 98 97 97 03/03/18 14:00 03/03/18 14:02 03/03/18 14:04 Temperature Pulse Rate 66 66 66 Respiratory Rate 18 18 18 Blood Pressure 96/59 L 98/60 L 98/60 L Pulse Oximetry 96 96 97 03/03/18 14:06 03/03/18 14:08 03/03/18 14:10 Temperature Pulse Rate 66 66 65 Respiratory Rate 18 18 18 Blood Pressure 97/59 L 97/61 L 97/60 L Pulse Oximetry 97 97 97 03/03/18 14:12 03/03/18 14:14 03/03/18 14:16 Temperature Pulse Rate 66 66 64 Respiratory Rate 18 18 18 Blood Pressure 96/58 L 95/58 L 97/59 L Pulse Oximetry 96 96 97 03/03/18 14:18 03/03/18 14:20 03/03/18 14:22 Temperature Pulse Rate 64 64 66 Respiratory Rate 18 18 18 Blood Pressure 96/59 L 95/59 L 93/58 L Pulse Oximetry 97 97 97 03/03/18 14:24 03/03/18 14:26 03/03/18 14:28 Temperature Pulse Rate 66 66 64 Respiratory Rate 18 18 18 Blood Pressure 94/58 L 97/61 L 98/63 L Pulse Oximetry 97 97 97 03/03/18 14:30 03/03/18 14:32 03/03/18 14:34 Temperature Pulse Rate 61 61 61 Respiratory Rate 18 18 18 Blood Pressure 114/68 108/65 105/62 Pulse Oximetry 98 99 100 03/03/18 14:36 03/03/18 14:38 03/03/18 14:45 Temperature Pulse Rate 62 62 68 Respiratory Rate 18 18 18 Blood Pressure 103/63 101/61 101/64 Pulse Oximetry 100 100 99 03/03/18 15:00 03/03/18 15:15 03/03/18 15:30 Temperature Pulse Rate 61 66 63 Respiratory Rate 18 18 18 Blood Pressure 102/64 103/66 102/65 Pulse Oximetry 100 99 100 03/03/18 15:34 03/03/18 15:45 03/03/18 16:00 Temperature 97.8 F Pulse Rate 63 62 Respiratory Rate 14 14 14 Blood Pressure 100/62 100/62 Pulse Oximetry 100 100 100 03/03/18 16:15 Temperature Pulse Rate 62 Respiratory Rate 14 Blood Pressure 94/60 L Pulse Oximetry 100 Intake & Output 03/02/18 03/03/18 03/03/18 18:59 06:59 18:59 Intake Total 1082 / 1082 1135 / 1135 400 / 400 Output Total 1000 / 1000 1050 / 1050 Balance 82 / 82 85 / 85 400 / 400 Weight 138 lb 3.677 oz Intake: IV 100 / 100 510 / 510 400 / 400 Versed Inj 50 mg In 50 ml @ 2 50 / 50 MG/HR 2 mls/hr IV.CONT TITRATE PRN Rx#:[id number] Azactam Inj 1,000 MG In NS Inj 100 / 100 200 / 200 100 / 100 100 ML @ 200 mls/hr IV.SIG Q6H ADRIEN Rx#:[id number] Diflucan 200 mg Premix Bag 100 100 / 100 ML @ 100 mls/hr IV.SIG Q24H ADRIEN Rx#:[id number] Venofer Inj 200 MG In NS Inj 110 / 110 100 ML @ 110 mls/hr IV.SIG Q24H ADRIEN Rx#:[id number] Ancef Inj 1,000 MG In NS Inj 100 / 100 100 ML @ 200 mls/hr IV.SIG Q12H ADRIEN Rx#:[id number] fentaNYL 10 mcg/mL Premix Drip 250 / 250 2,500 mcg In 250 ml @ 50 MCG/HR 5 mls/hr IV.SIG TITRATE PRN Rx #:[id number] Tube Feeding 82 / 82 325 / 325 Water Bolus Amount 900 / 900 300 / 300 Intake (Blood Product) Amt 0 / 0 Plt Pheresis A Leukoreduced 0 / 0 Unit [id number] Plt Pheresis A Leukoreduced 0 / 0 Unit [id number] Plt Pheresis B Leukoreduced 0 / 0 Unit [id number] Output: Urine 1000 / 1000 Stool 50 / 50 Urine Amount (Catheter) 1000 / 1000 Indwelling Urethral Catheter 1000 / 1000 Other: Date of Last Bowel Movement 03/01/18 03/01/18 03/03/18 Result Diagrams: 03/03/18 07:55 03/03/18 07:55 Laboratory Results: Laboratory Results - last 24 hr 03/02/18 03/02/18 03/03/18 17:43 20:35 00:00 WBC RBC Hgb Hct MCV MCH MCHC RDW Plt Count MPV Prelim Diff (Auto) Neut % (Auto) Lymph % (Auto) Eagle % (Auto) Eos % (Auto) Baso % (Auto) Neut # (Auto) Lymph # (Auto) Eagle # (Auto) Eos # (Auto) Baso # (Auto) WBC Differential Diff Scan Differential Comment Platelet Estimate Platelet Morphology Ovalocytes PT INR APTT 80.5 H D Sodium Potassium Chloride Carbon Dioxide Anion Gap BUN Creatinine Estimated GFR POC Glucose 178 H 150 H Random Glucose Calcium Prot Corrected Calcium Total Bilirubin AST ALT Alkaline Phosphatase Total Protein Albumin Bld Prod Order Comment 03/03/18 03/03/18 03/03/18 06:49 07:33 07:55 WBC RBC Hgb Hct MCV MCH MCHC RDW Plt Count MPV Prelim Diff (Auto) Neut % (Auto) Lymph % (Auto) Eagle % (Auto) Eos % (Auto) Baso % (Auto) Neut # (Auto) Lymph # (Auto) Eagle # (Auto) Eos # (Auto) Baso # (Auto) WBC Differential Diff Scan Differential Comment Platelet Estimate Platelet Morphology Ovalocytes PT INR APTT Sodium 141 Potassium 3.8 Chloride 110 H Carbon Dioxide 20.6 L Anion Gap 10 BUN 67 H Creatinine 2.14 H Estimated GFR 31 L POC Glucose 119 H Random Glucose 111 H Calcium 7.4 L* Prot Corrected Calcium 8.5 Total Bilirubin 0.4 AST 30 ALT 9 L Alkaline Phosphatase 45 Total Protein 5.1 L Albumin 1.9 L Bld Prod Order Comment 03/03/18 03/03/18 03/03/18 07:55 07:55 07:55 WBC 6.9 RBC 2.42 L Hgb 7.6 L Hct 23.2 L MCV 96.2 MCH 31.5 MCHC 32.7 RDW 19.6 H Plt Count 49 L MPV 11.2 H Prelim Diff (Auto) Slide review pending Neut % (Auto) 90.3 H Lymph % (Auto) 6.5 L Eagle % (Auto) 3.0 Eos % (Auto) 0.2 Baso % (Auto) 0.0 Neut # (Auto) 6.2 Lymph # (Auto) 0.4 L Eagle # (Auto) 0.2 Eos # (Auto) 0.0 Baso # (Auto) 0.0 WBC Differential . Diff Scan Auto diff confirmed Differential Comment . Platelet Estimate Low L Platelet Morphology Normal Ovalocytes 1+ H PT Cancelled 14.5 H INR Cancelled 1.4 APTT 36.4 H D Sodium Potassium Chloride Carbon Dioxide Anion Gap BUN Creatinine Estimated GFR POC Glucose Random Glucose Calcium Prot Corrected Calcium Total Bilirubin AST ALT Alkaline Phosphatase Total Protein Albumin Bld Prod Order Comment Culture Results: Microbiology 02/27/18 02:28 Aerobic Blood Culture - Preliminary Blood - Peripheral No growth in 4 days Anaerobic Blood Culture - Preliminary No growth in 4 days 02/27/18 02:20 Aerobic Blood Culture - Preliminary Blood - Peripheral No growth in 4 days Anaerobic Blood Culture - Preliminary No growth in 4 days Imaging Studies: Impressions Chest X-Ray 03/03/18 12:28 CONCLUSION: Increase in basilar airspace disease and pleural effusions since February 24. Tracheostomy in good position. Previous sternotomy with aortic valve replacement. Medications: Active Medications Generic Name Dose Route Start Last Admin Trade Name Freq PRN Reason Stop Dose Admin Acetaminophen 650 mg 02/14/18 09:23 02/19/18 15:18 Tylenol Liq PO 650 mg Q6H PRN Administration FEVER Albuterol 2.5 mg 02/05/18 00:00 02/09/18 21:20 Albuterol Neb (Prn) NEB 2.5 mg Q2HR NEB PRN Administration SHORTNESS OF BREATH/WHEEZING Amiodarone HCl 400 mg 02/11/18 12:00 03/03/18 08:10 Cordarone G-TUBE 400 mg BID ADRIEN Administration Artificial Tears 1 drops 02/14/18 21:00 03/03/18 08:11 Genteal Severe Dry Eye Relief 0.3% Opth Gel EACH EYE 1 drops BID ADRIEN Administration Ascorbic Acid 500 mg 02/15/18 09:00 03/03/18 08:11 Vitamin C NG/OG 500 mg DAILY ADRIEN Administration Aspirin 81 mg 02/06/18 09:00 03/03/18 12:52 Aspirin Chew PO 81 mg DAILY ADRIEN Administration Atorvastatin Calcium 40 mg 02/05/18 21:00 03/02/18 20:09 Lipitor PO 40 mg HS ADRIEN Administration Chlorhexidine Gluconate 15 ml 02/06/18 08:00 03/03/18 08:12 Peridex 0.12% Oral Kit OROPHARYNG 15 ml BID@0800,2000 ADRIEN Administration Clopidogrel Bisulfate 75 mg 02/06/18 09:00 02/25/18 09:13 Plavix PO 75 mg DAILY ADRIEN Administration Dextrose 50 ml 02/13/18 09:27 03/01/18 06:02 D50w Vial IV.PUSH 50 ml UNSCH PRN Administration PER HYPOGLYCEMIA PROTOCOL Digoxin 250 mcg 02/07/18 09:00 02/11/18 15:41 Lanoxin Inj IV.PUSH Not Given DAILY ADRIEN Duloxetine HCl 90 mg 02/05/18 09:00 02/11/18 11:18 Cymbalta PO Not Given DAILY ADRIEN Ferrous Sulfate 300 mg 02/15/18 09:00 03/03/18 08:10 Ferrrous Sulfate Liq PO 300 mg DAILY ADRIEN Administration Midazolam HCl 50 mg in 50 mls @ 2 mls/hr 02/23/18 05:46 03/03/18 08:26 Versed Inj IV.CONT 2 mg/hr TITRATE PRN 2 mls/hr Per Protocol Administration Protocol 2 MG/HR Fentanyl 2,500 mcg in 250 mls @ 5 mls/hr 02/23/18 12:12 03/03/18 08:27 Fentanyl 10 Mcg/Ml Premix Drip IV.SIG 100 mcg/hr TITRATE PRN 10 mls/hr Per Protocol Administration Protocol 50 MCG/HR Fluconazole 100 mls @ 100 mls/hr 02/27/18 00:00 03/03/18 00:03 Diflucan 200 Mg Premix Bag IV.SIG 100 mls/hr Q24H ADRIEN Administration Aztreonam 1,000 mg/ Sodium 100 mls @ 200 mls/hr 02/28/18 20:00 03/03/18 14:34 Chloride IV.SIG 200 mls/hr Q6H ADRIEN Administration Cefazolin Sodium 1,000 mg/ 100 mls @ 200 mls/hr 02/28/18 19:00 03/03/18 12:53 Sodium Chloride IV.SIG 200 mls/hr Q12H ADRIEN Administration Argatroban 250 mg/ Sodium 250 mls @ 7.56 mls/hr 03/02/18 15:00 03/02/18 22:00 Chloride IV.CONT 0 mcg/kg/min TITRATE PRN 0 mls/hr Per Protocol Titration Protocol 2 MCG/KG/MIN Iron Sucrose 200 mg/ Sodium 110 mls @ 110 mls/hr 03/02/18 16:00 03/02/18 19: 00 Chloride IV.SIG Infused Q24H ADRIEN Infusion Sodium Chloride 1,000 mls @ 50 mls/hr 03/03/18 15:00 03/03/18 14:24 1/2 Normal Saline Inj IV.CONT 75 mls/hr .Q20H ADRIEN Administration Insulin Aspart 0 unit 02/13/18 12:00 03/03/18 12:54 Novolog Insulin Correctional Sugar Inj SQ Not Given Q6HR ADRIEN Protocol Lactulose 30 ml 02/05/18 00:00 02/05/18 08:38 Lactulose Liq PO 30 ml DAILY PRN Administration SEV[employer]SITIP[employer] Lansoprazole 30 mg 02/15/18 09:00 03/03/18 08:11 Prevacid Solutab NG/OG 30 mg DAILY ADRIEN Administration Methylprednisolone Sodium Succinate 40 mg 02/20/18 09:00 03/03/18 08:11 Solumedrol Inj IV.PUSH 40 mg DAILY ADRIEN Administration Multivitamins 1 tab 02/05/18 09:00 03/03/18 08:11 Theragran PO 1 tab DAILY ADRIEN Administration Potassium Chloride 20 meq 02/14/18 09:00 02/25/18 20:39 Kcl G-TUBE Not Given BID ADRIEN Pregabalin 150 mg 02/04/18 23:50 03/03/18 08:11 Lyrica PO 150 mg BID ADRIEN Administration Senna/Docusate Sodium 1 tab 02/05/18 09:00 03/03/18 08:13 Linda-Colace PO Not Given BID ADRIEN Sodium Chloride 2 ml 02/05/18 09:00 03/03/18 08:12 Ns Flush IV.FLUSH 2 ml BID ADRIEN Administration Sterile Water 300 ml 03/02/18 18:00 03/03/18 12:53 Free Water G-TUBE 300 ml Q6HR ADRIEN Administration Vancomycin HCl 500 mg 02/11/18 16:00 03/03/18 12:54 Vancomycin Po G-TUBE 500 mg Q6HR ADRIEN Administration Whey 1 packet 02/08/18 13:00 03/03/18 12:54 Beneprotein Powder G-TUBE 1 packet TID ADRIEN Administration Objective Remarks: GENERAL: Chronically ill-appearing older male resting in bed in no obvious distress SKIN: Warm and dry. HEAD: Normocephalic. EYES: No scleral icterus. No injection or drainage. NECK: Tracheostomy midline. No oozing noted. CARDIOVASCULAR: Regular rate and rhythm without murmurs. Occasional PVC noted on patient monitor RESPIRATORY: Scattered rhonchi anteriorly. Patient on 35% PRVC settings GASTROINTESTINAL: Abdomen soft, non-tender, nondistended. EXTREMITIES: No cyanosis MUSCULOSKELETAL: Generalized weakness NEUROLOGICAL: Sedated. Patient's eyes are open but he is not following commands. Assessment/Plan - Plan 62-year-old male admitted to the hospital in late January for fever and hypotension. He was found to have septic shock. He has C. difficile colitis. Hematology consulted for thrombocytopenia. 1. Await RITA results. 2. Resume argatroban drip when cleared by the manager school. Continue to monitor CBC, APTT and LFTs. 3. Monitor for bleeding. - Attending Statement The exam, history, and the medical decision-making described in the above note were completed with the assistance of the mid-level provider. I reviewed and agree with the findings presented. I attest that I had a [id number] encounter with the patient on the same day, and personally performed and documented my assessment and findings in the medical record.Pt sedated on vent. No bleeding reported. Platelet up to 49. RITA pending. Continue argatroban. Monitor CBC. May need platelet transfusion if he is going to have tracheostomy.
--- NOTE | 2018-03-03 16:43 | P.PNID ---
Subjective Remarks: remains on vent Antibiotics: azactam cefazolin oral vanco fluconazol Allergies/Adverse Reactions: Allergies No Known Allergies Allergy (Verified 02/04/18 18:10) Objective Vital Signs 03/02/18 17:13 03/02/18 18:00 03/02/18 20:00 Temperature 98.5 F Pulse Rate 66 68 Respiratory Rate 15 15 Blood Pressure 97/63 L Pulse Oximetry 96 99 03/02/18 21:00 03/02/18 21:24 03/02/18 22:00 Temperature Pulse Rate 69 66 71 Respiratory Rate 17 15 15 Blood Pressure 111/69 115/73 Pulse Oximetry 97 96 97 03/02/18 23:00 03/02/18 23:57 03/03/18 00:00 Temperature 97.9 F Pulse Rate 68 74 Respiratory Rate 16 15 15 Blood Pressure 102/65 106/69 Pulse Oximetry 97 97 96 03/03/18 01:00 03/03/18 02:00 03/03/18 04:00 Temperature 97.5 F L Pulse Rate 70 70 72 Respiratory Rate 15 17 Blood Pressure 104/67 107/63 Pulse Oximetry 97 97 03/03/18 04:04 03/03/18 06:00 03/03/18 08:00 Temperature Pulse Rate 71 66 Respiratory Rate 15 Blood Pressure Pulse Oximetry 97 03/03/18 09:13 03/03/18 10:00 03/03/18 10:09 Temperature 98.4 F Pulse Rate 65 76 Respiratory Rate 17 16 Blood Pressure 99/63 L Pulse Oximetry 100 99 03/03/18 10:26 03/03/18 11:00 03/03/18 12:00 Temperature 98.5 F Pulse Rate 74 73 Respiratory Rate 15 Blood Pressure 102/69 Pulse Oximetry 100 100 03/03/18 12:23 03/03/18 12:52 03/03/18 13:04 Temperature Pulse Rate 70 Respiratory Rate 18 15 18 Blood Pressure 105/59 L Pulse Oximetry 100 100 03/03/18 13:06 03/03/18 13:08 03/03/18 13:10 Temperature Pulse Rate 72 71 69 Respiratory Rate 18 18 18 Blood Pressure 105/56 L 105/56 L 103/55 L Pulse Oximetry 100 100 100 03/03/18 13:12 03/03/18 13:14 03/03/18 13:16 Temperature Pulse Rate 70 70 71 Respiratory Rate 18 18 18 Blood Pressure 99/55 L 96/51 L 94/51 L Pulse Oximetry 100 100 100 03/03/18 13:18 03/03/18 13:19 03/03/18 13:20 Temperature Pulse Rate 71 71 70 Respiratory Rate 18 18 18 Blood Pressure 93/51 L 93/52 L 94/52 L Pulse Oximetry 100 100 100 03/03/18 13:22 03/03/18 13:24 03/03/18 13:26 Temperature Pulse Rate 69 68 68 Respiratory Rate 18 18 18 Blood Pressure 93/52 L 95/53 L 96/52 L Pulse Oximetry 100 100 100 03/03/18 13:28 03/03/18 13:30 03/03/18 13:32 Temperature Pulse Rate 67 67 67 Respiratory Rate 18 18 18 Blood Pressure 96/52 L 97/52 L 99/58 L Pulse Oximetry 100 100 100 03/03/18 13:34 03/03/18 13:36 03/03/18 13:38 Temperature Pulse Rate 67 66 66 Respiratory Rate 18 18 18 Blood Pressure 96/57 L 96/55 L 96/55 L Pulse Oximetry 100 100 100 03/03/18 13:40 03/03/18 13:42 03/03/18 13:44 Temperature Pulse Rate 66 66 65 Respiratory Rate 18 18 18 Blood Pressure 95/54 L 95/53 L 95/50 L Pulse Oximetry 100 98 98 03/03/18 13:46 03/03/18 13:48 03/03/18 13:50 Temperature Pulse Rate 65 66 67 Respiratory Rate 18 18 18 Blood Pressure 93/52 L 90/52 L 90/55 L Pulse Oximetry 98 97 97 03/03/18 14:00 03/03/18 14:02 03/03/18 14:04 Temperature Pulse Rate 66 66 66 Respiratory Rate 18 18 18 Blood Pressure 96/59 L 98/60 L 98/60 L Pulse Oximetry 96 96 97 03/03/18 14:06 03/03/18 14:08 03/03/18 14:10 Temperature Pulse Rate 66 66 65 Respiratory Rate 18 18 18 Blood Pressure 97/59 L 97/61 L 97/60 L Pulse Oximetry 97 97 97 03/03/18 14:12 03/03/18 14:14 03/03/18 14:16 Temperature Pulse Rate 66 66 64 Respiratory Rate 18 18 18 Blood Pressure 96/58 L 95/58 L 97/59 L Pulse Oximetry 96 96 97 03/03/18 14:18 03/03/18 14:20 03/03/18 14:22 Temperature Pulse Rate 64 64 66 Respiratory Rate 18 18 18 Blood Pressure 96/59 L 95/59 L 93/58 L Pulse Oximetry 97 97 97 03/03/18 14:24 03/03/18 14:26 03/03/18 14:28 Temperature Pulse Rate 66 66 64 Respiratory Rate 18 18 18 Blood Pressure 94/58 L 97/61 L 98/63 L Pulse Oximetry 97 97 97 03/03/18 14:30 03/03/18 14:32 03/03/18 14:34 Temperature Pulse Rate 61 61 61 Respiratory Rate 18 18 18 Blood Pressure 114/68 108/65 105/62 Pulse Oximetry 98 99 100 03/03/18 14:36 03/03/18 14:38 03/03/18 14:45 Temperature Pulse Rate 62 62 68 Respiratory Rate 18 18 18 Blood Pressure 103/63 101/61 101/64 Pulse Oximetry 100 100 99 03/03/18 15:00 03/03/18 15:15 03/03/18 15:30 Temperature Pulse Rate 61 66 63 Respiratory Rate 18 18 18 Blood Pressure 102/64 103/66 102/65 Pulse Oximetry 100 99 100 03/03/18 15:34 03/03/18 15:45 03/03/18 16:00 Temperature 97.8 F Pulse Rate 63 62 Respiratory Rate 14 14 14 Blood Pressure 100/62 100/62 Pulse Oximetry 100 100 100 03/03/18 16:15 Temperature Pulse Rate 62 Respiratory Rate 14 Blood Pressure 94/60 L Pulse Oximetry 100 Intake & Output 03/02/18 03/03/18 03/03/18 18:59 06:59 18:59 Intake Total 1082 / 1082 1135 / 1135 400 / 400 Output Total 1000 / 1000 1050 / 1050 Balance 82 / 82 85 / 85 400 / 400 Weight 62.7 kg Intake: IV 100 / 100 510 / 510 400 / 400 Versed Inj 50 mg In 50 ml @ 2 50 / 50 MG/HR 2 mls/hr IV.CONT TITRATE PRN Rx#:[id number] Azactam Inj 1,000 MG In NS Inj 100 / 100 200 / 200 100 / 100 100 ML @ 200 mls/hr IV.SIG Q6H [facility] Rx#:[id number] Diflucan 200 mg Premix Bag 100 100 / 100 ML @ 100 mls/hr IV.SIG Q24H [facility] Rx#:[id number] Venofer Inj 200 MG In NS Inj 110 / 110 100 ML @ 110 mls/hr IV.SIG Q24H [facility] Rx#:[id number] Ancef Inj 1,000 MG In NS Inj 100 / 100 100 ML @ 200 mls/hr IV.SIG Q12H [facility] Rx#:[id number] fentaNYL 10 mcg/mL Premix Drip 250 / 250 2,500 mcg In 250 ml @ 50 MCG/HR 5 mls/hr IV.SIG TITRATE PRN Rx #:[id number] Tube Feeding 82 / 82 325 / 325 Water Bolus Amount 900 / 900 300 / 300 Intake (Blood Product) Amt 0 / 0 Plt Pheresis A Leukoreduced 0 / 0 Unit [id number] Plt Pheresis A Leukoreduced 0 / 0 Unit [id number] Plt Pheresis B Leukoreduced 0 / 0 Unit [id number] Output: Urine 1000 / 1000 Stool 50 / 50 Urine Amount (Catheter) 1000 / 1000 Indwelling Urethral Catheter 1000 / 1000 Other: Date of Last Bowel Movement 03/01/18 03/01/18 03/03/18 02/27/18 02:28 Blood - Peripheral Aerobic Blood Culture - Preliminary No growth in 4 days 02/27/18 02:28 Blood - Peripheral Anaerobic Blood Culture - Preliminary No growth in 4 days 02/27/18 02:20 Blood - Peripheral Aerobic Blood Culture - Preliminary No growth in 4 days 02/27/18 02:20 Blood - Peripheral Anaerobic Blood Culture - Preliminary No growth in 4 days Lab - Hematology Results 03/01/18 03/02/18 03/03/18 21:15 05:00 07:55 WBC 7.7 6.9 RBC 2.47 L 2.42 L Hgb 7.9 L 7.6 L Hct 24.0 L 23.2 L MCV 96.9 96.2 MCH 31.9 31.5 MCHC 32.9 32.7 RDW 19.7 H 19.6 H Plt Count 43 L 49 L MPV 11.0 11.2 H Prelim Diff (Auto) Slide review pending Slide review pending Neut % (Auto) 88.5 H 90.3 H Lymph % (Auto) 6.6 L 6.5 L [place] % (Auto) 4.6 3.0 Eos % (Auto) 0.2 0.2 Baso % (Auto) 0.1 0.0 Neut # (Auto) 6.8 6.2 Lymph # (Auto) 0.5 L 0.4 L [place] # (Auto) 0.4 0.2 Eos # (Auto) 0.0 0.0 Baso # (Auto) 0.0 0.0 WBC Differential . . Diff Scan Auto diff confirmed Auto diff confirmed Differential Comment . . Hypersegmented Neuts 1+ H Platelet Estimate Low L Low L Platelet Morphology Normal Normal Ovalocytes 1+ H 1+ H Keratocytes Occ H Smear Path Review Lab - Chemistry Results 03/01/18 03/01/18 03/02/18 16:40 21:15 00:16 Sodium Potassium Chloride Carbon Dioxide Anion Gap BUN Creatinine Estimated GFR POC Glucose 225 H 201 H Random Glucose Calcium Prot Corrected Calcium Phosphorus Iron 29 L TIBC 126 L % Saturation 23.0 Ferritin 880 H Total Bilirubin AST ALT Alkaline Phosphatase Total Protein Albumin Vitamin B12 1277 H Folate 19.4 H 03/02/18 03/02/18 03/02/18 05:00 05:25 12:01 Sodium 144 Potassium 3.9 Chloride 113 H Carbon Dioxide 20.6 L Anion Gap 10 BUN 79 H Creatinine 2.40 H Estimated GFR 27 L POC Glucose 137 H 114 H Random Glucose 146 H Calcium 7.3 L* Prot Corrected Calcium 8.2 L Phosphorus 4.6 Iron TIBC % Saturation Ferritin Total Bilirubin AST ALT Alkaline Phosphatase Total Protein 5.4 L Albumin 2.0 L Vitamin B12 Folate 03/02/18 03/03/18 03/03/18 17:43 00:00 06:49 Sodium Potassium Chloride Carbon Dioxide Anion Gap BUN Creatinine Estimated GFR POC Glucose 178 H 150 H 119 H Random Glucose Calcium Prot Corrected Calcium Phosphorus Iron TIBC % Saturation Ferritin Total Bilirubin AST ALT Alkaline Phosphatase Total Protein Albumin Vitamin B12 Folate 03/03/18 07:55 Sodium 141 Potassium 3.8 Chloride 110 H Carbon Dioxide 20.6 L Anion Gap 10 BUN 67 H Creatinine 2.14 H Estimated GFR 31 L POC Glucose Random Glucose 111 H Calcium 7.4 L* Prot Corrected Calcium 8.5 Phosphorus Iron TIBC % Saturation Ferritin Total Bilirubin 0.4 AST 30 ALT 9 L Alkaline Phosphatase 45 Total Protein 5.1 L Albumin 1.9 L Vitamin B12 Folate Imaging: ITS Impressions Abdomen/Bladder Ultrasound 02/05/18 00:00 CONCLUSION: 1. No evidence of hydronephrosis. 2. The echogenicity of the kidneys is equal to that of the liver which can be seen with medical renal disease. 3. Simple cyst in right kidney. 4. Suboptimal visualization of the left kidney. 5. Small amount of free fluid along the spleen. This could represent an adjacent pleural effusion. Head CT 02/15/18 12:23 CONCLUSION: 1. Negative CT Head non contrast. . Head MRI 02/16/18 08:28 CONCLUSION: 1. New focus of restricted diffusion high along the right cerebral vertex measuring 8 mm consistent with a new small focal acute infarction. 2. There is a new 5 mm area restricted diffusion high along the left cerebral vertex consistent with a new small focal acute infarction. 3. 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 This area is stable compared to the prior examination. 4. Stable bilateral cortical atrophy and mild chronic white matter changes. 5. Chronic bilateral mastoiditis. Abdomen X-Ray 02/17/18 00:00 CONCLUSION: Nonspecific bowel gas pattern. Chest CT 02/18/18 00:00 CONCLUSION: 1. Increasing basilar and dependent consolidation in both lungs most characteristic of pneumonia or aspiration. 2. Near complete resolution of previous small effusions. 3. Osteopenia with stable compression deformities in the spine. 4. Previous sternotomy with aortic valve replacement. 5. Right-sided central line, ET tube and NG tube in good position. Chest X-Ray 03/03/18 12:28 CONCLUSION: Increase in basilar airspace disease and pleural effusions since February 24. Tracheostomy in good position. Previous sternotomy with aortic valve replacement. Physical Exam: GENERAL: Intubated. On vent cachectic SKIN: Warm and dry. HEAD: Atraumatic. Normocephalic. EYES: Pupils equal and round. No scleral icterus. No injection or drainage. ENT: No nasal bleeding or discharge. Mucous membranes pale NECK: Trach in place site [place] CARDIOVASCULAR: Regular rate and rhythm. + diastolic blowing murmur on aortic valve point 1-2/6 today RESPIRATORY: No accessory muscle use. b/l rales to auscultation. Breath sounds equal bilaterally. GASTROINTESTINAL: Abdomen soft, tight, distended and tender . Hepatic and splenic margins not palpable. liquid brown stool in the dignishield bag : roberson in place with good amount of urine MUSCULOSKELETAL: Extremities without clubbing, cyanosis, or edema. No obvious deformities. warmt o cool to touch feet NEUROLOGICAL: Obtunded, unresponsive PSYCHIATRIC:unable to assess Assessment and Plan - Plan Sepsis C.diff ? VAP ; PSAE, KLEb - new infiltrates and difficulty weaning - CT and CXR look worse, though resp status improved with Previous MSSA sepsis with presumed PVE of aortic valve prosthesis, on treatment - tx included vanco+ gent w/o rifampin Acute renal insufficiency, improving slowly GFR CHF EF < 20 % sp SD troponin peaked @ 32 cont vanco + gent as a part of PVE Rx will not add rifampin while on amio 2/2 interaction with amiodarone Rifampin can be added if amiodarone is discontinued ccont cefepime and complete 7-14 days of PNA treatment Worsening leukocytosis, C.diff is likely the source Ileus New stroke worsening renal status: improved after vanco and gent stopped / new sepsis? Fungiuria cont azactam sont ancef cont C.diff tx: po vanco cont fluconazol x days monitor plts agree with hem/onc consult
[2018-03-03] MEDS: Iron Sucrose Inj 200 MG in Sodium Chlor 0.9% Inj 100 ML IV.SIG SCH (16:55)
--- NOTE | 2018-03-03 17:47 | P.PCN ---
Procedure: Diagnosis: Acute hypoxemic respiratory failure Procedure: Therapeutic bronchoscopy Operation: Timeout performed, patient properly identified, films and records reviewed. The patient is in the intensive care unit on mechanical ventilation via orotracheal intubation. The usual ICU monitoring devices are in place. Through a side-port in the indwelling orotracheal tube the flexible bronchoscope was delivered into the tracheobronchial tree. The main trachea immediately below the cricoid cartilage was clean without significant irritation. The main bronchial segments and subsegments were widely patent and unobstructed. The branching anatomy was normal. The bronchoscope and the endotracheal tube were then withdrawn to the level of the cricoid cartilage such that this could provide visualization for the insertion of a percutaneous tracheostomy tube by another operative team. Mechanical ventilation was maintained throughout the procedure. Following insertion of the percutaneous tracheostomy the bronchoscope was delivered down the new tracheostomy tube to ensure that the location in the mid trachea was correct. The location of the tip of the end of the tracheostomy tube was safely above the renny by about 4 cm. The inner cannula was then placed and mechanical ventilation was continued through the new tracheostomy tube. The remainder of the operative procedure for the surgical portion is dictated under different note. The patient remained hemodynamically stable throughout the procedure with oxygen saturation in excess of 95% throughout.
[2018-03-04] MEDS: Sodium Chloride 0.45 % Inj 1,000 ML IV.CONT SCH (04:52)
[2018-03-04] MEDS: Oral Hygiene Kit OROPHARYNG SCH ×3 (04:53→17:44)
[2018-03-04] MEDS: Insulin NovoLOG Aspart Correctional Sugar Inj SQ SCH ×3 (06:04→17:43)
--- NOTE | 2018-03-04 06:46 | XR ---
EXAM DATE: 03/04/2018 6:28 AM EDT AGE/SEX: 62 years / Male INDICATIONS: Shortness of breath, possible pulmonary disease. CLINICAL DATA: This is the patient's subsequent encounter. Patient reports that signs and symptoms h ave been present for 1 month and indicates a pain score of Nonresponsive. MEDICAL/SURGICAL HISTORY: Cardiovascular disease. Sepsis. CABG. COMPARISON: C, CHEST 1V SINGLE AP, 03/03/2018. . FINDINGS: There is a tracheostomy tube in place. The patient is status post sternotomy. There is a prosthetic v alve present. The heart size is normal. There is diffuse increased interstitial markings. There is fu rther increased density seen at the bases being worse at the left. There is silhouetting of the left hemidiaphragm. CONCLUSION: Diffuse increased interstitial markings likely related to edema. Bibasilar areas of consolidation, atelectasis, and/or effusion being worse on the left. Electronically signed by: Regan Chang MD 03/04/2018 6:44 AM EDT
[2018-03-04] MEDS ORDERED: Gelatin 12 MM/7 MM Topical Foam ONE (07:34)
[2018-03-04] MEDS: Pregabalin 75 MG Capsule PO SCH ×2 (08:11→21:09)
[2018-03-04] MEDS: Ferrrous Sulfate 300 MG/5 ML UDC PO SCH (08:11)
[2018-03-04] MEDS: Amiodarone 200 MG Tablet G-TUBE SCH ×2 (08:11→21:09)
[2018-03-04] MEDS: Senna/Docusate Sodium 8.6/50 MG Tablet PO SCH ×2 (08:11→21:09)
[2018-03-04] MEDS: Ascorbic Acid 500 MG Tablet NG/OG SCH (08:11)
[2018-03-04] MEDS: MethylPREDNISolone Sod Succinate Inj 40 MG/ML Vial IV.PUSH SCH (08:11)
[2018-03-04] MEDS: Beneprotein Powder Packet G-TUBE SCH ×3 (08:12→17:43)
[2018-03-04] MEDS: Hypromellose 0.3% Opth Gel 10 GM Bottle EACH EYE SCH ×2 (08:12→21:09)
[2018-03-04] MEDS: Chlorhexidine 0.12% Oral Kit 15 ML UDC OROPHARYNG SCH ×2 (08:12→21:07)
[2018-03-04 08:55] LABS: Hematocrit 21.8 % (39.0-51.0); Hemoglobin 7.1 gm/dL (13.0-17.0); Mean Corpuscular HGB Conc 32.8 % (32.0-36.0); Mean Corpuscular Hemoglobin 31.7 pg (27.0-34.0); Mean Corpuscular Volume 96.6 fL (80.0-100.0); Mean Platelet Volume 10.2 fL (7.0-11.0); Platelet Count 72 th/mm3 (150-450); Red Blood Count 2.26 mil/mm3 (4.50-5.90); Red Cell Distribution Width 20.2 % (11.6-17.2); White Blood Count 5.6 th/mm3 (4.0-11.0)
[2018-03-04 09:28] LABS: Albumin 1.9 g/dL (3.4-5.0); Calcium 6.8 mg/dL (8.5-10.1); Carbon Dioxide 18.4 meq/L (21.0-32.0); Potassium 3.2 meq/L (3.5-5.1)
[2018-03-04] MEDS: fentaNYL 10 mcg/mL Premix Drip 2,500 MCG/250 ML BAG IV.SIG PRN (09:33)
[2018-03-04] MEDS: Midazolam 50 MG/50 ML Inj 50 MG/50 ML BAG IV.CONT PRN (09:34)
--- NOTE | 2018-03-04 10:27 | XR ---
EXAM DATE: 03/04/2018 10:21 AM EDT AGE/SEX: 62 years / Male INDICATIONS: Ileus. CLINICAL DATA: This is the patient's subsequent encounter. Patient reports that signs and symptoms h ave been present for 1 month and indicates a pain score of Nonresponsive. MEDICAL/SURGICAL HISTORY: . Cardiovascular disease. Sepsis. CABG. COMPARISON: C, ABDOMEN 1V KUB, 02/17/2018. . FINDINGS: 2 AP views of the abdomen. Paucity of bowel gas in the abdomen. Nondistended segment of air-filled a scending colon is seen in the right hemiabdomen. Degenerative findings of the lumbar spine. CONCLUSION: Paucity of bowel gas in the abdomen. Nondilated small air-filled segment of the ascending colon seen. Electronically signed by: Fabiano Boggs MD 03/04/2018 10:25 AM EDT
--- NOTE | 2018-03-04 12:09 | P.PNNP ---
Subjective Interval history: Intubated with trach Physical Exam Vital signs: Vital Signs 03/03/18 12:23 03/03/18 12:52 03/03/18 13:04 Temperature Pulse Rate 70 Respiratory Rate 18 15 18 Blood Pressure 105/59 L Pulse Oximetry 100 100 03/03/18 13:06 03/03/18 13:08 03/03/18 13:10 Temperature Pulse Rate 72 71 69 Respiratory Rate 18 18 18 Blood Pressure 105/56 L 105/56 L 103/55 L Pulse Oximetry 100 100 100 03/03/18 13:12 03/03/18 13:14 03/03/18 13:16 Temperature Pulse Rate 70 70 71 Respiratory Rate 18 18 18 Blood Pressure 99/55 L 96/51 L 94/51 L Pulse Oximetry 100 100 100 03/03/18 13:18 03/03/18 13:19 03/03/18 13:20 Temperature Pulse Rate 71 71 70 Respiratory Rate 18 18 18 Blood Pressure 93/51 L 93/52 L 94/52 L Pulse Oximetry 100 100 100 03/03/18 13:22 03/03/18 13:24 03/03/18 13:26 Temperature Pulse Rate 69 68 68 Respiratory Rate 18 18 18 Blood Pressure 93/52 L 95/53 L 96/52 L Pulse Oximetry 100 100 100 03/03/18 13:28 03/03/18 13:30 03/03/18 13:32 Temperature Pulse Rate 67 67 67 Respiratory Rate 18 18 18 Blood Pressure 96/52 L 97/52 L 99/58 L Pulse Oximetry 100 100 100 03/03/18 13:34 03/03/18 13:36 03/03/18 13:38 Temperature Pulse Rate 67 66 66 Respiratory Rate 18 18 18 Blood Pressure 96/57 L 96/55 L 96/55 L Pulse Oximetry 100 100 100 03/03/18 13:40 03/03/18 13:42 03/03/18 13:44 Temperature Pulse Rate 66 66 65 Respiratory Rate 18 18 18 Blood Pressure 95/54 L 95/53 L 95/50 L Pulse Oximetry 100 98 98 03/03/18 13:46 03/03/18 13:48 03/03/18 13:50 Temperature Pulse Rate 65 66 67 Respiratory Rate 18 18 18 Blood Pressure 93/52 L 90/52 L 90/55 L Pulse Oximetry 98 97 97 03/03/18 14:00 03/03/18 14:02 03/03/18 14:04 Temperature Pulse Rate 66 66 66 Respiratory Rate 18 18 18 Blood Pressure 96/59 L 98/60 L 98/60 L Pulse Oximetry 96 96 97 03/03/18 14:06 03/03/18 14:08 03/03/18 14:10 Temperature Pulse Rate 66 66 65 Respiratory Rate 18 18 18 Blood Pressure 97/59 L 97/61 L 97/60 L Pulse Oximetry 97 97 97 03/03/18 14:12 03/03/18 14:14 03/03/18 14:16 Temperature Pulse Rate 66 66 64 Respiratory Rate 18 18 18 Blood Pressure 96/58 L 95/58 L 97/59 L Pulse Oximetry 96 96 97 03/03/18 14:18 03/03/18 14:20 03/03/18 14:22 Temperature Pulse Rate 64 64 66 Respiratory Rate 18 18 18 Blood Pressure 96/59 L 95/59 L 93/58 L Pulse Oximetry 97 97 97 03/03/18 14:24 03/03/18 14:26 03/03/18 14:28 Temperature Pulse Rate 66 66 64 Respiratory Rate 18 18 18 Blood Pressure 94/58 L 97/61 L 98/63 L Pulse Oximetry 97 97 97 03/03/18 14:30 03/03/18 14:32 03/03/18 14:34 Temperature Pulse Rate 61 61 61 Respiratory Rate 18 18 18 Blood Pressure 114/68 108/65 105/62 Pulse Oximetry 98 99 100 03/03/18 14:36 03/03/18 14:38 03/03/18 14:45 Temperature Pulse Rate 62 62 68 Respiratory Rate 18 18 18 Blood Pressure 103/63 101/61 101/64 Pulse Oximetry 100 100 99 03/03/18 15:00 03/03/18 15:15 03/03/18 15:30 Temperature Pulse Rate 61 66 63 Respiratory Rate 18 18 18 Blood Pressure 102/64 103/66 102/65 Pulse Oximetry 100 99 100 03/03/18 15:34 03/03/18 15:45 03/03/18 16:00 Temperature 97.8 F Pulse Rate 63 62 Respiratory Rate 14 14 14 Blood Pressure 100/62 100/62 Pulse Oximetry 100 100 100 03/03/18 16:15 03/03/18 18:00 03/03/18 20:00 Temperature 98.2 F Pulse Rate 62 68 65 Respiratory Rate 14 14 Blood Pressure 94/60 L 100/64 Pulse Oximetry 100 100 03/03/18 20:07 03/03/18 22:00 03/04/18 00:00 Temperature 98.1 F Pulse Rate 65 62 62 Respiratory Rate 14 14 Blood Pressure 108/67 Pulse Oximetry 100 100 03/04/18 02:00 03/04/18 02:03 03/04/18 04:00 Temperature 98.3 F Pulse Rate 62 72 Respiratory Rate 16 14 Blood Pressure 102/66 Pulse Oximetry 100 100 03/04/18 04:30 03/04/18 04:45 03/04/18 04:49 Temperature Pulse Rate 69 71 Respiratory Rate 17 17 19 Blood Pressure 101/63 103/63 Pulse Oximetry 100 100 100 03/04/18 05:00 03/04/18 05:15 03/04/18 05:30 Temperature Pulse Rate 74 69 74 Respiratory Rate 20 21 21 Blood Pressure 106/66 105/62 105/65 Pulse Oximetry 100 100 100 03/04/18 05:45 03/04/18 06:00 03/04/18 06:15 Temperature Pulse Rate 69 75 77 Respiratory Rate 20 22 16 Blood Pressure 103/68 106/65 113/71 Pulse Oximetry 100 100 100 03/04/18 06:30 03/04/18 06:45 03/04/18 07:00 Temperature Pulse Rate 74 76 80 Respiratory Rate 25 H 18 17 Blood Pressure 112/73 113/73 115/76 Pulse Oximetry 100 100 100 03/04/18 07:15 03/04/18 07:30 03/04/18 07:45 Temperature Pulse Rate 84 75 78 Respiratory Rate 15 14 20 Blood Pressure 118/76 115/71 115/72 Pulse Oximetry 99 100 100 03/04/18 08:00 03/04/18 08:15 03/04/18 08:30 Temperature Pulse Rate 75 89 80 Respiratory Rate 14 20 12 Blood Pressure 112/70 122/78 117/71 Pulse Oximetry 100 100 100 03/04/18 08:45 03/04/18 08:46 03/04/18 09:00 Temperature Pulse Rate 73 73 Respiratory Rate 21 18 17 Blood Pressure 109/66 96/59 L Pulse Oximetry 100 100 03/04/18 09:15 03/04/18 09:30 03/04/18 09:45 Temperature Pulse Rate 68 69 67 Respiratory Rate 17 18 17 Blood Pressure 94/60 L 92/62 L 103/64 Pulse Oximetry 100 83 L 100 03/04/18 10:00 03/04/18 10:15 03/04/18 10:30 Temperature Pulse Rate 68 66 68 Respiratory Rate 17 16 15 Blood Pressure 95/61 L 99/61 L 104/66 Pulse Oximetry 100 100 100 03/04/18 12:02 Temperature Pulse Rate Respiratory Rate 15 Blood Pressure Pulse Oximetry 100 Intake & Output 03/03/18 03/04/18 03/04/18 18:59 06:59 18:59 Intake Total 1232 / 1232 2522 / 2522 710 / 710 Output Total 1000 / 1000 1000 / 1000 Balance 232 / 232 1522 / 1522 710 / 710 Weight 62.2 kg Intake: IV 600 / 600 1400 / 1400 710 / 710 Versed Inj 50 mg In 50 ml @ 2 50 / 50 50 / 50 MG/HR 2 mls/hr IV.CONT TITRATE PRN Rx#:[id number] 1/2 Normal Saline Inj 1,000 ML 1000 / 1000 @ 50 mls/hr IV.CONT .Q20H [facility]RIEN Rx#:[id number] Azactam Inj 1,000 MG In NS Inj 200 / 200 200 / 200 100 / 100 100 ML @ 200 mls/hr IV.SIG Q6H AD[facility]EN Rx#:[id number] Diflucan 200 mg Premix Bag 100 100 / 100 100 / 100 ML @ 100 mls/hr IV.SIG Q24H ADRIEN Rx#:[id number] Venofer Inj 200 MG In NS Inj 110 / 110 100 ML @ 110 mls/hr IV.SIG Q24H AD[facility]EN Rx#:[id number] Ancef Inj 1,000 MG In NS Inj 100 / 100 100 / 100 100 / 100 100 ML @ 200 mls/hr IV.SIG Q12H [facility]EN Rx#:[id number] fentaNYL 10 mcg/mL Premix Drip 250 / 250 250 / 250 2,500 mcg In 250 ml @ 50 MCG/HR 5 mls/hr IV.SIG TITRATE PRN Rx #:[id number] Oral 0 / 0 Tube Feeding 32 / 32 422 / 422 Tube Irrigant 100 / 100 Water Bolus Amount 600 / 600 600 / 600 Intake (Blood Product) Amt 0 / 0 Plt Pheresis A Leukoreduced 0 / 0 Unit [id number] Plt Pheresis A Leukoreduced 0 / 0 Unit [id number] Plt Pheresis B Leukoreduced 0 / 0 Unit [id number] Output: Urine 950 / 950 Stool 50 / 50 0 / 0 Urine Amount (Catheter) 1000 / 1000 Indwelling Urethral Catheter 1000 / 1000 Other: Date of Last Bowel Movement 03/01/18 03/01/18 03/01/18 - Constitutional no acute distress - Routine HEENT Exam Head: Present: normocephalic - Routine Neck Exam Present: supple - Routine Respiratory Exam Present: patient mechanically ventilated - Routine Cardiovascular Exam Present: RRR - Routine Abdominal Exam Present: soft - Routine Skin Exam Present: intact - Routine Psychiatric Exam Present: unable to assess - Urinary Catheter Management Condom Cath placed during this visit: yes Urethral indwelling: Yes Reason for continuing: Acute urinary retention Insertion date: 02/24/18 Indwelling Urethral Catheter Cath placed during this visit: yes Reason for continuing: Acute urinary retention Insertion date: 02/24/18 Indwelling Temp Sensing Catheter Cath placed during this visit: yes, but has since been removed by the nurse Reason for continuing: Acute urinary retention Insertion date: 02/12/18 Insertion time: 20:15 Removal date: 02/20/18 Removal time: 16:00 Assessment and Plan - Assessment (1) Acute kidney injury Code(s): N17.9 - Acute kidney failure, unspecified Status: Acute Plan: Baseline 0.9-1.2. SHARON was due to overdiuresis and dehydration, possibly infection. Renal function is improving. Continue IVFs: On 07/19 NS @ 75 cc/hr. Creatinine improvin.1 -> 1.7 now. Repeat labs daily. Mild acidosis, monitor for now. He is non oliguric, monitor urine output. 950cc UOP/24 hours Avoid nephrotoxic agents. His prognosis is very poor. He is severely malnourished and at risk for complications. Monitor urine output and renal function. (2) Hyperosmolality and hypernatremia Code(s): E87.0 - Hyperosmolality and hypernatremia Status: Acute Plan: Improved. On 07/19 NS @75cc/hour 300 ml Q6H free water with tube feeding Follow labs - may stop free water tomorrow if Na stable. (3) Hyperkalemia Code(s): E87.5 - Hyperkalemia Status: Acute Plan: Improved. Monitor for recurrence. (4) Sepsis Code(s): A41.9 - Sepsis, unspecified organism Status: Acute Plan: He is on IV Aztreonam, cefazolin, and fluconazole. Blood cultures negative Urine cultures positive. Continue supportive care. 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 (7) Anemia Code(s): D64.9 - Anemia, unspecified Status: Acute Plan: On Venofer Transfuse if needed Monitor CBC
--- NOTE | 2018-03-04 13:03 | P.PNONC ---
Subjective Interval history: Intubated and sedated. Status post trach placement yesterday. Objective Vital Signs/Intake & Output: Vital Signs 03/03/18 13:04 03/03/18 13:06 03/03/18 13:08 Temperature Pulse Rate 70 72 71 Respiratory Rate 18 18 18 Blood Pressure 105/59 L 105/56 L 105/56 L Pulse Oximetry 100 100 100 03/03/18 13:10 03/03/18 13:12 03/03/18 13:14 Temperature Pulse Rate 69 70 70 Respiratory Rate 18 18 18 Blood Pressure 103/55 L 99/55 L 96/51 L Pulse Oximetry 100 100 100 03/03/18 13:16 03/03/18 13:18 03/03/18 13:19 Temperature Pulse Rate 71 71 71 Respiratory Rate 18 18 18 Blood Pressure 94/51 L 93/51 L 93/52 L Pulse Oximetry 100 100 100 03/03/18 13:20 03/03/18 13:22 03/03/18 13:24 Temperature Pulse Rate 70 69 68 Respiratory Rate 18 18 18 Blood Pressure 94/52 L 93/52 L 95/53 L Pulse Oximetry 100 100 100 03/03/18 13:26 03/03/18 13:28 03/03/18 13:30 Temperature Pulse Rate 68 67 67 Respiratory Rate 18 18 18 Blood Pressure 96/52 L 96/52 L 97/52 L Pulse Oximetry 100 100 100 03/03/18 13:32 03/03/18 13:34 03/03/18 13:36 Temperature Pulse Rate 67 67 66 Respiratory Rate 18 18 18 Blood Pressure 99/58 L 96/57 L 96/55 L Pulse Oximetry 100 100 100 03/03/18 13:38 03/03/18 13:40 03/03/18 13:42 Temperature Pulse Rate 66 66 66 Respiratory Rate 18 18 18 Blood Pressure 96/55 L 95/54 L 95/53 L Pulse Oximetry 100 100 98 03/03/18 13:44 03/03/18 13:46 03/03/18 13:48 Temperature Pulse Rate 65 65 66 Respiratory Rate 18 18 18 Blood Pressure 95/50 L 93/52 L 90/52 L Pulse Oximetry 98 98 97 03/03/18 13:50 03/03/18 14:00 03/03/18 14:02 Temperature Pulse Rate 67 66 66 Respiratory Rate 18 18 18 Blood Pressure 90/55 L 96/59 L 98/60 L Pulse Oximetry 97 96 96 03/03/18 14:04 03/03/18 14:06 03/03/18 14:08 Temperature Pulse Rate 66 66 66 Respiratory Rate 18 18 18 Blood Pressure 98/60 L 97/59 L 97/61 L Pulse Oximetry 97 97 97 03/03/18 14:10 03/03/18 14:12 03/03/18 14:14 Temperature Pulse Rate 65 66 66 Respiratory Rate 18 18 18 Blood Pressure 97/60 L 96/58 L 95/58 L Pulse Oximetry 97 96 96 03/03/18 14:16 03/03/18 14:18 03/03/18 14:20 Temperature Pulse Rate 64 64 64 Respiratory Rate 18 18 18 Blood Pressure 97/59 L 96/59 L 95/59 L Pulse Oximetry 97 97 97 03/03/18 14:22 03/03/18 14:24 03/03/18 14:26 Temperature Pulse Rate 66 66 66 Respiratory Rate 18 18 18 Blood Pressure 93/58 L 94/58 L 97/61 L Pulse Oximetry 97 97 97 03/03/18 14:28 03/03/18 14:30 03/03/18 14:32 Temperature Pulse Rate 64 61 61 Respiratory Rate 18 18 18 Blood Pressure 98/63 L 114/68 108/65 Pulse Oximetry 97 98 99 03/03/18 14:34 03/03/18 14:36 03/03/18 14:38 Temperature Pulse Rate 61 62 62 Respiratory Rate 18 18 18 Blood Pressure 105/62 103/63 101/61 Pulse Oximetry 100 100 100 03/03/18 14:45 03/03/18 15:00 03/03/18 15:15 Temperature Pulse Rate 68 61 66 Respiratory Rate 18 18 18 Blood Pressure 101/64 102/64 103/66 Pulse Oximetry 99 100 99 03/03/18 15:30 03/03/18 15:34 03/03/18 15:45 Temperature Pulse Rate 63 63 Respiratory Rate 18 14 14 Blood Pressure 102/65 100/62 Pulse Oximetry 100 100 100 03/03/18 16:00 03/03/18 16:15 03/03/18 18:00 Temperature 97.8 F Pulse Rate 62 62 68 Respiratory Rate 14 14 Blood Pressure 100/62 94/60 L Pulse Oximetry 100 100 03/03/18 20:00 08/17/18 20:07 03/03/18 22:00 Temperature 98.2 F Pulse Rate 65 65 62 Respiratory Rate 14 14 Blood Pressure 100/64 Pulse Oximetry 100 100 03/04/18 00:00 03/04/18 02:00 03/04/18 02:03 Temperature 98.1 F Pulse Rate 62 62 Respiratory Rate 14 16 Blood Pressure 108/67 Pulse Oximetry 100 100 03/04/18 04:00 03/04/18 04:30 03/04/18 04:45 Temperature 98.3 F Pulse Rate 72 69 71 Respiratory Rate 14 17 17 Blood Pressure 102/66 101/63 103/63 Pulse Oximetry 100 100 100 03/04/18 04:49 03/04/18 05:00 03/04/18 05:15 Temperature Pulse Rate 74 69 Respiratory Rate 19 20 21 Blood Pressure 106/66 105/62 Pulse Oximetry 100 100 100 03/04/18 05:30 03/04/18 05:45 03/04/18 06:00 Temperature Pulse Rate 74 69 75 Respiratory Rate 21 20 22 Blood Pressure 105/65 103/68 106/65 Pulse Oximetry 100 100 100 03/04/18 06:15 03/04/18 06:30 03/04/18 06:45 Temperature Pulse Rate 77 74 76 Respiratory Rate 16 25 H 18 Blood Pressure 113/71 112/73 113/73 Pulse Oximetry 100 100 100 03/04/18 07:00 03/04/18 07:15 03/04/18 07:30 Temperature Pulse Rate 80 84 75 Respiratory Rate 17 15 14 Blood Pressure 115/76 118/76 115/71 Pulse Oximetry 100 99 100 03/04/18 07:45 03/04/18 08:00 03/04/18 08:15 Temperature Pulse Rate 78 75 89 Respiratory Rate 20 14 20 Blood Pressure 115/72 112/70 122/78 Pulse Oximetry 100 100 100 03/04/18 08:30 03/04/18 08:45 03/04/18 08:46 Temperature Pulse Rate 80 73 Respiratory Rate 12 21 18 Blood Pressure 117/71 109/66 Pulse Oximetry 100 100 03/04/18 09:00 03/04/18 09:15 03/04/18 09:30 Temperature Pulse Rate 73 68 69 Respiratory Rate 17 17 18 Blood Pressure 96/59 L 94/60 L 92/62 L Pulse Oximetry 100 100 83 L 03/04/18 09:45 03/04/18 10:00 03/04/18 10:15 Temperature Pulse Rate 67 68 66 Respiratory Rate 17 17 16 Blood Pressure 103/64 95/61 L 99/61 L Pulse Oximetry 100 100 100 03/04/18 10:30 03/04/18 10:45 03/04/18 11:00 Temperature Pulse Rate 68 69 76 Respiratory Rate 15 17 19 Blood Pressure 104/66 103/63 97/60 L Pulse Oximetry 100 100 100 03/04/18 11:15 03/04/18 11:30 03/04/18 11:45 Temperature Pulse Rate 69 71 75 Respiratory Rate 16 18 17 Blood Pressure 91/57 L 104/61 109/66 Pulse Oximetry 97 99 100 03/04/18 12:00 03/04/18 12:02 Temperature 98.2 F Pulse Rate 80 Respiratory Rate 15 15 Blood Pressure 111/69 Pulse Oximetry 100 100 Intake & Output 03/03/18 03/04/18 03/04/18 18:59 06:59 18:59 Intake Total 1232 / 1232 2522 / 2522 710 / 710 Output Total 1000 / 1000 1000 / 1000 Balance 232 / 232 1522 / 1522 710 / 710 Weight 62.2 kg Intake: IV 600 / 600 1400 / 1400 710 / 710 Versed Inj 50 mg In 50 ml @ 2 50 / 50 50 / 50 MG/HR 2 mls/hr IV.CONT TITRATE PRN Rx#:[id number] 1/2 Normal Saline Inj 1,000 ML 1000 / 1000 @ 50 mls/hr IV.CONT .Q20H [facility] Rx#:[id number] Azactam Inj 1,000 MG In NS Inj 200 / 200 200 / 200 100 / 100 100 ML @ 200 mls/hr IV.SIG Q6H [facility] Rx#:[id number] Diflucan 200 mg Premix Bag 100 100 / 100 100 / 100 ML @ 100 mls/hr IV.SIG Q24H [facility]EN Rx#:[id number] Venofer Inj 200 MG In NS Inj 110 / 110 100 ML @ 110 mls/hr IV.SIG Q24H [facility] Rx#:[id number] Ancef Inj 1,000 MG In NS Inj 100 / 100 100 / 100 100 / 100 100 ML @ 200 mls/hr IV.SIG Q12H [facility]EN Rx#:[id number] fentaNYL 10 mcg/mL Premix Drip 250 / 250 250 / 250 2,500 mcg In 250 ml @ 50 MCG/HR 5 mls/hr IV.SIG TITRATE PRN Rx #:[id number] Oral 0 / 0 Tube Feeding 32 / 32 422 / 422 Tube Irrigant 100 / 100 Water Bolus Amount 600 / 600 600 / 600 Intake (Blood Product) Amt 0 / 0 Plt Pheresis A Leukoreduced 0 / 0 Unit [id number] Plt Pheresis A Leukoreduced 0 / 0 Unit [id number] Plt Pheresis B Leukoreduced 0 / 0 Unit [id number] Output: Urine 950 / 950 Stool 50 / 50 0 / 0 Urine Amount (Catheter) 1000 / 1000 Indwelling Urethral Catheter 1000 / 1000 Other: Date of Last Bowel Movement 03/01/18 03/01/18 03/01/18 Result Diagrams: 03/04/18 08:00 03/04/18 08:00 Laboratory Results: Laboratory Results - last 24 hr 03/03/18 03/03/18 03/04/18 16:51 23:55 06:05 WBC RBC Hgb Hct MCV MCH MCHC RDW Plt Count MPV APTT Sodium Potassium Chloride Carbon Dioxide Anion Gap BUN Creatinine Estimated GFR POC Glucose 131 H 134 H 127 H Random Glucose Calcium Prot Corrected Calcium Total Bilirubin AST ALT Alkaline Phosphatase Total Protein Albumin 03/04/18 03/04/18 03/04/18 07:53 08:00 08:00 WBC 5.6 RBC 2.26 L Hgb 7.1 L Hct 21.8 L MCV 96.6 MCH 31.7 MCHC 32.8 RDW 20.2 H Plt Count 72 L D MPV 10.2 APTT 58.5 H D Sodium Potassium Chloride Carbon Dioxide Anion Gap BUN Creatinine Estimated GFR POC Glucose 115 H Random Glucose Calcium Prot Corrected Calcium Total Bilirubin AST ALT Alkaline Phosphatase Total Protein Albumin 03/04/18 08:00 WBC RBC Hgb Hct MCV MCH MCHC RDW Plt Count MPV APTT Sodium 137 Potassium 3.2 L Chloride 107 Carbon Dioxide 18.4 L Anion Gap 12 BUN 55 H Creatinine 1.75 H Estimated GFR 39 L POC Glucose Random Glucose 114 H Calcium 6.8 L* Prot Corrected Calcium 7.9 L Total Bilirubin 0.3 AST 27 ALT 12 Alkaline Phosphatase 48 Total Protein 5.0 L Albumin 1.9 L Culture Results: Microbiology 02/27/18 02:28 Aerobic Blood Culture - Final Blood - Peripheral No growth in 5 days Anaerobic Blood Culture - Final No growth in 5 days 02/27/18 02:20 Aerobic Blood Culture - Final Blood - Peripheral No growth in 5 days Anaerobic Blood Culture - Final No growth in 5 days Imaging Studies: Impressions Chest X-Ray 03/03/18 12:28 CONCLUSION: Increase in basilar airspace disease and pleural effusions since February 24. Tracheostomy in good position. Previous sternotomy with aortic valve replacement. Abdomen X-Ray 03/04/18 00:00 CONCLUSION: Paucity of bowel gas in the abdomen. Nondilated small air-filled segment of the ascending colon seen. Chest X-Ray 03/04/18 06:00 CONCLUSION: Diffuse increased interstitial markings likely related to edema. Bibasilar areas of consolidation, atelectasis, and/or effusion being worse on the left. Medications: Active Medications Generic Name Dose Route Start Last Admin Trade Name Freq PRN Reason Stop Dose Admin Acetaminophen 650 mg 02/14/18 09:23 02/19/18 15:18 Tylenol Liq PO 650 mg Q6H PRN Administration FEVER Albuterol 2.5 mg 02/05/18 00:00 03/03/18 20:06 Albuterol Neb (Prn) NEB 2.5 mg Q2HR NEB PRN Administration SHORTNESS OF BREATH/WHEEZING Amiodarone HCl 400 mg 02/11/18 12:00 03/04/18 08:11 Cordarone G-TUBE 400 mg BID ADRIEN Administration Artificial Tears 1 drops 02/14/18 21:00 03/04/18 08:12 Genteal Severe Dry Eye Relief 0.3% Opth Gel EACH EYE 1 drops BID ADRIEN Administration Ascorbic Acid 500 mg 02/15/18 09:00 03/04/18 08:11 Vitamin C NG/OG 500 mg DAILY ADRIEN Administration Aspirin 81 mg 02/06/18 09:00 03/04/18 08:11 Aspirin Chew PO 81 mg DAILY ADRIEN Administration Atorvastatin Calcium 40 mg 02/05/18 21:00 03/03/18 20:22 Lipitor PO 40 mg HS ADRIEN Administration Chlorhexidine Gluconate 15 ml 02/06/18 08:00 03/04/18 08:12 Peridex 0.12% Oral Kit OROPHARYNG 15 ml BID@0800,2000 ADRIEN Administration Clopidogrel Bisulfate 75 mg 02/06/18 09:00 02/25/18 09:13 Plavix PO 75 mg DAILY ADRIEN Administration Dextrose 50 ml 02/13/18 09:27 03/01/18 06:02 D50w Vial IV.PUSH 50 ml UNSCH PRN Administration PER HYPOGLYCEMIA PROTOCOL Digoxin 250 mcg 02/07/18 09:00 02/11/18 15:41 Lanoxin Inj IV.PUSH Not Given DAILY ADRIEN Duloxetine HCl 90 mg 02/05/18 09:00 02/11/18 11:18 Cymbalta PO Not Given DAILY ADRIEN Ferrous Sulfate 300 mg 02/15/18 09:00 03/04/18 08:11 Ferrrous Sulfate Liq PO 300 mg DAILY ADRIEN Administration Midazolam HCl 50 mg in 50 mls @ 2 mls/hr 02/23/18 05:46 03/04/18 09:34 Versed Inj IV.CONT 3 mg/hr TITRATE PRN 3 mls/hr Per Protocol Administration Protocol 2 MG/HR Fentanyl 2,500 mcg in 250 mls @ 5 mls/hr 02/23/18 12:12 03/04/18 09:33 Fentanyl 10 Mcg/Ml Premix Drip IV.SIG 50 mcg/hr TITRATE PRN 5 mls/hr Per Protocol Administration Protocol 50 MCG/HR Fluconazole 100 mls @ 100 mls/hr 02/27/18 00:00 03/04/18 09:34 Diflucan 200 Mg Premix Bag IV.SIG Infused Q24H ADRIEN Infusion Aztreonam 1,000 mg/ Sodium 100 mls @ 200 mls/hr 02/28/18 20:00 03/04/18 09:32 Chloride IV.SIG Infused Q6H AD[facility]EN Infusion Cefazolin Sodium 1,000 mg/ 100 mls @ 200 mls/hr 02/28/18 19:00 03/04/18 09:32 Sodium Chloride IV.SIG Infused Q12H [facility]EN Infusion Argatroban 250 mg/ Sodium 250 mls @ 7.56 mls/hr 03/02/18 15:00 03/04/18 06:00 Chloride IV.CONT 2 mcg/kg/min TITRATE PRN 7.56 mls/hr Per Protocol Titration Protocol 2 MCG/KG/MIN Iron Sucrose 200 mg/ Sodium 110 mls @ 110 mls/hr 03/02/18 16:00 03/04/18 09: 32 Chloride IV.SIG Infused Q24H ADRIEN Infusion Sodium Chloride 1,000 mls @ 50 mls/hr 03/03/18 15:00 03/04/18 04:52 1/2 Normal Saline Inj IV.CONT 50 mls/hr .Q20H AD[facility]EN Administration Insulin Aspart 0 unit 02/13/18 12:00 03/04/18 11:49 Novolog Insulin Correctional Sugar Inj SQ Not Given Q6HR ADRIEN Protocol Lactulose 30 ml 02/05/18 00:00 02/05/18 08:38 Lactulose Liq PO 30 ml DAILY PRN Administration SEVERE CONSITIPATION Lansoprazole 30 mg 02/15/18 09:00 03/04/18 08:11 Prevacid Solutab NG/OG 30 mg DAILY ADRIEN Administration Methylprednisolone Sodium Succinate 40 mg 02/20/18 09:00 03/04/18 08:11 Solumedrol Inj IV.PUSH 40 mg DAILY ADRIEN Administration Metoclopramide HCl 5 mg 03/04/18 10:00 03/04/18 11:48 Reglan Inj IV.PUSH 5 mg Q8HR ADRIEN Administration Protocol Multivitamins 1 tab 02/05/18 09:00 03/04/18 08:11 Theragran PO 1 tab DAILY ADRIEN Administration Potassium Chloride 20 meq 02/14/18 09:00 02/25/18 20:39 Kcl G-TUBE Not Given BID ADRIEN Pregabalin 150 mg 02/04/18 23:50 03/04/18 08:11 Lyrica PO 150 mg BID ADRIEN Administration Senna/Docusate Sodium 1 tab 02/05/18 09:00 03/04/18 08:11 Linda-Colace PO 1 tab BID ADRIEN Administration Sodium Chloride 2 ml 02/05/18 09:00 03/04/18 08:12 Ns Flush IV.FLUSH 2 ml BID ADRIEN Administration Sterile Water 300 ml 03/02/18 18:00 03/04/18 11:49 Free Water G-TUBE 300 ml Q6HR ADRIEN Administration Vancomycin HCl 500 mg 02/11/18 16:00 03/04/18 11:49 Vancomycin Po G-TUBE 500 mg Q6HR ADRIEN Administration Whey 1 packet 02/08/18 13:00 03/04/18 11:59 Beneprotein Powder G-TUBE 1 packet TID ADRIEN Administration Objective Remarks: GENERAL: Ill-appearing male patient, intubated and sedated, in no acute distress. SKIN: Pale, warm and dry. HEAD: Normocephalic. EYES: No scleral icterus. No injection or drainage. NECK: Supple, trachea midline. + Tracheostomy attached to ventilator. CARDIOVASCULAR: Regular rate and rhythm without murmurs. RESPIRATORY: Anterior breath sounds with scattered rhonchi, equal bilaterally. No accessory muscle use.+ Vent. GASTROINTESTINAL: Abdomen soft, non-tender, nondistended. EXTREMITIES: No cyanosis, or edema. SCD and braces to BLE. MUSCULOSKELETAL: Decreased muscle tone. NEUROLOGICAL: Sedated. PSYCHIATRIC: Unable to evaluate, D/T sedation. Assessment/Plan - Plan 62-year-old male admitted to the hospital in late January for fever and hypotension. He was found to have septic shock. He has C. difficile colitis. Hematology consulted for thrombocytopenia. 1. Resume argatroban drip when cleared by the press operator automatic. Continue to monitor CBC, APTT and LFTs. 2. Monitor for bleeding. 3. Thrombocytopenia, platelets have increased. Patient status post 3 units platelets on 03/03/2018 for trach placement. - Attending Statement The exam, history, and the medical decision-making described in the above note were completed with the assistance of the mid-level provider. I reviewed and agree with the findings presented. I attest that I had a [id number] encounter with the patient on the same day, and personally performed and documented my assessment and findings in the medical record. 62 yoM ,sedated pancytopenia, HIT, Cdiff. s/p trach. Resume argatroban when cleared by surgery team.
[2018-03-04] MEDS: Iron Sucrose Inj 200 MG in Sodium Chlor 0.9% Inj 100 ML IV.SIG SCH (15:35)
--- NOTE | 2018-03-04 15:41 | P.PNCC ---
Subjective Subjective Remarks/Hospital Course: 62-year-old male with past medical history of [place] mechanical aortic valve (09/21/12 Dr. Gonzalez), on chronic anticoagulation with warfarin, atrial fibrillation postop from AVR , COPD on 2.5 L home O2, stroke in 2015 resulting in left-sided sensory deficits and neuropathy, osteoporosis with chronic low back pain. He was recently admitted to [facility] from 01/23 through 01/31/18 for MSSA bacteremia. It is believed that the original source of infection was a wound on his right index finger when electric drill slipped and created a puncture wound. He was discharged with right upper extremity PICC line receiving cefazolin 2 g IV every 8 hours and gentamicin 210 mg IV daily. He states that home health administered antibiotics at 17:00 and shortly thereafter he began having chills and rigors and sought medical attention at [facility]. He had no rash. Upon arrival, he was hypotensive in the low 80s. He was given 2 L S bolus but remained hypotensive so was started on Levophed. He then developed heart rate in the 140s, reportedly atrial flutter so he was started on Amiodarone drip in [place] and converted to sinus rhythm. He was transfused 2 units PRBC due to Hgb 9.3. His stool was nonbloody nonmelena but was Hemoccult positive. He was given zosyn and vancomycin. Critical care medicine was then contacted and accepted patient for transfer to [facility]. He denies tenderness/redness/drainage at PICC site. Aside from mechanical aortic valve, he has no other hardware or indwelling devices. He denies headache, cough, dysuria. He has had a few loose stools at home, but stools have sometimes been formed. He denies chest pain, does report some SOB. EKG at [place] had marked inferolateral ischemic changes. Obtained EKG upon arrival to [facility] which is improved. SUBJ 02/05: Patient remains critical ill appearing, complaints of chest tightness but denies pain. Remains on 8 mcg/min of Levophed to maintain map about 65. However increasing shortness of breath. Chest x-ray shows increasing pulmonary edema. Troponin was 27.5 currently on IV heparin therapeutic. Cardiology consult is pending at this time. I will stop on maintenance fluids give 40 mg IV Lasix and IV albumin 25 g 1. Patient is very critical patient and updated at the bedside 02/06: to labor custodian last night for [facility] with LAD stent complicated by vasospasm of the LAD. IABP placed. patient emergently intubated for acute hypoxic respiratory failure secondary to cardiogenic shock and pulmonary edema. started on milrinone at 0.375 mcg/kg/min and levophed. bumex drip started. remains critically ill. 02/07: Remains critically ill remains on Levophed and milrinone. Currently diuresing well with Bumex drip. IABP in place management per cardiology-good waveform and augmentation. Chest x-ray shows adequate positioning of IABP, diffuse bilateral pulmonary edema 02/08: Remains critical but showing some signs of improvement. Diuresing very well on Bumex infusion. Remains on Levophed and milrinone. IABP one-to-one with good augmentation management per cardiology. Chest x-ray shows improving edema but with persistent bilateral effusions. Will initiate weaning trials if tolerated 02/09: Still remains on pressors, unable to wean Levophed below 2 mcg/min. Milrinone currently on 0.375 mcg/kg/min. IABP removed yesterday. On sedation hold patient wakes up but remains lethargic. Weakly squeezes hand. Urine output excellent on Bumex, 4 L output in 24 hours. Will attempt CPAP today 02/10: Multiple episodes of V. fib V. tach arrest yesterday morning. Successfully resuscitated. Yesterday night had two-minute V. fib arrest return of spontaneous circulation in sinus rhythm after DC cardioversion 1. Currently remains on milrinone and low-dose Levophed. I will try to wean off Levophed introduce low-dose beta-rasheed due to recurrent arrhythmia. Keep potassium more than 4 magnesium more than 2 02/11: Patient still critical and cardiogenic shock requiring Levophed and milrinone. Urine output improved with adding Diamox. Approximately 2 L urine output in 24 hours, creatinine remained stable. Oxygenation slightly improved FiO2 reduced to 70% now. Overall prognosis remains poor family wants to continue aggressive care 02/12: Remains critical but slight improvement in oxygenation. But continues to require Levophed and milrinone the low-dose. Urine output remains adequate. Chest x-ray shows interval improvement. Creatinine remains stable to slightly improved. Add IV albumin to improve blood pressure and to promote diuresis. 02/13 Patient remains intubated and sedated with Versed and fentanyl. Afebrile, off Levophed remains on Milrinone and Heparin drip. 02/14: Hypothermic overnight. Remains on milrinone and heparin drips. Tolerating tube feeds at 20 cc now. Positive BM. No changes neurologically 02/15 Patient remains sedated with Versed and Fentanyl drips, on Milrinone 0.5. 02/16 Patient remains intubated sedated with Versed and Fentanyl infusion. On Milrinone and Heparin drips. CT brain yesterday showed no acute findings. Afebrile. 02/17 Patient remains sedated and intubated. Afebrile, On Milrinone and Heparin drip. 02/18: Remains critical continues to require milrinone. Urine output adequate. Chest x-ray shows bilateral infiltrate effusion. CT chest to better define effusions and infiltrate. Increase Bumex to 1 mg every 8 hours. Patient is persistently weak, will attempt SBT unlikely to be successfully extubated at this time. Most likely will need tracheostomy if family desires aggressive care 02/19: Remains intubated sedated with Versed and fentanyl. Transition to Precedex to facilitate weaning trials. Patient responding slightly more to verbal command, appears to track even though not following commands. Creatinine slightly increased with increased diuresis. Chest x-ray shows improved pleural effusions. CT chest yesterday did not show significant effusion but basilar consolidation. 02/20 Patient was extubated yesterday on 10L simple mask, on Precdex, Heparin and Milrinone drips. Tmax 101.1 yesterday 02/21: Febrile. Currently on 5 L nasal cannula. Continues on heparin drip with 500 units an hour. Received bumetanide 1 mg 1 today. Positive BM 02/22: Remains on 5 L nasal cannula. Remains on heparin drip. No changes neurologically remains medically stable. 02/23: Intubated early this morning secondary to acute respiratory failure. Blood pressure marginal likely due to sedation. Ejection fraction less than 20% . Discussed with at bedside. She was to proceed with tracheostomy in PEG tube placement. We will plan for within the next few days. 02/24: Remains sedated, orally intubated on mechanical ventilation. 02/25: Remains sedated, orally intubated on mechanical ventilation. Worsening renal function noted. Check UA, urine sodium and creatinine. Ordered Kayexalate for hyperkalemia and nephrology consulted. 02/26: Sedated, arousable, orally intubated on mechanical ventilation. Will hold Plavix for planned tracheostomy and PEG tube placement. Remains on heparin for anticoagulation. 02/27: Drowsy, arousable, orally intubated on mechanical ventilation. Awaiting tracheostomy and PEG tube placement. 02/28: Drowsy, arousable, remains orally intubated on mechanical ventilation. PEG tube scheduled for today. 03/01: Drowsy, arousable, remains orally intubated on mechanical ventilation. Underwent PEG tube placement on 02/28. Worsening thrombocytopenia noted and now down to 50,000. Will continue holding Plavix and heparin. Check HIT screen and consult hematology. Awaiting tracheostomy 03/02: Drowsy, arousable, remains orally intubated on mechanical vent relation. Hematology consult noted. 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 03/03: Intubated remains heavily sedated. Was unable to wean off the ventilator , became hypoxemic on CPAP yesterday. 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 Will transfuse 3 packed units of platelets prior to tracheostomy planned for 11 AM today. Platelet count 49,000 Subjective: 03/04 Trached yesterday. Had high residuals earlier today (500 mL) and tube feeds placed on hold. KUB unremarkable. Given reglan, now residual is 10 so resuming tube feeds. On CPAP via trach. Remains sedated on fentanyl and versed, will wean. Objective Vital Signs / I&O: Vital Signs 03/03/18 15:30 03/03/18 15:34 03/03/18 15:45 Temperature Pulse Rate 63 63 Respiratory Rate 18 14 14 Blood Pressure 102/65 100/62 Pulse Oximetry 100 100 100 03/03/18 16:00 03/03/18 16:15 03/03/18 18:00 Temperature 97.8 F Pulse Rate 62 62 68 Respiratory Rate 14 14 Blood Pressure 100/62 94/60 L Pulse Oximetry 100 100 03/03/18 20:00 03/03/18 20:07 03/03/18 22:00 Temperature 98.2 F Pulse Rate 65 65 62 Respiratory Rate 14 14 Blood Pressure 100/64 Pulse Oximetry 100 100 03/04/18 00:00 03/04/18 02:00 03/04/18 02:03 Temperature 98.1 F Pulse Rate 62 62 Respiratory Rate 14 16 Blood Pressure 108/67 Pulse Oximetry 100 100 03/04/18 04:00 03/04/18 04:30 03/04/18 04:45 Temperature 98.3 F Pulse Rate 72 69 71 Respiratory Rate 14 17 17 Blood Pressure 102/66 101/63 103/63 Pulse Oximetry 100 100 100 03/04/18 04:49 03/04/18 05:00 03/04/18 05:15 Temperature Pulse Rate 74 69 Respiratory Rate 19 20 21 Blood Pressure 106/66 105/62 Pulse Oximetry 100 100 100 03/04/18 05:30 03/04/18 05:45 03/04/18 06:00 Temperature Pulse Rate 74 69 75 Respiratory Rate 21 20 22 Blood Pressure 105/65 103/68 106/65 Pulse Oximetry 100 100 100 03/04/18 06:15 03/04/18 06:30 03/04/18 06:45 Temperature Pulse Rate 77 74 76 Respiratory Rate 16 25 H 18 Blood Pressure 113/71 112/73 113/73 Pulse Oximetry 100 100 100 03/04/18 07:00 03/04/18 07:15 03/04/18 07:30 Temperature Pulse Rate 80 84 75 Respiratory Rate 17 15 14 Blood Pressure 115/76 118/76 115/71 Pulse Oximetry 100 99 100 03/04/18 07:45 03/04/18 08:00 03/04/18 08:15 Temperature Pulse Rate 78 75 89 Respiratory Rate 20 14 20 Blood Pressure 115/72 112/70 122/78 Pulse Oximetry 100 100 100 03/04/18 08:30 03/04/18 08:45 03/04/18 08:46 Temperature Pulse Rate 80 73 Respiratory Rate 12 21 18 Blood Pressure 117/71 109/66 Pulse Oximetry 100 100 03/04/18 09:00 03/04/18 09:15 03/04/18 09:30 Temperature Pulse Rate 73 68 69 Respiratory Rate 17 17 18 Blood Pressure 96/59 L 94/60 L 92/62 L Pulse Oximetry 100 100 83 L 03/04/18 09:45 03/04/18 10:00 03/04/18 10:15 Temperature Pulse Rate 67 68 66 Respiratory Rate 17 17 16 Blood Pressure 103/64 95/61 L 99/61 L Pulse Oximetry 100 100 100 03/04/18 10:30 03/04/18 10:45 03/04/18 11:00 Temperature Pulse Rate 68 69 76 Respiratory Rate 15 17 19 Blood Pressure 104/66 103/63 97/60 L Pulse Oximetry 100 100 100 03/04/18 11:15 03/04/18 11:30 03/04/18 11:45 Temperature Pulse Rate 69 71 75 Respiratory Rate 16 18 17 Blood Pressure 91/57 L 104/61 109/66 Pulse Oximetry 97 99 100 03/04/18 12:00 03/04/18 12:02 03/04/18 14:00 Temperature 98.2 F Pulse Rate 80 69 Respiratory Rate 15 15 Blood Pressure 111/69 Pulse Oximetry 100 100 03/04/18 14:52 Temperature Pulse Rate Respiratory Rate 17 Blood Pressure Pulse Oximetry Intake & Output 03/03/18 03/04/18 03/04/18 18:59 06:59 18:59 Intake Total 1232 / 1232 2522 / 2522 810 / 810 Output Total 1000 / 1000 1000 / 1000 Balance 232 / 232 1522 / 1522 810 / 810 Weight 62.2 kg Intake: IV 600 / 600 1400 / 1400 810 / 810 Versed Inj 50 mg In 50 ml @ 2 50 / 50 50 / 50 MG/HR 2 mls/hr IV.CONT TITRATE PRN Rx#:[id number] 1/2 Normal Saline Inj 1,000 ML 1000 / 1000 @ 50 mls/hr IV.CONT .Q20H ADRIEN Rx#:[id number] Azactam Inj 1,000 MG In NS Inj 200 / 200 200 / 200 200 / 200 100 ML @ 200 mls/hr IV.SIG Q6H ADRIEN Rx#:[id number] Diflucan 200 mg Premix Bag 100 100 / 100 100 / 100 ML @ 100 mls/hr IV.SIG Q24H ADRIEN Rx#:[id number] Venofer Inj 200 MG In NS Inj 110 / 110 100 ML @ 110 mls/hr IV.SIG Q24H ADRIEN Rx#:[id number] Ancef Inj 1,000 MG In NS Inj 100 / 100 100 / 100 100 / 100 100 ML @ 200 mls/hr IV.SIG Q12H ADRIEN Rx#:[id number] fentaNYL 10 mcg/mL Premix Drip 250 / 250 250 / 250 2,500 mcg In 250 ml @ 50 MCG/HR 5 mls/hr IV.SIG TITRATE PRN Rx #:[id number] Oral 0 / 0 Tube Feeding 32 / 422 / 422 Tube Irrigant 100 / 100 Water Bolus Amount 600 / 600 600 / 600 Intake (Blood Product) Amt 0 / 0 Plt Pheresis A Leukoreduced 0 / 0 Unit [id number] Plt Pheresis A Leukoreduced 0 / 0 Unit [id number] Plt Pheresis B Leukoreduced 0 / 0 Unit [id number] Output: Urine 950 / 950 Stool 50 / 50 0 / 0 Urine Amount (Catheter) 1000 / 1000 Indwelling Urethral Catheter 1000 / 1000 Other: Date of Last Bowel Movement 03/01/18 03/01/18 03/01/18 Result Diagrams: 03/04/18 08:00 03/04/18 08:00 Objective Remarks: GENERAL: 62-year-old male lying in bed, trached. SKIN: cool HEAD: Atraumatic. Normocephalic. EYES: Pupils equal and round, 2 mm and reactive. ENT: No nasal bleeding or discharge. Orotracheally intubated. NECK: Tracheostomy in place, slight amount of blood on the dressing, nurse states has not had to change the dressing. . Supple, no JVD, no adenopathy/ thyromegaly. CARDIOVASCULAR: RRR. S1, S2. No S4. No murmurs rubs or gallops. RESPIRATORY: Orally intubated on mechanical ventilation, b/L equal air entry. GASTROINTESTINAL: Abdomen soft, non-tender, nondistended. no guarding. PEG in place MUSCULOSKELETAL: Extremities with trace bilateral lower extremity edema NEURO: Trached, eyes open to deep noxious stimuli. Assessment and Plan - Assessment and Plan Plan: NEURO/PSYCH: History of stroke in 2015 Neuropathy left upper and lower extremity Chronic low back pain Acetaminophen 650 every 6 hours as needed fever. 02/15 CT brain: No acute findings. 02/15 EEG : Encephalopathy, no epileptiform activity MRI brain 02/16: New small focal acute infarction right cerebral vertex and also left cerebral vertex. Neuro has followed. Continue ASA 81 mg daily. Continue pregabalin 150 mg p.o. twice daily. Holding duloxetine 90 mg p.o. daily. WEan off versed and fentanyl. RESP: Acute hypoxic respiratory failure COPD on 2.5 L home O2 currently on 5 L Prior tobacco abuse Bilateral pleural effusions PRVC 18/500/07/22/39. Perc trach 03/03. Continue daily CPAP Trials and transition to tpiece as as tolerated. Albuterol/ipratropium aerosols every 4 hours with albuterol aerosols every 2 hours as needed for dyspnea methylprednisolone succinate 40mg IV daily CV: V. tach/V. fib arrest NSTEMI Cardiogenic shock Acute systolic heart failure Atrial fibrillation with RVR [place] mechanical aortic valve (09/21/12 Dr. Gonzalez) s/p Tricuspid annuloplasty Monitor HR and BP keep MAP>65mmHg. Discontinued milrinone 0.25 mgc/kg/min 02/21 s/p cath And PCI -proximal LAD and large diagonal 90% stenosis, 2 BMS stent 02/05, mid LAD vasospasm post PCI Continue aspirin 81 mg daily, Hold clopidogrel starting 02/26 for trach/ PEG and will resume when plt >80. amiodarone 400mg TID, carvedilol 3.125mg BID Bumetanide 1mg IV q8h, reduce to 1 mg IV q24. discontinued 02/21. Stop Spironolactone in v/o hyperkalemia on 02/25 Continue atorvastatin 40 mg nightly. Off IABP 02/08/18 [place] 01/23/18no vegetation. Normal aortic mechanical valve with trivial aortic insufficiency. Tricuspid annuloplasty. Mild to moderate LV generalized hypokinesis Echo from 02/05: EF <20%, diffuse hypokinesis, bioprosthetic valve Preservationist is Romana Bartlett GI: Moderate protein calorie malnutrition with hypoalbuminemia Jevity 1.5, Goal 50 cc . Held earlier today for high residuals, now negligible residual so will resume tube feeds and monitor closely during advancement Reglan 5 mg IV q8 hours. KUB unremarkable. Status post PEG tube placement Lansoprazole for stress ulcer prophylactic Had normal EGD on 10/21/17 FEN/RENAL: Acute kidney injury Hypopotassemia Hypernatremia BPH Monitor renal function, I/O's, creatinine slowly improving Renal ultrasound to evaluate for evidence of obstruction -did not show any obstruction Discontinued bumetanide 1mg IV daily , spironolactone 25 mg twice daily stopped on 02/25 due to hyperkalemia and worsening renal function.. 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 difficile colitis PICC removed Discontinued IV vancomycin and gentamicin 02/20. Cefepime IV discontinued on and patient started on aztreonam and Ancef IV. C.diff tx: po vanco 02/11/18. 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 Received 2 units packed red cells in [place] [facility] due to anemia and shock. Monitor CBC. Continue holding Plavix and heparin. Hematology consulted for worsening thrombocytopenia. 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 Argatroban resumed. RITA pending. 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 Now on argatroban. Protonix for stress ulcer prophylaxis ACCESS: Left IJ central line placed 02/05/18. Now removed and PIV in place. Palliative care is following Level [address] Quintana discussed with at bedside on 02/23. Request continued aggressive care with tracheostomy if needed and PEG tube placement.
[2018-03-04] MEDS ORDERED: Potassium Chloride 20 MEQ Pwd Pkt NG/OG ONE (20:45)
[2018-03-05] MEDS: Oral Hygiene Kit OROPHARYNG SCH ×5 (00:01→23:40)
[2018-03-05] MEDS: Insulin NovoLOG Aspart Correctional Sugar Inj SQ SCH ×4 (00:01→17:14)
[2018-03-05 01:23] LABS: Baso % (Auto) 0.2 % (0.0-2.0); Hematocrit 21.5 % (39.0-51.0); Hemoglobin 7.1 gm/dL (13.0-17.0); Lymph # (Auto) 0.3 th/mm3 (1.0-4.8); Lymph % (Auto) 4.6 % (9.0-44.0); Mean Corpuscular HGB Conc 32.9 % (32.0-36.0); Mean Corpuscular Hemoglobin 31.5 pg (27.0-34.0); Mean Corpuscular Volume 95.7 fL (80.0-100.0); Mean Platelet Volume 9.7 fL (7.0-11.0); Mono # (Auto) 0.2 th/mm3 (0.0-0.9); Neut # (Auto) 6.1 th/mm3 (1.8-7.7); Neut % (Auto) 92.2 % (16.0-70.0); Platelet Count 73 th/mm3 (150-450); Red Blood Count 2.24 mil/mm3 (4.50-5.90); Red Cell Distribution Width 19.9 % (11.6-17.2); White Blood Count 6.7 th/mm3 (4.0-11.0)
[2018-03-05 02:02] LABS: Ovalocytes 1+; Platelet Morphology Normal (Normal)
[2018-03-05] MEDS: Sodium Chloride 0.45 % Inj 1,000 ML IV.CONT SCH (05:31)
[2018-03-05 06:11] LABS: Baso % (Auto) 0.1 % (0.0-2.0); Hematocrit 21.9 % (39.0-51.0); Hemoglobin 7.4 gm/dL (13.0-17.0); Lymph # (Auto) 0.4 th/mm3 (1.0-4.8); Lymph % (Auto) 6.1 % (9.0-44.0); Mean Corpuscular HGB Conc 33.9 % (32.0-36.0); Mean Corpuscular Hemoglobin 32.6 pg (27.0-34.0); Mean Corpuscular Volume 96.1 fL (80.0-100.0); Mean Platelet Volume 10.4 fL (7.0-11.0); Mono # (Auto) 0.2 th/mm3 (0.0-0.9); Mono % (Auto) 3.2 % (0.0-8.0); Neut # (Auto) 5.9 th/mm3 (1.8-7.7); Neut % (Auto) 90.6 % (16.0-70.0); Platelet Count 72 th/mm3 (150-450); Red Blood Count 2.28 mil/mm3 (4.50-5.90); Red Cell Distribution Width 20.5 % (11.6-17.2); White Blood Count 6.5 th/mm3 (4.0-11.0)
[2018-03-05] MEDS: Chlorhexidine 0.12% Oral Kit 15 ML UDC OROPHARYNG SCH ×2 (07:53→20:29)
--- NOTE | 2018-03-05 08:14 | P.PNCC ---
Subjective Subjective Remarks/Hospital Course: 62-year-old male with past medical history of [place] mechanical aortic valve (09/21/12 Dr. Gonzalez), on chronic anticoagulation with warfarin, atrial fibrillation postop from AVR , COPD on 2.5 L home O2, stroke in 2015 resulting in left-sided sensory deficits and neuropathy, osteoporosis with chronic low back pain. He was recently admitted to [facility] from 01/23 through 01/31/18 for MSSA bacteremia. It is believed that the original source of infection was a wound on his right index finger when electric drill slipped and created a puncture wound. He was discharged with right upper extremity PICC line receiving cefazolin 2 g IV every 8 hours and gentamicin 210 mg IV daily. He states that home health administered antibiotics at 17:00 and shortly thereafter he began having chills and rigors and sought medical attention at [facility]. He had no rash. Upon arrival, he was hypotensive in the low 80s. He was given 2 L S bolus but remained hypotensive so was started on Levophed. He then developed heart rate in the 140s, reportedly atrial flutter so he was started on Amiodarone drip in [place] and converted to sinus rhythm. He was transfused 2 units PRBC due to Hgb 9.3. His stool was nonbloody nonmelena but was Hemoccult positive. He was given zosyn and vancomycin. Critical care medicine was then contacted and accepted patient for transfer to [facility]. He denies tenderness/redness/drainage at PICC site. Aside from mechanical aortic valve, he has no other hardware or indwelling devices. He denies headache, cough, dysuria. He has had a few loose stools at home, but stools have sometimes been formed. He denies chest pain, does report some SOB. EKG at [place] had marked inferolateral ischemic changes. Obtained EKG upon arrival to [facility] which is improved. SUBJ 02/05: Patient remains critical ill appearing, complaints of chest tightness but denies pain. Remains on 8 mcg/min of Levophed to maintain map about 65. However increasing shortness of breath. Chest x-ray shows increasing pulmonary edema. Troponin was 27.5 currently on IV heparin therapeutic. Cardiology consult is pending at this time. I will stop on maintenance fluids give 40 mg IV Lasix and IV albumin 25 g 1. 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 IABP placed. patient emergently intubated for acute hypoxic respiratory failure secondary to cardiogenic shock and pulmonary edema. started on milrinone at 0.375 mcg/kg/min and levophed. bumex drip started. remains critically ill. 02/07: Remains critically ill remains on Levophed and milrinone. Currently diuresing well with Bumex drip. IABP in place management per cardiology-good waveform and augmentation. Chest x-ray shows adequate positioning of IABP, diffuse bilateral pulmonary edema 02/08: Remains critical but showing some signs of improvement. Diuresing very well on Bumex infusion. Remains on Levophed and milrinone. IABP one-to-one with good augmentation management per cardiology. Chest x-ray shows improving edema but with persistent bilateral effusions. Will initiate weaning trials if tolerated 02/09: Still remains on pressors, unable to wean Levophed below 2 mcg/min. Milrinone currently on 0.375 mcg/kg/min. IABP removed yesterday. On sedation hold patient wakes up but remains lethargic. Weakly squeezes hand. Urine output excellent on Bumex, 4 L output in 24 hours. Will attempt CPAP today 02/10: Multiple episodes of V. fib V. tach arrest yesterday morning. Successfully resuscitated. Yesterday night had two-minute V. fib arrest return of spontaneous circulation in sinus rhythm after DC cardioversion 1. Currently remains on milrinone and low-dose Levophed. I will try to wean off Levophed introduce low-dose beta-rasheed due to recurrent arrhythmia. Keep potassium more than 4 magnesium more than 2 02/11: Patient still critical and cardiogenic shock requiring Levophed and milrinone. Urine output improved with adding Diamox. Approximately 2 L urine output in 24 hours, creatinine remained stable. Oxygenation slightly improved FiO2 reduced to 70% now. Overall prognosis remains poor family wants to continue aggressive care 02/12: Remains critical but slight improvement in oxygenation. But continues to require Levophed and milrinone the low-dose. Urine output remains adequate. Chest x-ray shows interval improvement. Creatinine remains stable to slightly improved. Add IV albumin to improve blood pressure and to promote diuresis. 02/13 Patient remains intubated and sedated with Versed and fentanyl. Afebrile, off Levophed remains on Milrinone and Heparin drip. 02/14: Hypothermic overnight. Remains on milrinone and heparin drips. Tolerating tube feeds at 20 cc now. Positive BM. No changes neurologically 02/15 Patient remains sedated with Versed and Fentanyl drips, on Milrinone 0.5. 02/16 Patient remains intubated sedated with Versed and Fentanyl infusion. On Milrinone and Heparin drips. CT brain yesterday showed no acute findings. Afebrile. 02/17 Patient remains sedated and intubated. Afebrile, On Milrinone and Heparin drip. 02/18: Remains critical continues to require milrinone. Urine output adequate. Chest x-ray shows bilateral infiltrate effusion. CT chest to better define effusions and infiltrate. Increase Bumex to 1 mg every 8 hours. Patient is persistently weak, will attempt SBT unlikely to be successfully extubated at this time. Most likely will need tracheostomy if family desires aggressive care 02/19: Remains intubated sedated with Versed and fentanyl. Transition to Precedex to facilitate weaning trials. Patient responding slightly more to verbal command, appears to track even though not following commands. Creatinine slightly increased with increased diuresis. Chest x-ray shows improved pleural effusions. CT chest yesterday did not show significant effusion but basilar consolidation. 02/20 Patient was extubated yesterday on 10L simple mask, on Precdex, Heparin and Milrinone drips. Tmax 101.1 yesterday 02/21: Febrile. Currently on 5 L nasal cannula. Continues on heparin drip with 500 units an hour. Received bumetanide 1 mg 1 today. Positive BM 02/22: Remains on 5 L nasal cannula. Remains on heparin drip. No changes neurologically remains medically stable. 02/23: Intubated early this morning secondary to acute respiratory failure. Blood pressure marginal likely due to sedation. Ejection fraction less than 20% . Discussed with at bedside. She was to proceed with tracheostomy in PEG tube placement. We will plan for within the next few days. 02/24: Remains sedated, orally intubated on mechanical ventilation. 02/25: Remains sedated, orally intubated on mechanical ventilation. Worsening renal function noted. Check UA, urine sodium and creatinine. Ordered Kayexalate for hyperkalemia and nephrology consulted. 02/26: Sedated, arousable, orally intubated on mechanical ventilation. Will hold Plavix for planned tracheostomy and PEG tube placement. Remains on heparin for anticoagulation. 02/27: Drowsy, arousable, orally intubated on mechanical ventilation. Awaiting tracheostomy and PEG tube placement. 02/28: Drowsy, arousable, remains orally intubated on mechanical ventilation. PEG tube scheduled for today. 03/01: Drowsy, arousable, remains orally intubated on mechanical ventilation. Underwent PEG tube placement on 02/28. Worsening thrombocytopenia noted and now down to 50,000. Will continue holding Plavix and heparin. Check HIT screen and consult hematology. Awaiting tracheostomy 03/02: Drowsy, arousable, remains orally intubated on mechanical vent relation. Hematology consult noted. 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 03/03: Intubated remains heavily sedated. Was unable to wean off the ventilator , became hypoxemic on CPAP yesterday. 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 Will transfuse 3 packed units of platelets prior to tracheostomy planned for 11 AM today. Platelet count 49,000 03/04 Trached yesterday. Had high residuals earlier today (500 mL) and tube feeds placed on hold. KUB unremarkable. Given reglan, now residual is 10 so resuming tube feeds. On CPAP via trach. Remains sedated on fentanyl and versed, will wean. Subjective: 03/05 Bleeding at trach site overnight, argatroban was placed on hold. Hgb stable 7.4, platelet count 70k. Surgicell has been ordered but has not yet been applied. Off versed, fentanyl drip still running 50 mcg. He is more alert today , communicates his need to have his mouth suctioned. Objective Vital Signs / I&O: Vital Signs 03/04/18 08:15 03/04/18 08:30 03/04/18 08:45 Temperature Pulse Rate 89 80 73 Respiratory Rate 20 12 21 Blood Pressure 122/78 117/71 109/66 Pulse Oximetry 100 100 100 03/04/18 08:46 03/04/18 09:00 03/04/18 09:15 Temperature Pulse Rate 73 68 Respiratory Rate 18 17 17 Blood Pressure 96/59 L 94/60 L Pulse Oximetry 100 100 03/04/18 09:30 03/04/18 09:45 03/04/18 10:00 Temperature Pulse Rate 69 67 68 Respiratory Rate 18 17 17 Blood Pressure 92/62 L 103/64 95/61 L Pulse Oximetry 83 L 100 100 03/04/18 10:15 03/04/18 10:30 03/04/18 10:45 Temperature Pulse Rate 66 68 69 Respiratory Rate 16 15 17 Blood Pressure 99/61 L 104/66 103/63 Pulse Oximetry 100 100 100 03/04/18 11:00 03/04/18 11:15 03/04/18 11:30 Temperature Pulse Rate 76 69 71 Respiratory Rate 19 16 18 Blood Pressure 97/60 L 91/57 L 104/61 Pulse Oximetry 100 97 99 03/04/18 11:45 03/04/18 12:00 03/04/18 12:02 Temperature 98.2 F Pulse Rate 75 80 Respiratory Rate 17 15 15 Blood Pressure 109/66 111/69 Pulse Oximetry 100 100 100 03/04/18 12:15 03/04/18 12:30 03/04/18 12:45 Temperature Pulse Rate 68 69 70 Respiratory Rate 16 16 16 Blood Pressure 96/59 L 88/52 L 86/53 L Pulse Oximetry 99 94 L 93 L 03/04/18 13:00 03/04/18 13:15 03/04/18 13:30 Temperature Pulse Rate 70 71 74 Respiratory Rate 16 16 19 Blood Pressure 87/54 L 91/57 L 106/66 Pulse Oximetry 93 L 93 L 98 03/04/18 13:45 03/04/18 14:00 03/04/18 14:15 Temperature Pulse Rate 70 71 71 Respiratory Rate 17 17 17 Blood Pressure 99/60 L 88/55 L 101/63 Pulse Oximetry 95 93 L 98 03/04/18 14:30 03/04/18 14:45 03/04/18 14:52 Temperature Pulse Rate 70 66 Respiratory Rate 18 18 17 Blood Pressure 104/65 94/59 L Pulse Oximetry 98 98 03/04/18 15:00 03/04/18 15:15 03/04/18 15:30 Temperature Pulse Rate 67 79 70 Respiratory Rate 18 18 18 Blood Pressure 88/55 L 85/54 L 101/62 Pulse Oximetry 95 97 100 03/04/18 15:45 03/04/18 16:00 03/04/18 16:15 Temperature 98.0 F Pulse Rate 71 69 79 Respiratory Rate 19 15 13 Blood Pressure 103/64 105/66 106/68 Pulse Oximetry 99 100 100 03/04/18 16:30 03/04/18 18:00 03/04/18 20:00 Temperature 98.9 F Pulse Rate 68 66 78 Respiratory Rate 14 13 Blood Pressure 106/69 112/67 Pulse Oximetry 100 100 03/04/18 20:46 03/04/18 22:00 03/05/18 00:00 Temperature 98.4 F Pulse Rate 72 91 H Respiratory Rate 14 17 Blood Pressure 111/72 Pulse Oximetry 100 97 03/05/18 00:47 03/05/18 02:00 03/05/18 03:54 Temperature Pulse Rate 75 Respiratory Rate 14 16 Blood Pressure Pulse Oximetry 100 100 03/05/18 04:00 03/05/18 04:01 03/05/18 06:00 Temperature 98.1 F Pulse Rate 94 H 93 H 92 H Respiratory Rate 21 12 Blood Pressure 114/73 Pulse Oximetry 100 Intake & Output 03/04/18 03/05/18 03/05/18 18:59 06:59 18:59 Intake Total 1347 / 1347 978 / 978 Output Total 1001 / 1001 1850 / 1850 Balance 346 / 346 -872 / -872 Weight 65 kg Intake: IV 930 / 930 300 / 300 Versed Inj 50 mg In 50 ml @ 2 60 / 60 MG/HR 2 mls/hr IV.CONT TITRATE PRN Rx#:[id number] Azactam Inj 1,000 MG In NS Inj 200 / 200 200 / 200 100 ML @ 200 mls/hr IV.SIG Q6H ADRIEN Rx#:[id number] Diflucan 200 mg Premix Bag 100 100 / 100 ML @ 100 mls/hr IV.SIG Q24H ADRIEN Rx#:[id number] Venofer Inj 200 MG In NS Inj 220 / 220 100 ML @ 110 mls/hr IV.SIG Q24H ADRIEN Rx#:[id number] Ancef Inj 1,000 MG In NS Inj 100 / 100 100 / 100 100 ML @ 200 mls/hr IV.SIG Q12H ADRIEN Rx#:[id number] fentaNYL 10 mcg/mL Premix Drip 250 / 250 2,500 mcg In 250 ml @ 50 MCG/HR 5 mls/hr IV.SIG TITRATE PRN Rx #:[id number] Oral 0 / 0 Tube Feeding 117 / 117 278 / 278 Water Bolus Amount 300 / 300 400 / 400 Output: Urine 1350 / 1350 Stool 1 / 1 500 / 500 Urine Amount (Catheter) 1000 / 1000 Indwelling Urethral Catheter 1000 / 1000 Other: Date of Last Bowel Movement 03/04/18 03/03/18 Result Diagrams: 03/05/18 05:12 03/05/18 05:12 Objective Remarks: GENERAL: 62-year-old male lying in bed, trached. Appears frail, undernourished. SKIN: cool HEAD: Atraumatic. Normocephalic. EYES: Pupils equal and round, 2 mm and reactive. ENT: No nasal bleeding or discharge. Orotracheally intubated. NECK: Tracheostomy in place, Surgicell applied, now blood clotted at trach site and no active bleeding. . Supple, no JVD, no adenopathy/thyromegaly. CARDIOVASCULAR: RRR. S1, S2. No S4. No murmurs rubs or gallops. RESPIRATORY: Orally intubated on mechanical ventilation, b/L equal air entry. GASTROINTESTINAL: Abdomen soft, non-tender, nondistended. no guarding. PEG in place MUSCULOSKELETAL: Extremities with trace bilateral lower extremity edema NEURO: Trached, eyes open, communicates needs to be suctioned, moves all extremities to command. Assessment and Plan - Assessment and Plan Plan: NEURO/PSYCH: History of stroke in 2015 Neuropathy left upper and lower extremity Chronic low back pain Acetaminophen 650 every 6 hours as needed fever. 02/15 CT brain: No acute findings. 02/15 EEG : Encephalopathy, no epileptiform activity MRI brain 02/16: New small focal acute infarction right cerebral vertex and also left cerebral vertex. Neuro has followed. Continue ASA 81 mg daily. Continue pregabalin 150 mg p.o. twice daily. Holding duloxetine 90 mg p.o. daily. Discontinued fentanyl/versed. Lortab prn pain. RESP: Acute hypoxic respiratory failure COPD on 2.5 L home O2 currently on 5 L Prior tobacco abuse Bilateral pleural effusions Perc trach 03/03. Continue daily CPAP Trials and transition to tpiece as as tolerated. Albuterol/ipratropium aerosols every 4 hours with albuterol aerosols every 2 hours as needed for dyspnea methylprednisolone succinate 40mg IV daily CV: V. tach/V. fib arrest resolved NSTEMI Cardiogenic shock resolved Acute systolic heart failure Atrial fibrillation with RVR [place] mechanical aortic valve (09/21/12 Dr. Gonzalez) s/p Tricuspid annuloplasty s/p cath And PCI -proximal LAD and large diagonal 90% stenosis, 2 BMS stent 02/05, mid LAD vasospasm post PCI Continue aspirin 81 mg daily, Hold clopidogrel starting 02/26 for trach/ PEG and will resume when plt >80 per hematology. amiodarone 400mg TID, carvedilol 3.125mg BID Spironolactone stopped in v/o hyperkalemia on 02/25 Continue atorvastatin 40 mg nightly. Off IABP 02/08/18 [place] 01/23/18no vegetation. Normal aortic mechanical valve with trivial aortic insufficiency. Tricuspid annuloplasty. Mild to moderate LV generalized hypokinesis Echo from 02/05: EF <20%, diffuse hypokinesis, bioprosthetic valve [employer] is Romana Bartlett GI: Moderate protein calorie malnutrition with hypoalbuminemia Jevity 1.5 now at goal 50 ml/hr. Reglan 5 mg IV q8 hours. KUB unremarkable. Status post PEG tube placement Lansoprazole for stress ulcer prophylactic Had normal EGD on 10/21/17 FEN/RENAL: Acute kidney injury Hypopotassemia Hypernatremia BPH Monitor renal function, I/O's, creatinine slowly improving. On IVF and off diuretics per nephrology. Renal ultrasound to evaluate for evidence of obstruction -did not show any obstruction Discontinued bumetanide 1mg IV daily , spironolactone 25 mg twice daily stopped on 02/25 due to hyperkalemia and worsening renal function.. 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 difficile colitis PICC removed Discontinued IV vancomycin and gentamicin 02/20. Cefepime IV discontinued on and patient started on aztreonam and Ancef IV. C.diff tx: po vanco 02/11/18. 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 Received 2 units packed red cells in [place] ER due to anemia and shock. Monitor CBC. Continue holding Plavix and heparin. Hematology consulted for worsening thrombocytopenia. 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 Bleeding from trach resolved with surgicell. Resume argatroban 03/05. RITA pending. 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 Now on argatroban. Protonix for stress ulcer prophylaxis ACCESS: Left IJ central line placed 02/05/18. Now removed and PIV in place. Palliative care is following Level 3 followup
[2018-03-05] MEDS: Ferrrous Sulfate 300 MG/5 ML UDC PO SCH (08:51)
[2018-03-05] MEDS: Ascorbic Acid 500 MG Tablet NG/OG SCH (08:51)
[2018-03-05] MEDS: Pregabalin 75 MG Capsule PO SCH ×2 (08:51→20:28)
[2018-03-05] MEDS: Amiodarone 200 MG Tablet G-TUBE SCH ×2 (08:52→20:28)
[2018-03-05] MEDS: MethylPREDNISolone Sod Succinate Inj 40 MG/ML Vial IV.PUSH SCH (08:52)
[2018-03-05] MEDS: Senna/Docusate Sodium 8.6/50 MG Tablet PO SCH ×2 (08:52→20:28)
[2018-03-05] MEDS: Beneprotein Powder Packet G-TUBE SCH ×3 (08:53→17:14)
[2018-03-05] MEDS: Hypromellose 0.3% Opth Gel 10 GM Bottle EACH EYE SCH ×2 (08:53→20:29)
--- NOTE | 2018-03-05 11:41 | P.PNNP ---
Subjective Interval history: intubated with trach Physical Exam Vital signs: Vital Signs 03/04/18 11:45 03/04/18 12:00 03/04/18 12:02 Temperature 98.2 F Pulse Rate 75 80 Respiratory Rate 17 15 15 Blood Pressure 109/66 111/69 Pulse Oximetry 100 100 100 03/04/18 12:15 03/04/18 12:30 03/04/18 12:45 Temperature Pulse Rate 68 69 70 Respiratory Rate 16 16 16 Blood Pressure 96/59 L 88/52 L 86/53 L Pulse Oximetry 99 94 L 93 L 03/04/18 13:00 03/04/18 13:15 03/04/18 13:30 Temperature Pulse Rate 70 71 74 Respiratory Rate 16 16 19 Blood Pressure 87/54 L 91/57 L 106/66 Pulse Oximetry 93 L 93 L 98 03/04/18 13:45 03/04/18 14:00 03/04/18 14:15 Temperature Pulse Rate 70 71 71 Respiratory Rate 17 17 17 Blood Pressure 99/60 L 88/55 L 101/63 Pulse Oximetry 95 93 L 98 03/04/18 14:30 03/04/18 14:45 03/04/18 14:52 Temperature Pulse Rate 70 66 Respiratory Rate 18 18 17 Blood Pressure 104/65 94/59 L Pulse Oximetry 98 98 03/04/18 15:00 03/04/18 15:15 03/04/18 15:30 Temperature Pulse Rate 67 79 70 Respiratory Rate 18 18 18 Blood Pressure 88/55 L 85/54 L 101/62 Pulse Oximetry 95 97 100 03/04/18 15:45 03/04/18 16:00 03/04/18 16:15 Temperature 98.0 F Pulse Rate 71 69 79 Respiratory Rate 19 15 13 Blood Pressure 103/64 105/66 106/68 Pulse Oximetry 99 100 100 03/04/18 16:30 03/04/18 18:00 03/04/18 20:00 Temperature 98.9 F Pulse Rate 68 66 78 Respiratory Rate 14 13 Blood Pressure 106/69 112/67 Pulse Oximetry 100 100 03/04/18 20:46 03/04/18 22:00 03/05/18 00:00 Temperature 98.4 F Pulse Rate 72 91 H Respiratory Rate 14 17 Blood Pressure 111/72 Pulse Oximetry 100 97 03/05/18 00:47 03/05/18 02:00 03/05/18 02:30 Temperature Pulse Rate 75 75 Respiratory Rate 14 13 Blood Pressure Pulse Oximetry 100 100 03/05/18 02:45 03/05/18 03:00 03/05/18 03:15 Temperature Pulse Rate 81 94 H 82 Respiratory Rate 15 12 14 Blood Pressure 108/68 117/72 115/74 Pulse Oximetry 100 100 100 03/05/18 03:30 03/05/18 03:45 03/05/18 03:54 Temperature Pulse Rate 90 85 Respiratory Rate 22 14 16 Blood Pressure 117/75 115/76 Pulse Oximetry 100 100 100 03/05/18 04:00 03/05/18 04:01 03/05/18 04:15 Temperature 98.1 F Pulse Rate 94 H 93 H 87 Respiratory Rate 21 12 13 Blood Pressure 114/73 118/73 Pulse Oximetry 100 100 03/05/18 04:30 03/05/18 04:45 03/05/18 05:00 Temperature Pulse Rate 87 86 89 Respiratory Rate 18 15 13 Blood Pressure 117/75 115/75 119/71 Pulse Oximetry 100 100 100 03/05/18 05:15 03/05/18 05:30 03/05/18 05:45 Temperature Pulse Rate 86 87 90 Respiratory Rate 13 21 15 Blood Pressure 116/72 117/65 115/70 Pulse Oximetry 100 100 100 03/05/18 06:00 03/05/18 06:15 03/05/18 06:30 Temperature Pulse Rate 0 L 97 H 90 Respiratory Rate 16 16 Blood Pressure 116/66 113/68 Pulse Oximetry 96 99 99 03/05/18 06:45 03/05/18 07:00 03/05/18 07:15 Temperature Pulse Rate 87 88 91 H Respiratory Rate 13 15 12 Blood Pressure 111/67 111/67 114/65 Pulse Oximetry 100 100 100 03/05/18 07:30 03/05/18 07:45 03/05/18 08:00 Temperature 98.2 F Pulse Rate 90 87 87 Respiratory Rate 13 12 15 Blood Pressure 111/63 109/65 111/67 Pulse Oximetry 100 100 100 03/05/18 08:15 03/05/18 08:30 03/05/18 08:45 Temperature Pulse Rate 89 87 89 Respiratory Rate 14 14 13 Blood Pressure 112/66 112/66 110/63 Pulse Oximetry 100 100 100 03/05/18 10:00 Temperature Pulse Rate 84 Respiratory Rate Blood Pressure Pulse Oximetry Intake & Output 03/04/18 03/05/18 03/05/18 18:59 06:59 18:59 Intake Total 1347 / 1347 978 / 978 200 / 200 Output Total 1001 / 1001 1850 / 1850 Balance 346 / 346 -872 / -872 200 / 200 Weight 65 kg Intake: IV 930 / 930 300 / 300 200 / 200 Versed Inj 50 mg In 50 ml @ 2 60 / 60 MG/HR 2 mls/hr IV.CONT TITRATE PRN Rx#:[id number] Azactam Inj 1,000 MG In NS Inj 200 / 200 200 / 200 100 / 100 100 ML @ 200 mls/hr IV.SIG Q6H ADRIEN Rx#:[id number] Diflucan 200 mg Premix Bag 100 100 / 100 ML @ 100 mls/hr IV.SIG Q24H ADRIEN Rx#:[id number] Venofer Inj 200 MG In NS Inj 220 / 220 100 ML @ 110 mls/hr IV.SIG Q24H ADRIEN Rx#:[id number] Ancef Inj 1,000 MG In NS Inj 100 / 100 100 / 100 100 / 100 100 ML @ 200 mls/hr IV.SIG Q12H ADRIEN Rx#:[id number] fentaNYL 10 mcg/mL Premix Drip 250 / 250 2,500 mcg In 250 ml @ 50 MCG/HR 5 mls/hr IV.SIG TITRATE PRN Rx #:[id number] Oral 0 / 0 Tube Feeding 117 / 117 278 / 278 Water Bolus Amount 300 / 300 400 / 400 Output: Urine 1350 / 1350 Stool 1 / 1 500 / 500 Urine Amount (Catheter) 1000 / 1000 Indwelling Urethral Catheter 1000 / 1000 Other: Date of Last Bowel Movement 03/04/18 03/03/18 03/05/18 - Constitutional no acute distress - Routine HEENT Exam Head: Present: normocephalic Comments: trach - Routine Neck Exam Present: supple - Routine Respiratory Exam Present: patient mechanically ventilated - Routine Cardiovascular Exam Present: RRR - Routine Abdominal Exam Present: soft - Routine Extremities Exam Comments: no edema - Routine Skin Exam Present: intact - Routine Psychiatric Exam Present: unable to assess - Urinary Catheter Management Condom Cath placed during this visit: yes Urethral indwelling: Yes Reason for continuing: Acute urinary retention Insertion date: 02/24/18 Indwelling Urethral Catheter Cath placed during this visit: yes Reason for continuing: Acute urinary retention Insertion date: 02/24/18 Indwelling Temp Sensing Catheter Cath placed during this visit: yes, but has since been removed by the nurse Reason for continuing: Acute urinary retention Insertion date: 02/12/18 Insertion time: 20:15 Removal date: 02/20/18 Removal time: 16:00 Assessment and Plan - Assessment (1) Acute kidney injury Code(s): N17.9 - Acute kidney failure, unspecified Status: Acute Plan: Baseline 0.9-1.2. SHARON was due to overdiuresis and dehydration, possibly infection. Renal function is improved Creatinine 2.1 -> 1.7 -> 1.6 now. Na 137, Mild acidosis with HCO3 18: Will change IVFs from 1/2 NS to 1/2 NS + 75meq NaHCO3 @75cc/hour (changed from hypotonic IVFs to isotonic IVFs with addition of NaHCO3) monitor for now. Repeat labs daily. He is non oliguric, monitor urine output. 1.3L UOP/24 hours Avoid nephrotoxic agents. His prognosis is very poor. He is severely malnourished and at risk for complications. Monitor urine output and renal function. (2) Hyperosmolality and hypernatremia Code(s): E87.0 - Hyperosmolality and hypernatremia Status: Acute Plan: Improved. Na 137 now IVFs adjusted to NS on 300 ml Q6H free water with tube feeding Follow labs - may stop free water tomorrow if Na stable. (3) Hyperkalemia Code(s): E87.5 - Hyperkalemia Status: Acute Plan: Improved. now with K 3.2. Will given 20meq KCl IV, follow labs (4) Sepsis Code(s): A41.9 - Sepsis, unspecified organism Status: Acute Plan: He is on IV Aztreonam, cefazolin, and fluconazole. Blood cultures negative Urine cultures positive. Continue supportive care. 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 (7) Anemia Code(s): D64.9 - Anemia, unspecified Status: Acute Plan: On Venofer Transfuse if needed Monitor CBC
--- NOTE | 2018-03-05 13:14 | P.PNONC ---
Subjective Interval history: Patient alert, remains intubated with tracheostomy. Patient mouthing one-word and shaking his head to answer my questions. Objective Vital Signs/Intake & Output: Vital Signs 03/04/18 13:15 03/04/18 13:30 03/04/18 13:45 Temperature Pulse Rate 71 74 70 Respiratory Rate 16 19 17 Blood Pressure 91/57 L 106/66 99/60 L Pulse Oximetry 93 L 98 95 03/04/18 14:00 03/04/18 14:15 03/04/18 14:30 Temperature Pulse Rate 71 71 70 Respiratory Rate 17 17 18 Blood Pressure 88/55 L 101/63 104/65 Pulse Oximetry 93 L 98 98 03/04/18 14:45 03/04/18 14:52 03/04/18 15:00 Temperature Pulse Rate 66 67 Respiratory Rate 18 17 18 Blood Pressure 94/59 L 88/55 L Pulse Oximetry 98 95 03/04/18 15:15 03/04/18 15:30 03/04/18 15:45 Temperature Pulse Rate 79 70 71 Respiratory Rate 18 18 19 Blood Pressure 85/54 L 101/62 103/64 Pulse Oximetry 97 100 99 03/04/18 16:00 03/04/18 16:15 03/04/18 16:30 Temperature 98.0 F Pulse Rate 69 79 68 Respiratory Rate 15 13 14 Blood Pressure 105/66 106/68 106/69 Pulse Oximetry 100 100 100 03/04/18 18:00 03/04/18 20:00 03/04/18 20:46 Temperature 98.9 F Pulse Rate 66 78 Respiratory Rate 13 14 Blood Pressure 112/67 Pulse Oximetry 100 100 03/04/18 22:00 03/05/18 00:00 03/05/18 00:47 Temperature 98.4 F Pulse Rate 72 91 H Respiratory Rate 17 14 Blood Pressure 111/72 Pulse Oximetry 97 100 03/05/18 02:00 03/05/18 02:30 03/05/18 02:45 Temperature Pulse Rate 75 75 81 Respiratory Rate 13 15 Blood Pressure 108/68 Pulse Oximetry 100 100 03/05/18 03:00 03/05/18 03:15 03/05/18 03:30 Temperature Pulse Rate 94 H 82 90 Respiratory Rate 12 14 22 Blood Pressure 117/72 115/74 117/75 Pulse Oximetry 100 100 100 03/05/18 03:45 03/05/18 03:54 03/05/18 04:00 Temperature 98.1 F Pulse Rate 85 94 H Respiratory Rate 14 16 21 Blood Pressure 115/76 114/73 Pulse Oximetry 100 100 100 03/05/18 04:01 03/05/18 04:15 03/05/18 04:30 Temperature Pulse Rate 93 H 87 87 Respiratory Rate 12 13 18 Blood Pressure 118/73 117/75 Pulse Oximetry 100 100 03/05/18 04:45 03/05/18 05:00 03/05/18 05:15 Temperature Pulse Rate 86 89 86 Respiratory Rate 15 13 13 Blood Pressure 115/75 119/71 116/72 Pulse Oximetry 100 100 100 03/05/18 05:30 03/05/18 05:45 03/05/18 06:00 Temperature Pulse Rate 87 90 0 L Respiratory Rate 21 15 Blood Pressure 117/65 115/70 Pulse Oximetry 100 100 96 03/05/18 06:15 03/05/18 06:30 03/05/18 06:45 Temperature Pulse Rate 97 H 90 87 Respiratory Rate 16 16 13 Blood Pressure 116/66 113/68 111/67 Pulse Oximetry 99 99 100 03/05/18 07:00 03/05/18 07:15 03/05/18 07:30 Temperature Pulse Rate 88 91 H 90 Respiratory Rate 15 12 13 Blood Pressure 111/67 114/65 111/63 Pulse Oximetry 100 100 100 03/05/18 07:45 03/05/18 08:00 03/05/18 08:15 Temperature 98.2 F Pulse Rate 87 87 89 Respiratory Rate 12 15 14 Blood Pressure 109/65 111/67 112/66 Pulse Oximetry 100 100 100 03/05/18 08:30 03/05/18 08:45 03/05/18 09:00 Temperature Pulse Rate 87 89 85 Respiratory Rate 14 13 12 Blood Pressure 112/66 110/63 107/65 Pulse Oximetry 100 100 100 03/05/18 09:15 03/05/18 09:30 03/05/18 09:45 Temperature Pulse Rate 89 84 86 Respiratory Rate 13 17 12 Blood Pressure 105/63 106/64 104/61 Pulse Oximetry 100 100 100 03/05/18 10:00 03/05/18 10:15 03/05/18 10:30 Temperature Pulse Rate 85 83 81 Respiratory Rate 16 15 16 Blood Pressure 109/63 107/62 100/60 Pulse Oximetry 100 100 100 03/05/18 10:45 03/05/18 11:00 03/05/18 11:15 Temperature Pulse Rate 86 83 84 Respiratory Rate 15 15 15 Blood Pressure 105/61 107/65 108/62 Pulse Oximetry 100 100 100 03/05/18 11:30 03/05/18 11:45 03/05/18 11:52 Temperature Pulse Rate 88 84 Respiratory Rate 14 15 13 Blood Pressure 103/60 102/61 Pulse Oximetry 100 100 03/05/18 12:00 03/05/18 12:15 03/05/18 12:30 Temperature 98.2 F Pulse Rate 85 89 91 H Respiratory Rate 14 13 14 Blood Pressure 101/60 106/64 108/65 Pulse Oximetry 100 100 100 03/05/18 12:45 Temperature Pulse Rate 87 Respiratory Rate 13 Blood Pressure 108/65 Pulse Oximetry 100 Intake & Output 03/04/18 03/05/18 03/05/18 18:59 06:59 18:59 Intake Total 1347 / 1347 978 / 978 200 / 200 Output Total 1001 / 1001 1850 / 1850 Balance 346 / 346 -872 / -872 200 / 200 Weight 65 kg Intake: IV 930 / 930 300 / 300 200 / 200 Versed Inj 50 mg In 50 ml @ 2 60 / 60 MG/HR 2 mls/hr IV.CONT TITRATE PRN Rx#:[id number] Azactam Inj 1,000 MG In NS Inj 200 / 200 200 / 200 100 / 100 100 ML @ 200 mls/hr IV.SIG Q6H [facility] Rx#:[id number] Diflucan 200 mg Premix Bag 100 100 / 100 ML @ 100 mls/hr IV.SIG Q24H [facility] Rx#:[id number] Venofer Inj 200 MG In NS Inj 220 / 220 100 ML @ 110 mls/hr IV.SIG Q24H [facility] Rx#:[id number] Ancef Inj 1,000 MG In NS Inj 100 / 100 100 / 100 100 / 100 100 ML @ 200 mls/hr IV.SIG Q12H [facility] Rx#:[id number] fentaNYL 10 mcg/mL Premix Drip 250 / 250 2,500 mcg In 250 ml @ 50 MCG/HR 5 mls/hr IV.SIG TITRATE PRN Rx #:[id number] Oral 0 / 0 Tube Feeding 117 / 117 278 / 278 Water Bolus Amount 300 / 300 400 / 400 Output: Urine 1350 / 1350 Stool 1 / 1 500 / 500 Urine Amount (Catheter) 1000 / 1000 Indwelling Urethral Catheter 1000 / 1000 Other: Date of Last Bowel Movement 03/04/18 03/03/18 03/05/18 Result Diagrams: 03/05/18 05:12 03/05/18 05:12 Laboratory Results: Laboratory Results - last 24 hr 03/04/18 03/05/18 03/05/18 17:24 00:00 01:00 WBC 6.7 RBC 2.24 L Hgb 7.1 L Hct 21.5 L MCV 95.7 MCH 31.5 MCHC 32.9 RDW 19.9 H Plt Count 73 L MPV 9.7 Prelim Diff (Auto) Slide review pending Neut % (Auto) 92.2 H Lymph % (Auto) 4.6 L [place] % (Auto) 3.0 Eos % (Auto) 0.0 Baso % (Auto) 0.2 Neut # (Auto) 6.1 Lymph # (Auto) 0.3 L [place] # (Auto) 0.2 Eos # (Auto) 0.0 Baso # (Auto) 0.0 WBC Differential . Diff Scan Auto diff confirmed Differential Comment . Platelet Estimate Low L Platelet Morphology Normal Ovalocytes 1+ H APTT Creatinine Estimated GFR POC Glucose 126 H 113 H 03/05/18 03/05/18 03/05/18 05:12 05:12 05:12 WBC 6.5 RBC 2.28 L Hgb 7.4 L Hct 21.9 L MCV 96.1 MCH 32.6 MCHC 33.9 RDW 20.5 H Plt Count 72 L MPV 10.4 Prelim Diff (Auto) Slide review pending Neut % (Auto) 90.6 H Lymph % (Auto) 6.1 L [place] % (Auto) 3.2 Eos % (Auto) 0.0 Baso % (Auto) 0.1 Neut # (Auto) 5.9 Lymph # (Auto) 0.4 L [place] # (Auto) 0.2 Eos # (Auto) 0.0 Baso # (Auto) 0.0 WBC Differential . Diff Scan Auto diff confirmed Differential Comment . Platelet Estimate Low L Platelet Morphology Enlarged H Ovalocytes APTT 44.4 H D Creatinine 1.66 H Estimated GFR 42 L POC Glucose 03/05/18 03/05/18 05:29 12:03 WBC RBC Hgb Hct MCV MCH MCHC RDW Plt Count MPV Prelim Diff (Auto) Neut % (Auto) Lymph % (Auto) [place] % (Auto) Eos % (Auto) Baso % (Auto) Neut # (Auto) Lymph # (Auto) [place] # (Auto) Eos # (Auto) Baso # (Auto) WBC Differential Diff Scan Differential Comment Platelet Estimate Platelet Morphology Ovalocytes APTT Creatinine Estimated GFR POC Glucose 90 181 H Culture Results: Microbiology 02/27/18 02:28 Aerobic Blood Culture - Final Blood - Peripheral No growth in 5 days Anaerobic Blood Culture - Final No growth in 5 days 02/27/18 02:20 Aerobic Blood Culture - Final Blood - Peripheral No growth in 5 days Anaerobic Blood Culture - Final No growth in 5 days Medications: Active Medications Generic Name Dose Route Start Last Admin Trade Name Freq PRN Reason Stop Dose Admin Acetaminophen 650 mg 02/14/18 09:23 02/19/18 15:18 Tylenol Liq PO 650 mg Q6H PRN Administration FEVER Albuterol 2.5 mg 02/05/18 00:00 03/05/18 04:01 Albuterol Neb (Prn) NEB 2.5 mg Q2HR NEB PRN Administration SHORTNESS OF BREATH/WHEEZING Amiodarone HCl 400 mg 02/11/18 12:00 03/05/18 08:52 Cordarone G-TUBE 400 mg BID [facility] Administration Artificial Tears 1 drops 02/14/18 21:00 03/05/18 08:53 Genteal Severe Dry Eye Relief 0.3% Opth Gel EACH EYE 1 drops BID [facility] Administration Ascorbic Acid 500 mg 02/15/18 09:00 03/05/18 08:51 Vitamin C NG/OG [address] [facility] Administration Aspirin 81 mg 02/06/18 09:00 03/05/18 08:53 Aspirin Chew PO Not Given DAILY [facility] Atorvastatin Calcium 40 mg 02/05/18 21:00 03/04/18 21:09 Lipitor PO 40 mg HS [facility] Administration Chlorhexidine Gluconate 15 ml 02/06/18 08:00 03/05/18 07:53 Peridex 0.12% Oral Kit OROPHARYNG 15 ml BID@0800,1999 [facility] Administration Clopidogrel Bisulfate 75 mg 02/06/18 09:00 08/11/18 09:13 Plavix PO 75 mg DAILY [facility] Administration Dextrose 50 ml 02/13/18 09:27 03/01/18 06:02 D50w Vial IV.PUSH 50 ml UNSCH PRN Administration PER HYPOGLYCEMIA PROTOCOL Digoxin 250 mcg 02/07/18 09:00 02/11/18 15:41 Lanoxin Inj IV.PUSH Not Given DAILY [facility] Duloxetine HCl 90 mg 02/05/18 09:00 02/11/18 11:18 Cymbalta PO Not Given DAILY [facility] Ferrous Sulfate 300 mg 02/15/18 09:00 03/05/18 08:51 Ferrrous Sulfate Liq PO 300 mg DAILY [facility] Administration Fluconazole 100 mls @ 100 mls/hr 02/27/18 00:00 03/05/18 00:01 Diflucan 200 Mg Premix Bag IV.SIG 100 mls/hr Q24H [facility] Administration Aztreonam 1,000 mg/ Sodium 100 mls @ 200 mls/hr 02/28/18 20:00 03/05/18 09:51 Chloride IV.SIG Infused Q6H [facility] Infusion Cefazolin Sodium 1,000 mg/ 100 mls @ 200 mls/hr 02/28/18 19:00 03/05/18 10:22 Sodium Chloride IV.SIG Infused Q12H [facility] Infusion Argatroban 250 mg/ Sodium 250 mls @ 7.56 mls/hr 03/02/18 15:00 03/04/18 06:00 Chloride IV.CONT 2 mcg/kg/min TITRATE PRN 7.56 mls/hr Per Protocol Titration Protocol 2 MCG/KG/MIN Iron Sucrose 200 mg/ Sodium 110 mls @ 110 mls/hr 03/02/18 16:00 03/04/18 18: 29 Chloride IV.SIG Infused Q24H [facility] Infusion Insulin Aspart 0 unit 02/13/18 12:00 03/05/18 05:30 Novolog Insulin Correctional Sugar Inj SQ Not Given Q6HR [facility] Protocol Lactulose 30 ml 02/05/18 00:00 02/05/18 08:38 Lactulose Liq PO 30 ml DAILY PRN Administration SEVERE [employer]IP[employer] Lansoprazole 30 mg 02/15/18 09:00 03/05/18 08:52 Prevacid Solutab NG/OG 30 mg DAILY [facility] Administration Methylprednisolone Sodium Succinate 40 mg 02/20/18 09:00 03/05/18 08:52 Solumedrol Inj IV.PUSH 40 mg DAILY [facility] Administration Metoclopramide HCl 5 mg 03/04/18 10:00 03/05/18 05:30 Reglan Inj IV.PUSH 5 mg Q8HR [facility]EN Administration Protocol Multivitamins 1 tab 02/05/18 09:00 03/05/18 08:52 Theragran PO 1 tab DAILY [facility] Administration Potassium Chloride 20 meq 02/14/18 09:00 02/25/18 20:39 Kcl G-TUBE Not Given BID [facility] Pregabalin 150 mg 02/04/18 23:50 03/05/18 08:51 Lyrica PO 150 mg BID [facility] Administration Senna/Docusate Sodium 1 tab 02/05/18 09:00 03/05/18 08:52 Linda-Colace PO 1 tab BID [facility] Administration Sodium Chloride 2 ml 02/05/18 09:00 03/05/18 08:52 Ns Flush IV.FLUSH 2 ml BID ADRIEN Administration Sterile Water 300 ml 03/02/18 18:00 03/05/18 05:30 Free Water G-TUBE 300 ml Q6HR [facility] Administration Vancomycin HCl 500 mg 02/11/18 16:00 03/05/18 05:31 Vancomycin Po G-TUBE 500 mg Q6HR [facility] Administration Whey 1 packet 02/08/18 13:00 03/05/18 08:53 Beneprotein Powder G-TUBE 1 packet TID AD[facility]EN Administration Objective Remarks: GENERAL: Ill-appearing male patient, intubated, in no acute distress. SKIN: Pale, warm and dry. HEAD: Normocephalic. EYES: No scleral icterus. No injection or drainage. NECK: Supple, trachea midline. + Tracheostomy attached to ventilator. Dried blood around tracheostomy site. CARDIOVASCULAR: Regular rate and rhythm without murmurs. RESPIRATORY: Anterior breath sounds with scattered rhonchi, equal bilaterally. No accessory muscle use.+ Vent. GASTROINTESTINAL: Abdomen soft, non-tender, nondistended. EXTREMITIES: No cyanosis, or edema. SCD and braces to BLE. MUSCULOSKELETAL: Decreased muscle tone. Moves right hand and right leg. NEUROLOGICAL: Nodded head in response to questions, mouthed pillow. Moved right hand and left foot. No movement with RAMONA and LL extremities. Assessment/Plan - Plan 62-year-old male admitted to the hospital in late January for fever and hypotension. He was found to have septic shock. He has C. difficile colitis. Hematology consulted for thrombocytopenia. 1. Continue argatroban drip. Monitor for bleeding. Continue to monitor CBC, APTT and LFTs. 2. Monitor for bleeding. H&H stable. 3. Thrombocytopenia, platelets have increased. Patient status post 3 units platelets on 03/03/2018 for trach placement. 4. Continue supportive care. - Attending Statement The exam, history, and the medical decision-making described in the above note were completed with the assistance of the mid-level provider. I reviewed and agree with the findings presented. I attest that I had a [id number] encounter with the patient on the same day, and personally performed and documented my assessment and findings in the medical record. 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 Argatroban held due to trach. Restarted on 03/04/2018. concern for oozing blood around trach. Repeat hemoglobin is stable. Will restart agatroban and monitor closely for bleeding. Case discussed with Dr. Aldridge. Follow up RITA.
[2018-03-05] MEDS: Potassium Chlor 20 mEq Premix 20 MEQ/100 ML PIGGYBACK IV.SIG SCH ×2 (13:22→16:36)
[2018-03-05] MEDS: Sodium Bicarbonate 8.4% Inj 75 MEQ in Sodium Chloride 0.45 % Inj 1,000 ML IV.CONT SCH (15:50)
[2018-03-05] MEDS: Iron Sucrose Inj 200 MG in Sodium Chlor 0.9% Inj 100 ML IV.SIG SCH (16:04)
[2018-03-05] MEDS: Morphine Inj 4 MG/ML Vial IV.PUSH PRN ×2 (20:27→23:41)
[2018-03-06] MEDS: Argatroban Inj 250 MG in Sodium Chlor 0.9% Inj 247.5 ML IV.CONT PRN (01:52)
[2018-03-06] MEDS: Insulin NovoLOG Aspart Correctional Sugar Inj SQ SCH ×5 (01:59→23:56)
[2018-03-06] MEDS: Oral Hygiene Kit OROPHARYNG SCH ×4 (04:52→23:48)
[2018-03-06 05:39] LABS: Calcium 6.8 mg/dL (8.5-10.1); Carbon Dioxide 19.2 meq/L (21.0-32.0); Potassium 3.8 meq/L (3.5-5.1)
[2018-03-06 06:02] LABS: Total Protein 4.3 g/dL (6.4-8.2)
[2018-03-06] MEDS: Sodium Bicarbonate 8.4% Inj 75 MEQ in Sodium Chloride 0.45 % Inj 1,000 ML IV.CONT SCH (06:38)
[2018-03-06 07:41] LABS: Baso % (Auto) 0.1 % (0.0-2.0); Eos % (Auto) 0.2 % (0.0-4.0); Lymph # (Auto) 0.4 th/mm3 (1.0-4.8); Lymph % (Auto) 7.6 % (9.0-44.0); Mean Corpuscular HGB Conc 33.2 % (32.0-36.0); Mean Corpuscular Hemoglobin 32.2 pg (27.0-34.0); Mono # (Auto) 0.1 th/mm3 (0.0-0.9); Mono % (Auto) 2.4 % (0.0-8.0); Neut # (Auto) 4.4 th/mm3 (1.8-7.7); Neut % (Auto) 89.7 % (16.0-70.0); Platelet Count 87 th/mm3 (150-450); Red Blood Count 2.05 mil/mm3 (4.50-5.90); Red Cell Distribution Width 21.2 % (11.6-17.2); White Blood Count 4.9 th/mm3 (4.0-11.0)
[2018-03-06 07:49] LABS: Hematocrit 19.9 % (39.0-51.0); Hemoglobin 6.6 gm/dL (13.0-17.0)
[2018-03-06] MEDS ORDERED: Acetaminophen 325 MG Tablet PO PRN (08:26)
[2018-03-06 08:50] LABS: Ovalocytes 1+
[2018-03-06] MEDS: MethylPREDNISolone Sod Succinate Inj 40 MG/ML Vial IV.PUSH SCH (08:52)
[2018-03-06] MEDS: Chlorhexidine 0.12% Oral Kit 15 ML UDC OROPHARYNG SCH ×2 (08:54→20:00)
[2018-03-06] MEDS: Beneprotein Powder Packet G-TUBE SCH ×3 (08:54→18:06)
[2018-03-06] MEDS: Ferrrous Sulfate 300 MG/5 ML UDC PO SCH (08:55)
[2018-03-06] MEDS: Hypromellose 0.3% Opth Gel 10 GM Bottle EACH EYE SCH ×2 (08:55→20:00)
[2018-03-06] MEDS: Ascorbic Acid 500 MG Tablet NG/OG SCH (08:55)
[2018-03-06] MEDS: Senna/Docusate Sodium 8.6/50 MG Tablet PO SCH ×2 (08:55→20:00)
[2018-03-06] MEDS: Pregabalin 75 MG Capsule PO SCH ×2 (08:55→20:00)
[2018-03-06] MEDS: Amiodarone 200 MG Tablet G-TUBE SCH ×2 (08:55→20:00)
[2018-03-06] MEDS ORDERED: Sodium Chlor 0.9% Inj 250 ML IV.SIG SCH ×2 (09:00)
--- NOTE | 2018-03-06 12:24 | P.PNNP ---
Subjective Interval history: On CPAP trial via trach. Renal function is better. He awakens to stimulation. <Munira Finnegan - Last Filed: 03/06/18 12:18> Physical Exam Vital signs: Vital Signs 03/05/18 12:30 03/05/18 12:45 03/05/18 13:00 Temperature Pulse Rate 91 H 87 86 Respiratory Rate 14 13 14 Blood Pressure 108/65 108/65 109/64 Pulse Oximetry 100 100 100 03/05/18 13:15 03/05/18 13:30 03/05/18 13:45 Temperature Pulse Rate 91 H 92 H 90 Respiratory Rate 16 13 15 Blood Pressure 106/68 109/66 107/64 Pulse Oximetry 100 100 100 03/05/18 14:00 03/05/18 14:09 03/05/18 14:15 Temperature Pulse Rate 92 H 94 H Respiratory Rate 12 13 14 Blood Pressure 113/63 112/68 Pulse Oximetry 100 100 100 03/05/18 14:30 03/05/18 14:45 03/05/18 15:00 Temperature Pulse Rate 94 H 96 H 98 H Respiratory Rate 16 16 14 Blood Pressure 108/65 114/68 113/68 Pulse Oximetry 100 100 100 03/05/18 15:15 03/05/18 15:30 03/05/18 15:45 Temperature Pulse Rate 94 H 93 H 93 H Respiratory Rate 15 16 17 Blood Pressure 109/68 111/71 111/70 Pulse Oximetry 100 100 100 03/05/18 16:00 03/05/18 16:15 03/05/18 16:30 Temperature 98.3 F Pulse Rate 97 H 98 H 96 H Respiratory Rate 17 18 17 Blood Pressure 115/71 116/70 116/74 Pulse Oximetry 100 100 100 03/05/18 18:00 03/05/18 20:00 03/05/18 20:56 Temperature 98.7 F Pulse Rate 102 H 109 H 91 H Respiratory Rate 32 H 16 Blood Pressure 119/71 Pulse Oximetry 100 03/05/18 20:57 03/05/18 22:00 03/06/18 00:00 Temperature Pulse Rate 85 85 Respiratory Rate 18 15 Blood Pressure 102/61 Pulse Oximetry 100 100 03/06/18 00:26 03/06/18 02:00 03/06/18 03:52 Temperature Pulse Rate 85 Respiratory Rate 15 13 Blood Pressure Pulse Oximetry 100 100 03/06/18 04:00 03/06/18 06:00 03/06/18 08:00 Temperature 98.6 F 98.5 F Pulse Rate 90 88 91 H Respiratory Rate 17 18 Blood Pressure 104/59 L 94/55 L Pulse Oximetry 100 100 03/06/18 09:55 03/06/18 10:00 Temperature Pulse Rate 91 H 87 Respiratory Rate 19 Blood Pressure Pulse Oximetry 100 Intake & Output 03/05/18 03/06/18 03/06/18 18:59 06:59 18:59 Intake Total 2160 / 2160 2005 200 / 200 Output Total 1400 / 1400 3325 / 3325 Balance 760 / 760 -1319 / -1319 200 / 200 Weight 63.5 kg Intake: IV 810 / 810 1375 / 1375 200 / 200 Novastan Inj 250 MG In NS Inj 250 / 250 247.5 ML @ 2 MCG/KG/MIN 7.56 mls/hr IV.CONT TITRATE PRN Rx#: [id number] Sodium Bicarbonate 8.4% Inj 75 1075 / 1075 MEQ In 1/2 Normal Saline Inj 1, 000 ML @ 75 mls/hr IV.CONT . [id number] ADRIEN Rx#:[id number] Azactam Inj 1,000 MG In NS Inj 200 / 200 200 / 200 100 / 100 100 ML @ 200 mls/hr IV.SIG Q6H [facility] Rx#:[id number] Diflucan 200 mg Premix Bag 100 100 / 100 ML @ 100 mls/hr IV.SIG Q24H [facility] Rx#:[id number] Venofer Inj 200 MG In NS Inj 110 / 110 100 ML @ 110 mls/hr IV.SIG Q24H [facility] Rx#:[id number] KCl 20 mEq Premix Inj 20 meq In 50 / 50 100 ml @ 50 mls/hr IV.SIG Q2H [facility] Rx#:[id number] Ancef Inj 1,000 MG In NS Inj 100 / 100 100 / 100 100 / 100 100 ML @ 200 mls/hr IV.SIG Q12H [facility] Rx#:[id number] Oral 0 / 0 Tube Feeding 750 / 750 631 / 631 Water Bolus Amount 600 / 600 Output: Urine 1300 / 1300 Stool 100 / 100 2000 / 1999 Urine Amount (Catheter) 1325 / 1325 Indwelling Urethral Catheter 1325 / 1325 Other: Date of Last Bowel Movement 03/04/18 03/05/18 03/05/18 - Constitutional no acute distress, cachectic, chronically ill appearing - Routine HEENT Exam Head: Present: normocephalic - Routine Neck Exam Present: supple, full ROM. Absent: JVD Comments: trach, some old bleeding at site - Routine Respiratory Exam Present: patient mechanically ventilated - Routine Cardiovascular Exam Present: RRR, S1, S2 - Routine Abdominal Exam Present: soft, normoactive bowel sounds Comments: PEG - Routine Extremities Exam Present: pulses intact. Absent: edema - Routine Skin Exam Present: intact, dry, warm - Routine Neurological Exam sedated on vent - Routine Psychiatric Exam Present: unable to assess - Urinary Catheter Management Condom Cath placed during this visit: yes Urethral indwelling: Yes Reason for continuing: Acute urinary retention Insertion date: 02/24/18 Indwelling Urethral Catheter Cath placed during this visit: yes Reason for continuing: Acute urinary retention Insertion date: 02/24/18 Indwelling Temp Sensing Catheter Cath placed during this visit: yes, but has since been removed by the nurse Reason for continuing: Acute urinary retention Insertion date: 02/12/18 Insertion time: 20:15 Removal date: 02/20/18 Removal time: 16:00 <Munira Finnegan - Last Filed: 03/06/18 12:18> Vital signs: Vital Signs 03/06/18 12:00 03/06/18 12:49 03/06/18 14:00 Temperature 98.4 F Pulse Rate 87 85 Respiratory Rate 18 18 Blood Pressure 94/56 L Pulse Oximetry 100 100 03/06/18 15:54 03/06/18 16:00 03/06/18 16:11 Temperature 98.5 F 98.2 F 97.9 F Pulse Rate 80 81 86 Respiratory Rate 16 18 15 Blood Pressure 98/59 L 97/55 L 95/59 L Pulse Oximetry 100 100 03/06/18 18:00 03/06/18 20:00 03/06/18 20:30 Temperature 98.5 F Pulse Rate 73 81 Respiratory Rate 17 16 Blood Pressure 105/60 Pulse Oximetry 100 100 03/06/18 22:00 03/07/18 00:00 03/07/18 01:36 Temperature 98.4 F Pulse Rate 87 84 Respiratory Rate 18 19 Blood Pressure 106/58 L Pulse Oximetry 100 100 03/07/18 02:00 03/07/18 04:00 03/07/18 04:25 Temperature 98.1 F Pulse Rate 81 77 Respiratory Rate 16 16 Blood Pressure 110/66 Pulse Oximetry 100 100 03/07/18 06:00 03/07/18 08:00 03/07/18 09:58 Temperature 98.2 F Pulse Rate 86 81 Respiratory Rate 16 17 Blood Pressure 103/65 Pulse Oximetry 100 100 03/07/18 10:00 Temperature Pulse Rate 81 Respiratory Rate Blood Pressure Pulse Oximetry Intake & Output 03/06/18 03/07/18 03/07/18 18:59 06:59 18:59 Intake Total 1379 / 1379 2370 / 2370 200 / 200 Output Total 1050 / 1050 1300 / 1300 Balance 329 / 329 1070 / 1070 200 / 200 Weight 66.5 kg Intake: IV 510 / 510 1375 / 1375 200 / 200 Azactam Inj 1,000 MG In NS Inj 200 / 200 200 / 200 100 / 100 100 ML @ 200 mls/hr IV.SIG Q6H [facility] Rx#:[id number] Diflucan 200 mg Premix Bag 100 100 / 100 ML @ 100 mls/hr IV.SIG Q24H [facility] Rx#:[id number] Venofer Inj 200 MG In NS Inj 110 / 110 100 ML @ 110 mls/hr IV.SIG Q24H [facility] Rx#:[id number] Ancef Inj 1,000 MG In NS Inj 200 / 200 100 / 100 100 ML @ 200 mls/hr IV.SIG Q12H [facility] Rx#:[id number] Tube Feeding 469 / 469 645 / 645 Water Bolus Amount 350 / 350 Intake (Blood Product) Amt 400 / 400 Rbc As-3 Leukoreduced Unit 400 / 400 [id number] Output: Urine 1000 / 1000 Stool 50 / 50 300 / 300 Urine Amount (Catheter) 1000 / 1000 Indwelling Urethral Catheter 1000 / 1000 Other: Date of Last Bowel Movement 03/05/18 03/07/18 03/05/18 - Urinary Catheter Management Condom Cath placed during this visit: no Indwelling Urethral Catheter Cath placed during this visit: no Indwelling Temp Sensing Catheter Cath placed during this visit: no <Evangelist Ashley - Last Filed: 03/07/18 11:09> Assessment and Plan - Assessment (1) Acute kidney injury Code(s): N17.9 - Acute kidney failure, unspecified Status: Acute Plan: Baseline 0.9-1.2. SHARON was due to overdiuresis and dehydration, possibly infection. Renal function improving. Low EF, stop IVF as he is developing edema. Repeat labs daily. He is non oliguric, monitor urine output. Avoid nephrotoxic agents. His prognosis is very poor. He is severely malnourished and at risk for complications. Monitor urine output and renal function. (2) Hyperosmolality and hypernatremia Code(s): E87.0 - Hyperosmolality and hypernatremia Status: Acute Plan: Improved. On free water with tube feeding. (3) Hyperkalemia Code(s): E87.5 - Hyperkalemia Status: Acute Plan: Improved. Intermittent hypokalemia. Replace if needed. (4) Sepsis Code(s): A41.9 - Sepsis, unspecified organism Status: Acute Plan: He is on IV Aztreonam, cefazolin, and fluconazole. Blood cultures negative Urine cultures positive. Continue supportive care. (5) Heart valve replaced by other means Code(s): Z95.4 - Presence of other heart-valve replacement Status: Acute Plan: Heparin drip off due to +HIT (6) Atrial fibrillation Code(s): I48.91 - Unspecified atrial fibrillation Status: Acute Plan: On amiodarone PO. (7) Anemia Code(s): D64.9 - Anemia, unspecified Status: Acute Plan: Given Venofer Transfuse if needed Monitor CBC (8) Thrombocytopenia Code(s): D69.6 - Thrombocytopenia, unspecified Status: Acute Plan: + HIT On argatroban. Transfused platelets 03/03. Heme/onc following. <Munira Finnegan - Last Filed: 03/06/18 12:18> - Assessment (1) Acute kidney injury Code(s): N17.9 - Acute kidney failure, unspecified Status: Acute (2) Hyperosmolality and hypernatremia Code(s): E87.0 - Hyperosmolality and hypernatremia Status: Acute (3) Hyperkalemia Code(s): E87.5 - Hyperkalemia Status: Acute (4) Sepsis Code(s): A41.9 - Sepsis, unspecified organism Status: Acute (5) Heart valve replaced by other means Code(s): Z95.4 - Presence of other heart-valve replacement Status: Acute (6) Atrial fibrillation Code(s): I48.91 - Unspecified atrial fibrillation Status: Acute (7) Anemia Code(s): D64.9 - Anemia, unspecified Status: Acute (8) Thrombocytopenia Code(s): D69.6 - Thrombocytopenia, unspecified Status: Acute - Attending Attestation patient was seen and examined. Agree with above assessment and plan. <Evangelist Ashley - Last Filed: 03/07/18 11:09>
--- NOTE | 2018-03-06 13:40 | P.PNONC ---
Subjective Interval history: Afebrile Patient remains on CPAP More alert today. Mouthed the word "hi" at bedside. She remains hopeful for a full recovery No bleeding Objective Vital Signs/Intake & Output: Vital Signs 03/05/18 13:45 03/05/18 14:00 03/05/18 14:09 Temperature Pulse Rate 90 92 H Respiratory Rate 15 12 13 Blood Pressure 107/64 113/63 Pulse Oximetry 100 100 100 03/05/18 14:15 03/05/18 14:30 03/05/18 14:45 Temperature Pulse Rate 94 H 94 H 96 H Respiratory Rate 14 16 16 Blood Pressure 112/68 108/65 114/68 Pulse Oximetry 100 100 100 03/05/18 15:00 03/05/18 15:15 03/05/18 15:30 Temperature Pulse Rate 98 H 94 H 93 H Respiratory Rate 14 15 16 Blood Pressure 113/68 109/68 111/71 Pulse Oximetry 100 100 100 03/05/18 15:45 03/05/18 16:00 03/05/18 16:15 Temperature 98.3 F Pulse Rate 93 H 97 H 98 H Respiratory Rate 17 17 18 Blood Pressure 111/70 115/71 116/70 Pulse Oximetry 100 100 100 03/05/18 16:30 03/05/18 18:00 03/05/18 20:00 Temperature 98.7 F Pulse Rate 96 H 102 H 109 H Respiratory Rate 17 32 H Blood Pressure 116/74 119/71 Pulse Oximetry 100 100 03/05/18 20:56 03/05/18 20:57 03/05/18 22:00 Temperature Pulse Rate 91 H 85 Respiratory Rate 16 18 Blood Pressure Pulse Oximetry 100 03/06/18 00:00 03/06/18 00:26 03/06/18 02:00 Temperature Pulse Rate 85 85 Respiratory Rate 15 15 Blood Pressure 102/61 Pulse Oximetry 100 100 03/06/18 03:52 03/06/18 04:00 03/06/18 06:00 Temperature 98.6 F Pulse Rate 90 88 Respiratory Rate 13 17 Blood Pressure 104/59 L Pulse Oximetry 100 100 03/06/18 08:00 03/06/18 09:55 03/06/18 10:00 Temperature 98.5 F Pulse Rate 91 H 91 H 87 Respiratory Rate 18 19 Blood Pressure 94/55 L Pulse Oximetry 100 100 03/06/18 12:00 03/06/18 12:49 Temperature 98.4 F Pulse Rate 87 Respiratory Rate 18 18 Blood Pressure 94/56 L Pulse Oximetry 100 100 Intake & Output 03/05/18 03/06/18 03/06/18 18:59 06:59 18:59 Intake Total 2160 / 2160 2005 200 / 200 Output Total 1400 / 1400 3325 / 3325 Balance 760 / 760 -1319 / -1319 200 / 200 Weight 139 lb 15.896 oz Intake: IV 810 / 810 1375 / 1375 200 / 200 Novastan Inj 250 MG In NS Inj 250 / 250 247.5 ML @ 2 MCG/KG/MIN 7.56 mls/hr IV.CONT TITRATE PRN Rx#: [id number] Sodium Bicarbonate 8.4% Inj 75 1075 / 1075 MEQ In 1/2 Normal Saline Inj 1, 000 ML @ 75 mls/hr IV.CONT . [id number] ADRIEN Rx#:[id number] Azactam Inj 1,000 MG In NS Inj 200 / 200 200 / 200 100 / 100 100 ML @ 200 mls/hr IV.SIG Q6H ADRIEN Rx#:[id number] Diflucan 200 mg Premix Bag 100 100 / 100 ML @ 100 mls/hr IV.SIG Q24H ADRIEN Rx#:[id number] Venofer Inj 200 MG In NS Inj 110 / 110 100 ML @ 110 mls/hr IV.SIG Q24H ADRIEN Rx#:[id number] KCl 20 mEq Premix Inj 20 meq In 50 / 50 100 ml @ 50 mls/hr IV.SIG Q2H ADRIEN Rx#:[id number] Ancef Inj 1,000 MG In NS Inj 100 / 100 100 / 100 100 / 100 100 ML @ 200 mls/hr IV.SIG Q12H ADRIEN Rx#:[id number] Oral 0 / 0 Tube Feeding 750 / 750 631 / 631 Water Bolus Amount 600 / 600 Output: Urine 1300 / 1300 Stool 100 / 100 2000 / 2000 Urine Amount (Catheter) 1325 / 1325 Indwelling Urethral Catheter 1325 / 1325 Other: Date of Last Bowel Movement 03/04/18 03/05/18 03/05/18 Result Diagrams: 03/06/18 06:39 03/06/18 04:45 Laboratory Results: Laboratory Results - last 24 hr 03/05/18 03/05/18 03/05/18 15:00 17:11 18:45 WBC RBC Hgb Hct MCV MCH MCHC RDW Plt Count MPV Prelim Diff (Auto) Neut % (Auto) Lymph % (Auto) Hood % (Auto) Eos % (Auto) Baso % (Auto) Neut # (Auto) Lymph # (Auto) Hood # (Auto) Eos # (Auto) Baso # (Auto) WBC Differential Diff Scan Differential Comment Platelet Estimate Platelet Morphology Ovalocytes APTT 33.8 H D 71.6 H D Sodium Potassium Chloride Carbon Dioxide Anion Gap BUN Creatinine Estimated GFR POC Glucose 240 H Random Glucose Calcium Prot Corrected Calcium Total Protein 03/06/18 03/06/18 03/06/18 01:58 04:45 04:45 WBC RBC Hgb Hct MCV MCH MCHC RDW Plt Count MPV Prelim Diff (Auto) Neut % (Auto) Lymph % (Auto) Hood % (Auto) Eos % (Auto) Baso % (Auto) Neut # (Auto) Lymph # (Auto) Hood # (Auto) Eos # (Auto) Baso # (Auto) WBC Differential Diff Scan Differential Comment Platelet Estimate Platelet Morphology Ovalocytes APTT 56.6 H D Sodium 145 Potassium 3.8 Chloride 116 H D Carbon Dioxide 19.2 L Anion Gap 10 BUN 49 H Creatinine 1.40 H Estimated GFR 51 L POC Glucose 151 H Random Glucose 132 H Calcium 6.8 L* Prot Corrected Calcium 8.3 L Total Protein 4.3 L D 03/06/18 03/06/18 06:39 12:26 WBC 4.9 RBC 2.05 L Hgb 6.6 L* Hct 19.9 L* MCV 97.0 MCH 32.2 MCHC 33.2 RDW 21.2 H Plt Count 87 L MPV 11.0 Prelim Diff (Auto) Slide review pending Neut % (Auto) 89.7 H Lymph % (Auto) 7.6 L Hood % (Auto) 2.4 Eos % (Auto) 0.2 Baso % (Auto) 0.1 Neut # (Auto) 4.4 Lymph # (Auto) 0.4 L Hood # (Auto) 0.1 Eos # (Auto) 0.0 Baso # (Auto) 0.0 WBC Differential . Diff Scan Auto diff confirmed Differential Comment . Platelet Estimate Low L Platelet Morphology Enlarged H Ovalocytes 1+ H APTT Sodium Potassium Chloride Carbon Dioxide Anion Gap BUN Creatinine Estimated GFR POC Glucose 164 H Random Glucose Calcium Prot Corrected Calcium Total Protein Culture Results: Microbiology 02/27/18 02:28 Aerobic Blood Culture - Final Blood - Peripheral No growth in 5 days Anaerobic Blood Culture - Final No growth in 5 days 02/27/18 02:20 Aerobic Blood Culture - Final Blood - Peripheral No growth in 5 days Anaerobic Blood Culture - Final No growth in 5 days Medications: Active Medications Generic Name Dose Route Start Last Admin Trade Name Freq PRN Reason Stop Dose Admin Acetaminophen 650 mg 02/14/18 09:23 02/19/18 15:18 Tylenol Liq PO 650 mg Q6H PRN Administration FEVER Hydrocodone Bitart/Acetaminophen 1 tab 03/05/18 08:11 03/06/18 01:52 [place] 7.5/325 PO 1 tab Q4H PRN Administration pain 1-10 Albuterol 2.5 mg 02/05/18 00:00 03/06/18 09:49 Albuterol Neb (Prn) NEB 2.5 mg Q2HR NEB PRN Administration SHORTNESS OF BREATH/WHEEZING Amiodarone HCl 400 mg 02/11/18 12:00 03/06/18 08:55 Cordarone G-TUBE 400 mg BID ADRIEN Administration Artificial Tears 1 drops 02/14/18 21:00 03/06/18 08:55 [place] Severe Dry Eye Relief 0.3% Opth Gel EACH EYE 1 drops BID ADRIEN Administration Ascorbic Acid 500 mg 02/15/18 09:00 03/06/18 08:55 Vitamin C NG/OG 500 mg DAILY ADRIEN Administration Aspirin 81 mg 02/06/18 09:00 03/06/18 08:54 Aspirin Chew PO Not Given DAILY ADRIEN Atorvastatin Calcium 40 mg 02/05/18 21:00 03/05/18 20:28 Lipitor PO 40 mg HS ADRIEN Administration Chlorhexidine Gluconate 15 ml 02/06/18 08:00 03/06/18 08:54 Peridex 0.12% Oral Kit OROPHARYNG 15 ml BID@0800,2000 ADRIEN Administration Clopidogrel Bisulfate 75 mg 02/06/18 09:00 02/25/18 09:13 Plavix PO 75 mg DAILY ADRIEN Administration Dextrose 50 ml 02/13/18 09:27 03/01/18 06:02 D50w Vial IV.PUSH 50 ml UNSCH PRN Administration PER HYPOGLYCEMIA PROTOCOL Digoxin 250 mcg 02/07/18 09:00 02/11/18 15:41 Lanoxin Inj IV.PUSH Not Given DAILY ADRIEN Duloxetine HCl 90 mg 02/05/18 09:00 02/11/18 11:18 Cymbalta PO Not Given DAILY ADRIEN Ferrous Sulfate 300 mg 02/15/18 09:00 03/06/18 08:55 Ferrrous Sulfate Liq PO 300 mg DAILY ADRIEN Administration Fluconazole 100 mls @ 100 mls/hr 02/27/18 00:00 03/05/18 23:40 Diflucan 200 Mg Premix Bag IV.SIG 100 mls/hr Q24H ADRIEN Administration Aztreonam 1,000 mg/ Sodium 100 mls @ 200 mls/hr 02/28/18 20:00 03/06/18 09:25 Chloride IV.SIG Infused Q6H ADRIEN Infusion Cefazolin Sodium 1,000 mg/ 100 mls @ 200 mls/hr 02/28/18 19:00 03/06/18 07:10 Sodium Chloride IV.SIG Infused Q12H ADRIEN Infusion Argatroban 250 mg/ Sodium 250 mls @ 7.56 mls/hr 03/02/18 15:00 03/06/18 01:52 Chloride IV.CONT 2 mcg/kg/min TITRATE PRN 7.56 mls/hr Per Protocol Administration Protocol 2 MCG/KG/MIN Iron Sucrose 200 mg/ Sodium 110 mls @ 110 mls/hr 03/02/18 16:00 03/05/18 18: 49 Chloride IV.SIG Infused Q24H ADRIEN Infusion Sodium Bicarbonate 75 meq/ 1,075 mls @ 75 mls/hr 03/05/18 15:00 03/06/18 06: 38 Sodium Chloride IV.CONT 75 mls/hr .[id number] ADRIEN Administration Insulin Aspart 0 unit 02/13/18 12:00 03/06/18 13:21 Novolog Insulin Correctional Sugar Inj SQ 1 unit Q6HR ADRIEN Administration Protocol Lactulose 30 ml 02/05/18 00:00 02/05/18 08:38 Lactulose Liq PO 30 ml DAILY PRN Administration SEVERE CONSITIPATION Lansoprazole 30 mg 02/15/18 09:00 03/06/18 08:55 Prevacid Solutab NG/OG 30 mg DAILY ADRIEN Administration Methylprednisolone Sodium Succinate 40 mg 02/20/18 09:00 08/20/18 08:52 Solumedrol Inj IV.PUSH 40 mg DAILY ADRIEN Administration Metoclopramide HCl 5 mg 03/04/18 10:00 03/06/18 06:37 Reglan Inj IV.PUSH 5 mg Q8HR ADRIEN Administration Protocol Morphine Sulfate 4 mg 03/05/18 08:12 03/05/18 23:41 Morphine Inj IV.PUSH 4 mg Q3H PRN Administration breakthrough pain Multivitamins 1 tab 02/05/18 09:00 03/06/18 08:55 Theragran PO 1 tab DAILY ADRIEN Administration Potassium Chloride 20 meq 02/14/18 09:00 02/25/18 20:39 Kcl G-TUBE Not Given BID ADRIEN Pregabalin 150 mg 02/04/18 23:50 03/06/18 08:55 Lyrica PO 150 mg BID ADRIEN Administration Senna/Docusate Sodium 1 tab 02/05/18 09:00 03/06/18 08:55 Linda-Colace PO 1 tab BID ADRIEN Administration Sodium Chloride 2 ml 02/05/18 09:00 03/06/18 12:16 Ns Flush IV.FLUSH 2 ml BID ADRIEN Administration Sterile Water 300 ml 03/02/18 18:00 03/06/18 12:16 Free Water G-TUBE 300 ml Q6HR ADRIEN Administration Vancomycin HCl 500 mg 02/11/18 16:00 03/06/18 12:16 Vancomycin Po G-TUBE 500 mg Q6HR ADRIEN Administration Whey 1 packet 02/08/18 13:00 03/06/18 12:16 Beneprotein Powder G-TUBE 1 packet TID ADRIEN Administration Objective Remarks: GENERAL: Chronically ill-appearing older male resting in bed in no obvious distress SKIN: Warm and dry. HEAD: Normocephalic. EYES: No scleral icterus. No injection or drainage. NECK: Tracheostomy midline. No oozing noted. CARDIOVASCULAR: Regular rate and rhythm without murmurs. Occasional PVC noted on director of cardiac cath lab RESPIRATORY: Scattered rhonchi anteriorly. Patient on 35% FiO2 GASTROINTESTINAL: Abdomen soft, non-tender, nondistended. EXTREMITIES: No cyanosis MUSCULOSKELETAL: Generalized weakness NEUROLOGICAL: Patient made eye contact. More alert than previously seen. Assessment/Plan - Plan 62-year-old male admitted to the hospital in late January for fever and hypotension. He was found to have septic shock. He has C. difficile colitis. Hematology consulted for thrombocytopenia. 1. Patient doing well on argatroban drip. His hemoglobin is low today. I have ordered 1 unit packed red blood cell transfusion. We will check stool for occult blood while he is on anticoagulation. Await RITA results 2. Monitor CBC, coags and LFTs. 3. Supportive care. - Attending Statement The exam, history, and the medical decision-making described in the above note were completed with the assistance of the mid-level provider. I reviewed and agree with the findings presented. I attest that I had a [id number] encounter with the patient on the same day, and personally performed and documented my assessment and findings in the medical record. Remains on vent. No obvious bleeding noted. Hgb trended lower and will transfuse PRBC. Platelet trended up and continue argatroban. Monitor CBC.
--- NOTE | 2018-03-06 15:44 | P.PNPAL ---
Reason for Visit Reason for visit: a. To assist with evaluation and management of symptoms including: pain, dyspnea, weakness b. To assist medical decision maker(s) with: better understanding of current medical conditions; weighing benefits/burdens of medical treatment options; making medical treatment decisions. Subjective Subjective/Interval History: Pt in bed, trach to vent. s/p PEG tube placement. at bedside praying for him. He opens eyes and nods appropriately, follows commands. He was able to squeeze my hand but weakly. Still with loose stool. TF running.Denies abd pain. Admits pain elsewhere but cannot say where or qualify further. CPAP trials ongoing. Worsening bilat airspace disease, pleural effusion on CXRs. Family/Friend Interactions: at bedside. Provided brief update, supportive listening. Her goals are aggressive, she feels God is healing him and anyone who believes otherwise should not enter the room. Objective Vital Signs: Vital Signs 03/05/18 15:30 03/05/18 15:45 03/05/18 16:00 Temperature 98.3 F Pulse Rate 93 H 93 H 97 H Respiratory Rate 16 17 17 Blood Pressure 111/71 111/70 115/71 Pulse Oximetry 100 100 100 03/05/18 16:15 03/05/18 16:30 03/05/18 18:00 Temperature Pulse Rate 98 H 96 H 102 H Respiratory Rate 18 17 Blood Pressure 116/70 116/74 Pulse Oximetry 100 100 03/05/18 20:00 03/05/18 20:56 03/05/18 20:57 Temperature 98.7 F Pulse Rate 109 H 91 H Respiratory Rate 32 H 16 18 Blood Pressure 119/71 Pulse Oximetry 100 100 03/05/18 22:00 03/06/18 00:00 03/06/18 00:26 Temperature Pulse Rate 85 85 Respiratory Rate 15 15 Blood Pressure 102/61 Pulse Oximetry 100 100 03/06/18 02:00 03/06/18 03:52 03/06/18 04:00 Temperature 98.6 F Pulse Rate 85 90 Respiratory Rate 13 17 Blood Pressure 104/59 L Pulse Oximetry 100 100 03/06/18 06:00 03/06/18 08:00 03/06/18 09:55 Temperature 98.5 F Pulse Rate 88 91 H 91 H Respiratory Rate 18 19 Blood Pressure 94/55 L Pulse Oximetry 100 100 03/06/18 10:00 03/06/18 12:00 03/06/18 12:49 Temperature 98.4 F Pulse Rate 87 87 Respiratory Rate 18 18 Blood Pressure 94/56 L Pulse Oximetry 100 100 03/06/18 14:00 Temperature Pulse Rate 85 Respiratory Rate Blood Pressure Pulse Oximetry Intake & Output 03/05/18 03/06/18 03/06/18 18:59 06:59 18:59 Intake Total 2160 / 2160 2005 200 / 200 Output Total 1400 / 1400 3325 / 3325 Balance 760 / 760 -1319 / -1319 200 / 200 Weight 63.5 kg Intake: IV 810 / 810 1375 / 1375 200 / 200 Novastan Inj 250 MG In NS Inj 250 / 250 247.5 ML @ 2 MCG/KG/MIN 7.56 mls/hr IV.CONT TITRATE PRN Rx#: [id number] Sodium Bicarbonate 8.4% Inj 75 1075 / 1075 MEQ In 1/2 Normal Saline Inj 1, 000 ML @ 75 mls/hr IV.CONT . [id number] ADRIEN Rx#:[id number] Azactam Inj 1,000 MG In NS Inj 200 / 200 200 / 200 100 / 100 100 ML @ 200 mls/hr IV.SIG Q6H ADRIEN Rx#:[id number] Diflucan 200 mg Premix Bag 100 100 / 100 ML @ 100 mls/hr IV.SIG Q24H ADRIEN Rx#:[id number] Venofer Inj 200 MG In NS Inj 110 / 110 100 ML @ 110 mls/hr IV.SIG Q24H ADRIEN Rx#:[id number] KCl 20 mEq Premix Inj 20 meq In 50 / 50 100 ml @ 50 mls/hr IV.SIG Q2H ADRIEN Rx#:[id number] Ancef Inj 1,000 MG In NS Inj 100 / 100 100 / 100 100 / 100 100 ML @ 200 mls/hr IV.SIG Q12H ADRIEN Rx#:[id number] Oral 0 / 0 Tube Feeding 750 / 750 631 / 631 Water Bolus Amount 600 / 600 Output: Urine 1300 / 1300 Stool 100 / 100 2000 / 2000 Urine Amount (Catheter) 1325 / 1325 Indwelling Urethral Catheter 1325 / 1325 Other: Date of Last Bowel Movement 03/04/18 03/05/18 03/05/18 Physical Exam: CONSTITUTIONAL/GENERAL: ill appearing and cachectic male SKIN: Sallow. No jaundice, rashes, or lesions. No wounds seen anteriorly. Not diaphoretic. HEAD: Atraumatic. Normocephalic. + temporal wasting EYES: No scleral icterus. Fundi not examined. PERRL. ENT: Nose without bleeding or purulent drainage. tracheostomy to vent, dried blood around trach site CARDIOVASCULAR:RRR without murmurs, gallops, or rubs. + click. RESPIRATORY/CHEST: Symmetric, unlabored respirations. lung sounds diminished. GASTROINTESTINAL: Abdomen soft, mildly distended, TTP. No hepato-splenomegaly, or palpable masses. Bowel sounds faint. +rectal bag with scant liquid stool GENITOURINARY: Without palpable bladder distension. Cano catheter in place. MUSCULOSKELETAL: Extremities without clubbing, cyanosis. No mottling or clubbing. NEUROLOGICAL: opens eyes, tracks, follows commands. weak. Diagnostic Tests Laboratory: Laboratory Results - last 72 hr 03/03/18 03/03/18 03/04/18 16:51 23:55 06:05 WBC RBC Hgb Hct MCV MCH MCHC RDW Plt Count MPV Prelim Diff (Auto) Neut % (Auto) Lymph % (Auto) [place] % (Auto) Eos % (Auto) Baso % (Auto) Neut # (Auto) Lymph # (Auto) [place] # (Auto) Eos # (Auto) Baso # (Auto) WBC Differential Diff Scan Differential Comment Platelet Estimate Platelet Morphology Ovalocytes APTT Sodium Potassium Chloride Carbon Dioxide Anion Gap BUN Creatinine Estimated GFR POC Glucose 131 H 134 H 127 H Random Glucose Calcium Prot Corrected Calcium Total Bilirubin AST ALT Alkaline Phosphatase Total Protein Albumin Blood Type Blood Type Recheck Antibody Screen MTS Gel Crossmatch 03/04/18 03/04/18 03/04/18 07:53 08:00 08:00 WBC 5.6 RBC 2.26 L Hgb 7.1 L Hct 21.8 L MCV 96.6 MCH 31.7 MCHC 32.8 RDW 20.2 H Plt Count 72 L D MPV 10.2 Prelim Diff (Auto) Neut % (Auto) Lymph % (Auto) [place] % (Auto) Eos % (Auto) Baso % (Auto) Neut # (Auto) Lymph # (Auto) [place] # (Auto) Eos # (Auto) Baso # (Auto) WBC Differential Diff Scan Differential Comment Platelet Estimate Platelet Morphology Ovalocytes APTT 58.5 H D Sodium Potassium Chloride Carbon Dioxide Anion Gap BUN Creatinine Estimated GFR POC Glucose 115 H Random Glucose Calcium Prot Corrected Calcium Total Bilirubin AST ALT Alkaline Phosphatase Total Protein Albumin Blood Type Blood Type Recheck Antibody Screen MTS Gel Crossmatch 03/04/18 03/04/18 03/05/18 08:00 17:24 00:00 WBC RBC Hgb Hct MCV MCH MCHC RDW Plt Count MPV Prelim Diff (Auto) Neut % (Auto) Lymph % (Auto) [place] % (Auto) Eos % (Auto) Baso % (Auto) Neut # (Auto) Lymph # (Auto) [place] # (Auto) Eos # (Auto) Baso # (Auto) WBC Differential Diff Scan Differential Comment Platelet Estimate Platelet Morphology Ovalocytes APTT Sodium 137 Potassium 3.2 L Chloride 107 Carbon Dioxide 18.4 L Anion Gap 12 BUN 55 H Creatinine 1.75 H Estimated GFR 39 L POC Glucose 126 H 113 H Random Glucose 114 H Calcium 6.8 L* Prot Corrected Calcium 7.9 L Total Bilirubin 0.3 AST 27 ALT 12 Alkaline Phosphatase 48 Total Protein 5.0 L Albumin 1.9 L Blood Type Blood Type Recheck Antibody Screen MTS Gel Crossmatch 03/05/18 03/05/18 03/05/18 01:00 05:12 05:12 WBC 6.7 RBC 2.24 L Hgb 7.1 L Hct 21.5 L MCV 95.7 MCH 31.5 MCHC 32.9 RDW 19.9 H Plt Count 73 L MPV 9.7 Prelim Diff (Auto) Slide review pending Neut % (Auto) 92.2 H Lymph % (Auto) 4.6 L [place] % (Auto) 3.0 Eos % (Auto) 0.0 Baso % (Auto) 0.2 Neut # (Auto) 6.1 Lymph # (Auto) 0.3 L [place] # (Auto) 0.2 Eos # (Auto) 0.0 Baso # (Auto) 0.0 WBC Differential . Diff Scan Auto diff confirmed Differential Comment . Platelet Estimate Low L Platelet Morphology Normal Ovalocytes 1+ H APTT 44.4 H D Sodium Potassium Chloride Carbon Dioxide Anion Gap BUN Creatinine 1.66 H Estimated GFR 42 L POC Glucose Random Glucose Calcium Prot Corrected Calcium Total Bilirubin AST ALT Alkaline Phosphatase Total Protein Albumin Blood Type Blood Type Recheck Antibody Screen MTS Gel Crossmatch 03/05/18 03/05/18 03/05/18 05:12 05:29 12:03 WBC 6.5 RBC 2.28 L Hgb 7.4 L Hct 21.9 L MCV 96.1 MCH 32.6 MCHC 33.9 RDW 20.5 H Plt Count 72 L MPV 10.4 Prelim Diff (Auto) Slide review pending Neut % (Auto) 90.6 H Lymph % (Auto) 6.1 L [place] % (Auto) 3.2 Eos % (Auto) 0.0 Baso % (Auto) 0.1 Neut # (Auto) 5.9 Lymph # (Auto) 0.4 L [place] # (Auto) 0.2 Eos # (Auto) 0.0 Baso # (Auto) 0.0 WBC Differential . Diff Scan Auto diff confirmed Differential Comment . Platelet Estimate Low L Platelet Morphology Enlarged H Ovalocytes APTT Sodium Potassium Chloride Carbon Dioxide Anion Gap BUN Creatinine Estimated GFR POC Glucose 90 181 H Random Glucose Calcium Prot Corrected Calcium Total Bilirubin AST ALT Alkaline Phosphatase Total Protein Albumin Blood Type Blood Type Recheck Antibody Screen MTS Gel Crossmatch 03/05/18 03/05/18 03/05/18 15:00 17:11 18:45 WBC RBC Hgb Hct MCV MCH MCHC RDW Plt Count MPV Prelim Diff (Auto) Neut % (Auto) Lymph % (Auto) [place] % (Auto) Eos % (Auto) Baso % (Auto) Neut # (Auto) Lymph # (Auto) [place] # (Auto) Eos # (Auto) Baso # (Auto) WBC Differential Diff Scan Differential Comment Platelet Estimate Platelet Morphology Ovalocytes APTT 33.8 H D 71.6 H D Sodium Potassium Chloride Carbon Dioxide Anion Gap BUN Creatinine Estimated GFR POC Glucose 240 H Random Glucose Calcium Prot Corrected Calcium Total Bilirubin AST ALT Alkaline Phosphatase Total Protein Albumin Blood Type Blood Type Recheck Antibody Screen MTS Gel Crossmatch 03/06/18 03/06/18 03/06/18 01:58 04:45 04:45 WBC RBC Hgb Hct MCV MCH MCHC RDW Plt Count MPV Prelim Diff (Auto) Neut % (Auto) Lymph % (Auto) [place] % (Auto) Eos % (Auto) Baso % (Auto) Neut # (Auto) Lymph # (Auto) [place] # (Auto) Eos # (Auto) Baso # (Auto) WBC Differential Diff Scan Differential Comment Platelet Estimate Platelet Morphology Ovalocytes APTT 56.6 H D Sodium 145 Potassium 3.8 Chloride 116 H D Carbon Dioxide 19.2 L Anion Gap 10 BUN 49 H Creatinine 1.40 H Estimated GFR 51 L POC Glucose 151 H Random Glucose 132 H Calcium 6.8 L* Prot Corrected Calcium 8.3 L Total Bilirubin AST ALT Alkaline Phosphatase Total Protein 4.3 L D Albumin Blood Type Blood Type Recheck Antibody Screen MTS Gel Crossmatch 03/06/18 03/06/18 03/06/18 06:39 12:26 13:02 WBC 4.9 RBC 2.05 L Hgb 6.6 L* Hct 19.9 L* MCV 97.0 MCH 32.2 MCHC 33.2 RDW 21.2 H Plt Count 87 L MPV 11.0 Prelim Diff (Auto) Slide review pending Neut % (Auto) 89.7 H Lymph % (Auto) 7.6 L [place] % (Auto) 2.4 Eos % (Auto) 0.2 Baso % (Auto) 0.1 Neut # (Auto) 4.4 Lymph # (Auto) 0.4 L [place] # (Auto) 0.1 Eos # (Auto) 0.0 Baso # (Auto) 0.0 WBC Differential . Diff Scan Auto diff confirmed Differential Comment . Platelet Estimate Low L Platelet Morphology Enlarged H Ovalocytes 1+ H APTT Sodium Potassium Chloride Carbon Dioxide Anion Gap BUN Creatinine Estimated GFR POC Glucose 164 H Random Glucose Calcium Prot Corrected Calcium Total Bilirubin AST ALT Alkaline Phosphatase Total Protein Albumin Blood Type O Positive Blood Type Recheck Not needed Antibody Screen Negative MTS Gel Crossmatch See Detail Result Diagrams: 03/06/18 06:39 03/06/18 04:45 Microbiology: Microbiology 02/27/18 02:28 Aerobic Blood Culture - Final Blood - Peripheral No growth in 5 days Anaerobic Blood Culture - Final No growth in 5 days 02/27/18 02:20 Aerobic Blood Culture - Final Blood - Peripheral No growth in 5 days Anaerobic Blood Culture - Final No growth in 5 days Imaging: ITS Impressions Abdomen/Bladder Ultrasound 02/05/18 00:00 CONCLUSION: 1. No evidence of hydronephrosis. 2. The echogenicity of the kidneys is equal to that of the liver which can be seen with medical renal disease. 3. Simple cyst in right kidney. 4. Suboptimal visualization of the left kidney. 5. Small amount of free fluid along the spleen. This could represent an adjacent pleural effusion. Head CT 02/15/18 12:23 CONCLUSION: 1. Negative CT Head non contrast. . Head MRI 02/16/18 08:28 CONCLUSION: 1. New focus of restricted diffusion high along the right cerebral vertex measuring 8 mm consistent with a new small focal acute infarction. 2. There is a new 5 mm area restricted diffusion high along the left cerebral vertex consistent with a new small focal acute infarction. 3. 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 This area is stable compared to the prior examination. 4. Stable bilateral cortical atrophy and mild chronic white matter changes. 5. Chronic bilateral mastoiditis. Chest CT 02/18/18 00:00 CONCLUSION: 1. Increasing basilar and dependent consolidation in both lungs most characteristic of pneumonia or aspiration. 2. Near complete resolution of previous small effusions. 3. Osteopenia with stable compression deformities in the spine. 4. Previous sternotomy with aortic valve replacement. 5. Right-sided central line, ET tube and NG tube in good position. Abdomen X-Ray 03/04/18 00:00 CONCLUSION: Paucity of bowel gas in the abdomen. Nondilated small air-filled segment of the ascending colon seen. Chest X-Ray 03/04/18 06:00 CONCLUSION: Diffuse increased interstitial markings likely related to edema. Bibasilar areas of consolidation, atelectasis, and/or effusion being worse on the left. Procedures: 02/05 left IJ placement 02/05 retrograde left heart cath, stent placement, IABP placement 02/05 intubated 02/19 extubated 02/23 reintubated 02/28 PEG tube placed 03/03 trach Assessment and Plan - Disease Oriented Problem List (1) Hypokalemia (2) Cardiogenic shock (3) CAD (coronary artery disease) (4) Ventricular fibrillation Pertinent Non-Medical Issues: Psychosocial: On disability. 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 Spiritual: Christianity, non-scientologist. [employer] has visited, they also have roman catholic obiee obia solution architect visiting. Legal: Pt not capacitated to make medical decisions. Unclear if he will regain capacity. Per [place] statutes decision making would fall to as proxy. Ethical issues impacting care: none identified Important Contacts: Maria Isabel Tolentino [phone] sister Yvonne Valdivia [phone] Prognosis: 62 yo male s/p aortic valve replacement 2012 who suffered significant NSTEMI, EF <20% on presentation, troponins up to 32. Echo also showed global hypokinesis. Not clear how much of heart failure was present prior to NSTEMI. s /p heart cath, LAD stenting complicated by vasospasm, placement and subsequent removal of IABP. 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 He has had several runs of v fib and v tach requiring chest compressions, shocks. He has underlying COPD and was having activity intolerance prior to this event. He was reintubated. His prognosis for recovery is poor; chances of returning to baseline extremely poor. Unlikely he would tolerate rehab. He remains at high risk for continued complications including but not limited to recurrent arrhythmias, multi-organ injury; and at risk for further decline. He is hospice appropriate should goals be in line with comfort. Code Status: Full Code Plan: - LEGAL DECISON MAKER - Pt not capacitated to make medical decisions, unclear if he will regain this capacity. Per [place] statutes decision making would fall to as proxy. - CODE STATUS- full code - GOALS - verbalizes aggressive goals. feels God is healing him and anyone who believes otherwise should not enter the room. - SYMPTOMS - * dyspnea - multifactorial - hx COPD, EF < 20%, class 4 heart failure. extubated 02/19, on 10L simple mask. reintubated 02/23. CPAP trials ongoing. now with trach. CPAP trials under way. PRN duonebs, scheduled duonebs * pain - multifactorial, lines, ET tube, catheters, hx chronic back pain 2/2 "chronic fractures." sees pain mgmt, been on hydrocodone , reportedly same dosage and frequency for 6 years. indicates he has pain but is unable to further qualify or quantify. appears comfortable. on [place] 7.5325 1 tab PO q4h PRN, last had 0152 this morning. per ccm. * debility/weakness - multifactorial. profoundly emaciated and ill appearing, per this is his usual appearance. reintubated, at risk for worsening debility. referral to [facility] pending. s/p PEG tube placement, trach. cardiac function prob would not allow aggressive rehab. - Palliative care will continue to follow during hospital course as condition evolves, to assist patient/decision-maker with understanding of medical conditions, weighing benefits/burdens of treatment options, for clarification of goals of treatment. Additionally will assist with any symptoms of palliative concern Attestation Attestation: To help prompt me to consider important information that might be impacting today's encounter and assessment, information from prior notes written by myself or my colleagues may have been "brought forward" into today's note. My signature on this note, however, is an attestation that I personally performed the exam, history, and/or decision-making noted today, and, unless otherwise indicated, the interactions with patient, family, and staff as well as the review of records all occurred today. I also attest that the listed assessment and stated plan reflect my best clinical judgment today based on the combination of historical information, prior notes, and today's exam/ interactions. When time spent is documented, it refers only to time spent today by the signer, or if indicated, combined time spent today by collaborating physician/nurse practitioner.
--- NOTE | 2018-03-06 15:59 | P.PNCC ---
Subjective Subjective Remarks/Hospital Course: 62-year-old male with past medical history of [place] mechanical aortic valve (09/21/12 Dr. Gonzalez), on chronic anticoagulation with warfarin, atrial fibrillation postop from AVR , COPD on 2.5 L home O2, stroke in 2015 resulting in left-sided sensory deficits and neuropathy, osteoporosis with chronic low back pain. He was recently admitted to [facility] from 01/23 through 01/31/18 for MSSA bacteremia. It is believed that the original source of infection was a wound on his right index finger when electric drill slipped and created a puncture wound. He was discharged with right upper extremity PICC line receiving cefazolin 2 g IV every 8 hours and gentamicin 210 mg IV daily. He states that home health administered antibiotics at 17:00 and shortly thereafter he began having chills and rigors and sought medical attention at [facility]. He had no rash. Upon arrival, he was hypotensive in the low 80s. He was given 2 L S bolus but remained hypotensive so was started on Levophed. He then developed heart rate in the 140s, reportedly atrial flutter so he was started on Amiodarone drip in [place] and converted to sinus rhythm. He was transfused 2 units PRBC due to Hgb 9.3. His stool was nonbloody nonmelena but was Hemoccult positive. He was given zosyn and vancomycin. Critical care medicine was then contacted and accepted patient for transfer to [facility]. He denies tenderness/redness/drainage at PICC site. Aside from mechanical aortic valve, he has no other hardware or indwelling devices. He denies headache, cough, dysuria. He has had a few loose stools at home, but stools have sometimes been formed. He denies chest pain, does report some SOB. EKG at [place] had marked inferolateral ischemic changes. Obtained EKG upon arrival to [facility] which is improved. SUBJ 02/05: Patient remains critical ill appearing, complaints of chest tightness but denies pain. Remains on 8 mcg/min of Levophed to maintain map about 65. However increasing shortness of breath. Chest x-ray shows increasing pulmonary edema. Troponin was 27.5 currently on IV heparin therapeutic. Cardiology consult is pending at this time. I will stop on maintenance fluids give 40 mg IV Lasix and IV albumin 25 g 1. Patient is very critical patient and updated at the bedside 02/06: to laboratory worker last night for [facility] with LAD stent complicated by vasospasm of the LAD. IABP placed. patient emergently intubated for acute hypoxic respiratory failure secondary to cardiogenic shock and pulmonary edema. started on milrinone at 0.375 mcg/kg/min and levophed. bumex drip started. remains critically ill. 02/07: Remains critically ill remains on Levophed and milrinone. Currently diuresing well with Bumex drip. IABP in place management per cardiology-good waveform and augmentation. Chest x-ray shows adequate positioning of IABP, diffuse bilateral pulmonary edema 02/08: Remains critical but showing some signs of improvement. Diuresing very well on Bumex infusion. Remains on Levophed and milrinone. IABP one-to-one with good augmentation management per cardiology. Chest x-ray shows improving edema but with persistent bilateral effusions. Will initiate weaning trials if tolerated 02/09: Still remains on pressors, unable to wean Levophed below 2 mcg/min. Milrinone currently on 0.375 mcg/kg/min. IABP removed yesterday. On sedation hold patient wakes up but remains lethargic. Weakly squeezes hand. Urine output excellent on Bumex, 4 L output in 24 hours. Will attempt CPAP today 02/10: Multiple episodes of V. fib V. tach arrest yesterday morning. Successfully resuscitated. Yesterday night had two-minute V. fib arrest return of spontaneous circulation in sinus rhythm after DC cardioversion 1. Currently remains on milrinone and low-dose Levophed. I will try to wean off Levophed introduce low-dose beta-rasheed due to recurrent arrhythmia. Keep potassium more than 4 magnesium more than 2 02/11: Patient still critical and cardiogenic shock requiring Levophed and milrinone. Urine output improved with adding Diamox. Approximately 2 L urine output in 24 hours, creatinine remained stable. Oxygenation slightly improved FiO2 reduced to 70% now. Overall prognosis remains poor family wants to continue aggressive care 02/12: Remains critical but slight improvement in oxygenation. But continues to require Levophed and milrinone the low-dose. Urine output remains adequate. Chest x-ray shows interval improvement. Creatinine remains stable to slightly improved. Add IV albumin to improve blood pressure and to promote diuresis. 02/13 Patient remains intubated and sedated with Versed and fentanyl. Afebrile, off Levophed remains on Milrinone and Heparin drip. 02/14: Hypothermic overnight. Remains on milrinone and heparin drips. Tolerating tube feeds at 20 cc now. Positive BM. No changes neurologically 02/15 Patient remains sedated with Versed and Fentanyl drips, on Milrinone 0.5. 02/16 Patient remains intubated sedated with Versed and Fentanyl infusion. On Milrinone and Heparin drips. CT brain yesterday showed no acute findings. Afebrile. 02/17 Patient remains sedated and intubated. Afebrile, On Milrinone and Heparin drip. 02/18: Remains critical continues to require milrinone. Urine output adequate. Chest x-ray shows bilateral infiltrate effusion. CT chest to better define effusions and infiltrate. Increase Bumex to 1 mg every 8 hours. Patient is persistently weak, will attempt SBT unlikely to be successfully extubated at this time. Most likely will need tracheostomy if family desires aggressive care 02/19: Remains intubated sedated with Versed and fentanyl. Transition to Precedex to facilitate weaning trials. Patient responding slightly more to verbal command, appears to track even though not following commands. Creatinine slightly increased with increased diuresis. Chest x-ray shows improved pleural effusions. CT chest yesterday did not show significant effusion but basilar consolidation. 02/20 Patient was extubated yesterday on 10L simple mask, on Precdex, Heparin and Milrinone drips. Tmax 101.1 yesterday 02/21: Febrile. Currently on 5 L nasal cannula. Continues on heparin drip with 500 units an hour. Received bumetanide 1 mg 1 today. Positive BM 02/22: Remains on 5 L nasal cannula. Remains on heparin drip. No changes neurologically remains medically stable. 02/23: Intubated early this morning secondary to acute respiratory failure. Blood pressure marginal likely due to sedation. Ejection fraction less than 20% . Discussed with at bedside. She was to proceed with tracheostomy in PEG tube placement. We will plan for within the next few days. 02/24: Remains sedated, orally intubated on mechanical ventilation. 02/25: Remains sedated, orally intubated on mechanical ventilation. Worsening renal function noted. Check UA, urine sodium and creatinine. Ordered Kayexalate for hyperkalemia and nephrology consulted. 02/26: Sedated, arousable, orally intubated on mechanical ventilation. Will hold Plavix for planned tracheostomy and PEG tube placement. Remains on heparin for anticoagulation. 02/27: Drowsy, arousable, orally intubated on mechanical ventilation. Awaiting tracheostomy and PEG tube placement. 02/28: Drowsy, arousable, remains orally intubated on mechanical ventilation. PEG tube scheduled for today. 03/01: Drowsy, arousable, remains orally intubated on mechanical ventilation. Underwent PEG tube placement on 02/28. Worsening thrombocytopenia noted and now down to 50,000. Will continue holding Plavix and heparin. Check HIT screen and consult hematology. Awaiting tracheostomy 03/02: Drowsy, arousable, remains orally intubated on mechanical vent relation. Hematology consult noted. 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 03/03: Intubated remains heavily sedated. Was unable to wean off the ventilator , became hypoxemic on CPAP yesterday. 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 Will transfuse 3 packed units of platelets prior to tracheostomy planned for 11 AM today. Platelet count 49,000 03/04 Trached yesterday. Had high residuals earlier today (500 mL) and tube feeds placed on hold. KUB unremarkable. Given reglan, now residual is 10 so resuming tube feeds. On CPAP via trach. Remains sedated on fentanyl and versed, will wean. 03/05 Bleeding at trach site overnight, argatroban was placed on hold. Hgb stable 7.4, platelet count 70k. Surgicell has been ordered but has not yet been applied. Off versed, fentanyl drip still running 50 mcg. He is more alert today , communicates his need to have his mouth suctioned. Subjective: 03/06: No events over the night. T-max of 98.7. Urine output greater than 4 L over the last 24 hours. Objective Vital Signs / I&O: Vital Signs 03/05/18 16:00 03/05/18 16:15 03/05/18 16:30 Temperature 98.3 F Pulse Rate 97 H 98 H 96 H Respiratory Rate Blood Pressure 115/71 116/70 116/74 Pulse Oximetry 100 100 100 03/05/18 18:00 03/05/18 20:00 03/05/18 20:56 Temperature 98.7 F Pulse Rate 102 H 109 H 91 H Respiratory Rate 32 H 16 Blood Pressure 119/71 Pulse Oximetry 100 03/05/18 20:57 03/05/18 22:00 03/06/18 00:00 Temperature Pulse Rate 85 85 Respiratory Rate 18 15 Blood Pressure 102/61 Pulse Oximetry 100 100 03/06/18 00:26 03/06/18 02:00 03/06/18 03:52 Temperature Pulse Rate 85 Respiratory Rate 15 13 Blood Pressure Pulse Oximetry 100 100 03/06/18 04:00 03/06/18 06:00 03/06/18 08:00 Temperature 98.6 F 98.5 F Pulse Rate 90 88 91 H Respiratory Rate 17 18 Blood Pressure 104/59 L 94/55 L Pulse Oximetry 100 100 03/06/18 09:55 03/06/18 10:00 03/06/18 12:00 Temperature 98.4 F Pulse Rate 91 H 87 87 Respiratory Rate 19 18 Blood Pressure 94/56 L Pulse Oximetry 100 100 03/06/18 12:49 03/06/18 14:00 Temperature Pulse Rate 85 Respiratory Rate 18 Blood Pressure Pulse Oximetry 100 Intake & Output 03/05/18 03/06/18 03/06/18 18:59 06:59 18:59 Intake Total 2160 / 2160 2005 200 / 200 Output Total 1400 / 1400 3325 / 3325 Balance 760 / 760 -1319 / -1319 200 / 200 Weight 63.5 kg Intake: IV 810 / 810 1375 / 1375 200 / 200 Novastan Inj 250 MG In NS Inj 250 / 250 247.5 ML @ 2 MCG/KG/MIN 7.56 mls/hr IV.CONT TITRATE PRN Rx#: [id number] Sodium Bicarbonate 8.4% Inj 75 1075 / 1075 MEQ In 1/2 Normal Saline Inj 1, 000 ML @ 75 mls/hr IV.CONT . [id number] [facility] Rx#:[id number] Azactam Inj 1,000 MG In NS Inj 200 / 200 200 / 200 100 / 100 100 ML @ 200 mls/hr IV.SIG Q6H [facility] Rx#:[id number] Diflucan 200 mg Premix Bag 100 100 / 100 ML @ 100 mls/hr IV.SIG Q24H [facility] Rx#:[id number] Venofer Inj 200 MG In NS Inj 110 / 110 100 ML @ 110 mls/hr IV.SIG Q24H [facility] Rx#:[id number] KCl 20 mEq Premix Inj 20 meq In 50 / 50 100 ml @ 50 mls/hr IV.SIG Q2H [facility] Rx#:[id number] Ancef Inj 1,000 MG In NS Inj 100 / 100 100 / 100 100 / 100 100 ML @ 200 mls/hr IV.SIG Q12H [facility] Rx#:[id number] Oral 0 / 0 Tube Feeding 750 / 750 631 / 631 Water Bolus Amount 600 / 600 Output: Urine 1300 / 1300 Stool 100 / 100 1999 / 1999 Urine Amount (Catheter) 1325 / 1325 Indwelling Urethral Catheter 1325 / 1325 Other: Date of Last Bowel Movement 03/04/18 03/05/18 03/05/18 Result Diagrams: 03/06/18 06:39 03/07/18 06:36 Objective Remarks: GENERAL: Elderly gentleman, awake, ill-appearing, on vent HEENT: Pupils are equal and reactive, sclera nonicteric. Positive trach. No JVD CARDIOVASCULAR: Regular S1, S2. No murmurs rubs or gallops. RESPIRATORY: Scattered coarse breath sounds bilateral. No wheezes. GASTROINTESTINAL: Abdomen soft, non-tender, nondistended. PEG in place. MUSCULOSKELETAL: Extremities with bilateral lower extremity edema NEURO: Trached, eyes open, moves right upper extremity on command. Remains very weak Assessment and Plan - Assessment and Plan Plan: NEURO/PSYCH: History of stroke in 2015 Neuropathy left upper and lower extremity Chronic low back pain Acetaminophen 650 every 6 hours as needed fever. 02/15 CT brain: No acute findings. 02/15 EEG : Encephalopathy, no epileptiform activity MRI brain 02/16: New small focal acute infarction right cerebral vertex and also left cerebral vertex. Neuro has followed. Continue ASA 81 mg daily. Continue pregabalin 150 mg p.o. twice daily. Holding duloxetine 90 mg p.o. daily. RESP: Acute hypoxic respiratory failure COPD on 2.5 L home O2 currently on 5 L Prior tobacco abuse Bilateral pleural effusions Perc trach 03/03. On CPAP trial 04/21. T-piece as tolerated Albuterol/ipratropium aerosols every 4 hours with albuterol aerosols every 2 hours as needed for dyspnea Methylprednisolone succinate 40mg IV daily CV: V. tach/V. fib arrest resolved NSTEMI Cardiogenic shock resolved Acute systolic heart failure Atrial fibrillation with RVR [place] mechanical aortic valve (09/21/12 Dr. Gonzalez) s/p Tricuspid annuloplasty s/p cath And PCI -proximal LAD and large diagonal 90% stenosis, 2 BMS stent 02/05, mid LAD vasospasm post PCI Continue aspirin 81 mg daily, Hold clopidogrel starting 02/26 for trach/ PEG and will resume when plt >80 per hematology. amiodarone 400mg TID, carvedilol 3.125mg BID Spironolactone stopped in v/o hyperkalemia on 02/25 Continue atorvastatin 40 mg nightly. Off IABP 02/08/18 [place] 01/23/18no vegetation. Normal aortic mechanical valve with trivial aortic insufficiency. Tricuspid annuloplasty. Mild to moderate LV generalized hypokinesis Echo from 02/05: EF <20%, diffuse hypokinesis, bioprosthetic valve Nephrology Nurse is Romana Bartlett GI: Moderate protein calorie malnutrition with hypoalbuminemia Jevity 1.5 now at goal 50 ml/hr. Reglan 5 mg IV q8 hours. Status post PEG tube placement Lansoprazole for stress ulcer prophylactic Had normal EGD on 10/21/17 FEN/RENAL: Acute kidney injury Hypopotassemia Hypernatremia BPH Monitor renal function, I/O's, creatinine slowly improving. On IVF and off diuretics per nephrology. Renal ultrasound to evaluate for evidence of obstruction -did not show any obstruction Discontinued bumetanide 1mg IV daily , spironolactone 25 mg twice daily stopped on 02/25 due to hyperkalemia and worsening renal function.. 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 difficile colitis PICC removed Discontinued IV vancomycin and gentamicin 02/20. Cefepime IV discontinued on and patient started on aztreonam and Ancef IV. C.diff tx: po vanco 02/11/18. 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 Monitor CBC. Continue holding Plavix and heparin. Hematology consulted for worsening thrombocytopenia. 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 Bleeding from trach resolved with surgicell. Resume argatroban 03/05. RITA pending. 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 Now on argatroban. Protonix for stress ulcer prophylaxis ACCESS: Left IJ central line placed 02/05/18. Now removed and PIV in place. Palliative care is following Level 2 follow-up
[2018-03-06] MEDS: Iron Sucrose Inj 200 MG in Sodium Chlor 0.9% Inj 100 ML IV.SIG SCH (16:00)
[2018-03-06] MEDS: Morphine Inj 4 MG/ML Vial IV.PUSH PRN ×2 (19:57→23:52)
[2018-03-07] MEDS: Oral Hygiene Kit OROPHARYNG SCH ×3 (03:34→15:44)
[2018-03-07] MEDS: Morphine Inj 4 MG/ML Vial IV.PUSH PRN (03:35)
[2018-03-07 03:52] LABS: SSA High Dose 100 IU/mL 0 (2.1-21.7); SSA Low Dose 0.1IU/mL 0 (2.1-21.7); SSA Low Dose 0.5 IU/mL 0 (2.1-21.7); Serotonin Release Result NEGATIVE (NEGATIVE)
[2018-03-07] MEDS: Insulin NovoLOG Aspart Correctional Sugar Inj SQ SCH ×3 (06:10→17:44)
[2018-03-07 07:36] LABS: Calcium 7.2 mg/dL (8.5-10.1); Magnesium 1.4 mg/dL (1.5-2.5); Potassium 4.1 meq/L (3.5-5.1); Total Protein 5.5 g/dL (6.4-8.2)
[2018-03-07] MEDS: Senna/Docusate Sodium 8.6/50 MG Tablet PO SCH ×2 (09:09→20:06)
[2018-03-07] MEDS: Ferrrous Sulfate 300 MG/5 ML UDC PO SCH (09:09)
[2018-03-07] MEDS: Beneprotein Powder Packet G-TUBE SCH ×3 (09:09→17:38)
[2018-03-07] MEDS: Chlorhexidine 0.12% Oral Kit 15 ML UDC OROPHARYNG SCH ×2 (09:09→19:59)
[2018-03-07] MEDS: Ascorbic Acid 500 MG Tablet NG/OG SCH (09:09)
[2018-03-07] MEDS: Amiodarone 200 MG Tablet G-TUBE SCH ×2 (09:10→20:04)
[2018-03-07] MEDS: Pregabalin 75 MG Capsule PO SCH ×2 (09:10→20:05)
[2018-03-07] MEDS: Hypromellose 0.3% Opth Gel 10 GM Bottle EACH EYE SCH ×2 (09:10→20:05)
[2018-03-07] MEDS: MethylPREDNISolone Sod Succinate Inj 40 MG/ML Vial IV.PUSH SCH (09:10)
[2018-03-07] MEDS ORDERED: Potassium Phosphate 500 MG Soluble Tablet PO ONE (10:14)
[2018-03-07] MEDS ORDERED: Magnesium Oxide 400 MG Tablet PO ONE (10:14)
--- NOTE | 2018-03-07 11:16 | P.PNNP ---
Subjective Interval history: Remains on vent, unresponsive. Renal function improved. <Munira Finnegan - Last Filed: 03/07/18 11:11> Physical Exam Vital signs: Vital Signs 03/06/18 12:00 03/06/18 12:49 03/06/18 14:00 Temperature 98.4 F Pulse Rate 87 85 Respiratory Rate 18 18 Blood Pressure 94/56 L Pulse Oximetry 100 100 03/06/18 15:54 03/06/18 16:00 03/06/18 16:11 Temperature 98.5 F 98.2 F 97.9 F Pulse Rate 80 81 86 Respiratory Rate 16 18 15 Blood Pressure 98/59 L 97/55 L 95/59 L Pulse Oximetry 100 100 03/06/18 18:00 03/06/18 20:00 03/06/18 20:30 Temperature 98.5 F Pulse Rate 73 81 Respiratory Rate 17 16 Blood Pressure 105/60 Pulse Oximetry 100 100 03/06/18 22:00 03/07/18 00:00 03/07/18 01:36 Temperature 98.4 F Pulse Rate 87 84 Respiratory Rate 18 19 Blood Pressure 106/58 L Pulse Oximetry 100 100 03/07/18 02:00 03/07/18 04:00 03/07/18 04:25 Temperature 98.1 F Pulse Rate 81 77 Respiratory Rate 16 16 Blood Pressure 110/66 Pulse Oximetry 100 100 03/07/18 06:00 03/07/18 08:00 03/07/18 09:58 Temperature 98.2 F Pulse Rate 86 81 Respiratory Rate 16 17 Blood Pressure 103/65 Pulse Oximetry 100 100 03/07/18 10:00 Temperature Pulse Rate 81 Respiratory Rate Blood Pressure Pulse Oximetry Intake & Output 03/06/18 03/07/18 03/07/18 18:59 06:59 18:59 Intake Total 1379 / 1379 2370 / 2370 200 / 200 Output Total 1050 / 1050 1300 / 1300 Balance 329 / 329 1070 / 1070 200 / 200 Weight 66.5 kg Intake: IV 510 / 510 1375 / 1375 200 / 200 Azactam Inj 1,000 MG In NS Inj 200 / 200 200 / 200 100 / 100 100 ML @ 200 mls/hr IV.SIG Q6H [facility] Rx#:[id number] Diflucan 200 mg Premix Bag 100 100 / 100 ML @ 100 mls/hr IV.SIG Q24H [facility] Rx#:[id number] Venofer Inj 200 MG In NS Inj 110 / 110 100 ML @ 110 mls/hr IV.SIG Q24H [facility] Rx#:[id number] Ancef Inj 1,000 MG In NS Inj 200 / 200 100 / 100 100 ML @ 200 mls/hr IV.SIG Q12H [facility] Rx#:[id number] Tube Feeding 469 / 469 645 / 645 Water Bolus Amount 350 / 350 Intake (Blood Product) Amt 400 / 400 Rbc As-3 Leukoreduced Unit 400 / 400 [id number] Output: Urine 1000 / 1000 Stool 50 / 50 300 / 300 Urine Amount (Catheter) 1000 / 1000 Indwelling Urethral Catheter 1000 / 1000 Other: Date of Last Bowel Movement 03/05/18 03/07/18 03/05/18 - Constitutional cachectic, chronically ill appearing - Routine HEENT Exam Head: Present: normocephalic - Routine Neck Exam Present: supple, full ROM - Routine Respiratory Exam Present: accessory muscle use, patient mechanically ventilated - Routine Cardiovascular Exam Present: RRR, S1, S2 - Routine Abdominal Exam Present: soft, normoactive bowel sounds Comments: PEG - Routine Neurological Exam unresponsive on the vent - Detailed Neurological Exam: Coma Scale Eye Opening: None Verbal Response: None Motor Response: Localizing Janee Coma Scale Total: 7 - Routine Psychiatric Exam Present: unable to assess - Urinary Catheter Management Condom Cath placed during this visit: yes Urethral indwelling: Yes Reason for continuing: Acute urinary retention Insertion date: 02/24/18 Indwelling Urethral Catheter Cath placed during this visit: yes Reason for continuing: Acute urinary retention Insertion date: 02/24/18 Indwelling Temp Sensing Catheter Cath placed during this visit: yes, but has since been removed by the nurse Reason for continuing: Acute urinary retention Insertion date: 02/12/18 Insertion time: 20:15 Removal date: 02/20/18 Removal time: 16:00 <Munira Finnegan - Last Filed: 03/07/18 11:11> Vital signs: Vital Signs 03/06/18 18:00 03/06/18 20:00 03/06/18 20:30 Temperature 98.5 F Pulse Rate 73 81 Respiratory Rate 17 16 Blood Pressure 105/60 Pulse Oximetry 100 100 03/06/18 22:00 03/07/18 00:00 03/07/18 01:36 Temperature 98.4 F Pulse Rate 87 84 Respiratory Rate 18 19 Blood Pressure 106/58 L Pulse Oximetry 100 100 03/07/18 02:00 03/07/18 04:00 03/07/18 04:25 Temperature 98.1 F Pulse Rate 81 77 Respiratory Rate 16 16 Blood Pressure 110/66 Pulse Oximetry 100 100 03/07/18 06:00 03/07/18 08:00 03/07/18 09:58 Temperature 98.2 F Pulse Rate 86 81 Respiratory Rate 16 17 Blood Pressure 103/65 Pulse Oximetry 100 100 03/07/18 10:00 03/07/18 12:00 03/07/18 13:00 Temperature 98.2 F Pulse Rate 81 84 Respiratory Rate 16 Blood Pressure 97/62 L Pulse Oximetry 100 95 03/07/18 14:00 03/07/18 16:00 Temperature 98.4 F Pulse Rate 80 81 Respiratory Rate 16 Blood Pressure 105/64 Pulse Oximetry 100 Intake & Output 03/06/18 03/07/18 03/07/18 18:59 06:59 18:59 Intake Total 1379 / 1379 2370 / 2370 910 / 910 Output Total 1050 / 1050 1300 / 1300 Balance 329 / 329 1070 / 1070 910 / 910 Weight 66.5 kg Intake: IV 510 / 510 1375 / 1375 910 / 910 Novastan Inj 250 MG In NS Inj 250 / 250 247.5 ML @ 2 MCG/KG/MIN 7.56 mls/hr IV.CONT TITRATE PRN Rx#: [id number] Azactam Inj 1,000 MG In NS Inj 200 / 200 200 / 200 200 / 200 100 ML @ 200 mls/hr IV.SIG Q6H [facility] Rx#:[id number] Diflucan 200 mg Premix Bag 100 100 / 100 ML @ 100 mls/hr IV.SIG Q24H [facility] Rx#:[id number] Venofer Inj 200 MG In NS Inj 110 / 110 110 / 110 100 ML @ 110 mls/hr IV.SIG Q24H [facility] Rx#:[id number] Ancef Inj 1,000 MG In NS Inj 200 / 200 100 / 100 100 ML @ 200 mls/hr IV.SIG Q12H [facility] Rx#:[id number] Tube Feeding 469 / 469 645 / 645 Water Bolus Amount 350 / 350 Intake (Blood Product) Amt 400 / 400 Rbc As-3 Leukoreduced Unit 400 / 400 [id number] Output: Urine 1000 / 1000 Stool 50 / 50 300 / 300 Urine Amount (Catheter) 1000 / 1000 Indwelling Urethral Catheter 1000 / 1000 Other: Date of Last Bowel Movement 03/05/18 03/07/18 03/05/18 - Urinary Catheter Management Condom Cath placed during this visit: yes Urethral indwelling: Yes Reason for continuing: Acute urinary retention Insertion date: 02/24/18 Indwelling Urethral Catheter Cath placed during this visit: yes, but has since been removed by the nurse Reason for continuing: Not indwelling catheter Insertion date: 02/24/18 Removal date: 03/07/18 Removal time: 12:00 Indwelling Temp Sensing Catheter Cath placed during this visit: yes, but has since been removed by the nurse Reason for continuing: Acute urinary retention Insertion date: 02/12/18 Insertion time: 20:15 Removal date: 02/20/18 Removal time: 16:00 Straight Cath placed during this visit: yes Reason for continuing: Not indwelling catheter Insertion date: 03/07/18 Insertion time: 17:30 <Evangelist Ashley - Last Filed: 03/07/18 17:51> Assessment and Plan - Assessment (1) Acute kidney injury Code(s): N17.9 - Acute kidney failure, unspecified Status: Acute Plan: Baseline 0.9-1.2. SHARON was due to overdiuresis and dehydration, possibly infection. Renal function has improved. Low EF, off IVF. Repeat labs daily. He is non oliguric. Avoid nephrotoxic agents. His prognosis is very poor. He is severely malnourished and at risk for complications. Monitor urine output and renal function. (2) Hyperosmolality and hypernatremia Code(s): E87.0 - Hyperosmolality and hypernatremia Status: Acute Plan: Improved. On free water with tube feeding. (3) Hyperkalemia Code(s): E87.5 - Hyperkalemia Status: Acute Plan: Improved. Intermittent hypokalemia. Replace if needed. (4) Sepsis Code(s): A41.9 - Sepsis, unspecified organism Status: Acute Plan: He is on IV Aztreonam, cefazolin, and fluconazole. Blood cultures negative Urine cultures positive. Continue supportive care. (5) Heart valve replaced by other means Code(s): Z95.4 - Presence of other heart-valve replacement Status: Acute Plan: Heparin drip off due to +HIT (6) Atrial fibrillation Code(s): I48.91 - Unspecified atrial fibrillation Status: Acute Plan: On amiodarone PO. (7) Anemia Code(s): D64.9 - Anemia, unspecified Status: Acute Plan: Given Venofer Transfused PRBC 03/06. Monitor CBC (8) Thrombocytopenia Code(s): D69.6 - Thrombocytopenia, unspecified Status: Acute Plan: + HIT On argatroban. Transfused platelets 03/03. Heme/onc following. - Plan We will sign off at this time. Please call us if needed. <Munira Finnegan - Last Filed: 03/07/18 11:11> - Assessment (1) Acute kidney injury Code(s): N17.9 - Acute kidney failure, unspecified Status: Acute (2) Hyperosmolality and hypernatremia Code(s): E87.0 - Hyperosmolality and hypernatremia Status: Acute (3) Hyperkalemia Code(s): E87.5 - Hyperkalemia Status: Acute (4) Sepsis Code(s): A41.9 - Sepsis, unspecified organism Status: Acute (5) Heart valve replaced by other means Code(s): Z95.4 - Presence of other heart-valve replacement Status: Acute (6) Atrial fibrillation Code(s): I48.91 - Unspecified atrial fibrillation Status: Acute (7) Anemia Code(s): D64.9 - Anemia, unspecified Status: Acute (8) Thrombocytopenia Code(s): D69.6 - Thrombocytopenia, unspecified Status: Acute - Attending Attestation patient was seen and examined. Agree with above assessment and plan. <Evangelist Ashley - Last Filed: 03/07/18 17:51>
--- NOTE | 2018-03-07 11:46 | P.PNCC ---
Subjective Subjective Remarks/Hospital Course: 62-year-old male with past medical history of [place] mechanical aortic valve (09/21/12 Dr. Gonzalez), on chronic anticoagulation with warfarin, atrial fibrillation postop from AVR , COPD on 2.5 L home O2, stroke in 2015 resulting in left-sided sensory deficits and neuropathy, osteoporosis with chronic low back pain. He was recently admitted to [facility] from 01/23 through 01/31/18 for MSSA bacteremia. It is believed that the original source of infection was a wound on his right index finger when electric drill slipped and created a puncture wound. He was discharged with right upper extremity PICC line receiving cefazolin 2 g IV every 8 hours and gentamicin 210 mg IV daily. He states that home health administered antibiotics at 17:00 and shortly thereafter he began having chills and rigors and sought medical attention at [facility]. He had no rash. Upon arrival, he was hypotensive in the low 80s. He was given 2 L S bolus but remained hypotensive so was started on Levophed. He then developed heart rate in the 140s, reportedly atrial flutter so he was started on Amiodarone drip in [place] and converted to sinus rhythm. He was transfused 2 units PRBC due to Hgb 9.3. His stool was nonbloody nonmelena but was Hemoccult positive. He was given zosyn and vancomycin. Critical care medicine was then contacted and accepted patient for transfer to [facility]. He denies tenderness/redness/drainage at PICC site. Aside from mechanical aortic valve, he has no other hardware or indwelling devices. He denies headache, cough, dysuria. He has had a few loose stools at home, but stools have sometimes been formed. He denies chest pain, does report some SOB. EKG at [place] had marked inferolateral ischemic changes. Obtained EKG upon arrival to [facility] which is improved. SUBJ 02/05: Patient remains critical ill appearing, complaints of chest tightness but denies pain. Remains on 8 mcg/min of Levophed to maintain map about 65. However increasing shortness of breath. Chest x-ray shows increasing pulmonary edema. Troponin was 27.5 currently on IV heparin therapeutic. Cardiology consult is pending at this time. I will stop on maintenance fluids give 40 mg IV Lasix and IV albumin 25 g 1. Patient is very critical patient and updated at the bedside 02/06: to lab rn last night for [facility] with LAD stent complicated by vasospasm of the LAD. IABP placed. patient emergently intubated for acute hypoxic respiratory failure secondary to cardiogenic shock and pulmonary edema. started on milrinone at 0.375 mcg/kg/min and levophed. bumex drip started. remains critically ill. 02/07: Remains critically ill remains on Levophed and milrinone. Currently diuresing well with Bumex drip. IABP in place management per cardiology-good waveform and augmentation. Chest x-ray shows adequate positioning of IABP, diffuse bilateral pulmonary edema 02/08: Remains critical but showing some signs of improvement. Diuresing very well on Bumex infusion. Remains on Levophed and milrinone. IABP one-to-one with good augmentation management per cardiology. Chest x-ray shows improving edema but with persistent bilateral effusions. Will initiate weaning trials if tolerated 02/09: Still remains on pressors, unable to wean Levophed below 2 mcg/min. Milrinone currently on 0.375 mcg/kg/min. IABP removed yesterday. On sedation hold patient wakes up but remains lethargic. Weakly squeezes hand. Urine output excellent on Bumex, 4 L output in 24 hours. Will attempt CPAP today 02/10: Multiple episodes of V. fib V. tach arrest yesterday morning. Successfully resuscitated. Yesterday night had two-minute V. fib arrest return of spontaneous circulation in sinus rhythm after DC cardioversion 1. Currently remains on milrinone and low-dose Levophed. I will try to wean off Levophed introduce low-dose beta-rasheed due to recurrent arrhythmia. Keep potassium more than 4 magnesium more than 2 02/11: Patient still critical and cardiogenic shock requiring Levophed and milrinone. Urine output improved with adding Diamox. Approximately 2 L urine output in 24 hours, creatinine remained stable. Oxygenation slightly improved FiO2 reduced to 70% now. Overall prognosis remains poor family wants to continue aggressive care 02/12: Remains critical but slight improvement in oxygenation. But continues to require Levophed and milrinone the low-dose. Urine output remains adequate. Chest x-ray shows interval improvement. Creatinine remains stable to slightly improved. Add IV albumin to improve blood pressure and to promote diuresis. 02/13 Patient remains intubated and sedated with Versed and fentanyl. Afebrile, off Levophed remains on Milrinone and Heparin drip. 02/14: Hypothermic overnight. Remains on milrinone and heparin drips. Tolerating tube feeds at 20 cc now. Positive BM. No changes neurologically 02/15 Patient remains sedated with Versed and Fentanyl drips, on Milrinone 0.5. 02/16 Patient remains intubated sedated with Versed and Fentanyl infusion. On Milrinone and Heparin drips. CT brain yesterday showed no acute findings. Afebrile. 02/17 Patient remains sedated and intubated. Afebrile, On Milrinone and Heparin drip. 02/18: Remains critical continues to require milrinone. Urine output adequate. Chest x-ray shows bilateral infiltrate effusion. CT chest to better define effusions and infiltrate. Increase Bumex to 1 mg every 8 hours. Patient is persistently weak, will attempt SBT unlikely to be successfully extubated at this time. Most likely will need tracheostomy if family desires aggressive care 02/19: Remains intubated sedated with Versed and fentanyl. Transition to Precedex to facilitate weaning trials. Patient responding slightly more to verbal command, appears to track even though not following commands. Creatinine slightly increased with increased diuresis. Chest x-ray shows improved pleural effusions. CT chest yesterday did not show significant effusion but basilar consolidation. 02/20 Patient was extubated yesterday on 10L simple mask, on Precdex, Heparin and Milrinone drips. Tmax 101.1 yesterday 02/21: Febrile. Currently on 5 L nasal cannula. Continues on heparin drip with 500 units an hour. Received bumetanide 1 mg 1 today. Positive BM 02/22: Remains on 5 L nasal cannula. Remains on heparin drip. No changes neurologically remains medically stable. 02/23: Intubated early this morning secondary to acute respiratory failure. Blood pressure marginal likely due to sedation. Ejection fraction less than 20% . Discussed with at bedside. She was to proceed with tracheostomy in PEG tube placement. We will plan for within the next few days. 02/24: Remains sedated, orally intubated on mechanical ventilation. 02/25: Remains sedated, orally intubated on mechanical ventilation. Worsening renal function noted. Check UA, urine sodium and creatinine. Ordered Kayexalate for hyperkalemia and nephrology consulted. 02/26: Sedated, arousable, orally intubated on mechanical ventilation. Will hold Plavix for planned tracheostomy and PEG tube placement. Remains on heparin for anticoagulation. 02/27: Drowsy, arousable, orally intubated on mechanical ventilation. Awaiting tracheostomy and PEG tube placement. 02/28: Drowsy, arousable, remains orally intubated on mechanical ventilation. PEG tube scheduled for today. 03/01: Drowsy, arousable, remains orally intubated on mechanical ventilation. Underwent PEG tube placement on 02/28. Worsening thrombocytopenia noted and now down to 50,000. Will continue holding Plavix and heparin. Check HIT screen and consult hematology. Awaiting tracheostomy 03/02: Drowsy, arousable, remains orally intubated on mechanical vent relation. Hematology consult noted. 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 03/03: Intubated remains heavily sedated. Was unable to wean off the ventilator , became hypoxemic on CPAP yesterday. 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 Will transfuse 3 packed units of platelets prior to tracheostomy planned for 11 AM today. Platelet count 49,000 03/04 Trached yesterday. Had high residuals earlier today (500 mL) and tube feeds placed on hold. KUB unremarkable. Given reglan, now residual is 10 so resuming tube feeds. On CPAP via trach. Remains sedated on fentanyl and versed, will wean. 03/05 Bleeding at trach site overnight, argatroban was placed on hold. Hgb stable 7.4, platelet count 70k. Surgicell has been ordered but has not yet been applied. Off versed, fentanyl drip still running 50 mcg. He is more alert today , communicates his need to have his mouth suctioned. 03/06: No events over the night. T-max of 98.7. Urine output greater than 4 L over the last 24 hours. Subjective: 03/07: Patient remains afebrile, with a T-max of 98.5. Urine output 2350 mL's over the last 24 hours. No acute events over the night. Patient is currently on CPAP trial 04/21 with respiratory rate in the mid to high teens with tidal volumes 3-400, comfortable. Objective Vital Signs / I&O: Vital Signs 03/06/18 12:00 03/06/18 12:49 03/06/18 14:00 Temperature 98.4 F Pulse Rate 87 85 Respiratory Rate 18 18 Blood Pressure 94/56 L Pulse Oximetry 100 100 03/06/18 15:54 03/06/18 16:00 03/06/18 16:11 Temperature 98.5 F 98.2 F 97.9 F Pulse Rate 80 81 86 Respiratory Rate 16 18 15 Blood Pressure 98/59 L 97/55 L 95/59 L Pulse Oximetry 100 100 03/06/18 18:00 03/06/18 20:00 03/06/18 20:30 Temperature 98.5 F Pulse Rate 73 81 Respiratory Rate 17 16 Blood Pressure 105/60 Pulse Oximetry 100 100 03/06/18 22:00 03/07/18 00:00 03/07/18 01:36 Temperature 98.4 F Pulse Rate 87 84 Respiratory Rate 18 19 Blood Pressure 106/58 L Pulse Oximetry 100 100 03/07/18 02:00 03/07/18 04:00 03/07/18 04:25 Temperature 98.1 F Pulse Rate 81 77 Respiratory Rate 16 16 Blood Pressure 110/66 Pulse Oximetry 100 100 03/07/18 06:00 03/07/18 08:00 03/07/18 09:58 Temperature 98.2 F Pulse Rate 86 81 Respiratory Rate 16 17 Blood Pressure 103/65 Pulse Oximetry 100 100 03/07/18 10:00 Temperature Pulse Rate 81 Respiratory Rate Blood Pressure Pulse Oximetry Intake & Output 03/06/18 03/07/18 03/07/18 18:59 06:59 18:59 Intake Total 1379 / 1379 2370 / 2370 200 / 200 Output Total 1050 / 1050 1300 / 1300 Balance 329 / 329 1070 / 1070 200 / 200 Weight 66.5 kg Intake: IV 510 / 510 1375 / 1375 200 / 200 Azactam Inj 1,000 MG In NS Inj 200 / 200 200 / 200 100 / 100 100 ML @ 200 mls/hr IV.SIG Q6H ADRIEN Rx#:[id number] Diflucan 200 mg Premix Bag 100 100 / 100 ML @ 100 mls/hr IV.SIG Q24H ADRIEN Rx#:[id number] Venofer Inj 200 MG In NS Inj 110 / 110 100 ML @ 110 mls/hr IV.SIG Q24H ADRIEN Rx#:[id number] Ancef Inj 1,000 MG In NS Inj 200 / 200 100 / 100 100 ML @ 200 mls/hr IV.SIG Q12H ADRIEN Rx#:[id number] Tube Feeding 469 / 469 645 / 645 Water Bolus Amount 350 / 350 Intake (Blood Product) Amt 400 / 400 Rbc As-3 Leukoreduced Unit 400 / 400 [id number] Output: Urine 1000 / 1000 Stool 50 / 50 300 / 300 Urine Amount (Catheter) 1000 / 1000 Indwelling Urethral Catheter 1000 / 1000 Other: Date of Last Bowel Movement 03/05/18 03/07/18 03/05/18 Result Diagrams: 03/06/18 06:39 03/07/18 06:36 Objective Remarks: GENERAL: Elderly gentleman, awake, ill-appearing, on vent HEENT: Pupils are equal and reactive, sclera are anicteric. Trach is in place. No neck vein distention. Dry mucous membranes. CARDIOVASCULAR: Regular heart sounds, no murmurs rubs or gallops appreciated. RESPIRATORY: Scattered coarse breath sounds bilateral. No wheezes. Good air entry. GASTROINTESTINAL: Abdomen soft, non-tender, nondistended. PEG in in place. MUSCULOSKELETAL: Extremities with bilateral lower extremity edema. Peripheral pulses are present. NEURO: Trached, awake, following commands. Wiggles toes bilaterally and moves right upper extremity. He remains very weak Assessment and Plan - Assessment and Plan Plan: NEURO/PSYCH: History of stroke in 2015 Neuropathy left upper and lower extremity Chronic low back pain 02/15 CT brain: No acute findings. 02/15 EEG : Encephalopathy, no epileptiform activity MRI brain 02/16: New small focal acute infarction right cerebral vertex and also left cerebral vertex. Neuro has followed. Continue ASA 81 mg daily. Continue pregabalin 150 mg p.o. twice daily. Holding duloxetine 90 mg p.o. daily. RESP: Acute hypoxic respiratory failure -unchanged, on minimal O2 requirement, tolerating CPAP trial COPD on 2.5 L home O2 Prior tobacco abuse Bilateral pleural effusions Perc trach 03/03. On CPAP trial 04/21. T-piece today Albuterol/ipratropium aerosols every 4 hours with albuterol aerosols every 2 hours as needed for dyspnea Patient has been on methylprednisolone succinate 40mg IV daily. Decrease to 20 mg IV daily starting 03/07 CV: V. tach/V. fib arrest -resolved NSTEMI Cardiogenic shock -resolved Acute systolic heart failure Atrial fibrillation with RVR [place] mechanical aortic valve (09/21/12 Dr. Gonzalez) s/p Tricuspid annuloplasty s/p cath And PCI -proximal LAD and large diagonal 90% stenosis, 2 BMS stent 02/05, mid LAD vasospasm post PCI Continue aspirin 81 mg daily, Hold clopidogrel starting 02/26 for trach/ PEG and will resume when plt >80 per hematology. amiodarone 400mg TID, carvedilol 3.125mg BID Spironolactone stopped in v/o hyperkalemia on 02/25 Continue atorvastatin 40 mg nightly. Off IABP 02/08/18 [place] 01/23/18no vegetation. Normal aortic mechanical valve with trivial aortic insufficiency. Tricuspid annuloplasty. Mild to moderate LV generalized hypokinesis Echo from 02/05: EF <20%, diffuse hypokinesis, bioprosthetic valve Veneer Jointer is Romana [facility]lett GI: Moderate protein calorie malnutrition with hypoalbuminemia Jevity 1.5 now at goal 50 ml/hr. Reglan 5 mg IV q8 hours. Status post PEG tube placement Lansoprazole for stress ulcer prophylactic Had normal EGD on 10/21/17 FEN/RENAL: Acute kidney injury -creatinine is improved urine output is appropriate Hypopotassemia Hypernatremia BPH Monitor renal function, I/O's, creatinine slowly improving. On IVF and off diuretics per nephrology. Renal ultrasound to evaluate for evidence of obstruction -did not show any obstruction Discontinued bumetanide 1mg IV daily , spironolactone 25 mg twice daily stopped on 02/25 due to hyperkalemia and worsening renal function.. 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 difficile colitis PICC removed Discontinued IV vancomycin and gentamicin 02/20. Cefepime IV discontinued on and patient started on aztreonam and Ancef IV Currently on aztreonam, cefazolin, fluconazole and p.o. Vanco C.diff tx: po vanco 02/11/18. 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 Hemoglobin this morning is still pending Continue ferrous sulfate 300 milligrams liquid daily. Continue holding Plavix and heparin. Hematology consulted for worsening thrombocytopenia. 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 Bleeding from trach resolved with surgicell. Resumed argatroban 03/05. RITA pending. 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 Now on argatroban. Protonix for stress ulcer prophylaxis ACCESS: Left IJ central line placed 02/05/18. Now removed and PIV in place. Palliative care is following No family present at bedside. Level 2 follow-up
[2018-03-07 11:48] LABS: Baso % (Auto) 0.1 % (0.0-2.0); Eos % (Auto) 0.1 % (0.0-4.0); Hematocrit 25.5 % (39.0-51.0); Hemoglobin 8.4 gm/dL (13.0-17.0); Lymph # (Auto) 0.4 th/mm3 (1.0-4.8); Mean Corpuscular HGB Conc 32.9 % (32.0-36.0); Mean Corpuscular Hemoglobin 31.6 pg (27.0-34.0); Mean Platelet Volume 10.8 fL (7.0-11.0); Mono # (Auto) 0.2 th/mm3 (0.0-0.9); Mono % (Auto) 4.4 % (0.0-8.0); Neut # (Auto) 4.7 th/mm3 (1.8-7.7); Neut % (Auto) 88.4 % (16.0-70.0); Red Blood Count 2.66 mil/mm3 (4.50-5.90); Red Cell Distribution Width 22.5 % (11.6-17.2); White Blood Count 5.3 th/mm3 (4.0-11.0)
--- NOTE | 2018-03-07 12:05 | P.PNONC ---
Subjective Interval history: Afebrile. Patient alert today. He is requesting something by mouth for dry mouth-RN notified. Objective Vital Signs/Intake & Output: Vital Signs 03/06/18 12:00 03/06/18 12:49 03/06/18 14:00 Temperature 98.4 F Pulse Rate 87 85 Respiratory Rate 18 18 Blood Pressure 94/56 L Pulse Oximetry 100 100 03/06/18 15:54 03/06/18 16:00 03/06/18 16:11 Temperature 98.5 F 98.2 F 97.9 F Pulse Rate 80 81 86 Respiratory Rate 16 18 15 Blood Pressure 98/59 L 97/55 L 95/59 L Pulse Oximetry 100 100 03/06/18 18:00 03/06/18 20:00 03/06/18 20:30 Temperature 98.5 F Pulse Rate 73 81 Respiratory Rate 17 16 Blood Pressure 105/60 Pulse Oximetry 100 100 03/06/18 22:00 03/07/18 00:00 03/07/18 01:36 Temperature 98.4 F Pulse Rate 87 84 Respiratory Rate 18 19 Blood Pressure 106/58 L Pulse Oximetry 100 100 03/07/18 02:00 03/07/18 04:00 03/07/18 04:25 Temperature 98.1 F Pulse Rate 81 77 Respiratory Rate 16 16 Blood Pressure 110/66 Pulse Oximetry 100 100 03/07/18 06:00 03/07/18 08:00 03/07/18 09:58 Temperature 98.2 F Pulse Rate 86 81 Respiratory Rate 16 17 Blood Pressure 103/65 Pulse Oximetry 100 100 03/07/18 10:00 Temperature Pulse Rate 81 Respiratory Rate Blood Pressure Pulse Oximetry Intake & Output 03/06/18 03/07/18 03/07/18 18:59 06:59 18:59 Intake Total 1379 / 1379 2370 / 2370 200 / 200 Output Total 1050 / 1050 1300 / 1300 Balance 329 / 329 1070 / 1070 200 / 200 Weight 66.5 kg Intake: IV 510 / 510 1375 / 1375 200 / 200 Azactam Inj 1,000 MG In NS Inj 200 / 200 200 / 200 100 / 100 100 ML @ 200 mls/hr IV.SIG Q6H [facility] Rx#:[id number] Diflucan 200 mg Premix Bag 100 100 / 100 ML @ 100 mls/hr IV.SIG Q24H [facility] Rx#:[id number] Venofer Inj 200 MG In NS Inj 110 / 110 100 ML @ 110 mls/hr IV.SIG Q24H [facility] Rx#:[id number] Ancef Inj 1,000 MG In NS Inj 200 / 200 100 / 100 100 ML @ 200 mls/hr IV.SIG Q12H [facility] Rx#:[id number] Tube Feeding 469 / 469 645 / 645 Water Bolus Amount 350 / 350 Intake (Blood Product) Amt 400 / 400 Rbc As-3 Leukoreduced Unit 400 / 400 [id number] Output: Urine 1000 / 1000 Stool 50 / 50 300 / 300 Urine Amount (Catheter) 1000 / 1000 Indwelling Urethral Catheter 1000 / 1000 Other: Date of Last Bowel Movement 03/05/18 03/07/18 03/05/18 Result Diagrams: 03/07/18 10:32 03/07/18 06:36 Laboratory Results: Laboratory Results - last 24 hr 03/01/18 03/02/18 03/06/18 21:15 15:27 12:26 Sodium Potassium Chloride Carbon Dioxide Anion Gap BUN Creatinine Estimated GFR POC Glucose 164 H Random Glucose Calcium Prot Corrected Calcium Phosphorus Magnesium Erythropoietin 13.4 Total Bilirubin AST ALT Alkaline Phosphatase Total Protein Albumin Serotonin Release Assay Negative RITA UFH Low Dose 0.1 0 RITA UFH Low Dose 0.5 0 RITA UFH High Dose 100 0 Blood Type Blood Type Recheck Antibody Screen MTS Gel Crossmatch 03/06/18 03/06/18 03/06/18 13:02 18:11 23:56 Sodium Potassium Chloride Carbon Dioxide Anion Gap BUN Creatinine Estimated GFR POC Glucose 227 H 220 H Random Glucose Calcium Prot Corrected Calcium Phosphorus Magnesium Erythropoietin Total Bilirubin AST ALT Alkaline Phosphatase Total Protein Albumin Serotonin Release Assay RITA UFH Low Dose 0.1 RITA UFH Low Dose 0.5 RITA UFH High Dose 100 Blood Type O Positive Blood Type Recheck Not needed Antibody Screen Negative MTS Gel Crossmatch See Detail 03/07/18 03/07/18 03/07/18 06:10 06:36 11:43 Sodium 144 Potassium 4.1 Chloride 115 H Carbon Dioxide 20.0 L Anion Gap 9 BUN 40 H Creatinine 1.23 Estimated GFR 59 L POC Glucose 162 H 122 H Random Glucose 177 H Calcium 7.2 L* Prot Corrected Calcium 8.1 L Phosphorus 2.0 L Magnesium 1.4 L Erythropoietin Total Bilirubin 0.3 AST 34 ALT 9 L Alkaline Phosphatase 53 Total Protein 5.5 L D Albumin 2.0 L Serotonin Release Assay RITA UFH Low Dose 0.1 RITA UFH Low Dose 0.5 RITA UFH High Dose 100 Blood Type Blood Type Recheck Antibody Screen MTS Gel Crossmatch Culture Results: Microbiology 02/27/18 02:28 Aerobic Blood Culture - Final Blood - Peripheral No growth in 5 days Anaerobic Blood Culture - Final No growth in 5 days 02/27/18 02:20 Aerobic Blood Culture - Final Blood - Peripheral No growth in 5 days Anaerobic Blood Culture - Final No growth in 5 days Medications: Active Medications Generic Name Dose Route Start Last Admin Trade Name Freq PRN Reason Stop Dose Admin Acetaminophen 650 mg 02/14/18 09:23 02/19/18 15:18 Tylenol Liq PO 650 mg Q6H PRN Administration FEVER Hydrocodone Bitart/Acetaminophen 1 tab 03/05/18 08:11 03/07/18 06:08 Johnson 7.5/325 PO 1 tab Q4H PRN Administration pain 1-10 Albuterol 2.5 mg 02/05/18 00:00 03/06/18 09:49 Albuterol Neb (Prn) NEB 2.5 mg Q2HR NEB PRN Administration SHORTNESS OF BREATH/WHEEZING Amiodarone HCl 400 mg 02/11/18 12:00 03/07/18 09:10 Cordarone G-TUBE 400 mg BID [facility] Administration Artificial Tears 1 drops 02/14/18 21:00 03/07/18 09:10 Genteal Severe Dry Eye Relief 0.3% Opth Gel EACH EYE 1 drops BID [facility] Administration Ascorbic Acid 500 mg 02/15/18 09:00 03/07/18 09:09 Vitamin C NG/OG 500 mg DAILY [facility] Administration Aspirin 81 mg 02/06/18 09:00 03/07/18 09:09 Aspirin Chew PO Not Given DAILY [facility] Atorvastatin Calcium 40 mg 02/05/18 21:00 03/06/18 20:00 Lipitor PO 40 mg HS [facility] Administration Chlorhexidine Gluconate 15 ml 02/06/18 08:00 03/07/18 09:09 Peridex 0.12% Oral Kit OROPHARYNG 15 ml BID@0800,2000 [facility] Administration Clopidogrel Bisulfate 75 mg 02/06/18 09:00 02/25/18 09:13 Plavix PO 75 mg DAILY [facility] Administration Dextrose 50 ml 02/13/18 09:27 03/01/18 06:02 D50w Vial IV.PUSH 50 ml UNSCH PRN Administration PER HYPOGLYCEMIA PROTOCOL Digoxin 250 mcg 02/07/18 09:00 02/11/18 15:41 Lanoxin Inj IV.PUSH Not Given DAILY [facility] Duloxetine HCl 90 mg 02/05/18 09:00 02/11/18 11:18 Cymbalta PO Not Given DAILY [facility] Ferrous Sulfate 300 mg 02/15/18 09:00 03/07/18 09:09 Ferrrous Sulfate Liq PO 300 mg DAILY [facility] Administration Fluconazole 100 mls @ 100 mls/hr 02/27/18 00:00 03/06/18 23:47 Diflucan 200 Mg Premix Bag IV.SIG 100 mls/hr Q24H [facility] Administration Aztreonam 1,000 mg/ Sodium 100 mls @ 200 mls/hr 02/28/18 20:00 03/07/18 09:41 Chloride IV.SIG Infused Q6H [facility] Infusion Cefazolin Sodium 1,000 mg/ 100 mls @ 200 mls/hr 02/28/18 19:00 03/07/18 09:15 Sodium Chloride IV.SIG Infused Q12H [facility] Infusion Argatroban 250 mg/ Sodium 250 mls @ 7.56 mls/hr 03/02/18 15:00 03/06/18 01:52 Chloride IV.CONT 2 mcg/kg/min TITRATE PRN 7.56 mls/hr Per Protocol Administration Protocol 2 MCG/KG/MIN Iron Sucrose 200 mg/ Sodium 110 mls @ 110 mls/hr 03/02/18 16:00 03/06/18 17: 00 Chloride IV.SIG Infused Q24H [facility] Infusion Insulin Aspart 0 unit 02/13/18 12:00 03/07/18 06:10 Novolog Insulin Correctional Sugar Inj SQ 1 unit Q6HR [facility] Administration Protocol Lactulose 30 ml 02/05/18 00:00 02/05/18 08:38 Lactulose Liq PO 30 ml DAILY PRN Administration SEVERE CONSITIPATION Lansoprazole 30 mg 02/15/18 09:00 03/07/18 09:10 Prevacid Solutab NG/OG 30 mg DAILY [facility] Administration Metoclopramide HCl 5 mg 03/04/18 10:00 03/07/18 06:07 Reglan Inj IV.PUSH 5 mg Q8HR [facility] Administration Protocol Morphine Sulfate 4 mg 03/05/18 08:12 03/07/18 03:35 Morphine Inj IV.PUSH 4 mg Q3H PRN Administration breakthrough pain Multivitamins 1 tab 02/05/18 09:00 03/07/18 09:09 Theragran PO 1 tab DAILY [facility] Administration Pregabalin 150 mg 02/04/18 23:50 03/07/18 09:10 Lyrica PO 150 mg BID [facility] Administration Senna/Docusate Sodium 1 tab 02/05/18 09:00 03/07/18 09:09 Linda-Colace PO 1 tab BID [facility] Administration Sodium Chloride 2 ml 02/05/18 09:00 03/07/18 09:11 Ns Flush IV.FLUSH 2 ml BID [facility] Administration Sterile Water 300 ml 03/02/18 18:00 03/07/18 11:38 Free Water G-TUBE 300 ml Q6HR [facility] Administration Vancomycin HCl 500 mg 02/11/18 16:00 03/07/18 11:38 Vancomycin Po G-TUBE 500 mg Q6HR [facility] Administration Whey 1 packet 02/08/18 13:00 03/07/18 09:09 Beneprotein Powder G-TUBE 1 packet TID [facility] Administration Objective Remarks: GENERAL: Chronically ill-appearing older male patient, alert, in no acute distress. SKIN: Warm and dry. HEAD: Normocephalic. EYES: No scleral icterus. No injection or drainage. NECK: Tracheostomy midline. No bleeding/oozing noted. CARDIOVASCULAR: Regular rate and rhythm without murmurs. RESPIRATORY: Scattered rhonchi anteriorly. Patient on 35% FiO2 via trach. GASTROINTESTINAL: Abdomen soft, non-tender, nondistended. EXTREMITIES: No cyanosis MUSCULOSKELETAL: Generalized weakness NEUROLOGICAL: Patient with good eye contact, mouth's "dry" and points to his mouth. Moves right hand/arm, and left foot. Assessment/Plan - Plan 62-year-old male admitted to the hospital in late January for fever and hypotension. He was found to have septic shock. He has C. difficile colitis. Hematology consulted for thrombocytopenia. 1. Status post transfusion of 1 unit of PRBC yesterday. Hemoglobin today 8.4. Patient doing well on argatroban drip. Awaiting stool for occult blood Await RITA negative, however patient tolerating argatroban drip well, given his mechanical valve we will continue this at this time. 2. Monitor CBC, coags and LFTs. 3. Supportive care. - Attending Statement The exam, history, and the medical decision-making described in the above note were completed with the assistance of the mid-level provider. I reviewed and agree with the findings presented. I attest that I had a [id number] encounter with the patient on the same day, and personally performed and documented my assessment and findings in the medical record. pt is on vent. No bleeding noted. Hgb trended up with transfusion. Platelet trended lower. RITA negative and pt has no HIT. However, he needs anticoagulation for the mechanical haert valve, will keep him on argatroban and transition to oral anticoagulant when he is able to tolerate po.
[2018-03-07 12:46] LABS: Platelet Count 59 th/mm3 (150-450)
[2018-03-07] MEDS: Iron Sucrose Inj 200 MG in Sodium Chlor 0.9% Inj 100 ML IV.SIG SCH (15:44)
[2018-03-07] MEDS: Argatroban Inj 250 MG in Sodium Chlor 0.9% Inj 247.5 ML IV.CONT PRN (15:51)
--- NOTE | 2018-03-07 18:47 | P.PNID ---
Subjective Remarks: off the vent' tolerating Tpiece Antibiotics: azactam cefazolin oral vanco fluconazol Allergies/Adverse Reactions: Allergies No Known Allergies Allergy (Verified 02/04/18 18:10) Objective Vital Signs 03/06/18 20:00 03/06/18 20:30 03/06/18 22:00 Temperature 98.5 F Pulse Rate 81 87 Respiratory Rate 17 16 Blood Pressure 105/60 Pulse Oximetry 100 100 03/07/18 00:00 03/07/18 01:36 03/07/18 02:00 Temperature 98.4 F Pulse Rate 84 81 Respiratory Rate 18 19 Blood Pressure 106/58 L Pulse Oximetry 100 100 03/07/18 04:00 03/07/18 04:25 03/07/18 06:00 Temperature 98.1 F Pulse Rate 77 86 Respiratory Rate 16 16 Blood Pressure 110/66 Pulse Oximetry 100 100 03/07/18 08:00 03/07/18 09:58 03/07/18 10:00 Temperature 98.2 F Pulse Rate 81 81 Respiratory Rate 16 17 Blood Pressure 103/65 Pulse Oximetry 100 100 03/07/18 12:00 03/07/18 13:00 03/07/18 14:00 Temperature 98.2 F Pulse Rate 84 80 Respiratory Rate 16 Blood Pressure 97/62 L Pulse Oximetry 100 95 03/07/18 16:00 03/07/18 18:00 Temperature 98.4 F Pulse Rate 81 82 Respiratory Rate 16 Blood Pressure 105/64 Pulse Oximetry 100 Intake & Output 03/06/18 03/07/18 03/07/18 18:59 06:59 18:59 Intake Total 1379 / 1379 2370 / 2370 1911 / 1911 Output Total 1050 / 1050 1300 / 1300 900 / 900 Balance 329 / 329 1070 / 1070 1011 / 1011 Weight 66.5 kg Intake: IV 510 / 510 1375 / 1375 1010 / 1010 Novastan Inj 250 MG In NS Inj 250 / 250 247.5 ML @ 2 MCG/KG/MIN 7.56 mls/hr IV.CONT TITRATE PRN Rx#: [id number] Azactam Inj 1,000 MG In NS Inj 200 / 200 200 / 200 200 / 200 100 ML @ 200 mls/hr IV.SIG Q6H [facility] Rx#:[id number] Diflucan 200 mg Premix Bag 100 100 / 100 ML @ 100 mls/hr IV.SIG Q24H [facility] Rx#:[id number] Venofer Inj 200 MG In NS Inj 110 / 110 110 / 110 100 ML @ 110 mls/hr IV.SIG Q24H [facility] Rx#:[id number] Ancef Inj 1,000 MG In NS Inj 200 / 200 200 / 200 100 ML @ 200 mls/hr IV.SIG Q12H [facility] Rx#:[id number] Tube Feeding 469 / 469 645 / 645 901 / 901 Water Bolus Amount 350 / 350 Intake (Blood Product) Amt 400 / 400 Rbc As-3 Leukoreduced Unit 400 / 400 [id number] Output: Urine 1000 / 1000 Stool 50 / 50 300 / 300 Urine Amount (Catheter) 1000 / 1000 900 / 900 Indwelling Urethral Catheter 1000 / 1000 250 / 250 Straight 650 / 650 Other: Date of Last Bowel Movement 03/05/18 03/07/18 03/05/18 Lab - Hematology Results 03/06/18 03/07/18 06:39 10:32 WBC 4.9 5.3 RBC 2.05 L 2.66 L Hgb 6.6 L* 8.4 L Hct 19.9 L* 25.5 L MCV 97.0 96.0 MCH 32.2 31.6 MCHC 33.2 32.9 RDW 21.2 H 22.5 H Plt Count 87 L 59 L D MPV 11.0 10.8 Prelim Diff (Auto) Slide review pending Slide review pending Neut % (Auto) 89.7 H 88.4 H Lymph % (Auto) 7.6 L 7.0 L Robeson % (Auto) 2.4 4.4 Eos % (Auto) 0.2 0.1 Baso % (Auto) 0.1 0.1 Neut # (Auto) 4.4 4.7 Lymph # (Auto) 0.4 L 0.4 L Robeson # (Auto) 0.1 0.2 Eos # (Auto) 0.0 0.0 Baso # (Auto) 0.0 0.0 WBC Differential . . Diff Scan Auto diff confirmed Auto diff confirmed Differential Comment . . Platelet Estimate Low L Low L Platelet Morphology Enlarged H Enlarged H Ovalocytes 1+ H Lab - Chemistry Results 03/01/18 03/02/18 03/06/18 21:15 15:27 01:58 Sodium Potassium Chloride Carbon Dioxide Anion Gap BUN Creatinine Estimated GFR POC Glucose 151 H Random Glucose Calcium Prot Corrected Calcium Phosphorus Magnesium Erythropoietin 13.4 Total Bilirubin AST ALT Alkaline Phosphatase Total Protein Albumin Serotonin Release Assay Negative 03/06/18 03/06/18 03/06/18 04:45 12:26 18:11 Sodium 145 Potassium 3.8 Chloride 116 H D Carbon Dioxide 19.2 L Anion Gap 10 BUN 49 H Creatinine 1.40 H Estimated GFR 51 L POC Glucose 164 H 227 H Random Glucose 132 H Calcium 6.8 L* Prot Corrected Calcium 8.3 L Phosphorus Magnesium Erythropoietin Total Bilirubin AST ALT Alkaline Phosphatase Total Protein 4.3 L D Albumin Serotonin Release Assay 03/06/18 03/07/18 03/07/18 23:56 06:10 06:36 Sodium 144 Potassium 4.1 Chloride 115 H Carbon Dioxide 20.0 L Anion Gap 9 BUN 40 H Creatinine 1.23 Estimated GFR 59 L POC Glucose 220 H 162 H Random Glucose 177 H Calcium 7.2 L* Prot Corrected Calcium 8.1 L Phosphorus 2.0 L Magnesium 1.4 L Erythropoietin Total Bilirubin 0.3 AST 34 ALT 9 L Alkaline Phosphatase 53 Total Protein 5.5 L D Albumin 2.0 L Serotonin Release Assay 03/07/18 03/07/18 11:43 17:40 Sodium Potassium Chloride Carbon Dioxide Anion Gap BUN Creatinine Estimated GFR POC Glucose 122 H 176 H Random Glucose Calcium Prot Corrected Calcium Phosphorus Magnesium Erythropoietin Total Bilirubin AST ALT Alkaline Phosphatase Total Protein Albumin Serotonin Release Assay Imaging: ITS Impressions Abdomen/Bladder Ultrasound 02/05/18 00:00 CONCLUSION: 1. No evidence of hydronephrosis. 2. The echogenicity of the kidneys is equal to that of the liver which can be seen with medical renal disease. 3. Simple cyst in right kidney. 4. Suboptimal visualization of the left kidney. 5. Small amount of free fluid along the spleen. This could represent an adjacent pleural effusion. Head CT 02/15/18 12:23 CONCLUSION: 1. Negative CT Head non contrast. . Head MRI 02/16/18 08:28 CONCLUSION: 1. New focus of restricted diffusion high along the right cerebral vertex measuring 8 mm consistent with a new small focal acute infarction. 2. There is a new 5 mm area restricted diffusion high along the left cerebral vertex consistent with a new small focal acute infarction. 3. 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 This area is stable compared to the prior examination. 4. Stable bilateral cortical atrophy and mild chronic white matter changes. 5. Chronic bilateral mastoiditis. Chest CT 02/18/18 00:00 CONCLUSION: 1. Increasing basilar and dependent consolidation in both lungs most characteristic of pneumonia or aspiration. 2. Near complete resolution of previous small effusions. 3. Osteopenia with stable compression deformities in the spine. 4. Previous sternotomy with aortic valve replacement. 5. Right-sided central line, ET tube and NG tube in good position. Abdomen X-Ray 03/04/18 00:00 CONCLUSION: Paucity of bowel gas in the abdomen. Nondilated small air-filled segment of the ascending colon seen. Chest X-Ray 03/04/18 06:00 CONCLUSION: Diffuse increased interstitial markings likely related to edema. Bibasilar areas of consolidation, atelectasis, and/or effusion being worse on the left. Physical Exam: GENERAL: Intubated. On vent cachectic SKIN: Warm and dry. HEAD: Atraumatic. Normocephalic. EYES: Pupils equal and round. No scleral icterus. No injection or drainage. ENT: No nasal bleeding or discharge. Mucous membranes pale NECK: Trach in place site [place] CARDIOVASCULAR: Regular rate and rhythm. + diastolic blowing murmur on aortic valve point 1-2/6 today RESPIRATORY: No accessory muscle use. b/l rales to auscultation. Breath sounds equal bilaterally. GASTROINTESTINAL: Abdomen soft, tight, distended and tender . Hepatic and splenic margins not palpable. liquid brown stool in the dignishield bag : roberson in place with good amount of urine MUSCULOSKELETAL: Extremities without clubbing, cyanosis, or edema. No obvious deformities. warmt o cool to touch feet NEUROLOGICAL: Awake, makes eye contact PSYCHIATRIC:unable to assess Assessment and Plan - Plan Sepsis C.diff ? VAP ; PSAE, KLEb - new infiltrates and difficulty weaning - CT and CXR look worse, though resp status improved with Previous MSSA sepsis with presumed PVE of aortic valve prosthesis, on treatment - tx included vanco+ gent w/o rifampin Acute renal insufficiency, improving slowly GFR CHF EF < 20 % sp PR troponin peaked @ 32 cont vanco + gent as a part of PVE Rx will not add rifampin while on amio 2/2 interaction with amiodarone Rifampin can be added if amiodarone is discontinued ccont cefepime and complete 7-14 days of PNA treatment Worsening leukocytosis, C.diff is likely the source Ileus New stroke worsening renal status: improved after vanco and gent stopped / new sepsis? Fungiuria HIT cont azactam - will likely dc azactam if cont to imptove clinically and radiologically cont ancef cont C.diff tx: po vanco dc fluconazol monitor plts repeat CXR
[2018-03-08] MEDS: Oral Hygiene Kit OROPHARYNG SCH ×4 (00:59→16:03)
[2018-03-08] MEDS: Insulin NovoLOG Aspart Correctional Sugar Inj SQ SCH ×4 (01:00→17:58)
--- NOTE | 2018-03-08 05:29 | XR ---
EXAM DATE: 03/08/2018 5:00 AM EDT AGE/SEX: 62 years / Male INDICATIONS: Shortness of breath. CLINICAL DATA: This is the patient's subsequent encounter. Patient reports that signs and symptoms h ave been present for 1 month and indicates a pain score of Nonresponsive. MEDICAL/SURGICAL HISTORY: . Cardiovascular disease. Sepsis. CABG. [place] [facility] [place] 03/[place]. . FINDINGS: A single AP view of the chest demonstrates worsening bilateral pulmonary infiltrates. This is more pr onounced involving the right lung than the left. Posterior layering bilateral pleural effusions suspe cted. Heart is mildly enlarged. Median sternotomy wires, prosthetic heart valve, and tracheostomy tub e are noted. CONCLUSION: Worsening bilateral pulmonary infiltrates with suspected small bilateral pleural effusions. Electronically signed by: Isidro Mcgraw MD 03/08/2018 5:28 AM EDT
[2018-03-08 06:23] LABS: Baso % (Auto) 0.1 % (0.0-2.0); Eos % (Auto) 0.1 % (0.0-4.0); Hematocrit 24.6 % (39.0-51.0); Hemoglobin 8.2 gm/dL (13.0-17.0); Lymph # (Auto) 0.4 th/mm3 (1.0-4.8); Lymph % (Auto) 8.5 % (9.0-44.0); Mean Corpuscular HGB Conc 33.3 % (32.0-36.0); Mean Corpuscular Hemoglobin 31.9 pg (27.0-34.0); Mean Corpuscular Volume 95.8 fL (80.0-100.0); Mean Platelet Volume 11.6 fL (7.0-11.0); Mono # (Auto) 0.2 th/mm3 (0.0-0.9); Mono % (Auto) 3.6 % (0.0-8.0); Neut # (Auto) 4.3 th/mm3 (1.8-7.7); Neut % (Auto) 87.7 % (16.0-70.0); Platelet Count 64 th/mm3 (150-450); Red Blood Count 2.57 mil/mm3 (4.50-5.90); Red Cell Distribution Width 22.4 % (11.6-17.2)
[2018-03-08 06:41] LABS: Albumin 1.7 g/dL (3.4-5.0); Calcium 7.2 mg/dL (8.5-10.1); Carbon Dioxide 20.1 meq/L (21.0-32.0); Magnesium 1.3 mg/dL (1.5-2.5); Phosphorus 1.8 mg/dL (2.5-4.9); Potassium 3.6 meq/L (3.5-5.1)
[2018-03-08] MEDS ORDERED: Magnesium Sulfate Inj 2 GM in Sodium Chlor 0.9% Inj 96 ML IV.SIG ONE (07:34)
[2018-03-08] MEDS ORDERED: Potassium Phosphate Inj 30 MMOL in Sodium Chlor 0.9% Inj 250 ML IV.SIG ONE (07:35)
[2018-03-08 08:02] LABS: Platelet Morphology Normal (Normal)
--- NOTE | 2018-03-08 09:00 | P.PNCC ---
Subjective Subjective Remarks/Hospital Course: 62-year-old male with past medical history of [place] mechanical aortic valve (09/21/12 Dr. Gonzalez), on chronic anticoagulation with warfarin, atrial fibrillation postop from AVR , COPD on 2.5 L home O2, stroke in 2015 resulting in left-sided sensory deficits and neuropathy, osteoporosis with chronic low back pain. He was recently admitted to [facility] from 01/23 through 01/31/18 for MSSA bacteremia. It is believed that the original source of infection was a wound on his right index finger when electric drill slipped and created a puncture wound. He was discharged with right upper extremity PICC line receiving cefazolin 2 g IV every 8 hours and gentamicin 210 mg IV daily. He states that home health administered antibiotics at 17:00 and shortly thereafter he began having chills and rigors and sought medical attention at [facility]. He had no rash. Upon arrival, he was hypotensive in the low 80s. He was given 2 L S bolus but remained hypotensive so was started on Levophed. He then developed heart rate in the 140s, reportedly atrial flutter so he was started on Amiodarone drip in [place] and converted to sinus rhythm. He was transfused 2 units PRBC due to Hgb 9.3. His stool was nonbloody nonmelena but was Hemoccult positive. He was given zosyn and vancomycin. Critical care medicine was then contacted and accepted patient for transfer to [facility]. He denies tenderness/redness/drainage at PICC site. Aside from mechanical aortic valve, he has no other hardware or indwelling devices. He denies headache, cough, dysuria. He has had a few loose stools at home, but stools have sometimes been formed. He denies chest pain, does report some SOB. EKG at [place] had marked inferolateral ischemic changes. Obtained EKG upon arrival to [facility] which is improved. SUBJ 02/05: Patient remains critical ill appearing, complaints of chest tightness but denies pain. Remains on 8 mcg/min of Levophed to maintain map about 65. However increasing shortness of breath. Chest x-ray shows increasing pulmonary edema. Troponin was 27.5 currently on IV heparin therapeutic. Cardiology consult is pending at this time. I will stop on maintenance fluids give 40 mg IV Lasix and IV albumin 25 g 1. 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 IABP placed. patient emergently intubated for acute hypoxic respiratory failure secondary to cardiogenic shock and pulmonary edema. started on milrinone at 0.375 mcg/kg/min and levophed. bumex drip started. remains critically ill. 02/07: Remains critically ill remains on Levophed and milrinone. Currently diuresing well with Bumex drip. IABP in place management per cardiology-good waveform and augmentation. Chest x-ray shows adequate positioning of IABP, diffuse bilateral pulmonary edema 02/08: Remains critical but showing some signs of improvement. Diuresing very well on Bumex infusion. Remains on Levophed and milrinone. IABP one-to-one with good augmentation management per cardiology. Chest x-ray shows improving edema but with persistent bilateral effusions. Will initiate weaning trials if tolerated 02/09: Still remains on pressors, unable to wean Levophed below 2 mcg/min. Milrinone currently on 0.375 mcg/kg/min. IABP removed yesterday. On sedation hold patient wakes up but remains lethargic. Weakly squeezes hand. Urine output excellent on Bumex, 4 L output in 24 hours. Will attempt CPAP today 02/10: Multiple episodes of V. fib V. tach arrest yesterday morning. Successfully resuscitated. Yesterday night had two-minute V. fib arrest return of spontaneous circulation in sinus rhythm after DC cardioversion 1. Currently remains on milrinone and low-dose Levophed. I will try to wean off Levophed introduce low-dose beta-rasheed due to recurrent arrhythmia. Keep potassium more than 4 magnesium more than 2 02/11: Patient still critical and cardiogenic shock requiring Levophed and milrinone. Urine output improved with adding Diamox. Approximately 2 L urine output in 24 hours, creatinine remained stable. Oxygenation slightly improved FiO2 reduced to 70% now. Overall prognosis remains poor family wants to continue aggressive care 02/12: Remains critical but slight improvement in oxygenation. But continues to require Levophed and milrinone the low-dose. Urine output remains adequate. Chest x-ray shows interval improvement. Creatinine remains stable to slightly improved. Add IV albumin to improve blood pressure and to promote diuresis. 02/13 Patient remains intubated and sedated with Versed and fentanyl. Afebrile, off Levophed remains on Milrinone and Heparin drip. 02/14: Hypothermic overnight. Remains on milrinone and heparin drips. Tolerating tube feeds at 20 cc now. Positive BM. No changes neurologically 02/15 Patient remains sedated with Versed and Fentanyl drips, on Milrinone 0.5. 02/16 Patient remains intubated sedated with Versed and Fentanyl infusion. On Milrinone and Heparin drips. CT brain yesterday showed no acute findings. Afebrile. 02/17 Patient remains sedated and intubated. Afebrile, On Milrinone and Heparin drip. 02/18: Remains critical continues to require milrinone. Urine output adequate. Chest x-ray shows bilateral infiltrate effusion. CT chest to better define effusions and infiltrate. Increase Bumex to 1 mg every 8 hours. Patient is persistently weak, will attempt SBT unlikely to be successfully extubated at this time. Most likely will need tracheostomy if family desires aggressive care 02/19: Remains intubated sedated with Versed and fentanyl. Transition to Precedex to facilitate weaning trials. Patient responding slightly more to verbal command, appears to track even though not following commands. Creatinine slightly increased with increased diuresis. Chest x-ray shows improved pleural effusions. CT chest yesterday did not show significant effusion but basilar consolidation. 02/20 Patient was extubated yesterday on 10L simple mask, on Precdex, Heparin and Milrinone drips. Tmax 101.1 yesterday 02/21: Febrile. Currently on 5 L nasal cannula. Continues on heparin drip with 500 units an hour. Received bumetanide 1 mg 1 today. Positive BM 02/22: Remains on 5 L nasal cannula. Remains on heparin drip. No changes neurologically remains medically stable. 02/23: Intubated early this morning secondary to acute respiratory failure. Blood pressure marginal likely due to sedation. Ejection fraction less than 20% . Discussed with at bedside. She was to proceed with tracheostomy in PEG tube placement. We will plan for within the next few days. 02/24: Remains sedated, orally intubated on mechanical ventilation. 02/25: Remains sedated, orally intubated on mechanical ventilation. Worsening renal function noted. Check UA, urine sodium and creatinine. Ordered Kayexalate for hyperkalemia and nephrology consulted. 02/26: Sedated, arousable, orally intubated on mechanical ventilation. Will hold Plavix for planned tracheostomy and PEG tube placement. Remains on heparin for anticoagulation. 02/27: Drowsy, arousable, orally intubated on mechanical ventilation. Awaiting tracheostomy and PEG tube placement. 02/28: Drowsy, arousable, remains orally intubated on mechanical ventilation. PEG tube scheduled for today. 03/01: Drowsy, arousable, remains orally intubated on mechanical ventilation. Underwent PEG tube placement on 02/28. Worsening thrombocytopenia noted and now down to 50,000. Will continue holding Plavix and heparin. Check HIT screen and consult hematology. Awaiting tracheostomy 03/02: Drowsy, arousable, remains orally intubated on mechanical vent relation. Hematology consult noted. 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 03/03: Intubated remains heavily sedated. Was unable to wean off the ventilator , became hypoxemic on CPAP yesterday. 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 Will transfuse 3 packed units of platelets prior to tracheostomy planned for 11 AM today. Platelet count 49,000 03/04 Trached yesterday. Had high residuals earlier today (500 mL) and tube feeds placed on hold. KUB unremarkable. Given reglan, now residual is 10 so resuming tube feeds. On CPAP via trach. Remains sedated on fentanyl and versed, will wean. 03/05 Bleeding at trach site overnight, argatroban was placed on hold. Hgb stable 7.4, platelet count 70k. Surgicell has been ordered but has not yet been applied. Off versed, fentanyl drip still running 50 mcg. He is more alert today , communicates his need to have his mouth suctioned. 03/06: No events over the night. T-max of 98.7. Urine output greater than 4 L over the last 24 hours. 03/07: Patient remains afebrile, with a T-max of 98.5. Urine output 2350 mL's over the last 24 hours. No acute events over the night. Patient is currently on CPAP trial 04/21 with respiratory rate in the mid to high teens with tidal volumes 3-400, comfortable. Subjective: 03/08: No events over the night. Patient tolerated T piece yesterday and he was placed back on CPAP last night. This morning he is back on T piece. He is easily arousable and following some commands. He is complaining of back pain. T-max of 99.2, urine output of 2450 mL's over the last 24 hours. Objective Vital Signs / I&O: Vital Signs 03/07/18 09:58 03/07/18 10:00 03/07/18 12:00 Temperature 98.2 F Pulse Rate 81 84 Respiratory Rate 17 16 Blood Pressure 97/62 L Pulse Oximetry 100 100 03/07/18 13:00 03/07/18 14:00 03/07/18 14:30 Temperature Pulse Rate 80 84 Respiratory Rate 20 Blood Pressure 97/60 L Pulse Oximetry 95 93 L 03/07/18 14:45 03/07/18 15:00 03/07/18 15:15 Temperature Pulse Rate 80 88 81 Respiratory Rate 18 19 17 Blood Pressure 98/59 L 102/65 100/60 Pulse Oximetry 93 L 94 L 95 03/07/18 15:30 03/07/18 15:45 03/07/18 16:00 Temperature 98.4 F Pulse Rate 80 75 81 Respiratory Rate 18 19 20 Blood Pressure 102/60 96/56 L 97/59 L Pulse Oximetry 94 L 94 L 95 03/07/18 16:15 03/07/18 16:30 03/07/18 16:45 Temperature Pulse Rate 87 84 81 Respiratory Rate 19 17 19 Blood Pressure 101/62 103/65 105/64 Pulse Oximetry 94 L 94 L 94 L 03/07/18 17:00 03/07/18 17:15 03/07/18 17:30 Temperature Pulse Rate 81 82 80 Respiratory Rate 20 20 19 Blood Pressure 106/76 102/67 100/63 Pulse Oximetry 94 L 94 L 95 03/07/18 17:45 03/07/18 18:00 03/07/18 18:15 Temperature Pulse Rate 79 81 83 Respiratory Rate 18 19 20 Blood Pressure 106/67 106/66 110/67 Pulse Oximetry 94 L 94 L 93 L 03/07/18 18:30 03/07/18 18:45 03/07/18 19:00 Temperature Pulse Rate 85 82 86 Respiratory Rate 19 21 19 Blood Pressure 110/68 109/64 112/66 Pulse Oximetry 93 L 93 L 93 L 03/07/18 19:15 03/07/18 19:30 03/07/18 19:45 Temperature Pulse Rate 86 87 86 Respiratory Rate 20 20 23 Blood Pressure 109/68 114/70 116/67 Pulse Oximetry 93 L 92 L 92 L 03/07/18 20:00 03/07/18 20:15 03/07/18 20:30 Temperature 99.2 F Pulse Rate 92 H 87 79 Respiratory Rate 25 H 25 H 21 Blood Pressure 118/73 111/65 111/69 Pulse Oximetry 90 L 90 L 93 L 03/07/18 20:45 03/07/18 21:00 03/07/18 21:15 Temperature Pulse Rate 84 86 87 Respiratory Rate 21 25 H 20 Blood Pressure 108/69 109/71 111/68 Pulse Oximetry 95 98 97 03/07/18 21:30 03/07/18 21:45 03/07/18 22:00 Temperature Pulse Rate 90 89 90 Respiratory Rate 23 27 H 30 H Blood Pressure 111/67 113/68 110/71 Pulse Oximetry 96 95 100 03/07/18 22:15 03/07/18 22:30 03/07/18 22:45 Temperature Pulse Rate 90 83 90 Respiratory Rate 27 H 24 26 H Blood Pressure 107/67 103/63 108/66 Pulse Oximetry 98 97 97 03/07/18 23:00 03/07/18 23:15 03/07/18 23:30 Temperature Pulse Rate 84 82 86 Respiratory Rate 21 20 20 Blood Pressure 97/59 L 99/60 L 100/62 Pulse Oximetry 97 97 98 03/07/18 23:45 03/08/18 00:00 03/08/18 00:15 Temperature 98.4 F Pulse Rate 85 89 91 H Respiratory Rate 20 21 20 Blood Pressure 101/64 100/62 101/60 Pulse Oximetry 98 97 96 03/08/18 00:30 03/08/18 00:45 03/08/18 01:00 Temperature Pulse Rate 87 90 87 Respiratory Rate 18 18 18 Blood Pressure 102/60 100/63 101/62 Pulse Oximetry 96 97 99 03/08/18 01:15 03/08/18 01:30 03/08/18 01:33 Temperature Pulse Rate 87 86 Respiratory Rate 20 21 17 Blood Pressure 103/64 102/62 Pulse Oximetry 98 97 98 03/08/18 01:45 03/08/18 02:00 03/08/18 02:15 Temperature Pulse Rate 84 84 85 Respiratory Rate 19 18 18 Blood Pressure 101/58 L 98/57 L 98/59 L Pulse Oximetry 97 97 98 03/08/18 02:30 03/08/18 02:45 03/08/18 03:00 Temperature Pulse Rate 84 86 83 Respiratory Rate 18 19 19 Blood Pressure 100/59 L 101/62 102/61 Pulse Oximetry 97 96 97 03/08/18 03:15 03/08/18 03:30 03/08/18 03:45 Temperature Pulse Rate 84 89 85 Respiratory Rate 19 21 20 Blood Pressure 100/62 97/60 L 103/63 Pulse Oximetry 97 96 97 03/08/18 04:00 03/08/18 04:15 03/08/18 04:30 Temperature 98.9 F Pulse Rate 85 87 85 Respiratory Rate 19 21 19 Blood Pressure 100/61 98/59 L 98/57 L Pulse Oximetry 96 96 97 03/08/18 04:35 03/08/18 04:45 03/08/18 05:00 Temperature Pulse Rate 86 88 Respiratory Rate 17 34 H 24 Blood Pressure 110/64 110/65 Pulse Oximetry 98 97 97 03/08/18 05:15 03/08/18 05:30 03/08/18 05:45 Temperature Pulse Rate 87 84 86 Respiratory Rate 25 H 23 21 Blood Pressure 106/66 108/65 110/67 Pulse Oximetry 100 95 95 03/08/18 06:00 03/08/18 06:15 03/08/18 06:30 Temperature Pulse Rate 82 84 85 Respiratory Rate 22 22 22 Blood Pressure 109/65 105/63 106/64 Pulse Oximetry 97 96 97 03/08/18 08:10 Temperature Pulse Rate Respiratory Rate Blood Pressure Pulse Oximetry 93 L Intake & Output 03/07/18 03/08/18 03/08/18 18:59 06:59 18:59 Intake Total 1911 / 1911 1382 / 1382 Output Total 900 / 900 1550 / 1550 Balance 1011 / 1011 -168 / -168 Weight 66.5 kg Intake: IV 1010 / 1010 200 / 200 Novastan Inj 250 MG In NS Inj 250 / 250 247.5 ML @ 2 MCG/KG/MIN 7.56 mls/hr IV.CONT TITRATE PRN Rx#: [id number] Azactam Inj 1,000 MG In NS Inj 200 / 200 200 / 200 100 ML @ 200 mls/hr IV.SIG Q6H ADRIEN Rx#:[id number] Venofer Inj 200 MG In NS Inj 110 / 110 100 ML @ 110 mls/hr IV.SIG Q24H ADRIEN Rx#:[id number] Ancef Inj 1,000 MG In NS Inj 200 / 200 100 ML @ 200 mls/hr IV.SIG Q12H ADRIEN Rx#:[id number] Tube Feeding 901 / 901 582 / 582 Water Bolus Amount 600 / 600 Output: Stool 250 / 250 Urine Amount (Catheter) 900 / 900 1300 / 1300 Indwelling Urethral Catheter 250 / 250 Straight 650 / 650 1300 / 1300 Other: Date of Last Bowel Movement 03/05/18 Result Diagrams: 03/08/18 04:25 03/08/18 04:25 Objective Remarks: GENERAL: Elderly gentleman, awake, ill-appearing, on vent. HEENT: Pupils equal and reactive, sclera anicteric. Trach in place, no surrounding blood. No JVD. Dry mucous membranes. CARDIOVASCULAR: Regular S1 and S2, no murmurs rubs or gallops appreciated. RESPIRATORY: Minimal scattered coarse breath sounds bilateral. No wheezes. Good air entry. GASTROINTESTINAL: Abdomen is soft, not distended, non-tender, bowel sounds are present. PEG in in place. MUSCULOSKELETAL: Extremities with bilateral trace lower extremity edema. Peripheral pulses are present. Warm and well-perfused. NEURO: Awake, following commands. Wiggles toes bilaterally and moves right upper extremity. He remains very weak. Assessment and Plan - Assessment and Plan Plan: NEURO/PSYCH: History of stroke in 2015 Neuropathy left upper and lower extremity Chronic low back pain Continue ASA 81 mg daily. Continue pregabalin 150 mg p.o. twice daily. Holding duloxetine 90 mg p.o. daily. 02/15 CT brain: No acute findings. 02/15 EEG : Encephalopathy, no epileptiform activity MRI brain 02/16: New small focal acute infarction right cerebral vertex and also left cerebral vertex. Neuro has followed. RESP: Acute hypoxic respiratory failure -unchanged, on minimal O2 requirement, tolerating T piece COPD on 2.5 L home O2 Prior tobacco abuse Bilateral pleural effusions Perc trach 8/17. T-piece during daytime and CPAP at night as tolerated Albuterol/ipratropium aerosols every 4 hours with albuterol aerosols every 2 hours as needed for dyspnea Patient has been on methylprednisolone succinate 40mg IV daily. Decreased to 20 mg IV daily starting 03/07 CV: V. tach/V. fib arrest -resolved NSTEMI Cardiogenic shock -resolved Acute systolic heart failure Atrial fibrillation with RVR [place] mechanical aortic valve (09/21/12 Dr. Gonzalez) s/p Tricuspid annuloplasty On amiodarone 400mg TID, carvedilol 3.125mg BID Continue aspirin 81 mg daily Clopidogrel is on hold since for trach and PEG and will resume when plt >80 per hematology Continue atorvastatin 40 mg nightly. Spironolactone stopped in v/o hyperkalemia on 02/25 s/p cath And PCI -proximal LAD and large diagonal 90% stenosis, 2 BMS stent 02/05, mid LAD vasospasm post PCI Off IABP 02/08/18 [place] 01/23/18no vegetation. Normal aortic mechanical valve with trivial aortic insufficiency. Tricuspid annuloplasty. Mild to moderate LV generalized hypokinesis Echo from 02/05: EF <20%, diffuse hypokinesis, bioprosthetic valve Computer Assistant is Romana Bartlett GI: Moderate protein calorie malnutrition with hypoalbuminemia Jevity 1.5 now at goal 50 ml/hr. Reglan 5 mg IV q8 hours. Status post PEG tube placement Lansoprazole for stress ulcer prophylactic Had normal EGD on 10/21/17 FEN/RENAL: Acute kidney injury -creatinine is improved urine output is appropriate Hypopotassemia Hypernatremia BPH Hypomagnesemia Hypo-phosphatemia Monitor renal function, I/O's, creatinine slowly improving. On IVF and off diuretics per nephrology. Renal ultrasound to evaluate for evidence of obstruction -did not show any obstruction Discontinued bumetanide 1mg IV daily , spironolactone 25 mg twice daily stopped on 02/25 due to hyperkalemia and worsening renal function.. 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 difficile colitis Funguria Discontinued IV vancomycin and gentamicin 02/20. Cefepime IV discontinued on and patient started on aztreonam and Ancef IV Currently on aztreonam, cefazolin, p.o. Vanco Fluconazole was discontinued by ID on 03/07 C.diff tx: po vanco 02/11/18. 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 Hemoglobin this morning is still pending Continue ferrous sulfate 300 milligrams liquid daily. Continue holding Plavix and heparin. Hematology consulted for worsening thrombocytopenia. 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 Bleeding from trach resolved with surgicell. Resumed argatroban 03/05. RITA pending. 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 Now on argatroban. Protonix for stress ulcer prophylaxis ACCESS: Left IJ central line placed 02/05/18. Now removed and PIV in place. Palliative care is following No family present at bedside. I discussed patient's condition yesterday in detail with at bedside. Level 2 follow-up
[2018-03-08] MEDS: Hypromellose 0.3% Opth Gel 10 GM Bottle EACH EYE SCH ×2 (09:02→20:45)
[2018-03-08] MEDS: Ferrrous Sulfate 300 MG/5 ML UDC PO SCH (09:03)
[2018-03-08] MEDS: Amiodarone 200 MG Tablet G-TUBE SCH ×2 (09:04→20:44)
[2018-03-08] MEDS: Senna/Docusate Sodium 8.6/50 MG Tablet PO SCH ×2 (09:05→20:44)
[2018-03-08] MEDS: Beneprotein Powder Packet G-TUBE SCH ×3 (09:05→17:24)
[2018-03-08] MEDS: MethylPREDNISolone Sod Succinate Inj 40 MG/ML Vial IV.PUSH SCH (09:05)
[2018-03-08] MEDS: Ascorbic Acid 500 MG Tablet NG/OG SCH (09:05)
[2018-03-08] MEDS: Pregabalin 75 MG Capsule PO SCH ×2 (09:05→20:44)
[2018-03-08] MEDS: Chlorhexidine 0.12% Oral Kit 15 ML UDC OROPHARYNG SCH ×2 (09:06→20:44)
--- NOTE | 2018-03-08 12:06 | P.PNONC ---
Subjective Interval history: Patient in upright bed position, appears to be sleeping with eyes open, patient does make eye contact when spoken to, however is not answering questions. More lethargic than yesterday. Remains on CPAP via trach. No obvious bleeding noted. Continues on her Argatroban. Objective Vital Signs/Intake & Output: Vital Signs 03/07/18 13:00 03/07/18 14:00 03/07/18 14:30 Temperature Pulse Rate 80 84 Respiratory Rate 20 Blood Pressure 97/60 L Pulse Oximetry 95 93 L 03/07/18 14:45 03/07/18 15:00 03/07/18 15:15 Temperature Pulse Rate 80 88 81 Respiratory Rate 18 19 17 Blood Pressure 98/59 L 102/65 100/60 Pulse Oximetry 93 L 94 L 95 03/07/18 15:30 03/07/18 15:45 03/07/18 16:00 Temperature 98.4 F Pulse Rate 80 75 81 Respiratory Rate 18 19 20 Blood Pressure 102/60 96/56 L 97/59 L Pulse Oximetry 94 L 94 L 95 03/07/18 16:15 03/07/18 16:30 03/07/18 16:45 Temperature Pulse Rate 87 84 81 Respiratory Rate 19 17 19 Blood Pressure 101/62 103/65 105/64 Pulse Oximetry 94 L 94 L 94 L 03/07/18 17:00 03/07/18 17:15 03/07/18 17:30 Temperature Pulse Rate 81 82 80 Respiratory Rate 20 20 19 Blood Pressure 106/76 102/67 100/63 Pulse Oximetry 94 L 94 L 95 03/07/18 17:45 03/07/18 18:00 03/07/18 18:15 Temperature Pulse Rate 79 81 83 Respiratory Rate 18 19 20 Blood Pressure 106/67 106/66 110/67 Pulse Oximetry 94 L 94 L 93 L 03/07/18 18:30 03/07/18 18:45 03/07/18 19:00 Temperature Pulse Rate 85 82 86 Respiratory Rate 19 21 19 Blood Pressure 110/68 109/64 112/66 Pulse Oximetry 93 L 93 L 93 L 03/07/18 19:15 03/07/18 19:30 03/07/18 19:45 Temperature Pulse Rate 86 87 86 Respiratory Rate 20 20 23 Blood Pressure 109/68 114/70 116/67 Pulse Oximetry 93 L 92 L 92 L 03/07/18 20:00 03/07/18 20:15 03/07/18 20:30 Temperature 99.2 F Pulse Rate 92 H 87 79 Respiratory Rate 25 H 25 H 21 Blood Pressure 118/73 111/65 111/69 Pulse Oximetry 90 L 90 L 93 L 03/07/18 20:45 03/07/18 21:00 03/07/18 21:15 Temperature Pulse Rate 84 86 87 Respiratory Rate 21 25 H 20 Blood Pressure 108/69 109/71 111/68 Pulse Oximetry 95 98 97 03/07/18 21:30 03/07/18 21:45 03/07/18 22:00 Temperature Pulse Rate 90 89 90 Respiratory Rate 23 27 H 30 H Blood Pressure 111/67 113/68 110/71 Pulse Oximetry 96 95 100 03/07/18 22:15 03/07/18 22:30 03/07/18 22:45 Temperature Pulse Rate 90 83 90 Respiratory Rate 27 H 24 26 H Blood Pressure 107/67 103/63 108/66 Pulse Oximetry 98 97 97 03/07/18 23:00 03/07/18 23:15 03/07/18 23:30 Temperature Pulse Rate 84 82 86 Respiratory Rate 21 20 20 Blood Pressure 97/59 L 99/60 L 100/62 Pulse Oximetry 97 97 98 03/07/18 23:45 03/08/18 00:00 03/08/18 00:15 Temperature 98.4 F Pulse Rate 85 89 91 H Respiratory Rate 20 21 20 Blood Pressure 101/64 100/62 101/60 Pulse Oximetry 98 97 96 03/08/18 00:30 03/08/18 00:45 03/08/18 01:00 Temperature Pulse Rate 87 90 87 Respiratory Rate 18 18 18 Blood Pressure 102/60 100/63 101/62 Pulse Oximetry 96 97 99 03/08/18 01:15 03/08/18 01:30 03/08/18 01:33 Temperature Pulse Rate 87 86 Respiratory Rate 20 21 17 Blood Pressure 103/64 102/62 Pulse Oximetry 98 97 98 03/08/18 01:45 03/08/18 02:00 03/08/18 02:15 Temperature Pulse Rate 84 84 85 Respiratory Rate 19 18 18 Blood Pressure 101/58 L 98/57 L 98/59 L Pulse Oximetry 97 97 98 03/08/18 02:30 03/08/18 02:45 08/22/18 03:00 Temperature Pulse Rate 84 86 83 Respiratory Rate 18 19 19 Blood Pressure 100/59 L 101/62 102/61 Pulse Oximetry 97 96 97 03/08/18 03:15 03/08/18 03:30 03/08/18 03:45 Temperature Pulse Rate 84 89 85 Respiratory Rate 19 21 20 Blood Pressure 100/62 97/60 L 103/63 Pulse Oximetry 97 96 97 03/08/18 04:00 03/08/18 04:15 03/08/18 04:30 Temperature 98.9 F Pulse Rate 85 87 85 Respiratory Rate 19 21 19 Blood Pressure 100/61 98/59 L 98/57 L Pulse Oximetry 96 96 97 03/08/18 04:35 03/08/18 04:45 03/08/18 05:00 Temperature Pulse Rate 86 88 Respiratory Rate 17 34 H 24 Blood Pressure 110/64 110/65 Pulse Oximetry 98 97 97 03/08/18 05:15 03/08/18 05:30 03/08/18 05:45 Temperature Pulse Rate 87 84 86 Respiratory Rate 25 H 23 21 Blood Pressure 106/66 108/65 110/67 Pulse Oximetry 100 95 95 03/08/18 06:00 03/08/18 06:15 03/08/18 06:30 Temperature Pulse Rate 82 84 85 Respiratory Rate 22 22 22 Blood Pressure 109/65 105/63 106/64 Pulse Oximetry 97 96 97 03/08/18 08:00 03/08/18 08:10 03/08/18 10:00 Temperature Pulse Rate 90 86 Respiratory Rate 20 Blood Pressure 111/71 Pulse Oximetry 97 93 L 03/08/18 11:26 Temperature Pulse Rate Respiratory Rate 20 Blood Pressure Pulse Oximetry 95 Intake & Output 03/07/18 03/08/18 03/08/18 18:59 06:59 18:59 Intake Total 1911 / 1911 1382 / 1382 200 / 200 Output Total 900 / 900 1550 / 1550 Balance 1011 / 1011 -168 / -168 200 / 200 Weight 66.5 kg Intake: IV 1010 / 1010 200 / 200 200 / 200 Novastan Inj 250 MG In NS Inj 250 / 250 247.5 ML @ 2 MCG/KG/MIN 7.56 mls/hr IV.CONT TITRATE PRN Rx#: [id number] Azactam Inj 1,000 MG In NS Inj 200 / 200 200 / 200 100 / 100 100 ML @ 200 mls/hr IV.SIG Q6H ADRIEN Rx#:[id number] Venofer Inj 200 MG In NS Inj 110 / 110 100 ML @ 110 mls/hr IV.SIG Q24H ADRIEN Rx#:[id number] Ancef Inj 1,000 MG In NS Inj 200 / 200 100 / 100 100 ML @ 200 mls/hr IV.SIG Q12H ADRIEN Rx#:[id number] Tube Feeding 901 / 901 582 / 582 Water Bolus Amount 600 / 600 Output: Stool 250 / 250 Urine Amount (Catheter) 900 / 900 1300 / 1300 Indwelling Urethral Catheter 250 / 250 Straight 650 / 650 1300 / 1300 Other: Date of Last Bowel Movement 03/05/18 Result Diagrams: 03/08/18 04:25 03/08/18 04:25 Laboratory Results: Laboratory Results - last 24 hr 03/07/18 03/07/18 03/07/18 10:32 13:04 17:40 WBC 5.3 RBC 2.66 L Hgb 8.4 L Hct 25.5 L MCV 96.0 MCH 31.6 MCHC 32.9 RDW 22.5 H Plt Count 59 L D MPV 10.8 Prelim Diff (Auto) Slide review pending Neut % (Auto) 88.4 H Lymph % (Auto) 7.0 L [place] % (Auto) 4.4 Eos % (Auto) 0.1 Baso % (Auto) 0.1 Neut # (Auto) 4.7 Lymph # (Auto) 0.4 L [place] # (Auto) 0.2 Eos # (Auto) 0.0 Baso # (Auto) 0.0 WBC Differential . Diff Scan Auto diff confirmed Differential Comment . Platelet Estimate Low L Platelet Morphology Enlarged H APTT 69.5 H D Sodium Potassium Chloride Carbon Dioxide Anion Gap BUN Creatinine Estimated GFR POC Glucose 176 H Random Glucose Calcium Prot Corrected Calcium Phosphorus Magnesium Total Bilirubin AST ALT Alkaline Phosphatase Total Protein Albumin 03/08/18 03/08/18 03/08/18 00:15 04:25 04:25 WBC 5.0 RBC 2.57 L Hgb 8.2 L Hct 24.6 L MCV 95.8 MCH 31.9 MCHC 33.3 RDW 22.4 H Plt Count 64 L MPV 11.6 H Prelim Diff (Auto) Slide review pending Neut % (Auto) 87.7 H Lymph % (Auto) 8.5 L [place] % (Auto) 3.6 Eos % (Auto) 0.1 Baso % (Auto) 0.1 Neut # (Auto) 4.3 Lymph # (Auto) 0.4 L [place] # (Auto) 0.2 Eos # (Auto) 0.0 Baso # (Auto) 0.0 WBC Differential . Diff Scan Auto diff confirmed Differential Comment . Platelet Estimate Low L Platelet Morphology Normal APTT Sodium 147 H Potassium 3.6 Chloride 115 H Carbon Dioxide 20.1 L Anion Gap 12 BUN 40 H Creatinine 1.05 Estimated GFR 71 L POC Glucose 158 H Random Glucose 118 H Calcium 7.2 L* Prot Corrected Calcium 8.3 L Phosphorus 1.8 L Magnesium 1.3 L Total Bilirubin 0.3 AST 35 ALT 11 L Alkaline Phosphatase 48 Total Protein 5.0 L Albumin 1.7 L 03/08/18 03/08/18 04:25 06:04 WBC RBC Hgb Hct MCV MCH MCHC RDW Plt Count MPV Prelim Diff (Auto) Neut % (Auto) Lymph % (Auto) [place] % (Auto) Eos % (Auto) Baso % (Auto) Neut # (Auto) Lymph # (Auto) [place] # (Auto) Eos # (Auto) Baso # (Auto) WBC Differential Diff Scan Differential Comment Platelet Estimate Platelet Morphology APTT 67.9 H Sodium Potassium Chloride Carbon Dioxide Anion Gap BUN Creatinine Estimated GFR POC Glucose 124 H Random Glucose Calcium Prot Corrected Calcium Phosphorus Magnesium Total Bilirubin AST ALT Alkaline Phosphatase Total Protein Albumin Imaging Studies: Impressions Chest X-Ray 03/08/18 06:00 CONCLUSION: Worsening bilateral pulmonary infiltrates with suspected small bilateral pleural effusions. Medications: Active Medications Generic Name Dose Route Start Last Admin Trade Name Freq PRN Reason Stop Dose Admin Acetaminophen 650 mg 02/14/18 09:23 02/19/18 15:18 Tylenol Liq PO 650 mg Q6H PRN Administration FEVER Hydrocodone Bitart/Acetaminophen 1 tab 03/05/18 08:11 03/08/18 06:05 [place] 7.5/325 PO 1 tab Q4H PRN Administration pain 1-10 Albuterol 2.5 mg 02/05/18 00:00 03/06/18 09:49 Albuterol Neb (Prn) NEB 2.5 mg Q2HR NEB PRN Administration SHORTNESS OF BREATH/WHEEZING Amiodarone HCl 400 mg 02/11/18 12:00 03/08/18 09:04 Cordarone G-TUBE 400 mg BID ADRIEN Administration Artificial Tears 1 drops 02/14/18 21:00 03/08/18 09:02 [place] Severe Dry Eye Relief 0.3% Opth Gel EACH EYE 1 drops BID ADRIEN Administration Ascorbic Acid 500 mg 02/15/18 09:00 03/08/18 09:05 Vitamin C NG/OG 500 mg DAILY ADRIEN Administration Aspirin 81 mg 02/06/18 09:00 03/08/18 09:05 Aspirin Chew PO Not Given DAILY ADRIEN Atorvastatin Calcium 40 mg 02/05/18 21:00 03/07/18 20:05 Lipitor PO 40 mg HS ADRIEN Administration Chlorhexidine Gluconate 15 ml 02/06/18 08:00 03/08/18 09:06 Peridex 0.12% Oral Kit OROPHARYNG 15 ml BID@0800,2000 ADRIEN Administration Clopidogrel Bisulfate 75 mg 02/06/18 09:00 02/25/18 09:13 Plavix PO 75 mg DAILY ADRIEN Administration Dextrose 50 ml 02/13/18 09:27 03/01/18 06:02 D50w Vial IV.PUSH 50 ml UNSCH PRN Administration PER HYPOGLYCEMIA PROTOCOL Digoxin 250 mcg 02/07/18 09:00 02/11/18 15:41 Lanoxin Inj IV.PUSH Not Given DAILY ADRIEN Duloxetine HCl 90 mg 02/05/18 09:00 02/11/18 11:18 Cymbalta PO Not Given DAILY ADRIEN Ferrous Sulfate 300 mg 02/15/18 09:00 03/08/18 09:03 Ferrrous Sulfate Liq PO 300 mg DAILY ADRIEN Administration Aztreonam 1,000 mg/ Sodium 100 mls @ 200 mls/hr 02/28/18 20:00 03/08/18 09:33 Chloride IV.SIG Infused Q6H ADRIEN Infusion Cefazolin Sodium 1,000 mg/ 100 mls @ 200 mls/hr 02/28/18 19:00 03/08/18 07:00 Sodium Chloride IV.SIG Infused Q12H ADRIEN Infusion Argatroban 250 mg/ Sodium 250 mls @ 7.56 mls/hr 03/02/18 15:00 03/07/18 15:51 Chloride IV.CONT 2 mcg/kg/min TITRATE PRN 7.56 mls/hr Per Protocol Administration Protocol 2 MCG/KG/MIN Iron Sucrose 200 mg/ Sodium 110 mls @ 110 mls/hr 03/02/18 16:00 03/07/18 16: 50 Chloride IV.SIG Infused Q24H ADRIEN Infusion Potassium Phosphate 30 mmol/ 260 mls @ 43.333 mls/hr 03/08/18 07:35 03/08/18 10:32 Sodium Chloride IV.SIG 03/08/18 13:34 43.33 mls/hr ONCE ONE Administration Insulin Aspart 0 unit 02/13/18 12:00 03/08/18 06:06 Novolog Insulin Correctional Sugar Inj SQ Not Given Q6HR ADRIEN Protocol Lactulose 30 ml 02/05/18 00:00 02/05/18 08:38 Lactulose Liq PO 30 ml DAILY PRN Administration SEVERE CONSITIPATION Lansoprazole 30 mg 02/15/18 09:00 03/08/18 09:05 Prevacid Solutab NG/OG 30 mg DAILY ADRIEN Administration Methylprednisolone Sodium Succinate 20 mg 03/07/18 11:47 03/08/18 09:05 Solumedrol Inj IV.PUSH 20 mg DAILY ADRIEN Administration Metoclopramide HCl 5 mg 03/04/18 10:00 03/08/18 06:06 Reglan Inj IV.PUSH 5 mg Q8HR ADRIEN Administration Protocol Morphine Sulfate 4 mg 03/05/18 08:12 03/07/18 03:35 Morphine Inj IV.PUSH 4 mg Q3H PRN Administration breakthrough pain Multivitamins 1 tab 02/05/18 09:00 03/08/18 09:05 Theragran PO 1 tab DAILY ADRIEN Administration Pregabalin 150 mg 02/04/18 23:50 03/08/18 09:05 Lyrica PO 150 mg BID ADRIEN Administration Senna/Docusate Sodium 1 tab 02/05/18 09:00 03/08/18 09:05 Linda-Colace PO 1 tab BID ADRIEN Administration Sodium Chloride 2 ml 02/05/18 09:00 03/08/18 09:03 Ns Flush IV.FLUSH 2 ml BID ADRIEN Administration Sterile Water 300 ml 03/02/18 18:00 03/08/18 11:56 Free Water G-TUBE 300 ml Q6HR ADRIEN Administration Vancomycin HCl 500 mg 02/11/18 16:00 03/08/18 11:56 Vancomycin Po G-TUBE 500 mg Q6HR ADRIEN Administration Whey 1 packet 02/08/18 13:00 03/08/18 09:05 Beneprotein Powder G-TUBE 1 packet TID ADRIEN Administration Objective Remarks: GENERAL: Chronically ill-appearing older male patient, lethargic, in no acute distress. SKIN: Warm and dry. HEAD: Normocephalic. EYES: No scleral icterus. No injection or drainage. NECK: Tracheostomy midline. No bleeding/oozing noted. CARDIOVASCULAR: Regular rate and rhythm without murmurs. RESPIRATORY: Anterior breath sounds clear, equal bilaterally. CPAP via trach. GASTROINTESTINAL: Abdomen soft, non-tender, distended. Feeding tube LUQ. EXTREMITIES: No cyanosis, bilateral SCD's and boot supports in place. MUSCULOSKELETAL: Generalized weakness NEUROLOGICAL: Patient with good eye contact, not responding to questions. Assessment/Plan - Plan 62-year-old male admitted to the hospital in late January for fever and hypotension. He was found to have septic shock. He has C. difficile colitis. Hematology consulted for thrombocytopenia. 1. Continue to monitor CBC, hemoglobin 8.2 today. Patient doing well on argatroban drip, no obvious signs of bleeding. Awaiting stool for occult blood. 2. RITA negative, however patient tolerating argatroban drip well, given his mechanical valve we will continue this at this time. 2. Monitor CBC, coags and LFTs. 3. Supportive care. - Attending Statement The exam, history, and the medical decision-making described in the above note were completed with the assistance of the mid-level provider. I reviewed and agree with the findings presented. I attest that I had a [id number] encounter with the patient on the same day, and personally performed and documented my assessment and findings in the medical record. Patient is still lethargic. No report of bleeding. Tolerating her Argatroban well. Platelets stable at 64,000 continue Argatroban until patient able to be transitioned to Coumadin.
[2018-03-08] MEDS: Iron Sucrose Inj 200 MG in Sodium Chlor 0.9% Inj 100 ML IV.SIG SCH (16:03)
[2018-03-08 16:41] LABS: Bilirubin,Urine Negative (Negative); Calcium Oxalate Crystals,Urine Occasional /hpf; Clarity,Urine Hazy (Clear); Color,Urine Yellow (Yellw/Straw); Glucose,Urine (UA) 500 or Greater mg/dL (Negative); Hyaline Casts,Urine 4 /lpf (0-3); Leukocyte Esterase,Urine Negative (Negative); Mucus,Urine Few /lpf (Occasional); Nitrite,Urine Negative (Negative); Specific Gravity,Urine 1.013 (1.002-1.035)
[2018-03-09] MEDS: Insulin NovoLOG Aspart Correctional Sugar Inj SQ SCH ×4 (01:28→17:42)
[2018-03-09] MEDS: Oral Hygiene Kit OROPHARYNG SCH ×4 (01:28→15:34)
[2018-03-09 07:36] LABS: Baso % (Auto) 0.1 % (0.0-2.0); Eos % (Auto) 0.8 % (0.0-4.0); Hematocrit 25.9 % (39.0-51.0); Hemoglobin 8.6 gm/dL (13.0-17.0); Lymph # (Auto) 0.4 th/mm3 (1.0-4.8); Lymph % (Auto) 10.7 % (9.0-44.0); Mean Corpuscular Hemoglobin 32.2 pg (27.0-34.0); Mean Corpuscular Volume 97.4 fL (80.0-100.0); Mean Platelet Volume 11.1 fL (7.0-11.0); Mono # (Auto) 0.1 th/mm3 (0.0-0.9); Mono % (Auto) 3.9 % (0.0-8.0); Neut # (Auto) 2.8 th/mm3 (1.8-7.7); Neut % (Auto) 84.5 % (16.0-70.0); Platelet Count 62 th/mm3 (150-450); Red Blood Count 2.66 mil/mm3 (4.50-5.90); Red Cell Distribution Width 23.5 % (11.6-17.2); White Blood Count 3.4 th/mm3 (4.0-11.0)
[2018-03-09 07:48] LABS: Albumin 1.8 g/dL (3.4-5.0); Calcium 7.2 mg/dL (8.5-10.1); Carbon Dioxide 21.7 meq/L (21.0-32.0); Magnesium 1.7 mg/dL (1.5-2.5); Phosphorus 2.1 mg/dL (2.5-4.9); Potassium 3.7 meq/L (3.5-5.1); Total Protein 5.4 g/dL (6.4-8.2)
[2018-03-09] MEDS: Chlorhexidine 0.12% Oral Kit 15 ML UDC OROPHARYNG SCH (09:07)
--- NOTE | 2018-03-09 09:10 | P.PNCC ---
Subjective Subjective Remarks/Hospital Course: 62-year-old male with past medical history of [place] mechanical aortic valve (09/21/12 Dr. Gonzalez), on chronic anticoagulation with warfarin, atrial fibrillation postop from AVR , COPD on 2.5 L home O2, stroke in 2015 resulting in left-sided sensory deficits and neuropathy, osteoporosis with chronic low back pain. He was recently admitted to [facility] from 01/23 through 01/31/18 for MSSA bacteremia. It is believed that the original source of infection was a wound on his right index finger when electric drill slipped and created a puncture wound. He was discharged with right upper extremity PICC line receiving cefazolin 2 g IV every 8 hours and gentamicin 210 mg IV daily. He states that home health administered antibiotics at 17:00 and shortly thereafter he began having chills and rigors and sought medical attention at [facility]. He had no rash. Upon arrival, he was hypotensive in the low 80s. He was given 2 L S bolus but remained hypotensive so was started on Levophed. He then developed heart rate in the 140s, reportedly atrial flutter so he was started on Amiodarone drip in [place] and converted to sinus rhythm. He was transfused 2 units PRBC due to Hgb 9.3. His stool was nonbloody nonmelena but was Hemoccult positive. He was given zosyn and vancomycin. Critical care medicine was then contacted and accepted patient for transfer to [facility]. He denies tenderness/redness/drainage at PICC site. Aside from mechanical aortic valve, he has no other hardware or indwelling devices. He denies headache, cough, dysuria. He has had a few loose stools at home, but stools have sometimes been formed. He denies chest pain, does report some SOB. EKG at [place] had marked inferolateral ischemic changes. Obtained EKG upon arrival to [facility] which is improved. SUBJ 02/05: Patient remains critical ill appearing, complaints of chest tightness but denies pain. Remains on 8 mcg/min of Levophed to maintain map about 65. However increasing shortness of breath. Chest x-ray shows increasing pulmonary edema. Troponin was 27.5 currently on IV heparin therapeutic. Cardiology consult is pending at this time. I will stop on maintenance fluids give 40 mg IV Lasix and IV albumin 25 g 1. Patient is very critical patient and updated at the bedside 02/06: to laboratory veterinarian last night for [facility] with LAD stent complicated by vasospasm of the LAD. IABP placed. patient emergently intubated for acute hypoxic respiratory failure secondary to cardiogenic shock and pulmonary edema. started on milrinone at 0.375 mcg/kg/min and levophed. bumex drip started. remains critically ill. 02/07: Remains critically ill remains on Levophed and milrinone. Currently diuresing well with Bumex drip. IABP in place management per cardiology-good waveform and augmentation. Chest x-ray shows adequate positioning of IABP, diffuse bilateral pulmonary edema 02/08: Remains critical but showing some signs of improvement. Diuresing very well on Bumex infusion. Remains on Levophed and milrinone. IABP one-to-one with good augmentation management per cardiology. Chest x-ray shows improving edema but with persistent bilateral effusions. Will initiate weaning trials if tolerated 02/09: Still remains on pressors, unable to wean Levophed below 2 mcg/min. Milrinone currently on 0.375 mcg/kg/min. IABP removed yesterday. On sedation hold patient wakes up but remains lethargic. Weakly squeezes hand. Urine output excellent on Bumex, 4 L output in 24 hours. Will attempt CPAP today 02/10: Multiple episodes of V. fib V. tach arrest yesterday morning. Successfully resuscitated. Yesterday night had two-minute V. fib arrest return of spontaneous circulation in sinus rhythm after DC cardioversion 1. Currently remains on milrinone and low-dose Levophed. I will try to wean off Levophed introduce low-dose beta-rasheed due to recurrent arrhythmia. Keep potassium more than 4 magnesium more than 2 02/11: Patient still critical and cardiogenic shock requiring Levophed and milrinone. Urine output improved with adding Diamox. Approximately 2 L urine output in 24 hours, creatinine remained stable. Oxygenation slightly improved FiO2 reduced to 70% now. Overall prognosis remains poor family wants to continue aggressive care 02/12: Remains critical but slight improvement in oxygenation. But continues to require Levophed and milrinone the low-dose. Urine output remains adequate. Chest x-ray shows interval improvement. Creatinine remains stable to slightly improved. Add IV albumin to improve blood pressure and to promote diuresis. 02/13 Patient remains intubated and sedated with Versed and fentanyl. Afebrile, off Levophed remains on Milrinone and Heparin drip. 02/14: Hypothermic overnight. Remains on milrinone and heparin drips. Tolerating tube feeds at 20 cc now. Positive BM. No changes neurologically 02/15 Patient remains sedated with Versed and Fentanyl drips, on Milrinone 0.5. 02/16 Patient remains intubated sedated with Versed and Fentanyl infusion. On Milrinone and Heparin drips. CT brain yesterday showed no acute findings. Afebrile. 02/17 Patient remains sedated and intubated. Afebrile, On Milrinone and Heparin drip. 02/18: Remains critical continues to require milrinone. Urine output adequate. Chest x-ray shows bilateral infiltrate effusion. CT chest to better define effusions and infiltrate. Increase Bumex to 1 mg every 8 hours. Patient is persistently weak, will attempt SBT unlikely to be successfully extubated at this time. Most likely will need tracheostomy if family desires aggressive care 02/19: Remains intubated sedated with Versed and fentanyl. Transition to Precedex to facilitate weaning trials. Patient responding slightly more to verbal command, appears to track even though not following commands. Creatinine slightly increased with increased diuresis. Chest x-ray shows improved pleural effusions. CT chest yesterday did not show significant effusion but basilar consolidation. 02/20 Patient was extubated yesterday on 10L simple mask, on Precdex, Heparin and Milrinone drips. Tmax 101.1 yesterday 02/21: Febrile. Currently on 5 L nasal cannula. Continues on heparin drip with 500 units an hour. Received bumetanide 1 mg 1 today. Positive BM 02/22: Remains on 5 L nasal cannula. Remains on heparin drip. No changes neurologically remains medically stable. 02/23: Intubated early this morning secondary to acute respiratory failure. Blood pressure marginal likely due to sedation. Ejection fraction less than 20% . Discussed with at bedside. She was to proceed with tracheostomy in PEG tube placement. We will plan for within the next few days. 02/24: Remains sedated, orally intubated on mechanical ventilation. 02/25: Remains sedated, orally intubated on mechanical ventilation. Worsening renal function noted. Check UA, urine sodium and creatinine. Ordered Kayexalate for hyperkalemia and nephrology consulted. 02/26: Sedated, arousable, orally intubated on mechanical ventilation. Will hold Plavix for planned tracheostomy and PEG tube placement. Remains on heparin for anticoagulation. 02/27: Drowsy, arousable, orally intubated on mechanical ventilation. Awaiting tracheostomy and PEG tube placement. 02/28: Drowsy, arousable, remains orally intubated on mechanical ventilation. PEG tube scheduled for today. 03/01: Drowsy, arousable, remains orally intubated on mechanical ventilation. Underwent PEG tube placement on 02/28. Worsening thrombocytopenia noted and now down to 50,000. Will continue holding Plavix and heparin. Check HIT screen and consult hematology. Awaiting tracheostomy 03/02: Drowsy, arousable, remains orally intubated on mechanical vent relation. Hematology consult noted. 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 03/03: Intubated remains heavily sedated. Was unable to wean off the ventilator , became hypoxemic on CPAP yesterday. 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 Will transfuse 3 packed units of platelets prior to tracheostomy planned for 11 AM today. Platelet count 49,000 03/04 Trached yesterday. Had high residuals earlier today (500 mL) and tube feeds placed on hold. KUB unremarkable. Given reglan, now residual is 10 so resuming tube feeds. On CPAP via trach. Remains sedated on fentanyl and versed, will wean. 03/05 Bleeding at trach site overnight, argatroban was placed on hold. Hgb stable 7.4, platelet count 70k. Surgicell has been ordered but has not yet been applied. Off versed, fentanyl drip still running 50 mcg. He is more alert today , communicates his need to have his mouth suctioned. 03/06: No events over the night. T-max of 98.7. Urine output greater than 4 L over the last 24 hours. 03/07: Patient remains afebrile, with a T-max of 98.5. Urine output 2350 mL's over the last 24 hours. No acute events over the night. Patient is currently on CPAP trial 04/21 with respiratory rate in the mid to high teens with tidal volumes 3-400, comfortable. 03/08: No events over the night. Patient tolerated T piece yesterday and he was placed back on CPAP last night. This morning he is back on T piece. He is easily arousable and following some commands. He is complaining of back pain. T-max of 99.2, urine output of 2450 mL's over the last 24 hours. Subjective: 03/09: Patient tolerated T piece yesterday and he was placed back on CPAP at night. This morning he is sleeping, easily arousable. No other events over the night. T-max of 99.2. I/O 1100/1000. Still having significant amount of diarrhea. Objective Vital Signs / I&O: Vital Signs 03/08/18 10:00 03/08/18 11:26 03/08/18 12:00 Temperature Pulse Rate 86 89 Respiratory Rate 20 22 Blood Pressure 106/65 Pulse Oximetry 95 96 03/08/18 13:12 03/08/18 14:00 03/08/18 16:00 Temperature 97.8 F Pulse Rate 87 82 Respiratory Rate 18 19 Blood Pressure 96/63 L Pulse Oximetry 91 L 98 03/08/18 16:34 03/08/18 18:00 03/08/18 20:00 Temperature 98.0 F Pulse Rate 76 81 Respiratory Rate 17 15 Blood Pressure 105/70 Pulse Oximetry 96 03/08/18 20:52 03/08/18 22:00 03/08/18 23:35 Temperature Pulse Rate 82 Respiratory Rate 16 14 Blood Pressure Pulse Oximetry 98 96 03/09/18 00:00 03/09/18 02:00 03/09/18 04:00 Temperature 98.2 F 97.7 F Pulse Rate 82 86 89 Respiratory Rate 16 15 Blood Pressure 95/60 L 104/59 L Pulse Oximetry 03/09/18 04:47 03/09/18 06:00 03/09/18 08:10 Temperature Pulse Rate 82 Respiratory Rate 17 17 Blood Pressure Pulse Oximetry 95 99 Intake & Output 03/08/18 03/09/18 03/09/18 18:59 06:59 18:59 Intake Total 1003 / 1003 663 / 663 Output Total 1000 / 1000 1350 / 1350 Balance 3 / -687 / -687 Weight 76 kg Intake: IV 510 / 510 100 / 100 Azactam Inj 1,000 MG In NS Inj 200 / 200 100 / 100 100 ML @ 200 mls/hr IV.SIG Q6H ADRIEN Rx#:[id number] Venofer Inj 200 MG In NS Inj 110 / 110 100 ML @ 110 mls/hr IV.SIG Q24H ADRIEN Rx#:[id number] Ancef Inj 1,000 MG In NS Inj 200 / 200 100 ML @ 200 mls/hr IV.SIG Q12H ADRIEN Rx#:[id number] Tube Feeding 493 / 493 563 / 563 Output: Stool 200 / 200 400 / 400 Urine Amount (Catheter) 800 / 800 950 / 950 Indwelling Urethral Catheter 800 / 800 950 / 950 Result Diagrams: 03/09/18 06:17 03/09/18 06:17 Objective Remarks: GENERAL: Elderly gentleman, sleeping, easily arousable, ill-appearing, on vent. HEENT: Pupils are equal and reactive, sclera are anicteric. Trach in place. Neck veins are not distended. Dry mucous membranes. CARDIOVASCULAR: Regular heart sounds, no murmurs appreciated. RESPIRATORY: Minimal scattered coarse breath sounds bilateral. No wheezes. Good air entry. GASTROINTESTINAL: Abdomen soft, nontender, not distended, bowel sounds are present. PEG in in place. MUSCULOSKELETAL: Extremities with bilateral trace lower extremity edema. Peripheral pulses are present. Tepid. NEURO: Sleeping but easily arousable, following commands. Wiggles toes bilaterally and moves right upper extremity. He remains very weak. Assessment and Plan - Assessment and Plan Plan: NEURO/PSYCH: History of stroke in 2015 Neuropathy left upper and lower extremity Chronic low back pain Continue ASA 81 mg daily. Continue pregabalin 150 mg p.o. twice daily. Holding duloxetine 90 mg p.o. daily. 02/15 CT brain: No acute findings. 02/15 EEG : Encephalopathy, no epileptiform activity MRI brain 02/16: New small focal acute infarction right cerebral vertex and also left cerebral vertex. Neuro has followed. RESP: Acute hypoxic respiratory failure -unchanged, on minimal O2 requirements, tolerating T piece during daytime and CPAP at night COPD on 2.5 L home O2 Prior tobacco abuse Bilateral pleural effusions Perc trach 03/03. T-piece during daytime and CPAP at night as tolerated Albuterol/ipratropium aerosols every 4 hours with albuterol aerosols every 2 hours as needed for dyspnea Patient has been on methylprednisolone succinate 40mg IV daily. Decreased to 20 mg IV daily starting 03/07 -slow taper since he was on steroids for a long time CV: V. tach/V. fib arrest -resolved NSTEMI Cardiogenic shock -resolved Acute systolic heart failure Atrial fibrillation with RVR [place] mechanical aortic valve (09/21/12 Dr. Gonzalez) s/p Tricuspid annuloplasty On amiodarone 400mg BID, carvedilol 3.125mg BID Continue aspirin 81 mg daily Clopidogrel is on hold since 02/26 for trach and PEG and will resume when plt > 80 per hematology Continue atorvastatin 40 mg nightly. Spironolactone stopped in v/o hyperkalemia on 02/25 s/p cath And PCI -proximal LAD and large diagonal 90% stenosis, 2 BMS stent 02/05, mid LAD vasospasm post PCI Off IABP 02/08/18 [place] 01/23/18no vegetation. Normal aortic mechanical valve with trivial aortic insufficiency. Tricuspid annuloplasty. Mild to moderate LV generalized hypokinesis Echo from 02/05: EF <20%, diffuse hypokinesis, bioprosthetic valve [employer] is [facility] GI: Moderate protein calorie malnutrition with hypoalbuminemia Jevity 1.5 now at goal 50 ml/hr. Status post PEG tube placement Lansoprazole for stress ulcer prophylactic Had normal EGD on 10/21/17 FEN/RENAL: Acute kidney injury -creatinine is improved urine output is appropriate Hypopotassemia -resolved Hypernatremia -worsening BPH Hypomagnesemia -improved Hypo-phosphatemia -improved Start D5W at 50 mils per hour Monitor renal function, I/O's, creatinine slowly improving. Renal ultrasound to evaluate for evidence of obstruction -did not show any obstruction Discontinued bumetanide 1mg IV daily , spironolactone 25 mg twice daily stopped on 02/25 due to hyperkalemia and worsening renal function.. 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 difficile colitis -still having diarrhea Funguria Discontinued IV vancomycin and gentamicin 02/20. Cefepime IV discontinued on and patient started on aztreonam and Ancef IV Currently on aztreonam, cefazolin, p.o. Vanco Fluconazole was discontinued by ID on 03/07 C.diff tx: po vanco 02/11/18. 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 Hemoglobin this morning is still pending Continue ferrous sulfate 300 milligrams liquid daily. Continue holding Plavix and heparin. Hematology consulted for worsening thrombocytopenia. 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 Bleeding from trach resolved with surgicell. Resumed argatroban 03/05. RITA pending. 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 Now on argatroban. Protonix for stress ulcer prophylaxis ACCESS: Left IJ central line placed 02/05/18. Now removed and PIV in place. Palliative care is following No family present at bedside. Level 2 follow-up
[2018-03-09] MEDS: Ascorbic Acid 500 MG Tablet NG/OG SCH (09:38)
[2018-03-09] MEDS: Senna/Docusate Sodium 8.6/50 MG Tablet PO SCH ×2 (09:38→20:28)
[2018-03-09] MEDS: Amiodarone 200 MG Tablet G-TUBE SCH ×2 (09:38→20:28)
[2018-03-09] MEDS: MethylPREDNISolone Sod Succinate Inj 40 MG/ML Vial IV.PUSH SCH (09:39)
[2018-03-09] MEDS: Pregabalin 75 MG Capsule PO SCH ×2 (09:39→20:28)
[2018-03-09] MEDS: Ferrrous Sulfate 300 MG/5 ML UDC PO SCH (09:40)
[2018-03-09] MEDS: Beneprotein Powder Packet G-TUBE SCH ×3 (09:40→17:29)
[2018-03-09] MEDS: Hypromellose 0.3% Opth Gel 10 GM Bottle EACH EYE SCH (09:40)
[2018-03-09] MEDS: Dextrose 5% in Water Inj 1,000 ML IV.CONT SCH (10:15)
[2018-03-09] MEDS ORDERED: Potassium Phosphate Inj 15 MMOL in Sodium Chlor 0.9% Inj 150 ML IV.SIG ONE (11:00)
[2018-03-09] MEDS ORDERED: Magnesium Sulfate Inj 2 GM in Sodium Chlor 0.9% Inj 96 ML IV.SIG ONE (11:00)
[2018-03-09] MEDS: Argatroban Inj 250 MG in Sodium Chlor 0.9% Inj 247.5 ML IV.CONT PRN (12:07)
--- NOTE | 2018-03-09 14:58 | P.PNONC ---
Subjective Interval history: Late entry: Patient seen earlier this a.m. Patient lying in bed, awake and alert. Patient attempts to answer questions, unfortunately at times I cannot understand what he is trying to communicate. He does give me a thumbs up with his right hand at times and he shakes his head yes and no. RN is at the bedside we have discussed seeing if the patient is able to write so that he can better communicate, the nurse says they will try this today. I believe the patient stated that he was left-handed and with little to no movement from the left hand this may be more difficult for him. The patient does report back pain, nurse states that they do reposition him frequently. Objective Vital Signs/Intake & Output: Vital Signs 03/08/18 16:00 03/08/18 16:34 03/08/18 18:00 Temperature 97.8 F Pulse Rate 82 76 Respiratory Rate 19 17 Blood Pressure 96/63 L Pulse Oximetry 98 96 03/08/18 20:00 03/08/18 20:52 03/08/18 22:00 Temperature 98.0 F Pulse Rate 81 82 Respiratory Rate 15 16 Blood Pressure 105/70 Pulse Oximetry 98 03/08/18 23:35 03/09/18 00:00 03/09/18 02:00 Temperature 98.2 F Pulse Rate 82 86 Respiratory Rate 14 16 Blood Pressure 95/60 L Pulse Oximetry 96 03/09/18 04:00 03/09/18 04:47 03/09/18 06:00 Temperature 97.7 F Pulse Rate 89 82 Respiratory Rate 15 17 Blood Pressure 104/59 L Pulse Oximetry 95 03/09/18 08:00 03/09/18 08:10 03/09/18 10:00 Temperature 99.1 F Pulse Rate 88 91 H Respiratory Rate 17 17 Blood Pressure 112/65 Pulse Oximetry 99 99 03/09/18 10:15 03/09/18 10:54 03/09/18 12:00 Temperature 99.2 F Pulse Rate 87 Respiratory Rate 27 H 23 Blood Pressure 112/70 Pulse Oximetry 96 93 L 98 03/09/18 14:00 Temperature Pulse Rate 92 H Respiratory Rate Blood Pressure Pulse Oximetry Intake & Output 03/08/18 03/09/18 03/09/18 18:59 06:59 18:59 Intake Total 1003 / 1003 1013 / 1013 100 / 100 Output Total 1000 / 1000 1350 / 1350 Balance 3 / 3 -337 / -337 100 / 100 Weight 76 kg Intake: IV 510 / 510 450 / 450 100 / 100 Novastan Inj 250 MG In NS Inj 250 / 250 247.5 ML @ 2 MCG/KG/MIN 7.56 mls/hr IV.CONT TITRATE PRN Rx#: [id number] Azactam Inj 1,000 MG In NS Inj 200 / 200 200 / 200 100 / 100 100 ML @ 200 mls/hr IV.SIG Q6H ADRIEN Rx#:[id number] Venofer Inj 200 MG In NS Inj 110 / 110 100 ML @ 110 mls/hr IV.SIG Q24H ADRIEN Rx#:[id number] Ancef Inj 1,000 MG In NS Inj 200 / 200 100 ML @ 200 mls/hr IV.SIG Q12H ADRIEN Rx#:[id number] Tube Feeding 493 / 493 563 / 563 Output: Stool 200 / 200 400 / 400 Urine Amount (Catheter) 800 / 800 950 / 950 Indwelling Urethral Catheter 800 / 800 950 / 950 Other: Date of Last Bowel Movement 03/09/18 Result Diagrams: 03/09/18 06:17 03/09/18 06:17 Laboratory Results: Laboratory Results - last 24 hr 03/08/18 03/08/18 03/09/18 15:10 17:38 01:01 WBC RBC Hgb Hct MCV MCH MCHC RDW Plt Count MPV Prelim Diff (Auto) Neut % (Auto) Lymph % (Auto) [place] % (Auto) Eos % (Auto) Baso % (Auto) Neut # (Auto) Lymph # (Auto) [place] # (Auto) Eos # (Auto) Baso # (Auto) WBC Differential Diff Scan Differential Comment Platelet Estimate Platelet Morphology APTT Sodium Potassium Chloride Carbon Dioxide Anion Gap BUN Creatinine Estimated GFR POC Glucose 173 H 143 H Random Glucose Calcium Prot Corrected Calcium Phosphorus Magnesium Total Bilirubin AST ALT Alkaline Phosphatase Total Protein Albumin Urine Color Yellow Urine Clarity Hazy H Urine pH 5.0 Ur Specific [place] 1.013 Urine Protein 30 H Urine Glucose (UA) 500 or greater Urine Ketones Negative Urine Occult Blood Moderate H Urine Nitrate Negative Urine Bilirubin Negative Urine Urobilinogen Less than 2 Ur Leukocyte Esterase Negative Urine RBC 4 H Urine WBC 5 Calcium Oxalate Crystal Occasional H Hyaline Casts 4 Granular Casts 7 Urine Mucus Few H Micro UA Comment Cath-culture not ind Ur Microscopic Review Not Reportable Urine Culture Comments Cath-cult not ind 03/09/18 03/09/18 03/09/18 05:51 06:17 06:17 WBC 3.4 L RBC 2.66 L Hgb 8.6 L Hct 25.9 L MCV 97.4 MCH 32.2 MCHC 33.0 RDW 23.5 H Plt Count 62 L MPV 11.1 H Prelim Diff (Auto) Slide review pending Neut % (Auto) 84.5 H Lymph % (Auto) 10.7 [place] % (Auto) 3.9 Eos % (Auto) 0.8 Baso % (Auto) 0.1 Neut # (Auto) 2.8 Lymph # (Auto) 0.4 L [place] # (Auto) 0.1 Eos # (Auto) 0.0 Baso # (Auto) 0.0 WBC Differential . Diff Scan Auto diff confirmed Differential Comment . Platelet Estimate Low L Platelet Morphology Enlarged H APTT Sodium 149 H Potassium 3.7 Chloride 118 H Carbon Dioxide 21.7 Anion Gap 9 BUN 33 H Creatinine 0.90 Estimated GFR 85 L POC Glucose 97 Random Glucose 89 Calcium 7.2 L* Prot Corrected Calcium 8.1 L Phosphorus 2.1 L Magnesium 1.7 Total Bilirubin 0.3 AST 29 ALT 12 Alkaline Phosphatase 53 Total Protein 5.4 L Albumin 1.8 L Urine Color Urine Clarity Urine pH Ur Specific [place] Urine Protein Urine Glucose (UA) Urine Ketones Urine Occult Blood Urine Nitrate Urine Bilirubin Urine Urobilinogen Ur Leukocyte Esterase Urine RBC Urine WBC Calcium Oxalate Crystal Hyaline Casts Granular Casts Urine Mucus Micro UA Comment Ur Microscopic Review Urine Culture Comments 03/09/18 03/09/18 06:17 12:01 WBC RBC Hgb Hct MCV MCH MCHC RDW Plt Count MPV Prelim Diff (Auto) Neut % (Auto) Lymph % (Auto) [place] % (Auto) Eos % (Auto) Baso % (Auto) Neut # (Auto) Lymph # (Auto) [place] # (Auto) Eos # (Auto) Baso # (Auto) WBC Differential Diff Scan Differential Comment Platelet Estimate Platelet Morphology APTT 38.2 H D Sodium Potassium Chloride Carbon Dioxide Anion Gap BUN Creatinine Estimated GFR POC Glucose 132 H Random Glucose Calcium Prot Corrected Calcium Phosphorus Magnesium Total Bilirubin AST ALT Alkaline Phosphatase Total Protein Albumin Urine Color Urine Clarity Urine pH Ur Specific [place] Urine Protein Urine Glucose (UA) Urine Ketones Urine Occult Blood Urine Nitrate Urine Bilirubin Urine Urobilinogen Ur Leukocyte Esterase Urine RBC Urine WBC Calcium Oxalate Crystal Hyaline Casts Granular Casts Urine Mucus Micro UA Comment Ur Microscopic Review Urine Culture Comments Medications: Active Medications Generic Name Dose Route Start Last Admin Trade Name Freq PRN Reason Stop Dose Admin Acetaminophen 650 mg 02/14/18 09:23 02/19/18 15:18 Tylenol Liq PO 650 mg Q6H PRN Administration FEVER Hydrocodone Bitart/Acetaminophen 1 tab 03/05/18 08:11 03/08/18 12:12 [place] 7.5/325 PO 1 tab Q4H PRN Administration pain 1-10 Albuterol 2.5 mg 02/05/18 00:00 03/06/18 09:49 Albuterol Neb (Prn) NEB 2.5 mg Q2HR NEB PRN Administration SHORTNESS OF BREATH/WHEEZING Amiodarone HCl 400 mg 02/11/18 12:00 03/09/18 09:38 Cordarone G-TUBE 400 mg BID ADRIEN Administration Artificial Tears 1 drops 02/14/18 21:00 03/09/18 09:40 [place] Severe Dry Eye Relief 0.3% Opth Gel EACH EYE 1 drops BID ADRIEN Administration Ascorbic Acid 500 mg 02/15/18 09:00 03/09/18 09:38 Vitamin C NG/OG 500 mg DAILY ADRIEN Administration Aspirin 81 mg 02/06/18 09:00 03/09/18 09:56 Aspirin Chew PO Not Given DAILY ADRIEN Atorvastatin Calcium 40 mg 02/05/18 21:00 03/08/18 20:44 Lipitor PO 40 mg HS ADRIEN Administration Chlorhexidine Gluconate 15 ml 02/06/18 08:00 03/09/18 09:07 Peridex 0.12% Oral Kit OROPHARYNG 15 ml BID@0800,1999 ADRIEN Administration Clopidogrel Bisulfate 75 mg 02/06/18 09:00 02/25/18 09:13 Plavix PO 75 mg DAILY ADRIEN Administration Dextrose 50 ml 02/13/18 09:27 03/01/18 06:02 D50w Vial IV.PUSH 50 ml UNSCH PRN Administration PER HYPOGLYCEMIA PROTOCOL Digoxin 250 mcg 02/07/18 09:00 02/11/18 15:41 Lanoxin Inj IV.PUSH Not Given DAILY ADRIEN Duloxetine HCl 90 mg 02/05/18 09:00 02/11/18 11:18 Cymbalta PO Not Given DAILY ADRIEN Ferrous Sulfate 300 mg 02/15/18 09:00 03/09/18 09:40 Ferrrous Sulfate Liq PO 300 mg DAILY ADRIEN Administration Aztreonam 1,000 mg/ Sodium 100 mls @ 200 mls/hr 02/28/18 20:00 03/09/18 13:31 Chloride IV.SIG 200 mls/hr Q6H ADRIEN Administration Cefazolin Sodium 1,000 mg/ 100 mls @ 200 mls/hr 02/28/18 19:00 03/09/18 09:06 Sodium Chloride IV.SIG 200 mls/hr Q12H ADRIEN Administration Argatroban 250 mg/ Sodium 250 mls @ 7.56 mls/hr 03/02/18 15:00 03/09/18 12:07 Chloride IV.CONT 1.5 mcg/kg/min TITRATE PRN 5.67 mls/hr Per Protocol Administration Protocol 2 MCG/KG/MIN Iron Sucrose 200 mg/ Sodium 110 mls @ 110 mls/hr 03/02/18 16:00 03/08/18 17: 03 Chloride IV.SIG Infused Q24H ADRIEN Infusion Potassium Phosphate 15 mmol/ 155 mls @ 38.75 mls/hr 03/09/18 11:00 03/09/18 12:03 Sodium Chloride IV.SIG 03/09/18 14:59 38.75 mls/hr ONCE ONE Administration Dextrose 1,000 mls @ 42 mls/hr 03/09/18 09:15 03/09/18 10:15 D5w Inj IV.CONT 42 mls/hr .[id number] ADRIEN Administration Insulin Aspart 0 unit 02/13/18 12:00 03/09/18 12:03 Novolog Insulin Correctional Sugar Inj SQ Not Given Q6HR [facility] Protocol Lactulose 30 ml 02/05/18 00:00 02/05/18 08:38 Lactulose Liq PO 30 ml DAILY PRN Administration SEVERE CONSITIPATION Lansoprazole 30 mg 02/15/18 09:00 03/09/18 09:40 Prevacid Solutab NG/OG 30 mg DAILY ADRIEN Administration Methylprednisolone Sodium Succinate 20 mg 03/07/18 11:47 03/09/18 09:39 Solumedrol Inj IV.PUSH 20 mg DAILY ADRIEN Administration Metoclopramide HCl 5 mg 03/04/18 10:00 03/09/18 13:30 Reglan Inj IV.PUSH 03/09/18 23:59 5 mg Q8HR ADRIEN Administration Protocol Morphine Sulfate 4 mg 03/05/18 08:12 03/07/18 03:35 Morphine Inj IV.PUSH 4 mg Q3H PRN Administration breakthrough pain Multivitamins 1 tab 02/05/18 09:00 03/09/18 09:39 Theragran PO 1 tab DAILY ADRIEN Administration Pregabalin 150 mg 02/04/18 23:50 03/09/18 09:39 Lyrica PO 150 mg BID ADRIEN Administration Senna/Docusate Sodium 1 tab 02/05/18 09:00 03/09/18 09:38 Linda-Colace PO 1 tab BID ADRIEN Administration Sodium Chloride 2 ml 02/05/18 09:00 03/09/18 09:40 Ns Flush IV.FLUSH 2 ml BID ADRIEN Administration Sterile Water 300 ml 03/02/18 18:00 03/09/18 12:03 Free Water G-TUBE 300 ml Q6HR ADRIEN Administration Vancomycin HCl 500 mg 02/11/18 16:00 03/09/18 11:59 Vancomycin Po G-TUBE 500 mg Q6HR ADRIEN Administration Whey 1 packet 02/08/18 13:00 03/09/18 12:03 Beneprotein Powder G-TUBE 1 packet TID ADRIEN Administration Objective Remarks: GENERAL: Chronically ill-appearing older male patient, alert, in no acute distress. SKIN: Warm and dry. HEAD: Normocephalic. EYES: No scleral icterus. No injection or drainage. NECK: Tracheostomy midline. No bleeding/oozing noted. CARDIOVASCULAR: Regular rate and rhythm without murmurs. RESPIRATORY: Anterior breath sounds clear, equal bilaterally. CPAP via trach. GASTROINTESTINAL: Abdomen soft, non-tender, distended. Feeding tube LUQ. EXTREMITIES: No cyanosis, bilateral SCD's and boot supports in place. MUSCULOSKELETAL: Generalized weakness NEUROLOGICAL: Patient with good eye contact, answering questions and giving thumbs up with right hand. Assessment/Plan - Plan 62-year-old male admitted to the hospital in late January for fever and hypotension. He was found to have septic shock. He has C. difficile colitis. Hematology consulted for thrombocytopenia. 1. Continue to monitor CBC, hemoglobin continues to improve, platelets stable. Patient doing well on argatroban drip, no obvious signs of bleeding. Awaiting stool for occult blood. 2. Continue argatroban drip until able to transition to Coumadin. Patient with history of mechanical valve. 2. Monitor CBC, coags and LFTs. 3. Supportive care. - Attending Statement The exam, history, and the medical decision-making described in the above note were completed with the assistance of the mid-level provider. I reviewed and agree with the findings presented. I attest that I had a [id number] encounter with the patient on the same day, and personally performed and documented my assessment and findings in the medical record. Patient is tolerating Argatroban well. There is no report of bleeding. His hemoglobin is stable. Platelet count stable around 60,000. He will continue Argatroban until able to transition to Coumadin. Monitor CBC.
[2018-03-09] MEDS: Iron Sucrose Inj 200 MG in Sodium Chlor 0.9% Inj 100 ML IV.SIG SCH (15:34)
[2018-03-10] MEDS: Chlorhexidine 0.12% Oral Kit 15 ML UDC OROPHARYNG SCH ×3 (00:09→21:06)
[2018-03-10] MEDS: Hypromellose 0.3% Opth Gel 10 GM Bottle EACH EYE SCH ×3 (00:10→21:06)
[2018-03-10] MEDS: Oral Hygiene Kit OROPHARYNG SCH ×5 (00:12→23:11)
[2018-03-10] MEDS: Insulin NovoLOG Aspart Correctional Sugar Inj SQ SCH ×5 (00:58→23:17)
[2018-03-10] MEDS: Pregabalin 75 MG Capsule PO SCH ×2 (08:34→21:04)
[2018-03-10] MEDS: Beneprotein Powder Packet G-TUBE SCH ×3 (08:34→17:29)
[2018-03-10] MEDS: Ascorbic Acid 500 MG Tablet NG/OG SCH (08:34)
[2018-03-10] MEDS: Amiodarone 200 MG Tablet G-TUBE SCH ×2 (08:34→21:05)
[2018-03-10] MEDS: Ferrrous Sulfate 300 MG/5 ML UDC PO SCH (08:34)
[2018-03-10] MEDS: Dextrose 5% in Water Inj 1,000 ML IV.CONT SCH (08:36)
[2018-03-10] MEDS: Senna/Docusate Sodium 8.6/50 MG Tablet PO SCH ×2 (08:37→21:06)
[2018-03-10] MEDS: MethylPREDNISolone Sod Succinate Inj 40 MG/ML Vial IV.PUSH SCH (08:37)
--- NOTE | 2018-03-10 10:20 | P.PNCC ---
Subjective Subjective Remarks/Hospital Course: 62-year-old male with past medical history of [place] mechanical aortic valve (09/21/12 Dr. Gonzalez), on chronic anticoagulation with warfarin, atrial fibrillation postop from AVR , COPD on 2.5 L home O2, stroke in 2015 resulting in left-sided sensory deficits and neuropathy, osteoporosis with chronic low back pain. He was recently admitted to [facility] from 01/23 through 01/31/18 for MSSA bacteremia. It is believed that the original source of infection was a wound on his right index finger when electric drill slipped and created a puncture wound. He was discharged with right upper extremity PICC line receiving cefazolin 2 g IV every 8 hours and gentamicin 210 mg IV daily. He states that home health administered antibiotics at 17:00 and shortly thereafter he began having chills and rigors and sought medical attention at [facility]. He had no rash. Upon arrival, he was hypotensive in the low 80s. He was given 2 L S bolus but remained hypotensive so was started on Levophed. He then developed heart rate in the 140s, reportedly atrial flutter so he was started on Amiodarone drip in [place] and converted to sinus rhythm. He was transfused 2 units PRBC due to Hgb 9.3. His stool was nonbloody nonmelena but was Hemoccult positive. He was given zosyn and vancomycin. Critical care medicine was then contacted and accepted patient for transfer to [facility]. He denies tenderness/redness/drainage at PICC site. Aside from mechanical aortic valve, he has no other hardware or indwelling devices. He denies headache, cough, dysuria. He has had a few loose stools at home, but stools have sometimes been formed. He denies chest pain, does report some SOB. EKG at [place] had marked inferolateral ischemic changes. Obtained EKG upon arrival to [facility] which is improved. SUBJ 02/05: Patient remains critical ill appearing, complaints of chest tightness but denies pain. Remains on 8 mcg/min of Levophed to maintain map about 65. However increasing shortness of breath. Chest x-ray shows increasing pulmonary edema. Troponin was 27.5 currently on IV heparin therapeutic. Cardiology consult is pending at this time. I will stop on maintenance fluids give 40 mg IV Lasix and IV albumin 25 g 1. Patient is very critical patient and updated at the bedside 02/06: to slab inspector last night for [facility] with LAD stent complicated by vasospasm of the LAD. IABP placed. patient emergently intubated for acute hypoxic respiratory failure secondary to cardiogenic shock and pulmonary edema. started on milrinone at 0.375 mcg/kg/min and levophed. bumex drip started. remains critically ill. 02/07: Remains critically ill remains on Levophed and milrinone. Currently diuresing well with Bumex drip. IABP in place management per cardiology-good waveform and augmentation. Chest x-ray shows adequate positioning of IABP, diffuse bilateral pulmonary edema 02/08: Remains critical but showing some signs of improvement. Diuresing very well on Bumex infusion. Remains on Levophed and milrinone. IABP one-to-one with good augmentation management per cardiology. Chest x-ray shows improving edema but with persistent bilateral effusions. Will initiate weaning trials if tolerated 02/09: Still remains on pressors, unable to wean Levophed below 2 mcg/min. Milrinone currently on 0.375 mcg/kg/min. IABP removed yesterday. On sedation hold patient wakes up but remains lethargic. Weakly squeezes hand. Urine output excellent on Bumex, 4 L output in 24 hours. Will attempt CPAP today 02/10: Multiple episodes of V. fib V. tach arrest yesterday morning. Successfully resuscitated. Yesterday night had two-minute V. fib arrest return of spontaneous circulation in sinus rhythm after DC cardioversion 1. Currently remains on milrinone and low-dose Levophed. I will try to wean off Levophed introduce low-dose beta-rasheed due to recurrent arrhythmia. Keep potassium more than 4 magnesium more than 2 02/11: Patient still critical and cardiogenic shock requiring Levophed and milrinone. Urine output improved with adding Diamox. Approximately 2 L urine output in 24 hours, creatinine remained stable. Oxygenation slightly improved FiO2 reduced to 70% now. Overall prognosis remains poor family wants to continue aggressive care 02/12: Remains critical but slight improvement in oxygenation. But continues to require Levophed and milrinone the low-dose. Urine output remains adequate. Chest x-ray shows interval improvement. Creatinine remains stable to slightly improved. Add IV albumin to improve blood pressure and to promote diuresis. 02/13 Patient remains intubated and sedated with Versed and fentanyl. Afebrile, off Levophed remains on Milrinone and Heparin drip. 02/14: Hypothermic overnight. Remains on milrinone and heparin drips. Tolerating tube feeds at 20 cc now. Positive BM. No changes neurologically 02/15 Patient remains sedated with Versed and Fentanyl drips, on Milrinone 0.5. 02/16 Patient remains intubated sedated with Versed and Fentanyl infusion. On Milrinone and Heparin drips. CT brain yesterday showed no acute findings. Afebrile. 02/17 Patient remains sedated and intubated. Afebrile, On Milrinone and Heparin drip. 02/18: Remains critical continues to require milrinone. Urine output adequate. Chest x-ray shows bilateral infiltrate effusion. CT chest to better define effusions and infiltrate. Increase Bumex to 1 mg every 8 hours. Patient is persistently weak, will attempt SBT unlikely to be successfully extubated at this time. Most likely will need tracheostomy if family desires aggressive care 02/19: Remains intubated sedated with Versed and fentanyl. Transition to Precedex to facilitate weaning trials. Patient responding slightly more to verbal command, appears to track even though not following commands. Creatinine slightly increased with increased diuresis. Chest x-ray shows improved pleural effusions. CT chest yesterday did not show significant effusion but basilar consolidation. 02/20 Patient was extubated yesterday on 10L simple mask, on Precdex, Heparin and Milrinone drips. Tmax 101.1 yesterday 02/21: Febrile. Currently on 5 L nasal cannula. Continues on heparin drip with 500 units an hour. Received bumetanide 1 mg 1 today. Positive BM 02/22: Remains on 5 L nasal cannula. Remains on heparin drip. No changes neurologically remains medically stable. 02/23: Intubated early this morning secondary to acute respiratory failure. Blood pressure marginal likely due to sedation. Ejection fraction less than 20% . Discussed with at bedside. She was to proceed with tracheostomy in PEG tube placement. We will plan for within the next few days. 02/24: Remains sedated, orally intubated on mechanical ventilation. 02/25: Remains sedated, orally intubated on mechanical ventilation. Worsening renal function noted. Check UA, urine sodium and creatinine. Ordered Kayexalate for hyperkalemia and nephrology consulted. 02/26: Sedated, arousable, orally intubated on mechanical ventilation. Will hold Plavix for planned tracheostomy and PEG tube placement. Remains on heparin for anticoagulation. 02/27: Drowsy, arousable, orally intubated on mechanical ventilation. Awaiting tracheostomy and PEG tube placement. 02/28: Drowsy, arousable, remains orally intubated on mechanical ventilation. PEG tube scheduled for today. 03/01: Drowsy, arousable, remains orally intubated on mechanical ventilation. Underwent PEG tube placement on 02/28. Worsening thrombocytopenia noted and now down to 50,000. Will continue holding Plavix and heparin. Check HIT screen and consult hematology. Awaiting tracheostomy 03/02: Drowsy, arousable, remains orally intubated on mechanical vent relation. Hematology consult noted. 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 03/03: Intubated remains heavily sedated. Was unable to wean off the ventilator , became hypoxemic on CPAP yesterday. 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 Will transfuse 3 packed units of platelets prior to tracheostomy planned for 11 AM today. Platelet count 49,000 03/04 Trached yesterday. Had high residuals earlier today (500 mL) and tube feeds placed on hold. KUB unremarkable. Given reglan, now residual is 10 so resuming tube feeds. On CPAP via trach. Remains sedated on fentanyl and versed, will wean. 03/05 Bleeding at trach site overnight, argatroban was placed on hold. Hgb stable 7.4, platelet count 70k. Surgicell has been ordered but has not yet been applied. Off versed, fentanyl drip still running 50 mcg. He is more alert today , communicates his need to have his mouth suctioned. 03/06: No events over the night. T-max of 98.7. Urine output greater than 4 L over the last 24 hours. 03/07: Patient remains afebrile, with a T-max of 98.5. Urine output 2350 mL's over the last 24 hours. No acute events over the night. Patient is currently on CPAP trial 04/21 with respiratory rate in the mid to high teens with tidal volumes 3-400, comfortable. 03/08: No events over the night. Patient tolerated T piece yesterday and he was placed back on CPAP last night. This morning he is back on T piece. He is easily arousable and following some commands. He is complaining of back pain. T-max of 99.2, urine output of 2450 mL's over the last 24 hours. 03/09: Patient tolerated T piece yesterday and he was placed back on CPAP at night. This morning he is sleeping, easily arousable. No other events over the night. T-max of 99.2. I/O 1100/1000. Still having significant amount of diarrhea. Subjective: 03/10: No events over the night. Patient currently on CPAP 04/21 doing well. T- max of 99.4. I/O 3233/2600. No bleeding upon suction. Still having diarrhea. He is awake, alert, complains of back pain. Objective Vital Signs / I&O: Vital Signs 03/09/18 10:54 03/09/18 12:00 03/09/18 14:00 Temperature 99.2 F Pulse Rate 87 92 H Respiratory Rate 27 H 23 Blood Pressure 112/70 Pulse Oximetry 93 L 98 03/09/18 16:00 03/09/18 16:47 03/09/18 18:00 Temperature 99.4 F Pulse Rate 82 83 Respiratory Rate 24 21 Blood Pressure 108/70 Pulse Oximetry 98 99 03/09/18 20:00 03/09/18 20:17 03/09/18 22:00 Temperature 98.8 F Pulse Rate 90 74 Respiratory Rate 24 24 Blood Pressure 109/67 Pulse Oximetry 96 96 03/10/18 00:00 03/10/18 01:20 03/10/18 02:00 Temperature 99.0 F Pulse Rate 86 82 Respiratory Rate 24 30 H Blood Pressure 110/74 Pulse Oximetry 98 98 03/10/18 04:00 03/10/18 04:02 03/10/18 06:00 Temperature 98 F Pulse Rate 84 82 Respiratory Rate 21 20 Blood Pressure 108/65 Pulse Oximetry 96 96 03/10/18 06:51 03/10/18 08:00 03/10/18 08:50 Temperature 98.4 F Pulse Rate 92 H 84 Respiratory Rate 28 H 25 H 18 Blood Pressure 105/60 Pulse Oximetry 97 98 Intake & Output 03/09/18 03/10/18 03/10/18 18:59 06:59 18:59 Intake Total 2083 / 2083 1250 / 1250 850 / 850 Output Total 1400 / 1400 1200 / 1200 Balance 683 / 683 50 / 50 850 / 850 Weight 66 kg Intake: IV 1047 / 1047 100 / 100 850 / 850 Novastan Inj 250 MG In NS Inj 37 / 37 247.5 ML @ 2 MCG/KG/MIN 7.56 mls/hr IV.CONT TITRATE PRN Rx#: [id number] D5W Inj 1,000 ML @ 42 mls/hr IV 350 / 350 650 / 650 .CONT .[id number] ADRIEN Rx#:[id number] Azactam Inj 1,000 MG In NS Inj 200 / 200 100 / 100 100 / 100 100 ML @ 200 mls/hr IV.SIG Q6H ADRIEN Rx#:[id number] Venofer Inj 200 MG In NS Inj 110 / 110 100 ML @ 110 mls/hr IV.SIG Q24H ADRIEN Rx#:[id number] Magnesium Sulfate Inj 2 GM In 100 / 100 NS Inj 96 ML @ 50 mls/hr IV.SIG ONCE ONE Rx#:[id number] Potassium Phosphate Inj 15 MMOL 150 / 150 In NS Inj 150 ML @ 38.75 mls/ hr IV.SIG ONCE ONE Rx#:[id number] Ancef Inj 1,000 MG In NS Inj 100 / 100 100 / 100 100 ML @ 200 mls/hr IV.SIG Q12H ADRIEN Rx#:[id number] Oral 0 / 0 Tube Feeding 436 / 436 550 / 550 Water Bolus Amount 600 / 600 600 / 600 Output: Urine 1100 / 1100 Stool 400 / 400 100 / 100 Urine Amount (Catheter) 1000 / 1000 Indwelling Urethral Catheter 1000 / 1000 Other: Date of Last Bowel Movement 03/09/18 03/09/18 03/09/18 Result Diagrams: 03/09/18 06:17 03/09/18 06:17 Objective Remarks: GENERAL: Elderly gentleman, awake, alert, ill-appearing, on vent. HEENT: Pupils equal and reactive, sclera anicteric. Trach in place. Neck veins not distended. Dry mucous membranes. CARDIOVASCULAR: Regular , no murmurs appreciated. RESPIRATORY: Still has scattered coarse breath sounds bilateral. No wheezes. Good air entry. GASTROINTESTINAL: Abdomen soft, nontender, not distended, bowel sounds are present. PEG in in place. MUSCULOSKELETAL: Extremities with bilateral trace lower extremity edema. Peripheral pulses are present. Tepid. NEURO: Awake, alert, following commands. Wiggles toes bilaterally and moves right upper extremity. Assessment and Plan - Assessment and Plan Plan: NEURO/PSYCH: History of stroke in 2015 Neuropathy left upper and lower extremity Chronic low back pain Continue ASA 81 mg daily. Continue pregabalin 150 mg p.o. twice daily. Holding duloxetine 90 mg p.o. daily. 02/15 CT brain: No acute findings. 02/15 EEG : Encephalopathy, no epileptiform activity MRI brain 02/16: New small focal acute infarction right cerebral vertex and also left cerebral vertex. Neuro has followed. RESP: Acute hypoxic respiratory failure -unchanged, on minimal O2 requirements, tolerating T piece during daytime and CPAP at night COPD on 2.5 L home O2 Prior tobacco abuse Bilateral pleural effusions Perc trach 03/03. T-piece during daytime and CPAP at night as tolerated Albuterol/ipratropium aerosols every 4 hours with albuterol aerosols every 2 hours as needed for dyspnea Patient has been on methylprednisolone succinate 40mg IV daily. Decreased to 20 mg IV daily starting 03/07 -slow taper since he was on steroids for a long time CV: V. tach/V. fib arrest -resolved NSTEMI Cardiogenic shock -resolved Acute systolic heart failure Atrial fibrillation with RVR [place] mechanical aortic valve (09/21/12 Dr. Gonzalez) s/p Tricuspid annuloplasty On amiodarone 400mg BID, carvedilol 3.125mg BID Continue aspirin 81 mg daily Clopidogrel is on hold since 02/26 for trach and PEG and will resume when plt > 80 per hematology Continue atorvastatin 40 mg nightly. Spironolactone stopped in v/o hyperkalemia on 02/25 s/p cath And PCI -proximal LAD and large diagonal 90% stenosis, 2 BMS stent 02/05, mid LAD vasospasm post PCI Off IABP 02/08/18 [place] 01/23/18no vegetation. Normal aortic mechanical valve with trivial aortic insufficiency. Tricuspid annuloplasty. Mild to moderate LV generalized hypokinesis Echo from 02/05: EF <20%, diffuse hypokinesis, bioprosthetic valve Board Writer is Romana Bartlett GI: Moderate protein calorie malnutrition with hypoalbuminemia Jevity 1.5 now at goal 50 ml/hr. Status post PEG tube placement Lansoprazole for stress ulcer prophylactic Had normal EGD on 10/21/17 FEN/RENAL: Acute kidney injury -creatinine is improved urine output is appropriate Hypopotassemia Hypernatremia BPH Hypomagnesemia Hypo-phosphatemia Today's electrolytes are pending Continue D5W at 50 mils per hour for now Monitor renal function, I/O's, creatinine slowly improving. Renal ultrasound to evaluate for evidence of obstruction -did not show any obstruction Discontinued bumetanide 1mg IV daily , spironolactone 25 mg twice daily stopped on 02/25 due to hyperkalemia and worsening renal function.. 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 difficile colitis -still having diarrhea Funguria Discontinued IV vancomycin and gentamicin 02/20. Cefepime IV discontinued on and patient started on aztreonam and Ancef IV Currently on aztreonam, cefazolin, p.o. Vanco Fluconazole was discontinued by ID on 03/07 C.diff tx: po vanco 02/11/18. 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 Continue holding Plavix and heparin. Hematology consulted for worsening thrombocytopenia. 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 Bleeding from trach resolved with surgicell. Resumed argatroban 03/05. RITA pending. 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 Now on argatroban. Protonix for stress ulcer prophylaxis ACCESS: Left IJ central line placed 02/05/18. Now removed and PIV in place. Palliative care is following No family present at bedside. Discussed with patient's yesterday at bedside in detail and I answered all her questions to the best of my ability. Level 2 follow-up
--- NOTE | 2018-03-10 13:25 | P.PNPAL ---
Reason for Visit Reason for visit: a. To assist with evaluation and management of symptoms including: pain, dyspnea, weakness b. To assist medical decision maker(s) with: better understanding of current medical conditions; weighing benefits/burdens of medical treatment options; making medical treatment decisions. Subjective Subjective/Interval History: Pt in bed, receiving breathing tx via trach. Has been tolerating CPAP. Sat 98% . He is verbal today. c/o pain but cannot further qualify or quantify. "Can you tell her its time for my pain meds?" Still with copious liquid stool. Abd mildly distended on exam. he is participating in PT. Objective Vital Signs: Vital Signs 03/09/18 14:00 03/09/18 16:00 03/09/18 16:47 Temperature 99.4 F Pulse Rate 92 H 82 Respiratory Rate 24 21 Blood Pressure 108/70 Pulse Oximetry 98 99 03/09/18 18:00 03/09/18 20:00 03/09/18 20:17 Temperature 98.8 F Pulse Rate 83 90 Respiratory Rate 24 24 Blood Pressure 109/67 Pulse Oximetry 96 96 03/09/18 22:00 03/10/18 00:00 03/10/18 01:20 Temperature 99.0 F Pulse Rate 74 86 Respiratory Rate 24 30 H Blood Pressure 110/74 Pulse Oximetry 98 98 03/10/18 02:00 03/10/18 04:00 03/10/18 04:02 Temperature 98 F Pulse Rate 82 84 Respiratory Rate 21 20 Blood Pressure 108/65 Pulse Oximetry 96 96 03/10/18 06:00 03/10/18 06:51 03/10/18 08:00 Temperature 98.4 F Pulse Rate 82 92 H 84 Respiratory Rate 28 H 25 H Blood Pressure 105/60 Pulse Oximetry 97 03/10/18 08:50 Temperature Pulse Rate Respiratory Rate 18 Blood Pressure Pulse Oximetry 98 Intake & Output 03/09/18 03/10/18 03/10/18 18:59 06:59 18:59 Intake Total 2083 / 2083 1250 / 1250 850 / 850 Output Total 1400 / 1400 1200 / 1200 Balance 683 / 683 50 / 50 850 / 850 Weight 66 kg Intake: IV 1047 / 1047 100 / 100 850 / 850 Novastan Inj 250 MG In NS Inj 37 / 37 247.5 ML @ 2 MCG/KG/MIN 7.56 mls/hr IV.CONT TITRATE PRN Rx#: [id number] D5W Inj 1,000 ML @ 42 mls/hr IV 350 / 350 650 / 650 .CONT .[id number] [facility] Rx#:[id number] Azactam Inj 1,000 MG In NS Inj 200 / 200 100 / 100 100 / 100 100 ML @ 200 mls/hr IV.SIG Q6H [facility] Rx#:[id number] Venofer Inj 200 MG In NS Inj 110 / 110 100 ML @ 110 mls/hr IV.SIG Q24H [facility] Rx#:[id number] Magnesium Sulfate Inj 2 GM In 100 / 100 NS Inj 96 ML @ 50 mls/hr IV.SIG ONCE ONE Rx#:[id number] Potassium Phosphate Inj 15 MMOL 150 / 150 In NS Inj 150 ML @ 38.75 mls/ hr IV.SIG ONCE ONE Rx#:[id number] Ancef Inj 1,000 MG In NS Inj 100 / 100 100 / 100 100 ML @ 200 mls/hr IV.SIG Q12H [facility] Rx#:[id number] Oral 0 / 0 Tube Feeding 436 / 436 550 / 550 Water Bolus Amount 600 / 600 600 / 600 Output: Urine 1100 / 1100 Stool 400 / 400 100 / 100 Urine Amount (Catheter) 1000 / 1000 Indwelling Urethral Catheter 1000 / 1000 Other: Date of Last Bowel Movement 03/09/18 03/09/18 03/09/18 Physical Exam: CONSTITUTIONAL/GENERAL: ill appearing and cachectic male SKIN: Sallow. No jaundice, rashes, or lesions. No wounds seen anteriorly. Not diaphoretic. HEAD: Atraumatic. Normocephalic. + temporal wasting EYES: No scleral icterus. Fundi not examined. PERRL. ENT: Nose without bleeding or purulent drainage. tracheostomy breathing tx CARDIOVASCULAR:RRR without murmurs, gallops, or rubs. + click. RESPIRATORY/CHEST: Symmetric, unlabored respirations. lung sounds coarse GASTROINTESTINAL: Abdomen soft, mildly distended, TTP. No hepato-splenomegaly, or palpable masses. Bowel sounds faint. +rectal bag with liquid stool GENITOURINARY: Without palpable bladder distension. Cano catheter in place. MUSCULOSKELETAL: Extremities without clubbing, cyanosis. No mottling or clubbing. NEUROLOGICAL: verbal today, cooperative, awake and alert Diagnostic Tests Laboratory: Laboratory Results - last 72 hr 03/07/18 03/07/18 03/08/18 13:04 17:40 00:15 WBC RBC Hgb Hct MCV MCH MCHC RDW Plt Count MPV Prelim Diff (Auto) Neut % (Auto) Lymph % (Auto) Wirt % (Auto) Eos % (Auto) Baso % (Auto) Neut # (Auto) Lymph # (Auto) Wirt # (Auto) Eos # (Auto) Baso # (Auto) WBC Differential Diff Scan Differential Comment Platelet Estimate Platelet Morphology APTT 69.5 H D Sodium Potassium Chloride Carbon Dioxide Anion Gap BUN Creatinine Estimated GFR POC Glucose 176 H 158 H Random Glucose Calcium Prot Corrected Calcium Phosphorus Magnesium Total Bilirubin AST ALT Alkaline Phosphatase Total Protein Albumin Urine Color Urine Clarity Urine pH Ur Specific [place] Urine Protein Urine Glucose (UA) Urine Ketones Urine Occult Blood Urine Nitrate Urine Bilirubin Urine Urobilinogen Ur Leukocyte Esterase Urine RBC Urine WBC Calcium Oxalate Crystal Hyaline Casts Granular Casts Urine Mucus Micro UA Comment Ur Microscopic Review Urine Culture Comments 03/08/18 03/08/18 03/08/18 04:25 04:25 04:25 WBC 5.0 RBC 2.57 L Hgb 8.2 L Hct 24.6 L MCV 95.8 MCH 31.9 MCHC 33.3 RDW 22.4 H Plt Count 64 L MPV 11.6 H Prelim Diff (Auto) Slide review pending Neut % (Auto) 87.7 H Lymph % (Auto) 8.5 L Wirt % (Auto) 3.6 Eos % (Auto) 0.1 Baso % (Auto) 0.1 Neut # (Auto) 4.3 Lymph # (Auto) 0.4 L Wirt # (Auto) 0.2 Eos # (Auto) 0.0 Baso # (Auto) 0.0 WBC Differential . Diff Scan Auto diff confirmed Differential Comment . Platelet Estimate Low L Platelet Morphology Normal APTT 67.9 H Sodium 147 H Potassium 3.6 Chloride 115 H Carbon Dioxide 20.1 L Anion Gap 12 BUN 40 H Creatinine 1.05 Estimated GFR 71 L POC Glucose Random Glucose 118 H Calcium 7.2 L* Prot Corrected Calcium 8.3 L Phosphorus 1.8 L Magnesium 1.3 L Total Bilirubin 0.3 AST 35 ALT 11 L Alkaline Phosphatase 48 Total Protein 5.0 L Albumin 1.7 L Urine Color Urine Clarity Urine pH Ur Specific [place] Urine Protein Urine Glucose (UA) Urine Ketones Urine Occult Blood Urine Nitrate Urine Bilirubin Urine Urobilinogen Ur Leukocyte Esterase Urine RBC Urine WBC Calcium Oxalate Crystal Hyaline Casts Granular Casts Urine Mucus Micro UA Comment Ur Microscopic Review Urine Culture Comments 03/08/18 03/08/18 03/08/18 06:04 12:00 15:10 WBC RBC Hgb Hct MCV MCH MCHC RDW Plt Count MPV Prelim Diff (Auto) Neut % (Auto) Lymph % (Auto) Wirt % (Auto) Eos % (Auto) Baso % (Auto) Neut # (Auto) Lymph # (Auto) Wirt # (Auto) Eos # (Auto) Baso # (Auto) WBC Differential Diff Scan Differential Comment Platelet Estimate Platelet Morphology APTT Sodium Potassium Chloride Carbon Dioxide Anion Gap BUN Creatinine Estimated GFR POC Glucose 124 H 146 H Random Glucose Calcium Prot Corrected Calcium Phosphorus Magnesium Total Bilirubin AST ALT Alkaline Phosphatase Total Protein Albumin Urine Color Yellow Urine Clarity Hazy H Urine pH 5.0 Ur Specific [place] 1.013 Urine Protein 30 H Urine Glucose (UA) 500 or greater Urine Ketones Negative Urine Occult Blood Moderate H Urine Nitrate Negative Urine Bilirubin Negative Urine Urobilinogen Less than 2 Ur Leukocyte Esterase Negative Urine RBC 4 H Urine WBC 5 Calcium Oxalate Crystal Occasional H Hyaline Casts 4 Granular Casts 7 Urine Mucus Few H Micro UA Comment Cath-culture not ind Ur Microscopic Review Not Reportable Urine Culture Comments Cath-cult not ind 03/08/18 03/09/18 03/09/18 17:38 01:01 05:51 WBC RBC Hgb Hct MCV MCH MCHC RDW Plt Count MPV Prelim Diff (Auto) Neut % (Auto) Lymph % (Auto) Wirt % (Auto) Eos % (Auto) Baso % (Auto) Neut # (Auto) Lymph # (Auto) Wirt # (Auto) Eos # (Auto) Baso # (Auto) WBC Differential Diff Scan Differential Comment Platelet Estimate Platelet Morphology APTT Sodium Potassium Chloride Carbon Dioxide Anion Gap BUN Creatinine Estimated GFR POC Glucose 173 H 143 H 97 Random Glucose Calcium Prot Corrected Calcium Phosphorus Magnesium Total Bilirubin AST ALT Alkaline Phosphatase Total Protein Albumin Urine Color Urine Clarity Urine pH Ur Specific [place] Urine Protein Urine Glucose (UA) Urine Ketones Urine Occult Blood Urine Nitrate Urine Bilirubin Urine Urobilinogen Ur Leukocyte Esterase Urine RBC Urine WBC Calcium Oxalate Crystal Hyaline Casts Granular Casts Urine Mucus Micro UA Comment Ur Microscopic Review Urine Culture Comments 03/09/18 03/09/18 03/09/18 06:17 06:17 06:17 WBC 3.4 L RBC 2.66 L Hgb 8.6 L Hct 25.9 L MCV 97.4 MCH 32.2 MCHC 33.0 RDW 23.5 H Plt Count 62 L MPV 11.1 H Prelim Diff (Auto) Slide review pending Neut % (Auto) 84.5 H Lymph % (Auto) 10.7 Wirt % (Auto) 3.9 Eos % (Auto) 0.8 Baso % (Auto) 0.1 Neut # (Auto) 2.8 Lymph # (Auto) 0.4 L Wirt # (Auto) 0.1 Eos # (Auto) 0.0 Baso # (Auto) 0.0 WBC Differential . Diff Scan Auto diff confirmed Differential Comment . Platelet Estimate Low L Platelet Morphology Enlarged H APTT 38.2 H D Sodium 149 H Potassium 3.7 Chloride 118 H Carbon Dioxide 21.7 Anion Gap 9 BUN 33 H Creatinine 0.90 Estimated GFR 85 L POC Glucose Random Glucose 89 Calcium 7.2 L* Prot Corrected Calcium 8.1 L Phosphorus 2.1 L Magnesium 1.7 Total Bilirubin 0.3 AST 29 ALT 12 Alkaline Phosphatase 53 Total Protein 5.4 L Albumin 1.8 L Urine Color Urine Clarity Urine pH Ur Specific [place] Urine Protein Urine Glucose (UA) Urine Ketones Urine Occult Blood Urine Nitrate Urine Bilirubin Urine Urobilinogen Ur Leukocyte Esterase Urine RBC Urine WBC Calcium Oxalate Crystal Hyaline Casts Granular Casts Urine Mucus Micro UA Comment Ur Microscopic Review Urine Culture Comments 03/09/18 03/09/18 03/09/18 12:01 17:28 22:56 WBC RBC Hgb Hct MCV MCH MCHC RDW Plt Count MPV Prelim Diff (Auto) Neut % (Auto) Lymph % (Auto) Wirt % (Auto) Eos % (Auto) Baso % (Auto) Neut # (Auto) Lymph # (Auto) Wirt # (Auto) Eos # (Auto) Baso # (Auto) WBC Differential Diff Scan Differential Comment Platelet Estimate Platelet Morphology APTT 72.7 H D Sodium Potassium Chloride Carbon Dioxide Anion Gap BUN Creatinine Estimated GFR POC Glucose 132 H 203 H Random Glucose Calcium Prot Corrected Calcium Phosphorus Magnesium Total Bilirubin AST ALT Alkaline Phosphatase Total Protein Albumin Urine Color Urine Clarity Urine pH Ur Specific [place] Urine Protein Urine Glucose (UA) Urine Ketones Urine Occult Blood Urine Nitrate Urine Bilirubin Urine Urobilinogen Ur Leukocyte Esterase Urine RBC Urine WBC Calcium Oxalate Crystal Hyaline Casts Granular Casts Urine Mucus Micro UA Comment Ur Microscopic Review Urine Culture Comments 03/10/18 03/10/18 03/10/18 00:07 06:06 12:28 WBC RBC Hgb Hct MCV MCH MCHC RDW Plt Count MPV Prelim Diff (Auto) Neut % (Auto) Lymph % (Auto) Wirt % (Auto) Eos % (Auto) Baso % (Auto) Neut # (Auto) Lymph # (Auto) Wirt # (Auto) Eos # (Auto) Baso # (Auto) WBC Differential Diff Scan Differential Comment Platelet Estimate Platelet Morphology APTT Sodium Potassium Chloride Carbon Dioxide Anion Gap BUN Creatinine Estimated GFR POC Glucose 192 H 126 H 129 H Random Glucose Calcium Prot Corrected Calcium Phosphorus Magnesium Total Bilirubin AST ALT Alkaline Phosphatase Total Protein Albumin Urine Color Urine Clarity Urine pH Ur Specific [place] Urine Protein Urine Glucose (UA) Urine Ketones Urine Occult Blood Urine Nitrate Urine Bilirubin Urine Urobilinogen Ur Leukocyte Esterase Urine RBC Urine WBC Calcium Oxalate Crystal Hyaline Casts Granular Casts Urine Mucus Micro UA Comment Ur Microscopic Review Urine Culture Comments Result Diagrams: 03/09/18 06:17 03/09/18 06:17 Procedures: 02/05 left IJ placement 02/05 retrograde left heart cath, stent placement, IABP placement 02/05 intubated 02/19 extubated 02/23 reintubated 02/28 PEG tube placed 03/03 trach Assessment and Plan - Disease Oriented Problem List (1) Hypokalemia (2) Cardiogenic shock (3) CAD (coronary artery disease) (4) Ventricular fibrillation - Symptom Scale (1) Dyspnea 0-10 Scale: Unable to quantify (2) Pain 0-10 Scale: Unable to quantify (3) Debility 0-10 Scale: Unable to quantify Pertinent Non-Medical Issues: Psychosocial: On disability. 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 Spiritual: Jainism, non-evangelical. Skilled Laborer has visited, they also have jew production broacher visiting. Legal: Pt not capacitated to make medical decisions. Unclear if he will regain capacity. Per [place] statutes decision making would fall to as proxy. Ethical issues impacting care: none identified Important Contacts: Maria Isabel Tolentino [phone] sister Yvonne Valdivia [phone] Prognosis: 62 yo male s/p aortic valve replacement 2012 who suffered significant NSTEMI, EF <20% on presentation, troponins up to 32. Echo also showed global hypokinesis. Not clear how much of heart failure was present prior to NSTEMI. s /p heart cath, LAD stenting complicated by vasospasm, placement and subsequent removal of IABP. 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 He has had several runs of v fib and v tach requiring chest compressions, shocks. He has underlying COPD and was having activity intolerance prior to this event. He was reintubated. His prognosis for recovery is poor; chances of returning to baseline extremely poor. Unlikely he would tolerate rehab. He remains at high risk for continued complications including but not limited to recurrent arrhythmias, multi-organ injury; and at risk for further decline. He is hospice appropriate should goals be in line with comfort. Code Status: Full Code Plan: - LEGAL DECISON MAKER - Pt not capacitated to make medical decisions, unclear if he will regain this capacity. Per [place] statutes decision making would fall to as proxy. - CODE STATUS- full code - GOALS - verbalizes aggressive goals. feels God is healing him and anyone who believes otherwise should not enter the room. - SYMPTOMS - * dyspnea - multifactorial - hx COPD, EF < 20%, class 4 heart failure. extubated 02/19, on 10L simple mask. reintubated 02/23. CPAP trials ongoing, he is tolerating. now with trach. lung sounds coarse. PRN duonebs, scheduled duonebs * pain - multifactorial, lines, ET tube, catheters, acute and chronic pain. sees pain mgmt, been on hydrocodone , reportedly same dosage and frequency for 6 years. c/o pain and asking about his pain medicine but he is unable to further qualify or quantify. appears comfortable. on [place] 7.5/325 1 tab PO q4h PRN, last had 0830 this morning. per ccm. * debility/weakness - multifactorial. profoundly emaciated and ill appearing, per this is his usual appearance. reintubated, at risk for worsening debility. PT following. referral to [facility] pending. s/p PEG tube placement, trach. cardiac function prob would not allow aggressive rehab. - Palliative care will continue to follow during hospital course as condition evolves, to assist patient/decision-maker with understanding of medical conditions, weighing benefits/burdens of treatment options, for clarification of goals of treatment. Additionally will assist with any symptoms of palliative concern Attestation Attestation: To help prompt me to consider important information that might be impacting today's encounter and assessment, information from prior notes written by myself or my colleagues may have been "brought forward" into today's note. My signature on this note, however, is an attestation that I personally performed the exam, history, and/or decision-making noted today, and, unless otherwise indicated, the interactions with patient, family, and staff as well as the review of records all occurred today. I also attest that the listed assessment and stated plan reflect my best clinical judgment today based on the combination of historical information, prior notes, and today's exam/ interactions. When time spent is documented, it refers only to time spent today by the signer, or if indicated, combined time spent today by collaborating physician/nurse practitioner.
[2018-03-10 13:29] LABS: Baso % (Auto) 0.3 % (0.0-2.0); Eos % (Auto) 0.1 % (0.0-4.0); Hematocrit 31.1 % (39.0-51.0); Hemoglobin 9.8 gm/dL (13.0-17.0); Lymph # (Auto) 0.2 th/mm3 (1.0-4.8); Lymph % (Auto) 5.1 % (9.0-44.0); Mean Corpuscular HGB Conc 31.4 % (32.0-36.0); Mean Corpuscular Hemoglobin 31.5 pg (27.0-34.0); Mean Corpuscular Volume 100.4 fL (80.0-100.0); Mean Platelet Volume 11.6 fL (7.0-11.0); Mono # (Auto) 0.2 th/mm3 (0.0-0.9); Mono % (Auto) 4.1 % (0.0-8.0); Neut # (Auto) 4.2 th/mm3 (1.8-7.7); Neut % (Auto) 90.4 % (16.0-70.0); Platelet Count 78 th/mm3 (150-450); Red Cell Distribution Width 24.2 % (11.6-17.2); White Blood Count 4.7 th/mm3 (4.0-11.0)
[2018-03-10 13:46] LABS: Alanine Aminotransferase 16 U/L (12-78); Albumin 2.2 g/dL (3.4-5.0); Alkaline Phosphatase 69 U/L (45-117); Anion Gap 12 meq/L (5-15); Aspartate Aminotransferase 43 U/L (15-37); Blood Urea Nitrogen 31 mg/dL (7-18); Calcium 7.7 mg/dL (8.5-10.1); Carbon Dioxide 21.4 meq/L (21.0-32.0); Chloride 110 meq/L (98-107); Glomerular Filtration Rate 87 mL/min (>89); Glucose,Random 115 mg/dL (74-106); Magnesium 1.8 mg/dL (1.5-2.5); Phosphorus 1.9 mg/dL (2.5-4.9); Potassium 3.7 meq/L (3.5-5.1); Sodium 143 meq/L (136-145); Total Protein 6.5 g/dL (6.4-8.2)
--- NOTE | 2018-03-10 15:59 | P.PNONC ---
Subjective Interval history: Afebrile. Patient lying in bed, alert and oriented. Patient is able to talk with tracheostomy capped. Patient reports coughing up an enormous amount of mucus. During examination patient is coughing up thick yellow mucus. He reports that it hurts to cough, however stating that he knows that he has to get it out. Objective Vital Signs/Intake & Output: Vital Signs 03/09/18 16:00 03/09/18 16:47 03/09/18 18:00 Temperature 99.4 F Pulse Rate 82 83 Respiratory Rate 24 21 Blood Pressure 108/70 Pulse Oximetry 98 99 03/09/18 20:00 03/09/18 20:17 03/09/18 22:00 Temperature 98.8 F Pulse Rate 90 74 Respiratory Rate 24 24 Blood Pressure 109/67 Pulse Oximetry 96 96 03/10/18 00:00 03/10/18 01:20 03/10/18 02:00 Temperature 99.0 F Pulse Rate 86 82 Respiratory Rate 24 30 H Blood Pressure 110/74 Pulse Oximetry 98 98 03/10/18 04:00 03/10/18 04:02 03/10/18 06:00 Temperature 98 F Pulse Rate 84 82 Respiratory Rate 21 20 Blood Pressure 108/65 Pulse Oximetry 96 96 03/10/18 06:51 03/10/18 08:00 03/10/18 08:50 Temperature 98.4 F Pulse Rate 92 H 84 Respiratory Rate 28 H 25 H 18 Blood Pressure 105/60 Pulse Oximetry 97 98 03/10/18 10:00 03/10/18 12:00 Temperature 97.7 F Pulse Rate 83 86 Respiratory Rate 22 Blood Pressure 115/71 Pulse Oximetry 96 Intake & Output 03/09/18 03/10/18 03/10/18 18:59 06:59 18:59 Intake Total 2083 / 2083 1250 / 1250 950 / 950 Output Total 1400 / 1400 1200 / 1200 Balance 683 / 683 50 / 50 950 / 950 Weight 66 kg Intake: IV 1047 / 1047 100 / 100 950 / 950 Novastan Inj 250 MG In NS Inj 37 / 37 247.5 ML @ 2 MCG/KG/MIN 7.56 mls/hr IV.CONT TITRATE PRN Rx#: [id number] D5W Inj 1,000 ML @ 42 mls/hr IV 350 / 350 650 / 650 .CONT .[id number] [facility] Rx#:[id number] Azactam Inj 1,000 MG In NS Inj 200 / 200 100 / 100 200 / 200 100 ML @ 200 mls/hr IV.SIG Q6H [facility] Rx#:[id number] Venofer Inj 200 MG In NS Inj 110 / 110 100 ML @ 110 mls/hr IV.SIG Q24H [facility] Rx#:[id number] Magnesium Sulfate Inj 2 GM In 100 / 100 NS Inj 96 ML @ 50 mls/hr IV.SIG ONCE ONE Rx#:[id number] Potassium Phosphate Inj 15 MMOL 150 / 150 In NS Inj 150 ML @ 38.75 mls/ hr IV.SIG ONCE ONE Rx#:[id number] Ancef Inj 1,000 MG In NS Inj 100 / 100 100 / 100 100 ML @ 200 mls/hr IV.SIG Q12H [facility] Rx#:[id number] Oral 0 / 0 Tube Feeding 436 / 436 550 / 550 Water Bolus Amount 600 / 600 600 / 600 Output: Urine 1100 / 1100 Stool 400 / 400 100 / 100 Urine Amount (Catheter) 1000 / 1000 Indwelling Urethral Catheter 1000 / 1000 Other: Date of Last Bowel Movement 03/09/18 03/09/18 03/09/18 Result Diagrams: 03/10/18 12:26 03/10/18 12:26 Laboratory Results: Laboratory Results - last 24 hr 03/09/18 03/09/18 03/10/18 17:28 22:56 00:07 WBC RBC Hgb Hct MCV MCH MCHC RDW Plt Count MPV Prelim Diff (Auto) Neut % (Auto) Lymph % (Auto) [place] % (Auto) Eos % (Auto) Baso % (Auto) Neut # (Auto) Lymph # (Auto) [place] # (Auto) Eos # (Auto) Baso # (Auto) WBC Differential Diff Scan Differential Comment Platelet Estimate Platelet Morphology APTT 72.7 H D Sodium Potassium Chloride Carbon Dioxide Anion Gap BUN Creatinine Estimated GFR POC Glucose 203 H 192 H Random Glucose Calcium Phosphorus Magnesium Total Bilirubin AST ALT Alkaline Phosphatase Total Protein Albumin 03/10/18 03/10/18 03/10/18 06:06 12:26 12:26 WBC 4.7 RBC 3.10 L Hgb 9.8 L Hct 31.1 L MCV 100.4 H MCH 31.5 MCHC 31.4 L RDW 24.2 H Plt Count 78 L MPV 11.6 H Prelim Diff (Auto) Slide review pending Neut % (Auto) 90.4 H Lymph % (Auto) 5.1 L [place] % (Auto) 4.1 Eos % (Auto) 0.1 Baso % (Auto) 0.3 Neut # (Auto) 4.2 Lymph # (Auto) 0.2 L [place] # (Auto) 0.2 Eos # (Auto) 0.0 Baso # (Auto) 0.0 WBC Differential . Diff Scan Auto diff confirmed Differential Comment . Platelet Estimate Low L Platelet Morphology Enlarged H APTT Sodium 143 Potassium 3.7 Chloride 110 H D Carbon Dioxide 21.4 Anion Gap 12 BUN 31 H Creatinine 0.88 Estimated GFR 87 L POC Glucose 126 H Random Glucose 115 H Calcium 7.7 L Phosphorus 1.9 L Magnesium 1.8 Total Bilirubin 0.4 AST 43 H ALT 16 Alkaline Phosphatase 69 Total Protein 6.5 D Albumin 2.2 L 03/10/18 03/10/18 12:26 12:28 WBC RBC Hgb Hct MCV MCH MCHC RDW Plt Count MPV Prelim Diff (Auto) Neut % (Auto) Lymph % (Auto) [place] % (Auto) Eos % (Auto) Baso % (Auto) Neut # (Auto) Lymph # (Auto) [place] # (Auto) Eos # (Auto) Baso # (Auto) WBC Differential Diff Scan Differential Comment Platelet Estimate Platelet Morphology APTT 45.5 H D Sodium Potassium Chloride Carbon Dioxide Anion Gap BUN Creatinine Estimated GFR POC Glucose 129 H Random Glucose Calcium Phosphorus Magnesium Total Bilirubin AST ALT Alkaline Phosphatase Total Protein Albumin Medications: Active Medications Generic Name Dose Route Start Last Admin Trade Name Freq PRN Reason Stop Dose Admin Acetaminophen 650 mg 02/14/18 09:23 02/19/18 15:18 Tylenol Liq PO 650 mg Q6H PRN Administration FEVER Hydrocodone Bitart/Acetaminophen 1 tab 03/05/18 08:11 03/10/18 08:34 Terreton 7.5/325 PO 1 tab Q4H PRN Administration pain 1-10 Albuterol 2.5 mg 02/05/18 00:00 03/10/18 06:51 Albuterol Neb (Prn) NEB 2.5 mg Q2HR NEB PRN Administration SHORTNESS OF BREATH/WHEEZING Amiodarone HCl 400 mg 02/11/18 12:00 08/24/18 08:34 Cordarone G-TUBE 400 mg BID [facility]RI[facility] Administration Artificial Tears 1 drops 02/14/18 21:00 03/10/18 08:36 Genteal Severe Dry Eye Relief 0.3% Opth Gel EACH EYE 1 drops BID ADRIEN Administration Ascorbic Acid 500 mg 02/15/18 09:00 03/10/18 08:34 Vitamin C NG/OG 500 mg DAILY ADRIEN Administration Aspirin 81 mg 02/06/18 09:00 03/10/18 08:34 Aspirin Chew PO 81 mg DAILY [facility]RI[facility] Administration Atorvastatin Calcium 40 mg 02/05/18 21:00 03/09/18 20:28 Lipitor PO 40 mg HS [facility]RIEN Administration Chlorhexidine Gluconate 15 ml 02/06/18 08:00 03/10/18 08:34 Peridex 0.12% Oral Kit OROPHARYNG 15 ml BID@0800,1999 [facility] Administration Clopidogrel Bisulfate 75 mg 02/06/18 09:00 02/25/18 09:13 Plavix PO 75 mg DAILY [facility] Administration Dextrose 50 ml 02/13/18 09:27 03/01/18 06:02 D50w Vial IV.PUSH 50 ml UNSCH PRN Administration PER HYPOGLYCEMIA PROTOCOL Digoxin 250 mcg 02/07/18 09:00 02/11/18 15:41 Lanoxin Inj IV.PUSH Not Given DAILY ADRIEN Duloxetine HCl 90 mg 02/05/18 09:00 02/11/18 11:18 Cymbalta PO Not Given DAILY ADRIEN Ferrous Sulfate 300 mg 02/15/18 09:00 03/10/18 08:34 Ferrrous Sulfate Liq PO 300 mg DAILY ADRIEN Administration Aztreonam 1,000 mg/ Sodium 100 mls @ 200 mls/hr 02/28/18 20:00 03/10/18 14:22 Chloride IV.SIG 200 mls/hr Q6H [facility] Administration Cefazolin Sodium 1,000 mg/ 100 mls @ 200 mls/hr 02/28/18 19:00 03/10/18 09:47 Sodium Chloride IV.SIG 200 mls/hr Q12H [facility] Administration Argatroban 250 mg/ Sodium 250 mls @ 7.56 mls/hr 03/02/18 15:00 03/10/18 14:22 Chloride IV.CONT 2 mcg/kg/min TITRATE PRN 7.56 mls/hr Per Protocol Titration Protocol 2 MCG/KG/MIN Dextrose 1,000 mls @ 42 mls/hr 03/09/18 09:15 03/10/18 08:36 D5w Inj IV.CONT 42 mls/hr .[id number] [facility] Administration Insulin Aspart 0 unit 02/13/18 12:00 03/10/18 12:31 Novolog Insulin Correctional Sugar Inj SQ Not Given Q6HR [facility] Protocol Lactulose 30 ml 02/05/18 00:00 02/05/18 08:38 Lactulose Liq PO 30 ml DAILY PRN Administration SEVERE CONSITIPATION Lansoprazole 30 mg 02/15/18 09:00 03/10/18 08:34 Prevacid Solutab NG/OG 30 mg DAILY ADRIEN Administration Methylprednisolone Sodium Succinate 20 mg 03/07/18 11:47 03/10/18 08:37 Solumedrol Inj IV.PUSH 20 mg DAILY [facility] Administration Morphine Sulfate 4 mg 03/05/18 08:12 03/07/18 03:35 Morphine Inj IV.PUSH 4 mg Q3H PRN Administration breakthrough pain Multivitamins 1 tab 02/05/18 09:00 03/10/18 08:34 Theragran PO 1 tab DAILY [facility] Administration Pregabalin 150 mg 02/04/18 23:50 03/10/18 08:34 Lyrica PO 150 mg BID ADRIEN Administration Senna/Docusate Sodium 1 tab 02/05/18 09:00 03/10/18 08:37 Linda-Colace PO 1 tab BID ADRIEN Administration Sodium Chloride 2 ml 02/05/18 09:00 03/10/18 08:36 Ns Flush IV.FLUSH 2 ml BID [facility] Administration Sterile Water 300 ml 03/02/18 18:00 03/10/18 12:31 Free Water G-TUBE 300 ml Q6HR [facility] Administration Vancomycin HCl 500 mg 02/11/18 16:00 03/10/18 12:31 Vancomycin Po G-TUBE 500 mg Q6HR [facility] Administration Whey 1 packet 02/08/18 13:00 03/10/18 12:31 Beneprotein Powder G-TUBE 1 packet TID [facility] Administration Objective Remarks: GENERAL: Chronically ill-appearing older male patient, alert, in no acute distress. SKIN: Warm and dry. HEAD: Normocephalic. EYES: No scleral icterus. No injection or drainage. NECK: Tracheostomy midline. No bleeding/oozing noted at tracheostomy site. Trach capped with thick yellow mucus oozing CARDIOVASCULAR: Regular rate and rhythm without murmurs. RESPIRATORY: Anterior breath sounds clear, equal bilaterally. humidified o2 via trach mask. GASTROINTESTINAL: Abdomen soft, non-tender, distended. Feeding tube LUQ. EXTREMITIES: No cyanosis, bilateral SCD's and boot supports in place. MUSCULOSKELETAL: Generalized weakness NEUROLOGICAL: Patient with good eye contact, speaking well. Moving BUE-Lft weaker than right. Assessment/Plan - Plan 62-year-old male admitted to the hospital in late January for fever and hypotension. He was found to have septic shock. He has C. difficile colitis. Hematology consulted for thrombocytopenia. 1. Continue to monitor CBC, hemoglobin and platelets continue to recover. Patient doing well on argatroban drip, no obvious signs of bleeding. 2. Continue argatroban drip until able to transition to Coumadin. Patient with history of mechanical valve. 3. monitor CBC, coags and LFTs. 4. Suction patient as needed. RN notified of patient's needs at this time. 5. Continue supportive care. - Attending Statement The exam, history, and the medical decision-making described in the above note were completed with the assistance of the mid-level provider. I reviewed and agree with the findings presented. I attest that I had a [id number] encounter with the patient on the same day, and personally performed and documented my assessment and findings in the medical record. Pt is more alert today. No bleeding reported. Tolerating Argatroban. Platelet trended up to 78. Hgb also trended up and no evidence of bleeding. Continue Argatroban until able to transition to coumadin.
--- NOTE | 2018-03-10 17:30 | P.DIET ---
Nutritional Evaluation Type of nutrition evaluation: follow-up Nutrition consult regarding: Tube Feeding Subjective Subjective Comments: Recent admission from 01/23-01/31 for MSSA bacteremia. Objective - Diagnosis Septic Shock - Objective [place] body weight: 67 kg % IBW: 88 Body Weight Used for Calculations: IBW Energy Needs - Lower Range (kCal/kg): 25 Energy Needs - Upper Range (kCal/kg): 30 Lower Limit kCal/kg (kCals): 1,675 Upper Limit kCal/kg (kCals): 2,016 Lower Limit Protein Factor (Grams per Kg): 1.2 Upper Limit Protein Factor (Grams per Kg): 1.4 Lower Protein Needs (Protein): 80 Upper Protein Needs (Protein): 94 Dietitian Reviewed in Medical Record: Curent medications, Intake & Output, Labs , Tube feeding Diet Order: TF'ing only: TF'ing Jevity 1.5 @ 50ml/hr Objective Comments: PMH: HLD, MSSA Bacteremia, COPD, CVA, Osteoporosis, Neuropathy Nursing wound assessment : Pressure Injury mid spine, lower back and sacrum 03/03 s/p Trach placement 02/28 s/p PEG placement 02/19 s/p extubation 02/10 s/p intubated Meds include: Vit C, Lipitor, Cordarone, Lactulose, Theragran, Lyrica, Beneprotein 1-pkt TID, free water flushes 300ml Q 6-hr Labs include: Glucose 115, POC glucose 129 +diarrhea-pt w/c-diff colitis; +UOP 1100ml Feeding - Current Tube Feeding Tube Feeding Product: Jevity 1.5 Tube Feeding Rate: 50 Tube Feeding Route: gastrostomy Current kCals Provided by Tube Feedin,800 Current Protein Provided by Tube Feeding (gPRO): 77 Current Free H2O Provided (m/l): 912 Assessment Assessment: Pt continues at nutritional risk r/t need for TF'ing and clinical status. Pt tolerating TF'ing w/Jevity 1.5 @ Rec goal rate of 50 ml/hr. Beneprotein 1-pkt TID provides additional 75 kcal and 18g Protein per day. Rec addition of a probiotic in setting of c-diff colitis. Wt changes noted. Free water flushes as ordered. Additional Recs r/t clinical course. Recommendations: 1. TF'ing w/Jevity 1.5 @ Rec goal rate of 50 ml/hr. 2. Beneprotein 1-pkt TID 3. Rec addition of a probiotic in setting of c-diff colitis 4. Free water flushes as ordered 5. Additional Recs r/t clinical course Dietitian to Monitor: Lab values, Intake & Output, Tube feeding tolerance, Weight change, Wound/skin status, Medical course
--- NOTE | 2018-03-11 04:21 | XR ---
EXAM DATE: 03/11/2018 3:40 AM EDT AGE/SEX: 62 years / Male INDICATIONS: Shortness of breath, possible pulmonary disease. CLINICAL DATA: This is the patient's subsequent encounter. Patient reports that signs and symptoms h ave been present for 1 month and indicates a pain score of Nonresponsive. MEDICAL/SURGICAL HISTORY: Stroke. Inguinal hernia repair. Aortic valve replacement. COMPARISON: [facility] – [place], CHEST 1V SINGLE AP, 03/08/2018. . FINDINGS: Bilateral pulmonary infiltrates persist but there is some improved aeration in the right upper lung. Dense airspace consolidation with probable effusions in the lung bases. Heart size is normal. Finding s of prior aortic valvular replacement. Intact median sternotomy wires. Tracheostomy tube is stable i n position CONCLUSION: 1. Persistent bibasilar airspace disease with associated effusions. 2. Improving aeration in the upper lungs, particularly on the right. Electronically signed by: Raza Ty MD 03/11/2018 4:19 AM EDT
[2018-03-11] MEDS: Oral Hygiene Kit OROPHARYNG SCH ×4 (04:34→23:56)
[2018-03-11 05:31] LABS: Baso % (Auto) 0.1 % (0.0-2.0); Eos % (Auto) 0.3 % (0.0-4.0); Hematocrit 26.2 % (39.0-51.0); Hemoglobin 8.6 gm/dL (13.0-17.0); Lymph # (Auto) 0.5 th/mm3 (1.0-4.8); Mean Corpuscular Hemoglobin 32.2 pg (27.0-34.0); Mean Corpuscular Volume 97.7 fL (80.0-100.0); Mean Platelet Volume 11.1 fL (7.0-11.0); Mono # (Auto) 0.2 th/mm3 (0.0-0.9); Mono % (Auto) 5.2 % (0.0-8.0); Neut # (Auto) 2.9 th/mm3 (1.8-7.7); Neut % (Auto) 80.4 % (16.0-70.0); Red Blood Count 2.68 mil/mm3 (4.50-5.90); Red Cell Distribution Width 23.8 % (11.6-17.2); White Blood Count 3.6 th/mm3 (4.0-11.0)
[2018-03-11 06:13] LABS: Alanine Aminotransferase 15 U/L (12-78); Albumin 1.9 g/dL (3.4-5.0); Alkaline Phosphatase 64 U/L (45-117); Anion Gap 10 meq/L (5-15); Aspartate Aminotransferase 34 U/L (15-37); Blood Urea Nitrogen 29 mg/dL (7-18); Calcium 7.3 mg/dL (8.5-10.1); Carbon Dioxide 19.9 meq/L (21.0-32.0); Chloride 112 meq/L (98-107); Glomerular Filtration Rate Greater Than 89 mL/min (>89); Glucose,Random 112 mg/dL (74-106); Magnesium 1.4 mg/dL (1.5-2.5); Phosphorus 1.7 mg/dL (2.5-4.9); Sodium 142 meq/L (136-145); Total Protein 5.8 g/dL (6.4-8.2)
[2018-03-11] MEDS: Insulin NovoLOG Aspart Correctional Sugar Inj SQ SCH ×3 (06:59→18:33)
[2018-03-11 07:20] LABS: Platelet Count 80 th/mm3 (150-450)
[2018-03-11] MEDS: Argatroban Inj 250 MG in Sodium Chlor 0.9% Inj 247.5 ML IV.CONT PRN (09:00)
[2018-03-11] MEDS: Amiodarone 200 MG Tablet G-TUBE SCH ×2 (09:24→20:37)
[2018-03-11] MEDS: Pregabalin 75 MG Capsule PO SCH ×2 (09:25→20:38)
[2018-03-11] MEDS: MethylPREDNISolone Sod Succinate Inj 40 MG/ML Vial IV.PUSH SCH (09:25)
[2018-03-11] MEDS: Ascorbic Acid 500 MG Tablet NG/OG SCH (09:25)
[2018-03-11] MEDS: Ferrrous Sulfate 300 MG/5 ML UDC PO SCH (09:25)
[2018-03-11] MEDS: Senna/Docusate Sodium 8.6/50 MG Tablet PO SCH ×2 (09:25→20:37)
[2018-03-11] MEDS: Hypromellose 0.3% Opth Gel 10 GM Bottle EACH EYE SCH ×2 (09:26→20:37)
[2018-03-11] MEDS: Chlorhexidine 0.12% Oral Kit 15 ML UDC OROPHARYNG SCH ×2 (09:26→20:37)
[2018-03-11] MEDS: Beneprotein Powder Packet G-TUBE SCH ×3 (09:26→17:58)
[2018-03-11] MEDS: Dextrose 5% in Water Inj 1,000 ML IV.CONT SCH (09:26)
[2018-03-11] MEDS ORDERED: Sodium Phosphate Inj 30 MMOL in Sodium Chlor 0.9% Inj 250 ML IV.SIG ONE (09:44)
[2018-03-11] MEDS ORDERED: Magnesium Sulfate Inj 2 GM in Sodium Chlor 0.9% Inj 96 ML IV.SIG ONE (09:44)
--- NOTE | 2018-03-11 09:49 | P.PNCC ---
Subjective Subjective Remarks/Hospital Course: 62-year-old male with past medical history of [place] mechanical aortic valve (09/21/12 Dr. Gonzalez), on chronic anticoagulation with warfarin, atrial fibrillation postop from AVR , COPD on 2.5 L home O2, stroke in 2015 resulting in left-sided sensory deficits and neuropathy, osteoporosis with chronic low back pain. He was recently admitted to [facility] from 01/23 through 01/31/18 for MSSA bacteremia. It is believed that the original source of infection was a wound on his right index finger when electric drill slipped and created a puncture wound. He was discharged with right upper extremity PICC line receiving cefazolin 2 g IV every 8 hours and gentamicin 210 mg IV daily. He states that home health administered antibiotics at 17:00 and shortly thereafter he began having chills and rigors and sought medical attention at [facility]. He had no rash. Upon arrival, he was hypotensive in the low 80s. He was given 2 L S bolus but remained hypotensive so was started on Levophed. He then developed heart rate in the 140s, reportedly atrial flutter so he was started on Amiodarone drip in [place] and converted to sinus rhythm. He was transfused 2 units PRBC due to Hgb 9.3. His stool was nonbloody nonmelena but was Hemoccult positive. He was given zosyn and vancomycin. Critical care medicine was then contacted and accepted patient for transfer to [facility]. He denies tenderness/redness/drainage at PICC site. Aside from mechanical aortic valve, he has no other hardware or indwelling devices. He denies headache, cough, dysuria. He has had a few loose stools at home, but stools have sometimes been formed. He denies chest pain, does report some SOB. EKG at [place] had marked inferolateral ischemic changes. Obtained EKG upon arrival to [facility] which is improved. SUBJ 02/05: Patient remains critical ill appearing, complaints of chest tightness but denies pain. Remains on 8 mcg/min of Levophed to maintain map about 65. However increasing shortness of breath. Chest x-ray shows increasing pulmonary edema. Troponin was 27.5 currently on IV heparin therapeutic. Cardiology consult is pending at this time. I will stop on maintenance fluids give 40 mg IV Lasix and IV albumin 25 g 1. Patient is very critical patient and updated at the bedside 02/06: to blood and plasma laboratory assistant last night for [facility] with LAD stent complicated by vasospasm of the LAD. IABP placed. patient emergently intubated for acute hypoxic respiratory failure secondary to cardiogenic shock and pulmonary edema. started on milrinone at 0.375 mcg/kg/min and levophed. bumex drip started. remains critically ill. 02/07: Remains critically ill remains on Levophed and milrinone. Currently diuresing well with Bumex drip. IABP in place management per cardiology-good waveform and augmentation. Chest x-ray shows adequate positioning of IABP, diffuse bilateral pulmonary edema 02/08: Remains critical but showing some signs of improvement. Diuresing very well on Bumex infusion. Remains on Levophed and milrinone. IABP one-to-one with good augmentation management per cardiology. Chest x-ray shows improving edema but with persistent bilateral effusions. Will initiate weaning trials if tolerated 02/09: Still remains on pressors, unable to wean Levophed below 2 mcg/min. Milrinone currently on 0.375 mcg/kg/min. IABP removed yesterday. On sedation hold patient wakes up but remains lethargic. Weakly squeezes hand. Urine output excellent on Bumex, 4 L output in 24 hours. Will attempt CPAP today 02/10: Multiple episodes of V. fib V. tach arrest yesterday morning. Successfully resuscitated. Yesterday night had two-minute V. fib arrest return of spontaneous circulation in sinus rhythm after DC cardioversion 1. Currently remains on milrinone and low-dose Levophed. I will try to wean off Levophed introduce low-dose beta-rasheed due to recurrent arrhythmia. Keep potassium more than 4 magnesium more than 2 02/11: Patient still critical and cardiogenic shock requiring Levophed and milrinone. Urine output improved with adding Diamox. Approximately 2 L urine output in 24 hours, creatinine remained stable. Oxygenation slightly improved FiO2 reduced to 70% now. Overall prognosis remains poor family wants to continue aggressive care 02/12: Remains critical but slight improvement in oxygenation. But continues to require Levophed and milrinone the low-dose. Urine output remains adequate. Chest x-ray shows interval improvement. Creatinine remains stable to slightly improved. Add IV albumin to improve blood pressure and to promote diuresis. 02/13 Patient remains intubated and sedated with Versed and fentanyl. Afebrile, off Levophed remains on Milrinone and Heparin drip. 02/14: Hypothermic overnight. Remains on milrinone and heparin drips. Tolerating tube feeds at 20 cc now. Positive BM. No changes neurologically 02/15 Patient remains sedated with Versed and Fentanyl drips, on Milrinone 0.5. 02/16 Patient remains intubated sedated with Versed and Fentanyl infusion. On Milrinone and Heparin drips. CT brain yesterday showed no acute findings. Afebrile. 02/17 Patient remains sedated and intubated. Afebrile, On Milrinone and Heparin drip. 02/18: Remains critical continues to require milrinone. Urine output adequate. Chest x-ray shows bilateral infiltrate effusion. CT chest to better define effusions and infiltrate. Increase Bumex to 1 mg every 8 hours. Patient is persistently weak, will attempt SBT unlikely to be successfully extubated at this time. Most likely will need tracheostomy if family desires aggressive care 02/19: Remains intubated sedated with Versed and fentanyl. Transition to Precedex to facilitate weaning trials. Patient responding slightly more to verbal command, appears to track even though not following commands. Creatinine slightly increased with increased diuresis. Chest x-ray shows improved pleural effusions. CT chest yesterday did not show significant effusion but basilar consolidation. 02/20 Patient was extubated yesterday on 10L simple mask, on Precdex, Heparin and Milrinone drips. Tmax 101.1 yesterday 02/21: Febrile. Currently on 5 L nasal cannula. Continues on heparin drip with 500 units an hour. Received bumetanide 1 mg 1 today. Positive BM 02/22: Remains on 5 L nasal cannula. Remains on heparin drip. No changes neurologically remains medically stable. 02/23: Intubated early this morning secondary to acute respiratory failure. Blood pressure marginal likely due to sedation. Ejection fraction less than 20% . Discussed with at bedside. She was to proceed with tracheostomy in PEG tube placement. We will plan for within the next few days. 02/24: Remains sedated, orally intubated on mechanical ventilation. 02/25: Remains sedated, orally intubated on mechanical ventilation. Worsening renal function noted. Check UA, urine sodium and creatinine. Ordered Kayexalate for hyperkalemia and nephrology consulted. 02/26: Sedated, arousable, orally intubated on mechanical ventilation. Will hold Plavix for planned tracheostomy and PEG tube placement. Remains on heparin for anticoagulation. 02/27: Drowsy, arousable, orally intubated on mechanical ventilation. Awaiting tracheostomy and PEG tube placement. 02/28: Drowsy, arousable, remains orally intubated on mechanical ventilation. PEG tube scheduled for today. 03/01: Drowsy, arousable, remains orally intubated on mechanical ventilation. Underwent PEG tube placement on 02/28. Worsening thrombocytopenia noted and now down to 50,000. Will continue holding Plavix and heparin. Check HIT screen and consult hematology. Awaiting tracheostomy 03/02: Drowsy, arousable, remains orally intubated on mechanical vent relation. Hematology consult noted. 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 03/03: Intubated remains heavily sedated. Was unable to wean off the ventilator , became hypoxemic on CPAP yesterday. 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 Will transfuse 3 packed units of platelets prior to tracheostomy planned for 11 AM today. Platelet count 49,000 03/04 Trached yesterday. Had high residuals earlier today (500 mL) and tube feeds placed on hold. KUB unremarkable. Given reglan, now residual is 10 so resuming tube feeds. On CPAP via trach. Remains sedated on fentanyl and versed, will wean. 03/05 Bleeding at trach site overnight, argatroban was placed on hold. Hgb stable 7.4, platelet count 70k. Surgicell has been ordered but has not yet been applied. Off versed, fentanyl drip still running 50 mcg. He is more alert today , communicates his need to have his mouth suctioned. 03/06: No events over the night. T-max of 98.7. Urine output greater than 4 L over the last 24 hours. 03/07: Patient remains afebrile, with a T-max of 98.5. Urine output 2350 mL's over the last 24 hours. No acute events over the night. Patient is currently on CPAP trial 04/21 with respiratory rate in the mid to high teens with tidal volumes 3-400, comfortable. 03/08: No events over the night. Patient tolerated T piece yesterday and he was placed back on CPAP last night. This morning he is back on T piece. He is easily arousable and following some commands. He is complaining of back pain. T-max of 99.2, urine output of 2450 mL's over the last 24 hours. 03/09: Patient tolerated T piece yesterday and he was placed back on CPAP at night. This morning he is sleeping, easily arousable. No other events over the night. T-max of 99.2. I/O 1100/1000. Still having significant amount of diarrhea. 03/10: No events over the night. Patient currently on CPAP 04/21 doing well. T- max of 99.4. I/O 3233/2600. No bleeding upon suction. Still having diarrhea. He is awake, alert, complains of back pain. Subjective: 03/11: No events over the night. Patient was on CPAP 04/21 over the night. Being switched to T-piece this morning. He is resting comfortable, in no distress. T-max of 98.7 over the last 24 hours. Objective Vital Signs / I&O: Vital Signs 03/10/18 10:00 03/10/18 12:00 03/10/18 14:00 Temperature 97.7 F Pulse Rate 83 86 86 Respiratory Rate 22 Blood Pressure 115/71 Pulse Oximetry 96 03/10/18 16:00 03/10/18 18:00 03/10/18 20:00 Temperature 98.4 F 98.7 F Pulse Rate 87 90 81 Respiratory Rate 30 H 20 Blood Pressure 106/65 106/68 Pulse Oximetry 92 L 95 03/10/18 21:33 03/10/18 22:00 03/11/18 00:00 Temperature 98.4 F Pulse Rate 85 85 Respiratory Rate 26 H 22 Blood Pressure 99/61 L Pulse Oximetry 100 99 03/11/18 02:00 03/11/18 02:24 03/11/18 04:00 Temperature 98.4 F Pulse Rate 89 91 H Respiratory Rate 25 H Blood Pressure 126/78 Pulse Oximetry 99 100 03/11/18 05:00 03/11/18 06:00 03/11/18 09:18 Temperature Pulse Rate 85 Respiratory Rate 26 H Blood Pressure Pulse Oximetry 100 100 Intake & Output 03/10/18 03/11/18 03/11/18 18:59 06:59 18:59 Intake Total 2238 / 2238 4033 / 4033 650 / 650 Output Total 1300 / 1300 2150 / 2150 Balance 938 / 938 1883 / 1883 650 / 650 Weight 64 kg Intake: IV 1050 / 1050 300 / 300 650 / 650 D5W Inj 1,000 ML @ 42 mls/hr IV 650 / 650 650 / 650 .CONT .[id number] ADRIEN Rx#:[id number] Azactam Inj 1,000 MG In NS Inj 300 / 300 200 / 200 100 ML @ 200 mls/hr IV.SIG Q6H ADRIEN Rx#:[id number] Ancef Inj 1,000 MG In NS Inj 100 / 100 100 / 100 100 ML @ 200 mls/hr IV.SIG Q12H ADRIEN Rx#:[id number] Oral 0 / 0 0 / 0 Oral Supplement 170 / 170 Tube Feeding 588 / 588 510 / 510 Tube Irrigant 100 / 100 Water Bolus Amount 600 / 600 600 / 600 Other 2353 / 2353 Output: Urine 1100 / 1100 Stool 300 / 300 250 / 250 Urine Amount (Catheter) 1000 / 1000 800 / 800 Indwelling Urethral Catheter 1000 / 1000 800 / 800 Other: # Voids 3 # Incontinent Voids 2 Date of Last Bowel Movement 03/10/18 03/11/18 Result Diagrams: 03/11/18 05:00 03/11/18 05:00 Objective Remarks: GENERAL: Elderly gentleman, awake, alert, ill-appearing, on vent. HEENT: Pupils are equal and reactive, sclera anicteric. Trach in place. No JVD. CARDIOVASCULAR: Regular heart sounds, no murmurs appreciated. RESPIRATORY: Scattered coarse breath sounds bilateral. No wheezes. Good air entry. GASTROINTESTINAL: Abdomen soft, not tender, not distended, bowel sounds are present. PEG in in place. MUSCULOSKELETAL: Extremities with bilateral trace lower extremity edema. Peripheral pulses are present. Tepid. NEURO: Awake, alert, following commands. Wiggles toes bilaterally and moves right upper extremity. Assessment and Plan - Assessment and Plan Plan: NEURO/PSYCH: History of stroke in 2015 Neuropathy left upper and lower extremity Chronic low back pain Continue ASA 81 mg daily. Continue pregabalin 150 mg p.o. twice daily. Holding duloxetine 90 mg p.o. daily. 02/15 CT brain: No acute findings. 02/15 EEG : Encephalopathy, no epileptiform activity MRI brain 02/16: New small focal acute infarction right cerebral vertex and also left cerebral vertex. Neuro has followed. RESP: Acute hypoxic respiratory failure -unchanged, on minimal O2 requirements, tolerating T piece during daytime and CPAP at night COPD on 2.5 L home O2 Prior tobacco abuse Bilateral pleural effusions Perc trach 03/03. T-piece during daytime and CPAP at night as tolerated Albuterol/ipratropium aerosols every 4 hours with albuterol aerosols every 2 hours as needed for dyspnea Vent bundle Patient has been on methylprednisolone succinate 40mg IV daily. Decreased to 20 mg IV daily starting 03/07 -slow taper since he was on steroids for a long time CV: V. tach/V. fib arrest -resolved NSTEMI Cardiogenic shock -resolved Acute systolic heart failure Atrial fibrillation with RVR [place] mechanical aortic valve (09/21/12 Dr. Gonzalez) s/p Tricuspid annuloplasty On amiodarone 400mg BID, carvedilol 3.125mg BID Continue aspirin 81 mg daily Clopidogrel is on hold since 02/26 for trach and PEG and will resume when plt > 80 per hematology Continue atorvastatin 40 mg nightly. Spironolactone stopped in v/o hyperkalemia on 02/25 s/p cath And PCI -proximal LAD and large diagonal 90% stenosis, 2 BMS stent 02/05, mid LAD vasospasm post PCI Off IABP 02/08/18 [place] 01/23/18no vegetation. Normal aortic mechanical valve with trivial aortic insufficiency. Tricuspid annuloplasty. 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 Status post PEG tube placement Lansoprazole for stress ulcer prophylactic Had normal EGD on 10/21/17 FEN/RENAL: Acute kidney injury -creatinine is improved urine output is appropriate Hypopotassemia Hypernatremia BPH Hypomagnesemia Hypo-phosphatemia Today's electrolytes are pending Continue D5W at 50 mls per hour for now Monitor renal function, I/O's, creatinine slowly improving. Renal ultrasound to evaluate for evidence of obstruction -did not show any obstruction Discontinued bumetanide 1mg IV daily , spironolactone 25 mg twice daily stopped on 02/25 due to hyperkalemia and worsening renal function.. 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 difficile colitis -still having diarrhea Funguria Discontinued IV vancomycin and gentamicin 02/20. Cefepime IV discontinued on and patient started on aztreonam and Ancef IV Currently on aztreonam, cefazolin and p.o. Vanco Fluconazole was discontinued by ID on 03/07 C.diff tx: po vanco 02/11/18. 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 Continue holding Plavix and heparin. Hematology consulted for worsening thrombocytopenia. 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 Bleeding from trach resolved with surgicell. Resumed argatroban 03/05. RITA pending. 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 Now on argatroban. Protonix for stress ulcer prophylaxis ACCESS: Left IJ central line placed 02/05/18. Now removed and PIV in place. Palliative care is following. No family present at bedside. Level 2 follow-up
--- NOTE | 2018-03-11 11:49 | P.PNONC ---
Subjective Interval history: Afebrile Patient continues to cough up large amount of sputum Denies any bleeding Denies pain Objective Vital Signs/Intake & Output: Vital Signs 03/10/18 12:00 03/10/18 14:00 03/10/18 16:00 Temperature 97.7 F 98.4 F Pulse Rate 86 86 87 Respiratory Rate 22 30 H Blood Pressure 115/71 106/65 Pulse Oximetry 96 92 L 03/10/18 18:00 03/10/18 20:00 03/10/18 21:33 Temperature 98.7 F Pulse Rate 90 81 Respiratory Rate 20 26 H Blood Pressure 106/68 Pulse Oximetry 95 100 03/10/18 22:00 03/11/18 00:00 03/11/18 02:00 Temperature 98.4 F Pulse Rate 85 85 89 Respiratory Rate 22 Blood Pressure 99/61 L Pulse Oximetry 99 03/11/18 02:24 03/11/18 04:00 03/11/18 05:00 Temperature 98.4 F Pulse Rate 91 H 87 Respiratory Rate 25 H 27 H Blood Pressure 126/78 102/60 Pulse Oximetry 99 100 100 03/11/18 05:15 03/11/18 05:30 03/11/18 05:45 Temperature Pulse Rate 89 79 81 Respiratory Rate 27 H 26 H 23 Blood Pressure 102/61 99/58 L 101/63 Pulse Oximetry 100 100 100 03/11/18 06:00 03/11/18 06:15 03/11/18 06:30 Temperature Pulse Rate 83 85 85 Respiratory Rate 23 25 H 22 Blood Pressure 103/64 101/62 97/58 L Pulse Oximetry 100 100 100 03/11/18 06:45 03/11/18 07:00 03/11/18 07:15 Temperature Pulse Rate 82 84 83 Respiratory Rate 22 22 23 Blood Pressure 95/59 L 100/64 100/62 Pulse Oximetry 100 100 100 03/11/18 07:30 03/11/18 07:45 03/11/18 08:00 Temperature Pulse Rate 77 92 H 84 Respiratory Rate 23 23 22 Blood Pressure 102/65 97/61 L 98/58 L Pulse Oximetry 100 100 100 03/11/18 08:15 03/11/18 08:30 03/11/18 08:45 Temperature Pulse Rate 82 83 85 Respiratory Rate 21 20 21 Blood Pressure 98/60 L 101/58 L 102/61 Pulse Oximetry 100 100 100 03/11/18 09:00 03/11/18 09:15 03/11/18 09:18 Temperature Pulse Rate 83 93 H Respiratory Rate 22 26 H Blood Pressure 104/61 102/61 Pulse Oximetry 100 98 100 03/11/18 09:30 03/11/18 09:45 03/11/18 10:00 Temperature Pulse Rate 82 82 83 Respiratory Rate 23 24 26 H Blood Pressure 102/62 94/54 L 106/61 Pulse Oximetry 100 100 100 03/11/18 10:15 03/11/18 10:30 03/11/18 10:45 Temperature Pulse Rate 83 83 83 Respiratory Rate 26 H 26 H 25 H Blood Pressure 107/61 106/62 98/53 L Pulse Oximetry 100 100 100 03/11/18 11:00 Temperature Pulse Rate 83 Respiratory Rate 24 Blood Pressure 95/55 L Pulse Oximetry 100 Intake & Output 03/10/18 03/11/18 03/11/18 18:59 06:59 18:59 Intake Total 2238 / 2238 4033 / 4033 650 / 650 Output Total 1300 / 1300 2150 / 2150 Balance 938 / 938 1883 / 1883 650 / 650 Weight 141 lb 1.533 oz Intake: IV 1050 / 1050 300 / 300 650 / 650 D5W Inj 1,000 ML @ 42 mls/hr IV 650 / 650 650 / 650 .CONT .[id number] [facility] Rx#:[id number] Azactam Inj 1,000 MG In NS Inj 300 / 300 200 / 200 100 ML @ 200 mls/hr IV.SIG Q6H [facility] Rx#:[id number] Ancef Inj 1,000 MG In NS Inj 100 / 100 100 / 100 100 ML @ 200 mls/hr IV.SIG Q12H [facility] Rx#:[id number] Oral 0 / 0 0 / 0 Oral Supplement 170 / 170 Tube Feeding 588 / 588 510 / 510 Tube Irrigant 100 / 100 Water Bolus Amount 600 / 600 600 / 600 Other 2353 / 2353 Output: Urine 1100 / 1100 Stool 300 / 300 250 / 250 Urine Amount (Catheter) 1000 / 1000 800 / 800 Indwelling Urethral Catheter 1000 / 1000 800 / 800 Other: # Voids 3 # Incontinent Voids 2 Date of Last Bowel Movement 03/10/18 03/11/18 03/10/18 Result Diagrams: 03/11/18 05:00 03/11/18 05:00 Laboratory Results: Laboratory Results - last 24 hr 03/10/18 03/10/18 03/10/18 12:26 12:26 12:26 WBC 4.7 RBC 3.10 L Hgb 9.8 L Hct 31.1 L MCV 100.4 H MCH 31.5 MCHC 31.4 L RDW 24.2 H Plt Count 78 L MPV 11.6 H Prelim Diff (Auto) Slide review pending Neut % (Auto) 90.4 H Lymph % (Auto) 5.1 L [place] % (Auto) 4.1 Eos % (Auto) 0.1 Baso % (Auto) 0.3 Neut # (Auto) 4.2 Lymph # (Auto) 0.2 L [place] # (Auto) 0.2 Eos # (Auto) 0.0 Baso # (Auto) 0.0 WBC Differential . Diff Scan Auto diff confirmed Differential Comment . Platelet Estimate Low L Platelet Morphology Enlarged H APTT 45.5 H D Sodium 143 Potassium 3.7 Chloride 110 H D Carbon Dioxide 21.4 Anion Gap 12 BUN 31 H Creatinine 0.88 Estimated GFR 87 L POC Glucose Random Glucose 115 H Calcium 7.7 L Prot Corrected Calcium Phosphorus 1.9 L Magnesium 1.8 Total Bilirubin 0.4 AST 43 H ALT 16 Alkaline Phosphatase 69 Total Protein 6.5 D Albumin 2.2 L 03/10/18 03/10/18 03/10/18 12:28 16:53 17:26 WBC RBC Hgb Hct MCV MCH MCHC RDW Plt Count MPV Prelim Diff (Auto) Neut % (Auto) Lymph % (Auto) [place] % (Auto) Eos % (Auto) Baso % (Auto) Neut # (Auto) Lymph # (Auto) [place] # (Auto) Eos # (Auto) Baso # (Auto) WBC Differential Diff Scan Differential Comment Platelet Estimate Platelet Morphology APTT 63.6 H D Sodium Potassium Chloride Carbon Dioxide Anion Gap BUN Creatinine Estimated GFR POC Glucose 129 H 280 H Random Glucose Calcium Prot Corrected Calcium Phosphorus Magnesium Total Bilirubin AST ALT Alkaline Phosphatase Total Protein Albumin 03/10/18 03/11/18 03/11/18 23:07 05:00 05:00 WBC 3.6 L RBC 2.68 L Hgb 8.6 L Hct 26.2 L MCV 97.7 MCH 32.2 MCHC 33.0 RDW 23.8 H Plt Count 80 L MPV 11.1 H Prelim Diff (Auto) Slide review pending Neut % (Auto) 80.4 H Lymph % (Auto) 14.0 [place] % (Auto) 5.2 Eos % (Auto) 0.3 Baso % (Auto) 0.1 Neut # (Auto) 2.9 Lymph # (Auto) 0.5 L [place] # (Auto) 0.2 Eos # (Auto) 0.0 Baso # (Auto) 0.0 WBC Differential . Diff Scan Auto diff confirmed Differential Comment . Platelet Estimate Low L Platelet Morphology Enlarged H APTT Sodium 142 Potassium 4.0 Chloride 112 H Carbon Dioxide 19.9 L Anion Gap 10 BUN 29 H Creatinine 0.86 Estimated GFR Greater than 89 POC Glucose 134 H Random Glucose 112 H Calcium 7.3 L* Prot Corrected Calcium 8.0 L Phosphorus 1.7 L Magnesium 1.4 L Total Bilirubin 0.3 AST 34 ALT 15 Alkaline Phosphatase 64 Total Protein 5.8 L D Albumin 1.9 L 03/11/18 05:00 WBC RBC Hgb Hct MCV MCH MCHC RDW Plt Count MPV Prelim Diff (Auto) Neut % (Auto) Lymph % (Auto) [place] % (Auto) Eos % (Auto) Baso % (Auto) Neut # (Auto) Lymph # (Auto) [place] # (Auto) Eos # (Auto) Baso # (Auto) WBC Differential Diff Scan Differential Comment Platelet Estimate Platelet Morphology APTT 57.2 H Sodium Potassium Chloride Carbon Dioxide Anion Gap BUN Creatinine Estimated GFR POC Glucose Random Glucose Calcium Prot Corrected Calcium Phosphorus Magnesium Total Bilirubin AST ALT Alkaline Phosphatase Total Protein Albumin Imaging Studies: Impressions Chest X-Ray 03/11/18 00:00 CONCLUSION: 1. Persistent bibasilar airspace disease with associated effusions. 2. Improving aeration in the upper lungs, particularly on the right. Medications: Active Medications Generic Name Dose Route Start Last Admin Trade Name Freq PRN Reason Stop Dose Admin Acetaminophen 650 mg 02/14/18 09:23 02/19/18 15:18 Tylenol Liq PO 650 mg Q6H PRN Administration FEVER Hydrocodone Bitart/Acetaminophen 1 tab 03/05/18 08:11 03/10/18 08:34 [place] 7.5/325 PO 1 tab Q4H PRN Administration pain 1-10 Albuterol 2.5 mg 02/05/18 00:00 03/10/18 06:51 Albuterol Neb (Prn) NEB 2.5 mg Q2HR NEB PRN Administration SHORTNESS OF BREATH/WHEEZING Amiodarone HCl 400 mg 02/11/18 12:00 03/11/18 09:24 Cordarone G-TUBE 400 mg BID [facility] Administration Artificial Tears 1 drops 02/14/18 21:00 03/11/18 09:26 [place] Severe Dry Eye Relief 0.3% Opth Gel EACH EYE 1 drops BID [facility] Administration Ascorbic Acid 500 mg 02/15/18 09:00 03/11/18 09:25 Vitamin C NG/OG 500 mg DAILY [facility] Administration Aspirin 81 mg 02/06/18 09:00 03/11/18 09:25 Aspirin Chew PO 81 mg DAILY [facility] Administration Atorvastatin Calcium 40 mg 02/05/18 21:00 03/10/18 21:05 Lipitor PO 40 mg HS [facility] Administration Chlorhexidine Gluconate 15 ml 02/06/18 08:00 03/11/18 09:26 Peridex 0.12% Oral Kit OROPHARYNG 15 ml BID@0800,2000 [facility] Administration Clopidogrel Bisulfate 75 mg 02/06/18 09:00 02/25/18 09:13 Plavix PO 75 mg DAILY [facility] Administration Dextrose 50 ml 02/13/18 09:27 03/01/18 06:02 D50w Vial IV.PUSH 50 ml UNSCH PRN Administration PER HYPOGLYCEMIA PROTOCOL Digoxin 250 mcg 02/07/18 09:00 02/11/18 15:41 Lanoxin Inj IV.PUSH Not Given DAILY [facility] Duloxetine HCl 90 mg 02/05/18 09:00 02/11/18 11:18 Cymbalta PO Not Given DAILY [facility] Ferrous Sulfate 300 mg 02/15/18 09:00 03/11/18 09:25 Ferrrous Sulfate Liq PO 300 mg DAILY [facility] Administration Aztreonam 1,000 mg/ Sodium 100 mls @ 200 mls/hr 02/28/18 20:00 03/11/18 09:26 Chloride IV.SIG 200 mls/hr Q6H [facility] Administration Argatroban 250 mg/ Sodium 250 mls @ 7.56 mls/hr 03/02/18 15:00 03/10/18 14:22 Chloride IV.CONT 2 mcg/kg/min TITRATE PRN 7.56 mls/hr Per Protocol Titration Protocol 2 MCG/KG/MIN Dextrose 1,000 mls @ 42 mls/hr 03/09/18 09:15 03/11/18 09:26 D5w Inj IV.CONT 42 mls/hr .[id number] [facility] Administration Cefazolin Sodium 1,000 mg/ 100 mls @ 200 mls/hr 03/10/18 23:00 03/11/18 11:42 Sodium Chloride IV.SIG 200 mls/hr Q12H [facility] Administration Insulin Aspart 0 unit 02/13/18 12:00 03/11/18 06:59 Novolog Insulin Correctional Sugar Inj SQ Not Given Q6HR [facility] Protocol Lactulose 30 ml 02/05/18 00:00 02/05/18 08:38 Lactulose Liq PO 30 ml DAILY PRN Administration SEVERE CONSITIPATION Lansoprazole 30 mg 02/15/18 09:00 03/11/18 09:25 Prevacid Solutab NG/OG 30 mg DAILY [facility] Administration Methylprednisolone Sodium Succinate 20 mg 03/07/18 11:47 03/11/18 09:25 Solumedrol Inj IV.PUSH 20 mg DAILY [facility] Administration Morphine Sulfate 4 mg 03/05/18 08:12 03/07/18 03:35 Morphine Inj IV.PUSH 4 mg Q3H PRN Administration breakthrough pain Multivitamins 1 tab 02/05/18 09:00 03/11/18 09:25 Theragran PO 1 tab DAILY [facility] Administration Pregabalin 150 mg 02/04/18 23:50 03/11/18 09:25 Lyrica PO 150 mg BID [facility] Administration Senna/Docusate Sodium 1 tab 02/05/18 09:00 03/11/18 09:25 Linda-Colace PO 1 tab BID [facility] Administration Sodium Chloride 2 ml 02/05/18 09:00 03/11/18 09:26 Ns Flush IV.FLUSH 2 ml BID [facility] Administration Sterile Water 300 ml 03/02/18 18:00 03/11/18 05:38 Free Water G-TUBE 300 ml Q6HR [facility] Administration Vancomycin HCl 500 mg 02/11/18 16:00 03/11/18 11:43 Vancomycin Po G-TUBE 500 mg Q6HR [facility] Administration Whey 1 packet 02/08/18 13:00 03/11/18 09:26 Beneprotein Powder G-TUBE 1 packet TID [facility] Administration Objective Remarks: GENERAL: Chronically ill-appearing older male patient, alert, in no acute distress. SKIN: Warm and dry. HEAD: Normocephalic. EYES: No scleral icterus. No injection or drainage. NECK: Tracheostomy midline. No bleeding/oozing noted at tracheostomy site. CARDIOVASCULAR: Regular rate and rhythm without murmurs. RESPIRATORY: Anterior breath sounds clear, equal bilaterally. Currently on trach collar GASTROINTESTINAL: Abdomen soft, non-tender, distended. PEG tube LUQ. EXTREMITIES: No cyanosis, bilateral SCD's and boot supports in place. MUSCULOSKELETAL: Generalized weakness NEUROLOGICAL: Patient with good eye contact. Awake and alert. Assessment/Plan - Plan 62-year-old male admitted to the hospital in late January for fever and hypotension. He was found to have septic shock. He has C. difficile colitis. Hematology consulted for thrombocytopenia. 1. RITA negative. No bleeding on the argatroban drip. LFTs stable. 2. Patient will need long-term anticoagulation due to history of mechanical valve. Plan for bridge to Coumadin likely early next week. 3. Continue to monitor CBC, coags and liver functions. 4. Supportive care - Attending Statement The exam, history, and the medical decision-making described in the above note were completed with the assistance of the mid-level provider. I reviewed and agree with the findings presented. I attest that I had a [id number] encounter with the patient on the same day, and personally performed and documented my assessment and findings in the medical record. No report of bleeding. Platelet count has trended up to 80,000. Tolerating Argatroban well. Plan to transition to oral Coumadin once he is able to tolerate oral intake.
--- NOTE | 2018-03-11 14:22 | P.PNID ---
Subjective Remarks: off the vent' tolerating Tpiece cont to have liquid stool up to 200 cc/shift afebrile WBC low primarily from lymphopenia Antibiotics: azactam cefazolin oral vanco fluconazol on IV solumedrol Allergies/Adverse Reactions: Allergies No Known Allergies Allergy (Verified 02/04/18 18:10) Objective Vital Signs 03/10/18 16:00 03/10/18 18:00 03/10/18 20:00 Temperature 98.4 F 98.7 F Pulse Rate 87 90 81 Respiratory Rate 30 H 20 Blood Pressure 106/65 106/68 Pulse Oximetry 92 L 95 03/10/18 21:33 03/10/18 22:00 03/11/18 00:00 Temperature 98.4 F Pulse Rate 85 85 Respiratory Rate 26 H 22 Blood Pressure 99/61 L Pulse Oximetry 100 99 03/11/18 02:00 03/11/18 02:24 03/11/18 04:00 Temperature 98.4 F Pulse Rate 89 91 H Respiratory Rate 25 H Blood Pressure 126/78 Pulse Oximetry 99 100 03/11/18 05:00 03/11/18 05:15 03/11/18 05:30 Temperature Pulse Rate 87 89 79 Respiratory Rate 27 H 27 H 26 H Blood Pressure 102/60 102/61 99/58 L Pulse Oximetry 100 100 100 03/11/18 05:45 03/11/18 06:00 03/11/18 06:15 Temperature Pulse Rate 81 83 85 Respiratory Rate 23 23 25 H Blood Pressure 101/63 103/64 101/62 Pulse Oximetry 100 100 100 03/11/18 06:30 03/11/18 06:45 03/11/18 07:00 Temperature Pulse Rate 85 82 84 Respiratory Rate 22 22 22 Blood Pressure 97/58 L 95/59 L 100/64 Pulse Oximetry 100 100 100 03/11/18 07:15 03/11/18 07:30 03/11/18 07:45 Temperature Pulse Rate 83 77 92 H Respiratory Rate 23 23 23 Blood Pressure 100/62 102/65 97/61 L Pulse Oximetry 100 100 100 03/11/18 08:00 03/11/18 08:15 03/11/18 08:30 Temperature Pulse Rate 84 82 83 Respiratory Rate 22 21 20 Blood Pressure 98/58 L 98/60 L 101/58 L Pulse Oximetry 100 100 100 03/11/18 08:45 03/11/18 09:00 03/11/18 09:15 Temperature Pulse Rate 85 83 93 H Respiratory Rate 21 22 26 H Blood Pressure 102/61 104/61 102/61 Pulse Oximetry 100 100 98 03/11/18 09:18 03/11/18 09:30 03/11/18 09:45 Temperature Pulse Rate 82 82 Respiratory Rate 23 24 Blood Pressure 102/62 94/54 L Pulse Oximetry 100 100 100 03/11/18 10:00 03/11/18 10:15 03/11/18 10:30 Temperature Pulse Rate 83 83 83 Respiratory Rate 26 H 26 H 26 H Blood Pressure 106/61 107/61 106/62 Pulse Oximetry 100 100 100 03/11/18 10:45 03/11/18 11:00 03/11/18 11:15 Temperature Pulse Rate 83 83 84 Respiratory Rate 25 H 24 26 H Blood Pressure 98/53 L 95/55 L 99/56 L Pulse Oximetry 100 100 100 03/11/18 11:30 03/11/18 11:45 03/11/18 12:00 Temperature Pulse Rate 85 88 86 Respiratory Rate 27 H 29 H 28 H Blood Pressure 97/57 L 101/59 L 99/58 L Pulse Oximetry 100 98 99 03/11/18 12:15 03/11/18 12:30 03/11/18 12:45 Temperature Pulse Rate 90 85 85 Respiratory Rate 30 H 26 H 29 H Blood Pressure 99/60 L 105/65 108/65 Pulse Oximetry 97 99 100 03/11/18 14:00 Temperature Pulse Rate 79 Respiratory Rate Blood Pressure Pulse Oximetry Intake & Output 03/10/18 03/11/18 03/11/18 18:59 06:59 18:59 Intake Total 2238 / 2238 4033 / 4033 1623 / 1623 Output Total 1300 / 1300 2150 / 2150 Balance 938 / 938 1883 / 1883 1623 / 1623 Weight 64 kg Intake: IV 1050 / 1050 300 / 300 1623 / 1623 Novastan Inj 250 MG In NS Inj 213 / 213 247.5 ML @ 2 MCG/KG/MIN 7.56 mls/hr IV.CONT TITRATE PRN Rx#: [id number] D5W Inj 1,000 ML @ 42 mls/hr IV 650 / 650 650 / 650 .CONT .[id number] [facility] Rx#:[id number] Azactam Inj 1,000 MG In NS Inj 300 / 300 200 / 200 100 / 100 100 ML @ 200 mls/hr IV.SIG Q6H [facility] Rx#:[id number] Magnesium Sulfate Inj 2 GM In 100 / 100 NS Inj 96 ML @ 50 mls/hr IV.SIG ONCE ONE Rx#:[id number] Ancef Inj 1,000 MG In NS Inj 100 / 100 100 / 100 100 / 100 100 ML @ 200 mls/hr IV.SIG Q12H [facility] Rx#:[id number] Oral 0 / 0 0 / 0 Oral Supplement 170 / 170 Tube Feeding 588 / 588 510 / 510 Tube Irrigant 100 / 100 Water Bolus Amount 600 / 600 600 / 600 Other 2353 / 2353 Output: Urine 1100 / 1100 Stool 300 / 300 250 / 250 Urine Amount (Catheter) 1000 / 1000 800 / 800 Indwelling Urethral Catheter 1000 / 1000 800 / 800 Other: # Voids 3 # Incontinent Voids 2 Date of Last Bowel Movement 03/10/18 03/11/18 03/10/18 Lab - Hematology Results 03/10/18 03/11/18 12:26 05:00 WBC 4.7 3.6 L RBC 3.10 L 2.68 L Hgb 9.8 L 8.6 L Hct 31.1 L 26.2 L MCV 100.4 H 97.7 MCH 31.5 32.2 MCHC 31.4 L 33.0 RDW 24.2 H 23.8 H Plt Count 78 L 80 L MPV 11.6 H 11.1 H Prelim Diff (Auto) Slide review pending Slide review pending Neut % (Auto) 90.4 H 80.4 H Lymph % (Auto) 5.1 L 14.0 [place] % (Auto) 4.1 5.2 Eos % (Auto) 0.1 0.3 Baso % (Auto) 0.3 0.1 Neut # (Auto) 4.2 2.9 Lymph # (Auto) 0.2 L 0.5 L [place] # (Auto) 0.2 0.2 Eos # (Auto) 0.0 0.0 Baso # (Auto) 0.0 0.0 WBC Differential . . Diff Scan Auto diff confirmed Auto diff confirmed Differential Comment . . Platelet Estimate Low L Low L Platelet Morphology Enlarged H Enlarged H Lab - Chemistry Results 03/09/18 03/10/18 03/10/18 17:28 00:07 06:06 Sodium Potassium Chloride Carbon Dioxide Anion Gap BUN Creatinine Estimated GFR POC Glucose 203 H 192 H 126 H Random Glucose Calcium Prot Corrected Calcium Phosphorus Magnesium Total Bilirubin AST ALT Alkaline Phosphatase Total Protein Albumin 03/10/18 03/10/18 03/10/18 12:26 12:28 17:26 Sodium 143 Potassium 3.7 Chloride 110 H D Carbon Dioxide 21.4 Anion Gap 12 BUN 31 H Creatinine 0.88 Estimated GFR 87 L POC Glucose 129 H 280 H Random Glucose 115 H Calcium 7.7 L Prot Corrected Calcium Phosphorus 1.9 L Magnesium 1.8 Total Bilirubin 0.4 AST 43 H ALT 16 Alkaline Phosphatase 69 Total Protein 6.5 D Albumin 2.2 L 03/10/18 03/11/18 03/11/18 23:07 05:00 13:24 Sodium 142 Potassium 4.0 Chloride 112 H Carbon Dioxide 19.9 L Anion Gap 10 BUN 29 H Creatinine 0.86 Estimated GFR Greater than 89 POC Glucose 134 H 150 H Random Glucose 112 H Calcium 7.3 L* Prot Corrected Calcium 8.0 L Phosphorus 1.7 L Magnesium 1.4 L Total Bilirubin 0.3 AST 34 ALT 15 Alkaline Phosphatase 64 Total Protein 5.8 L D Albumin 1.9 L Imaging: ITS Impressions Abdomen/Bladder Ultrasound 02/05/18 00:00 CONCLUSION: 1. No evidence of hydronephrosis. 2. The echogenicity of the kidneys is equal to that of the liver which can be seen with medical renal disease. 3. Simple cyst in right kidney. 4. Suboptimal visualization of the left kidney. 5. Small amount of free fluid along the spleen. This could represent an adjacent pleural effusion. Head CT 02/15/18 12:23 CONCLUSION: 1. Negative CT Head non contrast. . Head MRI 02/16/18 08:28 CONCLUSION: 1. New focus of restricted diffusion high along the right cerebral vertex measuring 8 mm consistent with a new small focal acute infarction. 2. There is a new 5 mm area restricted diffusion high along the left cerebral vertex consistent with a new small focal acute infarction. 3. 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 This area is stable compared to the prior examination. 4. Stable bilateral cortical atrophy and mild chronic white matter changes. 5. Chronic bilateral mastoiditis. Chest CT 02/18/18 00:00 CONCLUSION: 1. Increasing basilar and dependent consolidation in both lungs most characteristic of pneumonia or aspiration. 2. Near complete resolution of previous small effusions. 3. Osteopenia with stable compression deformities in the spine. 4. Previous sternotomy with aortic valve replacement. 5. Right-sided central line, ET tube and NG tube in good position. Abdomen X-Ray 03/04/18 00:00 CONCLUSION: Paucity of bowel gas in the abdomen. Nondilated small air-filled segment of the ascending colon seen. Chest X-Ray 03/11/18 00:00 CONCLUSION: 1. Persistent bibasilar airspace disease with associated effusions. 2. Improving aeration in the upper lungs, particularly on the right. Physical Exam: GENERAL: cachectic SKIN: Warm and dry. HEAD: Atraumatic. Normocephalic. EYES: Pupils equal and round. No scleral icterus. No injection or drainage. ENT: No nasal bleeding or discharge. Mucous membranes pale NECK: Trach in place site [place] CARDIOVASCULAR: Regular rate and rhythm. + diastolic blowing murmur on aortic valve point 1-2/6 today RESPIRATORY: No accessory muscle use. b/l rales to auscultation. Breath sounds equal bilaterally. GASTROINTESTINAL: Abdomen soft, tight, distended and tender . Hepatic and splenic margins not palpable. liquid brown stool in the dignishield bag : roberson in place with good amount of urine MUSCULOSKELETAL: Extremities without clubbing, cyanosis, or edema. No obvious deformities. warmt o cool to touch feet NEUROLOGICAL: Awake, makes eye contact PSYCHIATRIC:unable to assess Assessment and Plan - Plan Sepsis C.diff ? VAP ; PSAE, KLEb - new infiltrates and difficulty weaning - CT and CXR look worse, though resp status improved with Previous MSSA sepsis with presumed PVE of aortic valve prosthesis, on treatment - tx included vanco+ gent w/o rifampin Acute renal insufficiency, improving slowly GFR CHF EF < 20 % sp IN troponin peaked @ 32 cont vanco + gent as a part of PVE Rx will not add rifampin while on amio 2/2 interaction with amiodarone Rifampin can be added if amiodarone is discontinued ccont cefepime and complete 7-14 days of PNA treatment Worsening leukocytosis, C.diff is likely the source Ileus New stroke worsening renal status: improved after vanco and gent stopped - GFR is now normal / new sepsis? Fungiuria HIT dc azactam - will likely dc azactam if cont to imptove clinically and radiologically complete ancef thru the end of the month (6 weeks from 1st neg blood clx) cont C.diff tx: cont po vanco ; anticipate 2 weeks after all abx stopped dc fluconazol monitor plts repeat CXR
[2018-03-12] MEDS: Insulin NovoLOG Aspart Correctional Sugar Inj SQ SCH ×5 (00:10→18:33)
--- NOTE | 2018-03-12 03:56 | XR ---
EXAM DATE: 03/12/2018 3:51 AM EDT AGE/SEX: 62 years / Male INDICATIONS: Shortness of breath, possible pulmonary disease. CLINICAL DATA: This is the patient's subsequent encounter. Patient reports that signs and symptoms h ave been present for 1 month and indicates a pain score of Nonresponsive. MEDICAL/SURGICAL HISTORY: Stroke. Inguinal hernia repair. Aortic valve replacement. COMPARISON: [facility] – [place], CHEST 1V SINGLE AP, 03/11/2018. . FINDINGS: Bilateral airspace disease with concomitant effusions, right greater than left. Right-sided effusion may be slightly worse when compared to prior. Heart size is normal. Tracheostomy tube is stable in po sition. Postoperative changes with findings of prior aortic valve replacement. CONCLUSION: Persistent bilateral airspace disease with associated effusions. There appears to be some interval wo rsening on the right. Electronically signed by: Raaz Ty MD 03/12/2018 3:55 AM EDT
[2018-03-12] MEDS: Oral Hygiene Kit OROPHARYNG SCH ×3 (05:26→16:11)
[2018-03-12 05:27] LABS: Alanine Aminotransferase 16 U/L (12-78); Albumin 1.6 g/dL (3.4-5.0); Alkaline Phosphatase 52 U/L (45-117); Anion Gap 13 meq/L (5-15); Aspartate Aminotransferase 38 U/L (15-37); Blood Urea Nitrogen 25 mg/dL (7-18); Calcium 6.9 mg/dL (8.5-10.1); Carbon Dioxide 19.1 meq/L (21.0-32.0); Chloride 113 meq/L (98-107); Glomerular Filtration Rate Greater Than 89 mL/min (>89); Glucose,Random 127 mg/dL (74-106); Magnesium 1.8 mg/dL (1.5-2.5); Potassium 3.3 meq/L (3.5-5.1); Sodium 145 meq/L (136-145); Total Protein 5.3 g/dL (6.4-8.2)
[2018-03-12 05:31] LABS: Baso % (Auto) 0.2 % (0.0-2.0); Eos % (Auto) 0.5 % (0.0-4.0); Hematocrit 26.9 % (39.0-51.0); Hemoglobin 8.5 gm/dL (13.0-17.0); Lymph # (Auto) 0.3 th/mm3 (1.0-4.8); Lymph % (Auto) 11.2 % (9.0-44.0); Mean Corpuscular HGB Conc 31.8 % (32.0-36.0); Mean Corpuscular Hemoglobin 31.8 pg (27.0-34.0); Mean Corpuscular Volume 100.2 fL (80.0-100.0); Mean Platelet Volume 11.3 fL (7.0-11.0); Mono # (Auto) 0.2 th/mm3 (0.0-0.9); Mono % (Auto) 6.6 % (0.0-8.0); Neut # (Auto) 2.3 th/mm3 (1.8-7.7); Neut % (Auto) 81.5 % (16.0-70.0); Platelet Count 64 th/mm3 (150-450); Red Blood Count 2.68 mil/mm3 (4.50-5.90); Red Cell Distribution Width 24.2 % (11.6-17.2); White Blood Count 2.8 th/mm3 (4.0-11.0)
[2018-03-12 07:44] LABS: Lymphocytes 14 % (9-44); Monocytes 3 % (0-8)
[2018-03-12] MEDS: Amiodarone 200 MG Tablet G-TUBE SCH ×2 (08:21→21:45)
[2018-03-12] MEDS: Ferrrous Sulfate 300 MG/5 ML UDC PO SCH (08:21)
[2018-03-12] MEDS: Ascorbic Acid 500 MG Tablet NG/OG SCH (08:21)
[2018-03-12] MEDS: MethylPREDNISolone Sod Succinate Inj 40 MG/ML Vial IV.PUSH SCH (08:21)
[2018-03-12] MEDS: Chlorhexidine 0.12% Oral Kit 15 ML UDC OROPHARYNG SCH ×2 (08:22→20:25)
[2018-03-12] MEDS: Hypromellose 0.3% Opth Gel 10 GM Bottle EACH EYE SCH ×2 (08:22→21:45)
[2018-03-12] MEDS: Senna/Docusate Sodium 8.6/50 MG Tablet PO SCH ×2 (08:22→21:46)
[2018-03-12] MEDS: Beneprotein Powder Packet G-TUBE SCH ×3 (08:22→17:27)
[2018-03-12] MEDS: Pregabalin 75 MG Capsule PO SCH ×2 (08:22→21:44)
[2018-03-12] MEDS: Dextrose 5% in Water Inj 1,000 ML IV.CONT SCH (08:30)
[2018-03-12] MEDS ORDERED: Potassium Chloride 25 MEQ Effervescent Tablet PO PRN (08:37)
[2018-03-12] MEDS ORDERED: Magnesium Sulfate Inj 2 GM in Sodium Chlor 0.9% Inj 96 ML IV.SIG PRN (08:37)
[2018-03-12] MEDS ORDERED: Potassium Phosphate 500 MG Soluble Tablet PO PRN (08:37)
[2018-03-12] MEDS ORDERED: Potassium Chlor 20 mEq Premix 20 MEQ/100 ML PIGGYBACK IV.SIG PRN ×2 (08:37)
[2018-03-12] MEDS ORDERED: Sodium Phosphate Inj 30 MMOL in Sodium Chlor 0.9% Inj 250 ML IV.SIG PRN (08:37)
[2018-03-12] MEDS ORDERED: Potassium Phosphate Inj 30 MMOL in Sodium Chlor 0.9% Inj 250 ML IV.SIG PRN (08:37)
[2018-03-12] MEDS ORDERED: Potassium Chlor 40 mEq Premix 40 MEQ/100 ML PIGGYBACK IV.SIG PRN ×2 (08:37)
[2018-03-12] MEDS ORDERED: Magnesium Sulfate Inj 4 GM in Sodium Chlor 0.9% Inj 92 ML IV.SIG PRN (08:37)
[2018-03-12] MEDS ORDERED: Magnesium Oxide 400 MG Tablet PO PRN (08:37)
[2018-03-12] MEDS ORDERED: Calcium Chloride Inj 1 GM/10 ML Syringe IV.PUSH ONE (09:00)
--- NOTE | 2018-03-12 09:48 | P.PNID ---
Subjective Remarks: ID Coverage 62 year old male admitted 02/05 with shock Has been on IV Ancef since January for MSSA sepsis, being treated with long course of IV Abx due to his prosthetic valve Since admission February 05, he has been treated for PSAE and Kleb PNA Has failed extubation and now trach Also on RX for C difficile colitis Started on T-piece trial yesterday On T-piece this morning Temps ok BP ok Still with liquid stool Has had leukopenia Antibiotics: cefazolin oral vanco Lines: PIV Past Medical History: Reviewed Allergies/Adverse Reactions: Allergies No Known Allergies Allergy (Verified 02/04/18 18:10) Objective Vital Signs 03/11/18 09:45 03/11/18 10:00 03/11/18 10:15 Temperature Pulse Rate 82 83 83 Respiratory Rate 24 26 H 26 H Blood Pressure 94/54 L 106/61 107/61 Pulse Oximetry 100 100 100 03/11/18 10:30 03/11/18 10:45 03/11/18 11:00 Temperature Pulse Rate 83 83 83 Respiratory Rate 26 H 25 H 24 Blood Pressure 106/62 98/53 L 95/55 L Pulse Oximetry 100 100 100 03/11/18 11:15 03/11/18 11:30 03/11/18 11:45 Temperature Pulse Rate 84 85 88 Respiratory Rate 26 H 27 H 29 H Blood Pressure 99/56 L 97/57 L 101/59 L Pulse Oximetry 100 100 98 03/11/18 12:00 03/11/18 12:15 03/11/18 12:30 Temperature Pulse Rate 86 90 85 Respiratory Rate 28 H 30 H 26 H Blood Pressure 99/58 L 99/60 L 105/65 Pulse Oximetry 99 97 99 03/11/18 12:45 03/11/18 13:00 03/11/18 13:15 Temperature Pulse Rate 85 85 84 Respiratory Rate 29 H 30 H 30 H Blood Pressure 108/65 99/58 L 99/55 L Pulse Oximetry 100 99 100 03/11/18 13:30 03/11/18 13:45 03/11/18 14:00 Temperature Pulse Rate 81 81 80 Respiratory Rate 25 H 25 H 25 H Blood Pressure 92/54 L 98/57 L 99/54 L Pulse Oximetry 100 100 100 03/11/18 14:15 03/11/18 14:30 03/11/18 14:45 Temperature Pulse Rate 81 74 74 Respiratory Rate 24 25 H 27 H Blood Pressure 98/56 L 98/57 L 96/57 L Pulse Oximetry 100 100 100 03/11/18 15:00 03/11/18 15:15 03/11/18 15:30 Temperature Pulse Rate 82 82 75 Respiratory Rate 25 H 25 H 24 Blood Pressure 101/61 103/64 100/62 Pulse Oximetry 100 100 100 03/11/18 15:45 03/11/18 16:00 03/11/18 16:15 Temperature Pulse Rate 76 76 81 Respiratory Rate 23 25 H 26 H Blood Pressure 100/63 100/59 L 96/61 L Pulse Oximetry 100 100 100 03/11/18 16:30 03/11/18 16:45 03/11/18 17:00 Temperature Pulse Rate 77 79 80 Respiratory Rate 25 H 27 H 29 H Blood Pressure 101/62 105/64 101/63 Pulse Oximetry 100 100 100 03/11/18 17:15 03/11/18 17:30 03/11/18 17:45 Temperature Pulse Rate 80 72 81 Respiratory Rate 33 H 26 H 28 H Blood Pressure 105/66 102/59 L 101/63 Pulse Oximetry 96 100 100 03/11/18 18:00 03/11/18 18:15 03/11/18 18:30 Temperature Pulse Rate 77 77 73 Respiratory Rate 25 H 28 H 26 H Blood Pressure 110/68 112/68 95/57 L Pulse Oximetry 100 99 99 03/11/18 18:45 03/11/18 19:00 03/11/18 19:15 Temperature Pulse Rate 74 75 81 Respiratory Rate 23 22 25 H Blood Pressure 107/67 108/69 110/72 Pulse Oximetry 100 100 97 03/11/18 19:30 03/11/18 19:45 03/11/18 20:00 Temperature 97.6 F Pulse Rate 74 77 74 Respiratory Rate 21 24 16 Blood Pressure 113/70 109/69 113/72 Pulse Oximetry 100 99 100 03/11/18 20:15 03/11/18 20:30 03/11/18 20:45 Temperature Pulse Rate 75 79 80 Respiratory Rate 20 24 23 Blood Pressure 112/73 117/78 117/76 Pulse Oximetry 99 87 L 98 03/11/18 21:00 03/11/18 21:13 03/11/18 21:15 Temperature Pulse Rate 83 78 Respiratory Rate 27 H 21 22 Blood Pressure 122/77 112/72 Pulse Oximetry 98 100 100 03/11/18 21:30 03/11/18 21:45 03/11/18 22:00 Temperature Pulse Rate 71 80 75 Respiratory Rate 21 20 21 Blood Pressure 117/75 120/77 109/69 Pulse Oximetry 100 100 100 03/11/18 22:15 03/11/18 22:30 03/11/18 22:45 Temperature Pulse Rate 77 71 73 Respiratory Rate 22 22 20 Blood Pressure 107/67 110/68 103/65 Pulse Oximetry 100 100 100 03/11/18 23:00 03/11/18 23:15 03/11/18 23:30 Temperature Pulse Rate 78 80 76 Respiratory Rate 17 20 16 Blood Pressure 110/70 102/68 107/71 Pulse Oximetry 100 100 100 03/11/18 23:45 03/12/18 00:00 03/12/18 00:15 Temperature Pulse Rate 72 72 74 Respiratory Rate 20 20 17 Blood Pressure 113/74 110/71 108/70 Pulse Oximetry 100 100 100 03/12/18 00:30 03/12/18 00:45 03/12/18 01:00 Temperature Pulse Rate 79 75 76 Respiratory Rate 20 18 21 Blood Pressure 106/67 109/70 111/71 Pulse Oximetry 100 100 100 03/12/18 01:15 03/12/18 01:20 03/12/18 01:30 Temperature Pulse Rate 83 74 Respiratory Rate 27 H 18 22 Blood Pressure 108/68 107/64 Pulse Oximetry 100 100 100 03/12/18 01:45 03/12/18 02:00 03/12/18 02:15 Temperature Pulse Rate 82 77 78 Respiratory Rate 20 17 18 Blood Pressure 108/66 107/67 102/64 Pulse Oximetry 100 100 95 03/12/18 02:30 03/12/18 02:45 03/12/18 03:00 Temperature Pulse Rate 79 77 81 Respiratory Rate 18 19 17 Blood Pressure 100/64 107/67 110/69 Pulse Oximetry 100 100 100 03/12/18 03:15 03/12/18 03:30 03/12/18 03:45 Temperature Pulse Rate 76 81 81 Respiratory Rate 20 21 21 Blood Pressure 108/66 111/69 104/63 Pulse Oximetry 100 99 100 03/12/18 04:00 03/12/18 04:15 03/12/18 04:30 Temperature Pulse Rate 76 74 80 Respiratory Rate 16 19 21 Blood Pressure 104/64 104/65 109/68 Pulse Oximetry 100 100 100 03/12/18 04:45 03/12/18 05:00 03/12/18 05:15 Temperature Pulse Rate 84 82 79 Respiratory Rate 25 H 23 18 Blood Pressure 112/74 109/66 109/65 Pulse Oximetry 100 100 100 03/12/18 05:30 03/12/18 05:45 03/12/18 06:00 Temperature Pulse Rate 71 81 80 Respiratory Rate 19 18 19 Blood Pressure 109/67 106/65 110/68 Pulse Oximetry 100 95 99 03/12/18 08:00 03/12/18 09:25 Temperature Pulse Rate Respiratory Rate 23 Blood Pressure Pulse Oximetry 100 96 Intake & Output 03/11/18 03/12/18 03/12/18 18:59 06:59 18:59 Intake Total 1728 / 1728 1290 / 1290 260 / 260 Output Total 1500 / 1500 1150 / 1150 Balance 228 / 228 140 / 140 260 / 260 Weight 69 kg Intake: IV 1728 / 1728 100 / 100 260 / 260 Novastan Inj 250 MG In NS Inj 213 / 213 247.5 ML @ 2 MCG/KG/MIN 7.56 mls/hr IV.CONT TITRATE PRN Rx#: [id number] Inj 1,000 ML @ 42 mls/hr IV 650 / 650 .CONT .[id number] ADRIEN Rx#:[id number] Azactam Inj 1,000 MG In NS Inj 100 / 100 100 ML @ 200 mls/hr IV.SIG Q6H [facility] Rx#:[id number] Magnesium Sulfate Inj 2 GM In 100 / 100 NS Inj 96 ML @ 50 mls/hr IV.SIG ONCE ONE Rx#:[id number] Ancef Inj 2,000 MG In NS Inj 200 / 200 100 / 100 100 ML @ 200 mls/hr IV.SIG Q8H [facility] Rx#:[id number] Tube Feeding 590 / 590 Water Bolus Amount 600 / 600 Output: Stool 250 / 250 300 / 300 Urine Amount (Catheter) 1250 / 1250 850 / 850 Indwelling Urethral Catheter 1250 / 1250 850 / 850 Other: Date of Last Bowel Movement 03/10/18 03/12/18 Lab - Hematology Results 03/10/18 03/11/18 03/12/18 12:26 05:00 04:07 WBC 4.7 3.6 L 2.8 L RBC 3.10 L 2.68 L 2.68 L Hgb 9.8 L 8.6 L 8.5 L Hct 31.1 L 26.2 L 26.9 L MCV 100.4 H 97.7 100.2 H MCH 31.5 32.2 31.8 MCHC 31.4 L 33.0 31.8 L RDW 24.2 H 23.8 H 24.2 H Plt Count 78 L 80 L 64 L MPV 11.6 H 11.1 H 11.3 H Prelim Diff (Auto) Slide review pending Slide review pending Slide review pending Neut % (Auto) 90.4 H 80.4 H 81.5 H Lymph % (Auto) 5.1 L 14.0 11.2 [place] % (Auto) 4.1 5.2 6.6 Eos % (Auto) 0.1 0.3 0.5 Baso % (Auto) 0.3 0.1 0.2 Neut # (Auto) 4.2 2.9 2.3 Lymph # (Auto) 0.2 L 0.5 L 0.3 L [place] # (Auto) 0.2 0.2 0.2 Eos # (Auto) 0.0 0.0 0.0 Baso # (Auto) 0.0 0.0 0.0 WBC Differential . . Manual diff final Diff Scan Auto diff confirmed Auto diff confirmed Seg Neuts % (Manual) 79 H Band Neuts % (Manual) 4 Lymphocytes % (Manual) 14 Monocytes % (Manual) 3 Abs Neuts (Manual) 2.3 Differential Comment . . . Platelet Estimate Low L Low L Low L Platelet Morphology Enlarged H Enlarged H Enlarged H Lab - Chemistry Results 03/10/18 03/10/18 03/10/18 12:26 12:28 17:26 Sodium 143 Potassium 3.7 Chloride 110 H D Carbon Dioxide 21.4 Anion Gap 12 BUN 31 H Creatinine 0.88 Estimated GFR 87 L POC Glucose 129 H 280 H Random Glucose 115 H Calcium 7.7 L Prot Corrected Calcium Phosphorus 1.9 L Magnesium 1.8 Total Bilirubin 0.4 AST 43 H ALT 16 Alkaline Phosphatase 69 Total Protein 6.5 D Albumin 2.2 L 08/03/11/18 03/11/18 23:07 05:00 13:24 Sodium 142 Potassium 4.0 Chloride 112 H Carbon Dioxide 19.9 L Anion Gap 10 BUN 29 H Creatinine 0.86 Estimated GFR Greater than 89 POC Glucose 134 H 150 H Random Glucose 112 H Calcium 7.3 L* Prot Corrected Calcium 8.0 L Phosphorus 1.7 L Magnesium 1.4 L Total Bilirubin 0.3 AST 34 ALT 15 Alkaline Phosphatase 64 Total Protein 5.8 L D Albumin 1.9 L 03/12/18 03/12/18 03/12/18 00:06 00:08 04:07 Sodium 145 Potassium 3.3 L Chloride 113 H Carbon Dioxide 19.1 L Anion Gap 13 BUN 25 H Creatinine 0.83 Estimated GFR Greater than 89 POC Glucose 157 H 152 H Random Glucose 127 H Calcium 6.9 L* Prot Corrected Calcium 7.8 L Phosphorus 2.0 L Magnesium 1.8 Total Bilirubin 0.2 AST 38 H ALT 16 Alkaline Phosphatase 52 Total Protein 5.3 L Albumin 1.6 L 03/12/18 05:25 Sodium Potassium Chloride Carbon Dioxide Anion Gap BUN Creatinine Estimated GFR POC Glucose 141 H Random Glucose Calcium Prot Corrected Calcium Phosphorus Magnesium Total Bilirubin AST ALT Alkaline Phosphatase Total Protein Albumin Imaging: ITS Impressions Abdomen/Bladder Ultrasound 02/05/18 00:00 CONCLUSION: 1. No evidence of hydronephrosis. 2. The echogenicity of the kidneys is equal to that of the liver which can be seen with medical renal disease. 3. Simple cyst in right kidney. 4. Suboptimal visualization of the left kidney. 5. Small amount of free fluid along the spleen. This could represent an adjacent pleural effusion. Head CT 02/15/18 12:23 CONCLUSION: 1. Negative CT Head non contrast. . Head MRI 02/16/18 08:28 CONCLUSION: 1. New focus of restricted diffusion high along the right cerebral vertex measuring 8 mm consistent with a new small focal acute infarction. 2. There is a new 5 mm area restricted diffusion high along the left cerebral vertex consistent with a new small focal acute infarction. 3. 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 This area is stable compared to the prior examination. 4. Stable bilateral cortical atrophy and mild chronic white matter changes. 5. Chronic bilateral mastoiditis. Chest CT 02/18/18 00:00 CONCLUSION: 1. Increasing basilar and dependent consolidation in both lungs most characteristic of pneumonia or aspiration. 2. Near complete resolution of previous small effusions. 3. Osteopenia with stable compression deformities in the spine. 4. Previous sternotomy with aortic valve replacement. 5. Right-sided central line, ET tube and NG tube in good position. Abdomen X-Ray 03/04/18 00:00 CONCLUSION: Paucity of bowel gas in the abdomen. Nondilated small air-filled segment of the ascending colon seen. Chest X-Ray 03/12/18 00:00 CONCLUSION: Persistent bilateral airspace disease with associated effusions. There appears to be some interval worsening on the right. Physical Exam: GENERAL: cachectic, awake, did not follow, on T-piece, not in distress SKIN: Cool and dry. No generalized rash HEAD: Atraumatic. Normocephalic. EYES: Pupils equal and round. No scleral icterus. No injection or drainage. ENT: No nasal bleeding or discharge. Mucous membranes dry. NECK: Trach in place site [place] CARDIOVASCULAR: Regular rate and rhythm. + diastolic blowing murmur on aortic valve point 1-2/6 today RESPIRATORY: Rales at both bases, equal breath sounds GASTROINTESTINAL: Abdomen mildly distended and tender . Liquid brown stool in the dign[place] bag : roberson in place with good amount of urine MUSCULOSKELETAL: Extremities without clubbing, cyanosis, or edema. No obvious deformities. NEUROLOGICAL: Awake, makes eye contact PSYCHIATRIC:unable to assess LINE: No evidence of infection Assessment and Plan - Plan Impression Sepsis C.diff ? VAP ; PSAE, KLEb, S/P Rx Acute renal insufficiency, improving slowly GFR CHF EF < 20 % S/P [place] Respiratory failure, S/P trach - doing T-piece traisl Leukopenia Recommendation Continue Ancef for MSSA sepsis, plan till end of month to complete 6 weeks from 1st neg blood C/S Continue C.diff tx: cont po vanco, will continue until after he completes his Ancef Rx Follow counts Weaning per CCM Monitor progress
--- NOTE | 2018-03-12 10:34 | P.PNONC ---
Subjective Interval history: Afebrile Patient resting in bed with eyes closed on approach. Shakes head "no" when asked about any shortness of breath or pain Objective Vital Signs/Intake & Output: Vital Signs 03/11/18 10:45 03/11/18 11:00 03/11/18 11:15 Temperature Pulse Rate 83 83 84 Respiratory Rate 25 H 24 26 H Blood Pressure 98/53 L 95/55 L 99/56 L Pulse Oximetry 100 100 100 03/11/18 11:30 03/11/18 11:45 03/11/18 12:00 Temperature Pulse Rate 85 88 86 Respiratory Rate 27 H 29 H 28 H Blood Pressure 97/57 L 101/59 L 99/58 L Pulse Oximetry 100 98 99 03/11/18 12:15 03/11/18 12:30 03/11/18 12:45 Temperature Pulse Rate 90 85 85 Respiratory Rate 30 H 26 H 29 H Blood Pressure 99/60 L 105/65 108/65 Pulse Oximetry 97 99 100 03/11/18 13:00 03/11/18 13:15 03/11/18 13:30 Temperature Pulse Rate 85 84 81 Respiratory Rate 30 H 30 H 25 H Blood Pressure 99/58 L 99/55 L 92/54 L Pulse Oximetry 99 100 100 03/11/18 13:45 03/11/18 14:00 03/11/18 14:15 Temperature Pulse Rate 81 80 81 Respiratory Rate 25 H 25 H 24 Blood Pressure 98/57 L 99/54 L 98/56 L Pulse Oximetry 100 100 100 03/11/18 14:30 03/11/18 14:45 03/11/18 15:00 Temperature Pulse Rate 74 74 82 Respiratory Rate 25 H 27 H 25 H Blood Pressure 98/57 L 96/57 L 101/61 Pulse Oximetry 100 100 100 03/11/18 15:15 03/11/18 15:30 03/11/18 15:45 Temperature Pulse Rate 82 75 76 Respiratory Rate 25 H 24 23 Blood Pressure 103/64 100/62 100/63 Pulse Oximetry 100 100 100 03/11/18 16:00 03/11/18 16:15 03/11/18 16:30 Temperature Pulse Rate 76 81 77 Respiratory Rate 25 H 26 H 25 H Blood Pressure 100/59 L 96/61 L 101/62 Pulse Oximetry 100 100 100 03/11/18 16:45 03/11/18 17:00 03/11/18 17:15 Temperature Pulse Rate 79 80 80 Respiratory Rate 27 H 29 H 33 H Blood Pressure 105/64 101/63 105/66 Pulse Oximetry 100 100 96 03/11/18 17:30 03/11/18 17:45 03/11/18 18:00 Temperature Pulse Rate 72 81 77 Respiratory Rate 26 H 28 H 25 H Blood Pressure 102/59 L 101/63 110/68 Pulse Oximetry 100 100 100 03/11/18 18:15 03/11/18 18:30 03/11/18 18:45 Temperature Pulse Rate 77 73 74 Respiratory Rate 28 H 26 H 23 Blood Pressure 112/68 95/57 L 107/67 Pulse Oximetry 99 99 100 03/11/18 19:00 03/11/18 19:15 03/11/18 19:30 Temperature Pulse Rate 75 81 74 Respiratory Rate 22 25 H 21 Blood Pressure 108/69 110/72 113/70 Pulse Oximetry 100 97 100 03/11/18 19:45 03/11/18 20:00 03/11/18 20:15 Temperature 97.6 F Pulse Rate 77 74 75 Respiratory Rate 24 16 20 Blood Pressure 109/69 113/72 112/73 Pulse Oximetry 99 100 99 03/11/18 20:30 03/11/18 20:45 03/11/18 21:00 Temperature Pulse Rate 79 80 83 Respiratory Rate 24 23 27 H Blood Pressure 117/78 117/76 122/77 Pulse Oximetry 87 L 98 98 03/11/18 21:13 03/11/18 21:15 03/11/18 21:30 Temperature Pulse Rate 78 71 Respiratory Rate 21 22 21 Blood Pressure 112/72 117/75 Pulse Oximetry 100 100 100 03/11/18 21:45 03/11/18 22:00 03/11/18 22:15 Temperature Pulse Rate 80 75 77 Respiratory Rate 20 21 22 Blood Pressure 120/77 109/69 107/67 Pulse Oximetry 100 100 100 03/11/18 22:30 03/11/18 22:45 03/11/18 23:00 Temperature Pulse Rate 71 73 78 Respiratory Rate 22 20 17 Blood Pressure 110/68 103/65 110/70 Pulse Oximetry 100 100 100 03/11/18 23:15 03/11/18 23:30 03/11/18 23:45 Temperature Pulse Rate 80 76 72 Respiratory Rate 20 16 20 Blood Pressure 102/68 107/71 113/74 Pulse Oximetry 100 100 100 03/12/18 00:00 03/12/18 00:15 03/12/18 00:30 Temperature Pulse Rate 72 74 79 Respiratory Rate 20 17 20 Blood Pressure 110/71 108/70 106/67 Pulse Oximetry 100 100 100 03/12/18 00:45 03/12/18 01:00 03/12/18 01:15 Temperature Pulse Rate 75 76 83 Respiratory Rate 18 21 27 H Blood Pressure 109/70 111/71 108/68 Pulse Oximetry 100 100 100 03/12/18 01:20 03/12/18 01:30 03/12/18 01:45 Temperature Pulse Rate 74 82 Respiratory Rate 18 22 20 Blood Pressure 107/64 108/66 Pulse Oximetry 100 100 100 03/12/18 02:00 03/12/18 02:15 03/12/18 02:30 Temperature Pulse Rate 77 78 79 Respiratory Rate 17 18 18 Blood Pressure 107/67 102/64 100/64 Pulse Oximetry 100 95 100 03/12/18 02:45 03/12/18 03:00 03/12/18 03:15 Temperature Pulse Rate 77 81 76 Respiratory Rate 19 17 20 Blood Pressure 107/67 110/69 108/66 Pulse Oximetry 100 100 100 03/12/18 03:30 03/12/18 03:45 03/12/18 04:00 Temperature Pulse Rate 81 81 76 Respiratory Rate 21 21 16 Blood Pressure 111/69 104/63 104/64 Pulse Oximetry 99 100 100 03/12/18 04:15 03/12/18 04:30 03/12/18 04:45 Temperature Pulse Rate 74 80 84 Respiratory Rate 19 21 25 H Blood Pressure 104/65 109/68 112/74 Pulse Oximetry 100 100 100 03/12/18 05:00 03/12/18 05:15 03/12/18 05:30 Temperature Pulse Rate 82 79 71 Respiratory Rate 23 18 19 Blood Pressure 109/66 109/65 109/67 Pulse Oximetry 100 100 100 03/12/18 05:45 03/12/18 06:00 03/12/18 06:15 Temperature Pulse Rate 81 80 81 Respiratory Rate 18 19 22 Blood Pressure 106/65 110/68 110/69 Pulse Oximetry 95 99 100 03/12/18 06:30 03/12/18 06:45 03/12/18 07:00 Temperature Pulse Rate 85 82 79 Respiratory Rate 23 22 17 Blood Pressure 100/75 102/72 109/70 Pulse Oximetry 100 100 100 03/12/18 07:15 03/12/18 07:30 03/12/18 07:45 Temperature Pulse Rate 76 78 79 Respiratory Rate 17 19 18 Blood Pressure 111/69 107/65 112/68 Pulse Oximetry 100 100 100 03/12/18 08:00 03/12/18 08:15 03/12/18 08:30 Temperature Pulse Rate 86 78 80 Respiratory Rate 21 20 21 Blood Pressure 108/62 109/65 111/66 Pulse Oximetry 100 100 100 03/12/18 08:45 03/12/18 09:00 03/12/18 09:15 Temperature Pulse Rate 82 85 82 Respiratory Rate 19 24 23 Blood Pressure 115/72 116/69 111/65 Pulse Oximetry 100 100 100 03/12/18 09:25 03/12/18 09:30 03/12/18 09:45 Temperature Pulse Rate 89 84 Respiratory Rate 20 22 Blood Pressure 115/65 110/63 Pulse Oximetry 96 97 98 03/12/18 10:00 03/12/18 10:15 Temperature Pulse Rate 86 83 Respiratory Rate 25 H 24 Blood Pressure 111/70 111/65 Pulse Oximetry 89 L 99 Intake & Output 03/11/18 03/12/18 03/12/18 18:59 06:59 18:59 Intake Total 1728 / 1728 1290 / 1290 260 / 260 Output Total 1500 / 1500 1150 / 1150 Balance 228 / 228 140 / 140 260 / 260 Weight 152 lb 1.903 oz Intake: IV 1728 / 1728 100 / 100 260 / 260 Novastan Inj 250 MG In NS Inj 213 / 213 247.5 ML @ 2 MCG/KG/MIN 7.56 mls/hr IV.CONT TITRATE PRN Rx#: [id number] D5W Inj 1,000 ML @ 42 mls/hr IV 650 / 650 .CONT .[id number] ADRIEN Rx#:[id number] Azactam Inj 1,000 MG In NS Inj 100 / 100 100 ML @ 200 mls/hr IV.SIG Q6H ADRIEN Rx#:[id number] Magnesium Sulfate Inj 2 GM In 100 / 100 NS Inj 96 ML @ 50 mls/hr IV.SIG ONCE ONE Rx#:[id number] Ancef Inj 2,000 MG In NS Inj 200 / 200 100 / 100 100 ML @ 200 mls/hr IV.SIG Q8H ADRIEN Rx#:[id number] Tube Feeding 590 / 590 Water Bolus Amount 600 / 600 Output: Stool 250 / 250 300 / 300 Urine Amount (Catheter) 1250 / 1250 850 / 850 Indwelling Urethral Catheter 1250 / 1250 850 / 850 Other: Date of Last Bowel Movement 03/10/18 03/12/18 03/12/18 Result Diagrams: 03/12/18 04:07 03/12/18 04:07 Laboratory Results: Laboratory Results - last 24 hr 03/11/18 03/12/18 03/12/18 13:24 00:06 00:08 WBC RBC Hgb Hct MCV MCH MCHC RDW Plt Count MPV Prelim Diff (Auto) Neut % (Auto) Lymph % (Auto) Spencer % (Auto) Eos % (Auto) Baso % (Auto) Neut # (Auto) Lymph # (Auto) Spencer # (Auto) Eos # (Auto) Baso # (Auto) WBC Differential Seg Neuts % (Manual) Band Neuts % (Manual) Lymphocytes % (Manual) Monocytes % (Manual) Abs Neuts (Manual) Differential Comment Platelet Estimate Platelet Morphology APTT Sodium Potassium Chloride Carbon Dioxide Anion Gap BUN Creatinine Estimated GFR POC Glucose 150 H 157 H 152 H Random Glucose Calcium Prot Corrected Calcium Phosphorus Magnesium Total Bilirubin AST ALT Alkaline Phosphatase Total Protein Albumin 03/12/18 03/12/18 03/12/18 04:07 04:07 04:07 WBC 2.8 L RBC 2.68 L Hgb 8.5 L Hct 26.9 L MCV 100.2 H MCH 31.8 MCHC 31.8 L RDW 24.2 H Plt Count 64 L MPV 11.3 H Prelim Diff (Auto) Slide review pending Neut % (Auto) 81.5 H Lymph % (Auto) 11.2 Spencer % (Auto) 6.6 Eos % (Auto) 0.5 Baso % (Auto) 0.2 Neut # (Auto) 2.3 Lymph # (Auto) 0.3 L Spencer # (Auto) 0.2 Eos # (Auto) 0.0 Baso # (Auto) 0.0 WBC Differential Manual diff final Seg Neuts % (Manual) 79 H Band Neuts % (Manual) 4 Lymphocytes % (Manual) 14 Monocytes % (Manual) 3 Abs Neuts (Manual) 2.3 Differential Comment . Platelet Estimate Low L Platelet Morphology Enlarged H APTT 50.4 H Sodium 145 Potassium 3.3 L Chloride 113 H Carbon Dioxide 19.1 L Anion Gap 13 BUN 25 H Creatinine 0.83 Estimated GFR Greater than 89 POC Glucose Random Glucose 127 H Calcium 6.9 L* Prot Corrected Calcium 7.8 L Phosphorus 2.0 L Magnesium 1.8 Total Bilirubin 0.2 AST 38 H ALT 16 Alkaline Phosphatase 52 Total Protein 5.3 L Albumin 1.6 L 03/12/18 05:25 WBC RBC Hgb Hct MCV MCH MCHC RDW Plt Count MPV Prelim Diff (Auto) Neut % (Auto) Lymph % (Auto) Spencer % (Auto) Eos % (Auto) Baso % (Auto) Neut # (Auto) Lymph # (Auto) Spencer # (Auto) Eos # (Auto) Baso # (Auto) WBC Differential Seg Neuts % (Manual) Band Neuts % (Manual) Lymphocytes % (Manual) Monocytes % (Manual) Abs Neuts (Manual) Differential Comment Platelet Estimate Platelet Morphology APTT Sodium Potassium Chloride Carbon Dioxide Anion Gap BUN Creatinine Estimated GFR POC Glucose 141 H Random Glucose Calcium Prot Corrected Calcium Phosphorus Magnesium Total Bilirubin AST ALT Alkaline Phosphatase Total Protein Albumin Imaging Studies: Impressions Chest X-Ray 03/12/18 00:00 CONCLUSION: Persistent bilateral airspace disease with associated effusions. There appears to be some interval worsening on the right. Medications: Active Medications Generic Name Dose Route Start Last Admin Trade Name Freq PRN Reason Stop Dose Admin Acetaminophen 650 mg 02/14/18 09:23 02/19/18 15:18 Tylenol Liq PO 650 mg Q6H PRN Administration FEVER Hydrocodone Bitart/Acetaminophen 1 tab 03/05/18 08:11 03/10/18 08:34 Edwards 7.5/325 PO 1 tab Q4H PRN Administration pain 1-10 Albuterol 2.5 mg 02/05/18 00:00 03/10/18 06:51 Albuterol Neb (Prn) NEB 2.5 mg Q2HR NEB PRN Administration SHORTNESS OF BREATH/WHEEZING Amiodarone HCl 400 mg 02/11/18 12:00 03/12/18 08:21 Cordarone G-TUBE 400 mg BID ADRIEN Administration Artificial Tears 1 drops 02/14/18 21:00 03/12/18 08:22 Genteal Severe Dry Eye Relief 0.3% Opth Gel EACH EYE 1 drops BID ADRIEN Administration Ascorbic Acid 500 mg 02/15/18 09:00 03/12/18 08:21 Vitamin C NG/OG 500 mg DAILY ADRIEN Administration Aspirin 81 mg 02/06/18 09:00 03/12/18 08:21 Aspirin Chew PO 81 mg DAILY ADRIEN Administration Atorvastatin Calcium 40 mg 02/05/18 21:00 03/11/18 20:38 Lipitor PO 40 mg HS ADRIEN Administration Chlorhexidine Gluconate 15 ml 02/06/18 08:00 03/12/18 08:22 Peridex 0.12% Oral Kit OROPHARYNG 15 ml BID@0800,1999 ADRIEN Administration Clopidogrel Bisulfate 75 mg 02/06/18 09:00 02/25/18 09:13 Plavix PO 75 mg DAILY ADRIEN Administration Dextrose 50 ml 02/13/18 09:27 03/01/18 06:02 D50w Vial IV.PUSH 50 ml UNSCH PRN Administration PER HYPOGLYCEMIA PROTOCOL Digoxin 250 mcg 02/07/18 09:00 02/11/18 15:41 Lanoxin Inj IV.PUSH Not Given DAILY [facility] Duloxetine HCl 90 mg 02/05/18 09:00 02/11/18 11:18 Cymbalta PO Not Given DAILY [facility] Ferrous Sulfate 300 mg 02/15/18 09:00 03/12/18 08:21 Ferrrous Sulfate Liq PO 300 mg DAILY ADRIEN Administration Argatroban 250 mg/ Sodium 250 mls @ 7.56 mls/hr 03/02/18 15:00 03/11/18 09:00 Chloride IV.CONT 2 mcg/kg/min TITRATE PRN 7.56 mls/hr Per Protocol Administration Protocol 2 MCG/KG/MIN Dextrose 1,000 mls @ 42 mls/hr 03/09/18 09:15 03/11/18 09:26 D5w Inj IV.CONT 42 mls/hr .[id number] ADRIEN Administration Cefazolin Sodium 2,000 mg/ 100 mls @ 200 mls/hr 03/11/18 16:00 03/12/18 08:19 Sodium Chloride IV.SIG 200 mls/hr Q8H ADRIEN Administration Insulin Aspart 0 unit 02/13/18 12:00 03/12/18 05:27 Novolog Insulin Correctional Sugar Inj SQ Not Given Q6HR [facility] Protocol Lactulose 30 ml 02/05/18 00:00 02/05/18 08:38 Lactulose Liq PO 30 ml DAILY PRN Administration [employer] Lansoprazole 30 mg 02/15/18 09:00 03/12/18 08:21 Prevacid Solutab NG/OG 30 mg DAILY ADRIEN Administration Methylprednisolone Sodium Succinate 20 mg 03/07/18 11:47 03/12/18 08:21 Solumedrol Inj IV.PUSH 20 mg DAILY ADRIEN Administration Morphine Sulfate 4 mg 03/05/18 08:12 03/07/18 03:35 Morphine Inj IV.PUSH 4 mg Q3H PRN Administration breakthrough pain Multivitamins 1 tab 02/05/18 09:00 03/12/18 08:21 Theragran PO 1 tab DAILY ADRIEN Administration Pregabalin 150 mg 02/04/18 23:50 03/12/18 08:22 Lyrica PO 150 mg BID ADRIEN Administration Senna/Docusate Sodium 1 tab 02/05/18 09:00 03/12/18 08:22 Linda-Colace PO 1 tab BID ADRIEN Administration Sodium Chloride 2 ml 02/05/18 09:00 03/11/18 20:38 Ns Flush IV.FLUSH 2 ml BID ADRIEN Administration Sterile Water 300 ml 03/02/18 18:00 03/12/18 05:26 Free Water G-TUBE 300 ml Q6HR ADRIEN Administration Vancomycin HCl 500 mg 02/11/18 16:00 03/12/18 05:26 Vancomycin Po G-TUBE 500 mg Q6HR ADRIEN Administration Whey 1 packet 02/08/18 13:00 03/12/18 08:22 Beneprotein Powder G-TUBE 1 packet TID ADRIEN Administration Objective Remarks: GENERAL: Chronically ill-appearing older male patient, alert, in no acute distress. SKIN: Warm and dry. HEAD: Normocephalic. EYES: No scleral icterus. No injection or drainage. NECK: Tracheostomy midline. No bleeding/oozing noted at tracheostomy site. CARDIOVASCULAR: Regular rate and rhythm without murmurs. RESPIRATORY: Anterior breath sounds clear, equal bilaterally. Currently on trach collar GASTROINTESTINAL: Abdomen soft, non-tender, distended. PEG tube LUQ. EXTREMITIES: No cyanosis, bilateral SCD's and boot supports in place. MUSCULOSKELETAL: Generalized weakness NEUROLOGICAL: Patient with good eye contact. Awake and alert. Assessment/Plan - Plan 62-year-old male admitted to the hospital in late January for fever and hypotension. He was found to have septic shock. He has C. difficile colitis. Hematology consulted for thrombocytopenia. 1. RITA negative. No bleeding on the argatroban drip. LFTs stable. 2. Continue to monitor platelet count. He had slightly reduction today; however there is no bleeding. 3. Continue to monitor CBC, coags and liver functions. 4. Supportive care - Attending Statement The exam, history, and the medical decision-making described in the above note were completed with the assistance of the mid-level provider. I reviewed and agree with the findings presented. I attest that I had a [id number] encounter with the patient on the same day, and personally performed and documented my assessment and findings in the medical record. No report of bleeding. Platelet count trended back down to 64,000 today. Continue Argatroban. Transition to Coumadin when platelet count is stable above 70,000 and if patient able to tolerate p.o.
[2018-03-12] MEDS: Mag Sulf 1 gm/100 ml Premix 100 ML IV.SIG SCH ×4 (11:11→17:26)
[2018-03-12] MEDS: Potassium Phosphate 500 MG Soluble Tablet PO PRN ×2 (11:12→15:30)
--- NOTE | 2018-03-12 15:15 | P.PNCC ---
Subjective Subjective Remarks/Hospital Course: 62-year-old male with past medical history of [place] mechanical aortic valve (09/21/12 Dr. Gonzalez), on chronic anticoagulation with warfarin, atrial fibrillation postop from AVR , COPD on 2.5 L home O2, stroke in 2015 resulting in left-sided sensory deficits and neuropathy, osteoporosis with chronic low back pain. He was recently admitted to [facility] from 01/23 through 01/31/18 for MSSA bacteremia. It is believed that the original source of infection was a wound on his right index finger when electric drill slipped and created a puncture wound. He was discharged with right upper extremity PICC line receiving cefazolin 2 g IV every 8 hours and gentamicin 210 mg IV daily. He states that home health administered antibiotics at 17:00 and shortly thereafter he began having chills and rigors and sought medical attention at [facility]. He had no rash. Upon arrival, he was hypotensive in the low 80s. He was given 2 L S bolus but remained hypotensive so was started on Levophed. He then developed heart rate in the 140s, reportedly atrial flutter so he was started on Amiodarone drip in [place] and converted to sinus rhythm. He was transfused 2 units PRBC due to Hgb 9.3. His stool was nonbloody nonmelena but was Hemoccult positive. He was given zosyn and vancomycin. Critical care medicine was then contacted and accepted patient for transfer to [facility]. He denies tenderness/redness/drainage at PICC site. Aside from mechanical aortic valve, he has no other hardware or indwelling devices. He denies headache, cough, dysuria. He has had a few loose stools at home, but stools have sometimes been formed. He denies chest pain, does report some SOB. EKG at [place] had marked inferolateral ischemic changes. Obtained EKG upon arrival to [facility] which is improved. SUBJ 02/05: Patient remains critical ill appearing, complaints of chest tightness but denies pain. Remains on 8 mcg/min of Levophed to maintain map about 65. However increasing shortness of breath. Chest x-ray shows increasing pulmonary edema. Troponin was 27.5 currently on IV heparin therapeutic. Cardiology consult is pending at this time. I will stop on maintenance fluids give 40 mg IV Lasix and IV albumin 25 g 1. 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 IABP placed. patient emergently intubated for acute hypoxic respiratory failure secondary to cardiogenic shock and pulmonary edema. started on milrinone at 0.375 mcg/kg/min and levophed. bumex drip started. remains critically ill. 02/07: Remains critically ill remains on Levophed and milrinone. Currently diuresing well with Bumex drip. IABP in place management per cardiology-good waveform and augmentation. Chest x-ray shows adequate positioning of IABP, diffuse bilateral pulmonary edema 02/08: Remains critical but showing some signs of improvement. Diuresing very well on Bumex infusion. Remains on Levophed and milrinone. IABP one-to-one with good augmentation management per cardiology. Chest x-ray shows improving edema but with persistent bilateral effusions. Will initiate weaning trials if tolerated 02/09: Still remains on pressors, unable to wean Levophed below 2 mcg/min. Milrinone currently on 0.375 mcg/kg/min. IABP removed yesterday. On sedation hold patient wakes up but remains lethargic. Weakly squeezes hand. Urine output excellent on Bumex, 4 L output in 24 hours. Will attempt CPAP today 02/10: Multiple episodes of V. fib V. tach arrest yesterday morning. Successfully resuscitated. Yesterday night had two-minute V. fib arrest return of spontaneous circulation in sinus rhythm after DC cardioversion 1. Currently remains on milrinone and low-dose Levophed. I will try to wean off Levophed introduce low-dose beta-rasheed due to recurrent arrhythmia. Keep potassium more than 4 magnesium more than 2 02/11: Patient still critical and cardiogenic shock requiring Levophed and milrinone. Urine output improved with adding Diamox. Approximately 2 L urine output in 24 hours, creatinine remained stable. Oxygenation slightly improved FiO2 reduced to 70% now. Overall prognosis remains poor family wants to continue aggressive care 02/12: Remains critical but slight improvement in oxygenation. But continues to require Levophed and milrinone the low-dose. Urine output remains adequate. Chest x-ray shows interval improvement. Creatinine remains stable to slightly improved. Add IV albumin to improve blood pressure and to promote diuresis. 02/13 Patient remains intubated and sedated with Versed and fentanyl. Afebrile, off Levophed remains on Milrinone and Heparin drip. 02/14: Hypothermic overnight. Remains on milrinone and heparin drips. Tolerating tube feeds at 20 cc now. Positive BM. No changes neurologically 02/15 Patient remains sedated with Versed and Fentanyl drips, on Milrinone 0.5. 02/16 Patient remains intubated sedated with Versed and Fentanyl infusion. On Milrinone and Heparin drips. CT brain yesterday showed no acute findings. Afebrile. 02/17 Patient remains sedated and intubated. Afebrile, On Milrinone and Heparin drip. 02/18: Remains critical continues to require milrinone. Urine output adequate. Chest x-ray shows bilateral infiltrate effusion. CT chest to better define effusions and infiltrate. Increase Bumex to 1 mg every 8 hours. Patient is persistently weak, will attempt SBT unlikely to be successfully extubated at this time. Most likely will need tracheostomy if family desires aggressive care 02/19: Remains intubated sedated with Versed and fentanyl. Transition to Precedex to facilitate weaning trials. Patient responding slightly more to verbal command, appears to track even though not following commands. Creatinine slightly increased with increased diuresis. Chest x-ray shows improved pleural effusions. CT chest yesterday did not show significant effusion but basilar consolidation. 02/20 Patient was extubated yesterday on 10L simple mask, on Precdex, Heparin and Milrinone drips. Tmax 101.1 yesterday 02/21: Febrile. Currently on 5 L nasal cannula. Continues on heparin drip with 500 units an hour. Received bumetanide 1 mg 1 today. Positive BM 02/22: Remains on 5 L nasal cannula. Remains on heparin drip. No changes neurologically remains medically stable. 02/23: Intubated early this morning secondary to acute respiratory failure. Blood pressure marginal likely due to sedation. Ejection fraction less than 20% . Discussed with at bedside. She was to proceed with tracheostomy in PEG tube placement. We will plan for within the next few days. 02/24: Remains sedated, orally intubated on mechanical ventilation. 02/25: Remains sedated, orally intubated on mechanical ventilation. Worsening renal function noted. Check UA, urine sodium and creatinine. Ordered Kayexalate for hyperkalemia and nephrology consulted. 02/26: Sedated, arousable, orally intubated on mechanical ventilation. Will hold Plavix for planned tracheostomy and PEG tube placement. Remains on heparin for anticoagulation. 02/27: Drowsy, arousable, orally intubated on mechanical ventilation. Awaiting tracheostomy and PEG tube placement. 02/28: Drowsy, arousable, remains orally intubated on mechanical ventilation. PEG tube scheduled for today. 03/01: Drowsy, arousable, remains orally intubated on mechanical ventilation. Underwent PEG tube placement on 02/28. Worsening thrombocytopenia noted and now down to 50,000. Will continue holding Plavix and heparin. Check HIT screen and consult hematology. Awaiting tracheostomy 03/02: Drowsy, arousable, remains orally intubated on mechanical vent relation. Hematology consult noted. 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 03/03: Intubated remains heavily sedated. Was unable to wean off the ventilator , became hypoxemic on CPAP yesterday. 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 Will transfuse 3 packed units of platelets prior to tracheostomy planned for 11 AM today. Platelet count 49,000 03/04 Trached yesterday. Had high residuals earlier today (500 mL) and tube feeds placed on hold. KUB unremarkable. Given reglan, now residual is 10 so resuming tube feeds. On CPAP via trach. Remains sedated on fentanyl and versed, will wean. 03/05 Bleeding at trach site overnight, argatroban was placed on hold. Hgb stable 7.4, platelet count 70k. Surgicell has been ordered but has not yet been applied. Off versed, fentanyl drip still running 50 mcg. He is more alert today , communicates his need to have his mouth suctioned. 03/06: No events over the night. T-max of 98.7. Urine output greater than 4 L over the last 24 hours. 03/07: Patient remains afebrile, with a T-max of 98.5. Urine output 2350 mL's over the last 24 hours. No acute events over the night. Patient is currently on CPAP trial 04/21 with respiratory rate in the mid to high teens with tidal volumes 3-400, comfortable. 03/08: No events over the night. Patient tolerated T piece yesterday and he was placed back on CPAP last night. This morning he is back on T piece. He is easily arousable and following some commands. He is complaining of back pain. T-max of 99.2, urine output of 2450 mL's over the last 24 hours. 03/09: Patient tolerated T piece yesterday and he was placed back on CPAP at night. This morning he is sleeping, easily arousable. No other events over the night. T-max of 99.2. I/O 1100/1000. Still having significant amount of diarrhea. 03/10: No events over the night. Patient currently on CPAP 10/5 doing well. T- max of 99.4. I/O 3233/2600. No bleeding upon suction. Still having diarrhea. He is awake, alert, complains of back pain. 03/11: No events over the night. Patient was on CPAP 10/5 over the night. Being switched to T-piece this morning. He is resting comfortable, in no distress. T-max of 98.7 over the last 24 hours. Subjective: 03/12: Afebrile. Remains on T piece 40% and tolerating well. Positive BM. Tolerating tube feeds. Arousable. Objective Vital Signs / I&O: Vital Signs 03/11/18 15:15 03/11/18 15:30 03/11/18 15:45 Temperature Pulse Rate 82 75 76 Respiratory Rate 25 H 24 23 Blood Pressure 103/64 100/62 100/63 Pulse Oximetry 100 100 100 03/11/18 16:00 03/11/18 16:15 03/11/18 16:30 Temperature Pulse Rate 76 81 77 Respiratory Rate 25 H 26 H 25 H Blood Pressure 100/59 L 96/61 L 101/62 Pulse Oximetry 100 100 100 03/11/18 16:45 03/11/18 17:00 03/11/18 17:15 Temperature Pulse Rate 79 80 80 Respiratory Rate 27 H 29 H 33 H Blood Pressure 105/64 101/63 105/66 Pulse Oximetry 100 100 96 03/11/18 17:30 03/11/18 17:45 03/11/18 18:00 Temperature Pulse Rate 72 81 77 Respiratory Rate 26 H 28 H 25 H Blood Pressure 102/59 L 101/63 110/68 Pulse Oximetry 100 100 100 03/11/18 18:15 03/11/18 18:30 03/11/18 18:45 Temperature Pulse Rate 77 73 74 Respiratory Rate 28 H 26 H 23 Blood Pressure 112/68 95/57 L 107/67 Pulse Oximetry 99 99 100 03/11/18 19:00 03/11/18 19:15 03/11/18 19:30 Temperature Pulse Rate 75 81 74 Respiratory Rate 22 25 H 21 Blood Pressure 108/69 110/72 113/70 Pulse Oximetry 100 97 100 03/11/18 19:45 03/11/18 20:00 03/11/18 20:15 Temperature 97.6 F Pulse Rate 77 74 75 Respiratory Rate 24 16 20 Blood Pressure 109/69 113/72 112/73 Pulse Oximetry 99 100 99 03/11/18 20:30 03/11/18 20:45 03/11/18 21:00 Temperature Pulse Rate 79 80 83 Respiratory Rate 24 23 27 H Blood Pressure 117/78 117/76 122/77 Pulse Oximetry 87 L 98 98 03/11/18 21:13 03/11/18 21:15 03/11/18 21:30 Temperature Pulse Rate 78 71 Respiratory Rate 21 22 21 Blood Pressure 112/72 117/75 Pulse Oximetry 100 100 100 03/11/18 21:45 03/11/18 22:00 03/11/18 22:15 Temperature Pulse Rate 80 75 77 Respiratory Rate 20 21 22 Blood Pressure 120/77 109/69 107/67 Pulse Oximetry 100 100 100 03/11/18 22:30 03/11/18 22:45 03/11/18 23:00 Temperature Pulse Rate 71 73 78 Respiratory Rate 22 20 17 Blood Pressure 110/68 103/65 110/70 Pulse Oximetry 100 100 100 03/11/18 23:15 03/11/18 23:30 03/11/18 23:45 Temperature Pulse Rate 80 76 72 Respiratory Rate 20 16 20 Blood Pressure 102/68 107/71 113/74 Pulse Oximetry 100 100 100 03/12/18 00:00 03/12/18 00:15 03/12/18 00:30 Temperature Pulse Rate 72 74 79 Respiratory Rate 20 17 20 Blood Pressure 110/71 108/70 106/67 Pulse Oximetry 100 100 100 03/12/18 00:45 08/26/18 01:00 03/12/18 01:15 Temperature Pulse Rate 75 76 83 Respiratory Rate 18 21 27 H Blood Pressure 109/70 111/71 108/68 Pulse Oximetry 100 100 100 03/12/18 01:20 03/12/18 01:30 03/12/18 01:45 Temperature Pulse Rate 74 82 Respiratory Rate 18 22 20 Blood Pressure 107/64 108/66 Pulse Oximetry 100 100 100 03/12/18 02:00 03/12/18 02:15 03/12/18 02:30 Temperature Pulse Rate 77 78 79 Respiratory Rate 17 18 18 Blood Pressure 107/67 102/64 100/64 Pulse Oximetry 100 95 100 03/12/18 02:45 03/12/18 03:00 03/12/18 03:15 Temperature Pulse Rate 77 81 76 Respiratory Rate 19 17 20 Blood Pressure 107/67 110/69 108/66 Pulse Oximetry 100 100 100 03/12/18 03:30 03/12/18 03:45 03/12/18 04:00 Temperature Pulse Rate 81 81 76 Respiratory Rate 21 21 16 Blood Pressure 111/69 104/63 104/64 Pulse Oximetry 99 100 100 03/12/18 04:15 03/12/18 04:30 03/12/18 04:45 Temperature Pulse Rate 74 80 84 Respiratory Rate 19 21 25 H Blood Pressure 104/65 109/68 112/74 Pulse Oximetry 100 100 100 03/12/18 05:00 03/12/18 05:15 03/12/18 05:30 Temperature Pulse Rate 82 79 71 Respiratory Rate 23 18 19 Blood Pressure 109/66 109/65 109/67 Pulse Oximetry 100 100 100 03/12/18 05:45 03/12/18 06:00 03/12/18 06:15 Temperature Pulse Rate 81 80 81 Respiratory Rate 18 19 22 Blood Pressure 106/65 110/68 110/69 Pulse Oximetry 95 99 100 03/12/18 06:30 03/12/18 06:45 03/12/18 07:00 Temperature Pulse Rate 85 82 79 Respiratory Rate 23 22 17 Blood Pressure 100/75 102/72 109/70 Pulse Oximetry 100 100 100 03/12/18 07:15 03/12/18 07:30 03/12/18 07:45 Temperature Pulse Rate 76 78 79 Respiratory Rate 17 19 18 Blood Pressure 111/69 107/65 112/68 Pulse Oximetry 100 100 100 03/12/18 08:00 03/12/18 08:15 03/12/18 08:30 Temperature Pulse Rate 86 78 80 Respiratory Rate 21 20 21 Blood Pressure 108/62 109/65 111/66 Pulse Oximetry 100 100 100 03/12/18 08:45 03/12/18 09:00 03/12/18 09:15 Temperature Pulse Rate 82 85 82 Respiratory Rate 19 24 23 Blood Pressure 115/72 116/69 111/65 Pulse Oximetry 100 100 100 03/12/18 09:25 03/12/18 09:30 03/12/18 09:45 Temperature Pulse Rate 89 84 Respiratory Rate 20 22 Blood Pressure 115/65 110/63 Pulse Oximetry 96 97 98 03/12/18 10:00 03/12/18 10:15 03/12/18 10:30 Temperature Pulse Rate 86 83 85 Respiratory Rate 25 H 24 24 Blood Pressure 111/70 111/65 103/64 Pulse Oximetry 89 L 99 96 03/12/18 10:45 03/12/18 11:00 03/12/18 11:15 Temperature Pulse Rate 82 83 90 Respiratory Rate 23 25 H 26 H Blood Pressure 110/63 113/66 116/69 Pulse Oximetry 99 98 96 03/12/18 11:30 03/12/18 11:45 03/12/18 12:00 Temperature Pulse Rate 89 83 81 Respiratory Rate 29 H 27 H 26 H Blood Pressure 115/68 115/69 113/69 Pulse Oximetry 98 97 98 03/12/18 12:15 03/12/18 12:30 03/12/18 12:45 Temperature Pulse Rate 82 85 82 Respiratory Rate 26 H 25 H 23 Blood Pressure 109/68 110/69 115/72 Pulse Oximetry 98 99 85 L 03/12/18 13:00 03/12/18 13:15 03/12/18 13:30 Temperature Pulse Rate 81 82 88 Respiratory Rate 24 26 H 27 H Blood Pressure 114/69 116/74 117/75 Pulse Oximetry 80 L 97 99 03/12/18 13:45 03/12/18 14:00 03/12/18 14:15 Temperature Pulse Rate 81 81 86 Respiratory Rate 24 23 26 H Blood Pressure 117/77 123/78 124/82 Pulse Oximetry 97 98 91 L Intake & Output 03/11/18 03/12/18 03/12/18 18:59 06:59 18:59 Intake Total 1728 / 1728 1290 / 1290 1460 / 1460 Output Total 1500 / 1500 1150 / 1150 Balance 228 / 228 140 / 140 1460 / 1460 Weight 69 kg Intake: IV 1728 / 1728 100 / 100 1460 / 1460 Novastan Inj 250 MG In NS Inj 213 / 213 247.5 ML @ 2 MCG/KG/MIN 7.56 mls/hr IV.CONT TITRATE PRN Rx#: [id number] D5W Inj 1,000 ML @ 42 mls/hr IV 650 / 650 1000 / 1000 .CONT .[id number] ADRIEN Rx#:[id number] Azactam Inj 1,000 MG In NS Inj 100 / 100 100 ML @ 200 mls/hr IV.SIG Q6H ADRIEN Rx#:[id number] Magnesium Sulfate 1 gm/D5W 100 100 / 100 ml Premix 100 ML @ 100 mls/hr IV.SIG Q1H ADRIEN Rx#:[id number] Magnesium Sulfate Inj 2 GM In 100 / 100 NS Inj 96 ML @ 50 mls/hr IV.SIG ONCE ONE Rx#:[id number] Ancef Inj 2,000 MG In NS Inj 200 / 200 100 / 100 100 / 100 100 ML @ 200 mls/hr IV.SIG Q8H ADRIEN Rx#:[id number] Tube Feeding 590 / 590 Water Bolus Amount 600 / 600 Output: Stool 250 / 250 300 / 300 Urine Amount (Catheter) 1250 / 1250 850 / 850 Indwelling Urethral Catheter 1250 / 1250 850 / 850 Other: Date of Last Bowel Movement 03/10/18 03/12/18 03/12/18 Result Diagrams: 03/12/18 04:07 03/12/18 04:07 Other Results: Microbiology 02/27/18 02:28 Blood - Peripheral Aerobic Blood Culture - Final No growth in 5 days 02/27/18 02:28 Blood - Peripheral Anaerobic Blood Culture - Final No growth in 5 days 02/27/18 02:20 Blood - Peripheral Aerobic Blood Culture - Final No growth in 5 days 02/27/18 02:20 Blood - Peripheral Anaerobic Blood Culture - Final No growth in 5 days 02/25/18 13:20 Catheterized Urine Urine Culture - Final Kaylen tropicalis 02/24/18 22:26 Sputum - Endotracheal Gram Stain - Final 02/24/18 22:26 Sputum - Endotracheal Sputum Culture - Final Light growth normal respiratory ursula 02/18/18 14:44 Sputum - Endotracheal Gram Stain - Final 02/18/18 14:44 Sputum - Endotracheal Sputum Culture - Final Pseudomonas aeruginosa 02/14/18 16:00 Sputum - Tracheal Aspirate Gram Stain - Final 02/14/18 16:00 Sputum - Tracheal Aspirate Sputum Culture - Final Pseudomonas aeruginosa 02/11/18 03:54 Blood - Peripheral Aerobic Blood Culture - Final No growth in 5 days 02/11/18 03:54 Blood - Peripheral Anaerobic Blood Culture - Final No growth in 5 days 02/11/18 03:49 Blood - Peripheral Aerobic Blood Culture - Final No growth in 5 days 02/11/18 03:49 Blood - Peripheral Anaerobic Blood Culture - Final No growth in 5 days 02/11/18 03:40 Sputum - Endotracheal Gram Stain - Final 02/11/18 03:40 Sputum - Endotracheal Sputum Culture - Final Pseudomonas aeruginosa Klebsiella pneumoniae 02/05/18 00:42 Blood - Peripheral Aerobic Blood Culture - Final No growth in 5 days 02/05/18 00:42 Blood - Peripheral Anaerobic Blood Culture - Final No growth in 5 days 02/05/18 00:12 Blood - Peripheral Aerobic Blood Culture - Final No growth in 5 days 02/05/18 00:12 Blood - Peripheral Anaerobic Blood Culture - Final No growth in 5 days 02/06/18 14:00 Sputum - Endotracheal Gram Stain - Final 02/06/18 14:00 Sputum - Endotracheal Sputum Culture - Final Moderate growth normal respiratory ursula Imaging: Abdomen/Bladder Ultrasound 02/05/18 00:00 CONCLUSION: 1. No evidence of hydronephrosis. 2. The echogenicity of the kidneys is equal to that of the liver which can be seen with medical renal disease. 3. Simple cyst in right kidney. 4. Suboptimal visualization of the left kidney. 5. Small amount of free fluid along the spleen. This could represent an adjacent pleural effusion. Chest X-Ray 02/05/18 01:14 CONCLUSION: 1. Left IJ central venous catheter now in place with tip at the cavoatrial junction. No evidence of pneumothorax. 2. Mild bilateral interstitial pulmonary opacity. Chest X-Ray 02/05/18 12:32 CONCLUSION: 1. Mild apparent increase in bilateral pulmonary infiltrates most characteristic of pulmonary edema. 2. Mild blunting of the costophrenic angles which could indicate small effusions. There is mild cardiomegaly again noted. Chest X-Ray 02/05/18 22:35 CONCLUSION: Increasing bilateral pulmonary infiltrates characteristic of pulmonary edema and increasing consolidation in the left lower lobe. Chest X-Ray 02/05/18 23:48 CONCLUSION: 1. Persistent bihilar mixed interstitial and airspace process suggesting some degree of vascular congestion or volume overload. No change. 2. Persistent left basilar consolidation/effusion. No change. 3. Interval placement of an endotracheal tube with the tip appropriately positioned above the renny Chest X-Ray 02/06/18 06:00 CONCLUSION: 1. Persistent bilateral, predominantly perihilar mixed interstitial and airspace process suggesting some degree of vascular congestion or volume overload. 2. Persistent left basilar consolidation/effusion. 3. Stable position of life-support tubes. Chest X-Ray 02/06/18 21:40 CONCLUSION: 1. Tip of balloon pump projecting over the junction of the aortic arch and the descending thoracic aorta. This is in good position. 2. Diffuse mixed interstitial and alveolar consolidation likely related to edema. 3. Suspected bilateral effusions. Chest X-Ray 02/08/18 06:00 CONCLUSION: 1. Improving radiographic appearance of the chest with resolving pulmonary edema. 2. Persistent bibasilar airspace disease with probable associated left-sided effusion. 3. Stable position of life-support tubes. Chest X-Ray 02/09/18 00:00 CONCLUSION: Nasogastric tube has been advanced into the stomach. Otherwise no significant change; bilateral airspace opacities and small effusions persist. Chest X-Ray 02/09/18 07:06 CONCLUSION: 1. Left lung base opacity is present may be due to a combination of consolidation and or pleural effusion. 2. The tip of the NG tube is in distal esophagus and is to be advanced. Chest X-Ray 02/09/18 15:00 CONCLUSION: Bilateral lower lobe atelectasis versus pneumonia. There has been no significant change when compared to the prior exam. Chest X-Ray 02/10/18 06:00 CONCLUSION: 1. No significant interval change. 2. Stable bilateral lower lobe airspace disease with trace pleural effusions. Chest X-Ray 02/11/18 06:00 CONCLUSION: 1. Stable tubes and lines. 2. Improved aeration in the right lower lung zone. 3. Persistent left lower lung zone airspace disease and likely trace pleural effusion. Chest X-Ray 02/12/18 06:00 CONCLUSION: 1. No significant interval change. 2. Stable ETT and NGT. 3. Stable mild left lower lung zone airspace disease and likely trace pleural effusion. Chest X-Ray 02/13/18 06:00 CONCLUSION: Increased opacification now noted in the left lung base which could indicate infiltrate and/or effusion. Chest X-Ray 02/15/18 06:00 CONCLUSION: Hazy opacity is now noted in the perihilar regions and both lung bases as well as a small left effusion. The findings are most characteristic of congestive heart failure. Head CT 02/15/18 12:23 CONCLUSION: 1. Negative CT Head non contrast. . Head MRI 02/16/18 08:28 CONCLUSION: 1. New focus of restricted diffusion high along the right cerebral vertex measuring 8 mm consistent with a new small focal acute infarction. 2. There is a new 5 mm area restricted diffusion high along the left cerebral vertex consistent with a new small focal acute infarction. 3. 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 This area is stable compared to the prior examination. 4. Stable bilateral cortical atrophy and mild chronic white matter changes. 5. Chronic bilateral mastoiditis. Abdomen X-Ray 02/17/18 00:00 CONCLUSION: Nonspecific bowel gas pattern. Chest CT 02/18/18 00:00 CONCLUSION: 1. Increasing basilar and dependent consolidation in both lungs most characteristic of pneumonia or aspiration. 2. Near complete resolution of previous small effusions. 3. Osteopenia with stable compression deformities in the spine. 4. Previous sternotomy with aortic valve replacement. 5. Right-sided central line, ET tube and NG tube in good position. Chest X-Ray 02/18/18 00:00 CONCLUSION: 1. Persistent left lower lobe consolidation and increasing partially consolidative opacities in the right lower lung. Chest X-Ray 02/19/18 06:00 CONCLUSION: 1. Persistent left lower lobe consolidation. 2. Improving right lower lung infiltrate. Chest X-Ray 02/20/18 06:00 CONCLUSION: Bilateral infiltrates are noted as above. Chest X-Ray 02/23/18 05:59 CONCLUSION: Hazy density overlies the left chest suspect for layering effusion with persistent consolidation of the left lower lobe. Endotracheal tube placement as above. Chest X-Ray 02/23/18 06:00 CONCLUSION: Stable appearance of the chest. Chest X-Ray 02/24/18 06:00 CONCLUSION: Stable chest x-ray with atelectasis at the right lung base and volume loss versus consolidation in the left lower lobe. Chest X-Ray 03/03/18 12:28 CONCLUSION: Increase in basilar airspace disease and pleural effusions since February 24. Tracheostomy in good position. Previous sternotomy with aortic valve replacement. Abdomen X-Ray 03/04/18 00:00 CONCLUSION: Paucity of bowel gas in the abdomen. Nondilated small air-filled segment of the ascending colon seen. Chest X-Ray 03/04/18 06:00 CONCLUSION: Diffuse increased interstitial markings likely related to edema. Bibasilar areas of consolidation, atelectasis, and/or effusion being worse on the left. Chest X-Ray 03/08/18 06:00 CONCLUSION: Worsening bilateral pulmonary infiltrates with suspected small bilateral pleural effusions. Chest X-Ray 03/11/18 00:00 CONCLUSION: 1. Persistent bibasilar airspace disease with associated effusions. 2. Improving aeration in the upper lungs, particularly on the right. Chest X-Ray 03/12/18 00:00 CONCLUSION: Persistent bilateral airspace disease with associated effusions. There appears to be some interval worsening on the right. Objective Remarks: GENERAL: 62-year-old gentleman, awake, alert, ill-appearing, on vent. HEENT: Pupils are equal and reactive, sclera anicteric. Trach in place. No JVD. CARDIOVASCULAR: Regular heart sounds, no murmurs appreciated. RESPIRATORY: Scattered coarse breath sounds bilateral. No wheezes. Good air entry. GASTROINTESTINAL: Abdomen soft, not tender, not distended, bowel sounds are present. PEG in in place. MUSCULOSKELETAL: Extremities with bilateral trace lower extremity edema. Peripheral pulses are present. NEURO: Awake, alert, following commands. Wiggles toes bilaterally and moves right upper extremity. Assessment and Plan - Assessment and Plan Plan: NEURO/PSYCH: History of stroke in 2015 Neuropathy left upper and lower extremity Chronic low back pain Continue ASA 81 mg daily. Continue pregabalin 150 mg p.o. twice daily. Holding duloxetine 90 mg p.o. daily. 02/15 CT brain: No acute findings. 02/15 EEG : Encephalopathy, no epileptiform activity MRI brain 02/16: New small focal acute infarction right cerebral vertex and also left cerebral vertex. Neuro has followed. RESP: Acute hypoxic respiratory failure -unchanged, on minimal O2 requirements, tolerating T piece during daytime and CPAP at night COPD on 2.5 L home O2 Prior tobacco abuse Bilateral pleural effusions Perc trach 03/03. T-piece during daytime and CPAP at night as tolerated Albuterol/ipratropium aerosols every 6 hours with albuterol aerosols every 2 hours as needed for dyspnea Vent bundle Patient has been on methylprednisolone succinate 40mg IV daily. Decreased to 20 mg IV daily starting 03/07 -slow taper since he was on steroids for a long time CV: V. tach/V. fib arrest -resolved NSTEMI Cardiogenic shock -resolved Acute systolic heart failure Atrial fibrillation with RVR [place] mechanical aortic valve (09/21/12 Dr. Gonzalez) s/p Tricuspid annuloplasty On amiodarone 400mg BID, carvedilol 3.125mg BID Continue aspirin 81 mg daily Clopidogrel is on hold since 02/26 for trach and PEG and will resume when plt > 80 per hematology Continue atorvastatin 40 mg nightly. Spironolactone stopped in v/o hyperkalemia on 02/25 s/p cath And PCI -proximal LAD and large diagonal 90% stenosis, 2 BMS stent 02/05, mid LAD vasospasm post PCI Off IABP 02/08/18 [place] 01/23/18no vegetation. Normal aortic mechanical valve with trivial aortic insufficiency. Tricuspid annuloplasty. Mild to moderate LV generalized hypokinesis Echo from 02/05: EF <20%, diffuse hypokinesis, bioprosthetic valve [employer] is Romana Bartlett GI: Moderate protein calorie malnutrition with hypoalbuminemia Jevity 1.5 now at goal 50 ml/hr. with free water 300 cc every 6 hours Status post PEG tube placement Lansoprazole for stress ulcer prophylactic Had normal EGD on 10/21/17 FEN/RENAL: Acute kidney injury -creatinine is improved urine output is appropriate Hypopotassemia BPH Hypomagnesemia Hypo-phosphatemia Continue free water at 300 cc every 6 hours Monitor renal function, I/O's, creatinine slowly improving. Renal ultrasound to evaluate for evidence of obstruction -did not show any obstruction Discontinued bumetanide 1mg IV daily , spironolactone 25 mg twice daily stopped on 02/25 due to hyperkalemia and worsening renal function.. 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 difficile colitis -still having diarrhea Funguria Discontinued IV vancomycin and gentamicin 02/20. Cefepime IV discontinued on and patient started on aztreonam and cefazolin IV Currently on cefazolin and p.o. Vanco Fluconazole was discontinued by ID on 03/07. Aztreonam is been discontinued as well C.diff tx: po vanco 02/11/18. 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 Continue holding Plavix and heparin. Hematology consulted for worsening thrombocytopenia. 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 Bleeding from trach resolved with surgicell. Resumed argatroban 03/05. 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 Now on argatroban. Protonix for stress ulcer prophylaxis ACCESS: Left IJ central line placed 02/05/18. Now removed and PIV in place. Palliative care is following. No family present at bedside. Level 2 follow-up
[2018-03-12] MEDS: Morphine Inj 4 MG/ML Vial IV.PUSH PRN ×2 (16:12→22:25)
[2018-03-12] MEDS: Argatroban Inj 250 MG in Sodium Chlor 0.9% Inj 247.5 ML IV.CONT PRN (22:12)
[2018-03-13] MEDS: Insulin NovoLOG Aspart Correctional Sugar Inj SQ SCH ×4 (00:14→18:11)
[2018-03-13] MEDS: Oral Hygiene Kit OROPHARYNG SCH ×4 (00:15→18:11)
[2018-03-13] MEDS: Morphine Inj 4 MG/ML Vial IV.PUSH PRN ×5 (06:29→20:48)
[2018-03-13 07:04] LABS: Baso % (Auto) 0.2 % (0.0-2.0); Eos % (Auto) 0.1 % (0.0-4.0); Hematocrit 25.3 % (39.0-51.0); Hemoglobin 8.5 gm/dL (13.0-17.0); Lymph # (Auto) 0.4 th/mm3 (1.0-4.8); Lymph % (Auto) 16.4 % (9.0-44.0); Mean Corpuscular HGB Conc 33.5 % (32.0-36.0); Mean Corpuscular Hemoglobin 32.7 pg (27.0-34.0); Mean Corpuscular Volume 97.4 fL (80.0-100.0); Mean Platelet Volume 11.2 fL (7.0-11.0); Mono # (Auto) 0.1 th/mm3 (0.0-0.9); Mono % (Auto) 6.1 % (0.0-8.0); Neut # (Auto) 1.7 th/mm3 (1.8-7.7); Neut % (Auto) 77.2 % (16.0-70.0); Platelet Count 56 th/mm3 (150-450); Red Blood Count 2.59 mil/mm3 (4.50-5.90); Red Cell Distribution Width 22.7 % (11.6-17.2); White Blood Count 2.2 th/mm3 (4.0-11.0)
[2018-03-13 07:33] LABS: Alanine Aminotransferase 20 U/L (12-78); Albumin 1.6 g/dL (3.4-5.0); Alkaline Phosphatase 58 U/L (45-117); Anion Gap 12 meq/L (5-15); Aspartate Aminotransferase 41 U/L (15-37); Blood Urea Nitrogen 24 mg/dL (7-18); Calcium 7.2 mg/dL (8.5-10.1); Chloride 112 meq/L (98-107); Glomerular Filtration Rate Greater Than 89 mL/min (>89); Glucose,Random 127 mg/dL (74-106); Magnesium 1.8 mg/dL (1.5-2.5); Potassium 3.3 meq/L (3.5-5.1); Sodium 144 meq/L (136-145); Total Protein 5.4 g/dL (6.4-8.2)
[2018-03-13 08:17] LABS: Platelet Morphology Normal (Normal)
[2018-03-13] MEDS: Pregabalin 75 MG Capsule PO SCH ×2 (09:01→20:44)
[2018-03-13] MEDS: Senna/Docusate Sodium 8.6/50 MG Tablet PO SCH ×2 (09:01→20:45)
[2018-03-13] MEDS: Ascorbic Acid 500 MG Tablet NG/OG SCH (09:01)
[2018-03-13] MEDS: Amiodarone 200 MG Tablet G-TUBE SCH ×2 (09:01→20:44)
[2018-03-13] MEDS: Ferrrous Sulfate 300 MG/5 ML UDC PO SCH (09:01)
[2018-03-13] MEDS: MethylPREDNISolone Sod Succinate Inj 40 MG/ML Vial IV.PUSH SCH (09:02)
[2018-03-13] MEDS: Hypromellose 0.3% Opth Gel 10 GM Bottle EACH EYE SCH ×2 (09:02→20:44)
[2018-03-13] MEDS: Chlorhexidine 0.12% Oral Kit 15 ML UDC OROPHARYNG SCH ×2 (09:03→20:42)
[2018-03-13] MEDS: Beneprotein Powder Packet G-TUBE SCH ×3 (09:03→18:11)
--- NOTE | 2018-03-13 10:32 | P.PNCC ---
Subjective Subjective Remarks/Hospital Course: 62-year-old male with past medical history of [place] mechanical aortic valve (09/21/12 Dr. Gonzalez), on chronic anticoagulation with warfarin, atrial fibrillation postop from AVR , COPD on 2.5 L home O2, stroke in 2015 resulting in left-sided sensory deficits and neuropathy, osteoporosis with chronic low back pain. He was recently admitted to [facility] from 01/23 through 01/31/18 for MSSA bacteremia. It is believed that the original source of infection was a wound on his right index finger when electric drill slipped and created a puncture wound. He was discharged with right upper extremity PICC line receiving cefazolin 2 g IV every 8 hours and gentamicin 210 mg IV daily. He states that home health administered antibiotics at 17:00 and shortly thereafter he began having chills and rigors and sought medical attention at [facility]. He had no rash. Upon arrival, he was hypotensive in the low 80s. He was given 2 L S bolus but remained hypotensive so was started on Levophed. He then developed heart rate in the 140s, reportedly atrial flutter so he was started on Amiodarone drip in [place] and converted to sinus rhythm. He was transfused 2 units PRBC due to Hgb 9.3. His stool was nonbloody nonmelena but was Hemoccult positive. He was given zosyn and vancomycin. Critical care medicine was then contacted and accepted patient for transfer to [facility]. He denies tenderness/redness/drainage at PICC site. Aside from mechanical aortic valve, he has no other hardware or indwelling devices. He denies headache, cough, dysuria. He has had a few loose stools at home, but stools have sometimes been formed. He denies chest pain, does report some SOB. EKG at [place] had marked inferolateral ischemic changes. Obtained EKG upon arrival to [facility] which is improved. SUBJ 02/05: Patient remains critical ill appearing, complaints of chest tightness but denies pain. Remains on 8 mcg/min of Levophed to maintain map about 65. However increasing shortness of breath. Chest x-ray shows increasing pulmonary edema. Troponin was 27.5 currently on IV heparin therapeutic. Cardiology consult is pending at this time. I will stop on maintenance fluids give 40 mg IV Lasix and IV albumin 25 g 1. 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 with LAD stent complicated by vasospasm of the LAD. IABP placed. patient emergently intubated for acute hypoxic respiratory failure secondary to cardiogenic shock and pulmonary edema. started on milrinone at 0.375 mcg/kg/min and levophed. bumex drip started. remains critically ill. 02/07: Remains critically ill remains on Levophed and milrinone. Currently diuresing well with Bumex drip. IABP in place management per cardiology-good waveform and augmentation. Chest x-ray shows adequate positioning of IABP, diffuse bilateral pulmonary edema 02/08: Remains critical but showing some signs of improvement. Diuresing very well on Bumex infusion. Remains on Levophed and milrinone. IABP one-to-one with good augmentation management per cardiology. Chest x-ray shows improving edema but with persistent bilateral effusions. Will initiate weaning trials if tolerated 02/09: Still remains on pressors, unable to wean Levophed below 2 mcg/min. Milrinone currently on 0.375 mcg/kg/min. IABP removed yesterday. On sedation hold patient wakes up but remains lethargic. Weakly squeezes hand. Urine output excellent on Bumex, 4 L output in 24 hours. Will attempt CPAP today 02/10: Multiple episodes of V. fib V. tach arrest yesterday morning. Successfully resuscitated. Yesterday night had two-minute V. fib arrest return of spontaneous circulation in sinus rhythm after DC cardioversion 1. Currently remains on milrinone and low-dose Levophed. I will try to wean off Levophed introduce low-dose beta-rasheed due to recurrent arrhythmia. Keep potassium more than 4 magnesium more than 2 02/11: Patient still critical and cardiogenic shock requiring Levophed and milrinone. Urine output improved with adding Diamox. Approximately 2 L urine output in 24 hours, creatinine remained stable. Oxygenation slightly improved FiO2 reduced to 70% now. Overall prognosis remains poor family wants to continue aggressive care 02/12: Remains critical but slight improvement in oxygenation. But continues to require Levophed and milrinone the low-dose. Urine output remains adequate. Chest x-ray shows interval improvement. Creatinine remains stable to slightly improved. Add IV albumin to improve blood pressure and to promote diuresis. 02/13 Patient remains intubated and sedated with Versed and fentanyl. Afebrile, off Levophed remains on Milrinone and Heparin drip. 02/14: Hypothermic overnight. Remains on milrinone and heparin drips. Tolerating tube feeds at 20 cc now. Positive BM. No changes neurologically 02/15 Patient remains sedated with Versed and Fentanyl drips, on Milrinone 0.5. 02/16 Patient remains intubated sedated with Versed and Fentanyl infusion. On Milrinone and Heparin drips. CT brain yesterday showed no acute findings. Afebrile. 02/17 Patient remains sedated and intubated. Afebrile, On Milrinone and Heparin drip. 02/18: Remains critical continues to require milrinone. Urine output adequate. Chest x-ray shows bilateral infiltrate effusion. CT chest to better define effusions and infiltrate. Increase Bumex to 1 mg every 8 hours. Patient is persistently weak, will attempt SBT unlikely to be successfully extubated at this time. Most likely will need tracheostomy if family desires aggressive care 02/19: Remains intubated sedated with Versed and fentanyl. Transition to Precedex to facilitate weaning trials. Patient responding slightly more to verbal command, appears to track even though not following commands. Creatinine slightly increased with increased diuresis. Chest x-ray shows improved pleural effusions. CT chest yesterday did not show significant effusion but basilar consolidation. 02/20 Patient was extubated yesterday on 10L simple mask, on Precdex, Heparin and Milrinone drips. Tmax 101.1 yesterday 02/21: Febrile. Currently on 5 L nasal cannula. Continues on heparin drip with 500 units an hour. Received bumetanide 1 mg 1 today. Positive BM 02/22: Remains on 5 L nasal cannula. Remains on heparin drip. No changes neurologically remains medically stable. 02/23: Intubated early this morning secondary to acute respiratory failure. Blood pressure marginal likely due to sedation. Ejection fraction less than 20% . Discussed with at bedside. She was to proceed with tracheostomy in PEG tube placement. We will plan for within the next few days. 02/24: Remains sedated, orally intubated on mechanical ventilation. 02/25: Remains sedated, orally intubated on mechanical ventilation. Worsening renal function noted. Check UA, urine sodium and creatinine. Ordered Kayexalate for hyperkalemia and nephrology consulted. 02/26: Sedated, arousable, orally intubated on mechanical ventilation. Will hold Plavix for planned tracheostomy and PEG tube placement. Remains on heparin for anticoagulation. 02/27: Drowsy, arousable, orally intubated on mechanical ventilation. Awaiting tracheostomy and PEG tube placement. 02/28: Drowsy, arousable, remains orally intubated on mechanical ventilation. PEG tube scheduled for today. 03/01: Drowsy, arousable, remains orally intubated on mechanical ventilation. Underwent PEG tube placement on 02/28. Worsening thrombocytopenia noted and now down to 50,000. Will continue holding Plavix and heparin. Check HIT screen and consult hematology. Awaiting tracheostomy 03/02: Drowsy, arousable, remains orally intubated on mechanical vent relation. Hematology consult noted. 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 03/03: Intubated remains heavily sedated. Was unable to wean off the ventilator , became hypoxemic on CPAP yesterday. 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 Will transfuse 3 packed units of platelets prior to tracheostomy planned for 11 AM today. Platelet count 49,000 03/04 Trached yesterday. Had high residuals earlier today (500 mL) and tube feeds placed on hold. KUB unremarkable. Given reglan, now residual is 10 so resuming tube feeds. On CPAP via trach. Remains sedated on fentanyl and versed, will wean. 03/05 Bleeding at trach site overnight, argatroban was placed on hold. Hgb stable 7.4, platelet count 70k. Surgicell has been ordered but has not yet been applied. Off versed, fentanyl drip still running 50 mcg. He is more alert today , communicates his need to have his mouth suctioned. 03/06: No events over the night. T-max of 98.7. Urine output greater than 4 L over the last 24 hours. 03/07: Patient remains afebrile, with a T-max of 98.5. Urine output 2350 mL's over the last 24 hours. No acute events over the night. Patient is currently on CPAP trial 04/21 with respiratory rate in the mid to high teens with tidal volumes 3-400, comfortable. 03/08: No events over the night. Patient tolerated T piece yesterday and he was placed back on CPAP last night. This morning he is back on T piece. He is easily arousable and following some commands. He is complaining of back pain. T-max of 99.2, urine output of 2450 mL's over the last 24 hours. 03/09: Patient tolerated T piece yesterday and he was placed back on CPAP at night. This morning he is sleeping, easily arousable. No other events over the night. T-max of 99.2. I/O 1100/1000. Still having significant amount of diarrhea. 03/10: No events over the night. Patient currently on CPAP 10/5 doing well. T- max of 99.4. I/O 3233/2600. No bleeding upon suction. Still having diarrhea. He is awake, alert, complains of back pain. 03/11: No events over the night. Patient was on CPAP 10/5 over the night. Being switched to T-piece this morning. He is resting comfortable, in no distress. T-max of 98.7 over the last 24 hours. Subjective: 03/12: Afebrile. Remains on T piece 40% and tolerating well. Positive BM. Tolerating tube feeds. Arousable. 03/13 Patient remains on ventilator, tolerated TP's x 4 hrs yesterday. Afebrile. On Argatroban drip. Objective Vital Signs / I&O: Vital Signs 03/12/18 10:30 03/12/18 10:45 03/12/18 11:00 Temperature Pulse Rate 85 82 83 Respiratory Rate 24 23 25 H Blood Pressure 103/64 110/63 113/66 Pulse Oximetry 96 99 98 03/12/18 11:15 03/12/18 11:30 03/12/18 11:45 Temperature Pulse Rate 90 89 83 Respiratory Rate 26 H 29 H 27 H Blood Pressure 116/69 115/68 115/69 Pulse Oximetry 96 98 97 03/12/18 12:00 03/12/18 12:15 03/12/18 12:30 Temperature Pulse Rate 81 82 85 Respiratory Rate 26 H 26 H 25 H Blood Pressure 113/69 109/68 110/69 Pulse Oximetry 98 98 99 03/12/18 12:45 08/26/18 13:00 03/12/18 13:15 Temperature Pulse Rate 82 81 82 Respiratory Rate 23 24 26 H Blood Pressure 115/72 114/69 116/74 Pulse Oximetry 85 L 80 L 97 03/12/18 13:30 03/12/18 13:45 03/12/18 14:00 Temperature Pulse Rate 88 81 81 Respiratory Rate 27 H 24 23 Blood Pressure 117/75 117/77 123/78 Pulse Oximetry 99 97 98 03/12/18 14:15 03/12/18 14:30 03/12/18 14:45 Temperature Pulse Rate 86 83 82 Respiratory Rate 26 H 25 H 23 Blood Pressure 124/82 123/77 124/73 Pulse Oximetry 91 L 98 94 L 03/12/18 15:00 03/12/18 15:15 03/12/18 15:30 Temperature Pulse Rate 84 80 82 Respiratory Rate 25 H 23 25 H Blood Pressure 127/75 121/73 118/72 Pulse Oximetry 99 93 L 99 03/12/18 15:46 03/12/18 16:00 03/12/18 16:15 Temperature Pulse Rate 84 85 94 H Respiratory Rate 25 H 27 H 31 H Blood Pressure 115/67 117/78 131/85 Pulse Oximetry 97 99 94 L 03/12/18 17:08 03/12/18 17:26 03/12/18 17:52 Temperature Pulse Rate 87 Respiratory Rate 27 H 22 25 H Blood Pressure Pulse Oximetry 96 03/12/18 18:00 03/12/18 20:00 03/12/18 21:25 Temperature 99.4 F Pulse Rate 92 H 86 94 H Respiratory Rate 17 22 Blood Pressure 109/66 Pulse Oximetry 100 100 03/12/18 22:00 03/12/18 22:30 03/13/18 00:00 Temperature 98.9 F Pulse Rate 94 H 84 Respiratory Rate 16 16 Blood Pressure 98/62 L Pulse Oximetry 100 03/13/18 01:08 03/13/18 02:00 03/13/18 04:00 Temperature 98.4 F Pulse Rate 81 72 Respiratory Rate 20 19 Blood Pressure 94/57 L Pulse Oximetry 100 100 03/13/18 05:15 03/13/18 06:00 03/13/18 06:54 Temperature Pulse Rate 79 74 Respiratory Rate 19 15 Blood Pressure Pulse Oximetry 99 03/13/18 08:00 03/13/18 09:03 Temperature Pulse Rate 90 91 H Respiratory Rate 18 Blood Pressure Pulse Oximetry 100 Intake & Output 03/12/18 03/13/18 03/13/18 18:59 06:59 18:59 Intake Total 2865 / 2865 793 / 793 Output Total 1100 / 1100 900 / 900 Balance 1765 / 1765 -107 / -107 Weight 68.5 kg Intake: IV 2060 / 2060 450 / 450 Novastan Inj 250 MG In NS Inj 250 / 250 247.5 ML @ 2 MCG/KG/MIN 7.56 mls/hr IV.CONT TITRATE PRN Rx#: [id number] D5W Inj 1,000 ML @ 42 mls/hr IV 1500 / 1500 .CONT .[id number] ADRIEN Rx#:[id number] Magnesium Sulfate 1 gm/D5W 100 200 / 200 ml Premix 100 ML @ 100 mls/hr IV.SIG Q1H ADRIEN Rx#:[id number] Ancef Inj 2,000 MG In NS Inj 100 / 100 200 / 200 100 ML @ 200 mls/hr IV.SIG Q8H ADRIEN Rx#:[id number] Tube Feeding 805 / 805 343 / 343 Output: Stool 350 / 350 300 / 300 Urine Amount (Catheter) 750 / 750 600 / 600 Indwelling Urethral Catheter 750 / 750 600 / 600 Other: Date of Last Bowel Movement 03/12/18 03/12/18 Result Diagrams: 03/13/18 05:25 03/13/18 05:25 Other Results: Laboratory Results - last 12 hr 03/12/18 03/13/18 03/13/18 23:58 05:25 05:25 WBC 2.2 L RBC 2.59 L Hgb 8.5 L Hct 25.3 L MCV 97.4 MCH 32.7 MCHC 33.5 RDW 22.7 H Plt Count 56 L MPV 11.2 H Prelim Diff (Auto) Slide review pending Neut % (Auto) 77.2 H Lymph % (Auto) 16.4 [place] % (Auto) 6.1 Eos % (Auto) 0.1 Baso % (Auto) 0.2 Neut # (Auto) 1.7 L Lymph # (Auto) 0.4 L [place] # (Auto) 0.1 Eos # (Auto) 0.0 Baso # (Auto) 0.0 WBC Differential . Diff Scan Auto diff confirmed Differential Comment . Platelet Estimate Low L Platelet Morphology Normal Sodium 144 Potassium 3.3 L Chloride 112 H Carbon Dioxide 20.0 L Anion Gap 12 BUN 24 H Creatinine 0.84 Estimated GFR Greater than 89 POC Glucose 129 H Random Glucose 127 H Calcium 7.2 L* Prot Corrected Calcium 8.1 L Phosphorus 2.0 L Magnesium 1.8 Total Bilirubin 0.3 AST 41 H ALT 20 Alkaline Phosphatase 58 Total Protein 5.4 L Albumin 1.6 L 03/13/18 05:53 WBC RBC Hgb Hct MCV MCH MCHC RDW Plt Count MPV Prelim Diff (Auto) Neut % (Auto) Lymph % (Auto) [place] % (Auto) Eos % (Auto) Baso % (Auto) Neut # (Auto) Lymph # (Auto) [place] # (Auto) Eos # (Auto) Baso # (Auto) WBC Differential Diff Scan Differential Comment Platelet Estimate Platelet Morphology Sodium Potassium Chloride Carbon Dioxide Anion Gap BUN Creatinine Estimated GFR POC Glucose 144 H Random Glucose Calcium Prot Corrected Calcium Phosphorus Magnesium Total Bilirubin AST ALT Alkaline Phosphatase Total Protein Albumin Imaging: Abdomen/Bladder Ultrasound 02/05/18 00:00 CONCLUSION: 1. No evidence of hydronephrosis. 2. The echogenicity of the kidneys is equal to that of the liver which can be seen with medical renal disease. 3. Simple cyst in right kidney. 4. Suboptimal visualization of the left kidney. 5. Small amount of free fluid along the spleen. This could represent an adjacent pleural effusion. Head CT 02/15/18 12:23 CONCLUSION: 1. Negative CT Head non contrast. . Head MRI 02/16/18 08:28 CONCLUSION: 1. New focus of restricted diffusion high along the right cerebral vertex measuring 8 mm consistent with a new small focal acute infarction. 2. There is a new 5 mm area restricted diffusion high along the left cerebral vertex consistent with a new small focal acute infarction. 3. 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 This area is stable compared to the prior examination. 4. Stable bilateral cortical atrophy and mild chronic white matter changes. 5. Chronic bilateral mastoiditis. Chest CT 02/18/18 00:00 CONCLUSION: 1. Increasing basilar and dependent consolidation in both lungs most characteristic of pneumonia or aspiration. 2. Near complete resolution of previous small effusions. 3. Osteopenia with stable compression deformities in the spine. 4. Previous sternotomy with aortic valve replacement. 5. Right-sided central line, ET tube and NG tube in good position. Abdomen X-Ray 03/04/18 00:00 CONCLUSION: Paucity of bowel gas in the abdomen. Nondilated small air-filled segment of the ascending colon seen. Chest X-Ray 03/12/18 00:00 CONCLUSION: Persistent bilateral airspace disease with associated effusions. There appears to be some interval worsening on the right. Objective Remarks: GENERAL: 62-year-old gentleman, awake, alert, ill-appearing, on vent. HEENT: Pupils are equal and reactive, sclera anicteric. Trach in place. No JVD. CARDIOVASCULAR: Regular heart sounds, no murmurs appreciated. RESPIRATORY: Scattered coarse breath sounds bilateral. No wheezes. Good air entry. GASTROINTESTINAL: Abdomen soft, not tender, not distended, bowel sounds are present. PEG in in place. MUSCULOSKELETAL: Extremities with bilateral trace lower extremity edema. Peripheral pulses are present. NEURO: Awake, alert, following commands. Wiggles toes bilaterally and moves right upper extremity. Assessment and Plan - Assessment and Plan Plan: NEURO/PSYCH: History of stroke in 2015 Neuropathy left upper and lower extremity Chronic low back pain Contin On no sedation, monitor neuro status On ASA 81 mg daily. Continue pregabalin 150 mg p.o. twice daily. Holding duloxetine 90 mg p.o. daily. 02/15 CT brain: No acute findings. 02/15 EEG : Encephalopathy, no epileptiform activity MRI brain 02/16: New small focal acute infarction right cerebral vertex and also left cerebral vertex. Neuro has followed. RESP: Acute hypoxic respiratory failure -unchanged, on minimal O2 requirements, tolerating T piece during daytime and CPAP at night COPD on 2.5 L home O2 Prior tobacco abuse Bilateral pleural effusions Perc trach 03/03. Continue with vent support keep sats >92% T-piece during daytime as garrett and CPAP at night as tolerated Albuterol/ipratropium aerosols every 6 hours with albuterol aerosols every 2 hours as needed for dyspnea Vent bundle Patient has been on methylprednisolone succinate 40mg IV daily. Decreased to 20 mg IV daily starting 03/07 -slow taper since he was on steroids for a long time CV: V. tach/V. fib arrest -resolved NSTEMI Cardiogenic shock -resolved Acute systolic heart failure Atrial fibrillation with RVR [place] mechanical aortic valve (09/21/12 Dr. Gonzalez) s/p Tricuspid annuloplasty Monitor HR and BP keep MAP>65mmHg On amiodarone 400mg BID, carvedilol 3.125mg BID Continue aspirin 81 mg daily Clopidogrel is on hold since 02/26 for trach and PEG and will resume when plt > 80 per hematology Continue atorvastatin 40 mg nightly. s/p cath And PCI -proximal LAD and large diagonal 90% stenosis, 2 BMS stent 02/05, mid LAD vasospasm post PCI Off IABP 02/08/18 [place] 01/23/18no vegetation. Normal aortic mechanical valve with trivial aortic insufficiency. Tricuspid annuloplasty. Mild to moderate LV generalized hypokinesis Echo from 02/05: EF <20%, diffuse hypokinesis, bioprosthetic valve Setter Up is Romana Bartlett GI: Moderate protein calorie malnutrition with hypoalbuminemia Jevity 1.5 now at goal 50 ml/hr. with free water 300 cc every 6 hours Status post PEG tube placement Lansoprazole for stress ulcer prophylactic Had normal EGD on 10/21/17 FEN/RENAL: Acute kidney injury -creatinine is improved urine output is appropriate Hypopotassemia BPH Hypomagnesemia Hypo-phosphatemia Continue free water at 300 cc every 6 hours Monitor renal function, I/O's, creatinine slowly improving. 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 difficile colitis -still having diarrhea Funguria Currently on cefazolin and p.o. Vanco Infectious disease following. 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 Continue holding Plavix and heparin. Hematology consulted for worsening thrombocytopenia. 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 Monitor Coags No bleeding from trach site ENDO: SSI to maintain euglycemia PROPH: on argatroban. Protonix for stress ulcer prophylaxis ACCESS: PIV in place. Palliative care is following. No family present at bedside. Level 3 follow-up
--- NOTE | 2018-03-13 13:26 | P.PNONC ---
Subjective Interval history: Afebrile, is at the bedside. Patient reports back pain. Appears uncomfortable, fidgeting right leg. Objective Vital Signs/Intake & Output: Vital Signs 03/12/18 13:30 03/12/18 13:45 03/12/18 14:00 Temperature Pulse Rate 88 81 81 Respiratory Rate 27 H 24 23 Blood Pressure 117/75 117/77 123/78 Pulse Oximetry 99 97 98 03/12/18 14:15 03/12/18 14:30 03/12/18 14:45 Temperature Pulse Rate 86 83 82 Respiratory Rate 26 H 25 H 23 Blood Pressure 124/82 123/77 124/73 Pulse Oximetry 91 L 98 94 L 03/12/18 15:00 03/12/18 15:15 03/12/18 15:30 Temperature Pulse Rate 84 80 82 Respiratory Rate 25 H 23 25 H Blood Pressure 127/75 121/73 118/72 Pulse Oximetry 99 93 L 99 03/12/18 15:46 03/12/18 16:00 03/12/18 16:15 Temperature Pulse Rate 84 85 94 H Respiratory Rate 25 H 27 H 31 H Blood Pressure 115/67 117/78 131/85 Pulse Oximetry 97 99 94 L 03/12/18 17:08 03/12/18 17:26 03/12/18 17:52 Temperature Pulse Rate 87 Respiratory Rate 27 H 22 25 H Blood Pressure Pulse Oximetry 96 03/12/18 18:00 03/12/18 20:00 03/12/18 21:25 Temperature 99.4 F Pulse Rate 92 H 86 94 H Respiratory Rate 17 22 Blood Pressure 109/66 Pulse Oximetry 100 100 03/12/18 22:00 03/12/18 22:30 03/13/18 00:00 Temperature 98.9 F Pulse Rate 94 H 84 Respiratory Rate 16 16 Blood Pressure 98/62 L Pulse Oximetry 100 03/13/18 01:08 03/13/18 02:00 03/13/18 04:00 Temperature 98.4 F Pulse Rate 81 72 Respiratory Rate 20 19 Blood Pressure 94/57 L Pulse Oximetry 100 100 03/13/18 04:15 03/13/18 04:30 03/13/18 04:45 Temperature Pulse Rate 81 79 Respiratory Rate 18 18 Blood Pressure 97/58 L 107/62 101/61 Pulse Oximetry 100 100 03/13/18 05:00 03/13/18 05:15 03/13/18 05:30 Temperature Pulse Rate 80 80 85 Respiratory Rate 19 19 20 Blood Pressure 99/60 L 151/59 H 108/66 Pulse Oximetry 100 100 100 03/13/18 05:45 03/13/18 06:00 03/13/18 06:15 Temperature Pulse Rate 81 74 88 Respiratory Rate 19 22 22 Blood Pressure 109/66 83/45 L 110/65 Pulse Oximetry 100 85 L 100 03/13/18 06:30 03/13/18 06:45 03/13/18 06:54 Temperature Pulse Rate 79 67 Respiratory Rate 18 16 15 Blood Pressure 104/66 101/63 Pulse Oximetry 98 100 03/13/18 07:00 03/13/18 07:15 03/13/18 07:30 Temperature Pulse Rate 76 77 82 Respiratory Rate 15 15 15 Blood Pressure 103/64 103/67 108/70 Pulse Oximetry 100 100 98 03/13/18 07:45 03/13/18 08:00 03/13/18 08:15 Temperature Pulse Rate 76 85 86 Respiratory Rate 14 18 18 Blood Pressure 108/62 112/70 111/73 Pulse Oximetry 99 100 96 03/13/18 08:30 03/13/18 08:45 03/13/18 09:00 Temperature Pulse Rate 84 88 95 H Respiratory Rate 16 18 22 Blood Pressure 102/67 110/71 Pulse Oximetry 84 L 86 L 80 L 03/13/18 09:03 03/13/18 09:07 03/13/18 09:15 Temperature Pulse Rate 91 H 90 95 H Respiratory Rate 18 23 28 H Blood Pressure 112/65 118/68 Pulse Oximetry 100 91 L 85 L 03/13/18 09:30 03/13/18 09:45 03/13/18 10:00 Temperature Pulse Rate 87 91 H 81 Respiratory Rate 22 28 H 21 Blood Pressure 120/66 126/60 104/55 L Pulse Oximetry 96 96 94 L 03/13/18 10:15 03/13/18 12:00 03/13/18 12:53 Temperature Pulse Rate 81 Respiratory Rate 18 20 20 Blood Pressure 101/55 L Pulse Oximetry 98 Intake & Output 03/12/18 03/13/18 03/13/18 18:59 06:59 18:59 Intake Total 2865 / 2865 793 / 793 Output Total 1100 / 1100 900 / 900 Balance 1765 / 1765 -107 / -107 Weight 68.5 kg Intake: IV 0 / 0 450 / 450 Novastan Inj 250 MG In NS Inj 250 / 250 247.5 ML @ 2 MCG/KG/MIN 7.56 mls/hr IV.CONT TITRATE PRN Rx#: [id number] D5W Inj 1,000 ML @ 42 mls/hr IV 1500 / 1500 .CONT .[id number] DENAE Rx#:[id number] Magnesium Sulfate 1 gm/D5W 100 200 / 200 ml Premix 100 ML @ 100 mls/hr IV.SIG Q1H DENAE Rx#:[id number] Ancef Inj 2,000 MG In NS Inj 100 / 100 200 / 200 100 ML @ 200 mls/hr IV.SIG Q8H DENAE Rx#:[id number] Tube Feeding 805 / 805 343 / 343 Output: Stool 350 / 350 300 / 300 Urine Amount (Catheter) 750 / 750 600 / 600 Indwelling Urethral Catheter 750 / 750 600 / 600 Other: Date of Last Bowel Movement 03/12/18 03/12/18 03/12/18 Result Diagrams: 03/13/18 05:25 03/13/18 05:25 Laboratory Results: Laboratory Results - last 24 hr 03/12/18 03/12/18 03/13/18 18:26 23:58 05:25 WBC 2.2 L RBC 2.59 L Hgb 8.5 L Hct 25.3 L MCV 97.4 MCH 32.7 MCHC 33.5 RDW 22.7 H Plt Count 56 L MPV 11.2 H Prelim Diff (Auto) Slide review pending Neut % (Auto) 77.2 H Lymph % (Auto) 16.4 [place] % (Auto) 6.1 Eos % (Auto) 0.1 Baso % (Auto) 0.2 Neut # (Auto) 1.7 L Lymph # (Auto) 0.4 L [place] # (Auto) 0.1 Eos # (Auto) 0.0 Baso # (Auto) 0.0 WBC Differential . Diff Scan Auto diff confirmed Differential Comment . Platelet Estimate Low L Platelet Morphology Normal Sodium Potassium Chloride Carbon Dioxide Anion Gap BUN Creatinine Estimated GFR POC Glucose 164 H 129 H Random Glucose Calcium Prot Corrected Calcium Phosphorus Magnesium Total Bilirubin AST ALT Alkaline Phosphatase Total Protein Albumin 03/13/18 03/13/18 05:25 05:53 WBC RBC Hgb Hct MCV MCH MCHC RDW Plt Count MPV Prelim Diff (Auto) Neut % (Auto) Lymph % (Auto) [place] % (Auto) Eos % (Auto) Baso % (Auto) Neut # (Auto) Lymph # (Auto) [place] # (Auto) Eos # (Auto) Baso # (Auto) WBC Differential Diff Scan Differential Comment Platelet Estimate Platelet Morphology Sodium 144 Potassium 3.3 L Chloride 112 H Carbon Dioxide 20.0 L Anion Gap 12 BUN 24 H Creatinine 0.84 Estimated GFR Greater than 89 POC Glucose 144 H Random Glucose 127 H Calcium 7.2 L* Prot Corrected Calcium 8.1 L Phosphorus 2.0 L Magnesium 1.8 Total Bilirubin 0.3 AST 41 H ALT 20 Alkaline Phosphatase 58 Total Protein 5.4 L Albumin 1.6 L Medications: Active Medications Generic Name Dose Route Start Last Admin Trade Name Freq PRN Reason Stop Dose Admin Acetaminophen 650 mg 02/14/18 09:23 02/19/18 15:18 Tylenol Liq PO 650 mg Q6H PRN Administration FEVER Hydrocodone Bitart/Acetaminophen 1 tab 03/05/18 08:11 03/10/18 08:34 [place] 7.5/325 PO 1 tab Q4H PRN Administration pain 1-10 Albuterol 1 ampul 03/12/18 16:00 03/13/18 09:07 Duoneb Neb (Denae) NEB 1 ampul Q6HR NEB DENAE Administration Albuterol 2.5 mg 02/05/18 00:00 03/10/18 06:51 Albuterol Neb (Prn) NEB 2.5 mg Q2HR NEB PRN Administration SHORTNESS OF BREATH/WHEEZING Amiodarone HCl 400 mg 02/11/18 12:00 03/13/18 09:01 Cordarone G-TUBE 400 mg BID DENAE Administration Artificial Tears 1 drops 02/14/18 21:00 03/13/18 09:02 [place] Severe Dry Eye Relief 0.3% Opth Gel EACH EYE 1 drops BID DENAE Administration Ascorbic Acid 500 mg 02/15/18 09:00 03/13/18 09:01 Vitamin C NG/OG 500 mg DAILY DENAE Administration Aspirin 81 mg 02/06/18 09:00 03/13/18 09:02 Aspirin Chew PO 81 mg DAILY DEANE Administration Atorvastatin Calcium 40 mg 02/05/18 21:00 03/12/18 21:45 Lipitor PO 40 mg HS DENAE Administration Chlorhexidine Gluconate 15 ml 02/06/18 08:00 03/13/18 09:03 Peridex 0.12% Oral Kit OROPHARYNG 15 ml BID@0800,2000 DENAE Administration Clopidogrel Bisulfate 75 mg 02/06/18 09:00 02/25/18 09:13 Plavix PO 75 mg DAILY DENAE Administration Dextrose 50 ml 02/13/18 09:27 03/01/18 06:02 D50w Vial IV.PUSH 50 ml UNSCH PRN Administration PER HYPOGLYCEMIA PROTOCOL Digoxin 250 mcg 02/07/18 09:00 02/11/18 15:41 Lanoxin Inj IV.PUSH Not Given DAILY DENAE Duloxetine HCl 90 mg 02/05/18 09:00 02/11/18 11:18 Cymbalta PO Not Given DAILY DENAE Ferrous Sulfate 300 mg 02/15/18 09:00 03/13/18 09:01 Ferrrous Sulfate Liq PO 300 mg DAILY DENAE Administration Argatroban 250 mg/ Sodium 250 mls @ 7.56 mls/hr 03/02/18 15:00 03/12/18 22:12 Chloride IV.CONT 2 mcg/kg/min TITRATE PRN 7.56 mls/hr Per Protocol Administration Protocol 2 MCG/KG/MIN Cefazolin Sodium 2,000 mg/ 100 mls @ 200 mls/hr 03/11/18 16:00 03/13/18 09:02 Sodium Chloride IV.SIG 100 mls/hr Q8H DENAE Administration Insulin Aspart 0 unit 02/13/18 12:00 03/13/18 06:29 Novolog Insulin Correctional Sugar Inj SQ Not Given Q6HR [facility] Protocol Lactulose 30 ml 02/05/18 00:00 02/05/18 08:38 Lactulose Liq PO 30 ml DAILY PRN Administration SEVERE [employer]SITIPATION Lansoprazole 30 mg 02/15/18 09:00 03/13/18 09:03 Prevacid Solutab NG/OG 30 mg DAILY DENAE Administration Methylprednisolone Sodium Succinate 20 mg 03/07/18 11:47 03/13/18 09:02 Solumedrol Inj IV.PUSH 20 mg DAILY DENAE Administration Morphine Sulfate 4 mg 03/05/18 08:12 03/13/18 09:39 Morphine Inj IV.PUSH 4 mg Q3H PRN Administration breakthrough pain Multivitamins 1 tab 02/05/18 09:00 03/13/18 09:02 Theragran PO 1 tab DAILY DENAE Administration Potassium Phosphate 2,000 mg 03/12/18 08:37 03/12/18 15:30 K-Phos Original PO 2,000 mg Q4H PRN Administration Phosphorus Less Than 2.5 mg/dL Pregabalin 150 mg 02/04/18 23:50 03/13/18 09:01 Lyrica PO 150 mg BID DENAE Administration Senna/Docusate Sodium 1 tab 02/05/18 09:00 03/13/18 09:01 Linda-Colace PO 1 tab BID DENAE Administration Sodium Chloride 2 ml 02/05/18 09:00 03/13/18 09:02 Ns Flush IV.FLUSH 2 ml BID DENAE Administration Sterile Water 300 ml 03/02/18 18:00 03/13/18 06:29 Free Water G-TUBE 300 ml Q6HR DENAE Administration Vancomycin HCl 500 mg 02/11/18 16:00 03/13/18 06:29 Vancomycin Po G-TUBE 500 mg Q6HR DENAE Administration Whey 1 packet 02/08/18 13:00 03/13/18 09:03 Beneprotein Powder G-TUBE 1 packet TID DENAE Administration Objective Remarks: GENERAL: Chronically ill-appearing older male patient, alert, in no acute distress. SKIN: Pale, warm and dry. HEAD: Normocephalic. EYES: No scleral icterus. No injection or drainage. NECK: Tracheostomy midline. No bleeding/oozing noted at tracheostomy site, some erythema noted at base of collar. CARDIOVASCULAR: +S1/S2 without murmurs. RESPIRATORY: Anterior breath sounds clear, equal bilaterally. T piece in place. GASTROINTESTINAL: Abdomen soft, non-tender, distended. Feeding tube LUQ. EXTREMITIES: No cyanosis, bilateral SCD's and boot supports in place. MUSCULOSKELETAL: Generalized weakness, decreased muscle tone. NEUROLOGICAL: Patient with good eye contact. Assessment/Plan - Plan 62-year-old male admitted to the hospital in late January for fever and hypotension. He was found to have septic shock. He has C. difficile colitis. Hematology consulted for thrombocytopenia. 1. RITA negative. No bleeding on the argatroban drip. LFTs stable. 2. Continue to monitor platelet count. There is no obvious signs of bleeding, however his platelet count today has decreased. 3. Continue to monitor CBC, coags and liver functions. 4. Once platelet count is greater than 70,000 we will transition the patient to Coumadin via PEG tube 5. Discussed with RN. RN notified of patient's back pain, he will medicate. 6. Supportive care - Attending Statement The exam, history, and the medical decision-making described in the above note were completed with the assistance of the mid-level provider. I reviewed and agree with the findings presented. I attest that I had a [id number] encounter with the patient on the same day, and personally performed and documented my assessment and findings in the medical record.No bleeding noted. WBC and platelet trended back down may be due to consumptive process or medication. Continue argatroban and not able to transition to coumadin yet.
--- NOTE | 2018-03-13 16:12 | P.PNID ---
Subjective Remarks: On Tpiece moves R side OK, neglects L side + liquid diarrhea Antibiotics: cefazolin oral vanco Lines: PIV Past Medical History: Reviewed Allergies/Adverse Reactions: Allergies No Known Allergies Allergy (Verified 02/04/18 18:10) Objective Vital Signs 03/12/18 16:15 03/12/18 17:08 03/12/18 17:26 Temperature Pulse Rate 94 H 87 Respiratory Rate 31 H 27 H 22 Blood Pressure 131/85 Pulse Oximetry 94 L 03/12/18 17:52 03/12/18 18:00 03/12/18 20:00 Temperature 99.4 F Pulse Rate 92 H 86 Respiratory Rate 25 H 17 Blood Pressure 109/66 Pulse Oximetry 96 100 03/12/18 21:25 03/12/18 22:00 03/12/18 22:30 Temperature Pulse Rate 94 H 94 H Respiratory Rate 22 16 Blood Pressure Pulse Oximetry 100 03/13/18 00:00 03/13/18 01:08 03/13/18 02:00 Temperature 98.9 F Pulse Rate 84 81 Respiratory Rate 16 20 Blood Pressure 98/62 L Pulse Oximetry 100 100 03/13/18 04:00 03/13/18 04:15 03/13/18 04:30 Temperature 98.4 F Pulse Rate 72 81 Respiratory Rate 19 18 Blood Pressure 94/57 L 97/58 L 107/62 Pulse Oximetry 100 100 03/13/18 04:45 03/13/18 05:00 03/13/18 05:15 Temperature Pulse Rate 79 80 80 Respiratory Rate 18 19 19 Blood Pressure 101/61 99/60 L 151/59 H Pulse Oximetry 100 100 100 03/13/18 05:30 03/13/18 05:45 03/13/18 06:00 Temperature Pulse Rate 85 81 74 Respiratory Rate 20 19 22 Blood Pressure 108/66 109/66 83/45 L Pulse Oximetry 100 100 85 L 03/13/18 06:15 03/13/18 06:30 03/13/18 06:45 Temperature Pulse Rate 88 79 67 Respiratory Rate 22 18 16 Blood Pressure 110/65 104/66 101/63 Pulse Oximetry 100 98 100 03/13/18 06:54 03/13/18 07:00 03/13/18 07:15 Temperature Pulse Rate 76 77 Respiratory Rate 15 15 15 Blood Pressure 103/64 103/67 Pulse Oximetry 100 100 03/13/18 07:30 03/13/18 07:45 03/13/18 08:00 Temperature Pulse Rate 82 76 85 Respiratory Rate 15 14 18 Blood Pressure 108/70 108/62 112/70 Pulse Oximetry 98 99 100 03/13/18 08:15 03/13/18 08:30 03/13/18 08:45 Temperature Pulse Rate 86 84 88 Respiratory Rate 18 16 18 Blood Pressure 111/73 102/67 110/71 Pulse Oximetry 96 84 L 86 L 03/13/18 09:00 03/13/18 09:03 03/13/18 09:07 Temperature Pulse Rate 95 H 91 H 90 Respiratory Rate 22 18 23 Blood Pressure 112/65 Pulse Oximetry 80 L 100 91 L 03/13/18 09:15 03/13/18 09:30 03/13/18 09:45 Temperature Pulse Rate 95 H 87 91 H Respiratory Rate 28 H 22 28 H Blood Pressure 118/68 120/66 126/60 Pulse Oximetry 85 L 96 96 03/13/18 10:00 03/13/18 10:15 03/13/18 12:00 Temperature Pulse Rate 81 81 80 Respiratory Rate 21 18 20 Blood Pressure 104/55 L 101/55 L Pulse Oximetry 94 L 98 03/13/18 12:53 03/13/18 14:00 Temperature Pulse Rate 78 Respiratory Rate 20 Blood Pressure Pulse Oximetry Intake & Output 03/12/18 03/13/18 03/13/18 18:59 06:59 18:59 Intake Total 2865 / 2865 793 / 793 Output Total 1100 / 1100 900 / 900 Balance 1765 / 1765 -107 / -107 Weight 68.5 kg Intake: IV 2059 / 2059 450 / 450 Novastan Inj 250 MG In NS Inj 250 / 250 247.5 ML @ 2 MCG/KG/MIN 7.56 mls/hr IV.CONT TITRATE PRN Rx#: [id number] D5W Inj 1,000 ML @ 42 mls/hr IV 1500 / 1500 .CONT .[id number] ADRIEN Rx#:[id number] Magnesium Sulfate 1 gm/D5W 100 200 / 200 ml Premix 100 ML @ 100 mls/hr IV.SIG Q1H ADRIEN Rx#:[id number] Ancef Inj 2,000 MG In NS Inj 100 / 100 200 / 200 100 ML @ 200 mls/hr IV.SIG Q8H [facility] Rx#:[id number] Tube Feeding 805 / 805 343 / 343 Output: Stool 350 / 350 300 / 300 Urine Amount (Catheter) 750 / 750 600 / 600 Indwelling Urethral Catheter 750 / 750 600 / 600 Other: Date of Last Bowel Movement 03/12/18 03/12/18 03/12/18 Lab - Hematology Results 03/12/18 03/13/18 04:07 05:25 WBC 2.8 L 2.2 L RBC 2.68 L 2.59 L Hgb 8.5 L 8.5 L Hct 26.9 L 25.3 L MCV 100.2 H 97.4 MCH 31.8 32.7 MCHC 31.8 L 33.5 RDW 24.2 H 22.7 H Plt Count 64 L 56 L MPV 11.3 H 11.2 H Prelim Diff (Auto) Slide review pending Slide review pending Neut % (Auto) 81.5 H 77.2 H Lymph % (Auto) 11.2 16.4 [place] % (Auto) 6.6 6.1 Eos % (Auto) 0.5 0.1 Baso % (Auto) 0.2 0.2 Neut # (Auto) 2.3 1.7 L Lymph # (Auto) 0.3 L 0.4 L [place] # (Auto) 0.2 0.1 Eos # (Auto) 0.0 0.0 Baso # (Auto) 0.0 0.0 WBC Differential Manual diff final . Diff Scan Auto diff confirmed Seg Neuts % (Manual) 79 H Band Neuts % (Manual) 4 Lymphocytes % (Manual) 14 Monocytes % (Manual) 3 Abs Neuts (Manual) 2.3 Differential Comment . . Platelet Estimate Low L Low L Platelet Morphology Enlarged H Normal Lab - Chemistry Results 03/12/18 03/12/18 03/12/18 00:06 00:08 04:07 Sodium 145 Potassium 3.3 L Chloride 113 H Carbon Dioxide 19.1 L Anion Gap 13 BUN 25 H Creatinine 0.83 Estimated GFR Greater than 89 POC Glucose 157 H 152 H Random Glucose 127 H Calcium 6.9 L* Prot Corrected Calcium 7.8 L Phosphorus 2.0 L Magnesium 1.8 Total Bilirubin 0.2 AST 38 H ALT 16 Alkaline Phosphatase 52 Total Protein 5.3 L Albumin 1.6 L 03/12/18 03/12/18 03/12/18 05:25 18:26 23:58 Sodium Potassium Chloride Carbon Dioxide Anion Gap BUN Creatinine Estimated GFR POC Glucose 141 H 164 H 129 H Random Glucose Calcium Prot Corrected Calcium Phosphorus Magnesium Total Bilirubin AST ALT Alkaline Phosphatase Total Protein Albumin 03/13/18 03/13/18 03/13/18 05:25 05:53 14:44 Sodium 144 Potassium 3.3 L Chloride 112 H Carbon Dioxide 20.0 L Anion Gap 12 BUN 24 H Creatinine 0.84 Estimated GFR Greater than 89 POC Glucose 144 H 181 H Random Glucose 127 H Calcium 7.2 L* Prot Corrected Calcium 8.1 L Phosphorus 2.0 L Magnesium 1.8 Total Bilirubin 0.3 AST 41 H ALT 20 Alkaline Phosphatase 58 Total Protein 5.4 L Albumin 1.6 L Imaging: ITS Impressions Abdomen/Bladder Ultrasound 02/05/18 00:00 CONCLUSION: 1. No evidence of hydronephrosis. 2. The echogenicity of the kidneys is equal to that of the liver which can be seen with medical renal disease. 3. Simple cyst in right kidney. 4. Suboptimal visualization of the left kidney. 5. Small amount of free fluid along the spleen. This could represent an adjacent pleural effusion. Head CT 02/15/18 12:23 CONCLUSION: 1. Negative CT Head non contrast. . Head MRI 02/16/18 08:28 CONCLUSION: 1. New focus of restricted diffusion high along the right cerebral vertex measuring 8 mm consistent with a new small focal acute infarction. 2. There is a new 5 mm area restricted diffusion high along the left cerebral vertex consistent with a new small focal acute infarction. 3. 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 This area is stable compared to the prior examination. 4. Stable bilateral cortical atrophy and mild chronic white matter changes. 5. Chronic bilateral mastoiditis. Chest CT 02/18/18 00:00 CONCLUSION: 1. Increasing basilar and dependent consolidation in both lungs most characteristic of pneumonia or aspiration. 2. Near complete resolution of previous small effusions. 3. Osteopenia with stable compression deformities in the spine. 4. Previous sternotomy with aortic valve replacement. 5. Right-sided central line, ET tube and NG tube in good position. Abdomen X-Ray 03/04/18 00:00 CONCLUSION: Paucity of bowel gas in the abdomen. Nondilated small air-filled segment of the ascending colon seen. Chest X-Ray 03/12/18 00:00 CONCLUSION: Persistent bilateral airspace disease with associated effusions. There appears to be some interval worsening on the right. Physical Exam: GENERAL: cachectic, awake, did not follow, on T-piece, not in distress SKIN: Cool and dry. No generalized rash HEAD: Atraumatic. Normocephalic. EYES: Pupils equal and round. No scleral icterus. No injection or drainage. ENT: No nasal bleeding or discharge. Mucous membranes dry. NECK: Trach in place site OK CARDIOVASCULAR: Regular rate and rhythm. + diastolic blowing murmur on aortic valve point 1-2/6 today RESPIRATORY: Rales at both bases, equal breath sounds GASTROINTESTINAL: Abdomen oderately distended and tender . Liquid brown stool in the dignishield bag : roberson in place with good amount of urine MUSCULOSKELETAL: Extremities without clubbing, cyanosis, or edema. No obvious deformities. NEUROLOGICAL: Awake, makes eye contact MOves vigourously R side not following commands PSYCHIATRIC:unable to assess LINE: No evidence of infection Assessment and Plan - Plan Impression Sepsis C.diff ? VAP ; PSAE, KLEb, S/P Rx Acute renal insufficiency, improving slowly GFR CHF EF < 20 % S/P NV Respiratory failure, S/P trach - doing T-piece traisl Leukopenia is getting worse Recommendation Continue Ancef for MSSA sepsis, plan till end of month to complete 6 weeks from 1st neg blood C/S (01/26) Continue C.diff tx: cont po vanco, will continue until after he completes his Ancef Rx rechk C.diff repeat CT A/P if worsening diarrhea Follow counts Weaning per [facility] Monitor progress dc ancef
[2018-03-14] MEDS: Insulin NovoLOG Aspart Correctional Sugar Inj SQ SCH ×4 (00:31→17:30)
[2018-03-14] MEDS: Oral Hygiene Kit OROPHARYNG SCH ×4 (00:32→17:29)
[2018-03-14] MEDS: Morphine Inj 4 MG/ML Vial IV.PUSH PRN ×2 (03:56→22:53)
[2018-03-14 06:01] LABS: Baso % (Auto) 0.5 % (0.0-2.0); Eos % (Auto) 0.2 % (0.0-4.0); Hematocrit 24.9 % (39.0-51.0); Hemoglobin 8.1 gm/dL (13.0-17.0); Lymph # (Auto) 0.4 th/mm3 (1.0-4.8); Lymph % (Auto) 14.8 % (9.0-44.0); Mean Corpuscular HGB Conc 32.6 % (32.0-36.0); Mean Corpuscular Hemoglobin 32.2 pg (27.0-34.0); Mean Corpuscular Volume 98.6 fL (80.0-100.0); Mean Platelet Volume 10.6 fL (7.0-11.0); Mono # (Auto) 0.1 th/mm3 (0.0-0.9); Mono % (Auto) 5.4 % (0.0-8.0); Neut % (Auto) 79.1 % (16.0-70.0); Platelet Count 75 th/mm3 (150-450); Red Blood Count 2.52 mil/mm3 (4.50-5.90); Red Cell Distribution Width 22.9 % (11.6-17.2); White Blood Count 2.6 th/mm3 (4.0-11.0)
[2018-03-14 06:37] LABS: Alanine Aminotransferase 19 U/L (12-78); Alkaline Phosphatase 52 U/L (45-117); Phosphorus 2.4 mg/dL (2.5-4.9); Total Protein 5.6 g/dL (6.4-8.2)
[2018-03-14 06:39] LABS: Albumin 1.6 g/dL (3.4-5.0); Anion Gap 11 meq/L (5-15); Aspartate Aminotransferase 50 U/L (15-37); Blood Urea Nitrogen 23 mg/dL (7-18); Calcium 7.5 mg/dL (8.5-10.1); Carbon Dioxide 21.7 meq/L (21.0-32.0); Chloride 112 meq/L (98-107); Glomerular Filtration Rate Greater Than 89 mL/min (>89); Glucose,Random 111 mg/dL (74-106); Magnesium 1.8 mg/dL (1.5-2.5); Sodium 145 meq/L (136-145)
[2018-03-14 06:40] LABS: Potassium 3.9 meq/L (3.5-5.1)
--- NOTE | 2018-03-14 07:10 | P.PNCC ---
Subjective Subjective Remarks/Hospital Course: 62-year-old male with past medical history of [place] mechanical aortic valve (09/21/12 Dr. Gonzalez), on chronic anticoagulation with warfarin, atrial fibrillation postop from AVR , COPD on 2.5 L home O2, stroke in 2015 resulting in left-sided sensory deficits and neuropathy, osteoporosis with chronic low back pain. He was recently admitted to [facility] from 01/23 through 01/31/18 for MSSA bacteremia. It is believed that the original source of infection was a wound on his right index finger when electric drill slipped and created a puncture wound. He was discharged with right upper extremity PICC line receiving cefazolin 2 g IV every 8 hours and gentamicin 210 mg IV daily. He states that home health administered antibiotics at 17:00 and shortly thereafter he began having chills and rigors and sought medical attention at [facility]. He had no rash. Upon arrival, he was hypotensive in the low 80s. He was given 2 L S bolus but remained hypotensive so was started on Levophed. He then developed heart rate in the 140s, reportedly atrial flutter so he was started on Amiodarone drip in [place] and converted to sinus rhythm. He was transfused 2 units PRBC due to Hgb 9.3. His stool was nonbloody nonmelena but was Hemoccult positive. He was given zosyn and vancomycin. Critical care medicine was then contacted and accepted patient for transfer to [facility]. He denies tenderness/redness/drainage at PICC site. Aside from mechanical aortic valve, he has no other hardware or indwelling devices. He denies headache, cough, dysuria. He has had a few loose stools at home, but stools have sometimes been formed. He denies chest pain, does report some SOB. EKG at [place] had marked inferolateral ischemic changes. Obtained EKG upon arrival to [facility] which is improved. SUBJ 02/05: Patient remains critical ill appearing, complaints of chest tightness but denies pain. Remains on 8 mcg/min of Levophed to maintain map about 65. However increasing shortness of breath. Chest x-ray shows increasing pulmonary edema. Troponin was 27.5 currently on IV heparin therapeutic. Cardiology consult is pending at this time. I will stop on maintenance fluids give 40 mg IV Lasix and IV albumin 25 g 1. 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 IABP placed. patient emergently intubated for acute hypoxic respiratory failure secondary to cardiogenic shock and pulmonary edema. started on milrinone at 0.375 mcg/kg/min and levophed. bumex drip started. remains critically ill. 02/07: Remains critically ill remains on Levophed and milrinone. Currently diuresing well with Bumex drip. IABP in place management per cardiology-good waveform and augmentation. Chest x-ray shows adequate positioning of IABP, diffuse bilateral pulmonary edema 02/08: Remains critical but showing some signs of improvement. Diuresing very well on Bumex infusion. Remains on Levophed and milrinone. IABP one-to-one with good augmentation management per cardiology. Chest x-ray shows improving edema but with persistent bilateral effusions. Will initiate weaning trials if tolerated 02/09: Still remains on pressors, unable to wean Levophed below 2 mcg/min. Milrinone currently on 0.375 mcg/kg/min. IABP removed yesterday. On sedation hold patient wakes up but remains lethargic. Weakly squeezes hand. Urine output excellent on Bumex, 4 L output in 24 hours. Will attempt CPAP today 02/10: Multiple episodes of V. fib V. tach arrest yesterday morning. Successfully resuscitated. Yesterday night had two-minute V. fib arrest return of spontaneous circulation in sinus rhythm after DC cardioversion 1. Currently remains on milrinone and low-dose Levophed. I will try to wean off Levophed introduce low-dose beta-rasheed due to recurrent arrhythmia. Keep potassium more than 4 magnesium more than 2 02/11: Patient still critical and cardiogenic shock requiring Levophed and milrinone. Urine output improved with adding Diamox. Approximately 2 L urine output in 24 hours, creatinine remained stable. Oxygenation slightly improved FiO2 reduced to 70% now. Overall prognosis remains poor family wants to continue aggressive care 02/12: Remains critical but slight improvement in oxygenation. But continues to require Levophed and milrinone the low-dose. Urine output remains adequate. Chest x-ray shows interval improvement. Creatinine remains stable to slightly improved. Add IV albumin to improve blood pressure and to promote diuresis. 02/13 Patient remains intubated and sedated with Versed and fentanyl. Afebrile, off Levophed remains on Milrinone and Heparin drip. 02/14: Hypothermic overnight. Remains on milrinone and heparin drips. Tolerating tube feeds at 20 cc now. Positive BM. No changes neurologically 02/15 Patient remains sedated with Versed and Fentanyl drips, on Milrinone 0.5. 02/16 Patient remains intubated sedated with Versed and Fentanyl infusion. On Milrinone and Heparin drips. CT brain yesterday showed no acute findings. Afebrile. 02/17 Patient remains sedated and intubated. Afebrile, On Milrinone and Heparin drip. 02/18: Remains critical continues to require milrinone. Urine output adequate. Chest x-ray shows bilateral infiltrate effusion. CT chest to better define effusions and infiltrate. Increase Bumex to 1 mg every 8 hours. Patient is persistently weak, will attempt SBT unlikely to be successfully extubated at this time. Most likely will need tracheostomy if family desires aggressive care 02/19: Remains intubated sedated with Versed and fentanyl. Transition to Precedex to facilitate weaning trials. Patient responding slightly more to verbal command, appears to track even though not following commands. Creatinine slightly increased with increased diuresis. Chest x-ray shows improved pleural effusions. CT chest yesterday did not show significant effusion but basilar consolidation. 02/20 Patient was extubated yesterday on 10L simple mask, on Precdex, Heparin and Milrinone drips. Tmax 101.1 yesterday 02/21: Febrile. Currently on 5 L nasal cannula. Continues on heparin drip with 500 units an hour. Received bumetanide 1 mg 1 today. Positive BM 02/22: Remains on 5 L nasal cannula. Remains on heparin drip. No changes neurologically remains medically stable. 02/23: Intubated early this morning secondary to acute respiratory failure. Blood pressure marginal likely due to sedation. Ejection fraction less than 20% . Discussed with at bedside. She was to proceed with tracheostomy in PEG tube placement. We will plan for within the next few days. 02/24: Remains sedated, orally intubated on mechanical ventilation. 02/25: Remains sedated, orally intubated on mechanical ventilation. Worsening renal function noted. Check UA, urine sodium and creatinine. Ordered Kayexalate for hyperkalemia and nephrology consulted. 02/26: Sedated, arousable, orally intubated on mechanical ventilation. Will hold Plavix for planned tracheostomy and PEG tube placement. Remains on heparin for anticoagulation. 02/27: Drowsy, arousable, orally intubated on mechanical ventilation. Awaiting tracheostomy and PEG tube placement. 02/28: Drowsy, arousable, remains orally intubated on mechanical ventilation. PEG tube scheduled for today. 03/01: Drowsy, arousable, remains orally intubated on mechanical ventilation. Underwent PEG tube placement on 02/28. Worsening thrombocytopenia noted and now down to 50,000. Will continue holding Plavix and heparin. Check HIT screen and consult hematology. Awaiting tracheostomy 03/02: Drowsy, arousable, remains orally intubated on mechanical vent relation. Hematology consult noted. 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 03/03: Intubated remains heavily sedated. Was unable to wean off the ventilator , became hypoxemic on CPAP yesterday. 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 Will transfuse 3 packed units of platelets prior to tracheostomy planned for 11 AM today. Platelet count 49,000 03/04 Trached yesterday. Had high residuals earlier today (500 mL) and tube feeds placed on hold. KUB unremarkable. Given reglan, now residual is 10 so resuming tube feeds. On CPAP via trach. Remains sedated on fentanyl and versed, will wean. 03/05 Bleeding at trach site overnight, argatroban was placed on hold. Hgb stable 7.4, platelet count 70k. Surgicell has been ordered but has not yet been applied. Off versed, fentanyl drip still running 50 mcg. He is more alert today , communicates his need to have his mouth suctioned. 03/06: No events over the night. T-max of 98.7. Urine output greater than 4 L over the last 24 hours. 03/07: Patient remains afebrile, with a T-max of 98.5. Urine output 2350 mL's over the last 24 hours. No acute events over the night. Patient is currently on CPAP trial 04/21 with respiratory rate in the mid to high teens with tidal volumes 3-400, comfortable. 03/08: No events over the night. Patient tolerated T piece yesterday and he was placed back on CPAP last night. This morning he is back on T piece. He is easily arousable and following some commands. He is complaining of back pain. T-max of 99.2, urine output of 2450 mL's over the last 24 hours. 03/09: Patient tolerated T piece yesterday and he was placed back on CPAP at night. This morning he is sleeping, easily arousable. No other events over the night. T-max of 99.2. I/O 1100/1000. Still having significant amount of diarrhea. 03/10: No events over the night. Patient currently on CPAP 10/5 doing well. T- max of 99.4. I/O 3233/2600. No bleeding upon suction. Still having diarrhea. He is awake, alert, complains of back pain. 03/11: No events over the night. Patient was on CPAP 10/5 over the night. Being switched to T-piece this morning. He is resting comfortable, in no distress. T-max of 98.7 over the last 24 hours. Subjective: 03/12: Afebrile. Remains on T piece 40% and tolerating well. Positive BM. Tolerating tube feeds. Arousable. 03/13 Patient remains on ventilator, tolerated TP's x 4 hrs yesterday. Afebrile. On Argatroban drip. 03/13 Patient was on TP's all day placed on CPAP overnight. Afebrile. Remains on Argatroban drip. Objective Vital Signs / I&O: Vital Signs 03/13/18 07:15 03/13/18 07:30 03/13/18 07:45 Temperature Pulse Rate 77 82 76 Respiratory Rate 15 15 14 Blood Pressure 103/67 108/70 108/62 Pulse Oximetry 100 98 99 03/13/18 08:00 03/13/18 08:15 03/13/18 08:30 Temperature Pulse Rate 85 86 84 Respiratory Rate 18 18 16 Blood Pressure 112/70 111/73 102/67 Pulse Oximetry 100 96 84 L 03/13/18 08:45 03/13/18 09:00 03/13/18 09:03 Temperature Pulse Rate 88 95 H 91 H Respiratory Rate 18 22 18 Blood Pressure 110/71 Pulse Oximetry 86 L 80 L 100 03/13/18 09:07 03/13/18 09:15 03/13/18 09:30 Temperature Pulse Rate 90 95 H 87 Respiratory Rate 23 28 H 22 Blood Pressure 112/65 118/68 120/66 Pulse Oximetry 91 L 85 L 96 03/13/18 09:45 03/13/18 10:00 03/13/18 10:15 Temperature Pulse Rate 91 H 81 81 Respiratory Rate 28 H 21 18 Blood Pressure 126/60 104/55 L 101/55 L Pulse Oximetry 96 94 L 98 03/13/18 10:30 03/13/18 10:45 03/13/18 11:00 Temperature Pulse Rate 86 82 85 Respiratory Rate 22 19 22 Blood Pressure 100/59 L 102/58 L 100/56 L Pulse Oximetry 97 99 94 L 03/13/18 11:15 03/13/18 11:30 03/13/18 11:45 Temperature Pulse Rate 79 76 92 H Respiratory Rate 19 20 24 Blood Pressure 98/56 L 93/52 L 94/53 L Pulse Oximetry 100 99 95 03/13/18 12:00 03/13/18 12:15 03/13/18 12:30 Temperature Pulse Rate 104 H 84 82 Respiratory Rate 30 H 23 23 Blood Pressure 106/62 102/58 L 92/52 L Pulse Oximetry 91 L 94 L 96 03/13/18 12:45 03/13/18 12:53 03/13/18 13:00 Temperature Pulse Rate 81 82 Respiratory Rate 20 20 20 Blood Pressure 99/60 L 97/59 L Pulse Oximetry 95 95 03/13/18 13:15 03/13/18 13:30 03/13/18 13:45 Temperature Pulse Rate 80 78 74 Respiratory Rate 21 18 18 Blood Pressure 97/57 L 95/55 L 91/54 L Pulse Oximetry 97 97 100 03/13/18 14:00 03/13/18 14:15 03/13/18 14:30 Temperature Pulse Rate 79 82 82 Respiratory Rate 17 20 23 Blood Pressure 102/59 L 101/60 104/64 Pulse Oximetry 96 95 92 L 03/13/18 14:45 03/13/18 15:00 03/13/18 15:15 Temperature Pulse Rate 80 80 83 Respiratory Rate 20 20 23 Blood Pressure 101/60 100/60 105/67 Pulse Oximetry 96 96 96 03/13/18 15:30 03/13/18 15:45 03/13/18 16:00 Temperature Pulse Rate 78 87 83 Respiratory Rate 20 25 H 22 Blood Pressure 103/63 106/61 102/62 Pulse Oximetry 96 94 L 97 03/13/18 16:18 03/13/18 18:00 03/13/18 19:32 Temperature Pulse Rate 82 77 Respiratory Rate 22 5 L Blood Pressure Pulse Oximetry 03/13/18 19:34 03/13/18 20:00 03/13/18 21:28 Temperature 98.7 F Pulse Rate 91 H Respiratory Rate 16 25 H 22 Blood Pressure 118/72 Pulse Oximetry 97 03/13/18 22:00 03/14/18 00:00 03/14/18 00:54 Temperature 98.6 F Pulse Rate 93 H 84 85 Respiratory Rate 19 24 Blood Pressure 106/65 Pulse Oximetry 95 96 03/14/18 01:18 03/14/18 02:00 03/14/18 04:00 Temperature 98.7 F Pulse Rate 86 95 H Respiratory Rate 15 21 Blood Pressure 106/65 Pulse Oximetry 98 95 03/14/18 04:20 03/14/18 04:47 03/14/18 06:00 Temperature Pulse Rate 82 81 Respiratory Rate 22 13 Blood Pressure Pulse Oximetry 93 L Intake & Output 03/13/18 03/14/18 03/14/18 18:59 06:59 18:59 Intake Total 739 / 739 1190 / 1190 Output Total 1050 / 1050 900 / 900 Balance -311 / -311 290 / 290 Weight 67.5 kg Intake: IV 100 / 100 Ancef Inj 2,000 MG In NS Inj 100 / 100 100 ML @ 200 mls/hr IV.SIG Q8H [facility] Rx#:[id number] Tube Feeding 589 / 589 590 / 590 Water Bolus Amount 50 / 50 600 / 600 Output: Stool 400 / 400 500 / 500 Urine Amount (Catheter) 650 / 650 400 / 400 Indwelling Urethral Catheter 650 / 650 400 / 400 Other: Date of Last Bowel Movement 03/12/18 03/12/18 Result Diagrams: 03/14/18 05:30 03/14/18 05:30 Other Results: Laboratory Results - last 12 hr 03/13/18 03/13/18 03/14/18 18:28 19:20 00:26 WBC RBC Hgb Hct MCV MCH MCHC RDW Plt Count MPV Prelim Diff (Auto) Neut % (Auto) Lymph % (Auto) Nobles % (Auto) Eos % (Auto) Baso % (Auto) Neut # (Auto) Lymph # (Auto) Nobles # (Auto) Eos # (Auto) Baso # (Auto) Differential Comment APTT Sodium Potassium Chloride Carbon Dioxide Anion Gap BUN Creatinine Estimated GFR POC Glucose 134 H Random Glucose Calcium Phosphorus Magnesium Total Bilirubin AST ALT Alkaline Phosphatase Total Protein Albumin St C. diff Tox Epid 027 Negative Random Vancomycin Less than 0.8 C. difficile (PCR) Negative 03/14/18 03/14/18 03/14/18 05:30 05:30 05:30 WBC 2.6 L RBC 2.52 L Hgb 8.1 L Hct 24.9 L MCV 98.6 MCH 32.2 MCHC 32.6 RDW 22.9 H Plt Count 75 L D MPV 10.6 Prelim Diff (Auto) Slide review pending Neut % (Auto) 79.1 H Lymph % (Auto) 14.8 Nobles % (Auto) 5.4 Eos % (Auto) 0.2 Baso % (Auto) 0.5 Neut # (Auto) 2.0 Lymph # (Auto) 0.4 L Nobles # (Auto) 0.1 Eos # (Auto) 0.0 Baso # (Auto) 0.0 Differential Comment . APTT 77.6 H D Sodium 145 Potassium 3.9 Chloride 112 H Carbon Dioxide 21.7 Anion Gap 11 BUN 23 H Creatinine 0.85 Estimated GFR Greater than 89 POC Glucose Random Glucose 111 H Calcium 7.5 L Phosphorus 2.4 L Magnesium 1.8 Total Bilirubin 0.4 AST 50 H ALT 19 Alkaline Phosphatase 52 Total Protein 5.6 [address] C[address] diff Tox Epid 027 Random Vancomycin C. difficile (PCR) 03/14/18 05:42 WBC RBC Hgb Hct MCV MCH MCHC RDW Plt Count MPV Prelim Diff (Auto) Neut % (Auto) Lymph % (Auto) Nobles % (Auto) Eos % (Auto) Baso % (Auto) Neut # (Auto) Lymph # (Auto) Nobles # (Auto) Eos # (Auto) Baso # (Auto) Differential Comment APTT Sodium Potassium Chloride Carbon Dioxide Anion Gap BUN Creatinine Estimated GFR POC Glucose 129 H Random Glucose Calcium Phosphorus Magnesium Total Bilirubin AST ALT Alkaline Phosphatase Total Protein Albumin St C. diff Tox Epid 027 Random Vancomycin C. difficile (PCR) Imaging: Abdomen/Bladder Ultrasound 02/05/18 00:00 CONCLUSION: 1. No evidence of hydronephrosis. 2. The echogenicity of the kidneys is equal to that of the liver which can be seen with medical renal disease. 3. Simple cyst in right kidney. 4. Suboptimal visualization of the left kidney. 5. Small amount of free fluid along the spleen. This could represent an adjacent pleural effusion. Head CT 02/15/18 12:23 CONCLUSION: 1. Negative CT Head non contrast. . Head MRI 02/16/18 08:28 CONCLUSION: 1. New focus of restricted diffusion high along the right cerebral vertex measuring 8 mm consistent with a new small focal acute infarction. 2. There is a new 5 mm area restricted diffusion high along the left cerebral vertex consistent with a new small focal acute infarction. 3. 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 This area is stable compared to the prior examination. 4. Stable bilateral cortical atrophy and mild chronic white matter changes. 5. Chronic bilateral mastoiditis. Chest CT 02/18/18 00:00 CONCLUSION: 1. Increasing basilar and dependent consolidation in both lungs most characteristic of pneumonia or aspiration. 2. Near complete resolution of previous small effusions. 3. Osteopenia with stable compression deformities in the spine. 4. Previous sternotomy with aortic valve replacement. 5. Right-sided central line, ET tube and NG tube in good position. Abdomen X-Ray 03/04/18 00:00 CONCLUSION: Paucity of bowel gas in the abdomen. Nondilated small air-filled segment of the ascending colon seen. Chest X-Ray 03/12/18 00:00 CONCLUSION: Persistent bilateral airspace disease with associated effusions. There appears to be some interval worsening on the right. Objective Remarks: GENERAL: 62-year-old gentleman, awake, alert, ill-appearing, on vent. HEENT: Pupils are equal and reactive, sclera anicteric. Trach in place. No JVD. CARDIOVASCULAR: Regular heart sounds, no murmurs appreciated. RESPIRATORY: Scattered coarse breath sounds bilateral. No wheezes. Good air entry. GASTROINTESTINAL: Abdomen soft, not tender, not distended, bowel sounds are present. PEG in in place. MUSCULOSKELETAL: Extremities with bilateral trace lower extremity edema. Peripheral pulses are present. NEURO: Awake, alert, following commands. Wiggles toes bilaterally and moves right upper extremity. Assessment and Plan - Assessment and Plan Plan: NEURO/PSYCH: History of stroke in 2015 Neuropathy left upper and lower extremity Chronic low back pain On no sedation, monitor neuro status On ASA 81 mg daily. Continue pregabalin 150 mg p.o. twice daily. Holding duloxetine 90 mg p.o. daily. 02/15 CT brain: No acute findings. 02/15 EEG : Encephalopathy, no epileptiform activity MRI brain 02/16: New small focal acute infarction right cerebral vertex and also left cerebral vertex. Neuro has followed. RESP: Acute hypoxic respiratory failure -unchanged, on minimal O2 requirements, tolerating T piece during daytime and CPAP at night COPD on 2.5 L home O2 Prior tobacco abuse Bilateral pleural effusions Perc trach 03/03. Continue with vent support keep sats >92% T-piece during daytime as garrett and CPAP at night as tolerated Albuterol/ipratropium aerosols every 6 hours with albuterol aerosols every 2 hours as needed for dyspnea Vent bundle, check CXR On Solumederol 20mg IV daily CV: V. tach/V. fib arrest -resolved NSTEMI Cardiogenic shock -resolved Acute systolic heart failure Atrial fibrillation with RVR [place] mechanical aortic valve (09/21/12 Dr. Gonzalez) s/p Tricuspid annuloplasty Monitor HR and BP keep MAP>65mmHg On amiodarone 400mg BID, carvedilol 3.125mg BID Continue aspirin 81 mg daily Clopidogrel is on hold since 02/26 for trach and PEG and will resume when plt > 80 per hematology Continue atorvastatin 40 mg nightly. s/p cath And PCI -proximal LAD and large diagonal 90% stenosis, 2 BMS stent 02/05, mid LAD vasospasm post PCI Off IABP 02/08/18 CMAERON 01/23/18no vegetation. Normal aortic mechanical valve with trivial aortic insufficiency. Tricuspid annuloplasty. Mild to moderate LV generalized hypokinesis Echo from 02/05: EF <20%, diffuse hypokinesis, bioprosthetic valve [employer] Worker is Romana Bartlett GI: Moderate protein calorie malnutrition with hypoalbuminemia Jevity 1.5 now at goal 50 ml/hr. with free water 300 cc every 6 hours Status post PEG tube placement Lansoprazole for stress ulcer prophylactic Had normal EGD on 10/21/17 FEN/RENAL: Acute kidney injury -creatinine is improved urine output is appropriate Hypopotassemia BPH Hypomagnesemia Hypo-phosphatemia Continue free water at 300 cc every 6 hours Monitor renal function, I/O's, creatinine slowly improving. 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 difficile colitis -still having diarrhea Funguria On p.o. Vanco, Off Cefazolin Infectious disease following. 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 Continue holding Plavix and heparin. 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 Monitor Coags No bleeding from trach site ENDO: SSI to maintain euglycemia PROPH: on argatroban. Protonix for stress ulcer prophylaxis ACCESS: PIV in place. Palliative care is following. No family present at bedside. Level 3 follow-up
--- NOTE | 2018-03-14 08:00 | XR ---
EXAM DATE: 03/14/2018 7:47 AM EDT AGE/SEX: 62 years / Male INDICATIONS: Short of breath. CLINICAL DATA: This is the patient's subsequent encounter. Patient reports that signs and symptoms h ave been present for 1 month and indicates a pain score of Nonresponsive. MEDICAL/SURGICAL HISTORY: Stroke. . Aortic valve replacement. COMPARISON: C, CHEST 1V SINGLE AP, 03/12/2018. . FINDINGS: Stable tracheostomy. Slightly improved aeration of the right mid to lower lung zones with persistent diffuse interstitial and airspace opacities throughout the right lung and in the central left lung. P robable small pleural effusions bilaterally. Cardiomediastinal contours are stable. Remainder of the exam is unchanged. CONCLUSION: 1. Slightly improved aeration of the right mid to lower lung zones with persistent diffuse bilateral , right greater than left, interstitial and airspace opacities with associated small bilateral pleura l effusions. Electronically signed by: Danilo Perry MD 03/14/2018 7:59 AM EDT
[2018-03-14] MEDS: Potassium Phosphate 500 MG Soluble Tablet PO PRN ×2 (08:30→12:38)
[2018-03-14] MEDS: MethylPREDNISolone Sod Succinate Inj 40 MG/ML Vial IV.PUSH SCH (08:31)
[2018-03-14] MEDS: Ferrrous Sulfate 300 MG/5 ML UDC PO SCH (08:31)
[2018-03-14] MEDS: Amiodarone 200 MG Tablet G-TUBE SCH ×2 (08:31→20:51)
[2018-03-14] MEDS: Ascorbic Acid 500 MG Tablet NG/OG SCH (08:31)
[2018-03-14] MEDS: Pregabalin 75 MG Capsule PO SCH ×2 (08:31→20:52)
[2018-03-14] MEDS: Senna/Docusate Sodium 8.6/50 MG Tablet PO SCH ×2 (08:32→20:52)
[2018-03-14] MEDS: Chlorhexidine 0.12% Oral Kit 15 ML UDC OROPHARYNG SCH ×2 (08:32→20:51)
[2018-03-14] MEDS: Hypromellose 0.3% Opth Gel 10 GM Bottle EACH EYE SCH ×2 (08:32→20:51)
[2018-03-14] MEDS: Beneprotein Powder Packet G-TUBE SCH ×3 (08:35→17:30)
--- NOTE | 2018-03-14 15:15 | P.PNONC ---
Subjective Interval history: Late entry: Patient seen earlier in the day. T-max 100.2F. Patient alert on approach. Shakes his head to answer my questions. He appears to have no complaints at this time. Objective Vital Signs/Intake & Output: Vital Signs 03/13/18 15:15 03/13/18 15:30 03/13/18 15:45 Temperature Pulse Rate 83 78 87 Respiratory Rate 23 20 25 H Blood Pressure 105/67 103/63 106/61 Pulse Oximetry 96 96 94 L 03/13/18 16:00 03/13/18 16:18 03/13/18 18:00 Temperature Pulse Rate 83 82 77 Respiratory Rate 22 22 Blood Pressure 102/62 Pulse Oximetry 97 03/13/18 19:32 03/13/18 19:34 03/13/18 20:00 Temperature 98.7 F Pulse Rate 91 H Respiratory Rate 5 L 16 25 H Blood Pressure 118/72 Pulse Oximetry 97 03/13/18 21:28 03/13/18 22:00 03/14/18 00:00 Temperature 98.6 F Pulse Rate 93 H 84 Respiratory Rate 22 19 Blood Pressure 106/65 Pulse Oximetry 95 03/14/18 00:54 03/14/18 01:18 03/14/18 02:00 Temperature Pulse Rate 85 86 Respiratory Rate 24 15 Blood Pressure Pulse Oximetry 96 98 03/14/18 03:00 03/14/18 03:15 03/14/18 03:30 Temperature Pulse Rate 91 H 91 H 100 H Respiratory Rate 24 24 27 H Blood Pressure 126/64 113/61 112/66 Pulse Oximetry 92 L 92 L 90 L 03/14/18 03:53 03/14/18 04:00 03/14/18 04:15 Temperature 98.7 F Pulse Rate 94 H 95 H 89 Respiratory Rate 24 26 H 15 Blood Pressure 113/68 113/77 111/75 Pulse Oximetry 93 L 93 L 92 L 03/14/18 04:20 03/14/18 04:30 03/14/18 04:45 Temperature Pulse Rate 80 83 Respiratory Rate 22 13 12 Blood Pressure 108/66 104/61 Pulse Oximetry 94 L 95 03/14/18 04:47 03/14/18 05:00 03/14/18 05:15 Temperature Pulse Rate 82 81 80 Respiratory Rate 13 16 14 Blood Pressure 93/60 L 99/61 L Pulse Oximetry 93 L 92 L 92 L 03/14/18 05:30 03/14/18 05:45 03/14/18 06:00 Temperature Pulse Rate 86 82 81 Respiratory Rate 13 15 12 Blood Pressure 100/65 103/67 106/64 Pulse Oximetry 92 L 91 L 89 L 03/14/18 06:15 03/14/18 06:30 03/14/18 06:45 Temperature Pulse Rate 81 82 86 Respiratory Rate 13 13 15 Blood Pressure 102/61 105/66 107/64 Pulse Oximetry 91 L 92 L 90 L 03/14/18 07:00 03/14/18 07:15 03/14/18 07:30 Temperature Pulse Rate 82 84 83 Respiratory Rate 13 15 15 Blood Pressure 102/62 105/60 104/65 Pulse Oximetry 92 L 90 L 91 L 03/14/18 07:45 03/14/18 08:00 03/14/18 08:15 Temperature 100.2 F H Pulse Rate 89 84 97 H Respiratory Rate 16 15 18 Blood Pressure 107/62 99/65 L 106/70 Pulse Oximetry 90 L 92 L 92 L 03/14/18 08:30 03/14/18 08:45 03/14/18 09:00 Temperature Pulse Rate 86 92 H 85 Respiratory Rate 17 18 17 Blood Pressure 104/63 109/68 107/71 Pulse Oximetry 89 L 91 L 88 L 03/14/18 09:15 03/14/18 09:30 03/14/18 09:33 Temperature Pulse Rate 89 91 H 86 Respiratory Rate 17 17 17 Blood Pressure 113/71 109/71 Pulse Oximetry 88 L 87 L 90 L 03/14/18 09:45 03/14/18 10:00 03/14/18 10:15 Temperature Pulse Rate 90 88 89 Respiratory Rate 19 17 18 Blood Pressure 108/67 108/65 101/65 Pulse Oximetry 90 L 89 L 89 L 03/14/18 10:30 03/14/18 10:45 03/14/18 11:00 Temperature Pulse Rate 91 H 91 H 90 Respiratory Rate 17 18 17 Blood Pressure 104/64 103/64 103/63 Pulse Oximetry 90 L 89 L 89 L 03/14/18 11:15 03/14/18 11:30 03/14/18 11:45 Temperature Pulse Rate 87 91 H 91 H Respiratory Rate 17 19 18 Blood Pressure 101/61 101/62 104/63 Pulse Oximetry 89 L 90 L 90 L 03/14/18 11:58 03/14/18 12:00 03/14/18 12:15 Temperature 98.8 F Pulse Rate 87 85 Respiratory Rate 18 19 20 Blood Pressure 102/63 99/61 L Pulse Oximetry 92 L 91 L 91 L 03/14/18 12:30 03/14/18 12:45 03/14/18 13:00 Temperature Pulse Rate 87 87 93 H Respiratory Rate 19 22 21 Blood Pressure 99/61 L 97/60 L 108/67 Pulse Oximetry 92 L 88 L 89 L 03/14/18 13:15 03/14/18 13:30 03/14/18 13:45 Temperature Pulse Rate 89 90 91 H Respiratory Rate 21 21 20 Blood Pressure 110/67 105/65 103/65 Pulse Oximetry 89 L 94 L 91 L 03/14/18 14:00 03/14/18 15:02 Temperature Pulse Rate 91 H 89 Respiratory Rate 22 22 Blood Pressure 97/63 L Pulse Oximetry 90 L 92 L Intake & Output 03/13/18 03/14/18 03/14/18 18:59 06:59 18:59 Intake Total 739 / 739 1190 / 1190 Output Total 1050 / 1050 900 / 900 Balance -311 / -311 290 / 290 Weight 67.5 kg Intake: IV 100 / 100 Ancef Inj 2,000 MG In NS Inj 100 / 100 100 ML @ 200 mls/hr IV.SIG Q8H [facility] Rx#:[id number] Tube Feeding 589 / 589 590 / 590 Water Bolus Amount 50 / 50 600 / 600 Output: Stool 400 / 400 500 / 500 Urine Amount (Catheter) 650 / 650 400 / 400 Indwelling Urethral Catheter 650 / 650 400 / 400 Other: Date of Last Bowel Movement 03/12/18 03/12/18 03/14/18 Result Diagrams: 03/14/18 05:30 03/14/18 05:30 Laboratory Results: Laboratory Results - last 24 hr 03/13/18 03/13/18 03/13/18 16:00 17:45 18:28 WBC RBC Hgb Hct MCV MCH MCHC RDW Plt Count MPV Prelim Diff (Auto) Neut % (Auto) Lymph % (Auto) [place] % (Auto) Eos % (Auto) Baso % (Auto) Neut # (Auto) Lymph # (Auto) [place] # (Auto) Eos # (Auto) Baso # (Auto) WBC Differential Diff Scan Differential Comment Platelet Estimate Platelet Morphology APTT 64.4 H D Sodium Potassium Chloride Carbon Dioxide Anion Gap BUN Creatinine Estimated GFR POC Glucose 197 H Random Glucose Calcium Phosphorus Magnesium Total Bilirubin AST ALT Alkaline Phosphatase Total Protein Albumin St C. diff Tox Epid 027 Random Vancomycin Less than 0.8 C. difficile (PCR) 03/13/18 03/14/18 03/14/18 19:20 00:26 05:30 WBC 2.6 L RBC 2.52 L Hgb 8.1 L Hct 24.9 L MCV 98.6 MCH 32.2 MCHC 32.6 RDW 22.9 H Plt Count 75 L D MPV 10.6 Prelim Diff (Auto) Slide review pending Neut % (Auto) 79.1 H Lymph % (Auto) 14.8 [place] % (Auto) 5.4 Eos % (Auto) 0.2 Baso % (Auto) 0.5 Neut # (Auto) 2.0 Lymph # (Auto) 0.4 L [place] # (Auto) 0.1 Eos # (Auto) 0.0 Baso # (Auto) 0.0 WBC Differential . Diff Scan Auto diff confirmed Differential Comment . Platelet Estimate Low L Platelet Morphology Enlarged H APTT Sodium Potassium Chloride Carbon Dioxide Anion Gap BUN Creatinine Estimated GFR POC Glucose 134 H Random Glucose Calcium Phosphorus Magnesium Total Bilirubin AST ALT Alkaline Phosphatase Total Protein Albumin St C. diff Tox Epid 027 Negative Random Vancomycin C. difficile (PCR) Negative 03/14/18 03/14/18 03/14/18 05:30 05:30 05:42 WBC RBC Hgb Hct MCV MCH MCHC RDW Plt Count MPV Prelim Diff (Auto) Neut % (Auto) Lymph % (Auto) [place] % (Auto) Eos % (Auto) Baso % (Auto) Neut # (Auto) Lymph # (Auto) [place] # (Auto) Eos # (Auto) Baso # (Auto) WBC Differential Diff Scan Differential Comment Platelet Estimate Platelet Morphology APTT 77.6 H D Sodium 145 Potassium 3.9 Chloride 112 H Carbon Dioxide 21.7 Anion Gap 11 BUN 23 H Creatinine 0.85 Estimated GFR Greater than 89 POC Glucose 129 H Random Glucose 111 H Calcium 7.5 L Phosphorus 2.4 L Magnesium 1.8 Total Bilirubin 0.4 AST 50 H ALT 19 Alkaline Phosphatase 52 Total Protein 5.6 [address] C[address] diff Tox Epid 027 Random Vancomycin C. difficile (PCR) 03/14/18 03/14/18 11:46 12:37 WBC RBC Hgb Hct MCV MCH MCHC RDW Plt Count MPV Prelim Diff (Auto) Neut % (Auto) Lymph % (Auto) [place] % (Auto) Eos % (Auto) Baso % (Auto) Neut # (Auto) Lymph # (Auto) [place] # (Auto) Eos # (Auto) Baso # (Auto) WBC Differential Diff Scan Differential Comment Platelet Estimate Platelet Morphology APTT 59.8 H D Sodium Potassium Chloride Carbon Dioxide Anion Gap BUN Creatinine Estimated GFR POC Glucose 199 H Random Glucose Calcium Phosphorus Magnesium Total Bilirubin AST ALT Alkaline Phosphatase Total Protein Albumin St C. diff Tox Epid 027 Random Vancomycin C. difficile (PCR) Imaging Studies: Impressions Chest X-Ray 03/14/18 07:11 CONCLUSION: 1. Slightly improved aeration of the right mid to lower lung zones with persistent diffuse bilateral, right greater than left, interstitial and airspace opacities with associated small bilateral pleural effusions. Medications: Active Medications Generic Name Dose Route Start Last Admin Trade Name Freq PRN Reason Stop Dose Admin Acetaminophen 650 mg 02/14/18 09:23 02/19/18 15:18 Tylenol Liq PO 650 mg Q6H PRN Administration FEVER Hydrocodone Bitart/Acetaminophen 1 tab 03/05/18 08:11 03/10/18 08:34 [place] 7.5/325 PO 1 tab Q4H PRN Administration pain 1-10 Albuterol 1 ampul 03/12/18 16:00 03/14/18 15:02 Duoneb Neb (Denae) NEB 1 ampul Q6HR NEB DENAE Administration Albuterol 2.5 mg 02/05/18 00:00 03/14/18 00:56 Albuterol Neb (Prn) NEB 2.5 mg Q2HR NEB PRN Administration SHORTNESS OF BREATH/WHEEZING Amiodarone HCl 400 mg 02/11/18 12:00 03/14/18 08:31 Cordarone G-TUBE 400 mg BID DENAE Administration Artificial Tears 1 drops 02/14/18 21:00 03/14/18 08:32 [place] Severe Dry Eye Relief 0.3% Opth Gel EACH EYE 1 drops BID DENAE Administration Ascorbic Acid 500 mg 02/15/18 09:00 03/14/18 08:31 Vitamin C NG/OG 500 mg DAILY DENAE Administration Aspirin 81 mg 02/06/18 09:00 03/14/18 08:31 Aspirin Chew PO 81 mg DAILY DENAE Administration Atorvastatin Calcium 40 mg 02/05/18 21:00 03/13/18 20:44 Lipitor PO 40 mg HS DENAE Administration Chlorhexidine Gluconate 15 ml 02/06/18 08:00 03/14/18 08:32 Peridex 0.12% Oral Kit OROPHARYNG 15 ml BID@0800,2000 DENAE Administration Clopidogrel Bisulfate 75 mg 02/06/18 09:00 02/25/18 09:13 Plavix PO 75 mg DAILY DENAE Administration Dextrose 50 ml 02/13/18 09:27 03/01/18 06:02 D50w Vial IV.PUSH 50 ml UNSCH PRN Administration PER HYPOGLYCEMIA PROTOCOL Digoxin 250 mcg 02/07/18 09:00 02/11/18 15:41 Lanoxin Inj IV.PUSH Not Given DAILY DENAE Duloxetine HCl 90 mg 02/05/18 09:00 02/11/18 11:18 Cymbalta PO Not Given DAILY DENAE Ferrous Sulfate 300 mg 02/15/18 09:00 03/14/18 08:31 Ferrrous Sulfate Liq PO 300 mg DAILY DENAE Administration Argatroban 250 mg/ Sodium 250 mls @ 7.56 mls/hr 03/02/18 15:00 03/14/18 08:29 Chloride IV.CONT 1.5 mcg/kg/min TITRATE PRN 5.67 mls/hr Per Protocol Titration Protocol 2 MCG/KG/MIN Insulin Aspart 0 unit 02/13/18 12:00 03/14/18 12:39 Novolog Insulin Correctional Sugar Inj SQ 1 unit Q6HR DENAE Administration Protocol Lactulose 30 ml 02/05/18 00:00 02/05/18 08:38 Lactulose Liq PO 30 ml DAILY PRN Administration SEVERE CONSITIPATION Lansoprazole 30 mg 02/15/18 09:00 03/14/18 08:36 Prevacid Solutab NG/OG 30 mg DAILY DENAE Administration Methylprednisolone Sodium Succinate 20 mg 03/07/18 11:47 03/14/18 08:31 Solumedrol Inj IV.PUSH 20 mg DAILY DENAE Administration Morphine Sulfate 4 mg 03/05/18 08:12 03/14/18 03:56 Morphine Inj IV.PUSH 4 mg Q3H PRN Administration breakthrough pain Multivitamins 1 tab 02/05/18 09:00 03/14/18 08:31 Theragran PO 1 tab DAILY DENAE Administration Potassium Phosphate 2,000 mg 03/12/18 08:37 03/14/18 12:38 K-Phos Original PO 2,000 mg Q4H PRN Administration Phosphorus Less Than 2.5 mg/dL Pregabalin 150 mg 02/04/18 23:50 03/14/18 08:31 Lyrica PO 150 mg BID DENAE Administration Senna/Docusate Sodium 1 tab 02/05/18 09:00 03/14/18 08:32 Linda-Colace PO Not Given BID DENAE Sodium Chloride 2 ml 02/05/18 09:00 03/14/18 08:32 Ns Flush IV.FLUSH 2 ml BID DENAE Administration Sterile Water 300 ml 03/02/18 18:00 03/14/18 12:39 Free Water G-TUBE 300 ml Q6HR DENAE Administration Vancomycin HCl 500 mg 02/11/18 16:00 03/14/18 12:38 Vancomycin Po G-TUBE 500 mg Q6HR DENAE Administration Whey 1 packet 02/08/18 13:00 03/14/18 12:38 Beneprotein Powder G-TUBE 1 packet TID DENAE Administration Objective Remarks: GENERAL: Chronically ill-appearing older male patient, alert, in no acute distress. SKIN: Pale, warm and dry. HEAD: Normocephalic. EYES: No scleral icterus. No injection or drainage. NECK: Tracheostomy midline. No bleeding/oozing noted at tracheostomy site, some erythema noted at base of collar. CARDIOVASCULAR: +S1/S2 without murmurs. RESPIRATORY: Bilateral rhonchi. T piece in place. GASTROINTESTINAL: Abdomen soft, non-tender, distended. Feeding tube LUQ. EXTREMITIES: No cyanosis, bilateral SCD's and boot supports in place. MUSCULOSKELETAL: Generalized weakness, decreased muscle tone. NEUROLOGICAL: Patient with good eye contact. Assessment/Plan - Plan 62-year-old male admitted to the hospital in late January for fever and hypotension. He was found to have septic shock. He has C. difficile colitis. Hematology consulted for thrombocytopenia. 1. RITA negative. Continues on argatroban drip. No obvious bleeding noted. 2. Continue to monitor platelet count. Patient's platelet count has increased today to 75k, we will recheck tomorrow to see if this stabilizes above 70 K. Once platelets are stable above 70 K, he will be transitioned to Coumadin. 3. Continue to monitor CBC, coags and liver functions. 4. Continue supportive care. - Attending Statement The exam, history, and the medical decision-making described in the above note were completed with the assistance of the mid-level provider. I reviewed and agree with the findings presented. I attest that I had a [id number] encounter with the patient on the same day, and personally performed and documented my assessment and findings in the medical record. No bleeding noted. Platelet trended back up today. Can transition him to Coumadin once platelet count stable above 70,000.
--- NOTE | 2018-03-14 15:48 | P.PNID ---
Subjective Remarks: difficulty weaning not tolerating Tpiece + liquid diarrhea 500 cc Antibiotics: oral vanco Lines: PIV Past Medical History: Reviewed Allergies/Adverse Reactions: Allergies No Known Allergies Allergy (Verified 02/04/18 18:10) Objective Vital Signs 03/13/18 15:45 03/13/18 16:00 03/13/18 16:18 Temperature Pulse Rate 87 83 82 Respiratory Rate 25 H 22 22 Blood Pressure 106/61 102/62 Pulse Oximetry 94 L 97 03/13/18 18:00 03/13/18 19:32 03/13/18 19:34 Temperature Pulse Rate 77 Respiratory Rate 5 L 16 Blood Pressure Pulse Oximetry 03/13/18 20:00 03/13/18 21:28 03/13/18 22:00 Temperature 98.7 F Pulse Rate 91 H 93 H Respiratory Rate 25 H 22 Blood Pressure 118/72 Pulse Oximetry 97 03/14/18 00:00 03/14/18 00:54 03/14/18 01:18 Temperature 98.6 F Pulse Rate 84 85 Respiratory Rate 19 24 15 Blood Pressure 106/65 Pulse Oximetry 95 96 98 03/14/18 02:00 03/14/18 03:00 03/14/18 03:15 Temperature Pulse Rate 86 91 H 91 H Respiratory Rate 24 24 Blood Pressure 126/64 113/61 Pulse Oximetry 92 L 92 L 03/14/18 03:30 03/14/18 03:53 03/14/18 04:00 Temperature 98.7 F Pulse Rate 100 H 94 H 95 H Respiratory Rate 27 H 24 26 H Blood Pressure 112/66 113/68 113/77 Pulse Oximetry 90 L 93 L 93 L 03/14/18 04:15 03/14/18 04:20 03/14/18 04:30 Temperature Pulse Rate 89 80 Respiratory Rate 15 22 13 Blood Pressure 111/75 108/66 Pulse Oximetry 92 L 94 L 03/14/18 04:45 03/14/18 04:47 03/14/18 05:00 Temperature Pulse Rate 83 82 81 Respiratory Rate 12 13 16 Blood Pressure 104/61 93/60 L Pulse Oximetry 95 93 L 92 L 03/14/18 05:15 03/14/18 05:30 03/14/18 05:45 Temperature Pulse Rate 80 86 82 Respiratory Rate 14 13 15 Blood Pressure 99/61 L 100/65 103/67 Pulse Oximetry 92 L 92 L 91 L 03/14/18 06:00 03/14/18 06:15 03/14/18 06:30 Temperature Pulse Rate 81 81 82 Respiratory Rate 12 13 13 Blood Pressure 106/64 102/61 105/66 Pulse Oximetry 89 L 91 L 92 L 03/14/18 06:45 03/14/18 07:00 03/14/18 07:15 Temperature Pulse Rate 86 82 84 Respiratory Rate 15 13 15 Blood Pressure 107/64 102/62 105/60 Pulse Oximetry 90 L 92 L 90 L 03/14/18 07:30 03/14/18 07:45 03/14/18 08:00 Temperature 100.2 F H Pulse Rate 83 89 84 Respiratory Rate 15 16 15 Blood Pressure 104/65 107/62 99/65 L Pulse Oximetry 91 L 90 L 92 L 03/14/18 08:15 03/14/18 08:30 03/14/18 08:45 Temperature Pulse Rate 97 H 86 92 H Respiratory Rate 18 17 18 Blood Pressure 106/70 104/63 109/68 Pulse Oximetry 92 L 89 L 91 L 03/14/18 09:00 03/14/18 09:15 03/14/18 09:30 Temperature Pulse Rate 85 89 91 H Respiratory Rate 17 17 17 Blood Pressure 107/71 113/71 109/71 Pulse Oximetry 88 L 88 L 87 L 03/14/18 09:33 03/14/18 09:45 03/14/18 10:00 Temperature Pulse Rate 86 90 88 Respiratory Rate 17 19 17 Blood Pressure 108/67 108/65 Pulse Oximetry 90 L 90 L 89 L 03/14/18 10:15 03/14/18 10:30 03/14/18 10:45 Temperature Pulse Rate 89 91 H 91 H Respiratory Rate 18 17 18 Blood Pressure 101/65 104/64 103/64 Pulse Oximetry 89 L 90 L 89 L 03/14/18 11:00 03/14/18 11:15 03/14/18 11:30 Temperature Pulse Rate 90 87 91 H Respiratory Rate 17 17 19 Blood Pressure 103/63 101/61 101/62 Pulse Oximetry 89 L 89 L 90 L 03/14/18 11:45 03/14/18 11:58 03/14/18 12:00 Temperature 98.8 F Pulse Rate 91 H 87 Respiratory Rate 18 18 19 Blood Pressure 104/63 102/63 Pulse Oximetry 90 L 92 L 91 L 03/14/18 12:15 03/14/18 12:30 03/14/18 12:45 Temperature Pulse Rate 85 87 87 Respiratory Rate 20 19 22 Blood Pressure 99/61 L 99/61 L 97/60 L Pulse Oximetry 91 L 92 L 88 L 03/14/18 13:00 03/14/18 13:15 03/14/18 13:30 Temperature Pulse Rate 93 H 89 90 Respiratory Rate 21 21 21 Blood Pressure 108/67 110/67 105/65 Pulse Oximetry 89 L 89 L 94 L 03/14/18 13:45 03/14/18 14:00 03/14/18 15:02 Temperature Pulse Rate 91 H 91 H 89 Respiratory Rate 20 22 22 Blood Pressure 103/65 97/63 L Pulse Oximetry 91 L 90 L 92 L Intake & Output 03/13/18 03/14/18 03/14/18 18:59 06:59 18:59 Intake Total 739 / 739 1190 / 1190 Output Total 1050 / 1050 900 / 900 Balance -311 / -311 290 / 290 Weight 67.5 kg Intake: IV 100 / 100 Ancef Inj 2,000 MG In NS Inj 100 / 100 100 ML @ 200 mls/hr IV.SIG Q8H [facility] Rx#:[id number] Tube Feeding 589 / 589 590 / 590 Water Bolus Amount 50 / 50 600 / 600 Output: Stool 400 / 400 500 / 500 Urine Amount (Catheter) 650 / 650 400 / 400 Indwelling Urethral Catheter 650 / 650 400 / 400 Other: Date of Last Bowel Movement 03/12/18 03/12/18 03/14/18 Lab - Hematology Results 03/13/18 03/14/18 05:25 05:30 WBC 2.2 L 2.6 L RBC 2.59 L 2.52 L Hgb 8.5 L 8.1 L Hct 25.3 L 24.9 L MCV 97.4 98.6 MCH 32.7 32.2 MCHC 33.5 32.6 RDW 22.7 H 22.9 H Plt Count 56 L 75 L D MPV 11.2 H 10.6 Prelim Diff (Auto) Slide review pending Slide review pending Neut % (Auto) 77.2 H 79.1 H Lymph % (Auto) 16.4 14.8 [place] % (Auto) 6.1 5.4 Eos % (Auto) 0.1 0.2 Baso % (Auto) 0.2 0.5 Neut # (Auto) 1.7 L 2.0 Lymph # (Auto) 0.4 L 0.4 L [place] # (Auto) 0.1 0.1 Eos # (Auto) 0.0 0.0 Baso # (Auto) 0.0 0.0 WBC Differential . . Diff Scan Auto diff confirmed Auto diff confirmed Differential Comment . . Platelet Estimate Low L Low L Platelet Morphology Normal Enlarged H Lab - Chemistry Results 03/12/18 03/12/18 03/13/18 18:26 23:58 05:25 Sodium 144 Potassium 3.3 L Chloride 112 H Carbon Dioxide 20.0 L Anion Gap 12 BUN 24 H Creatinine 0.84 Estimated GFR Greater than 89 POC Glucose 164 H 129 H Random Glucose 127 H Calcium 7.2 L* Prot Corrected Calcium 8.1 L Phosphorus 2.0 L Magnesium 1.8 Total Bilirubin 0.3 AST 41 H ALT 20 Alkaline Phosphatase 58 Total Protein 5.4 L Albumin 1.6 L 03/13/18 03/13/18 03/13/18 05:53 14:44 17:45 Sodium Potassium Chloride Carbon Dioxide Anion Gap BUN Creatinine Estimated GFR POC Glucose 144 H 181 H 197 H Random Glucose Calcium Prot Corrected Calcium Phosphorus Magnesium Total Bilirubin AST ALT Alkaline Phosphatase Total Protein Albumin 03/14/18 03/14/18 03/14/18 00:26 05:30 05:42 Sodium 145 Potassium 3.9 Chloride 112 H Carbon Dioxide 21.7 Anion Gap 11 BUN 23 H Creatinine 0.85 Estimated GFR Greater than 89 POC Glucose 134 H 129 H Random Glucose 111 H Calcium 7.5 L Prot Corrected Calcium Phosphorus 2.4 L Magnesium 1.8 Total Bilirubin 0.4 AST 50 H ALT 19 Alkaline Phosphatase 52 Total Protein 5.6 L Albumin 1.6 L 03/14/18 12:37 Sodium Potassium Chloride Carbon Dioxide Anion Gap BUN Creatinine Estimated GFR POC Glucose 199 H Random Glucose Calcium Prot Corrected Calcium Phosphorus Magnesium Total Bilirubin AST ALT Alkaline Phosphatase Total Protein Albumin Imaging: ITS Impressions Abdomen/Bladder Ultrasound 02/05/18 00:00 CONCLUSION: 1. No evidence of hydronephrosis. 2. The echogenicity of the kidneys is equal to that of the liver which can be seen with medical renal disease. 3. Simple cyst in right kidney. 4. Suboptimal visualization of the left kidney. 5. Small amount of free fluid along the spleen. This could represent an adjacent pleural effusion. Head CT 02/15/18 12:23 CONCLUSION: 1. Negative CT Head non contrast. . Head MRI 02/16/18 08:28 CONCLUSION: 1. New focus of restricted diffusion high along the right cerebral vertex measuring 8 mm consistent with a new small focal acute infarction. 2. There is a new 5 mm area restricted diffusion high along the left cerebral vertex consistent with a new small focal acute infarction. 3. 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 This area is stable compared to the prior examination. 4. Stable bilateral cortical atrophy and mild chronic white matter changes. 5. Chronic bilateral mastoiditis. Chest CT 02/18/18 00:00 CONCLUSION: 1. Increasing basilar and dependent consolidation in both lungs most characteristic of pneumonia or aspiration. 2. Near complete resolution of previous small effusions. 3. Osteopenia with stable compression deformities in the spine. 4. Previous sternotomy with aortic valve replacement. 5. Right-sided central line, ET tube and NG tube in good position. Abdomen X-Ray 03/04/18 00:00 CONCLUSION: Paucity of bowel gas in the abdomen. Nondilated small air-filled segment of the ascending colon seen. Chest X-Ray 03/14/18 07:11 CONCLUSION: 1. Slightly improved aeration of the right mid to lower lung zones with persistent diffuse bilateral, right greater than left, interstitial and airspace opacities with associated small bilateral pleural effusions. Physical Exam: GENERAL: cachectic, awake, did not follow, on T-piece, not in distress SKIN: Cool and dry. No generalized rash HEAD: Atraumatic. Normocephalic. EYES: Pupils equal and round. No scleral icterus. No injection or drainage. ENT: No nasal bleeding or discharge. Mucous membranes dry. NECK: Trach in place site [place] CARDIOVASCULAR: Regular rate and rhythm. + diastolic blowing murmur on aortic valve point 1-2/6 today RESPIRATORY: Rales at both bases, equal breath sounds GASTROINTESTINAL: Abdomen moderately distended and tender . Liquid brown stool in the dignishield bag : roberson in place with good amount of urine MUSCULOSKELETAL: Extremities without clubbing, cyanosis, or edema. No obvious deformities. NEUROLOGICAL: eyes closed not following commands PSYCHIATRIC:unable to assess LINE: No evidence of infection Assessment and Plan - Plan Impression Sepsis C.diff ? VAP ; PSAE, KLEb, S/P Rx Acute renal insufficiency, improving slowly GFR CHF EF < 20 % S/P SD Respiratory failure, S/P trach - doing T-piece traisl Leukopenia is getting worse perssirstent diarrhea - repeat c.diff negative ? postinfectious diarrhea Recommendation Ancef for MSSA sepsis, was stopped after completed 6 weeks from 1st neg blood C/S (01/26) cont po vanco, will continue until after he completes his Ancef Rx repeat CT A/P if worsening diarrhea Follow counts Weaning per CCM Monitor progress pat RN
[2018-03-15] MEDS: Insulin NovoLOG Aspart Correctional Sugar Inj SQ SCH ×4 (02:21→18:12)
[2018-03-15] MEDS: Oral Hygiene Kit OROPHARYNG SCH ×4 (02:22→16:07)
[2018-03-15] MEDS: Morphine Inj 4 MG/ML Vial IV.PUSH PRN ×3 (02:30→21:11)
[2018-03-15] MEDS: Argatroban Inj 250 MG in Sodium Chlor 0.9% Inj 247.5 ML IV.CONT PRN (02:53)
[2018-03-15 05:47] LABS: Albumin 1.7 g/dL (3.4-5.0); Anion Gap 12 meq/L (5-15); Blood Urea Nitrogen 26 mg/dL (7-18); Calcium 7.5 mg/dL (8.5-10.1); Carbon Dioxide 21.6 meq/L (21.0-32.0); Chloride 109 meq/L (98-107); Glomerular Filtration Rate 88 mL/min (>89); Glucose,Random 92 mg/dL (74-106); Magnesium 1.5 mg/dL (1.5-2.5); Potassium 3.6 meq/L (3.5-5.1); Sodium 143 meq/L (136-145)
[2018-03-15 05:49] LABS: Alanine Aminotransferase 33 U/L (12-78); Aspartate Aminotransferase 60 U/L (15-37); Phosphorus 2.3 mg/dL (2.5-4.9)
[2018-03-15 05:50] LABS: Alkaline Phosphatase 76 U/L (45-117)
[2018-03-15 06:48] LABS: Baso % (Auto) 0.2 % (0.0-2.0); Eos % (Auto) 0.1 % (0.0-4.0); Hematocrit 23.1 % (39.0-51.0); Hemoglobin 7.7 gm/dL (13.0-17.0); Lymph # (Auto) 0.4 th/mm3 (1.0-4.8); Lymph % (Auto) 17.5 % (9.0-44.0); Mean Corpuscular HGB Conc 33.3 % (32.0-36.0); Mean Corpuscular Hemoglobin 32.5 pg (27.0-34.0); Mean Corpuscular Volume 97.4 fL (80.0-100.0); Mean Platelet Volume 10.8 fL (7.0-11.0); Mono # (Auto) 0.1 th/mm3 (0.0-0.9); Mono % (Auto) 4.9 % (0.0-8.0); Neut # (Auto) 1.6 th/mm3 (1.8-7.7); Neut % (Auto) 77.3 % (16.0-70.0); Platelet Count 97 th/mm3 (150-450); Red Blood Count 2.37 mil/mm3 (4.50-5.90); Red Cell Distribution Width 22.5 % (11.6-17.2); White Blood Count 2.1 th/mm3 (4.0-11.0)
--- NOTE | 2018-03-15 08:14 | P.PNCC ---
Subjective Subjective Remarks/Hospital Course: 62-year-old male with past medical history of [place] mechanical aortic valve (09/21/12 Dr. Gonzalez), on chronic anticoagulation with warfarin, atrial fibrillation postop from AVR , COPD on 2.5 L home O2, stroke in 2015 resulting in left-sided sensory deficits and neuropathy, osteoporosis with chronic low back pain. He was recently admitted to [facility] from 01/23 through 01/31/18 for MSSA bacteremia. It is believed that the original source of infection was a wound on his right index finger when electric drill slipped and created a puncture wound. He was discharged with right upper extremity PICC line receiving cefazolin 2 g IV every 8 hours and gentamicin 210 mg IV daily. He states that home health administered antibiotics at 17:00 and shortly thereafter he began having chills and rigors and sought medical attention at [facility]. He had no rash. Upon arrival, he was hypotensive in the low 80s. He was given 2 L S bolus but remained hypotensive so was started on Levophed. He then developed heart rate in the 140s, reportedly atrial flutter so he was started on Amiodarone drip in [place] and converted to sinus rhythm. He was transfused 2 units PRBC due to Hgb 9.3. His stool was nonbloody nonmelena but was Hemoccult positive. He was given zosyn and vancomycin. Critical care medicine was then contacted and accepted patient for transfer to [facility]. He denies tenderness/redness/drainage at PICC site. Aside from mechanical aortic valve, he has no other hardware or indwelling devices. He denies headache, cough, dysuria. He has had a few loose stools at home, but stools have sometimes been formed. He denies chest pain, does report some SOB. EKG at [place] had marked inferolateral ischemic changes. Obtained EKG upon arrival to [facility] which is improved. SUBJ 02/05: Patient remains critical ill appearing, complaints of chest tightness but denies pain. Remains on 8 mcg/min of Levophed to maintain map about 65. However increasing shortness of breath. Chest x-ray shows increasing pulmonary edema. Troponin was 27.5 currently on IV heparin therapeutic. Cardiology consult is pending at this time. I will stop on maintenance fluids give 40 mg IV Lasix and IV albumin 25 g 1. 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 IABP placed. patient emergently intubated for acute hypoxic respiratory failure secondary to cardiogenic shock and pulmonary edema. started on milrinone at 0.375 mcg/kg/min and levophed. bumex drip started. remains critically ill. 02/07: Remains critically ill remains on Levophed and milrinone. Currently diuresing well with Bumex drip. IABP in place management per cardiology-good waveform and augmentation. Chest x-ray shows adequate positioning of IABP, diffuse bilateral pulmonary edema 02/08: Remains critical but showing some signs of improvement. Diuresing very well on Bumex infusion. Remains on Levophed and milrinone. IABP one-to-one with good augmentation management per cardiology. Chest x-ray shows improving edema but with persistent bilateral effusions. Will initiate weaning trials if tolerated 02/09: Still remains on pressors, unable to wean Levophed below 2 mcg/min. Milrinone currently on 0.375 mcg/kg/min. IABP removed yesterday. On sedation hold patient wakes up but remains lethargic. Weakly squeezes hand. Urine output excellent on Bumex, 4 L output in 24 hours. Will attempt CPAP today 02/10: Multiple episodes of V. fib V. tach arrest yesterday morning. Successfully resuscitated. Yesterday night had two-minute V. fib arrest return of spontaneous circulation in sinus rhythm after DC cardioversion 1. Currently remains on milrinone and low-dose Levophed. I will try to wean off Levophed introduce low-dose beta-rasheed due to recurrent arrhythmia. Keep potassium more than 4 magnesium more than 2 02/11: Patient still critical and cardiogenic shock requiring Levophed and milrinone. Urine output improved with adding Diamox. Approximately 2 L urine output in 24 hours, creatinine remained stable. Oxygenation slightly improved FiO2 reduced to 70% now. Overall prognosis remains poor family wants to continue aggressive care 02/12: Remains critical but slight improvement in oxygenation. But continues to require Levophed and milrinone the low-dose. Urine output remains adequate. Chest x-ray shows interval improvement. Creatinine remains stable to slightly improved. Add IV albumin to improve blood pressure and to promote diuresis. 02/13 Patient remains intubated and sedated with Versed and fentanyl. Afebrile, off Levophed remains on Milrinone and Heparin drip. 02/14: Hypothermic overnight. Remains on milrinone and heparin drips. Tolerating tube feeds at 20 cc now. Positive BM. No changes neurologically 02/15 Patient remains sedated with Versed and Fentanyl drips, on Milrinone 0.5. 02/16 Patient remains intubated sedated with Versed and Fentanyl infusion. On Milrinone and Heparin drips. CT brain yesterday showed no acute findings. Afebrile. 02/17 Patient remains sedated and intubated. Afebrile, On Milrinone and Heparin drip. 02/18: Remains critical continues to require milrinone. Urine output adequate. Chest x-ray shows bilateral infiltrate effusion. CT chest to better define effusions and infiltrate. Increase Bumex to 1 mg every 8 hours. Patient is persistently weak, will attempt SBT unlikely to be successfully extubated at this time. Most likely will need tracheostomy if family desires aggressive care 02/19: Remains intubated sedated with Versed and fentanyl. Transition to Precedex to facilitate weaning trials. Patient responding slightly more to verbal command, appears to track even though not following commands. Creatinine slightly increased with increased diuresis. Chest x-ray shows improved pleural effusions. CT chest yesterday did not show significant effusion but basilar consolidation. 02/20 Patient was extubated yesterday on 10L simple mask, on Precdex, Heparin and Milrinone drips. Tmax 101.1 yesterday 02/21: Febrile. Currently on 5 L nasal cannula. Continues on heparin drip with 500 units an hour. Received bumetanide 1 mg 1 today. Positive BM 02/22: Remains on 5 L nasal cannula. Remains on heparin drip. No changes neurologically remains medically stable. 02/23: Intubated early this morning secondary to acute respiratory failure. Blood pressure marginal likely due to sedation. Ejection fraction less than 20% . Discussed with at bedside. She was to proceed with tracheostomy in PEG tube placement. We will plan for within the next few days. 02/24: Remains sedated, orally intubated on mechanical ventilation. 02/25: Remains sedated, orally intubated on mechanical ventilation. Worsening renal function noted. Check UA, urine sodium and creatinine. Ordered Kayexalate for hyperkalemia and nephrology consulted. 02/26: Sedated, arousable, orally intubated on mechanical ventilation. Will hold Plavix for planned tracheostomy and PEG tube placement. Remains on heparin for anticoagulation. 02/27: Drowsy, arousable, orally intubated on mechanical ventilation. Awaiting tracheostomy and PEG tube placement. 02/28: Drowsy, arousable, remains orally intubated on mechanical ventilation. PEG tube scheduled for today. 03/01: Drowsy, arousable, remains orally intubated on mechanical ventilation. Underwent PEG tube placement on 02/28. Worsening thrombocytopenia noted and now down to 50,000. Will continue holding Plavix and heparin. Check HIT screen and consult hematology. Awaiting tracheostomy 03/02: Drowsy, arousable, remains orally intubated on mechanical vent relation. Hematology consult noted. 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 03/03: Intubated remains heavily sedated. Was unable to wean off the ventilator , became hypoxemic on CPAP yesterday. 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 Will transfuse 3 packed units of platelets prior to tracheostomy planned for 11 AM today. Platelet count 49,000 03/04 Trached yesterday. Had high residuals earlier today (500 mL) and tube feeds placed on hold. KUB unremarkable. Given reglan, now residual is 10 so resuming tube feeds. On CPAP via trach. Remains sedated on fentanyl and versed, will wean. 03/05 Bleeding at trach site overnight, argatroban was placed on hold. Hgb stable 7.4, platelet count 70k. Surgicell has been ordered but has not yet been applied. Off versed, fentanyl drip still running 50 mcg. He is more alert today , communicates his need to have his mouth suctioned. 03/06: No events over the night. T-max of 98.7. Urine output greater than 4 L over the last 24 hours. 03/07: Patient remains afebrile, with a T-max of 98.5. Urine output 2350 mL's over the last 24 hours. No acute events over the night. Patient is currently on CPAP trial 04/21 with respiratory rate in the mid to high teens with tidal volumes 3-400, comfortable. 03/08: No events over the night. Patient tolerated T piece yesterday and he was placed back on CPAP last night. This morning he is back on T piece. He is easily arousable and following some commands. He is complaining of back pain. T-max of 99.2, urine output of 2450 mL's over the last 24 hours. 03/09: Patient tolerated T piece yesterday and he was placed back on CPAP at night. This morning he is sleeping, easily arousable. No other events over the night. T-max of 99.2. I/O 1100/1000. Still having significant amount of diarrhea. 03/10: No events over the night. Patient currently on CPAP 10/5 doing well. T- max of 99.4. I/O 3233/2600. No bleeding upon suction. Still having diarrhea. He is awake, alert, complains of back pain. 03/11: No events over the night. Patient was on CPAP 10/5 over the night. Being switched to T-piece this morning. He is resting comfortable, in no distress. T-max of 98.7 over the last 24 hours. Subjective: 03/12: Afebrile. Remains on T piece 40% and tolerating well. Positive BM. Tolerating tube feeds. Arousable. 03/13 Patient remains on ventilator, tolerated TP's x 4 hrs yesterday. Afebrile. On Argatroban drip. 03/14 Patient was on TP's all day placed on CPAP overnight. Afebrile. Remains on Argatroban drip. 03/15 Patient is on ventilator via trach. T102.2 yesterday Objective Vital Signs / I&O: Vital Signs 03/14/18 08:15 03/14/18 08:30 03/14/18 08:45 Temperature Pulse Rate 97 H 86 92 H Respiratory Rate 18 17 18 Blood Pressure 106/70 104/63 109/68 Pulse Oximetry 92 L 89 L 91 L 03/14/18 09:00 03/14/18 09:15 03/14/18 09:30 Temperature Pulse Rate 85 89 91 H Respiratory Rate 17 17 17 Blood Pressure 107/71 113/71 109/71 Pulse Oximetry 88 L 88 L 87 L 03/14/18 09:33 03/14/18 09:45 03/14/18 10:00 Temperature Pulse Rate 86 90 88 Respiratory Rate 17 19 17 Blood Pressure 108/67 108/65 Pulse Oximetry 90 L 90 L 89 L 03/14/18 10:15 03/14/18 10:30 03/14/18 10:45 Temperature Pulse Rate 89 91 H 91 H Respiratory Rate 18 17 18 Blood Pressure 101/65 104/64 103/64 Pulse Oximetry 89 L 90 L 89 L 03/14/18 11:00 03/14/18 11:15 03/14/18 11:30 Temperature Pulse Rate 90 87 91 H Respiratory Rate 17 17 19 Blood Pressure 103/63 101/61 101/62 Pulse Oximetry 89 L 89 L 90 L 03/14/18 11:45 03/14/18 11:58 03/14/18 12:00 Temperature 98.8 F Pulse Rate 91 H 87 Respiratory Rate 18 18 19 Blood Pressure 104/63 102/63 Pulse Oximetry 90 L 92 L 91 L 03/14/18 12:15 03/14/18 12:30 03/14/18 12:45 Temperature Pulse Rate 85 87 87 Respiratory Rate 20 19 22 Blood Pressure 99/61 L 99/61 L 97/60 L Pulse Oximetry 91 L 92 L 88 L 03/14/18 13:00 03/14/18 13:15 03/14/18 13:30 Temperature Pulse Rate 93 H 89 90 Respiratory Rate 21 21 21 Blood Pressure 108/67 110/67 105/65 Pulse Oximetry 89 L 89 L 94 L 03/14/18 13:45 03/14/18 14:00 03/14/18 14:15 Temperature Pulse Rate 91 H 91 H 86 Respiratory Rate 20 22 21 Blood Pressure 103/65 97/63 L 97/59 L Pulse Oximetry 91 L 90 L 90 L 03/14/18 14:30 03/14/18 14:45 03/14/18 15:00 Temperature Pulse Rate 90 89 90 Respiratory Rate 22 24 23 Blood Pressure 95/58 L 96/61 L 98/62 L Pulse Oximetry 89 L 89 L 88 L 03/14/18 15:02 03/14/18 15:15 03/14/18 15:30 Temperature Pulse Rate 89 103 H 94 H Respiratory Rate 22 29 H 20 Blood Pressure 114/72 105/63 Pulse Oximetry 92 L 91 L 87 L 03/14/18 15:45 03/14/18 16:00 03/14/18 16:15 Temperature 102.2 F H Pulse Rate 93 H 92 H 106 H Respiratory Rate 21 21 26 H Blood Pressure 107/67 98/64 L 105/68 Pulse Oximetry 87 L 87 L 91 L 03/14/18 16:30 03/14/18 16:45 03/14/18 17:00 Temperature Pulse Rate 87 85 79 Respiratory Rate 20 19 20 Blood Pressure 101/61 98/62 L 94/54 L Pulse Oximetry 88 L 85 L 87 L 03/14/18 17:15 03/14/18 17:30 03/14/18 17:45 Temperature Pulse Rate 86 87 96 H Respiratory Rate 19 20 44 H Blood Pressure 93/58 L 92/58 L 89/55 L Pulse Oximetry 86 L 88 L 03/14/18 18:00 03/14/18 20:00 03/14/18 20:37 Temperature 98.6 F Pulse Rate 84 75 86 Respiratory Rate 18 18 Blood Pressure 89/55 L Pulse Oximetry 96 03/14/18 20:40 03/14/18 22:00 03/15/18 00:00 Temperature 98.9 F Pulse Rate 60 89 Respiratory Rate 22 20 Blood Pressure 113/68 Pulse Oximetry 100 97 03/15/18 00:31 03/15/18 00:38 03/15/18 02:00 Temperature Pulse Rate 106 H Respiratory Rate 25 H 22 Blood Pressure Pulse Oximetry 99 03/15/18 02:30 03/15/18 02:44 03/15/18 03:54 Temperature Pulse Rate 96 H Respiratory Rate 25 H 24 Blood Pressure Pulse Oximetry 100 03/15/18 04:00 03/15/18 04:02 03/15/18 06:00 Temperature 98.7 F Pulse Rate 102 H 109 H Respiratory Rate 20 23 Blood Pressure 108/73 Pulse Oximetry 97 92 L Intake & Output 03/14/18 03/15/18 03/15/18 18:59 06:59 18:59 Intake Total 1159 / 1159 1514 / 1514 Output Total 1670 / 1670 1999 Balance -511 / -511 -486 / -486 Weight 67.5 kg Intake: IV 250 / 250 Novastan Inj 250 MG In NS Inj 250 / 250 247.5 ML @ 2 MCG/KG/MIN 7.56 mls/hr IV.CONT TITRATE PRN Rx#: [id number] Tube Feeding 559 / 559 664 / 664 Tube Irrigant 600 / 600 600 / 600 Output: Stool 120 / 120 1000 / 1000 Urine Amount (Catheter) 1550 / 1550 1000 / 1000 Indwelling Urethral Catheter 1550 / 1550 1000 / 1000 Other: Date of Last Bowel Movement 03/14/18 03/14/18 Result Diagrams: 03/15/18 05:37 03/15/18 03:33 Other Results: Laboratory Results - last 12 hr 03/15/18 03/15/18 03/15/18 01:06 03:33 05:37 WBC 2.1 L RBC 2.37 L Hgb 7.7 L Hct 23.1 L MCV 97.4 MCH 32.5 MCHC 33.3 RDW 22.5 H Plt Count 97 L MPV 10.8 Prelim Diff (Auto) Slide review pending Neut % (Auto) 77.3 H Lymph % (Auto) 17.5 [place] % (Auto) 4.9 Eos % (Auto) 0.1 Baso % (Auto) 0.2 Neut # (Auto) 1.6 L Lymph # (Auto) 0.4 L [place] # (Auto) 0.1 Eos # (Auto) 0.0 Baso # (Auto) 0.0 WBC Differential . Diff Scan Auto diff confirmed Differential Comment . Platelet Estimate Low L Platelet Morphology Enlarged H APTT Sodium 143 Potassium 3.6 Chloride 109 H Carbon Dioxide 21.6 Anion Gap 12 BUN 26 H Creatinine 0.87 Estimated GFR 88 L POC Glucose 142 H Random Glucose 92 Calcium 7.5 L Phosphorus 2.3 L Magnesium 1.5 Total Bilirubin 0.6 AST 60 H ALT 33 Alkaline Phosphatase 76 Total Protein 6.0 L Albumin 1.7 L 03/15/18 05:37 WBC RBC Hgb Hct MCV MCH MCHC RDW Plt Count MPV Prelim Diff (Auto) Neut % (Auto) Lymph % (Auto) [place] % (Auto) Eos % (Auto) Baso % (Auto) Neut # (Auto) Lymph # (Auto) [place] # (Auto) Eos # (Auto) Baso # (Auto) WBC Differential Diff Scan Differential Comment Platelet Estimate Platelet Morphology APTT 66.8 H Sodium Potassium Chloride Carbon Dioxide Anion Gap BUN Creatinine Estimated GFR POC Glucose Random Glucose Calcium Phosphorus Magnesium Total Bilirubin AST ALT Alkaline Phosphatase Total Protein Albumin Imaging: Abdomen/Bladder Ultrasound 02/05/18 00:00 CONCLUSION: 1. No evidence of hydronephrosis. 2. The echogenicity of the kidneys is equal to that of the liver which can be seen with medical renal disease. 3. Simple cyst in right kidney. 4. Suboptimal visualization of the left kidney. 5. Small amount of free fluid along the spleen. This could represent an adjacent pleural effusion. Head CT 02/15/18 12:23 CONCLUSION: 1. Negative CT Head non contrast. . Head MRI 02/16/18 08:28 CONCLUSION: 1. New focus of restricted diffusion high along the right cerebral vertex measuring 8 mm consistent with a new small focal acute infarction. 2. There is a new 5 mm area restricted diffusion high along the left cerebral vertex consistent with a new small focal acute infarction. 3. 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 This area is stable compared to the prior examination. 4. Stable bilateral cortical atrophy and mild chronic white matter changes. 5. Chronic bilateral mastoiditis. Chest CT 02/18/18 00:00 CONCLUSION: 1. Increasing basilar and dependent consolidation in both lungs most characteristic of pneumonia or aspiration. 2. Near complete resolution of previous small effusions. 3. Osteopenia with stable compression deformities in the spine. 4. Previous sternotomy with aortic valve replacement. 5. Right-sided central line, ET tube and NG tube in good position. Abdomen X-Ray 03/04/18 00:00 CONCLUSION: Paucity of bowel gas in the abdomen. Nondilated small air-filled segment of the ascending colon seen. Chest X-Ray 03/14/18 07:11 CONCLUSION: 1. Slightly improved aeration of the right mid to lower lung zones with persistent diffuse bilateral, right greater than left, interstitial and airspace opacities with associated small bilateral pleural effusions. Objective Remarks: GENERAL: 62-year-old gentleman, awake, alert, ill-appearing, on vent. HEENT: Pupils are equal and reactive, sclera anicteric. Trach in place. No JVD. CARDIOVASCULAR: Regular heart sounds, no murmurs appreciated. RESPIRATORY: Scattered coarse breath sounds bilateral. No wheezes. Good air entry. GASTROINTESTINAL: Abdomen soft, not tender, not distended, bowel sounds are present. PEG in in place. MUSCULOSKELETAL: Extremities with bilateral trace lower extremity edema. Peripheral pulses are present. NEURO: On ventilator via trach Assessment and Plan - Assessment and Plan Plan: NEURO/PSYCH: History of stroke in 2015 Neuropathy left upper and lower extremity Chronic low back pain On no sedation, monitor neuro status On ASA 81 mg daily. Continue pregabalin 150 mg p.o. twice daily. Holding duloxetine 90 mg p.o. daily. 02/15 CT brain: No acute findings. 02/15 EEG : Encephalopathy, no epileptiform activity MRI brain 02/16: New small focal acute infarction right cerebral vertex and also left cerebral vertex. Neuro follow up RESP: Acute hypoxic respiratory failure -unchanged, on minimal O2 requirements, tolerating T piece during daytime and CPAP at night COPD on 2.5 L home O2 Prior tobacco abuse Bilateral pleural effusions Perc trach 03/03. Continue with vent support keep sats >92% T-piece during daytime as garrett and CPAP at night as tolerated Albuterol/ipratropium aerosols every 6 hours with albuterol aerosols every 2 hours as needed for dyspnea Vent bundle, On Solumederol 20mg IV daily CV: V. tach/V. fib arrest -resolved NSTEMI Cardiogenic shock -resolved Acute systolic heart failure Atrial fibrillation with RVR [place] mechanical aortic valve (09/21/12 Dr. Gonzalez) s/p Tricuspid annuloplasty Monitor HR and BP keep MAP>65mmHg On amiodarone 400mg BID, Continue aspirin 81 mg daily Clopidogrel is on hold since 02/26 for trach and PEG and will resume when plt > 80 per hematology Continue atorvastatin 40 mg nightly. s/p cath And PCI -proximal LAD and large diagonal 90% stenosis, 2 BMS stent 02/05, mid LAD vasospasm post PCI Off IABP 02/08/18 [place] 01/23/18no vegetation. Normal aortic mechanical valve with trivial aortic insufficiency. Tricuspid annuloplasty. 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 with free water 300 cc every 6 hours Status post PEG tube placement Lansoprazole for stress ulcer prophylactic Had normal EGD on 10/21/17 FEN/RENAL: Acute kidney injury -creatinine is improved urine output is appropriate Hypopotassemia BPH Hypomagnesemia Hypo-phosphatemia Continue free water at 300 cc every 6 hours Monitor renal function, I/O's, creatinine slowly improving. 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 difficile colitis -still having diarrhea Funguria On p.o. Vanco, Off Cefazolin Infectious disease following. 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 Continue holding Plavix and heparin. 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 Monitor Coags No bleeding from trach site ENDO: SSI to maintain euglycemia PROPH: on argatroban. Protonix for stress ulcer prophylaxis ACCESS: PIV in place. Palliative care is following. No family present at bedside. Level 3 follow-up
[2018-03-15] MEDS: Hypromellose 0.3% Opth Gel 10 GM Bottle EACH EYE SCH ×2 (08:58→21:06)
[2018-03-15] MEDS: Ascorbic Acid 500 MG Tablet NG/OG SCH (08:59)
[2018-03-15] MEDS: Ferrrous Sulfate 300 MG/5 ML UDC PO SCH (08:59)
[2018-03-15] MEDS: Pregabalin 75 MG Capsule PO SCH ×2 (08:59→21:06)
[2018-03-15] MEDS: Amiodarone 200 MG Tablet G-TUBE SCH ×2 (08:59→21:06)
[2018-03-15] MEDS: Potassium Phosphate 500 MG Soluble Tablet PO PRN ×2 (08:59→12:53)
[2018-03-15] MEDS: Chlorhexidine 0.12% Oral Kit 15 ML UDC OROPHARYNG SCH ×2 (09:01→21:06)
[2018-03-15] MEDS: MethylPREDNISolone Sod Succinate Inj 40 MG/ML Vial IV.PUSH SCH (09:01)
[2018-03-15] MEDS: Beneprotein Powder Packet G-TUBE SCH ×3 (09:01→18:12)
[2018-03-15] MEDS: Senna/Docusate Sodium 8.6/50 MG Tablet PO SCH ×2 (09:02→21:07)
[2018-03-15 11:07] LABS: Bacteria,Urine Occasional /hpf; Bilirubin,Urine Negative (Negative); Clarity,Urine Turbid (Clear); Color,Urine Yellow (Yellw/Straw); Glucose,Urine (UA) Negative (Negative); Hyaline Casts,Urine 8 /lpf (0-3); Leukocyte Esterase,Urine Negative (Negative); Mucus,Urine Few /lpf (Occasional); Nitrite,Urine Negative (Negative); Specific Gravity,Urine 1.008 (1.002-1.035)
--- NOTE | 2018-03-15 12:32 | P.PNONC ---
Subjective Interval history: Febrile, T-max 102.4F. Patient with eyes closed, on the ventilator. His nurses at the bedside. He has ice packs to axilla and groin. Urine and blood cultures are pending. The patient has been hypotensive and decreased O2 sats this a.m. Objective Vital Signs/Intake & Output: Vital Signs 03/14/18 12:15 03/14/18 12:30 03/14/18 12:45 Temperature Pulse Rate 85 87 87 Respiratory Rate 20 19 22 Blood Pressure 99/61 L 99/61 L 97/60 L Pulse Oximetry 91 L 92 L 88 L 03/14/18 13:00 03/14/18 13:15 03/14/18 13:30 Temperature Pulse Rate 93 H 89 90 Respiratory Rate 21 21 21 Blood Pressure 108/67 110/67 105/65 Pulse Oximetry 89 L 89 L 94 L 03/14/18 13:45 03/14/18 14:00 03/14/18 14:15 Temperature Pulse Rate 91 H 91 H 86 Respiratory Rate 20 22 21 Blood Pressure 103/65 97/63 L 97/59 L Pulse Oximetry 91 L 90 L 90 L 03/14/18 14:30 03/14/18 14:45 03/14/18 15:00 Temperature Pulse Rate 90 89 90 Respiratory Rate 22 24 23 Blood Pressure 95/58 L 96/61 L 98/62 L Pulse Oximetry 89 L 89 L 88 L 03/14/18 15:02 03/14/18 15:15 03/14/18 15:30 Temperature Pulse Rate 89 103 H 94 H Respiratory Rate 22 29 H 20 Blood Pressure 114/72 105/63 Pulse Oximetry 92 L 91 L 87 L 03/14/18 15:45 03/14/18 16:00 03/14/18 16:15 Temperature 102.2 F H Pulse Rate 93 H 92 H 106 H Respiratory Rate 21 21 26 H Blood Pressure 107/67 98/64 L 105/68 Pulse Oximetry 87 L 87 L 91 L 03/14/18 16:30 03/14/18 16:45 03/14/18 17:00 Temperature Pulse Rate 87 85 79 Respiratory Rate 20 19 20 Blood Pressure 101/61 98/62 L 94/54 L Pulse Oximetry 88 L 85 L 87 L 03/14/18 17:15 03/14/18 17:30 03/14/18 17:45 Temperature Pulse Rate 86 87 96 H Respiratory Rate 19 20 44 H Blood Pressure 93/58 L 92/58 L 89/55 L Pulse Oximetry 86 L 88 L 03/14/18 18:00 03/14/18 20:00 03/14/18 20:37 Temperature 98.6 F Pulse Rate 84 75 86 Respiratory Rate 18 18 Blood Pressure 89/55 L Pulse Oximetry 96 03/14/18 20:40 03/14/18 22:00 03/15/18 00:00 Temperature 98.9 F Pulse Rate 60 89 Respiratory Rate 22 20 Blood Pressure 113/68 Pulse Oximetry 100 97 03/15/18 00:31 03/15/18 00:38 03/15/18 02:00 Temperature Pulse Rate 106 H Respiratory Rate 25 H 22 Blood Pressure Pulse Oximetry 99 03/15/18 02:30 03/15/18 02:44 03/15/18 03:30 Temperature Pulse Rate 91 H Respiratory Rate 25 H 32 H Blood Pressure 106/65 Pulse Oximetry 100 93 L 03/15/18 03:45 03/15/18 03:54 03/15/18 04:00 Temperature 98.7 F Pulse Rate 96 H 96 H 109 H Respiratory Rate 32 H 24 41 H Blood Pressure 107/63 114/68 Pulse Oximetry 89 L 68 L 03/15/18 04:02 03/15/18 04:15 03/15/18 04:30 Temperature Pulse Rate 107 H 111 H Respiratory Rate 23 32 H 33 H Blood Pressure 109/66 116/63 Pulse Oximetry 92 L 93 L 90 L 03/15/18 04:45 03/15/18 05:00 03/15/18 05:15 Temperature Pulse Rate 106 H 104 H 110 H Respiratory Rate 31 H 36 H 42 H Blood Pressure 112/59 L 108/61 108/73 Pulse Oximetry 94 L 99 84 L 03/15/18 05:30 03/15/18 05:45 03/15/18 06:00 Temperature Pulse Rate 105 H 106 H 109 H Respiratory Rate 36 H 39 H 39 H Blood Pressure 103/65 107/60 108/65 Pulse Oximetry 96 96 91 L 03/15/18 06:15 03/15/18 06:30 03/15/18 06:45 Temperature Pulse Rate 109 H 114 H 113 H Respiratory Rate 55 H 49 H 36 H Blood Pressure 107/64 111/71 111/66 Pulse Oximetry 93 L 89 L 100 03/15/18 07:00 03/15/18 07:15 03/15/18 07:30 Temperature Pulse Rate 102 H 97 H 94 H Respiratory Rate 30 H 24 24 Blood Pressure 99/63 L 89/53 L 84/51 L Pulse Oximetry 95 91 L 91 L 03/15/18 07:45 03/15/18 08:00 03/15/18 08:15 Temperature 102.4 F H Pulse Rate 94 H 93 H 91 H Respiratory Rate 24 24 21 Blood Pressure 89/54 L 86/54 L 90/55 L Pulse Oximetry 92 L 93 L 93 L 03/15/18 08:22 03/15/18 08:30 03/15/18 08:45 Temperature Pulse Rate 95 H 90 90 Respiratory Rate 22 23 20 Blood Pressure 87/51 L 89/54 L Pulse Oximetry 94 L 92 L 03/15/18 09:00 03/15/18 09:15 03/15/18 09:30 Temperature Pulse Rate 95 H 92 H 98 H Respiratory Rate 22 21 25 H Blood Pressure 93/59 L 105/58 L 99/62 L Pulse Oximetry 93 L 93 L 88 L 03/15/18 09:45 03/15/18 10:00 03/15/18 10:15 Temperature Pulse Rate 97 H 94 H 98 H Respiratory Rate 24 26 H 24 Blood Pressure 98/60 L 103/62 99/57 L Pulse Oximetry 94 L 91 L 94 L 03/15/18 10:30 03/15/18 10:45 03/15/18 11:00 Temperature Pulse Rate 94 H 95 H 96 H Respiratory Rate 23 26 H 34 H Blood Pressure 92/55 L 90/55 L 92/56 L Pulse Oximetry 93 L 93 L 92 L 03/15/18 11:14 03/15/18 11:15 03/15/18 11:30 Temperature Pulse Rate 96 H 94 H Respiratory Rate 23 24 22 Blood Pressure 95/60 L 99/58 L Pulse Oximetry 92 L 92 L 92 L 03/15/18 11:45 03/15/18 12:00 Temperature 101.8 F H Pulse Rate 103 H 97 H Respiratory Rate 27 H 28 H Blood Pressure 98/63 L 95/61 L Pulse Oximetry 94 L 91 L Intake & Output 03/14/18 03/15/18 03/15/18 18:59 06:59 18:59 Intake Total 1159 / 1159 1514 / 1514 Output Total 1670 / 1670 1999 Balance -511 / -511 -486 / -486 Weight 67.5 kg Intake: IV 250 / 250 Novastan Inj 250 MG In NS Inj 250 / 250 247.5 ML @ 2 MCG/KG/MIN 7.56 mls/hr IV.CONT TITRATE PRN Rx#: [id number] Tube Feeding 559 / 559 664 / 664 Tube Irrigant 600 / 600 600 / 600 Output: Stool 120 / 120 1000 / 1000 Urine Amount (Catheter) 1550 / 1550 1000 / 1000 Indwelling Urethral Catheter 1550 / 1550 1000 / 1000 Other: Date of Last Bowel Movement 03/14/18 03/14/18 03/15/18 Result Diagrams: 03/15/18 05:37 03/15/18 03:33 Laboratory Results: Laboratory Results - last 24 hr 03/14/18 03/14/18 03/15/18 12:37 17:28 01:06 WBC RBC Hgb Hct MCV MCH MCHC RDW Plt Count MPV Prelim Diff (Auto) Neut % (Auto) Lymph % (Auto) [place] % (Auto) Eos % (Auto) Baso % (Auto) Neut # (Auto) Lymph # (Auto) [place] # (Auto) Eos # (Auto) Baso # (Auto) WBC Differential Diff Scan Differential Comment Platelet Estimate Platelet Morphology APTT Sodium Potassium Chloride Carbon Dioxide Anion Gap BUN Creatinine Estimated GFR POC Glucose 199 H 202 H 142 H Random Glucose Calcium Phosphorus Magnesium Total Bilirubin AST ALT Alkaline Phosphatase Total Protein Albumin Urine Color Urine Clarity Urine pH Ur Specific [place] Urine Protein Urine Glucose (UA) Urine Ketones Urine Occult Blood Urine Nitrate Urine Bilirubin Urine Urobilinogen Ur Leukocyte Esterase Urine RBC Urine WBC Urine Bacteria Hyaline Casts Urine Mucus Urine Yeast Ur Yeast w [place]pha[place] Micro UA Comment Ur Microscopic Review Urine Culture Comments 03/15/18 03/15/18 03/15/18 03:33 05:37 05:37 WBC 2.1 L RBC 2.37 L Hgb 7.7 L Hct 23.1 L MCV 97.4 MCH 32.5 MCHC 33.3 RDW 22.5 H Plt Count 97 L MPV 10.8 Prelim Diff (Auto) Slide review pending Neut % (Auto) 77.3 H Lymph % (Auto) 17.5 [place] % (Auto) 4.9 Eos % (Auto) 0.1 Baso % (Auto) 0.2 Neut # (Auto) 1.6 L Lymph # (Auto) 0.4 L [place] # (Auto) 0.1 Eos # (Auto) 0.0 Baso # (Auto) 0.0 WBC Differential . Diff Scan Auto diff confirmed Differential Comment . Platelet Estimate Low L Platelet Morphology Enlarged H APTT 66.8 H Sodium 143 Potassium 3.6 Chloride 109 H Carbon Dioxide 21.6 Anion Gap 12 BUN 26 H Creatinine 0.87 Estimated GFR 88 L POC Glucose Random Glucose 92 Calcium 7.5 L Phosphorus 2.3 L Magnesium 1.5 Total Bilirubin 0.6 AST 60 H ALT 33 Alkaline Phosphatase 76 Total Protein 6.0 L Albumin 1.7 L Urine Color Urine Clarity Urine pH Ur Specific [place] Urine Protein Urine Glucose (UA) Urine Ketones Urine Occult Blood Urine Nitrate Urine Bilirubin Urine Urobilinogen Ur Leukocyte Esterase Urine RBC Urine WBC Urine Bacteria Hyaline Casts Urine Mucus Urine Yeast Ur Yeast w [place] Micro UA Comment Ur Microscopic Review Urine Culture Comments 03/15/18 03/15/18 09:54 11:37 WBC RBC Hgb Hct MCV MCH MCHC RDW Plt Count MPV Prelim Diff (Auto) Neut % (Auto) Lymph % (Auto) [place] % (Auto) Eos % (Auto) Baso % (Auto) Neut # (Auto) Lymph # (Auto) [place] # (Auto) Eos # (Auto) Baso # (Auto) WBC Differential Diff Scan Differential Comment Platelet Estimate Platelet Morphology APTT Sodium Potassium Chloride Carbon Dioxide Anion Gap BUN Creatinine Estimated GFR POC Glucose 95 Random Glucose Calcium Phosphorus Magnesium Total Bilirubin AST ALT Alkaline Phosphatase Total Protein Albumin Urine Color Yellow Urine Clarity Turbid H Urine pH 5.0 Ur Specific [place] 1.008 Urine Protein 30 H Urine Glucose (UA) Negative Urine Ketones Negative Urine Occult Blood Small H Urine Nitrate Negative Urine Bilirubin Negative Urine Urobilinogen Less than 2 Ur Leukocyte Esterase Negative Urine RBC Urine WBC 17 H Urine Bacteria Occasional H Hyaline Casts 8 Urine Mucus Few H Urine Yeast Many H Ur Yeast w [place] Occasional H Micro UA Comment Culture indicated Ur Microscopic Review Not Reportable Urine Culture Comments Culture indicated Medications: Active Medications Generic Name Dose Route Start Last Admin Trade Name Freq PRN Reason Stop Dose Admin Acetaminophen 650 mg 02/14/18 09:23 03/15/18 11:37 Tylenol Liq PO 650 mg Q6H PRN Administration FEVER Acetaminophen 650 mg 03/06/18 08:26 03/14/18 17:29 Tylenol PO 650 mg Q4H PRN Administration SEE LABEL COMMENTS Hydrocodone Bitart/Acetaminophen 1 tab 03/05/18 08:11 03/10/18 08:34 Holley 7.5/325 PO 1 tab Q4H PRN Administration pain 1-10 Albuterol 1 ampul 03/12/18 16:00 03/15/18 08:22 Duoneb Neb (Denae) NEB 1 ampul Q6HR NEB DENAE Administration Albuterol 2.5 mg 02/05/18 00:00 03/14/18 00:56 Albuterol Neb (Prn) NEB 2.5 mg Q2HR NEB PRN Administration SHORTNESS OF BREATH/WHEEZING Amiodarone HCl 400 mg 02/11/18 12:00 03/15/18 08:59 Cordarone G-TUBE 400 mg BID DENAE Administration Artificial Tears 1 drops 02/14/18 21:00 03/15/18 08:58 [place] Severe Dry Eye Relief 0.3% Opth Gel EACH EYE 1 drops BID DENAE Administration Ascorbic Acid 500 mg 02/15/18 09:00 03/15/18 08:59 Vitamin C NG/OG 500 mg DAILY DENAE Administration Aspirin 81 mg 02/06/18 09:00 03/15/18 09:00 Aspirin Chew PO 81 mg DAILY DENAE Administration Atorvastatin Calcium 40 mg 02/05/18 21:00 03/14/18 20:51 Lipitor PO 40 mg HS DENAE Administration Chlorhexidine Gluconate 15 ml 02/06/18 08:00 03/15/18 09:01 Peridex 0.12% Oral Kit OROPHARYNG 15 ml BID@0800,2000 DENAE Administration Clopidogrel Bisulfate 75 mg 02/06/18 09:00 02/25/18 09:13 Plavix PO 75 mg DAILY DENAE Administration Dextrose 50 ml 02/13/18 09:27 03/01/18 06:02 D50w Vial IV.PUSH 50 ml UNSCH PRN Administration PER HYPOGLYCEMIA PROTOCOL Digoxin 250 mcg 02/07/18 09:00 02/11/18 15:41 Lanoxin Inj IV.PUSH Not Given DAILY DENAE Duloxetine HCl 90 mg 02/05/18 09:00 02/11/18 11:18 Cymbalta PO Not Given DAILY DENAE Ferrous Sulfate 300 mg 02/15/18 09:00 03/15/18 08:59 Ferrrous Sulfate Liq PO 300 mg DAILY DENAE Administration Argatroban 250 mg/ Sodium 250 mls @ 7.56 mls/hr 03/02/18 15:00 03/15/18 02:53 Chloride IV.CONT 1.5 mcg/kg/min TITRATE PRN 5.67 mls/hr Per Protocol Administration Protocol 2 MCG/KG/MIN Insulin Aspart 0 unit 02/13/18 12:00 03/15/18 11:38 Novolog Insulin Correctional Sugar Inj SQ Not Given Q6HR [facility] Protocol Lactulose 30 ml 02/05/18 00:00 02/05/18 08:38 Lactulose Liq PO 30 ml DAILY PRN Administration SEVERE CONSITIPATION Lansoprazole 30 mg 02/15/18 09:00 03/15/18 09:01 Prevacid Solutab NG/OG 30 mg DAILY DENAE Administration Magnesium Oxide 800 mg 03/12/18 08:37 03/15/18 09:00 Mag-Ox PO 800 mg UNSCH PRN Administration For Magnesium 1.2 - 1.6 mg/dL Methylprednisolone Sodium Succinate 20 mg 03/07/18 11:47 03/15/18 09:01 Solumedrol Inj IV.PUSH 20 mg DAILY DENAE Administration Morphine Sulfate 4 mg 03/05/18 08:12 03/15/18 06:57 Morphine Inj IV.PUSH 4 mg Q3H PRN Administration breakthrough pain Multivitamins 1 tab 02/05/18 09:00 03/15/18 08:59 Theragran PO 1 tab DAILY DENAE Administration Potassium Phosphate 2,000 mg 03/12/18 08:37 03/15/18 08:59 K-Phos Original PO 2,000 mg Q4H PRN Administration Phosphorus Less Than 2.5 mg/dL Pregabalin 150 mg 02/04/18 23:50 03/15/18 08:59 Lyrica PO 150 mg BID DENAE Administration Senna/Docusate Sodium 1 tab 02/05/18 09:00 03/15/18 09:02 Linda-Colace PO Not Given BID [facility] Sodium Chloride 2 ml 02/05/18 09:00 03/15/18 09:02 Ns Flush IV.FLUSH 2 ml BID DENAE Administration Sterile Water 300 ml 03/02/18 18:00 03/15/18 11:38 Free Water G-TUBE 300 ml Q6HR DENAE Administration Vancomycin HCl 500 mg 02/11/18 16:00 03/15/18 11:37 Vancomycin Po G-TUBE 500 mg Q6HR DENAE Administration Whey 1 packet 02/08/18 13:00 03/15/18 09:01 Beneprotein Powder G-TUBE 1 packet TID DENAE Administration Objective Remarks: GENERAL: Ill-appearing cachectic older male patient, with eyes closed, + vent. SKIN: Pale, warm and diaphoretic. HEAD: Normocephalic. EYES: No scleral icterus. No injection or drainage. NECK: Tracheostomy midline. No bleeding/oozing noted at tracheostomy site, erythema noted at base of collar. CARDIOVASCULAR: +S1/S2 without murmurs. RESPIRATORY: Bilateral rhonchi. +vent. GASTROINTESTINAL: Abdomen soft, non-tender, distended. Feeding tube LUQ. EXTREMITIES: No cyanosis, or edema. MUSCULOSKELETAL: Generalized weakness, decreased muscle tone. NEUROLOGICAL: Patient not responding to questions, he did squeeze his right hand. Assessment/Plan - Plan 62-year-old male admitted to the hospital in late January for fever and hypotension. He was found to have septic shock. He has C. difficile colitis. Hematology consulted for thrombocytopenia. 1. RITA negative. Continues on argatroban drip. No obvious bleeding noted. 2. Continue to monitor platelet count. Patient's platelet count has increased today to 97k, we will recheck tomorrow to see if this stabilizes above 70 K. Once platelets are stable and remain above 70 K, he will be transitioned to Coumadin. We will check a baseline INR in the a.m., in preparation for this transition. 3. Continue to monitor CBC, coags and liver functions. 4. Fevers, possibly secondary to bacteremia. Urine culture and blood cultures are pending. Infectious disease has been following the patient. He remains on antibiotics per their instruction. 5. Pancytopenia, platelets are recovering, however hemoglobin has decreased to 7.7 and leukopenia persists, likely secondary to infection. We will transfuse 1 unit of PRBCs. - Attending Statement The exam, history, and the medical decision-making described in the above note were completed with the assistance of the mid-level provider. I reviewed and agree with the findings presented. I attest that I had a [id number] encounter with the patient on the same day, and personally performed and documented my assessment and findings in the medical record. Patient is febrile this morning. His platelet count trended up to 97,000. His white blood cell count trended down slightly. With the fever he could develop consumptive process again and platelet could trend lower. Continue to monitor CBC and if his platelet is consistently above 70,000 then he could be transitioned to Coumadin.
[2018-03-15] MEDS ORDERED: Sodium Chlor 0.9% Inj 250 ML IV.SIG SCH (13:00)
--- NOTE | 2018-03-15 16:40 | P.PNPAL ---
Reason for Visit Reason for visit: a. To assist with evaluation and management of symptoms including: pain, dyspnea, weakness b. To assist medical decision maker(s) with: better understanding of current medical conditions; weighing benefits/burdens of medical treatment options; making medical treatment decisions. Subjective Subjective/Interval History: Pt in bed, lethargic but does respond to his name being called. Appears comfortable. Shakes his head 'NO' when asked about pain. Does not respond when asked about SOB. follows commands. Squeezes both hands but left side weaker than right side. Still with copious liquid stool. Abd mildly distended on exam. FEver this morning and yesterday morning. Vergara cx pending. Sputum cx show gram negative rods. Lungs coarse on exam bilaterally and throughout. Back on vent, FiO2 60%. PLT trending up. Possible he can go to [facility] if not on argatroban. Family/Friend Interactions: pt's and pts sister at bedside: -family understanding of the current medical problems -family understanding of prognosis - high risk for continued decline, complications such as infections -Current medical treatment options and their benefits/burdens -Questions answered to the best of my ability - Palliative care contact information provided Goals remain aggressive. believes that eventually pt will make improvement and "2 steps forward, one step back." She believes the Lord will heal him. has concerns that is left side is weaker. Explained that he is becoming weaker and further deconditioning. SHe wants to know if his EF has improved. Objective Vital Signs: Vital Signs 03/14/18 16:00 03/14/18 16:15 03/14/18 16:30 Temperature 102.2 F H Pulse Rate 92 H 106 H 87 Respiratory Rate 21 26 H 20 Blood Pressure 98/64 L 105/68 101/61 Pulse Oximetry 87 L 91 L 88 L 03/14/18 16:45 03/14/18 17:00 03/14/18 17:15 Temperature Pulse Rate 85 79 86 Respiratory Rate 19 20 19 Blood Pressure 98/62 L 94/54 L 93/58 L Pulse Oximetry 85 L 87 L 86 L 03/14/18 17:30 03/14/18 17:45 03/14/18 18:00 Temperature Pulse Rate 87 96 H 84 Respiratory Rate 20 44 H Blood Pressure 92/58 L 89/55 L Pulse Oximetry 88 L 03/14/18 20:00 03/14/18 20:37 03/14/18 20:40 Temperature 98.6 F Pulse Rate 75 86 Respiratory Rate 18 18 22 Blood Pressure 89/55 L Pulse Oximetry 96 100 03/14/18 22:00 03/15/18 00:00 03/15/18 00:31 Temperature 98.9 F Pulse Rate 60 89 Respiratory Rate 20 25 H Blood Pressure 113/68 Pulse Oximetry 97 99 03/15/18 00:38 03/15/18 02:00 03/15/18 02:30 Temperature Pulse Rate 106 H Respiratory Rate 22 Blood Pressure Pulse Oximetry 100 03/15/18 02:44 03/15/18 03:30 03/15/18 03:45 Temperature Pulse Rate 91 H 96 H Respiratory Rate 25 H 32 H 32 H Blood Pressure 106/65 107/63 Pulse Oximetry 93 L 89 L 03/15/18 03:54 03/15/18 04:00 03/15/18 04:02 Temperature 98.7 F Pulse Rate 96 H 109 H Respiratory Rate 24 41 H 23 Blood Pressure 114/68 Pulse Oximetry 68 L 92 L 03/15/18 04:15 03/15/18 04:30 03/15/18 04:45 Temperature Pulse Rate 107 H 111 H 106 H Respiratory Rate 32 H 33 H 31 H Blood Pressure 109/66 116/63 112/59 L Pulse Oximetry 93 L 90 L 94 L 03/15/18 05:00 03/15/18 05:15 03/15/18 05:30 Temperature Pulse Rate 104 H 110 H 105 H Respiratory Rate 36 H 42 H 36 H Blood Pressure 108/61 108/73 103/65 Pulse Oximetry 99 84 L 96 03/15/18 05:45 03/15/18 06:00 03/15/18 06:15 Temperature Pulse Rate 106 H 109 H 109 H Respiratory Rate 39 H 39 H 55 H Blood Pressure 107/60 108/65 107/64 Pulse Oximetry 96 91 L 93 L 03/15/18 06:30 03/15/18 06:45 03/15/18 07:00 Temperature Pulse Rate 114 H 113 H 102 H Respiratory Rate 49 H 36 H 30 H Blood Pressure 111/71 111/66 99/63 L Pulse Oximetry 89 L 100 95 03/15/18 07:15 03/15/18 07:30 03/15/18 07:45 Temperature Pulse Rate 97 H 94 H 94 H Respiratory Rate 24 24 24 Blood Pressure 89/53 L 84/51 L 89/54 L Pulse Oximetry 91 L 91 L 92 L 03/15/18 08:00 03/15/18 08:15 03/15/18 08:22 Temperature 102.4 F H Pulse Rate 93 H 91 H 95 H Respiratory Rate 24 21 22 Blood Pressure 86/54 L 90/55 L Pulse Oximetry 93 L 93 L 03/15/18 08:30 03/15/18 08:45 03/15/18 09:00 Temperature Pulse Rate 90 90 95 H Respiratory Rate 23 20 22 Blood Pressure 87/51 L 89/54 L 93/59 L Pulse Oximetry 94 L 92 L 93 L 03/15/18 09:15 03/15/18 09:30 03/15/18 09:45 Temperature Pulse Rate 92 H 98 H 97 H Respiratory Rate 21 25 H 24 Blood Pressure 105/58 L 99/62 L 98/60 L Pulse Oximetry 93 L 88 L 94 L 03/15/18 10:00 03/15/18 10:15 03/15/18 10:30 Temperature Pulse Rate 94 H 98 H 94 H Respiratory Rate 26 H 24 23 Blood Pressure 103/62 99/57 L 92/55 L Pulse Oximetry 91 L 94 L 93 L 03/15/18 10:45 03/15/18 11:00 03/15/18 11:14 Temperature Pulse Rate 95 H 96 H Respiratory Rate 26 H 34 H 23 Blood Pressure 90/55 L 92/56 L Pulse Oximetry 93 L 92 L 92 L 03/15/18 11:15 03/15/18 11:30 03/15/18 11:45 Temperature Pulse Rate 96 H 94 H 103 H Respiratory Rate 24 22 27 H Blood Pressure 95/60 L 99/58 L 98/63 L Pulse Oximetry 92 L 92 L 94 L 03/15/18 12:00 03/15/18 12:15 03/15/18 12:30 Temperature 101.8 F H Pulse Rate 97 H 101 H 92 H Respiratory Rate 28 H 33 H 26 H Blood Pressure 95/61 L 98/62 L 97/57 L Pulse Oximetry 91 L 90 L 91 L 03/15/18 12:45 03/15/18 14:00 03/15/18 15:00 Temperature 98.6 F Pulse Rate 93 H 83 99 H Respiratory Rate 32 H 33 H Blood Pressure 95/61 L Pulse Oximetry 91 L 03/15/18 15:41 Temperature Pulse Rate Respiratory Rate 26 H Blood Pressure Pulse Oximetry 99 Intake & Output 03/14/18 03/15/18 03/15/18 18:59 06:59 18:59 Intake Total 1159 / 1159 1514 / 1514 Output Total 1670 / 1670 1999 Balance -511 / -511 -486 / -486 Weight 67.5 kg Intake: IV 250 / 250 Novastan Inj 250 MG In NS Inj 250 / 250 247.5 ML @ 2 MCG/KG/MIN 7.56 mls/hr IV.CONT TITRATE PRN Rx#: [id number] Tube Feeding 559 / 559 664 / 664 Tube Irrigant 600 / 600 600 / 600 Output: Stool 120 / 120 1000 / 1000 Urine Amount (Catheter) 1550 / 1550 1000 / 1000 Indwelling Urethral Catheter 1550 / 1550 1000 / 1000 Other: Date of Last Bowel Movement 03/14/18 03/14/18 03/15/18 Physical Exam: CONSTITUTIONAL/GENERAL: ill appearing and cachectic male SKIN: Sallow. No jaundice, rashes, or lesions. No wounds seen anteriorly. Not diaphoretic. HEAD: Atraumatic. Normocephalic. + temporal wasting EYES: No scleral icterus. Fundi not examined. PERRL. ENT: Nose without bleeding or purulent drainage. tracheostomy breathing tx CARDIOVASCULAR:RRR without murmurs, gallops, or rubs. + click. RESPIRATORY/CHEST: Symmetric, unlabored respirations. lung sounds coarse GASTROINTESTINAL: Abdomen soft, mildly distended, TTP. No hepato-splenomegaly, or palpable masses. Bowel sounds faint. +rectal bag with liquid stool GENITOURINARY: Without palpable bladder distension. Cano catheter in place. MUSCULOSKELETAL: Extremities without clubbing, cyanosis. No mottling or clubbing. NEUROLOGICAL: verbal today, cooperative, awake and alert Diagnostic Tests Laboratory: Laboratory Results - last 72 hr 03/12/18 03/12/18 03/13/18 18:26 23:58 05:25 WBC 2.2 L RBC 2.59 L Hgb 8.5 L Hct 25.3 L MCV 97.4 MCH 32.7 MCHC 33.5 RDW 22.7 H Plt Count 56 L MPV 11.2 H Prelim Diff (Auto) Slide review pending Neut % (Auto) 77.2 H Lymph % (Auto) 16.4 Davison % (Auto) 6.1 Eos % (Auto) 0.1 Baso % (Auto) 0.2 Neut # (Auto) 1.7 L Lymph # (Auto) 0.4 L Davison # (Auto) 0.1 Eos # (Auto) 0.0 Baso # (Auto) 0.0 WBC Differential . Diff Scan Auto diff confirmed Differential Comment . Platelet Estimate Low L Platelet Morphology Normal APTT Sodium Potassium Chloride Carbon Dioxide Anion Gap BUN Creatinine Estimated GFR POC Glucose 164 H 129 H Random Glucose Calcium Prot Corrected Calcium Phosphorus Magnesium Total Bilirubin AST ALT Alkaline Phosphatase Total Protein Albumin Urine Color Urine Clarity Urine pH Ur Specific [place] Urine Protein Urine Glucose (UA) Urine Ketones Urine Occult Blood Urine Nitrate Urine Bilirubin Urine Urobilinogen Ur Leukocyte Esterase Urine RBC Urine WBC Urine Bacteria Hyaline Casts Urine Mucus Urine Yeast Ur Yeast w Hyphae Micro UA Comment Ur Microscopic Review Urine Culture Comments St C. diff Tox Epid 027 Random Vancomycin C. difficile (PCR) 03/13/18 03/13/18 03/13/18 05:25 05:53 14:44 WBC RBC Hgb Hct MCV MCH MCHC RDW Plt Count MPV Prelim Diff (Auto) Neut % (Auto) Lymph % (Auto) Davison % (Auto) Eos % (Auto) Baso % (Auto) Neut # (Auto) Lymph # (Auto) Davison # (Auto) Eos # (Auto) Baso # (Auto) WBC Differential Diff Scan Differential Comment Platelet Estimate Platelet Morphology APTT Sodium 144 Potassium 3.3 L Chloride 112 H Carbon Dioxide 20.0 L Anion Gap 12 BUN 24 H Creatinine 0.84 Estimated GFR Greater than 89 POC Glucose 144 H 181 H Random Glucose 127 H Calcium 7.2 L* Prot Corrected Calcium 8.1 L Phosphorus 2.0 L Magnesium 1.8 Total Bilirubin 0.3 AST 41 H ALT 20 Alkaline Phosphatase 58 Total Protein 5.4 L Albumin 1.6 L Urine Color Urine Clarity Urine pH Ur Specific [place] Urine Protein Urine Glucose (UA) Urine Ketones Urine Occult Blood Urine Nitrate Urine Bilirubin Urine Urobilinogen Ur Leukocyte Esterase Urine RBC Urine WBC Urine Bacteria Hyaline Casts Urine Mucus Urine Yeast Ur Yeast w Hyphae Micro UA Comment Ur Microscopic Review Urine Culture Comments St C. diff Tox Epid 027 Random Vancomycin C. difficile (PCR) 03/13/18 03/13/18 03/13/18 16:00 17:45 18:28 WBC RBC Hgb Hct MCV MCH MCHC RDW Plt Count MPV Prelim Diff (Auto) Neut % (Auto) Lymph % (Auto) Davison % (Auto) Eos % (Auto) Baso % (Auto) Neut # (Auto) Lymph # (Auto) Davison # (Auto) Eos # (Auto) Baso # (Auto) WBC Differential Diff Scan Differential Comment Platelet Estimate Platelet Morphology APTT 64.4 H D Sodium Potassium Chloride Carbon Dioxide Anion Gap BUN Creatinine Estimated GFR POC Glucose 197 H Random Glucose Calcium Prot Corrected Calcium Phosphorus Magnesium Total Bilirubin AST ALT Alkaline Phosphatase Total Protein Albumin Urine Color Urine Clarity Urine pH Ur Specific [place] Urine Protein Urine Glucose (UA) Urine Ketones Urine Occult Blood Urine Nitrate Urine Bilirubin Urine Urobilinogen Ur Leukocyte Esterase Urine RBC Urine WBC Urine Bacteria Hyaline Casts Urine Mucus Urine Yeast Ur Yeast w Hyphae Micro UA Comment Ur Microscopic Review Urine Culture Comments St C. diff Tox Epid 027 Random Vancomycin Less than 0.8 C. difficile (PCR) 03/13/18 03/14/18 03/14/18 19:20 00:26 05:30 WBC 2.6 L RBC 2.52 L Hgb 8.1 L Hct 24.9 L MCV 98.6 MCH 32.2 MCHC 32.6 RDW 22.9 H Plt Count 75 L D MPV 10.6 Prelim Diff (Auto) Slide review pending Neut % (Auto) 79.1 H Lymph % (Auto) 14.8 Davison % (Auto) 5.4 Eos % (Auto) 0.2 Baso % (Auto) 0.5 Neut # (Auto) 2.0 Lymph # (Auto) 0.4 L Davison # (Auto) 0.1 Eos # (Auto) 0.0 Baso # (Auto) 0.0 WBC Differential . Diff Scan Auto diff confirmed Differential Comment . Platelet Estimate Low L Platelet Morphology Enlarged H APTT Sodium Potassium Chloride Carbon Dioxide Anion Gap BUN Creatinine Estimated GFR POC Glucose 134 H Random Glucose Calcium Prot Corrected Calcium Phosphorus Magnesium Total Bilirubin AST ALT Alkaline Phosphatase Total Protein Albumin Urine Color Urine Clarity Urine pH Ur Specific [place] Urine Protein Urine Glucose (UA) Urine Ketones Urine Occult Blood Urine Nitrate Urine Bilirubin Urine Urobilinogen Ur Leukocyte Esterase Urine RBC Urine WBC Urine Bacteria Hyaline Casts Urine Mucus Urine Yeast Ur Yeast w Hyphae Micro UA Comment Ur Microscopic Review Urine Culture Comments St C. diff Tox Epid 027 Negative Random Vancomycin C. difficile (PCR) Negative 03/14/18 03/14/18 03/14/18 05:30 05:30 05:42 WBC RBC Hgb Hct MCV MCH MCHC RDW Plt Count MPV Prelim Diff (Auto) Neut % (Auto) Lymph % (Auto) Davison % (Auto) Eos % (Auto) Baso % (Auto) Neut # (Auto) Lymph # (Auto) Davison # (Auto) Eos # (Auto) Baso # (Auto) WBC Differential Diff Scan Differential Comment Platelet Estimate Platelet Morphology APTT 77.6 H D Sodium 145 Potassium 3.9 Chloride 112 H Carbon Dioxide 21.7 Anion Gap 11 BUN 23 H Creatinine 0.85 Estimated GFR Greater than 89 POC Glucose 129 H Random Glucose 111 H Calcium 7.5 L Prot Corrected Calcium Phosphorus 2.4 L Magnesium 1.8 Total Bilirubin 0.4 AST 50 H ALT 19 Alkaline Phosphatase 52 Total Protein 5.6 L Albumin 1.6 L Urine Color Urine Clarity Urine pH Ur Specific [place] Urine Protein Urine Glucose (UA) Urine Ketones Urine Occult Blood Urine Nitrate Urine Bilirubin Urine Urobilinogen Ur Leukocyte Esterase Urine RBC Urine WBC Urine Bacteria Hyaline Casts Urine Mucus Urine Yeast Ur Yeast w Hyphae Micro UA Comment Ur Microscopic Review Urine Culture Comments St C. diff Tox Epid 027 Random Vancomycin C. difficile (PCR) 03/14/18 03/14/18 03/14/18 11:46 12:37 17:28 WBC RBC Hgb Hct MCV MCH MCHC RDW Plt Count MPV Prelim Diff (Auto) Neut % (Auto) Lymph % (Auto) Davison % (Auto) Eos % (Auto) Baso % (Auto) Neut # (Auto) Lymph # (Auto) Davison # (Auto) Eos # (Auto) Baso # (Auto) WBC Differential Diff Scan Differential Comment Platelet Estimate Platelet Morphology APTT 59.8 H D Sodium Potassium Chloride Carbon Dioxide Anion Gap BUN Creatinine Estimated GFR POC Glucose 199 H 202 H Random Glucose Calcium Prot Corrected Calcium Phosphorus Magnesium Total Bilirubin AST ALT Alkaline Phosphatase Total Protein Albumin Urine Color Urine Clarity Urine pH Ur Specific [place] Urine Protein Urine Glucose (UA) Urine Ketones Urine Occult Blood Urine Nitrate Urine Bilirubin Urine Urobilinogen Ur Leukocyte Esterase Urine RBC Urine WBC Urine Bacteria Hyaline Casts Urine Mucus Urine Yeast Ur Yeast w Hyphae Micro UA Comment Ur Microscopic Review Urine Culture Comments St C. diff Tox Epid 027 Random Vancomycin C. difficile (PCR) 03/15/18 03/15/18 03/15/18 01:06 03:33 05:37 WBC 2.1 L RBC 2.37 L Hgb 7.7 L Hct 23.1 L MCV 97.4 MCH 32.5 MCHC 33.3 RDW 22.5 H Plt Count 97 L MPV 10.8 Prelim Diff (Auto) Slide review pending Neut % (Auto) 77.3 H Lymph % (Auto) 17.5 Davison % (Auto) 4.9 Eos % (Auto) 0.1 Baso % (Auto) 0.2 Neut # (Auto) 1.6 L Lymph # (Auto) 0.4 L Davison # (Auto) 0.1 Eos # (Auto) 0.0 Baso # (Auto) 0.0 WBC Differential . Diff Scan Auto diff confirmed Differential Comment . Platelet Estimate Low L Platelet Morphology Enlarged H APTT Sodium 143 Potassium 3.6 Chloride 109 H Carbon Dioxide 21.6 Anion Gap 12 BUN 26 H Creatinine 0.87 Estimated GFR 88 L POC Glucose 142 H Random Glucose 92 Calcium 7.5 L Prot Corrected Calcium Phosphorus 2.3 L Magnesium 1.5 Total Bilirubin 0.6 AST 60 H ALT 33 Alkaline Phosphatase 76 Total Protein 6.0 L Albumin 1.7 L Urine Color Urine Clarity Urine pH Ur Specific [place] Urine Protein Urine Glucose (UA) Urine Ketones Urine Occult Blood Urine Nitrate Urine Bilirubin Urine Urobilinogen Ur Leukocyte Esterase Urine RBC Urine WBC Urine Bacteria Hyaline Casts Urine Mucus Urine Yeast Ur Yeast w Hyphae Micro UA Comment Ur Microscopic Review Urine Culture Comments St C. diff Tox Epid 027 Random Vancomycin C. difficile (PCR) 03/15/18 03/15/18 03/15/18 05:37 09:54 11:37 WBC RBC Hgb Hct MCV MCH MCHC RDW Plt Count MPV Prelim Diff (Auto) Neut % (Auto) Lymph % (Auto) Davison % (Auto) Eos % (Auto) Baso % (Auto) Neut # (Auto) Lymph # (Auto) Davison # (Auto) Eos # (Auto) Baso # (Auto) WBC Differential Diff Scan Differential Comment Platelet Estimate Platelet Morphology APTT 66.8 H Sodium Potassium Chloride Carbon Dioxide Anion Gap BUN Creatinine Estimated GFR POC Glucose 95 Random Glucose Calcium Prot Corrected Calcium Phosphorus Magnesium Total Bilirubin AST ALT Alkaline Phosphatase Total Protein Albumin Urine Color Yellow Urine Clarity Turbid H Urine pH 5.0 Ur Specific [place] 1.008 Urine Protein 30 H Urine Glucose (UA) Negative Urine Ketones Negative Urine Occult Blood Small H Urine Nitrate Negative Urine Bilirubin Negative Urine Urobilinogen Less than 2 Ur Leukocyte Esterase Negative Urine RBC Urine WBC 17 H Urine Bacteria Occasional H Hyaline Casts 8 Urine Mucus Few H Urine Yeast Many H Ur Yeast w Hyphae Occasional H Micro UA Comment Culture indicated Ur Microscopic Review Not Reportable Urine Culture Comments Culture indicated St C. diff Tox Epid 027 Random Vancomycin C. difficile (PCR) Result Diagrams: 03/15/18 05:37 03/15/18 03:33 Microbiology: Microbiology 03/15/18 08:50 Gram Stain - Final Sputum - Tracheal Aspirate Procedures: 02/05 left IJ placement 02/05 retrograde left heart cath, stent placement, IABP placement 02/05 intubated 02/19 extubated 02/23 reintubated 02/28 PEG tube placed 03/03 trach Assessment and Plan - Disease Oriented Problem List (1) Hypokalemia (2) Cardiogenic shock (3) CAD (coronary artery disease) (4) Ventricular fibrillation - Symptom Scale (1) Dyspnea 0-10 Scale: Unable to quantify (2) Pain 0-10 Scale: Unable to quantify (3) Debility 0-10 Scale: Unable to quantify Pertinent Non-Medical Issues: Psychosocial: On disability. 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 Spiritual: Pentecostalism, non-nondenominational. Broth Setter has visited, they also have mandaeism assistant sales manager visiting. Legal: Pt not capacitated to make medical decisions. Unclear if he will regain capacity. Per [place] statutes decision making would fall to as proxy. Ethical issues impacting care: none identified Important Contacts: Maria Isabel Tolentino [phone] sister Yvonne Valdivia [phone] Prognosis: 62 yo male s/p aortic valve replacement 2012 who suffered significant NSTEMI, EF <20% on presentation, troponins up to 32. Echo also showed global hypokinesis. Not clear how much of heart failure was present prior to NSTEMI. s /p heart cath, LAD stenting complicated by vasospasm, placement and subsequent removal of IABP. 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 He has had several runs of v fib and v tach requiring chest compressions, shocks. He has underlying COPD and was having activity intolerance prior to this event. He was reintubated. His prognosis for recovery is poor; chances of returning to baseline extremely poor. Unlikely he would tolerate rehab. He remains at high risk for continued complications including but not limited to recurrent arrhythmias, multi-organ injury; and at risk for further decline. He is hospice appropriate should goals be in line with comfort. Code Status: Full Code Plan: - LEGAL DECISON MAKER - Pt not capacitated to make medical decisions, unclear if he will regain this capacity. Per [place] statutes decision making would fall to as proxy. - CODE STATUS- full code - GOALS - Goals remain aggressive. believes that eventually pt will make improvement and "2 steps forward, one step back." She believes the Lord will heal him. has concerns that is left side is weaker. Explained that he is becoming weaker and further deconditioning and is likely to continue to decline and have complications such as recurrent infections. SHe wants to know if his EF has improved. - SYMPTOMS - * dyspnea - multifactorial - hx COPD, EF < 20%, class 4 heart failure. extubated 02/19, on 10L simple mask. reintubated 02/23. fio2 60%. now with trach. lung sounds coarse. sputum growing gram neg rods. ID following. PRN duonebs, scheduled duonebs * pain - multifactorial, lines, ET tube, catheters, acute and chronic pain. sees pain mgmt, been on hydrocodone , reportedly same dosage and frequency for 6 years. denied pain on my eval, appears comfortable. on [place] 7.5 /325 1 tab PO q4h PRN, last had 03/10. on lyrica. deferring pain mgmt per ccm at this time. * debility/weakness - multifactorial. profoundly emaciated and ill appearing, per this is his usual appearance. reintubated, at risk for worsening debility. PT following. [facility]. s/p PEG tube placement, trach. cardiac function prob would not allow aggressive rehab. pt deconditioned , becoming weaker. - d/w RN, d/w CCM - Palliative care will continue to follow during hospital course as condition evolves, to assist patient/decision-maker with understanding of medical conditions, weighing benefits/burdens of treatment options, for clarification of goals of treatment. Additionally will assist with any symptoms of palliative concern Attestation Attestation: To help prompt me to consider important information that might be impacting today's encounter and assessment, information from prior notes written by myself or my colleagues may have been "brought forward" into today's note. My signature on this note, however, is an attestation that I personally performed the exam, history, and/or decision-making noted today, and, unless otherwise indicated, the interactions with patient, family, and staff as well as the review of records all occurred today. I also attest that the listed assessment and stated plan reflect my best clinical judgment today based on the combination of historical information, prior notes, and today's exam/ interactions. When time spent is documented, it refers only to time spent today by the signer, or if indicated, combined time spent today by collaborating physician/nurse practitioner.
--- NOTE | 2018-03-15 17:33 | P.CONNEU ---
History of Present Illness Service: Neurology Primary Care Provider: Regan Rogers Family Provider: Regan Rogers Chief Complaint: Stroke, confusion History of Present Illness: 62-year-old male admitted in January for hypotension. History of mechanical aortic aortic valve, postop A. fib, previous strokes. Patient has a trach G- tube. Earlier this month he had an MRI brain scan which demonstrated small strokes. He is on aspirin and Ditropan. Patient only give any meaningful history of present. Seen by hematology infectious disease critical care. Patient with thrombocytopenia, fevers episodes of hypoxia. Review of Systems All other systems reviewed negative except as stated in HPI [facility] - History History Provided By: Patient - Medical History Medical History: Medical History (Last Reviewed 02/23/18 @ 08:03 by Danielle Sanchez Certified Athletic Trainer, RADIO EQUIPMENT REPAIRER) HLD (hyperlipidemia) MSSA bacteremia Normal endoscopy COPD (chronic obstructive pulmonary disease) CVA (cerebral vascular accident) Neuropathy Osteoporosis - Surgical History Surgical History: Surgical History (Last Reviewed 02/22/18 @ 09:35 by Justin Hankins) H/O mechanical aortic valve replacement History of inguinal hernia repair, bilateral - Family History Family History: Family History (Last Reviewed 02/16/18 @ 09:19 by Iman Ang) Mother CAD (coronary artery disease) Father Valvular heart disease Brother Lung cancer - Tobacco History Second Hand Smoke Exposure: No (On disability. 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 ) Smoking Status: Former smoker Tobacco Type: Cigarettes - Alcohol History How Often Do You Have a Drink Containing Alcohol: Monthly or less - Substance Use History Substance History: No History of Abuse Medications and Allergies Active Medications: Active Medications Acetaminophen (Tylenol Liq) 650 mg PO Q6H PRN PRN Reason: FEVER Last Admin: 03/15/18 11:37 Dose: 650 mg Acetaminophen (Tylenol) 650 mg PO Q4H PRN PRN Reason: SEE LABEL COMMENTS Last Admin: 03/14/18 17:29 Dose: 650 mg Hydrocodone Bitart/Acetaminophen (Colden 7.5/325) 1 tab PO Q4H PRN PRN Reason: pain 1-10 Last Admin: 03/10/18 08:34 Dose: 1 tab Al Hydroxide/Mg Hydroxide (Milk Of Magnesia Liq) 30 ml PO Q12H PRN PRN Reason: Mild Constipation Albuterol (Duoneb Neb (Denae)) 1 ampul NEB Q6HR NEB [facility] Last Admin: 03/15/18 15:40 Dose: 1 ampul Albuterol (Albuterol Neb (Prn)) 2.5 mg NEB Q2HR NEB PRN PRN Reason: SHORTNESS OF BREATH/WHEEZING Last Admin: 03/14/18 00:56 Dose: 2.5 mg Amiodarone HCl (Cordarone) 400 mg G-TUBE BID [facility] Last Admin: 03/15/18 08:59 Dose: 400 mg Artificial Tears (Genteal Severe Dry Eye Relief 0.3% Opth Gel) 1 drops EACH EYE BID [facility] Last Admin: 03/15/18 08:58 Dose: 1 drops Ascorbic Acid (Vitamin C) 500 mg NG/OG DAILY [facility] Last Admin: 03/15/18 08:59 Dose: 500 mg Aspirin (Aspirin Chew) 81 mg PO DAILY [facility] Last Admin: 03/15/18 09:00 Dose: 81 mg Atorvastatin Calcium (Lipitor) 40 mg PO HS [facility] Last Admin: 03/14/18 20:51 Dose: 40 mg Bisacodyl (Dulcolax Supp) 10 mg RECTAL DAILY PRN PRN Reason: SEVERE CONSITIPATION Chlorhexidine Gluconate (Peridex 0.12% Oral Kit) 15 ml OROPHARYNG BID@0800, 2000 [facility] Last Admin: 03/15/18 09:01 Dose: 15 ml Clopidogrel Bisulfate (Plavix) 75 mg PO DAILY [facility] Last Admin: 02/25/18 09:13 Dose: 75 mg Dextrose (D50w Vial) 50 ml IV.PUSH UNSCH PRN PRN Reason: PER HYPOGLYCEMIA PROTOCOL Last Admin: 03/01/18 06:02 Dose: 50 ml Digoxin (Lanoxin Inj) 250 mcg IV.PUSH DAILY [facility] Last Admin: 02/11/18 15:41 Dose: Not Given Diphenhydramine HCl (Benadryl) 25 mg PO Q4H PRN PRN Reason: SEE LABEL COMMENTS Diphenhydramine HCl (Benadryl) 25 mg PO Q4H PRN PRN Reason: SEE LABEL COMMENTS Duloxetine HCl (Cymbalta) 90 mg PO DAILY [facility] Last Admin: 02/11/18 11:18 Dose: Not Given Ferrous Sulfate (Ferrrous Sulfate Liq) 300 mg PO DAILY [facility] Last Admin: 03/15/18 08:59 Dose: 300 mg Glucagon (Glucagon Inj) 1 mg OTHER PRN PRN PRN Reason: for Hypoglycemia Protocol Argatroban 250 mg/ Sodium (Chloride) 250 mls @ 7.56 mls/hr IV.CONT TITRATE PRN ; Protocol PRN Reason: Per Protocol Last Admin: 03/15/18 02:53 Dose: 1.5 mcg/kg/min, 5.67 mls/hr Magnesium Sulfate Inj 4 gm/ (Sodium Chloride) 100 mls @ 50 mls/hr IV.SIG UNSCH PRN PRN Reason: For Magnesium 0.9 - 1.1 mg/dL Magnesium Sulfate Inj 2 gm/ (Sodium Chloride) 100 mls @ 50 mls/hr IV.SIG UNSCH PRN PRN Reason: For Magnesium 1.2 - 1.6 mg/dL Potassium Chloride (Kcl 40 Meq Premix Inj) 40 meq in 100 mls @ 25 mls/hr IV.SIG Q2H PRN PRN Reason: For Potassium 2.8 - 3.2 mEq/L Potassium Chloride (Kcl 20 Meq Premix Inj) 20 meq in 100 mls @ 50 mls/hr IV.SIG Q2H PRN PRN Reason: For Potassium 3.3 - 3.5 mEq/L Potassium Chloride (Kcl 40 Meq Premix Inj) 40 meq in 100 mls @ 25 mls/hr IV.SIG UNSCH PRN PRN Reason: For Potassium 3.3 - 3.5 mEq/L Potassium Phosphate 30 mmol/ (Sodium Chloride) 260 mls @ 42 mls/hr IV.SIG UNSCH PRN PRN Reason: SEE LABEL COMMENTS Sodium Phosphate 30 mmol/ (Sodium Chloride) 260 mls @ 42 mls/hr IV.SIG UNSCH PRN PRN Reason: For Phosphorus < 2.5 mg/dL Potassium Chloride (Kcl 20 Meq Premix Inj) 20 meq in 100 mls @ 50 mls/hr IV.SIG Q2H PRN PRN Reason: For Potassium 2.8 - 3.2 mEq/L Sodium Chloride (Ns Inj) 250 mls @ 15 mls/hr IV.SIG ONCE DENAE Stop: 03/16/18 05:39 Insulin Aspart (Novolog Insulin Correctional Sugar Inj) 0 unit SQ Q6HR DENAE; Protocol Last Admin: 03/15/18 11:38 Dose: Not Given Lactulose (Lactulose Liq) 30 ml PO DAILY PRN PRN Reason: SEVERE CONSITIPATION Last Admin: 02/05/18 08:38 Dose: 30 ml Lansoprazole (Prevacid Solutab) 30 mg NG/OG DAILY [facility] Last Admin: 03/15/18 09:01 Dose: 30 mg Magnesium Oxide (Mag-Ox) 800 mg PO UNSCH PRN PRN Reason: For Magnesium 1.2 - 1.6 mg/dL Last Admin: 03/15/18 09:00 Dose: 800 mg Methylprednisolone Sodium Succinate (Solumedrol Inj) 20 mg IV.PUSH DAILY [facility] Last Admin: 03/15/18 09:01 Dose: 20 mg Morphine Sulfate (Morphine Inj) 4 mg IV.PUSH Q3H PRN PRN Reason: breakthrough pain Last Admin: 03/15/18 06:57 Dose: 4 mg Multivitamins (Theragran) 1 tab PO DAILY [facility] Last Admin: 03/15/18 08:59 Dose: 1 tab Potassium Bicarb/Potassium Chloride (K-Lyte Cl Eff) 50 meq PO UNSCH PRN PRN Reason: For Potassium 3.3 - 3.5 mEq/L Potassium Phosphate (K-Phos Original) 2,000 mg PO Q4H PRN PRN Reason: Phosphorus Less Than 2.5 mg/dL Last Admin: 03/15/18 12:53 Dose: 2,000 mg Potassium Phosphate (K-Phos Original) 2,000 mg PO UNSCH PRN PRN Reason: SEE LABEL COMMENTS Pregabalin (Lyrica) 150 mg PO BID [facility] Last Admin: 03/15/18 08:59 Dose: 150 mg Senna/Docusate Sodium (Linda-Colace) 1 tab PO BID [facility] Last Admin: 03/15/18 09:02 Dose: Not Given Sennosides (Senokot) 17.2 mg PO Q12H PRN PRN Reason: Moderate Constipation Sodium Chloride (Ns Flush) 2 ml IV.FLUSH BID [facility] Last Admin: 03/15/18 09:02 Dose: 2 ml Sodium Chloride (Ns Flush) 2 ml IV.FLUSH PRN PRN PRN Reason: FLUSH AFTER USING IV ACCESS Sterile Water (Free Water) 300 ml G-TUBE Q6HR [facility] Last Admin: 03/15/18 11:38 Dose: 300 ml Vancomycin HCl (Vancomycin Po) 500 mg G-TUBE Q6HR [facility] Last Admin: 03/15/18 11:37 Dose: 500 mg Whey (Beneprotein Powder) 1 packet G-TUBE TID DENAE Last Admin: 03/15/18 16:07 Dose: 1 packet Allergies Allergy/AdvReac Type Severity Reaction Status Date / Time No Known Allergies Allergy Verified 02/04/18 18:10 Home Medications Medication Instructions Recorded Confirmed Type ascorbic acid (vitamin C) [Vitamin See Label Instructions .ROUTE 01/22/18 History C] .COMPLEX duloxetine [Cymbalta] 90 mg PO DAILY 01/22/18 02/06/18 History ferrous sulfate [Iron (ferrous 1 tab PO DAILY 01/22/18 02/06/18 History sulfate)] hydrocodone-acetaminophen [Colden] 1 tab PO Q6H 01/22/18 02/06/18 History multivitamin 1 cap PO QAM 01/22/18 02/06/18 History pregabalin [Lyrica] 200 mg PO BID 01/22/18 02/06/18 History tamsulosin [Flomax] 0.4 mg PO DAILY 01/22/18 02/06/18 History warfarin [Coumadin] 6 mg PO DAILY 01/22/18 02/06/18 History Exam Vital signs: Vital Signs 03/14/18 17:30 03/14/18 17:45 03/14/18 18:00 Temperature Pulse Rate 87 96 H 84 Respiratory Rate 20 44 H Blood Pressure 92/58 L 89/55 L Pulse Oximetry 88 L 03/14/18 20:00 03/14/18 20:37 03/14/18 20:40 Temperature 98.6 F Pulse Rate 75 86 Respiratory Rate 18 18 22 Blood Pressure 89/55 L Pulse Oximetry 96 100 03/14/18 22:00 03/15/18 00:00 03/15/18 00:31 Temperature 98.9 F Pulse Rate 60 89 Respiratory Rate 20 25 H Blood Pressure 113/68 Pulse Oximetry 97 99 03/15/18 00:38 03/15/18 02:00 03/15/18 02:30 Temperature Pulse Rate 106 H Respiratory Rate 22 Blood Pressure Pulse Oximetry 100 03/15/18 02:44 03/15/18 03:30 03/15/18 03:45 Temperature Pulse Rate 91 H 96 H Respiratory Rate 25 H 32 H 32 H Blood Pressure 106/65 107/63 Pulse Oximetry 93 L 89 L 03/15/18 03:54 03/15/18 04:00 03/15/18 04:02 Temperature 98.7 F Pulse Rate 96 H 109 H Respiratory Rate 24 41 H 23 Blood Pressure 114/68 Pulse Oximetry 68 L 92 L 03/15/18 04:15 03/15/18 04:30 03/15/18 04:45 Temperature Pulse Rate 107 H 111 H 106 H Respiratory Rate 32 H 33 H 31 H Blood Pressure 109/66 116/63 112/59 L Pulse Oximetry 93 L 90 L 94 L 03/15/18 05:00 03/15/18 05:15 03/15/18 05:30 Temperature Pulse Rate 104 H 110 H 105 H Respiratory Rate 36 H 42 H 36 H Blood Pressure 108/61 108/73 103/65 Pulse Oximetry 99 84 L 96 03/15/18 05:45 03/15/18 06:00 03/15/18 06:15 Temperature Pulse Rate 106 H 109 H 109 H Respiratory Rate 39 H 39 H 55 H Blood Pressure 107/60 108/65 107/64 Pulse Oximetry 96 91 L 93 L 03/15/18 06:30 03/15/18 06:45 03/15/18 07:00 Temperature Pulse Rate 114 H 113 H 102 H Respiratory Rate 49 H 36 H 30 H Blood Pressure 111/71 111/66 99/63 L Pulse Oximetry 89 L 100 95 03/15/18 07:15 03/15/18 07:30 03/15/18 07:45 Temperature Pulse Rate 97 H 94 H 94 H Respiratory Rate 24 24 24 Blood Pressure 89/53 L 84/51 L 89/54 L Pulse Oximetry 91 L 91 L 92 L 03/15/18 08:00 03/15/18 08:15 03/15/18 08:22 Temperature 102.4 F H Pulse Rate 93 H 91 H 95 H Respiratory Rate 24 21 22 Blood Pressure 86/54 L 90/55 L Pulse Oximetry 93 L 93 L 03/15/18 08:30 03/15/18 08:45 03/15/18 09:00 Temperature Pulse Rate 90 90 95 H Respiratory Rate 23 20 22 Blood Pressure 87/51 L 89/54 L 93/59 L Pulse Oximetry 94 L 92 L 93 L 03/15/18 09:15 03/15/18 09:30 03/15/18 09:45 Temperature Pulse Rate 92 H 98 H 97 H Respiratory Rate 21 25 H 24 Blood Pressure 105/58 L 99/62 L 98/60 L Pulse Oximetry 93 L 88 L 94 L 03/15/18 10:00 03/15/18 10:15 03/15/18 10:30 Temperature Pulse Rate 94 H 98 H 94 H Respiratory Rate 26 H 24 23 Blood Pressure 103/62 99/57 L 92/55 L Pulse Oximetry 91 L 94 L 93 L 03/15/18 10:45 03/15/18 11:00 03/15/18 11:14 Temperature Pulse Rate 95 H 96 H Respiratory Rate 26 H 34 H 23 Blood Pressure 90/55 L 92/56 L Pulse Oximetry 93 L 92 L 92 L 03/15/18 11:15 03/15/18 11:30 03/15/18 11:45 Temperature Pulse Rate 96 H 94 H 103 H Respiratory Rate 24 22 27 H Blood Pressure 95/60 L 99/58 L 98/63 L Pulse Oximetry 92 L 92 L 94 L 03/15/18 12:00 03/15/18 12:15 03/15/18 12:30 Temperature 101.8 F H Pulse Rate 97 H 101 H 92 H Respiratory Rate 28 H 33 H 26 H Blood Pressure 95/61 L 98/62 L 97/57 L Pulse Oximetry 91 L 90 L 91 L 03/15/18 12:45 03/15/18 14:00 03/15/18 15:00 Temperature 98.6 F Pulse Rate 93 H 83 99 H Respiratory Rate 32 H 33 H Blood Pressure 95/61 L Pulse Oximetry 91 L 03/15/18 15:41 Temperature Pulse Rate Respiratory Rate 26 H Blood Pressure Pulse Oximetry 99 Intake & Output 03/14/18 03/15/18 03/15/18 18:59 06:59 18:59 Intake Total 1159 / 1159 1514 / 1514 Output Total 1670 / 1670 1999 Balance -511 / -511 -486 / -486 Weight 67.5 kg Intake: IV 250 / 250 Novastan Inj 250 MG In NS Inj 250 / 250 247.5 ML @ 2 MCG/KG/MIN 7.56 mls/hr IV.CONT TITRATE PRN Rx#: [id number] Tube Feeding 559 / 559 664 / 664 Tube Irrigant 600 / 600 600 / 600 Output: Stool 120 / 120 1000 / 1000 Urine Amount (Catheter) 1550 / 1550 1000 / 1000 Indwelling Urethral Catheter 1550 / 1550 1000 / 1000 Other: Date of Last Bowel Movement 03/14/18 03/14/18 03/15/18 Narrative: GENERAL: Ill-appearing cachectic older male patient, SKIN: Pale, warm and diaphoretic. HEAD: Normocephalic. EYES: No scleral icterus. No injection or drainage. NECK: Tracheostomy midline. No bleeding/oozing noted at tracheostomy site, erythema noted at base of collar. CARDIOVASCULAR: +S1/S2 without murmurs. RESPIRATORY: Bilateral rhonchi. +vent. GASTROINTESTINAL: Abdomen soft, non-tender, distended. Feeding tube EXTREMITIES: No cyanosis, or edema. MUSCULOSKELETAL: Generalized weakness, decreased muscle tone. NEUROLOGICAL: Alerts drowsy somnolent. Appears to follow motor requests by trying to protrude his tongue and show me 2 fingers of his right hand cachectic localized with the right side little bit of the left - Constitutional no acute distress Results - Labs CBC & Chem 7: 03/15/18 05:37 03/15/18 03:33 Labs: Laboratory Results - last 24 hr 03/14/18 03/15/18 03/15/18 17:28 01:06 03:33 WBC RBC Hgb Hct MCV MCH MCHC RDW Plt Count MPV Prelim Diff (Auto) Neut % (Auto) Lymph % (Auto) Grainger % (Auto) Eos % (Auto) Baso % (Auto) Neut # (Auto) Lymph # (Auto) Grainger # (Auto) Eos # (Auto) Baso # (Auto) WBC Differential Diff Scan Differential Comment Platelet Estimate Platelet Morphology APTT Sodium 143 Potassium 3.6 Chloride 109 H Carbon Dioxide 21.6 Anion Gap 12 BUN 26 H Creatinine 0.87 Estimated GFR 88 L POC Glucose 202 H 142 H Random Glucose 92 Calcium 7.5 L Phosphorus 2.3 L Magnesium 1.5 Total Bilirubin 0.6 AST 60 H ALT 33 Alkaline Phosphatase 76 Total Protein 6.0 L Albumin 1.7 L Urine Color Urine Clarity Urine pH Ur Specific Levant Urine Protein Urine Glucose (UA) Urine Ketones Urine Occult Blood Urine Nitrate Urine Bilirubin Urine Urobilinogen Ur Leukocyte Esterase Urine RBC Urine WBC Urine Bacteria Hyaline Casts Urine Mucus Urine Yeast Ur Yeast w Hyphae Micro UA Comment Ur Microscopic Review Urine Culture Comments Blood Type Antibody Screen MTS Gel Crossmatch 03/15/18 03/15/18 03/15/18 05:37 05:37 09:54 WBC 2.1 L RBC 2.37 L Hgb 7.7 L Hct 23.1 L MCV 97.4 MCH 32.5 MCHC 33.3 RDW 22.5 H Plt Count 97 L MPV 10.8 Prelim Diff (Auto) Slide review pending Neut % (Auto) 77.3 H Lymph % (Auto) 17.5 Grainger % (Auto) 4.9 Eos % (Auto) 0.1 Baso % (Auto) 0.2 Neut # (Auto) 1.6 L Lymph # (Auto) 0.4 L Grainger # (Auto) 0.1 Eos # (Auto) 0.0 Baso # (Auto) 0.0 WBC Differential . Diff Scan Auto diff confirmed Differential Comment . Platelet Estimate Low L Platelet Morphology Enlarged H APTT 66.8 H Sodium Potassium Chloride Carbon Dioxide Anion Gap BUN Creatinine Estimated GFR POC Glucose Random Glucose Calcium Phosphorus Magnesium Total Bilirubin AST ALT Alkaline Phosphatase Total Protein Albumin Urine Color Yellow Urine Clarity Turbid H Urine pH 5.0 Ur Specific Levant 1.008 Urine Protein 30 H Urine Glucose (UA) Negative Urine Ketones Negative Urine Occult Blood Small H Urine Nitrate Negative Urine Bilirubin Negative Urine Urobilinogen Less than 2 Ur Leukocyte Esterase Negative Urine RBC Urine WBC 17 H Urine Bacteria Occasional H Hyaline Casts 8 Urine Mucus Few H Urine Yeast Many H Ur Yeast w Hyphae Occasional H Micro UA Comment Culture indicated Ur Microscopic Review Not Reportable Urine Culture Comments Culture indicated Blood Type Antibody Screen MTS Gel Crossmatch 03/15/18 03/15/18 11:37 16:10 WBC RBC Hgb Hct MCV MCH MCHC RDW Plt Count MPV Prelim Diff (Auto) Neut % (Auto) Lymph % (Auto) Grainger % (Auto) Eos % (Auto) Baso % (Auto) Neut # (Auto) Lymph # (Auto) Grainger # (Auto) Eos # (Auto) Baso # (Auto) WBC Differential Diff Scan Differential Comment Platelet Estimate Platelet Morphology APTT Sodium Potassium Chloride Carbon Dioxide Anion Gap BUN Creatinine Estimated GFR POC Glucose 95 Random Glucose Calcium Phosphorus Magnesium Total Bilirubin AST ALT Alkaline Phosphatase Total Protein Albumin Urine Color Urine Clarity Urine pH Ur Specific Levant Urine Protein Urine Glucose (UA) Urine Ketones Urine Occult Blood Urine Nitrate Urine Bilirubin Urine Urobilinogen Ur Leukocyte Esterase Urine RBC Urine WBC Urine Bacteria Hyaline Casts Urine Mucus Urine Yeast Ur Yeast w Hyphae Micro UA Comment Ur Microscopic Review Urine Culture Comments Blood Type O Positive Antibody Screen Positive H MTS Gel Crossmatch See Detail Review/Management - Diagnosis (1) Acute embolic stroke Code(s): I63.9 - Cerebral infarction, unspecified Status: Acute Current Visit: Yes (2) Cardiogenic shock Code(s): R57.0 - Cardiogenic shock Status: Acute Current Visit: Yes (3) Ventricular fibrillation Code(s): I49.01 - Ventricular fibrillation Status: Acute Current Visit: Yes (4) Atrial fibrillation Code(s): I48.91 - Unspecified atrial fibrillation Status: Acute Current Visit: Yes (5) Thrombocytopenia Code(s): D69.6 - Thrombocytopenia, unspecified Status: Acute Current Visit: Yes - Review/Management Plan: Patient does appear to follow, is cachectic ill-appearing due to multiple comorbidities. 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 Thrombocytopenia,, infections Recommendations Is able to follow simple requests but is very weak and as previous left-sided weakness. 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
--- NOTE | 2018-03-15 19:26 | P.PNID ---
Subjective Remarks: New fever with T max of 102.8 in 24 hrs less diarrhea fever again Urine abnormal, with hematuria, + pyuria clx + following commands Antibiotics: oral vanco Lines: PIV Past Medical History: Reviewed Allergies/Adverse Reactions: Allergies No Known Allergies Allergy (Verified 02/04/18 18:10) Objective Vital Signs 03/14/18 20:00 03/14/18 20:37 03/14/18 20:40 Temperature 98.6 F Pulse Rate 75 86 Respiratory Rate 18 18 22 Blood Pressure 89/55 L Pulse Oximetry 96 100 03/14/18 22:00 03/15/18 00:00 03/15/18 00:31 Temperature 98.9 F Pulse Rate 60 89 Respiratory Rate 20 25 H Blood Pressure 113/68 Pulse Oximetry 97 99 03/15/18 00:38 03/15/18 02:00 03/15/18 02:30 Temperature Pulse Rate 106 H Respiratory Rate 22 Blood Pressure Pulse Oximetry 100 03/15/18 02:44 03/15/18 03:30 03/15/18 03:45 Temperature Pulse Rate 91 H 96 H Respiratory Rate 25 H 32 H 32 H Blood Pressure 106/65 107/63 Pulse Oximetry 93 L 89 L 03/15/18 03:54 03/15/18 04:00 03/15/18 04:02 Temperature 98.7 F Pulse Rate 96 H 109 H Respiratory Rate 24 41 H 23 Blood Pressure 114/68 Pulse Oximetry 68 L 92 L 03/15/18 04:15 03/15/18 04:30 03/15/18 04:45 Temperature Pulse Rate 107 H 111 H 106 H Respiratory Rate 32 H 33 H 31 H Blood Pressure 109/66 116/63 112/59 L Pulse Oximetry 93 L 90 L 94 L 03/15/18 05:00 03/15/18 05:15 03/15/18 05:30 Temperature Pulse Rate 104 H 110 H 105 H Respiratory Rate 36 H 42 H 36 H Blood Pressure 108/61 108/73 103/65 Pulse Oximetry 99 84 L 96 03/15/18 05:45 03/15/18 06:00 03/15/18 06:15 Temperature Pulse Rate 106 H 109 H 109 H Respiratory Rate 39 H 39 H 55 H Blood Pressure 107/60 108/65 107/64 Pulse Oximetry 96 91 L 93 L 03/15/18 06:30 03/15/18 06:45 03/15/18 07:00 Temperature Pulse Rate 114 H 113 H 102 H Respiratory Rate 49 H 36 H 30 H Blood Pressure 111/71 111/66 99/63 L Pulse Oximetry 89 L 100 95 03/15/18 07:15 03/15/18 07:30 03/15/18 07:45 Temperature Pulse Rate 97 H 94 H 94 H Respiratory Rate 24 24 24 Blood Pressure 89/53 L 84/51 L 89/54 L Pulse Oximetry 91 L 91 L 92 L 03/15/18 08:00 03/15/18 08:15 03/15/18 08:22 Temperature 102.4 F H Pulse Rate 93 H 91 H 95 H Respiratory Rate 24 21 22 Blood Pressure 86/54 L 90/55 L Pulse Oximetry 93 L 93 L 03/15/18 08:30 03/15/18 08:45 03/15/18 09:00 Temperature Pulse Rate 90 90 95 H Respiratory Rate 23 20 22 Blood Pressure 87/51 L 89/54 L 93/59 L Pulse Oximetry 94 L 92 L 93 L 03/15/18 09:15 03/15/18 09:30 03/15/18 09:45 Temperature Pulse Rate 92 H 98 H 97 H Respiratory Rate 21 25 H 24 Blood Pressure 105/58 L 99/62 L 98/60 L Pulse Oximetry 93 L 88 L 94 L 03/15/18 10:00 03/15/18 10:15 03/15/18 10:30 Temperature Pulse Rate 94 H 98 H 94 H Respiratory Rate 26 H 24 23 Blood Pressure 103/62 99/57 L 92/55 L Pulse Oximetry 91 L 94 L 93 L 03/15/18 10:45 03/15/18 11:00 03/15/18 11:14 Temperature Pulse Rate 95 H 96 H Respiratory Rate 26 H 34 H 23 Blood Pressure 90/55 L 92/56 L Pulse Oximetry 93 L 92 L 92 L 03/15/18 11:15 03/15/18 11:30 03/15/18 11:45 Temperature Pulse Rate 96 H 94 H 103 H Respiratory Rate 24 22 27 H Blood Pressure 95/60 L 99/58 L 98/63 L Pulse Oximetry 92 L 92 L 94 L 03/15/18 12:00 03/15/18 12:15 03/15/18 12:30 Temperature 101.8 F H Pulse Rate 97 H 101 H 92 H Respiratory Rate 28 H 33 H 26 H Blood Pressure 95/61 L 98/62 L 97/57 L Pulse Oximetry 91 L 90 L 91 L 03/15/18 12:45 03/15/18 13:00 03/15/18 13:15 Temperature 98.6 F Pulse Rate 93 H 79 91 H Respiratory Rate 32 H 23 38 H Blood Pressure 95/61 L 92/59 L 94/61 L Pulse Oximetry 91 L 90 L 90 L 03/15/18 13:30 03/15/18 13:45 03/15/18 14:00 Temperature Pulse Rate 92 H 92 H 83 Respiratory Rate 33 H 23 25 H Blood Pressure 91/59 L 85/59 L 84/56 L Pulse Oximetry 89 L 94 L 92 L 03/15/18 14:15 03/15/18 14:30 03/15/18 14:46 Temperature Pulse Rate 91 H 93 H 90 Respiratory Rate 27 H 25 H 26 H Blood Pressure 90/58 L 95/62 L 95/57 L Pulse Oximetry 91 L 82 L 92 L 03/15/18 15:00 03/15/18 15:15 03/15/18 15:30 Temperature Pulse Rate 91 H 90 93 H Respiratory Rate 25 H 26 H 33 H Blood Pressure 99/61 L 98/63 L 99/66 L Pulse Oximetry 78 L 86 L 81 L 03/15/18 15:41 03/15/18 15:45 03/15/18 16:00 Temperature 99 F Pulse Rate 88 82 Respiratory Rate 26 H 24 24 Blood Pressure 99/67 L 92/64 L Pulse Oximetry 99 98 73 L 03/15/18 16:15 03/15/18 16:30 03/15/18 16:45 Temperature Pulse Rate 80 82 83 Respiratory Rate 24 21 22 Blood Pressure 81/52 L 85/56 L 86/53 L Pulse Oximetry 100 96 88 L 03/15/18 17:00 03/15/18 17:15 03/15/18 17:30 Temperature Pulse Rate 79 90 77 Respiratory Rate 22 24 22 Blood Pressure 88/56 L 98/65 L 82/52 L Pulse Oximetry 84 L 73 L 76 L 03/15/18 17:45 03/15/18 18:00 03/15/18 18:01 Temperature Pulse Rate 84 92 H 92 H Respiratory Rate 22 38 H 31 H Blood Pressure 89/59 L 109/62 Pulse Oximetry 66 L 85 L 82 L 03/15/18 18:15 Temperature Pulse Rate 88 Respiratory Rate 24 Blood Pressure 99/56 L Pulse Oximetry 100 Intake & Output 03/15/18 03/15/18 03/16/18 06:59 18:59 06:59 Intake Total 1514 / 1514 1208 / 1208 Output Total 1999 1760 / 1760 Balance -486 / -486 -552 / -552 Weight 67.5 kg Intake: IV 250 / 250 Novastan Inj 250 MG In NS Inj 250 / 250 247.5 ML @ 2 MCG/KG/MIN 7.56 mls/hr IV.CONT TITRATE PRN Rx#: [id number] Tube Feeding 664 / 664 428 / 428 Tube Irrigant 600 / 600 180 / 180 Water Bolus Amount 600 / 600 Output: Stool 1000 / 1000 260 / 260 Urine Amount (Catheter) 1000 / 1000 1500 / 1500 Indwelling Urethral Catheter 1000 / 1000 1500 / 1500 Other: Date of Last Bowel Movement 03/14/18 03/15/18 03/15/18 08:50 Sputum - Tracheal Aspirate Gram Stain - Final 03/15/18 08:50 Sputum - Tracheal Aspirate Sputum Culture - Pending 03/15/18 09:54 Catheterized Urine Urine Culture - Pending 03/15/18 10:25 Blood - Peripheral Aerobic Blood Culture - Pending 03/15/18 10:25 Blood - Peripheral Anaerobic Blood Culture - Pending 03/15/18 10:30 Blood - Peripheral Aerobic Blood Culture - Pending 03/15/18 10:30 Blood - Peripheral Anaerobic Blood Culture - Pending Lab - Hematology Results 03/14/18 03/15/18 05:30 05:37 WBC 2.6 L 2.1 L RBC 2.52 L 2.37 L Hgb 8.1 L 7.7 L Hct 24.9 L 23.1 L MCV 98.6 97.4 MCH 32.2 32.5 MCHC 32.6 33.3 RDW 22.9 H 22.5 H Plt Count 75 L D 97 L MPV 10.6 10.8 Prelim Diff (Auto) Slide review pending Slide review pending Neut % (Auto) 79.1 H 77.3 H Lymph % (Auto) 14.8 17.5 [place] % (Auto) 5.4 4.9 Eos % (Auto) 0.2 0.1 Baso % (Auto) 0.5 0.2 Neut # (Auto) 2.0 1.6 L Lymph # (Auto) 0.4 L 0.4 L [place] # (Auto) 0.1 0.1 Eos # (Auto) 0.0 0.0 Baso # (Auto) 0.0 0.0 WBC Differential . . Diff Scan Auto diff confirmed Auto diff confirmed Differential Comment . . Platelet Estimate Low L Low L Platelet Morphology Enlarged H Enlarged H Lab - Chemistry Results 03/14/18 03/14/18 03/14/18 00:26 05:30 05:42 Sodium 145 Potassium 3.9 Chloride 112 H Carbon Dioxide 21.7 Anion Gap 11 BUN 23 H Creatinine 0.85 Estimated GFR Greater than 89 POC Glucose 134 H 129 H Random Glucose 111 H Calcium 7.5 L Phosphorus 2.4 L Magnesium 1.8 Total Bilirubin 0.4 AST 50 H ALT 19 Alkaline Phosphatase 52 Total Protein 5.6 L Albumin 1.6 L 03/14/18 03/14/18 03/15/18 12:37 17:28 01:06 Sodium Potassium Chloride Carbon Dioxide Anion Gap BUN Creatinine Estimated GFR POC Glucose 199 H 202 H 142 H Random Glucose Calcium Phosphorus Magnesium Total Bilirubin AST ALT Alkaline Phosphatase Total Protein Albumin 03/15/18 03/15/18 03/15/18 03:33 11:37 18:11 Sodium 143 Potassium 3.6 Chloride 109 H Carbon Dioxide 21.6 Anion Gap 12 BUN 26 H Creatinine 0.87 Estimated GFR 88 L POC Glucose 95 163 H Random Glucose 92 Calcium 7.5 L Phosphorus 2.3 L Magnesium 1.5 Total Bilirubin 0.6 AST 60 H ALT 33 Alkaline Phosphatase 76 Total Protein 6.0 L Albumin 1.7 L Imaging: ITS Impressions Abdomen/Bladder Ultrasound 02/05/18 00:00 CONCLUSION: 1. No evidence of hydronephrosis. 2. The echogenicity of the kidneys is equal to that of the liver which can be seen with medical renal disease. 3. Simple cyst in right kidney. 4. Suboptimal visualization of the left kidney. 5. Small amount of free fluid along the spleen. This could represent an adjacent pleural effusion. Head CT 02/15/18 12:23 CONCLUSION: 1. Negative CT Head non contrast. . Head MRI 02/16/18 08:28 CONCLUSION: 1. New focus of restricted diffusion high along the right cerebral vertex measuring 8 mm consistent with a new small focal acute infarction. 2. There is a new 5 mm area restricted diffusion high along the left cerebral vertex consistent with a new small focal acute infarction. 3. 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 This area is stable compared to the prior examination. 4. Stable bilateral cortical atrophy and mild chronic white matter changes. 5. Chronic bilateral mastoiditis. Chest CT 02/18/18 00:00 CONCLUSION: 1. Increasing basilar and dependent consolidation in both lungs most characteristic of pneumonia or aspiration. 2. Near complete resolution of previous small effusions. 3. Osteopenia with stable compression deformities in the spine. 4. Previous sternotomy with aortic valve replacement. 5. Right-sided central line, ET tube and NG tube in good position. Abdomen X-Ray 03/04/18 00:00 CONCLUSION: Paucity of bowel gas in the abdomen. Nondilated small air-filled segment of the ascending colon seen. Chest X-Ray 03/14/18 07:11 CONCLUSION: 1. Slightly improved aeration of the right mid to lower lung zones with persistent diffuse bilateral, right greater than left, interstitial and airspace opacities with associated small bilateral pleural effusions. Physical Exam: GENERAL: cachectic, awake, did not follow, on T-piece, not in distress SKIN: Cool and dry. No generalized rash HEAD: Atraumatic. Normocephalic. EYES: Pupils equal and round. No scleral icterus. No injection or drainage. ENT: No nasal bleeding or discharge. Mucous membranes dry. NECK: Trach in place site [place] CARDIOVASCULAR: Regular rate and rhythm. + diastolic blowing murmur on aortic valve point 1-2/6 today RESPIRATORY: Rales at both bases, equal breath sounds GASTROINTESTINAL: Abdomen moderately distended and tender . Liquid brown stool in the dignishield bag : roberson in place with good amount of urine MUSCULOSKELETAL: Extremities without clubbing, cyanosis, or edema. No obvious deformities. NEUROLOGICAL: eyes closed not following commands PSYCHIATRIC:unable to assess LINE: No evidence of infection Assessment and Plan - Plan Impression Sepsis C.diff ? VAP ; PSAE, KLEb, S/P Rx Acute renal insufficiency, improving slowly GFR CHF EF < 20 % S/P [place] Respiratory failure, S/P trach - doing T-piece traisl Leukopenia is getting worse perssirstent diarrhea - repeat c.diff negative ? postinfectious diarrhea New fever ? UTI Recommendation Ancef for MSSA sepsis, was stopped after completed 6 weeks from 1st neg blood C/S (01/26) cont po vanco, will continue until after he completes his Ancef Rx Restart broad spectrum abx (cefepime, vancomycin a) and antifungals P blood, urtine, sputum clx CXR in am pat RN
[2018-03-15] MEDS ORDERED: Vancomycin Consult Pharmacy OTHER PRN (19:27)
[2018-03-15] MEDS ORDERED: HYDROmorphone PF Inj 2 MG/ML Vial IV.PUSH PRN (21:46)
[2018-03-15] MEDS ORDERED: Vancomycin Inj 1,250 MG in Sodium Chlor 0.9% Inj 250 ML IV.SIG SCH (22:00)
[2018-03-15 23:39] LABS: ABG Base Excess -3.7 mmol/L (-2-2); ABG PCO2 27 mmHg (38-42); ABG PO2 44 mmHG (61-120)
[2018-03-16] MEDS ORDERED: fentaNYL 10 mcg/mL Premix Drip 2,500 MCG/250 ML BAG IV.SIG PRN (00:04)
[2018-03-16] MEDS: Micafungin Inj 150 MG in Sodium Chlor 0.9% Inj 100 ML IV.SIG SCH ×2 (00:07→23:03)
[2018-03-16] MEDS: Insulin NovoLOG Aspart Correctional Sugar Inj SQ SCH ×4 (01:12→18:41)
[2018-03-16] MEDS: Oral Hygiene Kit OROPHARYNG SCH ×4 (01:13→18:41)
[2018-03-16 01:22] LABS: ABG Base Excess -4.1 mmol/L (-2-2); ABG PCO2 27 mmHg (38-42); ABG PO2 58 mmHG (61-120)
[2018-03-16 04:10] LABS: Baso % (Auto) 0.2 % (0.0-2.0); Eos % (Auto) 0.2 % (0.0-4.0); Hematocrit 33.3 % (39.0-51.0); Lymph # (Auto) 0.3 th/mm3 (1.0-4.8); Lymph % (Auto) 17.5 % (9.0-44.0); Mean Corpuscular Hemoglobin 31.1 pg (27.0-34.0); Mean Corpuscular Volume 94.4 fL (80.0-100.0); Mean Platelet Volume 11.2 fL (7.0-11.0); Mono # (Auto) 0.1 th/mm3 (0.0-0.9); Mono % (Auto) 5.9 % (0.0-8.0); Neut # (Auto) 1.5 th/mm3 (1.8-7.7); Neut % (Auto) 76.2 % (16.0-70.0); Platelet Count 104 th/mm3 (150-450); Red Blood Count 3.53 mil/mm3 (4.50-5.90); Red Cell Distribution Width 22.3 % (11.6-17.2)
[2018-03-16 04:30] LABS: Albumin 1.6 g/dL (3.4-5.0); Calcium 7.2 mg/dL (8.5-10.1); Carbon Dioxide 21.5 meq/L (21.0-32.0); Magnesium 1.6 mg/dL (1.5-2.5); Potassium 3.6 meq/L (3.5-5.1); Total Protein 5.9 g/dL (6.4-8.2)
--- NOTE | 2018-03-16 04:33 | XR ---
EXAM DATE: 03/16/2018 4:27 AM EDT AGE/SEX: 62 years / Male INDICATIONS: Shortness of breath, possible pulmonary disease. CLINICAL DATA: This is the patient's subsequent encounter. Patient reports that signs and symptoms h ave been present for 1 month and indicates a pain score of Nonresponsive. MEDICAL/SURGICAL HISTORY: Stroke. Inguinal hernia repair. Aortic valve replacement. COMPARISON: [facility] – [place], CHEST 1V SINGLE AP, 03/14/2018. . FINDINGS: Bilateral perihilar and basilar as well as right upper lobe consolidation again noted and both sides are modestly improved in the interim. There appears to be resolving pleural effusions as well, now ve ry small. No pneumothorax. Heart size stable, within normal limits. Median sternotomy and valve replacement changes are again no adelaida. Tracheostomy tube present. There is a nasogastric tube with tip in the stomach, sidehole at the GE junction, new. CONCLUSION: Bilateral airspace opacities are modestly improved. Please see above. New nasogastric tube with tip in the upper stomach sidehole near the GE junction. Otherwise no significant change. Electronically signed by: Regan Hill MD 03/16/2018 4:32 AM EDT
[2018-03-16 05:36] LABS: ABG Base Excess -5.8 mmol/L (-2-2); ABG PCO2 28 mmHg (38-42); ABG PO2 84 mmHG (61-120)
[2018-03-16 07:56] LABS: Lymphocytes 13 % (9-44); Monocytes 4 % (0-8); Tallied Nucleated RBC 2 (0-0)
[2018-03-16 07:57] LABS: Toxic Vacuolation Present
[2018-03-16 08:18] LABS: Prothrombin Time 40.1 sec (9.8-11.6)
[2018-03-16 08:19] LABS: Activated Partial Thrombo Time 99.7 sec (24.3-30.1)
[2018-03-16] MEDS ORDERED: Midazolam 50 MG/50 ML Inj 50 MG/50 ML BAG IV.CONT PRN (08:58)
[2018-03-16] MEDS: MethylPREDNISolone Sod Succinate Inj 40 MG/ML Vial IV.PUSH SCH (09:17)
[2018-03-16] MEDS: Pregabalin 75 MG Capsule PO SCH ×2 (09:17→20:34)
[2018-03-16] MEDS: Ferrrous Sulfate 300 MG/5 ML UDC PO SCH (09:17)
[2018-03-16] MEDS: Senna/Docusate Sodium 8.6/50 MG Tablet PO SCH ×2 (09:18→20:21)
[2018-03-16] MEDS: Amiodarone 200 MG Tablet G-TUBE SCH ×2 (09:18→20:20)
[2018-03-16] MEDS: Ascorbic Acid 500 MG Tablet NG/OG SCH (09:18)
[2018-03-16] MEDS: Chlorhexidine 0.12% Oral Kit 15 ML UDC OROPHARYNG SCH ×2 (09:19→20:20)
[2018-03-16] MEDS ORDERED: Sodium Chlor 0.9% Inj 500 ML IV.SIG SCH (10:00)
--- NOTE | 2018-03-16 11:05 | P.PNID ---
Subjective Remarks: pt is much worse today back byphasic vent hypotensive febrile not tolerating tube feeds unresponsive Antibiotics: vanco IV cefepime micafungin oral vanco Lines: PIV Past Medical History: Reviewed Allergies/Adverse Reactions: Allergies No Known Allergies Allergy (Verified 02/04/18 18:10) Objective Vital Signs 03/15/18 11:00 03/15/18 11:14 03/15/18 11:15 Temperature Pulse Rate 96 H 96 H Respiratory Rate 34 H 23 24 Blood Pressure 92/56 L 95/60 L Pulse Oximetry 92 L 92 L 92 L 03/15/18 11:30 03/15/18 11:45 03/15/18 12:00 Temperature 101.8 F H Pulse Rate 94 H 103 H 97 H Respiratory Rate 22 27 H 28 H Blood Pressure 99/58 L 98/63 L 95/61 L Pulse Oximetry 92 L 94 L 91 L 03/15/18 12:15 03/15/18 12:30 03/15/18 12:45 Temperature 98.6 F Pulse Rate 101 H 92 H 93 H Respiratory Rate 33 H 26 H 32 H Blood Pressure 98/62 L 97/57 L 95/61 L Pulse Oximetry 90 L 91 L 91 L 03/15/18 13:00 03/15/18 13:15 03/15/18 13:30 Temperature Pulse Rate 79 91 H 92 H Respiratory Rate 23 38 H 33 H Blood Pressure 92/59 L 94/61 L 91/59 L Pulse Oximetry 90 L 90 L 89 L 03/15/18 13:45 03/15/18 14:00 03/15/18 14:15 Temperature Pulse Rate 92 H 83 91 H Respiratory Rate 23 25 H 27 H Blood Pressure 85/59 L 84/56 L 90/58 L Pulse Oximetry 94 L 92 L 91 L 03/15/18 14:30 03/15/18 14:46 03/15/18 15:00 Temperature Pulse Rate 93 H 90 91 H Respiratory Rate 25 H 26 H 25 H Blood Pressure 95/62 L 95/57 L 99/61 L Pulse Oximetry 82 L 92 L 78 L 03/15/18 15:15 03/15/18 15:30 03/15/18 15:41 Temperature Pulse Rate 90 93 H Respiratory Rate 26 H 33 H 26 H Blood Pressure 98/63 L 99/66 L Pulse Oximetry 86 L 81 L 99 03/15/18 15:45 03/15/18 16:00 03/15/18 16:15 Temperature 99 F Pulse Rate 88 82 80 Respiratory Rate 24 24 24 Blood Pressure 99/67 L 92/64 L 81/52 L Pulse Oximetry 98 73 L 100 03/15/18 16:30 03/15/18 16:45 03/15/18 17:00 Temperature Pulse Rate 82 83 79 Respiratory Rate 21 22 22 Blood Pressure 85/56 L 86/53 L 88/56 L Pulse Oximetry 96 88 L 84 L 03/15/18 17:15 03/15/18 17:30 03/15/18 17:45 Temperature Pulse Rate 90 77 84 Respiratory Rate 24 22 22 Blood Pressure 98/65 L 82/52 L 89/59 L Pulse Oximetry 73 L 76 L 66 L 03/15/18 18:00 03/15/18 18:01 03/15/18 18:15 Temperature Pulse Rate 92 H 92 H 88 Respiratory Rate 38 H 31 H 24 Blood Pressure 109/62 99/56 L Pulse Oximetry 85 L 82 L 100 03/15/18 20:00 03/15/18 20:17 03/15/18 20:45 Temperature 99 F Pulse Rate 90 104 H Respiratory Rate 30 H 31 H 35 H Blood Pressure 110/61 Pulse Oximetry 100 97 03/15/18 21:38 03/15/18 21:43 03/15/18 22:00 Temperature 99.7 F H Pulse Rate 97 H 99 H Respiratory Rate 35 H 36 H Blood Pressure 121/62 Pulse Oximetry 977 H 03/15/18 22:40 03/15/18 23:49 03/15/18 23:55 Temperature Pulse Rate 98 H Respiratory Rate 35 H 40 H 36 H Blood Pressure Pulse Oximetry 75 L 90 L 03/16/18 00:00 03/16/18 01:15 03/16/18 02:00 Temperature 98.7 F Pulse Rate 101 H 96 H Respiratory Rate 30 H 27 H Blood Pressure 133/77 Pulse Oximetry 100 03/16/18 03:55 03/16/18 04:00 03/16/18 04:37 Temperature 99.1 F Pulse Rate 102 H 111 H Respiratory Rate 50 H 29 H 36 H Blood Pressure 101/63 Pulse Oximetry 100 96 03/16/18 06:00 Temperature Pulse Rate 109 H Respiratory Rate Blood Pressure Pulse Oximetry Intake & Output 03/15/18 03/16/18 03/16/18 18:59 06:59 18:59 Intake Total 1208 / 1208 2042.5 / 2042.5 Output Total 1760 / 1760 800 / 800 Balance -552 / -552 1242.5 / 1242.5 Weight 69.5 kg Intake: IV 562.5 / 562.5 Maxipime Inj 2,000 MG In NS Inj 200 / 200 100 ML @ 200 mls/hr IV.SIG Q8H ADRIEN Rx#:[id number] Mycamine Inj 150 MG In NS Inj 100 / 100 100 ML @ 100 mls/hr IV.SIG Q24H ADRIEN Rx#:[id number] Vancomycin Inj 1,250 MG In NS 262.5 / 262.5 Inj 250 ML @ 250 mls/hr IV.SIG Q24H ADRIEN Rx#:[id number] Tube Feeding 428 / 428 500 / 500 Tube Irrigant 180 / 180 180 / 180 Water Bolus Amount 600 / 600 400 / 400 Intake (Blood Product) Amt 400 / 400 Rbc As-3 Leukoreduced Unit 400 / 400 [id number] Output: Stool 260 / 260 500 / 500 Urine Amount (Catheter) 1500 / 1500 300 / 300 Indwelling Urethral Catheter 1500 / 1500 300 / 300 Other: Date of Last Bowel Movement 03/15/18 03/15/18 03/15/18 08:50 Sputum - Tracheal Aspirate Gram Stain - Final 03/15/18 08:50 Sputum - Tracheal Aspirate Sputum Culture - Pending 03/15/18 09:54 Catheterized Urine Urine Culture - Pending 03/15/18 10:25 Blood - Peripheral Aerobic Blood Culture - Pending 03/15/18 10:25 Blood - Peripheral Anaerobic Blood Culture - Pending 03/15/18 10:30 Blood - Peripheral Aerobic Blood Culture - Pending 03/15/18 10:30 Blood - Peripheral Anaerobic Blood Culture - Pending Lab - Hematology Results 03/15/18 03/16/18 05:37 03:42 WBC 2.1 L 2.0 L RBC 2.37 L 3.53 L Hgb 7.7 L 11.0 L D Hct 23.1 L 33.3 L MCV 97.4 94.4 MCH 32.5 31.1 MCHC 33.3 33.0 RDW 22.5 H 22.3 H Plt Count 97 L 104 L MPV 10.8 11.2 H Prelim Diff (Auto) Slide review pending Slide review pending Neut % (Auto) 77.3 H 76.2 H Lymph % (Auto) 17.5 17.5 [place] % (Auto) 4.9 5.9 Eos % (Auto) 0.1 0.2 Baso % (Auto) 0.2 0.2 Neut # (Auto) 1.6 L 1.5 L Lymph # (Auto) 0.4 L 0.3 L [place] # (Auto) 0.1 0.1 Eos # (Auto) 0.0 0.0 Baso # (Auto) 0.0 0.0 WBC Differential . Manual diff final Diff Scan Auto diff confirmed Seg Neuts % (Manual) 52 Band Neuts % (Manual) 31 H Lymphocytes % (Manual) 13 Monocytes % (Manual) 4 Abs Neuts (Manual) 1.7 L Nucleated RBCs/100 WBC 2 H Differential Comment . . Toxic Vacuolation Present H Platelet Estimate Low L Low L Platelet Morphology Enlarged H Enlarged H Lab - Chemistry Results 03/14/18 03/14/18 03/15/18 12:37 17:28 01:06 Sodium Potassium Chloride Carbon Dioxide Anion Gap BUN Creatinine Estimated GFR POC Glucose 199 H 202 H 142 H Random Glucose Calcium Prot Corrected Calcium Phosphorus Magnesium Total Bilirubin AST ALT Alkaline Phosphatase Ammonia Total Protein Albumin 03/15/18 03/15/18 03/15/18 03:33 11:37 18:11 Sodium 143 Potassium 3.6 Chloride 109 H Carbon Dioxide 21.6 Anion Gap 12 BUN 26 H Creatinine 0.87 Estimated GFR 88 L POC Glucose 95 163 H Random Glucose 92 Calcium 7.5 L Prot Corrected Calcium Phosphorus 2.3 L Magnesium 1.5 Total Bilirubin 0.6 AST 60 H ALT 33 Alkaline Phosphatase 76 Ammonia Total Protein 6.0 L Albumin 1.7 L 03/16/18 03/16/18 03/16/18 00:32 03:42 03:42 Sodium 143 Potassium 3.6 Chloride 108 H Carbon Dioxide 21.5 Anion Gap 14 BUN 29 H Creatinine 0.94 Estimated GFR 81 L POC Glucose 114 H Random Glucose 96 Calcium 7.2 L* Prot Corrected Calcium 7.8 L Phosphorus 3.0 Magnesium 1.6 Total Bilirubin 0.8 AST 66 H ALT 40 Alkaline Phosphatase 68 Ammonia 14 Total Protein 5.9 L Albumin 1.6 L Imaging: ITS Impressions Abdomen/Bladder Ultrasound 02/05/18 00:00 CONCLUSION: 1. No evidence of hydronephrosis. 2. The echogenicity of the kidneys is equal to that of the liver which can be seen with medical renal disease. 3. Simple cyst in right kidney. 4. Suboptimal visualization of the left kidney. 5. Small amount of free fluid along the spleen. This could represent an adjacent pleural effusion. Head CT 02/15/18 12:23 CONCLUSION: 1. Negative CT Head non contrast. . Head MRI 02/16/18 08:28 CONCLUSION: 1. New focus of restricted diffusion high along the right cerebral vertex measuring 8 mm consistent with a new small focal acute infarction. 2. There is a new 5 mm area restricted diffusion high along the left cerebral vertex consistent with a new small focal acute infarction. 3. 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 This area is stable compared to the prior examination. 4. Stable bilateral cortical atrophy and mild chronic white matter changes. 5. Chronic bilateral mastoiditis. Chest CT 02/18/18 00:00 CONCLUSION: 1. Increasing basilar and dependent consolidation in both lungs most characteristic of pneumonia or aspiration. 2. Near complete resolution of previous small effusions. 3. Osteopenia with stable compression deformities in the spine. 4. Previous sternotomy with aortic valve replacement. 5. Right-sided central line, ET tube and NG tube in good position. Abdomen X-Ray 03/04/18 00:00 CONCLUSION: Paucity of bowel gas in the abdomen. Nondilated small air-filled segment of the ascending colon seen. Chest X-Ray 03/16/18 00:00 CONCLUSION: Bilateral airspace opacities are modestly improved. Please see above. New nasogastric tube with tip in the upper stomach sidehole near the GE junction. Otherwise no significant change. Physical Exam: GENERAL: cachectic, awake, did not follow, on vent unresponsive SKIN: Cool and dry. No generalized rash HEAD: Atraumatic. Normocephalic. EYES: Pupils equal and round. No scleral icterus. No injection or drainage. ENT: No nasal bleeding or discharge. Mucous membranes dry. NECK: Trach in place site [place] CARDIOVASCULAR: Regular rate and rhythm. + diastolic blowing murmur on aortic valve point 1-2/6 today RESPIRATORY: Rales at both bases, equal breath sounds GASTROINTESTINAL: Abdomen markedly distended, tympanic not reactive to papation . Liquid brown stool in the dignishield bag : roberson in place with good amount of urine MUSCULOSKELETAL: Extremities without clubbing, + profound cyanosis, mottling up to thighs No edema. No obvious deformities. NEUROLOGICAL: eyes closed unresponsive not following commands PSYCHIATRIC:unable to assess LINE: No evidence of infection Assessment and Plan - Plan Impression Sepsis C.diff ? VAP ; PSAE, KLEb, S/P Rx Acute renal insufficiency, improving slowly GFR CHF EF < 20 % S/P [place] Respiratory failure, S/P trach - doing T-piece traisl Leukopenia is getting worse, + bandemia perssirstent diarrhea - repeat c.diff negative I think pt is having another sepsis ? Intraasbdominal sepsis Pt is critical annd unstable, liekly septic Recommendation CT abd/pel when feasible. STAT KUB for now cont broad spectrum abx (meropenem, vanco, micafungin) FU CBC repeat blood, urine, sputum clx pat RN
--- NOTE | 2018-03-16 11:08 | P.PNONC ---
Subjective Interval history: T-max 99.7 Patient is progressively hypotensive [employer] has just initiated patient on vasopressin Argatroban drip was turned off approximately 1 hour ago in anticipation of possible line placement He is obtunded and on 100% FiO2 Objective Vital Signs/Intake & Output: Vital Signs 03/15/18 11:14 03/15/18 11:15 03/15/18 11:30 Temperature Pulse Rate 96 H 94 H Respiratory Rate 23 24 22 Blood Pressure 95/60 L 99/58 L Pulse Oximetry 92 L 92 L 92 L 03/15/18 11:45 03/15/18 12:00 03/15/18 12:15 Temperature 101.8 F H Pulse Rate 103 H 97 H 101 H Respiratory Rate 27 H 28 H 33 H Blood Pressure 98/63 L 95/61 L 98/62 L Pulse Oximetry 94 L 91 L 90 L 03/15/18 12:30 03/15/18 12:45 03/15/18 13:00 Temperature 98.6 F Pulse Rate 92 H 93 H 79 Respiratory Rate 26 H 32 H 23 Blood Pressure 97/57 L 95/61 L 92/59 L Pulse Oximetry 91 L 91 L 90 L 03/15/18 13:15 03/15/18 13:30 03/15/18 13:45 Temperature Pulse Rate 91 H 92 H 92 H Respiratory Rate 38 H 33 H 23 Blood Pressure 94/61 L 91/59 L 85/59 L Pulse Oximetry 90 L 89 L 94 L 03/15/18 14:00 03/15/18 14:15 03/15/18 14:30 Temperature Pulse Rate 83 91 H 93 H Respiratory Rate 25 H 27 H 25 H Blood Pressure 84/56 L 90/58 L 95/62 L Pulse Oximetry 92 L 91 L 82 L 03/15/18 14:46 03/15/18 15:00 03/15/18 15:15 Temperature Pulse Rate 90 91 H 90 Respiratory Rate 26 H 25 H 26 H Blood Pressure 95/57 L 99/61 L 98/63 L Pulse Oximetry 92 L 78 L 86 L 03/15/18 15:30 03/15/18 15:41 03/15/18 15:45 Temperature Pulse Rate 93 H 88 Respiratory Rate 33 H 26 H 24 Blood Pressure 99/66 L 99/67 L Pulse Oximetry 81 L 99 98 03/15/18 16:00 03/15/18 16:15 03/15/18 16:30 Temperature 99 F Pulse Rate 82 80 82 Respiratory Rate 24 24 21 Blood Pressure 92/64 L 81/52 L 85/56 L Pulse Oximetry 73 L 100 96 03/15/18 16:45 03/15/18 17:00 03/15/18 17:15 Temperature Pulse Rate 83 79 90 Respiratory Rate 22 22 24 Blood Pressure 86/53 L 88/56 L 98/65 L Pulse Oximetry 88 L 84 L 73 L 03/15/18 17:30 03/15/18 17:45 03/15/18 18:00 Temperature Pulse Rate 77 84 92 H Respiratory Rate 22 22 38 H Blood Pressure 82/52 L 89/59 L Pulse Oximetry 76 L 66 L 85 L 03/15/18 18:01 03/15/18 18:15 03/15/18 20:00 Temperature 99 F Pulse Rate 92 H 88 90 Respiratory Rate 31 H 24 30 H Blood Pressure 109/62 99/56 L 110/61 Pulse Oximetry 82 L 100 100 03/15/18 20:17 03/15/18 20:45 03/15/18 21:38 Temperature Pulse Rate 104 H Respiratory Rate 31 H 35 H 35 H Blood Pressure Pulse Oximetry 97 03/15/18 21:43 03/15/18 22:00 03/15/18 22:40 Temperature 99.7 F H Pulse Rate 97 H 99 H Respiratory Rate 36 H 35 H Blood Pressure 121/62 Pulse Oximetry 977 H 75 L 03/15/18 23:49 03/15/18 23:55 03/16/18 00:00 Temperature 98.7 F Pulse Rate 98 H 101 H Respiratory Rate 40 H 36 H 30 H Blood Pressure 133/77 Pulse Oximetry 90 L 100 03/16/18 01:15 03/16/18 02:00 03/16/18 03:55 Temperature Pulse Rate 96 H 102 H Respiratory Rate 27 H 50 H Blood Pressure Pulse Oximetry 03/16/18 04:00 03/16/18 04:37 03/16/18 06:00 Temperature 99.1 F Pulse Rate 111 H 109 H Respiratory Rate 29 H 36 H Blood Pressure 101/63 Pulse Oximetry 100 96 Intake & Output 03/15/18 03/16/18 03/16/18 18:59 06:59 18:59 Intake Total 1208 / 1208 2042.5 / 2042.5 Output Total 1760 / 1760 800 / 800 Balance -552 / -552 1242.5 / 1242.5 Weight 153 lb 3.54 oz Intake: IV 562.5 / 562.5 Maxipime Inj 2,000 MG In NS Inj 200 / 200 100 ML @ 200 mls/hr IV.SIG Q8H DENAE Rx#:[id number] Mycamine Inj 150 MG In NS Inj 100 / 100 100 ML @ 100 mls/hr IV.SIG Q24H DENAE Rx#:[id number] Vancomycin Inj 1,250 MG In NS 262.5 / 262.5 Inj 250 ML @ 250 mls/hr IV.SIG Q24H DENAE Rx#:[id number] Tube Feeding 428 / 428 500 / 500 Tube Irrigant 180 / 180 180 / 180 Water Bolus Amount 600 / 600 400 / 400 Intake (Blood Product) Amt 400 / 400 Rbc As-3 Leukoreduced Unit 400 / 400 [id number] Output: Stool 260 / 260 500 / 500 Urine Amount (Catheter) 1500 / 1500 300 / 300 Indwelling Urethral Catheter 1500 / 1500 300 / 300 Other: Date of Last Bowel Movement 03/15/18 03/15/18 Result Diagrams: 03/16/18 03:42 03/16/18 03:42 Laboratory Results: Laboratory Results - last 24 hr 03/06/18 03/15/18 03/15/18 13:02 09:54 11:37 WBC RBC Hgb Hct MCV MCH MCHC RDW Plt Count MPV Prelim Diff (Auto) Neut % (Auto) Lymph % (Auto) [place] % (Auto) Eos % (Auto) Baso % (Auto) Neut # (Auto) Lymph # (Auto) [place] # (Auto) Eos # (Auto) Baso # (Auto) WBC Differential Seg Neuts % (Manual) Band Neuts % (Manual) Lymphocytes % (Manual) Monocytes % (Manual) Abs Neuts (Manual) Nucleated RBCs/100 WBC Differential Comment Toxic Vacuolation Platelet Estimate Platelet Morphology PT INR APTT Puncture Site Patient Temperature O2 Saturation ABG pH ABG pCO2 ABG pO2 ABG HCO3 ABG O2 Content ABG Base Excess ABG Methemoglobin Frankie Test Hemoglobin Carboxyhemoglobin O2 Delivery Device Vent Setting Inspired O2 Critical Value Sodium Potassium Chloride Carbon Dioxide Anion Gap BUN Creatinine Estimated GFR POC Glucose 95 Random Glucose Calcium Prot Corrected Calcium Phosphorus Magnesium Total Bilirubin AST ALT Alkaline Phosphatase Ammonia Total Protein Albumin Urine Color Yellow Urine Clarity Turbid H Urine pH 5.0 Ur Specific [place] 1.008 Urine Protein 30 H Urine Glucose (UA) Negative Urine Ketones Negative Urine Occult Blood Small H Urine Nitrate Negative Urine Bilirubin Negative Urine Urobilinogen Less than 2 Ur Leukocyte Esterase Negative Urine RBC Urine WBC 17 H Urine Bacteria Occasional H Hyaline Casts 8 Urine Mucus Few H Urine Yeast Many H Ur Yeast w Hyphae Occasional H Micro UA Comment Culture indicated Ur Microscopic Review Not Reportable Urine Culture Comments Culture indicated Blood Type Antibody Screen Antibody Identification Antigen Identification Direct Antiglob Test MTS Gel Crossmatch See Detail 03/15/18 03/15/18 03/15/18 16:10 17:55 18:11 WBC RBC Hgb Hct MCV MCH MCHC RDW Plt Count MPV Prelim Diff (Auto) Neut % (Auto) Lymph % (Auto) [place] % (Auto) Eos % (Auto) Baso % (Auto) Neut # (Auto) Lymph # (Auto) [place] # (Auto) Eos # (Auto) Baso # (Auto) WBC Differential Seg Neuts % (Manual) Band Neuts % (Manual) Lymphocytes % (Manual) Monocytes % (Manual) Abs Neuts (Manual) Nucleated RBCs/100 WBC Differential Comment Toxic Vacuolation Platelet Estimate Platelet Morphology PT INR APTT Puncture Site Patient Temperature O2 Saturation ABG pH ABG pCO2 ABG pO2 ABG HCO3 ABG O2 Content ABG Base Excess ABG Methemoglobin Frankie Test Hemoglobin Carboxyhemoglobin O2 Delivery Device Vent Setting Inspired O2 Critical Value Sodium Potassium Chloride Carbon Dioxide Anion Gap BUN Creatinine Estimated GFR POC Glucose 163 H Random Glucose Calcium Prot Corrected Calcium Phosphorus Magnesium Total Bilirubin AST ALT Alkaline Phosphatase Ammonia Total Protein Albumin Urine Color Urine Clarity Urine pH Ur Specific [place] Urine Protein Urine Glucose (UA) Urine Ketones Urine Occult Blood Urine Nitrate Urine Bilirubin Urine Urobilinogen Ur Leukocyte Esterase Urine RBC Urine WBC Urine Bacteria Hyaline Casts Urine Mucus Urine Yeast Ur Yeast w Hyphae Micro UA Comment Ur Microscopic Review Urine Culture Comments Blood Type O Positive Antibody Screen Positive H Antibody Identification Anti-E Antigen Identification E Antigen - NEGATIVE Direct Antiglob Test Weakly positive H MTS Gel Crossmatch See Detail 03/15/18 03/16/18 03/16/18 23:22 00:32 01:05 WBC RBC Hgb Hct MCV MCH MCHC RDW Plt Count MPV Prelim Diff (Auto) Neut % (Auto) Lymph % (Auto) [place] % (Auto) Eos % (Auto) Baso % (Auto) Neut # (Auto) Lymph # (Auto) [place] # (Auto) Eos # (Auto) Baso # (Auto) WBC Differential Seg Neuts % (Manual) Band Neuts % (Manual) Lymphocytes % (Manual) Monocytes % (Manual) Abs Neuts (Manual) Nucleated RBCs/100 WBC Differential Comment Toxic Vacuolation Platelet Estimate Platelet Morphology PT INR APTT Puncture Site Right radial Right radial Patient Temperature 98.6 98.6 O2 Saturation 78 L* 88 L* ABG pH 7.47 H 7.47 H ABG pCO2 27 L 27 L ABG pO2 44 L* 58 L* ABG HCO3 19 L 19 L ABG O2 Content 11.9 L 12.8 ABG Base Excess -3.7 L -4.1 L ABG Methemoglobin 1.2 1.4 Frankie Test Present Present Hemoglobin 10.8 L 10.3 L Carboxyhemoglobin 1.5 1.4 O2 Delivery Device Ventilator Ventilator Vent Setting Prvc18/500/1.0/+5 Aprv/bi Inspired O2 100 100 Critical Value Yes Yes Sodium Potassium Chloride Carbon Dioxide Anion Gap BUN Creatinine Estimated GFR POC Glucose 114 H Random Glucose Calcium Prot Corrected Calcium Phosphorus Magnesium Total Bilirubin AST ALT Alkaline Phosphatase Ammonia Total Protein Albumin Urine Color Urine Clarity Urine pH Ur Specific [place] Urine Protein Urine Glucose (UA) Urine Ketones Urine Occult Blood Urine Nitrate Urine Bilirubin Urine Urobilinogen Ur Leukocyte Esterase Urine RBC Urine WBC Urine Bacteria Hyaline Casts Urine Mucus Urine Yeast Ur Yeast w Hyphae Micro UA Comment Ur Microscopic Review Urine Culture Comments Blood Type Antibody Screen Antibody Identification Antigen Identification Direct Antiglob Test MTS Gel Crossmatch 03/16/18 03/16/18 03/16/18 03:42 03:42 03:42 WBC 2.0 L RBC 3.53 L Hgb 11.0 L D Hct 33.3 L MCV 94.4 MCH 31.1 MCHC 33.0 RDW 22.3 H Plt Count 104 L MPV 11.2 H Prelim Diff (Auto) Slide review pending Neut % (Auto) 76.2 H Lymph % (Auto) 17.5 [place] % (Auto) 5.9 Eos % (Auto) 0.2 Baso % (Auto) 0.2 Neut # (Auto) 1.5 L Lymph # (Auto) 0.3 L [place] # (Auto) 0.1 Eos # (Auto) 0.0 Baso # (Auto) 0.0 WBC Differential Manual diff final Seg Neuts % (Manual) 52 Band Neuts % (Manual) 31 H Lymphocytes % (Manual) 13 Monocytes % (Manual) 4 Abs Neuts (Manual) 1.7 L Nucleated RBCs/100 WBC 2 H Differential Comment . Toxic Vacuolation Present H Platelet Estimate Low L Platelet Morphology Enlarged H PT INR APTT Puncture Site Patient Temperature O2 Saturation ABG pH ABG pCO2 ABG pO2 ABG HCO3 ABG O2 Content ABG Base Excess ABG Methemoglobin Frankie Test Hemoglobin Carboxyhemoglobin O2 Delivery Device Vent Setting Inspired O2 Critical Value Sodium 143 Potassium 3.6 Chloride 108 H Carbon Dioxide 21.5 Anion Gap 14 BUN 29 H Creatinine 0.94 Estimated GFR 81 L POC Glucose Random Glucose 96 Calcium 7.2 L* Prot Corrected Calcium 7.8 L Phosphorus 3.0 Magnesium 1.6 Total Bilirubin 0.8 AST 66 H ALT 40 Alkaline Phosphatase 68 Ammonia 14 Total Protein 5.9 L Albumin 1.6 L Urine Color Urine Clarity Urine pH Ur Specific [place] Urine Protein Urine Glucose (UA) Urine Ketones Urine Occult Blood Urine Nitrate Urine Bilirubin Urine Urobilinogen Ur Leukocyte Esterase Urine RBC Urine WBC Urine Bacteria Hyaline Casts Urine Mucus Urine Yeast Ur Yeast w Hyphae Micro UA Comment Ur Microscopic Review Urine Culture Comments Blood Type Antibody Screen Antibody Identification Antigen Identification Direct Antiglob Test MTS Gel Crossmatch 03/16/18 03/16/18 05:19 06:59 WBC RBC Hgb Hct MCV MCH MCHC RDW Plt Count MPV Prelim Diff (Auto) Neut % (Auto) Lymph % (Auto) [place] % (Auto) Eos % (Auto) Baso % (Auto) Neut # (Auto) Lymph # (Auto) [place] # (Auto) Eos # (Auto) Baso # (Auto) WBC Differential Seg Neuts % (Manual) Band Neuts % (Manual) Lymphocytes % (Manual) Monocytes % (Manual) Abs Neuts (Manual) Nucleated RBCs/100 WBC Differential Comment Toxic Vacuolation Platelet Estimate Platelet Morphology PT 40.1 H D INR 4.0 APTT 99.7 H* D Puncture Site Right radial Patient Temperature 98.6 O2 Saturation 94 ABG pH 7.42 ABG pCO2 28 L ABG pO2 84 ABG HCO3 18 L ABG O2 Content 16.6 ABG Base Excess -5.8 L ABG Methemoglobin 1.3 [place] Test Present Hemoglobin 12.6 Carboxyhemoglobin 1.0 O2 Delivery Device Ventilator Vent Setting Bilevel/aprv Inspired O2 100 Critical Value No Sodium Potassium Chloride Carbon Dioxide Anion Gap BUN Creatinine Estimated GFR POC Glucose Random Glucose Calcium Prot Corrected Calcium Phosphorus Magnesium Total Bilirubin AST ALT Alkaline Phosphatase Ammonia Total Protein Albumin Urine Color Urine Clarity Urine pH Ur Specific [place] Urine Protein Urine Glucose (UA) Urine Ketones Urine Occult Blood Urine Nitrate Urine Bilirubin Urine Urobilinogen Ur Leukocyte Esterase Urine RBC Urine WBC Urine Bacteria Hyaline Casts Urine Mucus Urine Yeast Ur Yeast w Hyphae Micro UA Comment Ur Microscopic Review Urine Culture Comments Blood Type Antibody Screen Antibody Identification Antigen Identification Direct Antiglob Test MTS Gel Crossmatch Culture Results: Microbiology 03/15/18 08:50 Gram Stain - Final Sputum - Tracheal Aspirate Imaging Studies: Impressions Chest X-Ray 03/16/18 00:00 CONCLUSION: Bilateral airspace opacities are modestly improved. Please see above. New nasogastric tube with tip in the upper stomach sidehole near the GE junction. Otherwise no significant change. Medications: Active Medications Generic Name Dose Route Start Last Admin Trade Name Freq PRN Reason Stop Dose Admin Acetaminophen 650 mg 02/14/18 09:23 03/15/18 11:37 Tylenol Liq PO 650 mg Q6H PRN Administration FEVER Acetaminophen 650 mg 03/06/18 08:26 03/14/18 17:29 Tylenol PO 650 mg Q4H PRN Administration SEE LABEL COMMENTS Hydrocodone Bitart/Acetaminophen 1 tab 03/05/18 08:11 03/10/18 08:34 [place] 7.5/325 PO 1 tab Q4H PRN Administration pain 1-10 Albuterol 1 ampul 03/12/18 16:00 03/16/18 03:55 Duoneb Neb (Denae) NEB 1 ampul Q6HR NEB DENAE Administration Albuterol 2.5 mg 02/05/18 00:00 03/15/18 23:49 Albuterol Neb (Prn) NEB 2.5 mg Q2HR NEB PRN Administration SHORTNESS OF BREATH/WHEEZING Amiodarone HCl 400 mg 02/11/18 12:00 03/16/18 09:18 Cordarone G-TUBE 400 mg BID DENAE Administration Artificial Tears 1 drops 02/14/18 21:00 03/15/18 21:06 [place] Severe Dry Eye Relief 0.3% Opth Gel EACH EYE 1 drops BID DENAE Administration Ascorbic Acid 500 mg 02/15/18 09:00 03/16/18 09:18 Vitamin C NG/OG 500 mg DAILY DENAE Administration Aspirin 81 mg 02/06/18 09:00 03/16/18 09:18 Aspirin Chew PO 81 mg DAILY DENAE Administration Atorvastatin Calcium 40 mg 02/05/18 21:00 03/15/18 21:06 Lipitor PO 40 mg HS DENAE Administration Chlorhexidine Gluconate 15 ml 02/06/18 08:00 03/16/18 09:19 Peridex 0.12% Oral Kit OROPHARYNG 15 ml BID@0800,2000 DENAE Administration Clopidogrel Bisulfate 75 mg 02/06/18 09:00 02/25/18 09:13 Plavix PO 75 mg DAILY DENAE Administration Dextrose 50 ml 02/13/18 09:27 03/01/18 06:02 D50w Vial IV.PUSH 50 ml UNSCH PRN Administration PER HYPOGLYCEMIA PROTOCOL Digoxin 250 mcg 02/07/18 09:00 02/11/18 15:41 Lanoxin Inj IV.PUSH Not Given DAILY DENAE Duloxetine HCl 90 mg 02/05/18 09:00 02/11/18 11:18 Cymbalta PO Not Given DAILY DENAE Ferrous Sulfate 300 mg 02/15/18 09:00 03/16/18 09:17 Ferrrous Sulfate Liq PO 300 mg DAILY DENAE Administration Argatroban 250 mg/ Sodium 250 mls @ 7.56 mls/hr 03/02/18 15:00 03/16/18 06:16 Chloride IV.CONT 1.5 mcg/kg/min TITRATE PRN 5.67 mls/hr Per Protocol Titration Protocol 2 MCG/KG/MIN Cefepime HCl 2,000 mg/ Sodium 100 mls @ 200 mls/hr 03/15/18 21:00 03/16/18 06 :16 Chloride IV.SIG Infused Q8H DENAE Infusion Micafungin Sodium 150 mg/ 100 mls @ 100 mls/hr 03/15/18 22:00 03/16/18 01:13 Sodium Chloride IV.SIG Infused Q24H DENAE Infusion Vancomycin HCl 1,250 mg/ 262.5 mls @ 250 mls/hr 03/15/18 22:00 03/16/18 02:49 Sodium Chloride IV.SIG Infused Q24H DENAE Infusion Fentanyl 2,500 mcg in 250 mls @ 5 mls/hr 03/16/18 00:04 03/16/18 00:17 Fentanyl 10 Mcg/Ml Premix Drip IV.SIG 50 mcg/hr TITRATE PRN 5 mls/hr Per Protocol Administration Protocol 50 MCG/HR Insulin Aspart 0 unit 02/13/18 12:00 03/16/18 05:03 Novolog Insulin Correctional Sugar Inj SQ Not Given Q6HR [facility] Protocol Lactulose 30 ml 02/05/18 00:00 02/05/18 08:38 Lactulose Liq PO 30 ml DAILY PRN Administration SEVERE [employer] Lansoprazole 30 mg 02/15/18 09:00 03/16/18 09:19 Prevacid Solutab NG/OG 30 mg DAILY DENAE Administration Magnesium Oxide 800 mg 03/12/18 08:37 03/15/18 09:00 Mag-Ox PO 800 mg UNSCH PRN Administration For Magnesium 1.2 - 1.6 mg/dL Methylprednisolone Sodium Succinate 20 mg 03/07/18 11:47 03/16/18 09:17 Solumedrol Inj IV.PUSH 20 mg DAILY DENAE Administration Morphine Sulfate 4 mg 03/05/18 08:12 03/15/18 21:11 Morphine Inj IV.PUSH 4 mg Q3H PRN Administration breakthrough pain Multivitamins 1 tab 02/05/18 09:00 03/16/18 09:18 Theragran PO 1 tab DAILY DENAE Administration Potassium Phosphate 2,000 mg 03/12/18 08:37 03/15/18 12:53 K-Phos Original PO 2,000 mg Q4H PRN Administration Phosphorus Less Than 2.5 mg/dL Pregabalin 150 mg 02/04/18 23:50 03/16/18 09:17 Lyrica PO 150 mg BID DENAE Administration Senna/Docusate Sodium 1 tab 02/05/18 09:00 03/16/18 09:18 Linda-Colace PO 1 tab BID DENAE Administration Sodium Chloride 2 ml 02/05/18 09:00 03/16/18 09:19 Ns Flush IV.FLUSH 2 ml BID DENAE Administration Sterile Water 300 ml 03/02/18 18:00 03/16/18 05:02 Free Water G-TUBE 300 ml Q6HR DENAE Administration Vancomycin HCl 500 mg 02/11/18 16:00 03/16/18 05:03 Vancomycin Po G-TUBE 500 mg Q6HR DENAE Administration Whey 1 packet 02/08/18 13:00 03/15/18 18:12 Beneprotein Powder G-TUBE 1 packet TID DENAE Administration Objective Remarks: GENERAL: Ill-appearing cachectic older male patient resting in bed mechanically ventilated SKIN: Pale, warm and diaphoretic. HEAD: Normocephalic. EYES: No scleral icterus. No injection or drainage. NECK: Tracheostomy midline. No bleeding/oozing noted at tracheostomy site, erythema noted at base of collar. CARDIOVASCULAR: +S1/S2. Tachycardia RESPIRATORY: Bilateral rhonchi. +vent. On 100% FiO2 GASTROINTESTINAL: Abdomen soft, non-tender, distended. Feeding tube LUQ. EXTREMITIES: No cyanosis, or edema. MUSCULOSKELETAL: Generalized weakness, decreased muscle tone. NEUROLOGICAL: Patient obtunded. Currently not following commands Assessment/Plan - Plan 62-year-old male admitted to the hospital in late January for fever and hypotension. He was found to have septic shock. He has C. difficile colitis. Hematology consulted for thrombocytopenia. 1. Argatroban drip currently turned off in anticipation of possible line placement. I have ordered repeat INR, APTT to be done at noon today. 2. Palliative care to speak with patient's spouse today about possible transition to hospice, however in the past the has remained quite aggressive in terms of treatment. Once no more procedures planned would recommend to resume argatroban drip at lower dose. 3. Continue to monitor CBC, coags and liver functions. - Attending Statement The exam, history, and the medical decision-making described in the above note were completed with the assistance of the mid-level provider. I reviewed and agree with the findings presented. I attest that I had a [id number] encounter with the patient on the same day, and personally performed and documented my assessment and findings in the medical record. Patient's clinical status is declining. He is lethargic this morning. He was restarted back on pressors. He also require more oxygen support. His INR is more than 5 due to Argatroban. Will reduce the dose of Argatroban before transition to Coumadin. However due to his declining status he may be difficult to transition to Coumadin at this time.
[2018-03-16] MEDS: Hypromellose 0.3% Opth Gel 10 GM Bottle EACH EYE SCH ×2 (11:19→20:20)
[2018-03-16] MEDS: Beneprotein Powder Packet G-TUBE SCH ×3 (11:19→18:42)
--- NOTE | 2018-03-16 12:04 | XR ---
EXAM DATE: 03/16/2018 11:38 AM EDT AGE/SEX: 62 years / Male INDICATIONS: Abdominal distention. CLINICAL DATA: This is the patient's subsequent encounter. Patient reports that signs and symptoms h ave been present for 1 month and indicates a pain score of Nonresponsive. MEDICAL/SURGICAL HISTORY: Chronic obstructive pulmonary disease. Osteoporosis. Cerebral vascula r accident. Aortic valve replacement. Inguinal hernia repair. [place] [facility] [place] 03/16/[place]. . FINDINGS: There is a nonspecific bowel gas pattern without evidence of obstruction or ileus. No free intraperi toneal air is noted. Degenerative changes and scoliosis of the thoracolumbar spine are noted. CONCLUSION: 1. No evidence of bowel obstruction, ileus or perforation. 2. Degenerative changes and scoliosis of the thoracolumbar spine. Electronically signed by: Raffi Kan MD 03/16/2018 12:02 PM EDT
[2018-03-16 14:15] LABS: Prothrombin Time 60.3 sec (9.8-11.6)
[2018-03-16 14:17] LABS: Activated Partial Thrombo Time 105.3 sec (24.3-30.1)
--- NOTE | 2018-03-16 14:46 | P.DIET ---
Nutritional Evaluation Type of nutrition evaluation: follow-up Nutrition consult regarding: Tube Feeding Objective - Diagnosis Septic Shock - Objective Slemp body weight: 67 kg % IBW: 88 Body Weight Used for Calculations: IBW Energy Needs - Lower Range (kCal/kg): 25 Energy Needs - Upper Range (kCal/kg): 30 Lower Limit kCal/kg (kCals): 1,675 Upper Limit kCal/kg (kCals): 2,016 Lower Limit Protein Factor (Grams per Kg): 1.2 Upper Limit Protein Factor (Grams per Kg): 1.4 Lower Protein Needs (Protein): 80 Upper Protein Needs (Protein): 94 Dietitian Reviewed in Medical Record: Curent medications, Intake & Output, Labs , Tube feeding, Wound/DTI Diet Order: TF'ing only: TF'ing Jevity 1.5 @ 50ml/hr Wound Care Note: 02/27/18 WOCN note: Sacrum Deep Tissue Injury; Lower Back Deep Tissue Injury; Mid Spine Stage II Objective Comments: PMH: HLD, MSSA Bacteremia, COPD, CVA, Osteoporosis, Neuropathy Nursing wound assessment : Pressure Injury mid spine, lower back and sacrum 03/03 s/p Trach placement 02/28 s/p PEG placement 02/19 s/p extubation 02/10 s/p intubated Meds include: Vit C, Lipitor, Cordarone, Theragran, Lyrica, Beneprotein 1-pkt TID, free water flushes 300ml Q 6-hr Labs include: Glucose 96, POC glucose 114 c-diff colitis, + stool; +UOP 1800ml Feeding - Current Tube Feeding Tube Feeding Product: Jevity 1.5 Tube Feeding Rate: 50 Tube Feeding Route: gastrostomy Current kCals Provided by Tube Feedin,800 Current Protein Provided by Tube Feeding (gPRO): 77 Current Free H2O Provided (m/l): 912 - Current PO Supplement Current Supplement: Other Supplement Comments: Beneprotein Packet TID provides 75 kcal and 18g Protein Assessment Assessment: Pt continues at nutritional risk r/t need for TF'ing and clinical status. Pt tolerating TF'ing w/Jevity 1.5 @ Rec goal rate of 50 ml/hr. Rec to continue Beneprotein 1-pkt TID to assist w/meeting protein needs. Rec addition of a probiotic in setting of c-diff colitis. Wt changes noted. Free water flushes as ordered. Additional Recs r/t clinical course. Recommendations: 1. TF'ing w/Jevity 1.5 @ Rec goal rate of 50 ml/hr. 2. Beneprotein 1-pkt TID 3. Rec addition of a probiotic in setting of c-diff colitis 4. Free water flushes as ordered 5. Additional Recs r/t clinical course Dietitian to Monitor: Lab values, Intake & Output, Tube feeding tolerance, Weight change, Wound/skin status, Medical course
--- NOTE | 2018-03-16 14:53 | P.PNPAL ---
Reason for Visit Reason for visit: a. To assist with evaluation and management of symptoms including: pain, dyspnea, weakness b. To assist medical decision maker(s) with: better understanding of current medical conditions; weighing benefits/burdens of medical treatment options; making medical treatment decisions. Subjective Subjective/Interval History: Pt in bed, tachypneic. Does not follow commands. Unable to verbalize pain or other complaints. Worsening respiratory status- Fio2 80%- 100%. Has been hypotensive. On versed gtt. INR trending up, 6 today. Family/Friend Interactions: Discussion at bedside with . Provided medical update. Informed her of poor prognosis, worsening respiratory status. She elected to make him alt code no intubation. She is not ready for withdrawal or comfort measures. She believes he is getting better and that God will still work a miracle. Objective Vital Signs: Vital Signs 03/15/18 14:30 03/15/18 14:46 03/15/18 15:00 Temperature Pulse Rate 93 H 90 91 H Respiratory Rate 25 H 26 H 25 H Blood Pressure 95/62 L 95/57 L 99/61 L Pulse Oximetry 82 L 92 L 78 L 03/15/18 15:15 03/15/18 15:30 03/15/18 15:41 Temperature Pulse Rate 90 93 H Respiratory Rate 26 H 33 H 26 H Blood Pressure 98/63 L 99/66 L Pulse Oximetry 86 L 81 L 99 03/15/18 15:45 03/15/18 16:00 03/15/18 16:15 Temperature 99 F Pulse Rate 88 82 80 Respiratory Rate 24 24 24 Blood Pressure 99/67 L 92/64 L 81/52 L Pulse Oximetry 98 73 L 100 03/15/18 16:30 03/15/18 16:45 03/15/18 17:00 Temperature Pulse Rate 82 83 79 Respiratory Rate 21 22 22 Blood Pressure 85/56 L 86/53 L 88/56 L Pulse Oximetry 96 88 L 84 L 03/15/18 17:15 03/15/18 17:30 03/15/18 17:45 Temperature Pulse Rate 90 77 84 Respiratory Rate 24 22 22 Blood Pressure 98/65 L 82/52 L 89/59 L Pulse Oximetry 73 L 76 L 66 L 03/15/18 18:00 03/15/18 18:01 03/15/18 18:15 Temperature Pulse Rate 92 H 92 H 88 Respiratory Rate 38 H 31 H 24 Blood Pressure 109/62 99/56 L Pulse Oximetry 85 L 82 L 100 03/15/18 20:00 03/15/18 20:17 03/15/18 20:45 Temperature 99 F Pulse Rate 90 104 H Respiratory Rate 30 H 31 H 35 H Blood Pressure 110/61 Pulse Oximetry 100 97 03/15/18 21:38 03/15/18 21:43 03/15/18 22:00 Temperature 99.7 F H Pulse Rate 97 H 99 H Respiratory Rate 35 H 36 H Blood Pressure 121/62 Pulse Oximetry 977 H 03/15/18 22:40 03/15/18 23:49 03/15/18 23:55 Temperature Pulse Rate 98 H Respiratory Rate 35 H 40 H 36 H Blood Pressure Pulse Oximetry 75 L 90 L 03/16/18 00:00 03/16/18 01:15 03/16/18 02:00 Temperature 98.7 F Pulse Rate 101 H 96 H Respiratory Rate 30 H 27 H Blood Pressure 133/77 Pulse Oximetry 100 03/16/18 03:55 03/16/18 04:00 03/16/18 04:37 Temperature 99.1 F Pulse Rate 102 H 111 H Respiratory Rate 50 H 29 H 36 H Blood Pressure 101/63 Pulse Oximetry 100 96 03/16/18 06:00 03/16/18 08:00 03/16/18 10:00 Temperature 99 F Pulse Rate 109 H 97 H 89 Respiratory Rate 31 H Blood Pressure 188/77 H Pulse Oximetry 03/16/18 12:00 03/16/18 12:13 Temperature 98.9 F Pulse Rate 93 H Respiratory Rate 36 H 32 H Blood Pressure 80/53 L Pulse Oximetry 100 Intake & Output 03/15/18 03/16/18 03/16/18 18:59 06:59 18:59 Intake Total 1208 / 1208 2042.5 / 2042.5 500 / 500 Output Total 1760 / 1760 800 / 800 Balance -552 / -552 1242.5 / 1242.5 500 / 500 Weight 69.5 kg Intake: IV 562.5 / 562.5 500 / 500 Maxipime Inj 2,000 MG In NS Inj 200 / 200 100 ML @ 200 mls/hr IV.SIG Q8H [facility] Rx#:[id number] Mycamine Inj 150 MG In NS Inj 100 / 100 100 ML @ 100 mls/hr IV.SIG Q24H [facility] Rx#:[id number] NS Inj 500 ML @ 999 mls/hr IV. 500 / 500 SIG .Q31M [facility] Rx#:[id number] Vancomycin Inj 1,250 MG In NS 262.5 / 262.5 Inj 250 ML @ 250 mls/hr IV.SIG Q24H [facility] Rx#:[id number] Tube Feeding 428 / 428 500 / 500 Tube Irrigant 180 / 180 180 / 180 Water Bolus Amount 600 / 600 400 / 400 Intake (Blood Product) Amt 400 / 400 Rbc As-3 Leukoreduced Unit 400 / 400 [id number] Output: Stool 260 / 260 500 / 500 Urine Amount (Catheter) 1500 / 1500 300 / 300 Indwelling Urethral Catheter 1500 / 1500 300 / 300 Other: Date of Last Bowel Movement 03/15/18 03/15/18 03/15/18 Physical Exam: CONSTITUTIONAL/GENERAL: ill appearing and cachectic male SKIN: Sallow. No jaundice, rashes, or lesions. No wounds seen anteriorly. Not diaphoretic. HEAD: Atraumatic. Normocephalic. + temporal wasting EYES:glassy. Fundi not examined. ENT: Nose without bleeding or purulent drainage. tracheostomy breathing tx CARDIOVASCULAR:RRR without murmurs, gallops, or rubs. + click. RESPIRATORY/CHEST: lung sounds coarse. tachypneic on vent GASTROINTESTINAL: Abdomen soft, mildly distended, TTP. No hepato-splenomegaly, or palpable masses. Bowel sounds faint. +rectal bag with liquid stool GENITOURINARY: Without palpable bladder distension. Cano catheter in place. MUSCULOSKELETAL: Extremities without clubbing, cyanosis. No mottling or clubbing. NEUROLOGICAL: nonverbal, moves extremities, unable to follow commands Diagnostic Tests Laboratory: Laboratory Results - last 72 hr 03/06/18 03/13/18 03/13/18 13:02 14:44 16:00 WBC RBC Hgb Hct MCV MCH MCHC RDW Plt Count MPV Prelim Diff (Auto) Neut % (Auto) Lymph % (Auto) [place] % (Auto) Eos % (Auto) Baso % (Auto) Neut # (Auto) Lymph # (Auto) [place] # (Auto) Eos # (Auto) Baso # (Auto) WBC Differential Diff Scan Seg Neuts % (Manual) Band Neuts % (Manual) Lymphocytes % (Manual) Monocytes % (Manual) Abs Neuts (Manual) Nucleated RBCs/100 WBC Differential Comment Toxic Vacuolation Platelet Estimate Platelet Morphology PT INR APTT 64.4 H D Puncture Site Patient Temperature O2 Saturation ABG pH ABG pCO2 ABG pO2 ABG HCO3 ABG O2 Content ABG Base Excess ABG Methemoglobin Frankie Test Hemoglobin Carboxyhemoglobin O2 Delivery Device Vent Setting Inspired O2 Critical Value Sodium Potassium Chloride Carbon Dioxide Anion Gap BUN Creatinine Estimated GFR POC Glucose 181 H Random Glucose Calcium Prot Corrected Calcium Phosphorus Magnesium Total Bilirubin AST ALT Alkaline Phosphatase Ammonia Total Protein Albumin Urine Color Urine Clarity Urine pH Ur Specific [place] Urine Protein Urine Glucose (UA) Urine Ketones Urine Occult Blood Urine Nitrate Urine Bilirubin Urine Urobilinogen Ur Leukocyte Esterase Urine RBC Urine WBC Urine Bacteria Hyaline Casts Urine Mucus Urine Yeast Ur Yeast w Hyphae Micro UA Comment Ur Microscopic Review Urine Culture Comments St C. diff Tox Epid 027 Random Vancomycin C. difficile (PCR) Blood Type Antibody Screen Antibody Identification Antigen Identification Direct Antiglob Test MTS Gel Crossmatch See Detail 03/13/18 03/13/18 03/13/18 17:45 18:28 19:20 WBC RBC Hgb Hct MCV MCH MCHC RDW Plt Count MPV Prelim Diff (Auto) Neut % (Auto) Lymph % (Auto) [place] % (Auto) Eos % (Auto) Baso % (Auto) Neut # (Auto) Lymph # (Auto) [place] # (Auto) Eos # (Auto) Baso # (Auto) WBC Differential Diff Scan Seg Neuts % (Manual) Band Neuts % (Manual) Lymphocytes % (Manual) Monocytes % (Manual) Abs Neuts (Manual) Nucleated RBCs/100 WBC Differential Comment Toxic Vacuolation Platelet Estimate Platelet Morphology PT INR APTT Puncture Site Patient Temperature O2 Saturation ABG pH ABG pCO2 ABG pO2 ABG HCO3 ABG O2 Content ABG Base Excess ABG Methemoglobin Frankie Test Hemoglobin Carboxyhemoglobin O2 Delivery Device Vent Setting Inspired O2 Critical Value Sodium Potassium Chloride Carbon Dioxide Anion Gap BUN Creatinine Estimated GFR POC Glucose 197 H Random Glucose Calcium Prot Corrected Calcium Phosphorus Magnesium Total Bilirubin AST ALT Alkaline Phosphatase Ammonia Total Protein Albumin Urine Color Urine Clarity Urine pH Ur Specific [place] Urine Protein Urine Glucose (UA) Urine Ketones Urine Occult Blood Urine Nitrate Urine Bilirubin Urine Urobilinogen Ur Leukocyte Esterase Urine RBC Urine WBC Urine Bacteria Hyaline Casts Urine Mucus Urine Yeast Ur Yeast w Hyphae Micro UA Comment Ur Microscopic Review Urine Culture Comments St C. diff Tox Epid 027 Negative Random Vancomycin Less than 0.8 C. difficile (PCR) Negative Blood Type Antibody Screen Antibody Identification Antigen Identification Direct Antiglob Test MTS Gel Crossmatch 03/14/18 03/14/18 03/14/18 00:26 05:30 05:30 WBC 2.6 L RBC 2.52 L Hgb 8.1 L Hct 24.9 L MCV 98.6 MCH 32.2 MCHC 32.6 RDW 22.9 H Plt Count 75 L D MPV 10.6 Prelim Diff (Auto) Slide review pending Neut % (Auto) 79.1 H Lymph % (Auto) 14.8 [place] % (Auto) 5.4 Eos % (Auto) 0.2 Baso % (Auto) 0.5 Neut # (Auto) 2.0 Lymph # (Auto) 0.4 L [place] # (Auto) 0.1 Eos # (Auto) 0.0 Baso # (Auto) 0.0 WBC Differential . Diff Scan Auto diff confirmed Seg Neuts % (Manual) Band Neuts % (Manual) Lymphocytes % (Manual) Monocytes % (Manual) Abs Neuts (Manual) Nucleated RBCs/100 WBC Differential Comment . Toxic Vacuolation Platelet Estimate Low L Platelet Morphology Enlarged H PT INR APTT Puncture Site Patient Temperature O2 Saturation ABG pH ABG pCO2 ABG pO2 ABG HCO3 ABG O2 Content ABG Base Excess ABG Methemoglobin Frankie Test Hemoglobin Carboxyhemoglobin O2 Delivery Device Vent Setting Inspired O2 Critical Value Sodium 145 Potassium 3.9 Chloride 112 H Carbon Dioxide 21.7 Anion Gap 11 BUN 23 H Creatinine 0.85 Estimated GFR Greater than 89 POC Glucose 134 H Random Glucose 111 H Calcium 7.5 L Prot Corrected Calcium Phosphorus 2.4 L Magnesium 1.8 Total Bilirubin 0.4 AST 50 H ALT 19 Alkaline Phosphatase 52 Ammonia Total Protein 5.6 L Albumin 1.6 L Urine Color Urine Clarity Urine pH Ur Specific [place] Urine Protein Urine Glucose (UA) Urine Ketones Urine Occult Blood Urine Nitrate Urine Bilirubin Urine Urobilinogen Ur Leukocyte Esterase Urine RBC Urine WBC Urine Bacteria Hyaline Casts Urine Mucus Urine Yeast Ur Yeast w Hyphae Micro UA Comment Ur Microscopic Review Urine Culture Comments St C. diff Tox Epid 027 Random Vancomycin C. difficile (PCR) Blood Type Antibody Screen Antibody Identification Antigen Identification Direct Antiglob Test MTS Gel Crossmatch 03/14/18 03/14/18 03/14/18 05:30 05:42 11:46 WBC RBC Hgb Hct MCV MCH MCHC RDW Plt Count MPV Prelim Diff (Auto) Neut % (Auto) Lymph % (Auto) [place] % (Auto) Eos % (Auto) Baso % (Auto) Neut # (Auto) Lymph # (Auto) [place] # (Auto) Eos # (Auto) Baso # (Auto) WBC Differential Diff Scan Seg Neuts % (Manual) Band Neuts % (Manual) Lymphocytes % (Manual) Monocytes % (Manual) Abs Neuts (Manual) Nucleated RBCs/100 WBC Differential Comment Toxic Vacuolation Platelet Estimate Platelet Morphology PT INR APTT 77.6 H D 59.8 H D Puncture Site Patient Temperature O2 Saturation ABG pH ABG pCO2 ABG pO2 ABG HCO3 ABG O2 Content ABG Base Excess ABG Methemoglobin Frankie Test Hemoglobin Carboxyhemoglobin O2 Delivery Device Vent Setting Inspired O2 Critical Value Sodium Potassium Chloride Carbon Dioxide Anion Gap BUN Creatinine Estimated GFR POC Glucose 129 H Random Glucose Calcium Prot Corrected Calcium Phosphorus Magnesium Total Bilirubin AST ALT Alkaline Phosphatase Ammonia Total Protein Albumin Urine Color Urine Clarity Urine pH Ur Specific [place] Urine Protein Urine Glucose (UA) Urine Ketones Urine Occult Blood Urine Nitrate Urine Bilirubin Urine Urobilinogen Ur Leukocyte Esterase Urine RBC Urine WBC Urine Bacteria Hyaline Casts Urine Mucus Urine Yeast Ur Yeast w Hyphae Micro UA Comment Ur Microscopic Review Urine Culture Comments St C. diff Tox Epid 027 Random Vancomycin C. difficile (PCR) Blood Type Antibody Screen Antibody Identification Antigen Identification Direct Antiglob Test MTS Gel Crossmatch 03/14/18 03/14/18 03/15/18 12:37 17:28 01:06 WBC RBC Hgb Hct MCV MCH MCHC RDW Plt Count MPV Prelim Diff (Auto) Neut % (Auto) Lymph % (Auto) [place] % (Auto) Eos % (Auto) Baso % (Auto) Neut # (Auto) Lymph # (Auto) [place] # (Auto) Eos # (Auto) Baso # (Auto) WBC Differential Diff Scan Seg Neuts % (Manual) Band Neuts % (Manual) Lymphocytes % (Manual) Monocytes % (Manual) Abs Neuts (Manual) Nucleated RBCs/100 WBC Differential Comment Toxic Vacuolation Platelet Estimate Platelet Morphology PT INR APTT Puncture Site Patient Temperature O2 Saturation ABG pH ABG pCO2 ABG pO2 ABG HCO3 ABG O2 Content ABG Base Excess ABG Methemoglobin Frankie Test Hemoglobin Carboxyhemoglobin O2 Delivery Device Vent Setting Inspired O2 Critical Value Sodium Potassium Chloride Carbon Dioxide Anion Gap BUN Creatinine Estimated GFR POC Glucose 199 H 202 H 142 H Random Glucose Calcium Prot Corrected Calcium Phosphorus Magnesium Total Bilirubin AST ALT Alkaline Phosphatase Ammonia Total Protein Albumin Urine Color Urine Clarity Urine pH Ur Specific [place] Urine Protein Urine Glucose (UA) Urine Ketones Urine Occult Blood Urine Nitrate Urine Bilirubin Urine Urobilinogen Ur Leukocyte Esterase Urine RBC Urine WBC Urine Bacteria Hyaline Casts Urine Mucus Urine Yeast Ur Yeast w Hyphae Micro UA Comment Ur Microscopic Review Urine Culture Comments St C. diff Tox Epid 027 Random Vancomycin C. difficile (PCR) Blood Type Antibody Screen Antibody Identification Antigen Identification Direct Antiglob Test MTS Gel Crossmatch 03/15/18 03/15/18 03/15/18 03:33 05:37 05:37 WBC 2.1 L RBC 2.37 L Hgb 7.7 L Hct 23.1 L MCV 97.4 MCH 32.5 MCHC 33.3 RDW 22.5 H Plt Count 97 L MPV 10.8 Prelim Diff (Auto) Slide review pending Neut % (Auto) 77.3 H Lymph % (Auto) 17.5 [place] % (Auto) 4.9 Eos % (Auto) 0.1 Baso % (Auto) 0.2 Neut # (Auto) 1.6 L Lymph # (Auto) 0.4 L [place] # (Auto) 0.1 Eos # (Auto) 0.0 Baso # (Auto) 0.0 WBC Differential . Diff Scan Auto diff confirmed Seg Neuts % (Manual) Band Neuts % (Manual) Lymphocytes % (Manual) Monocytes % (Manual) Abs Neuts (Manual) Nucleated RBCs/100 WBC Differential Comment . Toxic Vacuolation Platelet Estimate Low L Platelet Morphology Enlarged H PT INR APTT 66.8 H Puncture Site Patient Temperature O2 Saturation ABG pH ABG pCO2 ABG pO2 ABG HCO3 ABG O2 Content ABG Base Excess ABG Methemoglobin Frankie Test Hemoglobin Carboxyhemoglobin O2 Delivery Device Vent Setting Inspired O2 Critical Value Sodium 143 Potassium 3.6 Chloride 109 H Carbon Dioxide 21.6 Anion Gap 12 BUN 26 H Creatinine 0.87 Estimated GFR 88 L POC Glucose Random Glucose 92 Calcium 7.5 L Prot Corrected Calcium Phosphorus 2.3 L Magnesium 1.5 Total Bilirubin 0.6 AST 60 H ALT 33 Alkaline Phosphatase 76 Ammonia Total Protein 6.0 L Albumin 1.7 L Urine Color Urine Clarity Urine pH Ur Specific [place] Urine Protein Urine Glucose (UA) Urine Ketones Urine Occult Blood Urine Nitrate Urine Bilirubin Urine Urobilinogen Ur Leukocyte Esterase Urine RBC Urine WBC Urine Bacteria Hyaline Casts Urine Mucus Urine Yeast Ur Yeast w Hyphae Micro UA Comment Ur Microscopic Review Urine Culture Comments St C. diff Tox Epid 027 Random Vancomycin C. difficile (PCR) Blood Type Antibody Screen Antibody Identification Antigen Identification Direct Antiglob Test MTS Gel Crossmatch 03/15/18 03/15/18 03/15/18 09:54 11:37 16:10 WBC RBC Hgb Hct MCV MCH MCHC RDW Plt Count MPV Prelim Diff (Auto) Neut % (Auto) Lymph % (Auto) [place] % (Auto) Eos % (Auto) Baso % (Auto) Neut # (Auto) Lymph # (Auto) [place] # (Auto) Eos # (Auto) Baso # (Auto) WBC Differential Diff Scan Seg Neuts % (Manual) Band Neuts % (Manual) Lymphocytes % (Manual) Monocytes % (Manual) Abs Neuts (Manual) Nucleated RBCs/100 WBC Differential Comment Toxic Vacuolation Platelet Estimate Platelet Morphology PT INR APTT Puncture Site Patient Temperature O2 Saturation ABG pH ABG pCO2 ABG pO2 ABG HCO3 ABG O2 Content ABG Base Excess ABG Methemoglobin Frankie Test Hemoglobin Carboxyhemoglobin O2 Delivery Device Vent Setting Inspired O2 Critical Value Sodium Potassium Chloride Carbon Dioxide Anion Gap BUN Creatinine Estimated GFR POC Glucose 95 Random Glucose Calcium Prot Corrected Calcium Phosphorus Magnesium Total Bilirubin AST ALT Alkaline Phosphatase Ammonia Total Protein Albumin Urine Color Yellow Urine Clarity Turbid H Urine pH 5.0 Ur Specific [place] 1.008 Urine Protein 30 H Urine Glucose (UA) Negative Urine Ketones Negative Urine Occult Blood Small H Urine Nitrate Negative Urine Bilirubin Negative Urine Urobilinogen Less than 2 Ur Leukocyte Esterase Negative Urine RBC Urine WBC 17 H Urine Bacteria Occasional H Hyaline Casts 8 Urine Mucus Few H Urine Yeast Many H Ur Yeast w Hyphae Occasional H Micro UA Comment Culture indicated Ur Microscopic Review Not Reportable Urine Culture Comments Culture indicated St C. diff Tox Epid 027 Random Vancomycin C. difficile (PCR) Blood Type O Positive Antibody Screen Positive H Antibody Identification Antigen Identification E Antigen - NEGATIVE Direct Antiglob Test Weakly positive H MTS Gel Crossmatch See Detail 03/15/18 03/15/18 03/15/18 17:55 18:11 23:22 WBC RBC Hgb Hct MCV MCH MCHC RDW Plt Count MPV Prelim Diff (Auto) Neut % (Auto) Lymph % (Auto) [place] % (Auto) Eos % (Auto) Baso % (Auto) Neut # (Auto) Lymph # (Auto) [place] # (Auto) Eos # (Auto) Baso # (Auto) WBC Differential Diff Scan Seg Neuts % (Manual) Band Neuts % (Manual) Lymphocytes % (Manual) Monocytes % (Manual) Abs Neuts (Manual) Nucleated RBCs/100 WBC Differential Comment Toxic Vacuolation Platelet Estimate Platelet Morphology PT INR APTT Puncture Site Right radial Patient Temperature 98.6 O2 Saturation 78 L* ABG pH 7.47 H ABG pCO2 27 L ABG pO2 44 L* ABG HCO3 19 L ABG O2 Content 11.9 L ABG Base Excess -3.7 L ABG Methemoglobin 1.2 Frankie Test Present Hemoglobin 10.8 L Carboxyhemoglobin 1.5 O2 Delivery Device Ventilator Vent Setting Prvc18/500/1.0/+5 Inspired O2 100 Critical Value Yes Sodium Potassium Chloride Carbon Dioxide Anion Gap BUN Creatinine Estimated GFR POC Glucose 163 H Random Glucose Calcium Prot Corrected Calcium Phosphorus Magnesium Total Bilirubin AST ALT Alkaline Phosphatase Ammonia Total Protein Albumin Urine Color Urine Clarity Urine pH Ur Specific [place] Urine Protein Urine Glucose (UA) Urine Ketones Urine Occult Blood Urine Nitrate Urine Bilirubin Urine Urobilinogen Ur Leukocyte Esterase Urine RBC Urine WBC Urine Bacteria Hyaline Casts Urine Mucus Urine Yeast Ur Yeast w Hyphae Micro UA Comment Ur Microscopic Review Urine Culture Comments St C. diff Tox Epid 027 Random Vancomycin C. difficile (PCR) Blood Type Antibody Screen Antibody Identification Anti-E Antigen Identification Direct Antiglob Test MTS Gel Crossmatch 03/16/18 03/16/18 03/16/18 00:32 01:05 03:42 WBC RBC Hgb Hct MCV MCH MCHC RDW Plt Count MPV Prelim Diff (Auto) Neut % (Auto) Lymph % (Auto) [place] % (Auto) Eos % (Auto) Baso % (Auto) Neut # (Auto) Lymph # (Auto) [place] # (Auto) Eos # (Auto) Baso # (Auto) WBC Differential Diff Scan Seg Neuts % (Manual) Band Neuts % (Manual) Lymphocytes % (Manual) Monocytes % (Manual) Abs Neuts (Manual) Nucleated RBCs/100 WBC Differential Comment Toxic Vacuolation Platelet Estimate Platelet Morphology PT INR APTT Puncture Site Right radial Patient Temperature 98.6 O2 Saturation 88 L* ABG pH 7.47 H ABG pCO2 27 L ABG pO2 58 L* ABG HCO3 19 L ABG O2 Content 12.8 ABG Base Excess -4.1 L ABG Methemoglobin 1.4 Frankie Test Present Hemoglobin 10.3 L Carboxyhemoglobin 1.4 O2 Delivery Device Ventilator Vent Setting Aprv/bi Inspired O2 100 Critical Value Yes Sodium Potassium Chloride Carbon Dioxide Anion Gap BUN Creatinine Estimated GFR POC Glucose 114 H Random Glucose Calcium Prot Corrected Calcium Phosphorus Magnesium Total Bilirubin AST ALT Alkaline Phosphatase Ammonia 14 Total Protein Albumin Urine Color Urine Clarity Urine pH Ur Specific [place] Urine Protein Urine Glucose (UA) Urine Ketones Urine Occult Blood Urine Nitrate Urine Bilirubin Urine Urobilinogen Ur Leukocyte Esterase Urine RBC Urine WBC Urine Bacteria Hyaline Casts Urine Mucus Urine Yeast Ur Yeast w Hyphae Micro UA Comment Ur Microscopic Review Urine Culture Comments St C. diff Tox Epid 027 Random Vancomycin C. difficile (PCR) Blood Type Antibody Screen Antibody Identification Antigen Identification Direct Antiglob Test MTS Gel Crossmatch 03/16/18 03/16/18 03/16/18 03:42 03:42 05:19 WBC 2.0 L RBC 3.53 L Hgb 11.0 L D Hct 33.3 L MCV 94.4 MCH 31.1 MCHC 33.0 RDW 22.3 H Plt Count 104 L MPV 11.2 H Prelim Diff (Auto) Slide review pending Neut % (Auto) 76.2 H Lymph % (Auto) 17.5 [place] % (Auto) 5.9 Eos % (Auto) 0.2 Baso % (Auto) 0.2 Neut # (Auto) 1.5 L Lymph # (Auto) 0.3 L [place] # (Auto) 0.1 Eos # (Auto) 0.0 Baso # (Auto) 0.0 WBC Differential Manual diff final Diff Scan Seg Neuts % (Manual) 52 Band Neuts % (Manual) 31 H Lymphocytes % (Manual) 13 Monocytes % (Manual) 4 Abs Neuts (Manual) 1.7 L Nucleated RBCs/100 WBC 2 H Differential Comment . Toxic Vacuolation Present H Platelet Estimate Low L Platelet Morphology Enlarged H PT INR APTT Puncture Site Right radial Patient Temperature 98.6 O2 Saturation 94 ABG pH 7.42 ABG pCO2 28 L ABG pO2 84 ABG HCO3 18 L ABG O2 Content 16.6 ABG Base Excess -5.8 L ABG Methemoglobin 1.3 Frankie Test Present Hemoglobin 12.6 Carboxyhemoglobin 1.0 O2 Delivery Device Ventilator Vent Setting Bilevel/aprv Inspired O2 100 Critical Value No Sodium 143 Potassium 3.6 Chloride 108 H Carbon Dioxide 21.5 Anion Gap 14 BUN 29 H Creatinine 0.94 Estimated GFR 81 L POC Glucose Random Glucose 96 Calcium 7.2 L* Prot Corrected Calcium 7.8 L Phosphorus 3.0 Magnesium 1.6 Total Bilirubin 0.8 AST 66 H ALT 40 Alkaline Phosphatase 68 Ammonia Total Protein 5.9 L Albumin 1.6 L Urine Color Urine Clarity Urine pH Ur Specific [place] Urine Protein Urine Glucose (UA) Urine Ketones Urine Occult Blood Urine Nitrate Urine Bilirubin Urine Urobilinogen Ur Leukocyte Esterase Urine RBC Urine WBC Urine Bacteria Hyaline Casts Urine Mucus Urine Yeast Ur Yeast w Hyphae Micro UA Comment Ur Microscopic Review Urine Culture Comments St C. diff Tox Epid 027 Random Vancomycin C. difficile (PCR) Blood Type Antibody Screen Antibody Identification Antigen Identification Direct Antiglob Test MTS Gel Crossmatch 03/16/18 03/16/18 06:59 13:14 WBC RBC Hgb Hct MCV MCH MCHC RDW Plt Count MPV Prelim Diff (Auto) Neut % (Auto) Lymph % (Auto) [place] % (Auto) Eos % (Auto) Baso % (Auto) Neut # (Auto) Lymph # (Auto) [place] # (Auto) Eos # (Auto) Baso # (Auto) WBC Differential Diff Scan Seg Neuts % (Manual) Band Neuts % (Manual) Lymphocytes % (Manual) Monocytes % (Manual) Abs Neuts (Manual) Nucleated RBCs/100 WBC Differential Comment Toxic Vacuolation Platelet Estimate Platelet Morphology PT 40.1 H D 60.3 H D INR 4.0 6.0 H* APTT 99.7 H* D 105.3 H* Puncture Site Patient Temperature O2 Saturation ABG pH ABG pCO2 ABG pO2 ABG HCO3 ABG O2 Content ABG Base Excess ABG Methemoglobin Frankie Test Hemoglobin Carboxyhemoglobin O2 Delivery Device Vent Setting Inspired O2 Critical Value Sodium Potassium Chloride Carbon Dioxide Anion Gap BUN Creatinine Estimated GFR POC Glucose Random Glucose Calcium Prot Corrected Calcium Phosphorus Magnesium Total Bilirubin AST ALT Alkaline Phosphatase Ammonia Total Protein Albumin Urine Color Urine Clarity Urine pH Ur Specific [place] Urine Protein Urine Glucose (UA) Urine Ketones Urine Occult Blood Urine Nitrate Urine Bilirubin Urine Urobilinogen Ur Leukocyte Esterase Urine RBC Urine WBC Urine Bacteria Hyaline Casts Urine Mucus Urine Yeast Ur Yeast w Hyphae Micro UA Comment Ur Microscopic Review Urine Culture Comments St C. diff Tox Epid 027 Random Vancomycin C. difficile (PCR) Blood Type Antibody Screen Antibody Identification Antigen Identification Direct Antiglob Test MTS Gel Crossmatch Result Diagrams: 03/16/18 03:42 03/16/18 03:42 Microbiology: Microbiology 03/15/18 08:50 Gram Stain - Final Sputum - Tracheal Aspirate Sputum Culture - Preliminary Pseudomonas aeruginosa gram negative rods 03/15/18 09:54 Urine Culture - Preliminary Catheterized Urine Yeast - ID to follow 03/15/18 10:25 Aerobic Blood Culture - Preliminary Blood - Peripheral No growth in 1 day Anaerobic Blood Culture - Preliminary No growth in 1 day 03/15/18 10:30 Aerobic Blood Culture - Preliminary Blood - Peripheral No growth in 1 day Anaerobic Blood Culture - Preliminary No growth in 1 day Procedures: 02/05 left IJ placement 02/05 retrograde left heart cath, stent placement, IABP placement 02/05 intubated 02/19 extubated 02/23 reintubated 02/28 PEG tube placed 03/03 trach Assessment and Plan - Disease Oriented Problem List (1) Hypokalemia (2) Cardiogenic shock (3) CAD (coronary artery disease) (4) Ventricular fibrillation - Symptom Scale (1) Dyspnea 0-10 Scale: Unable to quantify (2) Pain 0-10 Scale: Unable to quantify (3) Debility 0-10 Scale: Unable to quantify Pertinent Non-Medical Issues: Psychosocial: On disability. 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 Spiritual: Hinduism, non-yarsani. Cleaning Supervisor has visited, they also have taoist site identification specialist visiting. Legal: Pt not capacitated to make medical decisions. Unclear if he will regain capacity. Per [place] statutes decision making would fall to as proxy. Ethical issues impacting care: none identified Important Contacts: Maria Isabel Tolentino [phone] sister Yvonne Valdivia [phone] Prognosis: 62 yo male s/p aortic valve replacement 2012 who suffered significant NSTEMI, EF <20% on presentation, troponins up to 32. Echo also showed global hypokinesis. Not clear how much of heart failure was present prior to NSTEMI. s /p heart cath, LAD stenting complicated by vasospasm, placement and subsequent removal of IABP. 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 He has had several runs of v fib and v tach requiring chest compressions, shocks. He has underlying COPD and was having activity intolerance prior to this event. He was reintubated. His prognosis for recovery is poor; chances of returning to baseline nearly nil. Unlikely he would tolerate rehab. He remains at high risk for continued complications including but not limited to recurrent arrhythmias, multi-organ injury. He is declining. He is hospice appropriate should goals be in line with comfort. Code Status: Alternative Code (intubation only) Plan: - LEGAL DECISON MAKER - Pt not capacitated to make medical decisions, unclear if he will regain this capacity. Per [place] statutes decision making would fall to as proxy. - CODE STATUS- full code - GOALS - Goals remain aggressive short of alt code no intubation. Discussion at bedside with . Provided medical update. Informed her of poor prognosis , worsening respiratory status. She is not ready for withdrawal or comfort measures. She believes he is getting better and that God will still work a miracle. - SYMPTOMS - * dyspnea - multifactorial - hx COPD, EF < 20%, class 4 heart failure. extubated 02/19, reintubated 02/23. fio2 60%. now with trach. lung sounds coarse. sputum growing gram neg rods. worsened respiratory status, tachypneic on vent, needing 80-100% Fio2. ID following. PRN duonebs, scheduled duonebs * pain - multifactorial, lines, ET tube, catheters, acute and chronic pain. sees pain mgmt, been on hydrocodone 10/325, reportedly same dosage and frequency for 6 years. unable to verbalize pain on my eval, no grimacing or TTP. has fentanyl drip 5mls/hr, PRN dilaudid 0.5mg q4h. on lyrica. deferring pain mgmt per ccm at this time. * debility/weakness - multifactorial. profoundly emaciated and ill appearing, per this is his usual appearance. reintubated, now with trach. s/p PEG tube placement, trach. cardiac function prob would not allow aggressive rehab. pt deconditioned, becoming weaker. - d/w RN, d/w CCM - Palliative care will continue to follow during hospital course as condition evolves, to assist patient/decision-maker with understanding of medical conditions, weighing benefits/burdens of treatment options, for clarification of goals of treatment. Additionally will assist with any symptoms of palliative concern Attestation Attestation: To help prompt me to consider important information that might be impacting today's encounter and assessment, information from prior notes written by myself or my colleagues may have been "brought forward" into today's note. My signature on this note, however, is an attestation that I personally performed the exam, history, and/or decision-making noted today, and, unless otherwise indicated, the interactions with patient, family, and staff as well as the review of records all occurred today. I also attest that the listed assessment and stated plan reflect my best clinical judgment today based on the combination of historical information, prior notes, and today's exam/ interactions. When time spent is documented, it refers only to time spent today by the signer, or if indicated, combined time spent today by collaborating physician/nurse practitioner.
--- NOTE | 2018-03-16 15:03 | P.PNCC ---
Subjective Subjective Remarks/Hospital Course: 62-year-old male with past medical history of [place] mechanical aortic valve (09/21/12 Dr. Gonzalez), on chronic anticoagulation with warfarin, atrial fibrillation postop from AVR , COPD on 2.5 L home O2, stroke in 2015 resulting in left-sided sensory deficits and neuropathy, osteoporosis with chronic low back pain. He was recently admitted to [facility] from 01/23 through 01/31/18 for MSSA bacteremia. It is believed that the original source of infection was a wound on his right index finger when electric drill slipped and created a puncture wound. He was discharged with right upper extremity PICC line receiving cefazolin 2 g IV every 8 hours and gentamicin 210 mg IV daily. He states that home health administered antibiotics at 17:00 and shortly thereafter he began having chills and rigors and sought medical attention at [facility]. He had no rash. Upon arrival, he was hypotensive in the low 80s. He was given 2 L S bolus but remained hypotensive so was started on Levophed. He then developed heart rate in the 140s, reportedly atrial flutter so he was started on Amiodarone drip in [place] and converted to sinus rhythm. He was transfused 2 units PRBC due to Hgb 9.3. His stool was nonbloody nonmelena but was Hemoccult positive. He was given zosyn and vancomycin. Critical care medicine was then contacted and accepted patient for transfer to [facility]. He denies tenderness/redness/drainage at PICC site. Aside from mechanical aortic valve, he has no other hardware or indwelling devices. He denies headache, cough, dysuria. He has had a few loose stools at home, but stools have sometimes been formed. He denies chest pain, does report some SOB. EKG at [place] had marked inferolateral ischemic changes. Obtained EKG upon arrival to [facility] which is improved. SUBJ 02/05: Patient remains critical ill appearing, complaints of chest tightness but denies pain. Remains on 8 mcg/min of Levophed to maintain map about 65. However increasing shortness of breath. Chest x-ray shows increasing pulmonary edema. Troponin was 27.5 currently on IV heparin therapeutic. Cardiology consult is pending at this time. I will stop on maintenance fluids give 40 mg IV Lasix and IV albumin 25 g 1. Patient is very critical patient and updated at the bedside 02/06: to director of cardiac cath lab last night for [facility] with LAD stent complicated by vasospasm of the LAD. IABP placed. patient emergently intubated for acute hypoxic respiratory failure secondary to cardiogenic shock and pulmonary edema. started on milrinone at 0.375 mcg/kg/min and levophed. bumex drip started. remains critically ill. 02/07: Remains critically ill remains on Levophed and milrinone. Currently diuresing well with Bumex drip. IABP in place management per cardiology-good waveform and augmentation. Chest x-ray shows adequate positioning of IABP, diffuse bilateral pulmonary edema 02/08: Remains critical but showing some signs of improvement. Diuresing very well on Bumex infusion. Remains on Levophed and milrinone. IABP one-to-one with good augmentation management per cardiology. Chest x-ray shows improving edema but with persistent bilateral effusions. Will initiate weaning trials if tolerated 02/09: Still remains on pressors, unable to wean Levophed below 2 mcg/min. Milrinone currently on 0.375 mcg/kg/min. IABP removed yesterday. On sedation hold patient wakes up but remains lethargic. Weakly squeezes hand. Urine output excellent on Bumex, 4 L output in 24 hours. Will attempt CPAP today 02/10: Multiple episodes of V. fib V. tach arrest yesterday morning. Successfully resuscitated. Yesterday night had two-minute V. fib arrest return of spontaneous circulation in sinus rhythm after DC cardioversion 1. Currently remains on milrinone and low-dose Levophed. I will try to wean off Levophed introduce low-dose beta-rasheed due to recurrent arrhythmia. Keep potassium more than 4 magnesium more than 2 02/11: Patient still critical and cardiogenic shock requiring Levophed and milrinone. Urine output improved with adding Diamox. Approximately 2 L urine output in 24 hours, creatinine remained stable. Oxygenation slightly improved FiO2 reduced to 70% now. Overall prognosis remains poor family wants to continue aggressive care 02/12: Remains critical but slight improvement in oxygenation. But continues to require Levophed and milrinone the low-dose. Urine output remains adequate. Chest x-ray shows interval improvement. Creatinine remains stable to slightly improved. Add IV albumin to improve blood pressure and to promote diuresis. 02/13 Patient remains intubated and sedated with Versed and fentanyl. Afebrile, off Levophed remains on Milrinone and Heparin drip. 02/14: Hypothermic overnight. Remains on milrinone and heparin drips. Tolerating tube feeds at 20 cc now. Positive BM. No changes neurologically 02/15 Patient remains sedated with Versed and Fentanyl drips, on Milrinone 0.5. 02/16 Patient remains intubated sedated with Versed and Fentanyl infusion. On Milrinone and Heparin drips. CT brain yesterday showed no acute findings. Afebrile. 02/17 Patient remains sedated and intubated. Afebrile, On Milrinone and Heparin drip. 02/18: Remains critical continues to require milrinone. Urine output adequate. Chest x-ray shows bilateral infiltrate effusion. CT chest to better define effusions and infiltrate. Increase Bumex to 1 mg every 8 hours. Patient is persistently weak, will attempt SBT unlikely to be successfully extubated at this time. Most likely will need tracheostomy if family desires aggressive care 02/19: Remains intubated sedated with Versed and fentanyl. Transition to Precedex to facilitate weaning trials. Patient responding slightly more to verbal command, appears to track even though not following commands. Creatinine slightly increased with increased diuresis. Chest x-ray shows improved pleural effusions. CT chest yesterday did not show significant effusion but basilar consolidation. 02/20 Patient was extubated yesterday on 10L simple mask, on Precdex, Heparin and Milrinone drips. Tmax 101.1 yesterday 02/21: Febrile. Currently on 5 L nasal cannula. Continues on heparin drip with 500 units an hour. Received bumetanide 1 mg 1 today. Positive BM 02/22: Remains on 5 L nasal cannula. Remains on heparin drip. No changes neurologically remains medically stable. 02/23: Intubated early this morning secondary to acute respiratory failure. Blood pressure marginal likely due to sedation. Ejection fraction less than 20% . Discussed with at bedside. She was to proceed with tracheostomy in PEG tube placement. We will plan for within the next few days. 02/24: Remains sedated, orally intubated on mechanical ventilation. 02/25: Remains sedated, orally intubated on mechanical ventilation. Worsening renal function noted. Check UA, urine sodium and creatinine. Ordered Kayexalate for hyperkalemia and nephrology consulted. 02/26: Sedated, arousable, orally intubated on mechanical ventilation. Will hold Plavix for planned tracheostomy and PEG tube placement. Remains on heparin for anticoagulation. 02/27: Drowsy, arousable, orally intubated on mechanical ventilation. Awaiting tracheostomy and PEG tube placement. 02/28: Drowsy, arousable, remains orally intubated on mechanical ventilation. PEG tube scheduled for today. 03/01: Drowsy, arousable, remains orally intubated on mechanical ventilation. Underwent PEG tube placement on 02/28. Worsening thrombocytopenia noted and now down to 50,000. Will continue holding Plavix and heparin. Check HIT screen and consult hematology. Awaiting tracheostomy 03/02: Drowsy, arousable, remains orally intubated on mechanical vent relation. Hematology consult noted. 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 03/03: Intubated remains heavily sedated. Was unable to wean off the ventilator , became hypoxemic on CPAP yesterday. 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 Will transfuse 3 packed units of platelets prior to tracheostomy planned for 11 AM today. Platelet count 49,000 03/04 Trached yesterday. Had high residuals earlier today (500 mL) and tube feeds placed on hold. KUB unremarkable. Given reglan, now residual is 10 so resuming tube feeds. On CPAP via trach. Remains sedated on fentanyl and versed, will wean. 03/05 Bleeding at trach site overnight, argatroban was placed on hold. Hgb stable 7.4, platelet count 70k. Surgicell has been ordered but has not yet been applied. Off versed, fentanyl drip still running 50 mcg. He is more alert today , communicates his need to have his mouth suctioned. 03/06: No events over the night. T-max of 98.7. Urine output greater than 4 L over the last 24 hours. 03/07: Patient remains afebrile, with a T-max of 98.5. Urine output 2350 mL's over the last 24 hours. No acute events over the night. Patient is currently on CPAP trial 04/21 with respiratory rate in the mid to high teens with tidal volumes 3-400, comfortable. 03/08: No events over the night. Patient tolerated T piece yesterday and he was placed back on CPAP last night. This morning he is back on T piece. He is easily arousable and following some commands. He is complaining of back pain. T-max of 99.2, urine output of 2450 mL's over the last 24 hours. 03/09: Patient tolerated T piece yesterday and he was placed back on CPAP at night. This morning he is sleeping, easily arousable. No other events over the night. T-max of 99.2. I/O 1100/1000. Still having significant amount of diarrhea. 03/10: No events over the night. Patient currently on CPAP 10/5 doing well. T- max of 99.4. I/O 3233/2600. No bleeding upon suction. Still having diarrhea. He is awake, alert, complains of back pain. 03/11: No events over the night. Patient was on CPAP 10/5 over the night. Being switched to T-piece this morning. He is resting comfortable, in no distress. T-max of 98.7 over the last 24 hours. Subjective: 03/12: Afebrile. Remains on T piece 40% and tolerating well. Positive BM. Tolerating tube feeds. Arousable. 03/13 Patient remains on ventilator, tolerated TP's x 4 hrs yesterday. Afebrile. On Argatroban drip. 03/14 Patient was on TP's all day placed on CPAP overnight. Afebrile. Remains on Argatroban drip. 03/15 Patient is on ventilator via trach. T102.2 yesterday 03/16: Worsening respiratory status overnight. Switch to APRV mode mechanical ventilation 100% FiO2. Blood pressure borderline. Sedatives I asked about them that she appears tachypneic on mechanical ventilation. Objective Vital Signs / I&O: Vital Signs 03/15/18 15:00 03/15/18 15:15 03/15/18 15:30 Temperature Pulse Rate 91 H 90 93 H Respiratory Rate 25 H 26 H 33 H Blood Pressure 99/61 L 98/63 L 99/66 L Pulse Oximetry 78 L 86 L 81 L 03/15/18 15:41 03/15/18 15:45 03/15/18 16:00 Temperature 99 F Pulse Rate 88 82 Respiratory Rate 26 H 24 24 Blood Pressure 99/67 L 92/64 L Pulse Oximetry 99 98 73 L 03/15/18 16:15 03/15/18 16:30 03/15/18 16:45 Temperature Pulse Rate 80 82 83 Respiratory Rate 24 21 22 Blood Pressure 81/52 L 85/56 L 86/53 L Pulse Oximetry 100 96 88 L 03/15/18 17:00 03/15/18 17:15 03/15/18 17:30 Temperature Pulse Rate 79 90 77 Respiratory Rate 22 24 22 Blood Pressure 88/56 L 98/65 L 82/52 L Pulse Oximetry 84 L 73 L 76 L 03/15/18 17:45 03/15/18 18:00 03/15/18 18:01 Temperature Pulse Rate 84 92 H 92 H Respiratory Rate 22 38 H 31 H Blood Pressure 89/59 L 109/62 Pulse Oximetry 66 L 85 L 82 L 03/15/18 18:15 03/15/18 20:00 03/15/18 20:17 Temperature 99 F Pulse Rate 88 90 Respiratory Rate 24 30 H 31 H Blood Pressure 99/56 L 110/61 Pulse Oximetry 100 100 97 03/15/18 20:45 03/15/18 21:38 03/15/18 21:43 Temperature 99.7 F H Pulse Rate 104 H 97 H Respiratory Rate 35 H 35 H 36 H Blood Pressure 121/62 Pulse Oximetry 977 H 03/15/18 22:00 03/15/18 22:40 03/15/18 23:49 Temperature Pulse Rate 99 H 98 H Respiratory Rate 35 H 40 H Blood Pressure Pulse Oximetry 75 L 03/15/18 23:55 03/16/18 00:00 03/16/18 01:15 Temperature 98.7 F Pulse Rate 101 H Respiratory Rate 36 H 30 H 27 H Blood Pressure 133/77 Pulse Oximetry 90 L 100 03/16/18 02:00 03/16/18 03:55 03/16/18 04:00 Temperature 99.1 F Pulse Rate 96 H 102 H 111 H Respiratory Rate 50 H 29 H Blood Pressure 101/63 Pulse Oximetry 100 03/16/18 04:37 03/16/18 06:00 03/16/18 08:00 Temperature 99 F Pulse Rate 109 H 97 H Respiratory Rate 36 H 31 H Blood Pressure 188/77 H Pulse Oximetry 96 03/16/18 10:00 03/16/18 12:00 03/16/18 12:13 Temperature 98.9 F Pulse Rate 89 93 H Respiratory Rate 36 H 32 H Blood Pressure 80/53 L Pulse Oximetry 100 Intake & Output 03/15/18 03/16/18 03/16/18 18:59 06:59 18:59 Intake Total 1208 / 1208 2042.5 / 2042.5 500 / 500 Output Total 1760 / 1760 800 / 800 Balance -552 / -552 1242.5 / 1242.5 500 / 500 Weight 69.5 kg Intake: IV 562.5 / 562.5 500 / 500 Maxipime Inj 2,000 MG In NS Inj 200 / 200 100 ML @ 200 mls/hr IV.SIG Q8H ADRIEN Rx#:[id number] Mycamine Inj 150 MG In NS Inj 100 / 100 100 ML @ 100 mls/hr IV.SIG Q24H ADRIEN Rx#:[id number] NS Inj 500 ML @ 999 mls/hr IV. 500 / 500 SIG .Q31M ADRIEN Rx#:[id number] Vancomycin Inj 1,250 MG In NS 262.5 / 262.5 Inj 250 ML @ 250 mls/hr IV.SIG Q24H ADRIEN Rx#:[id number] Tube Feeding 428 / 428 500 / 500 Tube Irrigant 180 / 180 180 / 180 Water Bolus Amount 600 / 600 400 / 400 Intake (Blood Product) Amt 400 / 400 Rbc As-3 Leukoreduced Unit 400 / 400 [id number] Output: Stool 260 / 260 500 / 500 Urine Amount (Catheter) 1500 / 1500 300 / 300 Indwelling Urethral Catheter 1500 / 1500 300 / 300 Other: Date of Last Bowel Movement 03/15/18 03/15/18 03/15/18 Result Diagrams: 03/16/18 03:42 03/16/18 03:42 Objective Remarks: GENERAL: 62-year-old gentleman, awake, alert, ill-appearing, on vent. HEENT: Pupils are equal and reactive, sclera anicteric. Trach in place. No JVD. CARDIOVASCULAR: Regular heart sounds, no murmurs appreciated. RESPIRATORY: On mechanical ventilation via tracheostomy, APRV mode, 90% FiO2. scattered coarse breath sounds bilateral. No wheezes. Good air entry. GASTROINTESTINAL: Abdomen soft, not tender, not distended, bowel sounds are present. PEG in in place. MUSCULOSKELETAL: Extremities with bilateral trace lower extremity edema. Peripheral pulses are present. NEURO: On ventilator via trach Assessment and Plan - Assessment and Plan Plan: NEURO/PSYCH: History of stroke in 2015 Neuropathy left upper and lower extremity Chronic low back pain On fentanyl GTT, monitor neuro status On ASA 81 mg daily. Continue pregabalin 150 mg p.o. twice daily. Holding duloxetine 90 mg p.o. daily. 02/15 CT brain: No acute findings. 02/15 EEG : Encephalopathy, no epileptiform activity MRI brain 02/16: New small focal acute infarction right cerebral vertex and also left cerebral vertex. Neuro follow up RESP: Acute hypoxic respiratory failure -unchanged, on minimal O2 requirements, tolerating T piece during daytime and CPAP at night COPD on 2.5 L home O2 Prior tobacco abuse Bilateral pleural effusions Perc trach 03/03. Continue with vent support keep sats >92%. Switched to APRV mode mechanical ventilation on 03/15 for worsening respiratory status. T-piece during daytime as garrett and CPAP at night as tolerated Albuterol/ipratropium aerosols every 6 hours with albuterol aerosols every 2 hours as needed for dyspnea Vent bundle, On Solumederol 20mg IV daily CV: V. tach/V. fib arrest -resolved NSTEMI Cardiogenic shock -resolved Acute systolic heart failure Atrial fibrillation with RVR [place] mechanical aortic valve (09/21/12 Dr. Gonzalez) s/p Tricuspid annuloplasty Monitor HR and BP keep MAP>65mmHg On amiodarone 400mg BID, Continue aspirin 81 mg daily Clopidogrel is on hold since 02/26 for trach and PEG and will resume when plt > 80 per hematology Continue atorvastatin 40 mg nightly. s/p cath And PCI -proximal LAD and large diagonal 90% stenosis, 2 BMS stent 02/05, mid LAD vasospasm post PCI Off IABP 02/08/18 [place] 01/23/18no vegetation. Normal aortic mechanical valve with trivial aortic insufficiency. Tricuspid annuloplasty. 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 with free water 300 cc every 6 hours Status post PEG tube placement Lansoprazole for stress ulcer prophylactic Had normal EGD on 10/21/17 FEN/RENAL: Acute kidney injury -creatinine is improved urine output is appropriate Hypopotassemia BPH Hypomagnesemia Hypo-phosphatemia Continue free water at 300 cc every 6 hours Monitor renal function, I/O's, creatinine slowly improving. 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 difficile colitis -still having diarrhea Funguria On p.o. Vanco, Off Cefazolin Infectious disease following. 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 Continue holding Plavix and heparin. 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 Monitor Coags No bleeding from trach site ENDO: SSI to maintain euglycemia PROPH: on argatroban. Protonix for stress ulcer prophylaxis ACCESS: PIV in place. Palliative care is following. Patient made alternate CODE STATUS. Prognosis appears extremely poor. Palliative care and discussion with patient' s regarding plan of care. Argatroban held for possible central venous catheter placement.
--- NOTE | 2018-03-16 15:47 | MG ---
cc: Ajay Person MD, PhD TEST NUMBER: [id number] TECHNIQUE: A 17-channel EEG. DESCRIPTION: Background rhythm reveals generalized slowing in the delta frequency at 3-4 Hz. Amplitude is 30-50 microvolts. No lateralizing features were identified. No epileptiform features are seen. There is some rare muscle artifact present. Photic stimulation was done with no significant driving response. INTERPRETATION: Abnormal study consistent with a diffuse encephalopathy. Ajay Person MD, PhD MICHAEL/ct , 03:33 PM , 03:38 PM
[2018-03-16] MEDS: Vancomycin Inj 1,250 MG in Sodium Chlor 0.9% Inj 250 ML IV.SIG SCH (18:42)
[2018-03-16] MEDS: Vasopressin Inj 40 UNIT in Dextrose 5% in Water Inj 98 ML IV.CONT PRN ×4 (20:14→22:52)
[2018-03-17] MEDS: Oral Hygiene Kit OROPHARYNG SCH ×3 (00:23→14:50)
[2018-03-17] MEDS: Insulin NovoLOG Aspart Correctional Sugar Inj SQ SCH ×3 (00:23→13:14)
[2018-03-17 00:34] VITALS: BP 87/69; TEMP 97.6
[2018-03-17 05:36] LABS: Albumin 1.4 g/dL (3.4-5.0); Calcium 6.5 mg/dL (8.5-10.1); Carbon Dioxide 11.4 meq/L (21.0-32.0); Magnesium 2.2 mg/dL (1.5-2.5); Phosphorus 7.3 mg/dL (2.5-4.9); Potassium 4.9 meq/L (3.5-5.1)
[2018-03-17 06:11] LABS: Baso % (Auto) 0.1 % (0.0-2.0); Eos % (Auto) 0.4 % (0.0-4.0); Hematocrit 35.6 % (39.0-51.0); Hemoglobin 11.2 gm/dL (13.0-17.0); Lymph # (Auto) 0.4 th/mm3 (1.0-4.8); Mean Corpuscular HGB Conc 31.6 % (32.0-36.0); Mean Corpuscular Hemoglobin 31.5 pg (27.0-34.0); Mean Corpuscular Volume 99.8 fL (80.0-100.0); Mean Platelet Volume 11.5 fL (7.0-11.0); Mono # (Auto) 0.1 th/mm3 (0.0-0.9); Neut # (Auto) 4.5 th/mm3 (1.8-7.7); Neut % (Auto) 90.5 % (16.0-70.0); Platelet Count 115 th/mm3 (150-450); Red Blood Count 3.56 mil/mm3 (4.50-5.90)
[2018-03-17 06:12] VITALS: PULSE 91
--- NOTE | 2018-03-17 07:02 | P.PNCC ---
Subjective Subjective Remarks/Hospital Course: 62-year-old male with past medical history of [place] mechanical aortic valve (09/21/12 Dr. Gonzalez), on chronic anticoagulation with warfarin, atrial fibrillation postop from AVR , COPD on 2.5 L home O2, stroke in 2015 resulting in left-sided sensory deficits and neuropathy, osteoporosis with chronic low back pain. He was recently admitted to [facility] from 01/23 through 01/31/18 for MSSA bacteremia. It is believed that the original source of infection was a wound on his right index finger when electric drill slipped and created a puncture wound. He was discharged with right upper extremity PICC line receiving cefazolin 2 g IV every 8 hours and gentamicin 210 mg IV daily. He states that home health administered antibiotics at 17:00 and shortly thereafter he began having chills and rigors and sought medical attention at [facility]. He had no rash. Upon arrival, he was hypotensive in the low 80s. He was given 2 L S bolus but remained hypotensive so was started on Levophed. He then developed heart rate in the 140s, reportedly atrial flutter so he was started on Amiodarone drip in [place] and converted to sinus rhythm. He was transfused 2 units PRBC due to Hgb 9.3. His stool was nonbloody nonmelena but was Hemoccult positive. He was given zosyn and vancomycin. Critical care medicine was then contacted and accepted patient for transfer to [facility]. He denies tenderness/redness/drainage at PICC site. Aside from mechanical aortic valve, he has no other hardware or indwelling devices. He denies headache, cough, dysuria. He has had a few loose stools at home, but stools have sometimes been formed. He denies chest pain, does report some SOB. EKG at [place] had marked inferolateral ischemic changes. Obtained EKG upon arrival to [facility] which is improved. SUBJ 02/05: Patient remains critical ill appearing, complaints of chest tightness but denies pain. Remains on 8 mcg/min of Levophed to maintain map about 65. However increasing shortness of breath. Chest x-ray shows increasing pulmonary edema. Troponin was 27.5 currently on IV heparin therapeutic. Cardiology consult is pending at this time. I will stop on maintenance fluids give 40 mg IV Lasix and IV albumin 25 g 1. Patient is very critical patient and updated at the bedside 02/06: to slab inspector last night for [facility] with LAD stent complicated by vasospasm of the LAD. IABP placed. patient emergently intubated for acute hypoxic respiratory failure secondary to cardiogenic shock and pulmonary edema. started on milrinone at 0.375 mcg/kg/min and levophed. bumex drip started. remains critically ill. 02/07: Remains critically ill remains on Levophed and milrinone. Currently diuresing well with Bumex drip. IABP in place management per cardiology-good waveform and augmentation. Chest x-ray shows adequate positioning of IABP, diffuse bilateral pulmonary edema 02/08: Remains critical but showing some signs of improvement. Diuresing very well on Bumex infusion. Remains on Levophed and milrinone. IABP one-to-one with good augmentation management per cardiology. Chest x-ray shows improving edema but with persistent bilateral effusions. Will initiate weaning trials if tolerated 02/09: Still remains on pressors, unable to wean Levophed below 2 mcg/min. Milrinone currently on 0.375 mcg/kg/min. IABP removed yesterday. On sedation hold patient wakes up but remains lethargic. Weakly squeezes hand. Urine output excellent on Bumex, 4 L output in 24 hours. Will attempt CPAP today 02/10: Multiple episodes of V. fib V. tach arrest yesterday morning. Successfully resuscitated. Yesterday night had two-minute V. fib arrest return of spontaneous circulation in sinus rhythm after DC cardioversion 1. Currently remains on milrinone and low-dose Levophed. I will try to wean off Levophed introduce low-dose beta-rasheed due to recurrent arrhythmia. Keep potassium more than 4 magnesium more than 2 02/11: Patient still critical and cardiogenic shock requiring Levophed and milrinone. Urine output improved with adding Diamox. Approximately 2 L urine output in 24 hours, creatinine remained stable. Oxygenation slightly improved FiO2 reduced to 70% now. Overall prognosis remains poor family wants to continue aggressive care 02/12: Remains critical but slight improvement in oxygenation. But continues to require Levophed and milrinone the low-dose. Urine output remains adequate. Chest x-ray shows interval improvement. Creatinine remains stable to slightly improved. Add IV albumin to improve blood pressure and to promote diuresis. 02/13 Patient remains intubated and sedated with Versed and fentanyl. Afebrile, off Levophed remains on Milrinone and Heparin drip. 02/14: Hypothermic overnight. Remains on milrinone and heparin drips. Tolerating tube feeds at 20 cc now. Positive BM. No changes neurologically 02/15 Patient remains sedated with Versed and Fentanyl drips, on Milrinone 0.5. 02/16 Patient remains intubated sedated with Versed and Fentanyl infusion. On Milrinone and Heparin drips. CT brain yesterday showed no acute findings. Afebrile. 02/17 Patient remains sedated and intubated. Afebrile, On Milrinone and Heparin drip. 02/18: Remains critical continues to require milrinone. Urine output adequate. Chest x-ray shows bilateral infiltrate effusion. CT chest to better define effusions and infiltrate. Increase Bumex to 1 mg every 8 hours. Patient is persistently weak, will attempt SBT unlikely to be successfully extubated at this time. Most likely will need tracheostomy if family desires aggressive care 02/19: Remains intubated sedated with Versed and fentanyl. Transition to Precedex to facilitate weaning trials. Patient responding slightly more to verbal command, appears to track even though not following commands. Creatinine slightly increased with increased diuresis. Chest x-ray shows improved pleural effusions. CT chest yesterday did not show significant effusion but basilar consolidation. 02/20 Patient was extubated yesterday on 10L simple mask, on Precdex, Heparin and Milrinone drips. Tmax 101.1 yesterday 02/21: Febrile. Currently on 5 L nasal cannula. Continues on heparin drip with 500 units an hour. Received bumetanide 1 mg 1 today. Positive BM 02/22: Remains on 5 L nasal cannula. Remains on heparin drip. No changes neurologically remains medically stable. 02/23: Intubated early this morning secondary to acute respiratory failure. Blood pressure marginal likely due to sedation. Ejection fraction less than 20% . Discussed with at bedside. She was to proceed with tracheostomy in PEG tube placement. We will plan for within the next few days. 02/24: Remains sedated, orally intubated on mechanical ventilation. 02/25: Remains sedated, orally intubated on mechanical ventilation. Worsening renal function noted. Check UA, urine sodium and creatinine. Ordered Kayexalate for hyperkalemia and nephrology consulted. 02/26: Sedated, arousable, orally intubated on mechanical ventilation. Will hold Plavix for planned tracheostomy and PEG tube placement. Remains on heparin for anticoagulation. 02/27: Drowsy, arousable, orally intubated on mechanical ventilation. Awaiting tracheostomy and PEG tube placement. 02/28: Drowsy, arousable, remains orally intubated on mechanical ventilation. PEG tube scheduled for today. 03/01: Drowsy, arousable, remains orally intubated on mechanical ventilation. Underwent PEG tube placement on 02/28. Worsening thrombocytopenia noted and now down to 50,000. Will continue holding Plavix and heparin. Check HIT screen and consult hematology. Awaiting tracheostomy 03/02: Drowsy, arousable, remains orally intubated on mechanical vent relation. Hematology consult noted. 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 03/03: Intubated remains heavily sedated. Was unable to wean off the ventilator , became hypoxemic on CPAP yesterday. 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 Will transfuse 3 packed units of platelets prior to tracheostomy planned for 11 AM today. Platelet count 49,000 03/04 Trached yesterday. Had high residuals earlier today (500 mL) and tube feeds placed on hold. KUB unremarkable. Given reglan, now residual is 10 so resuming tube feeds. On CPAP via trach. Remains sedated on fentanyl and versed, will wean. 03/05 Bleeding at trach site overnight, argatroban was placed on hold. Hgb stable 7.4, platelet count 70k. Surgicell has been ordered but has not yet been applied. Off versed, fentanyl drip still running 50 mcg. He is more alert today , communicates his need to have his mouth suctioned. 03/06: No events over the night. T-max of 98.7. Urine output greater than 4 L over the last 24 hours. 03/07: Patient remains afebrile, with a T-max of 98.5. Urine output 2350 mL's over the last 24 hours. No acute events over the night. Patient is currently on CPAP trial 04/21 with respiratory rate in the mid to high teens with tidal volumes 3-400, comfortable. 03/08: No events over the night. Patient tolerated T piece yesterday and he was placed back on CPAP last night. This morning he is back on T piece. He is easily arousable and following some commands. He is complaining of back pain. T-max of 99.2, urine output of 2450 mL's over the last 24 hours. 03/09: Patient tolerated T piece yesterday and he was placed back on CPAP at night. This morning he is sleeping, easily arousable. No other events over the night. T-max of 99.2. I/O 1100/1000. Still having significant amount of diarrhea. 03/10: No events over the night. Patient currently on CPAP 10/5 doing well. T- max of 99.4. I/O 3233/2600. No bleeding upon suction. Still having diarrhea. He is awake, alert, complains of back pain. 03/11: No events over the night. Patient was on CPAP 10/5 over the night. Being switched to T-piece this morning. He is resting comfortable, in no distress. T-max of 98.7 over the last 24 hours. Subjective: 03/12: Afebrile. Remains on T piece 40% and tolerating well. Positive BM. Tolerating tube feeds. Arousable. 03/13 Patient remains on ventilator, tolerated TP's x 4 hrs yesterday. Afebrile. On Argatroban drip. 03/14 Patient was on TP's all day placed on CPAP overnight. Afebrile. Remains on Argatroban drip. 03/15 Patient is on ventilator via trach. T102.2 yesterday 03/16: Worsening respiratory status overnight. Switch to APRV mode mechanical ventilation 100% FiO2. Blood pressure borderline. Sedatives I asked about them that she appears tachypneic on mechanical ventilation. 03/17 Patient is sedated with Versed and Fentanyl infusions, on Levophed 12 mics and Vasopressin 0.04. Off Argatroban. Renal function worse with Cr: 1.93 from 0.94 Objective Vital Signs / I&O: Vital Signs 03/16/18 08:00 03/16/18 10:00 03/16/18 11:04 Temperature 99 F Pulse Rate 97 H 89 93 H Respiratory Rate 31 H 29 H Blood Pressure 188/77 H 85/49 L Pulse Oximetry 100 03/16/18 11:45 03/16/18 12:00 03/16/18 12:01 Temperature 98.9 F Pulse Rate 93 H 93 H 93 H Respiratory Rate 36 H 36 H 36 H Blood Pressure 75/51 L 80/53 L 80/53 L Pulse Oximetry 99 100 98 03/16/18 12:13 03/16/18 12:51 03/16/18 13:00 Temperature Pulse Rate 87 87 Respiratory Rate 32 H 29 H 34 H Blood Pressure 72/50 L Pulse Oximetry 100 99 98 03/16/18 13:01 03/16/18 13:54 03/16/18 14:00 Temperature Pulse Rate 87 83 83 Respiratory Rate 35 H 34 H 34 H Blood Pressure 87/48 L 134/69 Pulse Oximetry 98 94 L 99 03/16/18 15:00 03/16/18 16:00 03/16/18 16:30 Temperature 98.5 F Pulse Rate 80 80 Respiratory Rate 31 H 31 H 33 H Blood Pressure 97/57 L Pulse Oximetry 98 100 90 L 03/16/18 16:35 03/16/18 16:55 03/16/18 17:00 Temperature Pulse Rate 80 80 80 Respiratory Rate 32 H 24 28 H Blood Pressure 47/32 L Pulse Oximetry 70 L 03/16/18 17:07 03/16/18 17:15 03/16/18 17:30 Temperature Pulse Rate 79 85 87 Respiratory Rate 32 H 24 28 H Blood Pressure 130/67 125/58 L 97/57 L Pulse Oximetry 76 L 98 97 03/16/18 17:47 03/16/18 18:00 03/16/18 18:15 Temperature Pulse Rate 89 89 87 Respiratory Rate 32 H 31 H 23 Blood Pressure 114/70 115/71 110/70 Pulse Oximetry 97 97 96 03/16/18 18:30 03/16/18 18:45 03/16/18 19:00 Temperature Pulse Rate 85 83 82 Respiratory Rate 24 21 21 Blood Pressure 95/66 L 93/66 L Pulse Oximetry 96 96 96 03/16/18 19:01 03/16/18 19:15 03/16/18 19:30 Temperature Pulse Rate 82 81 80 Respiratory Rate 23 27 H 22 Blood Pressure 108/74 101/53 L 98/58 L Pulse Oximetry 96 95 96 03/16/18 19:45 03/16/18 19:55 03/16/18 20:00 Temperature 97 F L Pulse Rate 81 82 Respiratory Rate 24 33 H 21 Blood Pressure 97/65 L Pulse Oximetry 96 96 98 03/16/18 20:01 03/16/18 20:02 03/16/18 20:15 Temperature Pulse Rate 83 83 81 Respiratory Rate 24 26 H 26 H Blood Pressure 112/6 L 104/51 L 100/64 Pulse Oximetry 97 96 97 03/16/18 20:30 03/16/18 20:45 03/16/18 21:00 Temperature Pulse Rate 82 85 84 Respiratory Rate 25 H 28 H 27 H Blood Pressure 101/65 100/58 L 98/57 L Pulse Oximetry 97 98 94 L 03/16/18 21:15 03/16/18 21:30 03/16/18 21:45 Temperature Pulse Rate 85 85 84 Respiratory Rate 29 H 28 H 28 H Blood Pressure 98/55 L 100/61 103/65 Pulse Oximetry 94 L 94 L 94 L 03/16/18 22:00 03/16/18 22:15 03/16/18 22:25 Temperature Pulse Rate 84 84 Respiratory Rate 28 H 28 H 35 H Blood Pressure 99/64 L 99/64 L Pulse Oximetry 95 95 96 03/16/18 22:30 03/16/18 22:45 03/16/18 23:00 Temperature Pulse Rate 83 84 86 Respiratory Rate 27 H 27 H 26 H Blood Pressure 101/61 93/62 L 137/86 Pulse Oximetry 96 95 96 03/16/18 23:15 03/16/18 23:26 03/16/18 23:30 Temperature Pulse Rate 86 86 87 Respiratory Rate 27 H 40 H 14 Blood Pressure 105/55 L 97/52 L Pulse Oximetry 96 96 03/16/18 23:45 03/17/18 00:00 03/17/18 00:15 Temperature 97.6 F Pulse Rate 87 87 87 Respiratory Rate 15 21 22 Blood Pressure 90/58 L 90/59 L 93/56 L Pulse Oximetry 96 96 96 03/17/18 00:30 03/17/18 01:50 03/17/18 02:00 Temperature Pulse Rate 92 H 89 Respiratory Rate 10 L 35 H Blood Pressure 87/69 L Pulse Oximetry 96 95 03/17/18 03:26 03/17/18 04:00 03/17/18 05:04 Temperature Pulse Rate 89 89 Respiratory Rate 33 H 31 H Blood Pressure Pulse Oximetry 95 03/17/18 06:00 Temperature Pulse Rate 91 H Respiratory Rate Blood Pressure Pulse Oximetry Intake & Output 03/16/18 03/16/18 03/17/18 06:59 18:59 06:59 Intake Total 2042.5 / 2042.5 600 / 600 972.8 / 972.8 Output Total 800 / 800 250 / 250 1050 / 1050 Balance 1242.5 / 1242.5 350 / 350 -77.2 / -77.2 Weight 69.5 kg 72 kg Intake: IV 562.5 / 562.5 600 / 600 852.8 / 852.8 Versed Inj 50 mg In 50 ml @ 2 23.5 / 23.5 MG/HR 2 mls/hr IV.CONT TITRATE PRN Rx#:[id number] Pitressin Inj 40 UNIT In D5W 220 / 220 Inj 98 ML @ 0.01 UNITS/MIN 1.5 mls/hr IV.CONT TITRATE PRN Rx#: [id number] Maxipime Inj 2,000 MG In NS Inj 200 / 200 100 / 100 100 / 100 100 ML @ 200 mls/hr IV.SIG Q8H ADRIEN Rx#:[id number] Mycamine Inj 150 MG In NS Inj 100 / 100 100 / 100 100 ML @ 100 mls/hr IV.SIG Q24H ADRIEN Rx#:[id number] Levophed-Dextrose 4 mg/250 ml 352 / 352 Drip 4 mg In 250 ml @ 2 MCG/MIN 7.5 mls/hr IV.SIG TITRATE PRN Rx#:[id number] NS Inj 500 ML @ 999 mls/hr IV. 500 / 500 SIG .Q31M ADRIEN Rx#:[id number] Vancomycin Inj 1,250 MG In NS 262.5 / 262.5 Inj 250 ML @ 250 mls/hr IV.SIG Q24H ADRIEN Rx#:[id number] fentaNYL 10 mcg/mL Premix Drip 57.3 / 57.3 2,500 mcg In 250 ml @ 50 MCG/HR 5 mls/hr IV.SIG TITRATE PRN Rx #:[id number] Tube Feeding 500 / 500 0 / 0 Tube Irrigant 180 / 180 Water Bolus Amount 400 / 400 120 / 120 Intake (Blood Product) Amt 400 / 400 Rbc As-3 Leukoreduced Unit 400 / 400 [id number] Output: Urine 150 / 150 Stool 500 / 500 50 / 50 700 / 700 Urine Amount (Catheter) 300 / 300 100 / 100 Indwelling Urethral Catheter 300 / 300 100 / 100 Gastric Drainage 100 / 100 200 / 200 Left Upper Quadrant 100 / 100 Right Nare Nasogastric Tube 200 / 200 Other: Date of Last Bowel Movement 03/15/18 03/15/18 03/17/18 Result Diagrams: 03/17/18 04:51 03/17/18 04:51 Other Results: Laboratory Results - last 12 hr 03/16/18 03/17/18 03/17/18 23:10 04:51 05:27 Sodium 138 Potassium 4.9 D Chloride 106 Carbon Dioxide 11.4 L D Anion Gap 21 H BUN 52 H Creatinine 1.93 H Estimated GFR 35 L POC Glucose 133 H 122 H Random Glucose 126 H Calcium 6.5 L* Phosphorus 7.3 H D Magnesium 2.2 D Albumin 1.4 L Imaging: Abdomen/Bladder Ultrasound 02/05/18 00:00 CONCLUSION: 1. No evidence of hydronephrosis. 2. The echogenicity of the kidneys is equal to that of the liver which can be seen with medical renal disease. 3. Simple cyst in right kidney. 4. Suboptimal visualization of the left kidney. 5. Small amount of free fluid along the spleen. This could represent an adjacent pleural effusion. Head CT 02/15/18 12:23 CONCLUSION: 1. Negative CT Head non contrast. . Head MRI 02/16/18 08:28 CONCLUSION: 1. New focus of restricted diffusion high along the right cerebral vertex measuring 8 mm consistent with a new small focal acute infarction. 2. There is a new 5 mm area restricted diffusion high along the left cerebral vertex consistent with a new small focal acute infarction. 3. 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 This area is stable compared to the prior examination. 4. Stable bilateral cortical atrophy and mild chronic white matter changes. 5. Chronic bilateral mastoiditis. Chest CT 02/18/18 00:00 CONCLUSION: 1. Increasing basilar and dependent consolidation in both lungs most characteristic of pneumonia or aspiration. 2. Near complete resolution of previous small effusions. 3. Osteopenia with stable compression deformities in the spine. 4. Previous sternotomy with aortic valve replacement. 5. Right-sided central line, ET tube and NG tube in good position. Chest X-Ray 03/16/18 00:00 CONCLUSION: Bilateral airspace opacities are modestly improved. Please see above. New nasogastric tube with tip in the upper stomach sidehole near the GE junction. Otherwise no significant change. Abdomen X-Ray 03/16/18 10:52 CONCLUSION: 1. No evidence of bowel obstruction, ileus or perforation. 2. Degenerative changes and scoliosis of the thoracolumbar spine. Objective Remarks: GENERAL: 62-year-old gentleman, awake, alert, ill-appearing, on vent. HEENT: Pupils are equal and reactive, sclera anicteric. Trach in place. No JVD. CARDIOVASCULAR: Regular heart sounds, no murmurs appreciated. RESPIRATORY: On mechanical ventilation via tracheostomy, APRV mode, 90% FiO2. scattered coarse breath sounds bilateral. No wheezes. Good air entry. GASTROINTESTINAL: Abdomen soft, not tender, not distended, bowel sounds are present. PEG in in place. MUSCULOSKELETAL: Extremities with bilateral trace lower extremity edema. Peripheral pulses are present. NEURO: On ventilator via trach Assessment and Plan - Assessment and Plan Plan: NEURO/PSYCH: History of stroke in 2015 Neuropathy left upper and lower extremity Chronic low back pain On fentanyl 50 mics, Versed 2mg for sedation., monitor neuro status. Daily sedation vacation On ASA 81 mg daily. Continue pregabalin 150 mg p.o. twice daily. Holding duloxetine 90 mg p.o. daily. 02/15 CT brain: No acute findings. 02/15 EEG : Encephalopathy, no epileptiform activity MRI brain 02/16: New small focal acute infarction right cerebral vertex and also left cerebral vertex. EEG 03/16: Diffuse encephalopathy Neuro: Dr. Rosen RESP: Acute hypoxic respiratory failure -unchanged, on minimal O2 requirements, tolerating T piece during daytime and CPAP at night COPD on 2.5 L home O2 Prior tobacco abuse Bilateral pleural effusions Perc trach 03/03. Continue with vent support keep sats >92%. Switched to APRV mode mechanical ventilation on 03/15 for worsening respiratory status. Albuterol/ipratropium aerosols every 6 hours with albuterol aerosols every 2 hours as needed for dyspnea Vent bundle, check ABG CV: V. tach/V. fib arrest -resolved NSTEMI Cardiogenic shock -resolved Acute systolic heart failure Atrial fibrillation with RVR [place] mechanical aortic valve (09/21/12 Dr. Gonzalez) s/p Tricuspid annuloplasty Continue with pressors ( Levophed, Vasopressin)Monitor HR and BP keep MAP>65mmHg Check Lactic acid Change solumederol to HC 100mg IV Q8 Hold amiodarone 400mg BID, Continue aspirin 81 mg daily Clopidogrel is on hold since 02/26 for trach and PEG and will resume when plt > 80 per hematology Continue atorvastatin 40 mg nightly. s/p cath And PCI -proximal LAD and large diagonal 90% stenosis, 2 BMS stent 02/05, mid LAD vasospasm post PCI Off IABP 02/08/18 [place] 01/23/18no vegetation. Normal aortic mechanical valve with trivial aortic insufficiency. Tricuspid annuloplasty. Mild to moderate LV generalized hypokinesis Echo from 02/05: EF <20%, diffuse hypokinesis, bioprosthetic valve De Icer [employer] Assembler is Romana Bartlett GI: Moderate protein calorie malnutrition with hypoalbuminemia Jevity 1.5 now at goal 50 ml/hr. with free water 300 cc every 6 hours Status post PEG tube placement Lansoprazole for stress ulcer prophylactic Had normal EGD on 10/21/17 FEN/RENAL: Acute kidney injury BPH Monitor renal function, I/O's, avoid nephrotoxins Renal ultrasound to evaluate for evidence of obstruction -did not show any obstruction Holding tamsulosin 0.4 mg daily for now Renal function worse with Cr: 1.93 from 0.94, biacrb :11 Will give 2amps bicarb followed by D5W+3amps bicarb @125ml/hr Renal eval. 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 difficile colitis -still having diarrhea Funguria On Vanco, Merrem, Micafungin. ID is following Infectious disease following. 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 Continue holding Plavix and heparin. 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 Check Coags, Fibrinogen level.INR: [address] Rosas ENDO: SSI to maintain euglycemia PROPH: on argatroban. Protonix for stress ulcer prophylaxis ACCESS: PIV in place. Palliative care is following. Patient made alternate CODE STATUS. Prognosis appears extremely poor. CCT 30 mins
[2018-03-17 07:09] LABS: Lymphocytes 10 % (9-44); Tallied Nucleated RBC 1 (0-0)
[2018-03-17 07:10] LABS: Dohle Bodies Present; Ovalocytes 1+; Toxic Granulation 2+
--- NOTE | 2018-03-17 08:12 | P.PNNEU ---
Subjective Subjective Comments: In respiratory distress being seen by RT this a.m. Active Medications: Active Medications Acetaminophen (Tylenol Liq) 650 mg PO Q6H PRN PRN Reason: FEVER Last Admin: 03/15/18 11:37 Dose: 650 mg Acetaminophen (Tylenol) 650 mg PO Q4H PRN PRN Reason: SEE LABEL COMMENTS Last Admin: 03/14/18 17:29 Dose: 650 mg Hydrocodone Bitart/Acetaminophen ([place]ell 7.5/325) 1 tab PO Q4H PRN PRN Reason: pain 1-10 Last Admin: 03/10/18 08:34 Dose: 1 tab Al Hydroxide/Mg Hydroxide (Milk Of [place] Liq) 30 ml PO Q12H PRN PRN Reason: Mild Constipation Albuterol (Albuterol Neb (Prn)) 2.5 mg NEB Q2HR NEB PRN PRN Reason: SHORTNESS OF BREATH/WHEEZING Last Admin: 03/17/18 03:26 Dose: 2.5 mg Amiodarone HCl (Cordarone) 400 mg G-TUBE BID [facility] Last Admin: 03/16/18 20:20 Dose: Not Given Artificial Tears (Genteal Severe Dry Eye Relief 0.3% Opth Gel) 1 drops EACH EYE BID [facility] Last Admin: 03/16/18 20:20 Dose: 1 drops Ascorbic Acid (Vitamin C) 500 mg NG/OG DAILY [facility] Last Admin: 03/16/18 09:18 Dose: 500 mg Aspirin (Aspirin Chew) 81 mg PO DAILY [facility] Last Admin: 03/16/18 09:18 Dose: 81 mg Atorvastatin Calcium (Lipitor) 40 mg PO HS [facility] Last Admin: 03/16/18 20:20 Dose: 40 mg Bisacodyl (Dulcolax Supp) 10 mg RECTAL DAILY PRN PRN Reason: SEVERE CONSITIPATION Chlorhexidine Gluconate (Peridex 0.12% Oral Kit) 15 ml OROPHARYNG BID@0800, 2000 [facility] Last Admin: 03/16/18 20:20 Dose: 15 ml Clopidogrel Bisulfate (Plavix) 75 mg PO DAILY [facility] Last Admin: 02/25/18 09:13 Dose: 75 mg Dextrose (D50w Vial) 50 ml IV.PUSH UNSCH PRN PRN Reason: PER HYPOGLYCEMIA PROTOCOL Last Admin: 03/01/18 06:02 Dose: 50 ml Digoxin (Lanoxin Inj) 250 mcg IV.PUSH DAILY [facility] Last Admin: 02/11/18 15:41 Dose: Not Given Diphenhydramine HCl (Benadryl) 25 mg PO Q4H PRN PRN Reason: SEE LABEL COMMENTS Diphenhydramine HCl (Benadryl) 25 mg PO Q4H PRN PRN Reason: SEE LABEL COMMENTS Duloxetine HCl (Cymbalta) 90 mg PO DAILY [facility] Last Admin: 02/11/18 11:18 Dose: Not Given Ferrous Sulfate (Ferrrous Sulfate Liq) 300 mg PO DAILY [facility] Last Admin: 03/16/18 09:17 Dose: 300 mg Glucagon (Glucagon Inj) 1 mg OTHER PRN PRN PRN Reason: for Hypoglycemia Protocol Hydrocortisone Sodium Succinate (Solucortef Inj) 100 mg IV.PUSH Q8HR [facility] Hydromorphone HCl (Dilaudid Pf Inj) 0.5 mg IV.PUSH Q4H PRN PRN Reason: pain 4-10 Argatroban 250 mg/ Sodium (Chloride) 250 mls @ 7.56 mls/hr IV.CONT TITRATE PRN ; Protocol PRN Reason: Per Protocol Last Titration: 03/16/18 13:00 Dose: 0 mcg/kg/min, 0 mls/hr Magnesium Sulfate Inj 4 gm/ (Sodium Chloride) 100 mls @ 50 mls/hr IV.SIG UNSCH PRN PRN Reason: For Magnesium 0.9 - 1.1 mg/dL Magnesium Sulfate Inj 2 gm/ (Sodium Chloride) 100 mls @ 50 mls/hr IV.SIG UNSCH PRN PRN Reason: For Magnesium 1.2 - 1.6 mg/dL Potassium Chloride (Kcl 40 Meq Premix Inj) 40 meq in 100 mls @ 25 mls/hr IV.SIG Q2H PRN PRN Reason: For Potassium 2.8 - 3.2 mEq/L Potassium Chloride (Kcl 20 Meq Premix Inj) 20 meq in 100 mls @ 50 mls/hr IV.SIG Q2H PRN PRN Reason: For Potassium 3.3 - 3.5 mEq/L Potassium Chloride (Kcl 40 Meq Premix Inj) 40 meq in 100 mls @ 25 mls/hr IV.SIG UNSCH PRN PRN Reason: For Potassium 3.3 - 3.5 mEq/L Potassium Phosphate 30 mmol/ (Sodium Chloride) 260 mls @ 42 mls/hr IV.SIG UNSCH PRN PRN Reason: SEE LABEL COMMENTS Sodium Phosphate 30 mmol/ (Sodium Chloride) 260 mls @ 42 mls/hr IV.SIG UNSCH PRN PRN Reason: For Phosphorus < 2.5 mg/dL Potassium Chloride (Kcl 20 Meq Premix Inj) 20 meq in 100 mls @ 50 mls/hr IV.SIG Q2H PRN PRN Reason: For Potassium 2.8 - 3.2 mEq/L Cefepime HCl 2,000 mg/ Sodium (Chloride) 100 mls @ 200 mls/hr IV.SIG Q8H [facility] Last Admin: 03/17/18 04:43 Dose: 200 mls/hr Micafungin Sodium 150 mg/ (Sodium Chloride) 100 mls @ 100 mls/hr IV.SIG Q24H [facility] Last Infusion: 03/17/18 00:40 Dose: Infused Fentanyl (Fentanyl 10 Mcg/Ml Premix Drip) 2,500 mcg in 250 mls @ 5 mls/hr IV.SIG TITRATE PRN; Protocol PRN Reason: Per Protocol Last Titration: 03/17/18 05:29 Dose: 50 mcg/hr, 5 mls/hr Midazolam HCl (Versed Inj) 50 mg in 50 mls @ 2 mls/hr IV.CONT TITRATE PRN; Protocol PRN Reason: Per Protocol Last Titration: 03/17/18 05:29 Dose: 2 mg/hr, 2 mls/hr Vasopressin 40 unit/ Dextrose 100 mls @ 1.5 mls/hr IV.CONT TITRATE PRN; Protocol PRN Reason: Per Protocol Last Titration: 03/17/18 05:29 Dose: Infused Vancomycin HCl 1,250 mg/ (Sodium Chloride) 262.5 mls @ 250 mls/hr IV.SIG Q18H [facility] Last Admin: 03/16/18 18:42 Dose: 250 mls/hr Norepinephrine Bitartrate (Levophed-Dextrose 4 Mg/250 Ml Drip) 4 mg in 250 mls @ 7.5 mls/hr IV.SIG TITRATE PRN; Protocol PRN Reason: Per Protocol Last Titration: 03/17/18 05:29 Dose: 12 mcg/min, 45 mls/hr Insulin Aspart (Novolog Insulin Correctional Sugar Inj) 0 unit SQ Q6HR [facility]; Protocol Last Admin: 03/17/18 05:28 Dose: Not Given Lactulose (Lactulose Liq) 30 ml PO DAILY PRN PRN Reason: SEVERE CONSITIPATION Last Admin: 02/05/18 08:38 Dose: 30 ml Lansoprazole (Prevacid Solutab) 30 mg NG/OG DAILY [facility] Last Admin: 03/16/18 09:19 Dose: 30 mg Magnesium Oxide (Mag-Ox) 800 mg PO UNSCH PRN PRN Reason: For Magnesium 1.2 - 1.6 mg/dL Last Admin: 03/15/18 09:00 Dose: 800 mg Miscellaneous Information ([facility] Ordered Lab Info) 0 each OTHER ONCE ONE Stop: 03/18/18 03:46 Morphine Sulfate (Morphine Inj) 4 mg IV.PUSH Q3H PRN PRN Reason: breakthrough pain Last Admin: 03/15/18 21:11 Dose: 4 mg Multivitamins (Theragran) 1 tab PO DAILY [facility] Last Admin: 03/16/18 09:18 Dose: 1 tab Pharmacy Profile Note (Vancomycin Consult Pharmacy) 1 each OTHER UNSCH PRN PRN Reason: Pharmacy to dose Potassium Bicarb/Potassium Chloride (K-Lyte Cl Eff) 50 meq PO UNSCH PRN PRN Reason: For Potassium 3.3 - 3.5 mEq/L Potassium Phosphate (K-Phos Original) 2,000 mg PO Q4H PRN PRN Reason: Phosphorus Less Than 2.5 mg/dL Last Admin: 03/15/18 12:53 Dose: 2,000 mg Potassium Phosphate (K-Phos Original) 2,000 mg PO UNSCH PRN PRN Reason: SEE LABEL COMMENTS Pregabalin (Lyrica) 150 mg PO BID [facility] Last Admin: 03/16/18 20:34 Dose: 150 mg Senna/Docusate Sodium (Linda-Colace) 1 tab PO BID [facility] Last Admin: 03/16/18 20:21 Dose: Not Given Sennosides (Senokot) 17.2 mg PO Q12H PRN PRN Reason: Moderate Constipation Sodium Chloride (Ns Flush) 2 ml IV.FLUSH BID [facility] Last Admin: 03/16/18 20:21 Dose: 2 ml Sodium Chloride (Ns Flush) 2 ml IV.FLUSH PRN PRN PRN Reason: FLUSH AFTER USING IV ACCESS Vancomycin HCl (Vancomycin Po) 500 mg G-TUBE Q6HR [facility] Last Admin: 03/17/18 05:26 Dose: 500 mg Whey (Beneprotein Powder) 1 packet G-TUBE TID [facility] Last Admin: 03/16/18 18:42 Dose: Not Given Allergies/Adverse Reactions: Allergies Allergy/AdvReac Type Severity Reaction Status Date / Time No Known Allergies Allergy Verified 02/04/18 18:10 Review of Systems unobtainable due to endotracheal tube, unobtainable due to mental status Physical Exam Vital signs: Vital Signs 03/16/18 10:00 03/16/18 11:04 03/16/18 11:45 Temperature Pulse Rate 89 93 H 93 H Respiratory Rate 29 H 36 H Blood Pressure 85/49 L 75/51 L Pulse Oximetry 100 99 03/16/18 12:00 03/16/18 12:01 03/16/18 12:13 Temperature 98.9 F Pulse Rate 93 H 93 H Respiratory Rate 36 H 36 H 32 H Blood Pressure 80/53 L 80/53 L Pulse Oximetry 100 98 100 03/16/18 12:51 03/16/18 13:00 03/16/18 13:01 Temperature Pulse Rate 87 87 87 Respiratory Rate 29 H 34 H 35 H Blood Pressure 72/50 L 87/48 L Pulse Oximetry 99 98 98 03/16/18 13:54 03/16/18 14:00 03/16/18 15:00 Temperature Pulse Rate 83 83 80 Respiratory Rate 34 H 34 H 31 H Blood Pressure 134/69 Pulse Oximetry 94 L 99 98 03/16/18 16:00 03/16/18 16:30 03/16/18 16:35 Temperature 98.5 F Pulse Rate 80 80 Respiratory Rate 31 H 33 H 32 H Blood Pressure 97/57 L Pulse Oximetry 100 90 L 03/16/18 16:55 03/16/18 17:00 03/16/18 17:07 Temperature Pulse Rate 80 80 79 Respiratory Rate 24 28 H 32 H Blood Pressure 47/32 L 130/67 Pulse Oximetry 70 L 76 L 03/16/18 17:15 03/16/18 17:30 03/16/18 17:47 Temperature Pulse Rate 85 87 89 Respiratory Rate 24 28 H 32 H Blood Pressure 125/58 L 97/57 L 114/70 Pulse Oximetry 98 97 97 03/16/18 18:00 03/16/18 18:15 03/16/18 18:30 Temperature Pulse Rate 89 87 85 Respiratory Rate 31 H 23 24 Blood Pressure 115/71 110/70 95/66 L Pulse Oximetry 97 96 96 03/16/18 18:45 03/16/18 19:00 03/16/18 19:01 Temperature Pulse Rate 83 82 82 Respiratory Rate 21 21 23 Blood Pressure 93/66 L 108/74 Pulse Oximetry 96 96 96 03/16/18 19:15 03/16/18 19:30 03/16/18 19:45 Temperature Pulse Rate 81 80 81 Respiratory Rate 27 H 22 24 Blood Pressure 101/53 L 98/58 L 97/65 L Pulse Oximetry 95 96 96 03/16/18 19:55 03/16/18 20:00 03/16/18 20:01 Temperature 97 F L Pulse Rate 82 83 Respiratory Rate 33 H 21 24 Blood Pressure 112/6 L Pulse Oximetry 96 98 97 03/16/18 20:02 03/16/18 20:15 03/16/18 20:30 Temperature Pulse Rate 83 81 82 Respiratory Rate 26 H 26 H 25 H Blood Pressure 104/51 L 100/64 101/65 Pulse Oximetry 96 97 97 03/16/18 20:45 03/16/18 21:00 03/16/18 21:15 Temperature Pulse Rate 85 84 85 Respiratory Rate 28 H 27 H 29 H Blood Pressure 100/58 L 98/57 L 98/55 L Pulse Oximetry 98 94 L 94 L 03/16/18 21:30 03/16/18 21:45 03/16/18 22:00 Temperature Pulse Rate 85 84 84 Respiratory Rate 28 H 28 H 28 H Blood Pressure 100/61 103/65 99/64 L Pulse Oximetry 94 L 94 L 95 03/16/18 22:15 03/16/18 22:25 03/16/18 22:30 Temperature Pulse Rate 84 83 Respiratory Rate 28 H 35 H 27 H Blood Pressure 99/64 L 101/61 Pulse Oximetry 95 96 96 03/16/18 22:45 03/16/18 23:00 03/16/18 23:15 Temperature Pulse Rate 84 86 86 Respiratory Rate 27 H 26 H 27 H Blood Pressure 93/62 L 137/86 105/55 L Pulse Oximetry 95 96 96 03/16/18 23:26 03/16/18 23:30 08/30/18 23:45 Temperature Pulse Rate 86 87 87 Respiratory Rate 40 H 14 15 Blood Pressure 97/52 L 90/58 L Pulse Oximetry 96 96 03/17/18 00:00 03/17/18 00:15 03/17/18 00:30 Temperature 97.6 F Pulse Rate 87 87 92 H Respiratory Rate 21 22 10 L Blood Pressure 90/59 L 93/56 L 87/69 L Pulse Oximetry 96 96 96 03/17/18 01:50 03/17/18 02:00 03/17/18 03:26 Temperature Pulse Rate 89 89 Respiratory Rate 35 H 33 H Blood Pressure Pulse Oximetry 95 03/17/18 04:00 03/17/18 05:04 03/17/18 06:00 Temperature Pulse Rate 89 91 H Respiratory Rate 31 H Blood Pressure Pulse Oximetry 95 Intake & Output 03/16/18 03/17/18 03/17/18 18:59 06:59 18:59 Intake Total 600 / 600 972.8 / 972.8 Output Total 250 / 250 1050 / 1050 Balance 350 / 350 -77.2 / -77.2 Weight 72 kg Intake: IV 600 / 600 852.8 / 852.8 Versed Inj 50 mg In 50 ml @ 2 23.5 / 23.5 MG/HR 2 mls/hr IV.CONT TITRATE PRN Rx#:[id number] Pitressin Inj 40 UNIT In D5W 220 / 220 Inj 98 ML @ 0.01 UNITS/MIN 1.5 mls/hr IV.CONT TITRATE PRN Rx#: [id number] Maxipime Inj 2,000 MG In NS Inj 100 / 100 100 / 100 100 ML @ 200 mls/hr IV.SIG Q8H [facility] Rx#:[id number] Mycamine Inj 150 MG In NS Inj 100 / 100 100 ML @ 100 mls/hr IV.SIG Q24H [facility] Rx#:[id number] Levophed-Dextrose 4 mg/250 ml 352 / 352 Drip 4 mg In 250 ml @ 2 MCG/MIN 7.5 mls/hr IV.SIG TITRATE PRN Rx#:[id number] NS Inj 500 ML @ 999 mls/hr IV. 500 / 500 SIG .Q31M [facility] Rx#:[id number] fentaNYL 10 mcg/mL Premix Drip 57.3 / 57.3 2,500 mcg In 250 ml @ 50 MCG/HR 5 mls/hr IV.SIG TITRATE PRN Rx #:[id number] Tube Feeding 0 / 0 Water Bolus Amount 120 / 120 Output: Urine 150 / 150 Stool 50 / 50 700 / 700 Urine Amount (Catheter) 100 / 100 Indwelling Urethral Catheter 100 / 100 Gastric Drainage 100 / 100 200 / 200 Left Upper Quadrant 100 / 100 Right Nare Nasogastric Tube 200 / 200 Other: Date of Last Bowel Movement 03/15/18 03/17/18 Narrative: GENERAL: Ill-appearing cachectic older male patient, SKIN: Pale, warm and diaphoretic. HEAD: Normocephalic. EYES: No scleral icterus. No injection or drainage. NECK: Tracheostomy midline. No bleeding/oozing noted at tracheostomy site, erythema noted at base of collar. CARDIOVASCULAR: +S1/S2 without murmurs. RESPIRATORY: Bilateral rhonchi. +vent. GASTROINTESTINAL: Abdomen soft, non-tender, distended. Feeding tube EXTREMITIES: No cyanosis, or edema. MUSCULOSKELETAL: Generalized weakness, decreased muscle tone. NEUROLOGICAL: Tachypneic trach minimal blink to threat today not following minimal localization - Urinary Catheter Management Condom Cath placed during this visit: yes Urethral indwelling: Yes Reason for continuing: Acute urinary retention Insertion date: 02/24/18 Indwelling Urethral Catheter Cath placed during this visit: yes, but has since been removed by the nurse Reason for continuing: Chronic Urinary Retention Insertion date: 02/24/18 Removal date: 03/07/18 Removal time: 12:00 Straight Cath placed during this visit: yes, but has since been removed by the nurse Reason for continuing: Acute urinary retention Insertion date: 03/08/18 Insertion time: 15:00 Removal date: 03/08/18 Removal time: 00:15 Indwelling Temp Sensing Catheter Cath placed during this visit: yes, but has since been removed by the nurse Reason for continuing: Acute urinary retention Insertion date: 02/12/18 Insertion time: 20:15 Removal date: 02/20/18 Removal time: 16:00 Objective Laboratory Results - last 24 hr 03/16/18 03/16/18 03/16/18 06:59 13:14 17:02 WBC RBC Hgb Hct MCV MCH MCHC RDW Plt Count MPV Prelim Diff (Auto) Neut % (Auto) Lymph % (Auto) [place] % (Auto) Eos % (Auto) Baso % (Auto) Neut # (Auto) Lymph # (Auto) [place] # (Auto) Eos # (Auto) Baso # (Auto) WBC Differential Seg Neuts % (Manual) Band Neuts % (Manual) Lymphocytes % (Manual) Abs Neuts (Manual) Nucleated RBCs/100 WBC Differential Comment Toxic Granulation Dohle Bodies Platelet Estimate Platelet Morphology Ovalocytes PT 40.1 H D 60.3 H D INR 4.0 6.0 H* APTT 99.7 H* D 105.3 H* Sodium Potassium Chloride Carbon Dioxide Anion Gap BUN Creatinine Estimated GFR POC Glucose 85 Random Glucose Calcium Phosphorus Magnesium Albumin 03/16/18 03/17/18 03/17/18 23:10 04:51 04:51 WBC 5.0 RBC 3.56 L Hgb 11.2 L Hct 35.6 L MCV 99.8 D MCH 31.5 MCHC 31.6 L RDW 24.0 H Plt Count 115 L MPV 11.5 H Prelim Diff (Auto) Slide review pending Neut % (Auto) 90.5 H Lymph % (Auto) 7.0 L [place] % (Auto) 2.0 Eos % (Auto) 0.4 Baso % (Auto) 0.1 Neut # (Auto) 4.5 Lymph # (Auto) 0.4 L [place] # (Auto) 0.1 Eos # (Auto) 0.0 Baso # (Auto) 0.0 WBC Differential Manual diff final Seg Neuts % (Manual) 64 Band Neuts % (Manual) 26 H Lymphocytes % (Manual) 10 Abs Neuts (Manual) 4.5 Nucleated RBCs/100 WBC 1 H Differential Comment . Toxic Granulation 2+ H Dohle Bodies Present H Platelet Estimate Low L Platelet Morphology Enlarged H Ovalocytes 1+ H PT INR APTT Sodium 138 Potassium 4.9 D Chloride 106 Carbon Dioxide 11.4 L D Anion Gap 21 H BUN 52 H Creatinine 1.93 H Estimated GFR 35 L POC Glucose 133 H Random Glucose 126 H Calcium 6.5 L* Phosphorus 7.3 H D Magnesium 2.2 D Albumin 1.4 L 03/17/18 05:27 WBC RBC Hgb Hct MCV MCH MCHC RDW Plt Count MPV Prelim Diff (Auto) Neut % (Auto) Lymph % (Auto) [place] % (Auto) Eos % (Auto) Baso % (Auto) Neut # (Auto) Lymph # (Auto) [place] # (Auto) Eos # (Auto) Baso # (Auto) WBC Differential Seg Neuts % (Manual) Band Neuts % (Manual) Lymphocytes % (Manual) Abs Neuts (Manual) Nucleated RBCs/100 WBC Differential Comment Toxic Granulation Dohle Bodies Platelet Estimate Platelet Morphology Ovalocytes PT INR APTT Sodium Potassium Chloride Carbon Dioxide Anion Gap BUN Creatinine Estimated GFR POC Glucose 122 H Random Glucose Calcium Phosphorus Magnesium Albumin Microbiology 03/15/18 10:30 Aerobic Blood Culture - Preliminary Blood - Peripheral Yeast - ID to follow Anaerobic Blood Culture - Preliminary No growth in 1 day 03/15/18 08:50 Gram Stain - Final Sputum - Tracheal Aspirate Sputum Culture - Preliminary Pseudomonas aeruginosa gram negative rods 03/15/18 09:54 Urine Culture - Preliminary Catheterized Urine Yeast - ID to follow 03/15/18 10:25 Aerobic Blood Culture - Preliminary Blood - Peripheral No growth in 1 day Anaerobic Blood Culture - Preliminary No growth in 1 day Review/Management - Diagnosis (1) Acute embolic stroke Code(s): I63.9 - Cerebral infarction, unspecified Status: Acute Current Visit: Yes (2) Cardiogenic shock Code(s): R57.0 - Cardiogenic shock Status: Acute Current Visit: Yes (3) Ventricular fibrillation Code(s): I49.01 - Ventricular fibrillation Status: Acute Current Visit: Yes (4) Atrial fibrillation Code(s): I48.91 - Unspecified atrial fibrillation Status: Acute Current Visit: Yes (5) Thrombocytopenia Code(s): D69.6 - Thrombocytopenia, unspecified Status: Acute Current Visit: Yes - Review/Management Plan: Patient does appear to follow, is cachectic ill-appearing due to multiple comorbidities. 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 Thrombocytopenia,, infections EEG moderate encephalopathy Recommendations Mild respiratory distress this a.m. Respiratory appears to be his main issue in addition to coagulopathy infection We will follow peripherally
[2018-03-17 08:30] LABS: VBG Base Excess -16.8 mmol/L (-2-2); VBG Blood Gas Oxygen Content 6.6 Vol % (9.0-17.0); VBG PCO2 41 mmHG (44-48); VBG PH 7.07 (7.360-7.400); VBG PO2 35 mmHG (35-40)
[2018-03-17 09:00] VITALS: RESP 26; O2SAT 94
[2018-03-17] MEDS ORDERED: Sodium Chlor 0.9% Inj 500 ML IV.SIG ONE (09:00)
[2018-03-17] MEDS: Hydrocortisone Sod Succinate 100 MG Vial IV.PUSH SCH ×2 (09:04→14:51)
[2018-03-17] MEDS: Ferrrous Sulfate 300 MG/5 ML UDC PO SCH (09:14)
[2018-03-17] MEDS: Ascorbic Acid 500 MG Tablet NG/OG SCH (09:16)
[2018-03-17] MEDS: Pregabalin 75 MG Capsule PO SCH (09:16)
[2018-03-17] MEDS: Senna/Docusate Sodium 8.6/50 MG Tablet PO SCH (09:17)
[2018-03-17] MEDS: Beneprotein Powder Packet G-TUBE SCH ×2 (09:20→13:15)
[2018-03-17] MEDS: Chlorhexidine 0.12% Oral Kit 15 ML UDC OROPHARYNG SCH (09:21)
[2018-03-17 09:30] LABS: Total Protein 5.4 g/dL (6.4-8.2)
[2018-03-17] MEDS ORDERED: Sodium Bicarbonate 8.4% Inj 150 MEQ in Dextrose 5% in Water Inj 850 ML IV.CONT SCH ×2 (10:00)
[2018-03-17 10:09] LABS: Calcium 6.5 mg/dL (8.5-10.1); Carbon Dioxide 13.2 meq/L (21.0-32.0); Potassium 5.3 meq/L (3.5-5.1)
[2018-03-17 10:21] LABS: Total Protein 5.6 g/dL (6.4-8.2)
[2018-03-17 10:43] LABS: Prothrombin Time 152.5 sec (9.8-11.6)
[2018-03-17 10:45] LABS: INR 15.4 Ratio
--- NOTE | 2018-03-17 12:05 | P.PNPAL ---
Reason for Visit Reason for visit: a. To assist with evaluation and management of symptoms including: pain, dyspnea, weakness b. To assist medical decision maker(s) with: better understanding of current medical conditions; weighing benefits/burdens of medical treatment options; making medical treatment decisions. Subjective Subjective/Interval History: Patient seen in the [facility] bed, is present. He remains unresponsive, in profound shock, and now has developed fulminant hepatic failure, with transaminases in the thousands and marked coagulopathy. His renal function is worsening, creatinine up to 2.07. White count 5. Family/Friend Interactions: Lengthy discussion with patient's , and she clearly understands that he will soon. She says she is now at peace with that, but she cannot de- escalate current care or consider control of life support. "When his heart stops we will let him go, that his his time." Advance Directives Significant change in goals:: He did elect DNR yesterday Objective Vital Signs: Vital Signs 03/16/18 12:00 03/16/18 12:01 03/16/18 12:13 Temperature 98.9 F Pulse Rate 93 H 93 H Respiratory Rate 36 H 36 H 32 H Blood Pressure 80/53 L 80/53 L Pulse Oximetry 100 98 100 03/16/18 12:51 03/16/18 13:00 03/16/18 13:01 Temperature Pulse Rate 87 87 87 Respiratory Rate 29 H 34 H 35 H Blood Pressure 72/50 L 87/48 L Pulse Oximetry 99 98 98 03/16/18 13:54 03/16/18 14:00 03/16/18 15:00 Temperature Pulse Rate 83 83 80 Respiratory Rate 34 H 34 H 31 H Blood Pressure 134/69 Pulse Oximetry 94 L 99 98 03/16/18 16:00 03/16/18 16:30 03/16/18 16:35 Temperature 98.5 F Pulse Rate 80 80 Respiratory Rate 31 H 33 H 32 H Blood Pressure 97/57 L Pulse Oximetry 100 90 L 03/16/18 16:55 03/16/18 17:00 03/16/18 17:07 Temperature Pulse Rate 80 80 79 Respiratory Rate 24 28 H 32 H Blood Pressure 47/32 L 130/67 Pulse Oximetry 70 L 76 L 03/16/18 17:15 03/16/18 17:30 03/16/18 17:47 Temperature Pulse Rate 85 87 89 Respiratory Rate 24 28 H 32 H Blood Pressure 125/58 L 97/57 L 114/70 Pulse Oximetry 98 97 97 03/16/18 18:00 03/16/18 18:15 03/16/18 18:30 Temperature Pulse Rate 89 87 85 Respiratory Rate 31 H 23 24 Blood Pressure 115/71 110/70 95/66 L Pulse Oximetry 97 96 96 03/16/18 18:45 03/16/18 19:00 03/16/18 19:01 Temperature Pulse Rate 83 82 82 Respiratory Rate 21 21 23 Blood Pressure 93/66 L 108/74 Pulse Oximetry 96 96 96 03/16/18 19:15 03/16/18 19:30 03/16/18 19:45 Temperature Pulse Rate 81 80 81 Respiratory Rate 27 H 22 24 Blood Pressure 101/53 L 98/58 L 97/65 L Pulse Oximetry 95 96 96 03/16/18 19:55 03/16/18 20:00 03/16/18 20:01 Temperature 97 F L Pulse Rate 82 83 Respiratory Rate 33 H 21 24 Blood Pressure 112/6 L Pulse Oximetry 96 98 97 03/16/18 20:02 03/16/18 20:15 03/16/18 20:30 Temperature Pulse Rate 83 81 82 Respiratory Rate 26 H 26 H 25 H Blood Pressure 104/51 L 100/64 101/65 Pulse Oximetry 96 97 97 03/16/18 20:45 03/16/18 21:00 03/16/18 21:15 Temperature Pulse Rate 85 84 85 Respiratory Rate 28 H 27 H 29 H Blood Pressure 100/58 L 98/57 L 98/55 L Pulse Oximetry 98 94 L 94 L 03/16/18 21:30 03/16/18 21:45 03/16/18 22:00 Temperature Pulse Rate 85 84 84 Respiratory Rate 28 H 28 H 28 H Blood Pressure 100/61 103/65 99/64 L Pulse Oximetry 94 L 94 L 95 03/16/18 22:15 03/16/18 22:25 03/16/18 22:30 Temperature Pulse Rate 84 83 Respiratory Rate 28 H 35 H 27 H Blood Pressure 99/64 L 101/61 Pulse Oximetry 95 96 96 03/16/18 22:45 03/16/18 23:00 03/16/18 23:15 Temperature Pulse Rate 84 86 86 Respiratory Rate 27 H 26 H 27 H Blood Pressure 93/62 L 137/86 105/55 L Pulse Oximetry 95 96 96 03/16/18 23:26 03/16/18 23:30 03/16/18 23:45 Temperature Pulse Rate 86 87 87 Respiratory Rate 40 H 14 15 Blood Pressure 97/52 L 90/58 L Pulse Oximetry 96 96 03/17/18 00:00 03/17/18 00:15 03/17/18 00:30 Temperature 97.6 F Pulse Rate 87 87 92 H Respiratory Rate 21 22 10 L Blood Pressure 90/59 L 93/56 L 87/69 L Pulse Oximetry 96 96 96 03/17/18 01:50 03/17/18 02:00 03/17/18 03:26 Temperature Pulse Rate 89 89 Respiratory Rate 35 H 33 H Blood Pressure Pulse Oximetry 95 03/17/18 04:00 03/17/18 05:04 03/17/18 06:00 Temperature Pulse Rate 89 91 H Respiratory Rate 31 H Blood Pressure Pulse Oximetry 95 03/17/18 08:55 Temperature Pulse Rate Respiratory Rate 26 H Blood Pressure Pulse Oximetry 94 L Intake & Output 03/16/18 03/17/18 03/17/18 18:59 06:59 18:59 Intake Total 600 / 600 972.8 / 972.8 248 / 248 Output Total 250 / 250 1050 / 1050 Balance 350 / 350 -77.2 / -77.2 248 / 248 Weight 72 kg Intake: IV 600 / 600 852.8 / 852.8 248 / 248 Versed Inj 50 mg In 50 ml @ 2 23.5 / 23.5 MG/HR 2 mls/hr IV.CONT TITRATE PRN Rx#:[id number] Pitressin Inj 40 UNIT In D5W 220 / 220 Inj 98 ML @ 0.01 UNITS/MIN 1.5 mls/hr IV.CONT TITRATE PRN Rx#: [id number] Maxipime Inj 2,000 MG In NS Inj 100 / 100 100 / 100 100 / 100 100 ML @ 200 mls/hr IV.SIG Q8H ADRIEN Rx#:[id number] Mycamine Inj 150 MG In NS Inj 100 / 100 100 ML @ 100 mls/hr IV.SIG Q24H ADRIEN Rx#:[id number] Levophed-Dextrose 4 mg/250 ml 352 / 352 148 / 148 Drip 4 mg In 250 ml @ 2 MCG/MIN 7.5 mls/hr IV.SIG TITRATE PRN Rx#:[id number] NS Inj 500 ML @ 999 mls/hr IV. 500 / 500 SIG .Q31M ADRIEN Rx#:[id number] fentaNYL 10 mcg/mL Premix Drip 57.3 / 57.3 2,500 mcg In 250 ml @ 50 MCG/HR 5 mls/hr IV.SIG TITRATE PRN Rx #:[id number] Tube Feeding 0 / 0 Water Bolus Amount 120 / 120 Output: Urine 150 / 150 Stool 50 / 50 700 / 700 Urine Amount (Catheter) 100 / 100 Indwelling Urethral Catheter 100 / 100 Gastric Drainage 100 / 100 200 / 200 Left Upper Quadrant 100 / 100 Right Nare Nasogastric Tube 200 / 200 Other: Date of Last Bowel Movement 03/15/18 03/17/18 03/17/18 Physical Exam: CONSTITUTIONAL/GENERAL: ill appearing and cachectic male, unresponsive SKIN: Sallow. No jaundice, rashes, or lesions. Cold hands.. HEAD: Atraumatic. Normocephalic. + temporal wasting EYES:glassy. Fundi not examined. ENT: Nose without bleeding or purulent drainage. tracheostomy breathing tx CARDIOVASCULAR:RRR without murmurs, gallops, or rubs. + click. RESPIRATORY/CHEST: lung sounds rhonchi coarse. GASTROINTESTINAL: Abdomen soft, mildly distended. No hepato-splenomegaly, or palpable masses. Bowel sounds faint. +rectal bag with liquid stool GENITOURINARY: Without palpable bladder distension. Cano catheter in place. MUSCULOSKELETAL: Extremities without clubbing, cyanosis. No mottling or clubbing. NEUROLOGICAL: nonverbal, not moving extremities, unable to follow commands Diagnostic Tests Laboratory: Laboratory Results - last 72 hr 03/06/18 03/14/18 03/14/18 13:02 11:46 12:37 WBC RBC Hgb Hct MCV MCH MCHC RDW Plt Count MPV Prelim Diff (Auto) Neut % (Auto) Lymph % (Auto) [place] % (Auto) Eos % (Auto) Baso % (Auto) Neut # (Auto) Lymph # (Auto) [place] # (Auto) Eos # (Auto) Baso # (Auto) WBC Differential Diff Scan Seg Neuts % (Manual) Band Neuts % (Manual) Lymphocytes % (Manual) Monocytes % (Manual) Abs Neuts (Manual) Nucleated RBCs/100 WBC Differential Comment Toxic Granulation Toxic Vacuolation Dohle Bodies Platelet Estimate Platelet Morphology Ovalocytes PT INR APTT 59.8 H D Fibrinogen Puncture Site Patient Temperature O2 Saturation ABG pH ABG pCO2 ABG pO2 ABG HCO3 ABG O2 Content ABG Base Excess ABG Methemoglobin Frankie Test VBG pH VBG pCO2 VBG pO2 VBG HCO3 VBG O2 Saturation VBG O2 Content VBG Base Excess VBG Carboxyhemoglobin VBG Methemoglobin Hemoglobin Carboxyhemoglobin O2 Delivery Device Vent Setting Inspired O2 Critical Value Sodium Potassium Chloride Carbon Dioxide Anion Gap BUN Creatinine Estimated GFR POC Glucose 199 H Random Glucose Lactic Acid Calcium Prot Corrected Calcium Phosphorus Magnesium Total Bilirubin AST ALT Alkaline Phosphatase Ammonia Total Protein Albumin Urine Color Urine Clarity Urine pH Ur Specific [place] Urine Protein Urine Glucose (UA) Urine Ketones Urine Occult Blood Urine Nitrate Urine Bilirubin Urine Urobilinogen Ur Leukocyte Esterase Urine RBC Urine WBC Urine Bacteria Hyaline Casts Urine Mucus Urine Yeast Ur Yeast w Hyphae Micro UA Comment Ur Microscopic Review Urine Culture Comments Blood Type Antibody Screen Antibody Identification Antigen Identification Direct Antiglob Test MTS Gel Crossmatch See Detail 03/14/18 03/15/18 03/15/18 17:28 01:06 03:33 WBC RBC Hgb Hct MCV MCH MCHC RDW Plt Count MPV Prelim Diff (Auto) Neut % (Auto) Lymph % (Auto) [place] % (Auto) Eos % (Auto) Baso % (Auto) Neut # (Auto) Lymph # (Auto) [place] # (Auto) Eos # (Auto) Baso # (Auto) WBC Differential Diff Scan Seg Neuts % (Manual) Band Neuts % (Manual) Lymphocytes % (Manual) Monocytes % (Manual) Abs Neuts (Manual) Nucleated RBCs/100 WBC Differential Comment Toxic Granulation Toxic Vacuolation Dohle Bodies Platelet Estimate Platelet Morphology Ovalocytes PT INR APTT Fibrinogen Puncture Site Patient Temperature O2 Saturation ABG pH ABG pCO2 ABG pO2 ABG HCO3 ABG O2 Content ABG Base Excess ABG Methemoglobin Frankie Test VBG pH VBG pCO2 VBG pO2 VBG HCO3 VBG O2 Saturation VBG O2 Content VBG Base Excess VBG Carboxyhemoglobin VBG Methemoglobin Hemoglobin Carboxyhemoglobin O2 Delivery Device Vent Setting Inspired O2 Critical Value Sodium 143 Potassium 3.6 Chloride 109 H Carbon Dioxide 21.6 Anion Gap 12 BUN 26 H Creatinine 0.87 Estimated GFR 88 L POC Glucose 202 H 142 H Random Glucose 92 Lactic Acid Calcium 7.5 L Prot Corrected Calcium Phosphorus 2.3 L Magnesium 1.5 Total Bilirubin 0.6 AST 60 H ALT 33 Alkaline Phosphatase 76 Ammonia Total Protein 6.0 L Albumin 1.7 L Urine Color Urine Clarity Urine pH Ur Specific [place] Urine Protein Urine Glucose (UA) Urine Ketones Urine Occult Blood Urine Nitrate Urine Bilirubin Urine Urobilinogen Ur Leukocyte Esterase Urine RBC Urine WBC Urine Bacteria Hyaline Casts Urine Mucus Urine Yeast Ur Yeast w Hyphae Micro UA Comment Ur Microscopic Review Urine Culture Comments Blood Type Antibody Screen Antibody Identification Antigen Identification Direct Antiglob Test MTS Gel Crossmatch 03/15/18 03/15/18 03/15/18 05:37 05:37 09:54 WBC 2.1 L RBC 2.37 L Hgb 7.7 L Hct 23.1 L MCV 97.4 MCH 32.5 MCHC 33.3 RDW 22.5 H Plt Count 97 L MPV 10.8 Prelim Diff (Auto) Slide review pending Neut % (Auto) 77.3 H Lymph % (Auto) 17.5 [place] % (Auto) 4.9 Eos % (Auto) 0.1 Baso % (Auto) 0.2 Neut # (Auto) 1.6 L Lymph # (Auto) 0.4 L [place] # (Auto) 0.1 Eos # (Auto) 0.0 Baso # (Auto) 0.0 WBC Differential . Diff Scan Auto diff confirmed Seg Neuts % (Manual) Band Neuts % (Manual) Lymphocytes % (Manual) Monocytes % (Manual) Abs Neuts (Manual) Nucleated RBCs/100 WBC Differential Comment . Toxic Granulation Toxic Vacuolation Dohle Bodies Platelet Estimate Low L Platelet Morphology Enlarged H Ovalocytes PT INR APTT 66.8 H Fibrinogen Puncture Site Patient Temperature O2 Saturation ABG pH ABG pCO2 ABG pO2 ABG HCO3 ABG O2 Content ABG Base Excess ABG Methemoglobin Frankie Test VBG pH VBG pCO2 VBG pO2 VBG HCO3 VBG O2 Saturation VBG O2 Content VBG Base Excess VBG Carboxyhemoglobin VBG Methemoglobin Hemoglobin Carboxyhemoglobin O2 Delivery Device Vent Setting Inspired O2 Critical Value Sodium Potassium Chloride Carbon Dioxide Anion Gap BUN Creatinine Estimated GFR POC Glucose Random Glucose Lactic Acid Calcium Prot Corrected Calcium Phosphorus Magnesium Total Bilirubin AST ALT Alkaline Phosphatase Ammonia Total Protein Albumin Urine Color Yellow Urine Clarity Turbid H Urine pH 5.0 Ur Specific [place] 1.008 Urine Protein 30 H Urine Glucose (UA) Negative Urine Ketones Negative Urine Occult Blood Small H Urine Nitrate Negative Urine Bilirubin Negative Urine Urobilinogen Less than 2 Ur Leukocyte Esterase Negative Urine RBC Urine WBC 17 H Urine Bacteria Occasional H Hyaline Casts 8 Urine Mucus Few H Urine Yeast Many H Ur Yeast w Hyphae Occasional H Micro UA Comment Culture indicated Ur Microscopic Review Not Reportable Urine Culture Comments Culture indicated Blood Type Antibody Screen Antibody Identification Antigen Identification Direct Antiglob Test MTS Gel Crossmatch 03/15/18 03/15/18 03/15/18 11:37 16:10 17:55 WBC RBC Hgb Hct MCV MCH MCHC RDW Plt Count MPV Prelim Diff (Auto) Neut % (Auto) Lymph % (Auto) [place] % (Auto) Eos % (Auto) Baso % (Auto) Neut # (Auto) Lymph # (Auto) [place] # (Auto) Eos # (Auto) Baso # (Auto) WBC Differential Diff Scan Seg Neuts % (Manual) Band Neuts % (Manual) Lymphocytes % (Manual) Monocytes % (Manual) Abs Neuts (Manual) Nucleated RBCs/100 WBC Differential Comment Toxic Granulation Toxic Vacuolation Dohle Bodies Platelet Estimate Platelet Morphology Ovalocytes PT INR APTT Fibrinogen Puncture Site Patient Temperature O2 Saturation ABG pH ABG pCO2 ABG pO2 ABG HCO3 ABG O2 Content ABG Base Excess ABG Methemoglobin Frankie Test VBG pH VBG pCO2 VBG pO2 VBG HCO3 VBG O2 Saturation VBG O2 Content VBG Base Excess VBG Carboxyhemoglobin VBG Methemoglobin Hemoglobin Carboxyhemoglobin O2 Delivery Device Vent Setting Inspired O2 Critical Value Sodium Potassium Chloride Carbon Dioxide Anion Gap BUN Creatinine Estimated GFR POC Glucose 95 Random Glucose Lactic Acid Calcium Prot Corrected Calcium Phosphorus Magnesium Total Bilirubin AST ALT Alkaline Phosphatase Ammonia Total Protein Albumin Urine Color Urine Clarity Urine pH Ur Specific [place] Urine Protein Urine Glucose (UA) Urine Ketones Urine Occult Blood Urine Nitrate Urine Bilirubin Urine Urobilinogen Ur Leukocyte Esterase Urine RBC Urine WBC Urine Bacteria Hyaline Casts Urine Mucus Urine Yeast Ur Yeast w Hyphae Micro UA Comment Ur Microscopic Review Urine Culture Comments Blood Type O Positive Antibody Screen Positive H Antibody Identification Anti-E Antigen Identification E Antigen - NEGATIVE Direct Antiglob Test Weakly positive H MTS Gel Crossmatch See Detail 03/15/18 03/15/18 03/16/18 18:11 23:22 00:32 WBC RBC Hgb Hct MCV MCH MCHC RDW Plt Count MPV Prelim Diff (Auto) Neut % (Auto) Lymph % (Auto) [place] % (Auto) Eos % (Auto) Baso % (Auto) Neut # (Auto) Lymph # (Auto) [place] # (Auto) Eos # (Auto) Baso # (Auto) WBC Differential Diff Scan Seg Neuts % (Manual) Band Neuts % (Manual) Lymphocytes % (Manual) Monocytes % (Manual) Abs Neuts (Manual) Nucleated RBCs/100 WBC Differential Comment Toxic Granulation Toxic Vacuolation Dohle Bodies Platelet Estimate Platelet Morphology Ovalocytes PT INR APTT Fibrinogen Puncture Site Right radial Patient Temperature 98.6 O2 Saturation 78 L* ABG pH 7.47 H ABG pCO2 27 L ABG pO2 44 L* ABG HCO3 19 L ABG O2 Content 11.9 L ABG Base Excess -3.7 L ABG Methemoglobin 1.2 Frankie Test Present VBG pH VBG pCO2 VBG pO2 VBG HCO3 VBG O2 Saturation VBG O2 Content VBG Base Excess VBG Carboxyhemoglobin VBG Methemoglobin Hemoglobin 10.8 L Carboxyhemoglobin 1.5 O2 Delivery Device Ventilator Vent Setting Prvc18/500/1.0/+5 Inspired O2 100 Critical Value Yes Sodium Potassium Chloride Carbon Dioxide Anion Gap BUN Creatinine Estimated GFR POC Glucose 163 H 114 H Random Glucose Lactic Acid Calcium Prot Corrected Calcium Phosphorus Magnesium Total Bilirubin AST ALT Alkaline Phosphatase Ammonia Total Protein Albumin Urine Color Urine Clarity Urine pH Ur Specific [place] Urine Protein Urine Glucose (UA) Urine Ketones Urine Occult Blood Urine Nitrate Urine Bilirubin Urine Urobilinogen Ur Leukocyte Esterase Urine RBC Urine WBC Urine Bacteria Hyaline Casts Urine Mucus Urine Yeast Ur Yeast w Hyphae Micro UA Comment Ur Microscopic Review Urine Culture Comments Blood Type Antibody Screen Antibody Identification Antigen Identification Direct Antiglob Test MTS Gel Crossmatch 03/16/18 03/16/18 03/16/18 01:05 03:42 03:42 WBC 2.0 L RBC 3.53 L Hgb 11.0 L D Hct 33.3 L MCV 94.4 MCH 31.1 MCHC 33.0 RDW 22.3 H Plt Count 104 L MPV 11.2 H Prelim Diff (Auto) Slide review pending Neut % (Auto) 76.2 H Lymph % (Auto) 17.5 [place] % (Auto) 5.9 Eos % (Auto) 0.2 Baso % (Auto) 0.2 Neut # (Auto) 1.5 L Lymph # (Auto) 0.3 L [place] # (Auto) 0.1 Eos # (Auto) 0.0 Baso # (Auto) 0.0 WBC Differential Manual diff final Diff Scan Seg Neuts % (Manual) 52 Band Neuts % (Manual) 31 H Lymphocytes % (Manual) 13 Monocytes % (Manual) 4 Abs Neuts (Manual) 1.7 L Nucleated RBCs/100 WBC 2 H Differential Comment . Toxic Granulation Toxic Vacuolation Present H Dohle Bodies Platelet Estimate Low L Platelet Morphology Enlarged H Ovalocytes PT INR APTT Fibrinogen Puncture Site Right radial Patient Temperature 98.6 O2 Saturation 88 L* ABG pH 7.47 H ABG pCO2 27 L ABG pO2 58 L* ABG HCO3 19 L ABG O2 Content 12.8 ABG Base Excess -4.1 L ABG Methemoglobin 1.4 Frankie Test Present VBG pH VBG pCO2 VBG pO2 VBG HCO3 VBG O2 Saturation VBG O2 Content VBG Base Excess VBG Carboxyhemoglobin VBG Methemoglobin Hemoglobin 10.3 L Carboxyhemoglobin 1.4 O2 Delivery Device Ventilator Vent Setting Aprv/bi Inspired O2 100 Critical Value Yes Sodium Potassium Chloride Carbon Dioxide Anion Gap BUN Creatinine Estimated GFR POC Glucose Random Glucose Lactic Acid Calcium Prot Corrected Calcium Phosphorus Magnesium Total Bilirubin AST ALT Alkaline Phosphatase Ammonia 14 Total Protein Albumin Urine Color Urine Clarity Urine pH Ur Specific [place] Urine Protein Urine Glucose (UA) Urine Ketones Urine Occult Blood Urine Nitrate Urine Bilirubin Urine Urobilinogen Ur Leukocyte Esterase Urine RBC Urine WBC Urine Bacteria Hyaline Casts Urine Mucus Urine Yeast Ur Yeast w Hyphae Micro UA Comment Ur Microscopic Review Urine Culture Comments Blood Type Antibody Screen Antibody Identification Antigen Identification Direct Antiglob Test MTS Gel Crossmatch 03/16/18 03/16/18 03/16/18 03:42 05:19 06:59 WBC RBC Hgb Hct MCV MCH MCHC RDW Plt Count MPV Prelim Diff (Auto) Neut % (Auto) Lymph % (Auto) [place] % (Auto) Eos % (Auto) Baso % (Auto) Neut # (Auto) Lymph # (Auto) [place] # (Auto) Eos # (Auto) Baso # (Auto) WBC Differential Diff Scan Seg Neuts % (Manual) Band Neuts % (Manual) Lymphocytes % (Manual) Monocytes % (Manual) Abs Neuts (Manual) Nucleated RBCs/100 WBC Differential Comment Toxic Granulation Toxic Vacuolation Dohle Bodies Platelet Estimate Platelet Morphology Ovalocytes PT 40.1 H D INR 4.0 APTT 99.7 H* D Fibrinogen Puncture Site Right radial Patient Temperature 98.6 O2 Saturation 94 ABG pH 7.42 ABG pCO2 28 L ABG pO2 84 ABG HCO3 18 L ABG O2 Content 16.6 ABG Base Excess -5.8 L ABG Methemoglobin 1.3 Frankie Test Present VBG pH VBG pCO2 VBG pO2 VBG HCO3 VBG O2 Saturation VBG O2 Content VBG Base Excess VBG Carboxyhemoglobin VBG Methemoglobin Hemoglobin 12.6 Carboxyhemoglobin 1.0 O2 Delivery Device Ventilator Vent Setting Bilevel/aprv Inspired O2 100 Critical Value No Sodium 143 Potassium 3.6 Chloride 108 H Carbon Dioxide 21.5 Anion Gap 14 BUN 29 H Creatinine 0.94 Estimated GFR 81 L POC Glucose Random Glucose 96 Lactic Acid Calcium 7.2 L* Prot Corrected Calcium 7.8 L Phosphorus 3.0 Magnesium 1.6 Total Bilirubin 0.8 AST 66 H ALT 40 Alkaline Phosphatase 68 Ammonia Total Protein 5.9 L Albumin 1.6 L Urine Color Urine Clarity Urine pH Ur Specific [place] Urine Protein Urine Glucose (UA) Urine Ketones Urine Occult Blood Urine Nitrate Urine Bilirubin Urine Urobilinogen Ur Leukocyte Esterase Urine RBC Urine WBC Urine Bacteria Hyaline Casts Urine Mucus Urine Yeast Ur Yeast w Hyphae Micro UA Comment Ur Microscopic Review Urine Culture Comments Blood Type Antibody Screen Antibody Identification Antigen Identification Direct Antiglob Test MTS Gel Crossmatch 03/16/18 03/16/18 03/16/18 13:14 17:02 23:10 WBC RBC Hgb Hct MCV MCH MCHC RDW Plt Count MPV Prelim Diff (Auto) Neut % (Auto) Lymph % (Auto) [place] % (Auto) Eos % (Auto) Baso % (Auto) Neut # (Auto) Lymph # (Auto) [place] # (Auto) Eos # (Auto) Baso # (Auto) WBC Differential Diff Scan Seg Neuts % (Manual) Band Neuts % (Manual) Lymphocytes % (Manual) Monocytes % (Manual) Abs Neuts (Manual) Nucleated RBCs/100 WBC Differential Comment Toxic Granulation Toxic Vacuolation Dohle Bodies Platelet Estimate Platelet Morphology Ovalocytes PT 60.3 H D INR 6.0 H* APTT 105.3 H* Fibrinogen Puncture Site Patient Temperature O2 Saturation ABG pH ABG pCO2 ABG pO2 ABG HCO3 ABG O2 Content ABG Base Excess ABG Methemoglobin Frankie Test VBG pH VBG pCO2 VBG pO2 VBG HCO3 VBG O2 Saturation VBG O2 Content VBG Base Excess VBG Carboxyhemoglobin VBG Methemoglobin Hemoglobin Carboxyhemoglobin O2 Delivery Device Vent Setting Inspired O2 Critical Value Sodium Potassium Chloride Carbon Dioxide Anion Gap BUN Creatinine Estimated GFR POC Glucose 85 133 H Random Glucose Lactic Acid Calcium Prot Corrected Calcium Phosphorus Magnesium Total Bilirubin AST ALT Alkaline Phosphatase Ammonia Total Protein Albumin Urine Color Urine Clarity Urine pH Ur Specific [place] Urine Protein Urine Glucose (UA) Urine Ketones Urine Occult Blood Urine Nitrate Urine Bilirubin Urine Urobilinogen Ur Leukocyte Esterase Urine RBC Urine WBC Urine Bacteria Hyaline Casts Urine Mucus Urine Yeast Ur Yeast w Hyphae Micro UA Comment Ur Microscopic Review Urine Culture Comments Blood Type Antibody Screen Antibody Identification Antigen Identification Direct Antiglob Test MTS Gel Crossmatch 03/17/18 03/17/18 03/17/18 04:51 04:51 05:27 WBC 5.0 RBC 3.56 L Hgb 11.2 L Hct 35.6 L MCV 99.8 D MCH 31.5 MCHC 31.6 L RDW 24.0 H Plt Count 115 L MPV 11.5 H Prelim Diff (Auto) Slide review pending Neut % (Auto) 90.5 H Lymph % (Auto) 7.0 L [place] % (Auto) 2.0 Eos % (Auto) 0.4 Baso % (Auto) 0.1 Neut # (Auto) 4.5 Lymph # (Auto) 0.4 L [place] # (Auto) 0.1 Eos # (Auto) 0.0 Baso # (Auto) 0.0 WBC Differential Manual diff final Diff Scan Seg Neuts % (Manual) 64 Band Neuts % (Manual) 26 H Lymphocytes % (Manual) 10 Monocytes % (Manual) Abs Neuts (Manual) 4.5 Nucleated RBCs/100 WBC 1 H Differential Comment . Toxic Granulation 2+ H Toxic Vacuolation Dohle Bodies Present H Platelet Estimate Low L Platelet Morphology Enlarged H Ovalocytes 1+ H PT INR APTT Fibrinogen Puncture Site Patient Temperature O2 Saturation ABG pH ABG pCO2 ABG pO2 ABG HCO3 ABG O2 Content ABG Base Excess ABG Methemoglobin Frankie Test VBG pH VBG pCO2 VBG pO2 VBG HCO3 VBG O2 Saturation VBG O2 Content VBG Base Excess VBG Carboxyhemoglobin VBG Methemoglobin Hemoglobin Carboxyhemoglobin O2 Delivery Device Vent Setting Inspired O2 Critical Value Sodium 138 Potassium 4.9 D Chloride 106 Carbon Dioxide 11.4 L D Anion Gap 21 H BUN 52 H Creatinine 1.93 H Estimated GFR 35 L POC Glucose 122 H Random Glucose 126 H Lactic Acid Calcium 6.5 L* Prot Corrected Calcium 7.3 L* Phosphorus 7.3 H D Magnesium 2.2 D Total Bilirubin 2.2 H AST 7475 H ALT 2730 H Alkaline Phosphatase 92 Ammonia Total Protein 5.4 L Albumin 1.4 L Urine Color Urine Clarity Urine pH Ur Specific [place] Urine Protein Urine Glucose (UA) Urine Ketones Urine Occult Blood Urine Nitrate Urine Bilirubin Urine Urobilinogen Ur Leukocyte Esterase Urine RBC Urine WBC Urine Bacteria Hyaline Casts Urine Mucus Urine Yeast Ur Yeast w Hyphae Micro UA Comment Ur Microscopic Review Urine Culture Comments Blood Type Antibody Screen Antibody Identification Antigen Identification Direct Antiglob Test MTS Gel Crossmatch 03/17/18 03/17/18 03/17/18 07:50 09:33 09:33 WBC RBC Hgb Hct MCV MCH MCHC RDW Plt Count MPV Prelim Diff (Auto) Neut % (Auto) Lymph % (Auto) [place] % (Auto) Eos % (Auto) Baso % (Auto) Neut # (Auto) Lymph # (Auto) [place] # (Auto) Eos # (Auto) Baso # (Auto) WBC Differential Diff Scan Seg Neuts % (Manual) Band Neuts % (Manual) Lymphocytes % (Manual) Monocytes % (Manual) Abs Neuts (Manual) Nucleated RBCs/100 WBC Differential Comment Toxic Granulation Toxic Vacuolation Dohle Bodies Platelet Estimate Platelet Morphology Ovalocytes PT 152.5 H D INR 15.4 H* APTT 141.7 H* D Fibrinogen 443 H Puncture Site Right radial Patient Temperature 98.6 O2 Saturation ABG pH ABG pCO2 ABG pO2 ABG HCO3 ABG O2 Content ABG Base Excess ABG Methemoglobin Frankie Test VBG pH 7.07 L* VBG pCO2 41 L VBG pO2 35 VBG HCO3 11 L* VBG O2 Saturation 45 L VBG O2 Content 6.6 L VBG Base Excess -16.8 L VBG Carboxyhemoglobin 0.5 VBG Methemoglobin 0.9 Hemoglobin 10.5 L Carboxyhemoglobin O2 Delivery Device Ventilator Vent Setting Bilevel/aprv Inspired O2 80 Critical Value Yes Sodium Potassium Chloride Carbon Dioxide Anion Gap BUN Creatinine Estimated GFR POC Glucose Random Glucose Lactic Acid Calcium Prot Corrected Calcium Phosphorus Magnesium Total Bilirubin AST ALT Alkaline Phosphatase Ammonia Total Protein Albumin Urine Color Urine Clarity Urine pH Ur Specific [place] Urine Protein Urine Glucose (UA) Urine Ketones Urine Occult Blood Urine Nitrate Urine Bilirubin Urine Urobilinogen Ur Leukocyte Esterase Urine RBC Urine WBC Urine Bacteria Hyaline Casts Urine Mucus Urine Yeast Ur Yeast w Hyphae Micro UA Comment Ur Microscopic Review Urine Culture Comments Blood Type Antibody Screen Antibody Identification Antigen Identification Direct Antiglob Test MTS Gel Crossmatch 03/17/18 03/17/18 09:33 09:33 WBC RBC Hgb Hct MCV MCH MCHC RDW Plt Count MPV Prelim Diff (Auto) Neut % (Auto) Lymph % (Auto) [place] % (Auto) Eos % (Auto) Baso % (Auto) Neut # (Auto) Lymph # (Auto) [place] # (Auto) Eos # (Auto) Baso # (Auto) WBC Differential Diff Scan Seg Neuts % (Manual) Band Neuts % (Manual) Lymphocytes % (Manual) Monocytes % (Manual) Abs Neuts (Manual) Nucleated RBCs/100 WBC Differential Comment Toxic Granulation Toxic Vacuolation Dohle Bodies Platelet Estimate Platelet Morphology Ovalocytes PT INR APTT Fibrinogen Puncture Site Patient Temperature O2 Saturation ABG pH ABG pCO2 ABG pO2 ABG HCO3 ABG O2 Content ABG Base Excess ABG Methemoglobin Frankie Test VBG pH VBG pCO2 VBG pO2 VBG HCO3 VBG O2 Saturation VBG O2 Content VBG Base Excess VBG Carboxyhemoglobin VBG Methemoglobin Hemoglobin Carboxyhemoglobin O2 Delivery Device Vent Setting Inspired O2 Critical Value Sodium 139 Potassium 5.3 H Chloride 106 Carbon Dioxide 13.2 L Anion Gap 20 H BUN 55 H Creatinine 2.07 H Estimated GFR 32 L POC Glucose Random Glucose 102 Lactic Acid 9.9 H* Calcium 6.5 L* Prot Corrected Calcium 7.2 L* Phosphorus Magnesium Total Bilirubin AST ALT Alkaline Phosphatase Ammonia Total Protein 5.6 L Albumin Urine Color Urine Clarity Urine pH Ur Specific [place] Urine Protein Urine Glucose (UA) Urine Ketones Urine Occult Blood Urine Nitrate Urine Bilirubin Urine Urobilinogen Ur Leukocyte Esterase Urine RBC Urine WBC Urine Bacteria Hyaline Casts Urine Mucus Urine Yeast Ur Yeast w Hyphae Micro UA Comment Ur Microscopic Review Urine Culture Comments Blood Type Antibody Screen Antibody Identification Antigen Identification Direct Antiglob Test MTS Gel Crossmatch Result Diagrams: 03/16/18 03:42 03/17/18 09:33 Microbiology: Microbiology 03/15/18 08:50 Gram Stain - Final Sputum - Tracheal Aspirate Sputum Culture - Preliminary Pseudomonas aeruginosa Multidrug Resistant gram negative rods 03/15/18 10:25 Aerobic Blood Culture - Preliminary Blood - Peripheral No growth in 2 days Anaerobic Blood Culture - Preliminary No growth in 2 days 03/15/18 10:30 Aerobic Blood Culture - Preliminary Blood - Peripheral Yeast - ID to follow Anaerobic Blood Culture - Preliminary No growth in 2 days 03/17/18 00:27 Gram Stain - Final Sputum - Oral Tracheal Aspirate 03/15/18 09:54 Urine Culture - Preliminary Catheterized Urine Yeast - ID to follow Procedures: 02/05 left IJ placement 02/05 retrograde left heart cath, stent placement, IABP placement 02/05 intubated 02/19 extubated 02/23 reintubated 02/28 PEG tube placed 03/03 trach Assessment and Plan - Disease Oriented Problem List (1) Hypokalemia (2) Cardiogenic shock (3) CAD (coronary artery disease) (4) Ventricular fibrillation Pertinent Non-Medical Issues: Psychosocial: On disability. 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 Spiritual: Zoroastrianism, non-nondenominational. Windows Software Developer has visited, they also have alevism job training specialist visiting. Legal: Pt not capacitated to make medical decisions. Unclear if he will regain capacity. Per [place] statutes decision making would fall to as proxy. Ethical issues impacting care: none identified Important Contacts: Maria Isabel Tolentino [phone] sister Yvonne Valdivia [phone] Prognosis: 62 yo male s/p aortic valve replacement 2012 who suffered significant NSTEMI, EF <20% on presentation, troponins up to 32. Echo also showed global hypokinesis. Not clear how much of heart failure was present prior to NSTEMI. s /p heart cath, LAD stenting complicated by vasospasm, placement and subsequent removal of IABP. 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 He has had several runs of v fib and v tach requiring chest compressions, shocks. He has underlying COPD and was having activity intolerance prior to this event. He was reintubated. His prognosis for recovery is poor; chances of returning to baseline nearly nil. Unlikely he would tolerate rehab. He remains at high risk for continued complications including but not limited to recurrent arrhythmias, multi-organ injury. He is declining. He is hospice appropriate should goals be in line with comfort. Code Status: Alternative Code (intubation only) Plan: - LEGAL DECISON MAKER - Pt not capacitated to make medical decisions, and he will not regain this capacity. [place] statutes decision making would fall to as proxy. - CODE STATUS-DO NOT RESUSCITATE - GOALS -03/17/18: The patient's does want him to be comfortable, and she would like us to keep him on some pain medicine. She notes that he has had pain for years and does not want his final hours/days to be painful now.. - SYMPTOMS - * dyspnea - multifactorial - hx COPD, EF < 20%, class 4 heart failure. Management via ventilator and opiates. * pain - multifactorial, lines, ET tube, catheters, acute and chronic pain. Will add some scheduled hydromorphone at 's request. - Palliative care will continue to follow during hospital course. Time Spent Total Floor Time (mins): 47 Face to Face Time (mins): 13 >50% Time in Counseling or Coordination of Care: Yes (d/w RN and w RT) Attestation Attestation: To help prompt me to consider important information that might be impacting today's encounter and assessment, information from prior notes written by myself or my colleagues may have been "brought forward" into today's note. My signature on this note, however, is an attestation that I personally performed the exam, history, and/or decision-making noted today, and, unless otherwise indicated, the interactions with patient, family, and staff as well as the review of records all occurred today. I also attest that the listed assessment and stated plan reflect my best clinical judgment today based on the combination of historical information, prior notes, and today's exam/ interactions. When time spent is documented, it refers only to time spent today by the signer, or if indicated, combined time spent today by collaborating physician/nurse practitioner.
[2018-03-17] MEDS ORDERED: HYDROmorphone PF Inj 2 MG/ML Vial IV.PUSH SCH (13:00)
--- NOTE | 2018-03-17 13:04 | P.PNONC ---
Subjective Interval history: Afebrile Pt's at bedside, tearful. Per SENIOR ADMINISTRATIVE ASSOCIATE, the pt has been made comfort care. No bleeding Objective Vital Signs/Intake & Output: Vital Signs 03/16/18 13:00 03/16/18 13:01 03/16/18 13:54 Temperature Pulse Rate 87 87 83 Respiratory Rate 34 H 35 H 34 H Blood Pressure 87/48 L 134/69 Pulse Oximetry 98 98 94 L 03/16/18 14:00 03/16/18 15:00 03/16/18 16:00 Temperature 98.5 F Pulse Rate 83 80 80 Respiratory Rate 34 H 31 H 31 H Blood Pressure 97/57 L Pulse Oximetry 99 98 100 03/16/18 16:30 03/16/18 16:35 03/16/18 16:55 Temperature Pulse Rate 80 80 Respiratory Rate 33 H 32 H 24 Blood Pressure 47/32 L Pulse Oximetry 90 L 03/16/18 17:00 03/16/18 17:07 03/16/18 17:15 Temperature Pulse Rate 80 79 85 Respiratory Rate 28 H 32 H 24 Blood Pressure 130/67 125/58 L Pulse Oximetry 70 L 76 L 98 03/16/18 17:30 03/16/18 17:47 03/16/18 18:00 Temperature Pulse Rate 87 89 89 Respiratory Rate 28 H 32 H 31 H Blood Pressure 97/57 L 114/70 115/71 Pulse Oximetry 97 97 97 03/16/18 18:15 03/16/18 18:30 03/16/18 18:45 Temperature Pulse Rate 87 85 83 Respiratory Rate 23 24 21 Blood Pressure 110/70 95/66 L 93/66 L Pulse Oximetry 96 96 96 03/16/18 19:00 03/16/18 19:01 03/16/18 19:15 Temperature Pulse Rate 82 82 81 Respiratory Rate 21 23 27 H Blood Pressure 108/74 101/53 L Pulse Oximetry 96 96 95 03/16/18 19:30 03/16/18 19:45 03/16/18 19:55 Temperature Pulse Rate 80 81 Respiratory Rate 22 24 33 H Blood Pressure 98/58 L 97/65 L Pulse Oximetry 96 96 96 03/16/18 20:00 03/16/18 20:01 03/16/18 20:02 Temperature 97 F L Pulse Rate 82 83 83 Respiratory Rate 21 24 26 H Blood Pressure 112/6 L 104/51 L Pulse Oximetry 98 97 96 03/16/18 20:15 03/16/18 20:30 03/16/18 20:45 Temperature Pulse Rate 81 82 85 Respiratory Rate 26 H 25 H 28 H Blood Pressure 100/64 101/65 100/58 L Pulse Oximetry 97 97 98 03/16/18 21:00 03/16/18 21:15 03/16/18 21:30 Temperature Pulse Rate 84 85 85 Respiratory Rate 27 H 29 H 28 H Blood Pressure 98/57 L 98/55 L 100/61 Pulse Oximetry 94 L 94 L 94 L 03/16/18 21:45 03/16/18 22:00 03/16/18 22:15 Temperature Pulse Rate 84 84 84 Respiratory Rate 28 H 28 H 28 H Blood Pressure 103/65 99/64 L 99/64 L Pulse Oximetry 94 L 95 95 03/16/18 22:25 03/16/18 22:30 03/16/18 22:45 Temperature Pulse Rate 83 84 Respiratory Rate 35 H 27 H 27 H Blood Pressure 101/61 93/62 L Pulse Oximetry 96 96 95 03/16/18 23:00 03/16/18 23:15 03/16/18 23:26 Temperature Pulse Rate 86 86 86 Respiratory Rate 26 H 27 H 40 H Blood Pressure 137/86 105/55 L Pulse Oximetry 96 96 03/16/18 23:30 03/16/18 23:45 03/17/18 00:00 Temperature 97.6 F Pulse Rate 87 87 87 Respiratory Rate 14 15 21 Blood Pressure 97/52 L 90/58 L 90/59 L Pulse Oximetry 96 96 96 03/17/18 00:15 03/17/18 00:30 03/17/18 01:50 Temperature Pulse Rate 87 92 H Respiratory Rate 22 10 L 35 H Blood Pressure 93/56 L 87/69 L Pulse Oximetry 96 96 95 03/17/18 02:00 03/17/18 03:26 03/17/18 04:00 Temperature Pulse Rate 89 89 89 Respiratory Rate 33 H Blood Pressure Pulse Oximetry 03/17/18 05:04 03/17/18 06:00 03/17/18 08:55 Temperature Pulse Rate 91 H Respiratory Rate 31 H 26 H Blood Pressure Pulse Oximetry 95 94 L Intake & Output 03/16/18 03/17/18 03/17/18 18:59 06:59 18:59 Intake Total 600 / 600 972.8 / 972.8 248 / 248 Output Total 250 / 250 1050 / 1050 Balance 350 / 350 -77.2 / -77.2 248 / 248 Weight 158 lb 11.725 oz Intake: IV 600 / 600 852.8 / 852.8 248 / 248 Versed Inj 50 mg In 50 ml @ 2 23.5 / 23.5 MG/HR 2 mls/hr IV.CONT TITRATE PRN Rx#:[id number] Pitressin Inj 40 UNIT In D5W 220 / 220 Inj 98 ML @ 0.01 UNITS/MIN 1.5 mls/hr IV.CONT TITRATE PRN Rx#: [id number] Maxipime Inj 2,000 MG In NS Inj 100 / 100 100 / 100 100 / 100 100 ML @ 200 mls/hr IV.SIG Q8H [facility] Rx#:[id number] Mycamine Inj 150 MG In NS Inj 100 / 100 100 ML @ 100 mls/hr IV.SIG Q24H [facility] Rx#:[id number] Levophed-Dextrose 4 mg/250 ml 352 / 352 148 / 148 Drip 4 mg In 250 ml @ 2 MCG/MIN 7.5 mls/hr IV.SIG TITRATE PRN Rx#:[id number] NS Inj 500 ML @ 999 mls/hr IV. 500 / 500 SIG .Q31M [facility] Rx#:[id number] fentaNYL 10 mcg/mL Premix Drip 57.3 / 57.3 2,500 mcg In 250 ml @ 50 MCG/HR 5 mls/hr IV.SIG TITRATE PRN Rx #:[id number] Tube Feeding 0 / 0 Water Bolus Amount 120 / 120 Output: Urine 150 / 150 Stool 50 / 50 700 / 700 Urine Amount (Catheter) 100 / 100 Indwelling Urethral Catheter 100 / 100 Gastric Drainage 100 / 100 200 / 200 Left Upper Quadrant 100 / 100 Right Nare Nasogastric Tube 200 / 200 Other: Date of Last Bowel Movement 03/15/18 03/17/18 03/17/18 Result Diagrams: 03/16/18 03:42 03/17/18 09:33 Laboratory Results: Laboratory Results - last 24 hr 03/15/18 03/16/18 03/16/18 09:54 13:14 17:02 WBC RBC Hgb Hct MCV MCH MCHC RDW Plt Count MPV Prelim Diff (Auto) Neut % (Auto) Lymph % (Auto) [place] % (Auto) Eos % (Auto) Baso % (Auto) Neut # (Auto) Lymph # (Auto) [place] # (Auto) Eos # (Auto) Baso # (Auto) WBC Differential Seg Neuts % (Manual) Band Neuts % (Manual) Lymphocytes % (Manual) Abs Neuts (Manual) Nucleated RBCs/100 WBC Differential Comment Toxic Granulation Dohle Bodies Platelet Estimate Platelet Morphology Ovalocytes PT 60.3 H D INR 6.0 H* APTT 105.3 H* Fibrinogen Puncture Site Patient Temperature VBG pH VBG pCO2 VBG pO2 VBG HCO3 VBG O2 Saturation VBG O2 Content VBG Base Excess VBG Carboxyhemoglobin VBG Methemoglobin Hemoglobin O2 Delivery Device Vent Setting Inspired O2 Critical Value Sodium Potassium Chloride Carbon Dioxide Anion Gap BUN Creatinine Estimated GFR POC Glucose 85 Random Glucose Lactic Acid Calcium Prot Corrected Calcium Phosphorus Magnesium Total Bilirubin AST ALT Alkaline Phosphatase Total Protein Albumin Urine Color Yellow Urine Clarity Turbid H Urine pH 5.0 Ur Specific [place] 1.008 Urine Protein 30 H Urine Glucose (UA) Negative Urine Ketones Negative Urine Occult Blood Small H Urine Nitrate Negative Urine Bilirubin Negative Urine Urobilinogen Less than 2 Ur Leukocyte Esterase Negative Urine RBC Urine WBC 17 H Urine Bacteria Occasional H Hyaline Casts 8 Urine Mucus Few H Urine Yeast Many H Ur Yeast w Hyphae Occasional H Micro UA Comment Culture indicated Urine Culture Comments Culture indicated 03/16/18 03/17/18 03/17/18 23:10 04:51 04:51 WBC 5.0 RBC 3.56 L Hgb 11.2 L Hct 35.6 L MCV 99.8 D MCH 31.5 MCHC 31.6 L RDW 24.0 H Plt Count 115 L MPV 11.5 H Prelim Diff (Auto) Slide review pending Neut % (Auto) 90.5 H Lymph % (Auto) 7.0 L [place] % (Auto) 2.0 Eos % (Auto) 0.4 Baso % (Auto) 0.1 Neut # (Auto) 4.5 Lymph # (Auto) 0.4 L [place] # (Auto) 0.1 Eos # (Auto) 0.0 Baso # (Auto) 0.0 WBC Differential Manual diff final Seg Neuts % (Manual) 64 Band Neuts % (Manual) 26 H Lymphocytes % (Manual) 10 Abs Neuts (Manual) 4.5 Nucleated RBCs/100 WBC 1 H Differential Comment . Toxic Granulation 2+ H Dohle Bodies Present H Platelet Estimate Low L Platelet Morphology Enlarged H Ovalocytes 1+ H PT INR APTT Fibrinogen Puncture Site Patient Temperature VBG pH VBG pCO2 VBG pO2 VBG HCO3 VBG O2 Saturation VBG O2 Content VBG Base Excess VBG Carboxyhemoglobin VBG Methemoglobin Hemoglobin O2 Delivery Device Vent Setting Inspired O2 Critical Value Sodium 138 Potassium 4.9 D Chloride 106 Carbon Dioxide 11.4 L D Anion Gap 21 H BUN 52 H Creatinine 1.93 H Estimated GFR 35 L POC Glucose 133 H Random Glucose 126 H Lactic Acid Calcium 6.5 L* Prot Corrected Calcium 7.3 L* Phosphorus 7.3 H D Magnesium 2.2 D Total Bilirubin 2.2 H AST 7475 H ALT 2730 H Alkaline Phosphatase 92 Total Protein 5.4 L Albumin 1.4 L Urine Color Urine Clarity Urine pH Ur Specific [place] Urine Protein Urine Glucose (UA) Urine Ketones Urine Occult Blood Urine Nitrate Urine Bilirubin Urine Urobilinogen Ur Leukocyte Esterase Urine RBC Urine WBC Urine Bacteria Hyaline Casts Urine Mucus Urine Yeast Ur Yeast w Hyphae Micro UA Comment Urine Culture Comments 03/17/18 03/17/18 03/17/18 05:27 07:50 09:33 WBC RBC Hgb Hct MCV MCH MCHC RDW Plt Count MPV Prelim Diff (Auto) Neut % (Auto) Lymph % (Auto) [place] % (Auto) Eos % (Auto) Baso % (Auto) Neut # (Auto) Lymph # (Auto) [place] # (Auto) Eos # (Auto) Baso # (Auto) WBC Differential Seg Neuts % (Manual) Band Neuts % (Manual) Lymphocytes % (Manual) Abs Neuts (Manual) Nucleated RBCs/100 WBC Differential Comment Toxic Granulation Dohle Bodies Platelet Estimate Platelet Morphology Ovalocytes PT INR APTT 141.7 H* D Fibrinogen Puncture Site Right radial Patient Temperature 98.6 VBG pH 7.07 L* VBG pCO2 41 L VBG pO2 35 VBG HCO3 11 L* VBG O2 Saturation 45 L VBG O2 Content 6.6 L VBG Base Excess -16.8 L VBG Carboxyhemoglobin 0.5 VBG Methemoglobin 0.9 Hemoglobin 10.5 L O2 Delivery Device Ventilator Vent Setting Bilevel/aprv Inspired O2 80 Critical Value Yes Sodium Potassium Chloride Carbon Dioxide Anion Gap BUN Creatinine Estimated GFR POC Glucose 122 H Random Glucose Lactic Acid Calcium Prot Corrected Calcium Phosphorus Magnesium Total Bilirubin AST ALT Alkaline Phosphatase Total Protein Albumin Urine Color Urine Clarity Urine pH Ur Specific [place] Urine Protein Urine Glucose (UA) Urine Ketones Urine Occult Blood Urine Nitrate Urine Bilirubin Urine Urobilinogen Ur Leukocyte Esterase Urine RBC Urine WBC Urine Bacteria Hyaline Casts Urine Mucus Urine Yeast Ur Yeast w Hyphae Micro UA Comment Urine Culture Comments 03/17/18 03/17/18 03/17/18 09:33 09:33 09:33 WBC RBC Hgb Hct MCV MCH MCHC RDW Plt Count MPV Prelim Diff (Auto) Neut % (Auto) Lymph % (Auto) [place] % (Auto) Eos % (Auto) Baso % (Auto) Neut # (Auto) Lymph # (Auto) [place] # (Auto) Eos # (Auto) Baso # (Auto) WBC Differential Seg Neuts % (Manual) Band Neuts % (Manual) Lymphocytes % (Manual) Abs Neuts (Manual) Nucleated RBCs/100 WBC Differential Comment Toxic Granulation Dohle Bodies Platelet Estimate Platelet Morphology Ovalocytes PT 152.5 H D INR 15.4 H* APTT Fibrinogen 443 H Puncture Site Patient Temperature VBG pH VBG pCO2 VBG pO2 VBG HCO3 VBG O2 Saturation VBG O2 Content VBG Base Excess VBG Carboxyhemoglobin VBG Methemoglobin Hemoglobin O2 Delivery Device Vent Setting Inspired O2 Critical Value Sodium 139 Potassium 5.3 H Chloride 106 Carbon Dioxide 13.2 L Anion Gap 20 H BUN 55 H Creatinine 2.07 H Estimated GFR 32 L POC Glucose Random Glucose 102 Lactic Acid 9.9 H* Calcium 6.5 L* Prot Corrected Calcium 7.2 L* Phosphorus Magnesium Total Bilirubin AST ALT Alkaline Phosphatase Total Protein 5.6 L Albumin Urine Color Urine Clarity Urine pH Ur Specific [place] Urine Protein Urine Glucose (UA) Urine Ketones Urine Occult Blood Urine Nitrate Urine Bilirubin Urine Urobilinogen Ur Leukocyte Esterase Urine RBC Urine WBC Urine Bacteria Hyaline Casts Urine Mucus Urine Yeast Ur Yeast w Hyphae Micro UA Comment Urine Culture Comments Culture Results: Microbiology 03/15/18 09:54 Urine Culture - Final Catheterized Urine Kaylen tropicalis 03/15/18 08:50 Gram Stain - Final Sputum - Tracheal Aspirate Sputum Culture - Preliminary Pseudomonas aeruginosa Multidrug Resistant gram negative rods 03/15/18 10:25 Aerobic Blood Culture - Preliminary Blood - Peripheral No growth in 2 days Anaerobic Blood Culture - Preliminary No growth in 2 days 03/15/18 10:30 Aerobic Blood Culture - Preliminary Blood - Peripheral Yeast - ID to follow Anaerobic Blood Culture - Preliminary No growth in 2 days 03/17/18 00:27 Gram Stain - Final Sputum - Oral Tracheal Aspirate Medications: Active Medications Generic Name Dose Route Start Last Admin Trade Name Freq PRN Reason Stop Dose Admin Acetaminophen 650 mg 02/14/18 09:23 03/15/18 11:37 Tylenol Liq PO 650 mg Q6H PRN Administration FEVER Acetaminophen 650 mg 03/06/18 08:26 03/14/18 17:29 Tylenol PO 650 mg Q4H PRN Administration SEE LABEL COMMENTS Albuterol 2.5 mg 02/05/18 00:00 03/17/18 03:26 Albuterol Neb (Prn) NEB 2.5 mg Q2HR NEB PRN Administration SHORTNESS OF BREATH/WHEEZING Amiodarone HCl 400 mg 02/11/18 12:00 03/16/18 20:20 Cordarone G-TUBE Not Given BID [facility] Artificial Tears 1 drops 02/14/18 21:00 03/16/18 20:20 Genteal Severe Dry Eye Relief 0.3% Opth Gel EACH EYE 1 drops BID [facility]EN Administration Chlorhexidine Gluconate 15 ml 02/06/18 08:00 03/17/18 09:21 Peridex 0.12% Oral Kit OROPHARYNG 15 ml BID@0800,2000 [facility] Administration Clopidogrel Bisulfate 75 mg 02/06/18 09:00 02/25/18 09:13 Plavix PO 75 mg DAILY [facility] Administration Dextrose 50 ml 02/13/18 09:27 03/01/18 06:02 D50w Vial IV.PUSH 50 ml UNSCH PRN Administration PER HYPOGLYCEMIA PROTOCOL Digoxin 250 mcg 02/07/18 09:00 02/11/18 15:41 Lanoxin Inj IV.PUSH Not Given DAILY [facility] Duloxetine HCl 90 mg 02/05/18 09:00 02/11/18 11:18 Cymbalta PO Not Given DAILY [facility] Hydrocortisone Sodium Succinate 100 mg 03/17/18 07:00 03/17/18 09:04 Solucortef Inj IV.PUSH 100 mg Q8HR [facility] Administration Argatroban 250 mg/ Sodium 250 mls @ 7.56 mls/hr 03/02/18 15:00 03/16/18 13:00 Chloride IV.CONT 0 mcg/kg/min TITRATE PRN 0 mls/hr Per Protocol Titration Protocol 2 MCG/KG/MIN Micafungin Sodium 150 mg/ 100 mls @ 100 mls/hr 03/15/18 22:00 03/17/18 00:40 Sodium Chloride IV.SIG Infused Q24H [facility] Infusion Fentanyl 2,500 mcg in 250 mls @ 5 mls/hr 03/16/18 00:04 03/17/18 05:29 Fentanyl 10 Mcg/Ml Premix Drip IV.SIG 50 mcg/hr TITRATE PRN 5 mls/hr Per Protocol Titration Protocol 50 MCG/HR Midazolam HCl 50 mg in 50 mls @ 2 mls/hr 03/16/18 08:58 03/17/18 05:29 Versed Inj IV.CONT 2 mg/hr TITRATE PRN 2 mls/hr Per Protocol Titration Protocol 2 MG/HR Vasopressin 40 unit/ Dextrose 100 mls @ 1.5 mls/hr 03/16/18 09:13 03/17/18 05 :29 IV.CONT Infused TITRATE PRN Titration Per Protocol Protocol 0.01 UNITS/MIN Vancomycin HCl 1,250 mg/ 262.5 mls @ 250 mls/hr 03/16/18 16:00 03/16/18 18:42 Sodium Chloride IV.SIG 250 mls/hr Q18H [facility] Administration Norepinephrine Bitartrate 4 mg in 250 mls @ 7.5 mls/hr 03/17/18 00:54 09:06 Levophed-Dextrose 4 Mg/250 Ml Drip IV.SIG 12 mcg/min TITRATE PRN 45 mls/hr Per Protocol Administration Protocol 2 MCG/MIN Insulin Aspart 0 unit 02/13/18 12:00 03/17/18 05:28 Novolog Insulin Correctional Sugar Inj SQ Not Given Q6HR [facility] Protocol Lactulose 30 ml 02/05/18 00:00 02/05/18 08:38 Lactulose Liq PO 30 ml DAILY PRN Administration SEVERE CONSITIPATION Lansoprazole 30 mg 02/15/18 09:00 03/17/18 09:16 Prevacid Solutab NG/OG 30 mg DAILY [facility] Administration Morphine Sulfate 4 mg 03/05/18 08:12 03/15/18 21:11 Morphine Inj IV.PUSH 4 mg Q3H PRN Administration breakthrough pain Multivitamins 1 tab 02/05/18 09:00 03/16/18 09:18 Theragran PO 1 tab DAILY [facility] Administration Pregabalin 150 mg 02/04/18 23:50 03/17/18 09:16 Lyrica PO 150 mg BID [facility] Administration Senna/Docusate Sodium 1 tab 02/05/18 09:00 03/17/18 09:17 Linda-Colace PO Not Given BID [facility] Sodium Chloride 2 ml 02/05/18 09:00 03/17/18 09:16 Ns Flush IV.FLUSH 2 ml BID [facility] Administration Vancomycin HCl 500 mg 02/11/18 16:00 03/17/18 05:26 Vancomycin Po G-TUBE 500 mg Q6HR [facility] Administration Whey 1 packet 02/08/18 13:00 03/17/18 09:20 Beneprotein Powder G-TUBE Not Given TID [facility] Objective Remarks: GENERAL: Mechanically ventilated obtunded older male resting in bed with spouse at bedside SKIN: Pale, warm and diaphoretic. HEAD: Normocephalic. EYES: No scleral icterus. No injection or drainage. NECK: Tracheostomy midline. No bleeding. CARDIOVASCULAR: +S1/S2. Tachycardia RESPIRATORY: Bilateral rhonchi. +vent. On 80% FiO2 GASTROINTESTINAL: Feeding tube LUQ. EXTREMITIES: Anasarca MUSCULOSKELETAL: Generalized weakness, decreased muscle tone. NEUROLOGICAL: Patient obtunded. Currently not following commands Assessment/Plan - Plan 62-year-old male admitted to the hospital in late January for fever and hypotension. He was found to have septic shock. He has C. difficile colitis. Hematology consulted for thrombocytopenia. 1. Argatroban drip has been off since yesterday morning. Unfortunately INR, APTT continues to increase. Noted senior mobile solutions architect has ordered vitamin K. Currently no bleeding. 2. Patient's spouse is more open to the idea of comfort measures only. The patient is increasingly ill and appears to be actively dying. I have stopped the argatroban drip for now. 3. Monitor APTT, INR if goals remain treatment oriented. - Attending Statement The exam, history, and the medical decision-making described in the above note were completed with the assistance of the mid-level provider. I reviewed and agree with the findings presented. I attest that I had a [id number] encounter with the patient on the same day, and personally performed and documented my assessment and findings in the medical record.Pt is declining. No bleeding reported. Argatroban is on hold due to coagulopathy and possible procedure. Monitor closely for bleeding.
[2018-03-17] MEDS: Hypromellose 0.3% Opth Gel 10 GM Bottle EACH EYE SCH (13:13)
[2018-03-17] MEDS ORDERED: Phytonadione Inj 10 MG in Sodium Chlor 0.9% Inj 50 ML IV.SIG ONE (13:30)
[2018-03-17] MEDS ORDERED: Ceftazidime/Avibactam Inj 1.25 GM in Sodium Chlor 0.9% Inj 50 ML IV.SIG SCH (14:00)
[2018-03-17] MEDS: Vancomycin Inj 1,250 MG in Sodium Chlor 0.9% Inj 250 ML IV.SIG SCH (14:48)
[2018-03-18] MEDS ORDERED: Pharmacy Ordered Lab Info OTHER ONE (03:45)
--- NOTE | 2018-03-20 08:33 | MD ---
cc: Hope Cordova MD DATE OF DISCHARGE: 03/17/2018 HOSPITAL COURSE: The patient is a 62-year-old male with a history of a 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 He was initially admitted to [facility] from 01/23/2018-01/31/2018 for MSSA bacteremia. He was discharged with right upper extremity PICC line, receiving cefazolin and gentamicin. The patient presented to the ED on 08/07/2017 with severe sepsis, atrial flutter with a rapid ventricular response, and the patient was started on amiodarone drip in [place] prior to transfer. During his hospital course, he was seen by multiple consultants, including cardiology, gastroenterology, hematology, infectious disease, nephrology, neurologic, and palliative care team. His ICU course was complicated with respiratory failure, requiring mechanical ventilation, and the patient eventually underwent percutaneous tracheostomy placement on 03/03/2018. He was also placed on fentanyl and Versed infusion for sedation. He had an MRI of the brain on 02/16/2018, which showed a new small focal acute infarction, right cerebral vertex and also left cerebral vertex. Head CT on 02/15/2018 showed no acute findings. The patient had an EEG on 03/16/2018 which showed diffuse encephalopathy. He was being followed by Dr. Judd from the neurology service. The patient also had an echocardiogram on 02/05/2018, which showed a severely reduced LV function with EF of less than 20%, diffuse hypokinesis. Bioprosthetic valve noted. He underwent a cardiac catheterization on 02/05/2018 with 2 bare metal stents placed. The patient was on aspirin and amiodarone. He was also being treated for MSSA bacteremia and pneumonia. His sputum culture was positive for pseudomonas and Klebsiella pneumoniae. The patient went into septic shock and was started on multiple pressors, Levophed and vasopressin. In addition, he had severe lactic acidosis with a lactic acid level of 9.9. He was seen by infectious disease and was on broad-spectrum antibiotics. In addition, the patient was on stress-dose steroids. Also, he had worsening renal function; however, his creatinine increased to 1.93 from 0.94 and had severe metabolic acidosis and was subsequently placed on bicarbonate drip and was given IV pushes of bicarbonate. He had thrombocytopenia. Heparin and Plavix were placed on hold and hematology was following and the patient was placed on argatroban. However, due to coagulopathy, it was discontinued and was seen by Dr. Gr from hematology. His coagulation profile on 03/17/2018 showed worsening coagulopathy with an INR of 15.4 and PT 152.5 and his fibrinogen level was 443. The patient was on sliding scale insulin to maintain euglycemia. After palliative care spoke to the family, the patient was changed to alternative CODE status. On 03/17/2018, he was found to be in asystole and the patient was pronounced. He was alternative CODE status. The patient on 03/17/2018. MD CHERI Alaniz/benjy , 05:44 PM , 05:53 PM
== END 2018-03-17 15:37 | disposition expired ==
LOC: NEDDLT 17:43 → N03 22:35 → HCVI 02-05 21:23 → HIMC 02-13 20:51
PROVIDERS: ADMIT Emergency Medicine; ATTEND Emergency Medicine